=== PATIENT | female | born 1990 | race Caucasian/White ===

== ENCOUNTER 2017-08-29 17:35 | Emergency (ER) | payer OTHER ==
[~2017-08-29] VITALS: Ht 182.9 cm; Wt 183.7 kg
[~2017-08-29 17:35] MED LIST: ALBUTEROL SULF8.5 GM INH; ALBUTEROL2.5 MG/0.5 INH; ALBUTEROL2.5 MG/3 M INH; AMBIEN10 MG PO; AMOXICILLIN500 MG PO; ASPIRIN EC325 MG PO; ATIVAN1 MG PO; CIPRO500 MG PO; CYMBALTA60 MG PO; DOXYCYCLINE HY100 MG PO; FLOVENT DISKU100 MCG INH; HYDROCODON-ACE1 EA14 PO; IMITREX25 MG PO; KETOROLAC TROME10 MG PO; LAMICTAL200 MG PO; LEVOTHYROXINE25 MCG PO; METFORMIN HCL500 MG PO; NAPROXEN500 MG PO; NORCO 5-325 TA1 EACH PO; NORCO 7.5-3251 EACH PO; OMEPRAZOLE20 MG PO; PREDNISONE20 MG PO; PRENATAL PLUS1 EAC2 PO; PROAIR HFA8.5 GM INH; PROPRANOLOL HCL20 MG PO; REGLAN10 MG PO; TESSALON PERLE100 MG PO; TRAZODONE HCL50 MG PO; XANAX0.25 MG PO
[2017-08-29] MEDS ORDERED: QVAR8.7 GM (18:40)
[2017-08-29] MEDS ORDERED: TOPAMAX25 MG PO (18:41)
[2017-09-28] MEDS ORDERED: PANTOPRAZOLE SO40 MG PO (06:21)
== END 2017-08-29 22:16 | disposition home or self-care (01) ==
LOC: ED 17:35
DX: L03.311 Cellulitis of abdominal wall (principal); K21.9 Gastro-esophageal reflux disease without esophagitis; F41.9 Anxiety disorder, unspecified; F32.9 Major depressive disorder, single episode, unspecified; Z88.8 Allergy status to other drugs, medicaments and biological substances; Z88.1 Allergy status to other antibiotic agents; Z88.6 Allergy status to analgesic agent; Z88.5 Allergy status to narcotic agent; Z79.899 Other long term (current) drug therapy; Z79.84 Long term (current) use of oral hypoglycemic drugs
CPT/HCPCS: 76705; 99284

== ENCOUNTER 2018-06-01 08:04 | Emergency (ER) | payer OTHER ==
[~2018-06-01] VITALS: Ht 182.9 cm; Wt 172.4 kg
[~2018-06-01 08:04] MED LIST changes: +FERROUS GLUCON PO; +PANTOPRAZOLE SO40 MG PO; +QVAR8.7 GM; +RANITIDINE HCL150 M1 PO; +TOPAMAX25 MG PO; +VITAMIN D250000 UNIT PO
--- OUTSIDE RECORDS SUMMARY | 2018-06-01 08:06 | XMS ---
PreManage Notification: GAVI GREENE Security Sports Media Events No recent Security Events currently on file CRITERIA MET - [facility] CARE PROVIDERS Alisha Monae Current PAC PHONE: Unknown Deb has no Care Guidelines for this patient. E.Mani VISIT COUNT (12 MO.) 1 Radha Gómez M.C. 3 MARCEL Gomez TOTAL 4 NOTE: Visits indicate total known visits. ED/UCC VISIT TRACKING (12 MO.) 06/01/2018 08:04 MARCEL Maldonado TYPE: Emergency COMPLAINT: - ABD PAIN 03/07/2018 19:40 MARCEL Maldonado TYPE: Emergency COMPLAINT: - VOMITING,ABD PAIN DIAGNOSES: - Unspecified abdominal pain - Allergy status to other drugs, medicaments and biological substances status - Unspecified asthma, uncomplicated - medical terminologist (current) use of oral hypoglycemic drugs - Morbid (severe) obesity due to excess calories - Other fpc (current) drug therapy - Allergy status to narcotic agent status - Allergy status to other antibiotic agents status - Bipolar disorder, unspecified - Gastro-esophageal reflux disease without esophagitis - Migraine, unspecified, not intractable, without status migrainosus - Nausea with vomiting, unspecified 09/01/2017 13:43 [facility] Nicole KRAMER TYPE: Emergency DIAGNOSES: - Cutaneous abscess of abdominal wall - Skin Redness With Swelling - Cellulitis 08/29/2017 17:[address] [facility] [place] TYPE: Emergency COMPLAINT: - RASH/ABSCESS DIAGNOSES: - Localized swelling, mass and lump, trunk - SHELTER (CURRENT) USE OF ORAL HYPOGLYCEMIC DRUGS - Cellulitis of abdominal wall - senior living (current) use of oral hypoglycemic drugs - Allergy status to narcotic agent status - Allergy status to other antibiotic agents status - Allergy status to other drugs, medicaments and biological substances status - Other fpc (current) drug therapy - Allergy status to analgesic agent status - Anxiety disorder, unspecified - Gastro-esophageal reflux disease without esophagitis - Major depressive disorder, single episode, unspecified INPATIENT VISIT TRACKING (12 MO.) No inpatient visits to display in this time frame [email or web address]
[2018-06-01] MEDS ORDERED: ULTRAM50 MG PO (10:49)
[2018-06-01] MEDS ORDERED: BACTRIM DS TAB1 EACH PO (10:49)
== END 2018-06-01 11:10 | disposition home or self-care (01) ==
LOC: ED 08:04
DX: N39.0 Urinary tract infection, site not specified (principal); J45.909 Unspecified asthma, uncomplicated; F31.9 Bipolar disorder, unspecified; K21.9 Gastro-esophageal reflux disease without esophagitis; F41.9 Anxiety disorder, unspecified; Z88.1 Allergy status to other antibiotic agents; Z88.6 Allergy status to analgesic agent; Z88.5 Allergy status to narcotic agent; Z88.8 Allergy status to other drugs, medicaments and biological substances; Z79.84 Long term (current) use of oral hypoglycemic drugs; Z79.899 Other long term (current) drug therapy
CPT/HCPCS: 74177; 80053; 81001; 84703; 85025; 96361; 99284-25; J1170; J2060; J2405; J7030; Q9967

== ENCOUNTER 2018-10-15 15:59 | Observation (INO) | payer OTHER ==
[~2018-10-15] VITALS: Ht 182.9 cm; Wt 162.9 kg
--- NOTE | ~2018-10-15 | DS ---
[facility] [address], [place] [address] Draft ADMISSION DATE: 10/15/2018 DISCHARGE DATE: 10/16/2018 REASON FOR ADMISSION: This morbidly obese 27-year-old white woman has undergone Nadya-en-Y gastric bypass operation by Dr. Norton at [facility] with concurrent laparoscopic cholecystectomy approximately 3 weeks ago. She has had issues postoperatively of difficulty with tolerating oral intake and presented to the emergency room yesterday with protracted nausea, vomiting, and dehydration. She was admitted for further evaluation and care. PHYSICAL EXAMINATION: GENERAL: Shows a morbidly obese white woman, considered about 360 pounds. She has multiple tattoos and piercings. CHEST: Clear. HEART: Regular without murmur. ABDOMEN: Obese, but soft. Incisions are healing well. No sign of infection. There is no focal tenderness. Mild periumbilical tenderness is noted, however. HOSPITAL COURSE: Her emergency room evaluation by Dr. Smith included a CT scan of the abdomen. This showed no sign of internal hernia, free air, or calamitous complication from operation. I was consulted regarding the patient's issues and Dr. Norton, her surgeon in [place] at [facility] had advised an upper GI and hospitalization if possible for rehydration. She was aggressively rehydrated. Notably, her CBC at presentation and subsequently was normal as were her liver enzymes and so on. Her labs remained normal. An amylase was found to be normal as well. On the second day of hospitalization, she underwent upper GI and limited small bowel follow-through. This showed reasonable emptying of the gastric pouch proximally and the area of the Nadya-en-Y jejunojejunostomy showed no sign of impediment to flow either. Admittedly, the duodenal limb was not visualized nor would it necessarily be expected to. She was given liquids once again after long discussion as to the small capacity of her gastric pouch. I conferred with Dr. Norton on the phone regarding these findings who concurred with this approach. The patient has been noted to be somewhat noncompliant initially after operation and advancing her diet a bit too aggressively for her postoperative protocol. PATIENT NAME: GAVI GREENE DISCHARGE SUMMARY DATE OF : 86 REPORT #: [id number] PHYSICIAN: LEYLA FARRELL MD PCP: BHAVIN MCDANIEL PA-C REPORT IS CONFIDENTIAL AND NOT TO BE RELEASED WITHOUT AUTHORIZATION [facility] [address], [place] [address] Draft She will be discharged home and encouraged to maintain hydration with small amounts of liquids. She will resume her protein shakes and the dietitian of Dr. Norton will additionally confer with the patient to tailor a better program for her oral intake so as to avoid recurrent problems. Her discharge medications will remain the same. Of note, she did have 5 white cells per high-power field on the urinalysis, although not frankly suspicious for urinary tract infection necessarily (leukocyte esterase negative). She was given one dose of Ancef as she did complain of urinary burning. MEDICATIONS: Discharge medications will include propranolol 20 mg tablets p.o. b.i.d., Topamax 50 mg p.o. b.i.d., pantoprazole 40 mg p.o. daily, Zofran 4 mg tablet q.6 hours as needed for nausea, Percocet 5/325 one p.o. as needed for pain, and metformin 1000 mg b.i.d. DISCHARGE DIAGNOSES: 1. Postoperative Nadya-en-Y gastric bypass for morbid obesity with dehydration. 2. Protracted vomiting and poor adjustment to gastric bypass operation 3 weeks ago (Dr. Norton at [facility]). 3. Normal upper GI small bowel follow-through following CT scan. FOLLOWUP PLAN: She will return to the ongoing care of her primary provider, [facility] and will be coordinating with her operating surgeon, Dr. Norton and her dietitian for further instructions on dietary modifications. MD JUAN Garibay/RENUKA /[id number] cc: Dr. Norton [facility] Copies: PATIENT NAME: GAVI GREENE DISCHARGE SUMMARY DATE OF : [birth year] REPORT #: [id number] PHYSICIAN: LEYLA FARRELL MD PCP: BHAVIN MCDANIEL PA-C REPORT IS CONFIDENTIAL AND NOT TO BE RELEASED WITHOUT AUTHORIZATION [facility] [address] [place], [place] [address] Draft ~ PATIENT NAME: GAVI GREENE DISCHARGE SUMMARY DATE OF : [birth year] REPORT #: [id number] PHYSICIAN: LEYLA FARRELL MD PCP: BHAVIN MCDANIEL PA-C REPORT IS CONFIDENTIAL AND NOT TO BE RELEASED WITHOUT AUTHORIZATION
[~2018-10-15 15:59] MED LIST changes: +BACTRIM DS TAB1 EACH PO; -TOPAMAX25 MG PO; +TOPAMAX50 MG PO; +ULTRAM50 MG PO
--- OUTSIDE RECORDS SUMMARY | 2018-10-15 16:02 | XMS ---
PreManage Notification: GAVI GREENE Security Personnel And Payroll Technician Events No recent Security Events currently on file CRITERIA MET - [facility] Guidelines - PDMP CARE PROVIDERS BHAVIN MCDANIEL Physician 06/04/2018-Current PHONE: [phone] Bhavin Monae Treatment Current PAC PHONE: Unknown Guidelines Source: [facility] [place] Guidelines Date: 09/24/2018 Care Coordination: Mental health services are being provided by [employer].\T\nbsp; Please contact [employer] with mental health concerns.\T\nbsp; Aaron/Stewart Dominguez: [phone]\T\nbsp; Reece: [phone]. E.D. VISIT COUNT (12 MO.) 3 MARCEL Gomez TOTAL 3 NOTE: Visits indicate total known visits. ED/UCC VISIT TRACKING (12 MO.) 10/15/2018 15:59 [facility] Chavez [place] TYPE: Emergency COMPLAINT: - WEAKNESS, POSS DEHYDRATION 06/01/2018 08:04 [facility] [place] TYPE: Emergency COMPLAINT: - ABD PAIN DIAGNOSES: - Anxiety disorder, unspecified - Allergy status to other drugs, medicaments and biological substances status - Other long-term (current) drug therapy - Bipolar disorder, unspecified - Gastro-esophageal reflux disease without esophagitis - Allergy status to other antibiotic agents status - Allergy status to analgesic agent status - Unspecified asthma, uncomplicated - Urinary tract infection, site not specified - halfway (current) use of oral hypoglycemic drugs - Dysuria - Allergy status to narcotic agent status 03/07/2018 19:40 [facility] [place] TYPE: Emergency COMPLAINT: - VOMITING,ABD PAIN DIAGNOSES: - Unspecified abdominal pain - Allergy status to other drugs, medicaments and biological substances status - Unspecified asthma, uncomplicated - halfway (current) use of oral hypoglycemic drugs - Morbid (severe) obesity due to excess calories - Other long-term (current) drug therapy - Allergy status to narcotic agent status - Allergy status to other antibiotic agents status - Bipolar disorder, unspecified - Gastro-esophageal reflux disease without esophagitis - Migraine, unspecified, not intractable, without status migrainosus - Nausea with vomiting, unspecified INPATIENT VISIT TRACKING (12 MO.) 09/24/2018 10:29 [facility] TYPE: Surgery DIAGNOSES: 39344. Morbid (severe) obesity due to excess calories 87634. Morbid (severe) obesity due to excess calories 35101. Body mass index (BMI) 50-59.9 , adult [email or web address]
[2018-10-15] MEDS ORDERED: PERCOCET 5-3251 EACH PO (16:50)
[2018-10-15] MEDS ORDERED: ZOFRAN4 MG PO (16:50)
[2018-10-15] MEDS ORDERED: GLUCOPHAGE1000 MG PO (16:51)
--- NOTE | 2018-10-16 09:00 | HP ---
[facility] [address], [place] [address] Signed ADMISSION DATE: 10/15/2018 REASON FOR ADMISSION: Dehydration, protracted nausea and vomiting, and history of gastric bypass operation. HISTORY OF PRESENT ILLNESS: This 27-year-old morbidly obese white woman, presented to the emergency room where she was evaluated by Dr. Smith today. She presented with complaints of protracted nausea and vomiting and inability to tolerate oral intake. Three weeks ago, she underwent a bariatric operation, presumably gastric bypass (Nadya-en-Y type I suspect) as well as concurrent laparoscopic cholecystectomy. This was at [facility] by Dr. Norton. The patient noted within two weeks of operation marked epigastric pain following meals. She had been taking Zofran sublingual for nausea and other remedies as outlined by Dr. Norton who has managed her over the phone generally speaking. Unfortunately, she continues to have inability to tolerate oral intake to any great degree. She has had pudding and other such things, but those are not tolerated and even liquids pose a problem now. She has had no fever, chills, or anything to suggest sepsis. Her blood sugars have been about 114 according to the patient who does check them from time to time. Her evaluation in emergency room included a CBC which was normal with a white count of 7.5 and hematocrit of 43.4, platelets of 198,000. Chem profile is normal. Creatinine is 0.78. Liver enzymes are normal. Her urinalysis was also normal, though she did have 5 white cells per high-power field. A CT scan was additionally performed showing patency of gastroenteric and enteroenteric anastomosis without sign of small bowel obstruction. There is considered moderate distention of the fundal portion of the gastric remnant with narrowing of the gastric lumen proximal to this segment suggesting partial or complete obstruction of the gastric remnant at the cardia. My review of the CT scan does not show herniation of the fundus through the hiatus or anything of that sort and I saw no sign of internal herniation. There was nonobstructive left renal calyceal stones and no sign of biliary ductal dilatation. There was surgical absence of the gallbladder as would be expected. REVIEW OF SYSTEMS: The patient herself says she has had vague abdominal pain mostly in the epigastric area, sometimes in the right subcostal, but most generally in the central abdomen in the region of the umbilicus. She has had no hematemesis or blood per rectum. No fever or chills. Electronically Signed By: LEYLA FARRELL MD 10/16/18 0900 PATIENT NAME: GAVI GREENE HISTORY AND PHYSICAL DATE OF : [birth year] REPORT #: [id number] PHYSICIAN: LEYLA FARRELL MD PCP: BHAVIN MCDANIEL PA-C REPORT IS CONFIDENTIAL AND NOT TO BE RELEASED WITHOUT AUTHORIZATION [facility] [address], [place] [address] Signed PHYSICAL EXAMINATION: GENERAL: A morbidly obese white woman who does not look systemically toxic. HEENT: Mucous membranes are dry, though she has had a liter of crystalloid solution. Trachea is midline. CHEST: Shows normal respiratory excursion without wheeze or rhonchi. HEART: Regular. ABDOMEN: Quite massively obese. She has multiple laparoscopic trocar scars that appear uninfected. There appears to be no sign of hernia. She does have vague tenderness, some of it in the epigastric area. She does not have generalized peritonitis. EXTREMITIES: Show no clubbing, cyanosis, or edema. SKIN: Shows multiple tattoos. She has various piercings of her nose and elsewhere. LABORATORY DATA: I have reviewed the CT scan and lab studies myself. ASSESSMENT: She has had symptoms suggestive of a gastric outlet obstruction from the gastric pouch, though this short of time from operation, edematous changes could account for this. Dr. Smith, emergency room physician, did call Dr. Norton at [facility] who happens to be on-call tonight who asked that the patient be admitted for rehydration and consideration for upper GI tomorrow. So as to avoid the expense and other difficulties of transfer for further evaluation and care at [facility], we will accommodate that approach. She shows no sign of internal herniation or other calamitous problem and the symptoms have been going on for several weeks. If contrast studies are not particularly demonstrative of the source of the problem, endoscopic evaluation maybe required. I do not foresee need for re operation acutely, as she may simply be adjusting to the new normal of a very small gastric pouch; Much will depend upon ugi findings tomorrow. MD JUAN Garibay/JAZMINL /[id number] Electronically Signed By: LEYLA FARRELL MD 10/16/18 0900 PATIENT NAME: GAVI GREENE HISTORY AND PHYSICAL DATE OF : 86 REPORT #: [id number] PHYSICIAN: LEYLA FARRELL MD PCP: BHAVIN MCDANIEL PA-C REPORT IS CONFIDENTIAL AND NOT TO BE RELEASED WITHOUT AUTHORIZATION [facility] [address] [place], [place] [address] Signed cc: Tyler Smith MD Department of Bariatric Surgery Dr. Norton at [facility] Copies: TYLER SMITH MD ~ Electronically Signed By: LEYLA FARRELL MD 10/16/18 0900 PATIENT NAME: GAVI GREENE HISTORY AND PHYSICAL DATE OF : [birth year] REPORT #: [id number] PHYSICIAN: ELYLA FARRELL MD PCP: BHAVIN MCDANIEL PA-C REPORT IS CONFIDENTIAL AND NOT TO BE RELEASED WITHOUT AUTHORIZATION
== END 2018-10-16 14:15 | disposition home or self-care (01) ==
LOC: ED 15:59 → MS 16:00
PROVIDERS: ADMIT Surgery
DX: K91.0 Vomiting following gastrointestinal surgery (principal); E86.0 Dehydration; K21.9 Gastro-esophageal reflux disease without esophagitis; E66.01 Morbid (severe) obesity due to excess calories; G43.909 Migraine, unspecified, not intractable, without status migrainosus; Z98.84 Bariatric surgery status; Z88.1 Allergy status to other antibiotic agents; Z88.5 Allergy status to narcotic agent; Z88.8 Allergy status to other drugs, medicaments and biological substances; Z79.84 Long term (current) use of oral hypoglycemic drugs; Z79.891 Long term (current) use of opiate analgesic; Z79.899 Other long term (current) drug therapy
CPT/HCPCS: 36415; 74177; 74249; 80053; 81001; 82150; 83690; 83735; 84703; 85025; 96361; 96372; 96375; 96376; 99285-25; G0378; J0131; J0690; J1170; J1644; J2405; J2550; J3411; J7030; J7120; Q9967

== ENCOUNTER 2019-06-03 19:42 | Emergency (ER) | payer OTHER ==
[~2019-06-03] VITALS: Ht 180.3 cm; Wt 104.3 kg
[~2019-06-03 19:42] MED LIST changes: +GLUCOPHAGE1000 MG PO; +PERCOCET 5-3251 EACH PO; +PROMETHAZINE HC25 M1 PO; +ZOFRAN4 MG PO
--- OUTSIDE RECORDS SUMMARY | 2019-06-03 19:44 | XMS ---
PreManage Notification: GAVI GREENE Security Air Brush Decorator Events No recent Security Events currently on file CRITERIA MET - [facility] Guidelines - PDMP CARE PROVIDERS BHAVIN MCDANIEL Physician 06/04/2018-Current PHONE: [phone] Bhavin Monae Treatment Current PAC PHONE: Unknown Guidelines Source: [email or web address] Guidelines Date: 09/24/2018 Care Coordination: Mental health services are being provided by [employer].\T\nbsp; Please contact [employer] with mental health concerns.\T\nbsp; Aaron/Stewart Dominguez: \T\nbsp; Reece: [phone]. E.D. VISIT COUNT (12 MO.) [address] [facility] TOTAL 2 NOTE: Visits indicate total known visits. ED/UCC VISIT TRACKING (12 MO.) 06/03/2019 19:42 [facility] [place] TYPE: Emergency COMPLAINT: - POST OP ISSUE 10/15/2018 15:59 [facility] [place] TYPE: Emergency COMPLAINT: - WEAKNESS, POSS DEHYDRATION INPATIENT VISIT TRACKING (12 MO.) 10/15/2018 16:00 MARCEL Maldonado TYPE: Observation COMPLAINT: - ABD PAIN DIAGNOSES: - Gastro-esophageal reflux disease without esophagitis - Morbid (severe) obesity due to excess calories - Bariatric surgery status - Vomiting following gastrointestinal surgery - Nausea with vomiting, unspecified - halfway (current) use of opiate analgesic - Allergy status to narcotic agent status - Dehydration - halfway (current) use of oral hypoglycemic drugs - Other care home (current) drug therapy - Allergy status to other antibiotic agents status - Migraine, unsp, not intractable, without status migrainosus - Allergy status to oth drug/meds/biol subst status 09/24/2018 10:29 [facility] TYPE: Surgery DIAGNOSES: 31211. Morbid (severe) obesity due to excess calories 83168. Morbid (severe) obesity due to excess calories 53577. Body mass index (BMI) 50.0-59.9, adult [email or web address]
[2019-06-03] MEDS ORDERED: HYDROXYZINE HCL25 MG PO (20:10)
[2019-06-03] MEDS ORDERED: PROZAC40 MG PO (20:11)
[2019-06-03] MEDS ORDERED: LAMICTAL25 MG PO (20:11)
[2019-06-03] MEDS ORDERED: CATAPRES0.1 MG PO (20:12)
[2019-06-03] MEDS ORDERED: MIRTAZAPINE7.5 MG PO (20:12)
[2019-06-03] MEDS ORDERED: QVAR REDIHALE10.6 G1 INH (20:12)
[2019-06-03] MEDS ORDERED: ACETAMINOPHEN500 MG PO (20:57)
[2019-06-03] MEDS ORDERED: ADULT GLYCERIN1 EACH PR (20:57)
[2019-06-03] MEDS ORDERED: DILAUDID1 MG/ML GT (20:58)
[2019-06-03] MEDS ORDERED: PROCHLORPERAZIN10 MG (20:59)
[2019-06-03] MEDS ORDERED: ONDANSETRON ODT4 MG PO (20:59)
[2019-06-03] MEDS ORDERED: GABAPENTIN250 MG/5 M GT (21:01)
[2019-06-03] MEDS ORDERED: TRANSDERM-SCOP1 EACH TD (21:02)
[2019-06-03] MEDS ORDERED: DIAZEPAM5 MG/5 M1 PO (21:02)
[2019-06-03] MEDS ORDERED: MINERAL OIL EN133 ML PR (21:04)
[2019-06-03] MEDS ORDERED: MILK OF MA400 MG/5 M PO (21:04)
[2019-06-03] MEDS ORDERED: NARCAN4 MG INH (21:04)
[2019-06-03] MEDS ORDERED: PROMETHAZINE HC25 M1 PO (21:06)
== END 2019-06-03 23:13 | disposition home or self-care (01) ==
LOC: ED 19:42
DX: K94.23 Gastrostomy malfunction (principal); J45.909 Unspecified asthma, uncomplicated; F31.9 Bipolar disorder, unspecified; K21.9 Gastro-esophageal reflux disease without esophagitis; G43.909 Migraine, unspecified, not intractable, without status migrainosus; F32.9 Major depressive disorder, single episode, unspecified; F41.9 Anxiety disorder, unspecified; Z88.1 Allergy status to other antibiotic agents; Z88.8 Allergy status to other drugs, medicaments and biological substances; Z88.5 Allergy status to narcotic agent; Z79.899 Other long term (current) drug therapy
CPT/HCPCS: 80053; 85025; 96361; 96374; 96375; 96376; 99283-25; J1170; J3360; J7030

== ENCOUNTER 2019-06-06 20:51 | Emergency (ER) | payer OTHER ==
[~2019-06-06] VITALS: Ht 180.3 cm; Wt 104.3 kg
[~2019-06-06 20:51] MED LIST changes: +ACETAMINOPHEN500 MG PO; +ADULT GLYCERIN1 EACH PR; +CATAPRES0.1 MG PO; +DIAZEPAM5 MG/5 M1 PO; +DILAUDID1 MG/ML GT; +GABAPENTIN250 MG/5 M GT; +HYDROXYZINE HCL25 MG PO; +LAMICTAL25 MG PO; +MILK OF MA400 MG/5 M PO; +MINERAL OIL EN133 ML PR; +MIRTAZAPINE7.5 MG PO; +NARCAN4 MG INH; +ONDANSETRON ODT4 MG PO; +PROCHLORPERAZIN10 MG; +PROZAC40 MG PO; +QVAR REDIHALE10.6 G1 INH; +TRANSDERM-SCOP1 EACH TD
--- OUTSIDE RECORDS SUMMARY | 2019-06-06 20:54 | XMS ---
PreManage Notification: GAVI GREENE Security Tilt Wall Supervisor Events No recent Security Events currently on file CRITERIA MET - [facility] - 2 Visits in 30 Days CARE PROVIDERS BHAVIN MCDANIEL Physician 06/04/2018-Current PHONE: [phone] Bhavin Monae Treatment Current PAC PHONE: Unknown Guidelines Source: [facility] [employer] [facility] Guidelines Date: 09/24/2018 Care Coordination: Mental health services are being provided by [employer].\T\nbsp; Please contact [employer] with mental health concerns.\T\nbsp; Aaron/Stewart Dominguez: \T\nbsp; Reece: [phone]. E.D. VISIT COUNT (12 MO.) 3 MARCEL Gomez TOTAL 3 NOTE: Visits indicate total known visits. ED/UCC VISIT TRACKING (12 MO.) 06/06/2019 20:52 [facility] [place] TYPE: Emergency COMPLAINT: - POST OP PROBLEM 06/03/2019 19:42 [facility] [place] TYPE: Emergency COMPLAINT: - POST OP ISSUE DIAGNOSES: - Other intermediate accountant (current) drug therapy - Anxiety disorder, unspecified - Gastrostomy malfunction - Major depressive disorder, single episode, unspecified - Allergy status to oth drug/meds/biol subst status - Allergy status to other antibiotic agents status - Allergy status to narcotic agent status - Unspecified asthma, uncomplicated - Migraine, unsp, not intractable, without status migrainosus - Bipolar disorder, unspecified - Gastro-esophageal reflux disease without esophagitis 10/15/2018 15:59 [facility] [place] TYPE: Emergency COMPLAINT: - WEAKNESS, POSS DEHYDRATION INPATIENT VISIT TRACKING (12 MO.) 10/15/2018 16:00 [facility] TYPE: Observation COMPLAINT: - ABD PAIN DIAGNOSES: - Gastro-esophageal reflux disease without esophagitis - Morbid (severe) obesity due to excess calories - Bariatric surgery status - Vomiting following gastrointestinal surgery - Nausea with vomiting, unspecified - MCC (current) use of opiate analgesic - Allergy status to narcotic agent status - Dehydration - MCC (current) use of oral hypoglycemic drugs - Other intermediate accountant (current) drug therapy - Allergy status to other antibiotic agents status - Migraine, unsp, not intractable, without status migrainosus - Allergy status to oth drug/meds/biol subst status 09/24/2018 10:29 [facility] TYPE: Surgery DIAGNOSES: 01844. Morbid (severe) obesity due to excess calories 30384. Morbid (severe) obesity due to excess calories 06206. Body mass index (BMI) 50.0-59.9, adult [email or web address]
[2019-06-06] MEDS ORDERED: BARIATRIC MV-I1 EACH PO (21:28)
[2019-06-06] MEDS ORDERED: HAIR SKIN NAIL1 EACH PO (21:28)
== END 2019-06-07 00:57 | disposition home or self-care (01) ==
LOC: ED 20:51
DX: Z48.01 Encounter for change or removal of surgical wound dressing (principal); K21.9 Gastro-esophageal reflux disease without esophagitis; G43.909 Migraine, unspecified, not intractable, without status migrainosus; J45.909 Unspecified asthma, uncomplicated; F41.9 Anxiety disorder, unspecified; F32.9 Major depressive disorder, single episode, unspecified; Z79.899 Other long term (current) drug therapy
CPT/HCPCS: 81001; 87077; 87088; 87186; 96372; 99283-25; J3010

== ENCOUNTER 2019-06-09 21:08 | Emergency (ER) | payer OTHER ==
[~2019-06-09] VITALS: Ht 180.3 cm; Wt 104.3 kg
[~2019-06-09 21:08] MED LIST changes: +BARIATRIC MV-I1 EACH PO; +HAIR SKIN NAIL1 EACH PO
--- OUTSIDE RECORDS SUMMARY | 2019-06-09 21:12 | XMS ---
PreManage Notification: GAVI GREENE Security Nnp Events No recent Security Events currently on file CRITERIA MET - [facility] Guidelines - PDMP CARE PROVIDERS BHAVIN MCDANIEL Physician 06/04/2018-Current PHONE: [phone] Bhavin Monae Treatment Current PAC PHONE: Unknown Guidelines Source: [facility] Guidelines Date: 09/24/2018 Care Coordination: Mental health services are being provided by [employer].\T\nbsp; Please contact [employer] with mental health concerns.\T\nbsp; Aaron/Stewart Dominguez: [phone]\T\nbsp; Reece: [phone]. E.D. VISIT COUNT (12 MO.) [address] [facility] TOTAL 4 NOTE: Visits indicate total known visits. ED/UCC VISIT TRACKING (12 MO.) 06/09/2019 21:09 [facility] [place] TYPE: Emergency COMPLAINT: - ABD PAIN/FEEDING TUBE PROBLEM 06/06/2019 20:52 [facility] TYPE: Emergency COMPLAINT: - POST OP PROBLEM 06/03/2019 19:42 [facility] TYPE: Emergency COMPLAINT: - POST OP ISSUE DIAGNOSES: - Other termite technician (current) drug therapy - Anxiety disorder, unspecified [...] surgery - Nausea with vomiting, unspecified - alf (current) use of opiate analgesic - Allergy status to narcotic agent status - Dehydration - alf (current) use of oral hypoglycemic drugs - Other termite technician (current) drug therapy - Allergy status to other antibiotic agents status - Migraine, unsp, not intractable, without status migrainosus - Allergy status to oth drug/meds/biol subst status 09/24/2018 10:29 [facility] TYPE: Surgery DIAGNOSES: 69487. Morbid (severe) obesity due to excess calories 70702. Morbid (severe) obesity due to excess calories 77325. Body mass index (BMI) 50.0-59.9, adult [email or web address]
== END 2019-06-09 23:26 | disposition home or self-care (01) ==
LOC: ED 21:08
DX: Z48.815 Encounter for surgical aftercare following surgery on the digestive system (principal); F31.9 Bipolar disorder, unspecified; K21.9 Gastro-esophageal reflux disease without esophagitis; G43.909 Migraine, unspecified, not intractable, without status migrainosus; F32.9 Major depressive disorder, single episode, unspecified; F41.9 Anxiety disorder, unspecified; Z88.8 Allergy status to other drugs, medicaments and biological substances; Z88.1 Allergy status to other antibiotic agents; Z88.5 Allergy status to narcotic agent; Z79.899 Other long term (current) drug therapy; Z79.891 Long term (current) use of opiate analgesic
CPT/HCPCS: 99283

== ENCOUNTER 2019-06-16 14:32 | Emergency (ER) | payer OTHER ==
[~2019-06-16] VITALS: Ht 180.3 cm; Wt 104.3 kg
--- OUTSIDE RECORDS SUMMARY | 2019-06-16 14:36 | XMS ---
PreManage Notification: GAVI GREENE Security Adobe Architect Events No recent Security Events currently on file CRITERIA MET - [facility] - Has Care Guidelines - PDMP - [facility] - 2 Visits in 30 Days CARE PROVIDERS BHAVIN MCDANIEL Physician 06/04/2018-Current PHONE: [phone] Bhavin Monae Treatment Current PAC PHONE: Unknown Guidelines Source: [facility] Guidelines Date: 09/24/2018 Care Coordination: Mental health services are being provided by [employer].\T\nbsp; Please contact [employer] with mental health concerns.\T\nbsp; Aaron/Stewart Dominguez: \T\nbsp; Reece: [phone]. E.D. VISIT COUNT (12 MO.) [address] [facility] TOTAL 5 NOTE: Visits indicate total known visits. ED/UCC VISIT TRACKING (12 MO.) 06/16/2019 14:33 [facility] TYPE: Emergency COMPLAINT: - ANXIETY 06/09/2019 21:09 [facility] TYPE: Emergency COMPLAINT: - ABD PAIN/FEEDING TUBE PROBLEM DIAGNOSES: - detention (current) use of opiate analgesic - Allergy status to oth drug/meds/biol subst status - Allergy status to narcotic agent status - Gastro-esophageal reflux disease without esophagitis - Encntr for surgical aftcr following surgery on the dgstv sys - Major depressive disorder, single episode, unspecified - Encntr for surgical aftcr following surgery on the dgstv sys - Bipolar disorder, unspecified - Allergy status to other antibiotic agents status - Migraine, unsp, not intractable, without status migrainosus - Other moth exterminator (current) drug therapy - Anxiety disorder, unspecified 06/06/2019 20:52 [facility] TYPE: Emergency COMPLAINT: - POST OP PROBLEM DIAGNOSES: - Gastro-esophageal reflux disease without esophagitis - Migraine, unsp, not intractable, without status migrainosus - Encounter for change or removal of surgical wound dressing - Other custodial (current) drug therapy - Encounter for change or removal of surgical wound dressing - Anxiety disorder, unspecified - Unspecified asthma, uncomplicated - Major depressive disorder, single episode, unspecified 06/03/2019 19:42 [facility] TYPE: Emergency COMPLAINT: - POST OP ISSUE DIAGNOSES: - Other custodial (current) drug therapy - Anxiety disorder, unspecified [...] surgery - Nausea with vomiting, unspecified - supervisor intermediates (current) use of opiate analgesic - Allergy status to narcotic agent status - Dehydration - detention (current) use of oral hypoglycemic drugs - Other custodial (current) drug therapy - Allergy status to other antibiotic agents status - Migraine, unsp, not intractable, without status migrainosus - Allergy status to oth drug/meds/biol subst status 09/24/2018 10:29 [facility] TYPE: Surgery DIAGNOSES: 59244. Morbid (severe) obesity due to excess calories 57939. Morbid (severe) obesity due to excess calories 42484. Body mass index (BMI) 50.0-59.9, adult [email or web address]
== END 2019-06-16 17:23 | disposition home or self-care (01) ==
LOC: ED 14:32
DX: R06.4 Hyperventilation (principal); R07.9 Chest pain, unspecified; J45.909 Unspecified asthma, uncomplicated; K21.9 Gastro-esophageal reflux disease without esophagitis; G43.909 Migraine, unspecified, not intractable, without status migrainosus; F32.9 Major depressive disorder, single episode, unspecified; Z88.8 Allergy status to other drugs, medicaments and biological substances; Z88.1 Allergy status to other antibiotic agents; Z88.5 Allergy status to narcotic agent; Z79.899 Other long term (current) drug therapy
CPT/HCPCS: 96374; 96375; 99284-25; J1170; J2060

== ENCOUNTER 2019-08-09 23:14 | Emergency (ER) | payer OTHER ==
[~2019-08-09] VITALS: Ht 180.3 cm; Wt 104.3 kg
--- OUTSIDE RECORDS SUMMARY | 2019-08-09 23:16 | XMS ---
PreManage Notification: GAVI GREENE Security Hvac Lead Events No recent Security Events currently on file CRITERIA MET - [facility] Guidelines - [facility] CARE PROVIDERS BHAVIN MCDANIEL Physician Basket Maker 06/04/2018-Current PHONE: [phone] LAKIA AGRAWAL Nurse Practitioner: Acute Care 06/17/2019-Current PHONE: [phone] Guidelines Source: [facility] Guidelines Date: 09/24/2018 Care Coordination: Mental health services are being provided by [facility].\T\nbsp; Please contact [facility] with mental health concerns.\T\nbsp; Aaron/Stewart Dominguez: \T\nbsp; Reece: [phone]. E.D. VISIT COUNT (12 MO.) [address] [facility] TOTAL 6 NOTE: Visits indicate total known visits. ED/UCC VISIT TRACKING (12 MO.) 08/09/2019 23:14 [facility] [place] TYPE: Emergency COMPLAINT: - FEEDING TUBE PROBLEM 06/16/2019 14:33 [facility] [place] TYPE: Emergency COMPLAINT: - ANXIETY DIAGNOSES: - Unspecified asthma, uncomplicated - Allergy status to other antibiotic agents status - Allergy status to narcotic agent status - Other intermission coordinator (current) drug therapy - Migraine, unspecified, not intractable, without status migrai - Allergy status to other drugs, medicaments and biological sub - Hyperventilation - Major depressive disorder, single episode, unspecified - Gastro-esophageal reflux disease without esophagitis - Anxiety disorder, unspecified - Chest pain, unspecified 06/09/2019 21:09 [facility] [place] TYPE: Emergency COMPLAINT: - ABD PAIN/FEEDING TUBE PROBLEM DIAGNOSES: - intermission coordinator (current) use of opiate analgesic - Allergy status to other drugs, medicaments and biological sub - Allergy status to narcotic agent status - Gastro-esophageal reflux disease without esophagitis - Encounter for surgical aftercare following surgery on the dig - Major depressive disorder, single episode, unspecified - Encounter for surgical aftercare following surgery on the dig - Bipolar disorder, unspecified - Allergy status to other antibiotic agents status - Migraine, unspecified, not intractable, without status migrai - Other senior care (current) drug therapy - Anxiety disorder, unspecified 06/06/2019 20:52 [facility] [place] TYPE: Emergency COMPLAINT: - POST OP PROBLEM DIAGNOSES: - Gastro-esophageal reflux disease without esophagitis - Migraine, unspecified, not intractable, without status migrai - Encounter for change or removal of surgical wound dressing - Other senior care (current) drug therapy - Encounter for change or removal of surgical wound dressing - Anxiety disorder, unspecified - Unspecified asthma, uncomplicated - Major depressive disorder, single episode, unspecified 06/03/2019 19:42 [facility] [place] TYPE: Emergency COMPLAINT: - POST OP ISSUE DIAGNOSES: - Other senior care (current) drug therapy - Anxiety disorder, unspecified - Gastrostomy malfunction - Major depressive disorder, single episode, unspecified - Allergy status to other drugs, medicaments and biological sub - Allergy status to other antibiotic agents status - Allergy status to narcotic agent status - Unspecified asthma, uncomplicated - Migraine, unspecified, not intractable, without status migrai - Bipolar disorder, unspecified - Gastro-esophageal reflux [...] surgery - Nausea with vomiting, unspecified - penitentiary (current) use of opiate analgesic - Allergy status to narcotic agent status - Dehydration - penitentiary (current) use of oral hypoglycemic drugs - Other senior care (current) drug therapy - Allergy status to other antibiotic agents status - Migraine, unspecified, not intractable, without status migrai - Allergy status to other drugs, medicaments and biological sub 09/24/2018 10:29 [facility] TYPE: Surgery DIAGNOSES: 37624. Morbid (severe) obesity due to excess calories 40230. Morbid (severe) obesity due to excess calories 68331. Body mass index (BMI) 50-59.9 , adult [email or web address]
[2019-08-09] MEDS ORDERED: GEODON20 MG PO (23:30)
== END 2019-08-10 00:31 | disposition home or self-care (01) ==
LOC: ED 23:14
DX: K94.29 Other complications of gastrostomy (principal); R10.9 Unspecified abdominal pain; K21.9 Gastro-esophageal reflux disease without esophagitis; J45.909 Unspecified asthma, uncomplicated; G43.909 Migraine, unspecified, not intractable, without status migrainosus; F41.9 Anxiety disorder, unspecified; F32.9 Major depressive disorder, single episode, unspecified; Z88.1 Allergy status to other antibiotic agents; Z88.5 Allergy status to narcotic agent; Z79.899 Other long term (current) drug therapy
CPT/HCPCS: 80053; 83690; 84703; 85025; 99283

== ENCOUNTER 2019-11-06 02:39 | Emergency (ER) | payer OTHER ==
[~2019-11-06] VITALS: Ht 180.3 cm; Wt 104.3 kg
--- OUTSIDE RECORDS SUMMARY | ~2019-11-06 | XMS | Encounter Summary ---
Demographics + + + | Address | [address] | | | [place] [address] | + + + | Home Phone | | + + + | Preferred Language | Unknown | + + + | Marital Status | | + + + | Church Affiliation | NRP | + + + | Race | White | + + + | Ethnic Group | Not or | + + + Author + + + | Author | [facility] | + + + | Organization | [facility] | + + + | Address | Unknown | + + + | Phone | Unavailable | + + + Support + + +---------+ + | Name | Relationship | Address | Phone | + + +---------+ + | Jeovanny Hernández | ECON | Unknown | | + + +---------+ + Care Team Providers + +------+ + | Care Associate Field Service Engineer Name | Role | Phone | + +------+ + | Alisha Stovall PA-C | PCP | | + +------+ + Encounter Details +--------+ + + + + | Date | Type | Department | Care Team | Description | +--------+ + + + + | 06/04/ | MyChart | Digestive Health | Kenan Norton, | photos | | 2020 | Encounter | [facility] [address] | MD [address] | | | | | [address] | [facility] [place] | | | | | for Health and | [address] | | | | | Healing, [address] | [phone] | | | | | [place], [place] | | | | | | [address] | | | | | | [phone] | | | +--------+ + + + + Social History + +-------+ [...] | +--------+ + + + + | 11/13/ | Office | Gastroenterology | Cassidy Schneider, | | | 2019 | Visit | | [address] | | | | | | [place], [place] | | | | | | [address] | | | | | | [phone] | | | | | | | | +--------+ + + + + | 11/17/ | Video/TeleH | Pain Management | Florencio Lockett, | | | 2019 | ealth-Sched | | PhD [address] | | | | uled | | [place], [place] | | | | | | [address] | | | | | | [phone] | | | | | | | | +--------+ + + + + | 12/01/ | Video/TeleH | Pain Management | Florencio Lockett, | | | 2019 | ealth-Sched | | PhD [address] | | | | uled | | [place], [place] | | | | | | [address] | | | | | | [phone] | | | | | | | | +--------+ + + + + | 01/06/ | Office | Plastic Surgery | Kuldip Harrell MD | | | 2019 | Visit | | [address] | | | | | | [place], [place] | | | | | | [address] | | | | | | [phone] | | | | | | | | +--------+ + + + + documented as of this encounter Visit Diagnoses Not on filedocumented in this encounter"
--- OUTSIDE RECORDS SUMMARY | ~2019-11-06 | XMS | Encounter Summary ---
Demographics + + + | Address | [address] | | | [place] [address] | + + + | Home Phone | | + + + | Preferred Language | Unknown | + + + | Marital Status | | + + + | Hoahaoism Affiliation | NRP | + + + | Race | White | + + + | Ethnic Group | Not or | + + + Author + + + | Author | [facility] | + + + | Organization | [facility] | + + + | Address | Unknown | + + + | Phone | Unavailable | + + + Support + + +---------+ + | Name | Relationship | Address | Phone | + + +---------+ + | Jeovanny Hernández | ECON | Unknown | | + + +---------+ + Care Team Providers + +------+ + | Care Hatchery Worker Name | Role | Phone | + +------+ + | Alisha Stovall PA-C | PCP | | + +------+ + Reason for Visit + + + | Reason | Comments | + + + | Medical Records | | | Review | | + + + Encounter Details +--------+ + + + + | Date | Type | Department | Care Team | Description | +--------+ + + + + | 06/11/ | Abstract | Digestive Health | Clinic, Surgery | Medical Records | | 2020 | | [facility] [place] [address] | | Review | | | | [address] [facility] | | | | | | for Health and | | | | | | Healing, [address] | | | | | | [place], [place] | | | | | | [address] | | | | | | [phone] | | | +--------+ + + + [...] Gastroenterology | Cassidy Schneider, | | | 2020 | Visit | | [address] | | | | | | [place], [place] | | | | | | [address] | | | | | | [phone] | | | | | | | | +--------+ + + + + | 11/17/ | Video/TeleH | Pain Management | Florencio Lockett, | | | 2019 | ealth-Sched | | PhD [address] | | | | uled | | [place], [place] | | | | | | [address] | | | | | | [phone] | | | | | | | | +--------+ + + + + | 12/01/ | Video/TeleH | Pain Management | Florencio Lockett, | | | 2019 | ealth-Sched | | PhD [address] | | | | uled | | [place], [place] | | | | | | [address] | | | | | | [phone] | | | | | | | | +--------+ + + + + | 01/06/ | Office | Plastic Surgery | Kuldip Harrell MD | | | 2019 | Visit | | [address] | | | | | | [place], [place] | | | | | | [address] | | | | | | [phone] | | | | | | | | +--------+ + + + + documented as of this encounter Visit Diagnoses Not on filedocumented in this encounter"
--- OUTSIDE RECORDS SUMMARY | ~2019-11-06 | XMS | Encounter Summary ---
Demographics + + + | Address | [address] | | | [place] [address] | + + + | Home Phone | | + + + | Preferred Language | Unknown | + + + | Marital Status | | + + + | Islam Affiliation | NRP | + + + | Race | White | + + + | Ethnic Group | Not or | + + + Author + + + | Author | [facility] | + + + | Organization | [facility] | + + + | Address | Unknown | + + + | Phone | Unavailable | + + + Support + + +---------+ + | Name | Relationship | Address | Phone | + + +---------+ + | Jeovanny Hernández | ECON | Unknown | | + + +---------+ + Care Team Providers + +------+ + | Care Wagon Person Name | Role | Phone | + [...] | | | | | | | DE | | | | | | | ESOPHAGEAL | | | | | | | MOTILITY | | | | | | | STUDY | | | | | | | W/INTERP AND | | | | | | | REPORT DE | | | | | | | G-ESOPH | | | | | | | REFLX TST | | | | | | | W/ELECTROD | | | +--------+--------+ + + + + Encounter Details +--------+ + + + + | Date | Type | Department | Care Team | Description | +--------+ + + + + | 04/12/ | Hospital | Multi-Specialty | Kenan Norton, | | | 2019 | Encounter | Procedural Unit | MD [address] | | | | | ([facility] at [facility] [address] | [place], [place] | | | | | [address] | [address] | | | | | Mailcode: [place] | [phone] | | | | | [facility] and | | | | | | [address] | | | | | | [place], [place] | | | | | | [address] | | | | | | [phone] | | | +--------+ + + + [...] + + documented as of this encounter Last Filed Vital Signs + + + + + | Vital Sign | Reading | Time Taken | Comments | + + + + + | Blood Pressure | 148/60 | 04/12/2019 2:09 PM | | | | | PST | | + + + + + | Pulse | 72 | 04/12/2019 2:09 PM | | | | | PST | | + + + + + | Temperature | 36.7 C (98 F) | 04/12/2019 1:25 PM | | | | | PST | | + + + + + | Respiratory Rate | - | - | | + + + + + | Oxygen Saturation | 0% | 04/12/2019 2:09 PM | | | | | PST | | + + + + + | Inhaled Oxygen | - | - | | | Concentration | | | | + + + + + | Weight | - | - | | + + + + + | Height | 180.3 cm (5' 11") | 04/12/2019 2:09 PM | | | | | PST | | + + + + + | Body Mass Index | - | - | | + + + + + documented in this encounter Functional Status + + + [...] + + documented as of this encounter Discharge Instructions Instructions Roberta German RN - 04/12/2019Home Care Instructions after Esophageal Motility Stud y You may resume your normal diet and medications unless told otherwise. Common After Effects Sore throat. You may treat it with throat lozenges and/or gargle with warm salt water. Complications Call your GI doctor if you have: Abnormal pain or any new unexplained symptoms. Shortness of breath, chest or neck pain. Vomiting blood Fever above 101.5 For any questions related to your procedure, call Monday- Monday 8:00- 4:30 Call the endoscopy department toll free ext. [phone] or After business hours or on weekends and holiday Hospital Sales Advisor toll free [phone] ext. [phone] and have the GI doctor plant operations engineer paged. The GI Procedure Nurse who performed your procedure is: Roberta German Your referring provider will receive copies of the procedure report in about 1- 2 weeks. documented in this encounter Medications at Time of Discharge + + + +---------+ + + | Medication | Sig | Dispensed | Refills | Start | End Date | | | | | | Date | | + + + +---------+ + + | beclomethasone | Inhale 1 puff two | | 0 | | | | (QVAR) 40 | times daily. | | | | | | mcg/actuation | Indications: | | | | | | inhalation | Controller | | | | | | aerosolIndications: | Medication for | | | | | | maintenance therapy | Asthma | | | | | | for asthma | | | | | | + + + +---------+ + + | FLUoxetine 40 mg | Take 40 mg by mouth | | 0 | | | | oral capsule | once daily. | | | | | + + + +---------+ + + | pantoprazole 20 mg | Take 1 tablet by | 60 | 2 | 04/10/20 | | | oral tablet,delayed | mouth two times | tablet | | 19 | | | release | daily. Indications: | | | | | | (DR/EC)Indications: | gastroesophageal | | | | | | gastroesophageal | reflux disease | | | | | | reflux disease | | | | | | + + + +---------+ + + | topiramate 50 mg | 50 mg two times | | 0 | 08/24/19 | | | oral | daily. Indications: | | | 19 | | | tabletIndications: | Migraine Prevention | | | | | | migraine prevention | | | | | | + + + +---------+ + + documented as of this encounter Plan of Treatment +--------+ + + + + | Date | Type | Specialty | Care Team | Description | +--------+ + + + + | 11/13/ | Office | Gastroenterology | Cassidy Schneider, | | | 2019 | Visit | | [address] | | | | | | [place], [place] | | | | | | [address] | | | | | | [phone] | | | | | | | | +--------+ + + + + | 11/17/ | Video/TeleH | Pain Management | Florencio Lockett, | | | 2019 | ealth-Sched | | PhD [address] | | | | uled | | [place], [place] | | | | | | [address] | | | | | | [phone] | | | | | | | | +--------+ + + + + | 12/01/ | Video/TeleH | Pain Management | Florencio Lockett, | | | 2019 | ealth-Sched | | PhD [address] | | | | uled | | [place], [place] | | | | | | [address] | | | | | | [phone] | | | | | | | | +--------+ + + + + | 01/06/ | Office | Plastic Surgery | Kuldip Harrell MD | | | 2019 | Visit | | [address] | | | | | | [place], [place] | | | | | | [address] | | | | | | [phone] | | | | | | | | +--------+ + + + + documented as of this encounter Procedures + +--------+ + + + | Procedure Name | Priori | Date/Time | Associated Diagnosis | Comments | | | ty | | | | + +--------+ + + + | ESOPHAGEAL MANOMETRY | Routin | 04/12/2019 | S/P gastric bypass | Results for this | | | e | 2:51 PM | Epigastric pain | procedure are in the | | | | PST | Decreased oral | results section. | | | | | intake | | | | | | Gastroesophageal | | | | | | reflux disease, | | | | | | esophagitis presence | | | | | | not specified | | + +--------+ + + + documented in this encounter Results ESOPHAGEAL MANOMETRY (04/12/2019 2:51 PM PST) + + | Specimen | + + | | + + + +-- + | Narrative | P erformed At | + +-- + | MRN: | [facility] | | [id number] Date: 04/12/2019Patient Name: Maria De Jesus AnnaOrder #: | [facility] | | [id number] of : 1990CSN: [id number] Type: | | | AmbulatoryRoom: 11Procedure: High Resolution | | | esophageal manometryIndications: Esophageal dysphagia, | | | Suspected esophageal reflux, For | | | therapy of esophageal refluxProviders: RUBEN STUBBS MD | | | (Doctor), ROBERTA GERMAN RN (Nurse)Referring MD: KENAN Chavarria | | | OMEGA, MDRequesting Provider: Medicines: Lidocaine | | | sprayComplications: No immediate complications.Procedure: | | | After obtaining informed consent, the manometry catheter | | | was inserted. The esophageal manometry | | | was accomplished without difficulty. | | | The patient tolerated the procedure | | | well.Estimated Blood Loss: Estimated blood loss: none.Findings: | | | LOWER ESOPHAGEAL SPHINCTER (LES): - Proximal LES border: | | | 44 cm from nares. - LES Span: 4 cm. - Pressure Inversion | | | Point: 45.5 cm from nares. - Hiatal hernia: absent. - | | | Basal / Resting LES pressure: 2.4 mmHg (eSleeve). - Residual LES | | | pressure (Integrated Relaxation Pressure): 4.4 mmHg | | | (integrated relaxation). - LES relaxation: Abnormal. | | | ESOPHAGEAL BODY (motility, peristaltic contractions): - Number | | | of swallows evaluated: 10. - Normal (effective esophageal | | | peristalsis): 30 %. - Hypotensive: 0 %. - Hypertensive: 0 | | | %. - Failed: 70 %. UPPER ESOPHAGEAL SPHINCTER (UES): | | | - Basal / Resting UES pressure: 94.5 mmHg (mean, normal range 30-120 | | | mmHg). BOLUS CLEARANCE 50% of wet swallows are | | | complete based on esophageal impedance testing Gastroesophageal | | | reflux is present based on esophageal impedance testing.Impression: | | | - Manometry indicating ineffective esophageal motility | | | per chicago classification v3.0. | | | - Low baseline impedance in distal esophagus | | | suggestive of esophagitis or burns's | | | esophagus.Recommendation: - Return to referring | | | physician.Attending Participation: I have reviewed and | | | interpreted the results of the above documented diagnostic | | | study.RUBEN STUBBS MD04/17/2019 6:10:42 PMThis report has been signed | | | electronically.Number of Addenda: 0Note Initiated On: 04/12/2019 2:51 | | | PM | | | - Basal / Resting UES pressure: 94.5 mmHg (mean, normal range 30-120 | | | mmHg). | | | BOLUS CLEARANCE | | | 50% of wet swallows are complete based on esophageal impedance testing | | | Gastroesophageal reflux is present based on esophageal impedance testing. | | |Impression: - Manometry indicating ineffective esophageal motility | | | per chicago classification v3.0. | | | - Low baseline impedance in distal esophagus suggestive | | | of esophagitis or burns's esophagus. | | |Recommendation: - Return to referring physician. | | |Attending Participation: | | | I have reviewed and interpreted the results of the above documented | | | diagnostic study. | | |RUBEN STUBBS MD | | |04/17/2019 6:10:42 PM | | |This report has been signed electronically. | | |Number of Addenda: 0 | | |Note Initiated On: 04/12/2019 2:51 PM | | + +-- + + +---------+ + + | Performing | Address | City/State/Zipcode | Phone Number | | Organization | | | | + +---------+ + + | [facility] | | | | + +---------+ + + documented in this encounter Visit Diagnoses + + | Diagnosis | + + | S/P gastric bypass Bariatric surgery status | + + | Epigastric pain Abdominal pain, epigastric | + + | Decreased oral intake Other symptoms concerning nutrition, metabolism, and | | development | + + | Gastroesophageal reflux disease, esophagitis presence not specified | + + documented in this encounter Administered Medications + +---------+ +------+------+------+ | Medication Order | MAR | Action | Dose | Rate | Site | | | Action | Date | | | | + +---------+ +------+------+------+ | lidocaine 4% - PHENYLEPHRine 1% | New Bag | 04/12/20 | 1 mL | | Nose | | non-sterile solution | | 19 1:25 | | | | | INTRAPROCEDURE CONTINUOUS PRN, | | PM PST | | | | | Starting 04/12/19 at 1403, | | | | | | | Until 04/12/19 at 1325 | | | | | | + +---------+ +------+------+------+ +---+---+ | | | +---+---+ + +-------+ +------+---+------+ | lidocaine viscous (XYLOCAINE | Given | 04/12/20 | 1 mL | | Nose | | VISCOUS) 2 % mucosal solution | | 19 1:25 | | | | | Mouth/Throat, INTRAPROCEDURE PRN, | | PM PST | | | | | Starting 04/12/19 at 1325, | | | | | | | Until 04/12/19 at 1325 | | | | | | + +-------+ +------+---+------+ +---+---+ | | | +---+---+ documented in this encounter
--- OUTSIDE RECORDS SUMMARY | ~2019-11-06 | XMS | Encounter Summary ---
Demographics + + + | Address | [address] | | | [place] [address] | + + + | Home Phone | | + + + | Preferred Language | Unknown | + + + | Marital Status | | + + + | Rastafari Affiliation | NRP | + + + [...] Team Providers + +------+ + | Care Special Delivery Mail Carrier Name | Role | Phone | + +------+ + | Alisha Stovall PA-C | PCP | | + +------+ + Encounter Details +--------+---------+ + + + | Date | Type | Department | Care Team | Description | +--------+---------+ + + + | 10/26/ | Office | [facility] | Kenan Norton, | S/P gastric bypass | | 2019 | Visit | [facility] [address] | MD [address] | (Primary Dx); | | | | [address] | [place], [place] | Nausea; Epigastric | | | | for Health and | [address] | pain; Aftercare | | | | Healing, [address] | [phone] | following surgery | | | | [place], [place] | | | | | | [address] | | | | | | [phone] | | | +--------+---------+ + + + Social History + +-------+ [...] + + + | Blood Pressure | 142/81 | 10/26/2018 8:21 AM | | | | | PDT | | + + + + + | Pulse | 67 | 10/26/2018 8:21 AM | | | | | PDT | | + + + + + | Temperature | 36.4 C (97.6 F) | 10/26/2018 8:21 AM | | | | | PDT | | + + + + + | Respiratory Rate | 14 | 10/26/2018 8:21 AM | | | | | PDT | | + + + + + | Oxygen Saturation | 99% | 10/26/2018 8:21 AM | | | | | PDT | | + + + + + | Inhaled Oxygen | - | - | | | Concentration | | | | + + + + + | Weight | 157.5 kg (347 lb 3.2 | 10/26/2018 8:21 AM | | | | oz) | PDT | | + + + + + | Height | - | - | | + + + + + | Body Mass Index | 48.42 | 10/02/2018 2:16 PM | | | | | PDT | | + + + + + [...] + + documented as of this encounter Patient Instructions Patient Instructions Kenan Norton MD - 10/26/2018 8:30 AM PDTPlease visit with our Re gistered Manager Mba (RD) for instructions about your Bariatric diet, assistance with calorie counts, tips and tricks for working with your diet restrictions, and recipes after bariatric surgery. Daily yogurt; even just 1 tablespoon twice a day will provide enough probiotics to optimize digestion. Try to use a high-quality, probiotic-dense yogurt (eg Shoshana's, [place], Lif eway Kefir, Bible Teacher DarynTherapydia Pashto Yogurt). Remember to chew your food well, eat small bites, and work on eating slowly. Avoid drinkin g fluid within 20 min before or after meals. Try to exercise at least 30 min four times each week. Try to add some strength training a nd resistance work, in addition to cardio exercise. Water exercises can be very useful if y ou have joint pain/back pain or other limitations. Check with your local gyms and [employer] /community centers for classes. Our psychologist is available to see you after surgery, if you are feeling stressors or nee d emotional support. Please let us know if you'd like to see them. We have monthly support groups and an online facebook support group. We encourage particip ation in a support group as this does encourage healthy habits and reinforces all of the thi ngs your learned in your classes and during appointments with our RD. Smoking: We strongly discourage nicotine use after surgery. Nicotine reduces oxygen to the healing stomach. There are also moth exterminator complications of poor wound healing and gastric u lcers. These ulcers are started by smoking or using other nicotine products (vapor cigarett es etc). Gastric bypass patients should also avoid NSAIDS(ibuprofen, advil, motrin, naprosyn/naproxe n/aleve) to prevent gastric/marginal ulcers. Control (FOR FEMALES OF REPRODUCTIVE AGE): Bariatric surgery can markedly improve in fertility, or make you more fertile. For the first 18 months after bariatric surgery, we re commend good control as rapid weight loss puts you at very high risk for miscarriage. We DO NOT recommend until you are at least 18month after surgery. Be proactive in your healthcare. Followup with your PCP. Get your regular screening exams such as mammograms, colonoscopies etc. Know your insurance and your insurance benefits, an d if they are ever unclear, call your insurance company for clarification (look on the back of your insurance card for the contact phone number). documented in this encounter Progress Notes Kenan Norton MD - 10/26/2018 8:30 AM PDTFormatting of this note might be different fr om the original. BARIATRIC SURGERY POSTOP FOLLOW UP DATE OF VISIT: 10/26/18 REASON FOR VISIT: 1 month post-op f/u DATE OF SURGERY: 09/24/18 HISTORY: Maria De Jesus Anna is a(n) 27 y.o. female with history of Past Medical History: Diagnosis Date Asthma Fatty liver GERD (gastroesophageal reflux disease) HTN (hypertension) 2017 LVH (left ventricular hypertrophy) Shortness of breath Sleep apnea Type 2 diabetes mellitus (HCC) Here for 1 month f/u s/p LRYGB INTERVAL HISTORY: Pt has lost 37 lbs since preop visit. 384 -> 347 lbs TODAY IN CLINIC Maria De Jesus Anna is ~1 month s/p RYGB. Post-op course c/b abdominal pain with po intake and po intolerance. She reports inability to get in all water that is needed. She is drinking a 50 oz bottle over 2 days. She reports inability to advance diet and feeling very frustrated with her options. Told not to take vitamins until reaching her fluid goals and she still is n't there yet. She is very tearful. Also tells me continues to bring home pizza and Amos's many nights. This is very difficult to her to see/smell this food. Feeling encour aged that her kids will be a away for a period of time and she can focus on herself. She robert lly isn't vomiting. Occasionally having undigested food come back up when she eats too much. She is very constipated. This is a chronic issue and exaggerated after surgery. On 2-3 BMs since surgery. Feeling very full with pelvic pressure. Last BM yesterday was small and requi red lots of straining. She saw blood on outside of stool. Feeling tired and weak. No falls or faining. SUPPLEMENTS: Not taking currently VITAL SIGNS: BP 142/81 | Pulse 67 | Temp 36.4 C (97.6 F) (Oral) | Resp 14 | Wt 157.5 kg (347 lb 3.2 oz) | SpO2 99% | BMI 48.42 kg/m | BSA 2.81 m Exam WNWD, NAD, AAOx3, very pleasant and appears comfortable SURGICAL SITE: C/d/i, no erythema or drainage IMAGING: Reviewed UGI and CT again today IMPRESSION: This is Maria De Jesus Anna, a 27 y.o. F who is s/p LRYGB. She has been struggling with po int alfred, not meeting fluid goals and experiencing difficulty advancing her diet. Very emotional and frustrated. We also discussed the issues she is having with her having unhealthy food in the house frequently, I urged her to address this with her counselor and . I suggested she see if he can come to one of their appointments to try and address the import ance of healthy eating as a goal for the entire family. PO intolerance/Abdominal pain #1 - EGD - ordered #2 - Add levsin QID #3 - continue taking phenergan for nausea #4 - work on fluid intake #5 - check blood work today #6 - B12 injection given If above fails to improve, we may need to repeat CT scan with contrast #2 Constipation - Clean out with bowel prep - sending to lab - Add Colace - Add senna/Dulcolax as needed - Continue Miralax -- Continue Working on hydration with >64oz O2 intake daily - short team goal is 32 oz -- Continue working on protein intake with goal >60g/day -- Diet advancement discussed with RD today -- Recommend scheduled exercise regimen -- Nutrition labs due at 3-6 months -- Continue routine follow up with MEMBERSHIP SALES ADVISOR and nutrition team -- see PCP for ongoing management of chronic medications and medical problems. I have rev' d medications and problem list as pertains to bariatric surgery today. -- Return to Clinic in 2 months or PRN if symptoms worsen or fail to improve Kenan Norton MD Electronically signed on 10/26/2018 at 11:15 AM Kenan Norton MD. Juanjose Carroll - 08/2018 8:30 AM PDTPatient presents for blood draw per Providers order Site: RIGHT A/C Time: 10:25 Patient tolerated well; ONE ATTEMPT Vitor Kern - 10/27/19 8:30 AM PDT [facility] Department of Surgery Division of Red Surgery Clinic Note- Follow-Up Author: Vitor Lyons MS3 Attending Physician: Kenan Norton MD 10/26/2018 Chief Complaint: Bariatric Follow-Up Subjective/Interval History: Maria De Jesus Anna is a 27 y.o. female patient who presents to clinic today for follow up tori luation status post Laparoscopic Nadya-En-Y gastric bypass and laparoscopic cholecystectomy o n 09/24/2018. She had her initial post-op visit on 10/02/18, when she reported difficulty with pain management and was reportedly utilizing 6 or more oxycodone a day for comfort. At that visit, pt also reported being upset with family as they could "eat whatever they want" and t hat she cannot. Since this appt, she has contacted our staff about approximately x 1 week of nausea and con stipation. When these symptoms continued she went to an ED in [facility] where she was worked up for dehydration and prescribed Phenergan for nausea and stool softeners for her constipa tion. Pt endorses that the Phenergan works for her nausea but Zofran doesn't. Patient had on e small bowel movement last night, which she states she had to strain for an hour to achieve . Did endorse small amount of blood in stool. As far as her nutrition, pt states she has only been able to tolerate serbian and drinkable y ogurts. She states it takes her approximately x 2 days to drink 60 ounces of water. She stat es her weight is down to 347lbs from 370lbs at the time of surgery but that she cannot feel happy about this because of her challenges with taking in food and fluids by mouth. Pt state s that she has been very hard on herself and is frustrated by her recovery time. OBJECTIVE: Vitals: BP 142/81 | Pulse 67 | Temp 36.4 C (97.6 F) (Oral) | Resp 14 | Wt 157.5 kg (347 lb 3.2 oz) | SpO2 99% | BMI 48.42 kg/m | BSA 2.81 m Physical Exam: General: Alert and oriented, sitting on exam table, pt is tearful after discussing recent h ealth Cardiovascular: regular rate and rhythm Respiratory: Breathing is even and unlabored on RA Abdomen: Incisions are healing well, clean, dry and intact, no signs of infection Extremities: Moves all extremities spontaneously IMAGING: Reviewed UGI and CT again today ASSESSMENT: Maria De Jesus Anna is a 27 y.o. female patient who presents for her second post-op visit stat us post laparoscopic gastric bypass and cholecystectomy on 09/24/2018. Pt has been struggling with PO intake and has had limitations in her fluid intake. She has become emotional and fru strated by these difficulties. She also cites frustrations with her family and having junk f ood in the house, which Dr. Norton and her had a discussion about. PLAN: Per Dr. Norton, the plan is as follows: #1 PO intolerance/Abdominal pain - EGD - ordered - Add levsin QID - continue taking phenergan for nausea - work on fluid intake - check blood work today - B12 injection given If above fails to improve, we may need to repeat CT scan with contrast #2 Constipation - Clean out with bowel prep - sending to lab - Add Colace - Add senna/Dulcolax as needed - Continue Miralax -- Continue Working on hydration with >64oz O2 intake daily - short team goal is 32 oz -- Continue working on protein intake with goal >60g/day -- Diet advancement discussed with RD today -- Recommend scheduled exercise regimen -- Nutrition labs due at 3-6 months -- Continue routine follow up with MEMBERSHIP SALES ADVISOR and nutrition team -- see PCP for ongoing management of chronic medications and medical problems. I have rev' d medications and problem list as pertains to bariatric surgery today. -- Return to Clinic in 2 months or PRN if symptoms worsen or fail to improve The patient was seen and discussed with attending physician, Dr. Norton, who is in agreemen t with the above plan of care. Vitor Lyons, MS3 [facility] [address] Mailcode: [place] [address] documented in this encoun ter Plan of Treatment +--------+ + + + + | Date | Type | Specialty | Care Team | Description | +--------+ + + + + | 11/13/ | Office | Gastroenterology | Cassidy Schneider, | | | 2019 | Visit | | [address] | | | | | | [place], [place] | | | | | | [address] | | | | | | [phone] | | | | | | | | +--------+ + + + + | 11/17/ | Video/TeleH | Pain Management | Florencio Lockett, | | | 2019 | ealth-Sched | | PhD [address] | | | | uled | | [place], [place] | | | | | | [address] | | | | | | [phone] | | | | | | | | +--------+ + + + + | 12/01/ | Video/TeleH | Pain Management | Florencio Lockett, | | | 2019 | ealth-Sched | | PhD [address] | | | | uled | | [place], [place] | | | | | | [address] | | | | | | [phone] | | | | | | | | +--------+ + + + + | 01/06/ | Office | Plastic Surgery | Kuldip Harrell MD | | | 2019 | Visit | | [address] | | | | | | [place], [place] | | | | | | [address] | | | | | | [phone] | | | | | | | | +--------+ + + + + + + +--------+ + + | Name | Type | Priori | Associated Diagnoses | Order Schedule | | | | ty | | | + + +--------+ + + | ROUTINE | Procedures | Routin | S/P gastric bypass | Ordered: 10/26/2018 | | VENIPUNCTURE, | | e | | | | VENOUS-BACK OFFICE | | | | | + + +--------+ + + documented as of this encounter Procedures + +--------+ + + + | Procedure Name | Priori | Date/Time | Associated Diagnosis | Comments | | | ty | | | | + +--------+ + + + | CBC (HEMOGRAM) ONLY | Routin | 10/26/2018 | S/P gastric bypass | Results for this | | | e | 10:30 AM | | procedure are in the | | | | PDT | | results section. | + +--------+ + + + | VITAMIN B1, WHOLE | Routin | 10/26/2018 | S/P gastric bypass | Results for this | | BLOOD | e | 10:30 AM | | procedure are in the | | | | PDT | | results section. | + +--------+ + + + | COMPLETE METABOLIC | Routin | 10/26/2018 | S/P gastric bypass | Results for this | | SET | e | 10:30 AM | | procedure are in the | | (NA,K,CL,CO2,BUN,CRE | | PDT | | results section. | | AT,GLUC,CA,AST,ALT,B | | | | | | LUIS ANGEL TOTAL,ALK | | | | | | PHOS,ALB,PROT TOTAL) | | | | | + +--------+ + + + | CBC ONLY | Routin | 10/26/2018 | S/P gastric bypass | Results for this | | | e | 10:30 AM | | procedure are in the | | | | PDT | | results section. | + +--------+ + + + documented in this encounter Results CBC (HEMOGRAM) ONLY (10/26/2018 10:30 AM PDT) + + + + + + | Component | Value | Ref Range | Performed | Pathologist | | | | | At | Signature | + + + + + + | WHITE CELL | 7.56 | 3.50 - 10.80 | [facility] | | | COUNT | | K/cu mm | LABORATORY | | | | | | SERVICES, | | | | | | CORE | | + + + + + + | RED CELL | 4.99 | 4.00 - 5.20 | [facility] | | | COUNT | | M/cu mm | LABORATORY | | | | | | SERVICES, | | | | | | CORE | | + + + + + + | HEMOGLOBIN | 13.3 | 12.0 - 16.0 | [facility] | | | | | g/dL | LABORATORY | | | | | | SERVICES, | | | | | | CORE | | + + + + + + | HEMATOCRIT | 41.9 | 36.0 - 46.0 % | [facility] | | | | | | LABORATORY | | | | | | SERVICES, | | | | | | CORE | | + + + + + + | MCV | 84.0 | 80.0 - 100.0 fL | [facility] | | | | | | LABORATORY | | | | | | SERVICES, | | | | | | CORE | | + + + + + + | MCHC | 31.7 (L) | 32.0 - 36.0 | [facility] | | | | | g/dL | LABORATORY | | | | | | SERVICES, | | | | | | CORE | | + + + + + + | RDW SD | 47.0 (H) | 35.1 - 46.3 fL | [facility] | | | | | | LABORATORY | | | | | | SERVICES, | | | | | | CORE | | + + + + + + | PLATELET | 154 | 150 - 400 K/cu | [facility] | | | COUNT | | mm | LABORATORY | | | | | | SERVICES, | | | | | | CORE | | + + + + + + | MPV | 12.9 (H) | 9.7 - 12.3 fL | [facility] [...] | + + + + + | [facility] | [address] | [place] [address] | | | SERVICES, CORE | [address] | | | + + + + + VITAMIN B1, WHOLE BLOOD (10/26/2018 10:30 AM PDT) + + + + + + | Component | Value | Ref Range | Performed | Pathologist | | | | | At | Signature | + + + + + + | VITAMIN B1, | 80Comment: INTERPRETIVE | 70 - 180 nmol/L | [...] | | | | | determined by [facility] | | | | | | [facility]. See | | | | | | Compliance Statement B: | | | | | | aruplab.[employer]/CSPerformed | | | | | | by [facility],[address] | [address], [facility] | | | | | | [address] | | | | | | [phone].[employer]. | | | | | | [employer] WorksJosué MD, | | | | | | [...] + | [facility] | [address] | [place], [place] | | | [facility] | | [id number] | | + + + + + COMPLETE METABOLIC SET (NA,K,CL,CO2,BUN,CREAT,GLUC,CA,AST,ALT,BILI TOTAL,ALK PHOS,ALB,PROT TOTAL) (10/26/2018 10:30 AM PDT) + +---------+ + + + | Component | Value | Ref Range | Performed | Pathologist | | | | | At | Signature | + +---------+ + + + | GLUCOSE, | 95 | 70 - 99 mg/dL | [facility] | | | PLASMA | | | LABORATORY | | | (LAB) | | | SERVICES, | | | | | | CORE | | + +---------+ + + + | BUN, PLASMA | 7 | 6 - 20 mg/dL | [facility] | | | (LAB) | | | LABORATORY | | | | | | SERVICES, | | | | | | CORE | | + +---------+ + + + | CREATININE | 0.67 | 0.60 - 1.10 | [facility] | | | PLASMA | | mg/dL | LABORATORY | | | (LAB) | | | SERVICES, | | | | | | CORE | | + +---------+ + + + | EGFR | >60 | >60 mL/min | [facility] | | | - | | | LABORATORY | | | [place] | | | SERVICES, | | | | | | CORE | | + +---------+ + + + | EGFR NON | >60 | >60 mL/min | [facility] | | | -MALACHI | | | LABORATORY | | | RICAN | | | SERVICES, | | | | | | CORE | | + +---------+ + + + | SODIUM, | 141 | 136 - 145 | [facility] | | | PLASMA | | mmol/L | LABORATORY | | | (LAB) | | | SERVICES, | | | | | | CORE | | + +---------+ + + + | POTASSIUM, | 3.6 | 3.4 - 5.0 | [facility] | | | PLASMA | | mmol/L | LABORATORY | | | (LAB) | | | SERVICES, | | | | | | CORE | | + +---------+ + + + | CHLORIDE, | 109 (H) | 97 - 108 mmol/L | [facility] | | | PLASMA | | | LABORATORY | | | (LAB) | | | SERVICES, | | | | | | CORE | | + +---------+ + + + | TOTAL CO2, | 25 | 21 - 32 mmol/L | [facility] | | | PLASMA | | | LABORATORY | | | (LAB) | | | SERVICES, | | | | | | CORE | | + +---------+ + + + | CALCIUM, | 9.1 | 8.6 - 10.2 | [facility] | | | PLASMA | | mg/dL | LABORATORY | | | (LAB) | | | SERVICES, | | | | | | CORE | | + +---------+ + + + | CALCIUM(ALB | 9.5 | 8.6 - 10.2 | [facility] | | | CORRECTED) | | mg/dL | LABORATORY | | | | | | SERVICES, | | | | | | CORE | | + +---------+ + + + | BILIRUBIN | 0.7 | 0.3 - 1.2 mg/dL | [facility] | | | TOTAL | | | LABORATORY | | | | | | SERVICES, | | | | | | CORE | | + +---------+ + + + | TOTAL | 7.6 | 6.4 - 8.2 g/dL | [facility] | | | PROTEIN, | | | LABORATORY | | | PLASMA | | | SERVICES, | | | (LAB) | | | CORE | | + +---------+ + + + | ALBUMIN, | 3.5 | 3.5 - 4.7 g/dL | [facility] | | | PLASMA | | | LABORATORY | | | (LAB) | | | SERVICES, | | | | | | CORE | | + +---------+ + + + | ALK PHOS | 63 | 42 - 98 U/L | [facility] | | | | | | LABORATORY | | | | | | SERVICES, | | | | | | CORE | | + +---------+ + + + | AST(SGOT) | 24 | <=41 U/L | [facility] | | | | | | LABORATORY | | | | | | SERVICES, | | | | | | CORE | | + +---------+ + + + | ALT (SGPT) | 40 | <=60 U/L | [facility] | | | | | | LABORATORY | | | | | | SERVICES, | | | | | | CORE | | + +---------+ + + + | ANION GAP | 7 | 4 - 11 mmol/L | [facility] | | | | | | LABORATORY | | | | | | SERVICES, | | | | | | CORE | | + +---------+ + + + | ANION | 8 | 4 - 11 mmol/L | [facility] | | | GAP(ALB | | | LABORATORY | | | CORRECTED) | | | SERVICES, | | | | | | CORE | | + +---------+ + + + | POTASSIUM | No Hemo | | [facility] | | | CMNT | | | LABORATORY | | | | | | SERVICES, | | | | | | CORE | | + +---------+ + + + | BILI T CMNT | No Hemo | | [facility] | | | | | | LABORATORY | | | | | | SERVICES, | | | | | | CORE | | + +---------+ + + + | AST CMNT | No Hemo | | [facility] | | | | | | LABORATORY | | | | | | SERVICES, | | | | | | CORE | | + +---------+ + + + + + | Specimen | + + | Blood - Blood | | (substance) | + + + + + | Narrative | Performed At | + + + | GFR is estimated using the MDRD equation recommended by the National | [facility] | | Kidney Disease Education Program. Estimated GFR Interpretive | LABORATORY | | Information: <60 mL/min/1.73 sq m Chronic Kidney | SERVICES, CORE | | Disease <15 mL/min/1.73 sq m Kidney Failure | | | Estimated GFR greater than 60 mL/min/1.73 sq m is of limited clinical | | | value. The MDRD equation is not valid in the following situations: - | | | Patients under 18 years of age - Severe malnutrition or obesity - | | | Vegetarian diet - Rapidly changing kidney function - Amputees, | | | paraplegics, or other muscle-wasting diseses | | + + + + + + + + | Performing | Address | City/State/Zipcode | Phone Number | | Organization | | | | + + + + + | [facility] | [address] | [place] [address] | | | SERVICES, CORE | [address] | | | + + + + + documented in this encounter Visit Diagnoses + + | Diagnosis | + + | S/P gastric bypass - Primary Bariatric surgery status | + + | Nausea Nausea alone | + + | Epigastric pain Abdominal pain, epigastric | + + | Aftercare following surgery Encounter for other specified aftercare | + + documented in this encounter
--- OUTSIDE RECORDS SUMMARY | ~2019-11-06 | XMS | Encounter Summary ---
Demographics + + + | Address | [address] | | | [place] [address] | + + + | Home Phone | | + + + | Preferred Language | Unknown | + + + | Marital Status | | + + + | Catholic Affiliation | NRP | + + + | Race | White | + + + | Ethnic Group | Not or | + + + Author + + + | Author | [facility] | + + + | Organization | [facility] | + + + | Address | Unknown | + + + | Phone | Unavailable | + + + Support + + +---------+ + | Name | Relationship | Address | Phone | + + +---------+ + | Jeovanny Hernández | ECON | Unknown | | + + +---------+ + Care Team Providers + +------+ + | Care [facility] Name | Role | Phone | + +------+ + | Alisha Stovall PA-C | PCP | | + +------+ + Encounter Details +--------+ + + + + | Date | Type | Department | Care Team | Description | +--------+ + + + + | 02/15/ | Transcribe | [facility] | Transcribe | | | 2019 | Orders | [facility] [address] | Encounter, Provider, | | | | | Jose Ortega [place] for | MD [address] | | | | | Health and Healing, | [place] [address] | | | | | [address] | | | | | | [place], [place] | | | | | | [address] | | | | | | [phone] | | | +--------+ + + + [...] | | 2019 | Visit | | MD [address] | | | | | | [place], [place] | | | | | | [address] | | | | | | [phone] | | | | | | | | +--------+ + + + + | 11/17/ | Video/TeleH | Pain Management | Florencio Lockett, | | | 2019 | ealth-Sched | | PhD [address] | | | | uled | | [place], [place] | | | | | | [address] | | | | | | [phone] | | | | | | | | +--------+ + + + + | 12/01/ | Video/TeleH | Pain Management | Florencio Lockett, | | | 2019 [facility] | | PhD [address] | | | | uled | | [place], [place] | | | | | | [address] | | | | | | [phone] | | | | | | | | +--------+ + + + + | 01/06/ | Office | Plastic Surgery | Kuldip Harrell MD | | | 2019 | Visit | | [address] | | | | | | [place], [place] | | | | | | [address] | | | | | | [phone] | | | | | | | | +--------+ + + + + documented as of this encounter Results ESOPHAGEAL MANOMETRY (04/12/2019 2:51 PM PST) + + | Specimen | + + | | + + + +-- + | Narrative | P erformed At | + +-- + | MRN: | [facility] | | [id number] Date: 04/12/2019Patient Name: Maria De Jesus AnnaOrder #: | E NDOSCOPY | | [id number] of : 1990CSN: [id number] Type: | | | AmbulatoryRoom: 11Procedure: High Resolution | | | esophageal manometryIndications: Esophageal dysphagia, | | | Suspected esophageal reflux, For | | | therapy of esophageal refluxProviders: RUBEN STUBBS MD | | | (Doctor), SRAVAN GERMAN RN (Nurse)Referring MD: RAFFY Chavarria | | | OMEGA MDRequesting Provider: Medicines: Lidocaine | | | [...] specified | + + documented in this encounter"
--- OUTSIDE RECORDS SUMMARY | ~2019-11-06 | XMS | Encounter Summary ---
Demographics + + + | Address | [address] | | | [place] [address] | + + + | Home Phone | | + + + | Preferred Language | Unknown | + + + | Marital Status | | + + + | Jainism Affiliation | NRP | + + + | Race | White | + + + | Ethnic Group | Not or | + + + Author + + + | Author | [facility] | + + + | Organization | [facility] | + + + | Address | Unknown | + + + | Phone | Unavailable | + + + Support + + +---------+ + | Name | Relationship | Address | Phone | + + +---------+ + | Jeovanny Hernández | ECON | Unknown | | + + +---------+ + Care Team Providers + +------+ + | Care Block Making Machine Operator Name | Role | Phone | + +------+ + | Alisha Stovall PA-C | PCP | | + +------+ + Reason for Visit + + + | Reason | Comments | + + + | Bariatric Nutrition | | + + + Consultation (Routine) +--------+--------+ + + + + | Status | Reason | Specialty | Diagnoses / | Referred By | Referred To | | | | | Procedures | Contact | Contact | +--------+--------+ + + + + | Closed | | Nutrition | | Bar | Fn | | | | | | [facility] | | | | | | Surg [facility] | [facility] [address] | | | | | | [address] | | | | | | Ave Center | [facility] for | | | | | | for Health | Health and | | | | | | and Healing, | Healing, | | | | | | Building [address] | [address] | | | | | | [place], | [place], [place] | | | | | | [place] | [address] | | | | | | [address] | Phone: | | | | | | Phone: | [phone] | | | | | | [phone] | Fax: | | | | | | Fax: | [phone] | | | | | | [phone] | | +--------+--------+ + + + + Encounter Details +--------+---------+ + + + | Date | Type | Department | Care Team | Description | +--------+---------+ + + + | 12/21/ | Office | Digestive Health | Katheryn Perdomo, | S/P gastric bypass | | 2019 | Visit | [facility] [address] | (Primary Dx); Morbid | | | | [address] | [place], [place] | obesity (HCC) | | | | for Health and | [address] | | | | | [facility] | [phone] | | | | | [place], [place] | | | | | | [address] | | | | | | [phone] | | | +--------+---------+ + + + [...] + + documented as of this encounter Progress Notes Katheryn Perdomo, RD - 12/21/2018 1:00 PM PDTFormatting of this note might be different fr om the original. Nutrition Counseling: Post-op Bariatric Surgery Follow-Up Patient referred by: Kenan Norton MD Documented time of visit: 1:08 to 1:35 (27 minutes [id number] with patient) Surgery: Gastric Bypassand Cholecystectomy Date of Surgery: 09/24/18 Subjective: Pt shares her acid reflux acts up anytime she eats. Pt is very thirsty. Any reported changes: constipation, vomiting when tried ice cream Tolerating Bariatric Diet: No Current Physical Activity: nothing Objective: Ht Readings from Last 1 Encounters: 12/21/18 1.803 m (5' 11") Wt Readings from Last 4 Encounters: 12/21/18 140.6 kg (310 lb) 10/26/18 157.5 kg (347 lb 3.2 oz) 10/02/18 165.1 kg (364 lb) 10/02/18 165.1 kg (364 lb) BMI: 43.24 Weight change since surgery: 370-->310=60# down PMHx: Past Medical History: Diagnosis Date Asthma Fatty liver per CT scan GERD (gastroesophageal reflux disease) HTN (hypertension) 2017 LVH (left ventricular hypertrophy) The left ventricle is normal in size, wall thickness and systolic function EF 55-60%. ECHO Shortness of breath Sleep apnea Type 2 diabetes mellitus (HCC) Food logs: No Food choices: fruit, yogurt, fruit popsicles 24 hr recall: 7am woke up 9am 1/4 cup chopped strawberries 5pm 1 TBSP mashed potatoes 10:30pm 4 chicken nuggets Fluid choices: crystal light Supplementation: gummy prenatals BID for past 5 days; plans to buy Bariatric Fusion chewabl e all-in-one 4/d Assessment: Not meeting protein/fluid/vitamin needs. Following Bariatric Diet Protocol: No Meeting protein goals: No Meeting fluid goals: No, 22 oz/d PO, has been using Rx'd IVF Fluids from meals: Yes Adequate vitamin and mineral supplementation: No Plan: Advised pt to get back to protein munoz and protein shakes and try unflavored protein powd er in yogurt, mashed potatoes, etc. Reviewed nutrition goals after bariatric surgery. Aim for 64 ounces of fluid and 60-80 grams of protein per day. Continue to follow post-surgery bariatric diet progression: Continue stage 3 according to b ariatric diet guidelines -Provided written & verbal education/review on stage 3 guidelines, including grocery list of stage 3 foods -Continue introducing soft/ground/moist protein foods -Once meeting protein goal consistently, gradually add up to 1/2 cup per meal of soft/cook ed fruits, vegetables, or starches -Continue to eat protein foods first; stop eating as soon as you begin to feel full -Add new foods one at a time -Avoid red meats, hard/crunchy foods, breads, rice, and pasta until 3 months post-surgery -Choose foods with < 14 g sugar & < 10 g fat per serving -Continue fluids from meals and 30 minutes after Continue vitamin & mineral supplementation per post-bariatric surgery guidelines -complete multivitamin & mineral (with iron) supplement, 2/day -4875-7260 mg calcium citrate with vitamin D/day (take in divided doses, not within 2 hour s of multivitamin or iron supplement) -500 mcg/day sublingual B12 supplement (or monthly injections) Continued to reinforce importance of mindful eating. Continue to increase physical activity. Follow up in 3 mo. Katheryn Perdomo, MS, RDN, CSOWM, LD, CDE [facility] Bariatrics [phone] documented in this e ncounter Plan of Treatment +--------+ + + + + | Date | Type | Specialty | Care Team | Description | +--------+ + + + + | 11/13/ | Office | Gastroenterology | Cassiyd Schneider, | | | 2019 | Visit | | [address] | | | | | | [place], [place] | | | | | | [address] | | | | | | [phone] | | | | | | | | +--------+ + + + + | 11/17/ | Video/TeleH | Pain Management | Florencio Lockett, | | | 2019 | ealth-Sched | | PhD [address] | | | | uled | | [place], [place] | | | | | | [address] | | | | | | [phone] | | | | | | | | +--------+ + + + + | 12/01/ | Video/TeleH | Pain Management | Florencio Lockett G, | | | 2019 | ealth-Sched | | PhD [address] | | | | uled | | [place], [place] | | | | | | [address] | | | | | | [phone] | | | | | | | | +--------+ + + + + | 01/06/ | Office | Plastic Surgery | Kuldip Harrell MD | | | 2019 | Visit | | [address] | | | | | | [place], [place] | | | | | | [address] | | | | | | [phone] | | | | | | | | +--------+ + + + + documented as of this encounter Procedures + +--------+ + + + | Procedure Name | Priori | Date/Time | Associated Diagnosis | Comments | | | ty | | | | + +--------+ + + + | [place] MNT RE-ASSESSMNT | Routin | 12/21/2018 | S/P gastric bypass | | | X15MIN | e | 1:38 PM | Morbid obesity | | | | | PDT | (HCC) | | + +--------+ + + + documented in this encounter Visit Diagnoses + + | Diagnosis | + + | S/P gastric bypass - Primary Bariatric surgery status | + + | Morbid obesity (HCC) Morbid obesity | + + documented in this encounter
--- OUTSIDE RECORDS SUMMARY | ~2019-11-06 | XMS | Encounter Summary ---
Demographics + + + | Address | [address] | | | [place] [address] | + + + | Home Phone | | + + + | Preferred Language | Unknown | + + + | Marital Status | | + + + | Christianity Affiliation | Unknown | + + + | Race | Unknown | + + + | Ethnic Group | Unknown | + + + Author + + + | Author | [facility] | | | and [place] | + + + | Organization | [facility] | | | and [place] | + + + | Address | Unknown | + + + | Phone | Unavailable | + + + Support + + + + + | Name | Relationship | Address | Phone | + + + + + | Taiwo Anna | ECON | [address] | | | | | [place], | | | | | [place] [address] | | + + + + + Care Team Providers + +------+ + | Care Carbide Grinder Name | Role | Phone | + +------+ + | Alisha Stovall | PCP | | | PA-C | | | + +------+ + Reason for Visit + + + | Reason | Comments | + + + | Follow-up | 3 month / 2 week mon | + + + Encounter Details +--------+---------+ + + + | Date | Type | Department | Care Team | Description | +--------+---------+ + + + | 09/18/ | Office | [facility] | Katheryn Hammonds DO | Hypotension, | | 2020 | Visit | CARDIOLOGY [facility] | [address] | unspecified | | | | [address] [facility] | [place], [place] | hypotension type | | | | [address] | [id number] | (Primary Dx); | | | | [place] | | Dizziness | | | | [address] | | | | | | [phone] | | | +--------+---------+ + + + [...] Comments | + + +---------+ + | Never | | | | + + +---------+ + + + + + | Alcohol Habits | Answer | Date Recorded | + + + + | How often do you have a drink containing | Never | 08/23/2018 | | alcohol? | | | + + + + | How many drinks containing alcohol do you | Not asked | | | have on a typical day when you are | | | | drinking? | | | + + + + | How often do you have six or more drinks on | Not asked | | | one occasion? | | | + + + + + + + | Sex Assigned at | Date Recorded | | | | + + + | Not on file | | + + + documented as of this encounter Last Filed Vital Signs + + + + + | Vital Sign | Reading | Time Taken | Comments | + + + + + | Blood Pressure | 98/62 | 09/19/2019 10:08 AM | | | | | PDT | | + + + + + | Pulse | 67 | 09/19/2019 10:08 AM | | | | | PDT | | + + + + + | Temperature | 36.7 C (98 F) | 09/19/2019 10:08 AM | | | | | PDT | | + + + + + | Respiratory Rate | - | - | | + + + + + | Oxygen Saturation | 100% | 09/19/2019 10:08 AM | | | | | PDT | | + + + + + | Inhaled Oxygen | - | - | | | Concentration | | | | + + + + + | Weight | 102.1 kg (225 lb) | 09/19/2019 10:08 AM | | | | | PDT | | + + + + + | Height | 180.3 cm (5' 11") | 09/19/2019 10:08 AM | | | | | PDT | | + + + + + | Body Mass Index | 31.38 | 09/19/2019 10:08 AM | | | | | PDT | | + + + + + documented in this encounter Progress Notes Katheryn Hammonds DO - 09/19/2019 10:00 AM PDT [facility] Cardiology Follow Up Note Reason for Consultation: arrhythmia Requesting Physician: History Obtained From: patient HISTORY OF PRESENT ILLNESS: The patient is a 28-year-old female who presents to the Cardiology office for initial consu ltation regarding episodes of bradycardia with heart rates going into the 40s and 50s. She also reports persistent episodes of lightheadedness and dizziness. Of note, last 10/2018, s he underwent gastric bypass surgery. She had complications from the bypass surgery, not rafael ing well. She is followed at [facility]. She was getting IV infusions multiple times per week f or hydration. She recently underwent feeding tube placement. Since feeding tube placement, she has noticed worsening of her lightheadedness and dizziness. She was also recently star nancy on clonidine 0.1 mg by mouth twice daily by her psychiatrist to help her sleep. Her blo od pressure is noted to be low today and her heart rates are normal; however, clonidine can exacerbate low heart rates. She denies any episodes of syncope. She does occasionally hav e palpitations described as heart racing. These have become worse since she had a feeding t ube placed. She has persistent pain at the peak feeding tube site. She reports that she is generally very fatigued throughout the day. Interim History I last saw the patient on 06/20/2019. At that time, I advised the patient to discontinue c lonidine and we ordered a 2-week ambulatory monitor. Her monitor demonstrated normal sinus rhythm with an average heart rate of 72 beats per minute with a heart rate range of 42-137 b eats per minute. There were no episodes of VT or SVT. There were no AV conduction abnormal ities detected. It was overall a benign monitor. Since we last saw each other, she report s that she has been feeling about at her baseline since his surgery. She continues to notic e lack of energy and has been getting lightheaded and dizzy on a regular basis. She denies any overt episodes of syncope. Her blood pressures have been low recently. She followed up in [place] with her surgeon and there are plans to reinstitute IV fluid hydration. She nuñez s resumed tube feedings primarily at night. She tries to eat during the day, but is only a ble to take down a few bites before she has dry heaving. She also admits to chest pain in h er lower sternum, which is fairly constant, but waxes and wanes in intensity. Review of Systems Constitutional: Positive for fatigue. HENT: Negative for nosebleeds. Eyes: Negative for visual disturbance. Respiratory: Negative for cough and shortness of breath. Cardiovascular: see HPI Gastrointestinal: Negative for vomiting, and blood in stool. Genitourinary: Negative for hematuria or dysuria. Musculoskeletal: Negative for myalgias, back pain and arthralgias. Skin: Negative for color change. Neurological: Negative for numbness. Hematological: Does not bruise/bleed easily. Psychiatric/Behavioral: The patient is nervous/anxious. PAST MEDICAL & SURGICAL HISTORY Past Medical History: Diagnosis Date Angina pectoris (HCC) Anxiety Arrhythmia Depression Diabetes mellitus (HCC) Dizziness Hyperlipidemia Hypertension Intractable migraine without aura and without status migrainosus 08/23/2018 Current Treatment: Topamax, propanolol Failed Treatment: imatrex 09/14/18 MRI of Brain: No acute intracranial process.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 Hyperostosis frontalis. 09/14/18 EEG: Normal awake and drowsy EEG Left ventricular hypertrophy MEHUL (obstructive sleep apnea) PCOS (polycystic ovarian syndrome) Polycystic ovarian disease Past Surgical History: Procedure Laterality Date ANTERIOR CRUCIATE LIGAMENT REPAIR gastric bypass MEDICATIONS Home Medications Outpatient Encounter Medications as of 09/19/2019 Medication Sig Dispense Refill acetaminophen (TYLENOL) 500 mg tablet Take 500 mg by mouth every 6 hours as needed for Pain. beclomethasone (QVAR) 40 mcg/puff inhaler Inhale 2 puffs into the lungs 2 times daily. cyclobenzaprine (FLEXERIL) 5 MG tablet Take 5 mg by mouth 3 times daily as needed for M uscle spasms. erenumab-aooe (AIMOVIG) 70 mg/mL injection Inject 1 mL under the skin Every 30 days. 1 mL 2 LAMOTRIGINE PO Take by mouth. lidocaine (LIDODERM) 5% patch Place 1 patch onto the skin Daily. Apply for 12 hours, th en remove for 12 hours. LINZESS 145 MCG capsule magnesium hydroxide (MILK OF MAGNESIA) 400 mg/5 mL suspension Take by mouth Daily as n eeded for Constipation. midodrine (PROAMATINE) 2.5 MG tablet Take 1 tablet by mouth 3 times daily. 90 tablet 2 Multiple Vitamins-Minerals (MULTIVITAMIN ADULT PO) Take by mouth. naloxone (NARCAN) 0.4 mg/mL oral liquid Take 8 mg by mouth 4 times daily. ondansetron (ZOFRAN ODT) 4 mg disintegrating tablet Take 4 mg by mouth every 8 hours as needed for Nausea. pantoprazole (PROTONIX) 20 mg tablet Take 20 mg by mouth every morning (before breakfas t). [DISCONTINUED] pantoprazole (PROTONIX) 20 mg tablet Take 20 mg by mouth every morning ( before breakfast). prochlorperazine 5 mg tablet Take 5-10 mg by mouth. promethazine (PHENERGAN) 25 mg tablet Take 25 mg by mouth every 6 hours as needed. scopolamine (TRANSDERM-SCOP) 1 mg/[address] 1 patch onto the skin once. At kerry st 4 hours before event;do not cut. Remove before applying new patch. simethicone (MYLICON) 80 mg chewable tablet Chew and swallow 80 mg every 6 hours as nee ded for Flatulence. topiramate (TOPAMAX) 50 MG tablet Take 50 mg by mouth 2 times daily. TRAZODONE HCL PO Take by mouth. VENLAFAXINE HCL PO Take by mouth. No facility-administered encounter medications on file as of 09/19/2019. Allergies Allergies Allergen Reactions Nicotiana Tabacum Shortness Of Breath Depakote [Valproic Acid] Other (See Comments) Suicidal Fish Oil Hives and Nausea And Vomiting Ibuprofen Hives and Nausea And Vomiting Imitrex [Sumatriptan] Nausea And Vomiting Increased headaches Oxycodone-Acetaminophen Nausea And Vomiting Percocet [Oxycodone] Nausea And Vomiting Seroquel [Quetiapine] Other (See Comments) Rage Doxycycline Rash Tessalon [Benzonatate] Rash FAMILY HISTORY Family History Problem Relation Age of Onset Migraines Father Migraines Paternal Grandmother SOCIAL HISTORY Social History Socioeconomic History Marital status: Spouse name: Not on file Number of children: Not on file Years of education: Not on file Highest education level: Not on file Occupational History Not on file Social Needs Financial resource strain: Not on file Food insecurity: Worry: Not on file Inability: Not on file Transportation needs: Medical: Not on file Non-medical: Not on file Tobacco Use Smoking status: Never Smoker Smokeless tobacco: Never Used Substance and Sexual Activity Alcohol use: Never Frequency: Never Drug use: No Sexual activity: Not on file Lifestyle Physical activity: Days per week: Not on file Minutes per session: Not on file Stress: Not on file Relationships Social connections: Talks on phone: Not on file Gets together: Not on file Attends tenriism service: Not on file Active member of club or organization: Not on file Attends meetings of clubs or organizations: Not on file Relationship status: Not on file Intimate partner violence: Fear of current or ex partner: Not on file Emotionally abused: Not on file Physically abused: Not on file Forced sexual activity: Not on file Other Topics Concern Not on file Social History Narrative Not on file PHYSICAL EXAM Vital Signs: BP 98/62 | Pulse 67 | Temp 36.7 C (98 F) (Oral) | Ht 1.803 m (5' 11") | Wt 102.1 kg (225 lb) | SpO2 100% | BMI 31.38 kg/m Physical Exam GENERAL: Well developed, well nourished, in no distress. Appears approximately stated age . HEENT: Normocephalic, atraumatic. EYES: PERRL, sclerae anicteric, no xanthelsasmas NECK: No JVD, lymphadenopathy, thyromegaly, bruits. Carotid pulses are 2+ bilaterally LUNGS: Clear bilaterally, with no rales, rhonchi or wheezing noted, respirations unlabored HEART: Nondisplaced PMI, regular rate and rhythm, S1, S2 normal. No murmurs, rubs or gall ops noted. ABDOMEN: Soft, nontender, no organomegaly, masses or bruits. Bowel sounds are normal in a ll 4 quadrants. Feeding tube in place. EXTREMITIES: No edema. Radial pulses 2+ bilaterally. DP and PT pulses are 2+ bilaterally. SKIN: Warm and dry, capillary refill is normal, no lesions. NEUROLOGIC: Awake, alert and oriented x 3. No focal motor deficits. PSYCHIATRIC: Appropriate, affect appears normal DATA Lab Results Component Value Date WBC 10.7 09/01/2017 HGB 12.5 09/01/2017 HCT 39.5 09/01/2017 PLT 280 09/01/2017 No results found for: INR, PTT Lab Results Component Value Date NA 135 (L) 09/01/2017 K 3.9 09/01/2017 CL 103 09/01/2017 CO2 22 (L) 09/01/2017 BUN 10 09/01/2017 CREA 0.76 09/01/2017 No results found for: CHOL, TRIG, HDL, LDL, TSH 06/03/2019 Sodium 138, potassium 3.8, chloride 106, carbon dioxide 26, glucose 83, BUN 14, creatinine 0.56, AST 14, ALT 17, alkaline phosphatase 65, white blood cell count 6.7, hemoglobin 12.4, hematocrit 36.6, platelets 187. Most recent blood work from 09/11/2019 reviewed including total cholesterol 142, triglycerid es 53, HDL 44, LDL 87, alkaline phosphatase 75, AST 13, ALT 14, total bilirubin 0.5, total p rotein 6.6, albumin 4.1, hemoglobin A1c 5.0, TSH 1.00, white blood cell count 4.8, hemoglobi n 13.8, hematocrit 41.1, platelet count 203. EK06/20/2019 sinus bradycardia 53 bpm, otherwise normal EKG Last Echo: 02/22/18 CONCLUSIONS 1. The left ventricle is normal in size, wall thickness and systolic function EF 55-60%. 2. The right ventricle is normal in size and function. 3. There is no pericardial effusion. Last stress test: Last cath: Carotid US: AAA screening: Lower extremity US: OTHERS: 07/08/19 Procedure: Continuous ambulatory ECG for the duration of 13 days, 9 hours hours. During th is recording, the underlying rhythm is sinus the lowest heart rate was 42 BPM, the highest h eart rate 137 BPM, averaging 72 BPM. During this recording interval, there were no episodes of SVT. Also, there were no runs of ventricular tachycardia. No AV conduction abnormaliti es observed. The heart rate trends did demonstrate a normal circadian pattern. In the patie nt's diary, there were several symptoms reported including chest discomfort, racing heart, s hortness of breath, dizziness, headache, palpitations, other symptom, fatigue all of which c orrelated with sinus rhythm. ASSESSMENT & PLAN 1. Hypotension 2. Sinus bradycardia 3. S/p gastric bypass complicated by poor healing/malnutrition necessitating gastrostomy tu be 4. History of pericarditis 5. Anxiety/depression 6. History of DM now resolved 7. History HTN now resolved 8. Migraines -The patient is a 28-year-old female who presents to the cardiology office for follow up di zziness and bradycardia. She previously noted heart rates in the 40s and 50s and noticed lo w blood pressure accompanied by dizziness without any overt syncopal episodes. I felt that clonidine could be contributing to both her hypotension and bradycardia and I asked her to d iscontinue this medication. We obtained a 14-day ambulatory monitor which demonstrated an a verage heart rate of 72 bpm with a heart rate range of 42 to 137 bpm, there were no clinical ly significant bradyarrhythmias or pauses. She continues to have issues with low blood pres sure and dizziness. I believe that this is related in part to poor p.o. intake due to her g astric bypass which has not healed well. She is presently on tube feeds at night and has ve ry poor intake during the day. She is being scheduled for weekly IV fluid infusions to prev ent dehydration. At this time, I recommend continued efforts at increasing her hydration. Will prescribe low-dose midodrine to try to help with episodes of lightheadedness and hypote nsion. - start midodrine 2.5mg po tid as needed for lightheadedness/dizziness. - Follow up in 2 months Thank you for allowing me to participate in the care of this patient. Primary Care Physician: SHANICE Haque DO 09/22/2019 documented in this enco unter Plan of Treatment +--------+---------+ + + + | Date | Type | Specialty | Care Team | Description | +--------+---------+ + + + | 11/18/ | Office | Neurology | Shirley Murdock NP | | 2019 | Visit | | [address] [place] | | | | | | [place] | | | | | | [address] | | | | | | [phone] | | | | | | | | +--------+---------+ + + + | 11/25/ | Office | Cardiology | Katheryn Hammonds DO | | | 2019 | Visit | | [address] | | | | | | [place] | | | | | | [address] | | | | | | | | +--------+---------+ + + + documented as of this encounter Visit Diagnoses + + | Diagnosis | + + | Hypotension, unspecified hypotension type - Primary | + + | Dizziness Dizziness and giddiness | + + documented in this encounter
--- OUTSIDE RECORDS SUMMARY | ~2019-11-06 | XMS | Encounter Summary ---
Demographics + + + | Address | [address] | | | [place] [address] | + + + | Home Phone | | + + + | Preferred Language | Unknown | + + + | Marital Status | | + + + | Pentecostalism Affiliation | NRP | + + + | Race | White | + + + | Ethnic Group | Not or | + + + Author + + + | Author | [facility] | + + + | Organization | [facility] | + + + | Address | Unknown | + + + | Phone | Unavailable | + + + Support + + +---------+ + | Name | Relationship | Address | Phone | + + +---------+ + | Jeovanny Hernández | ECON | Unknown | | + + +---------+ + Care Team Providers + +------+ + | Care Rn Informatics Name | Role | Phone | + +------+ + | Alisha Stovall PA-C | PCP | | + +------+ + Encounter Details +--------+ + + + + | Date | Type | Department | Care Team | Description | +--------+ + + + + | 05/30/ | Procedure | 6A Intra Op 3181 | | | | 2020 | Pass | [facility] | | | | | | [facility] | | | | | | Hospital Admitting | | | | | | Desk Located on the | | | | | | 9th floor | | | | | | [place], [place] | | | | | | [address] | | | +--------+ + + + [...] [address] | | | | | | [place], [place] | | | | | | [address] | | | | | | [phone] | | | | | | | | +--------+ + + + + | 11/17/ | Video/TeleH | Pain Management | Florencio Lockett, | | | 2019 | ealth-Sched | | PhD [address] | | | | uled | | [place], [place] | | | | | | [address] | | | | | | [phone] | | | | | | | | +--------+ + + + + | 12/01/ | Video/TeleH | Pain Management | Florencio Lockett, | | | 2019 | ealth-Sched | | PhD [address] | | | | uled | | [place], [place] | | | | | | [address] | | | | | | [phone] | | | | | | | | +--------+ + + + + | 01/06/ | Office | Plastic Surgery | Kuldip Harrell MD | | | 2019 | Visit | | [address] | | | | | | [place], [place] | | | | | | [address] | | | | | | [phone] | | | | | | | | +--------+ + + + + documented as of this encounter Visit Diagnoses Not on filedocumented in this encounter"
--- OUTSIDE RECORDS SUMMARY | ~2019-11-06 | XMS | Encounter Summary ---
Demographics + + + | Address | [address] | | | [place] [address] | + + + | Home Phone | | + + + | Preferred Language | Unknown | + + + | Marital Status | | + + + | Alevism Affiliation | NRP | + + + | Race | White | + + + | Ethnic Group | Not or | + + + Author + + + | Author | [facility] | + + + | Organization | [facility] | + + + | Address | Unknown | + + + | Phone | Unavailable | + + + Support + + +---------+ + | Name | Relationship | Address | Phone | + + +---------+ + | Jeovanny Hernández | ECON | Unknown | | + + +---------+ + Care Team Providers + +------+ + | Care Professor Computer Science Name | Role | Phone | + +------+ + | Alisha Stovall PA-C | PCP | | + +------+ + Reason for Visit +--------+ + | Reason | Comments | +--------+ + | Other | pain management | +--------+ + Encounter Details +--------+ + + + + | Date | Type | Department | Care Team | Description | +--------+ + + + + | 06/27/ | Telephone | Digestive Health | Kenan Norton, | Other (pain | | 2020 | | Center at [facility] [address] | MD [address] | management) | | | [address] | [place], [place] | | | | | for Health and | [address] | | | | | [facility] | [phone] | | | | | [place], [place] | | | | | | [address] | | | | | | [phone] | | | +--------+ + + + [...] [address] | | | | | | [place], [place] | | | | | | [address] | | | | | | [phone] | | | | | | | | +--------+ + + + + | 11/17/ | Video/TeleH | Pain Management | Florencio Lockett, | | | 2019 | ealth-Sched | | PhD [address] | | | | uled | | [place], [place] | | | | | | [address] | | | | | | [phone] | | | | | | | | +--------+ + + + + | 12/01/ | Video/TeleH | Pain Management | Florencio Lockett, | | | 2019 | ealth-Sched | | PhD [address] | | | | uled | | [place], [place] | | | | | | [address] | | | | | | [phone] | | | | | | | | +--------+ + + + + | 01/06/ | Office | Plastic Surgery | Kuldip Harrell MD | | | 2019 | Visit | | [address] | | | | | | [place], [place] | | | | | | [address] | | | | | | [phone] | | | | | | | | +--------+ + + + + + +------+--------+ + + | Name | Type | Priori | Associated Diagnoses | Order Schedule | | | | ty | | | + +------+--------+ + + | CBC ONLY | Lab | Routin | S/P gastrostomy | Expected: 08/19/2019 | | | | e | tube (G tube) | (Approximate), | | | | | placement, follow-up | Expires: 08/18/2020 | | | | | exam Acute | | | | | | post-operative pain | | | | | | Nausea and | | | | | | vomiting, | | | | | | intractability of | | | | | | vomiting not | | | | | | specified, | | | | | | unspecified vomiting | | | | | | type S/P gastric | | | | | | bypass Poor | | | | | | nutrition | | | | | | Dehydration | | | | | | Impaired intestinal | | | | | | absorption | | + +------+--------+ + + | COMPLETE METABOLIC | Lab | Routin | S/P gastrostomy | Expected: 08/19/2019 | | SET | | e | tube (G tube) | (Approximate), | | (NA,K,CL,CO2,BUN,CRE | | | placement, follow-up | Expires: 08/18/2020 | | AT,GLUC,CA,AST,ALT,B | | | exam Acute | | | LUIS ANGEL TOTAL,ALK | | | post-operative pain | | | PHOS,ALB,PROT TOTAL) | | | Nausea and | | | | | | vomiting, | | | | | | intractability of | | | | | | vomiting not | | | | | | specified, | | | | | | unspecified vomiting | | | | | | type S/P gastric | | | | | | bypass Poor | | | | | | nutrition | | | | | | Dehydration | | | | | | Impaired intestinal | | | | | | absorption | | + +------+--------+ + + | COPPER, SERUM | Lab | Routin | S/P gastrostomy | Expected: 08/19/2019 | | | | e | tube (G tube) | (Approximate), | | | | | placement, follow-up | Expires: 08/18/2020 | | | | | exam Acute | | | | | | post-operative pain | | | | | | Nausea and | | | | | | vomiting, | | | | | | intractability of | | | | | | vomiting not | | | | | | specified, | | | | | | unspecified vomiting | | | | | | type S/P gastric | | | | | | bypass Poor | | | | | | nutrition | | | | | | Dehydration | | | | | | Impaired intestinal | | | | | | absorption | | + +------+--------+ + + | FERRITIN | Lab | Routin | S/P gastrostomy | Expected: 08/19/2019 | | | | e | tube (G tube) | (Approximate), | | | | | placement, follow-up | Expires: 08/18/2020 | | | | | exam Acute | | | | | | post-operative pain | | | | | | Nausea and | | | | | | vomiting, | | | | | | intractability of | | | | | | vomiting not | | | | | | specified, | | | | | | unspecified vomiting | | | | | | type S/P gastric | | | | | | bypass Poor | | | | | | nutrition | | | | | | Dehydration | | | | | | Impaired intestinal | | | | | | absorption | | + +------+--------+ + + | HOMOCYSTEINE TOTAL, | Lab | Routin | S/P gastrostomy | Expected: 08/19/2019 | | PLASMA | | e | tube (G tube) | (Approximate), | | | | | placement, follow-up | Expires: 08/18/2020 | | | | | exam Acute | | | | | | post-operative pain | | | | | | Nausea and | | | | | | vomiting, | | | | | | intractability of | | | | | | vomiting not | | | | | | specified, | | | | | | unspecified vomiting | | | | | | type S/P gastric | | | | | | bypass Poor | | | | | | nutrition | | | | | | Dehydration | | | | | | Impaired intestinal | | | | | | absorption | | + +------+--------+ + + | INR | Lab | Routin | S/P gastrostomy | Expected: 08/19/2019 | | | | e | tube (G tube) | (Approximate), | | | | | placement, follow-up | Expires: 08/18/2020 | | | | | exam Acute | | | | | | post-operative pain | | | | | | Nausea and | | | | | | vomiting, | | | | | | intractability of | | | | | | vomiting not | | | | | | specified, | | | | | | unspecified vomiting | | | | | | type S/P gastric | | | | | | bypass Poor | | | | | | nutrition | | | | | | Dehydration | | | | | | Impaired intestinal | | | | | | absorption | | + +------+--------+ + + | IRON AND TIBC | Lab | Routin | S/P gastrostomy | Expected: 08/19/2019 | | | | e | tube (G tube) | (Approximate), | | | | | placement, follow-up | Expires: 08/18/2020 | | | | | exam Acute | | | | | | post-operative pain | | | | | | Nausea and | | | | | | vomiting, | | | | | | intractability of | | | | | | vomiting not | | | | | | specified, | | | | | | unspecified vomiting | | | | | | type S/P gastric | | | | | | bypass Poor | | | | | | nutrition | | | | | | Dehydration | | | | | | Impaired intestinal | | | | | | absorption | | + +------+--------+ + + | METHYLMALONIC ACID, | Lab | Routin | S/P gastrostomy | Expected: 08/19/2019 | | SERUM | | e | tube (G tube) | (Approximate), | | | | | placement, follow-up | Expires: 08/18/2020 | | | | | exam Acute | | | | | | post-operative pain | | | | | | Nausea and | | | | | | vomiting, | | | | | | intractability of | | | | | | vomiting not | | | | | | specified, | | | | | | unspecified vomiting | | | | | | type S/P gastric | | | | | | bypass Poor | | | | | | nutrition | | | | | | Dehydration | | | | | | Impaired intestinal | | | | | | absorption | | + +------+--------+ + + | PTH, SERUM | Lab | Routin | S/P gastrostomy | Expected: 08/19/2019 | | | | e | tube (G tube) | (Approximate), | | | | | placement, follow-up | Expires: 08/18/2020 | | | | | exam Acute | | | | | | post-operative pain | | | | | | Nausea and | | | | | | vomiting, | | | | | | intractability of | | | | | | vomiting not | | | | | | specified, | | | | | | unspecified vomiting | | | | | | type S/P gastric | | | | | | bypass Poor | | | | | | nutrition | | | | | | Dehydration | | | | | | Impaired intestinal | | | | | | absorption | | + +------+--------+ + + | VITAMIN A, SERUM | Lab | Routin | S/P gastrostomy | Expected: 08/19/2019 | | | | e | tube (G tube) | (Approximate), | | | | | placement, follow-up | Expires: 08/18/2020 | | | | | exam Acute | | | | | | post-operative pain | | | | | | Nausea and | | | | | | vomiting, | | | | | | intractability of | | | | | | vomiting not | | | | | | specified, | | | | | | unspecified vomiting | | | | | | type S/P gastric | | | | | | bypass Poor | | | | | | nutrition | | | | | | Dehydration | | | | | | Impaired intestinal | | | | | | absorption | | + +------+--------+ + + | VITAMIN B1, WHOLE | Lab | Routin | S/P gastrostomy | Expected: 08/19/2019 | | BLOOD | | e | tube (G tube) | (Approximate), | | | | | placement, follow-up | Expires: 08/18/2020 | | | | | exam Acute | | | | | | post-operative pain | | | | | | Nausea and | | | | | | vomiting, | | | | | | intractability of | | | | | | vomiting not | | | | | | specified, | | | | | | unspecified vomiting | | | | | | type S/P gastric | | | | | | bypass Poor | | | | | | nutrition | | | | | | Dehydration | | | | | | Impaired intestinal | | | | | | absorption | | + +------+--------+ + + | VITAMIN D, | Lab | Routin | S/P gastrostomy | Expected: 08/19/2019 | | 25-HYDROXY, SERUM | | e | tube (G tube) | (Approximate), | | | | | placement, follow-up | Expires: 08/18/2020 | | | | | exam Acute | | | | | | post-operative pain | | | | | | Nausea and | | | | | | vomiting, | | | | | | intractability of | | | | | | vomiting not | | | | | | specified, | | | | | | unspecified vomiting | | | | | | type S/P gastric | | | | | | bypass Poor | | | | | | nutrition | | | | | | Dehydration | | | | | | Impaired intestinal | | | | | | absorption | | + +------+--------+ + + | VITAMIN E, SERUM | Lab | Routin | S/P gastrostomy | Expected: 08/19/2019 | | | | e | tube (G tube) | (Approximate), | | | | | placement, follow-up | Expires: 08/18/2020 | | | | | exam Acute | | | | | | post-operative pain | | | | | | Nausea and | | | | | | vomiting, | | | | | | intractability of | | | | | | vomiting not | | | | | | specified, | | | | | | unspecified vomiting | | | | | | type S/P gastric | | | | | | bypass Poor | | | | | | nutrition | | | | | | Dehydration | | | | | | Impaired intestinal | | | | | | absorption | | + +------+--------+ + + | ZINC, SERUM | Lab | Routin | S/P gastrostomy | Expected: 08/19/2019 | | | | e | tube (G tube) | (Approximate), | | | | | placement, follow-up | Expires: 08/18/2020 | | | | | exam Acute | | | | | | post-operative pain | | | | | | Nausea and | | | | | | vomiting, | | | | | | intractability of | | | | | | vomiting not | | | | | | specified, | | | | | | unspecified vomiting | | | | | | type S/P gastric | | | | | | bypass Poor | | | | | | nutrition | | | | | | Dehydration | | | | | | Impaired intestinal | | | | | | absorption | | + +------+--------+ + + documented as of this encounter Visit Diagnoses + + | Diagnosis | + + | S/P gastrostomy tube (G tube) placement, follow-up exam - Primary Follow-up | | examination, following other surgery | + + | Acute post-operative pain | + + | Nausea and vomiting, intractability of vomiting not specified, unspecified vomiting | | type | + + | S/P gastric bypass Bariatric surgery status | + + | Poor nutrition Unspecified protein-calorie malnutrition | + + | Dehydration | + + | Impaired intestinal absorption Unspecified intestinal malabsorption | + + documented in this encounter"
--- OUTSIDE RECORDS SUMMARY | ~2019-11-06 | XMS | Encounter Summary ---
Demographics + + + | Address | [address] | | | [place] [address] | + + + | Home Phone | | + + + | Preferred Language | Unknown | + + + | Marital Status | | + + + | Sikh Affiliation | NRP | + + + | Race | White | + + + | Ethnic Group | Not or | + + + Author + + + | Author | [facility] | + + + | Organization | [facility] | + + + | Address | Unknown | + + + | Phone | Unavailable | + + + Support + + +---------+ + | Name | Relationship | Address | Phone | + + +---------+ + | Jeovanny Hernández | ECON | Unknown | | + + +---------+ + Care Team Providers + +------+ + | Care Professional Fighter Name | Role | Phone | + [...] | | | | | | [facility] | | | | | | Hospital Admitting | | | | | | Desk Located on the | | | | | | 9th floor | | | | | | [place], [place] | | | | | | [address] | | | +--------+ + + + [...] [address] | | | | | | [place], [place] | | | | | | [address] | | | | | | [phone] | | | | | | | | +--------+ + + + + | 11/17/ | Video/TeleH | Pain Management | Florencio Lockett, | | | 2019 | ealth-Sched | | PhD [address] | | | | uled | | [place], [place] | | | | | | [address] | | | | | | [phone] | | | | | | | | +--------+ + + + + | 12/01/ | Video/TeleH | Pain Management | Florencio Lockett, | | | 2019 | ealth-Sched | | PhD [address] | | | | uled | | [place], [place] | | | | | | [address] | | | | | | [phone] | | | | | | | | +--------+ + + + + | 01/06/ | Office | Plastic Surgery | Kuldip Harrell MD | | | 2019 | Visit | | [address] | | | | | | [place], [place] | | | | | | [address] | | | | | | [phone] | | | | | | | | +--------+ + + + + documented as of this encounter Visit Diagnoses Not on filedocumented in this encounter"
--- OUTSIDE RECORDS SUMMARY | ~2019-11-06 | XMS | Encounter Summary ---
Demographics + + + | Address | [address] | | | [place] [address] | + + + | Home Phone | | + + + | Preferred Language | Unknown | + + + | Marital Status | | + + + | Taoism Affiliation | NRP | + + + | Race | White | + + + | Ethnic Group | Not or | + + + Author + + + | Author | [facility] | + + + | Organization | [facility] | + + + | Address | Unknown | + + + | Phone | Unavailable | + + + Support + + +---------+ + | Name | Relationship | Address | Phone | + + +---------+ + | Jeovanny Hernández | ECON | Unknown | | + + +---------+ + Care Team Providers + +------+ + | Care Department Store Manager Name | Role | Phone | + +------+ + | Alisha Stovall PA-C | PCP | | + +------+ + Encounter Details +--------+ + + + + | Date | Type | Department | Care Team | Description | +--------+ + + + + | 02/20/ | MyChart | Digestive Health | Jody Watson ACNP | RE: RE: RE: RE: RE: | | 2017 | Encounter | Center at [facility] [address] | [address] | RE: RE: results | | | | [address] | [place], | | | | | for Health and | [place] [address] | | | | | Healing, [address] | [phone] | | | | | [place], [place] | | | | | | [address] | | | | | | [phone] | | | +--------+ + + + [...] [address] | | | | | | [place], [place] | | | | | | [address] | | | | | | [phone] | | | | | | | | +--------+ + + + + | 11/17/ | Video/TeleH | Pain Management | Florencio Lockett, | | | 2019 | ealth-Sched | | PhD [address] | | | | uled | | [place], [place] | | | | | | [address] | | | | | | [phone] | | | | | | | | +--------+ + + + + | 12/01/ | Video/TeleH | Pain Management | Florencio Lockett G, | | | 2019 | ealth-Sched | | PhD [address] | | | | uled | | [place], [place] | | | | | | [address] | | | | | | [phone] | | | | | | | | +--------+ + + + + | 01/06/ | Office | Plastic Surgery | Kuldip Harrell MD | | 2019 | Visit | | [address] | | | | | | [place], [place] | | | | | | [address] | | | | | | [phone] | | | | | | | | +--------+ + + + + documented as of this encounter Visit Diagnoses Not on filedocumented in this encounter"
--- OUTSIDE RECORDS SUMMARY | ~2019-11-06 | XMS | Encounter Summary ---
Demographics + + + | Address | [address] | | | [place] [address] | + + + | Home Phone | | + + + | Preferred Language | Unknown | + + + | Marital Status | | + + + | Alevism Affiliation | NRP | + + + | Race | White | + + + | Ethnic Group | Not or | + + + Author + + + | Author | [facility] | + + + | Organization | [facility] | + + + | Address | Unknown | + + + | Phone | Unavailable | + + + Support + + +---------+ + | Name | Relationship | Address | Phone | + + +---------+ + | Jeovanny Hernández | ECON | Unknown | | + + +---------+ + Care Team Providers + +------+ + | Care Deputy Register Of Deeds Name | Role | Phone | + +------+ + | Alisha Stovall PA-C | PCP | | + +------+ + Encounter Details +--------+ + + + + | Date | Type | Department | Care Team | Description | +--------+ + + + + | 08/14/ | Abstract | Digestive Health | Clinic, Surgery | | | 2017 | | [place] [address] | | | | | | [facility] | | | | | | for Health and | | | | | | Healing, [address] | | | | | | [place], [place] | | | | | | [address] | | | | | | [phone] | | | +--------+ + + + [...] | | 2019 | Visit | | [address] | | | | | | [place], [place] | | | | | | [address] | | | | | | [phone] | | | | | | | | +--------+ + + + + | 11/17/ | Video/TeleH | Pain Management | Florencio Lockett, | | | 2019 | ealth-Sched | | PhD [address] | | | | uled | | [place], [place] | | | | | | [address] | | | | | | [phone] | | | | | | | | +--------+ + + + + | 12/01/ | Video/TeleH | Pain Management | Florencio Lockett, | | | 2019 | ealth-Sched | | PhD [address] | | | | uled | | [place], [place] | | | | | | [address] | | | | | | [phone] | | | | | | | | +--------+ + + + + | 01/06/ | Office | Plastic Surgery | Kuldip Harrell MD | | 2019 | Visit | | [address] | | | | | | [place], [place] | | | | | | [address] | | | | | | [phone] | | | | | | | | +--------+ + + + + documented as of this encounter Visit Diagnoses Not on filedocumented in this encounter"
--- OUTSIDE RECORDS SUMMARY | ~2019-11-06 | XMS | Encounter Summary ---
Demographics + + + | Address | [address] | | | [place] [address] | + + + | Home Phone | | + + + | Preferred Language | Unknown | + + + | Marital Status | | + + + | Voodoo Affiliation | NRP | + + + | Race | White | + + + | Ethnic Group | Not or | + + + Author + + + | Author | [facility] | + + + | Organization | [facility] | + + + | Address | Unknown | + + + | Phone | Unavailable | + + + Support + + +---------+ + | Name | Relationship | Address | Phone | + + +---------+ + | Jeovanny Hernández | ECON | Unknown | | + + +---------+ + Care Team Providers + +------+ + | Care Music Education Adjunct Professor Name | Role | Phone | + +------+ + | Alisha Stovall PA-C | PCP | | + +------+ + Encounter Details +--------+ + + + + | Date | Type | Department | Care Team | Description | +--------+ + + + + | 04/15/ | MyChart | Digestive Health | Kenan Norton, | RE: May 06 | | 2019 | Encounter | Center at [facility] [address] | MD [address] | appointment | | | | [address] | [facility] [place] | | | | | for Health and | [address] | | | | | Healing, [address] | [phone] | | | | | [place], [place] | | | | | | [address] | | | | | | | [...] [address] | | | | | | [place], [place] | | | | | | [address] | | | | | | [phone] | | | | | | | | +--------+ + + + + | 11/17/ | Video/TeleH | Pain Management | Florencio Lockett, | | | 2019 | ealth-Sched | | PhD [address] | | | | uled | | [place], [place] | | | | | | [address] | | | | | | [phone] | | | | | | | | +--------+ + + + + | 12/01/ | Video/TeleH | Pain Management | Florencio Lockett, | | | 2019 | ealth-Sched | | PhD [address] | | | | uled | | [place], [place] | | | | | | [address] | | | | | | [phone] | | | | | | | | +--------+ + + + + | 01/06/ | Office | Plastic Surgery | Kuldip Harrell MD | | | 2019 | Visit | | [address] | | | | | | [place], [place] | | | | | | [address] | | | | | | [phone] | | | | | | | | +--------+ + + + + documented as of this encounter Visit Diagnoses Not on filedocumented in this encounter"
--- OUTSIDE RECORDS SUMMARY | ~2019-11-06 | XMS | Encounter Summary ---
Demographics + + + | Address | [address] | | | [place] [address] | + + + | Home Phone | | + + + | Preferred Language | Unknown | + + + | Marital Status | | + + + | Samaritan Affiliation | NRP | + + + [...] Team Providers + +------+ + | Care Computator Name | Role | Phone | + +------+ + | Alisha Stovall PA-C | PCP | | + +------+ + Reason for Visit + + + | Reason | Comments | + + + | Bariatric Nutrition | | + + + Encounter Details +--------+---------+ + + + | Date | Type | Department | Care Team | Description | +--------+---------+ + + + | 03/02/ | Office | Digestive Health | | Morbid obesity (HCC) | | 2018 | Visit | Center at [facility] [address] | | (Primary Dx) | | | | [address] | | | | | | for Health and | | | | | | Healing, [address] | | | | | | [place], [place] | | | | | | [address] | | | | | | [phone] | | | +--------+---------+ + + + [...] + + + | Blood Pressure | - | - | | + + + + + | Pulse | - | - | | + + + + + | Temperature | - | - | | + + + + + | Respiratory Rate | - | - | | + + + + + | Oxygen Saturation | - | - | | + + + + + | Inhaled Oxygen | - | - | | | Concentration | | | | + + + + + | Weight | 172.6 kg (380 lb 9.6 | 03/02/2018 4:45 PM | | | | oz) | PST | | + + + + + | Height | - | - | | + + + + + | Body Mass Index | 53.08 | 02/20/2018 2:08 PM | | | | | PDT | | + + + + + documented in this encounter Progress Notes Adam Lisa, RD - 03/02/2018 2:00 PM PST Referring Provider: Diya Perez MD [facility], Pre-Bariatric Surgery Class Pre-Surgery Class #2 prior to having Nadya-En-Y gastric bypass surgery or Sleeve Gastrectomy . Documented Time of Class: 2:00/3:00 until 3:00/4:00 (60 minutes [id number] with patient) OBJECTIVE: Height: Ht Readings from Last 1 Encounters: 02/20/18 1.803 m (5' 11") Ht Readings from Last 1 Encounters: 02/20/18 1.803 m (5' 11") Wt Readings from Last 2 Encounters: 03/02/18 172.6 kg (380 lb 9.6 oz) 02/20/18 174.2 kg (384 lb 1.6 oz) 10/13/17 181.9 kg (401 lb) BMI: Body mass index is 53.08 kg/m. Teaching Methods: PowerPoint and verbal presentation with additional written materials. Class content included: 1. Review of gillespie points. -Eat within one hour of waking, then every 3 to 4 waking hours (usually 3 meals and 2-3 sna cks daily)Include protein at meals (2-3 ounces) and at snacks (~1 ounce). -Goal is 60-80grams of protein/day -At least 64 ounces of fluids throughout the day (no calories, caffeine, or carbonation) -Separate fluids from meals nothing to drink 30 minutes before, during, and [address] eating -Practice mindful eating eat slowly (30 minutes for meals) without distractions such as T V, computer, phone -Choose foods with < 14 grams of sugar and < 5 grams of fat per serving -30-60 minutes of physical activity most days -Taking vitamins and minerals every day 2. Fluids 3. Exercise 4. Vitamins and Minerals & lab work. 5. Liver Reduction Diet 6. Post surgical diet progression Assessment: Pt remained attentive throughout the class and/or participated by asking questi ons or sharing information. Yes Lisa Medina RD, [facility], LD [facility] Bariatrics [phone] documented in this enco unter Plan of Treatment +--------+ + + + + | Date | Type | Specialty | Care Team | Description | +--------+ + + + + | 11/13/ | Office | Gastroenterology | Cassidy Schneider, | | | 2019 | Visit | | [address] | | | | | | [place], [place] | | | | | | [address] | | | | | | [phone] | | | | | | | | +--------+ + + + + | 11/17/ | Video/TeleH | Pain Management | Florencio Lockett, | | | 2019 | ealth-Sched | | PhD [address] | | | | uled | | [place], [place] | | | | | | [address] | | | | | | [phone] | | | | | | | | +--------+ + + + + | 12/01/ | Video/TeleH | Pain Management | Florencio Lockett, | | | 2019 | ealt-Sched | | PhD [address] | | | | uled | | [place], [place] | | | | | | [address] | | | | | | [phone] | | | | | | | | +--------+ + + + + | 01/06/ | Office | Plastic Surgery | Kuldip Harrell MD | | | 2019 | Visit | | [address] | | | | | | [place], [place] | | | | | | [address] | | | | | | [phone] | | | | | | | | +--------+ + + + + documented as of this encounter Visit Diagnoses + + | Diagnosis | + + | Morbid obesity (HCC) - Primary Morbid obesity | + + documented in this encounter
--- OUTSIDE RECORDS SUMMARY | ~2019-11-06 | XMS | Encounter Summary ---
Demographics + + + | Address | [address] | | | [place] [address] | + + + | Home Phone | | + + + | Preferred Language | Unknown | + + + | Marital Status | | + + + | Tenriism Affiliation | Unknown | + + + | Race | Unknown | + + + | Ethnic Group | Unknown | + + + Author + + + | Author | [facility] | | | and [place] | + + + | Organization | [facility] | | | and [...] [place], | | | | | [place] [address] | | + + + + + Care Team Providers + +------+ + | Care Taping Supervisor Name | Role | Phone | + +------+ + | Alisha Stovall | PCP | | | PA-C | | | + +------+ + Encounter Details +--------+ + + + + | Date | Type | Department | Care Team | Description | +--------+ + + + + | 09/14/ | Hospital | [place] [facility] | Caity Joel | Intractable migraine | | 2019 | Encounter | [facility] | MD [address] | without aura and | | | | [address] | [place] | without status | | | | [address] [place], [place] | [place] [address] | migrainosus | | | | [address] | [phone] | | | | | [phone] | | | +--------+ + + + [...] + + documented as of this encounter Medications at Time of Discharge + + + +---------+ + + | Medication | Sig | Dispensed | Refills | Start | End Date | | | | | | Date | | + + + +---------+ + + | acetaminophen | Take 325 mg by mouth | | 0 | 07/24/19 | | | (TYLENOL) 325 mg | every 6 hours as | | | 19 | 9 | | tablet | needed. | | | | | + + + +---------+ + + | ascorbic acid | Take 500 mg by mouth | | 0 | 06/26/19 | | | (VITAMIN C) 500 mg | 3 times daily. | | | 19 | 9 | | tablet | | | | | | + + + +---------+ + + | Beclomethasone | Inhale into the | | 0 | | | | Dipropionate (QVAR | lungs. | | | | 0 | | IN) | | | | | | + + + +---------+ + + | Cholecalciferol | Take 2,000 Units by | | 0 | 03/07/20 | | | (VITAMIN D-3) 2000 | mouth Daily. | | | 18 | 9 | | units CAPS | | | | | | + + + +---------+ + + | ergocalciferol | Take 50,000 Units by | | 0 | 03/07/20 | | | (VITAMIN D-2) 50,000 | mouth every 7 days. | | | 18 | 9 | | units capsule | | | | | | + + + +---------+ + + | metFORMIN | Take 1,000 mg by | | 0 | | | | (GLUCOPHAGE) 1000 MG | mouth 2 times daily | | | | 9 | | tablet | (with breakfast & | | | | | | | dinner). | | | | | + + + +---------+ + + | Norgestim-Eth | Take by mouth. | | 0 | | | | Estrad Triphasic | | | | | 0 | | (TRI-PREVIFEM PO) | | | | | | + + + +---------+ + + | nystatin | | | 0 | 07/28/19 | | | (MYCOSTATIN) [id number] | | | | 19 | 9 | | UNIT/GM powder | | | | | | + + + +---------+ + + | ondansetron | Take 4 mg by mouth | | 0 | 07/24/19 | | | (ZOFRAN ODT) 4 mg | as needed. | | | 19 | 0 | | disintegrating | | | | | | | tablet | | | | | | + + + +---------+ + + | pantoprazole | Take 40 mg by mouth | | 0 | | | | (PROTONIX) 40 mg | every morning | | | | 0 | | tablet | (before breakfast). | | | | | + + + +---------+ + + | propranolol | Take 40 mg by mouth | | 0 | | | | (INDERAL) 40 mg | 2 times daily. | | | | 9 | | tablet | | | | | | + + + +---------+ + + | raNITIdine HCl | Take 150 mg by mouth | | 0 | | | | (RANITIDINE 150 MAX | 2 times daily. | | | | 9 | | STRENGTH PO) | | | | | | + + + +---------+ + + | Riboflavin | Take 100 mg by mouth | | 0 | | | | (VITAMIN B-2) 100 MG | Daily. | | | | 9 | | TABS | | | | | | + + + +---------+ + + | topiramate | Take 1 tablet by | 60 | 2 | 08/24/19 | | | (TOPAMAX) 50 MG | mouth 2 times daily. | tablet | | 19 | 9 | | tablet | | | | | | + + + +---------+ + + | ursodiol | Take by mouth. | | 0 | 07/24/19 | | | (ACTIGALL) 300 mg | | | | 19 | 9 | | capsule | | | | | | + + + +---------+ + + | zolpidem (AMBIEN) | Take 10 mg by mouth | | 0 | 06/08/19 | | | 10 mg tablet | as needed. | | | 19 | 0 | + + + +---------+ + + documented as of this encounter Progress Notes Oskar Shelton RRT - 09/14/2018 2:40 PM PDTAwake and drowsy EEG performed, patient araceli ated study well. docum ented in this encounter Procedure Notes Caity Joel MD - 09/14/2018 3:10 PM PDTAssociated Order(s): EEG AWAKE OR DROWSY R OUTINEPre-Procedure Diagnose(s): Intractable migraine without aura and without status migrai nosusName:Maria De Jesus Anna :1990 DATE OF SERVICE: 09/14/2018 STUDY: ELECTROENCEPHALOGRAM INTRODUCTION: This is a digital EEG recording with a record length of 20 minutes. The pat charlene is a 27 y.o. year-old female with intractable migraine headaches. BACKGROUND RHYTHM: The patient has a well defined background pattern of 10 Hz. This activ ity is more prominent posteriorly, symmetrical, and synchronous. It attenuates with eye ope johnny and returns with eye closing. Drowsiness is appreciated by the attenuation and slowing of the patient's background activities. ABNORMAL POTENTIALS: No focal slow waves or epileptiform discharges are seen. HYPERVENTILATION/PHOTIC STIMULATION: Hyperventilation and photic simulation were without s ignificant effect. IMPRESSION: Normal awake and drowsy EEG. Thank you for the opportunity to participate in the care of this patient. Caity Joel MD09/14/201815:10 documented in thi s encounter Plan of Treatment +--------+---------+ + + + | Date | Type | Specialty | Care Team | Description | +--------+---------+ + + + | 11/18/ | Office | Neurology | Shirley Murdock NP | | | 2019 | Visit | | [address] | | | | | | [place], [place] | | | | | | [address] | | | | | | [phone] | | | | | | | | +--------+---------+ + + + | 11/25/ | Office | Cardiology | Katheryn Hammonds DO | | | 2019 | Visit | | [address] | | | | | | [place] | | | | | | [address] | | | | | | | | +--------+---------+ + + + documented as of this encounter Procedures + +--------+ + + + | Procedure Name | Priori | Date/Time | Associated Diagnosis | Comments | | | ty | | | | + +--------+ + + + | EEG AWAKE OR DROWSY | Routin | 09/14/2018 | Intractable | Results for this | | ROUTINE | e | 3:10 PM | migraine without | procedure are in the | | | | PDT | aura and without | results section. | | | | | status migrainosus | | + +--------+ + + + documented in this encounter Results EEG awake or drowsy routine (09/14/2018 3:10 PM PDT) + + + | Narrative | Performed At | + + + | Caity Joel MD 09/14/2018 15:11 Name:Maria De Jesus Villafuerte | | | Shoshana :1990 DATE OF SERVICE: 09/14/2018 | | | STUDY: ELECTROENCEPHALOGRAM INTRODUCTION: This is a | | | digital EEG recording with a record length of 20 minutes. The | | | patient is a 27 y.o. year-old female with intractable migraine | | | headaches. BACKGROUND RHYTHM: The patient has a well defined | | | background pattern of 10 Hz. This activity is more prominent | | | posteriorly, symmetrical, and synchronous. It attenuates with eye | | | opening and returns with eye closing. Drowsiness is appreciated by | | | the attenuation and slowing of the patient's background activities. | | | ABNORMAL POTENTIALS: No focal slow waves or epileptiform | | | discharges are seen. HYPERVENTILATION/PHOTIC STIMULATION: | | | Hyperventilation and photic simulation were without significant | | | effect. IMPRESSION: Normal awake and drowsy EEG. Thank you | | | for the opportunity to participate in the care of this patient. | | | Caity Joel MD09/14/201815:10 Electronically signed | | + + + documented in this encounter Visit Diagnoses + + | Diagnosis | + + | Intractable migraine without aura and without status migrainosus Migraine without | | aura, with intractable migraine, so stated, without mention of status migrainosus | + + documented in this encounter"
--- OUTSIDE RECORDS SUMMARY | ~2019-11-06 | XMS | Encounter Summary ---
Demographics + + + | Address | [address] | | | [place] [address] | + + + | Home Phone | | + + + | Preferred Language | Unknown | + + + | Marital Status | | + + + | Christianity Affiliation | NRP | + + + | Race | White | + + + | Ethnic Group | Not or | + + + Author + + + | Author | [facility] | + + + | Organization | [facility] | + + + | Address | Unknown | + + + | Phone | Unavailable | + + + Support + + +---------+ + | Name | Relationship | Address | Phone | + + +---------+ + | Jeovanny Hernández | ECON | Unknown | | + + +---------+ + Care Team Providers + +------+ + | Care Last Greaser Name | Role | Phone | + +------+ + | Alisha Stovall PA-C | PCP | | + +------+ + Reason for Referral Consultation (Routine) + +--------+ + + + + | Status | Reason | Specialty | Diagnoses / | Referred By | Referred To | | | | | Procedures | Contact | Contact | + +--------+ + + + + | Pending | | Gastroenterol | Diagnoses | Cierra, | Jennie, | | Review | | ogy | S/P gastric | Kenan Santos MD | Cassidy Morton MD | | | | | bypass | [address] | | | | | Esophageal | [address] | Ave | | | | | dysmotility | [place], [place] | [facility] [place] | | | | | Procedures | [address] | [address] | | | | | CONSULT TO | Phone: | Phone: | | | | | GASTROENTERO | [phone] | [phone] | | | | | LOGY | Fax: | Fax: | | | | | | [phone] | [phone] | + +--------+ + + + + Encounter Details +--------+--------+ + + + | Date | Type | Department | Care Team | Description | +--------+--------+ + + + | 05/10/ | Refill | Digestive Health | Kenan Norton, | | | 2019 | | Center at [facility] [address] | MD [address] | | | | | [address] | [place], [place] | | | | | for Health and | [address] | | | | | Healing, [address] | [phone] | | | | | [place], [place] | | | | | | [address] | | | | | | [phone] | | | +--------+--------+ + + + [...] [address] | | | | | | [place], [place] | | | | | | [address] | | | | | | [phone] | | | | | | | | +--------+ + + + + | 11/17/ | Video/TeleH | Pain Management | Florencio Lockett, | | | 2019 | ealth-Sched | | PhD [address] | | | | uled | | [place], [place] | | | | | | [address] | | | | | | [phone] | | | | | | | | +--------+ + + + + | 12/01/ | Video/TeleH | Pain Management | Florencio Lockett, | | | 2019 | ealth-Sched | | PhD [address] | | | | uled | | [place], [place] | | | | | | [address] | | | | | | [phone] | | | | | | | | +--------+ + + + + | 01/06/ | Office | Plastic Surgery | Kuldip Harrell MD | | | 2019 | Visit | | [address] | | | | | | [place], [place] | | | | | | [address] | | | | | | [phone] | | | | | | | | +--------+ + + + + documented as of this encounter Visit Diagnoses + + | Diagnosis | + + | S/P gastric bypass - Primary Bariatric surgery status | + + | Esophageal dysmotility Dyskinesia of esophagus | + + documented in this encounter"
--- OUTSIDE RECORDS SUMMARY | ~2019-11-06 | XMS | Encounter Summary ---
Demographics + + + | Address | [address] | | | [place] [address] | + + + | Home Phone [...] Team Providers + +------+ + | Care Executive Director Contract Shop Name | Role | Phone | + [...] | | | Surg [facility] | [facility] [address] | | | | | | [address] | | | | | | Ave Center | Center for | | | | | | for Health | Health and | | | | | | and Healing, | Healing, | | | | | | Building [address] | [address] | | | | | | [place], | [place], [place] | | | | | | [place] | [address] | | | | | | [address] | Phone: | | | | | | Phone: | [phone] | | | | | | [phone] | Fax: | | | | | | Fax: | [phone] | | | | | | [phone] | | +--------+--------+ + + + + Encounter Details +--------+---------+ + + + | Date | Type | Department | Care Team | Description | +--------+---------+ + + + | 10/13/ | Office | Digestive Health | Lisa Medina RD | Morbid obesity (HCC) | | 2018 | Visit | Center at [facility] | [address] | (Primary Dx); | | | | [address] | M[place] [facility], | Diabetes mellitus | | | | for Health and | [place] [address] | treated with oral | | | | [facility] 2 | [phone] | medication (HCC) | | | | [place], [place] | | | | | | [address] | | | | | | [phone] | | | +--------+---------+ + + + [...] + + + + | Weight | 181.9 kg (401 lb) | 10/13/2017 2:12 PM | | | | | PDT | | + + + + + | Height | 182.9 cm (6') | 10/13/2017 2:12 PM | | | | | PDT | | + + + + + | Body Mass Index | 54.39 | 10/13/2017 2:12 PM | | | | | PDT | | + + + + + documented in this encounter Progress Notes Lisa Medina, JEFF - 10/13/2017 2:00 PM PDT Referring Provider: No Referring Provider Per Patient [facility], Pre-Bariatric Surgery Evaluation Initial diet consultation prior to having Nadya-En-Y gastric bypass surgery or Sleeve Gastre ctomy. Documented Time of Visit: 2:08 until 3:28 (80 minutes pvqg-ko-zyko with patient) SUBJECTIVE: Pt comes in with her and support dog from [place]. Patient viewed online seminar prior to visit. What have you been doing to prepare for surgery: (research/talking to people that have had surgery). Working closely with OB & recently diagnosed with PCOS. Hoping to have another chi ld (is aware of recommendations for how long to wait after surgery). Questions/Information desired today: Noting specific to start with. Asks questions througho ut the visit Goals & reasons why patient wants to have bariatric surgery: Improve her health. To be able to take a bath (can't fit into their tub) Food Allergies: Yes - salmon (hives and vomiting). All other fish ok Food Intolerances: Cheese causes constipation (was hospitalized for impaction in 2011). Ta jeanette Protonix. Having stomach pains in the past couple weeks. UGI last year. CT of abdomen up coming. Taking Carafate. Lactose Intolerance: No Emotional Eating: boredom in the evening Weight change control analyst the past year: gaining. Around current weight x 5 years Previous weight loss attempts: (Pills, diet plans) Are you able exercise? Yes Current Physical Exercise: Walks at night (30 minutes max). Gets blisters. Met with PT carina ferrer Food recall: Awakes at 7-9am. Does not sleep well Bkfst:Hot dog wrapped in cheese or applesauce or hot pockets Lunch: bologna or turkey sandwiches, mac and cheese, was eating a lot of fast food 3-4 jv hs ago ( lost job) Dinner: @6 chicken + mashed potato and gravy and corn, ribs + pasta + green beans or corn. Other meats - hamburger or pork tenderloin. May also have tuna casserole Late night eating is a problem per patient - little bag of chips or pickles Snacks: likes fruit, chips, crackers Beverages: Mt Dew, SF carbonated beverages. Likes SF flavored water, Diet lesvia green tea OBJECTIVE: Height: Ht Readings from Last 1 Encounters: 10/13/17 1.829 m (6') Weight: Wt Readings from Last 1 Encounters: 10/13/17 181.9 kg (401 lb) BMI: Body mass index is 54.39 kg/m. Past Medical History: Includes DM and PCOS Medications: See list in Epic snap shot Medications for Diabetes: Oral Checking blood glucose: no - not required to. Dietary Supplements: Multivitamin - gummies. Used to take B2 and taking B-12 Labs: see Results Review for current labs (if available) Nutrition Diagnosis: Morbid Obesity as evidenced by BMI of Body mass index is 54.39 kg/m .. Seeing [facility]OOFER next month, discussed 10% weight loss goal. Factors contributing to obesity: Emotional eating Lack of a regular physical activity program Joint pain as a barrier to physical activity Large portions Intake of excessive empty calories Metabolic Pre-Surgery Diet: Provided written diet suggestions to help patient lose weight before surgery. -Eat within one hour of waking, then every 3-4 waking hours -Include protein with all meals & snacks -Use healthy plate model or frozen entree (~300 calories, < 600 mg sodium) at lunch & dinn er -Begin keeping daily food logs -Choose foods & beverages with < 14 g sugar & < 5 g fat per serving -Eliminate liquid calories and carbonation; limit caffeine to 16 oz/day Discussed behavior changes to practice before surgery to prepare for surgery. -Begin fluids from meals by 30 minutes before and after -Sip fluids throughout the day, aim for 64 oz/day (non-caloric, non-caffeinated, non-carbo nated) -Begin practicing mindful eating Explore exercise program options Post-surgery diet education: Provided visual, verbal, & written information on all aspects of bariatric surgery. Discuss ed lifelong behavior changes, proper diet selections, and exercise. Encouraged patient to fo llow up with dietitian pre- or post-surgery. Written education provided: Provided and reviewed an instructional handout (bariatric surgery notebook) with the siddharth barfield on post-surgery diet progression, sample menus, behavior modifications, food items, and vi tamin and mineral supplements needed after surgery. Emphasized the importance of a regular p hysical activity program of 30-60 minutes per day to maintain weight loss post-surgery. Patient's Comprehension: The patient is: Receptive Stage of change: Preparation Barrier(s) to education: No Learning style: Patient is a Visual learner/Verbal learner Information provided in writing, and used visual aids to demonstrate food portions post-guanako anoop and size of stomach after surgery. Expected Outcome: I think the patient will do moderately if following all lifestyle and be havioral changes discussed today. Appears motivated. Good support from and OB. Patient verbalizes understanding that surgery is a tool to help achieve and maintain weight loss but that surgery will not eliminate the problems that led to weight gain. Yes, appear s to. GOAL: The patient's goal is to have weight loss surgery to maintain weight loss and improve other health conditions. 1. Continue to practice behavioral changes to prepare for surgery. 2. Increase physical activity. 3. Review all information provided for post surgery diet progression in bariatric surger y notebook. Attend 2 pre-surgery classes. 4. Call or send Gamzeehart message to dietitian with any questions. Contact information was provided. Follow up with dietitian 1-2 weeks after surgery at first post-op visit. Lisa Medina RD, [facility], [facility] Bariatrics [phone] documented in this enco unter Plan of Treatment +--------+ + + + + | Date | Type | Specialty | Care Team | Description | +--------+ + + + + | 11/13/ | Office | Gastroenterology | Cassidy Schneider, | | 2019 | Visit | | [address] | | | | | | [place], [place] | | | | | | [address] | | | | | | [phone] | | | | | | | | +--------+ + + + + | 11/17/ | Video/TeleH | Pain Management | Florencio Lockett, | | 2019 | ealt-Sched | | PhD [address] | | | | uled | | [place], [place] | | | | | | [address] | | | | | | [phone] | | | | | | | | +--------+ + + + + | 12/01/ | Video/TeleH | Pain Management | Florencio Lockett, | | | 2019 | ealth-Sched | | PhD [address] | | | | uled | | [place], [place] | | | | | | [address] | | | | | | [phone] | | | | | | | | +--------+ + + + + | 01/06/ | Office | Plastic Surgery | Kuldip Harrell MD | | | 2019 | Visit | | [address] | | | | | | [place], [place] | | | | | | [address] | | | | | | [phone] | | | | | | | | +--------+ + + + + documented as of this encounter Procedures + +--------+ + + + | Procedure Name | Priori | Date/Time | Associated Diagnosis | Comments | | | ty | | | | + +--------+ + + + | [place] MNT INITIAL | Routin | 10/13/2017 | Morbid obesity | | | ASSESSMNT X15MIN | e | 4:12 PM | (HCC) Diabetes | | | | | PDT | mellitus treated | | | | | | with oral medication | | | | | | (HCC) | | + +--------+ + + + documented in this encounter Visit Diagnoses + + | Diagnosis | + + | Morbid obesity (HCC) - Primary Morbid obesity | + + | Diabetes mellitus treated with oral medication (HCC) | + + documented in this encounter"
--- OUTSIDE RECORDS SUMMARY | ~2019-11-06 | XMS | Encounter Summary ---
Demographics + + + | Address | [address] | | | [place] [address] | + + + | Home Phone | | + + + | Preferred Language | Unknown | + + + | Marital Status | | + + + | Congregation Affiliation | Unknown | + + + | Race | Unknown | + + + | Ethnic Group | Unknown | + + + Author + + + | Author | [facility] | | | and [place] | + + + | Organization | [facility] | | | and [place] | + + + | Address | Unknown | + + + | Phone | Unavailable | + + + Support + + + + + | Name | Relationship | Address | Phone | + + + + + | aTiwo Anna | ECON | [address] | | | | | [place], | | | | | [place] [address] | | + + + + + Care Team Providers + +------+ + | Care Mobile Application Architect Name | Role | Phone | + +------+ + | Alisha Stovall | PCP | | | PA-C | | | + +------+ + Encounter Details +--------+ + + + + | Date | Type | Department | Care Team | Description | +--------+ + + + + | 02/22/ | Orders Only | [facility] | Sarah Barba | | | 2017 | | CONVERSION [address] | [place] [address] | | | | [address] | [place], | | | | | [place], [place] | [place] [address] | | | | | [address] | [phone] | | | | | [phone] | | | +--------+ + + + [...] | | | + +---+---+---+ + + + | Sex Assigned at | Date Recorded | | | | + + + | Not on file | | + + + documented as of this encounter Plan of Treatment +--------+---------+ + + + | Date | Type | Specialty | Care Team | Description | +--------+---------+ + + + | 11/18/ | Office | Neurology | Shirley Murdock NP | | | 2019 | Visit | | [address] [place] | | | | | | [place] | | | | | | [address] | | | | | | [phone] | | | | | | | | +--------+---------+ + + + | 11/25/ | Office | Cardiology | Katheryn Hammonds DO | | | 2019 | Visit | | [address] | | | | | | [place] | | | | | | [address] | | | | | | | | +--------+---------+ + + + documented as of this encounter Procedures + +--------+ + + + | Procedure Name | Priori | Date/Time | Associated Diagnosis | Comments | | | ty | | | | + +--------+ + + + | ECHO INTERPRETATION | Routin | 02/22/2018 | | Results for this | | OF OUTSIDE FILMS | e | 3:46 PM | | procedure are in the | | | | PDT | | results section. | + +--------+ + + + documented in this encounter Results ECHO Interpretation of Outside Films (02/22/2018 3:46 PM PDT) + + | Specimen | + + | | + + + + + | Impressions | Performed At | + + + | 1. The left ventricle is normal in size, wall thickness and systolic | | | function EF 55-60%. 2. The right ventricle is normal in size and | | | function. 3. There is no pericardial effusion. | | + + + + + + | Narrative | Performed At | + + + | Patient Name: Maria De Jesus Anna Date of : 1990 | | | Performing Physician: Brooke Campbell | | | | | | INDICATIONS Chest pain, Edema, Bariatric pre op | | | CONCLUSIONS 1. The left ventricle is normal in size, | | | wall thickness and systolic function EF 55-60%. 2. The right | | | ventricle is normal in size and function. 3. There is no pericardial | | | effusion. FINDINGS -------- ECG rhythm: Sinus rhythm. Study: A | | | 2-dimensional transthoracic echocardiogram with m-mode, spectral and | | | color flow Doppler was perfomed. Study: This was a technically | | | difficult study with suboptimal views. Study: Suboptimal image | | | quality - poor subcostal views. Left Ventricle: Overall left | | | ventricular systolic function is normal with, an EF between 55 - 60 %. | | | Left Ventricle: The left ventricle cavity size is normal. Left | | | Ventricle: Left ventricular wall thickness is normal. Left Ventricle: | | | No regional wall motion abnormalities. Left Ventricle: The diastolic | | | filling pattern is normal for the age of the patient. Right | | | Ventricle: The right ventricle is normal in size and function. Left | | | Atrium: The left atrium is normal in size. Right Atrium: The right | | | atrium is normal in size. Aortic Valve: The aortic valve is | | | trileaflet, and appears anatomically normal. No aortic stenosis or | | | regurgitation. Mitral Valve: The mitral valve is normal. Mitral | | | Valve: There is trace mitral regurgitation. Tricuspid Valve: The | | | tricuspid valve appears structurally normal. Tricuspid Valve: Trace | | | tricuspid regurgitation present. Tricuspid Valve: There is no | | | evidence of pulmonary hypertension. Tricuspid Valve: The right | | | ventricular systolic pressure (pulmonary artery systolic pressure), as | | | measured by Doppler, is 21.75mmHg. Pulmonic Valve: The pulmonic | | | valve was not well visualized. Pericardium: There is no pericardial | | | effusion. Pericardium: No pleural effusion seen. IVC/Hepatic Veins: | | | The IVC was not well visualized. Aorta: The aortic root, ascending | | | aorta and aortic arch are normal. MEASUREMENTS Ao | | | asc: 2.91 cm Ao Diam: 3.[address] junct: 2.83 cm LA | | | Diam: 4.31 cm LA Major: 4.74 cm EDV(Teich): 149.94 ml | | | IVSd: 0.96 cm LVIDd: 5.54 cm LVPWd: 0.99 cm LVOT Area: | | | 4.04 cm2 LVOT Diam: 2.26 cm %FS: 29.98 % EF(Teich): 56.59 | | | % ESV(Teich): 65.08 ml LVIDs: 3.87 cm SV(Teich): 84.86 ml | | | RA Major: 4.74 cm RV Major: 7.44 cm RVIDd: 2.95 cm TV Ellen | | | Diam: 3.19 cm Ao Root: 2.88 cm Ao Diam SVals: 3.33 cm | | | LVEF MOD A2C: 50.89 % SV MOD A2C: 55.04 ml LVEF MOD A4C: | | | 57.41 % SV MOD A4C: 61.95 ml EF Biplane: 54.83 % LVEDV MOD | | | BP: 112.15 ml LVESV MOD BP: 50.65 ml LVEDV MOD A2C: 108.16 | | | ml LVLd A2C: 8.25 cm LVEDV MOD A4C: 107.90 ml LVLd A4C: | | | 8.93 cm LVESV MOD A2C: 53.11 ml LVLs A2C: 7.22 cm LVESV MOD | | | A4C: 45.94 ml LVLs A4C: 7.63 cm LAESV(A-L): 48.56 ml LAESV | | | Index (A-L): 17.34 ml/m2 LAAs A2C: 19.05 cm2 LAESV A-L A2C: | | | 55.38 ml LALs A2C: 5.56 cm LAAs A4C: 13.87 cm2 LAESV A-L | | | A4C: 35.36 ml LALs A4C: 4.62 cm RAAs: 13.39 cm2 RAESV A-L: | | | 32.25 ml RAESV MOD: 31.42 ml RALs: 4.71 cm TAPSE: 2.73 | | | cm AV maxP.37 mmHg AV meanP.91 mmHg AV Vmax: 1.35 | | | m/s AV Vmean: 0.92 m/s AV VTI: 24.65 cm MELANIE Vmax: 3.79 | | | cm2 MELANIE (VTI): 4.08 cm2 LVOT maxP.51 mmHg LVOT meanPG: | | | 3.19 mmHg LVSI Dopp: 35.92 ml/m2 LVSV Dopp: 100.60 ml LVOT | | | Vmax: 1.27 m/s LVOT Vmean: 0.81 m/s LVOT VTI: 24.88 cm MV | | | A Edmundo: 0.55 m/s MV Dec Chisago: 3.60 m/s2 MV DecT: 218.00 ms | | | MV E Edmundo: 0.78 m/s MV E/A Ratio: 1.40 MV PHT: 63.22 ms | | | MVA By PHT: 3.47 cm2 Septal e': 0.08 m/s Septal E/e': 8.76 | | | Lateral e': 0.11 m/s Lateral E/e': 6.67 RAP: 5 mmHg RVSP: | | | 21.75 mmHg TR maxP.75 mmHg TR Vmax: 2.04 m/s | | | Trade Show Manager: JAKE Authenticated by: Brooke Campbell Report Date/Time: | | | 02-22-2018 20:34:39 | | + + + + + | Procedure Note | + + | Rojelio Page Conversion - 12/13/2018 5:10 PM PDT Patient Name: Chan Anna of | | : 1990 Performing Physician: Brooke | | [facility] INDICATIONS------ | | -----Chest pain, Edema, Bariatric pre op CONCLUSIONS 1. The left ventricle is | | normal in size, wall thickness and systolic function EF 55-60%.2. The right ventricle is | | normal in size and function.3. There is no pericardial effusion. FINDINGS--------ECG | | rhythm: Sinus rhythm.Study: A 2-dimensional transthoracic echocardiogram with m-mode, | | spectral and color flow Doppler was perfomed.Study: This was a technically difficult | | study with suboptimal views.Study: Suboptimal image quality - poor subcostal views.Left | | Ventricle: Overall left ventricular systolic function is normal with, an EF between 55 - | | 60 %.Left Ventricle: The left ventricle cavity size is normal.Left Ventricle: Left | | ventricular wall thickness is normal.Left Ventricle: No regional wall motion | | abnormalities.Left Ventricle: The diastolic filling pattern is normal for the age of the | | patient.Right Ventricle: The right ventricle is normal in size and function.Left | | Atrium: The left atrium is normal in size.Right Atrium: The right atrium is normal in | | size.Aortic Valve: The aortic valve is trileaflet, and appears anatomically normal. No | | aortic stenosis or regurgitation.Mitral Valve: The mitral valve is normal.Mitral Valve: | | There is trace mitral regurgitation.Tricuspid Valve: The tricuspid valve appears | | structurally normal.Tricuspid Valve: Trace tricuspid regurgitation present.Tricuspid | | Valve: There is no evidence of pulmonary hypertension.Tricuspid Valve: The right | | ventricular systolic pressure (pulmonary artery systolic pressure), as measured by | | Doppler, is 21.75mmHg.Pulmonic Valve: The pulmonic valve was not well | | visualized.Pericardium: There is no pericardial effusion.Pericardium: No pleural | | effusion seen.IVC/Hepatic Veins: The IVC was not well visualized.Aorta: The aortic root, | | ascending aorta and aortic arch are normal. MEASUREMENTS Ao asc: 2.91 | | cmAo Diam: 3.[address] junct: 2.83 cmLA Diam: 4.31 cmLA Major: 4.74 | | cmEDV(Teich): 149.94 mlIVSd: 0.96 cmLVIDd: 5.54 cmLVPWd: 0.99 cmLVOT Area: | | 4.04 ah1RADS Diam: 2.26 cm%FS: 29.98 %EF(Teich): 56.59 %ESV(Teich): 65.08 | | mlLVIDs: 3.87 cmSV(Teich): 84.86 mlRA Major: 4.74 cmRV Major: 7.44 cmRVIDd: | | 2.95 cmTV Ellen Diam: 3.19 cmAo Root: 2.88 cmAo Diam SVals: 3.33 cmLVEF MOD A2C: | | 50.89 %SV MOD A2C: 55.04 mlLVEF MOD A4C: 57.41 %SV MOD A4C: 61.95 mlEF Biplane: | | 54.83 %LVEDV MOD BP: 112.15 mlLVESV MOD BP: 50.65 mlLVEDV MOD A2C: 108.16 mlLVLd | | A2C: 8.25 cmLVEDV MOD A4C: 107.90 mlLVLd A4C: 8.93 cmLVESV MOD A2C: 53.11 mlLVLs | | A2C: 7.22 cmLVESV MOD A4C: 45.94 mlLVLs A4C: 7.63 cmLAESV(A-L): 48.56 mlLAESV | | Index (A-L): 17.34 ml/m2LAAs A2C: 19.05 [id number] A-L A2C: 55.38 mlLALs A2C: 5.56 | | cmLAAs A4C: 13.87 mi9FTEGR A-L A4C: 35.36 mlLALs A4C: 4.62 cmRAAs: 13.39 | | [id number] A-L: 32.25 mlRAESV MOD: 31.42 mlRALs: 4.71 cmTAPSE: 2.73 cmAV maxPG: | | 7.37 mmHgAV meanP.91 mmHgAV Vmax: 1.35 m/Abe Vmean: 0.92 m/Abe VTI: 24.65 | | cmAVA Vmax: 3.79 cm2AVA (VTI): 4.08 eg1ALGU maxP.51 mmHgLVOT meanP.19 | | mmHgLVSI Dopp: 35.92 ml/m2LVSV Dopp: 100.60 mlLVOT Vmax: 1.27 m/sLVOT Vmean: | | 0.81 m/sLVOT VTI: 24.88 cmMV A Edmundo: 0.55 m/sMV Dec Chisago: 3.60 m/s2MV DecT: | | 218.00 msMV E Edmundo: 0.78 m/sMV E/A Ratio: 1.40MV PHT: 63.22 msMVA By PHT: 3.47 | | zm6Yuwjgh e': 0.08 m/sSeptal E/e': 8.76Lateral e': 0.11 m/sLateral E/e': | | 6.67RAP: 5 mmHgRVSP: 21.75 mmHgTR maxP.75 mmHgTR Vmax: 2.04 m/s | | Trade Show Manager: GUIDOuthenticated by: Brooke Ellis Date/Time: 02-22-2018 20:34:39 | | IMPRESSION: 1. The left ventricle is normal in size, wall thickness and systolic | | function EF 55-60%.2. The right ventricle is normal in size and function.3. There is no | | pericardial effusion. | |Ao Diam: 3.18 cm | |Ao st junct: 2.83 cm | |LA Diam: 4.31 cm | |LA Major: 4.74 cm | |EDV(Teich): 149.94 ml | |IVSd: 0.96 cm | |LVIDd: 5.54 cm | |LVPWd: 0.99 cm | |LVOT Area: 4.04 cm2 | |LVOT Diam: 2.26 cm | |%FS: 29.98 % | |EF(Teich): 56.59 % | |ESV(Teich): 65.08 ml | |LVIDs: 3.87 cm | |SV(Teich): 84.86 ml | |RA Major: 4.74 cm | |RV Major: 7.44 cm | |RVIDd: 2.95 cm | |TV Ellen Diam: 3.19 cm | |Ao Root: 2.88 cm | |Ao Diam SVals: 3.33 cm | |LVEF MOD A2C: 50.89 % | |SV MOD A2C: 55.04 ml | |LVEF MOD A4C: 57.41 % | |SV MOD A4C: 61.95 ml | |EF Biplane: 54.83 % | |LVEDV MOD BP: 112.15 ml | |LVESV MOD BP: 50.65 ml | |LVEDV MOD A2C: 108.16 ml | |LVLd A2C: 8.25 cm | |LVEDV MOD A4C: 107.90 ml | |LVLd A4C: 8.93 cm | |LVESV MOD A2C: 53.11 ml | |LVLs A2C: 7.22 cm | |LVESV MOD A4C: 45.94 ml | |LVLs A4C: 7.63 cm | |LAESV(A-L): 48.56 ml | |LAESV Index (A-L): 17.34 ml/m2 | |LAAs A2C: 19.05 cm2 | |LAESV A-L A2C: 55.38 ml | |LALs A2C: 5.56 cm | |LAAs A4C: 13.87 cm2 | |LAESV A-L A4C: 35.36 ml | |LALs A4C: 4.62 cm | |RAAs: 13.39 cm2 | |RAESV A-L: 32.25 ml | |RAESV MOD: 31.42 ml | |RALs: 4.71 cm | |TAPSE: 2.73 cm | |AV maxP.37 mmHg | |AV meanP.91 mmHg | |AV Vmax: 1.35 m/s | |AV Vmean: 0.92 m/s | |AV VTI: 24.65 cm | |MELANIE Vmax: 3.79 cm2 | |MELANIE (VTI): 4.08 cm2 | |LVOT maxP.51 mmHg | |LVOT meanP.19 mmHg | |LVSI Dopp: 35.92 ml/m2 | |LVSV Dopp: 100.60 ml | |LVOT Vmax: 1.27 m/s | |LVOT Vmean: 0.81 m/s | |LVOT VTI: 24.88 cm | |MV A Edmundo: 0.55 m/s | |MV Dec Chisago: 3.60 m/s2 | |MV DecT: 218.00 ms | |MV E Edmundo: 0.78 m/s | |MV E/A Ratio: 1.40 | |MV PHT: 63.22 ms | |MVA By PHT: 3.47 cm2 | |Septal e': 0.08 m/s | |Septal E/e': 8.76 | |Lateral e': 0.11 m/s | |Lateral E/e': 6.67 | |RAP: 5 mmHg | |RVSP: 21.75 mmHg | |TR maxP.75 mmHg | |TR Vmax: 2.04 m/s | | | |Trade Show Manager: JAKE | |Authenticated by: Brooke Campbell | |Report Date/Time: 02-22-2018 20:34:39 | | | |IMPRESSION: | |1. The left ventricle is normal in size, wall thickness and systolic function EF 55-60%. | |2. The right ventricle is normal in size and function. | |3. There is no pericardial effusion. | + + documented in this encounter Visit Diagnoses Not on filedocumented in this encounter"
--- OUTSIDE RECORDS SUMMARY | ~2019-11-06 | XMS | Encounter Summary ---
Demographics + + + | Address | [address] | | | [place] [address] | + + + | Home Phone [...] Team Providers + +------+ + | Care Housesmith Name | Role | Phone | + +------+ + | Alisha Stovall PA-C | PCP | | + +------+ + Encounter Details +--------+ + + + + | Date | Type | Department | Care Team | Description | +--------+ + + + + | 08/06/ | Abstract | Digestive Health | Kenan Norton, | | | 2019 | | Center at [facility] [address] | MD [address] | | | | | [address] [place] | [facility] [place] | | | | | for Health and | [address] | | | | | [place], [address] | [phone] | | | | | [place], [place] | | | | | | [address] | | | | | | [phone] | | | +--------+ + + + [...] [address] | | | | | | [place], [place] | | | | | | [address] | | | | | | [phone] | | | | | | | | +--------+ + + + + | 11/17/ | Video/TeleH | Pain Management | Florencio Lockett, | | | 2019 | ealth-Sched | | PhD [address] | | | | uled | | [place], [place] | | | | | | [address] | | | | | | [phone] | | | | | | | | +--------+ + + + + | 12/01/ | Video/TeleH | Pain Management | Florencio Lockett, | | | 2019 | ealth-Sched | | PhD [address] | | | | uled | | [place], [place] | | | | | | [address] | | | | | | [phone] | | | | | | | | +--------+ + + + + | 01/06/ | Office | Plastic Surgery | Kuldip Harrell MD | | | 2019 | Visit | | [address] | | | | | | [place], [place] | | | | | | [address] | | | | | | [phone] | | | | | | | | +--------+ + + + + documented as of this encounter Visit Diagnoses Not on filedocumented in this encounter"
--- OUTSIDE RECORDS SUMMARY | ~2019-11-06 | XMS | Encounter Summary ---
Demographics + + + | Address | [address] | | | [place] [address] | + + + | Home Phone | | + + + | Preferred Language | Unknown | + + + | Marital Status | | + + + | Orthodox Affiliation | NRP | + + + | Race | White | + + + | Ethnic Group | Not or | + + + Author + + + | Author | [facility] | + + + | Organization | [facility] | + + + | Address | Unknown | + + + | Phone | Unavailable | + + + Support + + +---------+ + | Name | Relationship | Address | Phone | + + +---------+ + | Jeovanny Hernández | ECON | Unknown | | + + +---------+ + Care Team Providers + +------+ + | Care Electrical Products Engineer Name | Role | Phone | + +------+ + | Alisha Stovall PA-C | PCP | | + +------+ + Encounter Details +--------+ + + + + | Date | Type | Department | Care Team | Description | +--------+ + + + + | 12/21/ | MyChart | Digestive Health | oJdy Watson ACNP | RE: IVF | | 2019 | Encounter | [facility] at [facility] | [address] | | | | | [place] [facility] | [place], | | | | | for Health and | [place] [address] | | | | | Healing, [address] | [phone] | | | | | [place], [place] | | | | | | [address] | | | | | | [phone] | | | +--------+ + + + [...] [address] | | | | | | [place], [place] | | | | | | [address] | | | | | | [phone] | | | | | | | | +--------+ + + + + | 11/17/ | Video/TeleH | Pain Management | Florencio Lockett, | | | 2019 | ealth-Sched | | PhD [address] | | | | uled | | [place], [place] | | | | | | [address] | | | | | | [phone] | | | | | | | | +--------+ + + + + | 12/01/ | Video/TeleH | Pain Management | Florencio Lockett, | | | 2019 | ealth-Sched | | PhD [address] | | | | uled | | [place], [place] | | | | | | [address] | | | | | | [phone] | | | | | | | | +--------+ + + + + | 01/06/ | Office | Plastic Surgery | Kuldip Harrell MD | | | 2019 | Visit | | [address] | | | | | | [place], [place] | | | | | | [address] | | | | | | [phone] | | | | | | | | +--------+ + + + + documented as of this encounter Visit Diagnoses Not on filedocumented in this encounter"
--- OUTSIDE RECORDS SUMMARY | ~2019-11-06 | XMS | Encounter Summary ---
Demographics + + + | Address | [address] | | | [place] [address] | + + + | Home Phone | | + + + | Preferred Language | Unknown | + + + | Marital Status | | + + + | Restorationist Affiliation | NRP | + + + [...] Team Providers + +------+ + | Care Commercial Front Load Operator Name | Role | Phone | + +------+ + | Alisha Stovall PA-C | PCP | | + +------+ + Encounter Details +--------+ + + + + | Date | Type | Department | Care Team | Description | +--------+ + + + + | 10/28/ | MyChart | Digestive Health | Kenan Norton, | 2 weeks intake | | 2020 | Encounter | Center at [facility] [address] | MD [address] | | | | | [address] | [facility] [place] | | | | | for Health and | [address] | | | | | Healing, [address] | [phone] | | | | | [place], [place] | | | | | | [address] | | | | | | [phone] | | | +--------+ + + + [...] [address] | | | | | | [place], [place] | | | | | | [address] | | | | | | [phone] | | | | | | | | +--------+ + + + + | 11/17/ | Video/TeleH | Pain Management | Florencio Lockett, | | | 2019 | ealth-Sched | | PhD [address] | | | | uled | | [place], [place] | | | | | | [address] | | | | | | [phone] | | | | | | | | +--------+ + + + + | 12/01/ | Video/TeleH | Pain Management | Florencio Lockett, | | | 2019 | ealth-Sched | | PhD [address] | | | | uled | | [place], [place] | | | | | | [address] | | | | | | [phone] | | | | | | | | +--------+ + + + + | 01/06/ | Office | Plastic Surgery | Kuldip Harrell MD | | | 2019 | Visit | | [address] | | | | | | [place], [place] | | | | | | [address] | | | | | | [phone] | | | | | | | | +--------+ + + + + documented as of this encounter Visit Diagnoses Not on filedocumented in this encounter"
--- OUTSIDE RECORDS SUMMARY | ~2019-11-06 | XMS | Encounter Summary ---
Demographics + + + | Address | [address] | | | [place] [address] | + + + | Home Phone | | + + + | Preferred Language | Unknown | + + + | Marital Status | | + + + | Evangelical Affiliation | NRP | + + + [...] Team Providers + +------+ + | Care Cloth Hand Name | Role | Phone | + +------+ + | Alisha Stovall PA-C | PCP | | + +------+ + Encounter Details +--------+ + + + + | Date | Type | Department | Care Team | Description | +--------+ + + + + | 09/26/ | Pharmacy | Outpatient Retail | | | | 2019 | Visit | [facility] | | | | | | [address] | | | | | | [place], [place] | | | | | | [address] | | | | | | [phone] | | | +--------+ + + + [...] [address] | | | | | | [place], [place] | | | | | | [address] | | | | | | [phone] | | | | | | | | +--------+ + + + + | 11/17/ | Video/TeleH | Pain Management | Florencio Lockett, | | | 2019 | ealth-Sched | | PhD [address] | | | | uled | | [place], [place] | | | | | | [address] | | | | | | [phone] | | | | | | | | +--------+ + + + + | 12/01/ | Video/TeleH | Pain Management | Florencio Lockett G, | | | 2019 | ealth-Sched | | PhD [address] | | | | uled | | [facility] [place] | | | | | | [address] | | | | | | [phone] | | | | | | | | +--------+ + + + + | 01/06/ | Office | Plastic Surgery | Kuldip Harrell MD | | | 2019 | Visit | | [address] | | | | | | [place], [place] | | | | | | [address] | | | | | | [phone] | | | | | | | | +--------+ + + + + documented as of this encounter Visit Diagnoses Not on filedocumented in this encounter"
--- OUTSIDE RECORDS SUMMARY | ~2019-11-06 | XMS | Encounter Summary ---
Demographics + + + | Address | [address] | | | [place] [address] | + + + | Home Phone | | + + + | Preferred Language | Unknown | + + + | Marital Status | | + + + | Sikhism Affiliation | NRP | + + + [...] Team Providers + +------+ + | Care Facilities Maintenance Manager Name | Role | Phone | + +------+ + | Alisha Stovall PA-C | PCP | | + +------+ + Encounter Details +--------+ + + + + | Date | Type | Department | Care Team | Description | +--------+ + + + + | 02/06/ | Hospital | Radiology/Imaging | Sarah Barba | | | 2018 | Encounter | Lab at [facility] [address] | SHANICE Villafuerte [address] | | | | | [facility] | [facility] | | | | | Health and Healing, | [place] [address] | | | | | [place] [address] [facility] | [phone] | | | | | [place], [place] | | | | | | [address] | | | | | | [phone] | | | +--------+ + + + [...] + + | ascorbic acid | Take 1 tablet by | 270 | 0 | 11/14/19 | | | (vitamin C) (VITAMIN | mouth three times | tablet | | 18 | 8 | | C) 500 mg oral | daily. | | | | | | tablet | | | | | | + + + +---------+ + + | Ferrous Gluconate | Take 1 tablet by | 270 | 0 | 11/14/19 | | | 324 mg total salt | mouth three times | tablet | | 18 | 8 | | (36 mg elemental | daily. | | | | | | iron) oral tablet | | | | | | + + + +---------+ + + documented as of this encounter Plan of Treatment +--------+ + + + + | Date | Type | Specialty | Care Team | Description | +--------+ + + + + | 11/13/ | Office | Gastroenterology | Cassidy Schneider, | | | 2019 | Visit | | [address] | | | | | | [place], [place] | | | | | | [address] | | | | | | [phone] | | | | | | | | +--------+ + + + + | 11/17/ | Video/TeleH | Pain Management | Florencio Lockett, | | | 2019 | ealth-Sched | | PhD [address] | | | | uled | | [place], [place] | | | | | | [address] | | | | | | [phone] | | | | | | | | +--------+ + + + + | 12/01/ | Video/TeleH | Pain Management | Florencio Lockett, | | | 2019 | ealth-Sched | | PhD [address] | | | | uled | | [place], [place] | | | | | | [address] | | | | | | [phone] | | | | | | | | +--------+ + + + + | 01/06/ | Office | Plastic Surgery | Kuldip Harrell MD | | | 2019 | Visit | | [address] | | | | | | [place], [place] | | | | | | [address] | | | | | | [phone] | | | | | | | | +--------+ + + + + documented as of this encounter Procedures + +--------+ + + + | Procedure Name | Priori | Date/Time | Associated Diagnosis | Comments | | | ty | | | | + +--------+ + + + | X-RAY CHEST 2 VIEW | Routin | 02/06/2018 | Preop | Results for this | | | e | 4:35 PM | cardiovascular exam | procedure are in the | | | | PDT | Chest pain, | results section. | | | | | unspecified type | | | | | | Pedal edema | | + +--------+ + + + documented in this encounter Results X-RAY CHEST 2 VIEW (02/06/2018 4:35 PM PDT) + + | Specimen | + + | | + + + + + | Narrative | Performed At | + + + | EXAM: CHEST 2 VIEWS HISTORY: Preoperative for noncoronary | [facility] | | cardiac surgery. COMPARISON: None. FINDINGS: The | RADIOLOGY VOICE | | cardiomediastinal contour is normal. The lungs are clear. There is no | RECOGNITION 2 | | pleural effusion or pneumothorax. There is no pulmonary edema. The | | | bones are intact. IMPRESSION: Clear lungs. I have | | | personally reviewed the images and, if necessary, edited the report. I | | | agree with the report as now presented. Final signature: | | | Evette Truong MD 02/06/2018 5:06 PM Preliminary: Ean | | | MD Cathie Dictation initiated: Ean Brand MD | | | 02/06/2018 4:34 PM | | + + + + + | Procedure Note | + + | Service Account, Radiant Res In Interface - 02/06/2018 5:07 PM PDT EXAM: CHEST 2 | | VIEWS HISTORY: Preoperative for noncoronary cardiac surgery. COMPARISON: None. | | FINDINGS: The cardiomediastinal contour is normal. The lungs are clear. There is no | | pleural effusion or pneumothorax. There is no pulmonary edema. The bones are intact. | | IMPRESSION: Clear lungs. I have personally reviewed the images and, if necessary, edited | | the report. I agree with the report as now presented. Final signature: Evette Truong | | 02/06/2018 5:06 PM Preliminary: Ean Brand MD Dictation initiated: | | Ean Brand MD 02/06/2018 4:34 PM | |The cardiomediastinal contour is normal. The lungs are clear. There is no pleural effusion or pneumothorax. There is no pulmonary edema. The bones are intact. | | | |IMPRESSION: | | | |Clear lungs. | | | |I have personally reviewed the images and, if necessary, edited the report. I agree with th e report as now presented. | | | |Final signature: Evette Truong MD 02/06/2018 5:06 PM | |Preliminary: Ean Brand MD | |Dictation initiated: Ean Brand MD 02/06/2018 4:34 PM | + + + +---------+ + + | Performing | Address | City/State/Zipcode | Phone Number | | Organization | | | | + +---------+ + + | [facility] | | | | | VOICE RECOGNITION 2 | | | | + +---------+ + + documented in this encounter Visit Diagnoses + + | Diagnosis | + + | Preop cardiovascular exam Pre-operative cardiovascular examination | + + | Chest pain, unspecified type | + + | Pedal edema Edema | + + documented in this encounter"
--- OUTSIDE RECORDS SUMMARY | ~2019-11-06 | XMS | Encounter Summary ---
Demographics + + + | Address | [address] | | | [place] [address] | + + + | Home Phone | | + + + | Preferred Language | Unknown | + + + | Marital Status | | + + + | Buddhist Affiliation | NRP | + + + | Race | White | + + + | Ethnic Group | Not or | + + + Author + + + | Author | [facility] | + + + | Organization | [facility] | + + + | Address | Unknown | + + + | Phone | Unavailable | + + + Support + + +---------+ + | Name | Relationship | Address | Phone | + + +---------+ + | Jeovanny Hernández | ECON | Unknown | | + + +---------+ + Care Team Providers + +------+ + | Care Contact Center Consultant Name | Role | Phone | + +------+ + | Alisha Stovall PA-C | PCP | | + +------+ + Encounter Details +--------+ + + + + | Date | Type | Department | Care Team | Description | +--------+ + + + + | 12/21/ | MyChart | Digestive Health | Jody Watson ACNP | RE: IVF | | 2019 | Encounter | Center at [facility] [address] | [address] | | | | | [address] [facility] | [place] [facility], | | | | | for Health and | [place] [address] | | | | | Healing, [address] | [phone] | | | | | [place], [place] | | | | | | [address] | | | | | | [phone] | | | +--------+ + + + [...] [address] | | | | | | [place], [place] | | | | | | [address] | | | | | | [phone] | | | | | | | | +--------+ + + + + | 11/17/ | Video/TeleH | Pain Management | Florencio Lockett, | | | 2019 | ealth-Sched | | PhD [address] | | | | uled | | [place], [place] | | | | | | [address] | | | | | | [phone] | | | | | | | | +--------+ + + + + | 12/01/ | Video/TeleH | Pain Management | Florencio Lockett, | | | 2019 | ealth-Sched | | PhD [address] | | | | uled | | [place], [place] | | | | | | [address] | | | | | | [phone] | | | | | | | | +--------+ + + + + | 01/06/ | Office | Plastic Surgery | Kuldip Harrell MD | | | 2019 | Visit | | [address] | | | | | | [place], [place] | | | | | | [address] | | | | | | [phone] | | | | | | | | +--------+ + + + + documented as of this encounter Visit Diagnoses Not on filedocumented in this encounter"
--- OUTSIDE RECORDS SUMMARY | ~2019-11-06 | XMS | Encounter Summary ---
Demographics + + + | Address | [address] | | | [place] [address] | + + + | Home Phone | | + + + | Preferred Language | Unknown | + + + | Marital Status | | + + + | Hinduism Affiliation | NRP | + + + [...] Team Providers + +------+ + | Care Student Liaison Officer Name | Role | Phone | + +------+ + | Alisha Stovall PA-C | PCP | | + +------+ + Encounter Details +--------+ + + + + | Date | Type | Department | Care Team | Description | +--------+ + + + + | 05/08/ | Abstract | Digestive Health | Clinic, Surgery | | | 2019 | | [place] [address] [address] | | | | | | [facility] | | | | | | for Health and | | | | | | Healing, [address] | | | | | | [place], [place] | | | | | | [address] | | | | | | [phone] | | | +--------+ + + + [...] Ave | | | | | | [place], [place] | | | | | | [address] | | | | | | [phone] | | | | | | | | +--------+ + + + + | 11/17/ | Video/TeleH | Pain Management | Florencio Lockett, | | | 2019 | ealth-Sched | | PhD [address] | | | | uled | | [place], [place] | | | | | | [address] | | | | | | [phone] | | | | | | | | +--------+ + + + + | 12/01/ | Video/TeleH | Pain Management | Florencio Lockett, | | | 2019 | ealth-Sched | | PhD [address] | | | | uled | | [place], [place] | | | | | | [address] | | | | | | [phone] | | | | | | | | +--------+ + + + + | 01/06/ | Office | Plastic Surgery | Kuldip Harrell MD | | | 2020 | Visit | | [address] | | | | | | [place], [place] | | | | | | [address] | | | | | | [phone] | | | | | | | | +--------+ + + + + documented as of this encounter Visit Diagnoses Not on filedocumented in this encounter"
--- OUTSIDE RECORDS SUMMARY | ~2019-11-06 | XMS | Encounter Summary ---
Demographics + + + | Address | [address] | | | [place] [address] | + + + | Home Phone [...] Team Providers + +------+ + | Care Stereotype Molder Name | Role | Phone | + +------+ + | Alisha Stovall PA-C | PCP | | + +------+ + Reason for Visit + + + | Reason | Comments | + + + | Pre-op evaluation | | + + + Encounter Details +--------+ + + + + | Date | Type | Department | Care Team | Description | +--------+ + + + + | 05/28/ | Telephone-S | Preoperative | | Pre-op evaluation | | 2020 | cheduled | Medicine Clinic at | | | | | | [facility] | | | | | | [address] | | | | | | [facility] | | | | | | and Healing, | | | | | | [address] | | | | | | [place], [place] | | | | | | [address] | | | | | | [phone] | | | +--------+ + + + + Anesthesia Record + + + + + | Procedure Name | Responsible | Anesthesia Start | Anesthesia Stop Time | | | Anesthesiologist | Time | | + + + + + | LAPAROSCOPIC GASTRIC | Praveena Rose MD | 05/30/1930 | 05/30/19 103 | | TUBE PLACEMENT, | | | | | DIAGNOSTIC | | | | | LAPAROSCOPY; (N/A | | | | | Abdomen) | | | | + + + + + +----+---+ + + | Da | T | Event | Comment | | te | i | | | | | m | | | | | e | | | +----+---+ + + | 02 | 0 | Eq Check | Anesthesia machine checked Equipment verified | | /0 | 7 | | | | 6/ | 1 | | | | 20 | 9 | | | | 20 | | | | +----+---+ + + | | 0 | Pt. Check | Prior to anesthesia start, pt. Identified, examined, chart | | | 7 | | reviewed, PARQ held, anesthetic plan made or approved by | | | 1 | | attending anesthesiologist. NPO status confirmed as appropriate | | | 9 | | for procedure Preoperative evaluation: unchanged | +----+---+ + + | | 0 | Preprocedur | Pt ID confirmed, informed consent obtained, insertion site | | | 7 | e Checklist | marked, equipment available | | | 1 | | | | | 9 | | | +----+---+ + + | | 0 | An Start | | | | 7 | | | | | 2 | | | | | 8 | | | +----+---+ + + | | 0 | An Start | | | | 7 | Data | | | | 3 | | | | | 6 | | | +----+---+ + + | | 0 | Vitals | Monitors applied Vital signs checked Patient ready for anesthesia | | | 7 | Checked | | | | 4 | | | | | 1 | | | +----+---+ + + | | 0 | ETT | | | | 7 | | | | | 4 | | | | | 6 | | | +----+---+ + + | | 0 | Ready | | | | 7 | | | | | 4 | | | | | 7 | | | +----+---+ + + | | 0 | Abx | | | | 7 | Administere | | | | 5 | d | | | | 8 | | | +----+---+ + + | | 0 | Timeout | | | | 8 | | | | | 1 | | | | | 0 | | | +----+---+ + + | | 0 | Local | | | | 8 | Anesthetic | | | | 1 | by Surgeon | | | | 2 | | | +----+---+ + + | | 0 | Incision | | | | 8 | | | | | 1 | | | | | 4 | | | +----+---+ + + | | 1 | Surgery end | | | | 0 | | | | | 2 | | | | | 4 | | | +----+---+ + + | | 1 | An Extubate | Neuromuscular function Intact. Pharynx suctioned. Patient obeys | | | 0 | | commands. Adequate pulmonary mechanics. | | | 2 | | | | | 4 | | | +----+---+ + + | | 1 | O2 by FM | | | | 0 | | | | | 2 | | | | | 4 | | | +----+---+ + + | | 1 | an stop | | | | 0 | data | | | | 2 | | | | | 4 | | | +----+---+ + + | | 1 | PACU Rpt | | | | 0 | Given | | | | 3 | | | | | 0 | | | +----+---+ + + | | 1 | Anesthesia | | | | 0 | End | | | | 3 | | | | | 2 | | | +----+---+ + + | | 1 | Post-Op | | | | 6 | Page | | | | 0 | | | | | 0 | | | +----+---+ + + +------+ | Meds | +------+ + + + No medications | on file. | + + + + + | No agents on file. | + + + + | No blood administrations on file. | + + +--------+ + + + | Type | Details | Placement | Removal | +--------+ + + + | Incisi | 09/24/18; 1416; Anterior; | 09/24/18 1416 by | | | on | epigastrium | Nora Stiles RN | | +--------+ + + + | Incisi | 09/24/18; 1416; Left; Lateral; | 09/24/18 1416 by | | | on | abdomen | Nora Stiles RN | | +--------+ + + + | Incisi | 09/24/18; 1417; Left; Medial; | 09/24/18 1417 by | | | on | abdomen | Nora Stiles RN | | +--------+ + + + | Incisi | 09/24/18; 1417; umbilical area | 09/24/18 1417 by | | | on | | Nora Stiles RN | | +--------+ + + + | Incisi | 09/24/18; 1423; Right; adb- lower | 09/24/18 1423 by | | | on | quadrant | Nora Stiles RN | | +--------+ + + + | Incisi | 09/24/18; 1424; Right; Medial; | 09/24/18 1424 by | | | on | abdomen | Nora Stiles RN | | +--------+ + + + | Incisi | 09/24/18; 1424; Right; adb- upper | 09/24/18 142 by | | | on | quadrant | Nora Stiles RN | | +--------+ + + + | Incisi | 05/30/19; 0859; Alphonso Norton MD; | 05/30/1959 by | | | on | Left; Anterior, Upper; abdomen | Jerome Benitez, | | | | | RN | | +--------+ + + + | Incisi | 05/30/19; 899; Alphonso Norton MD; | 05/30/19899 by | | | on | Left; Anterior, Lower; abdomen | Jerome Gooneratne, | | | | | RN | | +--------+ + + + | Incisi | 05/30/19; 899; Alphonso Norton MD; | 05/30/19899 by | | | on | Right; Anterior, Upper; abdomen | Jerome Gooneratne, | | | | | RN | | +--------+ + + + | Incisi | 05/30/19; 900; Alphonso Norton MD; | 05/30/19900 by | | | on | Right; Anterior, Lower; abdomen | Jerome Gooneratne, | | | | | RN | | +--------+ + + + | Feedin | 05/30/19; 0925; MD Cierra; | 05/30/19 0925 by | | | g Tube | G-tube; Abdomen UR; 18 | Kimberley Beaulieu RN | | +--------+ + + + | Periph | 05/30/19; 0707; Right; | 05/30/19 0707 by | 06/01/19 170 by | | eral | Antecubital; 18 g; Lidocaine; | Herberth Devine RN | Brii Pulido RN | | IV | Positive; 06/01/19; 1708; | | | | | Catheter damage | | | +--------+ + + + | ETT | 05/30/19; 0746 (created via | 05/30/19 0746 by | 05/30/19 1024 by | | | procedure documentation); Shannan West | Shannan Bertrand MD | Praveena Rose MD | | | MD Jerzy; Endotracheal Tube; | | | | | 7; Oral; Cuffed; 05/30/19; 1024 | | | +--------+ + + + documented in this encounter Social History + [...] of this encounter Patient Instructions Patient Instructions Tia Garner RN - 05/28/2019 10:09 AM PST PREOPERATIVE INSTRUCTIONS Pre-surgery "homework" * If you have not already done so, please consider getting your flu vaccine before surgery. This is safe and effective before a surgery and recovery. * Unless otherwise instructed by your surgeon, stay active between now and surgery, even st riving to increase your activity levels if you can (ex. taking at least one walk daily, even around the block). This can help speed your surgery recovery. Surgery check-in location: Admitting - [facility], [facility] Surgery Check in Time: you will receive a call 1-3 business days before your surgery confi rming your exact arrival/check-in time for your surgery day. We know that planning for surg silvia can be stressful and involve a lot of family/friend/transportation coordination as well as hotel arrangements. The Preoperative Medicine Clinic does not have access to check in [facility], and we encourage you to contact your surgeon's office for any assistance planning aroun d a tentative arrival time. Empty stomach before surgery On the day BEFORE your surgery, drink plenty of fluids and stay well hydrated NOTHING to eat or drink after midnight the night before surgery. This includes water, coffee, candy, mints, gum. Medications Instructions On the evening before your surgery, take ALL your usual evening medications On the morning of surgery TAKE the following medications with a sip of water: PANTOPRAZOLE 20 MG TABLET,DELAYED RELEASE ALBUTEROL SULFATE HFA 90 MCG/ACTUATION AEROSOL INHALER QVAR 40 MCG/ACTUATION METERED AEROSOL ORAL INHALER FLUOXETINE 40 MG CAPSULE HYDROXYZINE HCL 25 MG TABLET LAMICTAL ORAL TOPIRAMATE 50 MG TABLET On the morning of surgery DO NOT TAKE the following medications: CLONIDINE HCL 0.1 MG TABLET MEDICATION HELP MIRTAZAPINE 15 MG TABLET ZIKX-CQXU-DIJCE (PABA) ORAL PROMETHAZINE 25 MG TABLET SIMETHICONE 80 MG CHEWABLE TABLET Other medications not specifically mentioned are at your discretion as to taking or not taking on the morning of surgery. Unless otherwise directed by your surgeon, do not take any Aspirin, fish oil supplements , vitamin E or non-steroidal anti-inflammatory (NSAIDs i.e. Advil, Aleve, Ibuprofen) or herb al supplements 7 days prior to your surgery. These drugs may interfere with normal blood katie tting and may cause excessive bleeding and bruising during or after the surgery. If you need a pain medication for general purposes, use Tylenol as directed. OK to take it even on the morning of surgery, if needed. If you are in doubt about any medications that you are taking, please contact our office . Other Important Guidelines ? Do not shave the surgical area ? Do not wear tampons on the day of the procedure ? Do not smoke, drink alcohol or use recreational drugs for 24 hours before your surgery Watch for any change in your health condition. Let your surgeon know right away if you do not feel well--this includes calling if you think you are developing a "cold" in the days before your surgery. ? Do not wear makeup, perfume, lotions, deodorant, powder or hairspray. Do not wear any jewelry to the hospital. Wear loose, comfortable clothing. Leave all your valuables at home. Allow enough travel time so you re not late for your check in for surgery. ? Take a bath or shower and remember to shampoo your hair using your usual hair product bef ore your arrival at the hospital ? Please remember to brush your teeth the night before and the morning of your procedure. Preventing post op complications while you are in the hospital Use an incentive spirometer or peep breathe to keep your lungs working properly an d to help prevent respiratory complications. It helps you take long, deep breaths. Use it at least once every hour while you are awake. Leg and feet exercises will maintain good circulation and help prevent blood clots in yo ur legs. Sometimes your doctor will order sequential air compression stockings. Compressed air helps the circulation in your legs. Walking and moving will help stimulate normal circulation and deep breathing. Going Home Your surgical team will decide when you are medically ready to go home. If you are released to go home on the same day as your procedure/surgery please note the following: You will not be able to drive yourself A responsible adult MUST escort you home. You may not drive yourself Your responsible adult can drive you or they can accompany you in a taxi, ride share (chan ch as Uber/Lyft), or public transportation. An Uber/Lyft/stage driver does not count as the responsible adult who accompanies you. Certified Medical Transport can transport you after surgery as long as a competent adult is waiting for you on arrival at your destination Although not mandatory, it is highly recommended that a patient has a responsible person with you to provide overnight monitoring/support following discharge. It IS required that you have a competent person assist you and look after you on the fir st night after you have undergone regional blocks (72 hours for patients going home with reg ional block pump) If you stayed in the hospital after surgery, please discuss anticipated discharge time a nd plans with your inpatient team so that transportation plans and other going home arrangem ents can be coordinated If you have questions or concerns after you go home, call your doctor s office. If it is after office hours, call the [facility] crew boat operator at [phone] and ask them to page him or h erNayana documented in this encounter Plan of Treatment +--------+ + + + + | Date | Type | Specialty | Care Team | Description | +--------+ + + + + | 11/13/ | Office | Gastroenterology | Cassidy Schneider, | | 2019 | Visit | | [address] | | | | | | [place], [place] | | | | | | [address] | | | | | | [phone] | | | | | | | | +--------+ + + + + | 11/17/ | Video/TeleH | Pain Management | Florencio Lockett, | | | 2019 | ealth-Sched | | PhD [address] | | | | uled | | [place], [place] | | | | | | [address] | | | | | | [phone] | | | | | | | | +--------+ + + + + | 12/01/ | Video/TeleH | Pain Management | Florencio Lockett, | | | 2019 | ealth-Sched | | PhD [address] | | | | uled | | [place], [place] | | | | | | [address] | | | | | | [phone] | | | | | | | | +--------+ + + + + | 01/06/ | Office | Plastic Surgery | Kuldip Harrell MD | | | 2019 | Visit | | [address] | | | | | | [place], [place] | | | | | | [address] | | | | | | [phone] | | | | | | | | +--------+ + + + + documented as of this encounter Visit Diagnoses Not on filedocumented in this encounter
--- OUTSIDE RECORDS SUMMARY | ~2019-11-06 | XMS | Encounter Summary ---
Demographics + + + | Address | [address] | | | [place] [address] | + + + | Home Phone | | + + + | Preferred Language | Unknown | + + + | Marital Status | | + + + | Zoroastrianism Affiliation | NRP | + + + | Race | White | + + + | Ethnic Group | Not or | + + + Author + + + | Author | [facility] | + + + | Organization | [facility] | + + + | Address | Unknown | + + + | Phone | Unavailable | + + + Support + + +---------+ + | Name | Relationship | Address | Phone | + + +---------+ + | Jeovanny Hernández | ECON | Unknown | | + + +---------+ + Care Team Providers + +------+ + | Care Strike Operations Officer Name | Role | Phone | [...] | +--------+ + + + + | 02/14/ | Documentati | [facility] | Lab, Gi Procedure | Medical Records | | 2019 | on | [address] | | Review | | | | [address] [facility] for | | | | | | Health and Healing, | | | | | | [address] | | | | | | [place], [place] | | | | | | [address] | | | | | | [phone] | | | +--------+ + + + [...] | | 2019 | Visit | | [address] | | | | | | [facility] [place] | | | | | | [address] | | | | | | [phone] | | | | | | | | +--------+ + + + + | 11/17/ | Video/TeleH | Pain Management | Florencio Lockett, | | | 2019 | ealth-Sched | | PhD [address] | | | | uled | | [place], [place] | | | | | | [address] | | | | | | [phone] | | | | | | | | +--------+ + + + + | 12/01/ | Video/TeleH | Pain Management | Florencio Lockett, | | | 2019 | ealth-Sched | | PhD [address] | | | | uled | | [place], [place] | | | | | | [address] | | | | | | [phone] | | | | | | | | +--------+ + + + + | 01/06/ | Office | Plastic Surgery | Kuldip Harrell MD | | | 2019 | Visit | | [address] | | | | | | [place], [place] | | | | | | [address] | | | | | | [phone] | | | | | | | | +--------+ + + + + documented as of this encounter Visit Diagnoses Not on filedocumented in this encounter"
--- OUTSIDE RECORDS SUMMARY | ~2019-11-06 | XMS | Encounter Summary ---
Demographics + + + | Address | [address] | | | [place] [address] | + + + | Home Phone | | + + + | Preferred Language | Unknown | + + + | Marital Status | | + + + | Worship Affiliation | NRP | + + + | Race | White | + + + | Ethnic Group | Not or | + + + Author + + + | Author | [facility] | + + + | Organization | [facility] | + + + | Address | Unknown | + + + | Phone | Unavailable | + + + Support + + +---------+ + | Name | Relationship | Address | Phone | + + +---------+ + | Jeovanny Hernández | ECON | Unknown | | + + +---------+ + Care Team Providers + +------+ + | Care Manager Supplier Name | Role | Phone | + [...] Pharmacy | | | | | | [address] | | | | | | [place], [place] | | | | | | [address] | | | | | | [phone] | | | +--------+ + + + [...] [address] | | | | | | [place], [place] | | | | | | [address] | | | | | | [phone] | | | | | | | | +--------+ + + + + | 11/17/ | Video/TeleH | Pain Management | Florencio Lockett, | | | 2019 | ealth-Sched | | PhD [address] | | | | uled | | [place], [place] | | | | | | [address] | | | | | | [phone] | | | | | | | | +--------+ + + + + | 12/01/ | Video/TeleH | Pain Management | Florencio Lockett G, | | | 2019 | ealth-Sched | | PhD [address] | | | | uled | | [facility] [place] | | | | | | [address] | | | | | | [phone] | | | | | | | | +--------+ + + + + | 01/06/ | Office | Plastic Surgery | Kuldip Harrell MD | | | 2019 | Visit | | [address] | | | | | | [place], [place] | | | | | | [address] | | | | | | [phone] | | | | | | | | +--------+ + + + + documented as of this encounter Visit Diagnoses Not on filedocumented in this encounter"
--- OUTSIDE RECORDS SUMMARY | ~2019-11-06 | XMS | Encounter Summary ---
Demographics + + + | Address | [address] | | | [place] [address] | + + + | Home Phone | | + + + | Preferred Language | Unknown | + + + | Marital Status | | + + + | Mormonism Affiliation | NRP | + + + [...] Team Providers + +------+ + | Care Quality Officer Name | Role | Phone | + +------+ + | Alisha Stovall PA-C | PCP | | + +------+ + Encounter Details +--------+------+ + + + | Date | Type | Department | Care Team | Description | +--------+------+ + + + | 11/10/ | Lab | Laboratory at [facility] | | Morbid obesity | | 2017 | | [address] | | ([facility]); Diabetes | | | | [facility] | | mellitus treated | | | | and Healing, | | with oral medication | | | | [address] | | ([facility]); | | | | [place], [place] | | Hypertension, | | | | [address] | | unspecified type; | | | | [phone] | | Asthma, unspecified | | | | | | asthma severity, | | | | | | unspecified whether | | | | | | complicated, | | | | | | unspecified whether | | | | | | persistent; | | | | | | Gastroesophageal | | | | | | reflux disease, | | | | | | esophagitis presence | | | | | | not specified | +--------+------+ + + + Social History [...] [address] | | | | | | [place], [place] | | | | | | [address] | | | | | | [phone] | | | | | | | | +--------+ + + + + | 11/17/ | Video/TeleH | Pain Management | Floerncio Lockett, | | | 2019 | ealth-Sched | | PhD [address] | | | | uled | | [place], [place] | | | | | | [address] | | | | | | [phone] | | | | | | | | +--------+ + + + + | 12/01/ | Video/TeleH | Pain Management | Florencio Lockett, | | | 2019 | ealth-Sched | | PhD [address] | | | | uled | | [place], [place] | | | | | | [address] | | | | | | [phone] | | | | | | | | +--------+ + + + + | 01/06/ | Office | Plastic Surgery | Kuldip Harrell MD | | | 2019 | Visit | | [address] | | | | | | [place], [place] | | | | | | [address] | | | | | | [phone] | | | | | | | | +--------+ + + + + documented as of this encounter Procedures + +--------+ + + + | Procedure Name | Priori | Date/Time | Associated Diagnosis | Comments | | | ty | | | | + +--------+ + + + | LIPID SET (TRIG, T | Routin | 11/10/2017 | Morbid obesity | Results for this | | CHOL, HDL, CALC LDL) | e | 2:57 PM | (HCC) Diabetes | procedure are in the | | | | PDT | mellitus treated | results section. | | | | | with oral medication | | | | | | (HCC) | | | | | | Hypertension, | | | | | | unspecified type | | | | | | Asthma, unspecified | | | | | | asthma severity, | | | | | | unspecified whether | | | | | | complicated, | | | | | | unspecified whether | | | | | | persistent | | | | | | Gastroesophageal | | | | | | reflux disease, | | | | | | esophagitis presence | | | | | | not specified | | + +--------+ + + + | VITAMIN D, | Routin | 11/10/2017 | Morbid obesity | Results for this | | 25-HYDROXY, SERUM | e | 2:57 PM | (HCC) Diabetes | procedure are in the | | | | PDT | mellitus treated | results section. | | | | | with oral medication | | | | | | (HCC) | | | | | | Hypertension, | | | | | | unspecified type | | | | | | Asthma, unspecified | | | | | | asthma severity, | | | | | | unspecified whether | | | | | | complicated, | | | | | | unspecified whether | | | | | | persistent | | | | | | Gastroesophageal | | | | | | reflux disease, | | | | | | esophagitis presence | | | | | | not specified | | + +--------+ + + + | FERRITIN | Routin | 11/10/2017 | Morbid obesity | Results for this | | | e | 2:57 PM | (HCC) Diabetes | procedure are in the | | | | PDT | mellitus treated | results section. | | | | | with oral medication | | | | | | (HCC) | | | | | | Hypertension, | | | | | | unspecified type | | | | | | Asthma, unspecified | | | | | | asthma severity, | | | | | | unspecified whether | | | | | | complicated, | | | | | | unspecified whether | | | | | | persistent | | | | | | Gastroesophageal | | | | | | reflux disease, | | | | | | esophagitis presence | | | | | | not specified | | + +--------+ + + + | PTH, SERUM | Routin | 11/10/2017 | Morbid obesity | Results for this | | | e | 2:57 PM | (HCC) Diabetes | procedure are in the | | | | PDT | mellitus treated | results section. | | | | | with oral medication | | | | | | (HCC) | | | | | | Hypertension, | | | | | | unspecified type | | | | | | Asthma, unspecified | | | | | | asthma severity, | | | | | | unspecified whether | | | | | | complicated, | | | | | | unspecified whether | | | | | | persistent | | | | | | Gastroesophageal | | | | | | reflux disease, | | | | | | esophagitis presence | | | | | | not specified | | + +--------+ + + + | VITAMIN B-12 | Routin | 11/10/2017 | Morbid obesity | Results for this | | | e | 2:57 PM | (HCC) Diabetes | procedure are in the | | | | PDT | mellitus treated | results section. | | | | | with oral medication | | | | | | ([facility]) | | | | | | Hypertension, | | | | | | unspecified type | | | | | | Asthma, unspecified | | | | | | asthma severity, | | | | | | unspecified whether | | | | | | complicated, | | | | | | unspecified whether | | | | | | persistent | | | | | | Gastroesophageal | | | | | | reflux disease, | | | | | | esophagitis presence | | | | | | not specified | | + +--------+ + + + | IRON AND TIBC, SERUM | Routin | 11/10/2017 | Morbid obesity | Results for this | | | e | 2:57 PM | (HCC) Diabetes | procedure are in the | | | | PDT | mellitus treated | results section. | | | | | with oral medication | | | | | | ([facility]) | | | | | | Hypertension, | | | | | | unspecified type | | | | | | Asthma, unspecified | | | | | | asthma severity, | | | | | | unspecified whether | | | | | | complicated, | | | | | | unspecified whether | | | | | | persistent | | | | | | Gastroesophageal | | | | | | reflux disease, | | | | | | esophagitis presence | | | | | | not specified | | + +--------+ + + + documented in this encounter Results MATTIE AND TIBC (11/10/2017 2:57 PM PDT) + +--------+ + + + | Component | Value | Ref Range | Performed | Pathologist | | | | | At | Signature | + +--------+ + + + | IRON | 42 | 30 - 160 ug/dL | [facility] | | | | | | LABORATORY | | | | | | SERVICES, | | | | | | CORE | | + +--------+ + + + | IRON BIND | 351 | 240 - 450 ug/dL | [facility] | | | CAP | | | LABORATORY | | | | | | SERVICES, | | | | | | CORE | | + +--------+ + + + | % | 12 (L) | 20 - 50 % | [...] + + | [facility] | [address] | [place] [address] | | | SERVICES, CORE | [address] | | | + + + + + FERRITIN (11/10/2017 2:57 PM PDT) + + + + + + | Component | Value | Ref Range | Performed | Pathologist | | | | | At | Signature | + + + + + + | FERRITIN | 72Comment: Male and | 50 - 200 ng/mL [...] | + + + + + | [facility] | [address] | [place] [address] | | | SERVICES, ADONAY | [address] | | | + + + + + VITAMIN B-12 11/10/2017 2:57 PM PDT) + +-------+ + + + | Component | Value | Ref Range | Performed | Pathologist | | | | | At | Signature | + +-------+ + + + | VITAMIN B12 | 347 | 193 - 986 pg/mL | [facility] | | | | | | LABORATORY | | | | | | SERVICES, | | | | | | CORE | | + +-------+ + + + | COMMENT | 1 | | [facility] | | | (HEMO) | | | LABORATORY | | | | | | SERVICES, | | | | | | CORE | | + +-------+ + + + | COMMENT | 1 | | [facility] | | | (ICTERUS) | | | LABORATORY | | | | | | SERVICES, | | | | | | CORE | | + +-------+ + + + | COMMENT | 1 | | [facility] | | | (LIPEMIA) | | | LABORATORY | | | [...] | + + + + + | [facility] | [address] | [place] [address] | | | SERVICES, CORE | [address] | | | + + + + + VITAMIN D, 25-HYDROXY, SERUM (11/10/2017 2:57 PM PDT) + + + + + + | Component | Value | Ref Range | Performed | Pathologist | | | | | At | Signature | + + + + + + | VITAMIN D | 16.0 (L) | 30 - 80 ng/mL | [facility] [...] | + + + + + | [facility] | [address] | [place] [address] | | | SERVICES, CORE | [address] | | | + + + + + PTH, SERUM (11/10/2017 2:57 PM PDT) + +-------+ + + + | Component | Value | Ref Range | Performed | Pathologist | | | | | At | Signature | + +-------+ + + + | PTH, SERUM | 48 | 18 - 88 pg/mL | [facility] [...] Performed At | + + + | New Reference Range effective 17. | [facility] | | | LABORATORY | | | SERVICES, CORE | + + + + + + + + | Performing | Address | City/State/Zipcode | Phone Number | | Organization | | | | + + + + + | [facility] | [address] | [place] [address] | | | SERVICES, CORE | [address] | | | + + + + + documented in this encounter Visit Diagnoses + + | Diagnosis | + + | Morbid obesity (HCC) Morbid obesity | + + | Diabetes mellitus treated with oral medication (HCC) | + + | Hypertension, unspecified type | + + | Asthma, unspecified asthma severity, unspecified whether complicated, unspecified | | whether persistent | + + | Gastroesophageal reflux disease, esophagitis presence not specified | + + documented in this encounter"
--- OUTSIDE RECORDS SUMMARY | ~2019-11-06 | XMS | Encounter Summary ---
Demographics + + + | Address | [address] | | | [place] [address] | + + + | Home Phone | | + + + | Preferred Language | Unknown | + + + | Marital Status | | + + + | Religion Affiliation | NRP | + + + | Race | White | + + + | Ethnic Group | Not or | + + + Author + + + | Author | [facility] | + + + | Organization | [facility] | + + + | Address | Unknown | + + + | Phone | Unavailable | + + + Support + + +---------+ + | Name | Relationship | Address | Phone | + + +---------+ + | Jeovanny Hernández | ECON | Unknown | | + + +---------+ + Care Team Providers + +------+ + | Care Pattern Repair Person Name | Role | Phone | [...] Description | +--------+--------+ + + + | 08/07/ | Refill | Digestive Health | Nellie Ybarra, | Refill Request | | 2019 | | Center at [facility] [address] | [facility] [address] | | | | | [address] [place] | [place], [place] | | | | | for [facility] and | [address] | | | | | [facility] [address] | [phone] | | | | | [place], [place] | | | | | | [address] | | | | | | | [...] [address] | | | | | | [place], [place] | | | | | | [address] | | | | | | [phone] | | | | | | | | +--------+ + + + + | 11/17/ | Video/TeleH | Pain Management | Florencio Lockett, | | | 2019 | ealth-Sched | | PhD [address] | | | | uled | | [place], [place] | | | | | | [address] | | | | | | [phone] | | | | | | | | +--------+ + + + + | 12/01/ | Video/TeleH | Pain Management | Florencio Lockett, | | | 2019 | ealth-Sched | | PhD [address] | | | | uled | | [place], [place] | | | | | | [address] | | | | | | [phone] | | | | | | | | +--------+ + + + + | 01/06/ | Office | Plastic Surgery | Kuldip Harrell MD | | | 2019 | Visit | | [address] | | | | | | [place], [place] | | | | | | [address] | | | | | | [phone] | | | | | | | | +--------+ + + + + documented as of this encounter Visit Diagnoses Not on filedocumented in this encounter"
--- OUTSIDE RECORDS SUMMARY | ~2019-11-06 | XMS | Encounter Summary ---
Demographics + + + | Address | [address] | | | [place] [address] | + + + | Home Phone | | + + + | Preferred Language | Unknown | + + + | Marital Status | | + + + | Roman Catholic Affiliation | Unknown | + + + | Race | Unknown | + + + | Ethnic Group | Unknown | + + + Author + + + | Author | [facility] | | | and [place] | + + + | Organization | [facility] | | | and [place] | + + + | Address | Unknown | + + + | Phone | Unavailable | + + + Support + + + + + | Name | Relationship | Address | Phone | + + + + + | Taiwo Anna | ECON | [address] | | | | | Apt [place], | | | | | [place] [address] | | + + + + + Care Team Providers + +------+ + | Care Type Mapper Name | Role | Phone | + +------+ + PCP | Unavailable | + +------+ + Encounter Details +--------+ + + + + | Date | Type | Department | Care Team | Description | +--------+ + + + + | /04/ | Hospital | [facility] GENER[facility] IP | Conversion | Diagnosis unknown | | 2017 | Encounter | CONVERSION DEP [address] | Transaction, | | | | | [address] | Provider Unknown | | | | | [place], [place] | | | | | | [address] | (Fax) | | | | | [phone] | | | +--------+ + + + [...] | Visit | | [address] | | | | | | [place] | | | | | | [address] | | | | | | [phone] | | | | | | | | +--------+---------+ + + + | 11/25/ | Office | Cardiology | Katheryn Hammonds DO | | | 2019 | Visit | | [address] | | | | | | [place] | | | | | | [address] | | | | | | | | +--------+---------+ + + + documented as of this encounter Procedures + +--------+ + + + | Procedure Name | Priori | Date/Time | Associated Diagnosis | Comments | | | ty | | | | + +--------+ + + + | MRI BRAIN WO | Routin | 07/29/2016 | | Results for this | | CONTRAST | e | 7:30 PM | | procedure are in the | | | | PDT | | results section. | + +--------+ + + + documented in this encounter Results MRI Brain wo Contrast (07/29/2016 7:30 PM PDT) + + | Specimen | + + | | + + + + + | Narrative | Performed At | + + + | This is a non-reportable procedure without a radiologist report and | | | is used for image storage only | | + + + + + | Procedure Note | + + | Rojelio Page - 12/06/2018 7:05 AM PDT This is a non-reportable procedure | | without a radiologist report and isused for image storage only | + + documented in this encounter Visit Diagnoses + + | Diagnosis | + + | Diagnosis unknown Other unknown and unspecified cause of morbidity or mortality | + + documented in this encounter"
--- OUTSIDE RECORDS SUMMARY | ~2019-11-06 | XMS | Encounter Summary ---
Demographics + + + | Address | [address] | | | [place] [address] | + + + | Home Phone | | + + + | Preferred Language | Unknown | + + + | Marital Status | | + + + | Amish Affiliation | Unknown | + + + | Race | Unknown | + + + | Ethnic Group | Unknown | + + + Author + + + | Author | [facility] | | | and [place] | + + + | Organization | [facility] | | | [...] [place], | | | | | [place] [address] | | + + + + + Care Team Providers + +------+ + | Care Reflesher Name | Role | Phone | + +------+ + | Alisha Stovall | PCP | | | PA-C | | | + +------+ + Reason for Visit + + + | Reason | Comments | + + + | Follow-up | Migraine | + + + Encounter Details +--------+---------+ + + + | Date | Type | Department | Care Team | Description | +--------+---------+ + + + | 02/28/ | Office | [facility] | Caity Joel | Migraine without | | 2019 | Visit | [facility] | MD Prave[address] | aura and without | | | | CLINIC [address] | [place] | status migrainosus, | | | | [address], | [place] [address] | not intractable | | | | [place] [address] | [phone] | (Primary Dx) | | | | [phone] | | | +--------+---------+ + + + [...] + + + | Blood Pressure | 117/68 | 02/28/2019 8:56 AM | | | | | PST | | + + + + + | Pulse | 52 | 02/28/2019 8:56 AM | | | | | PST | | + + + + + | Temperature | - | - | | + + + + + | Respiratory Rate | 16 | 02/28/2019 8:56 AM | | | | | PST | | + + + + + | Oxygen Saturation | 100% | 02/28/2019 8:56 AM | | | | | PST | | + + + + + | Inhaled Oxygen | - | - | | | Concentration | | | | + + + + + | Weight | 125.6 kg (276 lb | 02/28/2019 8:56 AM | | | | 14.4 oz) | PST | | + + + + + | Height | 182.9 cm (6') | 02/28/2019 8:56 AM | | | | | PST | | + + + + + | Body Mass Index | 37.55 | 02/28/2019 8:56 AM | | | | | PST | | + + + + + documented in this encounter Patient Instructions Patient Instructions Caity Joel MD - 02/28/2019 9:00 AM PSTFormatting of this no te might be different from the original. Preventing Migraine Headaches: Medicines and Lifestyle Changes Going to bed and getting up at the same time each day, including weekends, may help prevent migraines. A migraine is a type of severe headache. Having a migraine can be very painful. But there a re steps you can take to help prevent migraines. Medicines to help prevent migraines Your healthcare provider may prescribe certain medicines to help prevent migraines. Thes e medicines may need to be taken daily. Or they may only need to be taken at times when you re likely to have a migraine. Common medicines used to help prevent migraines include: ? Triptans (serotonin receptor agonists) ? Nonsteroidal anti-inflammatory drugs (such as ibuprofen, available jqxe-ala-tbipayj) ? Beta-blockers ? Anticonvulsants ? Tricyclic antidepressants ? Calcium channel blockers ? Certain vitamins, minerals, and plant extracts ? Botulinum toxin injection for certain chronic migraines ? CGRP (calcitonin gene-related peptide) agnonists are being reviewed by the Food and Drug Administration (FDA) Lifestyle changes for long-term prevention Here are some suggestions: Exercise. Regular exercise can help prevent migraines and improve your health. (If exerc ise triggers your migraines, talk to your healthcare provider.) Keep regular habits. Don t skip or delay meals. Drink plenty of water. And go to bed a nd get up at about the same time each day. This includes weekends. Try alternative treatments. These are treatments that don't involve the use of medicines or surgery. They may help relieve symptoms and prevent migraines. Some treatment options in clude biofeedback and acupuncture. Ask yourhealthcare providerto tell you more about the se treatments if you have questions. Limit caffeine. You may find that caffeine helps relieve pain during an attack. But too much caffeine can also trigger migraines. So, limit the amount of caffeine you consume. Date Last Reviewed: 08/22/201719994575-3175 [employer]. [address] [place] [address], [place] [address]. All righ ts reserved. This information is not intended as a substitute for professional medical care. Always follow your healthcare professional's instructions. documented in this encounter Progress Notes Caity Joel MD - 02/28/2019 9:00 AM PST Patient: Maria De Jesus Anna Medical Record: [id number] Date of Services: 02/28/2019 Referring Doctor: Alisha Stovall PA-C Chief Complaint Patient presents with Follow-up Migraine HISTORY OF PRESENT ILLNESS: The patient is a 28-year-old female who is referred to me because of migraine headaches. She was last seen by Matt ARRIOLA in September. The patient has had her bariatric surgery and lost 100 pounds. Until recently, she was doing quite well on Topamax. She was down to 3 headaches a week an d was quite happy about it. The headaches were triggered mostly by her not being able to ea t or drink as much as she should. This apparently is a complication of her gastric bypass a nd she is being worked up for this. She has an appointment to see her surgeon at [facility] in [facility]. Eating and drinking even only small amounts makes her sick. About a month ago, she was started on Lexapro for anxiety. She has started having headache s every day. This was discontinued 2 days ago and her headaches have improved. She was giv en a position for Zoloft which she has not started this yet. Otherwise, when she has her migraine headaches, she takes 2 Tylenol tablets. In the past, she took 13 tablets a day and she was able to taper her usage successfully. She also has not MEHUL and is about to contact her sleep doctor to repeat her sleep study fol lowing her weight loss. REVIEW OF SYSTEMS: General: Positive for weight changes HEENT: No vision changes Cardiovascular: Positive for chest pain Respiratory: Positive for wheezing Gastrointestinal: Positive for abdominal pain, nausea, diarrhea Musculoskeletal: Positive for neck and back pain Skin: Positive for rash Hematologic: No bruising Neurologic: Positive for numbness and tingling Psychiatric: Positive for anxiety Genitourinary: No nocturia PAST MEDICAL HISTORY: Past Medical History: Diagnosis Date Anxiety Depression Diabetes mellitus (HCC) Hyperlipidemia Hypertension Intractable migraine without aura and without status migrainosus 08/23/2018 Current Treatment: Topamax, propanolol Failed Treatment: imatrex 09/14/18 MRI of Brain: No acute intracranial process.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 Hyperostosis frontalis. 09/14/18 EEG: Normal awake and drowsy EEG MEHUL (obstructive sleep apnea) PCOS (polycystic ovarian syndrome) Polycystic ovarian disease PAST SURGICAL HISTORY: Past Surgical History: Procedure Laterality Date ANTERIOR CRUCIATE LIGAMENT REPAIR gastric bypass MEDICATIONS: Current Outpatient Medications Medication Sig Dispense Refill Beclomethasone Dipropionate (QVAR IN) Inhale into the lungs. ferrous sulfate 325 mg tablet Take 325 mg by mouth. hydrOXYzine pamoate (VISTARIL) 25 mg capsule Take 25 mg by mouth. Norgestim-Eth Estrad Triphasic (TRI-PREVIFEM PO) Take by mouth. ondansetron (ZOFRAN ODT) 4 mg disintegrating tablet Take 4 mg by mouth as needed. pantoprazole (PROTONIX) 40 mg tablet Take 40 mg by mouth every morning (before breakfas t). topiramate (TOPAMAX) 50 MG tablet Take 50 mg PO QAM and 100 mg PO QHS. 90 tablet 3 zolpidem (AMBIEN) 10 mg tablet Take 10 mg by mouth as needed. No current facility-administered medications for this visit. ALLERGIES: Allergies Allergen Reactions Nicotiana Tabacum Shortness Of Breath Depakote [Valproic Acid] Other (See Comments) Suicidal Fish Oil Hives and Nausea And Vomiting Ibuprofen Hives and Nausea And Vomiting Imitrex [Sumatriptan] Nausea And Vomiting Increased headaches Oxycodone-Acetaminophen Nausea And Vomiting Percocet [Oxycodone] Nausea And Vomiting Seroquel [Quetiapine] Other (See Comments) Rage Doxycycline Rash Tessalon [Benzonatate] Rash Social History Socioeconomic History Marital status: Spouse name: Not on file Number of children: Not on file Years of education: Not on file Highest education level: Not on file Social Needs Financial resource strain: Not on file Food insecurity - worry: Not on file Food insecurity - inability: Not on file Transportation needs - medical: Not on file Transportation needs - non-medical: Not on file Occupational History Not on file Tobacco Use Smoking status: Never Smoker Smokeless tobacco: Never Used Substance and Sexual Activity Alcohol use: Never Frequency: Never Drug use: No Sexual activity: Not on file Other Topics Concern Not on file Social History Narrative Not on file CAFFEINE USE: She does not drink coffee. Family History Problem Relation Age of Onset Migraines Father Migraines Paternal Grandmother PHYSICAL EXAMINATION: BP 117/68 | Pulse 52 | Resp 16 | Ht 1.829 m (6') | Wt 125.6 kg (276 lb 14.4 oz) | SpO2 100% | BMI 37.55 kg/m Gen.: Well-nourished, well kept, in no acute distress. Neck is supple. Lungs are clear. Heart sounds are within normal limits. Abdomen is soft and non-tender, There is no extremity cyanosis. NEUROLOGIC EXAMINATION: MENTAL STATUS: The patient is awake, alert, and oriented to time, place, and person. [facility] is fluent. Memory, attention, comprehension, and general fund of knowledge are intact. CRANIAL NERVES: Funduscopy revealed distinct disc margins. There are no exudates or hemor rhages noted. Pupils are 3-4 mm, equal and reactive to light and accommodation. Extraocular muscle movements are intact. There are no visual field cuts. There is no nystagmus. There is no facial asymmetry. Facial sensation is intact. Palate elevates symmetrically. Streng th in the trapezius and sternocleidomastoid muscles is normal. Tongue is midline on protrusi on. MOTOR EXAMINATION: Strength is 5/5 throughout. Tone is normal. SENSORY EXAMINATION: Intact to light touch and pinprick. DEEP TENDON REFLEXES: 2+ and symmetric. PLANTAR RESPONSES: Downgoing bilaterally GAIT: Gait and station are normal. CEREBELLAR EXAMINATION: There is no dysmetria on xxhdyq-wj-sjsw test. IMPRESSION: 1. Migraine without aura and without status migrainosus, not intractable PLAN AND RECOMMENDATIONS: The patient's headaches have improved significantly on Topamax and we will keep her on her current dose. It appears that her headaches are triggered by her dietary issues and hopefully this will b e resolved in a few weeks. She will see her surgeon and a microwave oven assembler at [facility] in [facility]. In the meantime, she will remain on Tylenol 2 tablets as needed for her headaches. She has tried triptans in the past but could not tolerate them. Once again, she was counseled ish mirza excessive antalgic use. She was also strongly encouraged to follow up with her sleep position for a repeat sleep st udy following her bariatric surgery. We will continue to follow her purchase to come back to the neurology clinic in 4 months to see Shirley MENCHACA. More than 50% of this 30 minute visit was spent on faop-mu-tmeu with the patient, shannon peck on the problems of taking xvvk-wiz-pbvxjjq analgesics excessively. Thank you for the opportunity to participate in the care of this patient. Caity Joel MD02/28/20199:25 Electronically signed This note was transcribed using voice recognition software. There may be speech recognitio n errors which escaped detection during review. documented in thi s encounter Plan of Treatment +--------+---------+ + + + | Date | Type | Specialty | Care Team | Description | +--------+---------+ + + + | 11/18/ | Office | Neurology | Shirley Murdock NP | | | 2019 | Visit | | [address] | | | | | | [place] | | | | | | [address] | | | | | | [phone] | | | | | | | | +--------+---------+ + + + | 11/25/ | Office | Cardiology | Katheryn Hammonds DO | | | 2019 | Visit | | [address] | | | | | | [place] | | | | | | [id number] | | | | | | | | +--------+---------+ + + + documented as of this encounter Visit Diagnoses + + | Diagnosis | + + | Migraine without aura and without status migrainosus, not intractable - Primary | | Migraine without aura, without mention of intractable migraine without mention of status | | migrainosus | + + documented in this encounter"
--- OUTSIDE RECORDS SUMMARY | ~2019-11-06 | XMS | Encounter Summary ---
Demographics + + + | Address | [address] | | | [place] [address] | + + + | Home Phone | | + + + | Preferred Language | Unknown | + + + | Marital Status | | + + + | Buddhism Affiliation | NRP | + + + [...] Team Providers + +------+ + | Care Community Development Director Name | Role | Phone | [...] | | [address] | [facility] [place] | | | | | for Health and | [address] | | | | | Healing, [address] | [phone] | | | | | [place], [place] | | | | | | [address] | | | | | | [phone] | | | +--------+ + + + [...] [address] | | | | | | [place], [place] | | | | | | [address] | | | | | | [phone] | | | | | | | | +--------+ + + + + | 11/17/ | Video/TeleH | Pain Management | Florencio Lockett, | | | 2019 | ealth-Sched | | PhD [address] | | | | uled | | [place], [place] | | | | | | [address] | | | | | | [phone] | | | | | | | | +--------+ + + + + | 12/01/ | Video/TeleH | Pain Management | Florencio Lockett, | | | 2019 | ealth-Sched | | PhD [address] | | | | uled | | [place], [place] | | | | | | [address] | | | | | | [phone] | | | | | | | | +--------+ + + + + | 01/06/ | Office | Plastic Surgery | Kuldip Harrell MD | | | 2019 | Visit | | [address] | | | | | | [place], [place] | | | | | | [address] | | | | | | [phone] | | | | | | | | +--------+ + + + + documented as of this encounter Visit Diagnoses Not on filedocumented in this encounter"
--- OUTSIDE RECORDS SUMMARY | ~2019-11-06 | XMS | Encounter Summary ---
Demographics + + + | Address | [address] | | | [place] [address] | + + + | Home Phone | | + + + | Preferred Language | Unknown | + + + | Marital Status | | + + + | Jewish Affiliation | NRP | + + + | Race | White | + + + | Ethnic Group | Not or | + + + Author + + + | Author | [facility] | + + + | Organization | [facility] | + + + | Address | Unknown | + + + | Phone | Unavailable | + + + Support + + +---------+ + | Name | Relationship | Address | Phone | + + +---------+ + | Jeovanny Hernández | ECON | Unknown | | + + +---------+ + Care Team Providers + +------+ + | Care Wood Miller Name | Role | Phone | + [...] | | | | | | | MI | | | | | | | ESOPHAGEAL | | | | | | | MOTILITY | | | | | | | STUDY | | | | | | | W/INTERP AND | | | | | | | REPORT MI | | | | | | | G-ESOPH | | | | | | | REFLX TST | | | | | | | W/ELECTROD | | | +--------+--------+ + + + + Encounter Details +--------+------+ + + + | Date | Type | Department | Care Team | Description | +--------+------+ + + + | 04/12/ | Lab | Laboratory at [facility] | | S/P gastric bypass | | 2018 | | [address] | | | | | | [facility] | | | | | | and Healing, | | | | | | [address] | | | | | | [place], [place] | | | | | | [address] | | | | | | [phone] | | | +--------+------+ + + + [...] [address] | | | | | | [place], [place] | | | | | | [address] | | | | | | [phone] | | | | | | | | +--------+ + + + + | 11/17/ | Video/TeleH | Pain Management | Florencio Lockett, | | | 2019 | ealth-Sched | | PhD [address] | | | | uled | | [place], [place] | | | | | | [address] | | | | | | [phone] | | | | | | | | +--------+ + + + + | 12/01/ | Video/TeleH | Pain Management | Florencio Lockett, | | | 2019 | ealth-Sched | | PhD [address] | | | | uled | | [place], [place] | | | | | | [address] | | | | | | [phone] | | | | | | | | +--------+ + + + + | 01/06/ | Office | Plastic Surgery | Kuldip Harrell MD | | | 2019 | Visit | | [address] | | | | | | [place], [place] | | | | | | [address] | | | | | | [phone] | | | | | | | [...] + + + | [facility] | [address] | [place] [address] | | | [facility] | | | | | HEALTH + [...] LABORATORY | | | | | | [facility], | | | | | | [facility] | | | | | | [...] | + + + + + | [facility] | [address] | [place] [address] | | | SERVICES, [facility] | | | | | HEALTH [...] INTFC | | | | determined by [facility] | | | | | | Laboratories. See | | | | | | Compliance Statement B: | | | | | | Wallit.RIDERS/CSPerformed | | | | | | by [address] | | | | | | [address]isc[address] Osvaldo, [facility] | | | | | | [address] | | | | | | [phone].Wallit. | | | | | | RIDERS, Josué Lantigua MD, | | | | [...] [facility] | [address] | [place], [place] | | | UNIV PTH - INTFC | | [address] | | + + + + + [...] | | | | | determined by [facility] | | | | | | Laboratories. See | | | | | | Compliance Statement B: | | | | | | Sooligan/CSPerformed | | | | | | by [address] | | | | | | [place], [place] | | | | | | [address] | | | | | | [phone].Wallit. | | | | | | RIDERSJosué MD, | | | | | | [...] [facility] | [address] | [place], [place] | | | UNIV PTH - INTFC | | [address] | | + + + + + [...] [facility] | [address] | [place] [address] | | | SERVICES, CORE | PARK [...] | + + + + + | [facility] | [address] | [place] [address] | | | SERVICES, CORE | [address] [...] | | | | | determined by [facility] | | | | | | Laboratories. See | | | | | | Compliance Statement B: | | | | | | Wallit.RIDERS/CSPerformed | | | | | | by [address] | | | | | | [facility]isc[facility],[place] | | | | | | [address] | | | | | | [phone].Wallit. | | | | | | comJosué [...] [facility] | [address] | [place], [place] | | | UNIV PTH - INTFC | | [address] | | + + + + + [...] [facility] | | | (PAULIE EMMANUEL) | [facility],[address] | | REG UNIV | | | SERUM | Francisc[address] Riley, [facility] | | PTH - INTFC | | | | [address] | | | | | | [phone].Wallit. | | | | | | RIDERS, Josué Lantigua MD, | | | | | | Lab. Director | | | | + + + + + + | VITAMIN E | 5.9Comment: Test | 5.5 - 18.0 mg/L | [facility] | | | (ALPHA | developed and | | REG UNIV | | | EMMANUEL), SERUM | characteristics | | PTH - INTFC | | | | determined by [facility] | | | | | | Laboratories. See | | | | | | Compliance Statement B: | | | | | | Wallit.RIDERS/CS | | | | + + + + + + + + | Specimen | + + | Blood - Blood | | (substance) | + + + + + + + | Performing | Address | City/State/Zipcode | Phone Number | | Organization | | | | + + + + + | [facility] | [address] | [place], [place] | | | UNIV PTH - INTFC | | [address] | | + + + + + [...] | | | | | determined by [facility] | | | | | | Laboratories. See | | | | | | Compliance Statement B: | | | | | | Wallit.RIDERS/CSPerformed | | | | | | by [address] | | | | | | [facility]isc[facility],[place] | | | | | | [address] | | | | | | [phone].Wallit. | | | | | | [facility] hospital[facility] MD, | | | | | | [...] + + | [facility] | [address] | [place], [place] | | | UNIV PTH - INTFC | | [address] | | + + + + + [...] | + + + + + | [facility] | [address] | [place] [address] | | | SERVICES, CORE | PARK [...] | + + + + + | [facility] | [address] | [place] [address] | | | SERVICES, SPECIAL | [address] | | | | IMM + [...] | + + + + + | [facility] | [address] | [place] [address] | | | SARAH, ADONAY | [address] | | | + [...] | | | | | determined by [facility] [facility] | | | | | | Laboratories. See | | | | | | Compliance Statement B: | | | | | | Wallit.RIDERS/CSPerformed | | | | | | by [address] | | | | | | Francisc[facility],[place] | | | | | | [address] | | | | | | [phone].Fantáxicolab. | | | | | | comJosué [...] [facility] | [address] | [place], [place] | | | UNIV PTH - INTFC | | [address] | | + + + + + [...] | | | LABORATORY | | | AUSTRIAN | | | SERVICES, | | | [...] MDRD equation recommended by the National | [facility] | | Kidney Disease Education Program. Estimated [...] | + + + + + | [facility] [employer] | [address] | [place] [address] | | | SERVICES, [facility] | | | | | HEALTH + HEALING | | | | + + + + + documented in this encounter Visit Diagnoses + + | Diagnosis | + + | S/P gastric bypass Bariatric surgery status | + + documented in this encounter"
--- OUTSIDE RECORDS SUMMARY | ~2019-11-06 | XMS | Encounter Summary ---
Demographics + + + | Address | [address] | | | [place] [address] | + + + | Home Phone | | + + + | Preferred Language | Unknown | + + + | Marital Status | | + + + | Jain Affiliation | NRP | + + + | Race | White | + + + | Ethnic Group | Not or | + + + Author + + + | Author | [facility] | + + + | Organization | [facility] | + + + | Address | Unknown | + + + | Phone | Unavailable | + + + Support + + +---------+ + | Name | Relationship | Address | Phone | + + +---------+ + | Jeovanny Hernández | ECON | Unknown | | + + +---------+ + Care Team Providers + +------+ + | Care Cement Mixer Driver Name | Role | Phone | + [...] [address] | | | | | [id number] | [address] | | | | | [place], | [place], [place] | | | | | [place] [address] | [address] | | | | | [phone] | [phone] | | | | | | | [...] | Visit | | [address] | | | | | | [place], [place] | | | | | | [address] | | | | | | [phone] | | | | | | | | +--------+ + + + + | 11/17/ | Video/TeleH | Pain Management | Florencio Lockett, | | | 2019 | ealth-Sched | | PhD [address] | | | | uled | | [place], [place] | | | | | | [address] | | | | | | [phone] | | | | | | | | +--------+ + + + + | 12/01/ | Video/TeleH | Pain Management | Florencio Lockett G, | | | 2019 | ealth-Sched | | PhD [address] | | | | uled | | [place], [place] | | | | | | [address] | | | | | | [phone] | | | | | | | | +--------+ + + + + | 01/06/ | Office | Plastic Surgery | Kuldip Harrell MD | | | 2019 | Visit | | [address] | | | | | | [place], [place] | | | | | | [address] | | | | | | [phone] | | | | | | | [...]
--- OUTSIDE RECORDS SUMMARY | ~2019-11-06 | XMS | Encounter Summary ---
Demographics + + + | Address | [address] | | | [place] [address] | + + + | Home Phone | | + + + | Preferred Language | Unknown | + + + | Marital Status | | + + + | Latter-Day Affiliation | Unknown | + + + | Race | Unknown | + + + | Ethnic Group | Unknown | + + + Author + + + | Author | [facility] | | | and [place] | + + + | Organization | [facility] | | | [...] [place], | | | | | [place] [address] | | + + + + + Care Team Providers + +------+ + | Care Recessing Machine Operator Name | Role | Phone | + +------+ + | Alisha Stovall | PCP | | | PA-C | | | + +------+ + Reason for Referral Diagnostic/Screening (Routine) +--------+--------+ + + + + | Status | Reason | Specialty | Diagnoses / | Referred By | Referred To | | | | | Procedures | Contact | Contact | +--------+--------+ + + + + | Closed | | Radiology | Diagnoses | Marycruz, | Cc [facility] Mri | | | | | Intractable | Caity Morton, | [address] | | | | | migraine | MD [address] | | | | | without aura | [address] | [place], [place] | | | | | and without | [address], [place] | [address] | | | | | status | [place], | Phone: | | | | | migrainosus | [place] [address] | [phone] | | | | | Procedures | Phone: | Fax: | | | | | MRI Brain w | [phone] | [phone] | | | | | wo Contrast | Fax: | | | | | | | [phone] | | +--------+--------+ + + + + Reason for Visit Diagnostic/Screening (Routine) +--------+--------+ + + + + | Status | Reason | Specialty | Diagnoses / | Referred By | Referred To | | | | | Procedures | Contact | Contact | +--------+--------+ + + + + | Closed | | Radiology | Diagnoses | Marycruz, | Cc Wgr Mri | | | | | Intractable | Caity Morton, | [address] | | | | | migraine | [address] | | | | | without aura | [address] | [place], [place] | | | | | and without | [address], [place] | [address] | | | | | status | [place], | Phone: | | | | | migrainosus | [place] [address] | [phone] | | | | | Procedures | Phone: | Fax: | | | | | MRI Brain w | [phone] | [phone] | | | | | wo Contrast | Fax: | | | | | | | [phone] | | +--------+--------+ + + + + Encounter Details +--------+ + + + + | Date | Type | Department | Care Team | Description | +--------+ + + + + | 09/14/ | Hospital | [place] | Caity Joel | Intractable migraine | | 2019 | Encounter | Hospital MRI [address] | without aura and | | | | [address] | [address] [place] | without status | | | | [place], [place] | [place] [address] | migrainosus | | | | [address] | [phone] | | | | | [phone] | | | +--------+ + + + [...] 0 | 07/28/19 | | | (MYCOSTATIN) [id number] | | | | 19 | 9 [...] [place] | | | | | | [address] | | | | | | [phone] | | | | | | | | +--------+---------+ + + + | 11/25/ | Office | Cardiology | Katheryn Hammonds DO | | | 2020 | Visit | | [address] | | | | | | [facility] | | | | | | [address] | | | | | | | | +--------+---------+ + + + documented as of this encounter Procedures + +--------+ + + + | Procedure Name | Priori | Date/Time | Associated Diagnosis | Comments | | | ty | | | | + +--------+ + + + | MRI BRAIN W WO | Routin | 09/14/2018 | Intractable | Results for this | | CONTRAST | e | 3:08 PM | migraine without | procedure are in the | | | | PDT | aura and without | results section. | | | | | status migrainosus | | + +--------+ + + + documented in this encounter Results MRI Brain w wo Contrast (09/14/2018 3:08 PM PDT) + + | Specimen | + + | | + + + + + | Impressions | Performed At | + + + | IMPRESSION: 1. No acute intracranial process. 2. 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 3. Partial empty sella turcica. 4. 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 Dictated by: Peter Brock | | + + + + + + | Narrative | Performed At | + + + | EXAMINATION: MRI BRAIN W WO CONTRAST HISTORY: Intractable | [facility] | | headaches COMPARISON STUDY: None TECHNIQUE: Multiplanar | | | multi sequence MRI of the brain is performed without and with | | | contrast. 15 mL Gadavist was injected intravenously without post | | | contrast reaction. FINDINGS: Diffusion-weighted images show no | | | evidence of restricted diffusion. The murdock-white matter interface is | | | intact. No acute intracranial hemorrhage, mass lesion, or midline | | | shift. No abnormal enhancement. Basilar cisterns are patent. | | | Ventricles are symmetric. Cerebellum volume is normal. Sulci are age | | | appropriate. Major flow voids are present. No focal white matter | | | lesion. Paranasal sinuses and mastoid air cells are clear. Concavity | | | of the pituitary gland is noted. Corpus callosum is unremarkable. | | | Brainstem is unremarkable. Mild cerebellar tonsillar ectopia. | | | Hyperostosis frontalis. | | + + + + + | Procedure Note | + + | Camilo, Rad Results In - 09/14/2018 3:22 PM PDT EXAMINATION:MRI BRAIN W WO | | CONTRASTHISTORY:Intractable headachesCOMPARISON STUDY:NoneTECHNIQUE:Multiplanar multi | | sequence MRI of the brain is performed without and with contrast. 15 mL Gadavist was | | injected intravenously without post contrast reaction.FINDINGS:Diffusion-weighted images | | show no evidence of restricted diffusion.The murdock-white matter interface is intact.No | | acute intracranial hemorrhage, mass lesion, or midline shift.No abnormal | | enhancement.Basilar cisterns are patent.Ventricles are symmetric.Cerebellum volume is | | normal.Sulci are age appropriate.Major flow voids are present.No focal white matter | | lesion.Paranasal sinuses and mastoid air cells are clear.Concavity of the pituitary | | gland is noted.Corpus callosum is unremarkable.Brainstem is unremarkable.Mild cerebellar | | tonsillar ectopia.Hyperostosis frontalis.IMPRESSION: IMPRESSION:1. No acute | | intracranial process.2. Mild cerebellar tonsillar ectopia.3. Partial empty sella | | turcica.4. Hyperostosis frontalis.Dictated by: Peter Aguilaram | |The murdock-white matter interface is intact. | |No acute intracranial hemorrhage, mass lesion, or midline shift. | |No abnormal enhancement. | |Basilar cisterns are patent. | |Ventricles are symmetric. | |Cerebellum volume is normal. | |Sulci are age appropriate. | |Major flow voids are present. | |No focal white matter lesion. | |Paranasal sinuses and mastoid air cells are clear. | |Concavity of the pituitary gland is noted. | |Corpus callosum is unremarkable. | |Brainstem is unremarkable. | |Mild cerebellar tonsillar ectopia. | |Hyperostosis frontalis. | | | |IMPRESSION: | |IMPRESSION: | |1. No acute intracranial process. | |2. Mild cerebellar tonsillar ectopia. | |3. Partial empty sella turcica. | |4. Hyperostosis frontalis. | | | |Dictated by: Peter Brock | | | | | + + + +---------+ + + | Performing | Address | City/State/Zipcode | Phone Number | | Organization | | | | + +---------+ + + | [facility] | | | | + +---------+ + + documented in this encounter Visit Diagnoses + + | Diagnosis | + + | Intractable migraine without aura and without status migrainosus Migraine without | | aura, with intractable migraine, so stated, without mention of status migrainosus | + + documented in this encounter Administered Medications + +--------+ +--------+------+------+ | Medication Order | MAR | Action | Dose | Rate | Site | | | Action | Date | | | | + +--------+ +--------+------+------+ | gadobutrol (GADAVIST) injection | Given | 09/15/19 | 15 mLs | | | | 15 mL 15 mL, Intravenous, ONCE | | 19 3:09 | | | | | PRN, Other, Starting 09/14/18 | | PM PDT | | | | | at 1508, For 1 dose, MRI | | | | | | + +--------+ +--------+------+------+ +---+---+ | | | +---+---+ documented in this encounter"
--- OUTSIDE RECORDS SUMMARY | ~2019-11-06 | XMS | Encounter Summary ---
Demographics + + + | Address | [address] | | | [place] [address] | + + + | Home Phone | | + + + | Preferred Language | Unknown | + + + | Marital Status | | + + + | Latter Day Affiliation | NRP | + + + | Race | White | + + + | Ethnic Group | Not or | + + + Author + + + | Author | [facility] | + + + | Organization | [facility] | + + + | Address | Unknown | + + + | Phone | Unavailable | + + + Support + + +---------+ + | Name | Relationship | Address | Phone | + + +---------+ + | Jeovanny Hernández | ECON | Unknown | | + + +---------+ + Care Team Providers + +------+ + | Care Database Dba Name | Role | Phone | + +------+ + | Alisha Stovall PA-C | PCP | | + +------+ + Encounter Details +--------+------+ + + + | Date | Type | Department | Care Team | Description | +--------+------+ + + + | 12/21/ | Lab | Laboratory at [facility] | | | | 2019 | | [address] | | | | | | [facility] | | | | | | and Healing, | | | | | | [address] | | | | | | [place], [place] | | | | | | [address] | | | | | | [phone] | | | +--------+------+ + + + [...] [address] | | | | | | [place], [place] | | | | | | [address] | | | | | | [phone] | | | | | | | | +--------+ + + + + | 11/17/ | Video/TeleH | Pain Management | Florencio Lockett, | | 2019 | ealth-Sched | | PhD [address] | | | | uled | | [place], [place] | | | | | | [address] | | | | | | [phone] | | | | | | | | +--------+ + + + + | 12/01/ | Video/TeleH | Pain Management | Florencio Lcokett G, | | | 2019 | ealth-Sched | | PhD [address] | | | | uled | | [place], [place] | | | | | | [address] | | | | | | [phone] | | | | | | | | +--------+ + + + + | 01/06/ | Office | Plastic Surgery | Kuldip Harrell MD | | | 2019 | Visit | | [address] | | | | | | [place], [place] | | | | | | [address] | | | | | | [phone] | | | | | | | | +--------+ + + + + documented as of this encounter Procedures + +--------+ + + + | Procedure Name | Priori | Date/Time | Associated Diagnosis | Comments | | | ty | | | | + +--------+ + + + | H. PYLORI AG, FECAL | Routin | 01/10/2019 | Anxiety | Results for this | | EIA | e | 1:42 PM | Dehydration Morbid | procedure are in the | | | | PDT | obesity ([facility]) | results section. | | | | | Gastroesophageal | | | | | | reflux disease, | | | | | | esophagitis presence | | | | | | not specified S/P | | | | | | gastric bypass | | | | | | Epigastric pain | | | | | | Chest pain, | | | | | | unspecified type | | | | | | Dumping syndrome | | | | | | Decreased oral | | | | | | intake | | + +--------+ + + + | PTH, SERUM | Routin | 12/21/2018 | Anxiety | Results for this | | | e | 1:51 PM | Dehydration Morbid | procedure are in the | | | | PDT | obesity ([facility]) | results section. | | | | | Gastroesophageal | | | | | | reflux disease, | | | | | | esophagitis presence | | | | | | not specified S/P | | | | | | gastric bypass | | | | | | Epigastric pain | | | | | | Chest pain, | | | | | | unspecified type | | | | | | Dumping syndrome | | | | | | Decreased oral | | | | | | intake | | + +--------+ + + + | VITAMIN D, | Routin | 12/21/2018 | Anxiety | Results for this | | 25-HYDROXY, SERUM | e | 1:51 PM | Dehydration Morbid | procedure are in the | | | | PDT | obesity ([facility]) | results section. | | | | | Gastroesophageal | | | | | | reflux disease, | | | | | | esophagitis presence | | | | | | not specified S/P | | | | | | gastric bypass | | | | | | Epigastric pain | | | | | | Chest pain, | | | | | | unspecified type | | | | | | Dumping syndrome | | | | | | Decreased oral | | | | | | intake | | + +--------+ + + + | VITAMIN B-12 | Routin | 12/21/2018 | Anxiety | Results for this | | | e | 1:51 PM | Dehydration Morbid | procedure are in the | | | | PDT | obesity ([facility]) | results section. | | | | | Gastroesophageal | | | | | | reflux disease, | | | | | | esophagitis presence | | | | | | not specified S/P | | | | | | gastric bypass | | | | | | Epigastric pain | | | | | | Chest pain, | | | | | | unspecified type | | | | | | Dumping syndrome | | | | | | Decreased oral | | | | | | intake | | + +--------+ + + + | VITAMIN B1, WHOLE | Routin | 12/21/2018 | Anxiety | Results for this | | BLOOD | e | 1:51 PM | Dehydration Morbid | procedure are in the | | | | PDT | obesity ([facility]) | results section. | | | | | Gastroesophageal | | | | | | reflux disease, | | | | | | esophagitis presence | | | | | | not specified S/P | | | | | | gastric bypass | | | | | | Epigastric pain | | | | | | Chest pain, | | | | | | unspecified type | | | | | | Dumping syndrome | | | | | | Decreased oral | | | | | | intake | | + +--------+ + + + | METHYLMALONIC ACID, | Routin | 12/21/2018 | Anxiety | Results for this | | SERUM | e | 1:51 PM | Dehydration Morbid | procedure are in the | | | | PDT | obesity ([facility]) | results section. | | | | | Gastroesophageal | | | | | | reflux disease, | | | | | | esophagitis presence | | | | | | not specified S/P | | | | | | gastric bypass | | | | | | Epigastric pain | | | | | | Chest pain, | | | | | | unspecified type | | | | | | Dumping syndrome | | | | | | Decreased oral | | | | | | intake | | + +--------+ + + + | LIPID SET (TRIG, T | Routin | 12/21/2018 | Anxiety | Results for this | | CHOL, HDL, CALC LDL) | e | 1:51 PM | Dehydration Morbid | procedure are in the | | | | PDT | obesity (HCC) | results section. | | | | | Gastroesophageal | | | | | | reflux disease, | | | | | | esophagitis presence | | | | | | not specified S/P | | | | | | gastric bypass | | | | | | Epigastric pain | | | | | | Chest pain, | | | | | | unspecified type | | | | | | Dumping syndrome | | | | | | Decreased oral | | | | | | intake | | + +--------+ + + + | IRON AND TIBC, SERUM | Routin | 12/21/2018 | Anxiety | Results for this | | | e | 1:51 PM | Dehydration Morbid | procedure are in the | | | | PDT | obesity (HCC) | results section. | | | | | Gastroesophageal | | | | | | reflux disease, | | | | | | esophagitis presence | | | | | | not specified S/P | | | | | | gastric bypass | | | | | | Epigastric pain | | | | | | Chest pain, | | | | | | unspecified type | | | | | | Dumping syndrome | | | | | | Decreased oral | | | | | | intake | | + +--------+ + + + | HOMOCYSTEINE TOTAL, | Routin | 12/21/2018 | Anxiety | Results for this | | PLASMA | e | 1:51 PM | Dehydration Morbid | procedure are in the | | | | PDT | obesity ([facility]) | results section. | | | | | Gastroesophageal | | | | | | reflux disease, | | | | | | esophagitis presence | | | | | | not specified S/P | | | | | | gastric bypass | | | | | | Epigastric pain | | | | | | Chest pain, | | | | | | unspecified type | | | | | | Dumping syndrome | | | | | | Decreased oral | | | | | | intake | | + +--------+ + + + | HEMOGLOBIN A1C, | Routin | 12/21/2018 | Anxiety | Results for this | | BLOOD | e | 1:51 PM | Dehydration Morbid | procedure are in the | | | | PDT | obesity (HCC) | results section. | | | | | Gastroesophageal | | | | | | reflux disease, | | | | | | esophagitis presence | | | | | | not specified S/P | | | | | | gastric bypass | | | | | | Epigastric pain | | | | | | Chest pain, | | | | | | unspecified type | | | | | | Dumping syndrome | | | | | | Decreased oral | | | | | | intake | | + +--------+ + + + | FERRITIN | Routin | 12/21/2018 | Anxiety | Results for this | | | e | 1:51 PM | Dehydration Morbid | procedure are in the | | | | PDT | obesity (HCC) | results section. | | | | | Gastroesophageal | | | | | | reflux disease, | | | | | | esophagitis presence | | | | | | not specified S/P | | | | | | gastric bypass | | | | | | Epigastric pain | | | | | | Chest pain, | | | | | | unspecified type | | | | | | Dumping syndrome | | | | | | Decreased oral | | | | | | intake | | + +--------+ + + + | COMPLETE METABOLIC | Routin | 12/21/2018 | Anxiety | Results for this | | SET | e | 1:51 PM | Dehydration Morbid | procedure are in the | | (NA,K,CL,CO2,BUN,CRE | | PDT | obesity ([facility]) | results section. | | AT,GLUC,CA,AST,ALT,B | | | Gastroesophageal | | | LUIS ANGEL TOTAL,ALK | | | reflux disease, | | | PHOS,ALB,PROT TOTAL) | | | esophagitis presence | | | | | | not specified S/P | | | | | | gastric bypass | | | | | | Epigastric pain | | | | | | Chest pain, | | | | | | unspecified type | | | | | | Dumping syndrome | | | | | | Decreased oral | | | | | | intake | | + +--------+ + + + | CBC ONLY | Routin | 12/21/2018 | Anxiety | Results for this | | | e | 1:51 PM | Dehydration Morbid | procedure are in the | | | | PDT | obesity (HCC) | results section. | | | | | Gastroesophageal | | | | | | reflux disease, | | | | | | esophagitis presence | | | | | | not specified S/P | | | | | | gastric bypass | | | | | | Epigastric pain | | | | | | Chest pain, | | | | | | unspecified type | | | | | | Dumping syndrome | | | | | | Decreased oral | | | | | | intake | | + +--------+ + + + documented in this encounter Results H. PYLORI AG, FECAL EIA (01/10/2019 1:42 PM PDT) + + + + + + | Component | Value | Ref Range | Performed | Pathologist | | | | | At | Signature | + + + + + + | H. PYLORI | NegativeComment: | Negative | [facility] | | | AG, FECAL | Performed by [facility] | | REG UNIV | | | EIA | Laboratories,[address] | | PTH - INTFC | | | | [place], [facility],[place] [address] | | | | | | [phone].[employer]. | | | | | | Josué mcdaniel MD, | | | | | | Lab. Director | | | | + + + + + + + + | Specimen | + + | Stool - Rectum | | structure (body | | structure) | + + + + + + + | Performing | Address | City/State/Zipcode | Phone Number | | Organization | | | | + + + + + | [facility] | [address] | [place], [place] | | | UNIV PTH - INTFC | | [address] | | + + + + + PTH, SERUM (12/21/2018 1:51 PM PDT) + +-------+ + + + | Component | Value | Ref Range | Performed | Pathologist | | | | | At | Signature | + +-------+ + + + | PTH, SERUM | 46 | 18 - 88 pg/mL | [facility] [...] LABORATORY | [address] | [place] [address] | | | [facility] | | | | | HEALTH + HEALING | | | | + + + + + VITAMIN D, 25-HYDROXY, SERUM (12/21/2018 1:51 PM PDT) + +-------+ + + + | Component | Value | Ref Range | Performed | Pathologist | | | | | At | Signature | + +-------+ + + + | VITAMIN D | 38.0 | 30 - 80 ng/mL | [facility] | | | 25 HYDROXY | | | LABORATORY | | | | | | [facility], | | | | | | CORE [...] | LABORATORY | | >18years: Deficiency: <20 ng/mL | SERVICES, CORE | | Insufficiency: 20-29 ng/mL | | | Optimum Level: 30-80 ng/mL High: | | | 81-150 ng/ml Toxic: >150 ng/mL | | + + + + + + + + | Performing | Address | City/State/Zipcode | Phone Number | | Organization | | | | + + + + + | [facility] | [address] | [place] [address] | | | SERVICES, CORE | [address] | | | + + + + + VITAMIN B-12 (12/21/2018 1:51 PM PDT) + +-------+ + + + | Component | Value | Ref Range | Performed | Pathologist | | | | | At | Signature | + +-------+ + + + | VITAMIN B12 | 450 | 193 - 986 pg/mL | [facility] [...] | + + + + + | [facility] | [address] | [place] [address] | | | SERVICES, CORE | [address] | | | + + + + + VITAMIN B1, WHOLE BLOOD (12/21/2018 1:51 PM PDT) + + + + + + | Component | Value | Ref Range | Performed | Pathologist | | | | | At | Signature | + + + + + + | VITAMIN B1, | 52 (L)Comment: | 70 - 180 nmol/L | [facility] | | | WHOLE | INTERPRETIVE | | REG UNIV | | | BLOOD | INFORMATION: Vitamin B1, | | PTH - INTFC | | | | Whole Blood This assay | | | | | | measures the | [...] | | | | | determined by [employer] | | | | | | Laboratories. See | | | | | | Compliance Statement B: | | | | | | [employer]/CSPerformed | | | | | | by [facility],[address] | | | | | | [place], [place] | | | | | | [address] | | | | | | [phone].[employer]. | | | | | | comJosué [...] [facility] | [address] | [place], [place] | | | UNIV PTH - INTFC | | [address] | | + + + + + METHYLMALONIC ACID, SERUM (12/21/2018 1:51 PM PDT) + + + + + + | Component | Value | Ref Range | Performed | Pathologist | | | | | At | Signature | + + + + + + | METHYLMALON | 0.12Comment: | 0.00 - 0.40 | [facility] | [...] | | | | | determined by [employer] | | | | | | Laboratories. See | | | | | | Compliance Statement B: | | | | | | [employer]/CSPerformed | | | | | | by [facility],[address] | | | | | | [address] [place], [facility],[place] | | | | | | [address] | | | | | | [phone].[employer]. | | | | | | com, [...] [facility] | [address] | [place], [place] | | | UNIV PTH - INTFC | | [address] | | + + + + + LIPID SET (TRIG, T CHOL, HDL, CALC LDL) (12/21/2018 1:51 PM PDT) + +---------+ + + + | Component | Value | Ref Range | Performed | Pathologist | | | | | At | Signature | + +---------+ + + + | CHOLESTEROL | 177 | <200 mg/dL | [facility] | | | (LAB) | | | LABORATORY | | | | | | SERVICES, | | | | | | CORE | | + +---------+ + + + | TRIGLYCERID | 141 | <150 mg/dL | [facility] | | | ES | | | LABORATORY | | | | | | SERVICES, | | | | | | CORE | | + +---------+ + + + | HDL | 46 | >40 mg/dL | [facility] | | | CHOLESTEROL | | | LABORATORY | | | | | | SERVICES, | | | | | | CORE | | + +---------+ + + + | HDL CMNT | No Hemo | | [facility] | | | | | | LABORATORY | | | | | | SERVICES, | | | | | | CORE | | + +---------+ + + + | LDL | 103 (H) | <100 mg/dL | [facility] | | | CHOLESTEROL | | | LABORATORY | | | , | | | SERVICES, | | | CALCULATED | | | CORE | | + +---------+ + + + | VLDL | 28 | <31 mg/dL | [facility] | | | CHOLESTEROL | | | LABORATORY | | | , | | | SERVICES, | | | CALCULATED | | | CORE | | + +---------+ + + + | NON-HDL | 131 (H) | <130 mg/dL | [facility] | | | CHOLESTEROL | | | LABORATORY | | | | | | SERVICES, | | | | | | CORE | | + +---------+ + + + + + | Specimen | + + | Blood - Blood | | (substance) | + + + + + | Narrative | Performed At | + + + | Cholesterol Reference Range: Desirable: <200 mg/dL | [facility] | | Borderline High: 200 - 239 mg/dL | LABORATORY | | High: >=240 mg/dL LDL Cholesterol Reference | SERVICES, CORE | | Range: Optimal: <100 mg/dL Near | | | Optimal: 100-129 mg/dL Borderline High: 130-159 mg/dL | | | High: 160-189 mg/dL Very High: | | | >=190 mg/dL non-HDL Cholesterol Reference Range: | | | Optimal: <130 mg/dL Near Optimal: 130-159 | | | mg/dL Borderline High: 160-189 mg/dL | | | High: 190-209 mg/dL Very High: >=210 mg/dL | | | Triglyceride Reference Range: Normal: <150 mg/dL | | | Borderline High: 150-199 mg/dL High: 200-499 | | | mg/dL Very High: >=500 mg/dL HDL Reference Range: | | | High Risk: <40 mg/dL Desirable: >=60 mg/dL | | + + + + + + + + | Performing | Address | City/State/Zipcode | Phone Number | | Organization | | | | + + + + + | [facility] | [address] | [place] [address] | | | [facility] | [address] | | | + + + + + IRON AND TIBC (12/21/2018 1:51 PM PDT) + +-------+ + + + | Component | Value | Ref Range | Performed | Pathologist | | | | | At | Signature | + +-------+ + + + | IRON | 87 | 30 - 160 ug/dL | [facility] | | | | | | LABORATORY | | | | | | SERVICES, | | | | | | CORE | | + +-------+ + + + | IRON BIND | 319 | 240 - 450 ug/dL | [facility] | | | CAP | | | LABORATORY | | | | | | SERVICES, | | | | | | CORE | | + +-------+ + + + | % | 27 | 20 - 50 % | [facility] [...] | + + + + + | [facility] [employer] | [address] | [place] [address] | | | SERVICES, ADONAY | [address] | | | + + + + + HOMOCYSTEINE TOTAL, PLASMA (12/21/2018 1:51 PM PDT) + + + + + + | Component | Value | Ref Range | Performed | Pathologist | | | | | At | Signature | + + + + + + | HOMOCYSTEIN | 12.5 (H) | 3.5 - 10.4 | [facility] [...] [facility] | [address] | [place] [address] | | | SERVICES, SPECIAL | [address] | | | | IMM + COAG | | | | + + + + + HEMOGLOBIN A1C, BLOOD (12/21/2018 1:51 PM PDT) + + + + + + | Component | Value | Ref Range | Performed | Pathologist | | | | | At | Signature | + + + + + + | HEMOGLOBIN | 5.4Comment: Hgb A1C | <5.7 % | [facility] | | | A1C | Interpretive | | LABORATORY | | | | Information: | | SERVICES, | | | | <5.7% - Normal | | SPECIAL IMM | | | | 5.7-6.4% - Consistent | | + COAG | | | | with pre-diabetes | | | | | | >6.4% - Consistent | | | | | | with diabetes | | | | | | | | | | + + + + + + | ESTIMATED | 108Comment: The | mg/dL | [facility] | | | AVERAGE | estimated Average | | LABORATORY | | | GLUCOSE | Glucose (eAG) number is | | SERVICES, | | | | calculated from the | | SPECIAL IMM | | | | result of the A1c test. | | + COAG | | | | The eAG shows what the | | | | | | average blood glucose | | | | | | was over the previous 2 | | | | | | to 3 months. | | | | + + + + + + + + | Specimen | + + | Blood - Blood | | (substance) | + + + + + | Narrative | Performed At | + + + | Alternate forms of testing such as fructosamine should be | [facility] | | considered for monitoring intermediate frame tender glycemic control in patients with: | LABORATORY | | Increased red cell turnover, certain hemoglobinopathies (e.g., HbS, | SERVICES, | | HbE, HbC and thalassemia syndromes), anemias, blood loss, chronic | SPECIAL IMM + | | liver disease and hemochromatosis (artefactually low HbA1c); iron | [facility]AG | | deficiency anemia (artefactually high HbA1c due to enhanced glycation | | | of hemoglobin). | | + + + + + + + + | Performing | Address | City/State/Zipcode | Phone Number | | Organization | | | | + + + + + | [facility] | [address] | [place] [address] | | | SERVICES, SPECIAL | [address] | | | | IMM + COAG | | | | + + + + + FERRITIN (12/21/2018 1:51 PM PDT) + + + + + + | Component | Value | Ref Range | Performed | Pathologist | | | | | At | Signature | + + + + + + | FERRITIN | 95Comment: Male and | 50 - 200 ng/mL [...] | + + + + + | [facility] | [address] | [place] [address] | | | SERVICES, CORE | [address] | | | + + + + + COMPLETE METABOLIC SET (NA,K,CL,CO2,BUN,CREAT,GLUC,CA,AST,ALT,BILI TOTAL,ALK PHOS,ALB,PROT TOTAL) (12/21/2018 1:51 PM PDT) + +---------+ + + + | Component | Value | Ref Range | Performed | Pathologist | | | | | At | Signature | + +---------+ + + + | GLUCOSE, | 91 | 70 - 99 mg/dL | [facility] | | | PLASMA | | | LABORATORY | | | (LAB) | | | SERVICES, | | | | | | [facility] + | | | | | | HEALING | | + +---------+ + + + | BUN, PLASMA | 8 | 6 - 20 mg/dL | [facility] | | | (LAB) | | | LABORATORY | | | | | | SERVICES, | | | | | | [facility] | [facility] + | | | | | | HEALING | | + +---------+ + + + | CREATININE | 0.79 | 0.60 - 1.10 | [facility] | [...] | | | LABORATORY | | | [place] | | | SERVICES, | | | [...] +---------+ + + + | POTASSIUM, | 4.1 | 3.4 - 5.0 | [facility] | [...] + + + | TOTAL CO2, | 23 | 21 - 32 mmol/L | [facility] [...] +---------+ + + + | CALCIUM(ALB | 9.3 | 8.6 - 10.2 | [facility] | [...] +---------+ + + + | TOTAL | 8.0 | 6.4 - 8.2 g/dL | [facility] | | | PROTEIN, | | | LABORATORY | | | PLASMA | | | SERVICES, | | | (LAB) | | | [facility] | [facility] + | | | | | | HEALING | | + +---------+ + + + | ALBUMIN, | 3.9 | 3.5 - 4.7 g/dL | [facility] | | | PLASMA | | | LABORATORY | | | (LAB) | | | SERVICES, | | | | | | [facility] | [facility] | [facility] + | | | | | | HEALING | | + +---------+ + + + | ALK PHOS | 65 | 42 - 98 U/L | [facility] | | | | | | LABORATORY | | | | | | SERVICES, | | | | | | [facility] | [facility] + | | | | | | HEALING | | + +---------+ + + + | AST(SGOT) | 14 | <=41 U/L | [facility] | | | | | | LABORATORY | | | | | | SERVICES, | | | | | | [facility] | [facility] + | | | | | | HEALING | | + +---------+ + + + | ALT (SGPT) | 22 | <=60 U/L | [facility] | | | | | | LABORATORY | | | | | | SERVICES, | | | | | | [facility] | | [facility] + | | | | | | HEALING | | + +---------+ + + + | ANION GAP | 12 (H) | 4 - 11 mmol/L | [facility] | | | | | | LABORATORY | | | | | | SERVICES, | | | | | | [facility] | | [facility] + | | | | | | HEALING | | + +---------+ + + + | ANION | 12 (H) | 4 - 11 mmol/L | [...] MDRD equation recommended by the National | [facility] | | Kidney Disease Education Program. Estimated [...] valid in the following situations: - | HEALING | | Patients under 18 years of [...] | + + + + + | [facility] | [address] | [place] [address] | | | [facility] | | | | | HEALTH + HEALING | | | | + + + + + documented in this encounter Visit Diagnoses Not on filedocumented in this encounter"
--- OUTSIDE RECORDS SUMMARY | ~2019-11-06 | XMS | Encounter Summary ---
Demographics + + + | Address | [address] | | | [place] [address] | + + + | Home Phone | | + + + | Preferred Language | Unknown | + + + | Marital Status | | + + + | Sabianism Affiliation | NRP | + + + | Race | White | + + + | Ethnic Group | Not or | + + + Author + + + | Author | [facility] | + + + | Organization | [facility] | + + + | Address | Unknown | + + + | Phone | Unavailable | + + + Support + + +---------+ + | Name | Relationship | Address | Phone | + + +---------+ + | Jeovanny Hernández | ECON | Unknown | | + + +---------+ + Care Team Providers + +------+ + | Care Fagot Heater Name | Role | Phone | + +------+ + | Alisha Stovall PA-C | PCP | | + +------+ + Encounter Details +--------+ + + + + | Date | Type | Department | Care Team | Description | +--------+ + + + + | 08/11/ | Telephone | Digestive Health | Kenan Norton, | | | 2019 | | Center at [facility] [address] | MD [address] | | | | | [address] [place] | [place], [place] | | | | | [facility] and | [address] | | | | | [place], [address] | [phone] | | | | | [place], [place] | | | | | | [address] | | | | | | [phone] | | | +--------+ + + + [...] [address] | | | | | | [place], [place] | | | | | | [address] | | | | | | [phone] | | | | | | | | +--------+ + + + + | 11/17/ | Video/TeleH | Pain Management | Florencio Lockett, | | | 2019 | ealth-Sched | | PhD [address] | | | | uled | | [place], [place] | | | | | | [address] | | | | | | [phone] | | | | | | | | +--------+ + + + + | 12/01/ | Video/TeleH | Pain Management | Florencio Lockett, | | | 2019 | ealth-Sched | | PhD [address] | | | | uled | | [place], [place] | | | | | | [address] | | | | | | [phone] | | | | | | | | +--------+ + + + + | 01/06/ | Office | Plastic Surgery | Kuldip Harrell MD | | | 2019 | Visit | | [address] | | | | | | [place], [place] | | | | | | [address] | | | | | | [phone] | | | | | | | | +--------+ + + + + documented as of this encounter Visit Diagnoses Not on filedocumented in this encounter"
--- OUTSIDE RECORDS SUMMARY | ~2019-11-06 | XMS | Encounter Summary ---
Demographics + + + | Address | [address] | | | [place] [address] | + + + | Home Phone | | + + + | Preferred Language | Unknown | + + + | Marital Status | | + + + | Bahai Affiliation | NRP | + + + | Race | White | + + + | Ethnic Group | Not or | + + + Author + + + | Author | [facility] | + + + | Organization | [facility] | + + + | Address | Unknown | + + + | Phone | Unavailable | + + + Support + + +---------+ + | Name | Relationship | Address | Phone | + + +---------+ + | Jeovanny Hernández | ECON | Unknown | | + + +---------+ + Care Team Providers + +------+ + | Care Fuels Engineer Name | Role | Phone | + +------+ + | Alisha Sotvall PA-C | PCP | | + +------+ + Encounter Details +--------+ + + + + | Date | Type | Department | Care Team | Description | +--------+ + + + + | 10/10/ | MyChart | Digestive Health | Kenan Norton, | RE: after surgery | | 2019 | Encounter | Center at [facility] [address] | MD [address] | | | | | [address] | [place], [place] | | | | | for Health and | [address] | | | | | Healing, [address] | [phone] | | | | | [place], [place] | | | | | | [address] | | | | | | [phone] | | | +--------+ + + + [...] [address] | | | | | | [place], [place] | | | | | | [address] | | | | | | [phone] | | | | | | | | +--------+ + + + + | 11/17/ | Video/TeleH | Pain Management | Florencio Lockett, | | | 2019 | ealth-Sched | | PhD [address] | | | | uled | | [place], [place] | | | | | | [address] | | | | | | [phone] | | | | | | | | +--------+ + + + + | 12/01/ | Video/TeleH | Pain Management | Florencio Lockett, | | | 2019 | ealth-Sched | | PhD [address] | | | | uled | | [place], [place] | | | | | | [address] | | | | | | [phone] | | | | | | | | +--------+ + + + + | 01/06/ | Office | Plastic Surgery | Kuldip Harrell MD | | | 2019 | Visit | | [address] | | | | | | [place], [place] | | | | | | [address] | | | | | | [phone] | | | | | | | | +--------+ + + + + documented as of this encounter Visit Diagnoses Not on filedocumented in this encounter"
--- OUTSIDE RECORDS SUMMARY | ~2019-11-06 | XMS | Encounter Summary ---
Demographics + + + | Address | [address] | | | [place] [address] | + + + | Home Phone [...] + + + | Author | [facility] | + + + | Organization | [facility] | + + + | Address | Unknown | + + + | Phone | Unavailable | + + + Support + + +---------+ + | Name | Relationship | Address | Phone | + + +---------+ + | Jeovanny Hernández | ECON | Unknown | | + + +---------+ + Care Team Providers + +------+ + | Care Print Washer Name | Role | Phone | + +------+ + | Alisha Stovall PA-C | PCP | | + +------+ + Reason for Visit + + + | Reason | Comments | + + + | Prior Authorization | [email or web address] | | Request - Medication | | + + + Encounter Details +--------+ + + + + | Date | Type | Department | Care Team | Description | +--------+ + + + + | 06/08/ | Telephone | Digestive Health | Cassidy Schneider Praveen, | Prior Authorization | | 2020 | | Center at [facility] [address] | MD [address] | Request - Medication | | | | [address] | [place], [place] | ([facility]) | | | | for Health and | [address] | | | | | [facility], [facility] 2 | [phone] | | | | | [place], [place] | | | | | | [address] | | | | | | [phone] | | | +--------+ + + + [...] | | 2019 | Visit | | [address] | | | | | | [place], [place] | | | | | | [address] | | | | | | [phone] | | | | | | | | +--------+ + + + + | 11/17/ | Video/TeleH | Pain Management | Florencio Lockett, | | | 2019 | ealth-Sched | | PhD [address] | | | | uled | | [place], [place] | | | | | | [address] | | | | | | [phone] | | | | | | | | +--------+ + + + + | 12/01/ | Video/TeleH | Pain Management | Florencio Lockett, | | | 2019 | ealth-Sched | | PhD [address] | | | | uled | | [place], [place] | | | | | | [address] | | | | | | [phone] | | | | | | | | +--------+ + + + + | 01/06/ | Office | Plastic Surgery | Kuldip Harrell MD | | 2019 | Visit | | [address] | | | | | | [place], [place] | | | | | | [address] | | | | | | [phone] | | | | | | | | +--------+ + + + + documented as of this encounter Visit Diagnoses Not on filedocumented in this encounter"
--- OUTSIDE RECORDS SUMMARY | ~2019-11-06 | XMS | Encounter Summary ---
Demographics + + + | Address | [address] | | | [place] [address] | + + + | Home Phone | | + + + | Preferred Language | Unknown | + + + | Marital Status | | + + + | Mormon Affiliation | NRP | + + + [...] Team Providers + +------+ + | Care Maintenance Mechanic Name | Role | Phone | + +------+ + | Alisha Stovall PA-C | PCP | | + +------+ + Reason for Visit + + + | Reason | Comments | + + + | Medication | | + + + Encounter Details +--------+ + + + + | Date | Type | Department | Care Team | Description | +--------+ + + + + | 05/27/ | Telephone | Digestive Health | Kenan Norton, | Medication | | 2019 | | Center at [facility] [address] | MD [address] | | | | | [address] | [place], [place] | | | | | for Health and | [address] | | | | | Healing, [address] | | | | | | [place], [place] | | | | | | [address] | | | | | | | [...] | | 2020 | Visit | | [address] | | | | | | [place], [place] | | | | | | [address] | | | | | | [phone] | | | | | | | | +--------+ + + + + | 07/27/ | Video/TeleH | Pain Management | Florencio Lockett, | | | 2019 | ealth-Sched | | PhD [address] | | | | uled | | [place], [place] | | | | | | [address] | | | | | | [phone] | | | | | | | | +--------+ + + + + | 12/01/ | Video/TeleH | Pain Management | Florencio Lockett, | | | 2019 | ealth-Sched | | PhD [address] | | | | uled | | [place], [place] | | | | | | [address] | | | | | | [phone] | | | | | | | | +--------+ + + + + | 01/06/ | Office | Plastic Surgery | Kuldip Harrell MD | | | 2019 | Visit | | [address] | | | | | | [place], [place] | | | | | | [address] | | | | | | [phone] | | | | | | | | +--------+ + + + + documented as of this encounter Visit Diagnoses Not on filedocumented in this encounter"
--- OUTSIDE RECORDS SUMMARY | ~2019-11-06 | XMS | Encounter Summary ---
Demographics + + + | Address | [address] | | | [place] [address] | + + + | Home Phone [...] Team Providers + +------+ + | Care Fur Examiner Name | Role | Phone | + +------+ + | Alisha Stovall PA-C | PCP | | + +------+ + Encounter Details +--------+ + + + + | Date | Type | Department | Care Team | Description | +--------+ + + + + | 07/23/ | Pharmacy | Outpatient Retail | | | | 2019 | Visit | [facility] | | | | | | [address] | | | | | | Loop [place], [place] | | | | | | [address] | | | | | | [phone] | | | +--------+ + + + [...] Ave | | | | | | [place], [place] | | | | | | [address] | | | | | | [phone] | | | | | | | | +--------+ + + + + | 11/17/ | Video/TeleH | Pain Management | Florencio Lockett, | | | 2019 | ealth-Sched | | PhD [address] | | | | uled | | [place], [place] | | | | | | [address] | | | | | | [phone] | | | | | | | | +--------+ + + + + | 12/01/ | Video/TeleH | Pain Management | Florencio Lockett, | | | 2019 | ealth-Sched | | PhD [address] | | | | uled | | [place], [place] | | | | | | [address] | | | | | | [phone] | | | | | | | | +--------+ + + + + | 01/06/ | Office | Plastic Surgery | Kuldip Harrell MD | | | 2020 | Visit | | [address] | | | | | | [place] | | | | | | [address] | | | | | | [phone] | | | | | | | | +--------+ + + + + documented as of this encounter Visit Diagnoses Not on filedocumented in this encounter"
--- OUTSIDE RECORDS SUMMARY | ~2019-11-06 | XMS | Encounter Summary ---
Demographics + + + | Address | [address] | | | [place] [address] | + + + | Home Phone [...] Author + + + | Author | [facility] | + + + | Organization | [facility] | + + + | Address | Unknown | + + + | Phone | Unavailable | + + + Support + + +---------+ + | Name | Relationship | Address | Phone | + + +---------+ + | Jeovanny Hernández | ECON | Unknown | | + + +---------+ + Care Team Providers + +------+ + | Care Specialty Department Supervisor Name | Role | Phone | [...] | | | Surg [facility] | [facility] [address] | | | | | | [address] | | | | | | Ave Center | Center for | | | | | | for Health | Health and | | | | | | and Healing, | Healing, | | | | | | Building 2 | [address] | | | | | | [place], | [place], [place] | | | | | | [place] | [address] | | | | | | [address] | Phone: | | | | | | Phone: | [phone] | | | | | | [phone] | Fax: | | | | | | Fax: | [phone] | | | | | | [phone] | | +--------+--------+ + + + + Encounter Details +--------+---------+ + + + | Date | Type | Department | Care Team | Description | +--------+---------+ + + + | 10/26/ | Office | Digestive Health | Lisa Medina RD | S/P gastric bypass | | 2019 | Visit | Center at [facility] | [address] | (Primary Dx); Morbid | | | | [address] | [place], | obesity (HCC) | | | | for Health and | [place] [address] | | | | | [place] [address] | [phone] | | | | | [place], [place] | | | | | | [address] | | | | | | [phone] | | | +--------+---------+ + + + [...] of visit: 9:42 to 10:11 (29 minutes nuyn-ab-gtmv with patient) Surgery: Gastric Bypass and Cholecystectomy [...] mellitus (HCC) Food logs: No Food choices: pashto yogurt, imitation crab, tuna, cream of mushroom [...] in symptoms. Lisa Medina RD, CNSC, LD [facility] Bariatrics [phone] documented in this enco unter Plan of Treatment +--------+ + + + + | Date | Type | Specialty | Care Team | Description | +--------+ + + + + | 11/13/ | Office | Gastroenterology | Cassidy Schneider, | | | 2019 | Visit | | MD [address] | | | | | | [place], [place] | | | | | | [address] | | | | | | [phone] | | | | | | | | +--------+ + + + + | 11/17/ | Video/TeleH | Pain Management | Florencio Lockett, | | | 2019 | ealth-Sched | | PhD [address] | | | | uled | | [place], [place] | | | | | | [address] | | | | | | [phone] | | | | | | | | +--------+ + + + + | 12/01/ | Video/TeleH | Pain Management | Florencio Lockett, | | | 2019 | ealth-Sched | | PhD [address] | | | | uled | | [place], [place] | | | | | | [address] | | | | | | [phone] | | | | | | | | +--------+ + + + + | 01/06/ | Office | Plastic Surgery | Kuldip Harrell MD | | | 2019 | Visit | | [address] | | | | | | [place], [place] | | | | | | [address] | | | | | | [phone] | | | | | | | | +--------+ + + + + documented as of this encounter Procedures + +--------+ + + + | Procedure Name | Priori | Date/Time | Associated Diagnosis | Comments | | | ty | | | | + +--------+ + + + | MT MNT RE-ASSESSMNT | Routin | 10/26/2018 | [...]
--- OUTSIDE RECORDS SUMMARY | ~2019-11-06 | XMS | Encounter Summary ---
Demographics + + + | Address | [address] | | | [place] [address] | + + + | Home Phone [...] Team Providers + +------+ + | Care Masonry Instructor Name | Role | Phone | + +------+ + | Alisha Stovall PA-C | PCP | | + +------+ + Encounter Details +--------+ + + + + | Date | Type | Department | Care Team | Description | +--------+ + + + + | 02/23/ | Abstract | Cardiology | Sarah Barba | | | 2018 | | Preventive at [facility] | SHANICE Villafuerte [address] | | | | | [address] | [address] [employer], | | | | | [facility] for [facility] | [place] [address] | | | | | and [address], | [phone] | | | | | [address] | | | | | | [place], [place] | | | | | | [address] | | | | | | [phone] | | | +--------+ + + + [...] [address] | | | | | | [place], [place] | | | | | | [address] | | | | | | [phone] | | | | | | | | +--------+ + + + + | 11/17/ | Video/TeleH | Pain Management | Florencio Lockett, | | | 2019 | ealth-Sched | | PhD [address] | | | | uled | | [place] [employer], [place] | | | | | | [address] | | | | | | [phone] | | | | | | | | +--------+ + + + + | 12/01/ | Video/TeleH | Pain Management | Florencio Lockett G, | | | 2019 | ealth-Sched | | PhD [address] | | | | uled | | [employer], [place] | | | | | | [address] | | | | | | [phone] | | | | | | | | +--------+ + + + + | 01/06/ | Office | Plastic Surgery | Kuldip Harrell MD | | | 2019 | Visit | | [address] | | | | | | [place], [place] | | | | | | [address] | | | | | | [phone] | | | | | | | | +--------+ + + + + documented as of this encounter Visit Diagnoses Not on filedocumented in this encounter"
--- OUTSIDE RECORDS SUMMARY | ~2019-11-06 | XMS | Encounter Summary ---
Demographics + + + | Address | [address] | | | [place] [address] | + + + | Home Phone [...] Team Providers + +------+ + | Care Nanotechnician Name | Role | Phone | + +------+ + | Alisha Stovall PA-C | PCP | | + +------+ + Reason for Visit + + + | Reason | Comments | + + + | Post-discharge | | | follow-up | | + + + Encounter Details +--------+ + + + + | Date | Type | Department | Care Team | Description | +--------+ + + + + | 09/27/ | Telephone | Digestive Health | Kenan Norton, | Post-discharge | | 2019 | | [place] at [facility] [address] | [address] | follow-up | | | | [address] | [place], [place] | | | | | for Health and | [address] | | | | | [place] [facility] | [phone] | | | | | [place], [place] | | | | | | [address] | | | | | | | [...] | | 2019 | Visit | | [address] | | | | | | [place], [place] | | | | | | [address] | | | | | | [phone] | | | | | | | | +--------+ + + + + | 11/17/ | Video/TeleH | Pain Management | Florencio Lockett, | | | 2019 | ealth-Sched | | PhD [address] | | | | uled | | [place], [place] | | | | | | [address] | | | | | | [phone] | | | | | | | | +--------+ + + + + | 12/01/ | Video/TeleH | Pain Management | Floerncio Lockett, | | | 2019 | ealth-Sched | | PhD [address] | | | | uled | | [place], [place] | | | | | | [address] | | | | | | [phone] | | | | | | | | +--------+ + + + + | 01/06/ | Office | Plastic Surgery | Kuldip Harrell MD | | | 2019 | Visit | | [address] | | | | | | [place], [place] | | | | | | [address] | | | | | | [phone] | | | | | | | | +--------+ + + + + documented as of this encounter Visit Diagnoses Not on filedocumented in this encounter"
--- OUTSIDE RECORDS SUMMARY | ~2019-11-06 | XMS | Encounter Summary ---
Demographics + + + | Address | [address] | | | [place] [address] | + + + | Home Phone | | + + + | Preferred Language | Unknown | + + + | Marital Status | | + + + | Anglican Affiliation | NRP | + + + [...] Team Providers + +------+ + | Care Dog Show Judge Name | Role | Phone | + [...] Records | | 2018 | | Center [place] [address] | | Review | | | | [address] [facility] | | | | | | for Health and | | | | | | Healing, [address] | | | | | | [place], [place] | | | | | | [address] | | | | | | [phone] | | | +--------+ + + + [...] [address] | | | | | | [place], [place] | | | | | | [address] | | | | | | [phone] | | | | | | | | +--------+ + + + + | 11/17/ | Video/TeleH | Pain Management | Florencio Lockett, | | | 2019 | ealth-Sched | | PhD [address] | | | | uled | | [place], [place] | | | | | | [address] | | | | | | [phone] | | | | | | | | +--------+ + + + + | 12/01/ | Video/TeleH | Pain Management | Florencio Lockett, | | | 2019 | ealth-Sched | | PhD [address] | | | | uled | | [place], [place] | | | | | | [address] | | | | | | [phone] | | | | | | | | +--------+ + + + + | 01/06/ | Office | Plastic Surgery | Kuldip Harrell MD | | | 2019 | Visit | | [address] | | | | | | [place], [place] | | | | | | [address] | | | | | | [phone] | | | | | | | | +--------+ + + + + documented as of this encounter Visit Diagnoses Not on filedocumented in this encounter"
--- OUTSIDE RECORDS SUMMARY | ~2019-11-06 | XMS | Encounter Summary ---
Demographics + + + | Address | [address] | | | [place] [address] | + + + | Home Phone [...] + + + | Author | [facility] | + + + | Organization | [facility] | + + + | Address | Unknown | + + + | Phone | Unavailable | + + + Support + + +---------+ + | Name | Relationship | Address | Phone | + + +---------+ + | Jeovanny Hernández | ECON | Unknown | | + + +---------+ + Care Team Providers + +------+ + | Care Outside Plant Technician Name | Role | Phone | + +------+ + | Alisha Stovall PA-C | PCP | | + +------+ + Encounter Details +--------+ + + + + | Date | Type | Department | Care Team | Description | +--------+ + + + + | 08/06/ | Abstract | Digestive Health | Kenan Norton, | | | 2019 | | Center at [facility] [address] | MD [address] | | | | | [address] [place] | [facility] [place] | | | | | for Health and | [address] | | | | | [place], [address] | [phone] | | | | | [place], [place] | | | | | | [address] | | | | | | [phone] | | | +--------+ + + + [...] [address] | | | | | | [place], [place] | | | | | | [address] | | | | | | [phone] | | | | | | | | +--------+ + + + + | 11/17/ | Video/TeleH | Pain Management | Florencio Lockett, | | | 2019 | ealth-Sched | | PhD [address] | | | | uled | | [place], [place] | | | | | | [address] | | | | | | [phone] | | | | | | | | +--------+ + + + + | 12/01/ | Video/TeleH | Pain Management | Florencio Lockett, | | | 2019 | ealth-Sched | | PhD [address] | | | | uled | | [place], [place] | | | | | | [address] | | | | | | [phone] | | | | | | | | +--------+ + + + + | 01/06/ | Office | Plastic Surgery | Kuldip Harrell MD | | | 2019 | Visit | | [address] | | | | | | [place], [place] | | | | | | [address] | | | | | | [phone] | | | | | | | | +--------+ + + + + documented as of this encounter Visit Diagnoses Not on filedocumented in this encounter"
--- OUTSIDE RECORDS SUMMARY | ~2019-11-06 | XMS | Encounter Summary ---
Demographics + + + | Address | [address] | | | [place] [address] | + + + | Home Phone | | + + + | Preferred Language | Unknown | + + + | Marital Status | | + + + | Jehovah'S Witness Affiliation | NRP | + + + | Race | White | + + + | Ethnic Group | Not or | + + + Author + + + | Author | [facility] | + + + | Organization | [facility] | + + + | Address | Unknown | + + + | Phone | Unavailable | + + + Support + + +---------+ + | Name | Relationship | Address | Phone | + + +---------+ + | Jeovanny Hernández | ECON | Unknown | | + + +---------+ + Care Team Providers + +------+ + | Care Risk And Compliance Analytics Director Name | Role | Phone | + +------+ + | Alisha Stovall PA-C | PCP | | + +------+ + Encounter Details +--------+ + + + + | Date | Type | Department | Care Team | Description | +--------+ + + + + | 08/26/ | MyChart | Digestive Health | Clinic, Surgery | Upcoming Virtual | | 2020 | Encounter | Center at [facility] [address] | | Visit. | | | | [facility] | | | | | | for Health and | | | | | | Healing, [address] | | | | | | [place], [place] | | | | | | [address] | | | | | | [phone] | | | +--------+ + + + [...] [address] | | | | | | [place], [place] | | | | | | [address] | | | | | | [phone] | | | | | | | | +--------+ + + + + | 11/17/ | Video/TeleH | Pain Management | Florencio Lockett, | | | 2019 | ealth-Sched | | PhD [address] | | | | uled | | [place], [place] | | | | | | [address] | | | | | | [phone] | | | | | | | | +--------+ + + + + | 12/01/ | Video/TeleH | Pain Management | Florencio Lockett, | | | 2019 | ealth-Sched | | PhD [address] | | | | uled | | [place], [place] | | | | | | [address] | | | | | | [phone] | | | | | | | | +--------+ + + + + | 01/06/ | Office | Plastic Surgery | Kuldip Harrell MD | | | 2019 | Visit | | [address] | | | | | | [place], [place] | | | | | | [address] | | | | | | [phone] | | | | | | | | +--------+ + + + + documented as of this encounter Visit Diagnoses Not on filedocumented in this encounter"
--- OUTSIDE RECORDS SUMMARY | ~2019-11-06 | XMS | Encounter Summary ---
Demographics + + + | Address | [address] | | | [place] [address] | + + + | Home Phone | | + + + | Preferred Language | Unknown | + + + | Marital Status | | + + + | Congregation Affiliation | Unknown | + + + | Race | Unknown | + + + | Ethnic Group | Unknown | + + + Author + + + | Author | [facility] | | | and [place] | + + + | Organization | [facility] | | | and [...] [place], | | | | | [place] [address] | | + + + + + Care Team Providers + +------+ + | Care Pig Breeder Name | Role | Phone | + +------+ + | Alisha Stovall | PCP | | | PA-C | | | + +------+ + Reason for Visit + + + | Reason | Comments | + + + | Migraine | follow up | + + + Encounter Details +--------+---------+ + + + | Date | Type | Department | Care Team | Description | +--------+---------+ + + + | 10/09/ | Office | [facility] | Jace, | Intractable migraine | | 2019 | Visit | [facility] | Matt, ALTITUDE CHAMBER TECHNICIAN [address] | without aura and | | | | CL[facility] [address] | [facility] [facility], | without status | | | | [address] [place], | [place] [address] | migrainosus | | | | [place] [address] | [phone] | | | | | [phone] | | | +--------+---------+ + + + [...] + + + | Blood Pressure | 122/65 | 10/09/2018 8:03 AM | | | | | PDT | | + + + + + | Pulse | 63 | 10/09/2018 8:03 AM | | | | | PDT | | + + + + + | Temperature | - | - | | + + + + + | Respiratory Rate | 16 | 10/09/2018 8:03 AM | | | | | PDT | | + + + + + | Oxygen Saturation | 99% | 10/09/2018 8:03 AM | | | | | PDT | | + + + + + | Inhaled Oxygen | - | - | | | Concentration | | | | + + + + + | Weight | 175.5 kg (387 lb) | 10/09/2018 8:03 AM | | | | | PDT | | + + + + + | Height | 182.9 cm (6') | 10/09/2018 8:03 AM | | | | | PDT | | + + + + + | Body Mass Index | 52.49 | 10/09/2018 8:03 AM | | | | | PDT | | + + + + + documented in this encounter Patient Instructions Patient Instructions Matt Mccormick FNP - 10/09/2018 8:15 AM PDTFormatting of this no te might be different from the original. Migraine Headache This often severe type of headache is different from other types of headaches in that sympt oms other than pain occur with the headache. Nausea and vomiting, lightheadedness, sensitivi ty to light (photophobia), and other visual disturbances are common migraine symptoms.The pain may last from a few hours to several days. It is not clear why migraines occur but cert ain factors called triggers can raise the risk of having a migraine attack.A migrain e may be triggered by emotional stressor depression, or by hormone changes during the mens trual cycle. Other triggers include control pills, overuse of migraine medicines, alco hol or caffeine, foods with tyramine (such as aged cheese and wine), eyestrain, weather cervantes ges, missed meals,or too little or too much sleep. Home care Follow these tips when taking care of yourself at home: Don t drive yourself home if you were given pain medicine for your headache or are hav ing visual symptoms. Instead, have someone else drive you home. Try to sleep when you get ho me. You should feel much better when you wake up. Cold can help ease migraine symptoms. Put an ice pack on your forehead or at the base of your skull. Put heat on the back of your neck to help ease any neck spasm. Drink only clear liquids or eat a light diet until your symptoms get better. This will h elp you avoid nausea and vomiting. How to prevent migraines Pay attention to what seems to trigger your headache. Try to avoid the triggers when you ca n. If you have frequent headaches, consider keeping a headache diary. In it, write down what you were doing, feeling, or eating in the hours before each headache. Show this to your [facility] provider to help find the cause of your headaches. If stress seems to be a trigger for your headaches, figure out what is causing stress in yo ur life. Learn new ways to handle your stress. Ideas include regular exercise, biofeedback, self-hypnosis, yoga, and meditation. Talk with your healthcare provider to find out more inf ormation about managing stress. Many books and digital media are also available on this subj ect. Tyramine is a substance found in many foods. It can trigger a migraine in some people. Thes e foods contain tyramine: Chocolate Yogurt All cheeses, but especially aged cheeses Smoked or pickled fish and meat, including adair, caviar, bologna, pepperoni, and maddi mi Liver Avocados Bananas Figs Raisins Red wine Try staying away from these foods for 1 to 2 months to see if you have fewer headaches. How to treat future headaches Take time out at the first sign of a headache, if possible. Find a quiet, dark, comforta ble place to sit or lie down. Let yourself relax or sleep. Put an ice pack on your forehead or on the area of greatest pain. A heating pad and mass age may help if you are having a muscle spasm and tightness in your neck. If you have been prescribed a medicine to stop a migraine headache, use this at the firs t warning sign of the headache for best results. First signs may be an aura or pain. If you need to take medicine often for your migraine, talk with your healthcare provider about other ways to prevent your headaches. Follow-up care Follow up with your healthcare provider, or as advised. Talk with your provider if you have frequent headaches. He or she can figure out a treatment plan. Ask if you can have medicine to take at home the next time you get a bad headache. This may keep you from having to visi t the emergency department in the future. You may need to see a headache specialist (neurolo gist) if you continue to have headaches. When to seek medical advice Call your healthcare provider right awayif any of these occur: Your head pain gets worse, or doesn t get better within 24 hours You can t keep liquids down (repeated vomiting) Pain in your sinuses, ears, or throat Fever of 100.4 F (38 C) or higher, or as directed by your healthcare provider Stiff neck Extreme drowsiness, confusion, or fainting Dizziness, or dizziness with spinning sensation (vertigo) Weakness in an arm or leg, or on one side of your face Difficulty talking or seeing Date Last Reviewed: 11/23/201519994197-5781 [employer] [address] [place] [address], [place] [address]. All righ ts reserved. This information is not intended as a substitute for professional medical care. Always follow your healthcare professional's instructions. Migraines and Cluster Headaches Migraines and cluster headaches cause intense, throbbing pain onone side of the head. Wit h a migraine, you may have nausea and vomiting and be sensitive to light and sound. You may also have warning signs, such as flashing lights or loss of parts of your vision, before the pain starts. This is called an aura. Migraines are 3 times more common in women than men. T his may be due to hormonal changes during menstruation. Typical migraines may last for 4 to 72 hours untreated. Cluster headaches recur in groups for days, weeks, or months. The pain is centered around o r behindone eye. The eye may also become red or teary, or the eyelid may droop.Migraines and cluster headaches can have many triggers. Preventing migraines and cluster headaches Try the following steps: Don't eat aged cheeses, nuts, beans, chocolate, red wine, or foods that contain caffeine , alcohol, tobacco, nitrates, and MSG. Try not to skip meals. Don t work in poor lighting. Reduce stress as much as you can. Get plenty of sleep each night. Exercise regularly under your doctor s guidance. Don't take headache medicines for more than 3 days, because of the risk of rebound heada ches. Don't take certain prescription medicines that are known to cause rebound headaches. Relieving the pain Try these suggestions: Stay quiet and rest. Use cold to numb the pain. Wrap ice or a cold can of soda in a cloth. Hold it against th e site of pain for10 minutes. Repeat every 20 minutes. Stay out of the light. Wear dark glasses, hospitalist nocturnist physician lights, and close the curtains. When outdoors, wear a brimmed hat. Drink lots of fluids. Sip caffeine-free flat soda to help relieve nausea. See your doctor if you get migraines or cluster headaches often. There are effective med icines to help treat or prevent them. Hormone therapy. This may help women whose migraines are related to hormonal changes dur ing menstruation. Date Last Reviewed: 03/24/201719998088-8627 [employer] [address] [place] [address], [place] [address]. All righ ts reserved. This information is not intended as a substitute for professional medical care. Always follow your healthcare professional's instructions. What Are Migraine and Tension Headaches? Although there are several types of headaches, migraine and tension headaches affect the mo st people. When you have a headache, it isn't your brain that's hurting. Your head aches bec ause nerves in the bones, blood vessels, meninges, and muscles of your head are irritated. T hese irritated nerves send pain signals to the brain, which identifies where you hurt and ho w bad the pain is. Talk with your healthcare provider about a treatment plan that may help relieve pain and pr event future headaches. What causes your headache? The actual headache process is not yet understood.Only rarely are headaches a sign of a s erious medical problem such as a tumor. Headache pain may be caused by abnormal interaction between the brain and the nerves and blood vessels in the head. A previous head injury or co ncussion, neck pain, environmental stresses, muscle tension, anxiety, depression, fatigue, s kipping meals, or certain foods and drinks may trigger headache pain. Brain scans are rarely needed and only for certain danger sign symptoms. CT scans are assoc iated with potential radiation effects and potential inaccurate false findings. What is referred pain? Headache pain can be referred pain, which ispain that has its source in one place but is felt in another. For example, pain behind the eyes may actually be caused by tense muscles i n the neck and shoulders. This means that the place that hurts may not be the part of the nehemiah dy that needs treatment. Is it a migraine? Migraine is a vascular headache that causes throbbing pain felt on one (most common) or bot h sides (less common) of the head. You may feel nauseated or vomit. This headache may also b e preceded or associated with changes in sight (like seeing spots or flashes of light), abil ity to speak, or sensation (aura). There are a wide variety of environmental and food-relate d triggers for migraines. The pain may last for 4 to 72 hours. Afterward, you may feel shaky for a day or so. If this is the first time you experience these symptoms, you should immedi ately seek medical attention becauseyou could be having a stroke. Is it a tension headache? This type of headache is usually a dull ache or a sensation of pressure on both sides of th e head. It may be associated with pain or tension in the neck and shoulders. Depression, anx iety, and stress can cause a tension headache. The pain may not have a definite beginning or end. It may come and go, or seem never to go away. When to call the healthcare provider Call yourhealthcare providerfor headaches thathappen along with any of these symptoms : Sudden, severe headache that is different from your usual headache pain Headache associated with fever Sudden headache associated with stiff neck Slurred speech Recurring headache in children Ongoing numbness or muscle weakness Loss of vision Pain following a head injury Convulsions, or a change in mental awareness A headache you would call "the worst headache you've ever had" New headaches in a woman Date Last Reviewed: 04/24/201719991526-3810 [employer] [address] [place] [address]. All [facility] ts reserved. This information is not intended as a substitute for professional medical care. Always follow your healthcare professional's instructions. documented in this encounter Progress Notes Matt Mccormick FNP - 10/09/2018 8:15 AM PDT Patient: Maria De Jesus Anna Medical Record: [id number] Date of Services: 10/09/2018 Referring Doctor: Alisha Stovall PA-C Chief Complaint: migraine headaches History of Present Illness: The patient presents to the Neurology Clinic today for follow u p. This is an established patient of Dr. Joel, but is not known to me. The patient has a history of migraine headaches for the past several years. The patient is currently taking Topamax 50 mg twice daily and propranolol 40 mg twice daily for headache p rophylaxis. The patient did have gastric bypass surgery at the beginning of September and was of f of all of her medications for several weeks. Because of this, she did have a flare in her headache pain. However, she has been back on her medication for little over a week and has noticed significant improvement since that time. The patient reports that her headaches al most always start over the left side of her face. She describes the pain as throbbing or po unding in nature. The pain will radiate to her left ear into the top of her head. She does have associated blurred vision, hearing loss, nausea, vomiting, photophobia and phonophobia . The patient reports that she is now experiencing migraine headaches approximately 2 3 t imes per week. She reports that this has improved from 4 5 times per week prior to restar ting her medications. The patient did have an MRI of the brain in August 2018 which showed no acute intracranial process. 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 She also had an EEG done in August 2018 which was within normal limits. The patient also has a history of obstructive sleep apnea and usually uses a CPAP. She has been off of her CPAP recently due to her gastric bypass surgery. When she is clear by her surgeons, she will resume use of her CPAP machine. 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 09/14/18 EEG: Normal awake and drowsy EEG Orders: - Topiramate; Take 50 mg PO QAM and 100 mg PO QHS. Dispense: 90 tablet; Refill: 3 Past Surgical History: Procedure Laterality Date ANTERIOR CRUCIATE LIGAMENT REPAIR Allergies Allergen Reactions Nicotiana Tabacum Shortness Of Breath Depakote [Valproic Acid] Other (See Comments) Suicidal Fish Oil Hives and Nausea And Vomiting Ibuprofen Hives and Nausea And Vomiting Imitrex [Sumatriptan] Nausea And Vomiting Increased headaches Oxycodone-Acetaminophen Nausea And Vomiting Percocet [Oxycodone] Nausea And Vomiting Seroquel [Quetiapine] Other (See Comments) Rage Doxycycline Rash Tessalon [Benzonatate] Rash Current Medications: ascorbic acid Beclomethasone Dipropionate (QVAR IN) Cholecalciferol ergocalciferol ferrous sulfate hydrOXYzine pamoate metFORMIN Norgestim-Eth Estrad Triphasic (TRI-PREVIFEM PO) nystatin ondansetron pantoprazole propranolol raNITIdine HCl (RANITIDINE 150 MAX STRENGTH PO) Vitamin B-2 topiramate ursodiol zolpidem Review of Symptoms: CONSTITUTIONAL: No weight loss, fever, chills, weakness or fatigue. HEENT: Eyes: No visual loss, blurred vision, double vision or yellow sclerae. Ears, Nose, Throat: No hearing loss, sneezing, congestion, runny nose or sore throat. SKIN: No rash or itching. CARDIOVASCULAR: No chest pain, chest pressure or chest discomfort. No palpitations or edema . RESPIRATORY: No shortness of breath, cough or sputum. GASTROINTESTINAL: No anorexia, nausea, vomiting or diarrhea. No abdominal pain or blood. GENITOURINARY: No burning on urination. NEUROLOGICAL: No dizziness, syncope, paralysis, ataxia, numbness or tingling in the extremi ties. No change in bowel or bladder control. + headaches MUSCULOSKELETAL: No muscle, back pain, joint pain or stiffness. PSYCHIATRIC: No depression or anxiety. Neurological Examination: Vitals: 10/09/18 0803 BP: 122/65 Pulse: 63 Resp: 16 PainSc: 3 Mental status: The patient is alert, attentive, and oriented. Speech is clear and fluent with good repetit ion, comprehension, and naming. Cranial nerves: CN II: Visual capone are full to confrontation. Fundoscopic exam is normal with sharp discs and no vascular changes. Pupils are 4 mm and briskly reactive to light with accomodation. CN III, IV, : Gaze in conjugate. No blurred or double vision. No visual field cuts. EOM intact. CN V: Facial sensation is intact. CN VII: Face is symmetric with normal eye closure and smile. CN VII: Hearing is normal to rubbing fingers CN IX, X: Palate elevates symmetrically. Phonation is normal. CN XI: Head turning and shoulder shrug are intact CN XII: Tongue is midline with normal movements and no atrophy. Motor: There is no pronator drift of out-stretched arms. Muscle bulk and tone are normal. Strength is 5/5 bilaterally. Reflexes: Reflexes are 2+ and symmetric at the biceps, triceps, knees, and ankles. Sensory: Light touch, pinprick, position sense, and vibration sense are intact in fingers and toes. Coordination: Rapid alternating movements and fine finger movements are intact. There is no dysmetria on zzexhe-vk-cuyr and ppko-memf-vzcj. There are no abnormal or extraneous movements. Romberg is absent. Gait/Stance: Posture is normal. Gait is steady with normal steps, base, arm swing, and turning. Heel and toe walking with mild difficulty. Clinical Impression: ICD-10-CM ICD-9-CM 1. Intractable migraine without aura and without status migrainosus G43.019 346.11 topirama te (TOPAMAX) 50 MG tablet Plan: Migraine headaches: Plan to increase dose of Topamax to 50 mg by mouth every morning and 1 00 mg by mouth daily at bedtime. If tolerated, patient to continue slow dose escalation. N o additional changes will be made at this time due to her recent surgery. Once the patient has had time to adequately heal and recover from her gastric bypass surgery we will consider additional changes as needed. The patient is in agreement with this plan. Ensure proper h eadache hygiene. This includes: ? Avoiding skipping meals or foods that may trigger a headache for you. ? Ensure adequate sleep (6-8 hours per night). Avoid changes in sleeping pattern such as o isauro sleeping, napping, or sleep deprivation. ? Manage stressors at home, work and with your family/friends that can contribute to headac he development. ? Avoid environmental triggers such as pollution, bright light, or extreme temperature cervantes ges. ? Ensure adequate hydration. ? Exercise regularly. For example, aerobic exercise for at least 30 minutes three times a w gakona will help reduce frequency or severity of migraine. ? Avoid alcohol and caffeine. Plan to follow-up with Dr. Joel 4/6 months. FLAKO Dewitt Electronically signed This note was transcribed using [...] | | | | | | [place], [place] | | | | | | [address] | | | | | | [phone] | | | | | | | | +--------+---------+ + + + | 11/25/ | Office | Cardiology | Katheryn Hammonds DO | | | 2019 | Visit | | [address] | | | | | | [place], [place] | | | | | | [address] | | | | | | | [...]
--- OUTSIDE RECORDS SUMMARY | ~2019-11-06 | XMS | Encounter Summary ---
Demographics + + + | Address | [address] | | | [place] [address] | + + + | Home Phone [...] Team Providers + +------+ + | Care Refrigeration Plant Operator Name | Role | Phone | + +------+ + | Alisha Stovall PA-C PCP | | + +------+ + Encounter Details +--------+--------+ + + + | Date | Type | Department | Care Team | Description | +--------+--------+ + + + | 01/10/ | Travel | | | | | 2019 | | | | | +--------+--------+ + [...] [address] | | | | | | [place], [place] | | | | | | [address] | | | | | | [phone] | | | | | | | | +--------+ + + + + | 11/17/ | Video/TeleH | Pain Management | Florencio Lockett, | | | 2019 | ealth-Sched | | PhD [address] | | | | uled | | [place], [place] | | | | | | [address] | | | | | | [phone] | | | | | | | | +--------+ + + + + | 12/01/ | Video/TeleH | Pain Management | Florencio Lockett, | | | 2019 | ealth-Sched | | PhD [address] | | | | uled | | [place], [place] | | | | | | [address] | | | | | | [phone] | | | | | | | | +--------+ + + + + | 01/06/ | Office | Plastic Surgery | Kuldip Harrell MD | | 2019 | Visit | | [address] | | | | | | [place], [place] | | | | | | [address] | | | | | | [phone] | | | | | | | | +--------+ + + + + documented as of this encounter Visit Diagnoses Not on filedocumented in this encounter"
--- OUTSIDE RECORDS SUMMARY | ~2019-11-06 | XMS | Encounter Summary ---
Demographics + + + | Address | [address] | | | [place] [address] | + + + | Home Phone | | + + + | Preferred Language | Unknown | + + + | Marital Status | | + + + | Denominational Affiliation | NRP | + + + | Race | White | + + + | Ethnic Group | Not or | + + + Author + + + | Author | [facility] | + + + | Organization | [facility] | + + + | Address | Unknown | + + + | Phone | Unavailable | + + + Support + + +---------+ + | Name | Relationship | Address | Phone | + + +---------+ + | Jeovanny Hernández | ECON | Unknown | | + + +---------+ + Care Team Providers + +------+ + | Care Client Relations Associate Name | Role | Phone | + +------+ + | Alisha Stovall PA-C | PCP | | + +------+ + Encounter Details +--------+ + + + + | Date | Type | Department | Care Team | Description | +--------+ + + + + | 01/12/ | MyChart | Digestive Health | Jody Watson ACNP | RE: Question | | 2019 | Encounter | Center at [facility] [address] | [address] | regarding [address] | | | | [address] [place] | [place], | AG, [employer] | | | | for [facility] and | [place] [address] | | | | | Healing, [address] | [phone] | | | | | [place], [place] | | | | | | [address] | | | | | | [phone] | | | +--------+ + + + [...] [address] | | | | | | [place], [place] | | | | | | [address] | | | | | | [phone] | | | | | | | | +--------+ + + + + | 11/17/ | Video/TeleH | Pain Management | Florencio Lockett, | | | 2019 | ealt-Sched | | PhD [address] | | | | uled | | [place], [place] | | | | | | [address] | | | | | | [phone] | | | | | | | | +--------+ + + + + | 12/01/ | Video/TeleH | Pain Management | Florencio Lockett, | | | 2019 | ealth-Sched | | PhD [address] | | | | uled | | [place], [place] | | | | | | [address] | | | | | | [phone] | | | | | | | | +--------+ + + + + | 01/06/ | Office | Plastic Surgery | Kuldip Harrell MD | | | 2019 | Visit | | [address] | | | | | | [place], [place] | | | | | | [address] | | | | | | [phone] | | | | | | | | +--------+ + + + + documented as of this encounter Visit Diagnoses Not on filedocumented in this encounter"
--- OUTSIDE RECORDS SUMMARY | ~2019-11-06 | XMS | Encounter Summary ---
Demographics + + + | Address | [address] | | | [place] [address] | + + + | Home Phone | | + + + | Preferred Language | Unknown | + + + | Marital Status | | + + + | Faith Affiliation | NRP | + + + | Race | White | + + + | Ethnic Group | Not or | + + + Author + + + | Author | [facility] | + + + | Organization | [facility] | + + + | Address | Unknown | + + + | Phone | Unavailable | + + + Support + + +---------+ + | Name | Relationship | Address | Phone | + + +---------+ + | Jeovanny Hernández | ECON | Unknown | | + + +---------+ + Care Team Providers + +------+ + | Care Slackman Name | Role | Phone | + [...] | | 2020 | | Center at [facility] [address] | MD [address] | management) | | | | [address] | [place], [place] | | | | | for Health and | [address] | | | | | [facility] 2 | [phone] | | | | | [place], [place] | | | | | | [address] | | | | | | [phone] | | | +--------+ + + + [...] [address] | | | | | | [place], [place] | | | | | | [address] | | | | | | [phone] | | | | | | | | +--------+ + + + + | 11/17/ | Video/TeleH | Pain Management | Florencio Lockett, | | | 2019 | ealth-Sched | | PhD [address] | | | | uled | | [place], [place] | | | | | | [address] | | | | | | [phone] | | | | | | | | +--------+ + + + + | 12/01/ | Video/TeleH | Pain Management | Florencio Lockett, | | | 2019 | ealth-Sched | | PhD [address] | | | | uled | | [place], [place] | | | | | | [address] | | | | | | [phone] | | | | | | | | +--------+ + + + + | 01/06/ | Office | Plastic Surgery | Kuldip Harrell MD | | | 2019 | Visit | | [address] | | | | | | [place], [place] | | | | | | [address] | | | | | | [phone] | | | | | | | [...]
--- OUTSIDE RECORDS SUMMARY | ~2019-11-06 | XMS | Encounter Summary ---
Demographics + + + | Address | [address] | | | [place] [address] | + + + | Home Phone [...] Team Providers + +------+ + | Care Color Strainer Name | Role | Phone | + +------+ + | Alisha Stovall PA-C | PCP | | + +------+ + Reason for Visit + + + | Reason | Comments | + + + | Postoperative visit | | + + + Encounter Details +--------+---------+ + + + | Date | Type | Department | Care Team | Description | +--------+---------+ + + + | 06/14/ | Office | Digestive Health | Kenan Norton, | S/P gastric bypass | | 2020 | Visit | Center at [facility] [address] | MD [address] | (Primary Dx); S/P | | | | [address] | [facility], [place] | gastrostomy tube (G | | | | for Health and | [id number] | tube) placement, | | | | Healing, Building [address] | | follow-up exam; | | | | [facility] [place] | | Acute post-operative | | | | [address] | | pain; Nausea and | | | | | | vomiting, | | | | | | intractability of | | | | | | vomiting not | | | | | | specified, | | | | | | unspecified vomiting | | | | | | type; Poor | | | | | | nutrition | +--------+---------+ + + + Social History [...] as of this encounter Progress Notes Kenan Notron MD - 06/14/2019 8:30 AM PSTFormatting of this note might be different fr om the original. BARIATRIC SURGERY POSTOP FOLLOW UP DATE OF VISIT: 06/14/19 REASON FOR VISIT: Postop check. DATE OF SURGERY: 05/30/2019 HISTORY: Maria De Jesus Danielle Anna is a(n) 28 y.o. female with history of Past Medical History: Diagnosis Date Asthma Fatty liver GERD (gastroesophageal reflux disease) HTN (hypertension) 2017 LVH (left ventricular hypertrophy) Pericarditis Plantar fasciitis Scoliosis Shortness of breath Sleep apnea Type 2 diabetes mellitus (HCC) Here for postop check s/p Laparoscopic assisted gastrostomy tube placement in gastric remn ant INTERVAL HISTORY: Maria De Jesus presents today for follow-up. She reports significant pain at the gastrostomy tube site, doesn't feel that her pain is ad equately controlled, she doesn't think it is improving or relenting much at all She was treated for an infection at the tube site after being evaluated in the local ER, sh e took most of the ABx She is tolerating tube feeds and doesn't seem to have much issue with this, only compliant is that she hasn't had contact with the tube feeding supplier She remains constipated, she started the Linzess recommended by Dr. Schneider she noticed sli ght improvement She is taking some po, only small amounts, still with occasional vomiting Nausea persists - helps to have scopolamine patch and compazine She is only taking vitamins 2X/day, and we discussed changing that to taking two vitamins 2 X/day - because she is having trouble remembering to take them all the time VITAL SIGNS: BP 118/65 (BP Location: Left upper arm, Patient Position: Sitting) | Pulse 63 | Temp 36.6 C (97.9 F) (Oral) | Resp 14 | Ht 1.803 m (5' 11") | Wt 111.8 kg (246 lb 6.4 oz) | S pO2 100% | BMI 34.37 kg/m | BSA 2.37 m Exam WNWD, NAD, AAOx3, depressed affect, tearful SURGICAL SITE: G-tube site is clean and without evidence of infection, there is a small ar ea of macerated skin adjacent to the tube tract IMPRESSION: This is Maria De Jesus Anna, a 28 y.o. F who is s/p laparoscopic G-tube placement and EGD. She reports being treated for an infection at her g-tubve site and this has now resolved. She i s very much struggling with post-op pain and hasn't had relief since surgery, we will add fl exiril to see if this helps. She requests refills as well. -- Refills: compazine, Milk of mag, scopalamine -- Continue TF at goal, appears to be tolerating well -- Keep your appointment with Dr. Schneider -- Provided contact for local psychologist recommended by Dr. Lockett (Dr. [facility]) -- see PCP for ongoing management of chronic medications and medical problems. -- Return to Clinic in 2 months Kenan Norton MD Electronically signed on 06/14/2019 at 9:55 AM Kenan Norton MD. documented in this e ncounter Plan of Treatment +--------+ + + + + | Date | Type | Specialty | Care Team | Description | +--------+ + + + + | 11/13/ | Office | Gastroenterology | Cassidy Schneider, | | 2019 | Visit | | [address] | | | | | | [place], [place] | | | | | | [address] | | | | | | [phone] | | | | | | | | +--------+ + + + + | 11/17/ | Video/TeleH | Pain Management | Florencio Lockett, | | | 2019 | ealth-Sched | | PhD [address] | | | | uled | | [place], [place] | | | | | | [address] | | | | | | [phone] | | | | | | | | +--------+ + + + + | 12/01/ | Video/TeleH | Pain Management | Florencio Lockett, | | | 2019 | ealth-Sched | | PhD [address] | | | | uled | | [place], [place] | | | | | | [address] | | | | | | [phone] | | | | | | | | +--------+ + + + + | 01/06/ | Office | Plastic Surgery | Kuldip Harrell MD | | | 2019 | Visit | | [address] | | | | | | [place], [place] | | | | | | [address] | | | | | | [phone] | | | | | | | | +--------+ + + + + documented as of this encounter Visit Diagnoses + + | Diagnosis | + + | S/P gastric bypass - Primary Bariatric surgery status | + + | S/P gastrostomy tube (G tube) placement, follow-up exam Follow-up examination, | | following other surgery | + + | Acute post-operative pain | + + | Nausea and vomiting, intractability of vomiting not specified, unspecified vomiting | | type | + + | Poor nutrition Unspecified protein-calorie malnutrition | + + documented in this encounter
--- OUTSIDE RECORDS SUMMARY | ~2019-11-06 | XMS | Encounter Summary ---
Demographics + + + | Address | [address] | | | [place] [address] | + + + | Home Phone [...] + + + | Author | [facility] | + + + | Organization | [facility] | + + + | Address | Unknown | + + + | Phone | Unavailable | + + + Support + + +---------+ + | Name | Relationship | Address | Phone | + + +---------+ + | Jeovanny Hernández | ECON | Unknown | | + + +---------+ + Care Team Providers + +------+ + | Care Medical Record Librarian Name | Role | Phone | + +------+ + | Alisha Stovall PA-C | PCP | | + +------+ + Encounter Details +--------+ + + + + | Date | Type | Department | Care Team | Description | +--------+ + + + + | 12/28/ | Telephone | Digestive Health | Kenan Norton, | | | 2019 | | [place] [address] | [address] | | | | | [address] Mailcode: CH4S | [facility] [place] | | | | | [facility] | [address] | | | | | and [place], | [phone] | | | | | [facility] | | | | | | Floor [place], [place] | | | | | | [address] | | | | | | [phone] | | | +--------+ + + + [...] | | 2019 | Visit | | [address] | | | | | | [place], [place] | | | | | | [address] | | | | | | [phone] | | | | | | | | +--------+ + + + + | 11/17/ | Video/TeleH | Pain Management | Florencio Lockett, | | | 2019 | ealth-Sched | | PhD [address] | | | | uled | | [place], [place] | | | | | | [address] | | | | | | [phone] | | | | | | | | +--------+ + + + + | 12/01/ | Video/TeleH | Pain Management | Florencio Lockett G, | | | 2019 | ealth-Sched | | PhD [address] | | | | uled | | [place], [place] | | | | | | [address] | | | | | | [phone] | | | | | | | | +--------+ + + + + | 01/06/ | Office | Plastic Surgery | Kuldip Harrell MD | | | 2019 | Visit | | [address] | | | | | | [place], [place] | | | | | | [address] | | | | | | [phone] | | | | | | | | +--------+ + + + + documented as of this encounter Visit Diagnoses Not on filedocumented in this encounter"
--- OUTSIDE RECORDS SUMMARY | ~2019-11-06 | XMS | Encounter Summary ---
Demographics + + + | Address | [address] | | | [place] [address] | + + + | Home Phone [...] Team Providers + +------+ + | Care Hydraulic Press Tender Name | Role | Phone | + [...] | | | | | esophagitis | [place], [place] | floor | | | | | presence not | [address] | [place], [place] | | | | | specified | Phone: | [phone] | | | | | Procedures | [phone] | Phone: | | | | | CONSULT TO | Fax: | [phone] | | | | | GI PROCEDURE | [phone] | Fax: | | | | | UNIT: 24 HR | | [phone] | | | | | PH | [...] | | | | geal reflux | [facility] | [place] for | | | | | disease, | Rd | Health and | | | | | esophagitis | [place], [place] | Healing, | | | | | presence not | [address] | Building [address] | | | | | specified | Phone: | [place], [place] | | | | | Procedures | [phone] | [address] | | | | | CONSULT TO | Fax: | Phone: | | | | | GI PROCEDURE | [phone] | [phone] | | | | | UNIT: | | Fax: | | | | | ESOPHAGEAL | | [phone] | | | | | MANOMETRY | | | | | | | CONSULT TO | | | | | | | GI PROCEDURE | | | | | | | UNIT: | | | | | | | ESOPHAGEAL | | | | | | | MANOMETRY W | | | | | | | [address] [place] | | | | | | | ESOPHAGEAL | | | | | | | MOTILITY | | | | | | | STUDY | | | | | | | W/INTERP AND | | | | | | | REPORT [place] | | | | | | | G-ESOPH | | | | | | | REFLX TST | | | | | | | W/ELECTROD | | | +--------+--------+ + + + + Encounter Details +--------+ + + + + | Date | Type | Department | Care Team | Description | +--------+ + + + + | 11/23/ | Spreader Operator Automatic | Digestive Health | Petcu, Aura, ACNP | Gastroesophageal | | 2018 | | Center at [facility] [address] | [address] | reflux disease, | | | | [address] | [address] [place], | esophagitis presence | | | | for Health and | [place] [address] | not specified | | | | [facility] | [phone] | (Primary Dx) | | | | [place], [place] | | | | | | [address] | | | | | | [phone] | | | +--------+ + + + [...] [address] | | | | | | [place], [place] | | | | | | [address] | | | | | | [phone] | | | | | | | | +--------+ + + + + | 11/17/ | Video/TeleH | Pain Management | Florencio Lockett, | | | 2019 | ealth-Sched | | PhD [address] | | | | uled | | [place], [place] | | | | | | [address] | | | | | | [phone] | | | | | | | | +--------+ + + + + | 12/01/ | Video/TeleH | Pain Management | Florencio Lockett, | | | 2019 | ealth-Sched | | PhD [address] | | | | uled | | [place], [place] | | | | | | [address] | | | | | | [phone] | | | | | | | | +--------+ + + + + | 01/06/ | Office | Plastic Surgery | Kuldip Harrell MD | | | 2019 | Visit | | [address] | | | | | | [place], [place] | | | | | | [address] | | | | | | [phone] | | | | | | | | +--------+ + + + + documented as of this encounter Visit Diagnoses + + | Diagnosis | + + | Gastroesophageal reflux disease, esophagitis presence not specified - Primary | + + documented in this encounter"
--- OUTSIDE RECORDS SUMMARY | ~2019-11-06 | XMS | Encounter Summary ---
Demographics + + + | Address | [address] | | | [place] [address] | + + + | Home Phone | | + + + | Preferred Language | Unknown | + + + | Marital Status | | + + + | Nondenominational Affiliation | NRP | + + + [...] Team Providers + +------+ + | Care Leather Belt Shaper Name | Role | Phone | + +------+ + | Alisha Stovall PA-C | PCP | | + +------+ + Reason for Visit + + + | Reason | Comments | + + + | Refill Request | [email or web address] | + + + Encounter Details +--------+--------+ + + + | Date | Type | Department | Care Team | Description | +--------+--------+ + + + | 08/06/ | Refill | Digestive Health | Kenan Norton, | Refill Request | | 2020 | | [facility] at [facility] [address] | [address] | (mirtazapine) | | | | [address] | [place], [place] | | | | | for Health and | [address] | | | | | [facility] | | | | | | [place], [place] | | | | | | [address] | | | | | | | [...] | | 2019 | Visit | | [address] | | | | | | [place], [place] | | | | | | [address] | | | | | | [phone] | | | | | | | | +--------+ + + + + | 11/17/ | Video/TeleH | Pain Management | Florencio Lockett, | | | 2019 | ealth-Sched | | PhD [address] | | | | uled | | [place], [place] | | | | | | [address] | | | | | | [phone] | | | | | | | | +--------+ + + + + | 12/01/ | Video/TeleH | Pain Management | Florencio Lockett, | | | 2019 | ealth-Sched | | PhD [address] | | | | uled | | [place], [place] | | | | | | [address] | | | | | | [phone] | | | | | | | | +--------+ + + + + | 01/06/ | Office | Plastic Surgery | Kuldip Harrell MD | | | 2019 | Visit | | [address] | | | | | | [place], [place] | | | | | | [address] | | | | | | [phone] | | | | | | | [...]
--- OUTSIDE RECORDS SUMMARY | ~2019-11-06 | XMS | Encounter Summary ---
Demographics + + + | Address | [address] | | | [place] [address] | + + + | Home Phone | | + + + | Preferred Language | Unknown | + + + | Marital Status | | + + + | Christian Affiliation | Unknown | + + + | Race | Unknown | + + + | Ethnic Group | Unknown | + + + Author + + + | Author | [facility] | | | and [place] | + + + | Organization | [facility] | | | [...] [place], | | | | | [place] [address] | | + + + + + Care Team Providers + +------+ + | Care Math Professor Name | Role | Phone | [...] and without | [address], [place] | [address] | | | | | status | [place], | Phone: | | | | | migrainosus | [place] [address] | [phone] | | | | | Procedures | Phone: | Fax: | | | | | MRI Brain w | [phone] | [phone] | | | | | wo Contrast | Fax: | | | | | | | [phone] | | +--------+--------+ + + + + Reason for Visit + + + | Reason | Comments | + + + | Migraine | | + + + Evaluate & Treat (Routine) +--------+ + + + + + | Status | Reason | Specialty | Diagnoses / | Referred By | Referred To | | | | | Procedures | Contact | Contact | +--------+ + + + + + | Closed | Specialty | Neurology | Diagnoses | Wilman, | Marycruz, | | | Services | | Migraine | Alisha | Caity Morton, | | | Required | | without | [place], | [address] | | | | | aura, not | PA-C [address], | | | | | intractable, | [address] | [place] | | | | | with status | Ave | [place], [place] | | | | | migrainosus | [place], | [address] Phone: | | | | | | [place] | [phone] | | | | | | [address] | Fax: | | | | | | Phone: | [phone] | | | | | | [phone] | | | | | | | Fax: | | | | | | | [phone] | | +--------+ + + + + + Encounter Details +--------+---------+ + + + | Date | Type | Department | Care Team | Description | +--------+---------+ + + + | 08/23/ | Office | [place] [facility] | Caity Joel | Intractable migraine | | 2019 | Visit | [facility] | MD Praveen [address] | without aura and | | | | CLINIC [address] | [place] | without status | | | | [address], | [place] [address] | migrainosus | | | | [place] [address] | [phone] | | | | | [phone] | | | +--------+---------+ + + + [...] + + + | Blood Pressure | 139/81 | 08/23/2018 11:12 AM | | | | | PDT | | + + + + + | Pulse | 77 | 08/23/2018 11:12 AM | | | | | PDT | | + + + + + | Temperature | - | - | | + + + + + | Respiratory Rate | 16 | 08/23/2018 11:12 AM | | | | | PDT | | + + + + + | Oxygen Saturation | 98% | 08/23/2018 11:12 AM | | | | | PDT | | + + + + + | Inhaled Oxygen | - | - | | | Concentration | | | | + + + + + | Weight | 175.7 kg (387 lb 6.4 | 08/23/2018 11:12 AM | | | | oz) | PDT | | + + + + + | Height | 182.2 cm (5' 11.75") | 08/23/2018 11:12 AM | | | | | PDT | | + + + + + | Body Mass Index | 52.91 | 08/23/2018 11:12 AM | | | | | PDT | | + + + + + documented in this encounter Patient Instructions Patient Instructions Caity Joel MD - 08/23/2018 11:00 AM PDTFormatting of this no te might be different from the original. You have the following tests/procedures ordered.h At [facility] Radiology : Brain MRI with and without contrast EEG routine Medication Instructions: Increase Topamax to 50 mg twice a day *Any questions, please call Dr. Joel's office at Patient advised of their right to have diagnostic testing, health care treatment, and/or se rvices at a facility other than [facility]. Preventing Migraine Headaches: Triggers Red wine is a common migraine trigger. The first step in preventing migraines is to learn what triggers them. You may then be able to control your triggers to avoid or reduce the severity of your migraines. Know your triggers Be aware that you may have more thanone trigger, and that some triggers may work together . Common migraine triggers include: Food and nutrition. Skipping meals or not drinking enough water can trigger headaches. S o can certain foods, such as caffeine, chocolate, artificial sweeteners, monosodium glutamat e (MSG),aged cheese, or sausage. Alcohol. Red wine and other alcoholic beverages are common migraine triggers. Chemicals. Scents, cleaning products, gasoline, glue, perfume, and paint can be triggers . So can tobacco smoke, including secondhand smoke. Emotions. Stress can trigger headaches or make them worse once they start. Sleep disruption. Staying up late, sleeping late, and traveling across time zones can di srupt your sleep cycle, triggering headaches. Hormones. Many women notice that migraines tend tohappen at a certain point in their m enstrual cycle. control pills or hormone replacement therapy may also trigger migraine s. Environment and weather. Air travel, changes in altitude, air pressure changes, hot sun, or bright or flashing lights can be triggers. Medicine overuse. Frequent use of pain medicines for headache pain can also cause a head ache. This may also be called rebound headache. Control your triggers These are some of the things you can do to try to control triggers: Avoid triggers if you can. For example, stay clear of alcohol and foods that trigger you r headaches. Use unscented household products. Keep regular sleep habits. Manage stress to h elp control emotional triggers. Change your behavior at times when triggers can't be avoided. For example, make sure to get enough rest and drink plenty of water while you're traveling. Make sure to carry a hat, sunglasses, and your medicines. Be alert for migraine symptoms, so you can treat a migraine early if it happens. Date Last Reviewed: 08/22/2017 [employer]. [address] [place] [address]. All righ ts reserved. This information is not intended as a substitute for professional medical care. Always follow your healthcare professional's instructions. Preventing Migraine Headaches: Medicines and Lifestyle Changes [...] Nonsteroidal anti-inflammatory drugs (such as ibuprofen, available [id number]) ? Beta-blockers ? Anticonvulsants ? Tricyclic antidepressants [...] of caffeine you consume. Date Last Reviewed: 08/22/2017 [employer]. [address] [place] [address]. All righ ts reserved. This information is not intended as a substitute for professional medical care. Always follow your healthcare professional's instructions. documented in this encounter Progress Notes Caity Joel MD - 08/23/2018 11:00 AM PDT Patient: Maria De Jesus Anna Medical Record: [id number] Date of Services: 08/23/2018 Referring Doctor: Alisha Stovall PA-C Chief Complaint Patient presents with Migraine HISTORY OF PRESENT ILLNESS: The patient is a 27-year-old female who is referred to me because of migraine headaches. She has had headaches for several years. Until recently, she was under the care of a neuro logist at [facility]. However, after not showing up for a few appointments, she was discharged from the practice. She describes the headaches as always starting over the left side of her face. She feels a s if her eye was being pushed all. The pain would then radiate her ear and to the top of he r head. Her headaches are pounding in nature and accompanied by blurred vision, hearing los s, nausea, vomiting, photophobia, and phonophobia. She has them 4-5 times a week. They would last for hours. She did try Imitrex in the past but had an adverse reaction to it. It made her headaches worse. At some point, she was also taking 15 tablets of Tylenol a day. She was asked to cut down on it and she is now down to 2 a day. For prophylaxis, she is currently on Topamax 25 mg twice a day and propranolol 40 mg twice a day. She did have an MRI 2 years ago which was reportedly normal. She also has MEHUL and started using CPAP recently. In addition, she is preparing for gastric bypass surgery. REVIEW OF SYSTEMS: General: Positive for weight [...] Anxiety Depression Diabetes mellitus (HCC) Hyperlipidemia Hypertension MEHUL (obstructive sleep apnea) PCOS (polycystic ovarian syndrome) Polycystic ovarian disease PAST SURGICAL HISTORY: Past Surgical History: Procedure Laterality Date ANTERIOR CRUCIATE LIGAMENT REPAIR MEDICATIONS: Current Outpatient Medications Medication Sig Dispense Refill acetaminophen (TYLENOL) 325 mg tablet Take 325 mg by mouth every 6 hours as needed. ascorbic acid (VITAMIN C) 500 mg tablet Take 500 mg by mouth 3 times daily. Beclomethasone Dipropionate (QVAR IN) Inhale into the lungs. Cholecalciferol (VITAMIN D-3) 2000 units CAPS Take 2,000 Units by mouth Daily. ergocalciferol (VITAMIN D-2) 50,000 units capsule Take 50,000 Units by mouth every 7 da ys. metFORMIN (GLUCOPHAGE) 1000 MG tablet Take 1,000 mg by mouth 2 times daily (with breakf ast & dinner). Norgestim-Eth Estrad Triphasic (TRI-PREVIFEM PO) Take by mouth. nystatin (MYCOSTATIN) 346896 UNIT/GM powder ondansetron (ZOFRAN ODT) 4 mg disintegrating tablet Take 4 mg by mouth as needed. pantoprazole (PROTONIX) 40 mg tablet Take 40 mg by mouth every morning (before breakfas t). propranolol (INDERAL) 40 mg tablet Take 40 mg by mouth 2 times daily. raNITIdine HCl (RANITIDINE 150 MAX STRENGTH PO) Take 150 mg by mouth 2 times daily. Riboflavin (VITAMIN B-2) 100 MG TABS Take 100 mg by mouth Daily. topiramate (TOPAMAX) 50 MG tablet Take 1 tablet by mouth 2 times daily. 60 tablet 2 ursodiol (ACTIGALL) 300 mg capsule Take by mouth. zolpidem (AMBIEN) 10 mg tablet Take 10 mg by mouth as needed. No current facility-administered medications for this visit. ALLERGIES: Allergies Allergen Reactions Depakote [Valproic Acid] Other (See Comments) Suicidal Fish Oil Hives and Nausea And Vomiting Ibuprofen Hives and Nausea And Vomiting Imitrex [Sumatriptan] Nausea And Vomiting Increased headaches Percocet [Oxycodone] Nausea And Vomiting Seroquel [Quetiapine] [...] Father Migraines Paternal Grandmother PHYSICAL EXAMINATION: BP 139/81 | Pulse 77 | Resp 16 | Ht 1.822 m (5' 11.75") | Wt (!) 175.7 kg (387 lb 6.4 o z) | SpO2 98% | BMI 52.91 kg/m Neck is supple. Lungs are clear. Heart sounds are within normal limits. Abdomen is soft and non-tender, There is no extremity cyanosis or edema. NEUROLOGIC EXAMINATION: MENTAL STATUS: The patient is awake, alert, and oriented to time, place, and person. [facility] flu[facility]. Memory, attention, comprehension, and general [...] CEREBELLAR EXAMINATION: There is no dysmetria on zspisy-qn-apmn test. IMPRESSION: 1. Intractable migraine without aura and without status migrainosus - EEG awake or drowsy routine; Future - MRI Brain w wo Contrast; Future PLAN AND RECOMMENDATIONS: We went over the possible triggers for her headache. At this point, we can only identify s leep deprivation. As mentioned above, she was diagnosed with MEHUL recently and she was stron gly encouraged to use her CPAP device on a nightly basis as this may improve her headaches. It has been 2 years since her last MRI and her headaches continue to worsen. Thus, I am or dering a brain MRI with and without contrast as well as an EEG. I will now increase her Topamax dose to 50 mg twice a day. She will remain on her current propranolol dose. She was encouraged to continue tapering herself off Tylenol. If she does not respond to maximum doses of Topamax, I will consider zonisamide, verapamil, Botox, or a Mobic. We will continue to follow her. She will come back to see us in 6-8 weeks. At that time, she will see Matt ARRIOLA. More than 50% of this 45 minute visit was spent on patient education and discussing her radames n of care. Thank you for the opportunity to participate in the care of this patient. Caity Joel MD08/23/201811:38 Electronically signed This note was transcribed using [...] | 2019 | Visit | | [address] | | | | | | [place], [place] | | | | | | [address] | | | | | | [phone] | | | | | | | | +--------+---------+ + + + | 11/25/ | Office | Cardiology | Hammonds Katheryn, DO | | | 2020 | Visit | | [address] | | | | | | [place] | | | | | | [address] | | | | | | | | +--------+---------+ + + + documented as of this encounter Results EEG awake or drowsy routine (09/14/2018 3:10 PM PDT) + + + | Narrative | Performed At | + + + | Caity Joel MD 09/14/2018 15:11 Name:Maria De Jesus Villafuerte John | John Shoshana :1990 DATE OF SERVICE: 09/14/2018 | [...] Electronically signed | | + + + MRI Brain w wo Contrast (09/14/2018 3:08 [...] + + | Camilo, Rad Results In 09/14/2018 3:22 PM PDT EXAMINATION:MRI BRAIN W [...] | | turcica.4. Hyperostosis frontalis.Dictated by: Peter Kaiserectronically Signed by: | | Peter Brock on 09/14/2018 3:18 PM | |The murdock-white matter interface is intact. [...]
--- OUTSIDE RECORDS SUMMARY | ~2019-11-06 | XMS | Encounter Summary ---
Demographics + + + | Address | [address] | | | [place] [address] | + + + | Home Phone [...] + + + | Author | [facility] | + + + | Organization | [facility] | + + + | Address | Unknown | + + + | Phone | Unavailable | + + + Support + + +---------+ + | Name | Relationship | Address | Phone | + + +---------+ + | Jeovanny Hernández | ECON | Unknown | | + + +---------+ + Care Team Providers + +------+ + | Care Technical Research Scientist Name | Role | Phone | + +------+ + | Alisha Stovall PA-C | PCP | | + +------+ + Encounter Details +--------+--------+ + + + | Date | Type | Department | Care Team | Description | +--------+--------+ + + + | 10/15/ | Intake | Transfer Center | | N/A | | 2019 | | [address] | | | | | | [place], | | | | | | [place] [address] | | | +--------+--------+ + + + [...] [address] | | | | | | [place], [place] | | | | | | [address] | | | | | | [phone] | | | | | | | | +--------+ + + + + | 11/17/ | Video/TeleH | Pain Management | Florencio Lockett, | | | 2019 | ealth-Sched | | PhD [address] | | | | uled | | [place], [place] | | | | | | [address] | | | | | | [phone] | | | | | | | | +--------+ + + + + | 12/01/ | Video/TeleH | Pain Management | Florencio Lockett, | | | 2019 | ealth-Sched | | PhD [address] | | | | uled | | [place], [place] | | | | | | [address] | | | | | | [phone] | | | | | | | | +--------+ + + + + | 01/06/ | Office | Plastic Surgery | Kuldip Harrell MD | | | 2020 | Visit | | [address] | | | | | | [place], [place] | | | | | | [address] | | | | | | [phone] | | | | | | | | +--------+ + + + + documented as of this encounter Visit Diagnoses Not on filedocumented in this encounter"
--- OUTSIDE RECORDS SUMMARY | ~2019-11-06 | XMS | Encounter Summary ---
Demographics + + + | Address | [address] | | | [place] [address] | + + + | Home Phone [...] Team Providers + +------+ + | Care Gang Supervisor Name | Role | Phone | + +------+ + | Alisha Stovall PA-C | PCP | | + +------+ + Encounter Details +--------+ + + + + | Date | Type | Department | Care Team | Description | +--------+ + + + + | 06/30/ | Abstract | Digestive Health | Kenan Norton, | | | 2019 | | Center at [facility] [address] | MD [address] | | | | | [address] [place] | [facility] [place] | | | | | for Health and | [address] | | | | | [place], [address] | [phone] | | | | | [place], [place] | | | | | | [address] | | | | | | [phone] | | | +--------+ + + + [...] [address] | | | | | | [place], [place] | | | | | | [address] | | | | | | [phone] | | | | | | | | +--------+ + + + + | 11/17/ | Video/TeleH | Pain Management | Florencio Lockett, | | | 2019 | ealth-Sched | | PhD [address] | | | | uled | | [place], [place] | | | | | | [address] | | | | | | [phone] | | | | | | | | +--------+ + + + + | 12/01/ | Video/TeleH | Pain Management | Florencio Lockett, | | | 2019 | ealth-Sched | | PhD [address] | | | | uled | | [place], [place] | | | | | | [address] | | | | | | [phone] | | | | | | | | +--------+ + + + + | 01/06/ | Office | Plastic Surgery | Kuldip Harrell MD | | | 2019 | Visit | | [address] | | | | | | [place], [place] | | | | | | [address] | | | | | | [phone] | | | | | | | | +--------+ + + + + documented as of this encounter Visit Diagnoses Not on filedocumented in this encounter"
--- OUTSIDE RECORDS SUMMARY | ~2019-11-06 | XMS | Encounter Summary ---
Demographics + + + | Address | [address] | | | [place] [address] | + + + | Home Phone | | + + + | Preferred Language | Unknown | + + + | Marital Status | | + + + | Pentecostal Affiliation | Unknown | + + + | Race | Unknown | + + + | Ethnic Group | Unknown | + + + Author + + + | Author | [facility] | | | and [place] | + + + | Organization | [facility] | | | [...] [place], | | | | | [place] [address] | | + + + + + Care Team Providers + +------+ + | Care Hand Mexican Food Maker Name | Role | Phone | + [...] and without | [address] | [address] | | | | | status | [place], | Phone: | | | | | [place] | [place] [address] | [phone] | | | | | Procedures | Phone: | Fax: | | | | | MRI Brain w | [phone] | [phone] | | | | | wo Contrast | Fax: | | | | | | | [phone] | | +--------+--------+ + + + + [...] and without | [address], [address] | [address] | | | | | status | [place], | Phone: | | | | | migrainosus | [place] [address] | [phone] | | | | | Procedures | Phone: | Fax: | | | | | MRI Brain w | [phone] | [phone] | | | | | wo Contrast | Fax: | | | | | | | [phone] | | +--------+--------+ + + + + [...] | | [place], [place] | [place] [address] | migrainosus | | | | [address] | [phone] | | | | | [phone] | | | +--------+ + + + [...] 0 | 07/28/19 | | | (MYCOSTATIN) [id number] | | | | 19 | 9 [...] [place] | | | | | | [address] | | | | | | [phone] | | | | | | | | +--------+---------+ + + + | 11/25/ | Office | Cardiology | Katheryn Hammonds DO | | | 2020 | Visit | | [address] | | | | | | [place] [facility] | | | | | | [address] | | | | | | | [...]
--- OUTSIDE RECORDS SUMMARY | ~2019-11-06 | XMS | Encounter Summary ---
Demographics + + + | Address | [address] | | | [place] [address] | + + + | Home Phone [...] Team Providers + +------+ + | Care Precinct Police Sergeant Name | Role | Phone | + +------+ + | Alisha Stovall PA-C | PCP | | + +------+ + Encounter Details +--------+ + + + + | Date | Type | Department | Care Team | Description | +--------+ + + + + | 09/11/ | Abstract | Digestive Health | Kenan Norton, | | | 2019 | | Center at [facility] [address] | MD [address] | | | | | [address] [place] | [facility] [place] | | | | | for Health and | [address] | | | | | [place], [address] | [phone] | | | | | [place], [place] | | | | | | [address] | | | | | | [phone] | | | +--------+ + + + [...] [address] | | | | | | [place], [place] | | | | | | [address] | | | | | | [phone] | | | | | | | | +--------+ + + + + | 11/17/ | Video/TeleH | Pain Management | Florencio Lockett, | | | 2019 | ealth-Sched | | PhD [address] | | | | uled | | [place], [place] | | | | | | [address] | | | | | | [phone] | | | | | | | | +--------+ + + + + | 12/01/ | Video/TeleH | Pain Management | Florencio Lockett, | | | 2019 | ealth-Sched | | PhD [address] | | | | uled | | [place], [place] | | | | | | [address] | | | | | | [phone] | | | | | | | | +--------+ + + + + | 01/06/ | Office | Plastic Surgery | Kuldip Harrell MD | | | 2019 | Visit | | [address] | | | | | | [place], [place] | | | | | | [address] | | | | | | [phone] | | | | | | | | +--------+ + + + + documented as of this encounter Visit Diagnoses Not on filedocumented in this encounter"
--- OUTSIDE RECORDS SUMMARY | ~2019-11-06 | XMS | Encounter Summary ---
Demographics + + + | Address | [address] | | | [place] [address] | + + + | Home Phone [...] Team Providers + +------+ + | Care Mold Sander Name | Role | Phone | + [...] at | | | | | | [facility] | | | | | | [address] | | | | | | [facility] | | | | | | and Healing, | | | | | | [address] | | | | | | [place], [place] | | | | | | [address] | | | | | | [phone] | | | +--------+ + + + [...] surgery recovery. Surgery check-in location: Admitting - [facility] Surgery Check in Time: you will receive a call 1-3 business days before your surgery confi rming your exact arrival/check-in time for your surgery day. We know that planning for surg silvia can be stressful and involve a lot of family/friend/transportation coordination as well as hotel arrangements. The [facility] does not have access to check in [facility], and we encourage you to contact your [...] TABLET MEDICATION HELP MIRTAZAPINE 15 MG TABLET PAOG-DIQT-OZJYE (PABA) ORAL PROMETHAZINE 25 MG TABLET SIMETHICONE [...] ch as Uber/Lyft), or public transportation. An Uber/Lyft/auto transport driver does not count as the responsible [...] is after office hours, call the [facility] pocket grinder operator at [phone] and ask them to page him or h erNayana documented in this encounter Plan of Treatment +--------+ + + + + | Date | Type | Specialty | Care Team | Description | +--------+ + + + + | 11/13/ | Office | Gastroenterology | Cassidy Schneider, | | 2019 | Visit | | [address] | | | | | | [place], [place] | | | | | | [address] | | | | | | [phone] | | | | | | | | +--------+ + + + + | 11/17/ | Video/TeleH | Pain Management | Florencio Lockett, | | | 2019 | ealth-Sched | | PhD [address] | | | | uled | | [place], [place] | | | | | | [address] | | | | | | [phone] | | | | | | | | +--------+ + + + + | 12/01/ | Video/TeleH | Pain Management | Florencio Lockett, | | | 2019 | ealth-Sched | | PhD [address] | | | | uled | | [place], [place] | | | | | | [address] | | | | | | [phone] | | | | | | | | +--------+ + + + + | 01/06/ | Office | Plastic Surgery | Kuldip Harrell MD | | | 2019 | Visit | | [address] | | | | | | [place], [place] | | | | | | [address] | | | | | | [phone] | | | | | | | | +--------+ + + + + documented as of this encounter Visit Diagnoses Not on filedocumented in this encounter
--- OUTSIDE RECORDS SUMMARY | ~2019-11-06 | XMS | Encounter Summary ---
Demographics + + + | Address | [address] | | | [place] [address] | + + + | Home Phone | | + + + | Preferred Language | Unknown | + + + | Marital Status | | + + + | Anglican Affiliation | NRP | + + + | Race | White | + + + | Ethnic Group | Not or | + + + Author + + + | Author | [facility] | + + + | Organization | [facility] | + + + | Address | Unknown | + + + | Phone | Unavailable | + + + Support + + +---------+ + | Name | Relationship | Address | Phone | + + +---------+ + | Jeovanny Hernández | ECON | Unknown | | + + +---------+ + Care Team Providers + +------+ + | Care Personnel Psychologist Name | Role | Phone | + [...] | | [address] | [place], [place] | Nausea; Epigastric | | | | for Health and | [address] | pain; Aftercare | | | | Healing, [address] | [phone] | following surgery | | | | [place], [place] | | | | | | [address] | | | | | | [phone] | | | +--------+---------+ + + + [...] AM PDTPlease visit with our Re gistered Global Professional (RD) for instructions about your Bariatric diet, assistance with calorie counts, tips and tricks for working with your diet restrictions, and recipes after bariatric surgery. Daily yogurt; even just 1 tablespoon twice a day will provide enough probiotics to optimize digestion. Try to use a high-quality, probiotic-dense yogurt (eg Shoshana's, [place], Lif eway Kefir, Supervisor Alum Plant DarynThe Other Guys Irish Yogurt). Remember to chew your food well, [...] to the healing stomach. There are also lobsterman complications of poor wound healing and gastric [...] months -- Continue routine follow up with [facility] and nutrition team -- see PCP for [...] Vitor Kern - 10/27/19 8:30 AM PDT [facility] Department of Surgery Division of Red Surgery [...] continued she went to an ED in [facility] where she was worked up for [...] she has only been able to tolerate urdu and drinkable y ogurts. She states it [...] months -- Continue routine follow up with [facility] and nutrition team -- see PCP for [...] plan of care. Vitor Lyons, MS3 [facility] [address] Mailcode: [place] [address] documented in this encoun ter Plan of Treatment +--------+ + + + + | Date | Type | Specialty | Care Team | Description | +--------+ + + + + | 11/13/ | Office | Gastroenterology | Cassidy Schneider, | | | 2019 | Visit | | [address] | | | | | | [place], [place] | | | | | | [address] | | | | | | [phone] | | | | | | | | +--------+ + + + + | 11/17/ | Video/TeleH | Pain Management | Florencio Lockett, | | | 2019 | ealth-Sched | | PhD [address] | | | | uled | | [place], [place] | | | | | | [address] | | | | | | [phone] | | | | | | | | +--------+ + + + + | 12/01/ | Video/TeleH | Pain Management | Florencio Lockett, | | | 2019 | ealth-Sched | | PhD [address] | | | | uled | | [place], [place] | | | | | | [address] | | | | | | [phone] | | | | | | | | +--------+ + + + + | 01/06/ | Office | Plastic Surgery | Kuldip Harrell MD | | | 2019 | Visit | | [address] | | | | | | [place], [place] | | | | | | [address] | | | | | | [phone] | | | | | | | [...] [facility] | [address] | [place] [address] | | | SERVICES, CORE | PARK [...] B: | | | | | | [email or web address].[employer]/CSPerformed | | | | | | by [employer],[address] | | | | | | [address], [facility],[place] | | | | | | [address] | | | | | | [phone].Publicate. | | | | | | SecureOne Data SolutionsJosué MD, | | | | | | [...] [facility] | [address] | [place], [place] | | | [facility] | | [address] | | + + + + + [...] | | | LABORATORY | | | P[place]ST[place]IAN | | | SERVICES, | | | [...] MDRD equation recommended by the National | [facility] | | Kidney Disease Education Program. [...] | + + + + + | [facility] | [address] | [place] [address] | | | SERVICES, CORE | SAMMI [...]
--- OUTSIDE RECORDS SUMMARY | ~2019-11-06 | XMS | Encounter Summary ---
Demographics + + + | Address | [address] | | | [place] [address] | + + + | Home Phone [...] + + + | Author | [facility] | + + + | Organization | [facility] | + + + | Address | Unknown | + + + | Phone | Unavailable | + + + Support + + +---------+ + | Name | Relationship | Address | Phone | + + +---------+ + | Jevoanny Hernández | ECON | Unknown | | + + +---------+ + Care Team Providers + +------+ + | Care Cleaner And Polisher Name | Role | Phone | + +------+ + | Alisha Stovall PA-C | PCP | | + +------+ + Encounter Details +--------+ + + + + | Date | Type | Department | Care Team | Description | +--------+ + + + + | 02/23/ | Abstract | Cardiology | Sarah Barba | | | 2018 | | Preventive at [facility] | SHANICE Villafuerte [address] | | | | | [address] | [address] [place], | | | | | [place] for [facility] | [place] [address] | | | | | and [place], | [phone] | | | | | [address] | | | | | | [place], [place] | | | | | | [address] | | | | | | [phone] | | | +--------+ + + + [...] [address] | | | | | | [place], [place] | | | | | | [address] | | | | | | [phone] | | | | | | | | +--------+ + + + + | 11/17/ | Video/TeleH | Pain Management | Florencio Lockett, | | | 2019 | ealth-Sched | | PhD [address] | | | | uled | | [place], [place] | | | | | | [address] | | | | | | [phone] | | | | | | | | +--------+ + + + + | 12/01/ | Video/TeleH | Pain Management | Florencio Lockett G, | | | 2019 | ealth-Sched | | PhD [address] | | | | uled | | [place], [place] | | | | | | [address] | | | | | | [phone] | | | | | | | | +--------+ + + + + | 01/06/ | Office | Plastic Surgery | Kuldip Harrell MD | | | 2019 | Visit | | [address] | | | | | | [place], [place] | | | | | | [address] | | | | | | [phone] | | | | | | | | +--------+ + + + + documented as of this encounter Visit Diagnoses Not on filedocumented in this encounter"
--- OUTSIDE RECORDS SUMMARY | ~2019-11-06 | XMS | Encounter Summary ---
Demographics + + + | Address | [address] | | | [place] [address] | + + + | Home Phone | | + + + | Preferred Language | Unknown | + + + | Marital Status | | + + + | Anabaptist Affiliation | Unknown | + + + | Race | Unknown | + + + | Ethnic Group | Unknown | + + + Author + + + | Author | [facility] | | | and [place] | + + + | Organization | [facility] | | [...] [place], | | | | | [place] [address] | | + + + + + Care Team Providers + +------+ + | Care Churn Driller Name | Role | Phone | + +------+ + | Alisha Stovall | PCP | | | PA-C | | | + +------+ + Reason for Visit +--------+ + | Reason | Comments | +--------+ + | Other | end of study | +--------+ + Encounter Details +--------+ + + + + | Date | Type | Department | Care Team | Description | +--------+ + + + + | 07/07/ | Documentati | [facility] | Rosibel Peters, | Other (end of study) | | 2020 | on | [facility] [place] | Technologist | | | | | [address] | | | | | | [place], [place] | | | | | | [address] | | | | | | [phone] | | | +--------+ + + + [...] documented as of this encounter Progress Notes Rosibel Peters, Technologist - 07/08/2019 11:59 PM PDT Cardiac Event Monitor Date of Event Monitor: 07/08/19 Referring Physician: No Patient:Maria De Jesus Hernández : 1990 Age: 28 y.o. female INDICATIONS: Other cardiac arrhythmias, Bradycardia unspecified Procedure: Continuous ambulatory ECG for the duration [...] of which c orrelated with sinus rhythm. Impressions: 1: Sinus rhythm, as described above. 2: No clinically significant arrhythmias were detected 3: No AV conduction abnormality detected. 4: There were several symptoms reported including chest discomfort, racing heart, shortness of breath, dizziness, headache, palpitations, other symptom, fatigue all of which correlate d with sinus rhythm. Recomendations: Clinical correlation suggested. Katheryn Hammonds DO documented in this enco unter Plan of Treatment +--------+---------+ + + + | Date | Type | Specialty | Care Team | Description | +--------+---------+ + + + | 11/18/ | Office | Neurology | Shirley Murdock NP | | 2019 | Visit | | [address] [place] | | | | | | [place], [place] | | | | | | [address] | | | | | | [phone] | | | | | | | | +--------+---------+ + + + | 11/25/ | Office | Cardiology | Katheryn Hammonds DO | | | 2019 | Visit | | [address] | | | | | | [place] | | | | | | [address] | | | | | | | | +--------+---------+ + + + documented as of this encounter Visit Diagnoses Not on filedocumented in this encounter"
--- OUTSIDE RECORDS SUMMARY | ~2019-11-06 | XMS | Encounter Summary ---
Demographics + + + | Address | [address] | | | [place] [address] | + + + | Home Phone | | + + + | Preferred Language | Unknown | + + + | Marital Status | | + + + | Scientologist Affiliation | NRP | + + + [...] Team Providers + +------+ + | Care Application Services Manager Name | Role | Phone | [...] | +--------+ + + + + | 09/24/ | Hospital | [facility] [address] | Kenan Norton, | | | 2019 - | Encounter | [address] | [address] | | | | | [place], [place] | [place], [place] | | | 09/26/ | | [address] | [phone] | | | 2018 | | [phone] | [phone] | | | | | | | [...] + + + | Blood Pressure | 141/69 | 09/26/2018 8:29 AM | | | | | PDT | | + + + + + | Pulse | 84 | 09/26/2018 8:29 AM | | | | | PDT | | + + + + + | Temperature | 36.9 C (98.4 F) | 09/26/2018 8:29 AM | | | | | PDT | | + + + + + | Respiratory Rate | 16 | 09/26/2018 8:29 AM | | | | | PDT | | + + + + + | Oxygen Saturation | 95% | 09/26/2018 8:29 AM | | | | | PDT | | + + + + + | Inhaled Oxygen | - | - | | | Concentration | | | | + + + + + | Weight | 168.1 kg (370 lb 9.5 | 09/24/2018 11:00 AM | | | | oz) | PDT | | + + + + + | Height | 180.3 cm (5' 11") | 09/24/2018 11:00 AM | | | | | PDT | | + + + + + | Body Mass Index | 51.69 | 09/24/2018 11:00 AM | | | | | PDT [...] + documented as of this encounter Discharge Summaries Jody Watson ACNP - 09/26/2018 10:36 AM PDT [facility] RED SURGERY INPATIENT DISCHARGE SUMMARY Author: DIEGO Plascencia Attending Physician: Kenan Norton MD PCP: Alisha Monae PA-C Admission Date: 09/24/2018 Discharge Date: 26 Sep 2018 Diagnoses Patients Hospital Problem List: Active Hospital Problems 1) *Morbid obesity (HCC) 2) Diabetes mellitus treated with oral medication (HCC) 3) Anxiety 4) Acute post-operative pain Procedure Laparoscopic noreen en Y gastric bypass Brief Hospital Course Maria De Jesus Anna is a 27 y.o. woman with a history of morbid obesity and other associated c omorbidities. She was admitted on 09/24/2018 for the listed procedure. She tolerated the proce dure well with no operative complications. She recovered briefly in the PACU before being tr ansferred to the goldsmith for observation. Postoperatively, she was placed on a bariatric clear liquid diet. Overnight she was able to tolerate bariatric clear liquids well. On postoperat cristopher day 2, she was tolerating bariatric clear liquids well, thus she was advanced to a baria tric full liquid diets. Our bariatric dietitian was consulted and they discussed her postope rative diet instructions. On day of discharge, her vital signs were stable, tolerating baria tric full liquid diet, pain was well controlled with oral pain medications and was ambulatin g and voiding without difficulty. Thus, she was deemed stable for discharge. Discharge instr uctions have been reviewed with the patient and all questions have been answered. We will nuñez ve her follow up with our Bariatric Nurse Practitioner in 1 week and her surgeon, Dr. Kenan Norton MD in approximately 4 weeks. Of note, she reports severe GERD prior to surgery for which she was taking both PPI and H2B . RYGB is the surgery that will help relieve GERD, thus we would like for her to wean off, b ut currently she is still reporting symptoms of GERD, thus we have continued both PPI and H2 B and will plan to wean as an outpatient. Medications: Medication List START taking these medications oxyCODONE (immediate release) 5 mg Tab Commonly known as: ROXICODONE Take 1-3 tablets by mouth every four hours as needed for moderate pain or severe pain. CHANGE how you take these medications ranitidine 150 mg Tab Commonly known as: ZANTAC Take 150 mg by mouth twice daily as needed. Indications: gastroesophageal reflux disease What changed: Another medication with the same name was removed. Continue taking this medi cation, and follow the directions you see here. CONTINUE taking these medications acetaminophen 325 mg Tab Commonly known as: TYLENOL Take 2 tablets by mouth every six hours as needed for pain. Cut tablet into small pieces. D o not crush. ascorbic acid (vitamin C) 500 mg Tab Commonly known as: VITAMIN C Take 1 tablet by mouth three times daily. cholecalciferol (Vitamin D3) 2,000 unit Cap Commonly known as: VITAMIN D3 Take 1 capsule by mouth once daily. ergocalciferol 50,000 unit Cap Commonly known as: VITAMIN D2, DRISDOL Take 1 capsule by mouth every seven days. For 12 weeks Indications: Vitamin D Deficiency (H igh Dose Therapy) EVENING PRIMROSE ORAL Take by mouth once daily at bedtime. ferrous sulfate 325 mg (65 mg iron) Tab Take 325 mg by mouth once daily. glycerin (ADULT) Supp Unwrap and insert 1 suppository rectally once daily as needed for constipation. metFORMIN 500 mg Tab Commonly known as: GLUCOPHAGE Take 1,000 mg by mouth two times daily. ondansetron ODT 4 mg Tbdi Commonly known as: ZOFRAN ODT Dissolve 1 tablet on tongue every six hours as needed for nausea/vomiting. pantoprazole 20 mg Tbec Commonly known as: PROTONIX Take 1 tablet by mouth two times daily. Indications: gastroesophageal reflux disease polyethylene glycol 17 gram/dose Powd Commonly known as: MIRALAX Dissolve 17g (1 capful) in at least 4 ounces of fluid and drink once daily as needed for co nstipation. propranolol 40 mg Tab Commonly known as: INDERAL Take 40 mg by mouth two times daily. QVAR 40 mcg/actuation Aero Generic drug: beclomethasone Inhale 1 puff two times daily. Indications: Controller Medication for Asthma simethicone chew 80 mg Chew Commonly known as: MYLICON Chew and swallow 1 tablet four times daily as needed for gas/bloating. topiramate 50 mg Tab Commonly known as: TOPAMAX 50 mg two times daily. Indications: Migraine Prevention TRI-PREVIFEM (28) ORAL Take 1 tablet by mouth once daily at bedtime. VITAMIN B-2 100 mg Tab Generic drug: riboflavin (vitamin B2) Take 100 mg by mouth once daily in the morning. STOP taking these medications chlorhexidine 0.12 % Mwsh Commonly known as: PERIDEX omeprazole 20 mg Cpdr Commonly known as: PRILOSEC ursodiol 300 mg Cap Commonly known as: ACTIGALL Bariatric Diet a. You will be on FULL liquid diet. Try to take 48-64 ounces daily. Liquids should be of a thin consistency and liquids should be able to be poured from cup to cup. b. Aim for 60-80 grams of protein per day from list of foods listed in your bariatric book or in the handout provided by your dietitian prior to discharge. You will remain on this d iet for 2-3 weeks. Do not advance your diet until you are seen in clinic. c. Patient may take medication tablets < or = to 1.30 cm (0.5 inch, approximately the size of a regular M&M). Otherwise, break the pill into that size. If medication is a capsule, op en capsule. Full Liquid Diet Continue your Full Liquid Diet at home. This includes protein drinks, cream of wheat, yogu rt without fruit and clear liquids. Activity a. Do not do any strenuous exercise until your provider has given you permission to do so. b. Walking will be your main form of physical activity. It is important to move frequently throughout the day, increasing your activity level and walking often. It is important to st art slow, but increase your activity each day. c. Do not drive while on narcotic medications. d. Follow abdominal precautions. Wound Care Keep incision clean and dry. No dressings are needed. You may shower. Please pat incisional area dry. Do not rub the incisions; allow for crust to fall off on its own. No baths, hot tubs or swimming for 2 weeks if laparoscopic and 4 weeks if open surgery. Probiotics Consume 1 tablespoon twice per day of foods containing live active cultures (probiotics) chan ch as low fat yogurt or kefir. Shoshana's Yogurt or Kefir, [place] Yogurt, and Chioban i [place] Yogurt are common brands with beneficial probiotics. Dehydration Dehydration: It is extremely important for you to stay hydrated. You should be taking in 64 ounces of fluid daily. You should also be urinating at least four times a day. Please monit or and record your daily fluid intake, and report to us immediately if you are not urinating at least four times a day or are experiencing pain with urination. Medication Instructions Medication Instructions: Please cut pills with pill cutter into particles the size of a M&M. Take particles with sma ll amount of sugar-free liquid, pudding or yogurt. If unable to cut, please crush pills. If any of your medications come in capsule form, please open capsule and empty contents into sm all amount of sugar-free liquid or yogurt. Take entire contents via mouth. Vitamins Vitamins: You will begin taking your vitamins after your first 1 week post operative visit with the Nurse Practitioner. If your insurance does not cover vitamins, they are available over the counter at most [facility] stores. Nausea/Vomiting/Difficulty Swallowing Nausea/Vomiting/Difficulty swallowing: Could be from not ingesting appropriate food/drink, eating too much or too fast. Do not drink with meals, leave at least 30 minutes between eati ng and drinking to decrease overfilling of the stomach. Take nausea medication provided to y ou if you feel nauseated. It is important that you meet your goal of fluid intake (64 ounces /day) Malaise (Feeling tired) Malaise (Feeling tired): It is very normal to feel tired after surgery for the first two we eks. It is important to be active, and you should feel a little bit better each day. Primary Care Provider Follow Up Primary Care Provider Follow Up: a) Primary care follow up is extremely important. You need to make a follow up appointment with your Primary Care Provider in 2 weeks. It is especially important to do so if you are on medications for your blood pressure or for diabetes. At this appointment your provider wi ll review your medications and make the necessary changes--if needed. b) Before your primary care visit, please check your blood sugar and blood pressure regula rly and keep a record of them to show your primary care provider. At your primary care provi kala follow up visit, they will use your blood pressure and blood sugar numbers to adjust you r medications as needed. c) Diabetes -- Monitoring your blood sugar during your immediate post operative period i s important. You are at risk for hypoglycemia (low blood sugar), therefore it is important t o monitor your blood sugar levels in the immediate postoperative period and especially when taking medications for your diabetes. Early symptoms of hypoglycemia include: -Confusion. -Dizziness. -Feeling shaky. -Hunger. -Headaches. -Irritability. -Pounding heart; racing pulse. -Pale skin. If you experience any of these symptoms, please check your blood sugar level. If it is lowe r than 75, please eat something to increase your blood glucose and call your primary care pr ovider immediately for further instructions. d) Hypertension --It is important to check your blood pressure before any blood pressure medications a re taken due to your risk for hypotension (low blood pressure). Please check your blood pres sures if you are feeling dizzy or lightheaded, and especially if you notice these symptoms w hile changing from a lying to sitting to standing position. --Symptoms of Low Blood Pressure (hypotension) include: -Dizziness or lightheadeness -Fainting (syncope) -Lack of concentration -Blurred vision -Nausea -Cold, clammy, pale skin -Fatigue -Thirst Constipation Prevention It is very important to avoid constipation and straining while trying to have a bowel movem ent. It is common to experience constipation after your operation and when taking narcotics. Please use laxative medications such Polyethylene glycol (Miralax) or glycerin suppositorie s to assist you with having regular bowel movements. Please work towards having a bowel mov ement every 1-2 days. A hot drink each morning will also help the sphincter to work in pushi ng the stool forward. It is important to stay hydrated, about 45-60 fluid ounces daily, and this will help your bowel function. Pain Instructions It is expected that you will experience pain after your operation, and it is important to h ave you manage your pain to increase your activity, sleep and overall healing. You will have a prescription for pain relief. This should be taken every 3-6 hours per your instructions. Some medications, like Adams, have Tylenol in it. Make sure you do not take more than 4,000 mg of Tylenol or acetaminophen in 24 hours. Pain Tapering Instructions Your pain should slowly and steadily diminish as you heal. If your pain level at the surger y site increases, you should call us. It is normal for increased pain if you are overly acti ve or you decrease your pain medication, but a significant and unexplained increase in pain should be discussed with your surgeon. Pain medication is usually necessary for only 4-5 day s postoperatively. It is important to have a plan for tapering off of pain medication. Con sult your pharmacist to construct a proper tapering schedule. Clinic staff is able to help you develop a tapering schedule as well. Please be aware that if you have chronic pain issue s, or you require pain medication for an extended period of time, you will likely be given i nstructions to follow up with your PCP or a pain management provider. Refill Instructions: Your pain medications should be taken as needed, as prescribed by your healthcare provider. You should plan to taper down your dosing within the first 2-3 days postop. Refills are n ot available outside of clinic hours or on weekends or holidays. Narcotic pain medications require a written prescription and must be signed by a provider and mailed to you or picked up. If you need ongoing pain medication beyond the usual recovery period, you will be direc nancy to follow up with your primary care provider (PCP) as this clinic does not provide [facility] chronic pain management services. When to Call the Doctor When to Call the Doctor - If your incision becomes red, swollen, or has any bloody or pus-like drainage. - If you have a fever of 101.5 F or greater or if you have chills. - If you have increased pain, unrelieved by your pain medications. - If you have persistent nausea, vomiting, diarrhea, or no bowel movement for more than 2 d ays after discharge from the hospital. - If you develop any unusual signs or symptoms, including chest pain, shortness of breath, pulmonary embolism, leg swelling, pain or redness that is abnormal for you, and other sympto ms of concern. - If you have any questions or concerns. How to Call the Doctor - You may contact your doctor Monday through Monday during the daytime hours by calling the surgery office at [phone]. - After hours, weekends and holidays, you may call the hospital power shear operator at [phone] an d have the neonatal nurse Red Surgery Team paged. Destination Home Condition Stable Vitals on discharge: Ht 1.803 m (5' 11"), Wt 168.1 kg (370 lb 9.5 oz), BP 141/69, Pulse 84, Temperature 36.9 C (98.4 F), Temperature source Oral, RR 16, SpO2 95%, BMI 51.69 kg/(m^ 2). Facility age limit for growth percentiles is 18 years. Outstanding labs/studies: None Future Appointments Provider Department Dept Phone Center 10/02/2018 1:30 PM Indu Pisano [facility] [phone] FOOD AND N [place] 10/02/2018 2:20 PM Mehreen Koenig [facility] [phone] [facility] 10/26/2018 8:30 AM Kenan Norton [facility] [phone] [facility] 10/26/2018 9:00 AM Lisa Adam [facility] at [facility] [phone] FOOD AND NUT 12/21/2018 10:30 AM Pedro Sánchez [facility] Center at [facility] [phone] FOOD AND N [place] 12/21/2018 11:20 AM Jody Watson [facility] [phone] [facility] Discharging Physician: DIEGO Plascencia Attending Physician: Kenan Norton MD [facility] Red Surgery Pager# [phone] 10:37 AM 09/26/2018 documented in this enco unter Medications at Time of Discharge + + [...] documented as of this encounter Progress Notes Zohra Joaquin MD - 09/26/2018 7:26 AM PDT DEPARTMENT OF SURGERY Red Surgery Admission Date: 09/24/2018 ( LOS: 2 days ) Attending Provider: Kenan Norton MD Interval History and Events: EVA Complains of some LLQ and suprapubic pain, mostly gas Pain overall well controlled Tolerating PO Ambulating in the halls Passing gas and 3x bowel movements Feels like she is having some reflux BP 140/66 (BP Location: Left lower arm, Patient Position: Lying on back) | Pulse 90 | Tem p 36.8 C (98.2 F) (Oral) | Resp 18 | Ht 1.803 m (5' 11") | Wt 168.1 kg (370 lb 9.5 oz ) | SpO2 97% | BMI 51.69 kg/m | BSA 2.9 m Intake/Output 09/24 07 - 09/25 0700 09/25 07 - 09/26 0709/26 07 - 06/06 0700 [address] 50 1020 I.V. 3330 3962.5 Total Intake 3380 4982.5 Urine (mL/kg/hr) 1000 1400 (0.3) Other 200 Total Output(mL/kg) 1000 (5.9) 1600 (9.5) Net +2380 +3382.5 Stool 2 x General: pleasant and cooperative, NAD HEENT: EOMI, sclerae anicteric Respiratory: symmetrical chest rise, breathing well on RA Cardiovascular: non-tachycardic Abdomen: soft, non tender, non distended, incisions CDI Extremities: no edema Neuro: alert and oriented Data No new data Assessment and Plan: Maria De Jesus Anna is a 27 y.o. F w/ hx of DM2, GERD, HTN,HLD,LVH, and MEHUL on POD#1 s/p R YGB and lap cholecystectomy now stable and progressing as expect post-operatively. #s/p lap RYGB #s/p lap cholecystecomy - Advance to full liquid diet today - Seen by music journalist yesterday - dc MIVF - Encourage ambulation, breathing exercises/IS - Increase simethicone to QID from TID - Daily PPI - Bariatric vitamins per protocol - Lovenox 40mg BID for VTE prophylaxis Dispo: Possible discharge today if tolerates full liquid diet. Dr. Zohra Joaquin is the attending of record for this encounter Tonny Bhatti, MS3 General Surgery ATTENDING ATTESTATION I saw and examined the patient and discussed the case with Dr. Patiño. I agree with the resident's findings and plan as written. Zohra Joaquin MD ody Watson ACNP - 09/25/2018 8:16 AM PDT DEPARTMENT OF SURGERY Red Surgery Admission Date: 09/24/2018 ( LOS: 1 day ) Attending Provider: Kenan Norton MD Interval History and Events: NAEO Complains of epigastric/chest pain near surgical site made worse by exhaling Denies N/V No flatus Burping frequently Urinating Tolerating PO clears BP 148/87 (BP Location: Left lower arm, Patient Position: Lying on back;Sitting) | Pulse 7 3 | Temp 36.7 C (98.1 F) (Oral) | Resp 16 | Ht 1.803 m (5' 11") | Wt 168.1 kg (370 l b 9.5 oz) | SpO2 96% | BMI 51.69 kg/m | BSA 2.9 m Intake/Output / 0701 - 06/03 0700 06/03 07 - / 0700 06/04 07 - / 0700 P[address] 50 50 I.V. 3330 20 Total Intake 3380 70 Urine (mL/kg/hr) 1000 300 (1.4) Total Output(mL/kg) 1000 (5.9) 300 (1.8) Net +2380 -230 General: Pleasant and cooperative, mildly anxious HEENT: EOMI, sclerae anicteric Respiratory: Lungs clear to auscultation bilaterally Cardiovascular: RRR, no murmurs, gallops, or rubs Abdomen: Soft, non distended, mild tenderness in the epigastric region, incisions clean/dry /intact Extremities: No edema Neuro: Alert and oriented Data CBG Result Av.7 Min: 102 Max: 169 Last Assessment and Plan: Maria De Jesus Anna is a 27 y.o. F w/ hx of DM2, GERD, HTN, HLD, LVH, and MEHUL on POD#1 s/p RYG B and lap cholecystectomy now stable and progressing as expect post-operatively. #s/p lap RYGB #s/p lap cholecystecomy - Continue bariatric clear liquid diet as per bariatric protocol. Anticipate advancing to b zackery full liquid when tolerating angeles clears better. -continue MIVF until PO > 500ml. - Encourage ambulation - Add lidocaine patch for additional pain control of epigastric/chest pain -continue acetaminophen, gabapentin and oxycodone for pain control. Encourage use of oxycod one for better pain control. -Incentive spirometry and cough/deep breathing exercises -Daily PPI -Bariatric vitamins per protocol -Lovenox 40mg BID for VTE prophylaxis Dispo: Continue acute care. Anticipate discharge 6/5 when pain control improved and oral in take improves. Dr. Kenan Norton is the attending of record for this encounter. Tonny Bhatti, MS4 General Surgery A student assisted with documenting this service. I saw the patient and reviewed and verifi ed all information documented by the student and made modifications to such information, whe n appropriate. Wendy Robins MD - 09/24/2018 11:19 AM PDT BARIATRIC SURGERY INITIAL SURGEON VISIT DATE OF VISIT: 09/24/18 HISTORY: Maria De Jesus Anna is a [...] prescribed screening protocols as defined by the [facility] bariatric program including medic al, psychiatric and [...] History Procedure Laterality Date Knee surgery Left CurrentMedications Current Outpatient Prescriptions Medication Sig acetaminophen 325 [...] Doxycycline Rash Percocet [Oxycodone-Acetaminophen] Nausea and Vomiting Troy Oil Hives and Nausea and Vomiting Seroquel [Quetiapine Fumarate] Suicidal Ideation Social History Narrative Lexiscan Myocardial Perfusion Study ([facility]) 02/19/2018 (see media): CHEST 2 VIEWS [...] negative except as noted above. PHYSICAL EXAMINATION: Last Vitals: BP (!) 178/100 | Pulse 73 | Temp 36.6 C (97.9 F) (Temporal) | Resp 16 | Ht 1.803 m (5' 11") | Wt 168.1 kg (370 lb 9.5 oz) | SpO2 98% | BMI 51.69 kg/m | BSA 2.9 m 24 Hour Vital Min/Max: Systolic (24hrs), Av , Min:178 , Max:178 Diastolic (24hrs), Av, Min:100, Max:100 Pulse Min: 73 Max: 73 Temp Min: 36.6 C (97.9 F) Max: 36.6 C (97.9 F) Resp Min: 16 Max: 16 SpO2 Min: 98 % Max: 98 % No intake or output data in the 24 hours ending 09/24/18 1120 GENERAL: Well nourished, well developed and in [...] lap latricia with possible IOC, and EGD documented in thi s encounter Plan of Treatment +--------+ + + + + | Date | Type | Specialty | Care Team | Description | +--------+ + + + + | 11/13/ | Office | Gastroenterology | Cassidy Schneider, | | | 2019 | Visit | | [address] | | | | | | [place], [place] | | | | | | [address] | | | | | | [phone] | | | | | | | | +--------+ + + + + | 11/17/ | Video/TeleH | Pain Management | Florencio Lockett, | | | 2019 | ealth-Sched | | PhD [address] | | | | uled | | [place], [place] | | | | | | [address] | | | | | | [phone] | | | | | | | | +--------+ + + + + | 12/01/ | Video/TeleH | Pain Management | Florencio Lockett, | | | 2019 | ealth-Sched | | PhD [address] | | | | uled | | [place], [place] | | | | | | [address] | | | | | | [phone] | | | | | | | | +--------+ + + + + | 01/06/ | Office | Plastic Surgery | Kuldip Harrell MD | | | 2019 | Visit | | [address] | | | | | | [place], [place] | | | | | | [address] | | | | | | [phone] | | | | | | | | +--------+ + + + + + +---------+--------+ + + | Name | Type | Priori | Associated Diagnoses | Order Schedule | | | | ty | | | + +---------+--------+ + + | INTRAPROCEDURE | Imaging | Routin | | One Time for 1 | | IMAGING | | e | | Occurrences starting | | | | | | 09/24/2018 until | | | | | | 09/24/2018, 1 | | | | | | completed | + +---------+--------+ + + documented as of this encounter Procedures + +--------+ + + + | Procedure Name | Priori | Date/Time | Associated Diagnosis | Comments | | | ty | | | | + +--------+ + + + | CAPILLARY BLOOD | Routin | 09/26/2018 | Morbid obesity | Results for this | | GLUCOSE (NO CHG), | e | 8:30 AM | with BMI of | procedure are in the | | POC | | PDT | 50.0-59.9, adult | results section. | | | | | (HCC) | | + +--------+ + + + | CAPILLARY BLOOD | Routin | 09/25/2018 | Morbid obesity | Results for this | | GLUCOSE (NO CHG), | e | 10:17 PM | with BMI of | procedure are in the | | POC | | PDT | 50.0-59.9, adult | results section. | | | | | (HCC) | | + +--------+ + + + | CAPILLARY BLOOD | Routin | 09/25/2018 | Morbid obesity | Results for this | | GLUCOSE (NO CHG), | e | 6:11 PM | with BMI of | procedure are in the | | POC | | PDT | 50.0-59.9, adult | results section. | | | | | (HCC) | | + +--------+ + + + | CAPILLARY BLOOD | Routin | 09/25/2018 | Morbid obesity | Results for this | | GLUCOSE (NO CHG), | e | 12:03 PM | with BMI of | procedure are in the | | POC | | PDT | 50.0-59.9, adult | results section. | | | | | (HCC) | | + +--------+ + + + | CAPILLARY BLOOD | Routin | 09/25/2018 | Morbid obesity | Results for this | | GLUCOSE (NO CHG), | e | 7:58 AM | with BMI of | procedure are in the | | POC | | PDT | 50.0-59.9, adult | results section. | | | | | (HCC) | | + +--------+ + + + | PROCEDURE NOTE | Routin | 09/25/2018 | | Results for this | | | e | 6:31 AM | | procedure are in the | | | | PDT | | results section. | + +--------+ + + + | CAPILLARY BLOOD | Routin | 09/24/2018 | Morbid obesity | Results for this | | GLUCOSE (NO CHG), | e | 3:19 PM | with BMI of | procedure are in the | | POC | | PDT | 50.0-59.9, adult | results section. | | | | | (HCC) | | + +--------+ + + + | LAPAROSCOPIC GASTRIC | Routin | 09/24/2018 | | Results for this | | BYPASS AND | e | 3:01 PM | | procedure are in the | | NOREEN-EN-Y | | PDT | | results section. | | GASTROENTEROSTOMY | | | | | | WITH NOREEN LIMB 150 | | | | | | CM OR LESS | | | | | + +--------+ + + + | EGD | Routin | 09/24/2018 | | Results for this | | (ESOPHAGOGASTRODUODE | e | 3:01 PM | | procedure are in the | | NOSCOPY) | | PDT | | results section. | + +--------+ + + + | LAPAROSCOPIC | Routin | 09/24/2018 | | Results for this | | CHOLECYSTECTOMY | e | 3:01 PM | | procedure are in the | | | | PDT | | results section. | + +--------+ + + + | SURGICAL PATHOLOGY | Routin | 09/24/2018 | | Results for this | | | e | 1:05 PM | | procedure are in the | | | | PDT | | results section. | + +--------+ + + + | LAPAROSCOPIC | Electi | 09/24/2018 | Morbid obesity | | | CHOLECYSTECOMY | ve | 12:10 PM | (HCC) | | | | Surgic | PDT | | | | | al | | | | + +--------+ + + + | LAPAROSCOPIC | Electi | 09/24/2018 | Morbid obesity | | | NOREEN-EN-Y GASTRIC | ve | 12:10 PM | (HCC) | | | BYPASS | Surgic | PDT | | | | | al | | | | + +--------+ + + + | CAPILLARY BLOOD | Routin | 09/24/2018 | Morbid obesity | Results for this | | GLUCOSE (NO CHG), | e | 11:55 AM | with BMI of | procedure are in the | | POC | | PDT | 50.0-59.9, adult | results section. | | | | | (HCC) | | + +--------+ + + + | HCG URINE, POC | Urgent | 09/24/2018 | Morbid obesity | Results for this | | | | 11:32 AM | with BMI of | procedure are in the | | | | PDT | 50.0-59.9, adult | results section. | | | | | (HCC) | | + +--------+ + + + | INTRAPROCEDURE | Routin | 09/24/2018 | | Results for this | | IMAGING | e | 10:46 AM | | procedure are in the | | | | PDT | | results section. | + +--------+ + + + | CARDIOLOGY | | 09/24/2018 | | Results for this | | | | 12:00 AM | | procedure are in the | | | | PDT | | results section. | + +--------+ + + + documented in this encounter Results CAPILLARY BLOOD GLUCOSE (NO CHG), POC (09/26/2018 8:30 AM PDT) + +---------+ + + + | Component | Value | Ref Range | Performed | Pathologist | | | | | At | Signature | + +---------+ + + + | BLOOD | 102 (H) | 60 - 99 mg/dL | [facility] | | | [facility], | | | [facility] | | | POC | | | [facility] | | | | | | OF C[facility] | | | | | | TESTS | | + +---------+ + + + + + | Specimen | + + | | + + + + + + + | Performing | Address | City/State/Zipcode | Phone Number | | Organization | | | | + + + + + | [facility] | [address] | [place], [place] | | | [facility] | [address] | [address] | | | TESTS | | | | + + + + + CAPILLARY BLOOD GLUCOSE (NO CHG), POC (09/25/2018 10:17 PM PDT) + +---------+ + + + | Component | Value | Ref Range | Performed | Pathologist | | | | | At | Signature | + +---------+ + + + | BLOOD | 114 (H) | 60 - 99 mg/dL | [facility] | | | GLUCOSE, | | | [facility] | | | POC | | | [facility] | | | | | | OF CARE | | | | | | TESTS | | + +---------+ + + + + + | Specimen | + + | | + + + + + + + | Performing | Address | City/State/Zipcode | Phone Number | | Organization | | | | + + + + + | [facility] | [address] | [place], [place] | | | [facility] | [address] | [address] | | | TESTS | | | | + + + + + CAPILLARY BLOOD GLUCOSE (NO CHG), POC (09/25/2018 6:11 PM PDT) + +---------+ + + + | Component | Value | Ref Range | Performed | Pathologist | | | | | At | Signature | + +---------+ + + + | BLOOD | 101 (H) | 60 - 99 mg/dL | [facility] | | | GLUCOSE, | | | [facility] | | | POC | | | [facility] | | | | | | OF CARE | | | | | | TESTS | | + +---------+ + + + + + | Specimen | + + | | + + + + + + + | Performing | Address | City/State/Zipcode | Phone Number | | Organization | | | | + + + + + | [facility] | [address] | [place], [place] | | | [facility] | [address] | [phone] | | | TESTS | | | | + + + + + CAPILLARY BLOOD GLUCOSE (NO CHG), POC (09/25/2018 12:03 PM PDT) + +---------+ + + + | Component | Value | Ref Range | Performed | Pathologist | | | | | At | Signature | + +---------+ + + + | BLOOD | 115 (H) | 60 - 99 mg/dL | [facility] | | | [facility], | | | [place] | | | POC | | | [facility] | | | | | | OF CARE | | | | | | TESTS | | + +---------+ + + + + + | Specimen | + + | | + + + + + + + | Performing | Address | City/State/Zipcode | Phone Number | | Organization | | | | + + + + + | [facility] | [address] | [place], [place] | | | [facility] | [address] | [phone] | | | TESTS | | | | + + + + + CAPILLARY BLOOD GLUCOSE (NO CHG), POC (09/25/2018 7:58 AM PDT) + +---------+ + + + | Component | Value | Ref Range | Performed | Pathologist | | | | | At | Signature | + +---------+ + + + | BLOOD | 127 (H) | 60 - 99 mg/dL | [facility] | | | [facility], | | | [facility] | | | POC | | | [facility] | | | | | | OF CARE | | | | | | TESTS | | + +---------+ + + + + + | Specimen | + + | | + + + + + + + | Performing | Address | City/State/Zipcode | Phone Number | | Organization | | | | + + + + + | [facility] | [address] | [place], [place] | | | [facility] | [address] | [address] | | | TESTS | | | | + + + + + PROCEDURE NOTE (09/25/2018 6:31 AM PDT)CAPILLARY BLOOD GLUCOSE (NO CHG), POC (09/24/2018 3:19 PM PDT) + +---------+ + + + | Component | Value | Ref Range | Performed | Pathologist | | | | | At | Signature | + +---------+ + + + | BLOOD | 169 (H) | 60 - 99 mg/dL | [facility] | | | GLUCOSE, | | | [facility] | | | POC | | | [facility] | | | | | | OF CARE | | | | | | TESTS | | + +---------+ + + + + + | Specimen | + + | | + + + + + + + | Performing | Address | City/State/Zipcode | Phone Number | | Organization | | | | + + + + + | [facility] | [address] | [place], [place] | | | [facility] | [address] | [phone] | | | TESTS | | | | + + + + + EGD (ESOPHAGOGASTRODUODENOSCOPY) (09/24/2018 3:01 PM PDT) + + + | Narrative | Performed At | + + + | Kenan Norton MD 09/24/2018 3:26 PM Date of Procedure: | | | 09/24/18 Primary Surgeon: Kenan Norton MD Co Surgeon or | | | assistant elementary teacher: Wendy Rawls MD; MIS Fellow Preoperative | | | Diagnosis: Morbid Obesity with BMI 53. Postoperative Diagnosis: | | | Same as above Procedure list: Laparoscopic Noreen-en-Y Gastric | | | Bypass (antecolic), Laparoscopic cholecystectomy, | | | Esophagogastroduodenostopy Indications: Weight-related | | | comorbidities include: DM2, GERD, HTN, LVH, and MEHUL Findings: | | | Normal anatomy. Healthy appearance to liver. Dilated gallbladder | | | with omental adhesions. Critical view of safety achieved. Antecolic | | | noreen, with negative GJ leak test (air and methylene blue tests). | | | Specimens to the Lab: Gallbladder and contents Implants: None | | | Antibiotics: 3g Ancef Blood Loss: 15 mL IVF: 2000 mL | | | Anesthesia: General endotracheal anesthesia Staff: Codi TECHNICAL DEVELOPER: | | | Heather Zamorano Complications: none Procedure Description: The | | | patient was greeted in the preoperative area. Consent was | | | reviewed. The patient walked to the OR suite and laid supine on | | | the operating table. All pressure points were padded. SCDs were | | | in place, turned on, and functioning. General anesthesia was | | | performed and the patient tolerated this. A olmos catheter was | | | placed using sterile technique. The abdomen was prepped and | | | draped in the normal standard fashion. The prep was allowed to dry | | | appropriately. A surgical time-out was performed with the | | | operative team. A 5mm visiport trocar was used to enter the | | | abdomen via a 5mm incision just superior to the umbilicus in the | | | midline. Insufflation was started without incidence. The abdomen | | | was examined and no injuries to surrounding tissue were identified. | | | The patient tolerated insufflation well. An addition 5mm and | | | 12mm trocar were placed in the right upper quadrant under direct | | | visualization, as well as a 5 mm trocar in a subxiphoid location. | | | The abdomen was examined. The gallbladder was dilated and adherent | | | to the adjacent omentum. Prestige graspers were introduced via the | | | right upper quadrant port and locked onto the gallbladder at the | | | fundus to reflect the gallbladder superiorly and above the liver. | | | The patient's bed was positioned in reverse [place] with left | | | lateral side down. Omental adhesions were taken off the body of the | | | gallbladder with hook electrocautery, allowing exposure of the | | | hepatocystic triangle. The gallblader infundibulum was gentle | | | grasped and retracted down and laterally. A monopolar electrocautery | | | (L-Hook) was used to dissect the peritoneum of the hepatocystic | | | triangle, along with gentle blunt [place] dissector until the | | | critical view was obtained (two isolated structures | | | | | | cystic duct and cystic artery- going into the gallbladder and being | | | able to see the cystic plate immediately behind). The artery | | | and duct were clipped, twice on the proximal aspect of each | | | structure, and divided with laparoscopic Metzenbaum scissors. | | | The gallbladder was taken off the cystic plate and gallbladder fossa | | | with traction and the L-Hook cautery. The gallbladder was placed in | | | an endocatch device and removed via the RUQ 12 mm port incision. | | | The right upper quadrant was irrigated copiously with normal | | | saline solution. We inspected the cystic duct and artery stumps. The | | | liver bed was examined and hemostasis was performed. We then turned | | | out attention to performing the gastric bypass portion of the | | | surgery. An additional RUQ 5 mm port was placed under direct | | | visualization as well as a 5 mm and 12 mm trocar in the LUQ. The | | | transverse colon and omentum were retracted cranially to expose the | | | Ligament of Treitz (LOT). The jejunum was measured 80 cm distal to | | | the LOT. The jejunum was divided and the distal staple line was | | | marked with a abram drain. The mesentery was divided with | | | harmonic ultrasonic device. The distal jejunum was measure to 120 | | | cm. A stay-suture was placed at this location to the proximal | | | divided staple line. Enterotomies were created in each limb and a | | | 60mm Fordland stapler with white load was fired to create a | | | [id number] jejunojejunostomy. The anastamosis was confirmed to | | | be widely patent and hemostatic. The common enterotomy was closed | | | by firing an Fordland 60mm stapler with white load across the | | | enterotomy. Care was taken to avoid narrowing of the | | | jejunojejunostomy. A running permanent v-loc suture was used to | | | close the mesenteric defect at this site. The omentum was | | | divided from the edge to the transverse colon to allow the noreen limb | | | to pass antecolic and antegastric without tension. The omentum | | | was reduced to cover the jejunojejunostomy and tucked posterior to | | | the noreen limb. A Nathansen liver retractor was placed in the | | | subxiphoid position. The angle of His was identified and blunt | | | dissection was done to divide the phrenoesophageal ligament. The | | | pouch was measure to 4cm distal to the G-E Junction. A window was | | | created in the lesser curve soft tissue at this location. | | | Dissection was performed with a combination of blunt and harmonic | | | instruments in the retrogastric space until the lesser sac was | | | entered. The 60mm Fordland stapler with blue load was placed and | | | fired transversely to start gastric pouch formation. The Fordland | | | was then fired longitudinally towards the angle of His. Dissection | | | was performed retrogastric to connect posterior and anterior | | | dissection planes and ensure adequate fundus exclusion. Additional | | | fires of the Fordland stapler were performed with blue loads to | | | create the longitudinal wall of the gastric pouch up to the angle of | | | His. After division, omentum was tucked over the gastric remnant | | | staple line after it was ensured to be hemostatic. The Noreen | | | limb was then brought up to the gastric pouch. A posterior row of | | | 2-0 Vicryl interrupted sutures x 4 were then used to align the | | | gastric pouch to the noreen limb. We had good alignment and no undue | | | tension. We then made an enterotomy on the anterior gastric pouch at | | | the medial aspect of the pouch and a corresponding enterotomy on | | | the small bowel. The 60mm Fordland stapler with blue load was then | | | placed through the enterotomies to creat the gastrojejunostomy. The | | | stapler was closed and fired. 2-0 Vicryl sutures were placed at | | | either corner to ensure the corners of the enterotomy were well | | | incorporated. The common enterotomy was then closed in a running | | | fashion with a 2-0 absorbable V-lock suture. The previously placed | | | 2-0 Vicryl suture was then used to perform an anterior row of | | | running Lembert sutures. All staple lines with examined for | | | hemostasis and staple integrity. The abram drain was removed. | | | A bowel clamp was placed on the noreen limb. An endoscopy was | | | performed with visualization of the gastric pouch, | | | gastrojejunostomy, and jejunal mucosa. All were healthy, | | | hemostatic, and staple lines were intact and strong with | | | insufflation. The entire area was submerged under saline and no | | | bubbling or leakage was seen. Irrigation was removed. We then | | | inserted a orogastric tube into the pouch and instilled 100 cc of | | | methylene blue. A Ray karlo was placed circumferentially around the | | | anastomosis. There was no leaking observed. Methylene blue was | | | removed with suction and the orogastric tube was removed. We then | | | inspected the Ray karlo carefully and no methylene blue staining was | | | seen. We completed two negative leak tests. The clamp and liver | | | retractor were removed. All trocar sites were examined and | | | appeared hemostatic. Trocars were removed. Skin was irrigated | | | and closed with 4-0 monocryl and dermabond. The patient was | | | extubated and transferred to the recovery room in stable condition. | | | I was present for the entirety of this procedure. | | | Certification of Unavailability of Qualified Resident I understand | | | that section 1842(b)(7)(D) of the Social Security Act generally | | | prohibits Medicare physician fee schedule payment for the services | | | of assistants at surgery in teaching hospitals when qualified | | | residents are available to furnish such services. I certify that | | | Wendy Lagnuas assisted in this medically necessary case and | | | that no qualified resident was available to furnish such services. I | | | further understand that these services are subject to post-payment | | | review by the Medicare carrier. Kenan Norton MD, MS | | | Hot Wire Glass Tube Cutter [facility] Bariatric Surgery | | + + + LAPAROSCOPIC CHOLECYSTECTOMY (09/24/2018 3:01 PM PDT) + + + | Narrative | Performed At | + + + | Kenan Norton MD 09/24/2018 3:26 PM Date of Procedure: | | | 09/24/18 Primary Surgeon: Kenan Norton MD Co Surgeon or | | | assistant elementary teacher: Wendy Rawls MD; MIS Fellow Preoperative | | | Diagnosis: Morbid Obesity with BMI 53. Postoperative Diagnosis: | | | Same as above Procedure list: Laparoscopic Noreen-en-Y Gastric | | | Bypass (antecolic), Laparoscopic cholecystectomy, | | | Esophagogastroduodenostopy Indications: Weight-related | | | comorbidities include: DM2, GERD, HTN, LVH, and MEHUL Findings: | | | Normal anatomy. Healthy appearance to liver. Dilated gallbladder | | | with omental adhesions. Critical view of safety achieved. Antecolic | | | noreen, with negative GJ leak test (air and methylene blue tests). | | | Specimens to the Lab: Gallbladder and contents Implants: None | | | Antibiotics: 3g Ancef Blood Loss: 15 mL IVF: 2000 mL | | | Anesthesia: General endotracheal anesthesia Staff: Codi TECHNICAL DEVELOPER: | | | Heather Zamorano Complications: none Procedure Description: The | | | patient was greeted in the preoperative area. Consent was | | | reviewed. The patient walked to the OR suite and laid supine on | | | the operating table. All pressure points were padded. SCDs were | | | in place, turned on, and functioning. General anesthesia was | | | performed and the patient tolerated this. A olmos catheter was | | | placed using sterile technique. The abdomen was prepped and | | | draped in the normal standard fashion. The prep was allowed to dry | | | appropriately. A surgical time-out was performed with the | | | operative team. A 5mm visiport trocar was used to enter the | | | abdomen via a 5mm incision just superior to the umbilicus in the | | | midline. Insufflation was started without incidence. The abdomen | | | was examined and no injuries to surrounding tissue were identified. | | | The patient tolerated insufflation well. An addition 5mm and | | | 12mm trocar were placed in the right upper quadrant under direct | | | visualization, as well as a 5 mm trocar in a subxiphoid location. | | | The abdomen was examined. The gallbladder was dilated and adherent | | | to the adjacent omentum. Prestige graspers were introduced via the | | | right upper quadrant port and locked onto the gallbladder at the | | | fundus to reflect the gallbladder superiorly and above the liver. | | | The patient's bed was positioned in reverse [place] with left | | | lateral side down. Omental adhesions were taken off the body of the | | | gallbladder with hook electrocautery, allowing exposure of the | | | hepatocystic triangle. The gallblader infundibulum was gentle | | | grasped and retracted down and laterally. A monopolar electrocautery | | | (L-Hook) was used to dissect the peritoneum of the hepatocystic | | | triangle, along with gentle blunt [place] dissector until the | | | critical view was obtained (two isolated structures | | | | | | cystic duct and cystic artery- going into the gallbladder and being | | | able to see the cystic plate immediately behind). The artery | | | and duct were clipped, twice on the proximal aspect of each | | | structure, and divided with laparoscopic Metzenbaum scissors. | | | The gallbladder was taken off the cystic plate and gallbladder fossa | | | with traction and the L-Hook cautery. The gallbladder was placed in | | | an endocatch device and removed via the RUQ 12 mm port incision. | | | The right upper quadrant was irrigated copiously with normal | | | saline solution. We inspected the cystic duct and artery stumps. The | | | liver bed was examined and hemostasis was performed. We then turned | | | out attention to performing the gastric bypass portion of the | | | surgery. An additional RUQ 5 mm port was placed under direct | | | visualization as well as a 5 mm and 12 mm trocar in the LUQ. The | | | transverse colon and omentum were retracted cranially to expose the | | | Ligament of Treitz (LOT). The jejunum was measured 80 cm distal to | | | the LOT. The jejunum was divided and the distal staple line was | | | marked with a abram drain. The mesentery was divided with | | | harmonic ultrasonic device. The distal jejunum was measure to 120 | | | cm. A stay-suture was placed at this location to the proximal | | | divided staple line. Enterotomies were created in each limb and a | | | 60mm Fordland stapler with white load was fired to create a | | | [id number] jejunojejunostomy. The anastamosis was confirmed to | | | be widely patent and hemostatic. The common enterotomy was closed | | | by firing an Fordland 60mm stapler with white load across the | | | enterotomy. Care was taken to avoid narrowing of the | | | jejunojejunostomy. A running permanent v-loc suture was used to | | | close the mesenteric defect at this site. The omentum was | | | divided from the edge to the transverse colon to allow the noreen limb | | | to pass antecolic and antegastric without tension. The omentum | | | was reduced to cover the jejunojejunostomy and tucked posterior to | | | the noreen limb. A Nathansen liver retractor was placed in the | | | subxiphoid position. The angle of His was identified and blunt | | | dissection was done to divide the phrenoesophageal ligament. The | | | pouch was measure to 4cm distal to the G-E Junction. A window was | | | created in the lesser curve soft tissue at this location. | | | Dissection was performed with a combination of blunt and harmonic | | | instruments in the retrogastric space until the lesser sac was | | | entered. The 60mm Fordland stapler with blue load was placed and | | | fired transversely to start gastric pouch formation. The [place] | | | was then fired longitudinally towards the angle of His. Dissection | | | was performed retrogastric to connect posterior and anterior | | | dissection planes and ensure adequate fundus exclusion. Additional | | | fires of the Ford[place] stapler were performed with blue loads to | | | create the longitudinal wall of the gastric pouch up to the angle of | | | His. After division, omentum was tucked over the gastric remnant | | | staple line after it was ensured to be hemostatic. The Noreen | | | limb was then brought up to the gastric pouch. A posterior row of | | | 2-0 Vicryl interrupted sutures x 4 were then used to align the | | | gastric pouch to the noreen limb. We had good alignment and no undue | | | tension. We then made an enterotomy on the anterior gastric pouch at | | | the medial aspect of the pouch and a corresponding enterotomy on | | | the small bowel. The 60mm Fordland stapler with blue load was then | | | placed through the enterotomies to creat the gastrojejunostomy. The | | | stapler was closed and fired. 2-0 Vicryl sutures were placed at | | | either corner to ensure the corners of the enterotomy were well | | | incorporated. The common enterotomy was then closed in a running | | | fashion with a 2-0 absorbable V-lock suture. The previously placed | | | 2-0 Vicryl suture was then used to perform an anterior row of | | | running Lembert sutures. All staple lines with examined for | | | hemostasis and staple integrity. The abram drain was removed. | | | A bowel clamp was placed on the noreen limb. An endoscopy was | | | performed with visualization of the gastric pouch, | | | gastrojejunostomy, and jejunal mucosa. All were healthy, | | | hemostatic, and staple lines were intact and strong with | | | insufflation. The entire area was submerged under saline and no | | | bubbling or leakage was seen. Irrigation was removed. We then | | | inserted a orogastric tube into the pouch and instilled 100 cc of | | | methylene blue. A Ray karlo was placed circumferentially around the | | | anastomosis. There was no leaking observed. Methylene blue was | | | removed with suction and the orogastric tube was removed. We then | | | inspected the Ray karlo carefully and no methylene blue staining was | | | seen. We completed two negative leak tests. The clamp and liver | | | retractor were removed. All trocar sites were examined and | | | appeared hemostatic. Trocars were removed. Skin was irrigated | | | and closed with 4-0 monocryl and dermabond. The patient was | | | extubated and transferred to the recovery room in stable condition. | | | I was present for the entirety of this procedure. | | | Certification of Unavailability of Qualified Resident I understand | | | that section 1842(b)(7)(D) of the Social Security Act generally | | | prohibits Medicare physician fee schedule payment for the services | | | of assistants at surgery in teaching hospitals when qualified | | | residents are available to furnish such services. I certify that | | | Wendy Lagunas assisted in this medically necessary case and | | | that no qualified resident was available to furnish such services. I | | | further understand that these services are subject to post-payment | | | review by the Medicare carrier. Kenan Norton MD, MS | | | Hot Wire Glass Tube Cutter [facility] Bariatric Surgery | | + + + LAPAROSCOPIC GASTRIC BYPASS AND NOREEN-EN-Y GASTROENTEROSTOMY WITH NOREEN LIMB 150 CM OR LESS ( 09/24/2018 3:01 PM PDT) + + + | Narrative | Performed At | + + + | Kenan Norton MD 09/24/2018 3:26 PM Date of Procedure: | | | 09/24/18 Primary Surgeon: Kenan Norton MD Co Surgeon or | | | assistant elementary teacher: Wendy Rawls MD; MIS Fellow Preoperative | | | Diagnosis: Morbid Obesity with BMI 53. Postoperative Diagnosis: | | | Same as above Procedure list: Laparoscopic Noreen-en-Y Gastric | | | Bypass (antecolic), Laparoscopic cholecystectomy, | | | Esophagogastroduodenostopy Indications: Weight-related | | | comorbidities include: DM2, GERD, HTN, LVH, and MEHUL Findings: | | | Normal anatomy. Healthy appearance to liver. Dilated gallbladder | | | with omental adhesions. Critical view of safety achieved. Antecolic | | | noreen, with negative GJ leak test (air and methylene blue tests). | | | Specimens to the Lab: Gallbladder and contents Implants: None | | | Antibiotics: 3g Ancef Blood Loss: 15 mL IVF: 2000 mL | | | Anesthesia: General endotracheal anesthesia Staff: Codi TECHNICAL DEVELOPER: | | | Heather Zamorano Complications: none Procedure Description: The | | | patient was greeted in the preoperative area. Consent was | | | reviewed. The patient walked to the OR suite and laid supine on | | | the operating table. All pressure points were padded. SCDs were | | | in place, turned on, and functioning. General anesthesia was | | | performed and the patient tolerated this. A olmos catheter was | | | placed using sterile technique. The abdomen was prepped and | | | draped in the normal standard fashion. The prep was allowed to dry | | | appropriately. A surgical time-out was performed with the | | | operative team. A 5mm visiport trocar was used to enter the | | | abdomen via a 5mm incision just superior to the umbilicus in the | | | midline. Insufflation was started without incidence. The abdomen | | | was examined and no injuries to surrounding tissue were identified. | | | The patient tolerated insufflation well. An addition 5mm and | | | 12mm trocar were placed in the right upper quadrant under direct | | | visualization, as well as a 5 mm trocar in a subxiphoid location. | | | The abdomen was examined. The gallbladder was dilated and adherent | | | to the adjacent omentum. Prestige graspers were introduced via the | | | right upper quadrant port and locked onto the gallbladder at the | | | fundus to reflect the gallbladder superiorly and above the liver. | | | The patient's bed was positioned in reverse [place] with left | | | lateral side down. Omental adhesions were taken off the body of the | | | gallbladder with hook electrocautery, allowing exposure of the | | | hepatocystic triangle. The gallblader infundibulum was gentle | | | grasped and retracted down and laterally. A monopolar electrocautery | | | (L-Hook) was used to dissect the peritoneum of the hepatocystic | | | triangle, along with gentle blunt [place] dissector until the | | | critical view was obtained (two isolated structures | | | | | | cystic duct and cystic artery- going into the gallbladder and being | | | able to see the cystic plate immediately behind). The artery | | | and duct were clipped, twice on the proximal aspect of each | | | structure, and divided with laparoscopic Metzenbaum scissors. | | | The gallbladder was taken off the cystic plate and gallbladder fossa | | | with traction and the L-Hook cautery. The gallbladder was placed in | | | an endocatch device and removed via the RUQ 12 mm port incision. | | | The right upper quadrant was irrigated copiously with normal | | | saline solution. We inspected the cystic duct and artery stumps. The | | | liver bed was examined and hemostasis was performed. We then turned | | | out attention to performing the gastric bypass portion of the | | | surgery. An additional RUQ 5 mm port was placed under direct | | | visualization as well as a 5 mm and 12 mm trocar in the LUQ. The | | | transverse colon and omentum were retracted cranially to expose the | | | Ligament of Treitz (LOT). The jejunum was measured 80 cm distal to | | | the LOT. The jejunum was divided and the distal staple line was | | | marked with a abram drain. The mesentery was divided with | | | harmonic ultrasonic device. The distal jejunum was measure to 120 | | | cm. A stay-suture was placed at this location to the proximal | | | divided staple line. Enterotomies were created in each limb and a | | | 60mm Ford[place] stapler with white load was fired to create a | | | [id number] jejunojejunostomy. The anastamosis was confirmed to | | | be widely patent and hemostatic. The common enterotomy was closed | | | by firing an [place] 60mm stapler with white load across the | | | enterotomy. Care was taken to avoid narrowing of the | | | jejunojejunostomy. A running permanent v-loc suture was used to | | | close the mesenteric defect at this site. The omentum was | | | divided from the edge to the transverse colon to allow the noreen limb | | | to pass antecolic and antegastric without tension. The omentum | | | was reduced to cover the jejunojejunostomy and tucked posterior to | | | the noreen limb. A Nathansen liver retractor was placed in the | | | subxiphoid position. The angle of His was identified and blunt | | | dissection was done to divide the phrenoesophageal ligament. The | | | pouch was measure to 4cm distal to the G-E Junction. A window was | | | created in the lesser curve soft tissue at this location. | | | Dissection was performed with a combination of blunt and harmonic | | | instruments in the retrogastric space until the lesser sac was | | | entered. The 60mm Fordland stapler with blue load was placed and | | | fired transversely to start gastric pouch formation. The Fordland | | | was then fired longitudinally towards the angle of His. Dissection | | | was performed retrogastric to connect posterior and anterior | | | dissection planes and ensure adequate fundus exclusion. Additional | | | fires of the Fordland stapler were performed with blue loads to | | | create the longitudinal wall of the gastric pouch up to the angle of | | | His. After division, omentum was tucked over the gastric remnant | | | staple line after it was ensured to be hemostatic. The Noreen | | | limb was then brought up to the gastric pouch. A posterior row of | | | 2-0 Vicryl interrupted sutures x 4 were then used to align the | | | gastric pouch to the noreen limb. We had good alignment and no undue | | | tension. We then made an enterotomy on the anterior gastric pouch at | | | the medial aspect of the pouch and a corresponding enterotomy on | | | the small bowel. The 60mm Fordland stapler with blue load was then | | | placed through the enterotomies to creat the gastrojejunostomy. The | | | stapler was closed and fired. 2-0 Vicryl sutures were placed at | | | either corner to ensure the corners of the enterotomy were well | | | incorporated. The common enterotomy was then closed in a running | | | fashion with a 2-0 absorbable V-lock suture. The previously placed | | | 2-0 Vicryl suture was then used to perform an anterior row of | | | running Lembert sutures. All staple lines with examined for | | | hemostasis and staple integrity. The abram drain was removed. | | | A bowel clamp was placed on the noreen limb. An endoscopy was | | | performed with visualization of the gastric pouch, | | | gastrojejunostomy, and jejunal mucosa. All were healthy, | | | hemostatic, and staple lines were intact and strong with | | | insufflation. The entire area was submerged under saline and no | | | bubbling or leakage was seen. Irrigation was removed. We then | | | inserted a orogastric tube into the pouch and instilled 100 cc of | | | methylene blue. A Ray karlo was placed circumferentially around the | | | anastomosis. There was no leaking observed. Methylene blue was | | | removed with suction and the orogastric tube was removed. We then | | | inspected the Ray karlo carefully and no methylene blue staining was | | | seen. We completed two negative leak tests. The clamp and liver | | | retractor were removed. All trocar sites were examined and | | | appeared hemostatic. Trocars were removed. Skin was irrigated | | | and closed with 4-0 monocryl and dermabond. The patient was | | | extubated and transferred to the recovery room in stable condition. | | | I was present for the entirety of this procedure. | | | Certification of Unavailability of Qualified Resident I understand | | | that section 1842(b)(7)(D) of the Social Security Act generally | | | prohibits Medicare physician fee schedule payment for the services | | | of assistants at surgery in [facility] when qualified | | | residents are available to furnish such services. I certify that | | | Wendy Lagunas assisted in this medically necessary case and | | | that no qualified resident was available to furnish such services. I | | | further understand that these services are subject to post-payment | | | review by the Medicare carrier. Kenan Norton MD, MS | | | Hot Wire Glass Tube Cutter [facility] Bariatric Surgery | | + + + SURGICAL PATHOLOGY (09/24/2018 1:05 PM PDT) + + + + + + | Component | Value | Ref Range | Performed | Pathologist | | | | | At | Signature | + + + + + + | Clinical | This is a 27 y.o. female | | [facility] | | | History | with chronic | | DEPARTMENT | | | | cholecystitis. | | OF | | | | | | PATHOLOGY | | + + + + + + | Final | Gallbladder, | | [facility] | Electronically | | Pathologic | cholecystectomy: | | DEPARTMENT | signed by | | Diagnosis | Chronic | | OF | Dwight | | | cholecystitisLauren | | PATHOLOGY | Jane on | | | [facility] | | | 09/26/2018 at | | | Student FellowDwight | | | 12:10 PM | | | MD Jane, PhD | | | | | | | | | | | | PathologistPathology, | | | | | | [employer] [facility] [employer] | | | | | | University electronic | | | | | | signature indicates that | | | | | | I have personally | | | | | | reviewed all diagnostic | | | | | | slides, the gross and/or | | | | | | microscopic portion of | | | | | | this report and | | | | | | formulated the final | | | | | | diagnosis. | | | | + + + + + + | Gross | Received is one | | [facility] | | | Description | specimen, fresh in a | | DEPARTMENT | | | | container labeled with | | OF | | | | the patient's name | | PATHOLOGY | | | | (initials KMS) and | | | | | | medical record number | | | | | | [id number].A. Abdominal, | | | | | | Gallbladder: Received | | | | | | labeled " gallbladder-1" | | | | | | is an 8.4 x 3.6 x 2.4 | | | | | | cm gallbladder with an | | | | | | attached cystic duct | | | | | | remnant measuring 0.8 cm | | | | | | in length. The cystic | | | | | | duct lymph node is | | | | | | absent. The gallbladder | | | | | | serosa is pink, smooth, | | | | | | and glistening. The | | | | | | hepatic resection margin | | | | | | is inked blue. The | | | | | | mucosa is tafoya-pink to | | | | | | dark red with extensive | | | | | | cholesterolosis. The | | | | | | wall thickness is | | | | | | diffusely 0.1 cm. No | | | | | | stones are present.The | | | | | | cystic duct margin is | | | | | | entirely submitted and | | | | | | unit support representative sections | | | | | | from the fundus and body | | | | | | are submitted.A1, | | | | | | cystic duct margin en | | | | | | face, unit support representative | | | | | | sections of | | | | | | gallbladder(LMR) | | | | + + + + + + | Ancillary | Analyte specific | | [facility] | | | Information | reagents are used in | | DEPARTMENT | | | | many laboratory tests | | OF | | | | necessary for standard | | PATHOLOGY | | | | medical care. This test | | | | | | was developed and its | | | | | | performance | | | | | | characteristics | | | | | | determined by [facility] | | | | | | laboratories. It has | | | | | | not been cleared or | | | | | | approved by the US Food | | | | | | and Drug Administration | | | | | | (FDA). FDA does not | | | | | | require this test to go | | | | | | through premarket FDA | | | | | | review. This test is | | | | | | used for clinical | | | | | | purposes. It should not | | | | | | be regarded as | | | | | | investigational or for | | | | | | research. This | | | | | | laboratory is certified | | | | | | under the Clinical | | | | | | Laboratory Improvement | | | | | | Amendments (CLIA) as | | | | | | qualified to perform | | | | | | high complexity clinical | | | | | | laboratory testing. | | | | + + + + + + + + | Specimen | + + | Tissue - Ectopic | | ureter (disorder) | + + + + + + + | Performing | Address | City/State/Zipcode | Phone Number | | Organization | | | | + + + + + | [facility] DEPART[facility] | [address] | [place] [address] | | | PATHOLOGY | [address] | | | + + + + + CAPILLARY BLOOD GLUCOSE (NO CHG), POC (09/24/2018 11:55 AM PDT) + +---------+ + + + | Component | Value | Ref Range | Performed | Pathologist | | | | | At | Signature | + +---------+ + + + | BLOOD | 102 (H) | 60 - 99 mg/dL | [facility] - | | | GLUCOSE, | | | [facility] | | | POC | | | [facility] | | | | | | OF CARE | | | | | | TESTS | | + +---------+ + + + + + | Specimen | + + | | + + + + + + + | Performing | Address | City/State/Zipcode | Phone Number | | Organization | | | | + + + + + | [facility] | [address] | [place], [place] | | | [facility] | [facility] | [phone] | | | TESTS | | | | + + + + + HCG URINE, POC (09/24/2018 11:32 AM PDT) + + + + + + | Component | Value | Ref Range | Performed | Pathologist | | | | | At | Signature | + + + + + + | HCG URINE, | Negative | Negative | [facility] - | | | POC | | | [facility] | | | | | | [place] | | | | | | OF CARE | | | | | | TESTS | | + + + + + + + + | Specimen | + + | Urine - Urine | | (substance) | + + + + + + + | Performing | Address | City/State/Zipcode | Phone Number | | Organization | | | | + + + + + | [facility] | [address] | [place], [place] | | | [facility] | [address] | [address] | | | TESTS | | | | + + + + + INTRAPROCEDURE IMAGING (09/24/2018 10:46 AM PDT) + + | Specimen | + + | | + + + + + | Narrative | Performed At | + + + | See admission or procedure notes for details of any intraprocedure | [facility] | | images obtained. | RADIOLOGY | + + + + +---------+ + + | Performing | Address | City/State/Zipcode | Phone Number | | Organization | | | | + +---------+ + + | [facility] | | | | + +---------+ + + CARDIOLOGY (09/24/2018 12:00 AM PDT) + + + | Narrative | Performed At | + + + | | | + + + documented in this encounter Visit Diagnoses + + | Diagnosis | + + | Morbid obesity (HCC) - Primary Morbid obesity | + + | Morbid obesity with BMI of 50.0-59.9, adult (HCC) | + + | Diabetes mellitus treated with oral medication (HCC) | + + | Anxiety Anxiety state, unspecified | + + | Acute post-operative pain | + + documented in this encounter Administered Medications + +--------+ + +------+------+ | Medication Order | MAR | Action | Dose | Rate | Site | | | Action | Date | | | | + +--------+ + +------+------+ | acetaminophen (TYLENOL) tablet | Given | 09/25/19 | 1,000 mg | | | | 1,000 mg 1,000 mg, oral, | | 19 11:34 | | | | | PREPROCEDURE ONCE, 1 dose, | | AM PDT | | | | | Starting Mon09/24/18 at 1046, | | | | | | | Until Mon09/24/18 at 1134 | | | | | | + +--------+ + +------+------+ +---+---+ | | | +---+---+ + +-------+ + +---+---+ | acetaminophen (TYLENOL) tablet | Given | 09/26/19 | 1,000 mg | | | | 1,000 mg 1,000 mg, oral, EVERY 8 | | 19 11:54 | | | | | HOURS, 3 doses, First dose on | | AM PDT | | | | | 09/24/18 at 1845, Last dose on | | | | | | | 09/25/18 at 1045 | | | | | | + +-------+ + +---+---+ +-------+ + +---+---+ | Given | 09/26/19 | 1,000 mg | | | | | 19 4:09 | | | | | | AM PDT | | | | +-------+ + +---+---+ +---+---+ | | | +---+---+ + +-------+ + +---+---+ | acetaminophen (TYLENOL) tablet | Given | 09/27/19 | 1,000 mg | | | | 1,000 mg 1,000 mg, oral, EVERY 6 | | 19 8:48 | | | | | HOURS NEEDED, Starting Mon | | AM PDT | | | | | 09/25/18 at 1845, Until Mon09/26/18 | | | | | | | at 1947, mild pain, fever, | | | | | | | multimodal pain control | | | | | | + +-------+ + +---+---+ +---+---+ | | | +---+---+ + +-------+ +--------+---+---------+ | cyanocobalamin (VITAMIN B-12) | Given | 09/26/19 | 1,000 | | Abdomen | | injection 1,000 mcg 1,000 mcg, | | 19 8:21 | mcg | | | | subcutaneous, DAILY, 1 dose, | | AM PDT | | | | | First dose on Mon09/25/18 at 0900 | | | | | | + +-------+ +--------+---+---------+ + +---+ | | | + +---+ | dextrose 50 % in water IV 25 mL | | | 25 mL, intravenous, NEEDED, | | | Starting Mon09/24/18 at 2358, | | | Until Mon09/26/18 at 1947, CBG | | | less than 70 mg/dL if patient | | | unable to take PO, per Adult | | | Hypoglycemia Protocol | | + +---+ | | | + +---+ + +-------+ +-------+---+---+ | diphenhydrAMINE (BENADRYL) | Given | 09/27/19 | 25 mg | | | | capsule 25 mg 25 mg, oral, EVERY | | 19 2:50 | | | | | 6 HOURS NEEDED, Starting Wed | | AM PDT | | | | | 09/26/18 at 0237, Until Mon09/26/18 | | | | | | | at 1947, itching | | | | | | + +-------+ +-------+---+---+ +---+---+ | | | +---+---+ + +-------+ +-------+---+---------+ | enoxaparin (LOVENOX) injection | Given | 09/25/19 | 40 mg | | Abdomen | | 40 mg 40 mg, subcutaneous, | | 19 11:35 | | | | | PREPROCEDURE ONCE, 1 dose, | | AM PDT | | | | | Starting 09/24/18 at 1046, | | | | | | | Until Mon09/24/18 at 1135 | | | | | | + +-------+ +-------+---+---------+ +---+---+ | | | +---+---+ + +-------+ +-------+---+---------+ | enoxaparin (LOVENOX) injection | Given | 09/27/19 | 40 mg | | Abdomen | | 40 mg 40 mg, subcutaneous, EVERY | | 19 8:31 | | | | | 12 HOURS, First dose on Mon | | AM PDT | | | | | 09/25/18 at 0900, Until | | | | | | | Discontinued | | | | | | + +-------+ +-------+---+---------+ +-------+ +-------+---+---------+ | Given | 09/26/19 | 40 mg | | Abdomen | | | 19 7:58 | | | | | | PM PDT | | | | +-------+ +-------+---+---------+ | Given | 09/26/19 | 40 mg | | Abdomen | | | 19 8:20 | | | | | | AM PDT | | | | +-------+ +-------+---+---------+ +---+---+ | | | +---+---+ + +-------+ +--------+---+---+ | gabapentin (NEURONTIN) capsule | Given | 09/26/19 | 300 mg | | | | 300 mg 300 mg, oral, EVERY 8 | | 19 10:06 | | | | | HOURS, First dose on Mon09/25/18 | | PM PDT | | | | | at 1445, Until Discontinued | | | | | | + +-------+ +--------+---+---+ +---+---+ | | | +---+---+ + +-------+ +--------+---+---+ | gabapentin (NEURONTIN) capsule | Given | 09/25/19 | 600 mg | | | | 600 mg 600 mg, oral, | | 19 11:35 | | | | | PREPROCEDURE ONCE, 1 dose, | | AM PDT | | | | | Starting Mon09/24/18 at 1046, | | | | | | | Until Mon09/24/18 at 1135 | | | | | | + +-------+ +--------+---+---+ +---+---+ | | | +---+---+ + +-------+ +--------+---+---+ | gabapentin (NEURONTIN) liquid | Given | 09/26/19 | 300 mg | | | | 300 mg 300 mg, oral, EVERY 8 | | 19 11:54 | | | | | HOURS, 3 doses, First dose on Mon | | AM PDT | | | | | 09/24/18 at 1845, Last dose on Mon | | | | | | | 09/25/18 at 1045 | | | | | | + +-------+ +--------+---+---+ +-------+ +--------+---+---+ | Given | 09/26/19 | 300 mg | | | | | 19 3:43 | | | | | | AM PDT | | | | +-------+ +--------+---+---+ + +---+ | | | + +---+ | gabapentin (NEURONTIN) liquid | | | 300 mg 300 mg, oral, THREE TIMES | | | DAILY, First dose on Mon09/26/18 | | | at 0900, Until Discontinued | | + +---+ | | | + +---+ | glucagon (GLUCAGEN) injection 1 | | | mg 1 mg, intramuscular, | | | NEEDED, Starting 09/24/18 at | | | 2358, Until Mon09/26/18 at 1947, | | | CBG less than 70 mg/dL per Adult | | | Hypoglycemia Protocol | | + +---+ | | | + +---+ | glucose chewable tablet 16 g | | | 16 g, oral, NEEDED, Starting | | | 09/24/18 at 2358, Until Wed | | | 09/26/18 at 194, CBG less than 70 | | | mg/dL per Adult Hypoglycemia | | | Protocol | | + +---+ | | | + +---+ + +-------+ +--------+---+---+ | HYDROmorphone (DILAUDID) | Given | 09/25/19 | 0.5 mg | | | | injection 0.2-0.5 mg 0.2-0.5 mg, | | 19 4:40 | | | | | intravenous, POSTPROCEDURE PRN, | | PM PDT | | | | | Starting 09/24/19 at 1254, | | | | | | | Until Mon09/24/18 at 1834, | | | | | | | moderate pain while in Phase I | | | | | | | Recovery | | | | | | + +-------+ +--------+---+---+ +-------+ +--------+---+---+ | Given | 09/25/19 | 0.5 mg | | | | | 19 4:24 | | | | | | PM PDT | | | | +-------+ +--------+---+---+ | Given | 09/25/19 | 0.3 mg | | | | | 19 3:46 | | | | | | PM PDT | | | | +-------+ +--------+---+---+ +---+---+ | | | +---+---+ + +-------+ +--------+---+---+ | HYDROmorphone (DILAUDID) | Given | 09/26/19 | 0.5 mg | | | | injection 0.5-1 mg 0.5-1 mg, | | 19 8:59 | | | | | intravenous, EVERY 1 HOUR | | PM PDT | | | | | NEEDED, Starting Mon09/24/18 at | | | | | | | 1531, Until Mon09/26/18 at 0755, | | | | | | | severe pain | | | | | | + +-------+ +--------+---+---+ + +---+ | | | + +---+ | insulin lispro (HUMALOG) | | | injection 1-16 Units 1-16 Units, | | | subcutaneous, FOUR TIMES DAILY, | | | First dose on Mon09/25/18 at 0800, | | | Until Discontinued | | + +---+ | | | + +---+ + +---------+ +--------+---+---+ | lactated ringers IV 500 mL, | New Bag | 09/25/19 | 500 mL | | | | intravenous, POSTPROCEDURE PRN, | | 19 3:34 | | | | | dose, Starting Mon09/24/18 at | | PM PDT | | | | | 1254, Until Mon09/24/18 at 1851, | | | | | | | nausea/vomiting due to | | | | | | | dehydration | | | | | | + +---------+ +--------+---+---+ +---+---+ | | | +---+---+ + + + +-------+-------+---+ | lactated ringers IV 150 mL/hr, | Rate/Dos | 09/27/19 | 150 | 150 | | | intravenous, CONTINUOUS, | e Verify | 19 5:51 | mL/hr | mL/hr | | | Starting 09/24/18 at 1545, | | AM PDT | | | | | Until 09/26/18 at 0752 | | | | | | + + + +-------+-------+---+ + + +-------+-------+---+ | New Bag | 09/27/19 | 150 | 150 | | | | 19 2:30 | mL/hr | mL/hr | | | | AM PDT | | | | + + +-------+-------+---+ | Rate/Dose Verify | 09/27/19 | 150 | 150 | | | | 19 1:20 | mL/hr | mL/hr | | | | AM PDT | | | | + + +-------+-------+---+ +---+---+ | | | +---+---+ + + + +---------+---+-------+ | lidocaine (LIDODERM) 5 % patch | Applied | 09/26/19 | 1 patch | | Chest | | 1 patch 1 patch, transdermal, | Patch | 19 2:32 | | | | | EVERY 24 HOURS, First dose on e | | PM PDT | | | | | 09/25/18 at 0745, Until | | | | | | | Discontinued | | | | | | + + + +---------+---+-------+ + + +---------+---+---------+ | Applied Patch | 09/26/19 | 1 patch | | Abdomen | | | 19 8:24 | | | | | | AM PDT | | | | + + +---------+---+---------+ +---+---+ | | | +---+---+ + + + +---------+---+---------+ | lidocaine (LIDODERM) 5 % patch | Applied | 09/27/19 | 2 | | Abdomen | | 1 patch 1 patch, transdermal, | Patch | 19 8:33 | patches | | | | EVERY 24 HOURS, First dose on Tue | | AM PDT | | | | | 09/25/18 at 0745, Until | | | | | | | Discontinued | | | | | | + + + +---------+---+---------+ + + +---------+---+---------+ | Applied Patch | 09/26/19 | 1 patch | | Abdomen | | | 19 2:32 | | | | | | PM PDT | | | | + + +---------+---+---------+ | Applied Patch | 09/26/19 | 1 patch | | Chest | | | 19 8:23 | | | | | | AM PDT | | | | + + +---------+---+---------+ +---+---+ | | | +---+---+ + +-------+ +-------+---+---+ | metoclopramide HCl (REGLAN) | Given | 09/27/19 | 10 mg | | | | injection 10 mg 10 mg, | | 19 5:14 | | | | | intravenous, EVERY 6 HOURS | | AM PDT | | | | | NEEDED, Starting 09/24/18 at | | | | | | | 1531, Until Mon09/26/18 at 0755, | | | | | | | nausea/vomiting, if unable to | | | | | | | tolerate oral metoclopramide | | | | | | + +-------+ +-------+---+---+ +-------+ +-------+---+---+ | Given | 09/26/19 | 10 mg | | | | | 19 10:12 | | | | | | PM PDT | | | | +-------+ +-------+---+---+ | Given | 09/25/19 | 10 mg | | | | | 19 11:03 | | | | | | PM PDT | | | | +-------+ +-------+---+---+ + +---+ | | | + +---+ | metoclopramide HCl (REGLAN) | | | injection 1 dose, Starting Mon | | | 09/24/18 at 1600, Until Mon09/24/18 | | | at 1602 | | + +---+ | | | + +---+ + +-------+ +-------+---+---+ | metoclopramide HCl (REGLAN) | Given | 09/26/19 | 10 mg | | | | tablet 10 mg 10 mg, oral, EVERY | | 19 8:23 | | | | | 6 HOURS, 4 doses, First dose on | | AM PDT | | | | | Mon09/24/18 at 1845, Last dose on | | | | | | | 09/25/18 at 1000 | | | | | | + +-------+ +-------+---+---+ +-------+ +-------+---+---+ | Given | 09/26/19 | 10 mg | | | | | 19 3:41 | | | | | | AM PDT | | | | +-------+ +-------+---+---+ | Given | 09/25/19 | 10 mg | | | | | 19 10:42 | | | | | | PM PDT | | | | +-------+ +-------+---+---+ +---+---+ | | | +---+---+ + +-------+ +-------+---+---+ | omeprazole (PRILOSEC) capsule | Given | 09/27/19 | 20 mg | | | | 20 mg 20 mg, oral, DAILY, First | | 19 8:34 | | | | | dose on Mon09/24/18 at 1845, Until | | AM PDT | | | | | Discontinued | | | | | | + +-------+ +-------+---+---+ +-------+ +-------+---+---+ | Given | 09/26/19 | 20 mg | | | | | 19 8:23 | | | | | | AM PDT | | | | +-------+ +-------+---+---+ +---+---+ | | | +---+---+ + +-------+ +------+---+---+ | ondansetron ODT (ZOFRAN ODT) | Given | 09/27/19 | 4 mg | | | | tablet 4 mg 4 mg, oral, EVERY 12 | | 19 2:51 | | | | | HOURS, 4 doses, First dose on | | AM PDT | | | | | 09/25/18 at 0300, Last dose on | | | | | | | Mon09/26/18 at 1500 | | | | | | + +-------+ +------+---+---+ +-------+ +------+---+---+ | Given | 09/26/19 | 4 mg | | | | | 19 2:33 | | | | | | PM PDT | | | | +-------+ +------+---+---+ | Given | 09/26/19 | 4 mg | | | | | 19 3:28 | | | | | | AM PDT | | | | +-------+ +------+---+---+ +---+---+ | | | +---+---+ + +-------+ +------+---+---+ | ondansetron ODT (ZOFRAN ODT) | Given | 09/26/19 | 4 mg | | | | tablet 4 mg 4 mg, oral, EVERY 12 | | 19 10:26 | | | | | HOURS NEEDED, Starting Mon | | PM PDT | | | | | 09/24/18 at 1834, Until Mon09/26/18 | | | | | | | at 0755, nausea/vomiting, first | | | | | | | line | | | | | | + +-------+ +------+---+---+ +-------+ +------+---+---+ | Given | 09/26/19 | 4 mg | | | | | 19 8:21 | | | | | | AM PDT | | | | +-------+ +------+---+---+ +---+---+ | | | +---+---+ + +-------+ +------+---+---+ | ondansetron ODT (ZOFRAN ODT) | Given | 09/27/19 | 4 mg | | | | tablet 4 mg 4 mg, oral, EVERY 8 | | 19 10:32 | | | | | HOURS NEEDED, Starting Wed | | AM PDT | | | | | 09/26/18 at 0800, Until Mon09/26/18 | | | | | | | at 1947, nausea/vomiting, first | | | | | | | line | | | | | | + +-------+ +------+---+---+ +---+---+ | | | +---+---+ + +-------+ +-------+---+---+ | oxyCODONE (immediate release) | Given | 09/27/19 | 15 mg | | | | (ROXICODONE) liquid 5-15 mg 5-15 | | 19 10:32 | | | | | mg, oral, EVERY 3 HOURS | | AM PDT | | | | | NEEDED, Starting Mon09/24/18 at | | | | | | | 1834, Until Mon09/26/18 at 1947, | | | | | | | moderate pain | | | | | | + +-------+ +-------+---+---+ +-------+ +-------+---+---+ | Given | 09/27/19 | 10 mg | | | | | 19 5:08 | | | | | | AM PDT | | | | +-------+ +-------+---+---+ | Given | 09/27/19 | 15 mg | | | | | 19 1:05 | | | | | | AM PDT | | | | +-------+ +-------+---+---+ +---+---+ | | | +---+---+ + +-------+ +------+---+---+ | polyethylene glycol (MIRALAX) | Given | 09/26/19 | 17 g | | | | packet 17 g 17 g, oral, DAILY, | | 19 7:58 | | | | | First dose on Mon09/25/18 at 2100, | | PM PDT | | | | | Until Discontinued | | | | | | + +-------+ +------+---+---+ +---+---+ | | | +---+---+ + + + +---+---+---+ | probiotic yogurt (SHOSHANA'S | Given - | 09/26/19 | | | | | YOGURT) oral, TWICE DAILY, First | Food | 19 8:08 | | | | | dose on Mon09/25/18 at 0900, | | PM PDT | | | | | Until Discontinued | | | | | | + + + +---+---+---+ + +---+ | | | + +---+ | saliva substitute (MOUTH KOTE) | | | spray oral, NEEDED, Starting | | | 09/24/18 at 2330, Until Wed | | | 09/26/18 at 1947, dry mouth | | + +---+ | | | + +---+ + +-------+ +-------+---+---+ | simethicone chew (MYLICON) | Given | 09/26/19 | 80 mg | | | | tablet 80 mg 80 mg, oral, THREE | | 19 10:06 | | | | | TIMES DAILY NEEDED, Starting | | PM PDT | | | | | 09/24/18 at 1834, Until Wed | | | | | | | 09/26/18 at 0752, bloating | | | | | | + +-------+ +-------+---+---+ +-------+ +-------+---+---+ | Given | 09/26/19 | 80 mg | | | | | 19 7:07 | | | | | | PM PDT | | | | +-------+ +-------+---+---+ | Given | 09/26/19 | 80 mg | | | | | 19 4:06 | | | | | | AM PDT | | | | +-------+ +-------+---+---+ + +---+ | | | + +---+ | simethicone chew (MYLICON) | | | tablet 80 mg 80 mg, oral, FOUR | | | TIMES DAILY NEEDED, Starting | | | Mon09/26/18 at 0752, Until Mon | | | 09/26/18 at 1947, bloating | | + +---+ | | | + +---+ + +-------+ +--------+---+---+ | thiamine (VITAMIN B-1) | Given | 09/26/19 | 100 mg | | | | injection 100 mg 100 mg, | | 19 8:21 | | | | | intravenous, DAILY, 1 dose, First | | AM PDT | | | | | dose on Mon09/25/18 at 0900 | | | | | | + +-------+ +--------+---+---+ +---+---+ | | | +---+---+ + +-------+ +-------+---+---+ | topiramate (TOPAMAX) tablet 50 | Given | 09/27/19 | 50 mg | | | | mg 50 mg, oral, TWICE DAILY, | | 19 8:34 | | | | | First dose on Mon09/25/18 at 1400, | | AM PDT | | | | | Until Discontinued | | | | | | + +-------+ +-------+---+---+ +-------+ +-------+---+---+ | Given | 09/26/19 | 50 mg | | | | | 19 7:58 | | | | | | PM PDT | | | | +-------+ +-------+---+---+ | Given | 09/26/19 | 50 mg | | | | | 19 2:33 | | | | | | PM PDT | | | | +-------+ +-------+---+---+ +---+---+ | | | +---+---+ documented in this encounter
--- OUTSIDE RECORDS SUMMARY | ~2019-11-06 | XMS | Encounter Summary ---
Demographics + + + | Address | [address] | | | [place] [address] | + + + | Home Phone [...] Team Providers + +------+ + | Care Cpht Name | Role | Phone | + [...] | | | obesity | [address] [facility] | [facility] | | | | | ([facility] | [facility] | for Health | | | | | Procedures | Rd | and Healing, | | | | | PHYSICAL | [facility] [place] | [address], | | | | | THERAPY | [address] | 1st Floor | | | | | REFERRAL | Phone: | [place], [place] | | | | | | [phone] | [address] | | | | | | Fax: | Phone: | | | | | | [phone] | [phone] | | | | | | | Fax: | | | | | | | [phone] | +--------+--------+ + + + + Encounter Details +--------+ + + + + | Date | Type | Department | Care Team | Description | +--------+ + + + + | 08/14/ | Reefer Engineer | Digestive Health | Jody Watson ACNP | Morbid obesity (HCC) | | 2018 | | [place] [address] [address] | [address] | (Primary Dx) | | | | [address] [facility] | Monse Hernandez [place], | | | | | for Health and | [place] [address] | | | | | [facility], [address] | [phone] | | | | | [place], [place] | | | | | | [address] | | | | | | [phone] | | | +--------+ + + + [...] | | 2019 | Visit | | [address] | | | | | | [place], [place] | | | | | | [address] | | | | | | [phone] | | | | | | | | +--------+ + + + + | 11/17/ | Video/TeleH | Pain Management | Florencio Lockett, | | | 2019 | ealth-Sched | | PhD [address] | | | | uled | | [place], [place] | | | | | | [address] | | | | | | [phone] | | | | | | | | +--------+ + + + + | 12/01/ | Video/TeleH | Pain Management | Florencio Lockett, | | | 2019 | ealth-Sched | | PhD [address] | | | | uled | | [place], [place] | | | | | | [address] | | | | | | [phone] | | | | | | | | +--------+ + + + + | 01/06/ | Office | Plastic Surgery | Kuldip Harrell MD | | | 2019 | Visit | | [address] | | | | | | [place], [place] | | | | | | [address] | | | | | | [phone] | | | | | | | | +--------+ + + + + documented as of this encounter Visit Diagnoses + + | Diagnosis | + + | Morbid obesity (HCC) - Primary Morbid obesity | + + documented in this encounter"
--- OUTSIDE RECORDS SUMMARY | ~2019-11-06 | XMS | Encounter Summary ---
Demographics + + + | Address | [address] | | | [place] [address] | + + + | Home Phone [...] Team Providers + +------+ + | Care International Logistics Manager Name | Role | Phone | + +------+ + | Alisha Stovall PA-C | PCP | | + +------+ + Encounter Details +--------+ + + + + | Date | Type | Department | Care Team | Description | +--------+ + + + + | 06/11/ | Telephone | Digestive Health | Nellie Ybarra, | | | 2019 | | Center at [facility] | [facility] [address] | | | | | [address] | [address] [facility] [place] | | | | | for Health and | [address] | | | | | Healing, [address] | [phone] | | | | | [place], [place] | | | | | | [address] | | | | | | [phone] | | | +--------+ + + + [...] [address] | | | | | | [place], [place] | | | | | | [address] | | | | | | [phone] | | | | | | | | +--------+ + + + + | 11/17/ | Video/TeleH | Pain Management | Florencio Lockett, | | | 2019 | ealth-Sched | | PhD [address] | | | | uled | | [place], [place] | | | | | | [address] | | | | | | [phone] | | | | | | | | +--------+ + + + + | 12/01/ | Video/TeleH | Pain Management | Florencio Lockett, | | | 2019 | ealth-Sched | | PhD [address] | | | | uled | | [place], [place] | | | | | | [address] | | | | | | [phone] | | | | | | | | +--------+ + + + + | 01/06/ | Office | Plastic Surgery | Kuldip Harrell MD | | | 2019 | Visit | | [address] | | | | | | [place], [place] | | | | | | [address] | | | | | | [phone] | | | | | | | | +--------+ + + + + documented as of this encounter Visit Diagnoses Not on filedocumented in this encounter"
--- OUTSIDE RECORDS SUMMARY | ~2019-11-06 | XMS | Encounter Summary ---
Demographics + + + | Address | [address] | | | [place] [address] | + + + | Home Phone | | + + + | Preferred Language | Unknown | + + + | Marital Status | | + + + | Mandaeism Affiliation | NRP | + + + [...] Team Providers + +------+ + | Care Non Licensed Operator Name | Role | Phone | + +------+ + | Alisha Stovall PA-C | PCP | | + +------+ + Encounter Details +--------+ + + + + | Date | Type | Department | Care Team | Description | +--------+ + + + + | 02/23/ | MyChart | Cardiology | Sarah Barba | RE: Preop tests | | 2018 | Encounter | Preventive at [facility] | SHANICE Villafuerte [address] | | | | | [address] | [address] [place], | | | | | [place] for [facility] | [place] [address] | | | | | and Healing, | [phone] | | | | | [address] | | | | | | [place], [place] | | | | | | [address] | | | | | | [phone] | | | +--------+ + + + [...] [address] | | | | | | [place], [place] | | | | | | [address] | | | | | | [phone] | | | | | | | | +--------+ + + + + | 11/17/ | Video/TeleH | Pain Management | Florencio Lockett, | | | 2019 | ealth-Sched | | PhD [address] | | | | uled | | [place], [place] | | | | | | [address] | | | | | | [phone] | | | | | | | | +--------+ + + + + | 12/01/ | Video/TeleH | Pain Management | Florencio Lockett G, | | | 2019 | ealth-Sched | | PhD [address] | | | | uled | | [place], [place] | | | | | | [address] | | | | | | [phone] | | | | | | | | +--------+ + + + + | 01/06/ | Office | Plastic Surgery | Kuldip Harrell MD | | | 2019 | Visit | | [address] | | | | | | [place], [place] | | | | | | [address] | | | | | | [phone] | | | | | | | | +--------+ + + + + documented as of this encounter Visit Diagnoses Not on filedocumented in this encounter"
--- OUTSIDE RECORDS SUMMARY | ~2019-11-06 | XMS | Encounter Summary ---
Demographics + + + | Address | [address] | | | [place] [address] | + + + | Home Phone | | + + + | Preferred Language | Unknown | + + + | Marital Status | | + + + | Shinto Affiliation | NRP | + + + | Race | White | + + + | Ethnic Group | Not or | + + + Author + + + | Author | [facility] | + + + | Organization | [facility] | + + + | Address | Unknown | + + + | Phone | Unavailable | + + + Support + + +---------+ + | Name | Relationship | Address | Phone | + + +---------+ + | Jeovanny Hernández | ECON | Unknown | | + + +---------+ + Care Team Providers + +------+ + | Care Ground Water Technician Name | Role | Phone | + +------+ + | Alisha Stovall PA-C | PCP | | + +------+ + Encounter Details +--------+ + + + + | Date | Type | Department | Care Team | Description | +--------+ + + + + | 09/12/ | MyChart | Digestive Health | Kenan Norton, | Protein | | 2019 | Encounter | Center at [facility] [address] | MD [address] | | | | | [address] | [facility] [place] | | | | | for Health and | [address] | | | | | Healing, [address] | [phone] | | | | | [place], [place] | | | | | | [address] | | | | | | [phone] | | | +--------+ + + + [...] | | | | | | [place], [place] | | | | | | [address] | | | | | | [phone] | | | | | | | | +--------+ + + + + | 11/17/ | Video/TeleH | Pain Management | Florencio Lockett, | | | 2019 | ealth-Sched | | PhD [address] | | | | uled | | [place], [place] | | | | | | [address] | | | | | | [phone] | | | | | | | | +--------+ + + + + | 12/01/ | Video/TeleH | Pain Management | Florencio Lockett, | | | 2019 | ealth-Sched | | PhD [address] | | | | uled | | [place], [place] | | | | | | [address] | | | | | | [phone] | | | | | | | | +--------+ + + + + | 01/06/ | Office | Plastic Surgery | Kuldip Harrell MD | | | 2019 | Visit | | [address] | | | | | | [place], [place] | | | | | | [address] | | | | | | [phone] | | | | | | | | +--------+ + + + + documented as of this encounter Visit Diagnoses Not on filedocumented in this encounter"
--- OUTSIDE RECORDS SUMMARY | ~2019-11-06 | XMS | Encounter Summary ---
Demographics + + + | Address | [address] | | | [place] [address] | + + + | Home Phone [...] Providers + +------+ + | Care Application Security Specialist Name | Role | Phone | + +------+ + | Alisha Stovall PA-C PCP | | + +------+ + Encounter Details +--------+--------+ + + + | Date | Type | Department | Care Team | Description | +--------+--------+ + + + | // | Travel | | | | | [...] [address] | | | | | | [place], [place] | | | | | | [address] | | | | | | [phone] | | | | | | | | +--------+ + + + + | 11/17/ | Video/TeleH | Pain Management | Florencio Lockett, | | | 2019 | ealth-Sched | | PhD [address] | | | | uled | | [place], [place] | | | | | | [address] | | | | | | [phone] | | | | | | | | +--------+ + + + + | 12/01/ | Video/TeleH | Pain Management | Florencio Lockett, | | | 2019 | ealth-Sched | | PhD [address] | | | | uled | | [place], [place] | | | | | | [address] | | | | | | [phone] | | | | | | | | +--------+ + + + + | 01/06/ | Office | Plastic Surgery | Kuldip Harrell MD | | 2019 | Visit | | [address] | | | | | | [place], [place] | | | | | | [address] | | | | | | [phone] | | | | | | | | +--------+ + + + + documented as of this encounter Visit Diagnoses Not on filedocumented in this encounter"
--- OUTSIDE RECORDS SUMMARY | ~2019-11-06 | XMS | Encounter Summary ---
Demographics + + + | Address | [address] | | | [place] [address] | + + + | Home Phone | | + + + | Preferred Language | Unknown | + + + | Marital Status | | + + + | Restorationism Affiliation | NRP | + + + [...] Team Providers + +------+ + | Care Passenger Car Upholsterer Apprentice Name | Role | Phone | + +------+ + | Alisha Stovall PA-C | PCP | | + +------+ + Encounter Details +--------+ + + + + | Date | Type | Department | Care Team | Description | +--------+ + + + + | 05/08/ | Abstract | Digestive Health | Clinic, Surgery | | | 2019 | | [place] [address] [address] | | | | | | [address] [facility] | | | | | | for Health and | | | | | | Healing, [address] | | | | | | [place], [place] | | | | | | [address] | | | | | | [phone] | | | +--------+ + + + [...] Ave | | | | | | [place], [place] | | | | | | [address] | | | | | | [phone] | | | | | | | | +--------+ + + + + | 11/17/ | Video/TeleH | Pain Management | Florencio Lockett, | | | 2019 | ealth-Sched | | PhD [address] | | | | uled | | [place], [place] | | | | | | [address] | | | | | | [phone] | | | | | | | | +--------+ + + + + | 12/01/ | Video/TeleH | Pain Management | Florencio Lockett, | | | 2019 | ealth-Sched | | PhD [address] | | | | uled | | [place], [place] | | | | | | [address] | | | | | | [phone] | | | | | | | | +--------+ + + + + | 01/06/ | Office | Plastic Surgery | Kuldip Harrell MD | | | 2020 | Visit | | [address] | | | | | | [place], [place] | | | | | | [address] | | | | | | [phone] | | | | | | | | +--------+ + + + + documented as of this encounter Visit Diagnoses Not on filedocumented in this encounter"
--- OUTSIDE RECORDS SUMMARY | ~2019-11-06 | XMS | Encounter Summary ---
Demographics + + + | Address | [address] | | | [place] [address] | + + + | Home Phone | | + + + | Preferred Language | Unknown | + + + | Marital Status | | + + + | Amish Affiliation | NRP | + + + [...] Team Providers + +------+ + | Care Fitter Helper Name | Role | Phone | + +------+ + | Alisha Stovall PA-C PCP | | + +------+ + Encounter Details +--------+--------+ + + + | Date | Type | Department | Care Team | Description | +--------+--------+ + + + | 07/05/ | Travel | | | | | [...] [address] | | | | | | [place], [place] | | | | | | [address] | | | | | | [phone] | | | | | | | | +--------+ + + + + | 11/17/ | Video/TeleH | Pain Management | Florencio Lockett, | | | 2019 | ealth-Sched | | PhD [address] | | | | uled | | [place], [place] | | | | | | [address] | | | | | | [phone] | | | | | | | | +--------+ + + + + | 12/01/ | Video/TeleH | Pain Management | Florencio Lockett, | | | 2019 | ealth-Sched | | PhD [address] | | | | uled | | [place], [place] | | | | | | [address] | | | | | | [phone] | | | | | | | | +--------+ + + + + | 01/06/ | Office | Plastic Surgery | Kuldip Harrell MD | | 2019 | Visit | | [address] | | | | | | [place], [place] | | | | | | [address] | | | | | | [phone] | | | | | | | | +--------+ + + + + documented as of this encounter Visit Diagnoses Not on filedocumented in this encounter"
--- OUTSIDE RECORDS SUMMARY | ~2019-11-06 | XMS | Encounter Summary ---
Demographics + + + | Address | [address] | | | [place] [address] | + + + | Home Phone | | + + + | Preferred Language | Unknown | + + + | Marital Status | | + + + | Advent Affiliation | NRP | + + + [...] Team Providers + +------+ + | Care Arboreal Scientist Name | Role | Phone | [...] | | 2019 | | Center at [facility] [address] | [facility] [address] | | | | | [address] | [place], [place] | | | | | for [facility] and | [address] | | | | | [facility] 2 | [phone] | | | | | [place], [place] | | | | | | [address] | | | | | | | [...] [address] | | | | | | [place], [place] | | | | | | [address] | | | | | | [phone] | | | | | | | | +--------+ + + + + | 11/17/ | Video/TeleH | Pain Management | Florencio Lockett, | | | 2019 | ealth-Sched | | PhD [address] | | | | uled | | [place], [place] | | | | | | [address] | | | | | | [phone] | | | | | | | | +--------+ + + + + | 12/01/ | Video/TeleH | Pain Management | Florencio Lockett, | | | 2019 | ealth-Sched | | PhD [address] | | | | uled | | [place], [place] | | | | | | [address] | | | | | | [phone] | | | | | | | | +--------+ + + + + | 01/06/ | Office | Plastic Surgery | Kuldip Harrell MD | | | 2019 | Visit | | [address] | | | | | | [place], [place] | | | | | | [address] | | | | | | [phone] | | | | | | | | +--------+ + + + + documented as of this encounter Visit Diagnoses Not on filedocumented in this encounter"
--- OUTSIDE RECORDS SUMMARY | ~2019-11-06 | XMS | Encounter Summary ---
Demographics + + + | Address | [address] | | | [place] [address] | + + + | Home Phone | | + + + | Preferred Language | Unknown | + + + | Marital Status | | + + + | Episcopal Affiliation | NRP | + + + [...] Team Providers + +------+ + | Care Sediment Remediation Consultant Name | Role | Phone | + +------+ + | Alisha Stovall PA-C | PCP | | + +------+ + Encounter Details +--------+ + + + + | Date | Type | Department | Care Team | Description | +--------+ + + + + | 10/29/ | Transcribe | [facility] | Transcribe | | | 2019 | Orders | [facility] [address] | Encounter, Provider, | | | | | [address] [place] for | MD [address] | | | | | Health and Healing, | [place] [address] | | | | | [address] | | | | | | [place], [place] | | | | | | [address] | | | | | | [phone] | | | +--------+ + + + [...] Ave | | | | | | [place], [place] | | | | | | [address] | | | | | | [phone] | | | | | | | | +--------+ + + + + | 11/17/ | Video/TeleH | Pain Management | Florencio Lockett, | | | 2019 | ealth-Sched | | PhD [address] | | | | uled | | [place], [place] | | | | | | [address] | | | | | | [phone] | | | | | | | | +--------+ + + + + | 12/01/ | Video/TeleH | Pain Management | Florencio Lockett, | | | 2019 | [facility] | | PhD [address] | | | | uled | | [place], [place] | | | | | | [address] | | | | | | [phone] | | | | | | | | +--------+ + + + + | 01/06/ | Office | Plastic Surgery | Kuldip Harrell MD | | | 2019 | Visit | | [address] | | | | | | [place], [place] | | | | | | [address] | | | | | | [phone] | | | | | | | [...] | + + + | MRN: | PEE | | [id number] Date: 9/19/2019Patient Name: Maria De Jesus Gonzalez #: | ENDOSCOPY | | [id number] of : 1990CSN: [id number] Type: | | | OutpatientRoom: Endo 3Procedure: Upper GI | | | endoscopyIndications: Dysphagia, h/o lap gastric bypass | | | with multiple food | | | intolerances.Providers: LINDSAY SALINAS MD (Doctor), | | | BROOKLYN RAYMOND RN (Nurse), GENECREST | | | CIARA (Air Support Operations Operator)Referring MD: RAFFY DUFF, | | | MDRequesting [...] | | | The Olympus [id number] Gastroscope #[id number] was introduced | | | through the [...] This was | | | traversed. The untld-kb-luoibvu limb was characterized by | | | healthy appearing mucosa. The qqnvbysb-hv-axaxhub limb was not | | | examined [...]
--- OUTSIDE RECORDS SUMMARY | ~2019-11-06 | XMS | Encounter Summary ---
Demographics + + + | Address | [address] | | | [place] [address] | + + + | Home Phone | | + + + | Preferred Language | Unknown | + + + | Marital Status | | + + + | Orthodoxy Affiliation | NRP | + + + [...] Providers + +------+ + | Care Client Solutions Specialist Name | Role | Phone | [...] | | [address] | [facility] [place] | | | | | for Health and | [address] | | | | | Healing, [address] | [phone] | | | | | [place], [place] | | | | | | [address] | | | | | | [phone] | | | +--------+ + + + [...] [address] | | | | | | [place], [place] | | | | | | [address] | | | | | | [phone] | | | | | | | | +--------+ + + + + | 11/17/ | Video/TeleH | Pain Management | Florencio Lockett, | | | 2019 | ealth-Sched | | PhD [address] | | | | uled | | [place], [place] | | | | | | [address] | | | | | | [phone] | | | | | | | | +--------+ + + + + | 12/01/ | Video/TeleH | Pain Management | Florencio Lockett, | | | 2019 | ealth-Sched | | PhD [address] | | | | uled | | [place], [place] | | | | | | [address] | | | | | | [phone] | | | | | | | | +--------+ + + + + | 01/06/ | Office | Plastic Surgery | Kuldip Harrell MD | | | 2019 | Visit | | [address] | | | | | | [place], [place] | | | | | | [address] | | | | | | [phone] | | | | | | | | +--------+ + + + + documented as of this encounter Visit Diagnoses Not on filedocumented in this encounter"
--- OUTSIDE RECORDS SUMMARY | ~2019-11-06 | XMS | Encounter Summary ---
Demographics + + + | Address | [address] | | | [place] [address] | + + + | Home Phone | | + + + | Preferred Language | Unknown | + + + | Marital Status | | + + + | Moravian Affiliation | NRP | + + + | Race | White | + + + | Ethnic Group | Not or | + + + Author + + + | Author | [facility] | + + + | Organization | [facility] | + + + | Address | Unknown | + + + | Phone | Unavailable | + + + Support + + +---------+ + | Name | Relationship | Address | Phone | + + +---------+ + | Jeovanny Hernández | ECON | Unknown | | + + +---------+ + Care Team Providers + +------+ + | Care Low Vision Therapist Name | Role | Phone | + [...] | | 2019 | | Center at [facility] 1944 | [facility] [address] | | | | | [address] [place] | [place] | | | | | for [facility] and | [address] | | | | | [facility] 2 | [phone] | | | | | [place], [place] | | | | | | [address] | | | | | | | [...] [address] | | | | | | [place], [place] | | | | | | [address] | | | | | | [phone] | | | | | | | | +--------+ + + + + | 11/17/ | Video/TeleH | Pain Management | Florencio Lockett, | | | 2019 | ealth-Sched | | PhD [address] | | | | uled | | [place], [place] | | | | | | [address] | | | | | | [phone] | | | | | | | | +--------+ + + + + | 12/01/ | Video/TeleH | Pain Management | Florencio Lockett, | | | 2019 | ealth-Sched | | PhD [address] | | | | uled | | [place], [place] | | | | | | [address] | | | | | | [phone] | | | | | | | | +--------+ + + + + | 01/06/ | Office | Plastic Surgery | Kuldip Harrell MD | | | 2019 | Visit | | [address] | | | | | | [place], [place] | | | | | | [address] | | | | | | [phone] | | | | | | | | +--------+ + + + + documented as of this encounter Visit Diagnoses Not on filedocumented in this encounter"
--- OUTSIDE RECORDS SUMMARY | ~2019-11-06 | XMS | Encounter Summary ---
Demographics + + + | Address | [address] | | | [place] [address] | + + + | Home Phone | | + + + | Preferred Language | Unknown | + + + | Marital Status | | + + + | Yazidi Affiliation | NRP | + + + | Race | White | + + + | Ethnic Group | Not or | + + + Author + + + | Author | [facility] | + + + | Organization | [facility] | + + + | Address | Unknown | + + + | Phone | Unavailable | + + + Support + + +---------+ + | Name | Relationship | Address | Phone | + + +---------+ + | Jeovanny Hernández | ECON | Unknown | | + + +---------+ + Care Team Providers + +------+ + | Care Chlorinator Operator Name | Role | Phone | + +------+ + | Alisha Stovall PA-C | PCP | | + +------+ + Encounter Details +--------+ + + + + | Date | Type | Department | Care Team | Description | +--------+ + + + + | 10/31/ | Telephone | Digestive Health | Kenan Norton, | | | 2019 | | Center at [facility] [address] | MD [address] | | | | | [address] | [place], [place] | | | | | [facility] and | [address] | | | | | [address] | [phone] | | | | | [place], [place] | | | | | | [address] | | | | | | [phone] | | | +--------+ + + + [...] [address] | | | | | | [place], [place] | | | | | | [address] | | | | | | [phone] | | | | | | | | +--------+ + + + + | 11/17/ | Video/TeleH | Pain Management | Florencio Lockett, | | | 2019 | ealth-Sched | | PhD [address] | | | | uled | | [place], [place] | | | | | | [address] | | | | | | [phone] | | | | | | | | +--------+ + + + + | 12/01/ | Video/TeleH | Pain Management | Florencio Lockett, | | | 2019 | ealth-Sched | | PhD [address] | | | | uled | | [place], [place] | | | | | | [address] | | | | | | [phone] | | | | | | | | +--------+ + + + + | 01/06/ | Office | Plastic Surgery | Kuldip Harrell MD | | | 2019 | Visit | | [address] | | | | | | [place], [place] | | | | | | [address] | | | | | | [phone] | | | | | | | | +--------+ + + + + documented as of this encounter Visit Diagnoses Not on filedocumented in this encounter"
--- OUTSIDE RECORDS SUMMARY | ~2019-11-06 | XMS | Encounter Summary ---
Demographics + + + | Address | [address] | | | [place] [address] | + + + | Home Phone [...] + + + | Author | [facility] | + + + | Organization | [facility] | + + + | Address | Unknown | + + + | Phone | Unavailable | + + + Support + + +---------+ + | Name | Relationship | Address | Phone | + + +---------+ + | Jeovanny Hernández | ECON | Unknown | | + + +---------+ + Care Team Providers + +------+ + | Care Canoe Inspector Final Name | Role | Phone | + +------+ + | Alisha Stovall PA-C | PCP | | + +------+ + Encounter Details +--------+ + + + + | Date | Type | Department | Care Team | Description | +--------+ + + + + | 02/23/ | Abstract | Cardiology | Sarah Barba | | | 2018 | | Preventive at [facility] | SHANICE Villafuerte [address] | | | | | [address] | [address] [place], | | | | | [facility] | [place] [address] | | | | | and [address], | [phone] | | | | | [address] | | | | | | [place], [place] | | | | | | [address] | | | | | | [phone] | | | +--------+ + + + [...] [address] | | | | | | [place], [place] | | | | | | [address] | | | | | | [phone] | | | | | | | | +--------+ + + + + | 11/17/ | Video/TeleH | Pain Management | Florencio Lockett, | | | 2019 | ealth-Sched | | PhD [address] | | | | uled | | [place], [place] | | | | | | [address] | | | | | | [phone] | | | | | | | | +--------+ + + + + | 12/01/ | Video/TeleH | Pain Management | Florencio Lockett G, | | | 2019 | ealth-Sched | | PhD [address] | | | | uled | | [place], [place] | | | | | | [address] | | | | | | [phone] | | | | | | | | +--------+ + + + + | 01/06/ | Office | Plastic Surgery | Kuldip Harrell MD | | | 2019 | Visit | | [address] | | | | | | [place], [place] | | | | | | [address] | | | | | | [phone] | | | | | | | | +--------+ + + + + documented as of this encounter Visit Diagnoses Not on filedocumented in this encounter"
--- OUTSIDE RECORDS SUMMARY | ~2019-11-06 | XMS | Encounter Summary ---
Demographics + + + | Address | [address] | | | [place] [address] | + + + | Home Phone [...] Team Providers + +------+ + | Care Pump Room Operator Name | Role | Phone | + +------+ + | Alisha Stovall PA-C | PCP | | + +------+ + Encounter Details +--------+ + + + + | Date | Type | Department | Care Team | Description | +--------+ + + + + | 10/02/ | Telephone | Digestive Health | Harmony Billy, | | | 2019 | | [address] [address] | ,PhD [address] [facility] | | | | | [address] [facility] | [facility] | | | | | [facility] and | [place], [place] | | | | | [address], [facility] [address] | [address] | | | | | [place], [place] | [phone] | | | | | [address] | | | | | | [phone] | | | +--------+ + + + [...] [address] | | | | | | [place], [place] | | | | | | [address] | | | | | | [phone] | | | | | | | | +--------+ + + + + | 11/17/ | Video/TeleH | Pain Management | Florencio Lockett, | | | 2019 | ealth-Sched | | [address] | | | | uled | | [place], [place] | | | | | | [address] | | | | | | [phone] | | | | | | | | +--------+ + + + + | 12/01/ | Video/TeleH | Pain Management | Florencio Lockett, | | | 2019 | ealth-Sched | | PhD [address] | | | | uled | | [place], [place] | | | | | | [address] | | | | | | [phone] | | | | | | | | +--------+ + + + + | 01/06/ | Office | Plastic Surgery | Kuldip Harrell MD | | | 2019 | Visit | | [address] | | | | | | [place], [place] | | | | | | [address] | | | | | | [phone] | | | | | | | | +--------+ + + + + documented as of this encounter Visit Diagnoses Not on filedocumented in this encounter"
--- OUTSIDE RECORDS SUMMARY | ~2019-11-06 | XMS | Encounter Summary ---
Demographics + + + | Address | [address] | | | [place] [address] | + + + | Home Phone [...] Team Providers + +------+ + | Care Fire Technician Name | Role | Phone | + +------+ + | Alisha Stovall PA-C | PCP | | + +------+ + Encounter Details +--------+------+ + + + | Date | Type | Department | Care Team | Description | +--------+------+ + + + | 08/10/ | Lab | Laboratory at [facility] | | Preop testing | | 2019 | | [address] | | | | | | [place] for [facility] | | | | | | and Healing, | | | | | | [address] | | | | | | [place], [place] | | | | | | [address] | | | | | | [phone] | | | +--------+------+ + + + [...] Ave | | | | | | [place], [place] | | | | | | [address] | | | | | | [phone] | | | | | | | | +--------+ + + + + | 11/17/ | Video/TeleH | Pain Management | Florencio Lockett, | | | 2019 | ealth-Sched | | PhD [address] | | | | uled | | [place], [place] | | | | | | [address] | | | | | | [phone] | | | | | | | | +--------+ + + + + | 12/01/ | Video/TeleH | Pain Management | Florencio Lockett, | | | 2019 | ealth-Sched | | PhD [address] | | | | uled | | [place], [place] | | | | | | [address] | | | | | | [phone] | | | | | | | | +--------+ + + + + | 01/06/ | Office | Plastic Surgery | Kuldip Harrell MD | | | 2019 | Visit | | [address] | | | | | | [place], [place] | | | | | | [address] | | | | | | [phone] | | | | | | | | +--------+ + + + + documented as of this encounter Procedures + +--------+ + + + | Procedure Name | Priori | Date/Time | Associated Diagnosis | Comments | | | ty | | | | + +--------+ + + + | DRUG | Routin | 08/10/2018 | Preop testing | Results for this | | SCREEN,URINE;W/CONFI | e | 11:59 AM | | procedure are in the | | RM | | PDT | | results section. | + +--------+ + + + | NICOTINE & | Routin | 08/10/2018 | Preop testing | Results for this | | METABOLITES, SERUM | e | 11:59 AM | | procedure are in the | | | | PDT | | results section. | + +--------+ + + + documented in this encounter Results DRUG SCREEN,URINE;W/CONFIRM (08/10/2018 11:59 AM PDT) + + + + + + | Component | Value | Ref Range | Performed | Pathologist | | | | | At | Signature | + + + + + + | AMPHETAMINE | Negative | Negative | [facility] | | | , URINE | | | LABORATORY | | | | | | SERVICES, | | | | | | CORE | | + + + + + + | AMPHETAMINE | <125 | <1,000 ng/mL | [facility] | | | CONC, | | | LABORATORY | | | URINE | | | SERVICES, | | | | | | CORE | | + + + + + + | BARBITURATE | Negative | Negative | [facility] | | | S, URINE | | | LABORATORY | | | | | | SERVICES, | | | | | | CORE | | + + + + + + | BARBITURATE | <20 | <200 ng/mL | [facility] | | | S CONC, | | | LABORATORY | | | URINE | | | SERVICES, | | | | | | CORE | | + + + + + + | BENZODIAZEP | Negative | Negative | [facility] | | | ROEL, URINE | | | LABORATORY | | | | | | SERVICES, | | | | | | CORE | | + + + + + + | BENZODIAZEP | <30 | <200 ng/mL | [facility] | | | INE CONC, | | | LABORATORY | | | URINE | | | SERVICES, | | | | | | CORE | | + + + + + + | Cocaine, | Negative | Negative | [facility] | | | Urine | | | LABORATORY | | | | | | SERVICES, | | | | | | CORE | | + + + + + + | COCAINE | 43 | <300 ng/mL | [facility] | | | CONC, URINE | | | LABORATORY | | | | | | SERVICES, | | | | | | CORE | | + + + + + + | OPIATES, | Negative | Negative | [facility] | | | URINE | | | LABORATORY | | | | | | SERVICES, | | | | | | CORE | | + + + + + + | OPIATE | <50 | <300 ng/mL | [facility] | | | CONC, URINE | | | LABORATORY | | | | | | SERVICES, | | | | | | CORE | | + + + + + + | CANNABINOID | Negative | Negative | [facility] | | | S, URINE | | | LABORATORY | | | | | | SERVICES, | | | | | | CORE | | + + + + + + | CANNABINOID | <15 | <50 ng/mL | [facility] | | | CONC, | | | LABORATORY | | | URINE | | | SERVICES, | | | | | | CORE | | + + + + + + | METHADONE, | Negative | Negative | [facility] | | | URINE | | | LABORATORY | | | | | | SERVICES, | | | | | | CORE | | + + + + + + | METHADONE | <107 | <300 ng/mL | [facility] | | | CONC, URINE | | | LABORATORY | | | | | | SERVICES, | | | | | | CORE | | + + + + + + | OXYCODONE, | Negative | Negative | [facility] | | | URINE | | | LABORATORY | | | | | | SERVICES, | | | | | | CORE | | + + + + + + + + | Specimen | + + | Urine - Urine | | specimen collection, | | clean catch | | (procedure) | + + + + + | Narrative | Performed At | + + + | Minimum drug concentration yielding a positive urine drug screen | [facility] | | Amphetamines >=1000 ng/mL | LABORATORY | | Barbiturates >=200 ng/mL | SERVICES, CORE | | Benzodiazepine >=200 ng/mL Cocaine | | | >=300 ng/mL Methadone | | | >=300 ng/mL Opiates >=300 ng/mL | | | Oxycodone >=100 ng/mL THC - | | | Cannabinoid >=50 ng/mL Screening results are not | | | confirmed by alternate method unless requested. Results are to be | | | used for medical (i.e. treatment) purposes only. The reported | | | result is an estimated concentration of drug that can be detected by | | | the method of analysis. Amphetamine Note: Benzphetamine and | | | Selegiline may produce positive results with this assay. Opiates | | | Notes: Therapeutic doses of Ofloxcin (Floxin) or Levofloxacin | | | (Levaquin) may produce positive results with this assay. The | | | substaces being tested for must include Amphetamines, Benzodiazepines, | | | Cocaine, Alcohol, Cannabinoids, Opiates. | | + + + + + + + + | Performing | Address | City/State/Zipcode | Phone Number | | Organization | | | | + + + + + | [facility] [employer] | [address] | [place] [address] | | | SERVICES, CORE | [address] | | | + + + + + NICOTINE AND METABOLITES CONFIRM/QUANT, SERUM (08/10/2018 11:59 AM PDT) + + + + + + | Component | Value | Ref Range | Performed | Pathologist | | | | | At | Signature | + + + + + + | 3-OH-COTINI | <2 | ng/mL | [facility] | | | NE | | | REG UNIV | | | | | | PTH - INTFC | | + + + + + + | NICOTINE | <2Comment: Consistent | ng/mL | [facility] | | | (SERUM) | with abstinence from | | REG UNIV | | | | nicotine-containingprodu | | PTH - INTFC | | | | cts for at least 1 | | | | | | week.INTERPRETIVE | | | | | | INFORMATION: Nicotine | | | | | | and Metabolites, | | | | | | | | | | | | Serum or Plasma, | | | | | | | | | | | | | | | | | | Quantitative | | | | | | Methodology: | | | | | | Quantitative Liquid | | | | | | Chromatography-Tandem | | | | | | Mass Spectrometry | | | | | | Positive cutoff: 2 ng/mL | | | | | | For medical purposes | | | | | | only; not valid for | | | | | | forensic use. This test | | | | | | is designed to evaluate | | | | | | recent use of | | | | | | nicotine-containing | | | | | | products. Passive and | | | | | | active exposure cannot | | | | | | be discriminated | | | | | | definitively, although a | | | | | | cutoff of 10 ng/mL | | | | | | cotinine is frequently | | | | | | used for surgery | | | | | | qualification purposes. | | | | | | For smoking cessation | | | | | | programs or compliance | | | | | | testing, the absence of | | | | | | expected drug(s) and/or | | | | | | drug metabolite(s) may | | | | | | indicate non-compliance, | | | | | | inappropriate timing of | | | | | | specimen collection | | | | | | relative to drug | | | | | | administration, poor | | | | | | drug absorption, or | | | | | | limitations of testing. | | | | | | This test cannot | | | | | | distinguish between use | | | | | | of tobacco and purified | | | | | | nicotine products. The | | | | | | concentration value must | | | | | | be greater than or | | | | | | equal to the cutoff to | | | | | | be reported as positive. | | | | | | Test developed and | | | | | | characteristics | | | | | | determined by [facility] | | | | | | Laboratories. See | | | | | | Compliance Statement B: | | | | | | Electro[employer]/CSPerformed | | | | | | [address] | | | | | | [place] | | | | | | [address] | | | | | | [phone]. | | | | | | Josué mcdaniel MD, | | | | | | Lab. Director | | | | + + + + + + | COTININE | <2 | ng/mL | [facility] | | | | | | REG UNIV | | | [...] [facility] | [address] | [place], [place] | | | UNIV PTH - INTFC | | [address] | | + + + + + documented in this encounter Visit Diagnoses + + | Diagnosis | + + | Preop testing Preoperative examination, unspecified | + + documented in this encounter"
--- OUTSIDE RECORDS SUMMARY | ~2019-11-06 | XMS | Encounter Summary ---
Demographics + + + | Address | [address] | | | [place] [address] | + + + | Home Phone | | + + + | Preferred Language | Unknown | + + + | Marital Status | | + + + | Yazidism Affiliation | NRP | + + + [...] Team Providers + +------+ + | Care Warranty Clerk Name | Role | Phone | + +------+ + PCP | Unavailable | + +------+ + Encounter Details +--------+ + + + + | Date | Type | Department | Care Team | Description | +--------+ + + + + | 08/04/ | Abstract | Digestive Health | Clinic, Surgery | | | 2018 | | Center at [facility] [address] | | | | | | [address] [facility] | | | | | | for Health and | | | | | | Healing, [address] | | | | | | [place], [place] | | | | | | [address] | | | | | | [phone] | | | +--------+ + + + [...] [address] | | | | | | [place], [place] | | | | | | [address] | | | | | | [phone] | | | | | | | | +--------+ + + + + | 11/17/ | Video/TeleH | Pain Management | Florencio Lockett, | | | 2019 | ealth-Sched | | PhD [address] | | | | uled | | [place], [place] | | | | | | [address] | | | | | | [phone] | | | | | | | | +--------+ + + + + | 12/01/ | Video/TeleH | Pain Management | Florencio Lockett, | | | 2019 | ealth-Sched | | PhD [address] | | | | uled | | [place], [place] | | | | | | [address] | | | | | | [phone] | | | | | | | | +--------+ + + + + | 01/06/ | Office | Plastic Surgery | Kuldip Harrell MD | | | 2019 | Visit | | [address] | | | | | | [place], [place] | | | | | | [address] | | | | | | [phone] | | | | | | | | +--------+ + + + + documented as of this encounter Visit Diagnoses Not on filedocumented in this encounter"
--- OUTSIDE RECORDS SUMMARY | ~2019-11-06 | XMS | Encounter Summary ---
Demographics + + + | Address | [address] | | | [place] [address] | + + + | Home Phone | | + + + | Preferred Language | Unknown | + + + | Marital Status | | + + + | Scientology Affiliation | NRP | + + + [...] Providers + +------+ + | Care Assistant Grocery Store Manager Name | Role | Phone [...] To Surgery | | 2017 | | [place] [address] [address] | | - General | | | | [address] [facility] | | | | | | for Health and | | | | | | Healing, [address] | | | | | | [place], [place] | | | | | | [address] | | | | | | [phone] | | | +--------+ + + + [...] | | | | | | [place], [place] | | | | | | [address] | | | | | | [phone] | | | | | | | | +--------+ + + + + | 11/17/ | Video/TeleH | Pain Management | Florencio Lockett, | | | 2019 | ealth-Sched | | PhD [address] | | | | uled | | [place], [place] | | | | | | [address] | | | | | | [phone] | | | | | | | | +--------+ + + + + | 12/01/ | Video/TeleH | Pain Management | Florencio Lockett, | | | 2019 | ealth-Sched | | PhD [address] | | | | uled | | [place], [place] | | | | | | [address] | | | | | | [phone] | | | | | | | | +--------+ + + + + | 01/06/ | Office | Plastic Surgery | Kuldip Harrell MD | | | 2019 | Visit | | [address] | | | | | | [place], [place] | | | | | | [address] | | | | | | [phone] | | | | | | | | +--------+ + + + + documented as of this encounter Visit Diagnoses Not on filedocumented in this encounter"
--- OUTSIDE RECORDS SUMMARY | ~2019-11-06 | XMS | Encounter Summary ---
Demographics + + + | Address | [address] | | | [place] [address] | + + + | Home Phone [...] | Author | [facility] | + + + | Organization | [facility] | + + + | Address | Unknown | + + + | Phone | Unavailable | + + + Support + + +---------+ + | Name | Relationship | Address | Phone | + + +---------+ + | Jeovanny Hernández | ECON | Unknown | | + + +---------+ + Care Team Providers + +------+ + | Care Dressmaker Or Tailor Name | Role | Phone | + [...] + + + + | 09/24/ | Anesthesia | 6A Intra Op 3181 | Maciel Kincaid, | | | 2019 | Event | [address] | MD [address] | | | | | [facility] | [address] | | | | | Hospital Admitting | [place], [place] | | | | | Desk Located on the | [address] | | | | | 9th floor | [phone] | | | | | [place], [place] | | | | | | [address] | Heather Zamorano CRNA | | | | | | [address] | | | | | | [place], | | | | | | [place] [address] | | | | | | [phone] | | | | | | | | +--------+ + + + + Anesthesia Record + + + + + | Procedure Name | Responsible | Anesthesia Start | Anesthesia Stop Time | | | Anesthesiologist | Time | | + + + + + | LAPAROSCOPIC NOREEN EN | Maicel Kincaid MD | 09/24/18 1205 | 09/24/18 1521 | | Y GASTRIC BYPASS, | | | | | (N/A Abdomen) | | | | + + + + + +----+---+ + + | Da | T | Event | Comment | | te | i | | | | | m | | | | | e | | | +----+---+ + + | 06 | 1 | Eq Check | Anesthesia machine checked Equipment verified | | /0 | 1 | | | | 3/ | 3 | | | | 20 | 1 | | | | 19 | | | | +----+---+ + + | | 1 | Pt. Check | Prior to anesthesia start, pt. Identified, examined, chart | | | 2 | | reviewed, PARQ held, anesthetic plan made or approved by | | | 0 | | attending anesthesiologist. NPO status confirmed as appropriate | | | 0 | | for procedure Preoperative evaluation: unchanged | +----+---+ + + | | 1 | Quick Note | Pt high anxiety/panic attack in pre op holding area due to fear | | | 2 | | of complications during surgery. Treated with versed | | | 0 | | | | | 4 | | | +----+---+ + + | | 1 | | | | | 2 | | | | | 0 | | | | | 5 | | | +----+---+ + + | | 1 | An Start | | | | 2 | | | | | 0 | | | | | 5 | | | +----+---+ + + | | 1 | An Start | | | | 2 | Data | | | | 1 | | | | | 1 | | | +----+---+ + + | | 1 | Vitals | Monitors applied Vital signs checked Patient ready for anesthesia | | | 2 | Checked | | | | 1 | | | | | 1 | | | +----+---+ + + | | 1 | ETT | | | | 2 | | | | | 2 | | | | | 1 | | | +----+---+ + + | | 1 | Ready | | | | 2 | | | | | 2 | | | | | 6 | | | +----+---+ + + | | 1 | Abx | | | | 2 | Administere | | | | 2 | d | | | | 7 | | | +----+---+ + + | | 1 | Timeout | | | | 2 | | | | | 4 | | | | | 1 | | | +----+---+ + + | | 1 | Incision | | | | 2 | | | | | 4 | | | | | 3 | | | +----+---+ + + | | 1 | Quick Note | OG tube removed per surgeon request | | | 3 | | | | | 3 | | | | | 1 | | | +----+---+ + + | | 1 | Quick Note | OGT placed by Dr Norton, methylene blue injected through OGT | | | 4 | | | | | 4 | | | | | 4 | | | +----+---+ + + | | 1 | Surgery end | | | | 5 | | | | | 0 | | | | | 6 | | | +----+---+ + + | | 1 | An Extubate | Neuromuscular function Intact. Pharynx suctioned. Patient obeys | | | 5 | | commands. Adequate pulmonary mechanics. | | | 0 | | | | | 9 | | | +----+---+ + + | | 1 | an stop | | | | 5 | data | | | | 1 | | | | | 2 | | | +----+---+ + + | | 1 | PACU Rpt | | | | 5 | Given | | | | 2 | | | | | 1 | | | +----+---+ + + | | 1 | Anesthesia | | | | 5 | End | | | | 2 | | | | | 1 | | | +----+---+ + + | | 1 | Post-Op | | | | 7 | Page | | | | 3 | | | | | 0 | | | +----+---+ + + +------+ | Meds | +------+ + + + | Name | Total | + + + | midazolam | 2 mg | + + + | fentaNYL | 200 mcg | + + + | lidocaine 2% | 100 mg | + + + | propofol (DIPRIVAN) 200 mg | 200 mg | + + + | rocuronium | 80 mg | + + + | succinylcholine | 140 mg | + + + | HYDROmorphone | 1 mg | + + + | neostigmine | 3 mg | + + + | glycopyrrolate | 0.4 mg | + + + | ondansetron | 4 mg | + + + | dexamethasone | 8 mg | + + + | ceFAZolin (ANCEF) injection 3 g | 3 g | + + + | dexmedetomidine (PRECEDEX) 400 | 127.76 mcg | | mcg in NaCl 0.9 % (NS) 100 mL (4 | | | mcg/mL) IV infusion | | + + + | albuterol inhaler | 8 puff | + + + | lactated ringers IV | 1,000 mL | + + + + + | Name | + + | O2 FR Avance (Total Liters) | + + | Air FR Avance (l/min) | + + | Insp Jeison | + + | Et Jeison | + + | Insp Sevo | + + | Et Sevo | + + | Insp N2O % | + + + + | No [...] +--------+ + + + | Periph | 09/24/18; 1145; Hugh Gaitan; | 09/24/18 1145 by | 09/26/18 1242 by | | eral | Right; Hand; 20 g; 09/26/18; | Gonzalez Gaitan RN | Brii Pulido RN | | IV | 1242; Discharge | | | +--------+ + + + | Urethr | 09/24/18; 1218; LAMAR NGUYEN ; 1; Shanta; | 09/24/18 1218 by | 09/24/18 1510 by | | al | 16 Fr.; 10 mL; 09/24/18; 1510 | Nora Stilse RN | Nora Stiles RN | | Cathet | | | | | er | | | | +--------+ + + + | ETT | 09/24/18; 1221 (created via | 09/24/18 1221 by | 09/24/18 151 by | | | procedure documentation); 7; | Heather Zamorano CRNA | Heather Zamorano CRNA | | | Oral; Cuffed; 09/24/18; 1512 | | | +--------+ + + + | Periph | 09/24/18; 1350; [place]; Left; | 09/24/18 1350 by | 09/26/18 1241 by | | eral | Hand; 20 g; None; No; Positive; | Heather Zamorano, EDUCATION AND TRAINING MANAGER | Brii Pulido RN | | IV | 09/26/18; 1241; Discharge | | | +--------+ + + + [...] | | 2020 | Visit | | [address] | | | | | | [place], [place] | | | | | | [address] | | | | | | [phone] | | | | | | | | +--------+ + + + + | 11/17/ | Video/TeleH | Pain Management | Florencio Lockett, | | | 2019 | ealth-Sched | | PhD [address] | | | | uled | | [place], [place] | | | | | | [address] | | | | | | [phone] | | | | | | | | +--------+ + + + + | 12/01/ | Video/TeleH | Pain Management | Florencio Lockett, | | | 2019 | ealth-Sched | | PhD [address] | | | | uled | | [place], [place] | | | | | | [address] | | | | | | [phone] | | | | | | | | +--------+ + + + + | 01/06/ | Office | Plastic Surgery | Kuldip Harrell MD | | | 2019 | Visit | | [address] | | | | | | [place], [place] | | | | | | [address] | | | | | | [phone] | | | | | | | | +--------+ + + + + documented as of this encounter Procedures + +--------+ + + + | Procedure Name | Priori | Date/Time | Associated Diagnosis | Comments | | | ty | | | | + +--------+ + + + | ANE ETT | Routin | 09/24/2018 | | Results for this | | | e | 12:52 PM | | procedure are in the | | | | PDT | | results section. | + +--------+ + + + documented in this encounter Results ETT (09/24/2018 12:52 PM PDT) + + + | Narrative | Performed At | + + + | Heather Zamorano CRNA 09/24/2018 12:52 PM AIRWAY MANAGEMENT - ETT | | | Time of Placement: 09/24/2018 12:21 PM Intubation Reason: For surgical | | | procedure Positioning: Supine Location Performed:OR | | | OXYGENATION Patient was preoxygenated Apneic oxygenation Grade: | | | Grade 0 - Ventilation by mask not attempted Manual in-Line | | | Stabilization: No Induction:Rapid sequence, with Cricoid Pressure | | | INTUBATION ATTEMPT 1 Videolaryngoscopy: Glidescope Intubation | | | Adjuncts: w/ Stylet Laryngoscopic View: Grade I Surgical Airway: no | | | Surgical Airway ETT DETAILS ETT Type:Standard, Hi-Lo Cuffed | | | Intubation Type: Oral Cuff Status: Cuffed Size: 7 ETT secured | | | with adhesive tape Depth at Lip: 22 cm Airway Leak: No | | | CONFIRMATION Number of Attempts: 1 Atraumatic placement Positive | | | for EtCO2:Waveform capnography Breath Sounds: Bilateral and equal | | | NARRATIVE Attending was physically present for the critical portions | | | of the procedure as described in the procedure note | | | Attending/Authorizing Provider: Maciel Kincaid MD Performing | | | Provider: Heather Zamorano CRNA | | + + + documented in this encounter Visit Diagnoses Not on filedocumented in this encounter Administered Medications + +--------+ +---------+------+------+ | Medication Order | MAR | Action | Dose | Rate | Site | | | Action | Date | | | | + +--------+ +---------+------+------+ | albuterol (PROVENTIL, VENTOLIN) | Given | 09/25/19 | 8 puffs | | | | 90 mcg/actuation inhaler | | 19 3:05 | | | | | INTRAPROCEDURE PRN, Starting Mon | | PM PDT | | | | | 09/24/18 at 1505, Until Mon09/24/18 | | | | | | | at 1522 | | | | | | + +--------+ +---------+------+------+ +---+---+ | | | +---+---+ + +-------+ +-----+---+---+ | ceFAZolin (ANCEF) injection 3 g | Given | 09/25/19 | 3 g | | | | 3 g, intravenous, PREPROCEDURE | | 19 12:27 | | | | | ONCE, 1 dose, Starting 09/24/18 | | PM PDT | | | | | at 1046, Until 09/24/18 at | | | | | | | 1227 | | | | | | + +-------+ +-----+---+---+ +---+---+ | | | +---+---+ + +-------+ +------+---+---+ | dexamethasone (DECADRON) | Given | 09/25/19 | 8 mg | | | | injection intravenous, | | 19 12:30 | | | | | INTRAPROCEDURE PRN, Starting Mon | | PM PDT | | | | | 09/24/18 at 1230, Until Mon09/24/18 | | | | | | | at 1512 | | | | | | + +-------+ +------+---+---+ +---+---+ | | | +---+---+ + +---------+ + +--------+---+ | dexmedetomidine (PRECEDEX) 400 | New Bag | 09/25/19 | 0.4 | 16.81 | | | mcg in NaCl 0.9 % (NS) 100 mL (4 | | 19 12:51 | mcg/kg/h | mL/hr | | | mcg/mL) IV infusion | | PM PDT | r | | | | INTRAPROCEDURE CONTINUOUS PRN, | | | | | | | Starting 09/24/18 at 1251, | | | | | | | Until Mon09/24/18 at 1512 | | | | | | + +---------+ + +--------+---+ +---+---+ | | | +---+---+ + +-------+ +--------+---+---+ | fentaNYL (SUBLIMAZE) injection | Given | 09/25/19 | 50 mcg | | | | intravenous, INTRAPROCEDURE PRN, | | 19 3:01 | | | | | Starting Mon09/24/18 at 1219, | | PM PDT | | | | | Until Mon09/24/18 at 1512 | | | | | | + +-------+ +--------+---+---+ +-------+ +---------+---+---+ | Given | 09/25/19 | 50 mcg | | | | | 19 12:50 | | | | | | PM PDT | | | | +-------+ +---------+---+---+ | Given | 09/25/19 | 100 mcg | | | | | 19 12:19 | | | | | | PM PDT | | | | +-------+ +---------+---+---+ +---+---+ | | | +---+---+ + +-------+ +--------+---+---+ | glycopyrrolate (ROBINUL) | Given | 09/25/19 | 0.4 mg | | | | injection INTRAPROCEDURE PRN, | | 19 2:45 | | | | | Starting Mon09/24/18 at 1445, | | PM PDT | | | | | Until Mon09/24/18 at 1512 | | | | | | + +-------+ +--------+---+---+ +---+---+ | | | +---+---+ + +-------+ +--------+---+---+ | HYDROmorphone (DILAUDID) | Given | 09/25/19 | 0.5 mg | | | | injection intravenous, | | 19 3:03 | | | | | INTRAPROCEDURE PRN, Starting Mon | | PM PDT | | | | | 09/24/18 at 1430, Until Mon09/24/18 | | | | | | | at 1512 | | | | | | + +-------+ +--------+---+---+ +-------+ +--------+---+---+ | Given | 09/25/19 | 0.5 mg | | | | | 19 2:30 | | | | | | PM PDT | | | | +-------+ +--------+---+---+ +---+---+ | | | +---+---+ + + + +---+---+---+ | lactated ringers IV 10 mL/hr, | given by | 09/25/19 | | | | | intravenous, PROCEDURE | | 19 1:01 | | | | | CONTINUOUS, Starting Mon09/24/18 | anesthes | PM PDT | | | | | at 1100, Until Mon09/24/18 at 1834 | iology | | | | | + + + +---+---+---+ +---------+ +---+---+---+ | New Bag | 09/25/19 | | | | | | 19 11:59 | | | | | | AM PDT | | | | +---------+ +---+---+---+ +---+---+ | | | +---+---+ + +-------+ +--------+---+---+ | lidocaine PF (XYLOCAINE MPF) 20 | Given | 09/25/19 | 100 mg | | | | mg/mL (2 %) injection | | 19 12:19 | | | | | INTRAPROCEDURE PRN, Starting Mon | | PM PDT | | | | | 09/24/18 at 1219, Until 09/24/18 | | | | | | | at 1512 | | | | | | + +-------+ +--------+---+---+ +---+---+ | | | +---+---+ + +-------+ +------+---+---+ | midazolam (PF) (VERSED) | Given | 09/25/19 | 2 mg | | | | injection intravenous, | | 19 12:00 | | | | | INTRAPROCEDURE PRN, Starting Mon | | PM PDT | | | | | 09/24/18 at 1200, Until 09/24/18 | | | | | | | at 1512 | | | | | | + +-------+ +------+---+---+ +---+---+ | | | +---+---+ + +-------+ +------+---+---+ | neostigmine (PROSTIGMIN) | Given | 09/25/19 | 3 mg | | | | injection intravenous, | | 19 2:45 | | | | | INTRAPROCEDURE PRN, Starting Mon | | PM PDT | | | | | 09/24/18 at 1445, Until Mon09/24/18 | | | | | | | at 1512 | | | | | | + +-------+ +------+---+---+ +---+---+ | | | +---+---+ + +-------+ +------+---+---+ | ondansetron (ZOFRAN) injection | Given | 09/25/19 | 4 mg | | | | intravenous, INTRAPROCEDURE PRN, | | 19 2:45 | | | | | Starting 09/24/18 at 1445, | | PM PDT | | | | | Until Mon09/24/18 at 1512 | | | | | | + +-------+ +------+---+---+ +---+---+ | | | +---+---+ + +---------+ +--------+---+---+ | propofol (DIPRIVAN) 200 mg | New Bag | 09/25/19 | 200 mg | | | | intravenous, INTRAPROCEDURE | | 19 12:19 | | | | | CONTINUOUS PRN, Starting Mon | | PM PDT | | | | | 09/24/18 at 1219, Until 09/24/18 | | | | | | | at 1512 | | | | | | + +---------+ +--------+---+---+ +---+---+ | | | +---+---+ + +-------+ +-------+---+---+ | rocuronium (ZEMURON) injection | Given | 09/25/19 | 10 mg | | | | intravenous, INTRAPROCEDURE PRN, | | 19 2:02 | | | | | Starting 09/24/18 at 1239, | | PM PDT | | | | | Until 09/24/18 at 1512 | | | | | | + +-------+ +-------+---+---+ +-------+ +-------+---+---+ | Given | 09/25/19 | 20 mg | | | | | 19 1:34 | | | | | | PM PDT | | | | +-------+ +-------+---+---+ | Given | 09/25/19 | 50 mg | | | | | 19 12:39 | | | | | | PM PDT | | | | +-------+ +-------+---+---+ +---+---+ | | | +---+---+ + +-------+ +--------+---+---+ | succinylcholine (ANECTINE) | Given | 09/25/19 | 140 mg | | | | injection intravenous, | | 19 12:19 | | | | | INTRAPROCEDURE PRN, Starting Mon | | PM PDT | | | | | 09/24/18 at 1219, Until 09/24/18 | | | | | | | at 1512 | | | | | | + +-------+ +--------+---+---+ +---+---+ | | | +---+---+ documented in this encounter"
--- OUTSIDE RECORDS SUMMARY | ~2019-11-06 | XMS | Encounter Summary ---
Demographics + + + | Address | [address] | | | [place] [address] | + + + | Home Phone [...] Team Providers + +------+ + | Care Watch Mechanic Name | Role | Phone | + +------+ + | Alisha Stovall PA-C | PCP | | + +------+ + Encounter Details +--------+ + + + + | Date | Type | Department | Care Team | Description | +--------+ + + + + | 08/29/ | MyChart | Digestive Health | Kenan Norton, | RE: < No Subject> | | 2019 | Encounter | [facility] at [facility] [address] | MD [address] | | | | | [address] | [facility] [place] | | | | | for Health and | [address] | | | | | Healing, [address] | [phone] | | | | | [place], [place] | | | | | | [address] | | | | | | | [...] [address] | | | | | | [place], [place] | | | | | | [address] | | | | | | [phone] | | | | | | | | +--------+ + + + + | 11/17/ | Video/TeleH | Pain Management | Florencio Lockett, | | | 2019 | ealth-Sched | | PhD [address] | | | | uled | | [place], [place] | | | | | | [address] | | | | | | [phone] | | | | | | | | +--------+ + + + + | 12/01/ | Video/TeleH | Pain Management | Florencio Lockett, | | | 2019 | ealth-Sched | | PhD [address] | | | | uled | | [place], [place] | | | | | | [address] | | | | | | [phone] | | | | | | | | +--------+ + + + + | 01/06/ | Office | Plastic Surgery | Kuldip Harrell MD | | | 2019 | Visit | | [address] | | | | | | [place], [place] | | | | | | [address] | | | | | | [phone] | | | | | | | | +--------+ + + + + documented as of this encounter Visit Diagnoses + + | Diagnosis | + + | S/P gastric bypass - Primary Bariatric surgery status | + + | S/P gastrostomy tube (G tube) placement, follow-up exam Follow-up examination, | | following other surgery | + + | Nausea with dry heaving Nausea alone | + + | Chronic constipation Unspecified constipation | + + | Inadequate oral intake Other symptoms concerning nutrition, metabolism, and | | development | + + | Dehydration | + + | Poor nutrition Unspecified protein-calorie malnutrition | + + | Impaired intestinal absorption Unspecified intestinal malabsorption | + + documented in this encounter"
--- OUTSIDE RECORDS SUMMARY | ~2019-11-06 | XMS | Encounter Summary ---
Demographics + + + | Address | [address] | | | [place] [address] | + + + | Home Phone | | + + + | Preferred Language | Unknown | + + + | Marital Status | | + + + | Anabaptist Affiliation | NRP | + + + | Race | White | + + + | Ethnic Group | Not or | + + + Author + + + | Author | [facility] | + + + | Organization | [facility] | + + + | Address | Unknown | + + + | Phone | Unavailable | + + + Support + + +---------+ + | Name | Relationship | Address | Phone | + + +---------+ + | Jeovanny Hernández | ECON | Unknown | | + + +---------+ + Care Team Providers + +------+ + | Care Tugboat Dispatcher Name | Role | Phone | + +------+ + | Alisha Stovall PA-C | PCP | | + +------+ + Encounter Details +--------+ + + + + | Date | Type | Department | Care Team | Description | +--------+ + + + + | 12/27/ | Orders Only | Digestive Health | Jody Watson ACNP | | | 2019 | | Center at [facility] [address] | [address] | | | | | [address] [facility] | [place], | | | | | for Health and | [place] [address] | | | | | [place], [facility] | [phone] | | | | | [place], [place] | | | | | | [address] | | | | | | [phone] | | | +--------+ + + + [...] [address] | | | | | | [place], [place] | | | | | | [address] | | | | | | [phone] | | | | | | | | +--------+ + + + + | 11/17/ | Video/TeleH | Pain Management | Florencio Lockett, | | | 2019 | ealth-Sched | | PhD [address] | | | | uled | | [place], [place] | | | | | | [address] | | | | | | [phone] | | | | | | | | +--------+ + + + + | 12/01/ | Video/TeleH | Pain Management | Florencio Lockett, | | | 2019 | ealth-Sched | | PhD [address] | | | | uled | | [place], [place] | | | | | | [address] | | | | | | [phone] | | | | | | | | +--------+ + + + + | 01/06/ | Office | Plastic Surgery | Kuldip Harrell MD | | | 2019 | Visit | | [address] | | | | | | [place], [place] | | | | | | [address] | | | | | | [phone] | | | | | | | | +--------+ + + + + documented as of this encounter Visit Diagnoses Not on filedocumented in this encounter"
--- OUTSIDE RECORDS SUMMARY | ~2019-11-06 | XMS | Encounter Summary ---
Demographics + + + | Address | [address] | | | [place] [address] | + + + | Home Phone | | + + + | Preferred Language | Unknown | + + + | Marital Status | | + + + | Alevism Affiliation | Unknown | + + + | Race | Unknown | + + + | Ethnic Group | Unknown | + + + Author + + + | Author | [facility] | | | and [place] | + + + | Organization | [facility] | | | [...] [place], | | | | | [place] [address] | | + + + + + Care Team Providers + +------+ + | Care Technician Submarine Cable Equipment Name | Role | Phone | + [...] | | [address] | [address] | | | | [address] | [place], | | | | | [place], [place] | [place] [address] | | | | | [address] | [phone] | | | | | [phone] | | | +--------+ + + + [...] | Visit | | [address] | | | | | | [place] | | | | | | [address] | | | | | | [phone] | | | | | | | | +--------+---------+ + + + | 11/25/ | Office | Cardiology | Katheryn Hammonds DO | | | 2019 | Visit | | [address] | | | | | | [place] | | | | | | [address] | | | | | | | [...] | A Edmundo: 0.55 m/s MV Dec Campbell: 3.60 m/s2 MV DecT: 218.00 ms | [...] TR Vmax: 2.04 m/s | | | Bath Solution Maker: JAKE Authenticated by: Brooke Campbell Report Date/Time: | | | 02-22-2018 20:34:39 | | + + + + + | Procedure Note | + + | Rojelio Page Conversion - 12/13/2018 5:10 PM PDT Patient Name: Chan Anna of | | : 1990 Performing Physician: Brooke | | [facility] INDICATIONS------ | | -----Chest pain, Edema, Bariatric [...] cmLVPWd: 0.99 cmLVOT Area: | | 4.04 [id number] Diam: 2.26 cm%FS: 29.98 %EF(Teich): 56.59 %ESV(Teich): [...] | Index (A-L): 17.34 ml/m2LAAs A2C: 19.05 [id number] A-L A2C: 55.38 mlLALs A2C: 5.56 | | cmLAAs A4C: 13.87 [id number] A-L A4C: 35.36 mlLALs A4C: 4.62 cmRAAs: 13.39 | | [id number] A-L: 32.25 mlRAESV MOD: 31.42 mlRALs: 4.71 cmTAPSE: 2.73 cmAV maxPG: | | 7.37 mmHgAV meanP.91 mmHgAV Vmax: 1.35 m/Abe Vmean: 0.92 m/Abe VTI: 24.65 | | cmAVA Vmax: 3.79 cm2AVA (VTI): 4.08 cw8TNPX maxP.51 mmHgLVOT meanP.19 | | mmHgLVSI Dopp: 35.92 ml/m2LVSV Dopp: 100.60 mlLVOT Vmax: 1.27 m/sLVOT Vmean: | | 0.81 m/sLVOT VTI: 24.88 cmMV A Edmundo: 0.55 m/sMV Dec Campbell: 3.60 m/s2MV DecT: | | 218.00 msMV E Edmundo: 0.78 m/sMV E/A Ratio: 1.40MV PHT: 63.22 msMVA By PHT: 3.47 | | nz7Bbomdm e': 0.08 m/sSeptal E/e': 8.76Lateral e': 0.11 m/sLateral E/e': | | 6.67RAP: 5 mmHgRVSP: 21.75 mmHgTR maxP.75 mmHgTR Vmax: 2.04 m/s | | Bath Solution Maker: GUIDOuthenticated by: Brooke Ellis Date/Time: 02-22-2018 20:34:39 [...] A Edmundo: 0.55 m/s | |MV Dec Campbell: 3.60 m/s2 | |MV DecT: 218.00 ms [...] |TR Vmax: 2.04 m/s | | | |Bath Solution Maker: JAKE | |Authenticated by: Brooke Campbell | [...]
--- OUTSIDE RECORDS SUMMARY | ~2019-11-06 | XMS | Encounter Summary ---
Demographics + + + | Address | [address] | | | [place] [address] | + + + | Home Phone [...] Team Providers + +------+ + | Care Asp Net Developer Name | Role | Phone | + +------+ + | Alisha Stovall PA-C | PCP | | + +------+ + Encounter Details +--------+ + + + + | Date | Type | Department | Care Team | Description | +--------+ + + + + | 09/24/ | Procedure | 6A Intra Op 3181 | | | | 2019 | Pass | [address] | | | | | | [facility] | | | | | | Hospital Admitting | | | | | | Desk Located on the | | | | | | 9th floor | | | | | | [place], [place] | | | | | | [address] | | | +--------+ + + + [...] [address] | | | | | | [place], [place] | | | | | | [address] | | | | | | [phone] | | | | | | | | +--------+ + + + + | 11/17/ | Video/TeleH | Pain Management | Florencio Lockett, | | | 2019 | ealth-Sched | | PhD [address] | | | | uled | | [place], [place] | | | | | | [address] | | | | | | [phone] | | | | | | | | +--------+ + + + + | 12/01/ | Video/TeleH | Pain Management | Florencio Lockett, | | | 2019 | ealth-Sched | | PhD [address] | | | | uled | | [place], [place] | | | | | | [address] | | | | | | [phone] | | | | | | | | +--------+ + + + + | 01/06/ | Office | Plastic Surgery | Kuldip Harrell MD | | | 2020 | Visit | | [address] | | | | | | [place], [place] | | | | | | [address] | | | | | | [phone] | | | | | | | | +--------+ + + + + documented as of this encounter Visit Diagnoses Not on filedocumented in this encounter"
--- OUTSIDE RECORDS SUMMARY | ~2019-11-06 | XMS | Encounter Summary ---
Demographics + + + | Address | [address] | | | [place] [address] | + + + | Home Phone | | + + + | Preferred Language | Unknown | + + + | Marital Status | | + + + | Baptist Affiliation | NRP | + + + [...] Team Providers + +------+ + | Care Tuyere Fitter Name | Role | Phone | + [...] | | | Surg Chh2 | Chh2 [address] | | | | | | [address] | [address] | | | | | | Ave Center | Center for | | | | | | for Health | Health and | | | | | | and Healing, | Healing, | | | | | | Building 2 | Building 2 | | | | | | [place], | [place], [place] | | | | | | [place] | [address] | | | | | | [address] | Phone: | | | | | | Phone: | [phone] | | | | | | [phone] | Fax: | | | | | | Fax: | [phone] | | | | | | [phone] | | +--------+--------+ + + + + Encounter Details +--------+---------+ + + + | Date | Type | Department | Care Team | Description | +--------+---------+ + + + | 10/13/ | Office | Digestive Health | Lisa Medina RD | Morbid obesity (HCC) | | 2018 | Visit | Center at [facility] [address] | [address] | (Primary Dx); | | | | [address] | Monse Hernandez [facility], | Diabetes mellitus | | | | for Health and | [place] [address] | treated with oral | | | | [facility] 2 | [phone] | medication (HCC) | | | | [place], [place] | | | | | | [address] | | | | | | [phone] | | | +--------+---------+ + + + [...] of Visit: 2:08 until 3:28 (80 minutes lycy-cj-hmzs with patient) SUBJECTIVE: Pt comes in with her and support dog from [employer]. Patient viewed online seminar prior to visit. [...] Eating: boredom in the evening Weight change management expert the past year: gaining. Around current weight [...] mass index is 54.39 kg/m .. Seeing COMMUNITY ORGANIZATION DIRECTOR next month, discussed 10% weight loss goal. [...] 2 pre-surgery classes. 4. Call or send Pongrhart message to dietitian with any questions. Contact information was provided. Follow up with dietitian 1-2 weeks after surgery at first post-op visit. Lisa Medina RD, [facility], [facility] Bariatrics [phone] documented in this enco unter Plan of Treatment +--------+ + + + + | Date | Type | Specialty | Care Team | Description | +--------+ + + + + | 11/13/ | Office | Gastroenterology | Cassidy Schneider, | | 2019 | Visit | | [address] | | | | | | [place], [place] | | | | | | [address] | | | | | | [phone] | | | | | | | | +--------+ + + + + | 11/17/ | Video/TeleH | Pain Management | Florencio Lockett, | | 2019 | ealt-Sched | | PhD [address] | | | | uled | | [place], [place] | | | | | | [address] | | | | | | [phone] | | | | | | | | +--------+ + + + + | 12/01/ | Video/TeleH | Pain Management | Florencio Lockett, | | | 2019 | ealth-Sched | | PhD [address] | | | | uled | | [place], [place] | | | | | | [address] | | | | | | [phone] | | | | | | | | +--------+ + + + + | 01/06/ | Office | Plastic Surgery | Kuldip Harrell MD | | | 2019 | Visit | | [address] | | | | | | [place], [place] | | | | | | [address] | | | | | | [phone] | | | | | | | | +--------+ + + + + documented as of this encounter Procedures + +--------+ + + + | Procedure Name | Priori | Date/Time | Associated Diagnosis | Comments | | | ty | | | | + +--------+ + + + | MS MNT INITIAL | Routin | 10/13/2017 | [...]
--- OUTSIDE RECORDS SUMMARY | ~2019-11-06 | XMS | Encounter Summary ---
Demographics + + + | Address | [address] | | | [place] [address] | + + + | Home Phone [...] Providers + +------+ + | Care Maintenance Foreman Name | Role | Phone | + +------+ + | Alisha Stovall PA-C | PCP | | + +------+ + Encounter Details +--------+ + + + + | Date | Type | Department | Care Team | Description | +--------+ + + + + | 02/12/ | Abstract | Cardiology | Sarah Barba | | | 2018 | | Preventive at [facility] | SHANICE Villafuerte [address] | | | | | [address] | [address] [place], | | | | | [facility] | [place] [address] | | | | | and [place], | [phone] | | | | | [address] | | | | | | [place], [place] | | | | | | [address] | | | | | | [phone] | | | +--------+ + + + [...] [address] | | | | | | [place], [place] | | | | | | [address] | | | | | | [phone] | | | | | | | | +--------+ + + + + | 11/17/ | Video/TeleH | Pain Management | Florencio Lockett, | | | 2019 | ealth-Sched | | PhD [address] | | | | uled | | [place], [place] | | | | | | [address] | | | | | | [phone] | | | | | | | | +--------+ + + + + | 12/01/ | Video/TeleH | Pain Management | Florencio Lockett G, | | | 2019 | ealth-Sched | | PhD [address] | | | | uled | | [place], [place] | | | | | | [address] | | | | | | [phone] | | | | | | | | +--------+ + + + + | 01/06/ | Office | Plastic Surgery | Kuldip Harrell MD | | | 2019 | Visit | | [address] | | | | | | [place], [place] | | | | | | [address] | | | | | | [phone] | | | | | | | | +--------+ + + + + documented as of this encounter Visit Diagnoses Not on filedocumented in this encounter"
--- OUTSIDE RECORDS SUMMARY | ~2019-11-06 | XMS | Encounter Summary ---
Demographics + + + | Address | [address] | | | [place] [address] | + + + | Home Phone | | + + + | Preferred Language | Unknown | + + + | Marital Status | | + + + | Temple Affiliation | NRP | + + + [...] Providers + +------+ + | Care Neurosurgical Physician Assistant Name | Role | Phone | + +------+ + | Alisha Stovall PA-C | PCP | | + +------+ + Reason for Visit + + + | Reason | Comments | + + + | Refill Request | prochlorperazine | + + + Encounter Details +--------+--------+ + + + | Date | Type | Department | Care Team | Description | +--------+--------+ + + + | 09/04/ | Refill | Digestive Health | Reno, Kenan M, | Refill Request | | 2020 | | Center at [facility] [address] | MD [address] | (prochlorperazine ) | | | | [address] | [place], [place] | | | | | for Health and | [address] | | | | | [facility] 2 | | | | | | [place], [place] | | | | | | [address] | | | | | | | [...] | | 2020 | Visit | | [address] | | | | | | [place], [place] | | | | | | [address] | | | | | | [phone] | | | | | | | | +--------+ + + + + | 11/17/ | Video/TeleH | Pain Management | Florencio Lockett, | | | 2019 | ealth-Sched | | PhD [address] | | | | uled | | [place], [place] | | | | | | [address] | | | | | | [phone] | | | | | | | | +--------+ + + + + | 12/01/ | Video/TeleH | Pain Management | Florencio Lockett, | | | 2019 | ealth-Sched | | PhD [address] | | | | uled | | [place], [place] | | | | | | [address] | | | | | | [phone] | | | | | | | | +--------+ + + + + | 01/06/ | Office | Plastic Surgery | Kuldip Harrell MD | | 2019 | Visit | | [address] | | | | | | [place], [place] | | | | | | [address] | | | | | | [phone] | | | | | | | | +--------+ + + + + documented as of this encounter Visit Diagnoses Not on filedocumented in this encounter"
--- OUTSIDE RECORDS SUMMARY | ~2019-11-06 | XMS | Encounter Summary ---
Demographics + + + | Address | [address] | | | [place] [address] | + + + | Home Phone [...] Team Providers + +------+ + | Care Bookbinder Apprentice Name | Role | Phone | + +------+ + | Alisha Stovall PA-C | PCP | | + +------+ + Encounter Details +--------+ + + + + | Date | Type | Department | Care Team | Description | +--------+ + + + + | 11/14/ | MyChart | Digestive Health | Jody Watson ACNP | RE: medicine | | 2018 | Encounter | Center at [place] [address] | [address] | | | | | [address] [facility] | Monse Hernandez [place], | | | | | for Health and | [place] [address] | | | | | [facility], [address] | [phone] | | | | | [place], [place] | | | | | | [address] | | | | | | [phone] | | | +--------+ + + + [...] [address] | | | | | | [place], [place] | | | | | | [address] | | | | | | [phone] | | | | | | | | +--------+ + + + + | 11/17/ | Video/TeleH | Pain Management | Florencio Lockett, | | | 2019 | ealth-Sched | | PhD [address] | | | | uled | | [place], [place] | | | | | | [address] | | | | | | [phone] | | | | | | | | +--------+ + + + + | 12/01/ | Video/TeleH | Pain Management | Florencio Lockett G, | | | 2019 | ealth-Sched | | PhD [address] | | | | uled | | [place], [place] | | | | | | [address] | | | | | | [phone] | | | | | | | | +--------+ + + + + | 01/06/ | Office | Plastic Surgery | Kuldip Harrell MD | | | 2019 | Visit | | [address] | | | | | | [place], [place] | | | | | | [address] | | | | | | [phone] | | | | | | | | +--------+ + + + + documented as of this encounter Visit Diagnoses Not on filedocumented in this encounter"
--- OUTSIDE RECORDS SUMMARY | ~2019-11-06 | XMS | Encounter Summary ---
Demographics + + + | Address | [address] | | | [place] [address] | + + + | Home Phone | | + + + | Preferred Language | Unknown | + + + | Marital Status | | + + + | Cheondoism Affiliation | Unknown | + + + | Race | Unknown | + + + | Ethnic Group | Unknown | + + + Author + + + | Author | [facility] | | | and [place] | + + + | Organization | [facility] | | [...] [place], | | | | | [place] [address] | | + + + + + Care Team Providers + +------+ + | Care Studio Operations Manager Name | Role | Phone | [...] Medication Refill | | 2020 | | [facility] | Matt, CAGE CLERK [address] | | | | | CL[address] | [address] [facility], | | | | | [address] [place], | [place] [address] | | | | | [place] [address] | [phone] | | | | | [phone] | | | +--------+--------+ + + + [...] - 06/11/2019 8:16 AM PSTFax request from: Bi-Harned topiramate (TOPAMAX) 50 MG tablet Last fill date: 04/29/2019 8: 17 AM PSTdocumented in this encounter Plan of Treatment +--------+---------+ + + + | Date | Type | Specialty | Care Team | Description | +--------+---------+ + + + | 11/18/ | Office | Neurology | Shirley Murdock NP | | 2019 | Visit | | [address] | | | | | | [place] | | | | | | [address] | | | | | | [phone] | | | | | | | | +--------+---------+ + + + | 11/25/ | Office | Cardiology | Katheryn Hammonds DO | | | 2019 | Visit | | [address] | | | | | | [place] | | | | | | [address] | | | | | | | [...]
--- OUTSIDE RECORDS SUMMARY | ~2019-11-06 | XMS | Encounter Summary ---
Demographics + + + | Address | [address] | | | [place] [address] | + + + | Home Phone | | + + + | Preferred Language | Unknown | + + + | Marital Status | | + + + | Protestant Affiliation | Unknown | + + + | Race | Unknown | + + + | Ethnic Group | Unknown | + + + Author + + + | Author | [facility] | | | and [place] | + + + | Organization | [facility] | | | [...] [place], | | | | | [place] [address] | | + + + + + Care Team Providers + +------+ + | Care Pit Slagman Name | Role | Phone | + +------+ + | Alisha Stovall | PCP | | | PA-C | | | + +------+ + Reason for Visit +--------+ + | Reason | Comments | +--------+ + | Other | 2 week event monitor | +--------+ + Evaluate & Treat (Routine) +--------+--------+ + + + + | Status | Reason | Specialty | Diagnoses / | Referred By | Referred To | | | | | Procedures | Contact | Contact | +--------+--------+ + + + + | Closed | | Cardiology | Diagnoses | Hammonds, | Hussain | | | | | Cardiac | DO Katheryn | Cardiology | | | | | arrhythmia, | [address] | | | | | unspecified | [address] | [address] | | | | | 2 week f/u | [address] [address] | [place] | | | | | Procedures | [place], [place] | [address] | | | | | [place] XTR[place] | [address] | [place] | | | | | ACTIVTD ECG | Phone: | [address] | | | | | DWNLD W/R&I | [phone] | Phone: | | | | | </30 DAYS | Fax: | [phone] | | | | | UT EXT | [phone] | Fax: | | | | | ECG,PT | | [phone] | | | | | DEMAND | | | | | | | EVENT, SYMPT | | | | | | | MEMORY | | | | | | | LOOP, RECORD | | | | | | | UT XTRNL | | | | | | | MOBILE CV | | | | | | | TELEMETRY | | | | | | | W/I&REPORT | | | | | | | 30 DAYS | | | | | | | CLINICAL | | | | | | | SUPPORT | | | +--------+--------+ + + + + Encounter Details +--------+ + + + + | Date | Type | Department | Care Team | Description | +--------+ + + + + | 07/07/ | Clinical | [facility] | Katheryn Hammonds DO | Cardiac arrhythmia, | | 2019 | Support | CARDIOLOGY [place] | [address] | unspecified cardiac | | | | [address] | [place], [place] | arrhythmia type | | | | [place] [address] | [address] | | | | | [place] | | | | | | [address] | | | | | | [phone] | | | +--------+ + + + [...] documented as of this encounter Progress Notes Luzmaria Obrien CMA - 07/08/2019 1:15 PM PDT30 day cardiac event monitor placed on patie nt. EOB/Billing information discussed. Instructions given and understood.Electronically sign ed by Luzmaria Obrien CMA at 07/08/2019 1:58 PM PDTdocumented in this encounter Plan of Treatment +--------+---------+ + + + | Date | Type | Specialty | Care Team | Description | +--------+---------+ + + + | 11/18/ | Office | Neurology | Shirley Murdock NP | | 2019 | Visit | | [address] [place] [address] | | | | | | [place] | | | | | | [address] | | | | | | [phone] | | | | | | | | +--------+---------+ + + + | 11/25/ | Office | Cardiology | Katheryn Hammonds DO | | 2019 | Visit | | [address] | | | | | | [place] | | | | | | [address] | | | | | | | | +--------+---------+ + + + documented as of this encounter Visit Diagnoses + + | Diagnosis | + + | Cardiac arrhythmia, unspecified cardiac arrhythmia type | + + documented in this encounter"
--- OUTSIDE RECORDS SUMMARY | ~2019-11-06 | XMS | Encounter Summary ---
Demographics + + + | Address | [address] | | | [place] [address] | + + + | Home Phone | | + + + | Preferred Language | Unknown | + + + | Marital Status | | + + + | Yarsani Affiliation | NRP | + + + | Race | White | + + + | Ethnic Group | Not or | + + + Author + + + | Author | [facility] | + + + | Organization | [facility] | + + + | Address | Unknown | + + + | Phone | Unavailable | + + + Support + + +---------+ + | Name | Relationship | Address | Phone | + + +---------+ + | Jeovanny Hernández | ECON | Unknown | | + + +---------+ + Care Team Providers + +------+ + | Care Water Filter Cleaner Name | Role | Phone | + [...] | | | | cholecystiti | [place] | [address] | | | | | s | SURGICAL | [address] | | | | | Procedures | CLINIC [address] | for Health | | | | | [place] | [address] | and Healing, | | | | | ESOPHAGEAL | AVE | [address] | | | | | MOTILITY | [place], | [place], [place] | | | | | STUDY | [place] [address] | [address] | | | | | W/INTERP AND | Phone: | Phone: | | | | | REPORT | [phone] | [phone] | | | | | | Fax: | Fax: | | | | | | [phone] | [phone] | +--------+--------+ + + + + Encounter [...] | | | for Health and | [place] | | | | | [address], [address] | [address] | | | | | [place], [place] | [phone] | | | | | [address] | (Fax) | | | | | [phone] | | | +--------+---------+ + + + [...] Physical Consultation Date: 02/20/2018 Consulting Attending: Katlyn Wheeler MD Referring Physician: Ancelmo Whitlock MD REASON [...] 3-4 years. It is associated with nausea. Newberry oscar factors include eating and drinking. She [...] her BMI, she was referred to [facility] for consideration for cholecystectomy. She says she [...] Used Alcohol use No FAMILY HISTORY: No [place], stroke, DMII Maternal grandfather colon cancer 75 [...] Doxycycline Rash Percocet [Oxycodone-Acetaminophen] Nausea and Vomiting [place] Oil Hives and Nausea and Vomiting Seroquel [...] She acknowledged understanding. Katlyn Wheeler MD [facility] General Surgery documented in this e ncounter Plan of Treatment +--------+ + + + + | Date | Type | Specialty | Care Team | Description | +--------+ + + + + | 11/13/ | Office | Gastroenterology | Cassidy Schneider, | | | 2019 | Visit | | [address] | | | | | | [place], [place] | | | | | | [address] | | | | | | [phone] | | | | | | | | +--------+ + + + + | 11/17/ | Video/TeleH | Pain Management | Florencio Lockett, | | | 2019 | ealth-Sched | | PhD [address] | | | | uled | | [place], [place] | | | | | | [address] | | | | | | [phone] | | | | | | | | +--------+ + + + + | 12/01/ | Video/TeleH | Pain Management | Florencio Lockett G, | | | 2019 | ealth-Sched | | PhD [address] | | | | uled | | [place], [place] | | | | | | [address] | | | | | | [phone] | | | | | | | | +--------+ + + + + | 01/06/ | Office | Plastic Surgery | Kuldip Harrell MD | | | 2019 | Visit | | [address] | | | | | | [place], [place] | | | | | | [address] | | | | | | [phone] | | | | | | | | +--------+ + + + + documented as of this encounter Visit Diagnoses + + | Diagnosis | + + | Biliary colic - Primary Calculus of gallbladder without mention of cholecystitis or | | obstruction | + + documented in this encounter
--- OUTSIDE RECORDS SUMMARY | ~2019-11-06 | XMS | Encounter Summary ---
Demographics + + + | Address | [address] | | | [place] [address] | + + + | Home Phone [...] Team Providers + +------+ + | Care Biology Internship Name | Role | Phone | + +------+ + | Alisha Stovall PA-C | PCP | | + +------+ + Encounter Details +--------+ + + + + | Date | Type | Department | Care Team | Description | +--------+ + + + + | 05/23/ | MyChart | Digestive Health | Clinic, Surgery | RE: Procedure date | | 2020 | Encounter | Center at [facility] [address] | | | | | | [address] [facility] | | | | | | for Health and | | | | | | Healing, [address] | | | | | | [place], [place] | | | | | | [address] | | | | | | [phone] | | | +--------+ + + + [...] [address] | | | | | | [place], [place] | | | | | | [address] | | | | | | [phone] | | | | | | | | +--------+ + + + + | 11/17/ | Video/TeleH | Pain Management | Florencio Lockett, | | | 2019 | ealth-Sched | | PhD [address] | | | | uled | | [place], [place] | | | | | | [address] | | | | | | [phone] | | | | | | | | +--------+ + + + + | 12/01/ | Video/TeleH | Pain Management | Florencio Lockett, | | | 2019 | ealth-Sched | | PhD [address] | | | | uled | | [place], [place] | | | | | | [address] | | | | | | [phone] | | | | | | | | +--------+ + + + + | 01/06/ | Office | Plastic Surgery | Kuldip Harrell MD | | | 2019 | Visit | | [address] | | | | | | [place], [place] | | | | | | [address] | | | | | | [phone] | | | | | | | | +--------+ + + + + documented as of this encounter Visit Diagnoses Not on filedocumented in this encounter"
--- OUTSIDE RECORDS SUMMARY | ~2019-11-06 | XMS | Encounter Summary ---
Demographics + + + | Address | [address] | | | [place] [address] | + + + | Home Phone [...] Team Providers + +------+ + | Care Heel Former Name | Role | Phone | + [...] | on | Center at [facility] [address] | | | | | | [address] [facility] | | | | | | for Health and | | | | | | Healing, [address] | | | | | | [place], [place] | | | | | | [address] | | | | | | [phone] | | | +--------+ + + + [...] | | 2019 | Visit | | [address] | | | | | | [place], [place] | | | | | | [address] | | | | | | [phone] | | | | | | | | +--------+ + + + + | 11/17/ | Video/TeleH | Pain Management | Florencio Lockett, | | | 2019 | ealth-Sched | | PhD [address] | | | | uled | | [place], [place] | | | | | | [address] | | | | | | [phone] | | | | | | | | +--------+ + + + + | 12/01/ | Video/TeleH | Pain Management | Florencio Lockett, | | | 2019 | ealth-Sched | | PhD [address] | | | | uled | | [place], [place] | | | | | | [address] | | | | | | [phone] | | | | | | | | +--------+ + + + + | 01/06/ | Office | Plastic Surgery | Kuldip Harrell MD | | | 2019 | Visit | | [address] | | | | | | [place], [place] | | | | | | [address] | | | | | | [phone] | | | | | | | | +--------+ + + + + documented as of this encounter Visit Diagnoses Not on filedocumented in this encounter"
--- OUTSIDE RECORDS SUMMARY | ~2019-11-06 | XMS | Encounter Summary ---
Demographics + + + | Address | [address] | | | [place] [address] | + + + | Home Phone [...] Team Providers + +------+ + | Care Clinical Trial Leader Name | Role | Phone | + [...] | | | | | [place], | | | | | | [place] [address] | | | +--------+--------+ + + + [...] [address] | | | | | | [place], [place] | | | | | | [address] | | | | | | [phone] | | | | | | | | +--------+ + + + + | 11/17/ | Video/TeleH | Pain Management | Florencio Lockett, | | | 2019 | ealth-Sched | | PhD [address] | | | | uled | | [place], [place] | | | | | | [address] | | | | | | [phone] | | | | | | | | +--------+ + + + + | 12/01/ | Video/TeleH | Pain Management | Florencio Lockett, | | | 2019 | ealth-Sched | | PhD [address] | | | | uled | | [place], [place] | | | | | | [address] | | | | | | [phone] | | | | | | | | +--------+ + + + + | 01/06/ | Office | Plastic Surgery | Kuldip Harrell MD | | | 2020 | Visit | | [address] | | | | | | [place], [place] | | | | | | [address] | | | | | | [phone] | | | | | | | | +--------+ + + + + documented as of this encounter Visit Diagnoses Not on filedocumented in this encounter"
--- OUTSIDE RECORDS SUMMARY | ~2019-11-06 | XMS | Encounter Summary ---
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 Psych | | | | Management | Morbid | Aura, ACNP | [address] | | | | | obesity | [address] | [address] | | | | | ([facility]) | [facility] | [place] [facility] | | | | | Diabetes | Rd | Health and | | | | | mellitus | [place], [place] | Healing, | | | | | treated with | [address] | Building | | | | | oral | Phone: | 1,15th Floor | | | | | medication | [phone] | [facility] [place] | | | | | (HCC) | Fax: | [address] | | | | | Hypertension | [phone] | Phone: | | | | | , | | [phone] | | | | | unspecified | | Fax: | | | | | type | | [phone] | | | | | Asthma, | | | | | | | unspecified | | | | | | | asthma | | | | | | | severity, | | | | | | | unspecified | | | | | | | whether | | | | | | | complicated, | | | | | | | unspecified | | | | | | | whether | | | | | | | persistent | | | | | | | Gastroesopha | | | | | | | geal reflux | | | | | | | disease, | | | | | | | esophagitis | | | | | | | presence not | | | | | | | specified | | | | | | | Procedures | | | | | | | CONSULT TO | | | | | | | PAIN | | | | | | | MANAGEMENT | | | +--------+---------+ + + + + Reason for Visit [...] | [facility] | | | with 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 | | | Surg Chh2 | Chh2 [...] [address] | | | | | | [place], | [place], [place] | | | | | | [place] | [address] | | | | | | [address] | Phone: | | | | | | Phone: | | | | | | | | Fax: | | | | | | Fax: | [phone] | | | | | | [phone] | | +--------+ + + + + + Encounter Details +--------+---------+ + + + | Date | Type | Department | Care Team | Description | +--------+---------+ + + + | 11/10/ | Office | Digestive Health | Jody Watson ACNP | Morbid obesity (HCC) | | 2018 | Visit | Center at [facility] [address] | [address] | (Primary Dx); | | | | [facility] | [address] [place], | Diabetes mellitus | | | | for Health and | [place] [address] | treated with oral | | | | Healing, Building [address] | [phone] | medication ([facility]); | | | | [place], [place] | | Hypertension, | | | | [address] | | unspecified type; | | | | [phone] | | Asthma, unspecified | | | [...] | | | | | not specified; PCOS | | | | | | (polycystic ovarian | | | | | | syndrome); MEHUL | | | | | | (obstructive sleep | | | | | | apnea); Lower leg | | | | | | edema | +--------+---------+ + + + Social History [...] + + + | Blood Pressure | 137/81 | 11/10/2017 12:48 PM | | | | | PDT | | + + + + + | Pulse | 74 | 11/10/2017 12:48 PM | | | | | PDT | | + + + + + | Temperature | 36.5 C (97.7 F) | 11/10/2017 12:48 PM | | | | | PDT | | + + + + + | Respiratory Rate | 18 | 11/10/2017 12:48 PM | | | | | PDT | | + + + + + | Oxygen Saturation | - | - | | + + + + + | Inhaled Oxygen | - | - | | | Concentration | | | | + + + + + | Weight | 181.4 kg (400 lb) | 11/10/2017 12:48 PM | | | | | PDT | | + + + + + | Height | 182.9 cm (6') | 11/10/2017 12:48 PM | | | | | PDT | | + + + + + | Body Mass Index | 54.25 | 11/10/2017 12:48 PM | | | | | PDT | | + + + + + documented in this encounter Patient Instructions Patient Instructions Jody Watson ACNP - 11/10/2017 12:50 PM PDTPreoperative Evaluation for Bariatric Surgery: +patient willing and able to be compliant with post operative treatment plan + Dietitian consultation--completed + Physical therapy completed + Labs needed: PTH, Vitamin D25, Vitamin B12, Ferritin, Iron and TIBC, lipid set. Luis Enrique thibodeaux go to the 3rd floor and have these labs done. CMP, CBC 09/08 a1c 6.3% on 12/2016 + control: The patient and I discussed that fertility is MARKEDLY increased after guanako anoop due to rapid weight loss. Please consider using an effective form of control that does not have estrogen ( most control pills and the Nuva Ring have estrogen). Estroge n can be a risk factor for blood clots in legs or lungs. We do not want you to become pregna nt the first two years after surgery as it can harm the unborn baby. This is why we recommen d not getting in the first two years after bariatric surgery. The patient voiced an d understanding of the risk and counseling. + Pap test: Please have the report sent to us (not the note from your provider) + EKG: Please go to 9th floor today to get this done. + Cardiology Consult: I will refer you IF your EKG is abnormal + Pre-op Psychological Evaluation: Your referral is at [facility], the Pain Management Office w ill call you in the next week to schedule. + CPAP compliance: you will need to show CPAP compliance prior to surgery + Weight Management classes: 2 classes are required in addition to your private appointme nt with the spool carrier. These classes will be scheduled apporoximately 1 month apart to allow time for you to put the teaching into action. Please call [phone] to schedule these classes after you have had your Dietitia n Appointment + Insurance requirements: your insurance requires : 6 month evaluation period Each insurance can have different requirements. Please CHECK with your insurance company to be sure you are meeting their requirements If you have any questions please call your insurance provider or call our main office jeff kim [phone] to have us help clarify. + Recommended weight loss: Every patient has a individual weight loss target. It takes int o consideration your current weight and BMI. Your target most likely will be different than anyone elses target. If your BMI is greater than 50 then your recommended weight loss target is 10% of your cur rent weight or 40lbs for a goal of 360lbs Please contact us if you are having trouble with weight loss, we are here to help! Some people will need to lose more weight than that, in order for surgery to be safely comp leted. You can over eat ANY of the surgeries. The surgery is a tool with diet and exercise to help you obtain a healthy weight. + Sign up for [employer] so that we can communicate easily back and forth Once the above list is completed and copies have been received by our office, we will submi t for insurance authorization then schedule with the surgeon. Potential Contraindications to Bariatric Surgery Age over 69 BMI over 60 Oxygen dependence Immobility wheelchair or bed bound Cardiac issues such as ischemic heart disease as indicated on cardiac stress test or cardia c catheterization; severe or uncompensated heart failure which may be indicated by a decreas ed ejection fraction. Pulmonary issues such as untreated sleep apnea, obesity hypoventilation syndrome, severe CO PD or asthma. Liver disease such as cirrhosis, esophageal varices, or portal hypertension. Severe, untreated renal disease. Rheumatologic and other diseases requiring immune suppressant medications. Untreated or active cancer. Untreated psychological disability. If you have any of the above conditions, you may not be a candidate for bariatric surgery. Our program will perform a thorough evaluation prior to making such a determination. This evaluation may involve testing or consultations. We will make every effort to notify patien ts who are not candidates for surgery as early in the process as possible, but it is importa nt to realize that the surgeon may make that determination later in the process. Clearance for surgery by your PCP or other providers does not guarantee that the [facility]ariat[facility] Sur[facility] program will deem you a surgical candidate. documented in this encounter Progress Notes Jody Watson ACNP - 11/10/2017 12:50 PM PDT BARIATRIC SURGERY INITIAL VISIT Provider: Jody Watson, MSN, AG-ACNP, GEAR MACHINE OPERATOR Referring Provider: PCP Reason for Requested Consultation: Initial evaluation for bariatric surgery. Maria De Jesus davalos is interested in sleeve gastrectomy. BP 137/81 | Pulse 74 | Temp (Src) 36.5 C (97.7 F) (Oral) | RR 18 | Ht 1.829 m (6') | Wt 181.4 kg (400 lb) | BMI 54.25 kg/(m^2) Display Progress Note in MyChart: No History of Present Illness: Maria De Jesus Anna is a 27 y.o. female who presents with a past medical history of morbid obesity with a Body mass index is 54.25 kg/m. and associated Typ e 2 diabetes, sleep apnea, asthma, GERD (gastroesophageal reflux disease), hypertension, hyp erlipidemia and polycystic ovary disease. She has failed prior attempts at sustained dietar y/medical weight loss and desires surgical weight loss in order to "to able to loose 100-200 lbs and to get on a better diet and more active". Cutting down on soda since RD but having caffiene withdrawal Portion control needs work Not understanding counting calories PCOS weight gain dx 2 years ago [place] syndrome Previous Weight Loss Attempts: Duration of obesity: 6 years. Onset of obesity at age 21 First diet attempts at age 21 Personally initiated diets: Programmatic diets: carolyn reema, weight watchers, slimfast, alkaline, weight solu tion Provider Monitored diet: phentermine but did not work Use of Redux or Phen/fen: no Transthoracic ECHO: n/a Religion or cultural reason you would refuse blood products? no All previous chart notes from PCP reviewed, previous tests and labs reviewed. Allergies: Allergies Allergen Reactions Ibuprofen Hives Benzonatate Rash Depakote [Divalproex Sodium] Suicidal Ideation Doxycycline Rash Percocet [Oxycodone-Acetaminophen] Nausea and Vomiting [place] Oil Hives and Nausea and Vomiting Seroquel [Quetiapine Fumarate] Suicidal Ideation Medications Current Outpatient Prescriptions: ascorbic acid (vitamin C) (VITAMIN C) 500 mg oral tablet, Take 1 tablet by mouth three times daily., Disp: 270 tablet, Rfl: 0 beclomethasone (QVAR) 40 mcg/actuation inhalation aerosol, Inhale 1 puff two times daily., Disp: , Rfl: cholecalciferol (Vitamin D3) (VITAMIN D3) 2,000 unit oral capsule, Take 1 capsule by mouth once daily., Disp: 90 capsule, Rfl: 3 cyanocobalamin 1,000 mcg/mL injection solution, Inject 1,000 mcg under the skin (SUBC) ever y thirty days., Disp: , Rfl: ergocalciferol 50,000 unit oral capsule, Take 1 capsule by mouth every seven days. For 12 w eeks Indications: Vitamin D Deficiency (High Dose Therapy), Disp: 12 capsule, Rfl: 0 Ferrous Gluconate 324 mg total salt (36 mg elemental iron) oral tablet, Take 1 tablet by [facility] three times daily., Disp: 270 tablet, Rfl: 0 HYDROcodone-acetaminophen 7.5-325 mg oral tablet, Take by mouth., Disp: , Rfl: metFORMIN 1,000 mg oral tablet, Take by mouth., Disp: , Rfl: MULTIVITAMIN ORAL, Take by mouth., Disp: , Rfl: norgestimate-ethinyl estradiol (TRI-PREVIFEM (28) ORAL), Take by mouth., Disp: , Rfl: pantoprazole sodium (PANTOPRAZOLE ORAL), Take by mouth., Disp: , Rfl: propranolol 40 mg oral tablet, Take by mouth., Disp: , Rfl: riboflavin (vitamin B2) (VITAMIN B-2) 100 mg oral tablet, Take 100 mg by mouth once daily., Disp: , Rfl: topiramate 25 mg oral tablet, Take 1 tab daily for a week, then increase as instructed to 2 tabs twice a day, Disp: , Rfl: History: Past Medical History: Diagnosis Date HTN (hypertension) 2017 No past surgical history on file. Social History Social History Marital status: Spouse name: N/A Number of children: N/A Years of education: N/A Occupational History Not on file. Social History Main Topics Smoking status: Never Smoker Smokeless tobacco: Never Used Alcohol use No Drug use: No Sexual activity: Not on file Other Topics Concern Not on file Social History Narrative No narrative on file Family History Review of Systems: General: Denies symptoms of fatigue, weakness, unintentional weight loss, fevers, chills, night sweats. Neurologic: The patient denies any symptoms of neurological impairment or TIAs; denies dip lopia, dysphasia or unilateral disturbance of motor or sensory function. Denies loss of sherrill nce or vertigo, persistent headaches, numbness or paresthesias. No history of seizure disord er. Eyes/Ears/Nose/Throat: Denies visual changes, sore throat, dental pain, hoarseness, dyspha tu, oral or tongue lesions. Respiratory: Positive shortness of breath with activity but not at rest. Asthma uses daily . Denies cough or wheezing. Positive history of asthma. Yes sleep apnea, use machine. Cardiovascular: Hx pericarditis. Intermittently chest pain--anxiety, palpitations--anxiet y, syncope, orthopnea, or paroxysmal nocturnal dyspnea. Positive history of lower extremity edema. Positive hypertension. Denies hyperlipidemia. Denies CHF, ND, ischemic heart disease, DVT/PE, or pulmonary hypertension. States able to climb two flights of stairs. Family hx no ne. Gastrointestinal: Hx of stomach pain for 3 months [address] did CT negative. UGI last year a nd had start to HH. GI specialist and they are getting a new HIDA scan and it could be gallb ladder. Nausea with food. No vomiting. Denies abdominal or flank pain, anorexia, nausea or v omiting, dysphagia, change in bowel habits, black or bloody stools. Denies history of ulcers or hernias. Positive GERD, UGI last year and takes PPI once per day. Has persistent GERD. Denies history of liver disease or jaundice. Ancelmo whitlock [facility] [place] UGI Genitourinary: PCOS Denies urinary incontinence. Denies history of kidney stones.. Denies menstrual irregularity anymore, history of endometriosis or abnormal PAP's. Current method o f control is: control. Musculoskeletal: Knee and back pain. Feet pain Skin: Denies intertrigenous skin infections. Denies recent rashes, sores, or skin changes. Psychological: Positive anxiety, depression--not on medications. Denies thoughts of suicid e or hallucinations. Heme/Lymphatic: Denies history of anemia. The patient denies abnormal bruising, abnormal b leeding or enlarged lymph nodes. Metabolic: Hx of hypothyrodisim but has been off medication for 6 years. Positive history o f diabetes. Denies history of gout. OBJECTIVE BP 137/81 | Pulse 74 | Temp (Src) 36.5 C (97.7 F) (Oral) | RR 18 | Ht 1.829 m (6') | Wt 181.4 kg (400 lb) | BMI 54.25 kg/(m^2) Physical exam: General: Alert and cooperative. Neuro: Oriented x 3. CN III-XII grossly intact. No focal deficits. HEENT: Oropharynx clear without lesion or exudate. Neck: Neck supple. No adenopathy. Respiratory: Good diaphragmatic excursion. Cardiac: Regular rate and rhythm, no murmur, gallop or bruits. Extremities: none lower extremity edema. Abdomen: Obese, soft, nontender, no appreciable masses or hernia. Psych: No problems noted. Impression: Maria De Jesus Anna meets and or exceeds NIH criteria for morbid obesity with a Body mass ind ex is 54.25 kg/m. and comorbidities related to obesity including Type 2 diabetes, sleep ap yao,asthma, GERD (gastroesophageal reflux disease), hypertension, hyperlipidemia and polycy stic ovary disease, which may be improved with bariatric surgery. Records have been reviewe d from her PCM and several attempts have been made to lose weight over the past years withou t success. She qualifies for medically necessary weight loss surgery to control co-morbidit ies. She has attended the Public Informational Session in which risks and benefits of bariatric surgery were discussed. Discussion of realistic expectations of bariatric surgery was held today. A Bariatric notebook with pre-op, inter-op and post-op guidance and information was provide d for the patient today. Plan: The following plan has been provided to Maria De Jesus nAna: #morbid obesity -bmi 54, weight loss recommendation of 10% #GERD -severe GERD with PPI -has has previous UGI and seen GI MD about this -will need to see notes and upper GI images Dr. Ancelmo Whitlock Addendum: reviewed recent notes and imaging from Dr. Whitlock. UGI completed 08/03/2016 with no concerning findings. Noted mild inflammation at bottom of s tomach and the start to HH. Path negative. Neg for hpylori. Her last visit with Dr. Whitlock was 11/06/2017 for similar epigastric pain symptoms, HIDA scan had been completed in 2012 with EF 27%, but his plan was repeat the HIDA scan. Results are pending. Have disccused with Dr. Rahman. Will order ph impedence study and esophageal manometry for further work up prior to surgery. #asthma -daily inhaler # HTN -propoanolol #intermittent chest pain and hx of pericarditis -per pt report -does not see tumbling barrel painter -ekg and cards consult due to CAD risk associated with DM, HTN, MEHUL and obesity #irregular periods/ control #DM -metformin -A1C 6.3% 12/2016 #chronic FLOR -Topiramate for headaches # control -currently on oral control per pt report #anxiety Not medicated, however noticeable during visit with rapid speech and many questions Preoperative Evaluation for Bariatric Surgery: +patient willing and able to be compliant with post operative treatment plan + Dietitian consultation--completed + Physical therapy completed + Labs needed: PTH, Vitamin D25, Vitamin B12, Ferritin, Iron and TIBC, lipid set. Luis Enrique thibodeaux go to the 3rd floor and have these labs done. CMP, CBC 09/08 a1c 6.3% on 12/2016 + control: The patient and I discussed that fertility is MARKEDLY increased after guanako anoop due to rapid weight loss. Please consider using an effective form of control that does not have estrogen ( most control pills and the Nuva Ring have estrogen). Estroge n can be a risk factor for blood clots in legs or lungs. We do not want you to become pregna nt the first two years after surgery as it can harm the unborn baby. This is why we recommen d not getting in the first two years after bariatric surgery. The patient voiced an d understanding of the risk and counseling. + Pap test: Please have the report sent to us (not the note from your provider) + EKG: Please go to 9th floor today to get this done. + Cardiology Consult: will need to see cards for pre-op evaluation + Pre-op Psychological Evaluation: Your referral is at [facility], the Pain Management Office w ill call you in the next week to schedule. + CPAP compliance: you will need to show CPAP compliance prior to surgery + Weight Management classes: 2 classes are required in addition to your private appointme nt with the spool carrier. These classes will be scheduled apporoximately 1 month apart to allow time for you to put the teaching into action. Please call [phone] to schedule these classes after you have had your Dietitia n Appointment + Insurance requirements: your insurance requires : 6 month evaluation period Each insurance can have different requirements. Please CHECK with your insurance company to be sure you are meeting their requirements If you have any questions please call your insurance provider or call our main office jeff kim [phone] to have us help clarify. + Recommended weight loss: Every patient has a individual weight loss target. It takes int o consideration your current weight and BMI. Your target most likely will be different than anyone elses target. If your BMI is greater than 50 then your recommended weight loss target is 10% of your cur rent weight or 40lbs for a goal of 360lbs Please contact us if you are having trouble with weight loss, we are here to help! Some people will need to lose more weight than that, in order for surgery to be safely comp leted. You can over eat ANY of the surgeries. The surgery is a tool with diet and exercise to help you obtain a healthy weight. + Sign up for [employer] so that we can communicate easily back and forth Once the above list is completed and copies have been received by our office, we will submi t for insurance authorization then schedule with the surgeon. Potential Contraindications to Bariatric Surgery Age over 69 BMI over 60 Oxygen dependence Immobility wheelchair or bed bound Cardiac issues such as ischemic heart disease as indicated on cardiac stress test or cardia c catheterization; severe or uncompensated heart failure which may be indicated by a decreas ed ejection fraction. Pulmonary issues such as untreated sleep apnea, obesity hypoventilation syndrome, severe [place] PD or asthma. Liver disease such as cirrhosis, esophageal varices, or portal hypertension. Severe, untreated renal disease. Rheumatologic and other diseases requiring immune suppressant medications. Untreated or active cancer. Untreated psychological disability. If you have any of the above conditions, you may not be a candidate for bariatric surgery. Our program will perform a thorough evaluation prior to making such a determination. This evaluation may involve testing or consultations. We will make every effort to notify patien ts who are not candidates for surgery as early in the process as possible, but it is importa nt to realize that the surgeon may make that determination later in the process. Clearance for surgery by your PCP or other providers does not guarantee that the [facility]ariat[facility] program will deem you a surgical candidate. Jody Watson, MSN, AG-ACNP, GEAR MACHINE OPERATOR Bariatric Surgery Nurse Practitioner [facility] | [address] | [place], [place] | [address] | I have spent 95 min with this pt face to face. Over 50% of the visit was counseling on the above listed content. I have also spent > 31 min prior to this visit performing chart review of the patients prim delbert care notes, labs, imaging, and previous clinic visits to other departments over the last 2 years of documents. documented in this enco unter Plan of Treatment +--------+ + + + + | Date | Type | Specialty | Care Team | Description | +--------+ + + + + | 11/13/ | Office | Gastroenterology | Cassidy Schneider, | | | 2019 | Visit | | MD [address] | | | | | | [place], [place] | | | | | | [address] | | | | | | [phone] | | | | | | | | +--------+ + + + + | 11/17/ | Video/TeleH | Pain Management | Piyush Lockett, | | | 2019 | ealth-Sched | | PhD [address] | | | | uled | | [place], [place] | | | | | | [address] | | | | | | [phone] | | | | | | | | +--------+ + + + + | 12/01/ | Video/TeleH | Pain Management | Piyush Lockett G, | | | 2019 | ealth-Sched | | PhD [address] | | | | uled | | [facility] [place] | | | | | | [address] | | | | | | [phone] | | | | | | | | +--------+ + + + + | 01/06/ | Office | Plastic Surgery | Kuldip Harrell MD | | | 2019 | Visit | | [address] | | | | | | [place], [place] | | | | | | [address] | | | | | | [phone] | | | | | | | [...] | 12 LEAD ECG | Routin | 11/10/2017 | Morbid obesity | Results for this | | | e | 2:37 PM | (HCC) Diabetes | procedure are in the | | | | PDT | mellitus treated | results section. | | | | | with oral medication | | | | | | ([facility]) | | | | | | Hypertension, [...] + + documented in this encounter Results LIPID SET (TRIG, T CHOL, HDL, CALC LDL) (11/10/2017 2:57 PM PDT) + +---------+ + + + | Component | Value | Ref Range | Performed | Pathologist | | | | | At | Signature | + +---------+ + + + | CHOLESTEROL | 206 (H) | <200 mg/dL | [facility] | | | (LAB) | | | LABORATORY | | | | | | SERVICES, | | | | | | CORE | | + +---------+ + + + | TRIGLYCERID | 278 (H) | <150 mg/dL | [facility] | | | ES | | | LABORATORY | | | | | | SERVICES, | | | | | | CORE | | + +---------+ + + + | HDL | 48 | >40 mg/dL | [facility] | | [...] +---------+ + + + | LDL | 102 (H) | <100 mg/dL | [facility] | | | CHOLESTEROL | | | LABORATORY | | | , | | | SERVICES, | | | CALCULATED | | | CORE | | + +---------+ + + + | VLDL | 56 (H) | <31 mg/dL | [facility] | | | CHOLESTEROL | | | LABORATORY | | | , | | | SERVICES, | | | CALCULATED | | | CORE | | + +---------+ + + + | NON-HDL | 158 (H) | <130 mg/dL | [facility] | [...] + | Cholesterol Reference Range: Desirable: <200 | [facility] | | mg/dL Borderline High: 200 - 239 mg/dL | LABORATORY | | High: >=240 mg/dL LDL Cholesterol | SERVICES, CORE | | Reference Range: Optimal: <100 mg/dL | | | Near Optimal: 100-129 mg/dL Borderline High: 130-159 | | | mg/dL High: 160-189 mg/dL | | | Very High: >=190 mg/dL non-HDL Cholesterol Reference Range: | | | Optimal: <130 mg/dL Near Optimal: | | | 130-159 mg/dL Borderline High: 160-189 mg/dL | | | High: 190-209 mg/dL Very High: | | | >=210 mg/dL Triglyceride Reference Range: | | | Normal: <150 mg/dL Borderline High: 150-199 mg/dL | | | High: 200-499 mg/dL Very High: >=500 mg/dL | | | HDL Reference Range: High Risk: <40 mg/dL | | | Desirable: >=60 mg/dL | | + + + + + + + + | Performing | Address | City/State/Zipcode | Phone Number | | Organization | | | | + + + + + | [facility] | [address] | [place] [address] | | | SERVICES, CORE | [address] | | | + + + + + IRON AND TIBC (11/10/2017 2:57 PM PDT) + [...] | + + + + + | [facility] | [address] | [place] [address] | | | SERVICES, CORE | P[address] [...] + | [facility] | [address] | [place] [address] | | | SERVICES, CORE | [address] | | | + + + + + VITAMIN B-12 (11/10/2017 2:57 PM PDT) + +-------+ + [...] + | [facility] | [address] | [place] [address] | | | SERVICES, CORE | PARK [...] + | [facility] | [address] | [place] [address] | | | SERVICES, CORE | PARK [...] | | | LABORATORY | | | ADONAY SMITH | + + + + + + + + | Performing | Address | City/State/Zipcode | Phone Number | | Organization | | | | + + + + + | [facility] | [address] | [place] [address] | | | ADONAY SMITH | [address] | | | + + + + + 12 LEAD ECG (11/10/2017 2:37 PM PDT) + + + + + + | Component | Value | Ref Range | Performed | Pathologist | | | | | At | Signature | + + + + + + | VENTRICULAR | 72 | bpm | [facility] | | | RATE | | | OF | | | | | | CARDIOLOGY | | + + + + + + | ATRIAL RATE | 72 | ms | [facility] | | | | | | OF | | | | | | CARDIOLOGY | | + + + + + + | P-R | 153 | ms | [facility] | | | INTERVAL | | | OF | | | | | | CARDIOLOGY | | + + + + + + | P AXIS | 31 | deg | [facility] | | | | | | OF | | | | | | CARDIOLOGY | | + + + + + + | QRS | 110 | ms | [facility] | | | DURATION | | | OF | | | | | | CARDIOLOGY | | + + + + + + | QT | 424 | ms | [facility] | | | | | | OF | | | | | | CARDIOLOGY | | + + + + + + | QTC-ASHLEIGH | 463 | ms | [facility] | | | | | | OF | | | | | | CARDIOLOGY | | + + + + + + | R AXIS | 6 | deg | [facility] | | | | | | OF | | | | | | CARDIOLOGY | | + + + + + + | T AXIS | 23 | deg | [facility] | | | | | | OF | | | | | | CARDIOLOGY | | + + + + + + | ECG | Sinus rhythm | | [facility] | | | IMPRESSION | | | OF | | | | | | CARDIOLOGY | | + + + + + + | ECG | Probable left | | [facility] | | | IMPRESSION | ventricular hypertrophy- | | OF | | | | ABNORMAL ECG - | | CARDIOLOGY | | + + + + + + | ECG | Electronically signed | | [facility] | | | IMPRESSION | by: PIYUSH AN | | OF | | | | 11-11-2017 12:24:19 | | CARDIOLOGY | | + + [...] + + + + + | [facility] | [address] | [place], [place] | | | CARDIOLOGY | [address] | [address] | | + + + + + [...] presence not specified | + + | PCOS (polycystic ovarian syndrome) Polycystic ovaries | + + | MEHUL (obstructive sleep apnea) Obstructive sleep apnea (adult) (pediatric) | + + | Lower leg edema Edema | + + documented in this encounter
--- OUTSIDE RECORDS SUMMARY | ~2019-11-06 | XMS | Encounter Summary ---
Demographics + + + | Address | [address] | | | [place] [address] | + + + | Home Phone | | + + + | Preferred Language | Unknown | + + + | Marital Status | | + + + | Denominational Affiliation | Unknown | + + + | Race | Unknown | + + + | Ethnic Group | Unknown | + + + Author + + + | Author | [facility] | | | and [place] | + + + | Organization | [facility] | | | [...] [place], | | | | | [place] [address] | | + + + + + Care Team Providers + +------+ + | Care Statement Processor Name | Role | Phone | + [...] and without | [address], [place] [address] | [address] | | | | | status | [place], | Phone: | | | | | migrainosus | [place] [address] | [phone] | | | | | Procedures | Phone: | Fax: | | | | | MRI Brain w | [phone] | [phone] | | | | | wo Contrast | Fax: | | | | | | | [phone] | | +--------+--------+ + + + + [...] | | | migrainosus | [place], | [address] Phone: | | | | | | [place] | [phone] | | | | | | [address] | Fax: | | | | | | Phone: | [phone] | | | | | | [phone] | | | | | | | Fax: | | | | | | | [phone] | | +--------+ + + + + [...] | DR [address], | [place] [address] | migrainosus | | | | [place] [address] | [phone] | | | | | [phone] | | | +--------+---------+ + + + [...] You have the following tests/procedures ordered.h At [facility] Radiology : Brain MRI with and without contrast EEG routine Medication Instructions: Increase Topamax to 50 mg twice a day *Any questions, please call Dr. Joel's office at Patient advised of their right to have diagnostic testing, health care treatment, and/or se rvices at a facility other than [facility]. Preventing Migraine Headaches: Triggers Red wine is [...] it happens. Date Last Reviewed: 08/22/2017 [employer]. [address] [place] [address]. All righ ts reserved. This information is [...] Nonsteroidal anti-inflammatory drugs (such as ibuprofen, available [id number]) ? Beta-blockers ? Anticonvulsants ? Tricyclic antidepressants [...] you consume. Date Last Reviewed: 08/22/2017 [employer]. [address] [place] [address]. All righ ts reserved. This information is not intended as a substitute for professional medical care. Always follow your healthcare professional's instructions. documented in this encounter Progress Notes Caity Joel MD - 08/23/2018 11:00 AM PDT Patient: Maria De Jesus Anna Medical Record: [id number] Date of Services: 08/23/2018 Referring Doctor: Alisha Stovall PA-C Chief Complaint Patient presents with Migraine HISTORY OF PRESENT ILLNESS: The patient is a 27-year-old female who is referred to me because of migraine headaches. She has had headaches for several years. Until recently, she was under the care of a neuro logist at [facility]. However, after not showing up for [...] (TRI-PREVIFEM PO) Take by mouth. nystatin (MYCOSTATIN) 581236 UNIT/GM powder ondansetron (ZOFRAN ODT) 4 mg [...] and oriented to time, place, and person. [facility] fluent. Memory, attention, comprehension, and general [...] CEREBELLAR EXAMINATION: There is no dysmetria on mcoorr-wi-iaer test. IMPRESSION: 1. Intractable migraine without aura [...] [place] | | | | | | [address] | | | | | | [phone] | | | | | | | | +--------+---------+ + + + | 11/25/ | Office | Cardiology | Hammonds Katheryn, DO | | | 2020 | Visit | | [address] | | | | | | [place] | | | | | | [address] | | | | | | | [...]
--- OUTSIDE RECORDS SUMMARY | ~2019-11-06 | XMS | Encounter Summary ---
Demographics + + + | Address | [address] | | | [place] [address] | + + + | Home Phone [...] + + + | Author | [facility] | + + + | Organization | [facility] | + + + | Address | Unknown | + + + | Phone | Unavailable | + + + Support + + +---------+ + | Name | Relationship | Address | Phone | + + +---------+ + | Jeovanny Hernández | ECON | Unknown | | + + +---------+ + Care Team Providers + +------+ + | Care Vmware Consultant Name | Role | Phone | [...] 09/04/ | Refill | Digestive Health | Longton, Kenan M, | Refill Request | | 2020 | | Center at [facility] [address] | MD [address] | (prochlorperazine ) | | | | [address] [facility] | [place], [place] | | | | | for Health and | [address] | | | | | [facility] | | | | | | [place], [place] | | | | | | [address] | | | | | | | [...] | | 2020 | Visit | | [address] | | | | | | [place], [place] | | | | | | [address] | | | | | | [phone] | | | | | | | | +--------+ + + + + | 11/17/ | Video/TeleH | Pain Management | Florencio Lockett, | | | 2019 | ealth-Sched | | PhD [address] | | | | uled | | [place], [place] | | | | | | [address] | | | | | | [phone] | | | | | | | | +--------+ + + + + | 12/01/ | Video/TeleH | Pain Management | Florencio Lockett, | | | 2019 | ealth-Sched | | PhD [address] | | | | uled | | [place], [place] | | | | | | [address] | | | | | | [phone] | | | | | | | | +--------+ + + + + | 01/06/ | Office | Plastic Surgery | Kuldip Harrell MD | | 2019 | Visit | | [address] | | | | | | [place], [place] | | | | | | [address] | | | | | | [phone] | | | | | | | | +--------+ + + + + documented as of this encounter Visit Diagnoses Not on filedocumented in this encounter"
--- OUTSIDE RECORDS SUMMARY | ~2019-11-06 | XMS | Encounter Summary ---
Demographics + + + | Address | [address] | | | [place] [address] | + + + | Home Phone [...] + + | Author | [facility] | + + + | Organization | [facility] | + + + | Address | Unknown | + + + | Phone | Unavailable | + + + Support + + +---------+ + | Name | Relationship | Address | Phone | + + +---------+ + | Jeovanny Hernández | ECON | Unknown | | + + +---------+ + Care Team Providers + +------+ + | Care Road Roller Engineer Name | Role | Phone | + +------+ + | Alisha Stovall PA-C | PCP | | + +------+ + Reason for Referral Diagnostic Testing (Routine) +--------+--------+ + + + + | Status | Reason | Specialty | Diagnoses / | Referred By | Referred To | | | | | Procedures | Contact | Contact | +--------+--------+ + + + + | Closed | | Cardiology | Diagnoses | Jameson, | | | | | | Preop | Sarah Villafuerte, | | | | | | cardiovascul | SH[address] | | | | | | ar exam | [address] | | | | | | Chest pain, | [place], [place] | | | | | | unspecified | [address] | | | | | | type Pedal | Phone: | | | | | | edema | [phone] | | | | | | Procedures | Fax: | | | | | | TRANSTHORACI | [phone] | | | | | | C | | | | | | | ECHOCARDIOGR | | | | | | | AM, ADULT | | | +--------+--------+ + + + + Reason for Visit +--------+ + | Reason | Comments | +--------+ + | Preop | bariatri surgery clinic | +--------+ + Consultation (Routine) +--------+--------+ + + + + | Status | Reason | Specialty | Diagnoses / | Referred By | Referred To | | | | | Procedures | Contact | Contact | +--------+--------+ + + + + | Closed | | Cardiology | Diagnoses | Petfabián, | Jameson, | | | | | Morbid | DIEGO Vera | Sarah Villafuerte, | | | | | obesity | [address] | PA-C [address] | | | | | ([facility]LY [facility]) | [address] | [address] | | | | | Abnormal ECG | Rd | [facility] [place] | | | | | | [facility] [place] | [address] | | | | | Hypertension | [address] | Phone: | | | | | , | Phone: | [phone] | | | | | unspecified | [phone] | Fax: | | | | | type | Fax: | [phone] | | | | | Procedures | [phone] | | | | | | CONSULT TO | | | | | | | CARDIOLOGY | | | +--------+--------+ + + + + Encounter Details +--------+---------+ + + + | Date | Type | Department | Care Team | Description | +--------+---------+ + + + | 02/06/ | Office | Cardiology | Sarah Barba | Preop cardiovascular | | 2018 | Visit | Preventive at [facility] | SHANICE Villafuerte [address] | exam (Primary Dx); | | | | [address] | [address] [place], | Chest pain, | | | | Center for [facility] | [place] [address] | unspecified type; | | | | and Healing, | [phone] | Pedal edema | | | | [address] | | | | | | [place], [place] | | | | | | [address] | | | | | | [phone] | | | +--------+---------+ + + + [...] + + + | Blood Pressure | 137/68 | 02/06/2018 3:30 PM | | | | | PDT | | + + + + + | Pulse | 76 | 02/06/2018 3:30 PM | | | | | PDT | | + + + + + | Temperature | - | - | | + + + + + | Respiratory Rate | - | - | | + + + + + | Oxygen Saturation | 99% | 02/06/2018 3:30 PM | | | | | PDT | | + + + + + | Inhaled Oxygen | - | - | | | Concentration | | | | + + + + + | Weight | 175 kg (385 lb 12.8 | 02/06/2018 3:30 PM | | | | oz) | PDT | | + + + + + | Height | 180.3 cm (5' 11") | 02/06/2018 3:30 PM | | | | | PDT | | + + + + + | Body Mass Index | 53.81 | 02/06/2018 3:30 PM | | | | | PDT | | + + + + + documented in this encounter Patient Instructions Patient Instructions Sarah Barba PA-C - 02/06/2018 3:30 PM PDTGet chest xray toda y on 3rd floor Schedule resting echocardiogram Schedule exercise perfusion study documented in this encounter Progress Notes Sarah Barba PA-C - 02/06/2018 3:30 PM PDTReviewed results of recent CV Tests: Lexiscan Myocardial Perfusion Study ([facility]) 02/19/2018 (see media): Echocardiogram ([facility]) 02/22/2018: CHEST 2 VIEWS 02/06/2018: HISTORY: Preoperative for noncoronary cardiac surgery. COMPARISON: None. FINDINGS: The cardiomediastinal contour is normal. The lungs are clear. There is no pleural effusion or pneumothorax. There is no pulmonary edema. The bones are intact. IMPRESSION: Clear lungs. MEDICAL DECISION MAKING: Are active cardiac conditions present? No Calculate the combined surgical and patient-specific risk: RCRI risk calculator (one point for each "yes" answer) A. Elevated risk surgery?: yes B. Ischemic heart disease: no C. Compensated / prior heart failure: no D. Diabetes mellitus (treated with insulin): no E. Renal insufficiency (Cr>2): no F. Cerebrovascular disease: no Risk of MACE 0 risk factors - 0.4% 1 risk factor - 0.9% 2 risk factors - 6.6% 3 risk factors - 11% The risk of major adverse cardiac event (MACE) is: less than 1%. No further risk stratific ation for coronary disease is indicated. Surgery Specific Risk RCRI - (intraperitoneal; intrathoracic; suprainguinal vascular) Preoperative Recommendations: I reviewed the most recent resting echocardiogram and myocardial perfusion study. No eviden ce of inducible ischemia/scar and normal LVSF/RVSF. No Further risk stratification is indica nancy prior to surgery. Per Revised Cardiac Risk Index, predicted risk of perioperative cardia c morbidity/mortality is approximately 1% (considered low risk). Further cardiac interventio n would not reduce her risk. That said, the weight loss resulting from bariatric surgery malena l likely give her the most benefit in reduction of future risk. Sarah Hopkins PA-C - 02/06/2018 3:30 PM PDTFormatting of this note might be different from the orig inal. CARDIOLOGY ENCOUNTER NOTE Reason for Visit: Chief Complaint Patient presents with Preop bariatri surgery clinic This is a scheduled visit for cardiac evaluation and risk assessment History: Per chart review: Maria De Jesus Anna is a 27 y.o. White woman with history of DM, Hypertensio n, Hyperlipidemia, Asthma, Sleep Apnea on CPAP, Severe Obesity who is referred by DIEGO Plascencia for cardiac evaluation and risk assessment for bariatric surgery. Per referral notes "Patient pursuing bariatric surgery with history of hypertension and abnormal ECG showing SR with left ventricular hypertrophy. Please evaluate for risk and optimization prior to surg silvia. Thank you!" Today, Maria De Jesus denies history of coronary artery disease; denies history of myocardial infar ction. she denies history of congestive heart failure; she denies history of DVT/PE Maria De Jesus reports she gets pain in center of chest, wakes her up at nightradiates to under lef t breast and around to the side - feels like "it's inside, like someone punching my chest an d knocking the air out of you"; Gets this pain with exertion. Only happens when she sleeps o n left side. Happens every night x 6 months. Had pericarditis 2 years ago - since then has h ad this chest pain. Denies palpitations, tachycardia, paroxysmal nocturnal dyspnea, orthopne a, lower extremity edema, dizziness, syncope She reports history of some unknown diagnosis - where chest muscles hurt - was given doses of prednisone - thinks it might be costochondritis, pericarditis, tendonitis - she couldn't remember. History of Endocarditis or need for Endocarditis Prophylaxis? no History of Phen-Fen exposure? no Exercise History: Does a lot of walking (in school) - walks 3 flights of stairs - by the time she gets to the top - chest is in a lot of pain. MET ASSESSMENT: > 4 METS with exertional chest pains Various physical activities and energy consumed in METs per hour Activity METs/hr Walking slowly, less than 2 mph 2.0 Gardening, light 2.0 General house cleaning 3.0 Walking briskly, 3 mph 3.3 Heavy yard work or gardening 4.0 Climbing stairs 4.0 Water Aerobics 4.0 Bicycling, casual, less than 10 mph 4.0 Dancing (ballet or modern) 4.8 Snorkeling 5.0 Mowing the lawn with hand mower 5.5 6.0 Shoveling snow 6 Strenuous hiking 6 7 Rowing or kayaking 6 8 Skiing, downhill 6 8 Bicycling, 10 16 mph 6 10 Aerobic calisthenics 6 10 Singles tennis 7 12 Swimming, crawl, slow 8.0 Running, 8 mph 13.5 Past Medical, Family & Social Histories: Medical, Family & Social histories were reviewed and updated in EMR based on conversation w elieser Pretty, and noteable for the following: (Please see that section of the EMR for full det ails) - all reviewed with Maria De Jesus today. Past Medical History: Diagnosis Date Asthma GERD (gastroesophageal reflux disease) HTN (hypertension) 2017 LVH (left ventricular hypertrophy) Shortness of breath Sleep apnea Type 2 diabetes mellitus (HCC) Current Outpatient Prescriptions Medication Sig ascorbic acid (vitamin C) (VITAMIN C) 500 mg oral tablet Take 1 tablet by mouth three t imes daily. beclomethasone (QVAR) 40 mcg/actuation inhalation aerosol Inhale [...] Indications: Vitamin D Deficiency (High Dose Therapy) Ferrous Gluconate 324 mg total salt (36 mg elemental iron) oral tablet Take 1 tablet by mouth three times daily. HYDROcodone-acetaminophen 7.5-325 mg oral tablet Take by mouth. metFORMIN 1,000 mg oral tablet Take by mouth. MULTIVITAMIN ORAL Take by mouth. norgestimate-ethinyl estradiol (TRI-PREVIFEM (28) ORAL) Take by mouth. pantoprazole sodium (PANTOPRAZOLE ORAL) Take by mouth. propranolol 40 mg oral tablet Take by mouth. riboflavin (vitamin B2) (VITAMIN B-2) 100 mg oral tablet Take 100 mg by mouth once alan y. topiramate 25 mg oral tablet Take 1 tab daily for a week, then increase as instructed t o 2 tabs twice a day No current facility-administered medications for this visit. Family History Non contributory Social History Substance Use Topics Smoking status: Never Smoker Smokeless tobacco: Never Used Alcohol use No Review of Systems: Pertinent items are noted in HPI. General: Denies fevers, chills and sweats . Reports she is always fatigued Eyes: Denies eye pain, loss of vision, visual blurring and double vision. Ears, Nose, Throat: Denies ear pain, decreased hearing, sinus pain, pharyngitis and vertigo . Respiratory: Reports asthma is well controlled. No need for rescue inhaler. Denies cough, shortness of breath, wheezing and history of COPD. Musculoskeletal: Report scoliosis with chronic low back pain. Denies history of osteoarth ritis, history of gout, history of fibromyalgia and muscular weakness. Cardiovascular: See HPI. Gastrointestinal: Reports GERD symptoms - on medications without relief. Denies abdominal pain - has gall bladder surgery scheduled for end of the month; struggles with constipation. Denies nausea, vomiting, diarrhea Neurologic: Reports migraine headaches (on Topamax and BB - 1/week- improved). Denies trem or, seizure, history of TIA and history of CVA. Skin: Denies rash and skin infection. Psychological: Denies depression. Reports anxiety - no medications but sees Skype thertiffanie aliceat. . Heme/Lymphatic: Denies bleeding disorder, clotting disorder, abnormal bruising and abnorma l bleeding. Endocrine: Denies involuntary weight loss, involuntary weight gain, heat intolerance and cold intolerance All other systems negative. Physical Exam: Vitals reviewed and noted as: BP 137/68 | Pulse 76 | Ht 1.803 m (5' 11") | Wt 175 kg (385 lb 12.8 oz) | SpO2 99% | BMI 53 .81 kg/(m^2) Body mass index is 53.81 kg/m. Vital signs reviewed. General: comfortable, alert, cooperative, well-appearing, obese and pleasant HEENT: normal conjunctivae and anicteric sclerae, PERRLA, EOMI, oropharynx clear without l esion or exudates, normal dentition and unable to visualize fundi fully, positive red reflex bilaterally Neck: supple without restricted range of motion, thyroid symmetric & normal in size, trach ea midline and no carotid bruits. Unable to appreciate jugular venous distension or cervical lymphadenopathy due to body habitus Heart and Lung: chest is clear without rales or wheezing and respiratory effort is unlabore d, S1, S2 normal, no S3 or S4, no murmur, click, or rub , regular rate and rhythm , peripher al pulses brisk and 1 + pedal edema present, unable to palpate PMI or heaves; femoral bruit s: unable to appreciate; abdominal aortic bruits: unable to appreciate; abnormal aortic puls ations: unable to appreciate due to body habitus Abdomen/rectal: abdomen is soft, no tenderness, rebound tenderness or guarding and bowel s ounds normal; unable to appreciate masses, organomegaly or bruits due to body habitus Extremities: extremities normal without deformity, no clubbing or cyanosis Neuro: normal gait and station, reflexes normal and symmetric, cranial nerves 2-12 intact and motor 5/5 strength globally with normal tone Psych: bright affect, not apparently anxious or depressed, judgment and insight appropriat e in context of visit, apparently normal recent and remote memory and oriented to time, pl kishore and person Laboratory/Diagnostics: Per chart review, reviewed today and summarized below: Lab Results Component Value Date CHOL 206 11/10/2017 LDL 102 11/10/2017 HDL 48 11/10/2017 TRI 278 11/10/2017 No results found for: A1C No results found for: NA, K, CL, BICARB, BUN, CR, GLU, CA, ANIONGAP, ANIONALBCOR No results found for: TSH No results found for: HB, HCT, PLT, BNP Labs reviewed from Care Everywhere and summarized below: ECG 11/10/2017 - Sinus rhythm. HR 72. Probable left ventricular hypertrophy- ABNORMAL ECG ( I personally reviewed tracing) Cardiac Risk Stratification (based on 2014 ACC/AHA Guideline on Perioperative Cardiovascula r Evaluation and Management of Patients Undergoing Noncardiac Surgery): MEDICAL DECISION MAKING: Are active cardiac conditions present? No Calculate the combined surgical and patient-specific risk: RCRI risk calculator (one point for each "yes" answer) http://www.mdcalc.com/zmfrbiz-nnbjfwd-bjrz-rswnl-rfw-evrivurgb-risk/ A. Elevated risk surgery?: yes B. Ischemic heart disease: unknown - exertional chest pain, multiple risks C. Compensated / prior heart failure: unknown - severe obesity, pedal edema, sleep apnea D. Diabetes mellitus (treated with insulin): no E. Renal insufficiency (Cr>2): no F. Cerebrovascular disease: no The risk of major adverse cardiac event (MACE) is: unable to determine at this time Surgery Specific Risk RCRI - (intraperitoneal; intrathoracic; suprainguinal vascular) Assessment/Plan:: Preoperative Evaluation: Maria De Jesus Anna is a 27 y.o. White woman with history of DM, Hypertension, Hyperlipidemia, Asthma, Sleep Apnea on CPAP, Severe Obesity who is referred by DIEGO Plascencia for cardiac evaluation and risk assessment for bariatric surgery. she is undergoing intermediate risk s urgery, with an exercise tolerance of > 4 METs with symptoms of chest pain which may be sugg estive of ischemia. LVSF is unknown. Per AHA Science Advisory on Cardiovascular Evaluation and Management of Severely Obese Josselyn ents Undergoing Surgery (Circulation. 2009;120:86-95): Obesity cardiomyopathy, diabetic card iomyopathy, or chronic long-standing significant myocardial ischemia (hibernating myocardium ) may lead to heart failure in severely obese patients and should be identified before surge ry. Physical examination often underestimates cardiac dysfunction in severely obese patients . Most patients with obesity cardiomyopathy have diastolic dysfunction, but some patients ex hibit both left ventricular diastolic and systolic dysfunction. There are numerous respirato ry abnormalities associated with obesity. The obtainment of a 12-lead ECG and a chest radiog raph is reasonable in all severely obese patients under consideration for surgery. Despite her young age, she has multiple risks for CV disease and ongoing exertional chest p ain which should be evaluated prior to surgery. Given LVH, will need to avoid stress ehcocar diogram In addition, given sleep apnea, severe obesity and pedal edema, would like resting echocard iogram to assess baseline LVSF and RVSF Schedule resting echocardiogram Schedule exercise perfusion study Get chest xray today on 3rd floor I will addend note when test results back to give final preoperative recommendations - Recommend she continue all blood pressure medications perioperatively, as preventing sig nificant increases in double product or cardiac workload is gillespie in preventing perioperative cardiac complications. I discussed the implications of the preoperative evaluation with Maria De Jesus including risk stra tification. I informed her that this is an estimate of risk only based on his procedure, me dical history and testing where indicated, and not guarantee of a risk free surgery. Patient was informed that no one has zero risk. Maria De Jesus verbalized understanding of plan of care an d instructions as outlined. A report of this preoperative evaluation will be sent to PCP Alisha Monae PA-C and referring provider/surgeon DIEGO Plascencia CARDIOLOGY - PREVENTIVE [address] Mailcode: [id number] [facility] [place] [address] documented in t his encounter Plan of Treatment +--------+ + + + + | Date | Type | Specialty | Care Team | Description | +--------+ + + + + | 11/13/ | Office | Gastroenterology | Cassidy Schneider, | | | 2019 | Visit | | [address] | | | | | | [place], [place] | | | | | | [address] | | | | | | [phone] | | | | | | | | +--------+ + + + + | 11/17/ | Video/TeleH | Pain Management | Florencio Lockett, | | | 2019 | ealth-Sched | | PhD [address] | | | | uled | | [place], [place] | | | | | | [address] | | | | | | [phone] | | | | | | | | +--------+ + + + + | 12/01/ | Video/TeleH | Pain Management | Florencio Lockett, | | | 2019 | ealth-Sched | | PhD [address] | | | | uled | | [place], [place] | | | | | | [address] | | | | | | [phone] | | | | | | | | +--------+ + + + + | 01/06/ | Office | Plastic Surgery | Kuldip Harrell MD | | 2019 | Visit | | [address] | | | | | | [place], [place] | | | | | | [address] | | | | | | [phone] | | | | | | | | +--------+ + + + + + +------+--------+ + + | Name | Type | Priori | Associated Diagnoses | Order Schedule | | | | ty | | | + +------+--------+ + + | TRANSTHORACIC | ECG | Routin | Preop | Ordered: 02/06/2018 | | ECHOCARDIOGRAM, | | e | cardiovascular exam | | | ADULT | | | Chest pain, | | | | | | unspecified type | | | | | | Pedal edema | | + +------+--------+ + + | ECG TRACING FOR | ECG | Routin | Preop | Expected: 02/06/2018 | | STRESS NUCLEAR | | e | cardiovascular exam | (Approximate), | | MEDICINE | | | Chest pain, | Expires: 03/09/2019 | | | | | unspecified type | | | | | | Pedal edema | | + +------+--------+ + + documented as of this encounter Results X-RAY CHEST 2 VIEW [...] | + + | Preop cardiovascular exam - Primary Pre-operative cardiovascular examination | + + | Chest pain, unspecified type | + + | Pedal edema Edema | + + documented in this encounter
--- OUTSIDE RECORDS SUMMARY | ~2019-11-06 | XMS | Encounter Summary ---
Demographics + + + | Address | [address] | | | [place] [address] | + + + | Home Phone [...] Team Providers + +------+ + | Care Fixture Fabricator Repairer Name | Role | Phone | + [...] Request | | 2019 | | Center [place] [address] [address] | [address] | | | | | [address] [facility] | Park [facility], | | | | | for [facility] and | [place] [address] | | | | | [place] [address] | [phone] | | | | | [place], [place] | | | | | | [address] | | | | | | [phone] | | | +--------+--------+ + + + [...] [address] | | | | | | [place], [place] | | | | | | [address] | | | | | | [phone] | | | | | | | | +--------+ + + + + | 11/17/ | Video/TeleH | Pain Management | Florencio Lockett, | | | 2019 | ealth-Sched | | PhD [address] | | | | uled | | [place], [place] | | | | | | [address] | | | | | | [phone] | | | | | | | | +--------+ + + + + | 12/01/ | Video/TeleH | Pain Management | Florencio Lockett, | | | 2019 | ealth-Sched | | PhD [address] | | | | uled | | [place], [place] | | | | | | [address] | | | | | | [phone] | | | | | | | | +--------+ + + + + | 01/06/ | Office | Plastic Surgery | Kuldip Harrell MD | | | 2019 | Visit | | [address] | | | | | | [place], [place] | | | | | | [address] | | | | | | [phone] | | | | | | | | +--------+ + + + + documented as of this encounter Visit Diagnoses Not on filedocumented in this encounter"
--- OUTSIDE RECORDS SUMMARY | ~2019-11-06 | XMS | Encounter Summary ---
Demographics + + + | Address | [address] | | | [place] [address] | + + + | Home Phone [...] Team Providers + +------+ + | Care Cyber Security Consultant Name | Role | Phone | [...] GEM Chacko | | | | | [id number] | [address] | | | | | [place], | [place], [place] | | | | | [place] [address] | [address] | | | | | [phone] | [phone] | | | | | | | [...] [address] | | | | | | [place], [place] | | | | | | [address] | | | | | | [phone] | | | | | | | | +--------+ + + + + | 11/17/ | Video/TeleH | Pain Management | Florencio Lockett, | | | 2019 | ealth-Sched | | PhD [address] | | | | uled | | [place], [place] | | | | | | [address] | | | | | | [phone] | | | | | | | | +--------+ + + + + | 12/01/ | Video/TeleH | Pain Management | Florencio Lockett G, | | | 2019 | ealth-Sched | | PhD [address] | | | | uled | | [place], [place] | | | | | | [address] | | | | | | [phone] | | | | | | | | +--------+ + + + + | 01/06/ | Office | Plastic Surgery | Kuldip Harrell MD | | | 2019 | Visit | | [address] | | | | | | [place], [place] | | | | | | [address] | | | | | | [phone] | | | | | | | [...]
--- OUTSIDE RECORDS SUMMARY | ~2019-11-06 | XMS | Encounter Summary ---
Demographics + + + | Address | [address] | | | [place] [address] | + + + | Home Phone [...] Team Providers + +------+ + | Care Weaver Hand Loom Name | Role | Phone | + [...] + +--------+ + + + + | New Request | | Plastic | Diagnoses | Cierra, | Pls | | | | Surgery | S/P gastric | Kenan Santos MD | Gen/Recon | | | | | bypass | [address] | [address] | | | | | Procedures | [address] | [address] | | | | | CONSULT TO | [place], [place] | [facility] | | | SURG[facility] - | [address] | Health and | | | | | PLASTICS | Phone: | Healing, | | | | | | [phone] | Building 1, | | | | | | Fax: | 5th Floor | | | | | | [phone] | [place], [place] | | | | | | | [address] | | | | | | | Phone: | | | | | | | [phone] | + +--------+ + + + + Reason for Visit Consultation (Routine) + + + + + + + | Status | Reason | Specialty | Diagnoses / | Referred By | Referred To | | | | | Procedures | Contact | Contact | + + + + + + + | Pending | BAR: | Surgery | | Bar | Bar | | Review | Scheduled | | | Bariatri | Bariatri Surg | | | with ASSEMBLER PING PONG TABLE | | | Surg Chh2 | Chh2 [...] 2 | | | | | | [place], | [place], [place] | | | | | | [place] | [address] | | | | | | [address] | Phone: | | | | | | Phone: | [phone] | | | | | | | Fax: | | | | | | Fax: | [phone] | | | | | | [phone] | | + + + + + + + Encounter Details +--------+ + + + + | Date | Type | Department | Care Team | Description | +--------+ + + + + | 10/31/ | Video/TeleH | Digestive Health | Kenan Norton, | | | 2020 | ealth-[facility] | Center at [facility] [address] | MD [address] | | | | uljeancarlos | [address] | [facility] [place] | | | | | for Health and | [address] | | | | | Healing, Building 2 | | | | | | [place], [place] | | | | | | [address] | | | | | | | [...] encounter Progress Notes Kenan Norton MD - 11/01/2019 12:00 PM PDTThe visit took place via secure, synchronous audio and video technology with the provider virtually located at the distant site of [facility]. The patient stated they were located at the originating site of home and were in the state of [place] at the time of the virtual visit. The names of all additional persons participati ng in the virtual visit and their roles are: NA. I have spent a total of 20 minutes on this patient's care today. This time includes the vi rtual visit [id number] time with the patient as well as time spent reviewing patient recor ds, coordinating/communicating with care teams and documenting the patient visit. Bariatric Follow-up Brief Hx: Maria De Jesus Hernández is a 28F s/p LRYGB who has struggled with multiple issues post-op, includ ing po intolerances, dehydration, and constipation. She has remnant G-tube placed for supple mental feeding. Today's visit is after completing food/fluid log and to discuss removal of G -tube. Prior to visit food logs reviewed. S: Overall doing better, good days and bad days, good days more than before. She has met with Dr. Lockett and is working on eating 6 small meals per day. When she does this she has good day s. She usually gets 40-50 oz of fluid per day. She is still getting infusions from time to t rozina (1-2/week). Sometimes urine is dark and she is dizzy, but this overall is improved. She is no longer using the feeding tube, stopped night feeds weeks ago. Tube site bothers her ne vee constantly. She has pain. She is concerned about recurrent granulation tissue at the tu be site. The tube leaks often. Dry heaves occasionally, but less often. She continues to require nausea medication, but no t every day. Constipation improved with new medication prescribed by Dr. Schneider. When she takes it, she goes every day. She states that the medicine does give her crampy pain so she doesn't alway s want to take it. Her unfortunately is very sick and she is staying home to care for him. He has meta static cancer. This has been stressful to her. She is continuing with counseling, however, h er counselor left and she is upset that she can't find a regular mental health provider. Final concern is excess skin - abdomen and arms bother her significantly. Associated with p ain and sometimes rashes/yeast. She is interested in seeing plastic surgery regarding this. A/P: Maria De Jesus Hernández is a 28F s/p RYGB. She is making progress in all respects despite di fficult and stressful social situation. Based on her po logs and reported improvement, I thi nk it is reasonable to remove her G-tube. She prefers to have this done with local general s nanda, Dr. Whitlock. I called his office today and left a message. I also asked that she call to make an appointment. Continue with all other current medications and sessions with Dr. Иван hernandez. Follow-up as scheduled and PRN if ongoing or new issues develop. Plastic surgery consult regarding loose skin. Kenan Norton MD, MS Buildings And Grounds Coordinator [facility] Bariatric Surgery Dept of Surgery documented in this e ncounter Plan of Treatment +--------+ + + + + | Date | Type | Specialty | Care Team | Description | +--------+ + + + + | 11/13/ | Office | Gastroenterology | Cassidy Schneider, | | 2019 | Visit | | [address] | | | | | | [place], [place] | | | | | | [address] | | | | | | [phone] | | | | | | | | +--------+ + + + + | 11/17/ | Video/TeleH | Pain Management | Florencio Lockett, | | | 2019 | ealth-Sched | | PhD [address] | | | | uled | | [place], [place] | | | | | | [address] | | | | | | [phone] | | | | | | | | +--------+ + + + + | 12/01/ | Video/TeleH | Pain Management | Florencio Lockett, | | | 2019 | ealth-Sched | | PhD [address] | | | | uled | | [place], [place] | | | | | | [address] | | | | | | [phone] | | | | | | | | +--------+ + + + + | 01/06/ | Office | Plastic Surgery | Kuldip Harrell MD | | 2019 | Visit | | [address] | | | | | | [place], [place] | | | | | | [address] | | | | | | [phone] | | | | | | | | +--------+ + + + + documented as of this encounter Visit Diagnoses + + | Diagnosis | + + | S/P gastric bypass - Primary Bariatric surgery status | + + | S/P gastrostomy tube (G tube) placement, follow-up exam Follow-up examination, | | following other surgery | + + | Chronic constipation Unspecified constipation | + + | Nausea with dry heaving Nausea alone | + + documented in this encounter"
--- OUTSIDE RECORDS SUMMARY | ~2019-11-06 | XMS | Encounter Summary ---
Demographics + + + | Address | [address] | | | [place] [address] | + + + | Home Phone [...] Team Providers + +------+ + | Care Nutrition Worker Name | Role | Phone | + +------+ + | Alisha Stovall PA-C | PCP | | + +------+ + Reason for Visit Consultation (Routine) + +--------+ + + + [...] | | | | | dysmotility | [place], [place] | [facility] [place] | | | | | Procedures | [address] | [address] | | | | | CONSULT TO | Phone: | Phone: | | | | | GASTROENTERO | | [phone] | | | | | LOGY | Fax: | Fax: | | | | | | [phone] | [phone] | + +--------+ + + + + Encounter Details +--------+ + + + + | Date | Type | Department | Care Team | Description | +--------+ + + + + | 09/25/ | Video/TeleH | Digestive Health | Cassidy Schneider, | | | 2020 | ealth-[facility] | Center at [facility] [address] | MD [address] | | | | uljeancarlos | [address] | [place], [place] | | | | | for Health and | [address] | | | | | Healing, [address] | [phone] | | | | | [place], [place] | | | | | | [address] | | | | | | [phone] | | | +--------+ + + + [...] documented as of this encounter Progress Notes Cassidy Schneider MD - 09/26/2019 1:00 PM PDTFormatting of this note might be different fr om the original. VIRTUAL VISIT The visit took place via secure, synchronous audio and video technology with the provider keith parker located at the distant site of [facility]. The patient stated they were located at the [facility] site of home and were in the state of [place] at the time of the virtual visit. The n maikel of all additional persons participating in the virtual visit and their roles are: Cassidy Schneider MD. GI Problem List: 1. History RYGB on 09/24/2018 2. Dysphagia, ineffective esophageal motility SUBJECTIVE/BACKGROUND CC: Chronic nausea HPI: Prior to gastric bypass, she was having GERD but otherwise no major GI symptoms prior to by pass surgery Underwent RYGB on September 24, 2018 primarily for obesity and inability to lose weight, had PCOS as well Since surgery, has had chronic nausea and inability to tolerate PO Unable to advance diet much First feeding tube in May and second in July Has fatigue, nausea and dizziness despite nausea medication Lost 185lbs in the last year, slowly still losing weight Doesn't have any warning signs that she is getting full, just starts to dry heave, this has happened since her gastric bypass But can't throw up, just dry heaves Occasionally has trouble swallowing pills particularly if she is very nauseated Can't swallow pills larger than an M+M Using liquid dilaudid for pain around her feeding tube Pain is bleeding, red, granulation tissue Is having the feeding tube evaluated today Taking 15mg mirtazapine at bedtime Started end of July Bowel movements are "miserable" because she is so constipated Stools are hard, hard to pass In a week, goes about 2 times Just doing nocturnal tube feeds ROS: See HPI. Medications and allergies and pt reported vitals reviewed and updated in Epic. OBJECTIVE EGD Impression: - Z-line regular, 37 cm from the incisors. - Andreia-en-Y gastrojejunostomy with gastrojejunal anastomosis characterized by healthy appearing mucosa. - Normal examined jejunal andreia limb. - No specimens collected. - recommend anesthesia support for any future endoscopy Esophageal manometry 2019 Impression: - Manometry indicating ineffective esophageal motility per chicago classification v3.0. - Low baseline impedance in distal esophagus suggestive of esophagitis or burns's esophagus. UGI series IMPRESSION: 1. Postsurgical changes of gastric bypass. Delayed passage of barium tablet at the gastroje junostomy, which replicated the patient's symptoms; the tablet passed after 15 minutes but m ay suggest some degree of narrowing or inflammation. Otherwise, contrast passes through nond ilated loops of small bowel, reaching the cecum between 15 and 45 minutes. 2. Esophageal dysmotility, better evaluated on recent manometry. ASSESSMENT/PLAN 1. Chronic nausea Suspect motility disorder related to prior surgery Will plan for trial of prucalopride (see below) for chronic idiopathic constipation Also recommend she increase her mirtazapine to full dose (was written for 30mg but she neve r titrated up to that dose) Increase mirtazapine to 30mg at bedtime 2. Chronic constipation Recommend pruclopride 2mg daily, order placed Please see AVS for additional instructions related to this visit. Cassidy Schneider MD I have spent a total of 35 minutes on this patient's care today. This time includes the vi rtual visit [id number]-ke-[id number] time with the patient as well as time spent reviewing patient recor ds, coordinating/communicating with care teams and documenting the patient visit. documented in this e ncounter Plan of Treatment +--------+ + + + + | Date | Type | Specialty | Care Team | Description | +--------+ + + + + | 11/13/ | Office | Gastroenterology | Cassidy Schneider, | | | 2019 | Visit | | MD [address] | | | | | | [place], [place] | | | | | | [address] | | | | | | [phone] | | | | | | | | +--------+ + + + + | 11/17/ | Video/TeleH | Pain Management | Florencio Lockett, | | | 2019 | ealth-Sched | | PhD [address] | | | | uled | | [place], [place] | | | | | | [address] | | | | | | [phone] | | | | | | | | +--------+ + + + + | 12/01/ | Video/TeleH | Pain Management | Florencio Lockett, | | | 2019 | ealth-Sched | | PhD [address] | | | | uled | | [place], [place] | | | | | | [address] | | | | | | [phone] | | | | | | | | +--------+ + + + + | 01/06/ | Office | Plastic Surgery | Kuldip Harrell MD | | | 2019 | Visit | | [address] | | | | | | [place], [place] | | | | | | [address] | | | | | | [phone] | | | | | | | | +--------+ + + + + documented as of this encounter Visit Diagnoses + + | Diagnosis | + + | Chronic idiopathic constipation - Primary Unspecified constipation | + + | Chronic nausea Nausea alone | + + documented in this encounter
--- OUTSIDE RECORDS SUMMARY | ~2019-11-06 | XMS | Encounter Summary ---
Demographics + + + | Address | [address] | | | [place] [address] | + + + | Home Phone | | + + + | Preferred Language | Unknown | + + + | Marital Status | | + + + | Synagogue Affiliation | NRP | + + + | Race | White | + + + | Ethnic Group | Not or | + + + Author + + + | Author | [facility] | + + + | Organization | [facility] | + + + | Address | Unknown | + + + | Phone | Unavailable | + + + Support + + +---------+ + | Name | Relationship | Address | Phone | + + +---------+ + | Jeovanny Hernández | ECON | Unknown | | + + +---------+ + Care Team Providers + +------+ + | Care Gui Developer Name | Role | Phone | [...] | | 2019 | | Center at [facility] [address] | MD [address] | Refill Request; | | | | [address] | [place], [place] | Refill Request | | | | for Health and | [address] | | | | | [facility] 2 | [phone] | | | | | [place], [place] | | | | | | [address] | | | | | | [phone] | | | +--------+ + + + [...] | | 2020 | Visit | | [address] | | | | | | [place], [place] | | | | | | [address] | | | | | | [phone] | | | | | | | | +--------+ + + + + | 11/17/ | Video/TeleH | Pain Management | Florencio Lockett, | | | 2019 | ealth-Sched | | PhD [address] | | | | uled | | [place], [place] | | | | | | [address] | | | | | | [phone] | | | | | | | | +--------+ + + + + | 12/01/ | Video/TeleH | Pain Management | Florencio Lockett, | | | 2019 | ealth-Sched | | PhD [address] | | | | uled | | [place], [place] | | | | | | [address] | | | | | | [phone] | | | | | | | | +--------+ + + + + | 01/06/ | Office | Plastic Surgery | Kuldip Harrell MD | | 2019 | Visit | | [address] | | | | | | [place], [place] | | | | | | [address] | | | | | | [phone] | | | | | | | | +--------+ + + + + documented as of this encounter Visit Diagnoses + + | Diagnosis | + + | Morbid obesity (HCC) Morbid obesity | + + documented in this encounter"
--- OUTSIDE RECORDS SUMMARY | ~2019-11-06 | XMS | Encounter Summary ---
Demographics + + + | Address | [address] | | | [place] [address] | + + + | Home Phone [...] Team Providers + +------+ + | Care Waste Duster Name | Role | Phone | + +------+ + | Alisha Stovall PA-C PCP | | + +------+ + Encounter Details +--------+--------+ + + + | Date | Type | Department | Care Team | Description | +--------+--------+ + + + | 10/02/ | Travel | | | | | [...] [address] | | | | | | [place], [place] | | | | | | [address] | | | | | | [phone] | | | | | | | | +--------+ + + + + | 11/17/ | Video/TeleH | Pain Management | Florencio Lockett, | | | 2019 | ealth-Sched | | PhD [address] | | | | uled | | [place], [place] | | | | | | [address] | | | | | | [phone] | | | | | | | | +--------+ + + + + | 12/01/ | Video/TeleH | Pain Management | Florencio Lockett, | | | 2019 | ealth-Sched | | PhD [address] | | | | uled | | [place], [place] | | | | | | [address] | | | | | | [phone] | | | | | | | | +--------+ + + + + | 01/06/ | Office | Plastic Surgery | Kuldip Harrell MD | | 2019 | Visit | | [address] | | | | | | [place], [place] | | | | | | [address] | | | | | | [phone] | | | | | | | | +--------+ + + + + documented as of this encounter Visit Diagnoses Not on filedocumented in this encounter"
--- OUTSIDE RECORDS SUMMARY | ~2019-11-06 | XMS | Encounter Summary ---
Demographics + + + | Address | [address] | | | [place] [address] | + + + | Home Phone | | + + + | Preferred Language | Unknown | + + + | Marital Status | | + + + | Spiritism Affiliation | NRP | + + + | Race | White | + + + | Ethnic Group | Not or | + + + Author + + + | Author | [facility] | + + + | Organization | [facility] | + + + | Address | Unknown | + + + | Phone | Unavailable | + + + Support + + +---------+ + | Name | Relationship | Address | Phone | + + +---------+ + | Jeovanny Hernández | ECON | Unknown | | + + +---------+ + Care Team Providers + +------+ + | Care Transporter Radiology Name | Role | Phone | + [...] Pharmacy | | | | | | [address] | | | | | | [place], [place] | | | | | | [address] | | | | | | [phone] | | | +--------+ + + + [...] [address] | | | | | | [place], [place] | | | | | | [address] | | | | | | [phone] | | | | | | | | +--------+ + + + + | 11/17/ | Video/TeleH | Pain Management | Florencio Lockett, | | | 2019 | ealth-Sched | | PhD [address] | | | | uled | | [place], [place] | | | | | | [address] | | | | | | [phone] | | | | | | | | +--------+ + + + + | 12/01/ | Video/TeleH | Pain Management | Florencio Lockett G, | | | 2019 | ealth-Sched | | PhD [address] | | | | uled | | [facility] [place] | | | | | | [address] | | | | | | [phone] | | | | | | | | +--------+ + + + + | 01/06/ | Office | Plastic Surgery | Kuldip Harrell MD | | | 2019 | Visit | | [address] | | | | | | [place], [place] | | | | | | [address] | | | | | | [phone] | | | | | | | | +--------+ + + + + documented as of this encounter Visit Diagnoses Not on filedocumented in this encounter"
--- OUTSIDE RECORDS SUMMARY | ~2019-11-06 | XMS | Encounter Summary ---
Demographics + + + | Address | [address] | | | [place] [address] | + + + | Home Phone | | + + + | Preferred Language | Unknown | + + + | Marital Status | | + + + | Cheondoism Affiliation | NRP | + + + [...] Providers + +------+ + | Care Construction Electrician Name | Role | Phone | + +------+ + | Alisha Stovall PA-C PCP | | + +------+ + Encounter Details +--------+--------+ + + + | Date | Type | Department | Care Team | Description | +--------+--------+ + + + | 05/15/ | Travel | | | | | [...] | | 2019 | Visit | | [address] | | | | | | [place], [place] | | | | | | [address] | | | | | | [phone] | | | | | | | | +--------+ + + + + | 07/27/ | Video/TeleH | Pain Management | Florencio Lockett, | | | 2019 | ealth-Sched | | PhD [address] | | | | uled | | [place], [place] | | | | | | [address] | | | | | | [phone] | | | | | | | | +--------+ + + + + | 12/01/ | Video/TeleH | Pain Management | Florencio Lockett, | | | 2019 | ealth-Sched | | PhD [address] | | | | uled | | [place], [place] | | | | | | [address] | | | | | | [phone] | | | | | | | | +--------+ + + + + | 01/06/ | Office | Plastic Surgery | Kuldip Harrell MD | | | 2019 | Visit | | [address] | | | | | | [place], [place] | | | | | | [address] | | | | | | [phone] | | | | | | | | +--------+ + + + + documented as of this encounter Visit Diagnoses Not on filedocumented in this encounter"
--- OUTSIDE RECORDS SUMMARY | ~2019-11-06 | XMS | Encounter Summary ---
Demographics + + + | Address | [address] | | | [place] [address] | + + + | Home Phone | | + + + | Preferred Language | Unknown | + + + | Marital Status | | + + + | Confucianism Affiliation | NRP | + + + [...] Team Providers + +------+ + | Care Salesperson Driver Name | Role | Phone | + +------+ + | Alisha Stovall PA-C | PCP | | + +------+ + Encounter Details +--------+ + + + + | Date | Type | Department | Care Team | Description | +--------+ + + + + | 09/25/ | Pharmacy | Outpatient Retail | | | | 2019 | Visit | [facility] | | | | | | [address] | | | | | | [place], [place] | | | | | | [address] | | | | | | [phone] | | | +--------+ + + + [...] [address] | | | | | | [place], [place] | | | | | | [address] | | | | | | [phone] | | | | | | | | +--------+ + + + + | 11/17/ | Video/TeleH | Pain Management | Florencio Lockett, | | | 2019 | ealth-Sched | | PhD [address] | | | | uled | | [place], [place] | | | | | | [address] | | | | | | [phone] | | | | | | | | +--------+ + + + + | 12/01/ | Video/TeleH | Pain Management | Florencio Lockett G, | | | 2019 | ealth-Sched | | PhD [address] | | | | uled | | [facility] [place] | | | | | | [address] | | | | | | [phone] | | | | | | | | +--------+ + + + + | 01/06/ | Office | Plastic Surgery | Kuldip Harrell MD | | | 2019 | Visit | | [address] | | | | | | [place], [place] | | | | | | [address] | | | | | | [phone] | | | | | | | | +--------+ + + + + documented as of this encounter Visit Diagnoses Not on filedocumented in this encounter"
--- OUTSIDE RECORDS SUMMARY | ~2019-11-06 | XMS | Encounter Summary ---
Demographics + + + | Address | [address] | | | [place] [address] | + + + | Home Phone | | + + + | Preferred Language | Unknown | + + + | Marital Status | | + + + | Gnosticist Affiliation | NRP | + + + [...] Team Providers + +------+ + | Care Sock Liner Name | Role | Phone | + +------+ + | Alisha Stovall PA-C PCP | | + +------+ + Encounter Details +--------+--------+ + + + | Date | Type | Department | Care Team | Description | +--------+--------+ + + + | /10/ | Travel | | | | | [...] [address] | | | | | | [place], [place] | | | | | | [address] | | | | | | [phone] | | | | | | | | +--------+ + + + + | 11/17/ | Video/TeleH | Pain Management | Florencio Lockett, | | | 2019 | ealth-Sched | | PhD [address] | | | | uled | | [place], [place] | | | | | | [address] | | | | | | [phone] | | | | | | | | +--------+ + + + + | 12/01/ | Video/TeleH | Pain Management | Florencio Lockett, | | | 2019 | ealth-Sched | | PhD [address] | | | | uled | | [place], [place] | | | | | | [address] | | | | | | [phone] | | | | | | | | +--------+ + + + + | 01/06/ | Office | Plastic Surgery | Kuldip Harrell MD | | 2019 | Visit | | [address] | | | | | | [place], [place] | | | | | | [address] | | | | | | [phone] | | | | | | | | +--------+ + + + + documented as of this encounter Visit Diagnoses Not on filedocumented in this encounter"
--- OUTSIDE RECORDS SUMMARY | ~2019-11-06 | XMS | Encounter Summary ---
Demographics + + + | Address | [address] | | | [place] [address] | + + + | Home Phone [...] Providers + +------+ + | Care Assistant Press Operator Name | Role | Phone | [...] | 2020 | Encounter | Center at [facility] [address] | | Visit. | | | | [facility] | | | | | | for Health and | | | | | | Healing, [address] | | | | | | [place], [place] | | | | | | [address] | | | | | | [phone] | | | +--------+ + + + [...] [address] | | | | | | [place], [place] | | | | | | [address] | | | | | | [phone] | | | | | | | | +--------+ + + + + | 11/17/ | Video/TeleH | Pain Management | Florencio Lockett, | | | 2019 | ealth-Sched | | PhD [address] | | | | uled | | [place], [place] | | | | | | [address] | | | | | | [phone] | | | | | | | | +--------+ + + + + | 12/01/ | Video/TeleH | Pain Management | Florencio Lockett, | | | 2019 | ealth-Sched | | PhD [address] | | | | uled | | [place], [place] | | | | | | [address] | | | | | | [phone] | | | | | | | | +--------+ + + + + | 01/06/ | Office | Plastic Surgery | Kuldip Harrell MD | | | 2019 | Visit | | [address] | | | | | | [place], [place] | | | | | | [address] | | | | | | [phone] | | | | | | | | +--------+ + + + + documented as of this encounter Visit Diagnoses Not on filedocumented in this encounter"
--- OUTSIDE RECORDS SUMMARY | ~2019-11-06 | XMS | Encounter Summary ---
Demographics + + + | Address | [address] | | | [place] [address] | + + + | Home Phone [...] Team Providers + +------+ + | Care Engine Repairer Service Name | Role | Phone | + +------+ + | Alisha Stovall PA-C | PCP | | + +------+ + Reason for Visit +--------+ + | Reason | Comments | +--------+ + | Other | External order (Echo and NM stress test) | +--------+ + Encounter Details +--------+ + + + + | Date | Type | Department | Care Team | Description | +--------+ + + + + | 02/09/ | Abstract | Cardiology | Sarah Barba | Other (External | | 2018 | | Preventive at [facility] | [facility] [address] | order (Echo and NM | | | | [address] | [address] [place], | stress test)) | | | | [facility] | [place] [address] | | | | | and Healing, | [phone] | | | | | [address] | | | | | | [place], [place] | | | | | | [address] | | | | | | [phone] | | | +--------+ + + + [...] documented as of this encounter Progress Notes Richard Lao - 02/09/2018 12:24 PM PDTTest/Study/Procedure: Echo and NM Stress test Dx: R07.9, R60.0, Z01.810 CPT: 89598, 35920 Ordering Provider: Sarah Barba DOS: 02/14/2018 Location name: [facility] (Tax ID: [id number], ) Location address: [address] [place] [address] Location phone/fax: [phone] ph, fax Insurance Name: [facility] [place] ID Number: [id number] TEL: [phone] Notes: 02/12- NM Approved, auth# [id number] vaild from 02/12/18- 05/13/18. Echo approved, auth# [id number], vaild from 02/12/18- 05/13/18. Faxed copies of both auths to [place] 02/08- S/w Audrey at [facility] who says NM test scheduled for 02/14 and Echo not s cheduled yet. She request chart notes, EKG info, and med list. (info faxed to Audrey) - Auth request for Echo and NM Stress test faxed to [facility]. Will follow up Mon documented in this encounter Plan of Treatment +--------+ + + + + | Date | Type | Specialty | Care Team | Description | +--------+ + + + + | 11/13/ | Office | Gastroenterology | Cassidy Schneider, | | | 2019 | Visit | | [address] | | | | | | [facility] [place] | | | | | | [address] | | | | | | [phone] | | | | | | | | +--------+ + + + + | 11/17/ | Video/TeleH | Pain Management | Florencio Lockett, | | | 2019 | ealth-Sched | | PhD [address] | | | | uled | | [facility] [place] | | | | | | [address] | | | | | | [phone] | | | | | | | | +--------+ + + + + | 12/01/ | Video/TeleH | Pain Management | Florencio Lockett, | | | 2019 | ealth-Sched | | PhD [address] | | | | uled | | [place], [place] | | | | | | [address] | | | | | | [phone] | | | | | | | | +--------+ + + + + | 01/06/ | Office | Plastic Surgery | Kuldip Harrell MD | | | 2019 | Visit | | [address] | | | | | | [place], [place] | | | | | | [address] | | | | | | [phone] | | | | | | | | +--------+ + + + + documented as of this encounter Visit Diagnoses Not on filedocumented in this encounter"
--- OUTSIDE RECORDS SUMMARY | ~2019-11-06 | XMS | Clinical Summary ---
Demographics + + + | Address | [address] | | | [place] [address] | + + + | Home Phone | | + + + | Preferred Language | Unknown | + + + | Marital Status | | + + + | Samaritan Affiliation | Unknown | + + + | Race | Unknown | + + + | Ethnic Group | Unknown | + + + Author + + + | Author | [facility] | | | and [place] | + + + | Organization | [facility] | | | and [...] [place], | | | | | [place] [address] | | + + + + + Care Team Providers + +------+ + | Care Door Closer Name | Role | Phone | + +------+ + | Alisha Stovall | PCP | | | PA-C | | | + +------+ + Allergies + + + + + + | Active Allergy | Reactions | Severity | Noted | Comments | | | | | Date | | + + + + + + | Valproic Acid | Other (See Comments) | | 09/02/19 | Suicidal | | | | | 18 | | + + + + + + | Doxycycline | Rash | Low | 09/02/19 | | | | | | 18 | | + + + + + + | Fish Oil | Hives, Nausea And | | 11/11/19 | | | | Vomiting | | 18 | | + + + + + + | Ibuprofen | Hives, Nausea And | | 09/02/19 | | | | Vomiting | | 18 | | + + + + + + | Sumatriptan | Nausea And Vomiting | | 08/24/19 | Increased | | | | | 19 | headaches | + + + + + + | Nicotiana Tabacum | Shortness Of Breath | High | 09/06/19 | | | | | | 19 | | + + + + + + | Oxycodone-Acetaminop | Nausea And Vomiting | | 11/11/19 | | | hen | | | 18 | | + + + + + + | Oxycodone | Nausea And Vomiting | | 09/02/19 | | | | | | 18 | | + + + + + + | Quetiapine | Other (See Comments) | | 09/02/19 | Rage | | | | | 18 | | + + + + + + | Benzonatate | Rash | Low | 09/02/19 | | | | | | 18 | | + + + + + + Medications + + + +---------+------+------+-------+ | Medication | Sig | Dispensed | Refills | Star | End | Statu | | | | | | t | Date | s | | | | | | Date | | | + + + +---------+------+------+-------+ | scopolamine | Place 1 patch onto | | 0 | | | Activ | | (TRANSDERM-SCOP) 1 | the skin once. At | | | | | e | | mg/3 days patch | least 4 hours before | | | | | | | | event;do not cut. | | | | | | | | Remove before | | | | | | | | applying new patch. | | | | | | + + + +---------+------+------+-------+ | cyclobenzaprine | Take 5 mg by mouth 3 | | 0 | | | Activ | | (FLEXERIL) 5 MG | times daily as | | | | | e | | tablet | needed for Muscle | | | | | | | | spasms. | | | | | | + + + +---------+------+------+-------+ | magnesium | Take by mouth Daily | | 0 | | | Activ | | hydroxide (MILK OF | as needed for | | | | | e | | MAGNESIA) 400 mg/5 | Constipation. | | | | | | | mL suspension | | | | | | | + + + +---------+------+------+-------+ | acetaminophen | Take 500 mg by mouth | | 0 | | | Activ | | (TYLENOL) 500 mg | every 6 hours as | | | | | e | | tablet | needed for Pain. | | | | | | + + + +---------+------+------+-------+ | lidocaine | Place 1 patch onto | | 0 | | | Activ | | (LIDODERM) 5% patch | the skin Daily. | | | | | e | | | Apply for 12 hours, | | | | | | | | then remove for 12 | | | | | | | | hours. | | | | | | + + + +---------+------+------+-------+ | ondansetron | Take 4 mg by mouth | | 0 | | | Activ | | (ZOFRAN ODT) 4 mg | every 8 hours as | | | | | e | | disintegrating | needed for Nausea. | | | | | | | tablet | | | | | | | + + + +---------+------+------+-------+ | naloxone (NARCAN) | Take 8 mg by mouth 4 | | 0 | | | Activ | | 0.4 mg/mL oral | times daily. | | | | | e | | liquid | | | | | | | + + + +---------+------+------+-------+ | Multiple | Take by mouth. | | 0 | | | Activ | | Vitamins-Minerals | | | | | | e | | (MULTIVITAMIN ADULT | | | | | | | | PO) | | | | | | | + + + +---------+------+------+-------+ | promethazine | Take 25 mg by mouth | | 0 | | | Activ | | (PHENERGAN) 25 mg | every 6 hours as | | | | | e | | tablet | needed. | | | | | | + + + +---------+------+------+-------+ | LAMOTRIGINE PO | Take by mouth. | | 0 | | | Activ | | | | | | | | e | + + + +---------+------+------+-------+ | simethicone | Chew and swallow 80 | | 0 | | | Activ | | (MYLICON) 80 mg | mg every 6 hours as | | | | | e | | chewable tablet | needed for | | | | | | | | Flatulence. | | | | | | + + + +---------+------+------+-------+ | topiramate | Take 50 mg by mouth | | 0 | | | Activ | | (TOPAMAX) 50 MG | 2 times daily. | | | | | e | | tablet | | | | | | | + + + +---------+------+------+-------+ | beclomethasone | Inhale 2 puffs into | | 0 | | | Activ | | (QVAR) 40 mcg/puff | the lungs 2 times | | | | | e | | inhaler | daily. | | | | | | + + + +---------+------+------+-------+ | LINZESS 145 MCG | | | 0 | 04/0 | | Activ | | capsule | | | | 8/20 | | e | | | | | | 20 | | | + + + +---------+------+------+-------+ | prochlorperazine 5 | Take 5-10 mg by | | 0 | 03/2 | | Activ | | mg tablet | mouth. | | | 4/20 | | e | | | | | | 20 | | | + + + +---------+------+------+-------+ | VENLAFAXINE HCL PO | Take by mouth. | | 0 | | | Activ | | | | | | | | e | + + + +---------+------+------+-------+ | TRAZODONE HCL PO | Take by mouth. | | 0 | | | Activ | | | | | | | | e | + + + +---------+------+------+-------+ | erenumab-aooe | Inject 1 mL under | 1 mL | 2 | 04/2 | | Activ | | (AIMOVIG) 70 mg/mL | the skin Every 30 | | | 9/20 | | e | | injection | days. | | | 20 | | | + + + +---------+------+------+-------+ | pantoprazole | Take 20 mg by mouth | | 0 | | | Activ | | (PROTONIX) 20 mg | every morning | | | | | e | | tablet | (before breakfast). | | | | | | + + + +---------+------+------+-------+ | midodrine | Take 1 tablet by | 90 | 2 | 08/23 | | Activ | | (PROAMATINE) 2.5 MG | mouth 3 times daily. | tablet | | 12/11 | | e | | tablet | | | | 20 | | | + + + +---------+------+------+-------+ Active Problems + + | Patient Care Coordination Note | + + | 08/30/19 PA for Aimovig 70 mg/ml SC approved from [facility] from 08/28/19 to 11/28/19./Niru, | | RN05.10.11- PA for aimovig via cover my meds were approved effective from 08/28/2019 | | through 11/28/2019 . 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 Hyperostosis frontalis. 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 Hyperostosis frontalis. 09/14/18 EEG: | | Normal awake and drowsy EEG | + + Encounters +--------+ + + + + | Date | Type | Specialty | Care Team | Description | +--------+ + + + + | 09/18/ | Office | Cardiology | Katheryn Hammonds DO | Hypotension, | | 2019 | Visit | | | unspecified | | | | | | hypotension type | | | | | | (Primary Dx); | | | | | | Dizziness | +--------+ + + + + | 09/17/ | Telephone | Cardiology | Fern Love | Other (SCREENED FOR | | 2019 | | | D, Ict Sales Representative | APPT ) | +--------+ + + + + | 08/27/ | Telephone | Neurology | Shirley Murdock NP | Medical Problem | | 2019 | | | | | +--------+ + + + + | 08/20/ | Office | Neurology | Shirley Murdock NP | Intractable migraine | | 2019 | Visit | | | without aura and | | | | | | without status | | | | | | migrainosus (Primary | | | | | | Dx); Gastric bypass | | | | | | status for obesity | +--------+ + + + + from Last 3 Months Family History + + +------+ + | Medical History | Relation | Name | Comments | + + +------+ + | Migraines | Father | | | + + +------+ + | Migraines | Paternal | | | | | Grandmoth | | | | | er | | | + + +------+ + + +------+--------+ + | Relation | Name | Status | Comments | + +------+--------+ + | Father | | Alive | | + +------+--------+ + | Mother | | Alive | | + +------+--------+ + | Paternal Grandmother | | | | + +------+--------+ + Social History + +-------+ +--------+------+ | [...] on file | | + + + Last Filed Vital Signs + [...] + | Respiratory Rate | 16 | 08/21/2019 8:48 AM | | | | | PDT [...] + + + + Plan of Treatment +--------+---------+ + + + | Date | Type | Specialty | Care Team | Description | +--------+---------+ + + + | 11/18/ | Office | Neurology | Shirley Murdock NP | | | 2019 | Visit | | [address] [facility] | | | | | | [place] | | | | | | [address] | | | | | | [phone] | | | | | | | | +--------+---------+ + + + | 11/25/ | Office | Cardiology | Katheryn Hammonds DO | | | 2019 | Visit | | [address] | | | | | | [place] | | | | | | [phone] | | | | | | | | +--------+---------+ + + + + + +-------+ + | Health Maintenance | Due Date | Last | Comments | | | | Done | | + + +-------+ + | Vaccine: | | | | | Dtap/Tdap/Td (1 - | 8 | | | | Tdap) | | | | + + +-------+ + | Statin Therapy | | | | | (optimal intensity) | 8 | | | + + +-------+ + | Cervical Cancer | | | | | Screening (Pap) | 9 | | | + + +-------+ + | Vaccine: Influenza | | | | | (#1) | 0 | | | + + +-------+ + Results Not on filefrom Last 3 Months [...] +--------+ +--------+ +---------+--------+ | | CHAMPV | [phone] | | [phone] | | Indemn | | | A | | 020-Pr | 7 | | ity | | | | | esent | | | | + +--------+ +--------+ +---------+--------+ | [employer] | MODA | [id number] | | [phone] | | Medica | | MEDICAID HMO | HEALTH | | 018-Pr | 1 | | id | | | MDCD | | esent | | | | | | [place] | | | | | | + +--------+ +--------+ +---------+--------+ | [employer] | MODA | [id number] | 04/26/19 | [phone] | | Medica | | MEDICAID HMO | HEALTH | | 19-Pre | 1 | | id | | | MDCD | | sent | | | | | | [place] | | | | | | + +--------+ +--------+ +---------+--------+ | [employer] | MODA | [id number] | 01/31/ | [phone] | | Medica | | MEDICAID HMO | HEALTH | | 2019-P | 1 | | id | | | MDCD | | resent | | | | | | [place] | | | | | | + [...] | [address] | | | al/Steven | | 1990 | [phone] | [place] | | | [place] | | | 9 (Home) | [address] | + +--------+ +--------+ + + | Maria De Jesus Hernández | Person | Self | [birth year] | [address] | | | al/Fam | | 1990 | [phone] | [place], [place] | | | [place] | | | 9 (Home) | [address] | + +--------+ +--------+ + + | Maria De Jesus Hernández | Person | Self | [birth year] | | [address] | | | al/Fam | | 1990 | [phone] | [place], [place] | | | [place] | | | 9 (Home) | [address] | + +--------+ +--------+ + + Advance Directives + + + + + | Type | Date Recorded | Patient | Explanation | | | | Revenue Coordinator | | + + + + + | Power of | | | | | Dining Room Busser | | | | + + + + + | Advance | 09/01/2017 4:53 | | | | Directive | PM | | | + + + + +
--- OUTSIDE RECORDS SUMMARY | ~2019-11-06 | XMS | Encounter Summary ---
Demographics + + + | Address | [address] | | | [place] [address] | + + + | Home Phone | | + + + | Preferred Language | Unknown | + + + | Marital Status | | + + + | Rastafarian Affiliation | NRP | + + + [...] Team Providers + +------+ + | Care Mercerizer Name | Role | Phone | + +------+ + | Alisha Stovall PA-C | PCP | | + +------+ + Reason for Visit + + + | Reason | Comments | + + + | Car Gen Record | gen checklist | | Review | | + + + Encounter Details +--------+ + + + + | Date | Type | Department | Care Team | Description | +--------+ + + + + | 11/20/ | Abstract | Cardiology | Unknown . | Car Gen Record | | 2018 | | Preventive at [facility] | | Review (gen | | | | [address] | | checklist) | | | | [facility] | | [facility], | | | | | | [address] | | | | | | [place], [place] | | | | | | [address] | | | | | | [phone] | | | +--------+ + + + [...] + documented as of this encounter Progress Carol Ann Hu - 11/20/2017 12:08 PM PDTFormatting of this note might be different fro m the original. General Cardiology New Patient Record Check List Procedure Where/Date Date requested Report received? Y/N, Where? Imaging received? CD/ IMPAX/Not Available Comments Referring Provider notes Jody Watson bluebird bio - [place] N/A Referral Last EKG (REPORT ONLY) Note: Tracings needed if being seen for abnormal ECG 11-10-17 bluebird bio - [place] N/A Last Echo images and report - - - - Last Stress Test images and report - - - - Last Cardiac Catheterization images and report - - - - Last Holter or Event monitor report only - - - N/A Labs (BMP, Lipids, TSH, Hemoglobin A1C in last 6 months) 11-10-17 bluebird bio - [place] N/A Last Device Check (schedule device check if due) - - - N/A Last Cardiac MRI report and images if available - - - - Cardiac CTA report and images if available - - - - Patient Preferred Lab N/A N/A N/A Additional Comments: documented in this en counter Plan of Treatment +--------+ + + + + | Date | Type | Specialty | Care Team | Description | +--------+ + + + + | 11/13/ | Office | Gastroenterology | Cassidy Schneider, | | | 2019 | Visit | | MD [address] | | | | | | [place], [place] | | | | | | [address] | | | | | | [phone] | | | | | | | | +--------+ + + + + | 11/17/ | Video/TeleH | Pain Management | Florencio Lockett, | | | 2019 | ealth-Sched | | PhD [address] | | | | uled | | [place], [place] | | | | | | [address] | | | | | | [phone] | | | | | | | | +--------+ + + + + | 12/01/ | Video/TeleH | Pain Management | Florencio Lockett, | | | 2019 | ealth-Sched | | PhD [address] | | | | uled | | [place], [place] | | | | | | [address] | | | | | | [phone] | | | | | | | | +--------+ + + + + | 01/06/ | Office | Plastic Surgery | Kuldip Harrell MD | | | 2020 | Visit | | [address] | | | | | | [place], [place] | | | | | | [address] | | | | | | [phone] | | | | | | | | +--------+ + + + + documented as of this encounter Visit Diagnoses Not on filedocumented in this encounter"
--- OUTSIDE RECORDS SUMMARY | ~2019-11-06 | XMS | Encounter Summary ---
Demographics + + + | Address | [address] | | | [place] [address] | + + + | Home Phone [...] Providers + +------+ + | Care Associate Professor Of Psychology Name | Role | Phone | + +------+ + | Alisha Stovall PA-C | PCP | | + +------+ + Encounter Details +--------+--------+ + + + | Date | Type | Department | Care Team | Description | +--------+--------+ + + + | 10/16/ | Intake | Transfer Center | | N/A | | 2019 | | [address] | | | | | | [place], | | | | | | [place] [address] | | | +--------+--------+ + + + [...] [address] | | | | | | [place], [place] | | | | | | [address] | | | | | | [phone] | | | | | | | | +--------+ + + + + | 11/17/ | Video/TeleH | Pain Management | Florencio Lockett, | | | 2019 | ealth-Sched | | PhD [address] | | | | uled | | [place], [place] | | | | | | [address] | | | | | | [phone] | | | | | | | | +--------+ + + + + | 12/01/ | Video/TeleH | Pain Management | Florencio Lockett, | | | 2019 | ealth-Sched | | PhD [address] | | | | uled | | [place], [place] | | | | | | [address] | | | | | | [phone] | | | | | | | | +--------+ + + + + | 01/06/ | Office | Plastic Surgery | Kuldip Harrell MD | | | 2020 | Visit | | [address] | | | | | | [place], [place] | | | | | | [address] | | | | | | [phone] | | | | | | | | +--------+ + + + + documented as of this encounter Visit Diagnoses Not on filedocumented in this encounter"
--- OUTSIDE RECORDS SUMMARY | ~2019-11-06 | XMS | Encounter Summary ---
Demographics + + + | Address | [address] | | | [place] [address] | + + + | Home Phone [...] Team Providers + +------+ + | Care Sheet Metal Operator Name | Role | Phone | + +------+ + | Alisha Stovall PA-C | PCP | | + +------+ + Encounter Details +--------+ + + + + | Date | Type | Department | Care Team | Description | +--------+ + + + + | 11/17/ | Pharmacy | Outpatient Retail | | | | 2019 | Visit | [facility] | | | | | | [address] | | | | | | [place], [place] | | | | | | [address] | | | | | | [phone] | | | +--------+ + + + [...] [place] | | | | | | [address] | | | | | | [phone] | | | | | | | | +--------+ + + + + | 11/17/ | Video/TeleH | Pain Management | Florencio Lockett, | | | 2019 | ealth-Sched | | PhD [address] | | | | uled | | [place], [place] | | | | | | [address] | | | | | | [phone] | | | | | | | | +--------+ + + + + | 12/01/ | Video/TeleH | Pain Management | Florencio Lockett G, | | | 2019 | ealth-Sched | | PhD [address] | | | | uled | | [facility] [place] | | | | | | [address] | | | | | | [phone] | | | | | | | | +--------+ + + + + | 01/06/ | Office | Plastic Surgery | Kuldip Harrell MD | | | 2019 | Visit | | [address] | | | | | | [place], [place] | | | | | | [address] | | | | | | [phone] | | | | | | | | +--------+ + + + + documented as of this encounter Visit Diagnoses Not on filedocumented in this encounter"
--- OUTSIDE RECORDS SUMMARY | ~2019-11-06 | XMS | Encounter Summary ---
Demographics + + + | Address | [address] | | | [place] [address] | + + + | Home Phone [...] + + | Author | [facility] | + + + | Organization | [facility] | + + + | Address | Unknown | + + + | Phone | Unavailable | + + + Support + + +---------+ + | Name | Relationship | Address | Phone | + + +---------+ + | Jeovanny Hernández | ECON | Unknown | | + + +---------+ + Care Team Providers + +------+ + | Care Pipe Fitter Helper Name | Role | Phone [...] Pharmacy | | | | | | [address] | | | | | | [address] [place], [place] | | | | | | [address] | | | | | | [phone] | | | +--------+ + + + [...] [address] | | | | | | [place], [place] | | | | | | [address] | | | | | | [phone] | | | | | | | | +--------+ + + + + | 11/17/ | Video/TeleH | Pain Management | Florencio Lockett, | | | 2019 | ealth-Sched | | PhD [address] | | | | uled | | [place], [place] | | | | | | [address] | | | | | | [phone] | | | | | | | | +--------+ + + + + | 12/01/ | Video/TeleH | Pain Management | Florencio Lockett G, | | | 2019 | ealth-Sched | | PhD [address] | | | | uled | | [facility] [place] | | | | | | [address] | | | | | | [phone] | | | | | | | | +--------+ + + + + | 01/06/ | Office | Plastic Surgery | Kuldip Harrell MD | | | 2019 | Visit | | [address] | | | | | | [place], [place] | | | | | | [address] | | | | | | [phone] | | | | | | | | +--------+ + + + + documented as of this encounter Visit Diagnoses Not on filedocumented in this encounter"
--- OUTSIDE RECORDS SUMMARY | ~2019-11-06 | XMS | Encounter Summary ---
Demographics + + + | Address | [address] | | | [place] [address] | + + + | Home Phone [...] Team Providers + +------+ + | Care Animal Shelter Manager Name | Role | Phone | [...] [address] | | | | | | [place], [place] | | | | | | [address] | | | | | | [phone] | | | | | | | | +--------+ + + + + | 11/17/ | Video/TeleH | Pain Management | Florencio Lockett, | | | 2019 | ealth-Sched | | PhD [address] | | | | uled | | [place], [place] | | | | | | [address] | | | | | | [phone] | | | | | | | | +--------+ + + + + | 12/01/ | Video/TeleH | Pain Management | Florencio Lockett, | | | 2019 | ealth-Sched | | PhD [address] | | | | uled | | [place], [place] | | | | | | [address] | | | | | | [phone] | | | | | | | | +--------+ + + + + | 01/06/ | Office | Plastic Surgery | Kuldip Harrell MD | | 2019 | Visit | | [address] | | | | | | [place], [place] | | | | | | [address] | | | | | | [phone] | | | | | | | | +--------+ + + + + documented as of this encounter Visit Diagnoses Not on filedocumented in this encounter"
--- OUTSIDE RECORDS SUMMARY | ~2019-11-06 | XMS | Encounter Summary ---
Demographics + + + | Address | [address] | | | [place] [address] | + + + | Home Phone [...] Team Providers + +------+ + | Care Film Laboratory Technician Name | Role | Phone | [...] + + + + | 05/30/ | Anesthesia | 6A Intra Op 3181 | Praveena Rose, | | | 2019 | Event | GEM Shea | MD [address] | | | | | [facility] | [address] | | | | | Hospital Admitting | [place], [place] | | | | | Desk Located on the | [address] | | | | | 9th floor | [phone] | | | | | [place], [place] | | | | | | [address] | Manuel Adam | | | | | | [address] | | | | | | [place], | | | | | | [place] [address] | | +--------+ + + + + Anesthesia Record + + + + + | Procedure Name | Responsible | Anesthesia Start | Anesthesia Stop Time | | | Anesthesiologist | Time | | + + + + + | LAPAROSCOPIC GASTRIC | Praveena Rose MD | 05/30/19 0728 | 05/30/19 1032 | | TUBE PLACEMENT, | | | [...] | + + + | midazolam | 4 mg | + + + | fentaNYL | 200 mcg | + + + | lidocaine 2% | 100 mg | + + + | propofol (DIPRIVAN) 200 mg | 400 mg | + + + | propofol (DIPRIVAN) 200 mg | 1,828,200 mcg | + + + | rocuronium | 100 mg | + + + | dexamethasone | 10 mg | + + + | ceFAZolin | 3,000 mg | + + + | ePHEDrine | 5 mg | + + + | ondansetron | 4 mg | + + + | neostigmine | 4 mg | + + + | glycopyrrolate | 0.6 mg | + + + | dexMEDEtomidine (PRECEDEX) 400 | 141.72 mcg | | mcg in sodium chloride (NS) 0.9 % | | | 100 mL (4 mcg/mL) IV infusion | | + + + | LR | 1,400 mL | + + + | LR infusion | 0 mL | + + + + + | Name | + + | O2 FR Avance (Total Liters) | + + | Air FR Avance (l/min) | + + | Insp Sevo | + + | Et Sevo | + + | EtN2O % | + + | Insp N2O % [...] | 09/24/18; 1424; Right; Medial; | 09/24/18 142 by | | | on | abdomen [...] Jerome Benitez, | | | | | NAREN | | +--------+ + + + | Incisi | 05/30/19; 899; Alphonso Norton MD; | 05/30/19899 by | | | on | Left; Anterior, Lower; abdomen | Jerome Iveyoneratne, | | | | | RN | [...] | Right; Anterior, Lower; abdomen | Jerome Leslieratne, | | | | | RN | | +--------+ + + + | Feedin | 05/30/19; 924; MD Cierra; | 05/30/19924 by | | | g Tube | G-tube; Abdomen UR; 18 | Kimberley Van Fossan, RN | | +--------+ + + + | Periph | 05/30/19; 0707; Right; | 05/30/19 0707 by | 06/01/19 170 by | | eral | Antecubital; 18 g; Lidocaine; | Herberth Devine RN | Brii Pulido RN | | IV | Positive; 06/01/19; 170; | | | | | Catheter damage [...] [address] | | | | | | [place], [place] | | | | | | [address] | | | | | | [phone] | | | | | | | | +--------+ + + + + | 11/17/ | Video/TeleH | Pain Management | Florencio Lockett, | | | 2019 | ealth-Sched | | PhD [address] | | | | uled | | [place], [place] | | | | | | [address] | | | | | | [phone] | | | | | | | | +--------+ + + + + | 12/01/ | Video/TeleH | Pain Management | Florencio Lockett G, | | | 2019 | ealth-Sched | | PhD [address] | | | | uled | | [place], [place] | | | | | | [address] | | | | | | [phone] | | | | | | | | +--------+ + + + + | 01/06/ | Office | Plastic Surgery | Kuldip Harrell MD | | | 2019 | Visit | | [address] | | | | | | [place], [place] | | | | | | [address] | | | | | | [phone] | | | | | | | | +--------+ + + + + documented as of this encounter Procedures + +--------+ + + + | Procedure Name | Priori | Date/Time | Associated Diagnosis | Comments | | | ty | | | | + +--------+ + + + | ANE ETT | Routin | 05/30/2019 | | Results for this | | | e | 8:03 AM | | procedure are in the | | | | PST | | results section. | + +--------+ + + + documented in this encounter Results ETT (05/30/2019 8:03 AM PST) + + + | Narrative | Performed At | + + + | Shannan Bertrand MD 05/30/2019 8:05 AM AIRWAY MANAGEMENT - | | | ETT Time of Placement: 05/30/2019 7:46 AM Intubation Reason: For | | | surgical procedure Positioning: Supine Location Performed:OR | | | OXYGENATION Patient was preoxygenated Grade: Grade 0 - Ventilation | | | by mask not attempted Induction:Routine, without Cricoid Pressure | | | INTUBATION ATTEMPT 1 Blade Type: Malcom Blade #: 3 | | | Intubation Adjuncts: w/ Stylet Laryngoscopic View: Grade I ETT | | | DETAILS ETT Type:Standard, Hi-Lo Cuffed Intubation Type: Oral Cuff | | | Status: Cuffed Size: 7 ETT secured with adhesive tape Depth at | | | Lip: 22 cm CONFIRMATION airway not difficult Number of | | | Attempts: 1 Atraumatic placement Positive for EtCO2:Waveform | | | capnography Breath Sounds: Bilateral and equal NARRATIVE | | | Attending was physically present for the critical portions of the | | | procedure as described in the procedure note Attending/Authorizing | | | Provider: Praveena Rose MD Performing Provider: Shannan Bertrand MD | | | Procedure Comments: RSI done for chronic n/v. Airway management | | | by JUAN CARLOS Adam. Gr I view with MAC 3. Atraumatic placement. | | + + + documented in this encounter Visit Diagnoses Not on filedocumented in this encounter Administered Medications + +--------+ + +------+------+ | Medication Order | MAR | Action | Dose | Rate | Site | | | Action | Date | | | | + +--------+ + +------+------+ | ceFAZolin (ANCEF) injection | Given | 05/30/19 | 3,000 mg | | | | intravenous, INTRAPROCEDURE PRN, | | 20 7:58 | | | | | Starting [facility] 05/30/19 at 0758, | | AM PST | | | | | Until [facility] 05/30/19 at 1032 | | | | | | + +--------+ + +------+------+ +---+---+ | | | +---+---+ + +-------+ +-------+---+---+ | dexamethasone (DECADRON) | Given | 05/30/19 | 10 mg | | | | injection INTRAPROCEDURE PRN, | | 20 7:51 | | | | | Starting [facility] 05/30/19 at 0751, | | AM PST | | | | | Until [facility] 05/30/19 at 1032 | | | | | | + +-------+ +-------+---+---+ +---+---+ | | | +---+---+ + + + + +-------+---+ | dexMEDEtomidine (PRECEDEX) 400 | Rate/Dos | 05/30/19 | 0.2 | 5.5 | | | mcg in sodium chloride (NS) 0.9 % | e Change | 20 9:23 | mcg/kg/h | mL/hr | | | 100 mL (4 mcg/mL) IV infusion | | AM PST | r | | | | INTRAPROCEDURE CONTINUOUS PRN, | | | | | | | Starting [facility] 05/30/19 at 0746, | | | | | | | Until [facility] 05/30/19 at 1032 | | | | | | + + + + +-------+---+ + + + + +---+ | Rate/Dose Change | 05/30/19 | 0.3 | 8.25 | | | | 20 9:18 | mcg/kg/h | mL/hr | | | | AM PST | r | | | + + + + +---+ | Rate/Dose Change | 05/30/19 | 0.4 | 11 mL/hr | | | | 20 8:55 | mcg/kg/h | | | | | AM PST | r | | | + + + + +---+ +---+---+ | | | +---+---+ + +-------+ +------+---+---+ | ePHEDrine injection | Given | 05/30/19 | 5 mg | | | | intravenous, INTRAPROCEDURE PRN, | | 20 7:55 | | | | | Starting [facility] 05/30/19 at 0755, | | AM PST | | | | | Until [facility] 05/30/19 at 1032 | | | | | | + +-------+ +------+---+---+ +---+---+ | | | +---+---+ + +-------+ +--------+---+---+ | fentaNYL (SUBLIMAZE) injection | Given | 05/30/19 | 25 mcg | | | | INTRAPROCEDURE PRN, Starting [facility] | | 20 10:31 | | | | | 05/30/19 at 0743, Until [facility] 05/30/19 | | AM PST | | | | | at 1032 | | | | | | + +-------+ +--------+---+---+ +-------+ +--------+---+---+ | Given | 05/30/19 | 25 mcg | | | | | 20 9:52 | | | | | | AM PST | | | | +-------+ +--------+---+---+ | Given | 05/30/19 | 50 mcg | | | | | 20 8:10 | | | | | | AM PST | | | | +-------+ +--------+---+---+ +---+---+ | | | +---+---+ + +-------+ +--------+---+---+ | glycopyrrolate (ANTON) | Given | 05/30/19 | 0.6 mg | | | | injection INTRAPROCEDURE PRN, | | 20 10:05 | | | | | Starting [facility] 05/30/19 at 1005, | | AM PST | | | | | Until [facility] 05/30/19 at 1032 | | | | | | + +-------+ +--------+---+---+ +---+---+ | | | +---+---+ + + + +---+---+---+ | lactated ringers (LR) infusion | given by | 05/30/19 | | | | | INTRAPROCEDURE CONTINUOUS PRN, | | 20 8:02 | | | | | Starting [facility] 05/30/19 at 0719, | anesthes | AM PST | | | | | Until [facility] 05/30/19 at 1032 | iology | | | | | + + + +---+---+---+ + + +---+---+---+ | New Bag | 05/30/19 | | | | | | 20 7:30 | | | | | | AM PST | | | | + + +---+---+---+ | given by anesthesiology | 05/30/19 | | | | | | 20 7:29 | | | | | | AM PST | | | | + + +---+---+---+ +---+---+ | | | +---+---+ + +---------+ +---+-------+---+ | lactated ringers (LR) infusion | New Bag | 05/30/19 | | 100 | | | INTRAPROCEDURE CONTINUOUS PRN, | | 20 7:46 | | mL/hr | | | Starting [facility] 05/30/19 at 0746, | | AM PST | | | | | Until [facility] 05/30/19 at 1032 | | | | | | + +---------+ +---+-------+---+ +---+---+ | | | +---+---+ + +-------+ +-------+---+---+ | lidocaine PF (XYLOCAINE MPF) 20 | Given | 05/30/19 | 60 mg | | | | mg/mL (2 %) injection | | 20 7:37 | | | | | INTRAPROCEDURE PRN, Starting [facility] | | AM PST | | | | | 05/30/19 at 0731, Until [facility] 05/30/19 | | | | | | | at 1032 | | | | | | + +-------+ +-------+---+---+ +-------+ +-------+---+---+ | Given | 05/30/19 | 40 mg | | | | | 20 7:31 | | | | | | AM PST | | | | +-------+ +-------+---+---+ +---+---+ | | | +---+---+ + +-------+ +------+---+---+ | midazolam (PF) (VERSED) | Given | 05/30/19 | 2 mg | | | | injection INTRAPROCEDURE PRN, | | 20 7:34 | | | | | Starting [facility] 05/30/19 at 0729, | | AM PST | | | | | Until [facility] 05/30/19 at 1032 | | | | | | + +-------+ +------+---+---+ +-------+ +------+---+---+ | Given | 05/30/19 | 2 mg | | | | | 20 7:29 | | | | | | AM PST | | | | +-------+ +------+---+---+ +---+---+ | | | +---+---+ + +-------+ +------+---+---+ | neostigmine (PROSTIGMIN) | Given | 05/30/19 | 4 mg | | | | intravenous, INTRAPROCEDURE PRN, | | 20 10:05 | | | | | Starting [facility] 05/30/19 at 1005, | | AM PST | | | | | Until [facility] 05/30/19 at 1032 | | | | | | + +-------+ +------+---+---+ +---+---+ | | | +---+---+ + +-------+ +------+---+---+ | ondansetron (ZOFRAN) injection | Given | 05/30/19 | 4 mg | | | | INTRAPROCEDURE PRN, Starting Mary | | 20 10:08 | | | | | 05/30/19 at 1008, Until [facility] 05/30/19 | | AM PST | | | | | at 1032 | | | | | | + +-------+ +------+---+---+ +---+---+ | | | +---+---+ + +-------+ +-------+---+---+ | propofol (DIPRIVAN) 200 mg | Bolus | 05/30/19 | 50 mg | | | | INTRAPROCEDURE CONTINUOUS PRN, | | 20 10:13 | | | | | Starting [facility] 05/30/19 at 0731, | | AM PST | | | | | Until [facility] 05/30/19 at 1032 | | | | | | + +-------+ +-------+---+---+ +-------+ +--------+---+---+ | Bolus | 05/30/19 | 200 mg | | | | | 20 7:44 | | | | | | AM PST | | | | +-------+ +--------+---+---+ | Bolus | 05/30/19 | 30 mg | | | | | 20 7:40 | | | | | | AM PST | | | | +-------+ +--------+---+---+ +---+---+ | | | +---+---+ + + + + +---+---+ | propofol (DIPRIVAN) 200 mg | Rate/Dos | 05/30/19 | 100 | | | | INTRAPROCEDURE CONTINUOUS PRN, | e Change | 20 9:52 | mcg/kg/m | | | | Starting [facility] 05/30/19 at 0746, | | AM PST | in | | | | Until Mary 05/30/19 at 1032 | | | | | | + + + + +---+---+ + + + +---+---+ | Rate/Dose Change | 05/30/19 | 90 | | | | | 20 9:15 | mcg/kg/m | | | | | AM PST | in | | | + + + +---+---+ | Rate/Dose Change | 05/30/19 | 100 | | | | | 20 8:55 | mcg/kg/m | | | | | AM PST | in | | | + + + +---+---+ +---+---+ | | | +---+---+ + +-------+ +--------+---+---+ | rocuronium injection | Given | 05/30/19 | 100 mg | | | | INTRAPROCEDURE PRN, Starting Mary | | 20 7:44 | | | | | 05/30/19 at 0744, Until Mary 05/30/19 | | AM PST | | | | | at 1032 | | | | | | + +-------+ +--------+---+---+ +---+---+ | | | +---+---+ documented in this encounter"
--- OUTSIDE RECORDS SUMMARY | ~2019-11-06 | XMS | Encounter Summary ---
Demographics + + + | Address | [address] | | | [place] [address] | + + + | Home Phone [...] Team Providers + +------+ + | Care Sourcing Manager Name | Role | Phone | + +------+ + | Alisha Stovall PA-C | PCP | | + +------+ + Encounter Details +--------+ + + + + | Date | Type | Department | Care Team | Description | +--------+ + + + + | 12/27/ | Orders Only | Digestive Health | Jody Wtason ACNP | | | 2019 | | Center at [facility] [address] | [address] | | | | | [facility] | [place], | | | | | for Health and | [place] [address] | | | | | [place], [facility] [address] | [phone] | | | | | [place], [place] | | | | | | [address] | | | | | | [phone] | | | +--------+ + + + [...] [address] | | | | | | [place], [place] | | | | | | [address] | | | | | | [phone] | | | | | | | | +--------+ + + + + | 11/17/ | Video/TeleH | Pain Management | Florencio Lockett, | | | 2019 | ealth-Sched | | PhD [address] | | | | uled | | [place], [place] | | | | | | [address] | | | | | | [phone] | | | | | | | | +--------+ + + + + | 12/01/ | Video/TeleH | Pain Management | Florencio Lockett, | | | 2019 | ealth-Sched | | PhD [address] | | | | uled | | [place], [place] | | | | | | [address] | | | | | | [phone] | | | | | | | | +--------+ + + + + | 01/06/ | Office | Plastic Surgery | Kuldip Harrell MD | | | 2019 | Visit | | [address] | | | | | | [place], [place] | | | | | | [address] | | | | | | [phone] | | | | | | | | +--------+ + + + + documented as of this encounter Visit Diagnoses Not on filedocumented in this encounter"
--- OUTSIDE RECORDS SUMMARY | ~2019-11-06 | XMS | Encounter Summary ---
Demographics + + + | Address | [address] | | | [place] [address] | + + + | Home Phone | | + + + | Preferred Language | Unknown | + + + | Marital Status | | + + + | Roman Catholic Affiliation | NRP | + + [...] Providers + +------+ + | Care Medical Transcription Supervisor Name | Role | Phone | + +------+ + | Alisha Stovall PA-C PCP | | + +------+ + Encounter Details +--------+--------+ + + + | Date | Type | Department | Care Team | Description | +--------+--------+ + + + | 06/14/ | Travel | | | | | [...] [address] | | | | | | [place], [place] | | | | | | [address] | | | | | | [phone] | | | | | | | | +--------+ + + + + | 11/17/ | Video/TeleH | Pain Management | Florencio Lockett, | | | 2019 | ealth-Sched | | PhD [address] | | | | uled | | [place], [place] | | | | | | [address] | | | | | | [phone] | | | | | | | | +--------+ + + + + | 12/01/ | Video/TeleH | Pain Management | Florencio Lockett, | | | 2019 | ealth-Sched | | PhD [address] | | | | uled | | [place], [place] | | | | | | [address] | | | | | | [phone] | | | | | | | | +--------+ + + + + | 01/06/ | Office | Plastic Surgery | Kuldip Harrell MD | | 2019 | Visit | | [address] | | | | | | [place], [place] | | | | | | [address] | | | | | | [phone] | | | | | | | | +--------+ + + + + documented as of this encounter Visit Diagnoses Not on filedocumented in this encounter"
--- OUTSIDE RECORDS SUMMARY | ~2019-11-06 | XMS | Encounter Summary ---
Demographics + + + | Address | [address] | | | [place] [address] | + + + | Home Phone [...] Team Providers + +------+ + | Care Mri Manager Name | Role | Phone | + +------+ + | Alisha Stovall PA-C PCP | | + +------+ + Encounter Details +--------+--------+ + + + | Date | Type | Department | Care Team | Description | +--------+--------+ + + + | 12/21/ | Travel | | | | | [...] [place] | | | | | | [address] | | | | | | [phone] | | | | | | | | +--------+ + + + + | 11/17/ | Video/TeleH | Pain Management | Florencio Lockett, | | | 2019 | ealth-Sched | | PhD [address] | | | | uled | | [place], [place] | | | | | | [address] | | | | | | [phone] | | | | | | | | +--------+ + + + + | 12/01/ | Video/TeleH | Pain Management | Florencio Lockett, | | | 2019 | ealth-Sched | | PhD [address] | | | | uled | | [place], [place] | | | | | | [address] | | | | | | [phone] | | | | | | | | +--------+ + + + + | 01/06/ | Office | Plastic Surgery | Kuldip Harrell MD | | 2019 | Visit | | [address] | | | | | | [place], [place] | | | | | | [address] | | | | | | [phone] | | | | | | | | +--------+ + + + + documented as of this encounter Visit Diagnoses Not on filedocumented in this encounter"
--- OUTSIDE RECORDS SUMMARY | ~2019-11-06 | XMS | Encounter Summary ---
Demographics + + + | Address | [address] | | | [place] [address] | + + + | Home Phone [...] Team Providers + +------+ + | Care Supervisor Parking Lot Name | Role | Phone | + +------+ + | Alisha Stovall PA-C | PCP | | + +------+ + Reason for Visit Consultation (Routine) +--------+ + + + + [...] | [facility] | | | with [facility] [facility] | | | Surg [facility] | [facility] [address] | | | | | | [address] | [address] | | | | | | [address] | [facility] | [facility] | for Health | Health and | | | | | | and Healing, | Healing, | | | | | | Building [address] | [address] | | | | | | [place], | [place], [place] | | | | | | [place] | [address] | | | | | | [address] | Phone: | | | | | | Phone: | | | | | | | | Fax: | | | | | | Fax: | [phone] | | | | | | [phone] | | +--------+ + + + + + Encounter Details +--------+---------+ + + + | Date | Type | Department | Care Team | Description | +--------+---------+ + + + | 07/16/ | Office | Digestive Health | | Morbid obesity (HCC) | | 2019 | Visit | Center at [facility] [address] | | (Primary Dx) | | | | [address] | | | | | | for Health and | | | | | | Healing, [address] | | | | | | [place], [place] | | | | | | [address] | | | | | | | [...] documented as of this encounter Progress Notes Alida Mcadams RN - 07/16/2018 11:00 AM [facility] Bariatric Pre-Op Class Instructor(s): Alida Mcadams RN Documented Time of Class: 1100 until 1200 (60 minutes [id number] with patient) Teaching Methods: PowerPoint and verbal presentation with additional written materials and visual aids. Class content included: 1. Pre-Surgery Diet a. Clear liquids only the day before surgery b. NPO at midnight 2. Medications a. Use of Aspirin 7 days prior to surgery b. Use of NSAIDs and other pain medications 7 days prior to surgery 3. Showering or Bathing 4. Smoking 5. Inpatient Hospital Stay a. Destination b. Items to bring to the hospital c. Pre-Surgery ? Discussion regarding indwelling urinary catheters and why they are not routinely used. d. PACU e. 14A ? Emphasis on early and frequent mobility ? Emphasis on fluid goals ? Use of Incentive Spirometer ? Symptom Management ? Discharge Criteria 6. Discharge Planning a. Planning ahead prior to surgery b. Items to buy prior to surgery c. Keeping a journal with fluid/protein d. Transportation 7. [place] for Successful Weight Loss Surgery 8. Surgical Consent 9. Reseach Consent 10. Nutrition Refresher a. Protein b. Fluids c. Vitamins d. Diet Progression Assessment: Pt remained attentive throughout the class and/or participated by asking questi ons or sharing information. Yes documented in this encounter Plan of Treatment +--------+ + + + + | Date | Type | Specialty | Care Team | Description | +--------+ + + + + | 11/13/ | Office | Gastroenterology | Cassidy Schneider, | | | 2019 | Visit | | [address] | | | | | | [place], [place] | | | | | | [address] | | | | | | [phone] | | | | | | | | +--------+ + + + + | 11/17/ | Video/TeleH | Pain Management | Florencio Lockett, | | | 2019 | ealth-Sched | | PhD [address] | | | | uled | | [place], [place] | | | | | | [address] | | | | | | [phone] | | | | | | | | +--------+ + + + + | 12/01/ | Video/TeleH | Pain Management | Florencio Lockett, | | | 2019 | ealth-Sched | | PhD [address] | | | | uled | | [place], [place] | | | | | | [address] | | | | | | [phone] | | | | | | | | +--------+ + + + + | 01/06/ | Office | Plastic Surgery | Kuldip Harrell MD | | 2019 | Visit | | [address] | | | | | | [place], [place] | | | | | | [address] | | | | | | [phone] | | | | | | | | +--------+ + + + + documented as of this encounter Visit Diagnoses + + | Diagnosis | + + | Morbid obesity (HCC) - Primary Morbid obesity | + + documented in this encounter"
--- OUTSIDE RECORDS SUMMARY | ~2019-11-06 | XMS | Encounter Summary ---
Demographics + + + | Address | [address] | | | [place] [address] | + + + | Home Phone [...] Team Providers + +------+ + | Care Seat Nailer Name | Role | Phone | + [...] [address] | | | | | | [place], [place] | | | | | | [address] | | | | | | [phone] | | | | | | | | +--------+ + + + + | 11/17/ | Video/TeleH | Pain Management | Florencio Lockett, | | | 2019 | ealth-Sched | | PhD [address] | | | | uled | | [place], [place] | | | | | | [address] | | | | | | [phone] | | | | | | | | +--------+ + + + + | 12/01/ | Video/TeleH | Pain Management | Florencio Lockett, | | | 2019 | ealth-Sched | | PhD [address] | | | | uled | | [place], [place] | | | | | | [address] | | | | | | [phone] | | | | | | | | +--------+ + + + + | 01/06/ | Office | Plastic Surgery | Kuldip Harrell MD | | 2019 | Visit | | [address] | | | | | | [place], [place] | | | | | | [address] | | | | | | [phone] | | | | | | | | +--------+ + + + + documented as of this encounter Visit Diagnoses Not on filedocumented in this encounter"
--- OUTSIDE RECORDS SUMMARY | ~2019-11-06 | XMS | Encounter Summary ---
Demographics + + + | Address | [address] | | | [place] [address] | + + + | Home Phone [...] Team Providers + +------+ + | Care Radio Station Manager Name | Role | Phone | [...] | | | obesity | [address] [facility] | [facility] | | | | | ([facility]) | [facility] | for Health | | | | | Procedures | Rd | and Healing, | | | | | PHYSICAL | [facility] [place] | Building [address], | | | | | THERAPY | [address] | 1st Floor | | | | | REFERRAL | Phone: | [place], [place] | | | | | | [phone] | [address] | | | | | | Fax: | Phone: | | | | | | [phone] | [phone] | | | | | | | Fax: | | | | | | | [phone] | +--------+--------+ + + + + Encounter Details +--------+---------+ + + + | Date | Type | Department | Care Team | Description | +--------+---------+ + + + | 10/13/ | Office | [facility] Physical | Daphnieella, | Morbid obesity (HCC) | | 2018 | Visit | Therapy Services at | Shannan, PT [address] | (Primary Dx); | | [facility] | [facility] | Weakness | | | | [address] | Rd [facility] [place] | generalized; | | | | [place] for [facility] | [address] | Decreased activity | | | | and Healing, | [phone] | | | | | Building | | | | | | Floor [place], [place] | | | | | | [address] | | | | | | [phone] | | | +--------+---------+ + + + [...] kym t from the original. Insurance: Payor: [facility] MEDICAID / Plan: [facility] [place] / Product Type: Medicaid / Non-Medicare [facility] PHYSICAL THERAPY EVALUATION No past medical history on file. No past surgical history on file. No current outpatient prescriptions on file. Previous physical therapy treatment or alternative treatments for this condition includes: none. Results of previous treatment: N/A. 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 Patient has PT for neck [...] exercises Aquatic exercises G-Codes established 10/13/17 G8978 [place] MOBILITY CURRENT STATUS Impairment 60-79 % G8979 [...] course Low - Uncomplicated Complexity: Low - 73867 The patient requires services that can be [...] status. Shannan Villagran, PT [facility] 1ST FLOOR Scheduled Appointment time: 1:00 PM [...] home for shoulder pain Procedure Codes: Re-evaluation 81927, Therapeutic Exercise 33494, Therapeutic Activities 9 4142, Gait Training 54010 and Self-care ADL 60623 Minutes per session: 45 Total number of [...] activity Next progress report 12/13/2017 Insurance: Payor: [employer] / Plan: [employer] [place] / Product Type: Medicaid / G-code:- [...] 11/13/ | Office | Gastroenterology | Cassidy Schnedier, | | | 2019 | Visit | | [address] | | | | | | [place], [place] | | | | | | [address] | | | | | | [phone] | | | | | | | | +--------+ + + + + | 11/17/ | Video/TeleH | Pain Management | Florencio Lockett, | | | 2019 | ealth-Sched | | PhD [address] | | | | uled | | [place], [place] | | | | | | [address] | | | | | | [phone] | | | | | | | | +--------+ + + + + | 12/01/ | Video/TeleH | Pain Management | Florencio Lockett, | | | 2019 | ealth-Sched | | PhD [address] | | | | uled | | [place], [place] | | | | | | [address] | | | | | | [phone] | | | | | | | | +--------+ + + + + | 01/06/ | Office | Plastic Surgery | Kuldip Harrell MD | | | 2019 | Visit | | [address] | | | | | | [place], [place] | | | | | | [address] | | | | | | [phone] | | | | | | | | +--------+ + + + + + + +--------+ + + | Name | Type | Priori | Associated Diagnoses | Order Schedule | | | | ty | | | + + +--------+ + + | DE MOBILITY CURRENT | Procedures | Routin | Morbid obesity | Ordered: 10/18/2017 | | STATUS | | e | ([facility]) Weakness | | | | | | generalized | | | | | | Decreased activity | | + + +--------+ + + | PQRI MOBILITY GOAL | Procedures | Routin | Morbid obesity | Ordered: 10/18/2017 | | STATUS | | e | (HCC) Weakness | | | | | | [...]
--- OUTSIDE RECORDS SUMMARY | ~2019-11-06 | XMS | Encounter Summary ---
Demographics + + + | Address | [address] | | | [place] [address] | + + + | Home Phone [...] Team Providers + +------+ + | Care Auger Press Operator Name | Role | Phone [...] Records | | 2018 | | Center [place] [address] [id number] | | Review | | | | [address] [facility] | | | | | | for Health and | | | | | | Healing, [address] | | | | | | [place], [place] | | | | | | [address] | | | | | | [phone] | | | +--------+ + + + [...] [address] | | | | | | [place], [place] | | | | | | [address] | | | | | | [phone] | | | | | | | | +--------+ + + + + | 11/17/ | Video/TeleH | Pain Management | Florencio Lockett, | | | 2019 | ealth-Sched | | PhD [address] | | | | uled | | [place], [place] | | | | | | [address] | | | | | | [phone] | | | | | | | | +--------+ + + + + | 12/01/ | Video/TeleH | Pain Management | Florencio Lockett, | | | 2019 | ealth-Sched | | PhD [address] | | | | uled | | [place], [place] | | | | | | [address] | | | | | | [phone] | | | | | | | | +--------+ + + + + | 01/06/ | Office | Plastic Surgery | Kuldip Harrell MD | | | 2019 | Visit | | [address] | | | | | | [place], [place] | | | | | | [address] | | | | | | [phone] | | | | | | | | +--------+ + + + + documented as of this encounter Visit Diagnoses Not on filedocumented in this encounter"
--- OUTSIDE RECORDS SUMMARY | ~2019-11-06 | XMS | Encounter Summary ---
Demographics + + + | Address | [address] | | | [place] [address] | + + + | Home Phone [...] Team Providers + +------+ + | Care Pesticide Applicator Name | Role | Phone | + [...] To Surgery | | 2017 | | [place] [address] [address] | | - General | | | | [address] [facility] | | | | | | for Health and | | | | | | Healing, [address] | | | | | | [place], [place] | | | | | | [address] | | | | | | [phone] | | | +--------+ + + + [...] [address] | | | | | | [place], [place] | | | | | | [address] | | | | | | [phone] | | | | | | | | +--------+ + + + + | 11/17/ | Video/TeleH | Pain Management | Florencio Lockett, | | | 2019 | ealth-Sched | | PhD [address] | | | | uled | | [place], [place] | | | | | | [address] | | | | | | [phone] | | | | | | | | +--------+ + + + + | 12/01/ | Video/TeleH | Pain Management | Florencio Lockett, | | | 2019 | ealth-Sched | | PhD [address] | | | | uled | | [place], [place] | | | | | | [address] | | | | | | [phone] | | | | | | | | +--------+ + + + + | 01/06/ | Office | Plastic Surgery | Kuldip Harrell MD | | | 2019 | Visit | | [address] | | | | | | [place], [place] | | | | | | [address] | | | | | | [phone] | | | | | | | | +--------+ + + + + documented as of this encounter Visit Diagnoses Not on filedocumented in this encounter"
--- OUTSIDE RECORDS SUMMARY | ~2019-11-06 | XMS | Encounter Summary ---
Demographics + + + | Address | [address] | | | [place] [address] | + + + | Home Phone [...] Team Providers + +------+ + | Care Arboriculture Teacher Name | Role | Phone | + +------+ + | Alisha Stovall PA-C PCP | | + +------+ + Encounter Details +--------+--------+ + + + | Date | Type | Department | Care Team | Description | +--------+--------+ + + + | /03/ | Travel | | | | | [...] | | 2019 | Visit | | [address] | | | | | | [place], [place] | | | | | | [address] | | | | | | [phone] | | | | | | | | +--------+ + + + + | 07/27/ | Video/TeleH | Pain Management | Florencio Lockett, | | | 2019 | ealth-Sched | | PhD [address] | | | | uled | | [place], [place] | | | | | | [address] | | | | | | [phone] | | | | | | | | +--------+ + + + + | 12/01/ | Video/TeleH | Pain Management | Florencio Lockett, | | | 2019 | ealth-Sched | | PhD [address] | | | | uled | | [place], [place] | | | | | | [address] | | | | | | [phone] | | | | | | | | +--------+ + + + + | 01/06/ | Office | Plastic Surgery | Kuldip Harrell MD | | | 2019 | Visit | | [address] | | | | | | [place], [place] | | | | | | [address] | | | | | | [phone] | | | | | | | | +--------+ + + + + documented as of this encounter Visit Diagnoses Not on filedocumented in this encounter"
--- OUTSIDE RECORDS SUMMARY | ~2019-11-06 | XMS | Encounter Summary ---
Demographics + + + | Address | [address] | | | [place] [address] | + + + | Home Phone [...] Team Providers + +------+ + | Care Coal Cutter Name | Role | Phone | + [...] Description | +--------+---------+ + + + | 02/05/ | Office | Digestive Health | | Morbid obesity (HCC) | | 2018 | Visit | Center at [facility] [address] | | (Primary Dx) | | | | [address] | | | | | | for Health and | | | | | | Healing, [address] | | | | | | [place], [place] | | | | | | [address] | | | | | | [phone] | | | +--------+---------+ + + + [...] + + + + | Weight | 174.9 kg (385 lb 8 | 02/05/2018 10:50 AM | | | | oz) | PDT | | + + + + + | Height | - | - | | + + + + + | Body Mass Index | 52.28 | 11/10/2017 12:48 PM | | | | | PDT | | + + + + + documented in this encounter Progress Notes Lisa Medina RD - 02/05/2018 9:30 AM PDT Referring Provider: Diya Perez MD [facility] Pre-Bariatric Surgery Class Pre-Surgery Class #1 prior to having Nadya-En-Y gastric bypass surgery or Sleeve Gastrectomy . Documented Time of Class: 2:00/3:00 until 3:00/4:00 (60 minutes [id number] with patient) OBJECTIVE: Height: Ht Readings from Last 1 Encounters: 11/10/17 1.829 m (6') Ht Readings from Last 1 Encounters: 11/10/17 1.829 m (6') Wt Readings from Last 2 Encounters: 02/05/18 174.9 kg (385 lb 8 oz) 11/10/17 181.4 kg (400 lb) BMI: Body mass index is 52.28 kg/m. Teaching Methods: PowerPoint and verbal presentation [...] -Taking vitamins and minerals every day 2. Mindful eating, emotional eating 3. Pre-surgery diet (plate method, label reading, keeping food logs) Assessment: Pt remained attentive throughout the class and/or participated by asking questi ons or sharing information. Yes Lisa Medina RD, CNSC, LD [facility] Bariatrics [phone] documented in this enco unter Plan of Treatment +--------+ + + + + | Date | Type | Specialty | Care Team | Description | +--------+ + + + + | 11/13/ | Office | Gastroenterology | Cassidy Schneider, | | | 2019 | Visit | | [address] | | | | | | [place], [place] | | | | | | [address] | | | | | | [phone] | | | | | | | | +--------+ + + + + | 11/17/ | Video/TeleH | Pain Management | Florencio Lockett, | | | 2019 | ealth-Sched | | PhD [address] | | | | uled | | [place], [place] | | | | | | [address] | | | | | | [phone] | | | | | | | | +--------+ + + + + | 12/01/ | Video/TeleH | Pain Management | Florencio Lockett G, | | | 2019 | ealth-Sched | | PhD [address] | | | | uled | | [place], [place] | | | | | | [address] | | | | | | [phone] | | | | | | | | +--------+ + + + + | 01/06/ | Office | Plastic Surgery | Kuldip Harrell MD | | | 2019 | Visit | | [address] | | | | | | [place], [place] | | | | | | [address] | | | | | | [phone] | | | | | | | | +--------+ + + + + documented as of this encounter Visit Diagnoses + + | Diagnosis | + + | Morbid obesity (HCC) - Primary Morbid obesity | + + documented in this encounter"
--- OUTSIDE RECORDS SUMMARY | ~2019-11-06 | XMS | Encounter Summary ---
Demographics + + + | Address | [address] | | | [place] [address] | + + + | Home Phone | | + + + | Preferred Language | Unknown | + + + | Marital Status | | + + + | Episcopalian Affiliation | Unknown | + + + | Race | Unknown | + + + | Ethnic Group | Unknown | + + + Author + + + | Author | [facility] | | | and [place] | + + + | Organization | [facility] | | | [...] [place], | | | | | [place] [address] | | + + + + + Care Team Providers + +------+ + | Care Real Estate Investment Analyst Name | Role | Phone | + +------+ + | Alisha Stovall | PCP | | | PA-C | | | + +------+ + Reason for Visit + + + | Reason | Comments | + + + | Skin Redness With | | | Swelling | | + + + Encounter Details +--------+ + + + + | Date | Type | Department | Care Team | Description | +--------+ + + + + | 09/01/ | Emergency | [facility] | Devan Farmer, | Abdominal wall | | 2018 | | [facility] | [id number] [address] | abscess (Primary Dx) | | | | CENTER [address] | [place] | | | | | [place] | [place] [address] | | | | | [address] | [phone] | | | | | [phone] | | | +--------+ + + + [...] + + + | Blood Pressure | 137/76 | 09/01/2017 5:59 PM | | | | | PDT | | + + + + + | Pulse | 81 | 09/01/2017 5:59 PM | | | | | PDT | | + + + + + | Temperature | 36.8 C (98.2 F) | 09/01/2017 1:55 PM | | | | | PDT | | + + + + + | Respiratory Rate | 18 | 09/01/2017 1:55 PM | | | | | PDT | | + + + + + | Oxygen Saturation | 95% | 09/01/2017 5:59 PM | | | | | PDT [...] + + + documented in this encounter Discharge Instructions Anat Mcmahan RN - 09/01/2017Replace cephalexin with clindamycin and continue sulfa antibiotic, however the main treatment for this infection is heat to the area and exposing the open area to the air frequently so the drainage doesn't stay inside. Rech delta of area advised in 3 days sooner if high fever or vomiting antibiotics. Use hydrocodone if tolerated otherwise Tylenol. Use stool softener if taking hydrocodone to avoid constipa tion documented in this encounter Medications at Time [...] + + + +---------+ + + | clindamycin | Take 1 capsule by | 40 | 0 | 09/02/19 | | | (CLEOCIN) 300 MG | mouth 4 times daily | capsule | | 18 | 8 | | capsule | for 10 days. | | | | | + + + +---------+ + + | | Take 1 tablet by | 12 | 0 | 09/02/19 | | | HYDROcodone-acetamin | mouth every 4 hours | tablet | | 18 | 9 | | ophen (NORCO) 5-325 | as needed for Pain. | | | | | | mg per tablet | | | | | | [...] + + + +---------+ + + | Topiramate | Take 25 mg by mouth | | 0 | | | | (TOPAMAX PO) | 2 times daily. | | | | 9 | + + + +---------+ + + documented as of this encounter ED Notes Devan Farmer MD - 09/01/2017 1:49 PM PDTFormatting of this note might be different fro m the original. [facility] Emergency Department Encounter Note [address] [place] [id number] PCP:No primary care provider on file. [phone] CHIEF COMPLAINT: Chief Complaint Patient presents with Skin Redness With Swelling ED Room: ED12/ED12 TRIAGE: ED Triage Notes, ED Triage Notes Anat Cowan, Civil Engineering Professor 09/01/2017 13:56 Cosign Required Pt reports going to urgent care last week for cellulitis. Pt reports going to ED in [facility] on where she had an ultrasound three nights ago. Pt reports yesterday morning that lump on a bdomen started to "leak" bloody and tafoya colored discharge that has foul odor that saturated a washcloth. Pt reports currently taking Keflex x4 daily and Bactrum x 2 daily. HPI Maria De Jesus Anna is a 26 y.o. female who presents to the Emergency Department with a worsenin g skin infection over the last few days despite Bactrim and cephalexin. It is on the lower midline abdomen and she said the area started draining yesterday 5 AM and has been draining foul smelling fluid since then. She reports some nausea and feels like she has a fever and has some dizziness. She says the area is very painful and she denies pain anywhere else. T he area was so swollen that an ultrasound was done to see if there was an abscess and none w as seen. She has been visiting a relative in the intensive care unit staying there overnigh t. She denies any history of MRSA. She reports previous milder infections in the area that responded to local treatment PAST MEDICAL & SURGICAL HISTORY Past Medical History: Diagnosis Date Diabetes mellitus (HCC) Hypertension Polycystic ovarian disease History reviewed. No pertinent surgical history. I reviewed past medical history, medications and allergies at presentation. CURRENT MEDICATIONS Previous Medications BECLOMETHASONE DIPROPIONATE (QVAR IN) Inhale into the lungs. METFORMIN (GLUCOPHAGE) 1000 MG TABLET Take 1,000 mg by mouth 2 times daily (with breakf ast & dinner). PANTOPRAZOLE (PROTONIX) 40 MG TABLET Take 40 mg by mouth every morning (before breakfas t). PROPRANOLOL (INDERAL) 40 MG TABLET Take 40 mg by mouth 2 times daily. TOPIRAMATE (TOPAMAX PO) Take by mouth. ALLERGIES Allergies Allergen Reactions Benzonatate Doxycycline Ibuprofen Hives and Nausea And Vomiting Oxycodone Nausea And Vomiting Quetiapine Valproic Acid FAMILY AND SOCIAL HISTORY History reviewed. No pertinent family history. Social History Social History Marital status: N/A Spouse name: N/A Number of children: N/A Years of education: N/A Social History Main Topics Smoking status: Never Smoker Smokeless tobacco: Never Used Alcohol use None Drug use: No Sexual activity: Not Asked Other Topics Concern None Social History Narrative None REVIEW OF SYSTEMS As in history of present illness. GENERAL: Some fever ENT: denies earache, sore throat EYES: denies eye pain NECK: denies neck pain CARDIAC: denies chest pain PULMONARY: denies cough GI: denies vomiting but low midline abdominal pain, but admits to dry heaves MUSCULOSKELETAL: denies neck pain or back pain : denies pain with urination NEURO: Migraine headache PHYSICAL EXAM VITAL SIGNS: (first vital signs):Temp: 36.8 C (98.2 F) Pulse: 93 Resp: 18 SpO2: 99 % BP : (!) 157/99 Constitutional: female patient, Mild distress Head: Atraumatic, no facial asymmetry Eyes: PER, eyes clear of redness. ENT: External ears appear normal, Neck: Supple with good range of motion, no JVD Respiratory: No respiratory distress, Good air movement bilaterally. No rales or wheezing Cardiovascular: Normal S1 S2, no murmur Abdomen: Soft, very large abdomen with tender induration low midline and a draining wound in the supra pubic skin fold, epigastric areas nontender. Drainage is foul smelling and muc oid with surrounding slight redness. No rebound, guarding, or masses. No pulsatile masses Extremities: Atraumatic without deformities, Skin: Warm, Dry, No rashes Neurologic: Alert & oriented. Not anxious. No focal deficits., Speech normal, gait not te sted Psychiatric: Normal mood and normal affect. LABS Results for orders placed or performed during the hospital encounter of 09/01/17 CBC with Differential Result Value Ref Range WBC 10.7 4.0 - 11.0 K/uL RBC 4.89 3.70 - 5.20 M/uL Hgb 12.5 11.5 - 16.0 g/dL Hct 39.5 34.0 - 47.0 % MCV 80.7 (L) 83.0 - 101.0 fL MCH 25.5 (L) 28.0 - 35.0 pg MCHC 31.5 (L) 32.0 - 36.0 g/dL RDW-CV 15.1 (H) <15.0 % Platelet Count 280 140 - 440 K/uL MPV 8.8 fL % Neutrophils 67.2 45.0 - 82.0 % % Lymphocytes 25.2 20.0 - 45.0 % % Monocytes 4.3 4.0 - 12.0 % % Eosinophils 1.9 0.0 - 5.0 % % Basophils 1.4 (H) 0.0 - 1.0 % Absolute Neutrophils 7.20 1.80 - 8.50 K/uL Absolute Lymphocytes 2.70 0.60 - 3.20 K/uL Absolute Monocytes 0.50 0.00 - 1.00 K/uL Absolute Eosinophils 0.20 0.00 - 0.40 K/uL Absolute Basophils 0.20 (H) 0.00 - 0.10 K/uL Lactic Acid Result Value Ref Range LACTATE 2.0 0.5 - 2.2 mmol/L Basic Metabolic Panel Result Value Ref Range NA 135 (L) 136 - 149 mmol/L K 3.9 3.5 - 5.1 mmol/L CL 103 98 - 109 mmol/L CO2 22 (L) 24 - 31 mmol/L ANION GAP 10 3 - 16 mmol/L GLUCOSE 106 70 - 109 mg/dL BUN 10 7 - 18 mg/dL Creatinine, Serum/Plasma 0.76 0.60 - 1.30 mg/dL eGFR if not >60 >=60 mL/min/1.73m2 CALCIUM 9.2 8.3 - 10.5 mg/dL BUN/CREA 13.2 Extra Green Top Tube Result Value Ref Range Extra Green Top Tube Done Extra Blue Top Tube Result Value Ref Range Extra Blue Top Tube Done IMAGING STUDIES (X-Rays interpreted by ED Physician) Ct Abdomen Pelvis W Contrast Result Date: 09/01/[address] ABDOMEN AND PELVIS 09/01/2017 3:20 PM CLINICAL HISTORY: SKIN REDNESS WITH SWE LLING Midline suprapubic abscess COMPARISON: None available TECHNIQUE: Axial images ar e performed through the abdomen and pelvis following the uneventful intravenous administrati on of 95 mL Omnipaque 350 contrast. Coronal and sagittal reformations are also performe d. ABDOMEN FINDINGS: Imaged lung bases and mediastinum are unremarkable. There is general ized hypoattenuation of the liver, consistent with fatty infiltration. The gallbladder, sple en, pancreas, adrenal glands and right kidney are unremarkable. There is a punctate calculu s inferiorly in the left renal sinus, without evident ureteral calculus or hydroureteronephr osis. The stomach, bowel and appendix are unremarkable, without evidence of obstruction or visible inflammation. No free air, ascites, pathologic lymph node enlargement or hernia is evident. The abdominal vasculature appears patent and unremarkable. There is multilevel th oracolumbar Schmorl's node formation. There is generalized skin thickening within the anteri or suprapubic abdominal wall, with underlying subcutaneous stranding. A tiny collection of gas is present in the left anterior subcutaneous tissues, with surrounding stranding and a p robable small caliber tract extending toward the overlying skin, but no visible fluid collec tion. No radiopaque foreign body is evident. PELVIS FINDINGS: The bladder, uterus and adn exa are unremarkable. No free air, free fluid, pathologic lymph node enlargement, or hernia is evident. Osseous structures are unremarkable. IMPRESSION - 1. SKIN THICKENING AND PATEL BCUTANEOUS STRANDING IN THE ANTERIOR, SUPRAPUBIC ABDOMINAL WALL WITH A SMALL LOCULUS OF SUBC UTANEOUS GAS AND PROBABLE SMALL SINUS TRACT BUT NO VISIBLE FLUID COLLECTION. 2. HYPOATTENUA TION OF THE LIVER CONSISTENT WITH FATTY INFILTRATION. 3. PUNCTATE LEFT RENAL CALCULUS WITHO UT VISIBLE URETERAL CALCULUS OR HYDROURETERONEPHROSIS. Images were provided for interpretati on on September 01, 2017 at 1540 hours. Results were finalized at 1550 hours. Dictated and Signed by: Gopi Douglass MD Electronically signed: 09/01/2017 3:52 PM ED COURSE & MEDICAL DECISION MAKING Pertinent Labs & Imaging studies were reviewed along with EMS notes and correction record s if applicable. (See chart for details) Medications and Allergy list reviewed. Nurses note and old records were reviewed The patient was seen and examined, a culture is obtained and a gauze is placed in the moist intertriginous fold in the suprapubic area. Advise CBC IV fluids and CT scan to determine extent of infection and apparent abscess. She is advised not to return to the intensive car e unit because of her infectious disease 1604 she does not appear septic or have any deep abscess but a superficial abscess with chas e surrounding inflammation and that superficial abscess is draining well. Last Set of Vital Signs: Temp: 36.8 C (98.2 F) Pulse: 81 Resp: 18 SpO2: 97 % BP: 135/79 FINAL IMPRESSION ICD-10-CM ICD-9-CM 1. Abdominal wall abscess L02.211 682.2 New Prescriptions CLINDAMYCIN (CLEOCIN) 300 MG CAPSULE Take 1 capsule by mouth 4 times daily for 10 days. HYDROCODONE-ACETAMINOPHEN (NORCO) 5-325 MG PER TABLET Take 1 tablet by mouth every 4 ho urs as needed for Pain. Discharge Instructions Replace cephalexin with clindamycin and continue sulfa antibiotic, however the main treatme nt for this infection is heat to the area and exposing the open area to the air frequently s o the drainage doesn't stay inside. Recheck of area advised in 3 days sooner if high fever or vomiting antibiotics. Use hydrocodone if tolerated otherwise Tylenol. Use stool softene r if taking hydrocodone to avoid constipation Portions of this chart may have been created with [employer] voice recognition software. Occasi onal wrong-word or sound-alike substitutions may have occurred due to the inherent to itations of voice recognition software. Please read the chart carefully and recognize, using context, where these substitutions have occurred Devan Farmer MD 09/01/17 [id number] documented in this en counter Plan of Treatment +--------+---------+ + + + | Date | Type | Specialty | Care Team | Description | +--------+---------+ + + + | 11/18/ | Office | Neurology | Shirley Murdock NP | | | 2019 | Visit | | [address] [place] [address] | | | | | | [place] | | | | | | [address] | | | | | | [phone] | | | | | | | | +--------+---------+ + + + | 11/25/ | Office | Cardiology | Katheryn Hammonds DO | | | 2019 | Visit | | [address] | | | | | | [place] | | | | | | [address] | | | | | | | | +--------+---------+ + + + documented as of this encounter Procedures + +--------+ + + + | Procedure Name | Priori | Date/Time | Associated Diagnosis | Comments | | | ty | | | | + +--------+ + + + | CT ABDOMEN PELVIS W | STAT | 09/01/2017 | | Results for this | | CONTRAST | | 3:39 PM | | procedure are in the | | | | PDT | | results section. | + +--------+ + + + | EXTRA GREEN TOP TUBE | STAT | 09/01/2017 | | Results for this | | | | 2:44 PM | | procedure are in the | | | | PDT | | results section. | + +--------+ + + + | EXTRA BLUE TOP TUBE | STAT | 09/01/2017 | | Results for this | | | | 2:44 PM | | procedure are in the | | | | PDT | | results section. | + +--------+ + + + | LASHON, WOUND, | STAT | 09/01/2017 | | Results for this | | SMEAR | | 2:41 PM | | procedure are in the | | | | PDT | | results section. | + +--------+ + + + | CBC WITH | STAT | 09/01/2017 | | Results for this | | DIFFERENTIAL | | 2:40 PM | | procedure are in the | | | | PDT | | results section. | + +--------+ + + + | LACTIC ACID | STAT | 09/01/2017 | | Results for this | | | | 2:40 PM | | procedure are in the | | | | PDT | | results section. | + +--------+ + + + | BASIC METABOLIC | STAT | 09/01/2017 | | Results for this | | PANEL | | 2:40 PM | | procedure are in the | | | | PDT | | results section. | + +--------+ + + + documented in this encounter Results CT Abdomen Pelvis w Contrast (09/01/2017 3:39 PM PDT) + + | Specimen | + + | | + + + + + | Narrative | Performed At | + + + | ENHANCED CT ABDOMEN AND PELVIS 09/01/2017 3:20 PM CLINICAL | [facility] | | HISTORY: SKIN REDNESS WITH SWELLING Midline suprapubic abscess | | | COMPARISON: None available TECHNIQUE: Axial images are | | | performed through the abdomen and pelvis following the uneventful | | | intravenous administration of 95 mL Omnipaque 350 contrast. | | | Coronal and sagittal reformations are also performed. ABDOMEN | | | FINDINGS: Imaged lung bases and mediastinum are unremarkable. | | | There is generalized hypoattenuation of the liver, consistent with | | | fatty infiltration. The gallbladder, spleen, pancreas, adrenal | | | glands and right kidney are unremarkable. There is a punctate | | | calculus inferiorly in the left renal sinus, without evident ureteral | | | calculus or hydroureteronephrosis. The stomach, bowel and appendix | | | are unremarkable, without evidence of obstruction or visible | | | inflammation. No free air, ascites, pathologic lymph node | | | enlargement or hernia is evident. The abdominal vasculature appears | | | patent and unremarkable. There is multilevel thoracolumbar | | | Schmorl's node formation. There is generalized skin thickening | | | within the anterior suprapubic abdominal wall, with underlying | | | subcutaneous stranding. A tiny collection of gas is present in the | | | left anterior subcutaneous tissues, with surrounding stranding and a | | | probable small caliber tract extending toward the overlying skin, but | | | no visible fluid collection. No radiopaque foreign body is evident. | | | PELVIS FINDINGS: The bladder, uterus and adnexa are | | | unremarkable. No free air, free fluid, pathologic lymph node | | | enlargement, or hernia is evident. Osseous structures are | | | unremarkable. IMPRESSION - 1. SKIN THICKENING AND | | | SUBCUTANEOUS STRANDING IN THE ANTERIOR, SUPRAPUBIC ABDOMINAL WALL | | | WITH A SMALL LOCULUS OF SUBCUTANEOUS GAS AND PROBABLE SMALL SINUS | | | TRACT BUT NO VISIBLE FLUID COLLECTION. 2. HYPOATTENUATION OF THE | | | LIVER CONSISTENT WITH FATTY INFILTRATION. 3. PUNCTATE LEFT | | | RENAL CALCULUS WITHOUT VISIBLE URETERAL CALCULUS OR | | | HYDROURETERONEPHROSIS. Images were provided for interpretation on | | | September 01, 2017 at 1540 hours. Results were finalized at 1550 hours. | | | Dictated and Signed by: Gopi Douglass MD Electronically signed: | | | 09/01/2017 3:52 PM | | + + + + + | Procedure Note | + + | Camilo, Rad Results In - 09/01/2017 3:[address] ABDOMEN AND PELVIS | | 09/01/2017 3:20 PM CLINICAL HISTORY: SKIN REDNESS WITH SWELLINGMidline suprapubic | | abscess COMPARISON: None available TECHNIQUE: Axial images are performed through | | the abdomen and pelvis followingthe uneventful intravenous administration of 95 mL | | Omnipaque 350 contrast. Coronal and sagittal reformations are also performed. | | ABDOMEN FINDINGS: Imaged lung bases and mediastinum are unremarkable. There | | isgeneralized hypoattenuation of the liver, consistent with fatty infiltration. The | | gallbladder, spleen, pancreas, adrenal glands and right kidney areunremarkable. There | | is a punctate calculus inferiorly in the left renal sinus,without evident ureteral | | calculus or hydroureteronephrosis. The stomach, boweland appendix are unremarkable, | | without evidence of obstruction or visibleinflammation. No free air, ascites, | | pathologic lymph node enlargement or herniais evident. The abdominal vasculature | | appears patent and unremarkable. Thereis multilevel thoracolumbar Schmorl's node | | formation.There is generalized skin thickening within the anterior suprapubic | | abdominalwall, with underlying subcutaneous stranding. A tiny collection of gas | | ispresent in the left anterior subcutaneous tissues, with surrounding strandingand a | | probable small caliber tract extending toward the overlying skin, but novisible fluid | | collection. No radiopaque foreign body is evident. PELVIS FINDINGS: The bladder, | | uterus and adnexa are unremarkable. No free air,free fluid, pathologic lymph node | | enlargement, or hernia is evident. Osseousstructures are unremarkable. IMPRESSION - 1. | | SKIN THICKENING AND SUBCUTANEOUS STRANDING IN THE ANTERIOR, SUPRAPUBICABDOMINAL WALL | | WITH A SMALL LOCULUS OF SUBCUTANEOUS GAS AND PROBABLE SMALL SINUSTRACT BUT NO VISIBLE | | FLUID COLLECTION.2. HYPOATTENUATION OF THE LIVER CONSISTENT WITH FATTY INFILTRATION.3. | | PUNCTATE LEFT RENAL CALCULUS WITHOUT VISIBLE URETERAL CALCULUS | | ORHYDROURETERONEPHROSIS.Images were provided for interpretation on September 01, 2017 at 1540 | | hours. Resultswere finalized at 1550 hours.Dictated and Signed by: Gopi Douglass MD | | Electronically signed: 09/01/2017 3:52 PM | |PELVIS FINDINGS: The bladder, uterus and adnexa are unremarkable. No free air, | |free fluid, pathologic lymph node enlargement, or hernia is evident. Osseous | |structures are unremarkable. | | | |IMPRESSION - | |1. SKIN THICKENING AND SUBCUTANEOUS STRANDING IN THE ANTERIOR, SUPRAPUBIC | |ABDOMINAL WALL WITH A SMALL LOCULUS OF SUBCUTANEOUS GAS AND PROBABLE SMALL SINUS | |TRACT BUT NO VISIBLE FLUID COLLECTION. | | | |2. HYPOATTENUATION OF THE LIVER CONSISTENT WITH FATTY INFILTRATION. | | | |3. PUNCTATE LEFT RENAL CALCULUS WITHOUT VISIBLE URETERAL CALCULUS OR | |HYDROURETERONEPHROSIS. | | | |Images were provided for interpretation on September 01, 2017 at 1540 hours. Results | |were finalized at 1550 hours. | | | |Dictated and Signed by: Gopi Douglass MD | | Electronically signed: 09/01/2017 3:52 PM | + + + +---------+ + + | Performing | Address | City/State/Zipcode | Phone Number | | Organization | | | | + +---------+ + + | [facility] | | | | + +---------+ + + Extra Blue Top Tube (09/01/2017 2:44 PM PDT) + +-------+ + + + | Component | Value | Ref Range | Performed | Pathologist | | | | | At | Signature | + +-------+ + + + | Extra Blue | Done | | [facility] | | | Top Tube | | | [facility] | | | | | | [facility] | | | | | | CENTER - | | | | | | LABORATORY | | + +-------+ + + + + + | Specimen | + + | Blood | + + + + + + + | Performing | Address | City/State/Zipcode | Phone Number | | Organization | | | | + + + + + | [facility] | [address] | [place] | [phone] | | [facility] | | [address] | | | - LABORATORY | | | | + + + + + Extra Green Top Tube (09/01/2017 2:44 PM PDT) + +-------+ + + + | Component | Value | Ref Range | Performed | Pathologist | | | | | At | Signature | + +-------+ + + + | Extra Green | Done | | [facility] | | | Top Tube | | | [facility] | | | | | | [facility]ICAL | | | | | | CENTER - | | | | | | LABORATORY | | + +-------+ + + + + + | Specimen | + + | Blood | + + + + + + + | Performing | Address | City/State/Zipcode | Phone Number | | Organization | | | | + + + + + | [facility] | [address] | [place] | [phone] | | [facility] | | [address] | | | - LABORATORY | | | | + + + + + Culture, Wound, Smear (09/01/2017 2:41 PM PDT) + + + + + + | Component | Value | Ref Range | Performed | Pathologist | | | | | At | Signature | + + + + + + | Culture | 1+ Bacillus species, NOT | | [facility] | | | | B. anthracis | | [facility] | | | | | | MEDICAL | | | | | | CENTER - | | | | | | LABORATORY | | + + + + + + | Culture | 2+ Corynebacterium | | [facility] | | | | amycolatumComment: | | [facility] | | | | Consistent with skin | | MEDICAL | | | | adonis. | | CENTER - | | | | | | LABORATORY | | + + + + + + | Gram Stain | 1+ White Blood Cells | | [facility] | | | Result | | | [facility] | | | | | | MEDICAL | | | | | | CENTER - | | | | | | LABORATORY | | + + + + + + | Gram Stain | 1+ Epithelial cells | | [facility] | | | Result | | | [facility] | | | | | | MEDICAL | | | | | | CENTER - | | | | | | LABORATORY | | + + + + + + | Gram Stain | 1+ Gram positive cocci | | [facility] | | | Result | | | [facility] | | | | | | MEDICAL | | | | | | CENTER - | | | | | | LABORATORY | | + + + + + + + + | Specimen | + + | Tissue - Abdominal | | wall structure (body | | structure) | + + + + + | Narrative | Performed At | + + + | Interpretative standards do not exist for these organisms | [facility] | | | [facility] | | | [facility] | | | - LABORATORY | + + + + + + + + | Performing | Address | City/State/Zipcode | Phone Number | | Organization | | | | + + + + + | [facility] | [address] | [place], [place] | [phone] | | [facility] | | [address] | | | - LABORATORY | | | | + + + + + Basic Metabolic Panel (09/01/2017 2:40 PM PDT) + + + + + + | Component | Value | Ref Range | Performed | Pathologist | | | | | At | Signature | + + + + + + | Na | 135 (L) | 136 - 149 | [facility] | | | | | mmol/L | [facility] | | | | | | [facility] | | | | | | CENTER - | | | | | | LABORATORY | | + + + + + + | K | 3.9 | 3.5 - 5.1 | [facility] | | | | | mmol/L | [facility] | | | | | | MEDICAL | | | | | | CENTER - | | | | | | LABORATORY | | + + + + + + | Cl | 103 | 98 - 109 mmol/L | [facility] | | | | | | [facility] | | | | | | MEDICAL | | | | | | CENTER - | | | | | | LABORATORY | | + + + + + + | CO2 | 22 (L) | 24 - 31 mmol/L | [facility] | | | | | | [facility] | | | | | | [facility] | | | | | | CENTER - | | | | | | LABORATORY | | + + + + + + | Anion Gap | 10 | 3 - 16 mmol/L | [facility] | | | | | | [facility] | | | | | | [facility] | | | | | | CENTER - | | | | | | LABORATORY | | + + + + + + | Glucose | 106 | 70 - 109 mg/dL | [facility] | | | | | | [facility] | | | | | | MED[facility] | | | | | | CENTER - | | | | | | LABORATORY | | + + + + + + | BUN | 10 | 7 - 18 mg/dL | [facility] | | | | | | [facility] | | | | | | MEDICAL | | | | | | CENTER - | | | | | | LABORATORY | | + + + + + + | Creatinine | 0.76 | 0.60 - 1.30 | [facility] | | | | | mg/dL | [facility] | | | | | | [facility]ICAL | | | | | | CENTER - | | | | | | LABORATORY | | + + + + + + | eGFR if not | >60Comment: GLOMERULAR | >=60 | [facility] | | | | FILTRATION | mL/min/1.73m2 | [facility] | | | [place] | RATE,ESTIMATED | | MEDICAL | | | | mL/min/1.62x0Zcdq than | | CENTER - | | | | 60 Chronic kidney | | LABORATORY | | | | disease,if found over a | | | | | | 3-month period.Less than | | | | | | 15 Kidney failureFor | | | | | | | | | | | | Americans,multiply the | | | | | | calculated GFR by 1.21. | | | | | | | | | | + + + + + + | Calcium | 9.2 | 8.3 - 10.5 | [facility] | | | | | mg/dL | [facility] | | | | | | MEDICAL | | | | | | CENTER - | | | | | | LABORATORY | | + + + + + + | BUN/Creatin | 13.2 | | [facility] | | | ine Ratio | | | [facility] | | | | | | MEDICAL | | | | | | CENTER - | | | | | | LABORATORY | | + + + + + + + + | Specimen | + + | Blood | + + + + + + + | Performing | Address | City/State/Zipcode | Phone Number | | Organization | | | | + + + + + | [facility] | [address] | [place], [place] | [phone] | | [facility] | | [address] | | | - LABORATORY | | | | + + + + + Lactic Acid (09/01/2017 2:40 PM PDT) + +-------+ + + + | Component | Value | Ref Range | Performed | Pathologist | | | | | At | Signature | + +-------+ + + + | Lactate | 2.0 | 0.5 - 2.2 | [facility] | | | | | mmol/L | [facility] | | | | | | MEDICAL | | | | | | CENTER - | | | | | | LABORATORY | | + +-------+ + + + + + | Specimen | + + | Blood | + + + + + + + | Performing | Address | City/State/Zipcode | Phone Number | | Organization | | | | + + + + + | [facility] | [address] | [place] | [phone] | | [facility] | | [address] | | | - LABORATORY | | | | + + + + + CBC with Differential (09/01/2017 2:40 PM PDT) + + + + + + | Component | Value | Ref Range | Performed | Pathologist | | | | | At | Signature | + + + + + + | White Blood | 10.7 | 4.0 - 11.0 K/uL | [facility] | | | Cells | | | [facility] | | | | | | MEDICAL | | | | | | CENTER - | | | | | | LABORATORY | | + + + + + + | Red Blood | 4.89 | 3.70 - 5.20 | [facility] | | | Cells | | M/uL | [facility] | | | | | | MEDICAL | | | | | | CENTER - | | | | | | LABORATORY | | + + + + + + | Hemoglobin | 12.5 | 11.5 - 16.0 | [facility] | | | | | g/dL | [facility] | | | | | | MEDICAL | | | | | | CENTER - | | | | | | LABORATORY | | + + + + + + | Hematocrit | 39.5 | 34.0 - 47.0 % | [facility] | | | | | | [facility] | | | [facility] | | MEDICAL | | | | | | CENTER - | | | | | | LABORATORY | | + + + + + + | MCV | 80.7 (L) | 83.0 - 101.0 fL | [facility] | | | | | | [facility] | | | | | | [facility]ICAL | | | | | | CENTER - | | | | | | LABORATORY | | + + + + + + | MCH | 25.5 (L) | 28.0 - 35.0 pg | [facility] | | | | | | [facility] | | | | | | MEDICAL | | | | | | CENTER - | | | | | | LABORATORY | | + + + + + + | MCHC | 31.5 (L) | 32.0 - 36.0 | [facility] | | | | | g/dL | [facility] | | | | | | MEDICAL | | | | | | CENTER - | | | | | | LABORATORY | | + + + + + + | RDW-CV | 15.1 (H) | <15.0 % | [facility] | | | | | | [facility] | | | | | | MEDICAL | | | | | | CENTER - | | | | | | LABORATORY | | + + + + + + | Platelet | 280 | 140 - 440 K/uL | [facility] | | | Count | | | [facility] | | | | | | MEDICAL | | | | | | CENTER - | | | | | | LABORATORY | | + + + + + + | MPV | 8.8 | fL | [facility] | | | | | | [facility] | | | | | | MEDICAL | | | | | | CENTER - | | | | | | LABORATORY | | + + + + + + | % | 67.2 | 45.0 - 82.0 % | [facility] | | | Neutrophils | | | [facility] | | | | | | MEDICAL | | | | | | CENTER - | | | | | | LABORATORY | | + + + + + + | % | 25.2 | 20.0 - 45.0 % | [facility] | | | Lymphocytes | | | [facility] | | | | | | MEDICAL | | | | | | CENTER - | | | | | | LABORATORY | | + + + + + + | % Monocytes | 4.3 | 4.0 - 12.0 % | [facility] | | | | | | [facility] | | | | | | [facility]ICAL | | | | | | CENTER - | | | | | | LABORATORY | | + + + + + + | % | 1.9 | 0.0 - 5.0 % | [facility] | | | Eosinophils | | | [facility] | | | | | | MEDICAL | | | | | | CENTER - | | | | | | LABORATORY | | + + + + + + | % Basophils | 1.4 (H) | 0.0 - 1.0 % | [facility] | | | | | | [facility] | | | | | | MEDICAL | | | | | | CENTER - | | | | | | LABORATORY | | + + + + + + | Absolute | 7.20 | 1.80 - 8.50 | [facility] | | | Neutrophils | | K/uL | [facility] | | | | | | MEDICAL | | | | | | CENTER - | | | | | | LABORATORY | | + + + + + + | Absolute | 2.70 | 0.60 - 3.20 | [facility] | | | Lymphocytes | | K/uL | [facility] | | | | | | MEDICAL | | | | | | CENTER - | | | | | | LABORATORY | | + + + + + + | Absolute | 0.50 | 0.00 - 1.00 | [facility] | | | Monocytes | | K/uL | [facility] | | | | | | MEDICAL | | | | | | CENTER - | | | | | | LABORATORY | | + + + + + + | Absolute | 0.20 | 0.00 - 0.40 | [facility] | | | Eosinophils | | K/uL | [facility] | | | | | | MEDICAL | | | | | | CENTER - | | | | | | LABORATORY | | + + + + + + | Absolute | 0.20 (H) | 0.00 - 0.10 | [facility] | | | Basophils | | K/uL | [facility] | | | | | | MEDICAL | | | | | | CENTER - | | | | | | LABORATORY | | + + + + + + + + | Specimen | + + | Blood | + + + + + + + | Performing | Address | City/State/Zipcode | Phone Number | | Organization | | | | + + + + + | [facility] | [address] | [place] | [phone] | | [facility] | | [address] | | | - LABORATORY | | | | + + + + + documented in this encounter Visit Diagnoses + + | Diagnosis | + + | Abdominal wall abscess - Primary Cellulitis and abscess of trunk | + + documented in this encounter Administered Medications + +---------+ +--------+ +------+ | Medication Order | MAR | Action | Dose | Rate | Site | | | Action | Date | | | | + +---------+ +--------+ +------+ | clindamycin in dextrose | New Bag | 09/02/19 | 900 mg | 50 mL/hr | | | (CLEOCIN) IVPB 900 mg 900 mg, | | 18 4:33 | | | | | Intravenous, Administer over 60 | | PM PDT | | | | | Minutes, ONCE, 09/01/17 at | | | | | | | 1605, For 1 dose, Indications: | | | | | | | PURULENT SKIN AND SOFT TISSUE | | | | | | | INFECTION | | | | | | + +---------+ +--------+ +------+ +---+---+ | | | +---+---+ + +-------+ +--------+---+---+ | fentaNYL (PF) injection 50 mcg | Given | 09/02/19 | 50 mcg | | | | 50 mcg, Intravenous, ONCE, Fri | | 18 4:04 | | | | | 09/01/17 at 1600, For 1 dose | | PM PDT | | | | + +-------+ +--------+---+---+ +---+---+ | | | +---+---+ + +-------+ +--------+---+---+ | fentaNYL (PF) injection 75 mcg | Given | 09/02/19 | 75 mcg | | | | 75 mcg, Intravenous, ONCE, Fri | | 18 2:34 | | | | | 09/01/17 at 1415, For 1 dose | | PM PDT | | | | + +-------+ +--------+---+---+ +---+---+ | | | +---+---+ + +-------+ + +---+---+ | HYDROcodone-acetaminophen | Given | 09/02/19 | 1 tablet | | | | (NORCO) 10-325 mg per tablet 1 | | 18 6:01 | | | | | tablet 1 tablet, Oral, ONCE, Fri | | PM PDT | | | | | 09/01/17 at 1755, For 1 dose | | | | | | + +-------+ + +---+---+ +---+---+ | | | +---+---+ + +-------+ +--------+---+---+ | iohexol (OMNIPAQUE 350) 350 | Given | 09/02/19 | 95 mLs | | | | mg/mL injection 95 mL 95 mL, | | 18 3:40 | | | | | Intravenous, ONCE PRN, Other, | | PM PDT | | | | | Starting 09/01/17 at 1539, For | | | | | | | 1 dose, Cat Scanner | | | | | | + +-------+ +--------+---+---+ +---+---+ | | | +---+---+ + +-------+ +------+---+---+ | ondansetron (ZOFRAN) injection | Given | 09/02/19 | 4 mg | | | | 4 mg 4 mg, Intravenous, ONCE, | | 18 2:33 | | | | | 09/01/17 at 1420, For 1 dose | | PM PDT | | | | + +-------+ +------+---+---+ +---+---+ | | | +---+---+ + +---------+ +--------+-------+---+ | sodium chloride 0.9% (NS) bolus | New Bag | 09/02/19 | 1,000 | 2000 | | | 1,000 mL 1,000 mL, Intravenous, | | 18 2:32 | mLs | mL/hr | | | Administer over 30 Minutes, | | PM PDT | | | | | ONCE, 09/01/17 at 1405, For 1 | | | | | | | dose | | | | | | + +---------+ +--------+-------+---+ +---+---+ | | | +---+---+ + +---------+ +--------+-------+---+ | sodium chloride 0.9% (NS) bolus | New Bag | 09/02/19 | 1,000 | 2000 | | | 1,000 mL 1,000 mL, Intravenous, | | 18 4:34 | mLs | mL/hr | | | Administer over 30 Minutes, | | PM PDT | | | | | ONCE, 09/01/17 at 1610, For 1 | | | | | | | dose | | | | | | + +---------+ +--------+-------+---+ +---+---+ | | | +---+---+ documented in this encounter
--- OUTSIDE RECORDS SUMMARY | ~2019-11-06 | XMS | Encounter Summary ---
Demographics + + + | Address | [address] | | | [place] [address] | + + + | Home Phone | | + + + | Preferred Language | Unknown | + + + | Marital Status | | + + + | Roman Catholic Affiliation | Unknown | + + + | Race | Unknown | + + + | Ethnic Group | Unknown | + + + Author + + + | Author | [facility] | | | and [place] | + + + | Organization | [facility] | | | [...] [place], | | | | | [place] [address] | | + + + + + Care Team Providers + +------+ + | Care Naval Surface Fire Support Planner Name | Role | Phone | + +------+ + | Alisha Stovall | PCP | | | PA-C | | | + +------+ + Reason for Visit +---------+--------+ + | Reason | Onset | Comments | | | Date | | +---------+--------+ + | Results | 09/14/ | | | | 2018 | | +---------+--------+ + Encounter Details +--------+ + + + + | Date | Type | Department | Care Team | Description | +--------+ + + + + | 09/14/ | Telephone | [place] [facility] | Caity Joel | Results | | 2019 | | [facility] | MD [address] | | | | | CL[address] | [place] | | | | | [address], | [place] [address] | | | | | [place] [address] | [phone] | | | | | [phone] | | | +--------+ + + + [...] this encounter Miscellaneous Notes Telephone Encounter - Caity Joel MD - 09/14/2018 3:24 PM PDTSpoke with patient tiffanie nd went over brain MRI and EEG results with her. She expressed understanding. documented in this encounter Plan of Treatment +--------+---------+ + + + | Date | Type | Specialty | Care Team | Description | +--------+---------+ + + + | 11/18/ | Office | Neurology | Shirley Murdock NP | | | 2019 | Visit | | [address] | | | | | | [place] | | | | | | [address] | | | | | | [phone] | | | | | | | | +--------+---------+ + + + | 11/25/ | Office | Cardiology | Katheryn Hammonds DO | | | 2019 | Visit | | [address] | | | | | | [place] | | | | | | [address] | | | | | | | | +--------+---------+ + + + documented as of this encounter Visit Diagnoses Not on filedocumented in this encounter"
--- OUTSIDE RECORDS SUMMARY | ~2019-11-06 | XMS | Encounter Summary ---
Demographics + + + | Address | [address] | | | [place] [address] | + + + | Home Phone [...] Team Providers + +------+ + | Care Coach Wirer Name | Role | Phone | + [...] | | [address] | [facility] [place], [place] | gastrostomy tube (G | | | | for Health and | [address] | tube) placement, | | | | Healing, Building [address] | | follow-up exam; | | | | [facility] [place] | | Acute post-operative | | | | [address] | | pain; Nausea and | | [...] encounter Progress Notes Kenan Norton MD - 06/14/2019 8:30 AM PSTFormatting of [...] psychologist recommended by Dr. Lockett (Dr. Rodriguez [facility]) -- see PCP for ongoing management of [...] [address] | | | | | | [place], [place] | | | | | | [address] | | | | | | [phone] | | | | | | | | +--------+ + + + + | 11/17/ | Video/TeleH | Pain Management | Florencio Lockett, | | | 2019 | ealth-Sched | | PhD [address] | | | | uled | | [place], [place] | | | | | | [address] | | | | | | [phone] | | | | | | | | +--------+ + + + + | 12/01/ | Video/TeleH | Pain Management | Florencio Lockett, | | | 2019 | ealth-Sched | | PhD [address] | | | | uled | | [place], [place] | | | | | | [address] | | | | | | [phone] | | | | | | | | +--------+ + + + + | 01/06/ | Office | Plastic Surgery | Kuldip Harrell MD | | | 2019 | Visit | | [address] | | | | | | [place], [place] | | | | | | [address] | | | | | | [phone] | | | | | | | [...]
--- OUTSIDE RECORDS SUMMARY | ~2019-11-06 | XMS | Encounter Summary ---
Demographics + + + | Address | [address] | | | [place] [address] | + + + | Home Phone [...] Team Providers + +------+ + | Care Training Program Assistant Name | Role | Phone | [...] | | [address] | [facility] [place] | | | | | for Health and | [address] | | | | | Healing, [address] | [phone] | | | | | [place], [place] | | | | | | [address] | | | | | | [phone] | | | +--------+ + + + [...] [address] | | | | | | [place], [place] | | | | | | [address] | | | | | | [phone] | | | | | | | | +--------+ + + + + | 11/17/ | Video/TeleH | Pain Management | Florencio Lockett, | | | 2019 | ealth-Sched | | PhD [address] | | | | uled | | [place], [place] | | | | | | [address] | | | | | | [phone] | | | | | | | | +--------+ + + + + | 12/01/ | Video/TeleH | Pain Management | Florencio Lockett, | | | 2019 | ealth-Sched | | PhD [address] | | | | uled | | [place], [place] | | | | | | [address] | | | | | | [phone] | | | | | | | | +--------+ + + + + | 01/06/ | Office | Plastic Surgery | Kuldip Harrell MD | | | 2019 | Visit | | [address] | | | | | | [place], [place] | | | | | | [address] | | | | | | [phone] | | | | | | | | +--------+ + + + + documented as of this encounter Visit Diagnoses Not on filedocumented in this encounter"
--- OUTSIDE RECORDS SUMMARY | ~2019-11-06 | XMS | Encounter Summary ---
Demographics + + + | Address | [address] | | | [place] [address] | + + + | Home Phone [...] | + + +---------+ + | Jeovanny Hernándze | ECON | Unknown | | + + +---------+ + Care Team Providers + +------+ + | Care Decision Support Manager Name | Role | Phone | + +------+ + | Alisha Stovall PA-C | PCP | | + +------+ + Encounter Details +--------+ + + + + | Date | Type | Department | Care Team | Description | +--------+ + + + + | 05/10/ | MyChart | Digestive Health | Kenan Norton, | Recent UGI study | | 2020 | Encounter | Center at [facility] [address] | MD [address] | results | | | | [address] | [place], [place] | | | | | for Health and | [address] | | | | | Healing, [address] | [phone] | | | | | [place], [place] | | | | | | [address] | | | | | | | [...] [address] | | | | | | [place], [place] | | | | | | [address] | | | | | | [phone] | | | | | | | | +--------+ + + + + | 11/17/ | Video/TeleH | Pain Management | Florencio Lockett, | | | 2019 | ealth-Sched | | PhD [address] | | | | uled | | [place], [place] | | | | | | [address] | | | | | | [phone] | | | | | | | | +--------+ + + + + | 12/01/ | Video/TeleH | Pain Management | Florencio Lockett, | | | 2019 | ealth-Sched | | PhD [address] | | | | uled | | [place], [place] | | | | | | [address] | | | | | | [phone] | | | | | | | | +--------+ + + + + | 01/06/ | Office | Plastic Surgery | Kuldip Harrell MD | | | 2019 | Visit | | [address] | | | | | | [place], [place] | | | | | | [address] | | | | | | [phone] | | | | | | | | +--------+ + + + + documented as of this encounter Visit Diagnoses Not on filedocumented in this encounter"
--- OUTSIDE RECORDS SUMMARY | ~2019-11-06 | XMS | Encounter Summary ---
Demographics + + + | Address | [address] | | | [place] [address] | + + + | Home Phone [...] Team Providers + +------+ + | Care Child'S Nurse Name | Role | Phone | + [...] | | | | | esophagitis | [place], [place] | floor | | | | | presence not | [address] | [place], [place] | | | | | specified | Phone: | [phone] | | | | | Procedures | [phone] | Phone: | | | | | CONSULT TO | Fax: | [phone] | | | | | GI PROCEDURE | [phone] | Fax: | | | | | UNIT: 24 HR | | [phone] | | | | | PH | [...] | | | | geal reflux | [facility] | [place] for | | | | | disease, | Rd | Health and | | | | | esophagitis | [place], [place] | Healing, | | | | | presence not | [address] | [address] | | | | | specified | Phone: | [place], [place] | | | | | Procedures | [phone] | [address] | | | | | CONSULT TO | Fax: | Phone: | | | | | GI PROCEDURE | [phone] | [phone] | | | | | UNIT: | | Fax: | | | | | ESOPHAGEAL | | [phone] | | | | | MANOMETRY | | | | | | | CONSULT TO | | | | | | | GI PROCEDURE | | | | | | | UNIT: | | | | | | | ESOPHAGEAL | | | | | | | MANOMETRY W | | | | | | | 24 HR PH ND | | | | | | | ESOPHAGEAL | | | | | | | MOTILITY | | | | | | | STUDY | | | | | | | W/INTERP AND | | | | | | | REPORT ND | | | | | | | G-ESOPH | | | | | | | REFLX TST | | | | | | | W/ELECTROD | | | +--------+--------+ + + + + Encounter Details +--------+ + + + + | Date | Type | Department | Care Team | Description | +--------+ + + + + | 11/23/ | Naval Engineer | Digestive Health | Petcu, Aura, ACNP | Gastroesophageal | | 2018 | | Center at [facility] [address] | [address] | reflux disease, | | | | [address] | [address] [place], | esophagitis presence | | | | for Health and | [place] [address] | not specified | | | | [facility] | [phone] | (Primary Dx) | | | | [place], [place] | | | | | | [address] | | | | | | [phone] | | | +--------+ + + + [...] [address] | | | | | | [place], [place] | | | | | | [address] | | | | | | [phone] | | | | | | | | +--------+ + + + + | 11/17/ | Video/TeleH | Pain Management | Florencio Lockett, | | | 2019 | ealth-Sched | | PhD [address] | | | | uled | | [place], [place] | | | | | | [address] | | | | | | [phone] | | | | | | | | +--------+ + + + + | 12/01/ | Video/TeleH | Pain Management | Florencio Lockett, | | | 2019 | ealth-Sched | | PhD [address] | | | | uled | | [place], [place] | | | | | | [address] | | | | | | [phone] | | | | | | | | +--------+ + + + + | 01/06/ | Office | Plastic Surgery | uKldip Harrell MD | | | 2019 | Visit | | [address] | | | | | | [place], [place] | | | | | | [address] | | | | | | [phone] | | | | | | | | +--------+ + + + + documented as of this encounter Visit Diagnoses + + | Diagnosis | + + | Gastroesophageal reflux disease, esophagitis presence not specified - Primary | + + documented in this encounter"
--- OUTSIDE RECORDS SUMMARY | ~2019-11-06 | XMS | Encounter Summary ---
Demographics + + + | Address | [address] | | | [place] [address] | + + + | Home Phone [...] Team Providers + +------+ + | Care Motion Picture Projectionist Apprentice Name | Role | Phone | + +------+ + | Alisha Stovall PA-C | PCP | | + +------+ + Reason for Visit + + + | Reason | Comments | + + + | Outside Records | | | Received | | + + + Encounter Details +--------+ + + + + | Date | Type | Department | Care Team | Description | +--------+ + + + + | 11/28/ | Abstract | Digestive Health | Kenan Norton, | Outside Records | | 2019 | | [place] at [facility] [address] | [address] | Received | | | | [address] [place] | [facility] [place] | | | | | for Health and | [address] | | | | | [facility] 2 | [phone] | | | | | [place], [place] | | | | | | [address] | | | | | | | [...] | | 2019 | Visit | | [address] | | | | | | [place], [place] | | | | | | [address] | | | | | | [phone] | | | | | | | | +--------+ + + + + | 11/17/ | Video/TeleH | Pain Management | Florencio Lockett, | | | 2019 | ealth-Sched | | PhD [address] | | | | uled | | [place], [place] | | | | | | [address] | | | | | | [phone] | | | | | | | | +--------+ + + + + | 12/01/ | Video/TeleH | Pain Management | Florencio Lockett, | | | 2019 | ealth-Sched | | PhD [address] | | | | uled | | [place], [place] | | | | | | [address] | | | | | | [phone] | | | | | | | | +--------+ + + + + | 01/06/ | Office | Plastic Surgery | Kuldip Harrell MD | | | 2019 | Visit | | [address] | | | | | | [place], [place] | | | | | | [address] | | | | | | [phone] | | | | | | | | +--------+ + + + + documented as of this encounter Visit Diagnoses Not on filedocumented in this encounter"
--- OUTSIDE RECORDS SUMMARY | ~2019-11-06 | XMS | Encounter Summary ---
Demographics + + + | Address | [address] | | | [place] [address] | + + + | Home Phone | | + + + | Preferred Language | Unknown | + + + | Marital Status | | + + + | Jew Affiliation | Unknown | + + + | Race | Unknown | + + + | Ethnic Group | Unknown | + + + Author + + + | Author | [facility] | | | and [place] | + + + | Organization | [facility] | | | [...] [place], | | | | | [place] [address] | | + + + + + Care Team Providers + +------+ + | Care Emergency Registrar Name | Role | Phone | + [...] Provider Unknown | | | | | [place], [place] | | | | | | [address] | (Fax) | | | | | [phone] | | | +--------+ + + + [...] | Visit | | [address] | | | | | | [place] | | | | | | [address] | | | | | | [phone] | | | | | | | | +--------+---------+ + + + | 11/25/ | Office | Cardiology | Katheryn Hammonds DO | | | 2019 | Visit | | [address] | | | | | | [place] | | | | | | [id number] | | | | | | | [...]
--- OUTSIDE RECORDS SUMMARY | ~2019-11-06 | XMS | Encounter Summary ---
Demographics + + + | Address | [address] | | | [place] [address] | + + + | Home Phone [...] Team Providers + +------+ + | Care Nut Tapper Name | Role | Phone | + [...] Refill Request | | 2020 | | [place] [facility] [address] | [address] | (scopolamine) | | | | [address] [place] | [place], [place] | | | | | for Health and | [address] | | | | | [facility] 2 | | | | | | [place], [place] | | | | | | [address] | | | | | | | [...] | | 2019 | Visit | | [address] | | | | | | [place], [place] | | | | | | [address] | | | | | | [phone] | | | | | | | | +--------+ + + + + | 11/17/ | Video/TeleH | Pain Management | Florencio Lockett, | | | 2019 | ealth-Sched | | PhD [address] | | | | uled | | [place], [place] | | | | | | [address] | | | | | | [phone] | | | | | | | | +--------+ + + + + | 12/01/ | Video/TeleH | Pain Management | Florencio Lockett, | | | 2019 | ealth-Sched | | PhD [address] | | | | uled | | [place], [place] | | | | | | [address] | | | | | | [phone] | | | | | | | | +--------+ + + + + | 01/06/ | Office | Plastic Surgery | Kuldip Harrell MD | | | 2019 | Visit | | [address] | | | | | | [place], [place] | | | | | | [address] | | | | | | [phone] | | | | | | | | +--------+ + + + + documented as of this encounter Visit Diagnoses Not on filedocumented in this encounter"
--- OUTSIDE RECORDS SUMMARY | ~2019-11-06 | XMS | Encounter Summary ---
Demographics + + + | Address | [address] | | | [place] [address] | + + + | Home Phone | | + + + | Preferred Language | Unknown | + + + | Marital Status | | + + + | Church Affiliation | Unknown | + + + | Race | Unknown | + + + | Ethnic Group | Unknown | + + + Author + + + | Author | [facility] | | | and [place] | + + + | Organization | [facility] | | | [...] [place], | | | | | [place] [address] | | + + + + + Care Team Providers + +------+ + | Care Tooth Grinder Name | Role | Phone | + +------+ + | Alisha Stovall | PCP | | | PA-C | | | + +------+ + Reason for Visit + +--------+ + | Reason | Onset | Comments | | | Date | | + +--------+ + | Medical Problem | 08/27/ | | | | 2020 | | + +--------+ + Encounter Details +--------+ + + + + | Date | Type | Department | Care Team | Description | +--------+ + + + + | 08/27/ | Telephone | [facility] | Shirley Murdock NP | Medical Problem | | 2020 | | HOSPITAL NEUROLOGY | [address] [facility] | | | | | CLINIC [address] | [place] | | | | | [address] [place], | [address] | | | | | [place] [address] | [phone] | | | | | [phone] | | | +--------+ + + + [...] this encounter Miscellaneous Notes Telephone Encounter - Betty Hough LPN - 08/28/2019 2:19 PM PDT05.06.20- PA for aim ovig via cover my meds were approved effective from 08/28/2019 through 11/28/2019. Called josé luis Pretty know e lephone Encounter - Betty Hough LPN - 08/28/2019 12:08 PM PDT05.06.20- PA started for aimovig via cover my meds will wait for approval or denile. Betty Hough LPN elephone EncounTaiwo Vora - 08/28/2019 11:05 AM PDTPt. Called stating they had an appt with Han carvajal and a shot was ordered at [facility] in [place]. They havent gotten the RxElectronically si gned by Taiwo Coombs at 08/28/2019 11:08 AM PDTdocumented in this encounter Plan of Treatment +--------+---------+ + + + | Date | Type | Specialty | Care Team | Description | +--------+---------+ + + + | 11/18/ | Office | Neurology | Shirley Murdock NP | | | 2019 | Visit | | [address] | | | | | | [place] | | | | | | [address] | | | | | | [phone] | | | | | | | | +--------+---------+ + + + | 08/04/ | Office | Cardiology | Katheryn Hammonds DO | | | 2019 | Visit | | [address] | | | | | | [place] | | | | | | [address] | | | | | | | | +--------+---------+ + + + documented as of this encounter Visit Diagnoses Not on filedocumented in this encounter"
--- OUTSIDE RECORDS SUMMARY | ~2019-11-06 | XMS | Encounter Summary ---
Demographics + + + | Address | [address] | | | [place] [address] | + + + | Home Phone [...] Team Providers + +------+ + | Care Automobile And Property Underwriter Name | Role | Phone | + +------+ + | Alisha Stovall PA-C | PCP | | + +------+ + Encounter Details +--------+ + + + + | Date | Type | Department | Care Team | Description | +--------+ + + + + | 06/06/ | Abstract | Digestive Health | Clinic, Surgery | | | 2019 | | [place] [address] [address] | | | | | | [facility] | | | | | | for Health and | | | | | | Healing, [address] | | | | | | [place], [place] | | | | | | [address] | | | | | | [phone] | | | +--------+ + + + [...] | Visit | | MD [address] | | | | | | [place], [place] | | | | | | [address] | | | | | | [phone] | | | | | | | | +--------+ + + + + | 11/17/ | Video/TeleH | Pain Management | Florencio Lockett, | | | 2019 | ealth-Sched | | PhD [address] | | | | uled | | [place], [place] | | | | | | [address] | | | | | | [phone] | | | | | | | | +--------+ + + + + | 12/01/ | Video/TeleH | Pain Management | Florencio Lockett, | | | 2019 | ealth-Sched | | PhD [address] | | | | uled | | [place], [place] | | | | | | [address] | | | | | | [phone] | | | | | | | | +--------+ + + + + | 01/06/ | Office | Plastic Surgery | Kuldip Harrell MD | | | 2020 | Visit | | [address] | | | | | | [place], [place] | | | | | | [address] | | | | | | [phone] | | | | | | | | +--------+ + + + + documented as of this encounter Visit Diagnoses Not on filedocumented in this encounter"
--- OUTSIDE RECORDS SUMMARY | ~2019-11-06 | XMS | Encounter Summary ---
Demographics + + + | Address | [address] | | | [place] [address] | + + + | Home Phone [...] Team Providers + +------+ + | Care Metal Sprayer Production Name | Role | Phone | + +------+ + | Alisha Stovall PA-C | PCP | | + +------+ + Encounter Details +--------+ + + + + | Date | Type | Department | Care Team | Description | +--------+ + + + + | 06/23/ | Outpatient Physical Therapist Assistant | Digestive Health | Kenan Norton, | | | 2019 | | Center at [facility] [address] | MD [address] | | | | | [address] [place] | [facility] [place] | | | | | for Health and | [address] | | | | | Healing, [address] | [phone] | | | | | [place], [place] | | | | | | [address] | | | | | | [phone] | | | +--------+ + + + [...] | | | | | | [place], [place] | | | | | | [address] | | | | | | [phone] | | | | | | | | +--------+ + + + + | 11/17/ | Video/TeleH | Pain Management | Florencio Lockett, | | | 2019 | ealth-Sched | | PhD [address] | | | | uled | | [place], [place] | | | | | | [address] | | | | | | [phone] | | | | | | | | +--------+ + + + + | 12/01/ | Video/TeleH | Pain Management | Florencio Lockett, | | | 2019 | ealth-Sched | | PhD [address] | | | | uled | | [place], [place] | | | | | | [address] | | | | | | [phone] | | | | | | | | +--------+ + + + + | 01/06/ | Office | Plastic Surgery | Kuldip Harrell MD | | | 2019 | Visit | | [address] | | | | | | [place], [place] | | | | | | [address] | | | | | | [phone] | | | | | | | | +--------+ + + + + documented as of this encounter Visit Diagnoses Not on filedocumented in this encounter"
--- OUTSIDE RECORDS SUMMARY | ~2019-11-06 | XMS | Encounter Summary ---
Demographics + + + | Address | [address] | | | [place] [address] | + + + | Home Phone [...] Team Providers + +------+ + | Care Development Geologist Name | Role | Phone | + [...] + + + + | 11/23/ | Documentati | PEE [facility] at [facility] | Lab, Gi Procedure | Medical Records | | 2018 | on | [facility] | | Review | | | | [facility] | | | | | | Health and Healing, | | | | | | [address] | | | | | | [place], [place] | | | | | | [address] | | | | | | [phone] | | | +--------+ + + + [...] | | | | | | [place], [place] | | | | | | [address] | | | | | | [phone] | | | | | | | | +--------+ + + + + | 11/17/ | Video/TeleH | Pain Management | Florencio Lockett, | | | 2019 | ealth-Sched | | PhD [address] | | | | uled | | [place], [place] | | | | | | [address] | | | | | | [phone] | | | | | | | | +--------+ + + + + | 12/01/ | Video/TeleH | Pain Management | Florencio Lockett, | | | 2019 | ealth-Sched | | PhD [address] | | | | uled | | [place], [place] | | | | | | [address] | | | | | | [phone] | | | | | | | | +--------+ + + + + | 01/06/ | Office | Plastic Surgery | Kuldip Harrell MD | | | 2019 | Visit | | [address] | | | | | | [place], [place] | | | | | | [address] | | | | | | [phone] | | | | | | | | +--------+ + + + + documented as of this encounter Visit Diagnoses Not on filedocumented in this encounter"
--- OUTSIDE RECORDS SUMMARY | ~2019-11-06 | XMS | Encounter Summary ---
Demographics + + + | Address | [address] | | | [place] [address] | + + + | Home Phone [...] Team Providers + +------+ + | Care Dairy Powder Mixer Operator Name | Role | Phone | + +------+ + | Alisha Stovall PA-C | PCP | | + +------+ + Encounter Details +--------+ + + + + | Date | Type | Department | Care Team | Description | +--------+ + + + + | 06/11/ | Telephone | Digestive Health | Nellie Ybarra, | | | 2019 | | Center at [facility] [address] | [facility] [address] | | | | | [address] | [facility] [place] | | | | | for Health and | [address] | | | | | Healing, [address] | [phone] | | | | | [place], [place] | | | | | | [address] | | | | | | [phone] | | | +--------+ + + + [...] [address] | | | | | | [place], [place] | | | | | | [address] | | | | | | [phone] | | | | | | | | +--------+ + + + + | 11/17/ | Video/TeleH | Pain Management | Florencio Lockett, | | | 2019 | ealth-Sched | | PhD [address] | | | | uled | | [place], [place] | | | | | | [address] | | | | | | [phone] | | | | | | | | +--------+ + + + + | 12/01/ | Video/TeleH | Pain Management | Florencio Lockett, | | | 2019 | ealth-Sched | | PhD [address] | | | | uled | | [place], [place] | | | | | | [address] | | | | | | [phone] | | | | | | | | +--------+ + + + + | 01/06/ | Office | Plastic Surgery | Kuldip Harrell MD | | | 2019 | Visit | | [address] | | | | | | [place], [place] | | | | | | [address] | | | | | | [phone] | | | | | | | | +--------+ + + + + documented as of this encounter Visit Diagnoses Not on filedocumented in this encounter"
--- OUTSIDE RECORDS SUMMARY | ~2019-11-06 | XMS | Encounter Summary ---
Demographics + + + | Address | [address] | | | [place] [address] | + + + | Home Phone [...] Team Providers + +------+ + | Care Asbestos Removal Supervisor Name | Role | Phone | [...] + + + + | 05/30/ | Hospital | [facility] [address] | Kenan Norton, | | | 2019 - | Encounter | [address] | [address] | | | | | [place], [place] | [place], [place] | | | 06/02/ | | [address] | [address] | | | 2019 | | [phone] | [phone] | | | | | | | [...] note might be different from adryan vann. [facility] & SCIENCE [facility] RED SURGERY INPATIENT DISCHARGE SUMMARY Author: IVONNE [...] assist with nutrition. She was admitted to [facility] 05/30/2019 for the above list ed procedures. She tolerated the procedure well with no complications. She was kept [facility] for observation. Her diet was advanced to [...] suppository rectally once daily as needed. Remove mophead trimmer and wrapper, insert 1 suppository into rectum and retain [...] Take 40 mg by mouth once daily. KWCE-PLOJ-MXMKT (PABA) ORAL Take 1 Dose by mouth [...] 'after hours' URGENT problems please call the [facility] dull coat mill operator at and ask bianca kim the "Red Surgery resident on-call". For chest [...] to Prevent Infection", log into y our IS Decisions account at [email or web address]. You can enter U010 in the "[email or web address] y" search box. Not on Cent[employer] Software[employer]? Review the Cent[employer] Software[employer] section of your After Visit Summary for directions on ho w to sign up. Current as of: April 11, 2018 Content Version: .[id number] [employer]. Care instructions adapted under license by [facility] [employer] & [facility] [place]. If you have questions about a medical condition or this instr uction, always ask your healthcare professional. [employer] disclaims any denise anty or liability for [...] Outstanding labs/studies: None Lucero Arias MD PhD [facility] General Surgery Red Surgery Pager # [phone] Associated attestation - Aysha Meyer MD - 06/02/2019 3:58 PM PSTI saw and evaluated the patient. I agree with the findings and the plan of care as documented in the resident s note. Aysha Meyer MD [facility] [address] [place] [id number] documented in this encounter Discharge Instructions Discharge [...] hours by calling the surgery office at [phone]. - After hours, weekends and holidays, you may call the hospital dull coat mill operator at [phone] an d have the cotton machine operator Red Surgery Team paged.Electronically signed by Lucero [...] abdominal precautions.Electronically signed by JASON López at 020 3:25 PM PST Discharge Instr - Diet [...] ex lap and g tube placement to [facility] ist with nutrition. She was admitted to [facility] 05/30/2019 for the above listed procedures. Sh morelia tolerated the procedure well with no [...] 'after hours' URGENT problems please call the [facility] dull coat mill operator at and ask bianca kim the "Red Surgery resident on-call". For chest pain, severe symptoms or difficulty breathing please call [phone] or go to your local ER. Do [...] or tender, or there is pus dr aining from it. Urine is leaking from the [...] to Prevent Infection", log into y our IS Decisions account at [email or web address]. You can enter U010 in the "[employer]" search box. Not on IS Decisions? Review the Centric Softwarehart section of your After Visit Summary for directions on leonel w to sign up. Current as of: April 11, 2018 Content Version: [id number] [employer]. Care instructions adapted under license by [facility] & [facility] [place]. If you have questions about a medical condition or this instr uction, always ask your healthcare professional. [employer] disclaims any denise anty or liability for your use of this information. Marilee Gautam RN - 06/02/2019Patient Education Materials: Feeding tube, gastrostomy [...] through Care Everywhere.Feeding Tube: G eneral Info (Bangladeshi)Tube Feeding: Home (Bangladeshi)PEG (Percutaneous Endoscopic Gastrostomy): Post-op (Bangladeshi)[facility]: Gastrostomy Tube Use and Care (Bangladeshi)Indwelling Urinary Catheter Ca re: General Info (Bangladeshi)documented in this encounter Medications at Time of [...] | | | | | | | ([id number] | | | | | | | [...] Doxycycline Rash Percocet [Oxycodone-Acetaminophen] Nausea and Vomiting [place] Oil Hives and Nausea and Vomiting Seroquel [...] this note might be different from the [facility] DEPARTMENT OF SURGERY Red Surgery Admission [...] Fill and pull 06/[address] clinic. Follow-up [facility] Dr. Norton in 2 weeks. BP 108/54 [...] olmos teaching complete. Lucero Arias MD PhD [facility] General Surgery Red Surgery Pager #[phone] Associated attestation - Aysha Meyer MD - 06/02/2019 4:21 PM PSTI saw and evaluated the patient. I agree with the findings and the plan of care as documented in the resident s note. Aysha Meyer MD [facility] [address] [place] [address] Kelly Baker MD - 06/01/2019 2:43 PM [...] J-tube. Her pain is improved by m sobeida. Associated symptoms include: urinary retention. She also [...] Doxycycline Rash Percocet [Oxycodone-Acetaminophen] Nausea and Vomiting [place] Oil Hives and Nausea and Vomiting Seroquel [...] Diazepam Kelly Baker MD Chronic Pain Fellow [facility] [id number] Associated attestation - Sammi Ayala MD - [...] pain control. Rachel Ward MD MIS Fellow [id number] Lucero Ge MD - 05/31 12:28 PM [...] improved pain control. Lucero Arias MD PhD [facility] General Surgery Red Surgery Pager # [phone] Associated attestation - Kenan Norton MD - 06/02/2019 9:09 PM PSTA resident assisted with documenting this service. I saw the patient and reviewed and verified all information d ocumented by the resident, and made modifications to such information, when appropriate. Kenan Norton MD, MS Assistant Manager/Embalmer [facility] Bariatric Surgery documented in this encounter Plan of Treatment +--------+ + + + + | Date | Type | Specialty | Care Team | Description | +--------+ + + + + | 11/13/ | Office | Gastroenterology | Cassidy Schneider, | | 2019 | Visit | | [address] | | | | | | [place], [place] | | | | | | [address] | | | | | | [phone] | | | | | | | | +--------+ + + + + | 11/17/ | Video/TeleH | Pain Management | Florencio Lockett, | | | 2019 | ealth-Sched | | PhD [address] | | | | uled | | [place], [place] | | | | | | [address] | | | | | | [phone] | | | | | | | | +--------+ + + + + | 12/01/ | Video/TeleH | Pain Management | Florencio Lockett, | | | 2019 | ealth-Sched | | PhD [address] | | | | uled | | [place], [place] | | | | | | [address] | | | | | | [phone] | | | | | | | | +--------+ + + + + | 01/06/ | Office | Plastic Surgery | Kuldip Harrell MD | | 2019 | Visit | | [address] | | | | | | [place], [place] | | | | | | [address] | | | | | | [phone] | | | | | | | [...] + + + + | [facility] | [address] | ms | [facility] [...] + + + + + | [facility] | [address] | [place], [place] | | | CARDIOLOGY | [address] | [address] | | + + + + + MAGNESIUM, PLASMA (06/02/2019 3:54 AM PST) + +-------+ + + + | Component | Value | Ref Range | Performed | Pathologist | | | | | At | Signature | + +-------+ + + + | MAGNESIUM,P | 1.8 | 1.6 - 2.6 mg/dL | [facility] | | | LASMA | | | [...] | + + + + + | [facility] | [address] | [place] [address] | | | SARAH, ADONAY | SAMMI [...] | | | LABORATORY | | | QATARI | | | SERVICES, | | | [...] MDRD equation recommended by the National | MISU | | Kidney Disease Education Program. Estimated [...] | + + + + + | [facility] | [address] | [place] [address] | | | SERVICES, CORE | [address] | | | + + + + + X-RAY PORTABLE ABD TUBE OR CATH EVAL W CONTRAST (06/01/2019 1:25 PM PST) + + | Specimen | + + | | + + + + + | Narrative | Performed At | + + + | EXAM: MO ABD TUBE OR CATH EVAL W CONTRAST. [...] Note | + + | Service Account, Over 40 Females Res In Interface - 06/01/2019 5:14 PM PST EXAM: MO ABD TUBE | | OR CATH EVAL [...] | + + + + + | [facility] | [address] [facility] | [place], [place] | | | CARDIOLOGY | [address] | [address] | | + + + + + [...] | | | LABORATORY | | | QATARI | | | SERVICES, | | | [...] MDRD equation recommended by the National | MISU | | Kidney Disease Education Program. Estimated [...] | + + + + + | [facility] | [address] [facility] | [place] [address] | | | SERVICES, CORE | SAMMI [...] + | PEE FORMAN | [address] | [place], [place] | | | TUSHAR KING OF STACEY | [facility] | [address] | | | TESTS | | | [...] | | | POC | | | HILL, POINT | | [...] - MARQUAM | [address] | [place], [place] | | | TUSHAR KING OF CARE | [facility] | [address] | | | TESTS | | | [...] FORMAN | [address] | [place], [place] | | | CHRISTINE POINT OF CARE | [address] | [address] | | | TESTS | | | [...] + | Dehydration | + + | Nausea and vomiting, intractability of vomiting not specified, unspecified vomiting | | type | + + | Epigastric pain Abdominal pain, epigastric | + + | Malnutrition, unspecified type (HCC) | + + | Nausea with dry heaving Nausea alone | + + | GERD (gastroesophageal reflux disease) Esophageal reflux | + + | Poor nutrition Unspecified [...] | | ONCE, 1 dose, 05/31/19 at 0800 | | AM PST | [...] | 60 mL | | | | (GASTROGRAFIN, MD-GASTROVIEW) | | 20 1:04 | | | [...] 8:41 | | | | | dose, [place] 06/02/19 at 2045 | | PM PST | | | | + +-------+ +--------+---+---+ +---+---+ | | | +---+---+ + +-------+ +-------+---+---+ | FLUoxetine (PROZAC) capsule 40 | Given | 06/02/19 | 40 mg | | | | mg 40 mg, oral, DAILY, First | | 20 9:13 | | | | | dose on [facility] 05/30/19 at 1715, Until | | AM [...] | | | 05/30/19 at 1549, Until 05/31/19 | | | | | [...] | | | | First dose on [facility] 05/30/19 at 2100, | | PM PST [...] | | | | at 0600, Until Mary 05/30/19 at 1713 | | | | | [...] 06/02/19 | | | | | % prerna urethral, ONCE, 1 dose, | | 20 [...] | | | | | modification) on Mon06/01/19 at | | | | | | [...] | | | | | NEEDED, Starting [facility] 05/30/19 at | | | | | [...] | | | | First dose on [facility] 05/30/19 at 2100, | | PM PST [...] injection 1 dose, | | | Starting [facility] 05/30/19 at 1128, | | | Until [facility] 05/30/19 at 1136 | | + +---+ [...] AM PST | | | | | [facility] 05/30/19 at 1715, Last dose on | [...] | | | | First dose on [facility] 05/30/19 at 2100, | | PM PST [...] +---------+---+---+ +---+---+ | | | +---+---+ + + [...] Auricula | | dose, First dose on [facility] 05/30/19 at | | | | | [...] | | | | | reorder) on [place] 06/02/19 at 1015 | | | | [...] DAILY, First dose on Mon | | 9:14 | | | | | 05/31/19 [...]
--- OUTSIDE RECORDS SUMMARY | ~2019-11-06 | XMS | Encounter Summary ---
Demographics + + + | Address | [address] | | | [place] [address] | + + + | Home Phone [...] Providers + +------+ + | Care Manager Heavy Duty Name | Role | Phone | + +------+ + | Alisha Stovall PA-C | PCP | | + +------+ + Encounter Details +--------+ + + + + | Date | Type | Department | Care Team | Description | +--------+ + + + + | 10/19/ | Telephone | Digestive Health | Kenan Norton, | | | 2019 | | Center at [facility] [address] | MD [address] | | | | | [address] [place] | [place], [place] | | | | | [facility] and | [address] | | | | | [place], [address] | [phone] | | | | | [place], [place] | | | | | | [address] | | | | | | [phone] | | | +--------+ + + + [...] [address] | | | | | | [place], [place] | | | | | | [address] | | | | | | [phone] | | | | | | | | +--------+ + + + + | 11/17/ | Video/TeleH | Pain Management | Florencio Lockett, | | | 2019 | ealth-Sched | | PhD [address] | | | | uled | | [place], [place] | | | | | | [address] | | | | | | [phone] | | | | | | | | +--------+ + + + + | 12/01/ | Video/TeleH | Pain Management | Florencio Lockett, | | | 2019 | ealth-Sched | | PhD [address] | | | | uled | | [place], [place] | | | | | | [address] | | | | | | [phone] | | | | | | | | +--------+ + + + + | 01/06/ | Office | Plastic Surgery | Kuldip Harrell MD | | | 2019 | Visit | | [address] | | | | | | [place], [place] | | | | | | [address] | | | | | | [phone] | | | | | | | | +--------+ + + + + documented as of this encounter Visit Diagnoses Not on filedocumented in this encounter"
--- OUTSIDE RECORDS SUMMARY | ~2019-11-06 | XMS | Encounter Summary ---
Demographics + + + | Address | [address] | | | [place] [address] | + + + | Home Phone [...] Team Providers + +------+ + | Care Senior Cost Estimator Name | Role | Phone | + +------+ + | Alisha Stovall PA-C | PCP | | + +------+ + Reason for Visit + + + | Reason | Comments | + + + | Question | | + + + Encounter Details +--------+ + + + + | Date | Type | Department | Care Team | Description | +--------+ + + + + | 06/24/ | Telephone | Digestive Health | Kenan Norton, | Question | | 2019 | | Center at [facility] [address] | MD [address] | | | | | [address] | [place], [place] | | | | | for Health and | [address] | | | | | Healing, [address] | | | | | | [place], [place] | | | | | | [address] | | | | | | | [...] | | 2020 | Visit | | [address] | | | | | | [place], [place] | | | | | | [address] | | | | | | [phone] | | | | | | | | +--------+ + + + + | 11/17/ | Video/TeleH | Pain Management | Florencio Lockett, | | | 2019 | ealth-Sched | | PhD [address] | | | | uled | | [place], [place] | | | | | | [address] | | | | | | [phone] | | | | | | | | +--------+ + + + + | 12/01/ | Video/TeleH | Pain Management | Florencio Lockett, | | | 2019 | ealth-Sched | | PhD [address] | | | | uled | | [place], [place] | | | | | | [address] | | | | | | [phone] | | | | | | | | +--------+ + + + + | 01/06/ | Office | Plastic Surgery | Kuldip Harrell MD | | | 2019 | Visit | | [address] | | | | | | [place], [place] | | | | | | [address] | | | | | | [phone] | | | | | | | | +--------+ + + + + documented as of this encounter Visit Diagnoses Not on filedocumented in this encounter"
--- OUTSIDE RECORDS SUMMARY | ~2019-11-06 | XMS | Encounter Summary ---
Demographics + + + | Address | [address] | | | [place] [address] | + + + | Home Phone [...] Team Providers + +------+ + | Care Line Repairer Tower Name | Role | Phone | + [...] | | 2018 | | Preventive at [facility] | [facility] [address] | order (Echo and [place] | | | | [address] | [address] [place], | stress test)) | | | | [facility] | [place] [address] | | | | | and Healing, | [phone] | | | | | [address] | | | | | | [place], [place] | | | | | | [address] | | | | | | [phone] | | | +--------+ + + + [...] Stress test Dx: R07.9, R60.0, Z01.810 CPT: 47790, 07567 Ordering Provider: Sarah Barba DOS: 02/14/2018 Location name: [facility] (Tax ID: [id number], ) Location address: [address] [place] [address] Location phone/fax: [phone] ph, fax Insurance Name: [facility] [place] ID Number: [id number] TEL: [phone] Notes: 02/12- [place] Approved, auth# [id number] vaild from 02/12/18- 05/13/18. Echo approved, auth# [id number], vaild from 02/12/18- 05/13/18. Faxed copies of both auths to [place] 02/08- S/w Audrey at [facility] who says NM test scheduled for 02/14 and Echo not s cheduled yet. She request chart notes, EKG info, and med list. (info faxed to Audrey) - Auth request for Echo and NM Stress test faxed to [facility]. Will follow up Mon documented in this encounter Plan of Treatment +--------+ + + + + | Date | Type | Specialty | Care Team | Description | +--------+ + + + + | 11/13/ | Office | Gastroenterology | Cassidy Schneider, | | | 2019 | Visit | | [address] | | | | | | [facility] [place] | | | | | | [address] | | | | | | [phone] | | | | | | | | +--------+ + + + + | 11/17/ | Video/TeleH | Pain Management | Florencio Lockett, | | | 2019 | ealth-Sched | | PhD [address] | | | | uled | | [facility] [place] | | | | | | [address] | | | | | | [phone] | | | | | | | | +--------+ + + + + | 12/01/ | Video/TeleH | Pain Management | Florecnio Lockett, | | | 2019 | ealth-Sched | | PhD [address] | | | | uled | | [place], [place] | | | | | | [address] | | | | | | [phone] | | | | | | | | +--------+ + + + + | 01/06/ | Office | Plastic Surgery | Kuldip Harrell MD | | | 2019 | Visit | | [address] | | | | | | [place], [place] | | | | | | [address] | | | | | | [phone] | | | | | | | | +--------+ + + + + documented as of this encounter Visit Diagnoses Not on filedocumented in this encounter"
--- OUTSIDE RECORDS SUMMARY | ~2019-11-06 | XMS | Encounter Summary ---
Demographics + + + | Address | [address] | | | [place] [address] | + + + | Home Phone | | + + + | Preferred Language | Unknown | + + + | Marital Status | | + + + | Taoist Affiliation | Unknown | + + + | Race | Unknown | + + + | Ethnic Group | Unknown | + + + Author + + + | Author | [facility] | | | and [place] | + + + | Organization | [facility] | | | and [...] [place], | | | | | [place] [address] | | + + + + + Care Team Providers + +------+ + | Care Altitude Chamber Technician Name | Role | Phone | [...] | | | | | Procedures | [place], [place] | [address] | | | | | [place] | [address] | [place] | | | | | ACTIVTD ECG | Phone: | [address] | | | | | DWNLD W/R&I | [phone] | Phone: | | | | | </30 DAYS | Fax: | [phone] | | | | | VA EXT | [phone] | Fax: | | | | | ECG,PT | | [phone] | | | | | DEMAND | | | | | | | EVENT, SYMPT | | | | | | | MEMORY | | | | | | | LOOP, RECORD | | | | | | | [place] XTRNL | | | | | | [...] + + | 07/07/ | Clinical | [facility] | Katheryn Hammonds DO | Cardiac arrhythmia, | | 2019 | Support | CARDIOLOGY [facility] | [address] | unspecified cardiac | | | | [address] | [address] [address] [place], [place] | arrhythmia type | | | | [address] [place] [address] | [address] | | | | | [place] | | | | | | [address] | | | | | | [phone] | | | +--------+ + + + [...] | 2019 | Visit | | [address] [place] [address] | | | | | | [place] | | | | | | [address] | | | | | | [phone] | | | | | | | | +--------+---------+ + + + | 11/25/ | Office | Cardiology | Katheryn Hammonds DO | | 2019 | Visit | | [address] | | | | | | [place] | | | | | | [address] | | | | | | | | +--------+---------+ + + + documented as of this encounter Visit Diagnoses + + | Diagnosis | + + | Cardiac arrhythmia, unspecified cardiac arrhythmia type | + + documented in this encounter"
--- OUTSIDE RECORDS SUMMARY | ~2019-11-06 | XMS | Encounter Summary ---
Demographics + + + | Address | [address] | | | [place] [address] | + + + | Home Phone [...] Team Providers + +------+ + | Care Storekeeper Helper Name | Role | Phone | [...] [address] | | | | | | [place], [place] | | | | | | [address] | | | | | | [phone] | | | | | | | | +--------+ + + + + | 11/17/ | Video/TeleH | Pain Management | Florencio Lockett, | | | 2019 | ealth-Sched | | PhD [address] | | | | uled | | [place], [place] | | | | | | [address] | | | | | | [phone] | | | | | | | | +--------+ + + + + | 12/01/ | Video/TeleH | Pain Management | Florencio Lockett, | | | 2019 | ealth-Sched | | PhD [address] | | | | uled | | [place], [place] | | | | | | [address] | | | | | | [phone] | | | | | | | | +--------+ + + + + | 01/06/ | Office | Plastic Surgery | Kuldip Harrell MD | | 2019 | Visit | | [address] | | | | | | [place], [place] | | | | | | [address] | | | | | | [phone] | | | | | | | | +--------+ + + + + documented as of this encounter Visit Diagnoses Not on filedocumented in this encounter"
--- OUTSIDE RECORDS SUMMARY | ~2019-11-06 | XMS | Encounter Summary ---
Demographics + + + | Address | [address] | | | [place] [address] | + + + | Home Phone [...] Team Providers + +------+ + | Care Counter Top Maker Name | Role | Phone | + +------+ + | Alisha Stovall PA-C | PCP | | + +------+ + Encounter Details +--------+ + + + + | Date | Type | Department | Care Team | Description | +--------+ + + + + | 08/26/ | MyChart | Digestive Health | Kenan Norton, | RE: appointment 08/29 | | 2020 | Encounter | Center at [facility] [address] | MD [address] | | | | | [address] | [facility] [place] | | | | | for Health and | [address] | | | | | Healing, [address] | [phone] | | | | | [place], [place] | | | | | | [address] | | | | | | [phone] | | | +--------+ + + + [...] [address] | | | | | | [place], [place] | | | | | | [address] | | | | | | [phone] | | | | | | | | +--------+ + + + + | 11/17/ | Video/TeleH | Pain Management | Florencio Lockett, | | | 2019 | ealth-Sched | | PhD [address] | | | | uled | | [place], [place] | | | | | | [address] | | | | | | [phone] | | | | | | | | +--------+ + + + + | 12/01/ | Video/TeleH | Pain Management | Florencio Lockett, | | | 2019 | ealth-Sched | | PhD [address] | | | | uled | | [place], [place] | | | | | | [address] | | | | | | [phone] | | | | | | | | +--------+ + + + + | 01/06/ | Office | Plastic Surgery | Kuldip Harrell MD | | | 2019 | Visit | | [address] | | | | | | [place], [place] | | | | | | [address] | | | | | | [phone] | | | | | | | | +--------+ + + + + documented as of this encounter Visit Diagnoses Not on filedocumented in this encounter"
--- OUTSIDE RECORDS SUMMARY | ~2019-11-06 | XMS | Encounter Summary ---
Demographics + + + | Address | [address] | | | [place] [address] | + + + | Home Phone [...] Team Providers + +------+ + | Care Patient Centered Care Specialist Name | Role | Phone | [...] Outside Records | | 2019 | | [place] [facility] [address] | [address] | Received | | | | [address] [place] | [facility] [place] | | | | | for Health and | [address] | | | | | [facility] | [phone] | | | | | [place], [place] | | | | | | [address] | | | | | | | [...] [address] | | | | | | [place], [place] | | | | | | [address] | | | | | | [phone] | | | | | | | | +--------+ + + + + | 11/17/ | Video/TeleH | Pain Management | Florencio Lockett, | | | 2019 | ealth-Sched | | PhD [address] | | | | uled | | [place], [place] | | | | | | [address] | | | | | | [phone] | | | | | | | | +--------+ + + + + | 12/01/ | Video/TeleH | Pain Management | Florencio Lockett, | | | 2019 | ealth-Sched | | PhD [address] | | | | uled | | [place], [place] | | | | | | [address] | | | | | | [phone] | | | | | | | | +--------+ + + + + | 01/06/ | Office | Plastic Surgery | Kuldip Harrell MD | | | 2019 | Visit | | [address] | | | | | | [place], [place] | | | | | | [address] | | | | | | [phone] | | | | | | | | +--------+ + + + + documented as of this encounter Visit Diagnoses Not on filedocumented in this encounter"
--- OUTSIDE RECORDS SUMMARY | ~2019-11-06 | XMS | Encounter Summary ---
Demographics + + + | Address | [address] | | | [place] [address] | + + + | Home Phone [...] Providers + +------+ + | Care Cloth Bleaching Range Tender Name | Role | Phone | + +------+ + | Alisha Stovall PA-C | PCP | | + +------+ + Encounter Details +--------+ + + + + | Date | Type | Department | Care Team | Description | +--------+ + + + + | 03/07/ | Abstract | Digestive Health | Clinic, Surgery | | | 2017 | | [address] [address] [address] | | | | | | [address] [facility] | | | | | | for Health and | | | | | | Healing, [address] | | | | | | [place], [place] | | | | | | [address] | | | | | | [phone] | | | +--------+ + + + [...] Ave | | | | | | [place], [place] | | | | | | [address] | | | | | | [phone] | | | | | | | | +--------+ + + + + | 11/17/ | Video/TeleH | Pain Management | Florencio Lockett, | | | 2019 | ealth-Sched | | PhD [address] | | | | uled | | [place], [place] | | | | | | [address] | | | | | | [phone] | | | | | | | | +--------+ + + + + | 12/01/ | Video/TeleH | Pain Management | Florencio Lockett, | | | 2019 | ealth-Sched | | PhD [address] | | | | uled | | [place], [place] | | | | | | [address] | | | | | | [phone] | | | | | | | | +--------+ + + + + | 01/06/ | Office | Plastic Surgery | Kuldip Harrell MD | | | 2020 | Visit | | [address] | | | | | | [place], [place] | | | | | | [address] | | | | | | [phone] | | | | | | | | +--------+ + + + + documented as of this encounter Visit Diagnoses Not on filedocumented in this encounter"
--- OUTSIDE RECORDS SUMMARY | ~2019-11-06 | XMS | Encounter Summary ---
Demographics + + + | Address | [address] | | | [place] [address] | + + + | Home Phone [...] Team Providers + +------+ + | Care Delivery Truck Driver Heavy Name | Role | Phone | + [...] | 2018 | Visit | Center at [facility] [address] | | (Primary Dx) | | | | [address] | | | | | | for Health and | | | | | | Healing, [address] | | | | | | [place], [place] | | | | | | [address] | | | | | | [phone] | | | +--------+---------+ + + + [...] of Class: 2:00/3:00 until 3:00/4:00 (60 minutes buze-zo-iasa with patient) OBJECTIVE: Height: Ht Readings from [...] information. Yes Lisa Medina RD, CNSC, LD [facility] Bariatrics [phone] documented in this enco unter Plan of Treatment +--------+ + + + + | Date | Type | Specialty | Care Team | Description | +--------+ + + + + | 11/13/ | Office | Gastroenterology | Cassidy Schneider, | | | 2019 | Visit | | [address] | | | | | | [place], [place] | | | | | | [address] | | | | | | [phone] | | | | | | | | +--------+ + + + + | 11/17/ | Video/TeleH | Pain Management | Florencio Lockett, | | | 2019 | ealth-Sched | | PhD [address] | | | | uled | | [place], [place] | | | | | | [address] | | | | | | [phone] | | | | | | | | +--------+ + + + + | 12/01/ | Video/TeleH | Pain Management | Florencio Lockett G, | | | 2019 | ealth-Sched | | PhD [address] | | | | uled | | [place], [place] | | | | | | [address] | | | | | | [phone] | | | | | | | | +--------+ + + + + | 01/06/ | Office | Plastic Surgery | Kuldip Harrell MD | | | 2019 | Visit | | [address] | | | | | | [place], [place] | | | | | | [address] | | | | | | [phone] | | | | | | | | +--------+ + + + + documented as of this encounter Visit Diagnoses + + | Diagnosis | + + | Morbid obesity (HCC) - Primary Morbid obesity | + + documented in this encounter"
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
--- OUTSIDE RECORDS SUMMARY | ~2019-11-06 | XMS | Encounter Summary ---
Demographics + + + | Address | [address] | | | [place] [address] | + + + | Home Phone [...] Team Providers + +------+ + | Care Dialysis Registered Nurse Name | Role | Phone | [...] | 2017 | Encounter | Center at [facility] [address] | [address] | RE: RE: results | | | | [address] [place] | Monse Hernandez [place], | | | | | for Health and | [place] [address] | | | | | Healing, Building [address] | [phone] | | | | | [place], [place] | | | | | | [address] | | | | | | [phone] | | | +--------+ + + + [...] [address] | | | | | | [place], [place] | | | | | | [address] | | | | | | [phone] | | | | | | | | +--------+ + + + + | 11/17/ | Video/TeleH | Pain Management | Florencio Lockett, | | | 2019 | ealth-Sched | | PhD [address] | | | | uled | | [place], [place] | | | | | | [address] | | | | | | [phone] | | | | | | | | +--------+ + + + + | 12/01/ | Video/TeleH | Pain Management | Florencio Lockett G, | | | 2019 | ealth-Sched | | PhD [address] | | | | uled | | [place], [place] | | | | | | [address] | | | | | | [phone] | | | | | | | | +--------+ + + + + | 01/06/ | Office | Plastic Surgery | Kuldip Harrell MD | | 2019 | Visit | | [address] | | | | | | [place], [place] | | | | | | [address] | | | | | | [phone] | | | | | | | | +--------+ + + + + documented as of this encounter Visit Diagnoses Not on filedocumented in this encounter"
--- OUTSIDE RECORDS SUMMARY | ~2019-11-06 | XMS | Encounter Summary ---
Demographics + + + | Address | [address] | | | [place] [address] | [...] Providers + +------+ + | Care Senior Care Provider Name | Role | Phone | + +------+ + | Alisha Stovall PA-C | PCP | | + +------+ + Encounter Details +--------+ + + + + | Date | Type | Department | Care Team | Description | +--------+ + + + + | 06/30/ | Abstract | Digestive Health | Kenan Norton, | | | 2019 | | Center at [facility] [address] | MD [address] | | | | | [address] [place] | [facility] [place] | | | | | for Health and | [address] | | | | | [place], [address] | [phone] | | | | | [place], [place] | | | | | | [address] | | | | | | [phone] | | | +--------+ + + + [...] [address] | | | | | | [place], [place] | | | | | | [address] | | | | | | [phone] | | | | | | | | +--------+ + + + + | 11/17/ | Video/TeleH | Pain Management | Florencio Lockett, | | | 2019 | ealth-Sched | | PhD [address] | | | | uled | | [place], [place] | | | | | | [address] | | | | | | [phone] | | | | | | | | +--------+ + + + + | 12/01/ | Video/TeleH | Pain Management | Florencio Lockett, | | | 2019 | ealth-Sched | | PhD [address] | | | | uled | | [place], [place] | | | | | | [address] | | | | | | [phone] | | | | | | | | +--------+ + + + + | 01/06/ | Office | Plastic Surgery | Kuldip Harrell MD | | | 2019 | Visit | | [address] | | | | | | [place], [place] | | | | | | [address] | | | | | | [phone] | | | | | | | | +--------+ + + + + documented as of this encounter Visit Diagnoses Not on filedocumented in this encounter"
--- OUTSIDE RECORDS SUMMARY | ~2019-11-06 | XMS | Encounter Summary ---
Demographics + + + | Address | [address] | | | [place] [address] | + + + | Home Phone [...] + + + | Author | [facility] | + + + | Organization | [facility] | + + + | Address | Unknown | + + + | Phone | Unavailable | + + + Support + + +---------+ + | Name | Relationship | Address | Phone | + + +---------+ + | Jeovanny Hernández | ECON | Unknown | | + + +---------+ + Care Team Providers + +------+ + | Care Extermination Supervisor Name | Role | Phone | [...] | 2018 | Encounter | Center at [facility] [address] | [address] | | | | | [address] [facility] | Monse Hernandez [place], | | | | | for Health and | [place] [address] | | | | | [facility], [address] | [phone] | | | | | [place], [place] | | | | | | [address] | | | | | | [phone] | | | +--------+ + + + [...] [address] | | | | | | [place], [place] | | | | | | [address] | | | | | | [phone] | | | | | | | | +--------+ + + + + | 11/17/ | Video/TeleH | Pain Management | Florencio Lockett, | | | 2019 | ealth-Sched | | PhD [address] | | | | uled | | [place], [place] | | | | | | [address] | | | | | | [phone] | | | | | | | | +--------+ + + + + | 12/01/ | Video/TeleH | Pain Management | Florencio Lockett G, | | | 2019 | ealth-Sched | | PhD [address] | | | | uled | | [place], [place] | | | | | | [address] | | | | | | [phone] | | | | | | | | +--------+ + + + + | 01/06/ | Office | Plastic Surgery | Kuldip Harrell MD | | | 2019 | Visit | | [address] | | | | | | [place], [place] | | | | | | [address] | | | | | | [phone] | | | | | | | | +--------+ + + + + documented as of this encounter Visit Diagnoses Not on filedocumented in this encounter"
--- OUTSIDE RECORDS SUMMARY | ~2019-11-06 | XMS | Encounter Summary ---
Demographics + + + | Address | [address] | | | [place] [address] | + + + | Home Phone [...] Team Providers + +------+ + | Care Solderer Assembly Repair Name | Role | Phone | + [...] | | 2020 | | Center at [facility] [address] | MD [address] | IVF infusions) | | | | [address] | [place], [place] | | | | | for Health and | [address] | | | | | Healing, [facility] 2 | [phone] | | | | | [place], [place] | | | | | | [address] | | | | | | [phone] | | | +--------+ + + + [...] [address] | | | | | | [place], [place] | | | | | | [address] | | | | | | [phone] | | | | | | | | +--------+ + + + + | 11/17/ | Video/TeleH | Pain Management | Florencio Lockett, | | | 2019 | ealth-Sched | | PhD [address] | | | | uled | | [place], [place] | | | | | | [address] | | | | | | [phone] | | | | | | | | +--------+ + + + + | 12/01/ | Video/TeleH | Pain Management | Florencio Lockett, | | | 2019 | ealth-Sched | | PhD [address] | | | | uled | | [place], [place] | | | | | | [address] | | | | | | [phone] | | | | | | | | +--------+ + + + + | 01/06/ | Office | Plastic Surgery | Kuldip Harrell MD | | | 2019 | Visit | | [address] | | | | | | [place], [place] | | | | | | [address] | | | | | | [phone] | | | | | | | | +--------+ + + + + documented as of this encounter Visit Diagnoses Not on filedocumented in this encounter"
--- OUTSIDE RECORDS SUMMARY | ~2019-11-06 | XMS | Encounter Summary ---
Demographics + + + | Address | [address] | | | [place] [address] | + + + | Home Phone | | + + + | Preferred Language | Unknown | + + + | Marital Status | | + + + | Zoroastrian Affiliation | NRP | + + + | Race | White | + + + | Ethnic Group | Not or | + + + Author + + + | Author | [facility] | + + + | Organization | [facility] | + + + | Address | Unknown | + + + | Phone | Unavailable | + + + Support + + +---------+ + | Name | Relationship | Address | Phone | + + +---------+ + | Jeovanny Hernández | ECON | Unknown | | + + +---------+ + Care Team Providers + +------+ + | Care Supervisor Powdered Metal Name | Role | Phone | + [...] | | 2018 | | Preventive at [facility] | | Review (gen | | | | [address] | | checklist) | | | | Center for Health | | | | | | and Healing, | | | | | | [address] | | | | | | [place], [place] | | | | | | [address] | | | | | | [phone] | | | +--------+ + + + [...] Available Comments Referring Provider notes Jody Watson Reedsy - Polyvore N/A Referral Last EKG (REPORT ONLY) Note: Tracings needed if being seen for abnormal ECG 11-10-17 Reedsy - Polyvore N/A Last Echo images and report - - - - Last Stress Test images and report - - - - Last Cardiac Catheterization images and report - - - - Last Holter or Event monitor report only - - - N/A Labs (BMP, Lipids, TSH, Hemoglobin A1C in last 6 months) 11-10-17 Reedsy - Polyvore N/A Last Device Check (schedule device check [...] Ave | | | | | | [place], [place] | | | | | | [address] | | | | | | [phone] | | | | | | | | +--------+ + + + + | 11/17/ | Video/TeleH | Pain Management | Florencio Lockett, | | | 2019 | ealth-Sched | | PhD [address] | | | | uled | | [place], [place] | | | | | | [address] | | | | | | [phone] | | | | | | | | +--------+ + + + + | 12/01/ | Video/TeleH | Pain Management | Florencio Lockett, | | | 2019 | ealth-Sched | | PhD [address] | | | | uled | | [place], [place] | | | | | | [address] | | | | | | [phone] | | | | | | | | +--------+ + + + + | 01/06/ | Office | Plastic Surgery | Kuldip Harrell MD | | | 2020 | Visit | | [address] | | | | | | [place], [place] | | | | | | [address] | | | | | | [phone] | | | | | | | | +--------+ + + + + documented as of this encounter Visit Diagnoses Not on filedocumented in this encounter"
--- OUTSIDE RECORDS SUMMARY | ~2019-11-06 | XMS | Encounter Summary ---
Demographics + + + | Address | [address] | | | [place] [address] | + + + | Home Phone [...] Team Providers + +------+ + | Care Provisioning Analyst Name | Role | Phone | + +------+ + | Alisha Stovall PA-C | PCP | | + +------+ + Encounter Details +--------+ + + + + | Date | Type | Department | Care Team | Description | +--------+ + + + + | 06/02/ | Pharmacy | Outpatient Retail | | | | 2020 | Visit | [facility] | | | | | | [address] | | | | | | [address] [place], [place] | | | | | | [address] | | | | | | [phone] | | | +--------+ + + + [...] [address] | | | | | | [place], [place] | | | | | | [address] | | | | | | [phone] | | | | | | | | +--------+ + + + + | 11/17/ | Video/TeleH | Pain Management | Florencio Lockett, | | | 2019 | ealth-Sched | | PhD [address] | | | | uled | | [place], [place] | | | | | | [address] | | | | | | [phone] | | | | | | | | +--------+ + + + + | 12/01/ | Video/TeleH | Pain Management | Florencio Lockett G, | | | 2019 | ealth-Sched | | PhD [address] | | | | uled | | [facility] [place] | | | | | | [address] | | | | | | [phone] | | | | | | | | +--------+ + + + + | 01/06/ | Office | Plastic Surgery | Kuldip Harrell MD | | | 2019 | Visit | | [address] | | | | | | [place], [place] | | | | | | [address] | | | | | | [phone] | | | | | | | | +--------+ + + + + documented as of this encounter Visit Diagnoses Not on filedocumented in this encounter"
--- OUTSIDE RECORDS SUMMARY | ~2019-11-06 | XMS | Encounter Summary ---
Demographics + + + | Address | [address] | | | [place] [address] | + + + | Home Phone [...] Team Providers + +------+ + | Care Software Licensing Analyst Name | Role | Phone | [...] Description | +--------+--------+ + + + | 09/05/ | Refill | Digestive Health | Nellie Ybarra, | Refill Request | | 2019 | | Center at [facility] [address] | [facility] [address] | | | | | [address] [place] | [place], [place] | | | | | for [facility] and | [address] | | | | | [facility] 2 | [phone] | | | | | [place], [place] | | | | | | [address] | | | | | | | [...] [address] | | | | | | [place], [place] | | | | | | [address] | | | | | | [phone] | | | | | | | | +--------+ + + + + | 11/17/ | Video/TeleH | Pain Management | Florencio Lockett, | | | 2019 | ealth-Sched | | PhD [address] | | | | uled | | [place], [place] | | | | | | [address] | | | | | | [phone] | | | | | | | | +--------+ + + + + | 12/01/ | Video/TeleH | Pain Management | Florencio Lockett, | | | 2019 | ealth-Sched | | PhD [address] | | | | uled | | [place], [place] | | | | | | [address] | | | | | | [phone] | | | | | | | | +--------+ + + + + | 01/06/ | Office | Plastic Surgery | Kuldip Harrell MD | | | 2019 | Visit | | [address] | | | | | | [place], [place] | | | | | | [address] | | | | | | [phone] | | | | | | | | +--------+ + + + + documented as of this encounter Visit Diagnoses Not on filedocumented in this encounter"
--- OUTSIDE RECORDS SUMMARY | ~2019-11-06 | XMS | Encounter Summary ---
Demographics + + + | Address | [address] | | | [place] [address] | + + + | Home Phone | | + + + | Preferred Language | Unknown | + + + | Marital Status | | + + + | Mu-Ism Affiliation | NRP | + + + [...] Team Providers + +------+ + | Care Lime Kiln Operator Name | Role | Phone | [...] | | [address] | [facility] [place] | | | | | for Health and | [address] | | | | | Healing, [address] | [phone] | | | | | [place], [place] | | | | | | [address] | | | | | | [phone] | | | +--------+ + + + [...] [address] | | | | | | [place], [place] | | | | | | [address] | | | | | | [phone] | | | | | | | | +--------+ + + + + | 11/17/ | Video/TeleH | Pain Management | Florencio Lockett, | | | 2019 | ealth-Sched | | PhD [address] | | | | uled | | [place], [place] | | | | | | [address] | | | | | | [phone] | | | | | | | | +--------+ + + + + | 12/01/ | Video/TeleH | Pain Management | Florencio Lockett, | | | 2019 | ealth-Sched | | PhD [address] | | | | uled | | [place], [place] | | | | | | [address] | | | | | | [phone] | | | | | | | | +--------+ + + + + | 01/06/ | Office | Plastic Surgery | Kuldip Harrell MD | | | 2019 | Visit | | [address] | | | | | | [place], [place] | | | | | | [address] | | | | | | [phone] | | | | | | | | +--------+ + + + + documented as of this encounter Visit Diagnoses Not on filedocumented in this encounter"
--- OUTSIDE RECORDS SUMMARY | ~2019-11-06 | XMS | Encounter Summary ---
Demographics + + + | Address | [address] | | | [place] [address] | + + + | Home Phone [...] + + | Author | [facility] | + + + | Organization | [facility] | + + + | Address | Unknown | + + + | Phone | Unavailable | + + + Support + + +---------+ + | Name | Relationship | Address | Phone | + + +---------+ + | Jeovanny Hernández | ECON | Unknown | | + + +---------+ + Care Team Providers + +------+ + | Care On Line Csr Name | Role | Phone | + [...] | Center at [facility] | MD [address] | | | | | [address] | [facility] [place] | | | | | for Health and | [address] | | | | | Healing, [address] | [phone] | | | | | [place], [place] | | | | | | [address] | | | | | | [phone] | | | +--------+ + + + [...] [address] | | | | | | [place], [place] | | | | | | [address] | | | | | | [phone] | | | | | | | | +--------+ + + + + | 11/17/ | Video/TeleH | Pain Management | Florencio Lockett, | | | 2019 | ealth-Sched | | PhD [address] | | | | uled | | [place], [place] | | | | | | [address] | | | | | | [phone] | | | | | | | | +--------+ + + + + | 12/01/ | Video/TeleH | Pain Management | Florencio Lockett, | | | 2019 | ealth-Sched | | PhD [address] | | | | uled | | [place], [place] | | | | | | [address] | | | | | | [phone] | | | | | | | | +--------+ + + + + | 01/06/ | Office | Plastic Surgery | Kuldip Harrell MD | | | 2019 | Visit | | [address] | | | | | | [place], [place] | | | | | | [address] | | | | | | [phone] | | | | | | | | +--------+ + + + + documented as of this encounter Visit Diagnoses Not on filedocumented in this encounter"
--- OUTSIDE RECORDS SUMMARY | ~2019-11-06 | XMS | Encounter Summary ---
Demographics + + + | Address | [address] | | | [place] [address] | + + + | Home Phone [...] Team Providers + +------+ + | Care Production Hand Name | Role | Phone | [...] | | 2019 | | Center at [facility] | MD [address] | Refill Request; | | | | [address] | [place], [place] | Refill Request | | | | for Health and | [address] | | | | | [facility] 2 | [phone] | | | | | [place], [place] | | | | | | [address] | | | | | | [phone] | | | +--------+ + + + [...] [address] | | | | | | [place], [place] | | | | | | [address] | | | | | | [phone] | | | | | | | | +--------+ + + + + | 11/17/ | Video/TeleH | Pain Management | Florencio Lockett, | | | 2019 | ealth-Sched | | PhD [address] | | | | uled | | [place], [place] | | | | | | [address] | | | | | | [phone] | | | | | | | | +--------+ + + + + | 12/01/ | Video/TeleH | Pain Management | Florencio Lockett, | | | 2019 | ealth-Sched | | PhD [address] | | | | uled | | [place], [place] | | | | | | [address] | | | | | | [phone] | | | | | | | | +--------+ + + + + | 01/06/ | Office | Plastic Surgery | Kuldip Harrell MD | | 2019 | Visit | | [address] | | | | | | [place], [place] | | | | | | [address] | | | | | | [phone] | | | | | | | | +--------+ + + + + documented as of this encounter Visit Diagnoses + + | Diagnosis | + + | Morbid obesity (HCC) Morbid obesity | + + documented in this encounter"
--- OUTSIDE RECORDS SUMMARY | ~2019-11-06 | XMS | Encounter Summary ---
Demographics + + + | Address | [address] | | | [place] [address] | + + + | Home Phone [...] Team Providers + +------+ + | Care It Operations Specialist Name | Role | Phone | [...] Description | +--------+------+ + + + | 01/10/ | Lab | Laboratory at [facility] | | No Show | | 2019 | | [address] | | | | | | [facility] | | | | | | and Healing, | | | | | | [address] | | | | | | [place], [place] | | | | | | [address] | | | | | | [phone] | | | +--------+------+ + + + [...] [address] | | | | | | [place], [place] | | | | | | [address] | | | | | | [phone] | | | | | | | | +--------+ + + + + | 11/17/ | Video/TeleH | Pain Management | Florencio Lockett, | | | 2019 | ealth-Sched | | PhD [address] | | | | uled | | [place], [place] | | | | | | [address] | | | | | | [phone] | | | | | | | | +--------+ + + + + | 12/01/ | Video/TeleH | Pain Management | Florencio Lockett, | | | 2019 | ealth-Sched | | PhD [address] | | | | uled | | [place], [place] | | | | | | [address] | | | | | | [phone] | | | | | | | | +--------+ + + + + | 01/06/ | Office | Plastic Surgery | Kuldip Harrell MD | | | 2019 | Visit | | [address] | | | | | | [place], [place] | | | | | | [address] | | | | | | [phone] | | | | | | | | +--------+ + + + + documented as of this encounter Visit Diagnoses Not on filedocumented in this encounter"
--- OUTSIDE RECORDS SUMMARY | ~2019-11-06 | XMS | Encounter Summary ---
Demographics + + + | Address | [address] | | | [place] [address] | + + + | Home Phone [...] Team Providers + +------+ + | Care Health And Wellness Coach Name | Role | Phone | [...] Description | +--------+--------+ + + + | 09/16/ | Refill | Digestive Health | Kenan Norton, | Refill Request | | 2020 | | Center at [facility] [address] | MD [address] | (prochlorperazine) | | | | [address] | [place], [place] | | | | | for Health and | [address] | | | | | [facility] | | | | | | [place], [place] | | | | | | [address] | | | | | | | [...] | | 2019 | Visit | | [address] | | | | | | [facility] [place] | | | | | | [address] | | | | | | [phone] | | | | | | | | +--------+ + + + + | 11/17/ | Video/TeleH | Pain Management | Florencio Lockett, | | | 2019 | ealth-Sched | | PhD [address] | | | | uled | | [place], [place] | | | | | | [address] | | | | | | [phone] | | | | | | | | +--------+ + + + + | 12/01/ | Video/TeleH | Pain Management | Florencio Lockett, | | | 2019 | ealth-Sched | | PhD [address] | | | | uled | | [place], [place] | | | | | | [address] | | | | | | [phone] | | | | | | | | +--------+ + + + + | 01/06/ | Office | Plastic Surgery | Kuldip Harrell MD | | | 2019 | Visit | | [address] | | | | | | [place], [place] | | | | | | [address] | | | | | | [phone] | | | | | | | | +--------+ + + + + documented as of this encounter Visit Diagnoses Not on filedocumented in this encounter"
--- OUTSIDE RECORDS SUMMARY | ~2019-11-06 | XMS | Encounter Summary ---
Demographics + + + | Address | [address] | | | [place] [address] | + + + | Home Phone [...] Team Providers + +------+ + | Care Cork Cutter Name | Role | Phone | + +------+ + | Alisha Stovall PA-C | PCP | | + +------+ + Reason for Visit +---------+ + | Reason | Comments | +---------+ + | Post Op | | +---------+ + Encounter Details +--------+---------+ + + + | Date | Type | Department | Care Team | Description | +--------+---------+ + + + | 10/02/ | Office | Digestive Health | Mehreen Koenig, | History of Andreia-en-Y | | 2019 | Visit | [facility] at [facility] | ACNP [address] | gastric bypass | | | | [address] | [place], [place] | (Primary Dx); | | | | for Health and | [address] | History of | | | | [facility], [address] | | laparoscopic | | | | [facility] [place] | | cholecystectomy; | | | | [address] | | Vitamin D | | | | | | deficiency; Vitamin | | | | | | B 12 deficiency; | | | | | | Emotional lability; | | | | | | Rash at application | | | | | | site | +--------+---------+ + + + Social History [...] + + + | Blood Pressure | 148/86 | 10/02/2018 2:16 PM | | | | | PDT | | + + + + + | Pulse | 78 | 10/02/2018 2:16 PM | | | | | PDT | | + + + + + | Temperature | 36.7 C (98 F) | 10/02/2018 2:16 PM | | | | | PDT | | + + + + + | Respiratory Rate | 16 | 10/02/2018 2:16 PM | | | | | PDT | | + + + + + | Oxygen Saturation | 98% | 10/02/2018 2:16 PM | | | | | PDT | | + + + + + | Inhaled Oxygen | - | - | | | Concentration | | | | + + + + + | Weight | 165.1 kg (364 lb) | 10/02/2018 2:16 PM | | | | | PDT | | + + + + + | Height | 180.3 cm (") | 10/02/2018 2:16 PM | | | | | PDT | | + + + + + | Body Mass Index | 50.77 | 10/02/2018 2:16 PM | | | [...] of this encounter Patient Instructions Patient Instructions Mehreen Koenig, [facility] - 10/02/2018 2:20 PM PDTHair Loss Massage your scalp as you wash your hair. The more you exercise especially to the point of sweating, improves circulation To your scalp and improves hair growth. Protein: 80-100 grams per day for women Close to 100 grams per day for men Biotin: 5 mg/day ( 5000 mcg) Stop 3-4 days before having Vit D drawn, or any thyroid labs, as it will effect the results Flaxseed Oil: 15ml per day (1 Tbs) Linseed oil or olive oil may be considered ( which is likely what you are cooking with) Iron tablets: 65mg elemental iron per day or 325 mg per day for ferrous fumarate or glucona te. (2 hours separate from any calcium, dairy or acid reducers) this is the routine Amount in your multi vit. Regular daily supplements should be continued: Chewable multivitamin with iron, twice the adult dose daily (2 hours separate from any uri cium, dairy or acid reducers) Calcium citrate 4305-9461 mg per day with vitamin D 1000 IU per day (2 hrs separate from i sarabjit) Vitamin B12 500 mcg per day sub-lingual or once per month shot 1000mcg dose Please return to see Dr. Norton as scheduled in October. You are on abdominal muscle rest until then. Walking is ok documented in this encounter Progress Notes Mehreen Koenig ACNP - 10/02/2018 2:20 PM PDTFormatting of this note might be different f rom the original. BARIATRIC FOLLOW-UP Maria De Jesus Anna is a 27 y.o. patient who underwent a Andreia en y gastric bypass and latricia 09.24.2018. This is her first post op visit. She had a routine 2 day hospital stay post op. She is here with her and 2 grade school children. She met with the workforce specialist prior to this appointment. ON 09.27.2018 She was contacted for a routine telephone check in call, at that time she was n ot meeting protein nor water targets, and per notes suggested to increase her protein shakes . Today she states she was told she could advance her diet to "eggs". She contacted our office on 10.02.2018 stating she had eaten some eggs, and now they had liliana ck, she was trying to vomit them up. Per the note she was instructed to return to the usual diet and not advance her diet to this point. In my appointment with her, she states she was told to take a GI cocktail (her had one) and that allowed her to vomit the remainder of the eggs. Today she is tearful, describes emotional highs and lows. She continues to utilize 6 or mor e oxycodone a day for comfort, has not been using the liquid tylenol as she didn't pick that up. She has not had any further episodes of vomiting. She is taking zofran with the oxycodone a s it makes her nausous. She is also having marked itching over the wounds, and has been venessa vega, but states it isn't working Last office visit reviewed. Op-report reviewed. Labs reviewed. Weight 400 To 370 at time of surgery --> 364 (total 6 lb weight loss) Blood pressure 148/86, pulse 78, temperature 36.7 C (98 F), temperature source Oral, re sp. rate 16, height 1.803 m (5' 11"), weight 165.1 kg (364 lb), SpO2 98 %. Body mass index is 50.77 kg/m. ALLERGIES: Allergies Allergen Reactions Ibuprofen Hives Benzonatate Rash Cigarette Smoke Airway Constriction Depakote [Divalproex Sodium] Suicidal Ideation Doxycycline Rash Percocet [Oxycodone-Acetaminophen] Nausea and Vomiting [place] Oil Hives and Nausea and Vomiting Seroquel [Quetiapine Fumarate] Suicidal Ideation Current Outpatient Medications: acetaminophen 325 mg oral tablet, Take 2 tablets by mouth e very six hours as needed for pain. Cut tablet into small pieces. Do not crush., Disp: 100 ta blet, Rfl: 0 ascorbic acid (vitamin C) (VITAMIN C) 500 mg oral tablet, Take 1 tablet by mouth three time s daily., Disp: 270 tablet, Rfl: 0 beclomethasone (QVAR) 40 mcg/actuation inhalation aerosol, Inhale 1 puff two times daily. Indications: Controller Medication for Asthma, Disp: , Rfl: cholecalciferol (Vitamin D3) (VITAMIN D3) 2,000 unit oral capsule, Take 1 capsule by mouth once daily. (Patient taking differently: Take 2,000 Units by mouth once daily in the morning . ), Disp: 90 capsule, Rfl: 3 ergocalciferol 50,000 unit oral capsule, Take 1 capsule by mouth every seven days. For 12 w eeks Indications: Vitamin D Deficiency (High Dose Therapy) (Patient taking differently: Take 50,000 Units by mouth every Monday. For 12 weeks Indications: Vitamin D Deficiency (High Do se Therapy)), Disp: 12 capsule, Rfl: 0 evening primrose oil (EVENING PRIMROSE ORAL), Take by mouth once daily at bedtime., Disp: , Rfl: ferrous sulfate 325 mg (65 mg iron) oral tablet, Take 325 mg by mouth once daily., Disp: , Rfl: glycerin (ADULT) rectal suppository, Unwrap and insert 1 suppository rectally once daily as needed for constipation., Disp: 25 suppository, Rfl: 2 metFORMIN 500 mg oral tablet, Take 1,000 mg by mouth two times daily. , Disp: , Rfl: norgestimate-ethinyl estradiol (TRI-PREVIFEM (28) ORAL), Take 1 tablet by mouth once daily at bedtime. , Disp: , Rfl: ondansetron ODT 4 mg oral tablet,disintegrating, Dissolve 1 tablet on tongue every six hour s as needed for nausea/vomiting., Disp: 30 tablet, Rfl: 1 oxyCODONE (immediate release) 5 mg oral tablet, Take 1-3 tablets by mouth every four hours as needed for moderate pain or severe pain., Disp: 40 tablet, Rfl: 0 pantoprazole 20 mg oral tablet,delayed release (DR/EC), Take 1 tablet by mouth two times da korey. Indications: gastroesophageal reflux disease, Disp: 60 tablet, Rfl: 2 polyethylene glycol 17 gram/dose oral powder, Dissolve 17g (1 capful) in at least 4 ounces of fluid and drink once daily as needed for constipation., Disp: 255 g, Rfl: 0 propranolol 40 mg oral tablet, Take 40 mg by mouth two times daily. , Disp: , Rfl: ranitidine 150 mg oral tablet, Take 150 mg by mouth twice daily as needed. Indications: gas troesophageal reflux disease, Disp: , Rfl: riboflavin (vitamin B2) (VITAMIN B-2) 100 mg oral tablet, Take 100 mg by mouth once daily i n the morning. , Disp: , Rfl: simethicone chew 80 mg oral tablet,chewable, Chew and swallow 1 tablet four times daily as needed for gas/bloating., Disp: 30 tablet, Rfl: 0 topiramate 50 mg oral tablet, 50 mg two times daily. Indications: Migraine Prevention, Dis p: , Rfl: History: Past Medical History: Diagnosis Date Asthma Fatty liver per CT scan GERD (gastroesophageal reflux disease) HTN (hypertension) 2017 LVH (left ventricular hypertrophy) The left ventricle is normal in size, wall thickness and systolic function EF 55-60%. ECHO Shortness of breath Sleep apnea Type 2 diabetes mellitus (HCC) Past Surgical History Procedure Laterality Date Acl repair Left Upper gi endoscopy Manipulation of knee joint under general anesthesia Left Laparoscopic andreia-en-y gastric bypass with cholecystectomy 09/24/2018 [facility] [address]. Norton Social History Socioeconomic History Marital status: Spouse [...] Used Substance and Sexual Activity Alcohol use: No Drug use: No Sexual activity: Not on file Lifestyle Physical activity: Days per week: Not on file Minutes per session: Not on file Stress: Not on file Relationships Social connections: Talks on phone: Not on file Gets together: Not on file Attends spiritism service: Not on file Active member of [...] Concern Not on file Social History Narrative Bariatric Medications: She has not started supplements as of yet. MVI with iron twice daily: Calcium citrate 1500mg daily: B12 500mcg SL daily or monthly shot: H2RB/PPI daily: Yes Narcotics: Yes up to 60 mg. A day. Symptoms: Nausea denies Dysphagia: no further episodes Vomiting: no further episodes Heartburn: Denies Abd Pain: Several times a day Constipation: denies Diarrhea: denies Exam General- Alert and oriented x4, WD, WN, NAD, Obese, well appearing Well hydrated: moist mucous membranes Card/Circ: no LE edema Abd - Soft, NT, NR, NG Wounds - healing, red around each of the sites, 1-2 mm. No signs of infection. Assessment/Plan: 1. S/P Andreia en y gastric bypass and latricia, appears well, but emotionally is very fragile. She feels that food has been "taken" away from her. She goes into the kitchen and looks at all the things she "can't " have. She is angry at her family, that they can eat whatever the y want. Plan: she has a counselor she sees routinely, scheduled for early next week. I have encoura ged Her to talk to her counselor 2. Emotions: not uncommon to have wide emotional fluctuations during the first week to 2 we eks. Plan: reassured her. 3. Dysphagia: diet advanced too quickly and likely too much egg at one time. Discussed the swelling present in her pouch. And to try new foods very slowly starting with only one bite Or two. She met previously with the workforce specialist. 4. Itching: I added vistaril, which will also help with her anxiety. The erythema is most likely due to the wound closure glue. It does not extend in a wide pattern, there are no oth er associated blebs, fluid filled Lesions. Vistaril 25 mg number 20 . I would not recommend a refill 5. Oxycodone: 5 mg. Refill for Number 60. I would not recommend a refill 6. Activity: encouraged her to continue to walk, to meet activity goals. 6. Overall assessment: she is having difficulty following the standard recommendations, And at this early point, is grieving the loss of food. Her was present to hear the instructions/issues. And also feels she will do better as time goes on. Plan: I will forward to her PCP. Encouraged Maria De Jesus to contact us as well if she continues to struggle. Please return to see us: Is patient taking meds according to discharge instructions no Does the patient feel medication instructions were clear at discharge yes Given a binder during hospital stay? Yes Appointment started at: 1423 Appointment ended at: 1500 Total time in appointment: extended visit: 22 minutes Mehreen Koenig DNP, ACNP, BIOMASS PLANT TECHNICIAN Woodworker Helper Bariatric Surgery [facility] documented in this encounter Plan of Treatment +--------+ + + + + | Date | Type | Specialty | Care Team | Description | +--------+ + + + + | 11/13/ | Office | Gastroenterology | Cassidy Schneider, | | | 2019 | Visit | | [address] | | | | | | [place], [place] | | | | | | [address] | | | | | | [phone] | | | | | | | | +--------+ + + + + | 11/17/ | Video/TeleH | Pain Management | Florencio Lockett, | | | 2019 | ealth-Sched | | PhD [address] | | | | uled | | [place], [place] | | | | | | [address] | | | | | | [phone] | | | | | | | | +--------+ + + + + | 12/01/ | Video/TeleH | Pain Management | Florencio Lockett, | | | 2019 | ealth-Sched | | PhD [address] | | | | uled | | [place], [place] | | | | | | [address] | | | | | | [phone] | | | | | | | | +--------+ + + + + | 01/06/ | Office | Plastic Surgery | Kuldip Harrell MD | | | 2019 | Visit | | [address] | | | | | | [place], [place] | | | | | | [address] | | | | | | [phone] | | | | | | | | +--------+ + + + + documented as of this encounter Visit Diagnoses + + | Diagnosis | + + | History of Andreia-en-Y gastric bypass - Primary Bariatric surgery status | + + | History of laparoscopic cholecystectomy | + + | Vitamin D deficiency | + + | Vitamin B 12 deficiency Other B-complex deficiencies | + + | Emotional lability | + + | Rash at application site | + + documented in this encounter
--- OUTSIDE RECORDS SUMMARY | ~2019-11-06 | XMS | Encounter Summary ---
Demographics + + + | Address | [address] | | | [place] [address] | + + + | Home Phone [...] Team Providers + +------+ + | Care Glove Parts Inspector Name | Role | Phone | [...] | | [address] | [place], [place] | | | | | for Health and | [address] | | | | | Healing, [address] | [phone] | | | | | [place], [place] | | | | | | [address] | | | | | | | [...] [address] | | | | | | [place], [place] | | | | | | [address] | | | | | | [phone] | | | | | | | | +--------+ + + + + | 11/17/ | Video/TeleH | Pain Management | Florencio Lockett, | | | 2019 | ealth-Sched | | PhD [address] | | | | uled | | [place], [place] | | | | | | [address] | | | | | | [phone] | | | | | | | | +--------+ + + + + | 12/01/ | Video/TeleH | Pain Management | Florencio Lockett, | | | 2019 | ealth-Sched | | PhD [address] | | | | uled | | [place], [place] | | | | | | [address] | | | | | | [phone] | | | | | | | | +--------+ + + + + | 01/06/ | Office | Plastic Surgery | Kuldip Harrell MD | | | 2019 | Visit | | [address] | | | | | | [place], [place] | | | | | | [address] | | | | | | [phone] | | | | | | | | +--------+ + + + + documented as of this encounter Visit Diagnoses Not on filedocumented in this encounter"
--- OUTSIDE RECORDS SUMMARY | ~2019-11-06 | XMS | Encounter Summary ---
Demographics + + + | Address | [address] | | | [place] [address] | + + + | Home Phone [...] Team Providers + +------+ + | Care Business English Instructor Name | Role | Phone | [...] | 2020 | Encounter | Center at [facility] [address] | | | | | | [facility] | | | | | | for Health and | | | | | | Healing, [address] | | | | | | [place], [place] | | | | | | [address] | | | | | | [phone] | | | +--------+ + + + [...] [address] | | | | | | [place], [place] | | | | | | [address] | | | | | | [phone] | | | | | | | | +--------+ + + + + | 11/17/ | Video/TeleH | Pain Management | Florencio Lockett, | | | 2019 | ealth-Sched | | PhD [address] | | | | uled | | [place], [place] | | | | | | [address] | | | | | | [phone] | | | | | | | | +--------+ + + + + | 12/01/ | Video/TeleH | Pain Management | Florencio Lockett, | | | 2019 | ealth-Sched | | PhD [address] | | | | uled | | [place], [place] | | | | | | [address] | | | | | | [phone] | | | | | | | | +--------+ + + + + | 01/06/ | Office | Plastic Surgery | Kuldip Harrell MD | | | 2019 | Visit | | [address] | | | | | | [place], [place] | | | | | | [address] | | | | | | [phone] | | | | | | | | +--------+ + + + + documented as of this encounter Visit Diagnoses Not on filedocumented in this encounter"
--- OUTSIDE RECORDS SUMMARY | ~2019-11-06 | XMS | Encounter Summary ---
Demographics + + + | Address | [address] | | | [place] [address] | + + + | Home Phone | | + + + | Preferred Language | Unknown | + + + | Marital Status | | + + + | Yarsanism Affiliation | Unknown | + + + | Race | Unknown | + + + | Ethnic Group | Unknown | + + + Author + + + | Author | [facility] | | | and [place] | + + + | Organization | [facility] | | [...] [place], | | | | | [place] [address] | | + + + + + Care Team Providers + +------+ + | Care Ball Winder Name | Role | Phone | + +------+ + | Alisha Stovall | PCP | | | PA-C | | | + +------+ + Reason for Visit + +--------+ + | Reason | Onset | Comments | | | Date | | + +--------+ + | Advice Only | 07/23/ | Rodriguez monitor study | | | 2019 | | + +--------+ + Encounter Details +--------+ + + + + | Date | Type | Department | Care Team | Description | +--------+ + + + + | 07/23/ | Telephone | [facility] | Katheryn Hammonds DO | Advice Only | | 2019 | | [facility]ARDIOLOGY [place] | [address] | ([employer] monitor | | | | [address] | [place], [place] | study) | | | | [place], [place] | [id number] | | | | | [address] | | | | | | [phone] | | | +--------+ + + + [...] this encounter Miscellaneous Notes Telephone Encounter - Nanette Carroll, Working Supervisor - 07/24/2019 1:17 PM PDTReceived phone call from Gill @ [employer] to advise patient ended study early stating "the doctor to ld me to wear it for two weeks". Patient completed 13 days of a 30 day study. Per Gill, end of study report will be available shortly. documented in this encounter Plan of Treatment +--------+---------+ + + + | Date | Type | Specialty | Care Team | Description | +--------+---------+ + + + | 11/18/ | Office | Neurology | Shirley Murdock NP | | 2019 | Visit | | [address] [place] | | | | | | [place] | | | | | | [address] | | | | | | [phone] | | | | | | | | +--------+---------+ + + + | 11/25/ | Office | Cardiology | Katheryn Hammonds DO | | 2019 | Visit | | [address] | | | | | | [place] | | | | | | [id number] | | | | | | | | +--------+---------+ + + + documented as of this encounter Visit Diagnoses Not on filedocumented in this encounter
--- OUTSIDE RECORDS SUMMARY | ~2019-11-06 | XMS | Encounter Summary ---
Demographics + + + | Address | [address] | | | [place] [address] | + + + | Home Phone [...] Team Providers + +------+ + | Care English Instructor Name | Role | Phone | + +------+ + | Alisha Stovall PA-C PCP | | + +------+ + Encounter Details +--------+--------+ + + + | Date | Type | Department | Care Team | Description | +--------+--------+ + + + | 04/12/ | Travel | | | | | [...] [address] | | | | | | [place], [place] | | | | | | [address] | | | | | | [phone] | | | | | | | | +--------+ + + + + | 11/17/ | Video/TeleH | Pain Management | Florencio Lockett, | | | 2019 | ealth-Sched | | PhD [address] | | | | uled | | [place], [place] | | | | | | [address] | | | | | | [phone] | | | | | | | | +--------+ + + + + | 12/01/ | Video/TeleH | Pain Management | Florencio Lockett, | | | 2019 | ealth-Sched | | PhD [address] | | | | uled | | [place], [place] | | | | | | [address] | | | | | | [phone] | | | | | | | | +--------+ + + + + | 01/06/ | Office | Plastic Surgery | Kuldip Harrell MD | | 2019 | Visit | | [address] | | | | | | [place], [place] | | | | | | [address] | | | | | | [phone] | | | | | | | | +--------+ + + + + documented as of this encounter Visit Diagnoses Not on filedocumented in this encounter"
--- OUTSIDE RECORDS SUMMARY | ~2019-11-06 | XMS | Encounter Summary ---
Demographics + + + | Address | [address] | | | [place] [address] | + + + | Home Phone [...] Providers + +------+ + | Care Rn Field Name | Role | Phone | + [...] | Post-discharge | | 2019 | | [place] [facility] [address] | [address] | follow-up | | | | [address] | [place], [place] | | | | | for Health and | [address] | | | | | [facility] | [phone] | | | | | [place], [place] | | | | | | [address] | | | | | | | [...] [address] | | | | | | [place], [place] | | | | | | [address] | | | | | | [phone] | | | | | | | | +--------+ + + + + | 11/17/ | Video/TeleH | Pain Management | Florencio Lockett, | | | 2019 | ealth-Sched | | PhD [address] | | | | uled | | [place], [place] | | | | | | [address] | | | | | | [phone] | | | | | | | | +--------+ + + + + | 12/01/ | Video/TeleH | Pain Management | Florencio Lockett, | | | 2019 | ealth-Sched | | PhD [address] | | | | uled | | [place], [place] | | | | | | [address] | | | | | | [phone] | | | | | | | | +--------+ + + + + | 01/06/ | Office | Plastic Surgery | Kuldip Harrell MD | | | 2019 | Visit | | [address] | | | | | | [place], [place] | | | | | | [address] | | | | | | [phone] | | | | | | | | +--------+ + + + + documented as of this encounter Visit Diagnoses Not on filedocumented in this encounter"
--- OUTSIDE RECORDS SUMMARY | ~2019-11-06 | XMS | Encounter Summary ---
Demographics + + + | Address | [address] | | | [place] [address] | + + + | Home Phone | | + + + | Preferred Language | Unknown | + + + | Marital Status | | + + + | Presybeterian Affiliation | NRP | + + + | Race | White | + + + | Ethnic Group | Not or | + + + Author + + + | Author | [facility] | + + + | Organization | [facility] | + + + | Address | Unknown | + + + | Phone | Unavailable | + + + Support + + +---------+ + | Name | Relationship | Address | Phone | + + +---------+ + | Jeovanny Hernández | ECON | Unknown | | + + +---------+ + Care Team Providers + +------+ + | Care Armor Reconnaissance Vehicle Driver Name | Role | Phone | + +------+ + | Alisha Stovall PA-C | PCP | | + +------+ + Encounter Details +--------+ + + + + | Date | Type | Department | Care Team | Description | +--------+ + + + + | 08/15/ | Abstract | Digestive Health | Clinic, Surgery | | | 2017 | | [place] [address] [address] | | | | | | [address] [facility] | | | | | | for Health and | | | | | | Healing, [address] | | | | | | [place], [place] | | | | | | [address] | | | | | | [phone] | | | +--------+ + + + [...] | | 2019 | Visit | | [address] | | | | | | [place], [place] | | | | | | [address] | | | | | | [phone] | | | | | | | | +--------+ + + + + | 11/17/ | Video/TeleH | Pain Management | Florencio Locktet, | | | 2019 | ealth-Sched | | PhD [address] | | | | uled | | [place], [place] | | | | | | [address] | | | | | | [phone] | | | | | | | | +--------+ + + + + | 12/01/ | Video/TeleH | Pain Management | Florencio Lockett, | | | 2019 | ealth-Sched | | PhD [address] | | | | uled | | [place], [place] | | | | | | [address] | | | | | | [phone] | | | | | | | | +--------+ + + + + | 01/06/ | Office | Plastic Surgery | Kuldip Harrell MD | | 2019 | Visit | | [address] | | | | | | [place], [place] | | | | | | [address] | | | | | | [phone] | | | | | | | | +--------+ + + + + documented as of this encounter Visit Diagnoses Not on filedocumented in this encounter"
--- OUTSIDE RECORDS SUMMARY | ~2019-11-06 | XMS | Encounter Summary ---
Demographics + + + | Address | [address] | | | [place] [address] | + + + | Home Phone | | + + + | Preferred Language | Unknown | + + + | Marital Status | | + + + | Christian Affiliation | NRP | + + + [...] Team Providers + +------+ + | Care School Inspector Name | Role | Phone | [...] | 2018 | Encounter | Preventive at [facility] | SHANICE Vill[address] | | | | | [address] | [address] [employer], | | | | | [place] for [facility] | [place] [address] | | | | | and Healing, | [phone] | | | | | [address] | | | | | | [employer], [place] | | | | | | [address] | | | | | | [phone] | | | +--------+ + + + [...] [address] | | | | | | [employer], [place] | | | | | | [address] | | | | | | [phone] | | | | | | | | +--------+ + + + + | 11/17/ | Video/TeleH | Pain Management | Florencio Lockett, | | | 2019 | ealth-Sched | | PhD [address] | | | | uled | | [employer], [place] | | | | | | [address] | | | | | | [phone] | | | | | | | | +--------+ + + + + | 12/01/ | Video/TeleH | Pain Management | Florencio Lockett G, | | | 2019 | ealth-Sched | | PhD [address] | | | | uled | | [employer], [place] | | | | | | [address] | | | | | | [phone] | | | | | | | | +--------+ + + + + | 01/06/ | Office | Plastic Surgery | Kuldip Harrell MD | | | 2019 | Visit | | [address] | | | | | | [employer], [place] | | | | | | [address] | | | | | | [phone] | | | | | | | | +--------+ + + + + documented as of this encounter Visit Diagnoses Not on filedocumented in this encounter"
--- OUTSIDE RECORDS SUMMARY | ~2019-11-06 | XMS | Encounter Summary ---
Demographics + + + | Address | [address] | | | [place] [address] | + + + | Home Phone | | + + + | Preferred Language | Unknown | + + + | Marital Status | | + + + | Restorationism Affiliation | NRP | + + + | Race | White | + + + | Ethnic Group | Not or | + + + Author + + + | Author | [facility] | + + + | Organization | [facility] | + + + | Address | Unknown | + + + | Phone | Unavailable | + + + Support + + +---------+ + | Name | Relationship | Address | Phone | + + +---------+ + | Jeovanny Hernández | ECON | Unknown | | + + +---------+ + Care Team Providers + +------+ + | Care Senior Account Executive Name | Role | Phone | + [...] | | | | | disease, | [facility] [place] | [place], | | | | | esophagitis | [address] | [place] | | | | | presence not | Phone: | [phone] | | | | | specified | [phone] | Phone: | | | | | S/P gastric | Fax: | [phone] | | | | | bypass | [phone] | Fax: | | | | | Epigastric | | [phone] | | | | | pain | [...] Closed | | Gastroenterol | Diagnoses | [place], | [facility] | | | | ogy | | Kenan Santos MD | [facility] [address] | | | | | Gastroesopha | [address] | | | | | geal reflux | [address] | [place] for | | | | | disease, | [place], [place] | Health and | | | | | esophagitis | [address] | Healing, | | | | | presence not | Phone: | [address] | | | | | specified | | [place], [place] | | | | | S/P gastric | Fax: | [phone] | | | | | bypass | [phone] | Phone: | | | | | Epigastric | | [phone] | | | | | pain | | Fax: | | | | | Decreased | | [phone] | | | | | oral intake [...] 2019 | Encounter | Center at [facility] [address] | MD [address] | | | | | [address] [place] | [place], [place] | | | | | for Health and | [address] | | | | | [facility] | [phone] | | | | | [place], [place] | | | | | | [address] | | | | | | | [...] | | 2019 | Visit | | [address] | | | | | | [place], [place] | | | | | | [address] | | | | | | [phone] | | | | | | | | +--------+ + + + + | 11/17/ | Video/TeleH | Pain Management | Florencio Lockett, | | | 2019 | ealth-Sched | | PhD [address] | | | | uled | | [place], [place] | | | | | | [address] | | | | | | [phone] | | | | | | | | +--------+ + + + + | 12/01/ | Video/TeleH | Pain Management | Florencio Lockett, | | | 2019 | ealth-Sched | | PhD [address] | | | | uled | | [place], [place] | | | | | | [address] | | | | | | [phone] | | | | | | | | +--------+ + + + + | 01/06/ | Office | Plastic Surgery | Kuldip Harrell MD | | | 2019 | Visit | | [address] | | | | | | [place], [place] | | | | | | [address] | | | | | | [phone] | | | | | | | [...]
--- OUTSIDE RECORDS SUMMARY | ~2019-11-06 | XMS | Encounter Summary ---
Demographics + + + | Address | [address] | | | [place] [address] | + + + | Home Phone [...] Providers + +------+ + | Care Auto Hauler Name | Role | Phone | + +------+ + | Alisha Stovall PA-C | PCP | | + +------+ + Encounter Details +--------+ + + + + | Date | Type | Department | Care Team | Description | +--------+ + + + + | 02/06/ | Hospital | Radiology/Imaging | Sarah Barba | | | 2018 | Encounter | Lab at [facility] [address] | SHANICE [address]te [address] | | | | | [address] [facility] | [address] [facility] | | | | | Health and Healing, | [place] [address] | | | | | [place] [address] [id number] | [phone] | | | | | [place], [place] | | | | | | [address] | | | | | | [phone] | | | +--------+ + + + [...] [address] | | | | | | [place], [place] | | | | | | [address] | | | | | | [phone] | | | | | | | | +--------+ + + + + | 11/17/ | Video/TeleH | Pain Management | Florencio Lockett, | | | 2019 | ealth-Sched | | PhD [address] | | | | uled | | [place], [place] | | | | | | [address] | | | | | | [phone] | | | | | | | | +--------+ + + + + | 12/01/ | Video/TeleH | Pain Management | Florencio Lockett, | | | 2019 | ealth-Sched | | PhD [address] | | | | uled | | [place], [place] | | | | | | [address] | | | | | | [phone] | | | | | | | | +--------+ + + + + | 01/06/ | Office | Plastic Surgery | Kuldip Harrell MD | | | 2019 | Visit | | [address] | | | | | | [place], [place] | | | | | | [address] | | | | | | [phone] | | | | | | | [...]
--- OUTSIDE RECORDS SUMMARY | ~2019-11-06 | XMS | Encounter Summary ---
Demographics + + + | Address | [address] | | | [place] [address] | + + + | Home Phone [...] Team Providers + +------+ + | Care Dinkey Mechanic Name | Role | Phone | + +------+ + | Ailsha Stovall PA-C | PCP | | + +------+ + Reason for Visit + + + | Reason | Comments | + + + | Pre-op evaluation | | + + + Encounter Details +--------+ + + + + | Date | Type | Department | Care Team | Description | +--------+ + + + + | 09/05/ | Telephone-S | Preoperative | | Pre-op evaluation | | 2019 | cheduled | Medicine Clinic at | | | | | | [facility] | | | | | | [address] | | | | | | [facility] | | | | | | and Healing, | | | | | | [address] | | | | | | [place], [place] | | | | | | [address] | | | | | | [phone] | | | +--------+ + + + + Anesthesia Record + + + + + | Procedure Name | Responsible | Anesthesia Start | Anesthesia Stop Time | | | Anesthesiologist | Time | | + + + + + | LAPAROSCOPIC NOREEN EN | Maciel Kincaid MD | 09/24/18 1205 | 09/24/18 [...] | 09/24/18; 1218; LAMAR NGUYEN ; 1; Shanat; | 09/24/18 1218 by | 09/24/18 1510 by | | al | 16 Fr.; 10 mL; 09/24/18; 1510 | Nora Stiles RN | Nora Stiles RN | | Cathet | | | | | er | | | | +--------+ + + + | ETT | 09/24/18; 1221 (created via | 09/24/18 1221 by | 09/24/18 151 by | | | procedure documentation); 7; | Heather Zamorano, FINISH ROLLS OPERATOR | Heather Zamorano CRNA | | | Oral; Cuffed; 09/24/18; 1512 | | | +--------+ + + + | Periph | 09/24/18; 1350; Mines; Left; | 09/24/18 1350 by | 09/26/18 1241 by | | beckie | Hand; 20 g; None; No; Positive; | Heather A Jaun, FINISH ROLLS OPERATOR | Brii Pulido RN | | IV [...] of this encounter Patient Instructions Patient Instructions Yoon Farias RN - 09/05/2018 1:20 PM PDTFormatting of this not e might be different from the original. PREOPERATIVE INSTRUCTIONS Follow Bariatric pre op instructions given to you by your surgeon Clear liquid diet until 4 hours before report time. At the 4 hour time point, you should dr ink one electrolyte drink to help regular blood sugar and prevent dehydration (one normal si ze gatorade/powerade). Drink clear liquids (any color) for one day prior to surgery to clean the stomach out of an y formed foods. This includes tea, broths, jello, gatorade/powerade, decaf coffee. TAKE the following medications with a sip of water on the morning of surgery: Do NOT take the following medications on the morning of surgery: Current Medication List Name Sig ACETAMINOPHEN 325 MG TABLET Take 2 tablets by mouth every six hours as needed for pain. Cut tablet into small pieces. Do not crush. ASCORBIC ACID (VITAMIN C) 500 MG TABLET Take 1 tablet by mouth three times daily. BECLOMETHASONE DIPROPIONATE 40 MCG/ACTUATION AEROSOL INHALER Inhale 1 puff two times daily. CHLORHEXIDINE GLUCONATE 0.12 % MOUTHWASH Take 15 mL by mouth two times daily. Swish 15 ml o f undiluted oral rinse around in your mouth for 30 seconds, then spit out. Do not swallow. Paulo garcia use the mouthwash twice per day for 5 days prior to surgery and the morning of surgery after brushing teeth for a total of 11 doses. CHOLECALCIFEROL (VITAMIN D3) 2,000 UNIT CAPSULE Take 1 capsule by mouth once daily. ERGOCALCIFEROL (VITAMIN D2) 50,000 UNIT CAPSULE Take 1 capsule by mouth every seven days. F or 12 weeks Indications: Vitamin D Deficiency (High Dose Therapy) EVENING PRIMROSE ORAL Take by mouth once daily at bedtime. GLYCERIN (ADULT) RECTAL SUPPOSITORY Unwrap and insert 1 suppository rectally once daily as needed for constipation. IRON ORAL Take by mouth once daily in the morning. METFORMIN 500 MG TABLET Take 1,000 mg by mouth two times daily. Takes two tabs equaling 100 0 mg BID TRI-PREVIFEM (28) ORAL Take by mouth once daily at bedtime. OMEPRAZOLE 20 MG CAPSULE,DELAYED RELEASE Take 1 capsule by mouth once daily in the morning for 90 days. Open the capsule and mix into sugar-free liquid or yogurt. ONDANSETRON 4 MG DISINTEGRATING TABLET Dissolve 1 tablet on tongue every six hours as neede d for nausea/vomiting. PANTOPRAZOLE 20 MG TABLET,DELAYED RELEASE Take 1 tablet by mouth two times daily. Indicatio ns: gastroesophageal reflux disease POLYETHYLENE GLYCOL 3350 17 GRAM/DOSE ORAL POWDER Dissolve 17g (1 capful) in at least 4 oun umm of fluid and drink once daily as needed for constipation. PROPRANOLOL 40 MG TABLET Take 40 mg by mouth two times daily. RANITIDINE 150 MG CAPSULE 1 capsule by mouth 1-2 times per day as needed for breakthrough r eflux symptoms RIBOFLAVIN (VITAMIN B2) 100 MG TABLET Take 100 mg by mouth once daily in the morning. SIMETHICONE 80 MG CHEWABLE TABLET Chew and swallow 1 tablet four times daily as needed for gas/bloating. TOPIRAMATE 50 MG TABLET 50 mg two times daily. URSODIOL 300 MG CAPSULE Take 1 capsule by mouth two times daily. Start taking two weeks aft er your surgery. Please bring CPAP/BPAP or Oral Appliance with you on the day of procedure Unless Otherwise Directed by your Surgeon Do not take any Aspirin, vitamin E or non-ster oidal anti-inflammatory (NSAIDs i.e. Advil, Aleve, Ibuprofen) or herbal supplements seven da ys prior to your surgery. These drugs may interfere with normal blood clotting and may cause excessive bleeding and bruising during or after the surgery. If you are taking Coumadin (warfarin), Plavix or any other blood thinners please let you r surgical team know as medication changes will be necessary. If you need a pain medication for general purposes, use Tylenol as directed. If you are in doubt about any medications that you are taking, please contact our office . Important Guidelines Do not shave the surgical area Do not smoke, drink alcohol or use recreational drugs for 24 hours before your surgery Do not eat any hard candy or chew gum after midnight the night before your surgery. Watch for any change in your health condition. Let your surgeon know right away if you do not feel well. Do not wear makeup, perfume, lotions or powder. Do not wear any jewelry to the hospital. Wear loose, comfortable clothing. Bring the case and solution for your contact lenses or wear your glasses. Leave all your valuables at home. Allow enough travel time so you re not late for your check in for surgery. Take a bath or shower and remember to shampoo your hair using your usual hair product be fore your arrival at the hospital. Please remember to brush your teeth the night before and the morning of your procedure. Surgery Check in Locations Admitting [facility], [facility] Surgery Check in Time: Someone from your surgeon's office or [facility] will provide you with information regarding your check in time. If you have any questions about this, pl ease contact your surgeon's office. Going Home Your surgical team will decide when you are medically ready to go home. If you are released to go home on the same day as your procedure/surgery please note the following: You will not be able to drive. You will be required to have a competent adult drive you or accompany you by taxi or pub lic transportation on the day of discharge. It is also required that you have a competent adult assist you and look after you on the first night after you have undergone regional blocks (72 hours for patients going home with regional block pump), deep sedation, and/or general anesthesia. If you stayed in the hospital after surgery, please arrange for your ride to come for yo u around 9AM on the day your doctor says you can go home. Check out time is 11AM. If you have questions or concerns after you go home, call your doctor s office. If it is after office hours, call the [facility] heading machine operator at [phone] and ask them to page your doc tor. PREOPERATIVE INSTRUCTIONS Follow Bariatric pre op instructions given to you by your surgeon Clear liquid diet until 4 hours before report time. At the 4 hour time point, you should dr ink one electrolyte drink to help regular blood sugar and prevent dehydration (one normal si ze gatorade/powerade). Drink clear liquids (any color) for one day prior to surgery to clean the stomach out of an y formed foods. This includes tea, broths, jello, gatorade/powerade, decaf coffee. TAKE the following medications with a sip of water on the morning of surgery: TOPIRAMATE 50 MG TABLET PROPRANOLOL 40 MG TABLET RANITIDINE 150 MG CAPSULE Use pre-operatively as instructed by your surgeon: CHLORHEXIDINE GLUCONATE 0.12 % MOUTHWASH Use the following as directed/needed and Please bring Inhalers with you on the day of surge ry/procedure: BECLOMETHASONE DIPROPIONATE 40 MCG/ACTUATION AEROSOL INHALER Do NOT take the following medications on the morning of surgery: ASCORBIC ACID (VITAMIN C) 500 MG TABLET CHOLECALCIFEROL (VITAMIN D3) 2,000 UNIT CAPSULE ERGOCALCIFEROL (VITAMIN D2) 50,000 UNIT CAPSULE EVENING PRIMROSE ORAL IRON ORAL METFORMIN 500 MG TABLET TRI-PREVIFEM (28) ORAL RIBOFLAVIN (VITAMIN B2) 100 MG TABLET Please take the following medications post-operatively as instructed by your surgeon: ACETAMINOPHEN 325 MG TABLET GLYCERIN (ADULT) RECTAL SUPPOSITORY OMEPRAZOLE 20 MG CAPSULE,DELAYED RELEASE ONDANSETRON 4 MG DISINTEGRATING TABLET POLYETHYLENE GLYCOL 3350 17 GRAM/DOSE ORAL POWDER SIMETHICONE 80 MG CHEWABLE TABLET URSODIOL 300 MG CAPSULE Please bring CPAP/BPAP or Oral Appliance with you on the day of procedure Unless Otherwise Directed by your Surgeon Do not take any Aspirin, vitamin E or non-ster oidal anti-inflammatory (NSAIDs i.e. Advil, Aleve, Ibuprofen) or herbal supplements seven da ys prior to your surgery. These drugs may interfere with normal blood clotting and may cause excessive bleeding and bruising during or after the surgery. If you are taking Coumadin (warfarin), Plavix or any other blood thinners please let you r surgical team know as medication changes will be necessary. If you need a pain medication for general purposes, use Tylenol as directed. If you are in doubt about any medications that you are taking, please contact our office . Important Guidelines Do not shave the surgical area Do not smoke, drink alcohol or use recreational drugs for 24 hours before your surgery Do not eat any hard candy or chew gum after midnight the night before your surgery. Watch for any change in your health condition. Let your surgeon know right away if you do not feel well. Do not wear makeup, perfume, lotions or powder. Do not wear any jewelry to the hospital. Wear loose, comfortable clothing. Bring the case and solution for your contact lenses or wear your glasses. Leave all your valuables at home. Allow enough travel time so you re not late for your check in for surgery. Take a bath or shower and remember to shampoo your hair using your usual hair product be fore your arrival at the hospital. Please remember to brush your teeth the night before and the morning of your procedure. Surgery Check in Locations Admitting [facility], [facility] Surgery Check in Time: Someone from your surgeon's office or [facility] will provide you with information regarding your check in time. If you have any questions about this, pl ease contact your surgeon's office. Going Home Your surgical team will decide when you are medically ready to go home. If you are released to go home on the same day as your procedure/surgery please note the following: You will not be able to drive. You will be required to have a competent adult drive you or accompany you by taxi or pub lic transportation on the day of discharge. It is also required that you have a competent adult assist you and look after you on the first night after you have undergone regional blocks (72 hours for patients going home with regional block pump), deep sedation, and/or general anesthesia. If you stayed in the hospital after surgery, please arrange for your ride to come for yo u around 9AM on the day your doctor says you can go home. Check out time is 11AM. If you have questions or concerns after you go home, call your doctor s office. If it is after office hours, call the [facility] heading machine operator at [phone] and ask them to page your doc tor. documented in this encounter Plan of Treatment +--------+ + + + + | Date | Type | Specialty | Care Team | Description | +--------+ + + + + | 11/13/ | Office | Gastroenterology | Cassidy Schneider, | | | 2019 | Visit | | MD [address] | | | | | | [place], [place] | | | | | | [address] | | | | | | [phone] | | | | | | | | +--------+ + + + + | 11/17/ | Video/TeleH | Pain Management | Florencio Lockett, | | | 2019 | ealth-Sched | | PhD [address] | | | | uled | | [place], [place] | | | | | | [address] | | | | | | [phone] | | | | | | | | +--------+ + + + + | 12/01/ | Video/TeleH | Pain Management | Florencio Lockett, | | | 2019 | ealth-Sched | | PhD [address] | | | | uled | | [place], [place] | | | | | | [address] | | | | | | [phone] | | | | | | | | +--------+ + + + + | 01/06/ | Office | Plastic Surgery | Kuldip Harrell MD | | | 2020 | Visit | | [address] | | | | | | [place] | | | | | | [address] | | | | | | [phone] | | | | | | | | +--------+ + + + + documented as of this encounter Visit Diagnoses Not on filedocumented in this encounter"
--- OUTSIDE RECORDS SUMMARY | ~2019-11-06 | XMS | Encounter Summary ---
Demographics + + + | Address | [address] | | | [place] [address] | + + + | Home Phone [...] + + + + | 06/23/ | Track Repair Worker | Digestive Health | Kenan Norton, | | | 2019 | | [facility] | MD [address] | | | | | [address] [place] | [facility] [place] | | | | | for Health and | [address] | | | | | Healing, [address] | [phone] | | | | | [place], [place] | | | | | | [address] | | | | | | [phone] | | | +--------+ + + + [...] [address] | | | | | | [place], [place] | | | | | | [address] | | | | | | [phone] | | | | | | | | +--------+ + + + + | 11/17/ | Video/TeleH | Pain Management | Florencio Lockett, | | | 2019 | ealth-Sched | | PhD [address] | | | | uled | | [place], [place] | | | | | | [address] | | | | | | [phone] | | | | | | | | +--------+ + + + + | 12/01/ | Video/TeleH | Pain Management | Florencio Lockett, | | | 2019 | ealth-Sched | | PhD [address] | | | | uled | | [place], [place] | | | | | | [address] | | | | | | [phone] | | | | | | | | +--------+ + + + + | 01/06/ | Office | Plastic Surgery | Kuldip Harrell MD | | | 2019 | Visit | | [address] | | | | | | [place], [place] | | | | | | [address] | | | | | | [phone] | | | | | | | | +--------+ + + + + documented as of this encounter Visit Diagnoses Not on filedocumented in this encounter"
--- OUTSIDE RECORDS SUMMARY | ~2019-11-06 | XMS | Encounter Summary ---
Demographics + + + | Address | [address] | | | [place] [address] | + + + | Home Phone [...] Team Providers + +------+ + | Care Drum Operator Name | Role | Phone | [...] | | 2019 | | Center at [facility] [address] | MD [address] | | | | | [address] | [place], [place] | | | | | for Health and | [address] | | | | | Healing, [address] | | | | | | [place], [place] | | | | | | [address] | | | | | | | [...] | | 2020 | Visit | | [address] | | | | | | [place], [place] | | | | | | [address] | | | | | | [phone] | | | | | | | | +--------+ + + + + | 11/17/ | Video/TeleH | Pain Management | Florencoi Lockett, | | | 2019 | ealth-Sched | | PhD [address] | | | | uled | | [place], [place] | | | | | | [address] | | | | | | [phone] | | | | | | | | +--------+ + + + + | 12/01/ | Video/TeleH | Pain Management | Florencio Lockett, | | | 2019 | ealth-Sched | | PhD [address] | | | | uled | | [place], [place] | | | | | | [address] | | | | | | [phone] | | | | | | | | +--------+ + + + + | 01/06/ | Office | Plastic Surgery | Kuldip Harrell MD | | | 2019 | Visit | | [address] | | | | | | [place], [place] | | | | | | [address] | | | | | | [phone] | | | | | | | | +--------+ + + + + documented as of this encounter Visit Diagnoses Not on filedocumented in this encounter"
--- OUTSIDE RECORDS SUMMARY | ~2019-11-06 | XMS | Encounter Summary ---
Demographics + + + | Address | [address] | | | [place] [address] | + + + | Home Phone [...] Team Providers + +------+ + | Care Backend Java Developer Name | Role | Phone | + +------+ + | Alisha Stovall PA-C | PCP | | + +------+ + Encounter Details +--------+ + + + + | Date | Type | Department | Care Team | Description | +--------+ + + + + | 03/22/ | Abstract | Digestive Health | Clinic, Surgery | | | 2017 | | [place] [address] [address] | | | | | | [address] [facility] | | | | | | for Health and | | | | | | Healing, [address] | | | | | | [place], [place] | | | | | | [address] | | | | | | [phone] | | | +--------+ + + + [...] Ave | | | | | | [place], [place] | | | | | | [address] | | | | | | [phone] | | | | | | | | +--------+ + + + + | 11/17/ | Video/TeleH | Pain Management | Florencio Lockett, | | | 2019 | ealth-Sched | | PhD [address] | | | | uled | | [place], [place] | | | | | | [address] | | | | | | [phone] | | | | | | | | +--------+ + + + + | 12/01/ | Video/TeleH | Pain Management | Florencio Lockett, | | | 2019 | ealth-Sched | | PhD [address] | | | | uled | | [place], [place] | | | | | | [address] | | | | | | [phone] | | | | | | | | +--------+ + + + + | 01/06/ | Office | Plastic Surgery | Kuldip Harrell MD | | | 2020 | Visit | | [address] | | | | | | [place], [place] | | | | | | [address] | | | | | | [phone] | | | | | | | | +--------+ + + + + documented as of this encounter Visit Diagnoses Not on filedocumented in this encounter"
--- OUTSIDE RECORDS SUMMARY | ~2019-11-06 | XMS | Encounter Summary ---
Demographics + + + | Address | [address] | | | [place] [address] | + + + | Home Phone [...] Team Providers + +------+ + | Care Credit Administration Manager Name | Role | Phone | [...] [address] | | | | | ([facility]) | Martin Shea | [address] | | | | | Abnormal ECG | Rd | [place], [place] | | | | | | [place], [place] | [address] | | | | | Hypertension | [address] | Phone: | | | | | , | Phone: | [phone] | | | | | unspecified | [phone] | Fax: | | | | | type | Fax: | [phone] | | | | | Procedures | [phone] | | | | | | CONSULT [...] | | 2017 | | Center at [facility] [address] | [address] | | | | | [address] [facility] | Monse Hernandez [place], | | | | | for Health and | [place] [address] | | | | | [facility], [facility] 2 | [phone] | | | | | [place], [place] | | | | | | [address] | | | | | | [phone] | | | +--------+ + + + [...] Ave | | | | | | [place], [place] | | | | | | [address] | | | | | | [phone] | | | | | | | | +--------+ + + + + | 11/17/ | Video/TeleH | Pain Management | Florencio Lockett, | | | 2019 | ealth-Sched | | PhD [address] | | | | uled | | [place], [place] | | | | | | [address] | | | | | | [phone] | | | | | | | | +--------+ + + + + | 12/01/ | Video/TeleH | Pain Management | Florencio Lockett, | | | 2019 | ealth-Sched | | PhD [address] | | | | uled | | [place], [place] | | | | | | [address] | | | | | | [phone] | | | | | | | | +--------+ + + + + | 01/06/ | Office | Plastic Surgery | Kuldip Harrell MD | | | 2019 | Visit | | [address] | | | | | | [place], [place] | | | | | | [address] | | | | | | [phone] | | | | | | | [...]
--- OUTSIDE RECORDS SUMMARY | ~2019-11-06 | XMS | Encounter Summary ---
Demographics + + + | Address | [address] | | | [place] [address] | + + + | Home Phone [...] Team Providers + +------+ + | Care Fundraising Assistant Name | Role | Phone | [...] | | | | CONSULT TO | [place], [place] | [place], [place] | | | | | PAIN | [address] | [address] | | | | | MANAGEMENT | Phone: | Phone: | | | | | [place] | [phone] | [phone] | | | | | BIOFEEDBACK | Fax: | Fax: | | | | | [facility],[place] | [phone] | [phone] | | | | | MODALITY | | | + +---------+ + + + + Encounter Details +--------+ + + + + | Date | Type | Department | Care Team | Description | +--------+ + + + + | 11/03/ | Video/TeleH | Pain Center at [facility] | Florencio Lockett, | Follow-up visit | | 2020 | ealth-Sched | [address] | PhD [address] | | | | uled | Center for Health | [place], [place] | | | | | and Healing, | [address] | | | | | [facility] | [phone] | | | | | Floor [place], [place] | | | | | | [address] | | | | | | [phone] | | | +--------+ + + + [...] virtually located at the distant site of [facility]. The patient stated they were located at the originating site of [facility] and were in the [facility] at the time of the virtual visit. The names of all additional persons participatin g in the virtual visit and their roles are: Maria De Jesus Hernández, patient, Ran Lockett, provider. I have spent a total of 59 minutes on this patient's care today. This time includes the vi rtual visit [id number] time with the patient as well as time spent reviewing patient recor ds, coordinating/communicating with care teams and documenting the patient visit. INDIVIDUAL THERAPY PROGRESS NOTE: BARIATRIC FOLLOW-UP (INCLUDING DIET AND EXERCISE COUNSELING) Name: Maria De Jesus Hernández : 1990 Medical Record: [id number] Chief Complaint: Morbid obesity Date of Service: [...] and practiced diaphragmatic breathing. We discussed keri waddell. She mentioned that she is uncertain about portion sizes. She is not measuring her portions. She plans to contact the public relations senior associate to ask about portions and food choices. [...] therapy. Florencio Lockett, PhD [facility] [address] Mailcode: [id number] [place] [address] documented in this en counter Plan of Treatment +--------+ + + + + | Date | Type | Specialty | Care Team | Description | +--------+ + + + + | 11/13/ | Office | Gastroenterology | Cassidy Schneider, | | | 2019 | Visit | | MD [address] | | | | | | [place], [place] | | | | | | [address] | | | | | | [phone] | | | | | | | | +--------+ + + + + | 11/17/ | Video/TeleH | Pain Management | Florencio Lockett, | | | 2019 | ealth-Sched | | PhD [address] | | | | uled | | [place], [place] | | | | | | [address] | | | | | | [phone] | | | | | | | | +--------+ + + + + | 12/01/ | Video/TeleH | Pain Management | Florencio Lockett, | | | 2019 | ealth-Sched | | PhD [address] | | | | uled | | [place], [place] | | | | | | [address] | | | | | | [phone] | | | | | | | | +--------+ + + + + | 01/06/ | Office | Plastic Surgery | Kuldip Harrell MD | | | 2019 | Visit | | [address] | | | | | | [place], [place] | | | | | | [address] | | | | | | [phone] | | | | | | | [...]
--- OUTSIDE RECORDS SUMMARY | ~2019-11-06 | XMS | Encounter Summary ---
Demographics + + + | Address | [address] | | | [place] [address] | + + + | Home Phone [...] Team Providers + +------+ + | Care Graphic Art Sales Representative Name | Role | Phone | + +------+ + | Alisha Stovall PA-C | PCP | | + +------+ + Encounter Details +--------+ + + + + | Date | Type | Department | Care Team | Description | +--------+ + + + + | 12/28/ | Telephone | Digestive Health | Kenan Norton, | | | 2019 | | [place] [address] | [address] | | | | | [address] Mailcode: CH4S | [facility] [place] | | | | | [facility] | [address] | | | | | and [place], | [phone] | | | | | [facility] | | | | | | Floor [place], [place] | | | | | | [address] | | | | | | [phone] | | | +--------+ + + + [...] [address] | | | | | | [place], [place] | | | | | | [address] | | | | | | [phone] | | | | | | | | +--------+ + + + + | 11/17/ | Video/TeleH | Pain Management | Florencio Lockett, | | | 2019 | ealth-Sched | | PhD [address] | | | | uled | | [place], [place] | | | | | | [address] | | | | | | [phone] | | | | | | | | +--------+ + + + + | 12/01/ | Video/TeleH | Pain Management | Florencio Lockett G, | | | 2019 | ealth-Sched | | PhD [address] | | | | uled | | [place], [place] | | | | | | [address] | | | | | | [phone] | | | | | | | | +--------+ + + + + | 01/06/ | Office | Plastic Surgery | Kuldip Harrell MD | | | 2019 | Visit | | [address] | | | | | | [place], [place] | | | | | | [address] | | | | | | [phone] | | | | | | | | +--------+ + + + + documented as of this encounter Visit Diagnoses Not on filedocumented in this encounter"
--- OUTSIDE RECORDS SUMMARY | ~2019-11-06 | XMS | Encounter Summary ---
Demographics + + + | Address | [address] | | | [place] [address] | + + + | Home Phone [...] Team Providers + +------+ + | Care Snipper Name | Role | Phone | + [...] | [facility] | | | with CARTOGRAPHY TECHNICIAN | | | Surg Chh2 | Chh2 [...] [address] | | | | | | [place], | [place], [place] | | | | | | [place] | [address] | | | | | | [address] | Phone: | | | | | | Phone: | | | | | | | | Fax: | | | | | | Fax: | [phone] | | | | | | [phone] | | +--------+ + + + + + Encounter Details +--------+ + + + + | Date | Type | Department | Care Team | Description | +--------+ + + + + | 08/29/ | Video/TeleH | Digestive Health | Kenan Norton, | Follow-up visit | | 2019 | ealt-Sched | Center at [facility] [address] | MD [address] | | | | uled | [address] | [place], [place] | | | | | for Health and | [address] | | | | | [facility] | [phone] | | | | | [place], [place] | | | | | | [address] | | | | | | | [...] encounter Progress Notes Kenan Norton MD - 08/30/2019 11:00 AM PDTFormatting of this note might be different fr om the original. BARIATRIC SURGERY OFFICE VISIT DATE OF VISIT: 08/30/19 REASON FOR VISIT: long-term follow-up Brief Hx: Maria De Jesus Anna is a(n) 28 y.o. female with history of LRYGB and cholecystectomy on 09/24/2018, post-op course complicated by persistent nausea, occasional vomiting, poor po intake and multiple food intolerances, dehydration requiring IVF infusions, as well as epiga stric pain. She underwent laparoscopic placement of remnant gastrostomy tube on 05/30/2019. Interval Hx: She has improved her nutrition and po intake in the interim. However, her tube was leaking/ malfunctioning and wasn't able to be fixed with troubleshooting by her supplier. Thus, she u nderwent tube exchange 2 days ago with her surgeon in [facility] Dr. Whitlock. She report she is sore from the cautierization of her granulation tissue. She would like liquid dilaudid inst ead of having to crush the tablets. Overall she feels low energy She reports weight has gone down, but not significantly, she has been off tube feeding sin june Nausea and dry heaves continue, but she is usually eat breakfast, lunch, dinner and snackin g -> she has had improvement with portion control - her significant other is helping her wit h this and she has less episodes of eating too much. She continues to need scope patch and p rochlorperazine for nausea control. She is getting 32 oz of fluid a day, which is significantly improved Not sleeping well - waking up 2-4 am, working with her therapist, considering meditation pr ogram - which I have encouraged her to try in the past Remains constipated, she reports to me that her GI appointment was cancelled due to COVID, she has not received a rescheduled appointment Past Surgical History Procedure Laterality Date Acl repair Left Upper gi endoscopy Manipulation of knee joint under general anesthesia Left Laparoscopic andreia-en-y gastric bypass with cholecystectomy 09/24/[address] [facility] [address] Norton PHYSICAL EXAMINATION: GENERAL: In no apparent distress, alert. Pleasant Tube site appeared clean and without evidence of infection IMPRESSION: A(n) 28 y.o. female s/p RYGB who has never thrived post-op, she has struggled with pain, nausea, constipation, and low energy. She is s/p remnant gastrostomy tube for nut ritional supplementation, had malfunctioning tube replaced earlier this week in [place]. S he now needs to restart her tube feeds and she reports she has plenty of supplies at home. S he overall seems to have improved her po intake, reporting success with portion control and she is in better spirits than previous visits. Although fluid intake is better, she reports dark urine and dizziness and she could benefit from weekly fluid infusion, she agrees. PLAN: - Will arrange for fluid infusion 1x/week - Discussed plan to restart tube feeds today, she has all the supplies, she will contact he r supplier/chief learning officer - Will call patient's pharmacy to see if dilaudid can be switched to a liquid - Her GI appointment was cancelled, I will reach out to Dr. Schneider to see if we can get he r rescheduled - Continue vitamins, working to fluid goals, and protein goals - Continue with mental health services, recommended/agree with her therapist about trying m editation for anxiety and sleep - Patient to have results of her cardiology work-up sent to us I spent 25 minutes speaking with the patient. Electronically signed on 08/30/2019 at 12:04 PM Kenan Norton MD. The visit took place via secure, synchronous audio and video technology with the provider v irtually located at the distant site of [facility]. The patient stated they were located at the [facility] site of [place] and were in the state of [place] at the time of the virtual visit. T he names of all persons participating in the virtual visit and their roles are: Maria De Jesus Hernández and Kenan Norton MD. I have spent a total of 30 minutes on this patient's care today. This time includes the vi rtual visit [id number] time with the patient as well as [...] | | 2019 | Visit | | [address] | | | | | | [place], [place] | | | | | | [address] | | | | | | [phone] | | | | | | | | +--------+ + + + + | 11/17/ | Video/TeleH | Pain Management | Florencio Lockett, | | | 2019 | ealth-Sched | | PhD [address] | | | | uled | | [place], [place] | | | | | | [address] | | | | | | [phone] | | | | | | | | +--------+ + + + + | 12/01/ | Video/TeleH | Pain Management | Florencio Lockett, | | | 2019 | ealth-Sched | | PhD [address] | | | | uled | | [place], [place] | | | | | | [address] | | | | | | [phone] | | | | | | | | +--------+ + + + + | 01/06/ | Office | Plastic Surgery | Kuldip Harrell MD | | | 2019 | Visit | | [address] | | | | | | [place], [place] | | | | | | [address] | | | | | | [phone] | | | | | | | [...] Chronic constipation Unspecified constipation | + + documented in this encounter"
--- OUTSIDE RECORDS SUMMARY | ~2019-11-06 | XMS | Encounter Summary ---
Demographics + + + | Address | [address] | | | [place] [address] | + + + | Home Phone [...] + + + | Author | [facility] | + + + | Organization | [facility] | + + + | Address | Unknown | + + + | Phone | Unavailable | + + + Support + + +---------+ + | Name | Relationship | Address | Phone | + + +---------+ + | Jeovanny Hernández | ECON | Unknown | | + + +---------+ + Care Team Providers + +------+ + | Care Supervisor Floor Assembly Name | Role | Phone | + +------+ + | Alisha Stovall PA-C | PCP | | + +------+ + Encounter Details +--------+ + + + + | Date | Type | Department | Care Team | Description | +--------+ + + + + | 08/14/ | Documentati | Digestive Health | Clinic, Surgery | | | 2018 | on | Center at [facility] [address] | | | | | | [address] [facility] | | | | | | for Health and | | | | | | Healing, [address] | | | | | | [place], [place] | | | | | | [address] | | | | | | [phone] | | | +--------+ + + + [...] | | 2019 | Visit | | [address] | | | | | | [place], [place] | | | | | | [address] | | | | | | [phone] | | | | | | | | +--------+ + + + + | 11/17/ | Video/TeleH | Pain Management | Florencio Lockett, | | | 2019 | ealth-Sched | | PhD [address] | | | | uled | | [place], [place] | | | | | | [address] | | | | | | [phone] | | | | | | | | +--------+ + + + + | 12/01/ | Video/TeleH | Pain Management | Florencio Lockett, | | | 2019 | ealth-Sched | | PhD [address] | | | | uled | | [place], [place] | | | | | | [address] | | | | | | [phone] | | | | | | | | +--------+ + + + + | 01/06/ | Office | Plastic Surgery | Kuldip Harrell MD | | | 2019 | Visit | | [address] | | | | | | [place], [place] | | | | | | [address] | | | | | | [phone] | | | | | | | | +--------+ + + + + documented as of this encounter Visit Diagnoses Not on filedocumented in this encounter"
--- OUTSIDE RECORDS SUMMARY | ~2019-11-06 | XMS | Encounter Summary ---
Demographics + + + | Address | [address] | | | [place] [address] | + + + | Home Phone [...] Team Providers + +------+ + | Care Guitar Teacher Name | Role | Phone | [...] | +--------+ + + + + | 11/06/ | Documentati | Endoscopic | Lab, Gi Procedure | Medical Records | | 2019 | on | Procedural Unit at | | Review | | | | [address] [address] | | | | | | [address] | | | | | | [address], | | | | | | 4th floor [place], | | | | | | [place] [address] | | | | | | [phone] | | | +--------+ + + + [...] [address] | | | | | | [place], [place] | | | | | | [address] | | | | | | [phone] | | | | | | | | +--------+ + + + + | 11/17/ | Video/TeleH | Pain Management | Florencio Lockett, | | | 2019 | ealth-Sched | | PhD [address] | | | | uled | | [place], [place] | | | | | | [address] | | | | | | [phone] | | | | | | | | +--------+ + + + + | 12/01/ | Video/TeleH | Pain Management | Florencio Lockett, | | | 2019 | ealth-Sched | | PhD [address] | | | | uled | | [place], [place] | | | | | | [address] | | | | | | [phone] | | | | | | | | +--------+ + + + + | 01/06/ | Office | Plastic Surgery | Kuldip Harrell MD | | | 2019 | Visit | | [address] | | | | | | [place], [place] | | | | | | [address] | | | | | | [phone] | | | | | | | | +--------+ + + + + documented as of this encounter Visit Diagnoses Not on filedocumented in this encounter"
--- OUTSIDE RECORDS SUMMARY | ~2019-11-06 | XMS | Encounter Summary ---
Demographics + + + | Address | [address] | | | [place] [address] | + + + | Home Phone | | + + + | Preferred Language | Unknown | + + + | Marital Status | | + + + | Moravian Affiliation | Unknown | + + + [...] [place], | | | | | [place] [address] | | + + + + + Care Team Providers + +------+ + | Care E Commerce Manager Name | Role | Phone | [...] | [address], [place] | [place] [address] | migrainosus | | | | [address] | [phone] | | | | | [phone] | | | +--------+ + + + [...] 0 | 07/28/19 | | | (MYCOSTATIN) [id number] | | | | 19 | 9 [...] [place] | | | | | | [address] | | | | | | [phone] | | | | | | | | +--------+---------+ + + + | 11/25/ | Office | Cardiology | Katheryn Hammonds DO | | | 2019 | Visit | | [address] | | | | | | [place] | | | | | | [address] | | | | | | | [...]
--- OUTSIDE RECORDS SUMMARY | ~2019-11-06 | XMS | Encounter Summary ---
Demographics + + + | Address | [address] | | | [place] [address] | + + + | Home Phone [...] Team Providers + +------+ + | Care Media Buyer Name | Role | Phone | + +------+ + | Alisha Stovall PA-C | PCP | | + +------+ + Encounter Details +--------+ + + + + | Date | Type | Department | Care Team | Description | +--------+ + + + + | 10/19/ | Telephone | Digestive Health | Kenan Norton, | | | 2019 | | Center at [facility] [address] | MD [address] | | | | | [address] [place] | [place], [place] | | | | | [facility] and | [address] | | | | | [place], [address] | [phone] | | | | | [place], [place] | | | | | | [address] | | | | | | [phone] | | | +--------+ + + + [...] [address] | | | | | | [place], [place] | | | | | | [address] | | | | | | [phone] | | | | | | | | +--------+ + + + + | 11/17/ | Video/TeleH | Pain Management | Florencio Lockett, | | | 2019 | ealth-Sched | | PhD [address] | | | | uled | | [place], [place] | | | | | | [address] | | | | | | [phone] | | | | | | | | +--------+ + + + + | 12/01/ | Video/TeleH | Pain Management | Florencio Lockett, | | | 2019 | ealth-Sched | | PhD [address] | | | | uled | | [place], [place] | | | | | | [address] | | | | | | [phone] | | | | | | | | +--------+ + + + + | 01/06/ | Office | Plastic Surgery | Kuldip Harrell MD | | | 2019 | Visit | | [address] | | | | | | [place], [place] | | | | | | [address] | | | | | | [phone] | | | | | | | | +--------+ + + + + documented as of this encounter Visit Diagnoses Not on filedocumented in this encounter"
--- OUTSIDE RECORDS SUMMARY | ~2019-11-06 | XMS | Encounter Summary ---
Demographics + + + | Address | [address] | | | [place] [address] | + + + | Home Phone | | + + + | Preferred Language | Unknown | + + + | Marital Status | | + + + | Quaker Affiliation | NRP | + + + [...] Team Providers + +------+ + | Care Conservation Educator Name | Role | Phone | + +------+ + | Alisha Stovall PA-C | PCP | | + +------+ + Encounter Details +--------+---------+ + + + | Date | Type | Department | Care Team | Description | +--------+---------+ + + + | 12/21/ | Office | Digestive Health | Jody Watson ACNP | S/P gastric bypass | | 2019 | Visit | Center at [facility] [address] | [address] | (Primary Dx); | | | | [address] | [place], | Anxiety; | | | | for Health and | [place] [address] | Dehydration; Morbid | | | | Healing, [address] | [phone] | obesity (HCC); | | | | [place], [place] | | Gastroesophageal | | | | [address] | | reflux disease, | | | | [phone] | | esophagitis presence | | | | | | not specified; | | | | | | Epigastric pain; | | | | | | Chest pain, | | | | | | unspecified type; | | | | | | Dumping syndrome; | | | | | | Decreased oral | | | | | | intake | +--------+---------+ + + + Social History [...] + + + | Blood Pressure | 124/72 | 12/21/2018 11:14 AM | | | | | PDT | | + + + + + | Pulse | 60 | 12/21/2018 11:14 AM | | | | | PDT | | + + + + + | Temperature | - | - | | + + + + + | Respiratory Rate | 16 | 12/21/2018 11:14 AM | | | | | PDT | | + + + + + | Oxygen Saturation | - | - | | + + + + + | Inhaled Oxygen | - | - | | | Concentration | | | | + + + + + | Weight | 140.6 kg (310 lb) | 12/21/2018 11:14 AM | | | | | PDT | | + + + + + | Height | 180.3 cm (5' 11") | 12/21/2018 11:14 AM | | | | | PDT | | + + + + + | Body Mass Index | 43.24 | 12/21/2018 11:14 AM | | | | | PDT [...] of this encounter Patient Instructions Patient Instructions Jody Watson ACNP - 12/21/2018 11:20 AM PDT1. EGD in December with Dr Nayana Rahman 2. Try ANY types of foods to get calories in to get more energy. Small bites and slowly thr oughout the day. 3. If foods do not get better, then we will have to talk about surgical feeding tube 4. Will be continue IVF for hydrationElectronically signed by DIEGO Plascencia at 12:56 PM PDT documented in this encounter Progress Notes Jody Watson ACNP - 12/21/2018 11:20 AM PDT BARIATRIC SURGERY FOLLOW-UP ID: Maria De Jesus Anna is a 28 y.o. patient who underwent a Andreia en y gastric bypass on 019 with . The patient is now 3 months post operative and recovering well. Interval hx: -Abdominal pain- EGD was done in hometown and reviewed by Dr. Norton with nothing concern, brionna, -UGI Dec 06 IV fluids PPI BID Subjective: Tearful, crying and upset that she had surgery Reports unable to tolerate any food and is only able to get 20oz of water per day. Has been getting IVF three times per week and this week has ran out and needs more IVF rx'ed from us today. States that strawberries and yi yogurt and pitachioes and lunchables are the only thing she eats "all day, every day" Reports being hungry all the time and cannot eat due to chest pain States that all foods cause "chest pain" and feeling like they "get stuck in throat" Reports GERD with scrambled eggs and salsa Reports she has tried multiple foods to see if anything goes down and anything with sugar o r fat gives her dumping syndrome with diarrhea Her PCP has put her on anxiety medications recently Reports fatigue and exhaustion due to lack of food intake Reports PPI BID and Levsin with no relief of symptoms Many food dislikes "Fish too cold, scallops too rough, shrimp too rough" "chicken noodle, n oodles expand" Intermittent vomiting Sees a mental health counselor: feeling bad on herself and failing classes at college, worr ied about having to take a break off school Meeting protein intake goal:no Meeting fluid intake goal:no Bariatric diet adherent: no GERD: yes Dysphagia: yes Physical activity: cannot due her fatigued Weight at time of surgery : 384--> 347-->310 (total 37 lb weight loss) BP 124/72 | Pulse 60 | Resp 16 | Ht 1.803 m (5' 11") | Wt 140.6 kg (310 lb) | BMI 43.2 4 kg/m | BSA 2.65 m History: Past Medical History: Diagnosis Date Asthma [...] Laparoscopic andreia-en-y gastric bypass with cholecystectomy 09/24/2018 [facility] Dr. Norton Social History Socioeconomic History Marital [...] file Gets together: Not on file Attends alevism service: Not on file Active member of club or organization: Not on file Attends meetings of clubs or organizations: Not on file Relationship status: Not on file Other Topics Concern Not on file Social History Narrative Family History Allergies Allergies Allergen Reactions Ibuprofen Hives Benzonatate Rash Cigarette Smoke Airway Constriction Depakote [Divalproex Sodium] Suicidal Ideation Doxycycline Rash Percocet [Oxycodone-Acetaminophen] Nausea and Vomiting [place]enweg Oil Hives and Nausea and Vomiting Seroquel [Quetiapine Fumarate] Suicidal Ideation Medications Current Outpatient Medications: acetaminophen 325 mg oral [...] mouth every seven days. For 12 w [facility] Indications: Vitamin D Deficiency (High Dose Therapy) [...] for constipation., Disp: 25 suppository, Rfl: 2 hydrOXYzine pamoate 25 mg oral capsule, Take 1 capsule by mouth every four hours as needed for itching. Indications: itching, Disp: 20 capsule, Rfl: 0 hyoscyamine 0.125 mg oral tablet, Take 1 tablet by mouth four times daily (before each meal and at bedtime)., Disp: 120 tablet, Rfl: 1 LORazepam 0.25 mg oral tablet, Take 0.5 mg by mouth every four hours as needed., Disp: , Rf l: metFORMIN 500 mg oral tablet, Take 1,000 [...] (immediate release) 5 mg oral tablet, Take 1 tablet by mouth every six hours as n eeded., Disp: 60 tablet, Rfl: 0 pantoprazole 20 mg oral tablet,delayed release (DR/EC), Take 1 tablet by mouth two times da korey. Indications: gastroesophageal reflux disease, Disp: 60 tablet, Rfl: 2 peg-electrolyte 236-22.74-6.74 -5.86 gram oral recon soln, Drink at least 6302-1780 ml of t his prep by mouth slowly over 1-2 days until you are having multiple bowel movements. You do not need to finish the whole thing. Indications: emptying of the bowel, Disp: 4000 mL, Rfl: 0 polyethylene glycol 17 gram/dose oral powder, Dissolve [...] for gas/bloating., Disp: 30 tablet, Rfl: 0 sucralfate 100 mg/mL oral suspension, Take 10 mL by mouth four times daily., Disp: 414 mL, Rfl: 1 topiramate 50 mg oral tablet, 50 mg two times daily. Indications: Migraine Prevention, Dis p: , Rfl: Bariatric Medications: Not taking vitamins consisently due to "chest pain" with swallowing. Takes and has not ordered other vitamins due to money issues. H2RB/PPI daily: yes Actigall/ ursodiol 300 BID: yes Narcotics: no ROS: All review of systems negative except what is noted in HPI GI Symptoms: Nausea: Multiple times per day Dysphagia: Multiple times per day Vomitin-8 times per week Heartburn: 6-8 times per week Abd Pain: 6-8 times per week Constipation: 2-5 times per week Diarrhea: 2-5 times per week Physical Exam General: Alert, oriented, NAD Respiratory: Breathing comfortably Cardiovascular: RRR Abdomen: soft, non tender, non distended, lap incisions sites well healed. Extremities: warm, well perfused, no edema noted EGD report 11/16/2018 Assessment/Plan: #dysphagia and GERD s/p Andreia en y gastric bypass #epigastric pain - pt very inconsistent in history reporting and symptom reporting 2 hour patient visit with long discussion with both myself and Dr. Norton -EGD done--see report above-discussed with Dr. Norton and no abnormalities noted on report -EGD also scheduled with [facility] in December with Dr. Rahman--> think about adding manometry later on -H Pylori test today -carafate -advised to eat any types of food that work for her such as soft foods: soft meats, veggies , apple sauce, stews to get calories in with a log of food intake per day. She reports the o nly calories she gets in 1 yogurt per day and 20oz water. Dr. Norton spent 30+ minutes in this appointment with me re: discussion of her symptoms -If nothing else works can consider dubhoff tube or surgical feeding tube for nutrition #low PO intake -has been getting three times weekly IVF as she is only drinking 20oz water -will continue MIVF at home for hydration -labs today #dumping syndrome Reports being very sensitive to all foods with fat or sugar -avoid high fat and sugar intake -continue with protein goal of 60-80g/day -continue with fluid intake goal of at least 64oz/day -Discussed diet choices, healthy foods, ways to increase protein and iron -Discussed daily exercise and types of exercises # Risk for B12 deficiency, calcium malabsorption, protein malabsorption, vitamin d deficiie ncs and iron deficiencies -Labs today -continue with vitamin supplements as directed # Gastric Ulcer Prevention -continue acid rail car repairer (omeprazole) for first 3 months for prevention of ulcers and GERD. Then wean off over 2 wks. Advised to take this medication even if not experiencing symptoms . See your primary care provider for adjusting any other medications. Call if any abdominal pain, n/v/d or other issues. Pt agrees to plan and will call and/or send Myreks message if any issues. Start time 1120, end time 1320. I spent a total of 120 minutes face to face with this elliott ent. Over 50% of visit was in counseling. Extended visit: 90 mins Jody Watson, MSN, AG-ACNP, HOSIERY OPERATOR Bariatric Surgery Nurse Practitioner [facility] | [address] | [place], [place] | [address] | documented in this enco unter Plan of Treatment +--------+ + + + + | Date | Type | Specialty | Care Team | Description | +--------+ + + + + | 11/13/ | Office | Gastroenterology | Cassidy Schneider, | | | 2019 | Visit | | MD [address] | | | | | | [place], [place] | | | | | | [address] | | | | | | [phone] | | | | | | | | +--------+ + + + + | 11/17/ | Video/TeleH | Pain Management | Florencio Lockett, | | | 2019 | ealth-Sched | | PhD [address] | | | | uled | | [place], [place] | | | | | | [address] | | | | | | [phone] | | | | | | | | +--------+ + + + + | 12/01/ | Video/TeleH | Pain Management | Florencio Lockett, | | | 2019 | ealth-Sched | | PhD [address] | | | | uled | | [place], [place] | | | | | | [address] | | | | | | [phone] | | | | | | | | +--------+ + + + + | 01/06/ | Office | Plastic Surgery | Kuldip Harrell MD | | | 2020 | Visit | | [address] | | | | | | [place], [place] | | | | | | [address] | | | | | | [phone] | | | | | | | [...] | | | PDT | obesity ([facility]) | results section. | | | | [...] | CBC (HEMOGRAM) ONLY | Routin | 12/21/2018 | Anxiety | Results for this | | | e | 1:51 PM | Dehydration Morbid | procedure are in the | | | | PDT | obesity ([facility]) | results section. | | | | [...] | | | PDT | obesity ([facility]) | results section. | | | | [...] | | | PDT | obesity ([facility]) | results section. | | | | [...] (NA,K,CL,CO2,BUN,CRE | | PDT | obesity ([facility]) | results section. | | AT,GLUC,CA,AST,ALT,B | [...] | | | PDT | obesity ([facility]) | results section. | | | | [...] | | | PDT | obesity ([facility]) | results section. | | | | [...] | | | PDT | obesity ([facility]) | results section. | | | | [...] | | | PDT | obesity ([facility]) | results section. | | | | [...] | | | PDT | obesity ([facility]) | results section. | | | | [...] | | | PDT | obesity ([facility]) | results section. | | | | [...] PTH - [facility] | | | | [facility] [address] | | | | | | [phone].aruplab. | | | | | | Josué [...] [facility] | [address] | [place], [place] | | | UNIV PTH - INT[facility] | | [address] | | + + + + + CBC (HEMOGRAM) ONLY (12/21/2018 1:51 PM PDT) + + + + + + | Component | Value | Ref Range | Performed | Pathologist | | | | | At | Signature | + + + + + + | WHITE CELL | 7.99 | 3.50 - 10.80 | [facility] | | | COUNT | | K/cu mm | LABORATORY | | | | | | SERVICES, | | | | | | [facility] + | | | | | | [facility]ALING | | + + + + + + | RED CELL | 4.90 | 4.00 - 5.20 | [facility] | | | COUNT | | M/cu mm | LABORATORY | | | | | | SERVICES, | | | | | | [facility] | | | [facility] + | | | | | | HEALING | | + + + + + + | HEMOGLOBIN | 13.6 | 12.0 - 16.0 | [facility] | [...] + + + + | MCV | 85.5 | 80.0 - 100.0 fL | [facility] | | | | | | LABORATORY | | | | | | SERVICES, | | | | | | [facility] | | | [facility] + | | | | | | HEALING | | + + + + + + | MCHC | 32.5 | 32.0 - 36.0 | [facility] | | | | | g/dL | LABORATORY | | | | | | SERVICES, | | | | | | [facility] | | [facility] + | | | | | | HEALING | | + + + + + + | RDW SD | 49.7 (H) | 35.1 - 46.3 fL | [facility] | | | | | | LABORATORY | | | | | | SERVICES, | | | | | | [facility] | [facility] | | [facility] + | | | | | | HEALING | | + + + + + + | PLATELET | 180 | 150 - 400 K/cu | [facility] | | | COUNT | | mm | LABORATORY | | | | | | SERVICES, | | | | | | [facility] | | [facility] + | | | | | | HEALING | | + + + + + + | MPV | 12.6 (H) | 9.7 - 12.3 fL | [...] + + | [facility] | [address] | [place] [address] | | | SERVICES, [facility] FOR | | | | | HEALTH [...] + | [facility] | [address] | [place] [address] | | | [facility] | | | | | [...] LABORATORY | | | | | | [facility], | | | | | | [...] [facility] | [address] | [place] [address] | | | SERVICES, CORE | PARK [...] | [facility] | [address] | [place] [address] | | | ADONAY SMITH | SAMMI [...] (L)Comment: | 70 - 180 nmol/L | [facility] | | | WHOLE | INTERPRETIVE | [...] | | | | | determined by [facility] | | | | | | Laboratories. See | | | | | | Compliance Statement B: | | | | | | [employer].Perceptis/CSPerformed | | | | | | by [employer],[address] | | | | | | [place] [place] [facility] [place] | | | | | | [address] | | | | | | [phone].[employer]. | | | | | | comJosué [...] [facility] | [address] | [place], [place] | | | UNIV PTH - INTFC | | [address] | | + + + + + [...] | | | | | determined by [employer] | | | | | | [employer]. See | | | | | | Compliance Statement B: | | | | | | [employer].Perceptis/CSPerformed | | | | | | by Fangcang,[address] | | | | | | [facility] | | | | | | [address] | | | | | | [phone].[employer]. | | | | | | [facility] hospitalJos[facility] MD, | | | | | [...] [facility] | [address] | [place], [place] | | | UN[facility] | | [address] | | + + + + + [...] [facility] | [address] | [place] [address] | | | SERVICES, CORE | SAMMI [...] [facility] | [address] | [place] [address] | | | SERVICES, CORE | PARK [...] + | [facility] | [address] | [place] [address] | | | SERVICES, SPECIAL | PARK [...] | [facility] | | considered for monitoring termite inspector glycemic control in patients with: | LABORATORY [...] [facility] | [address] | [place] [address] | | | SERVICES, SPECIAL | PARK [...] + | [facility] | [address] | [place] [address] | | | SERVICES, CORE | SAMMI [...] | | | LABORATORY | | | [facility] | | | SERVICES, | | | [...] MDRD equation recommended by the National | [facility] | | Kidney Disease Education Program. Estimated [...] + + + | [facility] | [address] | [place] [address] | | | [facility] | | | | | HEALTH + HEALING | | | | + + + + + documented in this encounter Visit Diagnoses + + | Diagnosis | + + | S/P gastric bypass - Primary Bariatric surgery status | + + | Anxiety Anxiety state, unspecified | + + | Dehydration | + + | Morbid obesity (HCC) Morbid obesity | + + | Gastroesophageal reflux disease, esophagitis presence not specified | + + | Epigastric pain Abdominal pain, epigastric | + + | Chest pain, unspecified type | + + | Dumping syndrome Postgastric surgery syndromes | + + | Decreased oral intake Other symptoms concerning nutrition, metabolism, and | | development | + + documented in this encounter
--- OUTSIDE RECORDS SUMMARY | ~2019-11-06 | XMS | Encounter Summary ---
Demographics + + + | Address | [address] | | | [place] [address] | + + + | Home Phone [...] Team Providers + +------+ + | Care Helmet Hat Sweatband Puncher Name | Role | Phone | + +------+ + | Alisha Stovall PA-C | PCP | | + +------+ + Encounter Details +--------+--------+ + + + | Date | Type | Department | Care Team | Description | +--------+--------+ + + + | 10/04/ | Refill | Digestive Health | Kenan Norton, | | | 2019 | | Center at [facility] [address] | MD [address] | | | | | [address] [place] | [facility] [place] | | | | | for Health and | [address] | | | | | Healing, [address] | [phone] | | | | | [place], [place] | | | | | | [address] | | | | | | [phone] | | | +--------+--------+ + + + [...] Visit | | MD [address] | | | | | | [place], [place] | | | | | | [address] | | | | | | [phone] | | | | | | | | +--------+ + + + + | 11/17/ | Video/TeleH | Pain Management | Florencio Lockett, | | | 2019 | ealth-Sched | | PhD [address] | | | | uled | | [place], [place] | | | | | | [address] | | | | | | [phone] | | | | | | | | +--------+ + + + + | 12/01/ | Video/TeleH | Pain Management | Florencio Lockett, | | | 2019 | ealth-Sched | | PhD [address] | | | | uled | | [place], [place] | | | | | | [address] | | | | | | [phone] | | | | | | | | +--------+ + + + + | 01/06/ | Office | Plastic Surgery | Kuldip Harrell MD | | | 2019 | Visit | | [address] | | | | | | [place], [place] | | | | | | [address] | | | | | | [phone] | | | | | | | | +--------+ + + + + documented as of this encounter Visit Diagnoses Not on filedocumented in this encounter"
--- OUTSIDE RECORDS SUMMARY | ~2019-11-06 | XMS | Encounter Summary ---
Demographics + + + | Address | [address] | | | [place] [address] | + + + | Home Phone [...] Team Providers + +------+ + | Care Administrative Resources Associate Name | Role | Phone | [...] | | | | | dysmotility | [place], [place] | [facility] [place] | | | | | Procedures | [address] | [address] | | | | | CONSULT TO | Phone: | Phone: | | | | | GASTROENTERO | [phone] | [phone] | | | | | LOGY | Fax: | Fax: | | | | | | [phone] | [phone] | + +--------+ + + + + [...] | | [address] | [place], [place] | | | | | for Health and | [address] | | | | | Healing, [address] | [phone] | | | | | [place], [place] | | | | | | [address] | | | | | | [phone] | | | +--------+--------+ + + + [...] [address] | | | | | | [place], [place] | | | | | | [address] | | | | | | [phone] | | | | | | | | +--------+ + + + + | 11/17/ | Video/TeleH | Pain Management | Florencio Lockett, | | | 2019 | ealth-Sched | | PhD [address] | | | | uled | | [place], [place] | | | | | | [address] | | | | | | [phone] | | | | | | | | +--------+ + + + + | 12/01/ | Video/TeleH | Pain Management | Florencio Lockett, | | | 2019 | ealth-Sched | | PhD [address] | | | | uled | | [place], [place] | | | | | | [address] | | | | | | [phone] | | | | | | | | +--------+ + + + + | 01/06/ | Office | Plastic Surgery | Kuldip Harrell MD | | | 2019 | Visit | | [address] | | | | | | [place], [place] | | | | | | [address] | | | | | | [phone] | | | | | | | | +--------+ + + + + documented as of this encounter Visit Diagnoses + + | Diagnosis | + + | S/P gastric bypass - Primary Bariatric surgery status | + + | Esophageal dysmotility Dyskinesia of esophagus | + + documented in this encounter"
--- OUTSIDE RECORDS SUMMARY | ~2019-11-06 | XMS | Encounter Summary ---
Demographics + + + | Address | [address] | | | [place] [address] | + + + | Home Phone [...] Team Providers + +------+ + | Care Grab Hooker Name | Role | Phone | + [...] Pharmacy | | | | | | [address] | | | | | | [place], [place] | | | | | | [address] | | | | | | [phone] | | | +--------+ + + + [...] [address] | | | | | | [place], [place] | | | | | | [address] | | | | | | [phone] | | | | | | | | +--------+ + + + + | 11/17/ | Video/TeleH | Pain Management | Florencio Lockett, | | | 2019 | ealth-Sched | | PhD [address] | | | | uled | | [place], [place] | | | | | | [address] | | | | | | [phone] | | | | | | | | +--------+ + + + + | 12/01/ | Video/TeleH | Pain Management | Florencio Lockett G, | | | 2019 | ealth-Sched | | PhD [address] | | | | uled | | [facility] [place] | | | | | | [address] | | | | | | [phone] | | | | | | | | +--------+ + + + + | 01/06/ | Office | Plastic Surgery | Kuldip Harrell MD | | | 2019 | Visit | | [address] | | | | | | [place], [place] | | | | | | [address] | | | | | | [phone] | | | | | | | | +--------+ + + + + documented as of this encounter Visit Diagnoses Not on filedocumented in this encounter"
--- OUTSIDE RECORDS SUMMARY | ~2019-11-06 | XMS | Encounter Summary ---
Demographics + + + | Address | [address] | | | [place] [address] | + + + | Home Phone | | + + + | Preferred Language | Unknown | + + + | Marital Status | | + + + | Yazidi Affiliation | Unknown | + + + | Race | Unknown | + + + | Ethnic Group | Unknown | + + + Author + + + | Author | [facility] | | | and [place] | + + + | Organization | [facility] | | [...] [place], | | | | | [place] [address] | | + + + + + Care Team Providers + +------+ + | Care Roller Printing Supervisor Name | Role | Phone | + +------+ + | Alisha Stovall | PCP | | | PA-C | | | + +------+ + Reason for Visit +--------+--------+ + | Reason | Onset | Comments | | | Date | | +--------+--------+ + | Other | 09/17/ | SCREENED FOR APPT | | | 2019 | | +--------+--------+ + Encounter Details +--------+ + + + + | Date | Type | Department | Care Team | Description | +--------+ + + + + | 09/17/ | Telephone | [facility] | Fern Love | Greg (SCREENED FOR | | 2019 | | CARDIOLOGY LASHAY Rod, Painter Rough | APPT ) | | | | [address] | | | | | | [place], [place] | | | | | | [address] | | | | | | [phone] | | | +--------+ + + + [...] this encounter Miscellaneous Notes Telephone Encounter - Fern Love, Painter Rough - 09/18/2019 3:50 PM Kim barfield has confirmed their appointment and has been screened for COVID 19. Patient has received and understood directions to our office. Patient has been informed of our no visitor and masking policy. Proactive screening for upcoming office visit to help ensure the clinic environment remains a safe place to receive care. 1. Patient reports the following symptoms and/or exposure on the epidemic risk screen: ? Fever greater than 100.4 F?: no ? New onset (within the last 14 days) cough?: no ? New onset (within the last 14 days) shortness of breath?: no ? New onset (within the last 14 days) loss of taste or smell?: NO ? Close contact with someone who has been diagnosed with COVID-19?: no The patient reported no symptoms or exposure and proceeded with proactive screening process . 2. Have you or someone you are in close contact with been tested for COVID-19?: No. Okay to see patient in clinic per scheduling guidelines, proceeded to question #3 3. Does the patient have MyChart Access?: Yes. Encouraged use of the E-Check In feature. 4. Is the patient allowed a visitor per policy?: No. Please be aware that you will be asked these same questions when you arrive at the clinic. If you have any changes in your symptoms between now and your visit, please call us so we c an get you scheduled for an alternative visit before you arrive at the clinic. For your safety and the safety of others, we ask that if you are being seen in person at on e of our clinics you arrive wearing a mask. Hand washing is gillespie to keeping our clinic a safe place to receive care. While you are in ou r clinics you will be asked to perform hand washing at different intervals throughout your v isit. While you are in the clinic 6ft distancing is required, please ensure you look for the 6ft floor markers and adhere to distancing. Visitor restrictions remain in place following CDC guidance. Only minimal exceptions will be allowed. If you arrive with a visitor they may be asked to wait in the car during your v isit. [facility] umented in this encounter Plan of Treatment +--------+---------+ + + + | Date | Type | Specialty | Care Team | Description | +--------+---------+ + + + | 11/18/ | Office | Neurology | Shirley Murdock NP | | 2019 | Visit | | [address] | | | | | | [place] | | | | | | [address] | | | | | | [phone] | | | | | | | | +--------+---------+ + + + | 11/25/ | Office | Cardiology | Katheryn Hammonds DO | | | 2019 | Visit | | [address] | | | | | | [place] | | | | | | [address] | | | | | | | | +--------+---------+ + + + documented as of this encounter Visit Diagnoses Not on filedocumented in this encounter"
--- OUTSIDE RECORDS SUMMARY | ~2019-11-06 | XMS | Encounter Summary ---
Demographics + + + | Address | [address] | | | [place] [address] | + + + | Home Phone [...] Providers + +------+ + | Care Fleet Service Clerk Name | Role | Phone | + +------+ + | Alisha Stovall PA-C | PCP | | + +------+ + Encounter Details +--------+ + + + + | Date | Type | Department | Care Team | Description | +--------+ + + + + | 09/11/ | Abstract | Digestive Health | Kenan Norton, | | | 2019 | | Center at [facility] [address] | MD [address] | | | | | [address] [place] | [facility] [place] | | | | | for Health and | [address] | | | | | [address], [address] | [phone] | | | | | [place], [place] | | | | | | [address] | | | | | | [phone] | | | +--------+ + + + [...] | | | | | | [place], [place] | | | | | | [address] | | | | | | [phone] | | | | | | | | +--------+ + + + + | 11/17/ | Video/TeleH | Pain Management | Florencio Lockett, | | | 2019 | ealth-Sched | | PhD [address] | | | | uled | | [place], [place] | | | | | | [address] | | | | | | [phone] | | | | | | | | +--------+ + + + + | 12/01/ | Video/TeleH | Pain Management | Florencio Lockett, | | | 2019 | ealth-Sched | | PhD [address] | | | | uled | | [place], [place] | | | | | | [address] | | | | | | [phone] | | | | | | | | +--------+ + + + + | 01/06/ | Office | Plastic Surgery | Kuldip Harrell MD | | | 2019 | Visit | | [address] | | | | | | [place], [place] | | | | | | [address] | | | | | | [phone] | | | | | | | | +--------+ + + + + documented as of this encounter Visit Diagnoses Not on filedocumented in this encounter"
--- OUTSIDE RECORDS SUMMARY | ~2019-11-06 | XMS | Encounter Summary ---
Demographics + + + | Address | [address] | | | [place] [address] | + + + | Home Phone [...] Providers + +------+ + | Care Manager Company Name | Role | Phone | + +------+ + | Alisha Stovall PA-C | PCP | | + +------+ + Encounter Details +--------+ + + + + | Date | Type | Department | Care Team | Description | +--------+ + + + + | 02/09/ | Abstract | Cardiology | Sarah Barba | | | 2018 | | Preventive at [facility] | SHANICE Villafuerte [address] | | | | | [address] | [address] [place], | | | | | [facility] | [place] [address] | | | | | and [address], | [phone] | | | | | [address] | | | | | | [place], [place] | | | | | | [address] | | | | | | [phone] | | | +--------+ + + + [...] [address] | | | | | | [place], [place] | | | | | | [address] | | | | | | [phone] | | | | | | | | +--------+ + + + + | 11/17/ | Video/TeleH | Pain Management | Florencio Lockett, | | | 2019 | ealth-Sched | | PhD [address] | | | | uled | | [place], [place] | | | | | | [address] | | | | | | [phone] | | | | | | | | +--------+ + + + + | 12/01/ | Video/TeleH | Pain Management | Florencio Lockett G, | | | 2019 | ealth-Sched | | PhD [address] | | | | uled | | [place], [place] | | | | | | [address] | | | | | | [phone] | | | | | | | | +--------+ + + + + | 01/06/ | Office | Plastic Surgery | Kuldip Harrell MD | | | 2019 | Visit | | [address] | | | | | | [place], [place] | | | | | | [address] | | | | | | [phone] | | | | | | | | +--------+ + + + + documented as of this encounter Visit Diagnoses Not on filedocumented in this encounter"
--- OUTSIDE RECORDS SUMMARY | ~2019-11-06 | XMS | Encounter Summary ---
Demographics + + + | Address | [address] | | | [place] [address] | + + + | Home Phone [...] Providers + +------+ + | Care Assistant Women'S Soccer Coach Name | Role | Phone | + +------+ + | Alisha Stovall PA-C | PCP | | + +------+ + Encounter Details +--------+ + + + + | Date | Type | Department | Care Team | Description | +--------+ + + + + | 02/09/ | Abstract | Cardiology | Sarah Barba | | | 2018 | | Preventive at [facility] | SHANICE Villafuerte [address] | | | | | [address] | [address] [place], | | | | | [facility] | [place] [address] | | | | | and [address], | [phone] | | | | | [address] | | | | | | [place], [place] | | | | | | [address] | | | | | | [phone] | | | +--------+ + + + [...] [address] | | | | | | [place], [place] | | | | | | [address] | | | | | | [phone] | | | | | | | | +--------+ + + + + | 11/17/ | Video/TeleH | Pain Management | Florencio Lockett, | | | 2019 | ealth-Sched | | PhD [address] | | | | uled | | [place], [place] | | | | | | [address] | | | | | | [phone] | | | | | | | | +--------+ + + + + | 12/01/ | Video/TeleH | Pain Management | Florencio Lockett G, | | | 2019 | ealth-Sched | | PhD [address] | | | | uled | | [place], [place] | | | | | | [address] | | | | | | [phone] | | | | | | | | +--------+ + + + + | 01/06/ | Office | Plastic Surgery | Kuldip Harrell MD | | | 2019 | Visit | | [address] | | | | | | [place], [place] | | | | | | [address] | | | | | | [phone] | | | | | | | | +--------+ + + + + documented as of this encounter Visit Diagnoses Not on filedocumented in this encounter"
--- OUTSIDE RECORDS SUMMARY | ~2019-11-06 | XMS | Encounter Summary ---
Demographics + + + | Address | [address] | | | [place] [address] | + + + | Home Phone [...] Providers + +------+ + | Care Wood Block Artist Name | Role | Phone | + [...] | | | | | ([facility]) | Martin Shea | [address] | | | | | Abnormal ECG | Rd | [place], [place] | | | | | | [place], [place] | [address] | | | | | Hypertension | [address] | Phone: | | | | | , | Phone: | [phone] | | | | | unspecified | [phone] | Fax: | | | | | type | Fax: | [phone] | | | | | Procedures | [phone] | | | | | | CONSULT [...] | | 2017 | | Center at [facility] [address] | [address] | | | | | [address] [facility] | Monse Hernandez [place], | | | | | for Health and | [place] [address] | | | | | [facility] [address] | [phone] | | | | | [place], [place] | | | | | | [address] | | | | | | [phone] | | | +--------+ + + + [...] Ave | | | | | | [place], [place] | | | | | | [address] | | | | | | [phone] | | | | | | | | +--------+ + + + + | 11/17/ | Video/TeleH | Pain Management | Florencio Lockett, | | | 2019 | ealth-Sched | | PhD [address] | | | | uled | | [place], [place] | | | | | | [address] | | | | | | [phone] | | | | | | | | +--------+ + + + + | 12/01/ | Video/TeleH | Pain Management | Florencio Lockett, | | | 2019 | ealth-Sched | | PhD [address] | | | | uled | | [place], [place] | | | | | | [address] | | | | | | [phone] | | | | | | | | +--------+ + + + + | 01/06/ | Office | Plastic Surgery | Kuldip Harrell MD | | | 2019 | Visit | | [address] | | | | | | [place], [place] | | | | | | [address] | | | | | | [phone] | | | | | | | [...]
--- OUTSIDE RECORDS SUMMARY | ~2019-11-06 | XMS | Encounter Summary ---
Demographics + + + | Address | [address] | | | [place] [address] | + + + | Home Phone [...] Providers + +------+ + | Care Ground Equipment Mechanic Name | Role | Phone | [...] | | | | geal reflux | [facility] | [place] for | | | | | disease, | Rd | Health and | | | | | esophagitis | [facility] [place] | Healing, | | | | | presence not | [address] | [address] | | | | | specified | Phone: | [place], [place] | | | | | Procedures | [phone] | [address] | | | | | CONSULT TO | Fax: | Phone: | | | | | GI PROCEDURE | [phone] | [phone] | | | | | UNIT: | [...] | | | | [address] [place] | | | | | | | ESOPHAGEAL | | | | | | | MOTILITY | | | | | | | STUDY | | | | | | | W/INTERP AND | | | | | | | REPORT [place] | | | | | | | G-ESOPH | | | | | | | REFLX TST | | | | | | | W/ELECTROD | | | +--------+--------+ + + + + Encounter Details +--------+ + + + + | Date | Type | Department | Care Team | Description | +--------+ + + + + | 01/11/ | Hospital | [facility] | Nurse, Gip [address] | | | 2018 | Encounter | [facility] [address] | [facility] | | | | | [address] [facility] for | Road [place], [place] | | | | | Health and Healing, | [address] | | | | | [address] | | | | | | [place], [place] | | | | | | [address] | | | | | | [phone] | | | +--------+ + + + [...] +--------+ + + + + | 11/13/ Office | Gastroenterology | Cassidy Schneider, | | | 2020 | Visit | | [address] | | | | | | [place], [place] | | | | | | [address] | | | | | | [phone] | | | | | | | | +--------+ + + + + | 11/17/ | Video/TeleH | Pain Management | Florencio Lockett, | | | 2019 | ealth-Sched | | PhD [address] | | | | uled | | [place], [place] | | | | | | [address] | | | | | | [phone] | | | | | | | | +--------+ + + + + | 12/01/ | Video/TeleH | Pain Management | Florencio Lockett, | | | 2019 | ealth-Sched | | PhD [address] | | | | uled | | [place], [place] | | | | | | [address] | | | | | | [phone] | | | | | | | | +--------+ + + + + | 01/06/ | Office | Plastic Surgery | Kuldip Harrell MD | | 2019 | Visit | | [address] | | | | | | [place], [place] | | | | | | [address] | | | | | | [phone] | | | | | | | | +--------+ + + + + documented as of this encounter Procedures + +--------+ + + + | Procedure Name | Priori | Date/Time | Associated Diagnosis | Comments | | | ty | | | | + +--------+ + + + | ESOPHAGEAL MANOMETRY | Routin | 01/11/2018 | Gastroesophageal | Results for this | | | e | 3:15 PM | reflux disease, | procedure are in the | | | | PDT | esophagitis presence | results section. | | | | | not specified | | + +--------+ + + + documented in this encounter Results ESOPHAGEAL MANOMETRY (01/11/2018 3:15 PM PDT) + + | Specimen | + + | | + + + +- + | Narrative | Performed At | + +- + | MRN: | [facility] | | [id number] Date: 01/11/2018Patient Name: Maria De Jesus Gonzalez #: | ENDOSCOPY | | [id number] of : 1990CSN: [id number] Type: | | | OutpatientRoom: Motility RoomProcedure: Ambulatory | | | esophageal pH and impedance monitoringIndications: | | | Heartburn, Suspected esophageal reflux, Follow-up of | | | esophageal refluxProviders: RUBEN STUBBS, | | | (Doctor), DONNELL DRAPER, RN (Nurse)Referring MD: JOE | | | NELSY HILLPRequesting Provider: Medicines: Lidocaine | | | sprayComplications: [...]
--- OUTSIDE RECORDS SUMMARY | ~2019-11-06 | XMS | Encounter Summary ---
Demographics + + + | Address | [address] | | | [place] [address] | + + + | Home Phone [...] Team Providers + +------+ + | Care Offline Editor Name | Role | Phone | + +------+ + | Alisha Stovall PA-C | PCP | | + +------+ + Reason for Referral Consultation (Routine) + +---------+ + + + [...] | | | | CONSULT TO | [place], [place] | [place], [place] | | | | | PAIN | [address] | [address] | | | | | MANAGEMENT | Phone: | Phone: | | | | | [place] | [phone] | [phone] | | | | | BIOFEEDBACK | Fax: | Fax: | | | | | TRAINING,ANY | [phone] | [phone] | | | | | MODALITY | | | + +---------+ + + + + Encounter Details +--------+ + + + + | Date | Type | Department | Care Team | Description | +--------+ + + + + | 05/15/ | Airset Molder | Digestive Health | Kenan Norton, | S/P gastric bypass | | 2020 | | Center at [facility] [address] | MD [address] | (Primary Dx) | | | | [address] | [facility] [place] | | | | | for Health and | [address] | | | | | Healing, [address] | [phone] | | | | | [place], [place] | | | | | | [address] | | | | | | [phone] | | | +--------+ + + + [...] [address] | | | | | | [place], [place] | | | | | | [address] | | | | | | [phone] | | | | | | | | +--------+ + + + + | 11/17/ | Video/TeleH | Pain Management | Florencio Lockett, | | | 2019 | ealth-Sched | | PhD [address] | | | | uled | | [place], [place] | | | | | | [address] | | | | | | [phone] | | | | | | | | +--------+ + + + + | 12/01/ | Video/TeleH | Pain Management | Florencio Lockett, | | | 2019 | ealth-Sched | | PhD [address] | | | | uled | | [place], [place] | | | | | | [address] | | | | | | [phone] | | | | | | | | +--------+ + + + + | 01/06/ | Office | Plastic Surgery | Kuldip Harrell MD | | | 2019 | Visit | | [address] | | | | | | [place], [place] | | | | | | [address] | | | | | | [phone] | | | | | | | | +--------+ + + + + documented as of this encounter Visit Diagnoses + + | Diagnosis | + + | S/P gastric bypass - Primary Bariatric surgery status | + + documented in this encounter"
--- OUTSIDE RECORDS SUMMARY | ~2019-11-06 | XMS | Encounter Summary ---
Demographics + + + | Address | [address] | | | [place] [address] | + + + | Home Phone [...] Providers + +------+ + | Care Business Management Consultant Name | Role | Phone | [...] | | | | geal reflux | [facility] | [place] for | | | | | disease, | Rd | Health and | | | | | esophagitis | [facility] [place] | Healing, | | | | | presence not | [address] | [address] | | | | | specified | Phone: | [place], [place] | | | | | Procedures | [phone] | [address] | | | | | CONSULT TO | Fax: | Phone: | | | | | GI PROCEDURE | [phone] | [phone] | | | | | UNIT: | [...] | | | | [address] [place] | | | | | | | ESOPHAGEAL | | | | | | | MOTILITY | | | | | | | STUDY | | | | | | | W/INTERP AND | | | | | | | REPORT [place] | | | | | | | G-ESOPH | | | | | | | REFLX TST | | | | | | | W/ELECTROD | | | +--------+--------+ + + + + Encounter Details +--------+ + + + + | Date | Type | Department | Care Team | Description | +--------+ + + + + | 01/12/ | Hospital | [facility] | Nurse, Gip [address] | | | 2018 | Encounter | [facility] [address] [facility] | | | | | [address] [facility] for | Road [place], [place] | | | | | Health and Healing, | [address] | | | | | [address] | | | | | | [place], [place] | | | | | | [address] | | | | | | [phone] | | | +--------+ + + + [...] [address] | | | | | | [place], [place] | | | | | | [address] | | | | | | [phone] | | | | | | | | +--------+ + + + + | 11/17/ | Video/TeleH | Pain Management | Florencio Lockett, | | | 2019 | ealth-Sched | | PhD [address] | | | | uled | | [place], [place] | | | | | | [address] | | | | | | [phone] | | | | | | | | +--------+ + + + + | 12/01/ | Video/TeleH | Pain Management | Florencio Lockett, | | | 2019 | ealth-Sched | | PhD [address] | | | | uled | | [place], [place] | | | | | | [address] | | | | | | [phone] | | | | | | | | +--------+ + + + + | 01/06/ | Office | Plastic Surgery | Kuldip Harrell MD | | 2019 | Visit | | [address] | | | | | | [place], [place] | | | | | | [address] | | | | | | [phone] | | | | | | | [...] + | MRN: | [facility] | | [id number] Date: 01/12/2018Patient Name: Maria De Jesus Gonzalez #: | ENDOSCOPY | | [id number] of : 1990CSN: [id number] Type: | | | [facility] RoomProcedure: Ambulatory | | | esophageal pH and impedance monitoringIndications: | | | Heartburn, Suspected esophageal reflux, Follow-up of | | | esophageal refluxProviders: RUBEN STUBBS, | | | (Doctor), DONNELL DRAPER RN (Nurse)Referring MD: JOE | | | LIZ ACNPRequesting Provider: Medicines: Lidocaine | | | [...]
--- OUTSIDE RECORDS SUMMARY | ~2019-11-06 | XMS | Encounter Summary ---
Demographics + + + | Address | [address] | | | [place] [address] | + + + | Home Phone | | + + + | Preferred Language | Unknown | + + + | Marital Status | | + + + | Pentecostal Affiliation | NRP | + + + [...] Team Providers + +------+ + | Care Controller Operations And Hr Manager Name | Role | Phone | [...] 2019 | | Center at [facility] [address] | [address] | | | | | [address] [place] | [place] | | | | | for [facility] and | [address] | | | | | [facility] 2 | [phone] | | | | | [place], [place] | | | | | | [address] | | | | | | | [...] [address] | | | | | | [place], [place] | | | | | | [address] | | | | | | [phone] | | | | | | | | +--------+ + + + + | 11/17/ | Video/TeleH | Pain Management | Florencio Lockett, | | | 2019 | ealth-Sched | | PhD [address] | | | | uled | | [place], [place] | | | | | | [address] | | | | | | [phone] | | | | | | | | +--------+ + + + + | 12/01/ | Video/TeleH | Pain Management | Florencio Lockett, | | | 2019 | ealth-Sched | | PhD [address] | | | | uled | | [place], [place] | | | | | | [address] | | | | | | [phone] | | | | | | | | +--------+ + + + + | 01/06/ | Office | Plastic Surgery | Kuldip Harrell MD | | | 2019 | Visit | | [address] | | | | | | [place], [place] | | | | | | [address] | | | | | | [phone] | | | | | | | | +--------+ + + + + documented as of this encounter Visit Diagnoses Not on filedocumented in this encounter"
--- OUTSIDE RECORDS SUMMARY | ~2019-11-06 | XMS | Encounter Summary ---
Demographics + + + | Address | [address] | | | [place] [address] | + + + | Home Phone [...] Team Providers + +------+ + | Care Network Operations Center Technician Name | Role | Phone | [...] [address] | | | | | | [place], [place] | | | | | | [address] | | | | | | [phone] | | | | | | | | +--------+ + + + + | 11/17/ | Video/TeleH | Pain Management | Florencio Lockett, | | | 2019 | ealth-Sched | | PhD [address] | | | | uled | | [place], [place] | | | | | | [address] | | | | | | [phone] | | | | | | | | +--------+ + + + + | 12/01/ | Video/TeleH | Pain Management | Florencio Lockett, | | | 2019 | ealth-Sched | | PhD [address] | | | | uled | | [place], [place] | | | | | | [address] | | | | | | [phone] | | | | | | | | +--------+ + + + + | 01/06/ | Office | Plastic Surgery | Kuldip Harrell MD | | 2019 | Visit | | [address] | | | | | | [place], [place] | | | | | | [address] | | | | | | [phone] | | | | | | | | +--------+ + + + + documented as of this encounter Visit Diagnoses Not on filedocumented in this encounter"
--- OUTSIDE RECORDS SUMMARY | ~2019-11-06 | XMS | Encounter Summary ---
Demographics + + + | Address | [address] | | | [place] [address] | + + + | Home Phone [...] Team Providers + +------+ + | Care Briar Shop Supervisor Name | Role | Phone | + +------+ + | Alisha Stovall PA-C | PCP | | + +------+ + Encounter Details +--------+------+ + + + | Date | Type | Department | Care Team | Description | +--------+------+ + + + | 08/10/ | Lab | Laboratory at [facility] | | Preop testing | | 2019 | | [address] | | | | | | [place] [facility] | | | | | | and Healing, | | | | | | Building [address] | | | | | | [place], [place] | | | | | | [address] | | | | | | [phone] | | | +--------+------+ + + + [...] Ave | | | | | | [place], [place] | | | | | | [address] | | | | | | [phone] | | | | | | | | +--------+ + + + + | 11/17/ | Video/TeleH | Pain Management | Florencio Lockett, | | | 2019 | ealth-Sched | | PhD [address] | | | | uled | | [place], [place] | | | | | | [address] | | | | | | [phone] | | | | | | | | +--------+ + + + + | 12/01/ | Video/TeleH | Pain Management | Florencio Lockett, | | | 2019 | ealth-Sched | | PhD [address] | | | | uled | | [place], [place] | | | | | | [address] | | | | | | [phone] | | | | | | | | +--------+ + + + + | 01/06/ | Office | Plastic Surgery | Kuldip Harrell MD | | | 2019 | Visit | | [address] | | | | | | [place], [place] | | | | | | [address] | | | | | | [phone] | | | | | | | [...] | + + + + + | [facility] | [address] | [place] [address] | | | SERVICES, CORE | SAMMI [...] | | | | | determined by [facility] | | | | | | Laboratories. See | | | | | | Compliance Statement B: | | | | | | [email or web address] | | | | | | by [address] | | | | | | [place] | | | | | | [address] | | | | | | [phone]. | | | | | | Josué [...] [facility] | [address] | [place], [place] | | | [facility] | | [address] | | + + + + + documented in this encounter Visit Diagnoses + + | Diagnosis | + + | Preop testing Preoperative examination, unspecified | + + documented in this encounter"
--- OUTSIDE RECORDS SUMMARY | ~2019-11-06 | XMS | Encounter Summary ---
Demographics + + + | Address | [address] | | | [place] [address] | + + + | Home Phone [...] Team Providers + +------+ + | Care Biofuels Plant Superintendent Name | Role | Phone | + +------+ + | Alisha Stovall PA-C | PCP | | + +------+ + Encounter Details +--------+ + + + + | Date | Type | Department | Care Team | Description | +--------+ + + + + | 03/29/ | Documentati | Pain Center at [facility] | Florencio Lockett G, | | | 2018 | on | [address] | PhD [address] | | | | | Center for Health | [place], [place] | | | | | and Healing, | [address] | | | | | | [phone] | | | | | Floor [place], [place] | | | | | | [address] | | | | | | [phone] | | | +--------+ + + + [...] [address] | | | | | | [place], [place] | | | | | | [address] | | | | | | [phone] | | | | | | | | +--------+ + + + + | 11/17/ | Video/TeleH | Pain Management | Florencio Lockett, | | | 2019 | ealth-Sched | | PhD [address] | | | | uled | | [place], [place] | | | | | | [address] | | | | | | [phone] | | | | | | | | +--------+ + + + + | 12/01/ | Video/TeleH | Pain Management | Florencio Lockett G, | | | 2019 | ealth-Sched | | PhD [address] | | | | uled | | [place], [place] | | | | | | [address] | | | | | | [phone] | | | | | | | | +--------+ + + + + | 01/06/ | Office | Plastic Surgery | Kuldip Harrell MD | | | 2019 | Visit | | [address] | | | | | | [place], [place] | | | | | | [address] | | | | | | [phone] | | | | | | | | +--------+ + + + + documented as of this encounter Visit Diagnoses Not on filedocumented in this encounter"
--- OUTSIDE RECORDS SUMMARY | ~2019-11-06 | XMS | Encounter Summary ---
Demographics + + + | Address | [address] | | | [place] [address] | + + + | Home Phone [...] Team Providers + +------+ + | Care Front Desk Receptionist Name | Role | Phone | + [...] | | | Surg Chh2 | Chh2 [address] | | | | | | [address] | [address] | | | | | | Ave Center | Center for | | | | | | for Health | Health and | | | | | | and Healing, | Healing, | | | | | | Building 2 | Building 2 | | | | | | [place], | [place], [place] | | | | | | [place] | [address] | | | | | | [address] | Phone: | | | | | | Phone: | [phone] | | | | | | [phone] | Fax: | | | | | | Fax: | [phone] | | | | | | [phone] | | +--------+--------+ + + + + Encounter Details +--------+---------+ + + + | Date | Type | Department | Care Team | Description | +--------+---------+ + + + | 10/26/ | Office | Digestive Health | Lisa Medina RD | S/P gastric bypass | | 2019 | Visit | Center at [facility] [address] | [address] | (Primary Dx); Morbid | | | | [address] | Monse Hernandez [place], | obesity (HCC) | | | | for Health and | [place] [address] | | | | | [place] [address] | [phone] | | | | | [place], [place] | | | | | | [address] | | | | | | [phone] | | | +--------+---------+ + + + [...] of visit: 9:42 to 10:11 (29 minutes fvhk-[id number] with patient) Surgery: Gastric Bypass and Cholecystectomy [...] mellitus (HCC) Food logs: No Food choices: ukrainian yogurt, imitation crab, tuna, cream of mushroom [...] in symptoms. Lisa Medina RD, CNSC, LD [facility] Bariatrics [phone] documented in this enco unter Plan of Treatment +--------+ + + + + | Date | Type | Specialty | Care Team | Description | +--------+ + + + + | 11/13/ | Office | Gastroenterology | Cassidy Schneider, | | | 2019 | Visit | | MD [address] | | | | | | [place], [place] | | | | | | [address] | | | | | | [phone] | | | | | | | | +--------+ + + + + | 11/17/ | Video/TeleH | Pain Management | Florencio Lockett, | | | 2019 | ealth-Sched | | PhD [address] | | | | uled | | [place], [place] | | | | | | [address] | | | | | | [phone] | | | | | | | | +--------+ + + + + | 12/01/ | Video/TeleH | Pain Management | Florencio Lockett, | | | 2019 | ealth-Sched | | PhD [address] | | | | uled | | [place], [place] | | | | | | [address] | | | | | | [phone] | | | | | | | | +--------+ + + + + | 01/06/ | Office | Plastic Surgery | Kuldip Harrell MD | | | 2019 | Visit | | [address] | | | | | | [place], [place] | | | | | | [address] | | | | | | [phone] | | | | | | | | +--------+ + + + + documented as of this encounter Procedures + +--------+ + + + | Procedure Name | Priori | Date/Time | Associated Diagnosis | Comments | | | ty | | | | + +--------+ + + + | MA MNT RE-ASSESSMNT | Routin | 10/26/2018 | [...]
--- OUTSIDE RECORDS SUMMARY | ~2019-11-06 | XMS | Encounter Summary ---
Demographics + + + | Address | [address] | | | [place] [address] | + + + | Home Phone [...] Team Providers + +------+ + | Care Direct Selling Counselor Name | Role | Phone | + [...] | | | | | 4th floor [place], | | | | | | [place] [address] | | | | | | [phone] | | | +--------+ + + + [...] [address] | | | | | | [place], [place] | | | | | | [address] | | | | | | [phone] | | | | | | | | +--------+ + + + + | 11/17/ | Video/TeleH | Pain Management | Florencio Lockett, | | | 2019 | ealth-Sched | | PhD [address] | | | | uled | | [place], [place] | | | | | | [address] | | | | | | [phone] | | | | | | | | +--------+ + + + + | 12/01/ | Video/TeleH | Pain Management | Florencio Lockett, | | | 2019 | ealth-Sched | | PhD [address] | | | | uled | | [place], [place] | | | | | | [address] | | | | | | [phone] | | | | | | | | +--------+ + + + + | 01/06/ | Office | Plastic Surgery | Kuldip Harrell MD | | | 2019 | Visit | | [address] | | | | | | [place], [place] | | | | | | [address] | | | | | | [phone] | | | | | | | | +--------+ + + + + documented as of this encounter Visit Diagnoses Not on filedocumented in this encounter"
--- OUTSIDE RECORDS SUMMARY | ~2019-11-06 | XMS | Encounter Summary ---
Demographics + + + | Address | [address] | | | [place] [address] | + + + | Home Phone [...] Team Providers + +------+ + | Care Junior Oracle Dba Name | Role | Phone | [...] 2019 | Visit | Center at [facility] | ACNP [address] | gastric bypass | | | | [address] | Ave [place], [place] | (Primary Dx); | | | | for Health and | [address] | History of | | | | [facility], Building 2 | | laparoscopic | | | | [facility] [place] | | cholecystectomy; | | | | [address] | | Vitamin D | | | [...] encounter Patient Instructions Patient Instructions Mehreen Koenig, [facility] - 10/02/2018 2:20 PM PDTHair Loss Massage [...] cium, dairy or acid reducers) Calcium citrate 1253-6894 mg per day with vitamin D 1000 [...] grade school children. She met with the water inspector prior to this appointment. ON 09.27.2018 She [...] Doxycycline Rash Percocet [Oxycodone-Acetaminophen] Nausea and Vomiting [place] Oil Hives and Nausea and Vomiting Seroquel [...] Laparoscopic andreia-en-y gastric bypass with cholecystectomy 09/24/[address] [place] Social History Socioeconomic History Marital [...] file Gets together: Not on file Attends moravian service: Not on file Active member of [...] Or two. She met previously with the water inspector. 4. Itching: I added vistaril, which will [...] visit: 22 minutes Mehreen Koenig DNP, ACNP, OBIEE LEAD DEVELOPER Traffic Engineering Director Bariatric Surgery [facility] documented in this encounter Plan of Treatment +--------+ + + + + | Date | Type | Specialty | Care Team | Description | +--------+ + + + + | 11/13/ | Office | Gastroenterology | Cassidy Schneider, | | | 2019 | Visit | | [address] | | | | | | [place], [place] | | | | | | [address] | | | | | | [phone] | | | | | | | | +--------+ + + + + | 11/17/ | Video/TeleH | Pain Management | Florencio Lockett, | | | 2019 | ealth-Sched | | PhD [address] | | | | uled | | [place], [place] | | | | | | [address] | | | | | | [phone] | | | | | | | | +--------+ + + + + | 12/01/ | Video/TeleH | Pain Management | Florencio Lockett, | | | 2019 | ealth-Sched | | PhD [address] | | | | uled | | [place], [place] | | | | | | [address] | | | | | | [phone] | | | | | | | | +--------+ + + + + | 01/06/ | Office | Plastic Surgery | Kuldip Harrell MD | | | 2019 | Visit | | [address] | | | | | | [place], [place] | | | | | | [address] | | | | | | [phone] | | | | | | | [...]
--- OUTSIDE RECORDS SUMMARY | ~2019-11-06 | XMS | Encounter Summary ---
Demographics + + + | Address | [address] | | | [place] [address] | + + + | Home Phone [...] + + + | Author | [facility] | + + + | Organization | [facility] | + + + | Address | Unknown | + + + | Phone | Unavailable | + + + Support + + +---------+ + | Name | Relationship | Address | Phone | + + +---------+ + | Jeovanny Hernández | ECON | Unknown | | + + +---------+ + Care Team Providers + +------+ + | Care Automobile Damage Field Appraiser Name | Role | Phone | + [...] | 2018 | Encounter | Preventive at [facility] | SHANICE Villafuerte [address] | | | | | [address] | [address] [place], | | | | | [facility] | [place] [address] | | | | | and Healing, | [phone] | | | | | [address] | | | | | | [place], [place] | | | | | | [address] | | | | | | [phone] | | | +--------+ + + + [...] | | 2019 | Visit | | [address] | | | | | | [place], [place] | | | | | | [address] | | | | | | [phone] | | | | | | | | +--------+ + + + + | 11/17/ | Video/TeleH | Pain Management | Florencio Lockett, | | | 2019 | ealth-Sched | | PhD [address] | | | | uled | | [place], [place] | | | | | | [address] | | | | | | [phone] | | | | | | | | +--------+ + + + + | 12/01/ | Video/TeleH | Pain Management | Florencio Lockett, | | | 2019 | ealth-Sched | | PhD [address] | | | | uled | | [place], [place] | | | | | | [address] | | | | | | [phone] | | | | | | | | +--------+ + + + + | 01/06/ | Office | Plastic Surgery | Kuldip Harrell MD | | | 2019 | Visit | | [address] | | | | | | [place], [place] | | | | | | [address] | | | | | | [phone] | | | | | | | | +--------+ + + + + documented as of this encounter Visit Diagnoses Not on filedocumented in this encounter"
--- OUTSIDE RECORDS SUMMARY | ~2019-11-06 | XMS | Encounter Summary ---
Demographics + + + | Address | [address] | | | [place] [address] | + + + | Home Phone [...] Team Providers + +------+ + | Care Thread Spinner Name | Role | Phone | + [...] | | | obesity | [address] [facility] | [facility] | | | | | ([facility]) | [facility] | for Health | | | | | Procedures | Rd | and Healing, | | | | | PHYSICAL | [facility] [place] | Building 1, | | | | | THERAPY | [address] | 1st Floor | | | | | REFERRAL | Phone: | [place], [place] | | | | | | [phone] | [address] | | | | | | Fax: | Phone: | | | | | | [phone] | [phone] | | | | | | | Fax: | | | | | | | [phone] | +--------+--------+ + + + + Encounter Details +--------+---------+ + + + | Date | Type | Department | Care Team | Description | +--------+---------+ + + + | 10/13/ | Office | [facility] Physical | Daphnieella, | Morbid obesity (HCC) | | 2018 | Visit | Therapy Services at | Shannan, PT [address] | (Primary Dx); | | | | [facility] | [facility] | Weakness | | | | [address] | [address] [facility] [place] | generalized; | | | | [place] for [facility] | [address] | Decreased activity | | | | and Healing, | [phone] | | | | | Building | | | | | | Floor [place], [place] | | | | | | [address] | | | | | | [phone] | | | +--------+---------+ + + + [...] kym t from the original. Insurance: Payor: [facility] / Plan: [facility] [place] / Product Type: Medicaid / Non-Medicare [facility] No past medical history on file. No past surgical history on file. No current outpatient prescriptions on file. Previous physical therapy treatment or alternative treatments for this condition includes: none. Results of previous treatment: N/A. Concurrent medical treatment: Manager Of Compliance, RN, MD. Patient has PT for neck [...] exercises Aquatic exercises G-Codes established 10/13/17 G8978 SC MOBILITY CURRENT STATUS Impairment 60-79 % G8979 [...] course Low - Uncomplicated Complexity: Low - 33371 The patient requires services that can be [...] status. Shannan Villagran, PT [facility] 1ST FLOOR Scheduled Appointment time: 1:00 [...] home for shoulder pain Procedure Codes: Re-evaluation 67205, Therapeutic Exercise 47190, Therapeutic Activities 9 5406, Gait Training 72265 and Self-care ADL 54578 Minutes per session: 45 Total number of [...] activity Next progress report 12/13/2017 Insurance: Payor: [employer] MEDICAID / Plan: [employer] [place] / Product Type: Medicaid / G-code:- [...] Ave | | | | | | [place], [place] | | | | | | [address] | | | | | | [phone] | | | | | | | | +--------+ + + + + | 11/17/ | Video/TeleH | Pain Management | Florencio Lockett, | | | 2019 | ealth-Sched | | PhD [address] | | | | uled | | [place], [place] | | | | | | [address] | | | | | | [phone] | | | | | | | | +--------+ + + + + | 12/01/ | Video/TeleH | Pain Management | Florencio Lockett, | | | 2019 | ealth-Sched | | PhD [address] | | | | uled | | [place], [place] | | | | | | [address] | | | | | | [phone] | | | | | | | | +--------+ + + + + | 01/06/ | Office | Plastic Surgery | Kuldip Harrell MD | | | 2019 | Visit | | [address] | | | | | | [place], [place] | | | | | | [address] | | | | | | [phone] | | | | | | | | +--------+ + + + + + + +--------+ + + | Name | Type | Priori | Associated Diagnoses | Order Schedule | | | | ty | | | + + +--------+ + + | SC MOBILITY CURRENT | Procedures | Routin | Morbid obesity | Ordered: 10/18/2017 | | STATUS | | e | ([facility]) Weakness | | | | | [...]
--- OUTSIDE RECORDS SUMMARY | ~2019-11-06 | XMS | Encounter Summary ---
Demographics + + + | Address | [address] | | | [place] [address] | + + + | Home Phone [...] Team Providers + +------+ + | Care Biotech Production Specialist Name | Role | Phone | + +------+ + | Alisha Stovall PA-C | PCP | | + +------+ + Encounter Details +--------+ + + + + | Date | Type | Department | Care Team | Description | +--------+ + + + + | 09/01/ | Outside | UNKNOWN DEPARTMENT | Other, Faculty | | | 2017 | Records | [address] | [phone] | | | | | [address] | | | | | | [place], [place] | | | | | | [address] | | | +--------+ + + + [...] | | 2020 | Visit | | [address] | | | | | | [place], [place] | | | | | | [address] | | | | | | [phone] | | | | | | | | +--------+ + + + + | 11/17/ | Video/TeleH | Pain Management | Florencio Lockett, | | | 2019 | ealth-Sched | | PhD [address] | | | | uled | | [place], [place] | | | | | | [address] | | | | | | [phone] | | | | | | | | +--------+ + + + + | 12/01/ | Video/TeleH | Pain Management | Florencio Lockett, | | | 2019 | ealth-Sched | | PhD [address] | | | | uled | | [place], [place] | | | | | | [address] | | | | | | [phone] | | | | | | | | +--------+ + + + + | 01/06/ | Office | Plastic Surgery | Kuldip Harrell MD | | | 2019 | Visit | | [address] | | | | | | [place], [place] | | | | | | [address] | | | | | | [phone] | | | | | | | [...]
--- OUTSIDE RECORDS SUMMARY | ~2019-11-06 | XMS | Encounter Summary ---
Demographics + + + | Address | [address] | | | [place] [address] | + + + | Home Phone [...] Team Providers + +------+ + | Care Flitch Hanger Name | Role | Phone | [...] [address] | | | | | | [place], [place] | | | | | | [address] | | | | | | [phone] | | | | | | | | +--------+ + + + + | 11/17/ | Video/TeleH | Pain Management | Florencio Lockett, | | | 2019 | ealth-Sched | | PhD [address] | | | | uled | | [place], [place] | | | | | | [address] | | | | | | [phone] | | | | | | | | +--------+ + + + + | 12/01/ | Video/TeleH | Pain Management | Florencio Lockett, | | | 2019 | ealth-Sched | | PhD [address] | | | | uled | | [place], [place] | | | | | | [address] | | | | | | [phone] | | | | | | | | +--------+ + + + + | 01/06/ | Office | Plastic Surgery | Kuldip Harrell MD | | 2019 | Visit | | [address] | | | | | | [place], [place] | | | | | | [address] | | | | | | [phone] | | | | | | | | +--------+ + + + + documented as of this encounter Visit Diagnoses Not on filedocumented in this encounter"
--- OUTSIDE RECORDS SUMMARY | ~2019-11-06 | XMS | Encounter Summary ---
Demographics + + + | Address | [address] | | | [place] [address] | + + + | Home Phone [...] Team Providers + +------+ + | Care Chips Screen Tender Name | Role | Phone | + +------+ + | Alisha Stovall PA-C | PCP | | + +------+ + Reason for Visit + + + | Reason | Comments | + + + | Telephone follow-up | 01/10/2019 | + + + Encounter Details +--------+ + + + + | Date | Type | Department | Care Team | Description | +--------+ + + + + | 01/11/ | Telephone | Digestive Health | Julissa Rahman, | Telephone follow-up | | 2019 | | Center at [facility] [address] | MD [address] | (01/10/2019) | | | | [address] | [place], [place] | | | | | for Health and | [address] | | | | | [facility], [facility] 2 | [phone] | | | | | [place], [place] | | | | | | [address] | | | | | | [phone] | | | +--------+ + + + [...] [address] | | | | | | [place], [place] | | | | | | [address] | | | | | | [phone] | | | | | | | | +--------+ + + + + | 11/17/ | Video/TeleH | Pain Management | Florencio Lockett, | | | 2019 | ealth-Sched | | PhD [address] | | | | uled | | [place], [place] | | | | | | [address] | | | | | | [phone] | | | | | | | | +--------+ + + + + | 12/01/ | Video/TeleH | Pain Management | Florencio Lockett, | | | 2019 | ealth-Sched | | PhD [address] | | | | uled | | [place], [place] | | | | | | [address] | | | | | | [phone] | | | | | | | | +--------+ + + + + | 01/06/ | Office | Plastic Surgery | Kuldip Harrell MD | | | 2019 | Visit | | [address] | | | | | | [place], [place] | | | | | | [address] | | | | | | [phone] | | | | | | | | +--------+ + + + + documented as of this encounter Visit Diagnoses Not on filedocumented in this encounter"
--- OUTSIDE RECORDS SUMMARY | ~2019-11-06 | XMS | Encounter Summary ---
Demographics + + + | Address | [address] | | | [place] [address] | + + + | Home Phone [...] Providers + +------+ + | Care Dairy Scientist Name | Role | Phone | [...] | [address] [facility] | [facility] | | | | | ([facility]) | [facility] | for Health | | | | | Procedures | Rd | and Healing, | | | | | PHYSICAL | [facility] [place] | Building 1, | | | | | THERAPY | [address] | 1st Floor | | | | | REFERRAL | Phone: | [place], [place] | | | | | | [phone] | [address] | | | | | | Fax: | Phone: | | | | | | [phone] | [phone] | | | | | | | Fax: | | | | | | | [phone] | +--------+--------+ + + + + Encounter Details +--------+ + + + + | Date | Type | Department | Care Team | Description | +--------+ + + + + | 08/14/ | Communication Equipment Mechanic | Digestive Health | Jody Watson ACNP | Morbid obesity (HCC) | | 2018 | | [place] [address] [address] | [address] | (Primary Dx) | | | | [address] [facility] | Monse Hernandez KINNEY, | | | | | for Health and | [place] [address] | | | | | [facility], [address] 2 | [phone] | | | | | [place], [place] | | | | | | [address] | | | | | | [phone] | | | +--------+ + + + [...] | | 2019 | Visit | | [address] | | | | | | [place], [place] | | | | | | [address] | | | | | | [phone] | | | | | | | | +--------+ + + + + | 11/17/ | Video/TeleH | Pain Management | Florencio Lockett, | | | 2019 | ealth-Sched | | PhD [address] | | | | uled | | [place], [place] | | | | | | [address] | | | | | | [phone] | | | | | | | | +--------+ + + + + | 12/01/ | Video/TeleH | Pain Management | Florencio Lockett, | | | 2019 | ealth-Sched | | PhD [address] | | | | uled | | [place], [place] | | | | | | [address] | | | | | | [phone] | | | | | | | | +--------+ + + + + | 01/06/ | Office | Plastic Surgery | Kuldip Harrell MD | | | 2019 | Visit | | [address] | | | | | | [place], [place] | | | | | | [address] | | | | | | [phone] | | | | | | | | +--------+ + + + + documented as of this encounter Visit Diagnoses + + | Diagnosis | + + | Morbid obesity (HCC) - Primary Morbid obesity | + + documented in this encounter"
--- OUTSIDE RECORDS SUMMARY | ~2019-11-06 | XMS | Encounter Summary ---
Demographics + + + | Address | [address] | | | [place] [address] | + + + | Home Phone | | + + + | Preferred Language | Unknown | + + + | Marital Status | | + + + | Advent Affiliation | Unknown | + + + | Race | Unknown | + + + | Ethnic Group | Unknown | + + + Author + + + | Author | [facility] | | | and [place] | + + + | Organization | [facility] | | [...] [place], | | | | | [place] [address] | | + + + + + Care Team Providers + +------+ + | Care Street Photographer Name | Role | Phone | + [...] | | [place], [place] | [place] [address] | | | | | [address] | [phone] | | | | | [phone] | | | +--------+ + + + [...] at 08/30/2018 10:05 AM PDTdocumented in this [facility] Plan of Treatment +--------+---------+ + + + | Date | Type | Specialty | Care Team | Description | +--------+---------+ + + + | 11/18/ | Office | Neurology | Shirley Murdock NP | | | 2019 | Visit | | [address] | | | | | | [place] | | | | | | [address] | | | | | | [phone] | | | | | | | | +--------+---------+ + + + | 11/25/ | Office | Cardiology | Katheryn Hammonds DO | | | 2019 | Visit | | [address] | | | | | | [place] | | | | | | [address] | | | | | | | | +--------+---------+ + + + documented as of this encounter Visit Diagnoses Not on filedocumented in this encounter"
--- OUTSIDE RECORDS SUMMARY | ~2019-11-06 | XMS | Encounter Summary ---
Demographics + + + | Address | [address] | | | [place] [address] | + + + | Home Phone [...] Team Providers + +------+ + | Care In Flight Refueling Manager Name | Role | Phone | + +------+ + | Alisha Stovall PA-C | PCP | | + +------+ + Reason for Visit + + + | Reason | Comments | + + + | Telephone follow-up | | + + + Encounter Details +--------+ + + + + | Date | Type | Department | Care Team | Description | +--------+ + + + + | 10/18/ | Telephone | Digestive Health | Kenan Norton, | Telephone follow-up | | 2019 | | Center at [facility] [address] | MD [address] | | | | | [address] | [facility] [place] | | | | | for Health and | [address] | | | | | Healing, [address] | | | | | | [place], [place] | | | | | | [address] | | | | | | | [...] | | 2019 | Visit | | [address] | | | | | | [place], [place] | | | | | | [address] | | | | | | [phone] | | | | | | | | +--------+ + + + + | 11/17/ | Video/TeleH | Pain Management | Florencio Lockett, | | | 2019 | ealth-Sched | | PhD [address] | | | | uled | | [place], [place] | | | | | | [address] | | | | | | [phone] | | | | | | | | +--------+ + + + + | 12/01/ | Video/TeleH | Pain Management | Florencio Lockett, | | | 2019 | ealth-Sched | | PhD [address] | | | | uled | | [place], [place] | | | | | | [address] | | | | | | [phone] | | | | | | | | +--------+ + + + + | 01/06/ | Office | Plastic Surgery | Kuldip Harrell MD | | | 2019 | Visit | | [address] | | | | | | [place], [place] | | | | | | [address] | | | | | | [phone] | | | | | | | | +--------+ + + + + documented as of this encounter Visit Diagnoses Not on filedocumented in this encounter"
--- OUTSIDE RECORDS SUMMARY | ~2019-11-06 | XMS | Encounter Summary ---
Demographics + + + | Address | [address] | | | [place] [address] | + + + | Home Phone [...] Team Providers + +------+ + | Care Dry Starch Operator Name | Role | Phone | + +------+ + | Alisha Stovall PA-C | PCP | | + +------+ + Encounter Details +--------+ + + + + | Date | Type | Department | Care Team | Description | +--------+ + + + + | 10/02/ | Telephone | Digestive Health | Harmony Billy, | | | 2019 | | [place] [address] | ,PhD [address] [facility] | | | | | [address] [facility] | [facility] | | | | | [facility] and | [place], [place] | | | | | [place], [facility] | [address] | | | | | [place], [place] | [phone] | | | | | [address] | | | | | | [phone] | | | +--------+ + + + [...] [address] | | | | | | [place], [place] | | | | | | [address] | | | | | | [phone] | | | | | | | | +--------+ + + + + | 11/17/ | Video/TeleH | Pain Management | Florencio Lockett, | | | 2019 | ealth-Sched | | [address] | | | | uled | | [place], [place] | | | | | | [address] | | | | | | [phone] | | | | | | | | +--------+ + + + + | 12/01/ | Video/TeleH | Pain Management | Florencio Lockett, | | | 2019 | ealth-Sched | | PhD [address] | | | | uled | | [place], [place] | | | | | | [address] | | | | | | [phone] | | | | | | | | +--------+ + + + + | 01/06/ | Office | Plastic Surgery | Kuldip Harrell MD | | | 2019 | Visit | | [address] | | | | | | [place], [place] | | | | | | [address] | | | | | | [phone] | | | | | | | | +--------+ + + + + documented as of this encounter Visit Diagnoses Not on filedocumented in this encounter"
--- OUTSIDE RECORDS SUMMARY | ~2019-11-06 | XMS | Encounter Summary ---
Demographics + + + | Address | [address] | | | [place] [address] | + + + | Home Phone [...] Providers + +------+ + | Care Film Library Clerk Name | Role | Phone | + +------+ + | Alisha Stovall PA-C | PCP | | + +------+ + Reason for Referral PROC - Inpatient Surgery (Routine) + +--------+ + + + + | Status | Reason | Specialty | Diagnoses / | Referred By | Referred To | | | | | Procedures | Contact | Contact | + +--------+ + + + + | Pending | | Surgery | Diagnoses | [facility], | [place], | | Review | | | S/P gastric | Kenan Santos MD | Kenan Santos MD | | | | | bypass | [address] | | | | | Dehydration | [address] | Ave | | | | | Nausea and | [facility] [place] | [place], [place] | | | | | vomiting, | [address] | [address] | | | | | intractabili | Phone: | Phone: | | | | | ty of | | | | | | | vomiting not | Fax: | Fax: | | | | | specified, | [phone] | [phone] | | | | | unspecified | | | | | | | vomiting | | | | | | | type | | | | | | | Epigastric | | | | | | | pain | | | | | | | Malnutrition | | | | | | | , | | | | | | | unspecified | | | | | | | type (HCC) | | | | | | | Procedures | | | | | | | REQUEST TO | | | | | | | SURGERY | | | | | | | STOCK CHECKERER | | | | | | | [place] | | | | | | | LAP,GASTROST | | | | | | | SAIGE,W/O TUBE | | | | | | | CONSTR OH | | | | | | | UPPER GI | | | | | | | ENDOSCOPY,DI | | | | | | | AGNOSIS [place] | | | | | | | PLACE PERCUT | | | | | | | GASTROSTOMY | | | | | | | TUBE [place] | | | | | | | LAP,DIAGNOST | | | | | | | IC ABDOMEN | | | + +--------+ + + + + Reason for Visit + + + | Reason | Comments | + + + | Return Patient | | + + + Consultation (Routine) [...] | [facility] | | | with PSYCHOLOGISTS | | | Surg [facility] | [facility] [...] [address] | | | | | | [place], | [place], [place] | | | | | | [place] | [address] | | | | | | [address] | Phone: | | | | | | Phone: | | | | | | | | Fax: | | | | | | Fax: | [phone] | | | | | | [phone] | | +--------+ + + + + + Encounter Details +--------+---------+ + + + | Date | Type | Department | Care Team | Description | +--------+---------+ + + + | 05/17/ | Office | Digestive Health | Kenan Norton, | S/P gastric bypass | | 2020 | Visit | Center at [facility] [address] | MD [address] | (Primary Dx); | | | | [address] | [place], [place] | Dehydration; Nausea | | | | for Health and | [address] | and vomiting, | | | | Healing, [address] | [phone] | intractability of | | | | [place], [place] | | vomiting not | | | | [address] | | specified, | | | | [phone] | | unspecified vomiting | | | | | | type; Epigastric | | | | | | pain; Morbid obesity | | | | | | ([facility]); | | | | | | Malnutrition, | | | | | | unspecified type | | | | | | ([facility]) | +--------+---------+ + + + Social History [...] + + + | Blood Pressure | 126/74 | 05/17/2019 11:55 AM | | | | | PST | | + + + + + | Pulse | 66 | 05/17/2019 11:55 AM | | | | | PST | | + + + + + | Temperature | 36.7 C (98 F) | 05/17/2019 11:55 AM | | | | | PST | | + + + + + | Respiratory Rate | 18 | 05/17/2019 11:55 AM | | | | | PST | | + + + + + | Oxygen Saturation | - | - | | + + + + + | Inhaled Oxygen | - | - | | | Concentration | | | | + + + + + | Weight | 110.1 kg (242 lb | 05/17/2019 11:55 AM | | | | 12.8 oz) | PST | | + + + + + | Height | 180.3 cm (5' 11") | 05/17/2019 11:55 AM | | | | | PST | | + + + + + | Body Mass Index | 33.86 | 05/17/2019 11:55 AM | | | | | PST [...] encounter Progress Notes Kenan Norton MD - 05/17/2019 11:45 AM PSTFormatting of this note might be different fr om the original. BARIATRIC SURGERY OFFICE VISIT DATE OF VISIT: 05/17/2019 REASON FOR VISIT: Pre-op discussion HISTORY: Maria De Jesus Anna is a(n) 28 y.o. female with history of LRYGB and cholecystectomy on 09/24/2018, post-op course complicated by persistent nausea, occasional vomiting, poor po intake and multiple food intolerances, dehydration requiring IVF infusions, as well as epiga stric pain. Patient has had no improvement since last visit. Continues to struggle. She tried the mirt azapine but cannot take it during the day because it makes her too sleepy. She is taking it at night. She needs refill of simethicone. She is ready to try the feeding tube. But she is VERY concerned and upset about the prospec t of gaining weight. She feels very upset and depressed that the surgery hasn't been what sh e expected. She is very happy about her weight loss however, so she feels very torn about pr oceeding with the feeding tube. Work-up has included UGI x 2, EGD, esophageal manometry. Has not clearly identified a sour ce for her symptoms. There does seem to be a very strong component of dysmotility. She has a long history of constipation, including hospitalizations for disimpaction as a child. She regularly can go over 2 weeks without BM. Usually, she is doing every 5-6 days. Says Tea lax does nothing for her. 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 We discussed that I would like her to see one of the GI specialist in GI motility. Past Surgical History Procedure Laterality Date Acl repair Left Upper gi endoscopy Manipulation of knee joint under general anesthesia Left Laparoscopic andreia-en-y gastric bypass with cholecystectomy 09/24/[address] [facility] [address] Norton PHYSICAL EXAMINATION: BP 126/74 | Pulse 66 | Temp 36.7 C (98 F) (Oral) | Resp 18 | Ht 1.803 m (5' 11") | Wt 110.1 kg (242 lb 12.8 oz) | BMI 33.86 kg/m | BSA 2.35 m GENERAL: In no apparent distress, but depressed affect, tearful at times HEENT: Grossly within normal limits. NECK: Supple, full range of motion. SKIN: No visible rashes. CHEST: Respirations even and unlabored. CARDIOVASCULAR: Extremities warm and well perfused. ABDOMEN: soft, mild epigastric tenderness, well healed incisions without hernia GROINS/: Deferred. EXTREMITIES: No edema, normal range of motion. NEUROLOGIC: Moves all extremities spontaneously. No apparent neurologic deficits. Cranial nerves 2-12 grossly intact. Gait symmetric and age appropriate. IMPRESSION: A(n) 28 y.o. female who is s/p LRYGB and cholecystectomy (09/24/2018) who has st ruggled with poor po intake, nausea/vomiting, and dehydration since surgery. Work-up has be en extensive and without findings to clerly explain her symptoms. She has never thrived post -op. She had very rapid weight loss (384 -> 242 lbs) and continues to have very little po i ntake (tolerates very few foods, <20 oz of water intake per day), suffering from dehydration and malnutrition at this point. She has required IVF infusions and doesn't feel well when she misses one. PLAN: 1. Diagnostic laparoscopy with evaluation of internal hernia defects, feeding gastrostomy t ube placement in remnant stomach, and EGD with possible dilation - will schedule manjeet 2. Referral to Dr. Schneider in GI 3. Discuss referral for biofeedback with Dr. Lockett 4. Continue infusions A full PARQ session was held. We had a lengthy discussion regarding the above planned proce dures. The risks of both procedures were discussed and include but are not limited to , myocardial infarction, stroke, bleeding, infection, GI leak/perforation, DVT/PE, injury to bowel or other structures upon entering the abdomen, conversion to an open procedure, incisi onal hernia especially if converted to an open procedure, bowel obstruction, chronic nausea, and chronic nutritional/vitamin deficiencies despite supplementation. I stressed that all complication rates and outcomes were estimates only. The patient appeared to understand, was given an opportunity to ask questions, and agrees to proceed. We discussed possible complications, and if any occur, they may need longer hospitalization and additional procedures. We discussed that we did not cover all possible risks and outcomes, but that I have provide d the patient with a summary of the most common and important risks. We discussed the possib ility of blood transfusion with attendant risks, the need for sedation and anesthesia with a ttendant risks that would be reviewed in detail with the anesthesiologists, the possibility that observers may be present and photographs may be taken in the operating room for teachin g purposes, and that all of observers and photographs will be compliant with HIPPA. We discu ssed the fact that fellows and residents would be involved in intra-operative and post-opera tive care but that I will be the primary surgeon, present for the entire procedure, and misty nguyen and supervise all care delivered. We discussed the fact that if we encounter anything une xpected in the operating room that I would adjust the operative plan accordingly based on my best judgment. The patient appeared to understand, was given an opportunity to ask question s, and agrees to proceed. I spent 30 minutes face to face with the patient and her family. We discussed planned proce dure and perioperative expectations. Greater than 50% of the encounter was spent in counseli ng and educating the patient. Electronically signed on 05/23/2019 at 9:30 AM Kenan oNrton MD. Addendum: Severe, chronic constipation Pt with severe, lifelong constipation, which has been worse since surgery. She has a Hx of needing disimpaction as a child and hospitalizations for constipation. Now going sometimes 2 -3 weeks without a BM. Has no response to miralax, even at large doses. Failure of other med s including stool softeners and stimulants. Discussed her case with Dr. Schneider from GI. Rec trial of Linzess 145 mcg daily. We will se nd this to her pharmacy. documented in this encounter Plan of Treatment +--------+ + + + + | Date | Type | Specialty | Care Team | Description | +--------+ + + + + | 11/13/ | Office | Gastroenterology | Cassidy Schneider, | | | 2019 | Visit | | [address] | | | | | | [place], [place] | | | | | | [address] | | | | | | [phone] | | | | | | | | +--------+ + + + + | 11/17/ | Video/TeleH | Pain Management | Florencio Lockett, | | | 2019 | ealth-Sched | | PhD [address] | | | | uled | | [place], [place] | | | | | | [address] | | | | | | [phone] | | | | | | | | +--------+ + + + + | 12/01/ | Video/TeleH | Pain Management | Florencio Lockett, | | | 2019 | ealth-Sched | | PhD [address] | | | | uled | | [place], [place] | | | | | | [address] | | | | | | [phone] | | | | | | | | +--------+ + + + + | 01/06/ | Office | Plastic Surgery | Kuldip Harrell MD | | | 2020 | Visit | | [address] | | | | | | [place], [place] | | | | | | [address] | | | | | | [phone] | | | | | | | [...] Abdominal pain, epigastric | + + | Morbid obesity (HCC) Morbid obesity | + + | Malnutrition, unspecified type (HCC) | + + documented in this encounter
--- OUTSIDE RECORDS SUMMARY | ~2019-11-06 | XMS | Encounter Summary ---
Demographics + + + | Address | [address] | | | [place] [address] | + + + | Home Phone [...] Team Providers + +------+ + | Care Valet Attendant Name | Role | Phone | + [...] [address] | | | | | | [place], [place] | | | | | | [address] | | | | | | [phone] | | | | | | | | +--------+ + + + + | 11/17/ | Video/TeleH | Pain Management | Florencio Lockett, | | | 2019 | ealth-Sched | | PhD [address] | | | | uled | | [place], [place] | | | | | | [address] | | | | | | [phone] | | | | | | | | +--------+ + + + + | 12/01/ | Video/TeleH | Pain Management | Florencio Lockett, | | | 2019 | ealth-Sched | | PhD [address] | | | | uled | | [place], [place] | | | | | | [address] | | | | | | [phone] | | | | | | | | +--------+ + + + + | 01/06/ | Office | Plastic Surgery | Kuldip Harrell MD | | 2019 | Visit | | [address] | | | | | | [place], [place] | | | | | | [address] | | | | | | [phone] | | | | | | | | +--------+ + + + + documented as of this encounter Visit Diagnoses Not on filedocumented in this encounter"
--- OUTSIDE RECORDS SUMMARY | ~2019-11-06 | XMS | Encounter Summary ---
Demographics + + + | Address | [address] | | | [place] [address] | + + + | Home Phone [...] Providers + +------+ + | Care Direct Mail Coordinator Name | Role | Phone | [...] Description | +--------+---------+ + + + | 09/24/ | Surgery | 6A Intra Op 3181 | Kenan Norton, | LAPAROSCOPIC NOREEN EN | | 2019 | | [place] | [address] | Y GASTRIC BYPASS, | | | | Rd [facility] | [place], [place] | | | | | Hospital Admitting | [address] | | | | | Desk Located on the | [phone] | | | | | 9th floor | | | | | | [place], [place] | | | | | | [address] | | | +--------+---------+ + + + [...] Watson ACNP - 09/26/2018 10:36 AM PDT [facility] RED SURGERY INPATIENT DISCHARGE SUMMARY Author: DIEGO [...] or Kefir, Stoneyfield Yogurt, and Chioban i Frisian Yogurt are common brands with beneficial probiotics. [...] are available over the counter at most [facility] stores. Nausea/Vomiting/Difficulty Swallowing Nausea/Vomiting/Difficulty swallowing: Could be [...] hours per your instructions. Some medications, like [place], have Tylenol in it. Make sure you [...] as this clinic does not provide [facility] [place] [facility] chronic pain management services. When [...] hours by calling the surgery office at [phone]. - After hours, weekends and holidays, you may call the hospital screw machine operator single spindle at [phone] an d have the electronics parts sales representative Red Surgery Team paged. Destination Home Condition [...] Phone Center 10/02/2018 1:30 PM Indu Pisano [facility] at [facility] [phone] FOOD AND N UT 10/02/2018 2:20 PM Mehreen Bee [facility] at [facility] [phone] [facility] 10/26/2018 8:30 AM Kenan Norton [facility] at [facility] [phone] [facility] 10/26/2018 9:00 AM Lisa Medina Digest[facility] at [facility] [phone] FOOD AND NUT 12/21/2018 10:30 AM Pedro Sánchez [facility] at [facility] [phone] FOOD AND N UT 12/21/2018 11:20 AM Jody Watson [facility] at [facility] [phone] [facility] Discharging Physician: DIEGO Plascencia Attending Physician: Kenan Norton MD [facility] Red Surgery Pager# [phone] 10:37 AM 09/26/2018 documented in this enco [...] kg/m | BSA 2.9 m Intake/Output 09/24 0701 - / 0700 06/ 0701 - 09/26 0700 06/05 0701 - 09/27 0700 [address] 50 1020 I.V. 3330 3962.5 [...] full liquid diet today - Seen by claim investigator yesterday - dc MIVF - Encourage ambulation, [...] kg/m | BSA 2.9 m Intake/Output / 07 - 09/24 0700 / 07 - 09/25 0700 / 07 - 09/26 0700 [address] 50 I.V. 3330 20 [...] prescribed screening protocols as defined by the [facility] bariatric program including medic al, psychiatric [...] unit oral capsule Take 1 capsule by sandra th once daily. cyanocobalamin 1,000 mcg/mL injection solution [...] Doxycycline Rash Percocet [Oxycodone-Acetaminophen] Nausea and Vomiting [place] Oil Hives and Nausea and Vomiting Seroquel [Quetiapine Fumarate] Suicidal Ideation Social History Narrative Lexiscan Myocardial Perfusion Study ([facility]) 02/19/2018 (see media): CHEST 2 VIEWS [...] | | 2019 | Visit | | [address] | | | | | | [place], [place] | | | | | | [address] | | | | | | [phone] | | | | | | | | +--------+ + + + + | 11/17/ | Video/TeleH | Pain Management | Florencio Lockett, | | | 2019 | ealth-Sched | | PhD [address] | | | | uled | | [place], [place] | | | | | | [address] | | | | | | [phone] | | | | | | | | +--------+ + + + + | 12/01/ | Video/TeleH | Pain Management | Florencio Lockett, | | | 2019 | ealth-Sched | | PhD [address] | | | | uled | | [place], [place] | | | | | | [address] | | | | | | [phone] | | | | | | | | +--------+ + + + + | 01/06/ | Office | Plastic Surgery | Kuldip Harrell MD | | 2019 | Visit | | [address] | | | | | | [place], [place] | | | | | | [address] | | | | | | [phone] | | | | | | | [...] CHOLECYSTECOMY | ve | 12:10 PM | ([facility]) | | | | Surgic | PDT [...] | | | GLUCOSE, | | | MARKAYKAYAM | | | POC | | | [...] FORMAN | [address] | [place], [place] | | | [facility] | [address] | [address] | | | TESTS | | | [...] MARQUAM | [address] | [place], [place] | | | TUSHAR KING OF CARE | [address] | [address] | | | TESTS | | | [...] + + + + | [facility] | [address] | [place], [place] | | | CHRISTINE POINT OF CARE | [address] | [address] | | | TESTS | | | [...] FORMAN | [address] | [place], [place] | | | [facility] [place] | [address] | [address] | | | TESTS | | | [...] MARQUAM | [address] | [place], [place] | | | T[facility]AR KING OF CARE | [address] | [address] | | | TESTS | | | [...] + + + | PEE FORMAN | [address] [facility] | [place], [place] | | | [place] [facility] | [address] | [address] | | | TESTS | | | | + + + + + EGD (ESOPHAGOGASTRODUODENOSCOPY) (09/24/2018 3:01 PM PDT) + + + | Narrative | Performed At | + + + | Kenan Norton MD 09/24/2018 3:26 PM Date of Procedure: | | | 09/24/18 Primary Surgeon: Kenan Norton MD Co Surgeon or | | | desk assistant: Wendy Rawls MD; MIS Fellow Preoperative | [...] | Anesthesia: General endotracheal anesthesia Staff: Codi CRIMINAL DEFENSE ATTORNEY: | | | Heather Zamorano Complications: none [...] limb and a | | | 60mm Woodway stapler with white load was fired to create a | | | vimh-ge-qunj jejunojejunostomy. The anastamosis was confirmed to | | | be widely patent and hemostatic. The common enterotomy was closed | | | by firing an Woodway 60mm stapler with white load across the [...] was | | | entered. The 60mm Woodway stapler with blue load was placed and | | | fired transversely to start gastric pouch formation. The Woodway | | | was then fired longitudinally towards the angle of His. Dissection | | | was performed retrogastric to connect posterior and anterior | | | dissection planes and ensure adequate fundus exclusion. Additional | | | fires of the Woodway stapler were performed with blue loads to [...] | | the small bowel. The 60mm Woodway stapler with blue load was then | [...] Kenan Norton MD, MS | | | [employer] [facility] Bariatric Surgery | | + + + LAPAROSCOPIC CHOLECYSTECTOMY (09/24/2018 3:01 PM PDT) + + + | Narrative | Performed At | + + + | Kenan Norton MD 09/24/2018 3:26 PM Date of Procedure: | | | 09/24/18 Primary Surgeon: Kenan Norton MD Co Surgeon or | | | desk assistant: Wendy Rawls MD; MIS Fellow Preoperative | [...] | Anesthesia: General endotracheal anesthesia Staff: Codi CRIMINAL DEFENSE ATTORNEY: | | | Heather Zamorano Complications: none [...] limb and a | | | 60mm Woodway stapler with white load was fired to create a | | | nuli-tw-qtax jejunojejunostomy. The anastamosis was confirmed to | | | be widely patent and hemostatic. The common enterotomy was closed | | | by firing an Woodway 60mm stapler with white load across the [...] was | | | entered. The 60mm Woodway stapler with blue load was placed and | | | fired transversely to start gastric pouch formation. The Woodway | | | was then fired longitudinally towards the angle of His. Dissection | | | was performed retrogastric to connect posterior and anterior | | | dissection planes and ensure adequate fundus exclusion. Additional | | | fires of the Woodway stapler were performed with blue loads to [...] | | the small bowel. The 60mm Woodway stapler with blue load was then | [...] Kenan Norton MD, MS | | | [employer] [facility] Bariatric Surgery | | + + + LAPAROSCOPIC GASTRIC BYPASS AND NOREEN-EN-Y GASTROENTEROSTOMY WITH NOREEN LIMB 150 CM OR LESS ( 09/24/2018 3:01 PM PDT) + + + | Narrative | Performed At | + + + | Kenan Norton MD 09/24/2018 3:26 PM Date of Procedure: | | | 09/24/18 Primary Surgeon: Kenan Norton MD Co Surgeon or | | | desk assistant: Wendy Rawls MD; MIS Fellow Preoperative | [...] | Anesthesia: General endotracheal anesthesia Staff: Codi CRIMINAL DEFENSE ATTORNEY: | | | Heather Zamorano Complications: none [...] was | | | marked with a baram drain. The mesentery was divided with | | | harmonic ultrasonic device. The distal jejunum was measure to 120 | | | cm. A stay-suture was placed at this location to the proximal | | | divided staple line. Enterotomies were created in each limb and a | | | 60mm Woodway stapler with white load was fired to create a | | | ejik-nr-yggr jejunojejunostomy. The anastamosis was confirmed to | | | be widely patent and hemostatic. The common enterotomy was closed | | | by firing an Woodway 60mm stapler with white load across the [...] was | | | entered. The 60mm Woodway stapler with blue load was placed and | | | fired transversely to start gastric pouch formation. The Woodway | | | was then fired longitudinally towards the angle of His. Dissection | | | was performed retrogastric to connect posterior and anterior | | | dissection planes and ensure adequate fundus exclusion. Additional | | | fires of the Woodway stapler were performed with blue loads to [...] | | the small bowel. The 60mm Woodway stapler with blue load was then | [...] Kenan Norton MD, MS | | | [employer] [facility] Bariatric Surgery | | + + + [...] PATHOLOGY | Jane on | | | [facility] | | | 09/26/2018 at | | | Student FellowChristian | | | 12:10 PM | | | MD Jane, PhD | | | | | | | | | | | | PathologistPathology, | | | | | | [facility] | | | | | | University [...] number | | | | | | [id number]. Abdominal, | | | | | | [...] and | | | | | | education courses sales representative sections | | | | | | from the fundus and body | | | | | | are submitted.A1, | | | | | | cystic duct margin en | | | | | | face, education courses sales representative | | | | | | [...] | + + + + + | [facility] [place] | [address] | [place] [address] | | | PATHOLOGY | [address] [...] + + + + | [facility] | [address] | [place], [place] | | | [facility] K[facility] CARE | [address] | [address] | | | TESTS | | | [...] + + | [facility] | [address] | [place], [place] | | | [facility] | [address] | [address] | | | TESTS | | | [...] | | | | HOURS NEEDED, Starting Tue | | AM PDT | | | | | 09/25/18 at 1845, Until 09/26/18 | | | | | | | at 1947, mild pain, fever, | | | | | | | multimodal pain control | | | | | | + +--------+ + +------+------+ +---+---+ | | | +---+---+ + +-------+ +-------+---+ + | bupivacaine | Given | 09/25/19 | 50 mL | | Surgical | | (MARCAINE,SENSORCAINE) 0.25 % | | 19 2:57 | | | Site | | (2.5 mg/mL) injection | | PM PDT | | | | | INTRAPROCEDURE PRN, Starting Mon | | | | | | | 09/24/18 at 1457, Until Mon09/24/18 | | | | | | | at 1513 | | | | | | + +-------+ +-------+---+ + + +---+ | | | + +---+ | dextrose 50 % in water IV 25 mL | | | 25 mL, intravenous, NEEDED, | | | Starting 09/24/18 at 2358, | | | Until 09/26/18 at 1947, CBG | | | less [...] PDT | | | | +-------+ +-------+---+---------+ + +---+ | | | [...] mg, intramuscular, | | | NEEDED, Starting Mon09/24/18 at | | | 2358, Until Mon09/26/18 at 1946, | | | CBG less than 70 mg/dL per Adult | | | Hypoglycemia Protocol | | + +---+ | | | + +---+ | glucose chewable tablet 16 g | | | 16 g, oral, NEEDED, Starting | | | Mon09/24/18 at 2358, Until Mon | | | 09/26/18 at 1946, CBG less than 70 | | | [...] +---+ | | | + +---+ + + + +---------+---+-------+ | lidocaine (LIDODERM) 5 % patch | Applied | 09/26/19 | 1 patch | | Chest | | 1 patch 1 patch, transdermal, | Patch | 19 2:32 | | | | | EVERY 24 HOURS, First dose on Mon | | PM PDT | | [...] | | | | | dose on 09/24/18 at 1845, Until | | AM PDT [...] | | | Mon09/26/18 at 0752, Until Wed | | | 09/26/18 at 1947, bloating | | + +---+ | | | + +---+ + +-------+ +-------+---+---+ | topiramate (TOPAMAX) tablet [...]
--- OUTSIDE RECORDS SUMMARY | ~2019-11-06 | XMS | Encounter Summary ---
Demographics + + + | Address | [address] | | | [place] [address] | + + + | Home Phone [...] Team Providers + +------+ + | Care Computer Game Programmer Name | Role | Phone | + [...] [place] | | | | | | [place], [place] | | | | | | [address] | | | | | | [phone] | | | | | | | | +--------+ + + + + | 11/17/ | Video/TeleH | Pain Management | Florencio Lockett, | | | 2019 | ealth-Sched | | PhD [address] | | | | uled | | [place], [place] | | | | | | [address] | | | | | | [phone] | | | | | | | | +--------+ + + + + | 12/01/ | Video/TeleH | Pain Management | Florencio Lockett, | | | 2019 | ealth-Sched | | PhD [address] | | | | uled | | [place], [place] | | | | | | [address] | | | | | | [phone] | | | | | | | | +--------+ + + + + | 01/06/ | Office | Plastic Surgery | Kuldip Harrell MD | | 2019 | Visit | | [address] | | | | | | [place], [place] | | | | | | [address] | | | | | | [phone] | | | | | | | | +--------+ + + + + documented as of this encounter Visit Diagnoses Not on filedocumented in this encounter"
--- OUTSIDE RECORDS SUMMARY | ~2019-11-06 | XMS | Encounter Summary ---
Demographics + + + | Address | [address] | | | [place] [address] | + + + | Home Phone [...] Team Providers + +------+ + | Care Underwriting Specialist Name | Role | Phone | [...] + + | 09/24/ | Hospital | [facility] [address] | Kenan Norton, | | | 2019 - | Encounter | [address] | [address] | | | | | [place], [place] | [place], [place] | | | 09/26/ | | [address] | [address] | | | 2018 | | [phone] | [phone] | | | | | | | [...] - 09/26/2018 10:36 AM PDT [facility] [address] RED SURGERY INPATIENT DISCHARGE SUMMARY Author: DIEGO [...] or Kefir, Stoneyfield Yogurt, and Chioban i Vincentian Yogurt are common brands with beneficial probiotics. [...] are available over the counter at most [facility] stores. Nausea/Vomiting/Difficulty Swallowing Nausea/Vomiting/Difficulty swallowing: Could be [...] hours per your instructions. Some medications, like [place], have Tylenol in it. Make sure you [...] (PCP) as this clinic does not provide [facility] chronic pain management services. When [...] hours by calling the surgery office at [phone]. - After hours, weekends and holidays, you may call the hospital radio control crane operator at [phone] an d have the special effects person Red Surgery Team paged. Destination Home Condition [...] Phone Center 10/02/2018 1:30 PM Indu Pisano [facility] at [facility] [phone] FOOD AND N UT 10/02/2018 2:20 PM Mehreen Koenig [facility] at [facility] [phone] [facility] 10/26/2018 8:30 AM Kenan Norton [facility] at [facility] [phone] [facility] 10/26/2018 9:00 AM Lisa Adam [facility] at [facility] [phone] FOOD AND NUT 12/21/2018 10:30 AM Pedro Sánchez [facility] at [facility] [phone] FOOD AND N UT 12/21/2018 11:20 AM Jody Watson [facility] at [facility] [phone] [facility] Discharging Physician: DIEGO Plascencia Attending Physician: Kenan Norton MD [facility] Red Surgery Pager# [phone] 10:37 AM 09/26/2018 documented in this enco [...] full liquid diet today - Seen by accounting consultant yesterday - dc MIVF - Encourage ambulation, [...] of DM2, GERD, HTN, HLD, LVH, and MHEUL on POD#1 s/p RYG B and lap [...] prescribed screening protocols as defined by the [facility] bariatric program including medic [...] Doxycycline Rash Percocet [Oxycodone-Acetaminophen] Nausea and Vomiting [place] Oil Hives and Nausea and Vomiting Seroquel [Quetiapine Fumarate] Suicidal Ideation Social History Narrative Lexiscan Myocardial Perfusion Study ([facility]) 02/19/2018 (see media): CHEST 2 VIEWS [...] [address] | | | | | | [place], [place] | | | | | | [address] | | | | | | [phone] | | | | | | | | +--------+ + + + + | 11/17/ | Video/TeleH | Pain Management | Florencio Lockett, | | | 2019 | ealth-Sched | | PhD [address] | | | | uled | | [place], [place] | | | | | | [address] | | | | | | [phone] | | | | | | | | +--------+ + + + + | 12/01/ | Video/TeleH | Pain Management | Florencio Lockett, | | | 2019 | ealth-Sched | | PhD [address] | | | | uled | | [place], [place] | | | | | | [address] | | | | | | [phone] | | | | | | | | +--------+ + + + + | 01/06/ | Office | Plastic Surgery | Kuldip Hrarell MD | | | 2019 | Visit | | [address] | | | | | | [place], [place] | | | | | | [address] | | | | | | [phone] | | | | | | | [...] + + + | PEE FORMAN | [address] | [place], [place] | | | [facility]ING [facility] | [address] | [address] | | | TESTS | | | [...] MARQUAM | [address] | [place], [place] | | | [facility] | [address] | [address] | | | TESTS | | | [...] - MARQUAM | [address] | [place], [place] | | | CHRISTINE POINT OF CARE | [address] | [address] | | | TESTS | | | [...] FORMAN | [address] | [place], [place] | | | [facility] | [address] | [address] | | | TESTS | | | [...] MARQUAM | [address] | [place], [place] | | | [facility] | [address] | [address] | | | TESTS | | | [...] + + | PEE FORMAN | [address] [facility] | [place], [place] | | | [facility]STINE [facility] | [address] | [address] | | | TESTS | | | | + + + + + EGD (ESOPHAGOGASTRODUODENOSCOPY) (09/24/2018 3:01 PM PDT) + + + | Narrative | Performed At | + + + | Kenan Norton MD 09/24/2018 3:26 PM Date of Procedure: | | | 09/24/18 Primary Surgeon: Kenan Norton MD Co Surgeon or | | | delivery driver assistant: Wendy Rawls MD; MIS Fellow Preoperative [...] | Anesthesia: General endotracheal anesthesia Staff: Codi PHOTOGRAPHIC PROCESS SCREEN MAKER: | | | Heather Zamorano Complications: none [...] limb and a | | | 60mm Peever stapler with white load was fired to create a | | | lxvu-nx-fgpt jejunojejunostomy. The anastamosis was confirmed to | | | be widely patent and hemostatic. The common enterotomy was closed | | | by firing an Peever 60mm stapler with white load across the [...] was | | | entered. The 60mm Peever stapler with blue load was placed and | | | fired transversely to start gastric pouch formation. The Peever | | | was then fired longitudinally towards the angle of His. Dissection | | | was performed retrogastric to connect posterior and anterior | | | dissection planes and ensure adequate fundus exclusion. Additional | | | fires of the Peever stapler were performed with blue loads to [...] | | the small bowel. The 60mm Peever stapler with blue load was then | [...] Kenan Norton MD, MS | | | Accounts Officer [facility] Bariatric Surgery | | + + + LAPAROSCOPIC CHOLECYSTECTOMY (09/24/2018 3:01 PM PDT) + + + | Narrative | Performed At | + + + | Kenan Norton MD 09/24/2018 3:26 PM Date of Procedure: | | | 09/24/18 Primary Surgeon: Kenan Norton MD Co Surgeon or | | | delivery driver assistant: Wendy Rawls MD; MIS Fellow Preoperative [...] | Anesthesia: General endotracheal anesthesia Staff: Codi PHOTOGRAPHIC PROCESS SCREEN MAKER: | | | Heather Zamorano Complications: none [...] limb and a | | | 60mm Peever stapler with white load was fired to create a | | | lqsx-yz-dmqe jejunojejunostomy. The anastamosis was confirmed to | | | be widely patent and hemostatic. The common enterotomy was closed | | | by firing an Peever 60mm stapler with white load across the [...] was | | | entered. The 60mm Peever stapler with blue load was placed and | | | fired transversely to start gastric pouch formation. The Peever | | | was then fired longitudinally towards the angle of His. Dissection | | | was performed retrogastric to connect posterior and anterior | | | dissection planes and ensure adequate fundus exclusion. Additional | | | fires of the Peever stapler were performed with blue loads to [...] | | the small bowel. The 60mm Peever stapler with blue load was then | [...] Kenan Norton MD, MS | | | Accounts Officer [facility] Bariatric Surgery | | + + + LAPAROSCOPIC GASTRIC BYPASS AND NOREEN-EN-Y GASTROENTEROSTOMY WITH NOREEN LIMB 150 CM OR LESS ( 09/24/2018 3:01 PM PDT) + + + | Narrative | Performed At | + + + | Kenna Norton MD 09/24/2018 3:26 PM Date of Procedure: | | | 09/24/18 Primary Surgeon: Kenan Norton MD Co Surgeon or | | | delivery driver assistant: Wendy Rawls MD; MIS Fellow Preoperative [...] | Anesthesia: General endotracheal anesthesia Staff: Codi PHOTOGRAPHIC PROCESS SCREEN MAKER: | | | Heather Zamorano Complications: none [...] limb and a | | | 60mm Peever stapler with white load was fired to create a | | | eekg-kt-tgrv jejunojejunostomy. The anastamosis was confirmed to | | | be widely patent and hemostatic. The common enterotomy was closed | | | by firing an Peever 60mm stapler with white load across the [...] was | | | entered. The 60mm Peever stapler with blue load was placed and | | | fired transversely to start gastric pouch formation. The Peever | | | was then fired longitudinally towards the angle of His. Dissection | | | was performed retrogastric to connect posterior and anterior | | | dissection planes and ensure adequate fundus exclusion. Additional | | | fires of the Peever stapler were performed with blue loads to [...] | | the small bowel. The 60mm Peever stapler with blue load was then | [...] | | of assistants at surgery in [facility] when qualified | | | residents [...] Kenan Norton MD, MS | | | Accounts Officer [facility] Bariatric Surgery | | + + [...] PATHOLOGY | Jane on | | | [facility] | | | 09/26/2018 at | | | Student FellowDwight | | | 12:10 PM | | | MD Jane, PhD | | | | | | | | | | | | PathologistPathology, | | | | | | [facility] | | | | | [...] number | | | | | | [id number]. Abdominal, | | | | | | [...] and | | | | | | hr representative sections | | | | | | from the fundus and body | | | | | | are submitted.A1, | | | | | | cystic duct margin en | | | | | | face, hr representative | | | | | | [...] | + + + + + | [facility] DEPARTMENT | [address] | [place] [address] | | | PATHOLOGY | [address] [...] (H) | 60 - 99 mg/dL | [facility] - | | | GLUCOSE, | [...] FORMAN | [address] | [place], [place] | | | [facility] | [facility] | [address] | | | TESTS | | | [...] MIKELYAYA | [address] | [place], [place] | | | TUSHAR KING [facility] | [address] | [address] | | | TESTS | | | [...]
--- OUTSIDE RECORDS SUMMARY | ~2019-11-06 | XMS | Encounter Summary ---
Demographics + + + | Address | [address] | | | [place] [address] | + + + | Home Phone | | + + + | Preferred Language | Unknown | + + + | Marital Status | | + + + | Yarsanism Affiliation | NRP | + + + [...] Providers + +------+ + | Care Music Coordinator Name | Role | Phone | [...] | 2018 | on | Center at [facility] [address] | | | | | | [address] [facility] | | | | | | for Health and | | | | | | Healing, [address] | | | | | | [place], [place] | | | | | | [address] | | | | | | [phone] | | | +--------+ + + + [...] | | 2019 | Visit | | [address] | | | | | | [place], [place] | | | | | | [address] | | | | | | [phone] | | | | | | | | +--------+ + + + + | 11/17/ | Video/TeleH | Pain Management | Florencio Lockett, | | | 2019 | ealth-Sched | | PhD [address] | | | | uled | | [place], [place] | | | | | | [address] | | | | | | [phone] | | | | | | | | +--------+ + + + + | 12/01/ | Video/TeleH | Pain Management | Florencio Lockett, | | | 2019 | ealth-Sched | | PhD [address] | | | | uled | | [place], [place] | | | | | | [address] | | | | | | [phone] | | | | | | | | +--------+ + + + + | 01/06/ | Office | Plastic Surgery | Kludip Harrell MD | | | 2019 | Visit | | [address] | | | | | | [place], [place] | | | | | | [address] | | | | | | [phone] | | | | | | | | +--------+ + + + + documented as of this encounter Visit Diagnoses Not on filedocumented in this encounter"
--- OUTSIDE RECORDS SUMMARY | ~2019-11-06 | XMS | Encounter Summary ---
Demographics + + + | Address | [address] | | | [place] [address] | + + + | Home Phone [...] Providers + +------+ + | Care Ticket Maker Name | Role | Phone | [...] Pharmacy | | | | | | [address] | | | | | | Loop [place], [place] | | | | | | [address] | | | | | | [phone] | | | +--------+ + + + [...] [place] | | | | | | [address] | | | | | | [phone] | | | | | | | | +--------+ + + + + | 11/17/ | Video/TeleH | Pain Management | Florencio Lockett, | | | 2019 | ealth-Sched | | PhD [address] | | | | uled | | [place], [place] | | | | | | [address] | | | | | | [phone] | | | | | | | | +--------+ + + + + | 12/01/ | Video/TeleH | Pain Management | Florencio Lockett, | | | 2019 | ealth-Sched | | PhD [address] | | | | uled | | [place], [place] | | | | | | [address] | | | | | | [phone] | | | | | | | | +--------+ + + + + | 01/06/ | Office | Plastic Surgery | Kuldip Harrell MD | | | 2020 | Visit | | [address] | | | | | | [place] | | | | | | [address] | | | | | | [phone] | | | | | | | | +--------+ + + + + documented as of this encounter Visit Diagnoses Not on filedocumented in this encounter"
--- OUTSIDE RECORDS SUMMARY | ~2019-11-06 | XMS | Encounter Summary ---
Demographics + + + | Address | [address] | | | [place] [address] | + + + | Home Phone [...] Team Providers + +------+ + | Care Iron Miner Blasting Name | Role | Phone | + [...] | Gastroesopha | [address] | | | | | geal reflux | [facility] | [place] for | | | | | disease, | Rd | Health and | | | | | esophagitis | [facility] [place] | Healing, | | | | | presence not | [address] | [address] | | | | | specified | Phone: | [place], [place] | | | | | Procedures | [phone] | [address] | | | | | CONSULT TO | Fax: | Phone: | | | | | GI PROCEDURE | [phone] | [phone] | | | | | UNIT: | [...] | | | | 24 HR PH [place] | | | | | | | ESOPHAGEAL | | | | | | | MOTILITY | | | | | | | STUDY | | | | | | | W/INTERP AND | | | | | | | REPORT [place] | | | | | | | G-ESOPH | | | | | | | REFLX TST | | | | | | | W/ELECTROD | | | +--------+--------+ + + + + Encounter Details +--------+ + + + + | Date | Type | Department | Care Team | Description | +--------+ + + + + | 01/11/ | Hospital | [facility] | Nurse, Gip [address] | | | 2018 | Encounter | [facility] [address] [facility] | | | | | [address] [facility] for | Road [place], [place] | | | | | Health and Healing, | [address] | | | | | Building [address] | | | | | | [place], [place] | | | | | | [address] | | | | | | [phone] | | | +--------+ + + + [...] [address] | | | | | | [place], [place] | | | | | | [address] | | | | | | [phone] | | | | | | | | +--------+ + + + + | 11/17/ | Video/TeleH | Pain Management | Florencio Lockett, | | | 2019 | ealth-Sched | | PhD [address] | | | | uled | | [place], [place] | | | | | | [address] | | | | | | [phone] | | | | | | | | +--------+ + + + + | 12/01/ | Video/TeleH | Pain Management | Florencio Lockett, | | | 2019 | ealth-Sched | | PhD [address] | | | | uled | | [place], [place] | | | | | | [address] | | | | | | [phone] | | | | | | | | +--------+ + + + + | 01/06/ | Office | Plastic Surgery | Kuldip Harrell MD | | 2019 | Visit | | [address] | | | | | | [place], [place] | | | | | | [address] | | | | | | [phone] | | | | | | | [...] + | MRN: | [facility] | | [id number] Date: 01/11/2018Patient Name: Maria De Jesus Gonzalez #: | ENDOSCOPY | | [id number] of : 1990CSN: [id number] Type: | | | OutpatientRoom: Motility RoomProcedure: [...]
--- OUTSIDE RECORDS SUMMARY | ~2019-11-06 | XMS | Encounter Summary ---
Demographics + + + | Address | [address] | | | [place] [address] | + + + | Home Phone [...] Team Providers + +------+ + | Care Corporate Concierge Name | Role | Phone | + +------+ + | Alisha Stovall PA-C | PCP | | + +------+ + Encounter Details +--------+ + + + + | Date | Type | Department | Care Team | Description | +--------+ + + + + | 02/20/ | MyChart | Digestive Health | | Bariatric online | | 2018 | Encounter | Center at [facility] [address] | | support group | | | | [address] [place] | | | | | | for Health and | | | | | | Healing, [address] | | | | | | [place], [place] | | | | | | [address] | | | | | | [phone] | | | +--------+ + + + [...] Ave | | | | | | [place], [place] | | | | | | [address] | | | | | | [phone] | | | | | | | | +--------+ + + + + | 11/17/ | Video/TeleH | Pain Management | Florencio Lockett, | | | 2019 | ealth-Sched | | PhD [address] | | | | uled | | [place], [place] | | | | | | [address] | | | | | | [phone] | | | | | | | | +--------+ + + + + | 12/01/ | Video/TeleH | Pain Management | Florencio Lockett, | | | 2019 | ealth-Sched | | PhD [address] | | | | uled | | [place], [place] | | | | | | [address] | | | | | | [phone] | | | | | | | | +--------+ + + + + | 01/06/ | Office | Plastic Surgery | Kuldip Harrell MD | | | 2020 | Visit | | [address] | | | | | | [place], [place] | | | | | | [address] | | | | | | [phone] | | | | | | | | +--------+ + + + + documented as of this encounter Visit Diagnoses Not on filedocumented in this encounter"
--- OUTSIDE RECORDS SUMMARY | ~2019-11-06 | XMS | Encounter Summary ---
Demographics + + + | Address | [address] | | | [place] [address] | + + + | Home Phone | | + + + | Preferred Language | Unknown | + + + | Marital Status | | + + + | Congregation Affiliation | Unknown | + + + | Race | Unknown | + + + | Ethnic Group | Unknown | + + + Author + + + | Author | [facility] | | | and [place] | + + + | Organization | [facility] | | | [...] [place], | | | | | [place] [address] | | + + + + + Care Team Providers + +------+ + | Care Bilingual Branch Manager Name | Role | Phone | [...] | [address], | [place] [address] | not intractable | | | | [place] [address] | [phone] | (Primary Dx) | | | | [phone] | | | +--------+---------+ + + + [...] Nonsteroidal anti-inflammatory drugs (such as ibuprofen, available fpiy-fsj-ahxldew) ? Beta-blockers ? Anticonvulsants ? Tricyclic antidepressants [...] of caffeine you consume. Date Last Reviewed: 08/22/201719997457-6899 [employer]. [address] [place] [address], [place] [address]. All righ ts reserved. This information is not intended as a substitute for professional medical care. Always follow your healthcare professional's instructions. documented in this encounter Progress Notes Caity Joel MD - 02/28/2019 9:00 AM PST Patient: Maria De Jesus Anna Medical Record: [id number] Date of Services: 02/28/2019 Referring Doctor: Alisha [...] an appointment to see her surgeon at [facility] in [facility]. Eating and drinking even only small amounts [...] and oriented to time, place, and person. [facility] is fluent. Memory, attention, comprehension, and general [...] CEREBELLAR EXAMINATION: There is no dysmetria on dfopga-ev-rkid test. IMPRESSION: 1. Migraine without aura and without status migrainosus, not intractable PLAN AND RECOMMENDATIONS: The patient's headaches have improved significantly on Topamax and we will keep her on her current dose. It appears that her headaches are triggered by her dietary issues and hopefully this will b e resolved in a few weeks. She will see her surgeon and a director council on aging at [facility] in [facility]. In the meantime, she will remain on Tylenol 2 tablets as needed for her headaches. She has tried triptans in the past but could not tolerate them. Once again, she was counseled ihs mirza excessive antalgic use. She was also strongly encouraged to follow up with her sleep position for a repeat sleep st udy following her bariatric surgery. We will continue to follow her purchase to come back to the neurology clinic in 4 months to see Shirley MENCHACA. More than 50% of this 30 minute visit was spent on rkkc-sr-awvp with the patient, shannon peck on the problems of taking madl-wvp-riiuugj analgesics excessively. Thank you for the opportunity [...] | 2019 | Visit | | [address] [place] | | | | | | [place] | | | | | | [address] | | | | | | [phone] | | | | | | | | +--------+---------+ + + + | 11/25/ | Office | Cardiology | Katheryn Hammonds DO | | | 2019 | Visit | | [address] | | | | | | [place] | | | | | | [id number] | | | | | | | [...]
--- OUTSIDE RECORDS SUMMARY | ~2019-11-06 | XMS | Encounter Summary ---
Demographics + + + | Address | [address] | | | [place] [address] | + + + | Home Phone [...] Team Providers + +------+ + | Care Job Lithographer Name | Role | Phone | + [...] | | 2020 | | Center at [facility] [address] | MD [address] | | | | | [address] [place] | [place], [place] | | | | | for Health and | [address] | | | | | [facility] 2 | [phone] | | | | | [place], [place] | | | | | | [address] | | | | | | [phone] | | | +--------+--------+ + + + [...] | | | | | | [facility] [place] | | | | | | [address] | | | | | | [phone] | | | | | | | | +--------+ + + + + | 11/17/ | Video/TeleH | Pain Management | Florencio Lockett, | | | 2019 | ealth-Sched | | PhD [address] | | | | uled | | [place], [place] | | | | | | [address] | | | | | | [phone] | | | | | | | | +--------+ + + + + | 12/01/ | Video/TeleH | Pain Management | Florencio Lockett, | | | 2019 | ealth-Sched | | PhD [address] | | | | uled | | [place], [place] | | | | | | [address] | | | | | | [phone] | | | | | | | | +--------+ + + + + | 01/06/ | Office | Plastic Surgery | Kuldip Harrell MD | | | 2019 | Visit | | [address] | | | | | | [place], [place] | | | | | | [address] | | | | | | [phone] | | | | | | | | +--------+ + + + + documented as of this encounter Visit Diagnoses Not on filedocumented in this encounter"
--- OUTSIDE RECORDS SUMMARY | ~2019-11-06 | XMS | Encounter Summary ---
Demographics + + + | Address | [address] | | | [place] [address] | + + + | Home Phone | | + + + | Preferred Language | Unknown | + + + | Marital Status | | + + + | Quaker Affiliation | Unknown | + + + | Race | Unknown | + + + | Ethnic Group | Unknown | + + + Author + + + | Author | [facility] | | | and [place] | + + + | Organization | [facility] | | | [...] [place], | | | | | [place] [address] | | + + + + + Care Team Providers + +------+ + | Care Senior Hris Analyst Name | Role | Phone | [...] | | | DR [address], | [address] | migrainosus (Primary | | | | [place] [address] | [phone] | Dx); Gastric bypass | | | | [phone] | | status for obesity | +--------+---------+ [...] Patient: Maria De Jesus Hernández Medical Record: [id number] Date of Services: 08/21/2019 Referring Doctor: Alisha [...] are intact. There is no dysmetria on cbtknz-vn-prer. There are no abnormal or extraneous movements. [...] [place] | | | | | | [address] | | | | | | [phone] | | | | | | | | +--------+---------+ + + + | 11/25/ | Office | Cardiology | Katheryn Hammonds DO | | | 2019 | Visit | | [address] | | | | | | [place] | | | | | | [address] | | | | | | | [...]
--- OUTSIDE RECORDS SUMMARY | ~2019-11-06 | XMS | Encounter Summary ---
Demographics + + + | Address | [address] | | | [place] [address] | + + + | Home Phone [...] Team Providers + +------+ + | Care Nursing Agency Manager Name | Role | Phone | + +------+ + | Alisha Stovall PA-C | PCP | | + +------+ + Encounter Details +--------+ + + + + | Date | Type | Department | Care Team | Description | +--------+ + + + + | 11/29/ | Inside | [facility] | Joe Watson ACNP | | | 2018 | Referral | [facility] [address] | [address] | | | | Order | [facility] [place] for | [address] [place], | | | | | Health and Healing, | [place] [address] | | | | | Building [address] | [phone] | | | | | [place], [place] | | | | | | [address] | | | | | | [phone] | | | +--------+ + + + [...] [address] | | | | | | [place], [place] | | | | | | [address] | | | | | | [phone] | | | | | | | | +--------+ + + + + | 11/17/ | Video/TeleH | Pain Management | Florencio Lockett, | | | 2019 | ealth-Sched | | PhD [address] | | | | uled | | [place], [place] | | | | | | [address] | | | | | | [phone] | | | | | | | | +--------+ + + + + | 12/01/ | Video/TeleH | Pain Management | Florencio Lockett G, | | | 2020 | ealth-Sched | | PhD [address] | | | | uled | | [place], [place] | | | | | | [address] | | | | | | [phone] | | | | | | | | +--------+ + + + + | 01/06/ | Office | Plastic Surgery | Kuldip Harrell MD | | | 2019 | Visit | | [address] | | | | | | [place], [place] | | | | | | [address] | | | | | | [phone] | | | | | | | | +--------+ + + + + documented as of this encounter Results PH RETURN (01/11/2018 5:27 PM PDT) + + | Specimen | + + | | + + + +- + | Narrative | Performed At | + +- + | MRN: | [facility] | | [id number] Date: 01/12/2018Patient Name: Maria De Jesus Gonzalez #: | ENDOSCOPY | | [id number] of : 1990CSN: [id number] Type: | | | OutpatientRoom: Motility RoomProcedure: [...] + | MRN: | [facility] | | [id number] Date: 01/11/2018Patient Name: Maria De Jesus Gonzalez #: | ENDOSCOPY | | [id number] of : 1990CSN: [id number] Type: | | | OutpatientRoom: Motility RoomProcedure: [...]
--- OUTSIDE RECORDS SUMMARY | ~2019-11-06 | XMS | Encounter Summary ---
Demographics + + + | Address | [address] | | | [place] [address] | + + + | Home Phone [...] Team Providers + +------+ + | Care Research Electrician Name | Role | Phone | [...] Center | [facility] [place] | | | | | for Health and | [address] | | | | | Healing, [address] | [phone] | | | | | [place], [place] | | | | | | [address] | | | | | | | [...] [address] | | | | | | [place], [place] | | | | | | [address] | | | | | | [phone] | | | | | | | | +--------+ + + + + | 11/17/ | Video/TeleH | Pain Management | Florencio Lockett, | | | 2019 | ealth-Sched | | PhD [address] | | | | uled | | [place], [place] | | | | | | [address] | | | | | | [phone] | | | | | | | | +--------+ + + + + | 12/01/ | Video/TeleH | Pain Management | Florencio Lockett, | | | 2019 | ealth-Sched | | PhD [address] | | | | uled | | [place], [place] | | | | | | [address] | | | | | | [phone] | | | | | | | | +--------+ + + + + | 01/06/ | Office | Plastic Surgery | Kuldip Harrell MD | | | 2019 | Visit | | [address] | | | | | | [place], [place] | | | | | | [address] | | | | | | [phone] | | | | | | | | +--------+ + + + + documented as of this encounter Visit Diagnoses Not on filedocumented in this encounter"
--- OUTSIDE RECORDS SUMMARY | ~2019-11-06 | XMS | Encounter Summary ---
Demographics + + + | Address | [address] | | | [place] [address] | + + + | Home Phone [...] Team Providers + +------+ + | Care Asset Protection Lead Name | Role | Phone | [...] | | [place] [facility] for | [facility] [place] | | | | | Health and Healing, | [address] | | | | | [address] | [phone] | | | | | Floor [place], [place] | | | | | | [address] | | | | | | [phone] | | | +--------+ + + + [...] Ave | | | | | | [place], [place] | | | | | | [address] | | | | | | [phone] | | | | | | | | +--------+ + + + + | 11/17/ | Video/TeleH | Pain Management | Florencio Lockett, | | | 2019 | ealth-Sched | | PhD [address] | | | | uled | | [place], [place] | | | | | | [address] | | | | | | [phone] | | | | | | | | +--------+ + + + + | 12/01/ | Video/TeleH | Pain Management | Florencio Lockett, | | | 2019 | ealth-Sched | | PhD [address] | | | | uled | | [place], [place] | | | | | | [address] | | | | | | [phone] | | | | | | | | +--------+ + + + + | 01/06/ | Office | Plastic Surgery | Kuldip Harrell MD | | | 2019 | Visit | | [address] | | | | | | [place], [place] | | | | | | [address] | | | | | | [phone] | | | | | | | [...] images. Fluoro Time: 60 sec FINDINGS: Initial rig builder | | | radiograph demonstrates surgical sutures [...] Service Account, Radiant Res In Interface - 05/03/2019 5:32 PM [...] Time: 60 sec | | FINDINGS: Initial rig builder radiograph demonstrates surgical sutures over the left [...]
--- OUTSIDE RECORDS SUMMARY | ~2019-11-06 | XMS | Encounter Summary ---
Demographics + + + | Address | [address] | | | [place] [address] | + + + | Home Phone [...] Author + + + | Author | [facility] | + + + | Organization | [facility] | + + + | Address | Unknown | + + + | Phone | Unavailable | + + + Support + + +---------+ + | Name | Relationship | Address | Phone | + + +---------+ + | Jeovanny Hernández | ECON | Unknown | | + + +---------+ + Care Team Providers + +------+ + | Care Group Contract Analyst Name | Role | Phone | [...] Pharmacy | | | | | | [address] | | | | | | [place], [place] | | | | | | [address] | | | | | | [phone] | | | +--------+ + + + [...] Ave | | | | | | [place], [place] | | | | | | [address] | | | | | | [phone] | | | | | | | | +--------+ + + + + | 11/17/ | Video/TeleH | Pain Management | Florencio Lockett, | | | 2019 | ealth-Sched | | PhD [address] | | | | uled | | [place], [place] | | | | | | [address] | | | | | | [phone] | | | | | | | | +--------+ + + + + | 12/01/ | Video/TeleH | Pain Management | Florencio Lockett, | | | 2019 | ealth-Sched | | PhD [address] | | | | uled | | [place], [place] | | | | | | [address] | | | | | | [phone] | | | | | | | | +--------+ + + + + | 01/06/ | Office | Plastic Surgery | Kuldip Harrell MD | | | 2020 | Visit | | [address] | | | | | | [place] | | | | | | [address] | | | | | | [phone] | | | | | | | | +--------+ + + + + documented as of this encounter Visit Diagnoses Not on filedocumented in this encounter"
--- OUTSIDE RECORDS SUMMARY | ~2019-11-06 | XMS | Encounter Summary ---
Demographics + + + | Address | [address] | | | [place] [address] | + + + | Home Phone [...] Team Providers + +------+ + | Care Hospital Security Officer Name | Role | Phone [...] | 2019 | Encounter | Center at [facility] [address] | [address] | regarding [address] | | | | [address] | [place], | [place], [place] | | | | for Health and | [place] [address] | | | | | Healing, [address] | [phone] | | | | | [place], [place] | | | | | | [address] | | | | | | [phone] | | | +--------+ + + + [...] [address] | | | | | | [place], [place] | | | | | | [address] | | | | | | [phone] | | | | | | | | +--------+ + + + + | 11/17/ | Video/TeleH | Pain Management | Florencio Lockett, | | | 2019 | ealt-Sched | | PhD [address] | | | | uled | | [place], [place] | | | | | | [address] | | | | | | [phone] | | | | | | | | +--------+ + + + + | 12/01/ | Video/TeleH | Pain Management | Florencio Lockett, | | | 2019 | ealth-Sched | | PhD [address] | | | | uled | | [place], [place] | | | | | | [address] | | | | | | [phone] | | | | | | | | +--------+ + + + + | 01/06/ | Office | Plastic Surgery | Kuldip Harrell MD | | | 2019 | Visit | | [address] | | | | | | [place], [place] | | | | | | [address] | | | | | | [phone] | | | | | | | | +--------+ + + + + documented as of this encounter Visit Diagnoses Not on filedocumented in this encounter"
--- OUTSIDE RECORDS SUMMARY | ~2019-11-06 | XMS | Encounter Summary ---
Demographics + + + | Address | [address] | | | [place] [address] | + + + | Home Phone [...] Providers + +------+ + | Care Vendor Management Associate Name | Role | Phone | + +------+ + | Alisha Stovall PA-C | PCP | | + +------+ + Encounter Details +--------+ + + + + | Date | Type | Department | Care Team | Description | +--------+ + + + + | 08/08/ | MyChart | Digestive Health | | labs | | 2020 | Encounter | Center at [facility] [address] | | | | | | [address] [facility] | | | | | | for Health and | | | | | | Healing, [address] | | | | | | [place], [place] | | | | | | [address] | | | | | | [phone] | | | +--------+ + + + [...] [address] | | | | | | [place], [place] | | | | | | [address] | | | | | | [phone] | | | | | | | | +--------+ + + + + | 11/17/ | Video/TeleH | Pain Management | Florencio Lockett, | | | 2019 | ealth-Sched | | PhD [address] | | | | uled | | [place], [place] | | | | | | [address] | | | | | | [phone] | | | | | | | | +--------+ + + + + | 12/01/ | Video/TeleH | Pain Management | Florencio Lockett, | | | 2019 | ealth-Sched | | PhD [address] | | | | uled | | [facility] [place] | | | | | | [address] | | | | | | [phone] | | | | | | | | +--------+ + + + + | 01/06/ | Office | Plastic Surgery | Kuldip Harrell MD | | | 2019 | Visit | | [address] | | | | | | [place], [place] | | | | | | [address] | | | | | | [phone] | | | | | | | | +--------+ + + + + documented as of this encounter Visit Diagnoses Not on filedocumented in this encounter"
--- OUTSIDE RECORDS SUMMARY | ~2019-11-06 | XMS | Encounter Summary ---
Demographics + + + | Address | [address] | | | [place] [address] | + + + | Home Phone [...] Team Providers + +------+ + | Care Analysis Reporting Developer Name | Role | Phone | + +------+ + | Alisha Stvoall PA-C | PCP | | + +------+ + Encounter Details +--------+ + + + + | Date | Type | Department | Care Team | Description | +--------+ + + + + | 02/12/ | Abstract | Cardiology | Sarah Barba | | | 2018 | | Preventive at [facility] | SHANICE Villafuerte [address] | | | | | [address] | [address] [place], | | | | | [facility] | [place] [address] | | | | | and [place], | [phone] | | | | | Building [address] | | | | | | [place], [place] | | | | | | [address] | | | | | | [phone] | | | +--------+ + + + [...] [address] | | | | | | [place], [place] | | | | | | [address] | | | | | | [phone] | | | | | | | | +--------+ + + + + | 11/17/ | Video/TeleH | Pain Management | Florencio Lockett, | | | 2019 | ealth-Sched | | PhD [address] | | | | uled | | [place], [place] | | | | | | [address] | | | | | | [phone] | | | | | | | | +--------+ + + + + | 12/01/ | Video/TeleH | Pain Management | Florencio Lockett G, | | | 2019 | ealth-Sched | | PhD [address] | | | | uled | | [place], [place] | | | | | | [address] | | | | | | [phone] | | | | | | | | +--------+ + + + + | 01/06/ | Office | Plastic Surgery | Kuldip Harrell MD | | | 2019 | Visit | | [address] | | | | | | [place], [place] | | | | | | [address] | | | | | | [phone] | | | | | | | | +--------+ + + + + documented as of this encounter Visit Diagnoses Not on filedocumented in this encounter"
--- OUTSIDE RECORDS SUMMARY | ~2019-11-06 | XMS | Encounter Summary ---
Demographics + + + | Address | [address] | | | [place] [address] | + + + | Home Phone [...] Providers + +------+ + | Care Corporate Counselor Name | Role | Phone | [...] | +--------+ + + + + | 10/17/ | Telephone | Digestive Health | Lisa [address] | Bariatric Nutrition | | 2018 | | [place] [address] [address] | [address] | | | | | S [facility] | [address] [place], | | | | | [facility] and | [place] [address] | | | | | [place] [address] | [phone] | | | | | [place], [place] | | | | | | [address] | | | | | | [phone] | | | +--------+ + + + [...] | | 2019 | Visit | | [address] | | | | | | [place], [place] | | | | | | [address] | | | | | | [phone] | | | | | | | | +--------+ + + + + | 11/17/ | Video/TeleH | Pain Management | Florencio Lockett, | | | 2019 | ealth-Sched | | PhD [address] | | | | uled | | [place], [place] | | | | | | [address] | | | | | | [phone] | | | | | | | | +--------+ + + + + | 12/01/ | Video/TeleH | Pain Management | Florencio Lockett, | | | 2019 | ealth-Sched | | PhD [address] | | | | uled | | [place], [place] | | | | | | [address] | | | | | | [phone] | | | | | | | | +--------+ + + + + | 01/06/ | Office | Plastic Surgery | Kuldip Harrell MD | | | 2019 | Visit | | [address] | | | | | | [place], [place] | | | | | | [address] | | | | | | [phone] | | | | | | | | +--------+ + + + + documented as of this encounter Visit Diagnoses Not on filedocumented in this encounter"
--- OUTSIDE RECORDS SUMMARY | ~2019-11-06 | XMS | Encounter Summary ---
Demographics + + + | Address | [address] | | | [place] [address] | + + + | Home Phone [...] Team Providers + +------+ + | Care Shoelace Tipping Machine Operator Name | Role | Phone | + +------+ + | Alisha Stovall PA-C | PCP | | + +------+ + Reason for Visit + + + | Reason | Comments | + + + | Outside Records | GI notes | | Received | | + + + Encounter Details +--------+ + + + + | Date | Type | Department | Care Team | Description | +--------+ + + + + | 11/21/ | Abstract | Digestive Health | Jody Watson ACNP | Outside Records | | 2018 | | Center at [facility] [address] | [address] | Received (GI notes) | | | | [address] [facility] | [address] [place], | | | | | for Health and | [place] [address] | | | | | [facility], [facility] 2 | [phone] | | | | | [place], [place] | | | | | | [address] | | | | | | [phone] | | | +--------+ + + + [...] [address] | | | | | | [place], [place] | | | | | | [address] | | | | | | [phone] | | | | | | | | +--------+ + + + + | 11/17/ | Video/TeleH | Pain Management | Florencio Lockett, | | | 2019 | ealth-Sched | | PhD [address] | | | | uled | | [place], [place] | | | | | | [address] | | | | | | [phone] | | | | | | | | +--------+ + + + + | 12/01/ | Video/TeleH | Pain Management | Florencio Lockett, | | | 2019 | ealth-Sched | | PhD [address] | | | | uled | | [place], [place] | | | | | | [address] | | | | | | [phone] | | | | | | | | +--------+ + + + + | 01/06/ | Office | Plastic Surgery | Kuldip Harrell MD | | | 2019 | Visit | | [address] | | | | | | [place], [place] | | | | | | [address] | | | | | | [phone] | | | | | | | | +--------+ + + + + documented as of this encounter Visit Diagnoses Not on filedocumented in this encounter"
--- OUTSIDE RECORDS SUMMARY | ~2019-11-06 | XMS | Encounter Summary ---
Demographics + + + | Address | [address] | | | [place] [address] | + + + | Home Phone | | + + + | Preferred Language | Unknown | + + + | Marital Status | | + + + | Religion Affiliation | Unknown | + + + | Race | Unknown | + + + | Ethnic Group | Unknown | + + + Author + + + | Author | [facility] | | | and [place] | + + + | Organization | [facility] | | | and [place] | + [...] [place], | | | | | [place] [address] | | + + + + + Care Team Providers + +------+ + | Care Boiler Operators Supervisor Name | Role | Phone | [...] + + | 10/09/ | Office | AURE ELVIRANED | Jace, | Intractable migraine | | 2019 | Visit | HOSPITAL [facility]UROLOGY | Matt, RN [address] | without aura and | | | | CLINIC [address] | [address] [facility], | without status | | | | [place], | [place] [address] | migrainosus | | | | [place] [address] | [phone] | | | | | [phone] | | | +--------+---------+ + + + [...] before each headache. Show this to your [facility] provider to help find the cause of [...] Difficulty talking or seeing Date Last Reviewed: 11/23/201519991252-8448 [employer]. [address] [place] [address], [place] [address]. All righ ts reserved. This information is [...] out of the light. Wear dark glasses, turning and beading machine operator lights, and close the curtains. When outdoors, [...] changes dur ing menstruation. Date Last Reviewed: 03/24/201719997160-2314 [employer]. [address] [place] [address], [place] [address]. All righ ts reserved. This information is [...] headaches in a woman Date Last Reviewed: 04/24/201719990736-2551 [employer]. [address] [place] [address]. All [facility] ts reserved. This information is not intended as a substitute for professional medical care. Always follow your healthcare professional's instructions. documented in this encounter Progress Notes Matt Mccormick FNP - 10/09/2018 8:15 AM PDT Patient: Maria De Jesus Anna Medical Record: [id number] Date of Services: 10/09/2018 Referring Doctor: Alisha [...] are intact. There is no dysmetria on xbplcn-of-fxjv and qnfy-rdap-iicx. There are no abnormal or extraneous movements. [...] least 30 minutes three times a w [place] will help reduce frequency or severity of [...] [place] | | | | | | [address] | | | | | | [phone] | | | | | | | | +--------+---------+ + + + | 11/25/ | Office | Cardiology | Katheryn Hammonds DO | | | 2019 | Visit | | [address] | | | | | | [place], [place] | | | | | | [address] | | | | | | | [...]
--- OUTSIDE RECORDS SUMMARY | ~2019-11-06 | XMS | Encounter Summary ---
Demographics + + + | Address | [address] | | | [place] [address] | + + + | Home Phone [...] Team Providers + +------+ + | Care Radial Router Operator Name | Role | Phone | + +------+ + | Alisha Stovall PA-C | PCP | | + +------+ + Encounter Details +--------+ + + + + | Date | Type | Department | Care Team | Description | +--------+ + + + + | 03/07/ | Abstract | Digestive Health | Clinic, Surgery | | | 2017 | | [place] [address] [address] | | | | | | [address] [facility] | | | | | | for Health and | | | | | | Healing, Building [address] | | | | | | [place], [place] | | | | | | [address] | | | | | | [phone] | | | +--------+ + + + [...] Ave | | | | | | [place], [place] | | | | | | [address] | | | | | | [phone] | | | | | | | | +--------+ + + + + | 11/17/ | Video/TeleH | Pain Management | Florencio Lockett, | | | 2019 | ealth-Sched | | PhD [address] | | | | uled | | [place], [place] | | | | | | [address] | | | | | | [phone] | | | | | | | | +--------+ + + + + | 12/01/ | Video/TeleH | Pain Management | Florencio Lockett, | | | 2019 | ealth-Sched | | PhD [address] | | | | uled | | [place], [place] | | | | | | [address] | | | | | | [phone] | | | | | | | | +--------+ + + + + | 01/06/ | Office | Plastic Surgery | Kuldip Harrell MD | | | 2020 | Visit | | [address] | | | | | | [place], [place] | | | | | | [address] | | | | | | [phone] | | | | | | | | +--------+ + + + + documented as of this encounter Visit Diagnoses Not on filedocumented in this encounter"
--- OUTSIDE RECORDS SUMMARY | ~2019-11-06 | XMS | Encounter Summary ---
Demographics + + + | Address | [address] | | | [place] [address] | + + + | Home Phone [...] Team Providers + +------+ + | Care Process Equipment Operator Name | Role | Phone | + +------+ + PCP | Unavailable | + +------+ + Encounter Details +--------+ + + + + | Date | Type | Department | Care Team | Description | +--------+ + + + + | 08/04/ | Abstract | Digestive Health | Clinic, Surgery | | | 2018 | | Center at [facility] [address] | | | | | | [facility] | | | | | | for Health and | | | | | | Healing, Building [address] | | | | | | [place], [place] | | | | | | [address] | | | | | | [phone] | | | +--------+ + + + [...] [address] | | | | | | [place], [place] | | | | | | [address] | | | | | | [phone] | | | | | | | | +--------+ + + + + | 11/17/ | Video/TeleH | Pain Management | Florencio Lockett, | | | 2019 | ealth-Sched | | PhD [address] | | | | uled | | [place], [place] | | | | | | [address] | | | | | | [phone] | | | | | | | | +--------+ + + + + | 12/01/ | Video/TeleH | Pain Management | Florencio Lockett, | | | 2019 | ealth-Sched | | PhD [address] | | | | uled | | [place], [place] | | | | | | [address] | | | | | | [phone] | | | | | | | | +--------+ + + + + | 01/06/ | Office | Plastic Surgery | Kuldip Harrell MD | | | 2019 | Visit | | [address] | | | | | | [place], [place] | | | | | | [address] | | | | | | [phone] | | | | | | | | +--------+ + + + + documented as of this encounter Visit Diagnoses Not on filedocumented in this encounter"
--- OUTSIDE RECORDS SUMMARY | ~2019-11-06 | XMS | Encounter Summary ---
Demographics + + + | Address | [address] | | | [place] [address] | + + + | Home Phone [...] Team Providers + +------+ + | Care Project Structural Engineer Name | Role | Phone | [...] 02/14/ | Documentati | PEE W[facility] at [facility] | Lab, Gi Procedure | Medical Records | | 2019 | on | [place] [address] | | Review | | | | [address] [facility] for | | | | | | Health and Healing, | | | | | | Building [address] | | | | | | [place], [place] | | | | | | [address] | | | | | | [phone] | | | +--------+ + + + [...] [address] | | | | | | [facility] [place] | | | | | | [address] | | | | | | [phone] | | | | | | | | +--------+ + + + + | 11/17/ | Video/TeleH | Pain Management | Florencio Lockett, | | | 2019 | ealth-Sched | | PhD [address] | | | | uled | | [place], [place] | | | | | | [address] | | | | | | [phone] | | | | | | | | +--------+ + + + + | 12/01/ | Video/TeleH | Pain Management | Florencio Lockett, | | | 2019 | ealth-Sched | | PhD [address] | | | | uled | | [place], [place] | | | | | | [address] | | | | | | [phone] | | | | | | | | +--------+ + + + + | 01/06/ | Office | Plastic Surgery | Kuldip Harrell MD | | | 2019 | Visit | | [address] | | | | | | [place], [place] | | | | | | [address] | | | | | | [phone] | | | | | | | | +--------+ + + + + documented as of this encounter Visit Diagnoses Not on filedocumented in this encounter"
--- OUTSIDE RECORDS SUMMARY | ~2019-11-06 | XMS | Encounter Summary ---
Demographics + + + | Address | [address] | | | [place] [address] | + + + | Home Phone [...] Team Providers + +------+ + | Care Assembler Unit Name | Role | Phone | + [...] | 2019 | Visit | Center at [facility] [address] | MD [address] | (Primary Dx) | | | | [address] | [place], [place] | | | | | [facility] and | [address] | | | | | [facility], [facility] 2 | [phone] | | | | | [place], [place] | | | | | | [address] | | | | | | [phone] | | | +--------+---------+ + + + [...] fiancee 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 SUPPLEMENTS: Hasn't been taking, can't afford [...] [address] | | | | | | [place], [place] | | | | | | [address] | | | | | | [phone] | | | | | | | | +--------+ + + + + | 11/17/ | Video/TeleH | Pain Management | Florencio Lockett, | | | 2019 | ealth-Sched | | PhD [address] | | | | uled | | [place], [place] | | | | | | [address] | | | | | | [phone] | | | | | | | | +--------+ + + + + | 12/01/ | Video/TeleH | Pain Management | Floerncio Lockett, | | | 2019 | ealth-Sched | | PhD [address] | | | | uled | | [place], [place] | | | | | | [address] | | | | | | [phone] | | | | | | | | +--------+ + + + + | 01/06/ | Office | Plastic Surgery | Kuldip Harrell MD | | | 2019 | Visit | | [address] | | | | | | [place], [place] | | | | | | [address] | | | | | | [phone] | | | | | | | [...] images. Fluoro Time: 60 sec FINDINGS: Initial ditch cleaner | | | radiograph demonstrates surgical sutures [...] Time: 60 sec | | FINDINGS: Initial ditch cleaner radiograph demonstrates surgical sutures over the left [...] | [facility] | [address] | [place] [address] | | | [facility] | | | | | HEALTH [...] INTFC | | | | determined by [employer] | | | | | | Laboratories. See | | | | | | Compliance Statement B: | | | | | | ebridge.[employer]regrine Diamonds/CSPerformed | | | | | | by [employer],[address] | | | | | | [place], [place] [facility],[place] | | | | | | [address] | | | | | | [phone]. | | | | | | [facility] centerJosué MD, | | | | [...] [facility] | [address] | [place], [place] | | | UNIV PTH - INTFC | | [address] | | + + + + + [...] | | | | | determined by [employer] | | | | | | Laboratories. See | | | | | | Compliance Statement B: | | | | | | ebridge.[employer]regrine Diamonds/CSPerformed | | | | | | by [employer],[address] | | | | | | [facility] | | | | | | [address] | | | | | | [phone]. | | | | | | [facility] centerJosué MD, | | | | [...] [facility] | [address] | [place], [place] | | | UNIV PTH - INTFC | | [address] | | + + + + + [...] | + + + + + | [facility] | [address] | [place] [address] | | | SERVICES, CORE | SAMMI [...] | + + + + + | [facility] | [address] | [place] [address] | | | SERVICES, CORE | SAMMI [...] B: | | | | | | [email or web address]/CSPerformed | | | | | | by [employer],[address] | | | | | | [place], [place] [facility] [place] | | | | | | [address] | | | | | | [phone]. | | | | | | [facility] centerJosué MD, | | | | [...] [facility] | [address] | [place], [place] | | | UNIV PTH - INTFC | | [address] | | + + + + + [...] [facility] | | | (PAULIE EMMANUEL) | [employer],[address] | | REG UNIV | | | SERUM | [place], [place] [facility] [place] | | PTH - INTFC | | | | [address] | | | | | | [phone]. | | | | | | comJosué [...] B: | | | | | | ebridge.Peregrine Diamonds/CS | | | | + + + + + + + + | Specimen | + + | Blood - Blood | | (substance) | + + + + + + + | Performing | Address | City/State/Zipcode | Phone Number | | Organization | | | | + + + + + | [facility] | [address] | [place], [place] | | | UNIV PTH - INTFC | | [address] | | + + + + + [...] | | | | | determined by [employer] | | | | | | Laboratories. See | | | | | | Compliance Statement B: | | | | | | [facility]/CSPerformed | | | | | | by [employer],[address] | | | | | | [place], [place] | | | | | | [address] | | | | | | [phone]. | | | | | | Josué [...] [facility] | [address] | [place], [place] | | | UNIV PTH - INTFC | | [address] | | + + + + + [...] [facility] | [address] | [place] [address] | | | SERVICES, CORE | SAMMI [...] | + + + + + | [facility] | [address] | [place] [address] | | | SERVICES, SPECIAL | SAMMI [...] | + + + + + | [facility] | [address] | [place] [address] | | | SERVICES, CORE | SAMMI [...] B: | | | | | | [email or web address]/CSPerformed | | | | | | by [employer],[address] | | | | | | [place], [place] | | | | | | [address] | | | | | | [phone]. | | | | | | Josué [...] [facility] | [address] | [place], [place] | | | UNIV PTH - INTFC | | [address] | | + + + + + [...] | | | LABORATORY | | | CYPRIOT | | | SERVICES, | | | [...] + | [facility] | [address] | [place] [address] | | | [facility] | | | | | HEALTH + [...] Vitamin B12 1 Mg/ml | Given | 04/15/20 | 1 mL | | Right | | Intramuscular | | 19 16:00 | | | Arm | | | | PST | | | | + +--------+ +------+------+--------+ +---+---+ | | | +---+---+ documented in this encounter
--- OUTSIDE RECORDS SUMMARY | ~2019-11-06 | XMS | Encounter Summary ---
Demographics + + + | Address | [address] | | | [place] [address] | + + + | Home Phone [...] Providers + +------+ + | Care Manager Linux Name | Role | Phone | + [...] | | 2018 | | Center at [facility] [address] | | up visit with Cierra | | | | [address] [facility] | | after UGI) | | | | for Health and | | | | | | [facility] 2 | | | | | | [place], [place] | | | | | | [address] | | | | | | [phone] | | | +--------+ + + + [...] [address] | | | | | | [place], [place] | | | | | | [address] | | | | | | [phone] | | | | | | | | +--------+ + + + + | 11/17/ | Video/TeleH | Pain Management | Florencio Lockett, | | | 2019 | ealth-Sched | | PhD [address] | | | | uled | | [place], [place] | | | | | | [address] | | | | | | [phone] | | | | | | | | +--------+ + + + + | 12/01/ | Video/TeleH | Pain Management | Florencio Lockett, | | | 2019 | ealth-Sched | | PhD [address] | | | | uled | | [place], [place] | | | | | | [address] | | | | | | [phone] | | | | | | | | +--------+ + + + + | 01/06/ | Office | Plastic Surgery | Kuldip Harrell MD | | | 2019 | Visit | | [address] | | | | | | [place], [place] | | | | | | [address] | | | | | | [phone] | | | | | | | | +--------+ + + + + documented as of this encounter Visit Diagnoses Not on filedocumented in this encounter"
--- OUTSIDE RECORDS SUMMARY | ~2019-11-06 | XMS | Encounter Summary ---
Demographics + + + | Address | [address] | | | [place] [address] | + + + | Home Phone [...] Providers + +------+ + | Care Dry Dip Worker Name | Role | Phone | [...] | Center at [facility] [address] | | (Primary Dx) | | | | [address] | | | | | | for Health and | | | | | | Healing, Building [address] | | | | | | [place], [place] | | | | | | [address] | | | | | | [phone] | | | +--------+---------+ + + + [...] of Class: 2:00/3:00 until 3:00/4:00 (60 minutes iffr-mk-wezb with patient) OBJECTIVE: Height: Ht Readings from [...] or sharing information. Yes Lisa Medina RD, [facility], [facility] Bariatrics [phone] documented in this enco unter Plan of Treatment +--------+ + + + + | Date | Type | Specialty | Care Team | Description | +--------+ + + + + | 11/13/ | Office | Gastroenterology | Cassidy Schneider, | | | 2019 | Visit | | [address] | | | | | | [place], [place] | | | | | | [address] | | | | | | [phone] | | | | | | | | +--------+ + + + + | 11/17/ | Video/TeleH | Pain Management | Florencio Lockett, | | | 2019 | ealth-Sched | | PhD [address] | | | | uled | | [place], [place] | | | | | | [address] | | | | | | [phone] | | | | | | | | +--------+ + + + + | 12/01/ | Video/TeleH | Pain Management | Florencio Lockett, | | | 2019 | ealt-Sched | | PhD [address] | | | | uled | | [place], [place] | | | | | | [address] | | | | | | [phone] | | | | | | | | +--------+ + + + + | 01/06/ | Office | Plastic Surgery | Kuldip Harrell MD | | | 2019 | Visit | | [address] | | | | | | [place], [place] | | | | | | [address] | | | | | | [phone] | | | | | | | | +--------+ + + + + documented as of this encounter Visit Diagnoses + + | Diagnosis | + + | Morbid obesity (HCC) - Primary Morbid obesity | + + documented in this encounter
--- OUTSIDE RECORDS SUMMARY | ~2019-11-06 | XMS | Encounter Summary ---
Demographics + + + | Address | [address] | | | [place] [address] | + + + | Home Phone [...] Providers + +------+ + | Care Senior Financial Name | Role | Phone | + [...] [place]o | | | | | [facility] | [address] | | | | | Hospital Admitting | [place], [place] | | | | | Desk Located on the | [address] | | | | | 9th floor | [phone] | | | | | [place], [place] | | | | | | [address] | Heather Zamorano CRNA | | | | | | [address] | | | | | | [place], | | | | | | [place] [address] | | | | | | [phone] | | | | | | | [...] g; None; No; Positive; | Heather Zamorano, AGRICULTURAL PILOT | Brii Pulido RN | | IV [...] | | 2020 | Visit | | [address] | | | | | | [place], [place] | | | | | | [address] | | | | | | [phone] | | | | | | | | +--------+ + + + + | 11/17/ | Video/TeleH | Pain Management | Flroencio Lockett, | | | 2019 | ealth-Sched | | PhD [address] | | | | uled | | [place], [place] | | | | | | [address] | | | | | | [phone] | | | | | | | | +--------+ + + + + | 12/01/ | Video/TeleH | Pain Management | Florencio Lockett, | | | 2019 | ealth-Sched | | PhD [address] | | | | uled | | [place], [place] | | | | | | [phone] | | | | | | [phone] | | | | | | | | +--------+ + + + + | 01/06/ | Office | Plastic Surgery | Kuldip Harrell MD | | | 2019 | Visit | | [address] | | | | | | [place], [place] | | | | | | [address] | | | | | | [phone] | | | | | | | [...]
--- OUTSIDE RECORDS SUMMARY | ~2019-11-06 | XMS | Encounter Summary ---
Demographics + + + | Address | [address] | | | [place] [address] | + + + | Home Phone [...] | 12/21/ | Lab | Laboratory at [facility] | | | | 2019 | | [address] | | | | | | [place] [facility] | | | | | | and Healing, | | | | | | Building [address] | | | | | | [place], [place] | | | | | | [address] | | | | | | [phone] | | | +--------+------+ + + + [...] [address] | | | | | | [place], [place] | | | | | | [address] | | | | | | [phone] | | | | | | | | +--------+ + + + + | 11/17/ | Video/TeleH | Pain Management | Florencio Lockett, | | 2019 | ealth-Sched | | PhD [address] | | | | uled | | [place], [place] | | | | | | [address] | | | | | | [phone] | | | | | | | | +--------+ + + + + | 12/01/ | Video/TeleH | Pain Management | Florencio Lockett G, | | | 2019 | ealth-Sched | | PhD [address] | | | | uled | | [place], [place] | | | | | | [address] | | | | | | [phone] | | | | | | | | +--------+ + + + + | 01/06/ | Office | Plastic Surgery | Kuldip Harrell MD | | | 2019 | Visit | | [address] | | | | | | [place], [place] | | | | | | [address] | | | | | | [phone] | | | | | | | [...] | | | | PDT | obesity ([facility]) | results section. | | | | [...] | | | | PDT | obesity ([facility]) | results section. | | | | [...] | | | | PDT | obesity ([facility]) | results section. | | | | [...] | | | | PDT | obesity ([facility]) | results section. | | | | [...] | | | | PDT | obesity ([facility]) | results section. | | | | [...] | | | | PDT | obesity ([facility]) | results section. | | | | [...] | | | | PDT | obesity ([facility]) | results section. | | | | [...] | (NA,K,CL,CO2,BUN,CRE | | PDT | obesity ([facility]) | results section. | | AT,GLUC,CA,AST,ALT,B | [...] - INT[facility] | | | | [place], [facility] [place] [address] | | | | | | [phone].[facility]. | | | | | | Josué [...] [facility] | [address] | [place], [place] | | | UNIV PTH - INTFC | | [address] | | + + + + + [...] LABORATORY | [address] | [place] [address] | | | [facility] | | | | | HEALTH + [...] LABORATORY | | | | | | [facility], | | | | | | [...] [facility] | [address] | [place] [address] | | | SERVICES, CORE | PARK [...] | + + + + + | [facility] | [address] | [place] [address] | | | SERVICES, CORE | SAMMI [...] (L)Comment: | 70 - 180 nmol/L | [facility] | | | WHOLE | INTERPRETIVE [...] | | | | | determined by [facility] | | | | | | Laboratories. See | | | | | | Compliance Statement B: | | | | | | [employer]/CSPerformed | | | | | | by [employer],[address] | | | | | | [place], [place] | | | | | | [address] | | | | | | [phone].[employer]. | | | | | | comJosué [...] [facility] | [address] | [place], [place] | | | UNIV P[facility] - INT[facility] | | [address] | | + + + + + [...] | | | | | determined by [facility] | | | | | | Laboratories. See | | | | | | Compliance Statement B: | | | | | | [facility]/CSPerformed | | | | | | by [employer],[address] | | | | | | [place], [facility] [place] | | | | | | [address] | | | | | | [phone].[employer]. | | | | | | com, [...] [facility] | [address] | [place], [place] | | | UNIV PTH - INTFC | | [address] | | + + + + + [...] | + + + + + | [facility] | [address] | [place] [address] | | | ADONAY SMITH | SAMMI [...] | + + + + + | [facility] | [address] | [place] [address] | | | SERVICES, ADONAY | SAMMI [...] [facility] | [address] | [place] [address] | | | SERVICES, SPECIAL | PARK [...] | [facility] | | considered for monitoring emt intermediate glycemic control in patients with: | LABORATORY [...] | + + + + + | [facility] | [address] | [place] [address] | | | SERVICES, SPECIAL | SAMMI [...] | + + + + + | [facility] | [address] | [place] [address] | | | SERVICES, CORE | SAMMI [...] | | | LABORATORY | | | CYMRAES | | | SERVICES, | | | [...] MDRD equation recommended by the National | [facility] | | Kidney Disease Education Program. Estimated [...] | + + + + + | [facility] | [address] | [place] [address] | | | [facility], [facility] | | | | | HEALTH + HEALING | | | | + + + + + documented in this encounter Visit Diagnoses Not on filedocumented in this encounter"
--- OUTSIDE RECORDS SUMMARY | ~2019-11-06 | XMS | Encounter Summary ---
Demographics + + + | Address | [address] | | | [place] [address] | + + + | Home Phone [...] Providers + +------+ + | Care Operations Executive Name | Role | Phone | [...] | [facility] | | | with CYCLE DIRECTOR | | | Surg Chh2 | Chh2 [address] | | | | | | [address] | [address] | | | | | | [address] [place] | Center for | | | | | | for Health | Health and | | | | | | and Healing, | Healing, | | | | | | Building 2 | Building 2 | | | | | | [place], | [place], [place] | | | | | | [place] | [address] | | | | | | [address] | Phone: | | | | | | Phone: | | | | | | | | Fax: | | | | | | Fax: | [phone] | | | | | | [phone] | | +--------+ + + + + + Encounter Details +--------+---------+ + + + | Date | Type | Department | Care Team | Description | +--------+---------+ + + + | 07/16/ | Office | Digestive Health | | Morbid obesity (HCC) | | 2019 | Visit | Center at [facility] [address] | | (Primary Dx) | | | | [address] [place] | | | | | | for Health and | | | | | | Healing, [address] | | | | | | [place], [place] | | | | | | [address] | | | | | | | [...] of Class: 1100 until 1200 (60 minutes fdqa-qv-zden with patient) Teaching Methods: PowerPoint and verbal [...] a journal with fluid/protein d. Transportation 7. [facility] 8. Surgical [...] | | 2019 | Visit | | [address] | | | | | | [place], [place] | | | | | | [address] | | | | | | [phone] | | | | | | | | +--------+ + + + + | 11/17/ | Video/TeleH | Pain Management | Florencio Lockett, | | | 2019 | ealth-Sched | | PhD [address] | | | | uled | | [place], [place] | | | | | | [address] | | | | | | [phone] | | | | | | | | +--------+ + + + + | 12/01/ | Video/TeleH | Pain Management | Florencio Lockett, | | | 2019 | ealth-Sched | | PhD [address] | | | | uled | | [place], [place] | | | | | | [address] | | | | | | [phone] | | | | | | | | +--------+ + + + + | 01/06/ | Office | Plastic Surgery | Kuldip Harrell MD | | 2019 | Visit | | [address] | | | | | | [place], [place] | | | | | | [address] | | | | | | [phone] | | | | | | | | +--------+ + + + + documented as of this encounter Visit Diagnoses + + | Diagnosis | + + | Morbid obesity (HCC) - Primary Morbid obesity | + + documented in this encounter"
--- OUTSIDE RECORDS SUMMARY | ~2019-11-06 | XMS | Encounter Summary ---
Demographics + + + | Address | [address] | | | [place] [address] | + + + | Home Phone [...] Providers + +------+ + | Care Patient Observer Name | Role | Phone | + [...] Refill Request | | 2020 | | [facility] [address] | [address] | (scopolamine) | | | | [address] [facility] | [place], [place] | | | | | for Health and | [address] | | | | | [facility] | | | | | | [place], [place] | | | | | | [address] | | | | | | | [...] [address] | | | | | | [place], [place] | | | | | | [address] | | | | | | [phone] | | | | | | | | +--------+ + + + + | 11/17/ | Video/TeleH | Pain Management | Florencio Lockett, | | | 2019 | ealth-Sched | | PhD [address] | | | | uled | | [place], [place] | | | | | | [address] | | | | | | [phone] | | | | | | | | +--------+ + + + + | 12/01/ | Video/TeleH | Pain Management | Florencio Lockett, | | | 2019 | ealth-Sched | | PhD [address] | | | | uled | | [place], [place] | | | | | | [address] | | | | | | [phone] | | | | | | | | +--------+ + + + + | 01/06/ | Office | Plastic Surgery | Kuldip Harrell MD | | | 2019 | Visit | | [address] | | | | | | [place], [place] | | | | | | [address] | | | | | | [phone] | | | | | | | | +--------+ + + + + documented as of this encounter Visit Diagnoses Not on filedocumented in this encounter"
--- OUTSIDE RECORDS SUMMARY | ~2019-11-06 | XMS | Encounter Summary ---
Demographics + + + | Address | [address] | | | [place] [address] | + + + | Home Phone [...] Team Providers + +------+ + | Care Load Test Mechanic Name | Role | Phone | [...] [facility] [address] | MD [address] | not EGD) | | | | [address] | [facility] [place] | | | | | for Health and | [address] | | | | | [facility], [facility] [address] | | | | | | [place], [place] | | | | | | [address] | | | | | | | [...] | | 2019 | Visit | | [address] | | | | | | [place], [place] | | | | | | [address] | | | | | | [phone] | | | | | | | | +--------+ + + + + | 11/17/ | Video/TeleH | Pain Management | Florencio Lockett, | | | 2019 | ealth-Sched | | PhD [address] | | | | uled | | [place], [place] | | | | | | [address] | | | | | | [phone] | | | | | | | | +--------+ + + + + | 12/01/ | Video/TeleH | Pain Management | Florencio Lockett, | | | 2019 | ealth-Sched | | PhD [address] | | | | uled | | [place], [place] | | | | | | [address] | | | | | | [phone] | | | | | | | | +--------+ + + + + | 01/06/ | Office | Plastic Surgery | Kuldip Harrell MD | | | 2019 | Visit | | [address] | | | | | | [place], [place] | | | | | | [address] | | | | | | [phone] | | | | | | | | +--------+ + + + + documented as of this encounter Visit Diagnoses Not on filedocumented in this encounter"
--- OUTSIDE RECORDS SUMMARY | ~2019-11-06 | XMS | Encounter Summary ---
Demographics + + + | Address | [address] | | | [place] [address] | + + + | Home Phone | | + + + | Preferred Language | Unknown | + + + | Marital Status | | + + + | Lutheran Affiliation | Unknown | + + + [...] [place], | | | | | [place] [address] | | + + + + + Care Team Providers + +------+ + | Care Branch Manager Trainee Name | Role | Phone | + [...] + + | 07/07/ | Documentati | [facility] | Rosibel Peters, | Other (end of study) | | 2020 | on | CARDIOLOGY [facility] | Technologist | | | | | [address] | | | | | | [place], [place] | | | | | | [address] | | | | | | [phone] | | | +--------+ + + + [...] | 2019 | Visit | | [address] | | | | | | [place], [place] | | | | | | [address] | | | | | | [phone] | | | | | | | | +--------+---------+ + + + | 11/25/ | Office | Cardiology | Katheryn Hammonds DO | | | 2019 | Visit | | [address] | | | | | | [place] | | | | | | [address] | | | | | | | | +--------+---------+ + + + documented as of this encounter Visit Diagnoses Not on filedocumented in this encounter"
--- OUTSIDE RECORDS SUMMARY | ~2019-11-06 | XMS | Encounter Summary ---
Demographics + + + | Address | [address] | | | [place] [address] | + + + | Home Phone [...] | + + +---------+ + | Jeovanny Hernnádez | ECON | Unknown | | + + +---------+ + Care Team Providers + +------+ + | Care Speaker Mounter Name | Role | Phone | + [...] | | ([facility] at [facility] [address] | [place], [place] | | | | | [address] | [address] | | | | | Mailcode: Shell | [phone] | | | | | for Health and | | | | | | [facility], [facility] 2 | | | | | | [place], [place] | | | | | | [address] | | | | | | [phone] | | | +--------+ + + + [...] hours or on weekends and holiday Hospital Attendant Child Activity toll free [phone] [phone] and have the GI doctor it security consulting director paged. The provider who performed your procedure is: Dr. Rahman Results of your EGD: Normal post surgical anatomy. May resume post surgical diet. Follow up with Dr. Duff. Follow up Appointments with: Follow up with primary care provider as needed. Thank you for choosing [facility]! Your primary care provider or referring provider [...] Doxycycline Rash Percocet [Oxycodone-Acetaminophen] Nausea and Vomiting [place] Oil Hives and Nausea and Vomiting Seroquel [Quetiapine Fumarate] Suicidal Ideation See procedure note 01/10/19 Julissa Rahman MD, FACS Pocketed Spring Assembler [facility] Bariatric Surgery Dept of Surgery documented in this en counter Plan of Treatment +--------+ + + + + | Date | Type | Specialty | Care Team | Description | +--------+ + + + + | 11/13/ | Office | Gastroenterology | Cassidy Schneider, | | | 2019 | Visit | | [address] | | | | | | [place], [place] | | | | | | [address] | | | | | | [phone] | | | | | | | | +--------+ + + + + | 11/17/ | Video/TeleH | Pain Management | Florencio Lockett, | | | 2019 | ealth-Sched | | PhD [address] | | | | uled | | [place], [place] | | | | | | [address] | | | | | | [phone] | | | | | | | | +--------+ + + + + | 12/01/ | Video/TeleH | Pain Management | Florencio Lockett, | | | 2019 | ealth-Sched | | PhD [address] | | | | uled | | [place], [place] | | | | | | [address] | | | | | | [phone] | | | | | | | | +--------+ + + + + | 01/06/ | Office | Plastic Surgery | Kuldip Harrell MD | | 2019 | Visit | | [address] | | | | | | [place], [place] | | | | | | [address] | | | | | | [phone] | | | | | | | [...] + | MRN: | [facility] | | [id number] Date: 01/10/2019Patient Name: Maria De Jesus Gonzalez #: | ENDOSCOPY | | [id number] of : [id number]: [id number] Type: | | | OutpatientRoom: Endo 3Procedure: Upper GI | | | endoscopyIndications: Dysphagia, h/o lap gastric bypass | | | with multiple food | | | intolerances.Providers: JULISSA RAHMAN MD (Doctor), | | | MARTINA CUMMINS RN (Nurse), GENECREST | | | [facility] (Zoo Veterinarian)Referring MD: RAFFY DUFF, | | | MDRequesting [...] | | | The Olympus GIF-[id number] Gastroscope #[id number] was introduced | | | through the [...] This was | | | traversed. The doyhs-vd-fhdhpkm limb was characterized by | | | healthy appearing mucosa. The mnsolfis-hs-cgttlmu limb was not | | | examined [...] PDT | | | | | Until [facility] 01/10/19 at 1352 | | | | [...] | | | Until Mary 01/10/19 at 7, gas | | | bubbles in endoscope [...]
--- OUTSIDE RECORDS SUMMARY | ~2019-11-06 | XMS | Encounter Summary ---
Demographics + + + | Address | [address] | | | [place] [address] | + + + | Home Phone [...] Team Providers + +------+ + | Care Master Baker Name | Role | Phone | + [...] | | 2019 | Visit | | [address] | | | | | | [place], [place] | | | | | | [address] | | | | | | [phone] | | | | | | | | +--------+ + + + + | 07/27/ | Video/TeleH | Pain Management | Florencio Lockett, | | | 2019 | ealth-Sched | | PhD [address] | | | | uled | | [place], [place] | | | | | | [address] | | | | | | [phone] | | | | | | | | +--------+ + + + + | 12/01/ | Video/TeleH | Pain Management | Florencio Lockett, | | | 2019 | ealth-Sched | | PhD [address] | | | | uled | | [place], [place] | | | | | | [address] | | | | | | [phone] | | | | | | | | +--------+ + + + + | 01/06/ | Office | Plastic Surgery | Kuldip Harrell MD | | | 2019 | Visit | | [address] | | | | | | [place], [place] | | | | | | [address] | | | | | | [phone] | | | | | | | | +--------+ + + + + documented as of this encounter Visit Diagnoses Not on filedocumented in this encounter"
--- OUTSIDE RECORDS SUMMARY | ~2019-11-06 | XMS | Encounter Summary ---
Demographics + + + | Address | [address] | | | [place] [address] | + + + | Home Phone [...] Team Providers + +------+ + | Care Top Lift Trimmer Name | Role | Phone | + [...] TUBE PLACEMENT, | | | | Rd [facility] | [place], [place] | DIAGNOSTIC | | | | Hospital Admitting | [address] | LAPAROSCOPY; | | | | Desk Located on the | [phone] | | | | | 9th floor | | | | | | [place], [place] | | | | | | [address] | | | +--------+---------+ + + + [...] note might be different from adryan vann. [facility] RED SURGERY INPATIENT DISCHARGE SUMMARY Author: IVONNE [...] assist with nutrition. She was admitted to [facility] 05/30/2019 for the above list ed procedures. She tolerated the procedure well with no complications. She was kept over [facility] for observation. Her diet was advanced [...] suppository rectally once daily as needed. Remove wrapper opener, insert 1 suppository into rectum and retain [...] Take 40 mg by mouth once daily. IRLO-PBNU-HRPQQ (PABA) ORAL Take 1 Dose by mouth [...] 'after hours' URGENT problems please call the [facility] casting wheel operator at and ask fo r the [...] to Prevent Infection", log into y our Yurpy account at [email or web address]. You can enter U010 in the "[employer]" search box. Not on Yurpy? Review the Yurpy section of your After Visit Summary for directions on ho w to sign up. Current as of: April 11, 2018 Content Version: [id number] [employer]. Care instructions adapted under license by Critical access hospital & [facility]. If you have questions about a medical condition or this instr uction, always ask your healthcare professional. [employer] disclaims any denise anty or liability for [...] Outstanding labs/studies: None Lucero Arias MD PhD [facility] General Surgery Red Surgery Pager # [phone] Associated attestation - Aysha eMyer MD - 06/02/2019 3:58 PM PSTI saw and evaluated the patient. I agree with the findings and the plan of care as documented in the resident s note. Aysha Meyer MD [facility] [address] [place] [address] documented in this encounter Discharge [...] hours by calling the surgery office at [phone]. - After hours, weekends and holidays, you may call the hospital casting wheel operator at [phone] an d have the acid polymerization operator Red Surgery Team paged.Electronically signed by [...] ex lap and g tube placement to [facility] ist with nutrition. She was admitted to [facility] 05/30/2019 for the above listed procedures. morelia [...] 'after hours' URGENT problems please call the [facility] casting wheel operator at and ask fo r the [...] to Prevent Infection", log into y our Yurpy account at [email or web address]. You can enter U010 in the "[employer]" search box. Not on Yurpy? Review the MyChart section of your After Visit Summary for directions on leonel huynh to sign up. Current as of: April 11, 2018 Content Version: [id number] [employer]. Care instructions adapted under license by Critical access hospital & [facility]. If you have questions about a medical condition or this instr uction, always ask your healthcare professional. [employer] disclaims any denise anty or liability for [...] through Care Everywhere.Feeding Tube: G eneral Info (Spanish)Tube Feeding: Home (Spanish)PEG (Percutaneous Endoscopic Gastrostomy): Post-op (Spanish)[facility]: Gastrostomy Tube Use and Care (Spanish)Indwelling Urinary Catheter Ca re: General Info (Spanish)documented in this encounter Medications at Time of [...] | | | | | | | ([id number] | | | | | | | [...] Doxycycline Rash Percocet [Oxycodone-Acetaminophen] Nausea and Vomiting Monte[place] Oil Hives and Nausea and Vomiting Seroquel [...] this note might be different from the [facility] DEPARTMENT OF SURGERY Red Surgery Admission Date: 05/30/2019 ( LOS: 0 days ) Attending Provider: Kenan Norton MD Interval History and Events: - No acute events overnight - Pain better controlled. Valium yesterday was more effective than flexeril. - Good PO. Nausea controlled. - No BM - Plan to DC today with olmos catheter in place. Fill and pull 06/04 in clinic. Follow-up [facility] Dr. Norton in 2 weeks. BP 108/54 [...] olmos teaching complete. Lucero Arias MD PhD [facility] General Surgery Red Surgery Pager #[phone] Associated attestation - Aysha Meyer MD - 06/02/2019 4:21 PM PSTI saw and evaluated the patient. I agree with the findings and the plan of care as documented in the resident s note. Aysha Meyer MD [facility] [address] [place] [address] Kelly Baker MD - 06/01/2019 2:43 PM [...] Doxycycline Rash Percocet [Oxycodone-Acetaminophen] Nausea and Vomiting Monte[place] Oil Hives and Nausea and Vomiting Seroquel [...] Diazepam Kelly Baker MD Chronic Pain Fellow [facility] [id number] Associated attestation - Sammi Ayala MD - [...] pain control. Rachel Ward MD MIS Fellow [id number] Lucero Ge MD - 05/31 12:28 PM [...] improved pain control. Lucero Arias MD PhD [facility] General Surgery Red Surgery Pager # [phone] Associated attestation - Kenan Norton MD - 06/02/2019 9:09 PM PSTA resident assisted with documenting this service. I saw the patient and reviewed and verified all information d ocumented by the resident, and made modifications to such information, when appropriate. Kenan Norton MD, MS Paleontological Helper [facility] Bariatric Surgery documented in this encounter Plan of Treatment +--------+ + + + + | Date | Type | Specialty | Care Team | Description | +--------+ + + + + | 11/13/ | Office | Gastroenterology | Cassidy Schneider, | | 2019 | Visit | | [address] | | | | | | [place], [place] | | | | | | [address] | | | | | | [phone] | | | | | | | | +--------+ + + + + | 11/17/ | Video/TeleH | Pain Management | Florencio Lockett, | | | 2019 | ealth-Sched | | PhD [address] | | | | uled | | [place], [place] | | | | | | [address] | | | | | | [phone] | | | | | | | | +--------+ + + + + | 12/01/ | Video/TeleH | Pain Management | Florencio Lockett, | | | 2019 | ealth-Sched | | PhD [address] | | | | uled | | [place], [place] | | | | | | [address] | | | | | | [phone] | | | | | | | | +--------+ + + + + | 01/06/ | Office | Plastic Surgery | Kuldip Harrell MD | | | 2019 | Visit | | [address] | | | | | | [place], [place] | | | | | | [address] | | | | | | [phone] | | | | | | | [...] + | [facility] | [address] | [place], [place] | | | CARDIOLOGY | [address] | [address] | | + + + + + [...] | + + + + + | [facility] | [address] | [place] [address] | | | SERVICES, CORE | [address] [...] | | | LABORATORY | | | [place] | | | SERVICES, | | | [...] | 17 | 8 - 25 | [facility] | | | INE RATIO | | [...] | + + + + + | [facility] | [address] | [place] [address] | | | SERVICES, CORE | [address] | | | + + + + + X-RAY PORTABLE ABD TUBE OR CATH EVAL W CONTRAST (06/01/2019 1:25 PM PST) + + | Specimen | + + | | + + + + + | Narrative | Performed At | + + + | EXAM: CT ABD TUBE OR CATH EVAL W CONTRAST. [...] Note | + + | Service Account, [employer] Interface - 06/01/2019 5:14 PM PST EXAM: CT ABD TUBE | | OR CATH EVAL [...] + + + + | [facility] | 442 | ms | [facility] [...] | + + + + + | [facility] | [address] | [place], [place] | | | CARDIOLOGY | [address] | [address] | | + + + + + [...] | | | LABORATORY | | | [place] | | | SERVICES, | | | [...] MDRD equation recommended by the National | [facility] | | Kidney Disease Education Program. Estimated [...] | + + + + + | [facility] | [address] | [place] [address] | | | SERVICES, CORE | PARK [...] [facility] | [address] | [place], [place] | | | TUSAHR KING OF CARE | [address] | [address] | | | TESTS | | | [...] + | [facility] | [address] | [place], [place] | | | CHRISTINE POINT OF CARE | [address] | [address] | | | TESTS | | | [...] FOR[facility] | [address] | [place], [place] | | | TUSHAR [facility] | [address] | [address] | | | TESTS | | | [...] | 60 mL | | | | (GASTROGRAFINMARIA INESGASTROBEN) | | 20 1:04 | | | [...] | | | Until Mary 05/30/19 at 626 | | | | | | + +-------+ +-------+---+---------+ + +---+ | | | + +---+ | enoxaparin (LOVENOX) injection | | | 1 dose, Starting Mary 05/30/19 at | | | 0600, Until Mary 05/30/19 at 06 | | + +---+ | | | [...] 8:41 | | | | | dose, 06/02/19 at 2045 | | PM PST | | | | + +-------+ +--------+---+---+ +---+---+ | | | +---+---+ + +-------+ +-------+---+---+ | FLUoxetine (PROZAC) capsule 40 | Given | 06/02/19 | 40 mg | | | | mg 40 mg, oral, DAILY, First | | 20 9:13 | | | | | dose on [facility] 05/30/19 at 1715, Until | | AM [...] | 05/30/19 at 1500, Last dose on Mon | | | [...] | | | | ONCE, 1 dose, [facility] 05/30/19 at 0700 | | AM PST [...] | | | | | % prerna clark, ONCE, 1 dose, | | 20 8:50 [...] | | | rectal, ONCE, 1 dose, [place] 06/02/19 | | PM PST | | [...] | | | | First dose on [facility] 05/30/19 at 2100, | | PM PST [...] | | | | doses, Starting Mary 2/6/20 at | | | | | | [...] Auricula | | dose, First dose on [facility] 05/30/19 at | | | | | [...] | | | | | reorder) on [place] 06/02/19 at 1015 | | | | [...] | | | | | dose on 2/7/20 at 1415, Until | | AM PST [...]
--- OUTSIDE RECORDS SUMMARY | ~2019-11-06 | XMS | Encounter Summary ---
Demographics + + + | Address | [address] | | | [place] [address] | + + + | Home Phone [...] + +------+ + | Care Facilities Maintenance Technician Name | Role | Phone [...] | 2018 | | Center at [facility] [address] | | up visit with C[facility] | | | | [facility] | | after UGI) | | | | for Health and | | | | | | [facility], [facility] 2 | | | | | | [place], [place] | | | | | | [address] | | | | | | [phone] | | | +--------+ + + + [...] | | | | | | [place], [place] | | | | | | [address] | | | | | | [phone] | | | | | | | | +--------+ + + + + | 11/17/ | Video/TeleH | Pain Management | Florencio Lockett, | | | 2019 | ealth-Sched | | PhD [address] | | | | uled | | [place], [place] | | | | | | [address] | | | | | | [phone] | | | | | | | | +--------+ + + + + | 12/01/ | Video/TeleH | Pain Management | Florencio Lockett, | | | 2019 | ealth-Sched | | PhD [address] | | | | uled | | [place], [place] | | | | | | [address] | | | | | | [phone] | | | | | | | | +--------+ + + + + | 01/06/ | Office | Plastic Surgery | Kuldip Harrell MD | | | 2019 | Visit | | [address] | | | | | | [place], [place] | | | | | | [address] | | | | | | [phone] | | | | | | | | +--------+ + + + + documented as of this encounter Visit Diagnoses Not on filedocumented in this encounter"
--- OUTSIDE RECORDS SUMMARY | ~2019-11-06 | XMS | Encounter Summary ---
Demographics + + + | Address | [address] | | | [place] [address] | + + + | Home Phone [...] Team Providers + +------+ + | Care Adoption Specialist Name | Role | Phone | [...] [place] | | | | | | [place], [place] | | | | | | [address] | | | | | | [phone] | | | | | | | | +--------+ + + + + | 11/17/ | Video/TeleH | Pain Management | Florencio Lockett, | | | 2019 | ealth-Sched | | PhD [address] | | | | uled | | [place], [place] | | | | | | [address] | | | | | | [phone] | | | | | | | | +--------+ + + + + | 12/01/ | Video/TeleH | Pain Management | Florencio Lockett, | | | 2019 | ealth-Sched | | PhD [address] | | | | uled | | [place], [place] | | | | | | [address] | | | | | | [phone] | | | | | | | | +--------+ + + + + | 01/06/ | Office | Plastic Surgery | Kuldip Harrell MD | | 2019 | Visit | | [address] | | | | | | [place], [place] | | | | | | [address] | | | | | | [phone] | | | | | | | | +--------+ + + + + documented as of this encounter Visit Diagnoses Not on filedocumented in this encounter"
--- OUTSIDE RECORDS SUMMARY | ~2019-11-06 | XMS | Encounter Summary ---
Demographics + + + | Address | [address] | | | [place] [address] | + + + | Home Phone [...] Team Providers + +------+ + | Care Echocardiograph Technician Name | Role | Phone | [...] | Abstract | Digestive Health | Jody Watosn ACNP | Outside Records | | 2018 | | Center at [facility] [address] | [address] | Received (GI notes) | | | | [address] [facility] | [address] [place], | | | | | for Health and | [place] [address] | | | | | [facility] 2 | [phone] | | | | | [place], [place] | | | | | | [address] | | | | | | [phone] | | | +--------+ + + + [...] [address] | | | | | | [place], [place] | | | | | | [address] | | | | | | [phone] | | | | | | | | +--------+ + + + + | 11/17/ | Video/TeleH | Pain Management | Florencio Lockett, | | | 2019 | ealth-Sched | | PhD [address] | | | | uled | | [place], [place] | | | | | | [address] | | | | | | [phone] | | | | | | | | +--------+ + + + + | 12/01/ | Video/TeleH | Pain Management | Florencio Lockett, | | | 2019 | ealth-Sched | | PhD [address] | | | | uled | | [place], [place] | | | | | | [address] | | | | | | [phone] | | | | | | | | +--------+ + + + + | 01/06/ | Office | Plastic Surgery | Kuldip Harrell MD | | | 2019 | Visit | | [address] | | | | | | [place], [place] | | | | | | [address] | | | | | | [phone] | | | | | | | | +--------+ + + + + documented as of this encounter Visit Diagnoses Not on filedocumented in this encounter"
--- OUTSIDE RECORDS SUMMARY | ~2019-11-06 | XMS | Encounter Summary ---
Demographics + + + | Address | [address] | | | [place] [address] | + + + | Home Phone | | + + + | Preferred Language | Unknown | + + + | Marital Status | | + + + | Denominational Affiliation | Unknown | + + + | Race | Unknown | + + + | Ethnic Group | Unknown | + + + Author + + + | Author | [facility] | | | and [place] | + + + | Organization | [facility] | | | [...] [place], | | | | | [place] [address] | | + + + + + Care Team Providers + +------+ + | Care Delivery Table Operator Name | Role | Phone [...] + + | 09/01/ | Emergency | [facility] | Devan Farmer, | Abdominal wall | | 2018 | | [facility] | [id number] | abscess (Primary Dx) | | | | CENTER [address] | [place] | | | | | [place] | [place] [address] | | | | | [address] | [phone] | | | | | [phone] | | | +--------+ + + + [...] might be different fro m the original. [facility] Department Encounter Note [address] [place] [address] PCP:No primary care provider on file. [phone] CHIEF COMPLAINT: Chief Complaint Patient presents with Skin Redness With Swelling ED Room: ED12/ED12 TRIAGE: ED Triage Notes, ED Triage Notes Anat Cowan, Furnace Installer 09/01/2017 13:56 Cosign Required Pt reports going to urgent care last week for cellulitis. Pt reports going to ED in [facility] on where she had an ultrasound [...] were reviewed along with EMS notes and senior care record s if applicable. (See chart for [...] this chart may have been created with [employer] voice recognition software. Occasi onal wrong-word or sound-alike substitutions may have occurred due to the inherent to itations of voice recognition software. Please read the chart carefully and recognize, using context, where these substitutions have occurred Devan Farmer MD 09/01/17 2288 documented in this en counter Plan of Treatment +--------+---------+ + + + | Date | Type | Specialty | Care Team | Description | +--------+---------+ + + + | 11/18/ | Office | Neurology | Shirley Murdock NP | | | 2019 | Visit | | [address] [place] [address] | | | | | | [place] | | | | | | [address] | | | | | | [phone] | | | | | | | | +--------+---------+ + + + | 11/25/ | Office | Cardiology | Katheryn Hammonds DO | | | 2019 | Visit | | [address] | | | | | | [place] | | | | | | [address] | | | | | | | [...] [address] | [place] | [phone] | | [facility] | | [address] | | | - LABORATORY | | [...] ST. | [address] | [place] | [phone] | | [facility] | | [address] | | | - LABORATORY | | [...] | | [facility] | | | [facility] | | | - LABORATORY | + + + + + + + + | Performing | Address | City/State/Zipcode | Phone Number | | Organization | | | | + + + + + | [facility] | [address] | [place], [place] | [phone] | | [facility] | | [address] | | | - LABORATORY | | [...] 10 | 7 - 18 mg/dL | [facility] | | | | | | [facility] | | | | | | MEDICAL | | | | | | CENTER - | | | | | | LABORATORY | | + + + + + + | Creatinine | 0.76 | 0.60 - 1.30 | [facility] | | | | | mg/dL | [facility] | | | | | | MEDICAL | | | | | | CENTER - | | | | | | LABORATORY | | + + + + + + | eGFR if not | >60Comment: GLOMERULAR | >=60 | [facility] | | | | FILTRATION | mL/min/1.73m2 | [place] | | | [place] | RATE,ESTIMATED | | MEDICAL | | | | mL/min/1.75c3Slti than | | CENTER - | | [...] + | [facility] | [address] | [place], [place] | [phone] | | [facility] | | [address] | | | - LABORATORY | | [...] | | | | mmol/L | [facility] | | | | | | [...] [address] | [place] | [phone] | | [facility] | | [address] | | | - LABORATORY | | [...] [address] | [place] | [phone] | | [facility] | | [address] | | | - LABORATORY | | [...]
--- OUTSIDE RECORDS SUMMARY | ~2019-11-06 | XMS | Encounter Summary ---
Demographics + + + | Address | [address] | | | [place] [address] | + + + | Home Phone [...] Team Providers + +------+ + | Care Consumer Safety Inspector Name | Role | Phone | [...] 2019 | | Center at [facility] [address] | [facility] [address] | | | | | [address] [place] | [place], [place] | | | | | for [facility] and | [address] | | | | | [facility] 2 | [phone] | | | | | [place], [place] | | | | | | [address] | | | | | | | [...] [address] | | | | | | [place], [place] | | | | | | [address] | | | | | | [phone] | | | | | | | | +--------+ + + + + | 11/17/ | Video/TeleH | Pain Management | Florencio Lockett, | | | 2019 | ealth-Sched | | PhD [address] | | | | uled | | [place], [place] | | | | | | [address] | | | | | | [phone] | | | | | | | | +--------+ + + + + | 12/01/ | Video/TeleH | Pain Management | Florencio Lockett, | | | 2019 | ealth-Sched | | PhD [address] | | | | uled | | [place], [place] | | | | | | [address] | | | | | | [phone] | | | | | | | | +--------+ + + + + | 01/06/ | Office | Plastic Surgery | Kuldip Harrell MD | | | 2019 | Visit | | [address] | | | | | | [place], [place] | | | | | | [address] | | | | | | [phone] | | | | | | | | +--------+ + + + + documented as of this encounter Visit Diagnoses Not on filedocumented in this encounter"
--- OUTSIDE RECORDS SUMMARY | ~2019-11-06 | XMS | Encounter Summary ---
Demographics + + + | Address | [address] | | | [place] [address] | + + + | Home Phone [...] Team Providers + +------+ + | Care Chili Powder Mixer Name | Role | Phone | + +------+ + | Alisha Stovall PA-C | PCP | | + +------+ + Encounter Details +--------+ + + + + | Date | Type | Department | Care Team | Description | +--------+ + + + + | 02/23/ | Abstract | Cardiology | Sarah Barba | | | 2018 | | Preventive at [facility] | SHANICE Villafuerte [address] | | | | | [address] | [address] [place], | | | | | [place] for [facility] | [place] [address] | | | | | and [place], | [phone] | | | | | [address] | | | | | | [place], [place] | | | | | | [address] | | | | | | [phone] | | | +--------+ + + + [...] [address] | | | | | | [place], [place] | | | | | | [address] | | | | | | [phone] | | | | | | | | +--------+ + + + + | 11/17/ | Video/TeleH | Pain Management | Florencio Lockett, | | | 2019 | ealth-Sched | | PhD [address] | | | | uled | | [place], [place] | | | | | | [address] | | | | | | [phone] | | | | | | | | +--------+ + + + + | 12/01/ | Video/TeleH | Pain Management | Florencio Lockett G, | | | 2019 | ealth-Sched | | PhD [address] | | | | uled | | [place], [place] | | | | | | [address] | | | | | | [phone] | | | | | | | | +--------+ + + + + | 01/06/ | Office | Plastic Surgery | Kuldip Harrell MD | | | 2019 | Visit | | [address] | | | | | | [place], [place] | | | | | | [address] | | | | | | [phone] | | | | | | | | +--------+ + + + + documented as of this encounter Visit Diagnoses Not on filedocumented in this encounter"
--- OUTSIDE RECORDS SUMMARY | ~2019-11-06 | XMS | Encounter Summary ---
Demographics + + + | Address | [address] | | | [place] [address] | + + + | Home Phone [...] Phone | + + +---------+ + | Jeovnany Hernández | ECON | Unknown | | + + +---------+ + Care Team Providers + +------+ + | Care Tractor Driver Teamster Name | Role | Phone | + [...] | Visit | Center at [facility] [address] | [address] | (Primary Dx); | | | | [address] | Sammi Aguilar [place], | Anxiety; | | | | for Health and | [place] [address] | Dehydration; Morbid | | | | Healing, Building 2 | [phone] | obesity (HCC); | | | | [place], [place] | | Gastroesophageal | | | | [address] | | reflux disease, | | | | [phone] | | esophagitis presence | | | [...] from us today. States that strawberries and divehi yogurt and pitachioes and lunchables are the [...] Laparoscopic andreia-en-y gastric bypass with cholecystectomy 09/24/[address] [facility] [address]. Norton Social History Socioeconomic History Marital [...] file Gets together: Not on file Attends jain service: Not on file Active member of club or organization: Not on file Attends meetings of clubs or organizations: Not on file Relationship status: Not on file Other Topics Concern Not on file Social History Narrative Family History Allergies Allergies Allergen Reactions Ibuprofen Hives Benzonatate Rash Cigarette Smoke Airway Constriction Depakote [Divalproex Sodium] Suicidal Ideation Doxycycline Rash Percocet [Oxycodone-Acetaminophen] Nausea and Vomiting Milo Oil Hives and Nausea and Vomiting Seroquel [...] mouth every seven days. For 12 w [facility] Indications: Vitamin D Deficiency (High Dose Therapy) [...] gram oral recon soln, Drink at least 6309-0180 ml of t his prep by mouth [...] noted on report -EGD also scheduled with [facility] in December with Dr. Rahman--> think about [...] directed # Gastric Ulcer Prevention -continue acid pipeliner (omeprazole) for first 3 months for prevention of ulcers and GERD. Then wean off over 2 wks. Advised to take this medication even if not experiencing symptoms . See your primary care provider for adjusting any other medications. Call if any abdominal pain, n/v/d or other issues. Pt agrees to plan and will call and/or send SeeJay message if any issues. Start time 1120, end time 1320. I spent a total of 120 minutes face to face with this elliott ent. Over 50% of visit was in counseling. Extended visit: 90 mins Jody Watson, MSN, AG-ACNP, PERINATAL BREASTFEEDING ASSISTANT Bariatric Surgery Nurse Practitioner [facility] | [address] | [place] | [address] | documented in this enco unter Plan of Treatment +--------+ + + + + | Date | Type | Specialty | Care Team | Description | +--------+ + + + + | 11/13/ | Office | Gastroenterology | Cassidy Schneider, | | | 2019 | Visit | | MD [address] | | | | | | [place], [place] | | | | | | [address] | | | | | | [phone] | | | | | | | | +--------+ + + + + | 11/17/ | Video/TeleH | Pain Management | Florencio Lockett, | | | 2019 | ealth-Sched | | PhD [address] | | | | uled | | [place], [place] | | | | | | [address] | | | | | | [phone] | | | | | | | | +--------+ + + + + | 12/01/ | Video/TeleH | Pain Management | Florencio Lockett, | | | 2019 | ealth-Sched | | PhD [address] | | | | uled | | [place], [place] | | | | | | [address] | | | | | | [phone] | | | | | | | | +--------+ + + + + | 01/06/ | Office | Plastic Surgery | Kuldip Harrell MD | | | 2020 | Visit | | [address] | | | | | | [place], [place] | | | | | | [address] | | | | | | [phone] | | | | | | | [...] | | | | PDT | obesity ([facility]) | results section. | | [...] | | | | PDT | obesity ([facility]) | results section. | | [...] | | | | PDT | obesity ([facility]) | results section. | | [...] | | | | PDT | obesity ([facility]) | results section. | | [...] | (NA,K,CL,CO2,BUN,CRE | | PDT | obesity ([facility]) | results section. | | [...] | | | | PDT | obesity ([facility]) | results section. | | [...] | | | | PDT | obesity ([facility]) | results section. | | [...] | | | | PDT | obesity ([facility]) | results section. | | [...] | | | | PDT | obesity ([facility]) | results section. | | [...] | | | | PDT | obesity ([facility]) | results section. | | [...] | | | | PDT | obesity ([facility]) | results section. | | [...] PTH - INTFC | | | | [facility] [address] | | | | | | [phone].aruplab. | | | | | | Josué [...] [facility] | [address] | [place], [place] | | | UNIV PTH - INTFC | | [address] | | + + + + + [...] [facility] | [address] | [place] [address] | | | SERVICES, CENTER FOR | [...] LABORATORY | [address] | [place] [address] | | | [facility] | | | | | HEALTH + [...] LABORATORY | | | | | | [facility], | | | | | | CORE [...] [facility] | [address] | [place] [address] | | | SERVICES, CORE | PARK [...] | + + + + + | [facility] | [address] | [place] [address] | | | ADONAY SMITH | SAMMI [...] | | | | | determined by [facility] | | | | | | Laboratories. See | | | | | | Compliance Statement B: | | | | | | [employer].ClassPass/CSPerformed | | | | | | by [employer],[address] | | | | | | [address] [facility] | | | | | | [address] | | | | | | [phone].[employer]. | | | | | | comJosué [...] [facility] | [address] | [place], [place] | | | UNIV PTH - INTFC | | [address] | | + + + + + [...] | | | | | determined by [employer] | | | | | | Abiquo. See | | | | | | Compliance Statement B: | | | | | | [employer].ClassPass/CSPerformed | | | | | | by [employer],[address] | | | | | | [facility] | | | | | | [address] | | | | | | [phone].[employer]. | | | | | | [facility] MD, | | | | [...] [facility] | [address] | [place], [place] | | | UNIV PTH - INTFC | | [address] | | + + + + + [...] [facility] | [address] | [place] [address] | | | SERVICES, CORE | SAMMI [...] [facility] | [address] | [place] [address] | | | SERVICES, CORE | PARK [...] [facility] | [address] | [place] [address] | | | SERVICES, SPECIAL | PARK [...] | [facility] | | considered for monitoring continuous churn buttermaker glycemic control in patients with: | LABORATORY [...] [facility] | [address] | [place] [address] | | | SERVICES, SPECIAL | PARK [...] | + + + + + | [facility] | [address] | [place] [address] | | | SERVICES, CORE | SAMMI [...] | | | LABORATORY | | | [place] | | | SERVICES, | | | [...] MDRD equation recommended by the National | [facility] | | Kidney Disease Education Program. Estimated [...] [facility] | [address] | [place] [address] | | | [facility] | | | | | HEALTH [...]
--- OUTSIDE RECORDS SUMMARY | ~2019-11-06 | XMS | Encounter Summary ---
Demographics + + + | Address | [address] | | | [place] [address] | + + + | Home Phone [...] Providers + +------+ + | Care Digital Account Manager Name | Role | Phone | [...] | | [address] | [place], [place] | | | | | for Health and | [address] | | | | | Healing, Building [address] | [phone] | | | | | [place], [place] | | | | | | [address] | | | | | | [phone] | | | +--------+ + + + [...] [address] | | | | | | [place], [place] | | | | | | [address] | | | | | | [phone] | | | | | | | | +--------+ + + + + | 11/17/ | Video/TeleH | Pain Management | Florencio Lockett, | | | 2019 | ealth-Sched | | PhD [address] | | | | uled | | [place], [place] | | | | | | [address] | | | | | | [phone] | | | | | | | | +--------+ + + + + | 12/01/ | Video/TeleH | Pain Management | Florencio Lockett, | | | 2019 | ealth-Sched | | PhD [address] | | | | uled | | [place], [place] | | | | | | [address] | | | | | | [phone] | | | | | | | | +--------+ + + + + | 01/06/ | Office | Plastic Surgery | Kuldip Harrell MD | | | 2019 | Visit | | [address] | | | | | | [place], [place] | | | | | | [address] | | | | | | [phone] | | | | | | | | +--------+ + + + + documented as of this encounter Visit Diagnoses Not on filedocumented in this encounter"
--- OUTSIDE RECORDS SUMMARY | ~2019-11-06 | XMS | Encounter Summary ---
Demographics + + + | Address | [address] | | | [place] [address] | + + + | Home Phone [...] Team Providers + +------+ + | Care Weight Control Engineer Name | Role | Phone | [...] | Refill | Digestive Health | Kenan Nroton, | Refill Request | | 2020 | | [place] [facility] [address] | [address] | (mirtazapine) | | | | [address] | [place], [place] | | | | | for Health and | [address] | | | | | [address] 2 | | | | | | [place], [place] | | | | | | [address] | | | | | | | [...] [address] | | | | | | [place], [place] | | | | | | [address] | | | | | | [phone] | | | | | | | | +--------+ + + + + | 11/17/ | Video/TeleH | Pain Management | Florencio Lockett, | | | 2019 | ealth-Sched | | PhD [address] | | | | uled | | [place], [place] | | | | | | [address] | | | | | | [phone] | | | | | | | | +--------+ + + + + | 12/01/ | Video/TeleH | Pain Management | Florencio Lockett, | | | 2019 | ealth-Sched | | PhD [address] | | | | uled | | [place], [place] | | | | | | [address] | | | | | | [phone] | | | | | | | | +--------+ + + + + | 01/06/ | Office | Plastic Surgery | Kuldip Harrell MD | | | 2019 | Visit | | [address] | | | | | | [place], [place] | | | | | | [address] | | | | | | [phone] | | | | | | | [...]
--- OUTSIDE RECORDS SUMMARY | ~2019-11-06 | XMS | Encounter Summary ---
Demographics + + + | Address | [address] | | | [place] [address] | + + + | Home Phone [...] Surgery | | | 2017 | | [place] [address] [address] | | | | | | [address] [facility] | | | | | | for Health and | | | | | | Healing, Building [address] | | | | | | [place], [place] | | | | | | [address] | | | | | | [phone] | | | +--------+ + + + [...] | | 2019 | Visit | | [address] | | | | | | [place], [place] | | | | | | [address] | | | | | | [phone] | | | | | | | | +--------+ + + + + | 11/17/ | Video/TeleH | Pain Management | Florencio Lockett, | | | 2019 | ealth-Sched | | PhD [address] | | | | uled | | [place], [place] | | | | | | [address] | | | | | | [phone] | | | | | | | | +--------+ + + + + | 12/01/ | Video/TeleH | Pain Management | Florencio Lockett, | | | 2019 | ealth-Sched | | PhD [address] | | | | uled | | [place], [place] | | | | | | [address] | | | | | | [phone] | | | | | | | | +--------+ + + + + | 01/06/ | Office | Plastic Surgery | Kuldip Harrell MD | | 2019 | Visit | | [address] | | | | | | [place], [place] | | | | | | [address] | | | | | | [phone] | | | | | | | | +--------+ + + + + documented as of this encounter Visit Diagnoses Not on filedocumented in this encounter"
--- OUTSIDE RECORDS SUMMARY | ~2019-11-06 | XMS | Encounter Summary ---
Demographics + + + | Address | [address] | | | [place] [address] | + + + | Home Phone [...] Team Providers + +------+ + | Care Automotive Painter Name | Role | Phone | + [...] | on | Center at [facility] [address] | | | | | | [address] [facility] | | | | | | for Health and | | | | | | Healing, Building [address] | | | | | | [place], [place] | | | | | | [address] | | | | | | [phone] | | | +--------+ + + + [...] | | 2019 | Visit | | [address] | | | | | | [place], [place] | | | | | | [address] | | | | | | [phone] | | | | | | | | +--------+ + + + + | 11/17/ | Video/TeleH | Pain Management | Florencio Lockett, | | | 2019 | ealth-Sched | | PhD [address] | | | | uled | | [place], [place] | | | | | | [address] | | | | | | [phone] | | | | | | | | +--------+ + + + + | 12/01/ | Video/TeleH | Pain Management | Florencio Lockett, | | | 2019 | ealth-Sched | | PhD [address] | | | | uled | | [place], [place] | | | | | | [address] | | | | | | [phone] | | | | | | | | +--------+ + + + + | 01/06/ | Office | Plastic Surgery | Kuldip Harrell MD | | | 2019 | Visit | | [address] | | | | | | [place], [place] | | | | | | [address] | | | | | | [phone] | | | | | | | | +--------+ + + + + documented as of this encounter Visit Diagnoses Not on filedocumented in this encounter"
--- OUTSIDE RECORDS SUMMARY | ~2019-11-06 | XMS | Encounter Summary ---
Demographics + + + | Address | [address] | | | [place] [address] | + + + | Home Phone [...] Team Providers + +------+ + | Care Accounts Officer Name | Role | Phone | + +------+ + | Alisha Stovall PA-C | PCP | | + +------+ + Encounter Details +--------+ + + + + | Date | Type | Department | Care Team | Description | +--------+ + + + + | 11/29/ | Inside | [facility] at [facility] | Joe Watson ACNP | | | 2018 | Referral | [facility] [address] | [address] | | | | Order | [facility] for | [address] [place], | | | | | Health and Healing, | [place] [address] | | | | | Building [address] | [phone] | | | | | [place], [place] | | | | | | [address] | | | | | | [phone] | | | +--------+ + + + [...] [address] | | | | | | [place], [place] | | | | | | [address] | | | | | | [phone] | | | | | | | | +--------+ + + + + | 11/17/ | Video/TeleH | Pain Management | Florencio Lockett, | | | 2019 | ealth-Sched | | PhD [address] | | | | uled | | [place], [place] | | | | | | [address] | | | | | | [phone] | | | | | | | | +--------+ + + + + | 12/01/ | Video/TeleH | Pain Management | Florencio Lockett G, | | | 2020 | ealth-Sched | | PhD [address] | | | | uled | | [place], [place] | | | | | | [address] | | | | | | [phone] | | | | | | | | +--------+ + + + + | 01/06/ | Office | Plastic Surgery | Kuldip Harrell MD | | | 2019 | Visit | | [address] | | | | | | [place], [place] | | | | | | [address] | | | | | | [phone] | | | | | | | | +--------+ + + + + documented as of this encounter Results PH RETURN (01/11/2018 5:27 PM PDT) + + | Specimen | + + | | + + + +- + | Narrative | Performed At | + +- + | MRN: | [facility] | | [id number] Date: 01/12/2018Patient Name: Maria De Jesus Gonzalez #: | ENDOSCOPY | | [id number] of : 1990CSN: [id number] Type: | | | OutpatientRoom: Motility RoomProcedure: [...] + | MRN: | [facility] | | [id number] Date: 01/11/2018Patient Name: Maria De Jesus Gonzalez #: | ENDOSCOPY | | [id number] of : 1990CSN: [id number] Type: | | | OutpatientRoom: Motility RoomProcedure: [...]
--- OUTSIDE RECORDS SUMMARY | ~2019-11-06 | XMS | Encounter Summary ---
Demographics + + + | Address | [address] | | | [place] [address] | + + + | Home Phone [...] Team Providers + +------+ + | Care Legal Administrator Name | Role | Phone | + +------+ + | Alisha Stovall PA-C | PCP | | + +------+ + Encounter Details +--------+ + + + + | Date | Type | Department | Care Team | Description | +--------+ + + + + | 08/15/ | Abstract | Digestive Health | Clinic, Surgery | | | 2017 | | [address] [address] [address] | | | | | | [address] [facility] | | | | | | for Health and | | | | | | Healing, Building [address] | | | | | | [place], [place] | | | | | | [address] | | | | | | [phone] | | | +--------+ + + + [...] | | 2019 | Visit | | [address] | | | | | | [place], [place] | | | | | | [address] | | | | | | [phone] | | | | | | | | +--------+ + + + + | 11/17/ | Video/TeleH | Pain Management | Florencio Lockett, | | | 2019 | ealth-Sched | | PhD [address] | | | | uled | | [place], [place] | | | | | | [address] | | | | | | [phone] | | | | | | | | +--------+ + + + + | 12/01/ | Video/TeleH | Pain Management | Florencio Lockett, | | | 2019 | ealth-Sched | | PhD [address] | | | | uled | | [place], [place] | | | | | | [address] | | | | | | [phone] | | | | | | | | +--------+ + + + + | 01/06/ | Office | Plastic Surgery | Kuldip Harrell MD | | 2019 | Visit | | [address] | | | | | | [place], [place] | | | | | | [address] | | | | | | [phone] | | | | | | | | +--------+ + + + + documented as of this encounter Visit Diagnoses Not on filedocumented in this encounter"
--- OUTSIDE RECORDS SUMMARY | ~2019-11-06 | XMS | Encounter Summary ---
Demographics + + + | Address | [address] | | | [place] [address] | + + + | Home Phone [...] Team Providers + +------+ + | Care Global Professional Name | Role | Phone | + [...] | | | | | ([facility]) at [facility] [address] | [place], [place] | | | | | [address] | [address] | | | | | Mailcode: Ary | [phone] | | | | | [facility] and | | | | | | [address] | | | | | | [place], [place] | | | | | | [address] | | | | | | [phone] | | | +--------+ + + + [...] hours or on weekends and holiday Hospital End Matcher toll free [phone]. [phone] and have the GI doctor penetration tester paged. The GI Procedure Nurse who performed [...] [place] | | | | | | [address] | | | | | | [phone] | | | | | | | | +--------+ + + + + | 11/17/ | Video/TeleH | Pain Management | Florencio Lockett, | | | 2019 | ealth-Sched | | PhD [address] | | | | uled | | [place], [place] | | | | | | [address] | | | | | | [phone] | | | | | | | | +--------+ + + + + | 12/01/ | Video/TeleH | Pain Management | Florencio Lockett, | | | 2019 | ealth-Sched | | PhD [address] | | | | uled | | [place], [place] | | | | | | [address] | | | | | | [phone] | | | | | | | | +--------+ + + + + | 01/06/ | Office | Plastic Surgery | Kuldip Harrell MD | | | 2019 | Visit | | [address] | | | | | | [place], [place] | | | | | | [address] | | | | | | [phone] | | | | | | | [...] + | MRN: | [facility] | | [id number] Date: 04/12/2019Patient Name: Maria De Jesus AnnaOrder #: | Winsome NDOSCOPY | | [id number] of : 1990CSN: [id number] Type: | | | AmbulatoryRoom: 11Procedure: High [...]
--- OUTSIDE RECORDS SUMMARY | ~2019-11-06 | XMS | Encounter Summary ---
Demographics + + + | Address | [address] | | | [place] [address] | + + + | Home Phone | | + + + | Preferred Language | Unknown | + + + | Marital Status | | + + + | Rastafarian Affiliation | NRP | + + + | Race | White | + + + | Ethnic Group | Not or | + + + Author + + + | Author | [facility] | + + + | Organization | [facility] | + + + | Address | Unknown | + + + | Phone | Unavailable | + + + Support + + +---------+ + | Name | Relationship | Address | Phone | + + +---------+ + | Jeovanny Hernández | ECON | Unknown | | + + +---------+ + Care Team Providers + +------+ + | Care Inverted Block Operator Name | Role | Phone | + +------+ + | Alisha Stovall PA-C | PCP | | + +------+ + Encounter Details +--------+ + + + + | Date | Type | Department | Care Team | Description | +--------+ + + + + | 09/01/ | Outside | UNKNOWN DEPARTMENT | Other, Faculty | | | 2017 | Records | [address] [facility] | [phone] | | | | | [address] | | | | | | [place], [place] | | | | | | [address] | | | +--------+ + + + [...] | | 2020 | Visit | | [address] | | | | | | [place], [place] | | | | | | [address] | | | | | | [phone] | | | | | | | | +--------+ + + + + | 11/17/ | Video/TeleH | Pain Management | Florencio Lockett, | | | 2019 | ealth-Sched | | PhD [address] | | | | uled | | [place], [place] | | | | | | [address] | | | | | | [phone] | | | | | | | | +--------+ + + + + | 12/01/ | Video/TeleH | Pain Management | Florencio Lockett, | | | 2019 | ealth-Sched | | PhD [address] | | | | uled | | [place], [place] | | | | | | [address] | | | | | | [phone] | | | | | | | | +--------+ + + + + | 01/06/ | Office | Plastic Surgery | Kuldip Harrell MD | | | 2019 | Visit | | [address] | | | | | | [place], [place] | | | | | | [address] | | | | | | [phone] | | | | | | | [...]
--- OUTSIDE RECORDS SUMMARY | ~2019-11-06 | XMS | Encounter Summary ---
Demographics + + + | Address | [address] | | | [place] [address] | + + + | Home Phone | | + + + | Preferred Language | Unknown | + + + | Marital Status | | + + + | Uatsdin Affiliation | Unknown | + + + | Race | Unknown | + + + | Ethnic Group | Unknown | + + + Author + + + | Author | [facility] | | | and [place] | + + + | Organization | [facility] | | | [...] [place], | | | | | [place] [address] | | + + + + + Care Team Providers + +------+ + | Care Harp Repairer Name | Role | Phone | [...] | Results | | 2019 | | [facility] | MD [address] | | | | | CLINIC [address] | [address] | | | | | [address], | [place] [address] | | | | | [place] [address] | [phone] | | | | | [phone] | | | +--------+ + + + [...] [place] | | | | | | [address] | | | | | | [phone] | | | | | | | | +--------+---------+ + + + | 11/25/ | Office | Cardiology | Katheryn Hammonds DO | | | 2019 | Visit | | [address] | | | | | | [place] | | | | | | [address] | | | | | | | | +--------+---------+ + + + documented as of this encounter Visit Diagnoses Not on filedocumented in this encounter"
--- OUTSIDE RECORDS SUMMARY | ~2019-11-06 | XMS | Encounter Summary ---
Demographics + + + | Address | [address] | | | [place] [address] | + + + | Home Phone [...] Team Providers + +------+ + | Care Rehabilitation Program Coordinator Name | Role | Phone | [...] | Gastroenterol | Diagnoses | Cierra, | Alesasndra, | | | | ogy | | Kenan Santos MD | MD Casie | | | | | Gastroesopha | [address] | [address] | | | | | geal reflux | [address] | [address] | | | | | disease, | [facility] [place] | [place], | | | | | esophagitis | [address] | [place] | | | | | presence not | Phone: | [address] | | | | | specified | [phone] | Phone: | | | | | S/P gastric | Fax: | [phone] | | | | | bypass | [phone] | Fax: | | | | | Epigastric | | [phone] | | | | | pain | [...] Closed | | Gastroenterol | Diagnoses | Petros, | Gas Endo | | | | ogy | | Kenan Santos MD | [facility] [address] | | | | | Gastroesopha | [address] | | | | | geal reflux | [address] | [place] for | | | | | disease, | [place], [place] | Health and | | | | | esophagitis | [address] | Healing, | | | | | presence not | Phone: | Building [address] | | | | | specified | | [place], [place] | | | | | S/P gastric | Fax: | [address] | | | | | bypass | [phone] | Phone: | | | | | Epigastric | | [phone] | | | | | pain | | Fax: | | | | | Decreased | | [phone] | | | | | oral intake [...] 2019 | Encounter | Center at [facility] [address] | MD [address] | | | | | [address] [place] | [place], [place] | | | | | for Health and | [address] | | | | | [address] [address] | [phone] | | | | | [place], [place] | | | | | | [phone] | | | | | | | [...] Ortega | | | | | | [place], [place] | | | | | | [address] | | | | | | [phone] | | | | | | | | +--------+ + + + + | 11/17/ | Video/TeleH | Pain Management | Florencio Lockett, | | | 2019 | ealth-Sched | | PhD [address] | | | | uled | | [place], [place] | | | | | | [address] | | | | | | [phone] | | | | | | | | +--------+ + + + + | 12/01/ | Video/TeleH | Pain Management | Florencio Lockett, | | | 2019 | ealth-Sched | | PhD [address] | | | | uled | | [place], [place] | | | | | | [address] | | | | | | [phone] | | | | | | | | +--------+ + + + + | 01/06/ | Office | Plastic Surgery | Kuldip Harrell MD | | | 2019 | Visit | | [address] | | | | | | [place], [place] | | | | | | [address] | | | | | | [phone] | | | | | | | [...]
--- OUTSIDE RECORDS SUMMARY | ~2019-11-06 | XMS | Encounter Summary ---
Demographics + + + | Address | [address] | | | [place] [address] | + + + | Home Phone [...] Team Providers + +------+ + | Care Restaurant Cook Name | Role | Phone | + [...] Refill Request | | 2020 | | [facility] [address] | MD [address] | (simethicone ) | | | | [address] | [place], [place] | | | | | for Health and | [address] | | | | | [facility] 2 | | | | | | [place], [place] | | | | | | [address] | | | | | | | [...] | | 2019 | Visit | | [address] | | | | | | [place], [place] | | | | | | [address] | | | | | | [phone] | | | | | | | | +--------+ + + + + | 11/17/ | Video/TeleH | Pain Management | Florencio Lockett, | | | 2019 | ealth-Sched | | PhD [address] | | | | uled | | [place], [place] | | | | | | [address] | | | | | | [phone] | | | | | | | | +--------+ + + + + | 12/01/ | Video/TeleH | Pain Management | Florencio Lockett, | | | 2019 | ealth-Sched | | PhD [address] | | | | uled | | [place], [place] | | | | | | [address] | | | | | | [phone] | | | | | | | | +--------+ + + + + | 01/06/ | Office | Plastic Surgery | Kuldip Harrell MD | | | 2019 | Visit | | [address] | | | | | | [place], [place] | | | | | | [address] | | | | | | [phone] | | | | | | | | +--------+ + + + + documented as of this encounter Visit Diagnoses + + | Diagnosis | + + | Morbid obesity (HCC) Morbid obesity | + + documented in this encounter"
--- OUTSIDE RECORDS SUMMARY | ~2019-11-06 | XMS | Encounter Summary ---
Demographics + + + | Address | [address] | | | [place] [address] | + + + | Home Phone | | + + + | Preferred Language | Unknown | + + + | Marital Status | | + + + | Shinto Affiliation | NRP | + + + | Race | White | + + + | Ethnic Group | Not or | + + + Author + + + | Author | [facility] | + + + | Organization | [facility] | + + + | Address | Unknown | + + + | Phone | Unavailable | + + + Support + + +---------+ + | Name | Relationship | Address | Phone | + + +---------+ + | Jeovanny Hernández | ECON | Unknown | | + + +---------+ + Care Team Providers + +------+ + | Care Manager Editorial Name | Role | Phone | + [...] | | [facility] | [facility] [place] | | | | | Health and Healing, | [address] | | | | | [address] | [phone] | | | | | Floor [place], [place] | | | | | | [address] | | | | | | [phone] | | | +--------+ + + + [...] Ave | | | | | | [place], [place] | | | | | | [address] | | | | | | [phone] | | | | | | | | +--------+ + + + + | 11/17/ | Video/TeleH | Pain Management | Florencio Lockett, | | | 2019 | ealth-Sched | | PhD [address] | | | | uled | | [place], [place] | | | | | | [address] | | | | | | [phone] | | | | | | | | +--------+ + + + + | 12/01/ | Video/TeleH | Pain Management | Florencio Lockett, | | | 2019 | ealth-Sched | | PhD [address] | | | | uled | | [place], [place] | | | | | | [address] | | | | | | [phone] | | | | | | | | +--------+ + + + + | 01/06/ | Office | Plastic Surgery | Kuldip Harrell MD | | | 2019 | Visit | | [address] | | | | | | [place], [place] | | | | | | [address] | | | | | | [phone] | | | | | | | [...] images. Fluoro Time: 60 sec FINDINGS: Initial business trainer | | | radiograph demonstrates surgical sutures [...] Time: 60 sec | | FINDINGS: Initial business trainer radiograph demonstrates surgical sutures over the left [...] Soler MD 05/03/2019 5:31 PM | |Preliminary: Ulisse Soler MD | |Dictation initiated: Uliess Soler MD 05/03/2019 5:21 PM | + [...]
--- OUTSIDE RECORDS SUMMARY | ~2019-11-06 | XMS | Encounter Summary ---
Demographics + + + | Address | [address] | | | [place] [address] | + + + | Home Phone [...] Team Providers + +------+ + | Care College Sports Coach Name | Role | Phone | [...] 2019 | | Center at [facility] | MD [address] | not EGD) | | | | [address] | [facility] [place] | | | | | for Health and | [address] | | | | | [facility] 2 | | | | | | [place], [place] | | | | | | [address] | | | | | | | [...] | | 2019 | Visit | | [address] | | | | | | [place], [place] | | | | | | [address] | | | | | | [phone] | | | | | | | | +--------+ + + + + | 11/17/ | Video/TeleH | Pain Management | Florencio Lockett, | | | 2019 | ealth-Sched | | PhD [address] | | | | uled | | [place], [place] | | | | | | [address] | | | | | | [phone] | | | | | | | | +--------+ + + + + | 12/01/ | Video/TeleH | Pain Management | Florencio Lockett, | | | 2019 | ealth-Sched | | PhD [address] | | | | uled | | [place], [place] | | | | | | [address] | | | | | | [phone] | | | | | | | | +--------+ + + + + | 01/06/ | Office | Plastic Surgery | Kuldip Harrell MD | | | 2019 | Visit | | [address] | | | | | | [place], [place] | | | | | | [address] | | | | | | [phone] | | | | | | | | +--------+ + + + + documented as of this encounter Visit Diagnoses Not on filedocumented in this encounter"
--- OUTSIDE RECORDS SUMMARY | ~2019-11-06 | XMS | Encounter Summary ---
Demographics + + + | Address | [address] | | | [place] [address] | + + + | Home Phone [...] Providers + +------+ + | Care Provisioning Specialist Name | Role | Phone | [...] | | | | | | | SC | | | | | | | ESOPHAGEAL | | | | | | | MOTILITY | | | | | | | STUDY | | | | | | | W/INTERP AND | | | | | | | REPORT SC | | | | | | | G-ESOPH | | | | | | | REFLX TST | | | | | | | W/ELECTROD | | | +--------+--------+ + + + + Encounter Details +--------+------+ + + + | Date | Type | Department | Care Team | Description | +--------+------+ + + + | 04/12/ | Lab | Laboratory at [facility] | | S/P gastric bypass | | 2018 | | [address] | | | | | | [facility] | | | | | | and Healing, | | | | | | Building [address] | | | | | | [place], [place] | | | | | | [address] | | | | | | [phone] | | | +--------+------+ + + + [...] Ave | | | | | | [place], [place] | | | | | | [address] | | | | | | [phone] | | | | | | | | +--------+ + + + + | 11/17/ | Video/TeleH | Pain Management | Florencio Lockett, | | | 2019 | ealth-Sched | | PhD [address] | | | | uled | | [place], [place] | | | | | | [address] | | | | | | [phone] | | | | | | | | +--------+ + + + + | 12/01/ | Video/TeleH | Pain Management | Florencio Lockett, | | | 2019 | ealth-Sched | | PhD [address] | | | | uled | | [place], [place] | | | | | | [address] | | | | | | [phone] | | | | | | | | +--------+ + + + + | 01/06/ | Office | Plastic Surgery | Kuldip Harrell MD | | | 2019 | Visit | | [address] | | | | | | [place], [place] | | | | | | [address] | | | | | | [phone] | | | | | | | [...] LABORATORY | [address] | [place] [address] | | | [facility] | | | | | HEALTH + [...] LABORATORY | | | | | | [facility], | | | | | | [place] [facility] | | | | | | [...] | + + + + + | [facility] | [address] | [place] [address] | | | SERVICES, [place] [facility] | | | | | HEALTH [...] INTFC | | | | determined by [facility] | | | | | | Laboratories. See | | | | | | Compliance Statement B: | | | | | | [facility]/CSPerformed | | | | | | by [facility],[address] | | | | | | Francisca Osvaldo, [facility] | | | | | | [address] | | | | | | [phone].Chrends. | | | | | | Fiberspar, Josué Lantigua MD, | | | | [...] [facility] | [address] | [place], [place] | | | UNIV PTH - INTFC | | [address] | | + + + + + [...] | | | | | determined by [facility] | | | | | | Laboratories. See | | | | | | Compliance Statement B: | | | | | | [facility]/CSPerformed | | | | | | by [employer],[address] | | | | | | [place], [place] | | | | | | [address] | | | | | | [phone].Chrends. | | | | | | FibersparJosué MD, | | | | | | [...] [facility] | [address] | [place], [place] | | | UNIV PTH - INTFC | | [address] | | + + + + + [...] [facility] | [address] | [place] [address] | | | SERVICES, CORE | PARK [...] | + + + + + | [facility] | [address] | [place] [address] | | | SERVICES, CORE | SAMMI [...] | | | | | determined by [facility] | | | | | | Laboratories. See | | | | | | Compliance Statement B: | | | | | | Ch[facility]/CSPerformed | | | | | | by [facility],[address] | | | | | | [facility] | | | | | | [address] | | | | | | [phone].Chrends. | | | | | | comJosué [...] [facility] | [address] | [place], [place] | | | UNIV PTH - INTFC | | [address] | | + + + + + [...] [facility] | | | (PAULIE EMMANUEL) | [facility],[address] | | REG UNIV | | | SERUM | Francisca Riley, [facility] | | PTH - INTFC | | | | [address] | | | | | | [phone].Chrends. | | | | | | Fiberspar, Josué Lantigua MD, | | | | | | Lab. Director | | | | + + + + + + | VITAMIN E | 5.9Comment: Test | 5.5 - 18.0 mg/L | [facility] | | | (ALPHA | developed and | | REG UNIV | | | EMMANUEL), SERUM | characteristics | | PTH - INTFC | | | | determined by [facility] | | | | | | Laboratories. See | | | | | | Compliance Statement B: | | | | | | Ch[facility]ibers[facility]/CS | | | | + + + + + + + + | Specimen | + + | Blood - Blood | | (substance) | + + + + + + + | Performing | Address | City/State/Zipcode | Phone Number | | Organization | | | | + + + + + | [facility] | [address] | [place], [place] | | | UNIV PTH - INTFC | | [address] | | + + + + + [...] | | | | | determined by [facility] | | | | | | Laboratories. See | | | | | | Compliance Statement B: | | | | | | Chrends[facility]ibers[facility]/CSPerformed | | | | | | by [facility],[address] | | | | | | [facility],[place] | | | | | | [address] | | | | | | [phone].Chrends. | | | | | | [facility] center[facility]é MD, | | | | [...] [facility] | [address] | [place], [place] | | | UNIV PTH - INTFC | | [address] | | + + + + + [...] | + + + + + | [facility] | [address] | [place] [address] | | | SERVICES, CORE | PARK [...] | + + + + + | [facility] | [address] | [place] [address] | | | SERVICES, SPECIAL | SAMMI [...] + + + | QUYEN [facility] | [address] | [place] [address] | | | SARAH, ADONAY | SAMMI [...] | | | | | determined by [facility] | | | | | | Laboratories. See | | | | | | Compliance Statement B: | | | | | | Chrends.Fiberspar/CSPerformed | | | | | | by [facility],[address] | | | | | | [facility],[place] | | | | | | [address] | | | | | | [phone].[employer]. | | | | | | comJosué [...] [facility] | [address] | [place], [place] | | | UNIV PTH - INTFC | | [address] | | + + + + + [...] | | | LABORATORY | | | INDONESIAN | | | SERVICES, | | | [...] | + + + + + | [facility] [address] | [address] | [place] [address] | | | SERVICES, [place] [facility] | | | | | HEALTH + HEALING | | | | + + + + + documented in this encounter Visit Diagnoses + + | Diagnosis | + + | S/P gastric bypass Bariatric surgery status | + + documented in this encounter"
--- OUTSIDE RECORDS SUMMARY | ~2019-11-06 | XMS | Encounter Summary ---
Demographics + + + | Address | [address] | | | [place] [address] | + + + | Home Phone [...] Team Providers + +------+ + | Care Inspector Packer Glass Container Name | Role | Phone | + [...] | | | Surg Chh2 | Ch[facility]2 [address] | | | | | | [address] | [address] | | | | | | Ave Center | Center for | | | | | | for Health | Health and | | | | | | and Healing, | Healing, | | | | | | Building 2 | Building 2 | | | | | | [place], | [place], [place] | | | | | | [place] | [address] | | | | | | [address] | Phone: | | | | | | Phone: | [phone] | | | | | | [phone] | Fax: | | | | | | Fax: | [phone] | | | | | | [phone] | | +--------+--------+ + + + + [...] [address] | [place], [place] | obesity (HCC) | | | | for Health and | [address] | | | | | [facility] 2 | [phone] | | | | | [place], [place] | | | | | | [address] | | | | | | [phone] | | | +--------+---------+ + + + [...] of visit: 1:08 to 1:35 (27 minutes dmtl-kg-tyos with patient) Surgery: Gastric Bypassand Cholecystectomy Date [...] multivitamin & mineral (with iron) supplement, 2/day -9257-4472 mg calcium citrate with vitamin D/day (take in divided doses, not within 2 hour s of multivitamin or iron supplement) -500 mcg/day sublingual B12 supplement (or monthly injections) Continued to reinforce importance of mindful eating. Continue to increase physical activity. Follow up in 3 mo. Katheryn Perdomo, MS, RDN, CSOWM, LD, CDE [facility] Bariatrics [phone] documented in this e ncounter Plan of Treatment +--------+ + + + + | Date | Type | Specialty | Care Team | Description | +--------+ + + + + | 11/13/ | Office | Gastroenterology | Cassidy Schneider, | | | 2019 | Visit | | [address] | | | | | | [place], [place] | | | | | | [address] | | | | | | [phone] | | | | | | | | +--------+ + + + + | 11/17/ | Video/TeleH | Pain Management | Florencio Lockett, | | | 2019 | ealth-Sched | | PhD [address] | | | | uled | | [place], [place] | | | | | | [address] | | | | | | [phone] | | | | | | | | +--------+ + + + + | 12/01/ | Video/TeleH | Pain Management | Florencio Lockett G, | | | 2019 | ealth-Sched | | PhD [address] | | | | uled | | [place], [place] | | | | | | [address] | | | | | | [phone] | | | | | | | | +--------+ + + + + | 01/06/ | Office | Plastic Surgery | Kuldip Harrell MD | | | 2019 | Visit | | [address] | | | | | | [place], [place] | | | | | | [address] | | | | | | [phone] | | | | | | | | +--------+ + + + + documented as of this encounter Procedures + +--------+ + + + | Procedure Name | Priori | Date/Time | Associated Diagnosis | Comments | | | ty | | | | + +--------+ + + + | IA MNT RE-ASSESSMNT | Routin | 12/21/2018 | [...]
--- OUTSIDE RECORDS SUMMARY | ~2019-11-06 | XMS | Encounter Summary ---
Demographics + + + | Address | [address] | | | [place] [address] | + + + | Home Phone [...] + + | Author | [facility] | | | and [place] | + + + | Organization | [facility] | | | and [...] [place], | | | | | [place] [address] | | + + + + + Care Team Providers + +------+ + | Care Pipelines Supervisor Name | Role | Phone | [...] Medication Refill | | 2020 | | [facility] | Matt, COMMUNITY RELATIONS ADVISOR [address] | | | | | CL[address] | [address] [facility], | | | | | [address] [place], | [place] [address] | | | | | [place] [address] | [phone] | | | | | [phone] | | | +--------+--------+ + + + [...] - 06/11/2019 8:16 AM PSTFax request from: [facility] topiramate (TOPAMAX) 50 MG tablet Last fill [...] [place] | | | | | | [address] | | | | | | [phone] | | | | | | | | +--------+---------+ + + + | 11/25/ | Office | Cardiology | Katheryn Hammonds DO | | | 2019 | Visit | | [address] | | | | | | [place] | | | | | | [address] | | | | | | | [...]
--- OUTSIDE RECORDS SUMMARY | ~2019-11-06 | XMS | Encounter Summary ---
Demographics + + + | Address | [address] | | | [place] [address] | + + + | Home Phone [...] Team Providers + +------+ + | Care Exercise Planner Name | Role | Phone | + +------+ + | Alisha Stovall PA-C | PCP | | + +------+ + Encounter Details +--------+ + + + + | Date | Type | Department | Care Team | Description | +--------+ + + + + | 04/25/ | Adult Neuropsychologist | Digestive Health | Kenan Norton, | S/P gastric bypass | | 2020 | | Center at [facility] [address] | MD [address] | (Primary Dx); | | | | [address] | [facility] [place] | Inadequate oral | | | | for Health and | [address] | intake | | | | Healing, [address] | [phone] | | | | | [place], [place] | | | | | | [address] | | | | | | | [...] [address] | | | | | | [place], [place] | | | | | | [address] | | | | | | [phone] | | | | | | | | +--------+ + + + + | 11/17/ | Video/TeleH | Pain Management | Florencio Lockett, | | | 2019 | ealth-Sched | | PhD [address] | | | | uled | | [place], [place] | | | | | | [address] | | | | | | [phone] | | | | | | | | +--------+ + + + + | 12/01/ | Video/TeleH | Pain Management | Florencio Lockett, | | | 2019 | ealth-Sched | | PhD [address] | | | | uled | | [place], [place] | | | | | | [address] | | | | | | [phone] | | | | | | | | +--------+ + + + + | 01/06/ | Office | Plastic Surgery | Kuldip Harrell MD | | | 2019 | Visit | | [address] | | | | | | [place], [place] | | | | | | [address] | | | | | | [phone] | | | | | | | [...]
--- OUTSIDE RECORDS SUMMARY | ~2019-11-06 | XMS | Encounter Summary ---
Demographics + + + | Address | [address] | | | [place] [address] | + + + | Home Phone [...] Team Providers + +------+ + | Care Cable Installer Name | Role | Phone | [...] | [address] | [place], | | | | | Loop [place], [place] | [place] [address] | | | | | [address] | [phone] | | | | | [phone] | | | +--------+--------+ + + + [...] | | 2020 | Visit | | [address] | | | | | | [place], [place] | | | | | | [address] | | | | | | [phone] | | | | | | | | +--------+ + + + + | 11/17/ | Video/TeleH | Pain Management | Florencio Lockett, | | | 2019 | ealth-Sched | | PhD [address] | | | | uled | | [place], [place] | | | | | | [address] | | | | | | [phone] | | | | | | | | +--------+ + + + + | 12/01/ | Video/TeleH | Pain Management | Florencio Lockett, | | | 2019 | ealth-Sched | | PhD [address] | | | | uled | | [place], [place] | | | | | | [address] | | | | | | [phone] | | | | | | | | +--------+ + + + + | 01/06/ | Office | Plastic Surgery | Kuldip Harrell MD | | | 2019 | Visit | | [address] | | | | | | [place], [place] | | | | | | [address] | | | | | | [phone] | | | | | | | | +--------+ + + + + documented as of this encounter Visit Diagnoses Not on filedocumented in this encounter"
--- OUTSIDE RECORDS SUMMARY | ~2019-11-06 | XMS | Encounter Summary ---
Demographics + + + | Address | [address] | | | [place] [address] | + + + | Home Phone [...] Team Providers + +------+ + | Care Chart Calculator Name | Role | Phone | + +------+ + | Alisha Stovall PA-C | PCP | | + +------+ + Encounter Details +--------+ + + + + | Date | Type | Department | Care Team | Description | +--------+ + + + + | 03/22/ | MyChart | Pain Center at [facility] | Florencio Lockett, | MyChart Message | | 2018 | Encounter | [address] | PhD [address] | | | | | Center for Health | [place], [place] | | | | | and Healing, | [address] | | | | | | [phone] | | | | | Floor [place], [place] | | | | | | [address] | | | | | | [phone] | | | +--------+ + + + [...] [address] | | | | | | [place], [place] | | | | | | [address] | | | | | | [phone] | | | | | | | | +--------+ + + + + | 11/17/ | Video/TeleH | Pain Management | Florencio Lockett, | | | 2019 | ealth-Sched | | PhD [address] | | | | uled | | [place], [place] | | | | | | [address] | | | | | | [phone] | | | | | | | | +--------+ + + + + | 12/01/ | Video/TeleH | Pain Management | Florencio Lockett G, | | | 2019 | ealth-Sched | | PhD [address] | | | | uled | | [place], [place] | | | | | | [address] | | | | | | [phone] | | | | | | | | +--------+ + + + + | 01/06/ | Office | Plastic Surgery | Kuldip Harrell MD | | | 2019 | Visit | | [address] | | | | | | [place], [place] | | | | | | [address] | | | | | | [phone] | | | | | | | | +--------+ + + + + documented as of this encounter Visit Diagnoses Not on filedocumented in this encounter"
--- OUTSIDE RECORDS SUMMARY | ~2019-11-06 | XMS | Encounter Summary ---
Demographics + + + | Address | [address] | | | [place] [address] | + + + | Home Phone [...] Providers + +------+ + | Care Gang Ripsaw Operator Name | Role | Phone | + +------+ + | Alisha Stovall PA-C | PCP | | + +------+ + Encounter Details +--------+ + + + + | Date | Type | Department | Care Team | Description | +--------+ + + + + | 03/22/ | MyChart | Pain Center at [facility] | Florencio Lockett, | MyChart Message | | 2018 | Encounter | [address] | PhD [address] | | | | | Center for Health | [place], [place] | | | | | and Healing, | [address] | | | | | | [phone] | | | | | Floor [place], [place] | | | | | | [address] | | | | | | [phone] | | | +--------+ + + + [...] [address] | | | | | | [place], [place] | | | | | | [address] | | | | | | [phone] | | | | | | | | +--------+ + + + + | 11/17/ | Video/TeleH | Pain Management | Florencio Lockett, | | | 2019 | ealth-Sched | | PhD [address] | | | | uled | | [place], [place] | | | | | | [address] | | | | | | [phone] | | | | | | | | +--------+ + + + + | 12/01/ | Video/TeleH | Pain Management | Florencio Lockett G, | | | 2019 | ealth-Sched | | PhD [address] | | | | uled | | [place], [place] | | | | | | [address] | | | | | | [phone] | | | | | | | | +--------+ + + + + | 01/06/ | Office | Plastic Surgery | Kuldip Harrell MD | | | 2019 | Visit | | [address] | | | | | | [place], [place] | | | | | | [address] | | | | | | [phone] | | | | | | | | +--------+ + + + + documented as of this encounter Visit Diagnoses Not on filedocumented in this encounter"
--- OUTSIDE RECORDS SUMMARY | ~2019-11-06 | XMS | Encounter Summary ---
Demographics + + + | Address | [address] | | | [place] [address] | + + + | Home Phone [...] Team Providers + +------+ + | Care Clipper And Turner Name | Role | Phone | + [...] | Pain | Diagnoses | Petcu, | Perioperative Tech Psych | | | | Management | Morbid | Aura, ACNP | [address] | | | | | obesity | [address] | [address] | | | | | ([facility]) | [facility] | [place] [facility] | | | | | Diabetes | Rd | Health and | | | | | mellitus | [place], [place] | Healing, | | | | | treated with | [address] | Building | | | | | oral | Phone: | 1,15th Floor | | | | | medication | [phone] | [facility] [place] | | | | | (HCC) | Fax: | [address] | | | | | Hypertension | [phone] | Phone: | | | | | , | | [phone] | | | | | unspecified | | Fax: | | | | | type | | [phone] | | | | | Asthma, | [...] | Bariatri Surg | | | with SENIOR INTEGRATION DEVELOPER | | | Surg Chh2 | Chh2 [...] 2 | | | | | | [place], | [place], [place] | | | | | | [place] | [address] | | | | | | [address] | Phone: | | | | | | Phone: | | | | | | | | Fax: | | | | | | Fax: | [phone] | | | | | | [phone] | | +--------+ + + + + + Encounter Details +--------+---------+ + + + | Date | Type | Department | Care Team | Description | +--------+---------+ + + + | 11/10/ | Office | Digestive Health | Jody Watson ACNP | Morbid obesity (HCC) | | 2018 | Visit | Center at [facility] [address] | [address] | (Primary Dx); | | | | [facility] | [address] [place], | Diabetes mellitus | | | | for Health and | [place] [address] | treated with oral | | | | Healing, Building 2 | [phone] | medication ([facility]); | | | | [place], [place] | | Hypertension, | | | | [address] | | unspecified type; | | | | [phone] | | Asthma, unspecified | | | [...] Pre-op Psychological Evaluation: Your referral is at [facility], the Pain Management Office w ill call you in the next week to schedule. + CPAP compliance: you will need to show CPAP compliance prior to surgery + Weight Management classes: 2 classes are required in addition to your private appointme nt with the driving school instructor. These classes will be scheduled apporoximately 1 month apart to allow time for you to put the teaching into action. Please call [phone] to schedule these classes after you have had your Dietitia n Appointment + Insurance requirements: your insurance requires : 6 month evaluation period Each insurance can have different requirements. Please CHECK with your insurance company to be sure you are meeting their requirements If you have any questions please call your insurance provider or call our main office jeff kim [phone] to have us help clarify. + Recommended [...] a healthy weight. + Sign up for T[employer]ark[employer] so that we can communicate easily back [...] other providers does not guarantee that the [facility] Bariatric Surger y program will deem you a surgical candidate. 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 Positive hypertension. Denies hyperlipidemia. Denies CHF, MO, ischemic heart disease, DVT/PE, or pulmonary hypertension. [...] pericarditis -per pt report -does not see career services assistant -ekg and cards consult due to CAD [...] Pre-op Psychological Evaluation: Your referral is at [facility], the Pain Management Office w ill call you in the next week to schedule. + CPAP compliance: you will need to show CPAP compliance prior to surgery + Weight Management classes: 2 classes are required in addition to your private appointme nt with the driving school instructor. These classes will be scheduled apporoximately 1 month apart to allow time for you to put the teaching into action. Please call [phone] to schedule these classes after you have had your Dietitia n Appointment + Insurance requirements: your insurance requires : 6 month evaluation period Each insurance can have different requirements. Please CHECK with your insurance company to be sure you are meeting their requirements If you have any questions please call your insurance provider or call our main office jeff kim [phone] to have us help clarify. + Recommended [...] a healthy weight. + Sign up for [employer]ociety so that we can communicate easily back [...] other providers does not guarantee that the [facility] Bariatric Surger y program will deem you a surgical candidate. Jody Watson, MSN, AG-ACNP, WET PRESS TENDER Bariatric Surgery Nurse Practitioner [facility] | [address] | [place], [place] | [address] | I have spent 95 min with [...] [address] | | | | | | [place], [place] | | | | | | [address] | | | | | | [phone] | | | | | | | | +--------+ + + + + | 11/17/ | Video/TeleH | Pain Management | Piyush Lockett, | | | 2019 | ealth-Sched | | PhD [address] | | | | uled | | [place], [place] | | | | | | [address] | | | | | | [phone] | | | | | | | | +--------+ + + + + | 12/01/ | Video/TeleH | Pain Management | Piyush Lockett G, | | | 2019 | ealth-Sched | | PhD [address] | | | | uled | | [facility] [place] | | | | | | [address] | | | | | | [phone] | | | | | | | | +--------+ + + + + | 01/06/ | Office | Plastic Surgery | Kuldip Harrell MD | | | 2019 | Visit | | [address] | | | | | | [place], [place] | | | | | | [address] | | | | | | [phone] | | | | | | | [...] | | | | | | (FORMERLY [facility]) | | | | | [...] | + + + + + | [facility] | [address] | [place] [address] | | | SERVICES, CORE | SAMMI [...] | + + + + + | [facility] | [address] | [place] [address] | | | SERVICES, CORE | PARK [...] [facility] | [address] | [place] [address] | | | SERVICES, CORE | PARK [...] [facility] | [address] | [place] [address] | | | SERVICES, CORE | PARK [...] [facility] | [address] | [place] [address] | | | SERVICES, CORE | PARK [...] [facility] | [address] | [place] [address] | | | ADONAY SMITH | SAMMI [...] DEPT OF | [address] | [place], [place] | | | CARDIOLOGY | [address] | [address] | | + + + + + [...]
--- OUTSIDE RECORDS SUMMARY | ~2019-11-06 | XMS | Encounter Summary ---
Demographics + + + | Address | [address] | | | [place] [address] | + + + | Home Phone [...] Team Providers + +------+ + | Care Gelatin Dynamite Packing Operator Name | Role | Phone | [...] Request | | 2019 | | Center [place] [address] [address] | [address] | | | | | [address] [facility] | [facility], | | | | | for [facility] and | [place] [address] | | | | | [place] [address] | [phone] | | | | | [place], [place] | | | | | | [address] | | | | | | [phone] | | | +--------+--------+ + + + [...] [address] | | | | | | [place], [place] | | | | | | [address] | | | | | | [phone] | | | | | | | | +--------+ + + + + | 11/17/ | Video/TeleH | Pain Management | Florencio Lockett, | | | 2019 | ealth-Sched | | PhD [address] | | | | uled | | [place], [place] | | | | | | [address] | | | | | | [phone] | | | | | | | | +--------+ + + + + | 12/01/ | Video/TeleH | Pain Management | Florencio Lockett, | | | 2019 | ealth-Sched | | PhD [address] | | | | uled | | [place], [place] | | | | | | [address] | | | | | | [phone] | | | | | | | | +--------+ + + + + | 01/06/ | Office | Plastic Surgery | Kuldip Harrell MD | | | 2019 | Visit | | [address] | | | | | | [place], [place] | | | | | | [address] | | | | | | [phone] | | | | | | | | +--------+ + + + + documented as of this encounter Visit Diagnoses Not on filedocumented in this encounter"
--- OUTSIDE RECORDS SUMMARY | ~2019-11-06 | XMS | Encounter Summary ---
Demographics + + + | Address | [address] | | | [place] [address] | + + + | Home Phone | | + + + | Preferred Language | Unknown | + + + | Marital Status | | + + + | Zoroastrian Affiliation | Unknown | + + + | Race | Unknown | + + + | Ethnic Group | Unknown | + + + Author + + + | Author | [facility] | | | and [place] | + + + | Organization | [facility] | | [...] [place], | | | | | [place] [address] | | + + + + + Care Team Providers + +------+ + | Care Electronic Organ Mechanic Name | Role | Phone | [...] + + | 09/18/ | Office | [facility] | Katheryn Hammonds DO | Hypotension, | | 2020 | Visit | CARDIOLOGY [facility]UL | [address] | unspecified | | | | [address] [facility] | [address] [place], [place] | hypotension type | | | | [address] | [id number] | (Primary Dx); | | | | [place] | | Dizziness | | | | [address] | | | | | | [phone] | | | +--------+---------+ + + + [...] Hammonds DO - 09/19/2019 10:00 AM PDT [facility] Cardiology Cardiology Follow Up Note Reason [...] rafael ing well. She is followed at [facility]. She was getting IV [...] been low recently. She followed up in [place] with her surgeon and there are plans [...] file Gets together: Not on file Attends hinduism service: Not on file Active member of [...] | Visit | | [address] [place] | | | | | | [place] | | | | | | [address] | | | | | | [phone] | | | | | | | | +--------+---------+ + + + | 11/25/ | Office | Cardiology | Katheryn Hammonds DO | | | 2019 | Visit | | [address] | | | | | | [place] | | | | | | [address] | | | | | | | | +--------+---------+ + + + documented as of this encounter Visit Diagnoses + + | Diagnosis | + + | Hypotension, unspecified hypotension type - Primary | + + | Dizziness Dizziness and giddiness | + + documented in this encounter
--- OUTSIDE RECORDS SUMMARY | ~2019-11-06 | XMS | Encounter Summary ---
Demographics + + + | Address | [address] | | | [place] [address] | + + + | Home Phone | | + + + | Preferred Language | Unknown | + + + | Marital Status | | + + + | Restoration Affiliation | NRP | + + + [...] Team Providers + +------+ + | Care Engineering Clerk Name | Role | Phone | + +------+ + | Alisha Stovall PA-C | PCP | | + +------+ + Encounter Details +--------+ + + + + | Date | Type | Department | Care Team | Description | +--------+ + + + + | 02/15/ | Transcribe | [facility] | Transcribe | | | 2019 | Orders | [facility] [address] | Encounter, Provider, | | | | | [address] [place] for | MD [address] | | | | | Health and Healing, | [place] [address] | | | | | Building [address] | | | | | | [place], [place] | | | | | | [address] | | | | | | [phone] | | | +--------+ + + + [...] Ave | | | | | | [place], [place] | | | | | | [address] | | | | | | [phone] | | | | | | | | +--------+ + + + + | 11/17/ | Video/TeleH | Pain Management | Florencio Lockett, | | | 2019 | ealth-Sched | | PhD [address] | | | | uled | | [place], [place] | | | | | | [address] | | | | | | [phone] | | | | | | | | +--------+ + + + + | 12/01/ | Video/TeleH | Pain Management | Florencio Lockett, | | | 2019 | [facility] | | PhD [address] | | | | uled | | [place], [place] | | | | | | [address] | | | | | | [phone] | | | | | | | | +--------+ + + + + | 01/06/ | Office | Plastic Surgery | Kuldip Harrell MD | | | 2019 | Visit | | [address] | | | | | | [place], [place] | | | | | | [address] | | | | | | [phone] | | | | | | | | +--------+ + + + + documented as of this encounter Results ESOPHAGEAL MANOMETRY (04/12/2019 2:51 PM PST) + + | Specimen | + + | | + + + +-- + | Narrative | P erformed At | + +-- + | MRN: | [facility] | | [id number] Date: 04/12/2019Patient Name: Maria De Jesus AnnaOrder #: | E NDOSCOPY | | [id number] of : [id number]: [id number] Type: | | | AmbulatoryRoom: 11Procedure: High [...]
--- OUTSIDE RECORDS SUMMARY | ~2019-11-06 | XMS | Encounter Summary ---
Demographics + + + | Address | [address] | | | [place] [address] | + + + | Home Phone [...] Team Providers + +------+ + | Care Editorial Writer Name | Role | Phone | [...] Refill Request | | 2020 | | Eclectic at [facility] [address] | MD [address] | (simethicone ) | | | | [address] | [place], [place] | | | | | for Health and | [address] | | | | | [facility] 2 | | | | | | [place], [place] | | | | | | [address] | | | | | | | [...] | | 2019 | Visit | | [address] | | | | | | [place], [place] | | | | | | [address] | | | | | | [phone] | | | | | | | | +--------+ + + + + | 11/17/ | Video/TeleH | Pain Management | Florencio Lockett, | | | 2019 | ealth-Sched | | PhD [address] | | | | uled | | [place], [place] | | | | | | [address] | | | | | | [phone] | | | | | | | | +--------+ + + + + | 12/01/ | Video/TeleH | Pain Management | Florencio Lockett, | | | 2019 | ealth-Sched | | PhD [address] | | | | uled | | [place], [place] | | | | | | [address] | | | | | | [phone] | | | | | | | | +--------+ + + + + | 01/06/ | Office | Plastic Surgery | Kuldip Harrell MD | | | 2019 | Visit | | [address] | | | | | | [place], [place] | | | | | | [address] | | | | | | [phone] | | | | | | | | +--------+ + + + + documented as of this encounter Visit Diagnoses + + | Diagnosis | + + | Morbid obesity (HCC) Morbid obesity | + + documented in this encounter"
--- OUTSIDE RECORDS SUMMARY | ~2019-11-06 | XMS | Encounter Summary ---
Demographics + + + | Address | [address] | | | [place] [address] | + + + | Home Phone [...] Team Providers + +------+ + | Care Motors Assembler Name | Role | Phone | + [...] [address] | | | | | | [place], [place] | | | | | | [address] | | | | | | [phone] | | | | | | | | +--------+ + + + + | 11/17/ | Video/TeleH | Pain Management | Florencio Lockett, | | | 2019 | ealth-Sched | | PhD [address] | | | | uled | | [place], [place] | | | | | | [address] | | | | | | [phone] | | | | | | | | +--------+ + + + + | 12/01/ | Video/TeleH | Pain Management | Florencio Lockett, | | | 2019 | ealth-Sched | | PhD [address] | | | | uled | | [place], [place] | | | | | | [address] | | | | | | [phone] | | | | | | | | +--------+ + + + + | 01/06/ | Office | Plastic Surgery | Kuldip Harrell MD | | 2019 | Visit | | [address] | | | | | | [place], [place] | | | | | | [address] | | | | | | [phone] | | | | | | | | +--------+ + + + + documented as of this encounter Visit Diagnoses Not on filedocumented in this encounter"
--- OUTSIDE RECORDS SUMMARY | ~2019-11-06 | XMS | Encounter Summary ---
Demographics + + + | Address | [address] | | | [place] [address] | + + + | Home Phone [...] Team Providers + +------+ + | Care Shake Backboard Notcher Name | Role | Phone | + [...] | | [address] | [facility] [place] | | | | | for Health and | [address] | | | | | Healing, [address] | | | | | | [place], [place] | | | | | | [address] | | | | | | | [...] | | 2019 | Visit | | [address] | | | | | | [place], [place] | | | | | | [address] | | | | | | [phone] | | | | | | | | +--------+ + + + + | 11/17/ | Video/TeleH | Pain Management | Florencio Lockett, | | | 2019 | ealth-Sched | | PhD [address] | | | | uled | | [place], [place] | | | | | | [address] | | | | | | [phone] | | | | | | | | +--------+ + + + + | 12/01/ | Video/TeleH | Pain Management | Florencio Lockett, | | | 2019 | ealth-Sched | | PhD [address] | | | | uled | | [place], [place] | | | | | | [address] | | | | | | [phone] | | | | | | | | +--------+ + + + + | 01/06/ | Office | Plastic Surgery | Kuldip Harrell MD | | | 2019 | Visit | | [address] | | | | | | [place], [place] | | | | | | [address] | | | | | | [phone] | | | | | | | | +--------+ + + + + documented as of this encounter Visit Diagnoses Not on filedocumented in this encounter"
--- OUTSIDE RECORDS SUMMARY | ~2019-11-06 | XMS | Encounter Summary ---
Demographics + + + | Address | [address] | | | [place] [address] | + + + | Home Phone [...] Team Providers + +------+ + | Care Distribution Center Administrator Name | Role | Phone | [...] | [address] | [facility] [place] | | | | | for Health and | [address] | | | | | Healing, [address] | [phone] | | | | | [place], [place] | | | | | | [address] | | | | | | | [...] [address] | | | | | | [place], [place] | | | | | | [address] | | | | | | [phone] | | | | | | | | +--------+ + + + + | 11/17/ | Video/TeleH | Pain Management | Florencio Lockett, | | | 2019 | ealth-Sched | | PhD [address] | | | | uled | | [place], [place] | | | | | | [address] | | | | | | [phone] | | | | | | | | +--------+ + + + + | 12/01/ | Video/TeleH | Pain Management | Florencio Lockett, | | | 2019 | ealth-Sched | | PhD [address] | | | | uled | | [place], [place] | | | | | | [address] | | | | | | [phone] | | | | | | | | +--------+ + + + + | 01/06/ | Office | Plastic Surgery | Kuldip Harrell MD | | | 2019 | Visit | | [address] | | | | | | [place], [place] | | | | | | [address] | | | | | | [phone] | | | | | | | | +--------+ + + + + documented as of this encounter Visit Diagnoses Not on filedocumented in this encounter"
--- OUTSIDE RECORDS SUMMARY | ~2019-11-06 | XMS | Encounter Summary ---
Demographics + + + | Address | [address] | | | [place] [address] | + + + | Home Phone | | + + + | Preferred Language | Unknown | + + + | Marital Status | | + + + | Amish Affiliation | Unknown | + + + | Race | Unknown | + + + | Ethnic Group | Unknown | + + + Author + + + | Author | [facility] | | | and [place] | + + + | Organization | [facility] | | | [...] [place], | | | | | [place] [address] | | + + + + + Care Team Providers + +------+ + | Care Chaplain Resident Name | Role | Phone | + +------+ + | Alisha Stovall | PCP | | | PA-C | | | + +------+ + Reason for Visit + + + | Reason | Comments | + + + | New Patient | new patient | + + + Evaluate & Treat (Routine) + +--------+ + + + + | Status | Reason | Specialty | Diagnoses / | Referred By | Referred To | | | | | Procedures | Contact | Contact | + +--------+ + + + + | Authorized | | Cardiology | Diagnoses | Wilman, | Cassius, | | | | | Cardiac | Alisha | DO Katheryn | | | | | arrhythmia, | [place], | [address] | | | | | unspecified | [address] | [address] | | | | | Procedures | [address] | [place], [place] | | | | | Consult | Ave | [address] Phone: | | | | | | [place], | [phone] | | | | | | [place] | Fax: | | | | | | [address] | [phone] | | | | | | Phone: | | | | | | | [phone] | | | | | | | Fax: | | | | | | | [phone] | | + +--------+ + + + + Encounter Details +--------+---------+ + + + | Date | Type | Department | Care Team | Description | +--------+---------+ + + + | 06/20/ | Office | [facility] | Katheryn Hammonds DO | Cardiac arrhythmia, | | 2019 | Visit | CARDIOLOGY [place] | [address] | unspecified cardiac | | | | [address] | [place], [place] | arrhythmia type | | | | [address] | [address] | (Primary Dx); | | | | [place] | | Hypotension, | | | | [address] | | unspecified | | | | [phone] | | hypotension type | +--------+---------+ + + + Social [...] + + + | Blood Pressure | 86/58 | 06/20/2019 10:07 AM | | | | | PST | | + + + + + | Pulse | 68 | 06/20/2019 10:07 AM | | | | | PST | | + + + + + | Temperature | - | - | | + + + + + | Respiratory Rate | - | - | | + + + + + | Oxygen Saturation | 100% | 06/20/2019 10:07 AM | | | | | PST | | + + + + + | Inhaled Oxygen | - | - | | | Concentration | | | | + + + + + | Weight | 104.3 kg (230 lb) | 06/20/2019 10:07 AM | | | | | PST | | + + + + + | Height | 180.3 cm (5' 11") | 06/20/2019 10:07 AM | | | | | PST | | + + + + + | Body Mass Index | 32.08 | 06/20/2019 10:07 AM | | | | | PST | | + + + + + documented in this encounter Progress Katheryn Villalpando DO - 06/20/2019 10:00 AM PST [facility] Cardiology Cardiology Consult Note Reason for Consultation: arrhythmia Requesting Physician: Alisha Stovall* History Obtained From: patient HISTORY OF PRESENT [...] rafael ing well. She is followed at [facility]. She was getting IV infusions multiple times [...] is generally very fatigued throughout the day. Review of Systems Constitutional: Positive for fatigue. [...] Home Medications Outpatient Encounter Medications as of 06/20/2019 Medication Sig Dispense Refill acetaminophen (TYLENOL) 500 mg tablet Take 500 mg by mouth every 6 hours as needed for Pain. albuterol 90 mcg/puff inhaler Inhale 2 puffs into the lungs every 6 hours as needed for Wheezing. beclomethasone (QVAR) 40 mcg/puff inhaler Inhale 2 puffs into the lungs 2 times daily. [DISCONTINUED] Beclomethasone Dipropionate (QVAR IN) Inhale into the lungs. calcium-vitamin D (OSCAL) 500 mg-200 units per tablet Take 1 tablet by mouth Daily. [DISCONTINUED] cloNIDine (CATAPRES) 0.1 mg tablet Take 0.1 mg by mouth 2 times daily. cyanocobalamin (VITAMIN B-12) 500 mcg tablet Take 500 mcg by mouth Daily. cyclobenzaprine (FLEXERIL) 5 MG tablet Take 5 mg by mouth 3 times daily as needed for M uscle spasms. diazePAM (VALIUM) 5 mg tablet Take 5 mg by mouth every 6 hours as needed for Anxiety. [DISCONTINUED] ferrous sulfate 325 mg tablet Take 325 mg by mouth. FLUoxetine (PROZAC) 40 MG capsule Take 40 mg by mouth Daily. gabapentin (NEURONTIN) 250 mg/5 mL solution Take by mouth 3 times daily. HYDROmorphone in saline (DILAUDID) 1 mg/mL injection Inject into the vein continuous. hydrOXYzine hydrochloride (ATARAX) 25 mg tablet Take 25 mg by mouth every 6 hours as ne eded for Itching. [DISCONTINUED] hydrOXYzine pamoate (VISTARIL) 25 mg capsule Take 25 mg by mouth. LAMOTRIGINE PO Take by mouth. lidocaine (LIDODERM) 5% patch Place 1 patch onto the skin Daily. Apply for 12 hours, th en remove for 12 hours. magnesium hydroxide (MILK OF MAGNESIA) 400 mg/5 mL suspension Take by mouth Daily as n eeded for Constipation. mirtazapine (REMERON) 15 MG tablet Take 15 mg by mouth nightly. Multiple Vitamins-Minerals (MULTIVITAMIN ADULT PO) Take by mouth. naloxone (NARCAN) 0.4 mg/mL oral liquid Take 8 mg by mouth 4 times daily. [DISCONTINUED] Norgestim-Eth Estrad Triphasic (TRI-PREVIFEM PO) Take by mouth. ondansetron (ZOFRAN ODT) 4 mg disintegrating tablet Take 4 mg by mouth every 8 hours as needed for Nausea. [DISCONTINUED] ondansetron (ZOFRAN ODT) 4 mg disintegrating tablet Take 4 mg by mouth a s needed. pantoprazole (PROTONIX) 20 mg tablet Take 20 mg by mouth every morning (before breakfas t). [DISCONTINUED] pantoprazole (PROTONIX) 40 mg tablet Take 40 mg by mouth every morning ( before breakfast). prochlorperazine 5 mg tablet Take 5 mg by mouth every 6 hours as needed for Nausea. promethazine (PHENERGAN) 25 mg tablet Take 25 [...] 50 mg by mouth 2 times daily. [DISCONTINUED] topiramate (TOPAMAX) 50 MG tablet Take 50 mg PO QAM and 100 mg PO QHS. 9 0 tablet 3 [DISCONTINUED] zolpidem (AMBIEN) 10 mg tablet Take 10 mg by mouth as needed. No facility-administered encounter medications on file as of 06/20/2019. Allergies Allergies Allergen Reactions Nicotiana Tabacum Shortness [...] file Gets together: Not on file Attends taoist service: Not on file Active member of [...] on file PHYSICAL EXAM Vital Signs: BP (!) 86/58 | Pulse 68 | Ht 1.803 m (5' 11") | Wt 104.3 kg (230 lb) | SpO 2 100% | BMI 32.08 kg/m Physical Exam GENERAL: Well developed, well [...] 6.7, hemoglobin 12.4, hematocrit 36.6, platelets 187. EK06/20/2019 sinus bradycardia 53 bpm, otherwise normal EKG Last Echo: 02/22/18 CONCLUSIONS 1. The left ventricle is normal in size, wall thickness and systolic function EF 55-60%. 2. The right ventricle is normal in size and function. 3. There is no pericardial effusion. Last stress test: Last cath: Carotid US: AAA screening: Lower extremity US: OTHERS: ASSESSMENT & PLAN 1. Hypotension 2. Sinus bradycardia 3. S/p gastric bypass complicated by poor healing/malnutrition necessitating gastrostomy tu be 4. History of pericarditis 5. Anxiety/depression 6. History of DM now resolved 7. History HTN now resolved 8. Migraines -The patient is a 28-year-old female who presents to the cardiology office for initial cons ultation due to dizziness and bradycardia. She reports that her heart rates will occasional ly dip down into the 40s and 50s. She denies any syncopal episodes but has had a lot of diz ziness. She is noted to be hypotensive on physical exam today and looks dehydrated. She is presently on tube feeds due to her history of gastric bypass which did not heal well and le d to malnutrition. I think part of her symptoms may be related to dehydration. She has als o presently on clonidine 0.1 mg by mouth twice daily which can make both her blood pressure and her heart rates worse. I advised her to stop the clonidine today. I encouraged oral hy dration but she may need to restart IV hydration which she was getting previously. Will obt ain a 1 month of monitor to rule out any significant bradycardic rhythms. - Obtain a one month event monitor - Stop clonidine - Follow up in 3 months Thank you for allowing me to participate in the care of this patient. Primary Care Physician: SHANICE Haque, DO 06/20/2019 documented in this enco unter Plan of Treatment +--------+---------+ + + + | Date | Type | Specialty | Care Team | Description | +--------+---------+ + + + | 11/18/ | Office | Neurology | Shirley Murdock NP | | 2019 | Visit | | [address] [place] [address] | | | | | | [place] | | | | | | [address] | | | | | | [phone] | | | | | | | | +--------+---------+ + + + | 11/25/ | Office | Cardiology | Katheryn Hammonds DO | | 2019 | Visit | | [address] | | | | | | [place] | | | | | | [address] | | | | | | | | +--------+---------+ + + + + +------+--------+ + + | Name | Type | Priori | Associated Diagnoses | Order Schedule | | | | ty | | | + +------+--------+ + + | Event monitor - 2 | ECG | Routin | Cardiac | Expected: | | week | | e | arrhythmia, | 06/27/2019, Expires: | | | | | unspecified cardiac | 06/20/2020 | | | | | arrhythmia type | | + +------+--------+ + + documented as of this encounter Procedures + +--------+ + + + | Procedure Name | Priori | Date/Time | Associated Diagnosis | Comments | | | ty | | | | + +--------+ + + + | ECG 12 LEAD | Routin | 06/20/2019 | Cardiac | Results for this | | | e | 10:16 AM | arrhythmia, | procedure are in the | | | | PST | unspecified cardiac | results section. | | | | | arrhythmia type | | + +--------+ + + + documented in this encounter Results ECG 12 lead (06/20/2019 10:16 AM PST) + + + + + + | Component | Value | Ref Range | Performed | Pathologist | | | | | At | Signature | + + + + + + | VENTRICULAR | 53 | BPM | [facility] | | | RATE EKG | | | | | + + + + + + | ATRIAL RATE | 53 | BPM | [facility] | | + + + + + + | P-R | 152 | ms | [facility] | | | INTERVAL | | | | | + + + + + + | QRS | 98 | ms | [facility] | | | DURATION | | | | | + + + + + + | Q-T | 460 | ms | [facility] | | | INTERVAL | | | | | + + + + + + | Q-T | 431 | ms | [facility] | | | INTERVAL | | | | | | (CORRECTED) | | | | | + + + + + + | P WAVE AXIS | 33 | degrees | [facility] | | + + + + + + | QRS AXIS | 18 | degrees | [facility] | | + + + + + + | T AXIS | 27 | degrees | [facility] | | + + + + + + | INTERPRETAT | Sinus | | [facility] | | | ION TEXT | bradycardiaOtherwise | | | | | | normal ECGNo previous | | | | | | ECGs availableConfirmed | | | | | | by KATHERYN HAMMONDS MD | | | | | | ([phone]) on 06/20/2019 | | | | | | 4:57:36 PM | | | | + + + + + + + + | Specimen | + + | | + + + + + | Narrative | Performed At | + + + | | | + + + + +---------+ + + | Performing | Address | City/State/Zipcode | Phone Number | | Organization | | | | + +---------+ + + | [facility] | | | | + +---------+ + + documented in this encounter Visit Diagnoses + + | Diagnosis | + + | Cardiac arrhythmia, unspecified cardiac arrhythmia type - Primary | + + | Hypotension, unspecified hypotension type | + + documented in this encounter
--- OUTSIDE RECORDS SUMMARY | ~2019-11-06 | XMS | Encounter Summary ---
Demographics + + + | Address | [address] | | | [place] [address] | + + + | Home Phone [...] Team Providers + +------+ + | Care Unified Communications Architect Name | Role | Phone | [...] Closed | | Surgery | Diagnoses | Sarita, | Sarita, | | | | | Morbid | Kenan Santos MD | Kenan Santos MD | | | | | obesity with | [address] | | | | | BMI of | [address] | Ave | | | | | 50.0-59.9, | [place] | [place] | | | | | adult (HCC) | [address] | [address] | | | | | Calculus of | Phone: | Phone: | | | | | gallbladder | | | | | | | with | Fax: | Fax: | | | | | chronic | [phone] | [phone] | | | | | cholecystiti | | | | | | | s without | | | | | | | obstruction | | | | | | | Procedures | | | | | | | REQUEST TO | | | | | | | SURGERY | | | | | | | [employer] RECOVERY WORKER | | | | | | | [place] | | | | | | | LAP,CHOLECYS | | | | | | | TECTOMY [place] | | | | | | | [...] | [facility] | | | with CYBER SOFTWARE ENGINEER | | | Surg Chh2 | [facility] [address] | | | | | | [address] | [address] | | | | | | Ave Center | | | | | | | for Health | Health and | | | | | | and Healing, | Healing, | | | | | | Building [address] | [address] | | | | | | [place], | [place], [place] | | | | | | [place] | [address] | | | | | | [address] | Phone: | | | | | | Phone: | | | | | | | | Fax: | | | | | | Fax: | [phone] | | | | | | [phone] | | +--------+ + + + + + Encounter Details +--------+---------+ + + + | Date | Type | Department | Care Team | Description | +--------+---------+ + + + | 08/10/ | Office | Digestive Health | Kenan Norton, | Morbid obesity with | | 2018 | Visit | Center at [facility] [address] | [address] | BMI of 50.0-59.9, | | | | [address] | [place], [place] | adult ([facility]) (Primary | | | | for Health and | [address] | Dx); Diabetes | | | | Healing, [address] | | mellitus treated | | | | [place], [place] | | with oral medication | | | | [address] | | ([facility]); | | | | | | Gastroesophageal [...] prescribed screening protocols as defined by the [facility] bariatric program including medic al, psychiatric and [...] Doxycycline Rash Percocet [Oxycodone-Acetaminophen] Nausea and Vomiting Early Branch Oil Hives and Nausea and Vomiting Seroquel [Quetiapine Fumarate] Suicidal Ideation Social History [facility] 02/19/2018 (see media): CHEST 2 VIEWS 02/06/2018: [...] a 4-5% rate of reoperation over the rn long term care (i.e. years), as well as other late [...] and may approach 5%. We reviewed the [facility] consent form. We discussed that we did [...] Forman MD General Surgery, R5 Pager # [phone] documented in this e ncounter Plan of Treatment +--------+ + + + + | Date | Type | Specialty | Care Team | Description | +--------+ + + + + | 11/13/ | Office | Gastroenterology | Cassidy Schneider, | | | 2019 | Visit | | [address] | | | | | | [place], [place] | | | | | | [address] | | | | | | [phone] | | | | | | | | +--------+ + + + + | 11/17/ | Video/TeleH | Pain Management | Florencio Lockett, | | | 2019 | ealth-Sched | | PhD [address] | | | | uled | | [place], [place] | | | | | | [address] | | | | | | [phone] | | | | | | | | +--------+ + + + + | 12/01/ | Video/TeleH | Pain Management | Florencio Lockett, | | | 2019 | ealth-Sched | | PhD [address] | | | | uled | | [place], [place] | | | | | | [address] | | | | | | [phone] | | | | | | | | +--------+ + + + + | 01/06/ | Office | Plastic Surgery | Kuldip Harrell MD | | | 2019 | Visit | | [address] | | | | | | [place], [place] | | | | | | [address] | | | | | | [phone] | | | | | | | | +--------+ + + + + documented as of this encounter Visit Diagnoses + + | Diagnosis | + + | Morbid obesity with BMI of 50.0-59.9, adult (HCC) - Primary | + + | Diabetes mellitus treated with oral medication (HCC) | + + | Gastroesophageal reflux disease, [...]
--- OUTSIDE RECORDS SUMMARY | ~2019-11-06 | XMS | Encounter Summary ---
Demographics + + + | Address | [address] | | | [place] [address] | + + + | Home Phone [...] Team Providers + +------+ + | Care Miller Kiln Dried Salt Name | Role | Phone | + +------+ + | Alisha Stovall PA-C | PCP | | + +------+ + Encounter Details +--------+ + + + + | Date | Type | Department | Care Team | Description | +--------+ + + + + | 02/20/ | MyChart | Digestive Health | | Bariatric online | | 2018 | Encounter | Center at [facility] [address] | | support group | | | | [address] | | | | | | for Health and | | | | | | Healing, [address] | | | | | | [place], [place] | | | | | | [address] | | | | | | [phone] | | | +--------+ + + + [...] Ave | | | | | | [place], [place] | | | | | | [address] | | | | | | [phone] | | | | | | | | +--------+ + + + + | 11/17/ | Video/TeleH | Pain Management | Florencio Lockett, | | | 2019 | ealth-Sched | | PhD [address] | | | | uled | | [place], [place] | | | | | | [address] | | | | | | [phone] | | | | | | | | +--------+ + + + + | 12/01/ | Video/TeleH | Pain Management | Florencio Lockett, | | | 2019 | ealth-Sched | | PhD [address] | | | | uled | | [place], [place] | | | | | | [address] | | | | | | [phone] | | | | | | | | +--------+ + + + + | 01/06/ | Office | Plastic Surgery | Kuldip Harrell MD | | | 2020 | Visit | | [address] | | | | | | [place], [place] | | | | | | [address] | | | | | | [phone] | | | | | | | | +--------+ + + + + documented as of this encounter Visit Diagnoses Not on filedocumented in this encounter"
--- OUTSIDE RECORDS SUMMARY | ~2019-11-06 | XMS | Encounter Summary ---
Demographics + + + | Address | [address] | | | [place] [address] | + + + | Home Phone [...] Team Providers + +------+ + | Care Creamery Worker Name | Role | Phone | + +------+ + | Alisha Stovall PA-C | PCP | | + +------+ + Encounter Details +--------+ + + + + | Date | Type | Department | Care Team | Description | +--------+ + + + + | 04/25/ | Machine Design Engineer | Digestive Health | Kenan Norton, | S/P gastric bypass | | 2020 | | Center at [facility] [address] | MD [address] | (Primary Dx); | | | | [address] | [facility] [place] | Inadequate oral | | | | for Health and | [address] | intake | | | | Healing, [address] | [phone] | | | | | [place], [place] | | | | | | [address] | | | | | | | [address] | | | | | | [place], [place] | | | | | | [address] | | | | | | [phone] | | | | | | | | +--------+ + + + + | 11/17/ | Video/TeleH | Pain Management | Florencio Lockett, | | | 2019 | ealth-Sched | | PhD [address] | | | | uled | | [place], [place] | | | | | | [address] | | | | | | [phone] | | | | | | | | +--------+ + + + + | 12/01/ | Video/TeleH | Pain Management | Florencio Lockett, | | | 2019 | ealth-Sched | | PhD [address] | | | | uled | | [place], [place] | | | | | | [address] | | | | | | [phone] | | | | | | | | +--------+ + + + + | 01/06/ | Office | Plastic Surgery | Kuldip Harrell MD | | | 2019 | Visit | | [address] | | | | | | [place], [place] | | | | | | [address] | | | | | | [phone] | | | | | | | [...]
--- OUTSIDE RECORDS SUMMARY | ~2019-11-06 | XMS | Encounter Summary ---
Demographics + + + | Address | [address] | | | [place] [address] | + + + | Home Phone [...] Team Providers + +------+ + | Care Sulphate Tester Name | Role | Phone | [...] | | | | | [place], | | | | | | [place] [address] | | | +--------+--------+ + + + [...] [address] | | | | | | [place], [place] | | | | | | [address] | | | | | | [phone] | | | | | | | | +--------+ + + + + | 11/17/ | Video/TeleH | Pain Management | Florencio Lockett, | | | 2019 | ealth-Sched | | PhD [address] | | | | uled | | [place], [place] | | | | | | [address] | | | | | | [phone] | | | | | | | | +--------+ + + + + | 12/01/ | Video/TeleH | Pain Management | Florencio Lockett, | | | 2019 | ealth-Sched | | PhD [address] | | | | uled | | [place], [place] | | | | | | [address] | | | | | | [phone] | | | | | | | | +--------+ + + + + | 01/06/ | Office | Plastic Surgery | Kuldip Harrell MD | | | 2020 | Visit | | [address] | | | | | | [place], [place] | | | | | | [address] | | | | | | [phone] | | | | | | | | +--------+ + + + + documented as of this encounter Visit Diagnoses Not on filedocumented in this encounter"
--- OUTSIDE RECORDS SUMMARY | ~2019-11-06 | XMS | Encounter Summary ---
Demographics + + + | Address | [address] | | | [place] [address] | + + + | Home Phone [...] Providers + +------+ + | Care Exercise Instruct Name | Role | Phone | + +------+ + | Alisah Stovall PA-C | PCP | | + [...] | | | Surg Chh2 | Chh2 [address] | | | | | | [address] | [address] | | | | | | Ave Center | [facility] [facility] | | | | | | for Health | Health and | | | | | | and Healing, | Healing, | | | | | | Building 2 | Building 2 | | | | | | [place], | [place], [place] | | | | | | [place] | [address] | | | | | | [address] | Phone: | | | | | | Phone: | [phone] | | | | | | [phone] | Fax: | | | | | | Fax: | [phone] | | | | | | [phone] | | +--------+--------+ + + + + Encounter Details +--------+---------+ + + + | Date | Type | Department | Care Team | Description | +--------+---------+ + + + | 10/02/ | Office | Digestive Health | Indu Pisano, | S/P gastric bypass | | 2019 | Visit | Center at [facility] [address] [facility] | (Primary Dx); | | | | [address] | [address] | Diabetes mellitus | | | | for Health and | [place], [place] | treated with oral | | | | [facility] 2 | [address] | medication (HCC) | | | | [place], [place] | | | | | | [address] | | | | | | [phone] | | | +--------+---------+ + + + [...] | 165.1 kg (364 lb) | 10/02/2018 1:33 PM | | | | | PDT | | + + + + + | Height | 180.3 cm (5' 11") | 10/02/2018 1:33 PM | | | | | PDT | | + + + + + | Body Mass Index | 50.77 | 10/02/2018 1:33 PM | | | | | PDT [...] documented as of this encounter Progress Notes Indu Pisano, JEFF - 10/02/2018 1:30 PM PDTFormatting of this note might be different f rom the original. Nutrition Counseling: Post-op Bariatric Surgery Follow-Up Patient referred by: Kenan Norton MD Documented time of visit: 1:31 to 2:05 (34 minutes rcwe-me-knbp with patient) Surgery: Gastric Bypass and Cholecystectomy Date of Surgery: 09/24/18 Subjective: Any reported changes: nausea d/t oxycodone, first BM was 3 days ago. Tried scrambled egg la st night, c/o chest pain, vomiting, and severe pain. Tolerating Bariatric Diet: Yes with the exception of eggs Current Physical Activity: not addressed Changes in Diabetes Medications since surgery: Not addressed Objective: Ht Readings from Last 1 Encounters: 09/24/18 1.803 m (5' 11") Wt Readings from Last 2 Encounters: 10/02/18 165.1 kg (364 lb) 09/24/18 168.1 kg (370 lb 9.5 oz) Body mass index is 50.77 kg/m. Weight change since surgery: 6 lb PMHx: Past Medical History: Diagnosis Date Asthma Fatty liver per CT scan GERD (gastroesophageal reflux disease) HTN (hypertension) 2017 LVH (left ventricular hypertrophy) The left ventricle is normal in size, wall thickness and systolic function EF 55-60%. ECHO Shortness of breath Sleep apnea Type 2 diabetes mellitus (HCC) Food logs: Yes Food choices: Pudding, SF popsicles, Pure Protein powder mixed with 1% milk 2x/day Fluid choices: crystal light ~16 ounces, and low sodium broth ~8 ounces Supplementation: None yet, has yet to purchase Assessment: Following Bariatric Diet Protocol: Yes Meeting protein goals: Yes Meeting fluid goals: No, ~35-40 fluid ounces daily Fluids from meals: Yes Plan: Reviewed nutrition goals after bariatric surgery. Aim for 64 ounces of fluid and 60-80 grams of protein per day. Continue to follow post-surgery bariatric diet progression: Continue stage 2 full liquid di et for now. On 10/08/18, begin stage 3 according to bariatric diet guidelines: -Provided written & verbal education/review on stage 3 guidelines, including grocery list of stage 3 foods and sample menus. -Begin introducing soft/ground/moist protein foods -Once meeting protein [...] fluids from meals and 30 minutes after Begin vitamin & mineral supplementation per post-bariatric surgery guidelines -complete multivitamin & mineral (with iron) supplement, 2/day -5070-4807 mg calcium citrate with vitamin D/day (take in divided doses, not within 2 hour s of multivitamin or iron supplement) (if not chewable or liquid, begin 2 weeks post-surgery ) -At 1 month post-op start 500 mcg/day sublingual B12 supplement (or monthly injections) Continued to reinforce importance of mindful eating. Continue to increase physical activity. Follow up in [address], LD Clinical Dietitian - [facility] Bariatrics [facility] and [employer] [place] Email: [email or web address] Pager: [phone] docume nted in this encounter Plan of Treatment +--------+ + + + + | Date | Type | Specialty | Care Team | Description | +--------+ + + + + | 11/13/ | Office | Gastroenterology | Cassidy Schneider, | | | 2019 | Visit | | [address] | | | | | | [place], [place] | | | | | | [address] | | | | | | [phone] | | | | | | | | +--------+ + + + + | 11/17/ | Video/TeleH | Pain Management | Florencio Lockett, | | | 2019 | ealth-Sched | | PhD [address] | | | | uled | | [place], [place] | | | | | | [address] | | | | | | [phone] | | | | | | | | +--------+ + + + + | 12/01/ | Video/TeleH | Pain Management | Florencio Lockett, | | | 2019 | ealth-Sched | | PhD [address] | | | | uled | | [place], [place] | | | | | | [address] | | | | | | [phone] | | | | | | | | +--------+ + + + + | 01/06/ | Office | Plastic Surgery | Kuldip Harrell MD | | | 2020 | Visit | | [address] | | | | | | [place], [place] | | | | | | [address] | | | | | | [phone] | | | | | | | | +--------+ + + + + documented as of this encounter Procedures + +--------+ + + + | Procedure Name | Priori | Date/Time | Associated Diagnosis | Comments | | | ty | | | | + +--------+ + + + | WA MNT RE-ASSESSMNT | Routin | 10/02/2018 | S/P gastric bypass | | | X15MIN | e | 3:46 PM | Diabetes mellitus | | | | | PDT | treated with oral | | | | | | medication ([facility]) | | + +--------+ + + + documented in this encounter Visit Diagnoses + + | Diagnosis | + + | S/P gastric bypass - Primary Bariatric surgery status | + + | Diabetes mellitus treated with oral medication ([facility]) | + + documented in this encounter
--- OUTSIDE RECORDS SUMMARY | ~2019-11-06 | XMS | Encounter Summary ---
Demographics + + + | Address | [address] | | | [place] [address] | + + + | Home Phone [...] Providers + +------+ + | Care Job Analysis Manager Name | Role | Phone | [...] | | [address] | [facility] [place] | | | | | for Health and | [address] | | | | | Healing, [address] | [phone] | | | | | [place], [place] | | | | | | [address] | | | | | | | [address] | | | | | | [place], [place] | | | | | | [address] | | | | | | [phone] | | | | | | | | +--------+ + + + + | 11/17/ | Video/TeleH | Pain Management | Florencio Lockett, | | | 2019 | ealth-Sched | | PhD [address] | | | | uled | | [place], [place] | | | | | | [address] | | | | | | [phone] | | | | | | | | +--------+ + + + + | 12/01/ | Video/TeleH | Pain Management | Florencio Lockett, | | | 2019 | ealth-Sched | | PhD [address] | | | | uled | | [place], [place] | | | | | | [address] | | | | | | [phone] | | | | | | | | +--------+ + + + + | 01/06/ | Office | Plastic Surgery | Kuldip Harrell MD | | | 2019 | Visit | | [address] | | | | | | [place], [place] | | | | | | [address] | | | | | | [phone] | | | | | | | [...]
--- OUTSIDE RECORDS SUMMARY | ~2019-11-06 | XMS | Encounter Summary ---
Demographics + + + | Address | [address] | | | [place] [address] | + + + | Home Phone [...] Team Providers + +------+ + | Care Sas Programmer Name | Role | Phone | + +------+ + | Alisha Stovall PA-C | PCP | | + +------+ + Reason for Referral PROC - Dept/Practice Procedure (Urgent) +--------+--------+ + + + + | Status | Reason | Specialty | Diagnoses / | Referred By | Referred To | | | | | Procedures | Contact | Contact | +--------+--------+ + + + + | Closed | | Gastroenterol | Diagnoses | Cierra, | Gas Endo | | | | ogy | History of | Kenan Santos MD | Ch[address]2 [address] | | | | | Nadya-en-Y | [address] | | | | | gastric | [address] | Center for | | | | | bypass | [place], [place] | [facility] and | | | | | Dehydration | [address] | Healing, | | | | | Inadequate | Phone: | Building [address] | | | | | oral intake | [phone] | [place], [place] | | | | | Procedures | Fax: | [address] | | | | | CONSULT TO | [phone] | Phone: | | | | | GI PROCEDURE | | [phone] | | | | | UNIT: EGD | | Fax: | | | | | ND UPPER GI | | [phone] | | | | | ENDOSCOPY,BI | | | | | | | OPSY | | | +--------+--------+ + + + + Reason for Visit + + + | Reason | Comments | + + + | Follow-up encounter | | + + + Encounter Details +--------+ + + + + | Date | Type | Department | Care Team | Description | +--------+ + + + + | 10/26/ | Telephone | Digestive Health | Kenan Norton, | Follow-up encounter | | 2019 | | Center at [address] [address] | MD [address] | | | | | [address] | [place], [place] | | | | | [facility] Health and | [address] | | | | | Healing, [facility] 2 | | | | | | [place], [place] | | | | | | [address] | | | | | | | [...] [address] | | | | | | [facility] [place] | | | | | | [address] | | | | | | [phone] | | | | | | | | +--------+ + + + + | 11/17/ | Video/TeleH | Pain Management | Florencio Lockett, | | | 2019 | ealth-Sched | | PhD [address] | | | | uled | | [place], [place] | | | | | | [address] | | | | | | [phone] | | | | | | | | +--------+ + + + + | 12/01/ | Video/TeleH | Pain Management | Florencio Lockett, | | | 2019 | ealth-Sched | | PhD [address] | | | | uled | | [place], [place] | | | | | | [address] | | | | | | [phone] | | | | | | | | +--------+ + + + + | 01/06/ | Office | Plastic Surgery | Kuldip Harrell MD | | | 2019 | Visit | | [address] | | | | | | [place], [place] | | | | | | [address] | | | | | | [phone] | | | | | | | | +--------+ + + + + documented as of this encounter Visit Diagnoses + + | Diagnosis | + + | History of Nadya-en-Y gastric bypass - Primary Bariatric surgery status | + + | Dehydration | + + | Inadequate oral intake Other symptoms concerning nutrition, metabolism, and | | development | + + documented in this encounter"
--- OUTSIDE RECORDS SUMMARY | ~2019-11-06 | XMS | Encounter Summary ---
Demographics + + + | Address | [address] | | | [place] [address] | + + + | Home Phone [...] Team Providers + +------+ + | Care Hospice Chaplain Name | Role | Phone | + [...] | | | | cardiovascul | [address] | | | | | | ar exam | [address] | | | | | | Chest pain, | [place], [place] | | | | | | unspecified | [address] | | | | | | type Pedal | Phone: | | | | | | edema | [phone] | | | | | | Procedures | Fax: | | | | | | TRANSTHORACI | [phone] | | | | | | C [...] [address] | | | | | ([facility]) | [address] | [address] | | | | | Abnormal ECG | Rd | [facility] [place] | | | | | | [facility] [place] | [address] | | | | | Hypertension | [address] | Phone: | | | | | , | Phone: | [phone] | | | | | unspecified | [phone] | Fax: | | | | | type | Fax: | [phone] | | | | | Procedures | [phone] | | | | | | CONSULT [...] | 2018 | Visit | Preventive at [facility] | SHANICE Villafuerte [address] | exam (Primary Dx); | | | | [address] | [address] [place], | Chest pain, | | | | Center for [facility] | [place] [address] | unspecified type; | | | | and Healing, | [phone] | Pedal edema | | | | [address] | | | | | | [place], [place] | | | | | | [address] | | | | | | [phone] | | | +--------+---------+ + + + [...] recent CV Tests: Lexiscan Myocardial Perfusion Study ([facility]) 02/19/2018 (see media): Echocardiogram ([facility]) 02/22/2018: CHEST 2 VIEWS 02/06/2018: HISTORY: Preoperative [...] Reports anxiety - no medications but sees Feidee thertiffanie aliceat. . Heme/Lymphatic: Denies bleeding disorder, [...] calculator (one point for each "yes" answer) [email or web address]/ A. Elevated risk surgery?: yes B. Ischemic [...] CARDIOLOGY - PREVENTIVE [address] Mailcode: [id number] [place] [address] documented in t his encounter Plan of Treatment +--------+ + + + + | Date | Type | Specialty | Care Team | Description | +--------+ + + + + | 11/13/ | Office | Gastroenterology | Cassidy Schneider, | | | 2019 | Visit | | [address] | | | | | | [place], [place] | | | | | | [address] | | | | | | [phone] | | | | | | | | +--------+ + + + + | 11/17/ | Video/TeleH | Pain Management | Florencio Lockett, | | | 2019 | ealth-Sched | | PhD [address] | | | | uled | | [place], [place] | | | | | | [address] | | | | | | [phone] | | | | | | | | +--------+ + + + + | 12/01/ | Video/TeleH | Pain Management | Florencio Lockett, | | | 2019 | ealth-Sched | | PhD [address] | | | | uled | | [place], [place] | | | | | | [address] | | | | | | [phone] | | | | | | | | +--------+ + + + + | 01/06/ | Office | Plastic Surgery | Kuldip Harrell MD | | 2019 | Visit | | [address] | | | | | | [place], [place] | | | | | | [address] | | | | | | [phone] | | | | | | | [...]
--- OUTSIDE RECORDS SUMMARY | ~2019-11-06 | XMS | Encounter Summary ---
Demographics + + + | Address | [address] | | | [place] [address] | + + + | Home Phone [...] Team Providers + +------+ + | Care Tool Planer Set Up Operator Name | Role | Phone [...] | | 2019 | | Center at [facility] [address] | MD [address] | (01/10/2019) | | | | [address] | [place], [place] | | | | | for Health and | [address] | | | | | [facility] 2 | [phone] | | | | | [place], [place] | | | | | | [address] | | | | | | [phone] | | | +--------+ + + + [...] [address] | | | | | | [place], [place] | | | | | | [address] | | | | | | [phone] | | | | | | | | +--------+ + + + + | 11/17/ | Video/TeleH | Pain Management | Florencio Lockett, | | | 2019 | ealth-Sched | | PhD [address] | | | | uled | | [place], [place] | | | | | | [address] | | | | | | [phone] | | | | | | | | +--------+ + + + + | 12/01/ | Video/TeleH | Pain Management | Florencio Lockett, | | | 2019 | ealth-Sched | | PhD [address] | | | | uled | | [place], [place] | | | | | | [address] | | | | | | [phone] | | | | | | | | +--------+ + + + + | 01/06/ | Office | Plastic Surgery | Kuldip Harrell MD | | | 2019 | Visit | | [address] | | | | | | [place], [place] | | | | | | [address] | | | | | | [phone] | | | | | | | | +--------+ + + + + documented as of this encounter Visit Diagnoses Not on filedocumented in this encounter"
--- OUTSIDE RECORDS SUMMARY | ~2019-11-06 | XMS | Encounter Summary ---
Demographics + + + | Address | [address] | | | [place] [address] | + + + | Home Phone [...] Providers + +------+ + | Care Traffic Officer Name | Role | Phone | + +------+ + | Alisha Stovall PA-C | PCP | | + +------+ + Encounter Details +--------+ + + + + | Date | Type | Department | Care Team | Description | +--------+ + + + + | 11/16/ | MyChart | Cardiology General | | Referral to | | 2017 | Encounter | at [facility] [address] | | Cardiology | | | | [facility] for | | | | | | Health and Healing, | | | | | | [facility] | | | | | | [place], [place] | | | | | | [address] | | | | | | [phone] | | | +--------+ + + + [...] Ave | | | | | | [place], [place] | | | | | | [address] | | | | | | [phone] | | | | | | | | +--------+ + + + + | 11/17/ | Video/TeleH | Pain Management | Florencio Lockett, | | | 2019 | ealth-Sched | | PhD [address] | | | | uled | | [place], [place] | | | | | | [address] | | | | | | [phone] | | | | | | | | +--------+ + + + + | 12/01/ | Video/TeleH | Pain Management | Florencio Lockett, | | | 2019 | ealth-Sched | | PhD [address] | | | | uled | | [place], [place] | | | | | | [address] | | | | | | [phone] | | | | | | | | +--------+ + + + + | 01/06/ | Office | Plastic Surgery | Kuldip Harrell MD | | | 2020 | Visit | | [address] | | | | | | [place], [place] | | | | | | [address] | | | | | | [phone] | | | | | | | | +--------+ + + + + documented as of this encounter Visit Diagnoses Not on filedocumented in this encounter"
--- OUTSIDE RECORDS SUMMARY | ~2019-11-06 | XMS | Clinical Summary ---
Demographics + + + | Address | [address] | | | [place] [address] | + + + | Home Phone [...] Team Providers + +------+ + | Care Toeing Stockings Name | Role | Phone | + +------+ + | Alisha Stovall PA-C | PCP | | + +------+ + Source Comments PEE is fully live on both [facility] and [facility] InPatient.[facility] Allergies + + + + + + [...] + + + + + + | [place] [employer] | Hives, Nausea and | | [...] | | | | | | | ([id number] | | | | | | | [...] | RMD: Dr. Allen Osullivan - phone: [phone], fax: [phone] | + + + + + | [...] | 10/31/ | Video/TeleH | Surgery | Kenan Norton, | | | 2019 | bubba-Sched | [...] | | 2019 | bubba-Sched | | PhD | | | | ray | | [...] Request | | 2020 | | | | | +--------+ + + + + | 09/29/ | Telephone | Gastroenterology | Cassidy Schneider, | Prior Authorization | | 2020 | | | MD | Request - Medication | | | | | | (motegrity) | +--------+ + + + + | 09/25/ | Video/TeleH | Gastroenterology | Cassidy Schneider, | | | 2019 | ealth-Sched | | MD | | | | uled | | | | +--------+ + + + + | 09/16/ | Refill | Surgery | Keann Norton, | Refill Request | 2019 | | | MD | (prochlorperazine) | +--------+ + + + + | 09/11/ | Abstract | Surgery | Kenan Norton, | | | 2019 | | | MD | | +--------+ + + + + | 09/11/ | Refill | Surgery | Kenan Norton, | Refill Request | | 2020 | | | MD | (simethicone ) | +--------+ + + + + | 09/04/ | Refill | Surgery | Kenan Norton, | Refill Request | | 2020 | | | MD | (prochlorperazine ) | +--------+ + + + + | 08/29/ | Video/TeleH | Surgery | Kenan Norton, | Follow-up visit | | 2020 | ealth-Sched | | MD | | | | uled | | | | +--------+ + + + + | 08/29/ | MyChart | Surgery | Kenan Norton, | RE: < No Subject> | | 2020 | Encounter | | MD | | +--------+ + + + + | 08/26/ | MyChart | Surgery | Clinic, Surgery | Upcoming Virtual | | 2020 | Encounter | | | Visit. | +--------+ + + + + | 08/26/ | MyChart | Surgery | Kenan Norton, | RE: appointment 08/29 | | 2019 | Encounter | | MD | | +--------+ + + + + | 08/26/ | Refill | Surgery | Kenan Norton, | Refill Request | | 2019 | | | MD | (scopolamine) | +--------+ + + + + | 08/11/ | Telephone | Surgery | Kenan Norton, | | | 2020 | | | MD | | +--------+ + + + + | 08/08/ | MyChart | Surgery | | labs | | 2020 | Encounter | | | | +--------+ + + + + | 08/06/ | Abstract | Surgery | Kenan Norton, | | | 2019 | | | MD | | +--------+ + + + + | 08/06/ | Refill | Surgery | Keann Norton, | Refill Request | | 2019 | | | MD | ([email or web address]) | +--------+ + + + + from [...] Ave | | | | | | [place], [place] | | | | | | [address] | | | | | | [phone] | | | | | | | | +--------+ + + + + | 11/17/ | Video/TeleH | Pain Management | Florencio Lockett, | | | 2019 | ealth-Sched | | PhD [address] | | | | uled | | [place], [place] | | | | | | [address] | | | | | | [phone] | | | | | | | | +--------+ + + + + | 12/01/ | Video/TeleH | Pain Management | Florencio Lcokett, | | | 2019 | ealth-Sched | | PhD [address] | | | | uled | | [place], [place] | | | | | | [address] | | | | | | [phone] | | | | | | | | +--------+ + + + + | 01/06/ Office | Plastic Surgery | Kuldip Harrell MD | | | 2020 | Visit | | [address] | | | | | | [place], [place] | | | | | | [address] | | | | | | [phone] | | | | | | | [...] | [facility] | | 04/23/ | 12GE | | [employer] | | | [employer] | | 2020 | C60A / | | Seamguard Latex Free | | | | | | | | Disposable Blue Gold Green - | | | | | | / | | [id number]: Qty: 2 on | | | | | | 834 | | 09/24/2018 by Kenan Norton | | | | | | | | MD Danielle at [facility] INPATIENT REV | | | | | | [...] | | CHAMPV | [phone] | [phone] | | Indemn | | | A | | 020-Pr | 7 | | ity | | | | | esent | | | | + +--------+ +--------+ +---------+--------+ | [employer] | [employer] | [id number] | | | | Medica [...] | | al/Fam | | 1990 | [phone] | [place] | | | korey | | | 9 (Home) | [address] | + +--------+ +--------+ + + Advance [...]
--- OUTSIDE RECORDS SUMMARY | ~2019-11-06 | XMS | Encounter Summary ---
Demographics + + + | Address | [address] | | | [place] [address] | + + + | Home Phone [...] Providers + +------+ + | Care Auto Overhauler Name | Role | Phone | + [...] | | | | CONSULT TO | [place], [place] | [place], [place] | | | | | PAIN | [address] | [address] | | | | | MANAGEMENT | Phone: | Phone: | | | | | [place] | [phone] | [phone] | | | | | BIOFEEDBACK | Fax: | Fax: | | | | | TRAINING,[place] | [phone] | [phone] | | | | | MODALITY | | | + +---------+ + + + + Encounter Details +--------+ + + + + | Date | Type | Department | Care Team | Description | +--------+ + + + + | 10/07/ | Video/TeleH | Pain Center at [facility] | Florencio Lockett, | Follow-up visit | | 2020 | ealth-Sched | [address] | PhD [address] | | | | uled | Center for Health | [place], [place] | | | | | and Healing, | [address] | | | | | [facility] | [phone] | | | | | Floor [place], [place] | | | | | | [address] | | | | | | [phone] | | | +--------+ + + + [...] virtually located at the distant site of [facility]. The patient stated they were located at the originating site of [facility] and were in the [facility] at the time of the virtual visit. The names of all additional persons participatin g in the virtual visit and their roles are: Maria De Jesus Hernández, patient, Ran Lockett, provider. I have spent a total of 75 minutes on this patient's care today. This time includes the vi rtual visit [id number] time with the patient as well as time spent reviewing patient recor ds, coordinating/communicating with care teams and documenting the patient visit. INDIVIDUAL THERAPY PROGRESS NOTE: BARIATRIC FOLLOW-UP (INCLUDING DIET AND EXERCISE COUNSELING) Name: Maria De Jesus Hernández : 1990 Medical Record: [id number] Chief Complaint: Morbid obesity Date of Service: [...] therapy. Florencio Lockett, PhD [facility] AT [facility] [address] Mailcode: [address] [id number] documented in this en counter Plan of Treatment +--------+ + + + + | Date | Type | Specialty | Care Team | Description | +--------+ + + + + | 11/13/ | Office | Gastroenterology | Cassidy Schneider, | | 2019 | Visit | | [address] | | | | | | [place], [place] | | | | | | [address] | | | | | | [phone] | | | | | | | | +--------+ + + + + | 11/17/ | Video/TeleH | Pain Management | Florencio Lockett, | | 2019 | ealt-Sched | | [address] | | | | uled | | [place], [place] | | | | | | [address] | | | | | | [phone] | | | | | | | | +--------+ + + + + | 12/01/ | Video/TeleH | Pain Management | Florencio Lockett, | | | 2019 | ealth-Sched | | PhD [address] | | | | uled | | [place], [place] | | | | | | [address] | | | | | | [phone] | | | | | | | | +--------+ + + + + | 01/06/ | Office | Plastic Surgery | Kuldip Harrell MD | | | 2019 | Visit | | [address] | | | | | | [place], [place] | | | | | | [address] | | | | | | [phone] | | | | | | | [...]
--- OUTSIDE RECORDS SUMMARY | ~2019-11-06 | XMS | Encounter Summary ---
Demographics + + + | Address | [address] | | | [place] [address] | + + + | Home Phone [...] Team Providers + +------+ + | Care Curb Setter Name | Role | Phone | + [...] Pharmacy | | | | | | [address] | | | | | | [place], [place] | | | | | | [address] | | | | | | [phone] | | | +--------+ + + + [...] [address] | | | | | | [place], [place] | | | | | | [address] | | | | | | [phone] | | | | | | | | +--------+ + + + + | 11/17/ | Video/TeleH | Pain Management | Florencio Lockett, | | | 2019 | ealth-Sched | | PhD [address] | | | | uled | | [place], [place] | | | | | | [address] | | | | | | [phone] | | | | | | | | +--------+ + + + + | 12/01/ | Video/TeleH | Pain Management | Florencio Lockett G, | | | 2019 | ealth-Sched | | PhD [address] | | | | uled | | [facility] [place] | | | | | | [address] | | | | | | [phone] | | | | | | | | +--------+ + + + + | 01/06/ | Office | Plastic Surgery | Kuldip Harrell MD | | | 2019 | Visit | | [address] | | | | | | [place], [place] | | | | | | [address] | | | | | | [phone] | | | | | | | | +--------+ + + + + documented as of this encounter Visit Diagnoses Not on filedocumented in this encounter"
--- OUTSIDE RECORDS SUMMARY | ~2019-11-06 | XMS | Encounter Summary ---
Demographics + + + | Address | [address] | | | [place] [address] | + + + | Home Phone [...] Team Providers + +------+ + | Care Pediatric Associate Name | Role | Phone | [...] Pharmacy | | | | | | [address] | | | | | | [address] [place], [place] | | | | | | [address] | | | | | | [phone] | | | +--------+ + + + [...] Ave | | | | | | [place], [place] | | | | | | [address] | | | | | | [phone] | | | | | | | | +--------+ + + + + | 11/17/ | Video/TeleH | Pain Management | Florencio Lockett, | | | 2019 | ealth-Sched | | PhD [address] | | | | uled | | [place], [place] | | | | | | [address] | | | | | | [phone] | | | | | | | | +--------+ + + + + | 12/01/ | Video/TeleH | Pain Management | Florencio Lockett, | | | 2019 | ealth-Sched | | PhD [address] | | | | uled | | [place], [place] | | | | | | [address] | | | | | | [phone] | | | | | | | | +--------+ + + + + | 01/06/ | Office | Plastic Surgery | Kuldip Harrell MD | | | 2020 | Visit | | [address] | | | | | | [place] | | | | | | [address] | | | | | | [phone] | | | | | | | | +--------+ + + + + documented as of this encounter Visit Diagnoses Not on filedocumented in this encounter"
--- OUTSIDE RECORDS SUMMARY | ~2019-11-06 | XMS | Encounter Summary ---
Demographics + + + | Address | [address] | | | [place] [address] | + + + | Home Phone [...] Team Providers + +------+ + | Care Web Merchandiser Name | Role | Phone | + [...] | | | | ([facility] at [facility] [address] | [place], [place] | | | | | [address] | [address] | | | | | Mailcode: [place] | [phone] | | | | | for Health and | | | | | | [facility], [facility] 2 | | | | | | [place], [place] | | | | | | [address] | | | | | | [phone] | | | +--------+ + + + [...] hours or on weekends and holiday Hospital International Marketing Executive toll free [phone] and have the GI doctor contact center assistant paged. The provider who performed your procedure is: Dr. Rahman Results of your EGD: Normal post surgical anatomy. May resume post surgical diet. Follow up with Dr. Duff. Follow up Appointments with: Follow up with primary care provider as needed. Thank you for choosing [facility]! Your primary care provider or referring [...] Doxycycline Rash Percocet [Oxycodone-Acetaminophen] Nausea and Vomiting [place] Oil Hives and Nausea and Vomiting Seroquel [Quetiapine Fumarate] Suicidal Ideation See procedure note 01/10/19 Julissa Rahman MD, FACS Lance Crewmember/Mlrs Sergeant [facility] Bariatric Surgery Dept of Surgery documented in this en counter Plan of Treatment +--------+ + + + + | Date | Type | Specialty | Care Team | Description | +--------+ + + + + | 11/13/ | Office | Gastroenterology | Cassidy Schneider, | | | 2019 | Visit | | [address] | | | | | | [place], [place] | | | | | | [address] | | | | | | [phone] | | | | | | | | +--------+ + + + + | 11/17/ | Video/TeleH | Pain Management | Florencio Lockett, | | | 2019 | ealth-Sched | | PhD [address] | | | | uled | | [place], [place] | | | | | | [address] | | | | | | [phone] | | | | | | | | +--------+ + + + + | 12/01/ | Video/TeleH | Pain Management | Florencio Lockett, | | | 2019 | ealth-Sched | | PhD [address] | | | | uled | | [place], [place] | | | | | | [address] | | | | | | [phone] | | | | | | | | +--------+ + + + + | 01/06/ | Office | Plastic Surgery | Kuldip Harrell MD | | 2019 | Visit | | [address] | | | | | | [place], [place] | | | | | | [address] | | | | | | [phone] | | | | | | | [...] + | MRN: | [facility] | | [id number] Date: 01/10/2019Patient Name: Maria De Jesus Gonzalez #: | ENDOSCOPY | | [id number] of : 1990CSN: [id number] Type: | | | OutpatientRoom: Endo 3Procedure: Upper GI | | | endoscopyIndications: Dysphagia, h/o lap gastric bypass | | | with multiple food | | | intolerances.Providers: JULISSA RAHMAN MD (Doctor), | | | MARTINA CUMMINS RN (Nurse), GENECREST | | | [facility] (Die Cutting Machine Operator)Referring MD: RAFFY DUFF, | | | [...] | | | The Olympus GIF-H190 Gastroscope #[id number] was introduced | | | through the [...] This was | | | traversed. The phqcm-tg-fnkcpwg limb was characterized by | | | healthy appearing mucosa. The vyzfhpzj-qh-geokdit limb was not | | | examined [...] PDT | | | | | Until [facility] 01/10/19 at 1352 | | | [...]
--- OUTSIDE RECORDS SUMMARY | ~2019-11-06 | XMS | Encounter Summary ---
Demographics + + + | Address | [address] | | | [place] [address] | + + + | Home Phone [...] Team Providers + +------+ + | Care Accreditation Manager Name | Role | Phone | [...] | +--------+ + + + + | 07/01/ | Abstract | Digestive Health | Clinic, Surgery | Medical Records | | 2020 | | Center [place] [address] | | Review | | | | [address] [facility] | | | | | | for Health and | | | | | | Healing, [address] | | | | | | [place], [place] | | | | | | [address] | | | | | | [phone] | | | +--------+ + + + [...] | | 2020 | Visit | | [address] | | | | | | [place], [place] | | | | | | [address] | | | | | | [phone] | | | | | | | | +--------+ + + + + | 11/17/ | Video/TeleH | Pain Management | Florencio Lockett, | | | 2019 | ealth-Sched | | PhD [address] | | | | uled | | [place], [place] | | | | | | [address] | | | | | | [phone] | | | | | | | | +--------+ + + + + | 12/01/ | Video/TeleH | Pain Management | Florencio Lockett, | | | 2019 | ealth-Sched | | PhD [address] | | | | uled | | [place], [place] | | | | | | [address] | | | | | | [phone] | | | | | | | | +--------+ + + + + | 01/06/ | Office | Plastic Surgery | Kuldip Harrell MD | | | 2019 | Visit | | [address] | | | | | | [place], [place] | | | | | | [address] | | | | | | [phone] | | | | | | | | +--------+ + + + + documented as of this encounter Visit Diagnoses Not on filedocumented in this encounter"
--- OUTSIDE RECORDS SUMMARY | ~2019-11-06 | XMS | Encounter Summary ---
Demographics + + + | Address | [address] | | | [place] [address] | + + + | Home Phone | | + + + | Preferred Language | Unknown | + + + | Marital Status | | + + + | Yazdanism Affiliation | Unknown | + + + | Race | Unknown | + + + | Ethnic Group | Unknown | + + + Author + + + | Author | [facility] | | | and [place] | + + + | Organization | [facility] | | [...] [place], | | | | | [place] [address] | | + + + + + Care Team Providers + +------+ + | Care Eligibility Clerk Name | Role | Phone | [...] | | | DR [address], | [address] | migrainosus (Primary | | | | [place] [address] | [phone] | Dx); Gastric bypass | | | | [phone] | | status for obesity | +--------+---------+ [...] Patient: Maria De Jesus Hernández Medical Record: [id number] Date of Services: 08/21/2019 Referring Doctor: Alisha [...] are intact. There is no dysmetria on zgfipf-pr-sydy. There are no abnormal or extraneous movements. [...] [place] | | | | | | [address] | | | | | | [phone] | | | | | | | | +--------+---------+ + + + | 11/25/ | Office | Cardiology | Katheryn Hammonds DO | | | 2019 | Visit | | [address] | | | | | | [place] | | | | | | [address] | | | | | | | [...]
--- OUTSIDE RECORDS SUMMARY | ~2019-11-06 | XMS | Encounter Summary ---
Demographics + + + | Address | [address] | | | [place] [address] | + + + | Home Phone [...] Providers + +------+ + | Care Stock Shipper Name | Role | Phone | + [...] Center at [facility] [address] | [address] | | | | | [address] [facility] | [place], | | | | | for Health and | [place] [address] | | | | | [facility], [facility] 2 | [phone] | | | | | [place], [place] | | | | | | [address] | | | | | | [phone] | | | +--------+ + + + [...] [address] | | | | | | [place], [place] | | | | | | [address] | | | | | | [phone] | | | | | | | | +--------+ + + + + | 11/17/ | Video/TeleH | Pain Management | Florencio Lockett, | | | 2019 | ealth-Sched | | PhD [address] | | | | uled | | [place], [place] | | | | | | [address] | | | | | | [phone] | | | | | | | | +--------+ + + + + | 08/10/ | Video/TeleH | Pain Management | Florencio Lockett G, | | | 2019 | ealth-Sched | | PhD [address] | | | | uled | | [place], [place] | | | | | | [address] | | | | | | [phone] | | | | | | | | +--------+ + + + + | 01/06/ | Office | Plastic Surgery | Kuldip Harrell MD | | | 2019 | Visit | | [address] | | | | | | [place], [place] | | | | | | [address] | | | | | | [phone] | | | | | | | | +--------+ + + + + documented as of this encounter Visit Diagnoses Not on filedocumented in this encounter"
--- OUTSIDE RECORDS SUMMARY | ~2019-11-06 | XMS | Encounter Summary ---
Demographics + + + | Address | [address] | | | [place] [address] | + + + | Home Phone [...] Providers + +------+ + | Care Music Video Director Name | Role | Phone | [...] | | 2020 | | Center at [facility] [address] | MD [address] | IVF infusions) | | | | [address] | [place], [place] | | | | | for Health and | [address] | | | | | Healing, [facility] 2 | [phone] | | | | | [place], [place] | | | | | | [address] | | | | | | [phone] | | | +--------+ + + + [...] [address] | | | | | | [place], [place] | | | | | | [address] | | | | | | [phone] | | | | | | | | +--------+ + + + + | 11/17/ | Video/TeleH | Pain Management | Florencio Lockett, | | | 2019 | ealth-Sched | | PhD [address] | | | | uled | | [place], [place] | | | | | | [address] | | | | | | [phone] | | | | | | | | +--------+ + + + + | 12/01/ | Video/TeleH | Pain Management | Florencio Lockett, | | | 2019 | ealth-Sched | | PhD [address] | | | | uled | | [place], [place] | | | | | | [address] | | | | | | [phone] | | | | | | | | +--------+ + + + + | 01/06/ | Office | Plastic Surgery | Kuldip Harrell MD | | | 2019 | Visit | | [address] | | | | | | [place], [place] | | | | | | [address] | | | | | | [phone] | | | | | | | | +--------+ + + + + documented as of this encounter Visit Diagnoses Not on filedocumented in this encounter"
--- OUTSIDE RECORDS SUMMARY | ~2019-11-06 | XMS | Encounter Summary ---
Demographics + + + | Address | [address] | | | [place] [address] | + + + | Home Phone [...] Providers + +------+ + | Care Digital Media Associate Name | Role | Phone | [...] [place] | | | | | David [facility] | [address] | | | | | Hospital Admitting | [place], [place] | | | | | Desk Located on the | [address] | | | | | 9th floor | [phone] | | | | | [place], [place] | | | | | | [address] | Manuel Adam | | | | | | [address] | | | | | | [place], | | | | | | [place] [address] | | +--------+ + + + + [...] [address] | | | | | | [place], [place] | | | | | | [address] | | | | | | [phone] | | | | | | | | +--------+ + + + + | 11/17/ | Video/TeleH | Pain Management | Florencio Lockett, | | | 2019 | ealth-Sched | | PhD [address] | | | | uled | | [place], [place] | | | | | | [address] | | | | | | [phone] | | | | | | | | +--------+ + + + + | 12/01/ | Video/TeleH | Pain Management | Florencio Lockett G, | | | 2019 | ealth-Sched | | PhD [address] | | | | uled | | [place], [place] | | | | | | [address] | | | | | | [phone] | | | | | | | | +--------+ + + + + | 01/06/ | Office | Plastic Surgery | Kuldip Harrell MD | | | 2019 | Visit | | [address] | | | | | | [place], [place] | | | | | | [address] | | | | | | [phone] | | | | | | | [...] 7:58 | | | | | Starting [facility] 05/30/19 at 0758, | | AM PST | | | | | Until [facility] 05/30/19 at 1032 | | | | | | + +--------+ + +------+------+ +---+---+ | | | +---+---+ + +-------+ +-------+---+---+ | dexamethasone (DECADRON) | Given | 05/30/19 | 10 mg | | | | injection INTRAPROCEDURE PRN, | | 20 7:51 | | | | | Starting [facility] 05/30/19 at 0751, | | AM PST | | | | | Until [facility] 05/30/19 at 1032 | | | | [...]
--- OUTSIDE RECORDS SUMMARY | ~2019-11-06 | XMS | Encounter Summary ---
Demographics + + + | Address | [address] | | | [place] [address] | + + + | Home Phone [...] Team Providers + +------+ + | Care Leasing Machine Tender Name | Role | Phone | [...] | | | | | [address] [facility] | [place], | | | | | for Health and | [place] [address] | | | | | [facility], [facility] 2 | [phone] | | | | | [place], [place] | | | | | | [address] | | | | | | [phone] | | | +--------+ + + + [...] [address] | | | | | | [place], [place] | | | | | | [address] | | | | | | [phone] | | | | | | | | +--------+ + + + + | 11/17/ | Video/TeleH | Pain Management | Florencio Lockett, | | | 2019 | ealth-Sched | | PhD [address] | | | | uled | | [place], [place] | | | | | | [address] | | | | | | [phone] | | | | | | | | +--------+ + + + + | 08/10/ | Video/TeleH | Pain Management | Florencio Lockett G, | | | 2019 | ealth-Sched | | PhD [address] | | | | uled | | [place], [place] | | | | | | [address] | | | | | | [phone] | | | | | | | | +--------+ + + + + | 01/06/ | Office | Plastic Surgery | Kuldip Harrell MD | | | 2019 | Visit | | [address] | | | | | | [place], [place] | | | | | | [address] | | | | | | [phone] | | | | | | | | +--------+ + + + + documented as of this encounter Visit Diagnoses Not on filedocumented in this encounter"
--- OUTSIDE RECORDS SUMMARY | ~2019-11-06 | XMS | Encounter Summary ---
Demographics + + + | Address | [address] | | | [place] [address] | + + + | Home Phone [...] Team Providers + +------+ + | Care Wrapper Layer Name | Role | Phone | + [...] at | | | | | | [facility] | | | | | | [address] | | | | | | [facility] | | | | | | and Healing, | | | | | | Building [address] | | | | | | [place], [place] | | | | | | [address] | | | | | | [phone] | | | +--------+ + + + [...] | procedure documentation); 7; | Heather Zamorano, FILTER TANK TENDER HELPER HEAD | Heather Zamorano CRNA | | | Oral; Cuffed; 09/24/18; 1512 | | | +--------+ + + + | Periph | 09/24/18; 1350; Mines; Left; | 09/24/18 1350 by | 09/26/18 1241 by | | beckie | Hand; 20 g; None; No; Positive; | Heather A Jaun, FILTER TANK TENDER HELPER HEAD | Brii Pulido RN | | IV [...] your procedure. Surgery Check in Locations Admitting [facility], ninth [facility] Surgery Check in Time: Someone from your surgeon's office or [facility] will provide you with information regarding your [...] it is after office hours, call the [facility] drum operator at [phone] and ask them to page your doc [...] your procedure. Surgery Check in Locations Admitting [facility], [facility] Surgery Check in Time: Someone from your surgeon's office or [facility] will provide you with information regarding your [...] it is after office hours, call the [facility] drum operator at [phone] and ask them to page your doc [...] Ave | | | | | | [place], [place] | | | | | | [address] | | | | | | [phone] | | | | | | | | +--------+ + + + + | 11/17/ | Video/TeleH | Pain Management | Florencio Lockett, | | | 2019 | ealth-Sched | | PhD [address] | | | | uled | | [place], [place] | | | | | | [address] | | | | | | [phone] | | | | | | | | +--------+ + + + + | 12/01/ | Video/TeleH | Pain Management | Florencio Lockett, | | | 2019 | ealth-Sched | | PhD [address] | | | | uled | | [place], [place] | | | | | | [address] | | | | | | [phone] | | | | | | | | +--------+ + + + + | 01/06/ | Office | Plastic Surgery | Kuldip Harrell MD | | | 2020 | Visit | | [address] | | | | | | [place] | | | | | | [address] | | | | | | [phone] | | | | | | | | +--------+ + + + + documented as of this encounter Visit Diagnoses Not on filedocumented in this encounter"
--- OUTSIDE RECORDS SUMMARY | ~2019-11-06 | XMS | Encounter Summary ---
Demographics + + + | Address | [address] | | | [place] [address] | + + + | Home Phone [...] Team Providers + +------+ + | Care Sports Lawyer Name | Role | Phone | + [...] | | | | | | David [facility] | | | | | | Hospital Admitting | | | | | | Desk Located on the | | | | | | 9th floor | | | | | | [place], [place] | | | | | | [address] | | | +--------+ + + + [...] Ave | | | | | | [place], [place] | | | | | | [address] | | | | | | [phone] | | | | | | | | +--------+ + + + + | 11/17/ | Video/TeleH | Pain Management | Florencio Lockett, | | | 2019 | ealth-Sched | | PhD [address] | | | | uled | | [place], [place] | | | | | | [address] | | | | | | [phone] | | | | | | | | +--------+ + + + + | 12/01/ | Video/TeleH | Pain Management | Florencio Lockett, | | | 2019 | ealth-Sched | | PhD [address] | | | | uled | | [place], [place] | | | | | | [address] | | | | | | [phone] | | | | | | | | +--------+ + + + + | 01/06/ | Office | Plastic Surgery | Kuldip Harrell MD | | | 2020 | Visit | | [address] | | | | | | [place], [place] | | | | | | [address] | | | | | | [phone] | | | | | | | | +--------+ + + + + documented as of this encounter Visit Diagnoses Not on filedocumented in this encounter"
--- OUTSIDE RECORDS SUMMARY | ~2019-11-06 | XMS | Encounter Summary ---
Demographics + + + | Address | [address] | | | [place] [address] | + + + | Home Phone [...] Providers + +------+ + | Care Health Services Information Specialist Name | Role | Phone | [...] Encounter | Center at [facility] [address] | | | | | | [address] [facility] | | | | | | for Health and | | | | | | Healing, [address] | | | | | | [place], [place] | | | | | | [address] | | | | | | [phone] | | | +--------+ + + + [...] [address] | | | | | | [place], [place] | | | | | | [address] | | | | | | [phone] | | | | | | | | +--------+ + + + + | 11/17/ | Video/TeleH | Pain Management | Florencio Lockett, | | | 2019 | ealth-Sched | | PhD [address] | | | | uled | | [place], [place] | | | | | | [address] | | | | | | [phone] | | | | | | | | +--------+ + + + + | 12/01/ | Video/TeleH | Pain Management | Florencio Lockett, | | | 2019 | ealth-Sched | | PhD [address] | | | | uled | | [facility] [place] | | | | | | [address] | | | | | | [phone] | | | | | | | | +--------+ + + + + | 01/06/ | Office | Plastic Surgery | Kuldip Harrell MD | | | 2019 | Visit | | [address] | | | | | | [place], [place] | | | | | | [address] | | | | | | [phone] | | | | | | | | +--------+ + + + + documented as of this encounter Visit Diagnoses Not on filedocumented in this encounter"
--- OUTSIDE RECORDS SUMMARY | ~2019-11-06 | XMS | Encounter Summary ---
Demographics + + + | Address | [address] | | | [place] [address] | + + + | Home Phone [...] Providers + +------+ + | Care Manager Port Name | Role | Phone | + [...] | | | | cholecystiti | [place] | [address] | | | | | s | SURGICAL | Ave Center | | | | | Procedures | [facility] | for Health | | | | | ID | [address] | and Healing, | | | | | ESOPHAGEAL | AVE | [address] | | | | | MOTILITY | [place], | [place], [place] | | | | | STUDY | [place] [address] | [address] | | | | | W/INTERP AND | Phone: | Phone: | | | | | REPORT | [phone] | [phone] | | | | | | Fax: | Fax: | | | | | | [phone] | [phone] | +--------+--------+ + + + + Encounter [...] | | | for Health and | [place] | | | | | [address], [address] | [address] | | | | | [place], [place] | [phone] | | | | | [address] | (Fax) | | | | | [phone] | | | +--------+---------+ + + + [...] 3-4 years. It is associated with nausea. Converse oscar factors include eating and drinking. She [...] given her BMI, she was referred to [facility] for consideration for cholecystectomy. She says she [...] Used Alcohol use No FAMILY HISTORY: No [place], stroke, DMII Maternal grandfather colon cancer 75 [...] Doxycycline Rash Percocet [Oxycodone-Acetaminophen] Nausea and Vomiting [place] Oil Hives and Nausea and Vomiting Seroquel [...] fevers/chills. She acknowledged understanding. Katlyn Wheeler MD [facility] General Surgery documented in this e ncounter Plan of Treatment +--------+ + + + + | Date | Type | Specialty | Care Team | Description | +--------+ + + + + | 11/13/ | Office | Gastroenterology | Cassidy Schneider, | | | 2019 | Visit | | [address] | | | | | | [place], [place] | | | | | | [address] | | | | | | [phone] | | | | | | | | +--------+ + + + + | 11/17/ | Video/TeleH | Pain Management | Florencio Lockett, | | | 2019 | ealth-Sched | | PhD [address] | | | | uled | | [place], [place] | | | | | | [address] | | | | | | [phone] | | | | | | | | +--------+ + + + + | 12/01/ | Video/TeleH | Pain Management | Florencio Lockett G, | | | 2019 | ealth-Sched | | PhD [address] | | | | uled | | [place], [place] | | | | | | [address] | | | | | | [phone] | | | | | | | | +--------+ + + + + | 01/06/ | Office | Plastic Surgery | Kuldip Harrell MD | | | 2019 | Visit | | [address] | | | | | | [place], [place] | | | | | | [address] | | | | | | [phone] | | | | | | | | +--------+ + + + + documented as of this encounter Visit Diagnoses + + | Diagnosis | + + | Biliary colic - Primary Calculus of gallbladder without mention of cholecystitis or | | obstruction | + + documented in this encounter
--- OUTSIDE RECORDS SUMMARY | ~2019-11-06 | XMS | Encounter Summary ---
Demographics + + + | Address | [address] | | | [place] [address] | + + + | Home Phone | | + + + | Preferred Language | Unknown | + + + | Marital Status | | + + + | Holiness Affiliation | Unknown | + + + | Race | Unknown | + + + | Ethnic Group | Unknown | + + + Author + + + | Author | [facility] | | | and [place] | + + + | Organization | [facility] | | [...] [place], | | | | | [place] [address] | | + + + + + Care Team Providers + +------+ + | Care Proof Technician Helper Name | Role | Phone | [...] | | [place], [place] | [place] [address] | | | | | [address] | [phone] | | | | | [phone] | | | +--------+ + + + [...] at 08/30/2018 10:05 AM PDTdocumented in this [facility] Plan of Treatment +--------+---------+ + + + | Date | Type | Specialty | Care Team | Description | +--------+---------+ + + + | 11/18/ | Office | Neurology | Shirley Murdock NP | | | 2019 | Visit | | [address] | | | | | | [place] | | | | | | [address] | | | | | | [phone] | | | | | | | | +--------+---------+ + + + | 11/25/ | Office | Cardiology | Katheryn Hammonds DO | | | 2019 | Visit | | [address] | | | | | | [place] | | | | | | [address] | | | | | | | | +--------+---------+ + + + documented as of this encounter Visit Diagnoses Not on filedocumented in this encounter"
--- OUTSIDE RECORDS SUMMARY | ~2019-11-06 | XMS | Encounter Summary ---
Demographics + + + | Address | [address] | | | [place] [address] | + + + | Home Phone [...] Team Providers + +------+ + | Care Quill Machine Operator Name | Role | Phone [...] Records | | 2020 | | [place] [phone] | | Review | | | | [address] [facility] | | | | | | for Health and | | | | | | Healing, Building [address] | | | | | | [place], [place] | | | | | | [address] | | | | | | [phone] | | | +--------+ + + + [...] | | 2020 | Visit | | [address] | | | | | | [place], [place] | | | | | | [address] | | | | | | [phone] | | | | | | | | +--------+ + + + + | 11/17/ | Video/TeleH | Pain Management | Florencio Lockett, | | | 2019 | ealth-Sched | | PhD [address] | | | | uled | | [place], [place] | | | | | | [address] | | | | | | [phone] | | | | | | | | +--------+ + + + + | 12/01/ | Video/TeleH | Pain Management | Florencio Lockett, | | | 2019 | ealth-Sched | | PhD [address] | | | | uled | | [place], [place] | | | | | | [address] | | | | | | [phone] | | | | | | | | +--------+ + + + + | 01/06/ | Office | Plastic Surgery | Kuldip Harrell MD | | | 2019 | Visit | | [address] | | | | | | [place], [place] | | | | | | [address] | | | | | | [phone] | | | | | | | | +--------+ + + + + documented as of this encounter Visit Diagnoses Not on filedocumented in this encounter"
--- OUTSIDE RECORDS SUMMARY | ~2019-11-06 | XMS | Encounter Summary ---
Demographics + + + | Address | [address] | | | [place] [address] | + + + | Home Phone [...] Team Providers + +------+ + | Care Score Caller Name | Role | Phone | + [...] | [facility] | | | with ADOBE LAYER | | | Surg Chh2 | Chh2 [...] 2 | | | | | | [place], | [place], [place] | | | | | | [place] | [address] | | | | | | [address] | Phone: | | | | | | Phone: | | | | | | | | Fax: | | | | | | Fax: | [phone] | | | | | | [phone] | | +--------+ + + + + [...] uled | [address] | [place], [place] | | | | | for Health and | [address] | | | | | [facility] 2 | [phone] | | | | | [place], [place] | | | | | | [address] | | | | | | | [...] 2 days ago with her surgeon in [facility] Dr. Whitlock. She report she is [...] Laparoscopic andreia-en-y gastric bypass with cholecystectomy 09/24/[address] [facility] [address]. Norton PHYSICAL EXAMINATION: GENERAL: [...] the supplies, she will contact he r supplier/choreography director - Will call patient's pharmacy to see [...] irtually located at the distant site of [facility]. The patient stated they were located [facility] [place] and were in the state of [place] at the time of the virtual visit. T he names of all persons participating in the virtual visit and their roles are: Maria De Jesus Hernández and Kenan Norton MD. I have spent a total of 30 minutes on this patient's care today. This time includes the vi rtual visit [id number] time with the patient as well as [...] | | 2019 | Visit | | [address] | | | | | | [place], [place] | | | | | | [address] | | | | | | [phone] | | | | | | | | +--------+ + + + + | 11/17/ | Video/TeleH | Pain Management | Florencio Lockett, | | | 2019 | ealth-Sched | | PhD [address] | | | | uled | | [place], [place] | | | | | | [address] | | | | | | [phone] | | | | | | | | +--------+ + + + + | 12/01/ | Video/TeleH | Pain Management | Florencio Lockett, | | | 2019 | ealth-Sched | | PhD [address] | | | | uled | | [place], [place] | | | | | | [address] | | | | | | [phone] | | | | | | | | +--------+ + + + + | 01/06/ | Office | Plastic Surgery | Kuldip Harrell MD | | | 2019 | Visit | | [address] | | | | | | [place], [place] | | | | | | [address] | | | | | | [phone] | | | | | | | [...]
--- OUTSIDE RECORDS SUMMARY | ~2019-11-06 | XMS | Encounter Summary ---
Demographics + + + | Address | [address] | | | [place] [address] | + + + | Home Phone [...] Team Providers + +------+ + | Care Fuel Cell Test Engineer Name | Role | Phone | [...] 2019 | | Center at [facility] [address] | MD [address] | | | | | [address] [place] | [place], [place] | | | | | [facility] and | [address] | | | | | [place], Building [address] | [phone] | | | | | [place], [place] | | | | | | [address] | | | | | | [phone] | | | +--------+ + + + [...] [address] | | | | | | [place], [place] | | | | | | [address] | | | | | | [phone] | | | | | | | | +--------+ + + + + | 11/17/ | Video/TeleH | Pain Management | Florencio Lockett, | | | 2019 | ealth-Sched | | PhD [address] | | | | uled | | [place], [place] | | | | | | [address] | | | | | | [phone] | | | | | | | | +--------+ + + + + | 12/01/ | Video/TeleH | Pain Management | Florencio Lockett, | | | 2019 | ealth-Sched | | PhD [address] | | | | uled | | [place], [place] | | | | | | [address] | | | | | | [phone] | | | | | | | | +--------+ + + + + | 01/06/ | Office | Plastic Surgery | Kuldip Harrell MD | | | 2019 | Visit | | [address] | | | | | | [place], [place] | | | | | | [address] | | | | | | [phone] | | | | | | | | +--------+ + + + + documented as of this encounter Visit Diagnoses Not on filedocumented in this encounter"
--- OUTSIDE RECORDS SUMMARY | ~2019-11-06 | XMS | Encounter Summary ---
Demographics + + + | Address | [address] | | | [place] [address] | + + + | Home Phone | | + + + | Preferred Language | Unknown | + + + | Marital Status | | + + + | Congregational Affiliation | Unknown | + + + [...] [place], | | | | | [place] [address] | | + + + + + Care Team Providers + +------+ + | Care Sales Person Name | Role | Phone [...] + + | 07/23/ | Telephone | [facility] | Katheryn Hammonds DO | Advice Only | | 2019 | | CARDIOLOGY [place] | [address] | ([employer] monitor | | | | [address] | [place], [place] | study) | | | | [place], [place] | [id number] | | | | | [address] | | | | | | [phone] | | | +--------+ + + + [...] Miscellaneous Notes Telephone Encounter - Nanette Carroll, Psychology Professor - 07/24/2019 1:17 PM PDTReceived phone call from Gill @ [employer] to advise patient ended study early stating [...] | Visit | | [address] | | | | | | [place] | | | | | | [address] | | | | | | [phone] | | | | | | | | +--------+---------+ + + + | 11/25/ | Office | Cardiology | Katheryn Hammonds DO | | 2019 | Visit | | [address] | | | | | | [place] | | | | | | [address] | | | | | | | | +--------+---------+ + + + documented as of this encounter Visit Diagnoses Not on filedocumented in this encounter
--- OUTSIDE RECORDS SUMMARY | ~2019-11-06 | XMS | Encounter Summary ---
Demographics + + + | Address | [address] | | | [place] [address] | + + + | Home Phone [...] Team Providers + +------+ + | Care Hide Selector Name | Role | Phone | + +------+ + | Alisha Stovall PA-C | PCP | | + +------+ + Encounter Details +--------+ + + + + | Date | Type | Department | Care Team | Description | +--------+ + + + + | 06/20/ | Store Operations Manager | Digestive Health | Kenan Norton, | Preop testing | | 2019 | | Center at [facility] [address] | MD [address] | (Primary Dx) | | | | [address] | [place], [place] | | | | | for Health and | [address] | | | | | Healing, [address] | [phone] | | | | | [place], [place] | | | | | | [address] | | | | | | [phone] | | | +--------+ + + + [...] [address] | | | | | | [place], [place] | | | | | | [address] | | | | | | [phone] | | | | | | | | +--------+ + + + + | 11/17/ | Video/TeleH | Pain Management | Florencio Lockett, | | | 2019 | ealth-Sched | | PhD [address] | | | | uled | | [place], [place] | | | | | | [address] | | | | | | [phone] | | | | | | | | +--------+ + + + + | 12/01/ | Video/TeleH | Pain Management | Florencio Lockett G, | | | 2019 | ealth-Sched | | PhD [address] | | | | uled | | [place], [place] | | | | | | [address] | | | | | | [phone] | | | | | | | | +--------+ + + + + | 01/06/ | Office | Plastic Surgery | Kuldip Harrell MD | | | 2019 | Visit | | [address] | | | | | | [place], [place] | | | | | | [address] | | | | | | [phone] | | | | | | | [...] | + + + + + | [facility] | [address] | [place] [address] | | | SERVICES, CORE | PARK [...] | | | | | determined by [facility] | | | | | | Laboratories. See | | | | | | Compliance Statement B: | | | | | | [email or web address]/[email or web address] | | | | | | by [facility],[address] | | | | | [address], [place] | | | | | | [address] | | | | | | [phone].[employer]. | | | | | | Josué mcdaniel MD, | | | | | | Lab. Director | | | | + + + + + + | COTININE | <2 | ng/mL | [facility] | | | | | | REG [...] [facility] | [address] | [place], [place] | | | UNIV PTH - INT | | [address] | | + + + + + documented in this encounter Visit Diagnoses + + | Diagnosis | + + | Preop testing - Primary Preoperative examination, unspecified | + + documented in this encounter"
--- OUTSIDE RECORDS SUMMARY | ~2019-11-06 | XMS | Encounter Summary ---
Demographics + + + | Address | [address] | | | [place] [address] | + + + | Home Phone [...] Team Providers + +------+ + | Care Financial Services Rep Name | Role | Phone | + +------+ + | Alisha Stovall PA-C | PCP | | + +------+ + Encounter Details +--------+ + + + + | Date | Type | Department | Care Team | Description | +--------+ + + + + | 07/26/ | MyChart | Digestive Health | Kenan Nortno, | RE: feeding tube | | 2019 | Encounter | Center at [facility] [address] | MD [address] | | | | | [address] | [facility] [place] | | | | | for Health and | [address] | | | | | Healing, [address] | [phone] | | | | | [place], [place] | | | | | | [address] | | | | | | | [...] [place] | | | | | | [address] | | | | | | [phone] | | | | | | | | +--------+ + + + + | 11/17/ | Video/TeleH | Pain Management | Florencio Lockett, | | | 2019 | ealth-Sched | | PhD [address] | | | | uled | | [place], [place] | | | | | | [address] | | | | | | [phone] | | | | | | | | +--------+ + + + + | 12/01/ | Video/TeleH | Pain Management | Florencio Lockett, | | | 2019 | ealth-Sched | | PhD [address] | | | | uled | | [place], [place] | | | | | | [address] | | | | | | [phone] | | | | | | | | +--------+ + + + + | 01/06/ | Office | Plastic Surgery | Kuldip Harrell MD | | | 2019 | Visit | | [address] | | | | | | [place], [place] | | | | | | [address] | | | | | | [phone] | | | | | | | | +--------+ + + + + documented as of this encounter Visit Diagnoses Not on filedocumented in this encounter"
--- OUTSIDE RECORDS SUMMARY | ~2019-11-06 | XMS | Encounter Summary ---
Demographics + + + | Address | [address] | | | [place] [address] | + + + | Home Phone [...] Team Providers + +------+ + | Care Sand Mill Operator Facing Sand Name | Role | Phone | + [...] Pharmacy | | | | | | [address] | | | | | | [place], [place] | | | | | | [address] | | | | | | [phone] | | | +--------+ + + + [...] [address] | | | | | | [place], [place] | | | | | | [address] | | | | | | [phone] | | | | | | | | +--------+ + + + + | 11/17/ | Video/TeleH | Pain Management | Florencio Lockett, | | | 2019 | ealth-Sched | | PhD [address] | | | | uled | | [place], [place] | | | | | | [address] | | | | | | [phone] | | | | | | | | +--------+ + + + + | 12/01/ | Video/TeleH | Pain Management | Florencio Lockett G, | | | 2019 | ealth-Sched | | PhD [address] | | | | uled | | [facility] [place] | | | | | | [address] | | | | | | [phone] | | | | | | | | +--------+ + + + + | 01/06/ | Office | Plastic Surgery | Kuldip Harrell MD | | | 2019 | Visit | | [address] | | | | | | [place], [place] | | | | | | [address] | | | | | | [phone] | | | | | | | | +--------+ + + + + documented as of this encounter Visit Diagnoses Not on filedocumented in this encounter"
--- OUTSIDE RECORDS SUMMARY | ~2019-11-06 | XMS | Encounter Summary ---
Demographics + + + | Address | [address] | | | [place] [address] | + + + | Home Phone | | + + + | Preferred Language | Unknown | + + + | Marital Status | | + + + | Sabianist Affiliation | NRP | + + + [...] Providers + +------+ + | Care Dog Barber Name | Role | Phone | + [...] [address] | | | | | | [place], [place] | | | | | | [address] | | | | | | [phone] | | | | | | | | +--------+ + + + + | 11/17/ | Video/TeleH | Pain Management | Florencio Lockett, | | | 2019 | ealth-Sched | | PhD [address] | | | | uled | | [place], [place] | | | | | | [address] | | | | | | [phone] | | | | | | | | +--------+ + + + + | 12/01/ | Video/TeleH | Pain Management | Florencio Lockett, | | | 2019 | ealth-Sched | | PhD [address] | | | | uled | | [place], [place] | | | | | | [address] | | | | | | [phone] | | | | | | | | +--------+ + + + + | 01/06/ | Office | Plastic Surgery | Kuldip Harrell MD | | 2019 | Visit | | [address] | | | | | | [place], [place] | | | | | | [address] | | | | | | [phone] | | | | | | | | +--------+ + + + + documented as of this encounter Visit Diagnoses Not on filedocumented in this encounter"
--- OUTSIDE RECORDS SUMMARY | ~2019-11-06 | XMS | Encounter Summary ---
Demographics + + + | Address | [address] | | | [place] [address] | + + + | Home Phone [...] Team Providers + +------+ + | Care Apparel Rental Clerk Name | Role | Phone | [...] Records | | 2019 | | Center [address] [place] [address] | | Review | | | | [address] [facility] | | | | | | for Health and | | | | | | Healing, Building [address] | | | | | | [place], [place] | | | | | | [address] | | | | | | [phone] | | | +--------+ + + + [...] | | 2020 | Visit | | [address] | | | | | | [place], [place] | | | | | | [address] | | | | | | [phone] | | | | | | | | +--------+ + + + + | 11/17/ | Video/TeleH | Pain Management | Florencio Lockett, | | | 2019 | ealth-Sched | | PhD [address] | | | | uled | | [place], [place] | | | | | | [address] | | | | | | [phone] | | | | | | | | +--------+ + + + + | 12/01/ | Video/TeleH | Pain Management | Florencio Lockett, | | | 2019 | ealth-Sched | | PhD [address] | | | | uled | | [place], [place] | | | | | | [address] | | | | | | [phone] | | | | | | | | +--------+ + + + + | 01/06/ | Office | Plastic Surgery | Kuldip Harrell MD | | | 2019 | Visit | | [address] | | | | | | [place], [place] | | | | | | [address] | | | | | | [phone] | | | | | | | | +--------+ + + + + documented as of this encounter Visit Diagnoses Not on filedocumented in this encounter"
--- OUTSIDE RECORDS SUMMARY | ~2019-11-06 | XMS | Encounter Summary ---
Demographics + + + | Address | [address] | | | [place] [address] | + + + | Home Phone [...] Team Providers + +------+ + | Care Authors Motivational Name | Role | Phone | + [...] | | | | | bypass | [place], [place] | [facility] and | | | | | Dehydration | [address] | Healing, | | | | | Inadequate | Phone: | Building 2 | | | | | oral intake | [phone] | [place], [place] | | | | | Procedures | Fax: | [address] | | | | | CONSULT TO | [phone] | Phone: | | | | | GI PROCEDURE | | [phone] | | | | | UNIT: EGD | | Fax: | | | | | CA UPPER GI | | [phone] | | | | | ENDOSCOPY,BI | [...] | | [address] | [place], [place] | | | | | [facility] Health and | [address] | | | | | Healing, [facility] 2 | | | | | | [place], [place] | | | | | | [address] | | | | | | | [...] [address] | | | | | | [facility] [place] | | | | | | [address] | | | | | | [phone] | | | | | | | | +--------+ + + + + | 11/17/ | Video/TeleH | Pain Management | Florencio Lockett, | | | 2019 | ealth-Sched | | PhD [address] | | | | uled | | [place], [place] | | | | | | [address] | | | | | | [phone] | | | | | | | | +--------+ + + + + | 12/01/ | Video/TeleH | Pain Management | Florencio Lockett, | | | 2019 | ealth-Sched | | PhD [address] | | | | uled | | [place], [place] | | | | | | [address] | | | | | | [phone] | | | | | | | | +--------+ + + + + | 01/06/ | Office | Plastic Surgery | Kuldip Harrell MD | | | 2019 | Visit | | [address] | | | | | | [place], [place] | | | | | | [address] | | | | | | [phone] | | | | | | | [...]
--- OUTSIDE RECORDS SUMMARY | ~2019-11-06 | XMS | Encounter Summary ---
Demographics + + + | Address | [address] | | | [place] [address] | + + + | Home Phone [...] Team Providers + +------+ + | Care Refining Supervisor Name | Role | Phone | [...] | | | | | | | [place] | | | | | | | ESOPHAGEAL | | | | | | | MOTILITY | | | | | | | STUDY | | | | | | | W/INTERP AND | | | | | | | REPORT [place] | | | | | | | [...] [facility] [address] | MD [address] | (Primary Dx) | | | | [address] | [place], [place] | | | | | [facility] Health and | [address] | | | | | [facility] 2 | [phone] | | | | | [place], [place] | | | | | | [address] | | | | | | [phone] | | | +--------+---------+ + + + [...] fiancee 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 SUPPLEMENTS: Hasn't been taking, can't afford [...] [address] | | | | | | [place], [place] | | | | | | [address] | | | | | | [phone] | | | | | | | | +--------+ + + + + | 11/17/ | Video/TeleH | Pain Management | Florencio Lockett, | | | 2019 | ealth-Sched | | PhD [address] | | | | uled | | [place], [place] | | | | | | [address] | | | | | | [phone] | | | | | | | | +--------+ + + + + | 12/01/ | Video/TeleH | Pain Management | Florencio Lockett, | | | 2019 | ealth-Sched | | PhD [address] | | | | uled | | [place], [place] | | | | | | [address] | | | | | | [phone] | | | | | | | | +--------+ + + + + | 01/06/ | Office | Plastic Surgery | Kuldip Harrell MD | | | 2019 | Visit | | [address] | | | | | | [place], [place] | | | | | | [address] | | | | | | [phone] | | | | | | | [...] images. Fluoro Time: 60 sec FINDINGS: Initial internet salesperson | | | radiograph demonstrates surgical sutures [...] Time: 60 sec | | FINDINGS: Initial internet salesperson radiograph demonstrates surgical sutures over the left [...] LABORATORY | [address] | [place] [address] | | | [facility] | | | | | HEALTH [...] INTFC | | | | determined by [facility] | | | | | | Laboratories. See | | | | | | Compliance Statement B: | | | | | | [employer]/CSPerformed | | | | | | by [employer],[address] | | | | | | [address], [facility] | | | | | | [address] | | | | | | [phone].[employer]. | | | | | | heber [...] [facility] | [address] | [place], [place] | | | UNIV PTH - INTFC | | [address] | | + + + + + [...] | | | | | determined by [facility] | | | | | | Laboratories. See | | | | | | Compliance Statement B: | | | | | | [employer]/CSPerformed | | | | | | by [employer],[address] | | | | | | [facility],[place] | | | | | | [address] | | | | | | [phone].[employer]. | | | | | | heber [...] [facility] | [address] | [place], [place] | | | UNIV PTH - INTFC | | [address] | | + + + + + [...] | + + + + + | [facility] | [address] | [place] [address] | | | SERVICES, CORE | SAMMI [...] | + + + + + | [facility] | [address] | [place] [address] | | | SERVICES, CORE | SAMMI [...] | | | | | | by [employer],[address] | | | | | | [address], [facility],[place] | | | | | | [address] | | | | | | [phone].[employer]. | | | | | | heber [...] [facility] | [address] | [place], [place] | | | UNIV PTH - INTFC | | [address] | | + + + + + [...] [facility] | | | (PAULIE EMMANUEL) | [employer],[address] | | REG UNIV | | | SERUM | [address], [facility] | | PTH - INTFC | | | | [address] | | | | | | [phone].[employer]. | | | | | | comJosué [...] B: | | | | | | [employer]/CS | | | | + + + + + + + + | Specimen | + + | Blood - Blood | | (substance) | + + + + + + + | Performing | Address | City/State/Zipcode | Phone Number | | Organization | | | | + + + + + | [facility] | [address] | [place], [place] | | | UNIV PTH - INTFC | | [address] | | + + + + + [...] | | | | | determined by [facility] | | | | | | Laboratories. See | | | | | | Compliance Statement B: | | | | | | Entrec/CSPerformed | | | | | | by [employer],[address] | | | | | | [place], [place] | | | | | | [address] | | | | | | [phone].[employer]. | | | | | | Josué [...] [facility] | [address] | [place], [place] | | | UNIV PTH - INTFC | | [address] | | + + + + + [...] [facility] | [address] | [place] [address] | | | SERVICES, CORE | SAMMI [...] | + + + + + | [facility] | [address] | [place] [address] | | | SERVICES, SPECIAL | SAMMI [...] | + + + + + | [facility] | [address] | [place] [address] | | | SERVICES, CORE | SAMMI [...] B: | | | | | | [email or web address] | | | | | | by [employer],[address] | | | | | | [address], [place] | | | | | | [id number] | | | | | | [phone].[employer]. | | | | | | Josué [...] [facility] | [address] | [place], [place] | | | [facility] | | [address] | | + + + + + [...] | | | LABORATORY | | | YEMENI | | | SERVICES, | | | [...] [facility] | [address] | [place] [address] | | | [facility] | | | | | [...]
--- OUTSIDE RECORDS SUMMARY | ~2019-11-06 | XMS | Encounter Summary ---
Demographics + + + | Address | [address] | | | [place] [address] | + + + | Home Phone [...] Team Providers + +------+ + | Care Equipment Validation Engineer Name | Role | Phone | [...] | 01/10/ | Lab | Laboratory at [facility] | | No Show | | 2019 | | [address] | | | | | | [facility] | | | | | | and Healing, | | | | | | Building [address] | | | | | | [place], [place] | | | | | | [address] | | | | | | [phone] | | | +--------+------+ + + + [...] [address] | | | | | | [place], [place] | | | | | | [address] | | | | | | [phone] | | | | | | | | +--------+ + + + + | 11/17/ | Video/TeleH | Pain Management | Florencio Lockett, | | | 2019 | ealth-Sched | | PhD [address] | | | | uled | | [place], [place] | | | | | | [address] | | | | | | [phone] | | | | | | | | +--------+ + + + + | 12/01/ | Video/TeleH | Pain Management | Florencio Lockett, | | | 2019 | ealth-Sched | | PhD [address] | | | | uled | | [place], [place] | | | | | | [address] | | | | | | [phone] | | | | | | | | +--------+ + + + + | 01/06/ | Office | Plastic Surgery | Kuldip Harrell MD | | | 2019 | Visit | | [address] | | | | | | [place], [place] | | | | | | [address] | | | | | | [phone] | | | | | | | | +--------+ + + + + documented as of this encounter Visit Diagnoses Not on filedocumented in this encounter"
--- OUTSIDE RECORDS SUMMARY | ~2019-11-06 | XMS | Encounter Summary ---
Demographics + + + | Address | [address] | | | [place] [address] | + + + | Home Phone [...] Providers + +------+ + | Care Director Of Maternity Services Name | Role | Phone | [...] TUBE PLACEMENT, | | | | Rd [facility] | [place], [place] | DIAGNOSTIC | | | | Hospital Admitting | [address] | LAPAROSCOPY; | | | | Desk Located on the | [phone] | | | | | 9th floor | | | | | | [place], [place] | | | | | | [address] | | | +--------+---------+ + + + [...] might be different from adryan vann. [facility] RED SURGERY INPATIENT DISCHARGE SUMMARY Author: IVONNE [...] assist with nutrition. She was admitted to [facility] 05/30/2019 for the above list ed procedures. She tolerated the procedure well with no complications. She was kept over [facility] for observation. Her diet was advanced to [...] suppository rectally once daily as needed. Remove youth support worker, insert 1 suppository into rectum and retain [...] Take 40 mg by mouth once daily. JARE-RXCY-WSYOY (PABA) ORAL Take 1 Dose by mouth [...] 'after hours' URGENT problems please call the [facility] dump motor operator at and ask fo r the [...] to Prevent Infection", log into y our [employer] account at [email or web address]. You can enter U010 in the "[employer]" search box. Not on [employer]? Review the [employer] section of your After Visit Summary for directions on ho w to sign up. Current as of: April 11, 2018 Content Version: .[id number] [employer] (NOOM). Care instructions adapted under license by [facility]. If you have questions about a medical condition or this instr uction, always ask your healthcare professional. [employer] (NOOM) disclaims any denise anty or liability for [...] Outstanding labs/studies: None Lucero Arias MD PhD [facility] General Surgery Red Surgery Pager # [phone] Associated attestation - Aysha Meyer MD - 06/02/2019 3:58 PM PSTI saw and evaluated the patient. I agree with the findings and the plan of care as documented in the resident s note. Aysha Meyer MD [facility] [address] [place] [address] documented in this encounter Discharge [...] hours by calling the surgery office at [phone]. - After hours, weekends and holidays, you may call the hospital dump motor operator at [phone] an d have the salesperson used cars Red Surgery Team paged.Electronically signed by Lucero [...] ex lap and g tube placement to [facility] ist with nutrition. She was admitted to [facility] 05/30/2019 for the above listed procedures. [...] 'after hours' URGENT problems please call the [facility] dump motor operator at and ask fo r the [...] to Prevent Infection", log into y our [employer] account at [email or web address]. You can enter U010 in the "[employer]" search box. Not on [employer]? Review the MyChart section of your After Visit Summary for directions on leonel huynh to sign up. Current as of: April 11, 2018 Content Version: [id number] [employer] (NOOM). Care instructions adapted under license by [facility]. If you have questions about a medical condition or this instr uction, always ask your healthcare professional. [employer] ([employer]) disclaims any denise anty or liability for [...] through Care Everywhere.Feeding Tube: G eneral Info ([place])Tube Feeding: Home ([place])PEG (Percutaneous Endoscopic Gastrostomy): Post-op ([place]er)OHSU: Gastrostomy Tube Use and Care ([place]er)Indwelling Urinary Catheter Ca re: General Info ([place]er)documented in this encounter Medications at Time of [...] | | | | | | | (WDYT-ESLW-CASFZ | | | | | | | [...] Doxycycline Rash Percocet [Oxycodone-Acetaminophen] Nausea and Vomiting [place] Oil Hives and Nausea and Vomiting Seroquel [...] Fill and pull 06/04 in clinic. Follow-up [facility] Dr. Norton in 2 weeks. BP 108/54 [...] in plac e. Incisions well-approximated, c/d/i. : Olmso catheter in place with clear yellow urine. [...] olmos teaching complete. Lucero Arias MD PhD [facility] General Surgery Red Surgery Pager #[phone] Associated attestation - Aysha Meyer MD - 06/02/2019 4:21 PM PSTI saw and evaluated the patient. I agree with the findings and the plan of care as documented in the resident s note. Aysha Meyer MD [facility] [address] [place] [address] Kelly Baker MD - 06/01/2019 2:43 PM [...] Doxycycline Rash Percocet [Oxycodone-Acetaminophen] Nausea and Vomiting [place] Oil Hives and Nausea and Vomiting Seroquel [...] Diazepam Kelly Baker MD Chronic Pain Fellow [facility] Spine center [id number] Associated attestation - Sammi Ayala MD - [...] pain control. Rachel Ward MD MIS Fellow [id number] Lucero Ge MD - 05/31 12:28 PM [...] improved pain control. Lucero Arias MD PhD [facility] General Surgery Red Surgery Pager # [phone] Associated attestation - Kenan Norton MD - 06/02/2019 9:09 PM PSTA resident assisted with documenting this service. I saw the patient and reviewed and verified all information d ocumented by the resident, and made modifications to such information, when appropriate. Kenan Norton MD, MS Hris Analyst [facility] Bariatric Surgery documented in this encounter Plan of Treatment +--------+ + + + + | Date | Type | Specialty | Care Team | Description | +--------+ + + + + | 11/13/ | Office | Gastroenterology | Cassidy Schneider, | | 2019 | Visit | | [address] | | | | | | [place], [place] | | | | | | [address] | | | | | | [phone] | | | | | | | | +--------+ + + + + | 11/17/ | Video/TeleH | Pain Management | Florencio Lockett, | | | 2019 | ealth-Sched | | PhD [address] | | | | uled | | [place], [place] | | | | | | [address] | | | | | | [phone] | | | | | | | | +--------+ + + + + | 12/01/ | Video/TeleH | Pain Management | Florencio Lockett, | | | 2019 | ealth-Sched | | PhD [address] | | | | uled | | [place], [place] | | | | | | [address] | | | | | | [phone] | | | | | | | | +--------+ + + + + | 01/06/ | Office | Plastic Surgery | Kuldip Harrell MD | | | 2019 | Visit | | [address] | | | | | | [place], [place] | | | | | | [address] | | | | | | [phone] | | | | | | | [...] DEPT OF | [address] | [place], [place] | | | CARDIOLOGY | [address] | [address] | | + + + + + [...] + + + + + | [facility] | [address] | [place] [address] | | | SERVICES, CORE | [address] [...] | | | LABORATORY | | | AZERBAIJANI | | | SERVICES, | | | [...] | 17 | 8 - 25 | [facility] | | | INE RATIO | | [...] + + + + + | [facility] | [address] [facility] | [place] [address] | | | SERVICES, CORE | [address] | | | + + + + + X-RAY PORTABLE ABD TUBE OR CATH EVAL W CONTRAST (06/01/2019 1:25 PM PST) + + | Specimen | + + | | + + + + + | Narrative | Performed At | + + + | EXAM: MS ABD TUBE OR CATH EVAL W CONTRAST. [...] Note | + + | Service Account, [employer] In Interface - 06/01/2019 5:14 PM PST EXAM: MS ABD TUBE | | OR CATH EVAL [...] | + + + + + | [facility] | [address] [facility] | [place], [place] | | | CARDIOLOGY | [address] | [address] | | + + + + + [...] | | | LABORATORY | | | AZERBAIJANI | | | SERVICES, | | | [...] + + + + + | [facility] | [address] | [place] [address] | | | SERVICES, CORE | PARK [...] MARQUAM | [address] | [place], [place] | | | TUSHAR KING OF CARE | [address] | [address] | | | TESTS | | | [...] - LAURIAM | [address] | [place], [place] | | | CHRISTINE POINT OF CARE | [address] | [address] | | | TESTS | | | [...] FORMAN | [address] | [place], [place] | | | TUSHAR KING OF [facility] | [address] | [address] | | | TESTS | | | [...] | | | | | dose on [facility] 05/30/19 at 1715, Until | | [...] | | | | ONCE, 1 dose, [facility] 05/30/19 at 0700 | | AM PST [...] | | | rectal, ONCE, 1 dose, [place] 06/02/19 | | PM PST | | [...] | | | | First dose on [facility] 05/30/19 at 2100, | | PM [...] Auricula | | dose, First dose on [facility] 05/30/19 at | | | | | [...] | | | | | reorder) on [place] 06/02/19 at 1015 | | | | [...]
--- OUTSIDE RECORDS SUMMARY | ~2019-11-06 | XMS | Encounter Summary ---
Demographics + + + | Address | [address] | | | [place] [address] | + + + | Home Phone [...] Team Providers + +------+ + | Care Hurricane Tracker Name | Role | Phone | + [...] | 2019 | | GEM [facility] | [address] | [address]PASS, | | | | Rd [facility] | [place], [place] | | | | | Hospital Admitting | [address] | | | | | Desk Located on the | [phone] | | | | | 9th floor | | | | | | [place], [place] | | | | | | [address] | | | +--------+---------+ + + + [...] Watson ACNP - 09/26/2018 10:36 AM PDT [facility] RED SURGERY INPATIENT DISCHARGE SUMMARY Author: DIEGO [...] or Kefir, [place] Yogurt, and Chioban i Georgian Yogurt are common brands with beneficial probiotics. [...] are available over the counter at most [facility] stores. Nausea/Vomiting/Difficulty Swallowing Nausea/Vomiting/Difficulty swallowing: Could [...] hours per your instructions. Some medications, like [place], have Tylenol in it. Make sure you [...] (PCP) as this clinic does not provide [facility] chronic pain management services. When to Call [...] hours by calling the surgery office at [phone]. - After hours, weekends and holidays, you may call the hospital button decorating machine operator at [phone] an d have the operations label clerk Red Surgery Team paged. Destination Home Condition [...] Phone Center 10/02/2018 1:30 PM Indu Pisano [facility] at [facility] [phone] FOOD AND N UT 10/02/2018 2:20 PM Mehreen Bee [facility] at [facility] [phone] [facility] 10/26/2018 8:30 AM Kenan Norton [facility] at [facility] [phone] [facility] 10/26/2018 9:00 AM Lisa Medina [facility] at [facility] [phone] FOOD AND NUT 12/21/2018 10:30 AM Pedro Sánchez [facility] at [facility] [phone] FOOD AND N UT 12/21/2018 11:20 AM Jody Watson [facility] at [facility] [phone] [facility] Discharging Physician: DIEGO Plascencia Attending Physician: Kenan Norton MD [facility] Red Surgery Pager# [phone] 10:37 AM 09/26/2018 documented in this enco [...] full liquid diet today - Seen by circle shear operator yesterday - dc MIVF - Encourage ambulation, [...] OF VISIT: 09/24/18 HISTORY: Maria De Jesus Anan is a 27 y.o. female who has [...] prescribed screening protocols as defined by the [facility] bariatric program including medic al, [...] Doxycycline Rash Percocet [Oxycodone-Acetaminophen] Nausea and Vomiting [place] Oil Hives and Nausea and Vomiting Seroquel [Quetiapine Fumarate] Suicidal Ideation Social History Narrative Lexiscan Myocardial Perfusion Study ([facility]) 02/19/2018 (see media): CHEST 2 VIEWS 02/06/2018: [...] | | 2019 | Visit | | [address] | | | | | | [place], [place] | | | | | | [address] | | | | | | [phone] | | | | | | | | +--------+ + + + + | 11/17/ | Video/TeleH | Pain Management | Florencio Lockett, | | | 2019 | ealth-Sched | | PhD [address] | | | | uled | | [place], [place] | | | | | | [address] | | | | | | [phone] | | | | | | | | +--------+ + + + + | 12/01/ | Video/TeleH | Pain Management | Florencio Lockett, | | | 2019 | ealth-Sched | | PhD [address] | | | | uled | | [place], [place] | | | | | | [address] | | | | | | [phone] | | | | | | | | +--------+ + + + + | 01/06/ | Office | Plastic Surgery | Kuldip Harrell MD | | 2019 | Visit | | [address] | | | | | | [place], [place] | | | | | | [address] | | | | | | [phone] | | | | | | | [...] CHOLECYSTECOMY | ve | 12:10 PM | ([facility]) | | | | Surgic | PDT [...] FORMAN | [address] | [place], [place] | | | TUSHAR KING OF STACEY | [address] | [address] | | | TESTS | | | [...] MARQUAM | [address] | [place], [place] | | | TUSHAR KING OF CARE | [address] | [address] | | | TESTS | | | [...] DICKSON | [address] | [place], [place] | | | CHRISTINE POINT OF CARE | [address] | [address] | | | TESTS | | | [...] FORMAN | [address] | [place], [place] | | | TUSHAR KING OF STACEY | [address] | [address] | | | TESTS | | | [...] MARQUAM | [address] | [place], [place] | | | TUSHAR KING OF CARE | [address] | [address] | | | TESTS | | | [...] + + + | PEE FORMAN | [address] [facility] | [place], [place] | | | DUNEDIN POINT OF [facility] | [address] | [address] | | | TESTS | | | | + + + + + EGD (ESOPHAGOGASTRODUODENOSCOPY) (09/24/2018 3:01 PM PDT) + + + | Narrative | Performed At | + + + | Kenan Norton MD 09/24/2018 3:26 PM Date of Procedure: | | | 09/24/18 Primary Surgeon: Kenan Norton MD Co Surgeon or | | | certified surgical first assistant: Wendy Rawls MD; MIS Fellow Preoperative [...] | Anesthesia: General endotracheal anesthesia Staff: Codi MELTER CASTER: | | | Heather Zamorano Complications: none [...] limb and a | | | 60mm [place] stapler with white load was fired to create a | | | cled-el-otml jejunojejunostomy. The anastamosis was confirmed to | | | be widely patent and hemostatic. The common enterotomy was closed | | | by firing an [place] 60mm stapler with white load across the [...] was | | | entered. The 60mm [place] stapler with blue load was placed and | | | fired transversely to start gastric pouch formation. The [place] | | | was then fired longitudinally towards the angle of His. Dissection | | | was performed retrogastric to connect posterior and anterior | | | dissection planes and ensure adequate fundus exclusion. Additional | | | fires of the [place] stapler were performed with blue loads to [...] | | the small bowel. The 60mm [place] stapler with blue load was then | [...] Kenan Norton MD, MS | | | [employer] [facility] Bariatric Surgery | | + + + LAPAROSCOPIC CHOLECYSTECTOMY (09/24/2018 3:01 PM PDT) + + + | Narrative | Performed At | + + + | Kenan Norton MD 09/24/2018 3:26 PM Date of Procedure: | | | 09/24/18 Primary Surgeon: Kenan Norton MD Co Surgeon or | | | certified surgical first assistant: Wendy Rawls MD; MIS Fellow Preoperative [...] | Anesthesia: General endotracheal anesthesia Staff: Codi MELTER CASTER: | | | Heather Zamorano Complications: none [...] limb and a | | | 60mm [place] stapler with white load was fired to create a | | | wyga-ur-mcfq jejunojejunostomy. The anastamosis was confirmed to | | | be widely patent and hemostatic. The common enterotomy was closed | | | by firing an [place] 60mm stapler with white load across the [...] was | | | entered. The 60mm [place] stapler with blue load was placed and | | | fired transversely to start gastric pouch formation. The [place] | | | was then fired longitudinally towards the angle of His. Dissection | | | was performed retrogastric to connect posterior and anterior | | | dissection planes and ensure adequate fundus exclusion. Additional | | | fires of the [place] stapler were performed with blue loads to [...] | | the small bowel. The 60mm [place] stapler with blue load was then | [...] Kenan Norton MD, MS | | | [employer] [facility] Bariatric Surgery | | + [...] MD Co Surgeon or | | | certified surgical first assistant: Wendy Rawls MD; MIS Fellow Preoperative [...] | Anesthesia: General endotracheal anesthesia Staff: Codi MELTER CASTER: | | | Heather Zamorano Complications: none [...] limb and a | | | 60mm [place] stapler with white load was fired to create a | | | ufol-wc-djoc jejunojejunostomy. The anastamosis was confirmed to | | | be widely patent and hemostatic. The common enterotomy was closed | | | by firing an [place] 60mm stapler with white load across the [...] was | | | entered. The 60mm [place] stapler with blue load was placed and | | | fired transversely to start gastric pouch formation. The [place] | | | was then fired longitudinally towards the angle of His. Dissection | | | was performed retrogastric to connect posterior and anterior | | | dissection planes and ensure adequate fundus exclusion. Additional | | | fires of the [place] stapler were performed with blue loads to [...] | | the small bowel. The 60mm [place] stapler with blue load was then | [...] Kenan Norton MD, MS | | | [employer] [facility] Bariatric Surgery | | + [...] PATHOLOGY | Jane on | | | [facility] | | | 09/26/2018 at | | | Student FellowChristian | | | 12:10 PM | | | MD Jane, PhD | | | | | | | | | | | | PathologistPathology, | | | | | | [facility] | | | | | | [...] number | | | | | | [id number].A. Abdominal, | | | | | | [...] and | | | | | | jewelry sales representative sections | | | | | | from the fundus and body | | | | | | are submitted.A1, | | | | | | cystic duct margin en | | | | | | face, jewelry sales representative | | | | | [...] | + + + + + | [facility] | [address] | [place] [address] | | | PATHOLOGY | [address] [...] DICKSON | [address] | [place], [place] | | | TUSHAR KING OF CARE | [address] | [address] | | | TESTS | | | [...] PEE FORMAN | [address] | [place], [place] | | | CHRISTINE [facility] | [address] | [address] | | | TESTS | | | [...]
--- OUTSIDE RECORDS SUMMARY | ~2019-11-06 | XMS | Encounter Summary ---
Demographics + + + | Address | [address] | | | [place] [address] | + + + | Home Phone [...] Providers + +------+ + | Care Manager Of Distribution Name | Role | Phone | + [...] | geal reflux | [facility] | [place] [facility] | | | | | disease, | Rd | Health and | | | | | esophagitis | [facility] [place] | Healing, | | | | | presence not | [address] | [address] | | | | | specified | Phone: | [place], [place] | | | | | Procedures | [phone] | [address] | | | | | CONSULT TO | Fax: | Phone: | | | | | GI PROCEDURE | [phone] | [phone] | | | | | UNIT: | [...] | | | | 24 HR PH IA | | | | | | | ESOPHAGEAL | | | | | | | MOTILITY | | | | | | | STUDY | | | | | | | W/INTERP AND | | | | | | | REPORT IA | | | | | | | G-ESOPH | | | | | | | REFLX TST | | | | | | | W/ELECTROD | | | +--------+--------+ + + + + Encounter Details +--------+ + + + + | Date | Type | Department | Care Team | Description | +--------+ + + + + | 01/12/ | Hospital | [facility] | Nurse, Gip [address] | | | 2018 | Encounter | [facility] [address] [facility] | | | | | [facility] for | Road [place], [place] | | | | | Health and Healing, | [address] | | | | | [address] | | | | | | [place], [place] | | | | | | [address] | | | | | | [phone] | | | +--------+ + + + [...] [address] | | | | | | [place], [place] | | | | | | [address] | | | | | | [phone] | | | | | | | | +--------+ + + + + | 11/17/ | Video/TeleH | Pain Management | Florencio Lockett, | | | 2019 | ealth-Sched | | PhD [address] | | | | uled | | [place], [place] | | | | | | [address] | | | | | | [phone] | | | | | | | | +--------+ + + + + | 12/01/ | Video/TeleH | Pain Management | Florencio Lockett, | | | 2019 | ealth-Sched | | PhD [address] | | | | uled | | [place], [place] | | | | | | [address] | | | | | | [phone] | | | | | | | | +--------+ + + + + | 01/06/ | Office | Plastic Surgery | Kuldip Harrell MD | | 2019 | Visit | | [address] | | | | | | [place], [place] | | | | | | [address] | | | | | | [phone] | | | | | | | [...] + | MRN: | [facility] | | [id number] Date: 01/12/2018Patient Name: Maria De Jesus Gonzalez #: | ENDOSCOPY | | [id number] of : 1990CSN: [id number] Type: | | | [facility] Room[facility]: Ambulatory | | | esophageal pH [...]
--- OUTSIDE RECORDS SUMMARY | ~2019-11-06 | XMS | Encounter Summary ---
Demographics + + + | Address | [address] | | | [place] [address] | + + + | Home Phone [...] Team Providers + +------+ + | Care Seo Manager Name | Role | Phone | [...] Closed | | Surgery | Diagnoses | Pe[place], | Pe[place], | | | | | Morbid | Kenan Santos MD | Kenan Santos MD | | | | | obesity with | [address] | | | | | BMI of | [address] | Ave | | | | | 50.0-59.9, | [place] | | | | | adult (HCC) | [address] | [address] | | | | | Calculus of | Phone: | Phone: | | | | | gallbladder | | | | | | | with | Fax: | Fax: | | | | | chronic | [phone] | [phone] | | | | | cholecystiti | | | | | | | s without | | | | | | | obstruction | | | | | | | Procedures | | | | | | | REQUEST TO | | | | | | | SURGERY | | | | | | | GROUP UNDERWRITER | | | | | | | [facility] | | | | | | | LAP,CHOLECYS | | | | | | | TECTOMY [facility] | | | | | | [...] | [facility] | | | with BULL RIDER | | | Surg Chh2 | Chh2 [address] | | | | | | [address] | [address] | | | | | | Ave Center | [facility] | | | | | | for Health | Health and | | | | | | and Healing, | Healing, | | | | | | Building 2 | Building 2 | | | | | | [place], | [place], [place] | | | | | | [place] | [address] | | | | | | [address] | Phone: | | | | | | Phone: | | | | | | | | Fax: | | | | | | Fax: | [phone] | | | | | | [phone] | | +--------+ + + + + + Encounter Details +--------+---------+ + + + | Date | Type | Department | Care Team | Description | +--------+---------+ + + + | 08/10/ | Office | Digestive Health | Kenan Norton, | Morbid obesity with | | 2018 | Visit | Center at [facility] [address] | [address] | BMI of 50.0-59.9, | | | | [address] | [place], [place] | adult ([facility]) (Primary | | | | for Health and | [address] | Dx); Diabetes | | | | Healing, Building 2 | | mellitus treated | | | | [place], [place] | | with oral medication | | | | [address] | | ([facility]); | | | | | | Gastroesophageal [...] prescribed screening protocols as defined by the [facility] bariatric program including medic al, psychiatric [...] Doxycycline Rash Percocet [Oxycodone-Acetaminophen] Nausea and Vomiting [place] Oil Hives and Nausea and Vomiting Seroquel [Quetiapine Fumarate] Suicidal Ideation Social [facility] 02/19/2018 (see media): CHEST 2 VIEWS [...] a 4-5% rate of reoperation over the technician terminal and repeater (i.e. years), as well as other late [...] and may approach 5%. We reviewed the [facility] consent form. We discussed that we [...] Forman MD General Surgery, R5 Pager # [phone] documented in this e ncounter Plan of Treatment +--------+ + + + + | Date | Type | Specialty | Care Team | Description | +--------+ + + + + | 11/13/ | Office | Gastroenterology | Cassidy Schneider, | | | 2019 | Visit | | [address] | | | | | | [place], [place] | | | | | | [address] | | | | | | [phone] | | | | | | | | +--------+ + + + + | 11/17/ | Video/TeleH | Pain Management | Florencio Lockett, | | | 2019 | ealth-Sched | | PhD [address] | | | | uled | | [place], [place] | | | | | | [address] | | | | | | [phone] | | | | | | | | +--------+ + + + + | 12/01/ | Video/TeleH | Pain Management | Florencio Lockett, | | | 2019 | ealth-Sched | | PhD [address] | | | | uled | | [place], [place] | | | | | | [address] | | | | | | [phone] | | | | | | | | +--------+ + + + + | 01/06/ | Office | Plastic Surgery | Kuldip Harrell MD | | | 2019 | Visit | | [address] | | | | | | [place], [place] | | | | | | [address] | | | | | | [phone] | | | | | | | [...]
--- OUTSIDE RECORDS SUMMARY | ~2019-11-06 | XMS | Encounter Summary ---
Demographics + + + | Address | [address] | | | [place] [address] | + + + | Home Phone [...] Team Providers + +------+ + | Care Grocery Store Manager Name | Role | [...] | | | Surg Chh2 | Chh2 [address] | | | | | | [address] | [address] | | | | | | Ave Center | [facility] for | | | | | | for Health | Health and | | | | | | and Healing, | Healing, | | | | | | Building 2 | Building 2 | | | | | | [place], | [place], [place] | | | | | | [place] | [address] | | | | | | [address] | Phone: | | | | | | Phone: | [phone] | | | | | | [phone] | Fax: | | | | | | Fax: | [phone] | | | | | | [phone] | | +--------+--------+ + + + + Encounter Details +--------+---------+ + + + | Date | Type | Department | Care Team | Description | +--------+---------+ + + + | 10/02/ | Office | Digestive Health | Indu Pisano, | S/P gastric bypass | | 2019 | Visit | Center at [facility] [address] | [address] [facility] | (Primary Dx); | | | | [address] | [address] | Diabetes mellitus | | | | for Health and | [place], [place] | treated with oral | | | | [facility] 2 | [address] | medication (HCC) | | | | [place], [place] | | | | | | [address] | | | | | | [phone] | | | +--------+---------+ + + + [...] of visit: 1:31 to 2:05 (34 minutes [id number]-[id number] with patient) Surgery: Gastric Bypass and Cholecystectomy [...] multivitamin & mineral (with iron) supplement, 2/day -4638-1121 mg calcium citrate with vitamin D/day (take [...] Indu Pisano RD, LD Clinical Dietitian - [facility] Bariatrics [facility] [place] Email: [email or web address] Pager: [phone] docume nted in this encounter Plan of Treatment +--------+ + + + + | Date | Type | Specialty | Care Team | Description | +--------+ + + + + | 11/13/ | Office | Gastroenterology | Cassidy Schneider, | | | 2019 | Visit | | [address] | | | | | | [place], [place] | | | | | | [address] | | | | | | [phone] | | | | | | | | +--------+ + + + + | 11/17/ | Video/TeleH | Pain Management | Florencio Lockett, | | | 2019 | ealth-Sched | | PhD [address] | | | | uled | | [place], [place] | | | | | | [address] | | | | | | [phone] | | | | | | | | +--------+ + + + + | 12/01/ | Video/TeleH | Pain Management | Florencio Lockett, | | | 2019 | ealth-Sched | | PhD [address] | | | | uled | | [place], [place] | | | | | | [address] | | | | | | [phone] | | | | | | | | +--------+ + + + + | 01/06/ | Office | Plastic Surgery | Kuldip Harrell MD | | | 2020 | Visit | | [address] | | | | | | [place], [place] | | | | | | [address] | | | | | | [phone] | | | | | | | | +--------+ + + + + documented as of this encounter Procedures + +--------+ + + + | Procedure Name | Priori | Date/Time | Associated Diagnosis | Comments | | | ty | | | | + +--------+ + + + | MT MNT RE-ASSESSMNT | Routin | 10/02/2018 | S/P gastric bypass | | | X15MIN | e | 3:46 PM | Diabetes mellitus | | | | | PDT | treated with oral | | | | | | medication ([facility]) | | + +--------+ + + + documented in this encounter Visit Diagnoses + + | Diagnosis | + + | S/P gastric bypass - Primary Bariatric surgery status | + + | Diabetes mellitus treated with oral medication ([facility]) | + + documented in this encounter
--- OUTSIDE RECORDS SUMMARY | ~2019-11-06 | XMS | Encounter Summary ---
Demographics + + + | Address | [address] | | | [place] [address] | + + + | Home Phone [...] [place], | | | | | [place] [address] | | + + + + + Care Team Providers + +------+ + | Care Sporting Goods Sales Associate Name | Role | Phone | + +------+ + | Alisha Stovall | PCP | | | PA-C | | | + +------+ + Encounter Details +--------+ + + + + | Date | Type | Department | Care Team | Description | +--------+ + + + + | 06/20/ | Abstract | [facility] | Fern Love | | | 2019 | | CARDIOLOGY LASHAY Rod, Building Services Coordinator | | | | | [address] | | | | | | [place] | | | | | | [address] | | | | | | [phone] | | | +--------+ + + + [...] [place] | | | | | | [address] | | | | | | [phone] | | | | | | | | +--------+---------+ + + + | 11/25/ | Office | Cardiology | Katheryn Hammonds DO | | | 2020 | Visit | | [address] | | | | | | [place] | | | | | | [address] | | | | | | | | +--------+---------+ + + + documented as of this encounter Visit Diagnoses Not on filedocumented in this encounter"
--- OUTSIDE RECORDS SUMMARY | ~2019-11-06 | XMS | Encounter Summary ---
Demographics + + + | Address | [address] | | | [place] [address] | + + + | Home Phone [...] Team Providers + +------+ + | Care Procurement Buyer Name | Role | Phone | [...] | Pain | Diagnoses | Petcu, | Land Degradation Analyst Psych | | | | Management | Morbid | Aura, ACNP | Chh1 [address] | | | | | obesity | [address] | [address] | | | | | (HCC) | [facility] | [facility] | | | | | Diabetes | Rd | Health and | | | | | mellitus | [facility] [place] | Healing, | | | | | treated with | [address] | Building | | | | | oral | Phone: | 1,15th Floor | | | | | medication | [phone] | [place], [place] | | | | | (HCC) | Fax: | [address] | | | | | Hypertension | [phone] | Phone: | | | | | , | | [phone] | | | | | unspecified | | Fax: | | | | | type | | [phone] | | | | | Asthma, | [...] 02/05/ | Office | Pain Center at [facility] | Florencio Lockett, | Morbid obesity with | | 2017 | Visit | [address] | PhD [address] | BMI of 50.0-59.9, | | | | Center for Health | [place], [place] | adult ([facility]) (Primary | | | | and Healing, | [address] | Dx); Generalized | | | | | [phone] | anxiety disorder; | | | | Floor [place], [place] | | Major depressive | | | | [address] | | disorder, recurrent, | | | | [phone] | | moderate ([facility] [...] De Jesus Anna : 1990 Medical Record: [id number] Age:27 y.o. Weight: 400 lbs BMI: 54 Chief Complaint: Morbid obesity with BMI 50.0-59.9 Date of Service: 02/05/2018 Identifying Information: Maria De Jesus Anna is a 27 y.o. female who lives with her , daughter and step-son in [place], [place]. She was referred for psychological evaluation [...] school. 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 Fo r enjoyment the patient does family [...] basic material needs were met. She graduated [employer] school on time but described limited [...] her consistency with following all of the hoop puncher's recommend ations and she needs to review the material in the Bariatric Surgery Notebook. 4. She is urged to establish a clear routine for physical activity that she can begin now and continue after surgery. 5. She needs to follow-up with me via Method to report on her progress with the above rec ommendations. 6. She is urged to participate in a Bariatric Surgery Support Group. Total time I spent was approximately 50 minutes rsmt-bk-abhd with the patient and approxima tely 1 hour 50 minutes of yce-gnnh-sp-face testing, interpreting and synthesizing results. Florencio Lockett, PhD PAIN CENTER AT [facility] 15TH FLOOR [address] [facility] Mail Code: 15[address] [place] [address] documented in this en counter Plan of Treatment +--------+ + + + + | Date | Type | Specialty | Care Team | Description | +--------+ + + + + | 11/13/ | Office | Gastroenterology | Cassidy Schneider, | | | 2019 | Visit | | [address] | | | | | | [facility] [place] | | | | | | [address] | | | | | | [phone] | | | | | | | | +--------+ + + + + | 11/17/ | Video/TeleH | Pain Management | Florencio Lockett, | | | 2019 | ealth-Sched | | [address] | | | | uled | | [place], [place] | | | | | | [address] | | | | | | [phone] | | | | | | | | +--------+ + + + + | 12/01/ | Video/TeleH | Pain Management | Florencio Lockett, | | | 2019 | ealth-Sched | | PhD [address] | | | | uled | | [place], [place] | | | | | | [address] | | | | | | [phone] | | | | | | | | +--------+ + + + + | 01/06/ | Office | Plastic Surgery | Kuldip Harrell MD | | | 2019 | Visit | | [address] | | | | | | [place], [place] | | | | | | [address] | | | | | | [phone] | | | | | | | [...]
--- OUTSIDE RECORDS SUMMARY | ~2019-11-06 | XMS | Encounter Summary ---
Demographics + + + | Address | [address] | | | [place] [address] | + + + | Home Phone [...] Providers + +------+ + | Care Street Light Repairer Name | Role | Phone | + +------+ + | Alisha Stovall PA-C | PCP | | + +------+ + Encounter Details +--------+ + + + + | Date | Type | Department | Care Team | Description | +--------+ + + + + | 03/29/ | Documentati | Pain Center at [facility] | Florencio Lockett G, | | | 2018 | on | [address] | PhD [address] | | | | | Center for Health | [place], [place] | | | | | and Healing, | [address] | | | | | | [phone] | | | | | Floor [place], [place] | | | | | | [address] | | | | | | [phone] | | | +--------+ + + + [...] [address] | | | | | | [place], [place] | | | | | | [address] | | | | | | [phone] | | | | | | | | +--------+ + + + + | 11/17/ | Video/TeleH | Pain Management | Florencio Lockett, | | | 2019 | ealth-Sched | | PhD [address] | | | | uled | | [place], [place] | | | | | | [address] | | | | | | [phone] | | | | | | | | +--------+ + + + + | 12/01/ | Video/TeleH | Pain Management | Florencio Lockett G, | | | 2019 | ealth-Sched | | PhD [address] | | | | uled | | [place], [place] | | | | | | [address] | | | | | | [phone] | | | | | | | | +--------+ + + + + | 01/06/ | Office | Plastic Surgery | Kuldip Harrell MD | | | 2019 | Visit | | [address] | | | | | | [place], [place] | | | | | | [address] | | | | | | [phone] | | | | | | | | +--------+ + + + + documented as of this encounter Visit Diagnoses Not on filedocumented in this encounter"
--- OUTSIDE RECORDS SUMMARY | ~2019-11-06 | XMS | Encounter Summary ---
Demographics + + + | Address | [address] | | | [place] [address] | + + + | Home Phone [...] Providers + +------+ + | Care Research And Evaluation Analyst Name | Role | Phone | [...] | 2018 | Encounter | Preventive at [facility] | SHANICE Villafuerte [address] | | | | | [address] | [address] [place], | | | | | [facility] | [place] [address] | | | | | and Healing, | [phone] | | | | | Building [address] | | | | | | [place], [place] | | | | | | [address] | | | | | | [phone] | | | +--------+ + + + [...] | | 2019 | Visit | | [address] | | | | | | [place], [place] | | | | | | [address] | | | | | | [phone] | | | | | | | | +--------+ + + + + | 11/17/ | Video/TeleH | Pain Management | Florencio Lockett, | | | 2019 | ealth-Sched | | PhD [address] | | | | uled | | [place], [place] | | | | | | [address] | | | | | | [phone] | | | | | | | | +--------+ + + + + | 12/01/ | Video/TeleH | Pain Management | Florencio Lockett, | | | 2019 | ealth-Sched | | PhD [address] | | | | uled | | [place], [place] | | | | | | [address] | | | | | | [phone] | | | | | | | | +--------+ + + + + | 01/06/ | Office | Plastic Surgery | Kuldip Harrell MD | | | 2019 | Visit | | [address] | | | | | | [place], [place] | | | | | | [address] | | | | | | [phone] | | | | | | | | +--------+ + + + + documented as of this encounter Visit Diagnoses Not on filedocumented in this encounter"
--- OUTSIDE RECORDS SUMMARY | ~2019-11-06 | XMS | Encounter Summary ---
Demographics + + + | Address | [address] | | | [place] [address] | + + + | Home Phone [...] Team Providers + +------+ + | Care Palletiser Operator Name | Role | Phone | [...] [address] | | | | | | [place], [place] | | | | | | [address] | | | | | | [phone] | | | | | | | | +--------+ + + + + | 11/17/ | Video/TeleH | Pain Management | Florencio Lockett, | | | 2019 | ealth-Sched | | PhD [address] | | | | uled | | [place], [place] | | | | | | [address] | | | | | | [phone] | | | | | | | | +--------+ + + + + | 12/01/ | Video/TeleH | Pain Management | Florencio Lockett, | | | 2019 | ealth-Sched | | PhD [address] | | | | uled | | [place], [place] | | | | | | [address] | | | | | | [phone] | | | | | | | | +--------+ + + + + | 01/06/ | Office | Plastic Surgery | Kuldip Harrell MD | | 2019 | Visit | | [address] | | | | | | [place], [place] | | | | | | [address] | | | | | | [phone] | | | | | | | | +--------+ + + + + documented as of this encounter Visit Diagnoses Not on filedocumented in this encounter"
--- OUTSIDE RECORDS SUMMARY | ~2019-11-06 | XMS | Encounter Summary ---
Demographics + + + | Address | [address] | | | [place] [address] | + + + | Home Phone [...] Providers + +------+ + | Care Manager Machine Name | Role | Phone | + +------+ + | Alisha Stovall PA-C | PCP | | + +------+ + Encounter Details +--------+------+ + + + | Date | Type | Department | Care Team | Description | +--------+------+ + + + | 11/10/ | Lab | Laboratory at [facility] | | Morbid obesity | | 2017 | | [address] | | ([facility]); Diabetes | | | | [facility] | | mellitus treated | | | | and Healing, | | with oral medication | | | | [address] | | ([facility]); | | | | [place], [place] | | Hypertension, | | | | [address] | | unspecified type; | | | | [phone] | | Asthma, unspecified | | | [...] [address] | | | | | | [place], [place] | | | | | | [address] | | | | | | [phone] | | | | | | | | +--------+ + + + + | 11/17/ | Video/TeleH | Pain Management | Florencio Lockett, | | | 2019 | ealth-Sched | | PhD [address] | | | | uled | | [place], [place] | | | | | | [address] | | | | | | [phone] | | | | | | | | +--------+ + + + + | 12/01/ | Video/TeleH | Pain Management | Florencio Lockett, | | | 2019 | ealth-Sched | | PhD [address] | | | | uled | | [place], [place] | | | | | | [address] | | | | | | [phone] | | | | | | | | +--------+ + + + + | 01/06/ | Office | Plastic Surgery | Kuldip Harrell MD | | | 2019 | Visit | | [address] | | | | | | [place], [place] | | | | | | [address] | | | | | | [phone] | | | | | | | [...] | | | | | ([facility]) | | | | | [...] | | | | | ([facility]) | | | | | [...] [facility] | [address] | [place] [address] | | | SERVICES, CORE | PARK [...] | + + + + + | [facility] | [address] | [place] [address] | | | SERVICES, ADONAY | SAMMI [...] | + + + + + | [facility] | [address] [facility] | [place] [address] | | | SERVICES, CORE | SAMMI [...] | + + + + + | [facility] | [address] | [place] [address] | | | SERVICES, CORE | SAMMI [...] [facility] | [address] | [place] [address] | | | SERVICES, CORE | PARK [...]
--- OUTSIDE RECORDS SUMMARY | ~2019-11-06 | XMS | Encounter Summary ---
Demographics + + + | Address | [address] | | | [place] [address] | + + + | Home Phone [...] | | 2017 | | [place] [address] [address] | | | | | | [address] [facility] | | | | | | for Health and | | | | | | Healing, [address] | | | | | | [place], [place] | | | | | | [address] | | | | | | [phone] | | | +--------+ + + + [...] | | 2019 | Visit | | [address] | | | | | | [place], [place] | | | | | | [address] | | | | | | [phone] | | | | | | | | +--------+ + + + + | 11/17/ | Video/TeleH | Pain Management | Florencio Lockett, | | | 2019 | ealth-Sched | | PhD [address] | | | | uled | | [place], [place] | | | | | | [address] | | | | | | [phone] | | | | | | | | +--------+ + + + + | 12/01/ | Video/TeleH | Pain Management | Florencio Lockett, | | | 2019 | ealth-Sched | | PhD [address] | | | | uled | | [place], [place] | | | | | | [address] | | | | | | [phone] | | | | | | | | +--------+ + + + + | 01/06/ | Office | Plastic Surgery | Kuldip Harrell MD | | 2019 | Visit | | [address] | | | | | | [place], [place] | | | | | | [address] | | | | | | [phone] | | | | | | | | +--------+ + + + + documented as of this encounter Visit Diagnoses Not on filedocumented in this encounter"
--- OUTSIDE RECORDS SUMMARY | ~2019-11-06 | XMS | Encounter Summary ---
Demographics + + + | Address | [address] | | | [place] [address] | + + + | Home Phone [...] Team Providers + +------+ + | Care Housekeeping Assistant Name | Role | Phone | + +------+ + | Alisha Stovall PA-C | PCP | | + +------+ + Encounter Details +--------+ + + + + | Date | Type | Department | Care Team | Description | +--------+ + + + + | 03/22/ | Abstract | Digestive Health | Clinic, Surgery | | | 2017 | | [place] [address] [address] | | | | | | [address] [facility] | | | | | | for Health and | | | | | | Healing, [address] | | | | | | [place], [place] | | | | | | [address] | | | | | | [phone] | | | +--------+ + + + [...] Ave | | | | | | [place], [place] | | | | | | [address] | | | | | | [phone] | | | | | | | | +--------+ + + + + | 11/17/ | Video/TeleH | Pain Management | Florencio Lockett, | | | 2019 | ealth-Sched | | PhD [address] | | | | uled | | [place], [place] | | | | | | [address] | | | | | | [phone] | | | | | | | | +--------+ + + + + | 12/01/ | Video/TeleH | Pain Management | Florencio Lockett, | | | 2019 | ealth-Sched | | PhD [address] | | | | uled | | [place], [place] | | | | | | [address] | | | | | | [phone] | | | | | | | | +--------+ + + + + | 01/06/ | Office | Plastic Surgery | Kuldip Harrell MD | | | 2020 | Visit | | [address] | | | | | | [place], [place] | | | | | | [address] | | | | | | [phone] | | | | | | | | +--------+ + + + + documented as of this encounter Visit Diagnoses Not on filedocumented in this encounter"
--- OUTSIDE RECORDS SUMMARY | ~2019-11-06 | XMS | Encounter Summary ---
Demographics + + + | Address | [address] | | | [place] [address] | + + + | Home Phone [...] Team Providers + +------+ + | Care Shellfish Meat Separator Operator Name | Role | Phone | + +------+ + | Alisha Stovall PA-C | PCP | | + +------+ + Encounter Details +--------+ + + + + | Date | Type | Department | Care Team | Description | +--------+ + + + + | 10/29/ | Transcribe | [facility] | Transcribe | | | 2019 | Orders | [facility] [address] | Encounter, Provider, | | | | | [address] [place] for | MD [address] | | | | | Health and Healing, | [place] [address] | | | | | [address] | | | | | | [place], [place] | | | | | | [address] | | | | | | [phone] | | | +--------+ + + + [...] Ave | | | | | | [place], [place] | | | | | | [address] | | | | | | [phone] | | | | | | | | +--------+ + + + + | 11/17/ | Video/TeleH | Pain Management | Florencio Lockett, | | | 2019 | ealth-Sched | | PhD [address] | | | | uled | | [place], [place] | | | | | | [address] | | | | | | [phone] | | | | | | | | +--------+ + + + + | 12/01/ | Video/TeleH | Pain Management | Florencio Lockett, | | | 2019 | [facility] | | PhD [address] | | | | uled | | [place], [place] | | | | | | [address] | | | | | | [phone] | | | | | | | | +--------+ + + + + | 01/06/ | Office | Plastic Surgery | Kuldip Harrell MD | | | 2019 | Visit | | [address] | | | | | | [place], [place] | | | | | | [address] | | | | | | [phone] | | | | | | | [...] + | MRN: | PEE | | [id number] Date: 9/19/2019Patient Name: Maria De Jesus Gonzalez #: | ENDOSCOPY | | [id number] of : 1990CSN: [id number] Type: | | | OutpatientRoom: Endo 3Procedure: Upper GI | | | endoscopyIndications: Dysphagia, h/o lap gastric bypass | | | with multiple food | | | intolerances.Providers: LINDSAY SALINAS MD (Doctor), | | | BROOKLYN RAYMOND RN (Nurse), GENECREST | | | CIARA (Pecan Picker)Referring MD: RAFFY DUFF, | | | MDRequesting [...] | | | The Olympus [id number] Gastroscope #[id number] was introduced | | | through the [...] This was | | | traversed. The boqpj-dl-hticpqx limb was characterized by | | | healthy appearing mucosa. The rxyltbkz-ix-kolzple limb was not | | | examined [...]
--- OUTSIDE RECORDS SUMMARY | ~2019-11-06 | XMS | Encounter Summary ---
Demographics + + + | Address | [address] | | | [place] [address] | + + + | Home Phone | | + + + | Preferred Language | Unknown | + + + | Marital Status | | + + + | Pentecostal Affiliation | Unknown | + + + | Race | Unknown | + + + | Ethnic Group | Unknown | + + + Author + + + | Author | [facility] | | | and [place] | + + + | Organization | [facility] | | | [...] [place], | | | | | [place] [address] | | + + + + + Care Team Providers + +------+ + | Care Ranch Hand Livestock Name | Role | Phone | + [...] + + | 09/17/ | Telephone | [facility] | Fern Love | Greg (SCREENED FOR | | 2019 | | CARDIOLOGY LASHAY Rod, Marine Cargo Surveyor | APPT ) | | | | [address] | | | | | | [place], [place] | | | | | | [address] | | | | | | [phone] | | | +--------+ + + + [...] Miscellaneous Notes Telephone Encounter - Fern Love, Marine Cargo Surveyor - 09/18/2019 3:50 PM Kim barfield has [...] in the car during your v isit. [facility] umented in this encounter Plan of Treatment +--------+---------+ + + + | Date | Type | Specialty | Care Team | Description | +--------+---------+ + + + | 11/18/ | Office | Neurology | Shirley Murdock NP | | 2019 | Visit | | [address] | | | | | | [place] | | | | | | [address] | | | | | | [phone] | | | | | | | | +--------+---------+ + + + | 11/25/ | Office | Cardiology | Katheryn Hammonds DO | | | 2019 | Visit | | [address] | | | | | | [place] | | | | | | [address] | | | | | | | | +--------+---------+ + + + documented as of this encounter Visit Diagnoses Not on filedocumented in this encounter"
--- OUTSIDE RECORDS SUMMARY | ~2019-11-06 | XMS | Encounter Summary ---
Demographics + + + | Address | [address] | | | [place] [address] | + + + | Home Phone [...] Team Providers + +------+ + | Care Shipper/Receiver Name | Role | Phone | + [...] Bariatric Nutrition | | 2018 | | [place] [address] [address] | [address] | | | | | [address] [facility] | [address] [place], | | | | | [facility] and | [place] [address] | | | | | [place] [address] | [phone] | | | | | [place], [place] | | | | | | [address] | | | | | | [phone] | | | +--------+ + + + [...] | | 2019 | Visit | | [address] | | | | | | [place], [place] | | | | | | [address] | | | | | | [phone] | | | | | | | | +--------+ + + + + | 11/17/ | Video/TeleH | Pain Management | Florencio Lockett, | | | 2019 | ealth-Sched | | PhD [address] | | | | uled | | [place], [place] | | | | | | [address] | | | | | | [phone] | | | | | | | | +--------+ + + + + | 12/01/ | Video/TeleH | Pain Management | Florencio Lockett, | | | 2019 | ealth-Sched | | PhD [address] | | | | uled | | [place], [place] | | | | | | [address] | | | | | | [phone] | | | | | | | | +--------+ + + + + | 01/06/ | Office | Plastic Surgery | Kuldip Harrell MD | | | 2019 | Visit | | [address] | | | | | | [place], [place] | | | | | | [address] | | | | | | [phone] | | | | | | | | +--------+ + + + + documented as of this encounter Visit Diagnoses Not on filedocumented in this encounter"
--- OUTSIDE RECORDS SUMMARY | ~2019-11-06 | XMS | Encounter Summary ---
Demographics + + + | Address | [address] | | | [place] [address] | + + + | Home Phone [...] Team Providers + +------+ + | Care Second Butler Name | Role | Phone | + [...] + + | 05/30/ | Hospital | [facility] [address] | Kenan Norton, | | | 2019 - | Encounter | [address] | [address] | | | | | [place], [place] | [place], [place] | | | 06/02/ | | [address] | [address] | | | 2019 | | [phone] | [phone] | | | | | | | [...] note might be different from adryan vann. FORMERLY [facility], [facility] RED SURGERY INPATIENT DISCHARGE SUMMARY Author: IVONNE [...] assist with nutrition. She was admitted to [facility] 05/30/2019 for the above list ed procedures. [...] suppository rectally once daily as needed. Remove automatic cigar wrapper tender, insert 1 suppository into rectum and retain [...] Take 40 mg by mouth once daily. FELQ-LMKE-BBQMI (PABA) ORAL Take 1 Dose by mouth [...] 'after hours' URGENT problems please call the [facility] absorber operator at and ask bianca kim the [...] to Prevent Infection", log into y our [employer] account at [email or web address] You can enter U010 in the "Perpetuall Librar y" search box. Not on Pediatric Biosciencehart? Review the Pediatric Bioscience[employer] section of your After Visit Summary for directions on ho w to sign up. Current as of: April 11, 2018 Content Version: [id number] [employer]. Care instructions adapted under license by [facility] [employer] [facility] [employer] [place]. If you have questions about a medical condition or this instr uction, always ask your healthcare professional. [employer] disclaims any denise anty or liability for [...] Outstanding labs/studies: None Lucero Arias MD PhD [facility] General Surgery Red Surgery Pager # [phone] Associated attestation - Aysha Meyer MD - 06/02/2019 3:58 PM PSTI saw and evaluated the patient. I agree with the findings and the plan of care as documented in the resident s note. Aysha Meyer MD [facility] [address] [place] [address] documented in this encounter Discharge Instructions Discharge [...] hours by calling the surgery office at [phone]. - After hours, weekends and holidays, you may call the hospital absorber operator at [phone] an d have the irrigation foreman Red Surgery Team paged.Electronically signed by Lucero [...] ex [facility] g [facility] with nutrition. She was admitted to [facility] 05/30/2019 for the above listed procedures. Sh [...] 'after hours' URGENT problems please call the [facility] absorber operator at and ask bianca kim the "Red Surgery resident on-call". For chest pain, severe symptoms or difficulty breathing please call [phone] or go to your local ER. Do [...] to Prevent Infection", log into y our [employer] account at [email or web address] You can enter U010 in the "DailyCred" search box. Not on [employer]? Review the [facility] [employer] section of your After Visit Summary for directions on leonel w to sign up. Current as of: April 11, 2018 Content Version: [id number] [employer]. Care instructions adapted under license by [facility] [employer] [place]. If you have questions about a medical condition or this instr uction, always ask your healthcare professional. [employer] disclaims any denise anty or liability for [...] through Care Everywhere.Feeding Tube: G eneral Info (Central African)Tube Feeding: Home ([place] African)PEG (Percutaneous Endoscopic Gastrostomy): Post-op ([place])OHSU: Gastrostomy Tube Use and Care ([place] African)Indwelling Urinary Catheter Ca re: General Info ([place] African)documented in this encounter Medications at Time of [...] | | | | | | | ([id number] | | | | | | | [...] Doxycycline Rash Percocet [Oxycodone-Acetaminophen] Nausea and Vomiting Paulding Oil Hives and Nausea and Vomiting Seroquel [...] this note might be different from the [facility] DEPARTMENT OF SURGERY Red Surgery Admission [...] Fill and pull 06/04 in clinic. Follow-up [facility] Dr. Norton in 2 weeks. BP 108/54 [...] olmos teaching complete. Lucero Arias MD PhD [facility] General Surgery Red Surgery Pager #[phone] Associated attestation - Aysha Meyer MD - 06/02/2019 4:21 PM PSTI saw and evaluated the patient. I agree with the findings and the plan of care as documented in the resident s note. Aysha Meyer MD [facility] [address] [place] [address] Kelly Baker MD - 06/01/2019 2:43 PM [...] Doxycycline Rash Percocet [Oxycodone-Acetaminophen] Nausea and Vomiting Paulding Oil Hives and Nausea and Vomiting Seroquel [...] Diazepam Kelly Baker MD Chronic Pain Fellow [facility] Spine center [id number] Associated attestation - Sammi Ayala MD - [...] pain control. Rachel Ward MD MIS Fellow [id number] Lucero Ge MD - 05/31 12:28 PM [...] improved pain control. Lucero Arias MD PhD [facility] General Surgery Red Surgery Pager # [phone] Associated attestation - Kenan Norton MD - 06/02/2019 9:09 PM PSTA resident assisted with documenting this service. I saw the patient and reviewed and verified all information d ocumented by the resident, and made modifications to such information, when appropriate. Kenan Norton MD, MS Chemical Educator [facility] Bariatric Surgery documented in this encounter Plan of Treatment +--------+ + + + + | Date | Type | Specialty | Care Team | Description | +--------+ + + + + | 11/13/ | Office | Gastroenterology | Cassidy Schneider, | | 2019 | Visit | | [address] | | | | | | [place], [place] | | | | | | [address] | | | | | | [phone] | | | | | | | | +--------+ + + + + | 11/17/ | Video/TeleH | Pain Management | Florencio Lockett, | | | 2019 | ealth-Sched | | PhD [address] | | | | uled | | [place], [place] | | | | | | [address] | | | | | | [phone] | | | | | | | | +--------+ + + + + | 12/01/ | Video/TeleH | Pain Management | Florencio Lockett, | | | 2019 | ealth-Sched | | PhD [address] | | | | uled | | [place], [place] | | | | | | [address] | | | | | | [phone] | | | | | | | | +--------+ + + + + | 01/06/ | Office | Plastic Surgery | Kuldip Harrell MD | | 2019 | Visit | | [address] | | | | | | [place], [place] | | | | | | [address] | | | | | | [phone] | | | | | | | [...] DEPT OF | [address] | [place], [place] | | | CARDIOLOGY | [address] | [address] | | + + + + + [...] | + + + + + | [facility] | [address] | [place] [address] | | | SARAH, ADONAY | SAMMI [...] | | | LABORATORY | | | KENYAN | | | SERVICES, | | | [...] | + + + + + | [facility] | [address] | [place] [address] | | | SERVICES, CORE | [address] | | | + + + + + X-RAY PORTABLE ABD TUBE OR CATH EVAL W CONTRAST (06/01/2019 1:25 PM PST) + + | Specimen | + + | | + + + + + | Narrative | Performed At | + + + | EXAM: OK ABD TUBE OR CATH EVAL W CONTRAST. [...] Note | + + | Service Account, Anave[employer] Res In Interface - 06/01/2019 5:14 PM PST EXAM: OK ABD TUBE | | OR CATH EVAL [...] | + + + + + | [facility] | [address] | [place], [place] | | | CARDIOLOGY | [address] | [address] | | + + + + + [...] | | | LABORATORY | | | KENYAN | | | SERVICES, | | | [...] | + + + + + | [facility] | [address] | [place] [address] | | | SERVICES, CORE | [address] [...] FORMAN | [address] | [place], [place] | | | TUSHAR KING OF STACEY | [facility] | [address] | | | TESTS | | | [...] - MARQUAM | [address] | [place], [place] | | | TUSHAR KING OF CARE | [facility] | [address] | | | TESTS | | | [...] FORMAN | [address] | [place], [place] | | | CHRISTINE POINT OF CARE | [address] | [address] | | | TESTS | | | [...] 8:41 | | | | | dose, Homer 06/02/19 at 2045 | | PM PST | | | | + +-------+ +--------+---+---+ +---+---+ | | | +---+---+ + +-------+ +-------+---+---+ | FLUoxetine (PROZAC) capsule 40 | Given | 06/02/19 | 40 mg | | | | mg 40 mg, oral, DAILY, First | | 20 9:13 | | | | | dose on [facility] 05/30/19 at 1715, Until | | [...] | | | | First dose on [facility] 05/30/19 at 2100, | | PM [...] | | | | | NEEDED, Starting [facility] 05/30/19 at | | | | [...] | | | | First dose on [facility] 05/30/19 at 2100, | | PM [...] injection 1 dose, | | | Starting [facility] 05/30/19 at 1128, | | | Until [facility] 05/30/19 at 1136 | | + +---+ [...] AM PST | | | | | [facility] 05/30/19 at 1715, Last dose on | [...] | | | | First dose on [facility] 05/30/19 at 2100, | | PM [...] Auricula | | dose, First dose on [facility] 05/30/19 at | | | | [...] | | | | | reorder) on Homer 06/02/19 at 1015 | | | | [...]
--- OUTSIDE RECORDS SUMMARY | ~2019-11-06 | XMS | Encounter Summary ---
Demographics + + + | Address | [address] | | | [place] [address] | + + + | Home Phone [...] [place], | | | | | [place] [address] | | + + + + + Care Team Providers + +------+ + | Care Photographer'S Model Name | Role | Phone | [...] | | Procedures | [address] | [place], [place] | | | | | Consult | Ave | [address] Phone: | | | | | | [place], | [phone] | | | | | | [place] | Fax: | | | | | | [address] | [phone] | | | | | | Phone: | | | | | | | [phone] | | | | | | | Fax: | | | | | | | [phone] | | + +--------+ + + + + Encounter Details +--------+---------+ + + + | Date | Type | Department | Care Team | Description | +--------+---------+ + + + | 06/20/ | Office | [facility] | Katheryn Hammonds DO | Cardiac arrhythmia, | | 2019 | Visit | CARDIOLOGY AARON | [address] | unspecified cardiac | | | | [address] | [place], [place] | arrhythmia type | | | | [address] | [address] | (Primary Dx); | | | | [place] | | Hypotension, | | | | [address] | | unspecified | | | | [phone] | | hypotension type | +--------+---------+ + [...] Villalpando DO - 06/20/2019 10:00 AM PST [facility] Cardiology Consult Note Reason for Consultation: [...] rafael ing well. She is followed at [facility]. She was getting IV infusions multiple [...] file Gets together: Not on file Attends sabianism service: Not on file Active member of [...] | 2019 | Visit | | [address] [place] [address] | | | | | | [place] | | | | | | [address] | | | | | | [phone] | | | | | | | | +--------+---------+ + + + | 11/25/ | Office | Cardiology | Katheryn Hammonds DO | | 2019 | Visit | | [address] | | | | | | [place] | | | | | | [address] | | | | | | | [...] MD | | | | | | ([id number]) on 06/20/2019 | | | | | [...]
--- OUTSIDE RECORDS SUMMARY | ~2019-11-06 | XMS | Encounter Summary ---
Demographics + + + | Address | [address] | | | [place] [address] | + + + | Home Phone [...] Team Providers + +------+ + | Care Filter Changing Technician Name | Role | Phone | + +------+ + | Alisha Stovall PA-C | PCP | | + +------+ + Encounter Details +--------+ + + + + | Date | Type | Department | Care Team | Description | +--------+ + + + + | 11/16/ | MyChart | Cardiology General | | Referral to | | 2017 | Encounter | at [facility] [address] | | Cardiology | | | | [facility] | | | | | | [facility] Healing, | | | | | | [facility] | | | | | | [place], [place] | | | | | | [address] | | | | | | [phone] | | | +--------+ + + + [...] Ave | | | | | | [place], [place] | | | | | | [address] | | | | | | [phone] | | | | | | | | +--------+ + + + + | 11/17/ | Video/TeleH | Pain Management | Florencio Lockett, | | | 2019 | ealth-Sched | | PhD [address] | | | | uled | | [place], [place] | | | | | | [address] | | | | | | [phone] | | | | | | | | +--------+ + + + + | 12/01/ | Video/TeleH | Pain Management | Florencio Lockett, | | | 2019 | ealth-Sched | | PhD [address] | | | | uled | | [place], [place] | | | | | | [address] | | | | | | [phone] | | | | | | | | +--------+ + + + + | 01/06/ | Office | Plastic Surgery | Kuldip Harrell MD | | | 2020 | Visit | | [address] | | | | | | [place], [place] | | | | | | [address] | | | | | | [phone] | | | | | | | | +--------+ + + + + documented as of this encounter Visit Diagnoses Not on filedocumented in this encounter"
--- OUTSIDE RECORDS SUMMARY | ~2019-11-06 | XMS | Encounter Summary ---
Demographics + + + | Address | [address] | | | [place] [address] | + + + | Home Phone [...] Team Providers + +------+ + | Care Gauge And Weigh Machine Adjuster Name | Role | Phone | + +------+ + | Alisha Stovall PA-C | PCP | | + +------+ + Encounter Details +--------+ + + + + | Date | Type | Department | Care Team | Description | +--------+ + + + + | 06/06/ | Abstract | Digestive Health | Clinic, Surgery | | | 2019 | | [place] [address] [address] | | | | | | [address] [facility] | | | | | | for Health and | | | | | | Healing, [address] | | | | | | [place], [place] | | | | | | [address] | | | | | | [phone] | | | +--------+ + + + [...] | 11/13/ | Office | Gastroenterology | aCssidy Schneider, | | | 2019 | Visit | | MD [address] | | | | | | [place], [place] | | | | | | [address] | | | | | | [phone] | | | | | | | | +--------+ + + + + | 11/17/ | Video/TeleH | Pain Management | Florencio Lockett, | | | 2019 | ealth-Sched | | PhD [address] | | | | uled | | [place], [place] | | | | | | [address] | | | | | | [phone] | | | | | | | | +--------+ + + + + | 12/01/ | Video/TeleH | Pain Management | Florencio Lockett, | | | 2019 | ealth-Sched | | PhD [address] | | | | uled | | [place], [place] | | | | | | [address] | | | | | | [phone] | | | | | | | | +--------+ + + + + | 01/06/ | Office | Plastic Surgery | Kuldip Harrell MD | | | 2020 | Visit | | [address] | | | | | | [place], [place] | | | | | | [address] | | | | | | [phone] | | | | | | | | +--------+ + + + + documented as of this encounter Visit Diagnoses Not on filedocumented in this encounter"
--- OUTSIDE RECORDS SUMMARY | ~2019-11-06 | XMS | Encounter Summary ---
Demographics + + + | Address | [address] | | | [place] [address] | + + + | Home Phone [...] Team Providers + +------+ + | Care Virology Teacher Name | Role | Phone | [...] 11/23/ | Documentati | [facility] at [facility] | Lab, Gi Procedure | Medical Records | | 2018 | on | [address] | | Review | | | | [address] [facility] | | | | | | Health and Healing, | | | | | | [address] | | | | | | [place], [place] | | | | | | [address] | | | | | | [phone] | | | +--------+ + + + [...] [address] | | | | | | [place], [place] | | | | | | [address] | | | | | | [phone] | | | | | | | | +--------+ + + + + | 11/17/ | Video/TeleH | Pain Management | Florencio Lockett, | | | 2019 | ealth-Sched | | PhD [address] | | | | uled | | [place], [place] | | | | | | [address] | | | | | | [phone] | | | | | | | | +--------+ + + + + | 12/01/ | Video/TeleH | Pain Management | Florencio Lockett, | | | 2019 | ealth-Sched | | PhD [address] | | | | uled | | [place], [place] | | | | | | [address] | | | | | | [phone] | | | | | | | | +--------+ + + + + | 01/06/ | Office | Plastic Surgery | Kuldip Harrell MD | | | 2019 | Visit | | [address] | | | | | | [place], [place] | | | | | | [address] | | | | | | [phone] | | | | | | | | +--------+ + + + + documented as of this encounter Visit Diagnoses Not on filedocumented in this encounter"
--- OUTSIDE RECORDS SUMMARY | ~2019-11-06 | XMS | Encounter Summary ---
Demographics + + + | Address | [address] | | | [place] [address] | + + + | Home Phone [...] Providers + +------+ + | Care Electrical Maintenance Man Name | Role | Phone | + [...] Pharmacy | | | | | | [address] | | | | | | [place], [place] | | | | | | [address] | | | | | | [phone] | | | +--------+ + + + [...] [address] | | | | | | [place], [place] | | | | | | [address] | | | | | | [phone] | | | | | | | | +--------+ + + + + | 11/17/ | Video/TeleH | Pain Management | Florencio Lockett, | | | 2019 | ealth-Sched | | PhD [address] | | | | uled | | [place], [place] | | | | | | [address] | | | | | | [phone] | | | | | | | | +--------+ + + + + | 12/01/ | Video/TeleH | Pain Management | Florencio Lockett G, | | | 2019 | ealth-Sched | | PhD [address] | | | | uled | | [facility] [place] | | | | | | [address] | | | | | | [phone] | | | | | | | | +--------+ + + + + | 01/06/ | Office | Plastic Surgery | Kuldip Harrell MD | | | 2019 | Visit | | [address] | | | | | | [place], [place] | | | | | | [address] | | | | | | [phone] | | | | | | | | +--------+ + + + + documented as of this encounter Visit Diagnoses Not on filedocumented in this encounter"
--- OUTSIDE RECORDS SUMMARY | ~2019-11-06 | XMS | Encounter Summary ---
Demographics + + + | Address | [address] | | | [place] [address] | + + + | Home Phone [...] Team Providers + +------+ + | Care Glost Kiln Placer Name | Role | Phone | + [...] | | 2019 | Visit | | [address] | | | | | | [place], [place] | | | | | | [address] | | | | | | [phone] | | | | | | | | +--------+ + + + + | 07/27/ | Video/TeleH | Pain Management | Florencio Lockett, | | | 2019 | ealth-Sched | | PhD [address] | | | | uled | | [place], [place] | | | | | | [address] | | | | | | [phone] | | | | | | | | +--------+ + + + + | 12/01/ | Video/TeleH | Pain Management | Florencio Lockett, | | | 2019 | ealth-Sched | | PhD [address] | | | | uled | | [place], [place] | | | | | | [address] | | | | | | [phone] | | | | | | | | +--------+ + + + + | 01/06/ | Office | Plastic Surgery | Kuldip Harrell MD | | | 2019 | Visit | | [address] | | | | | | [place], [place] | | | | | | [address] | | | | | | [phone] | | | | | | | | +--------+ + + + + documented as of this encounter Visit Diagnoses Not on filedocumented in this encounter"
--- OUTSIDE RECORDS SUMMARY | ~2019-11-06 | XMS | Encounter Summary ---
Demographics + + + | Address | [address] | | | [place] [address] | + + + | Home Phone [...] Providers + +------+ + | Care Animal Control Officer Name | Role | Phone | [...] Pending | | Surgery | Diagnoses | [place], | [place], | | Review | | | S/P gastric | Kenan Santos MD | Kenan Santos MD | | | | | bypass | [address] | | | | | Dehydration | [address] | Ave | | | | | Nausea and | [facility] [place] | [place], [place] | | | | | vomiting, | [address] | [address] | | | | | intractabili | Phone: | Phone: | | | | | ty of | | | | | | | vomiting not | Fax: | Fax: | | | | | specified, | [phone] | [phone] | | | | | unspecified | [...] | | | | | | | GLUE DRIER OPERATOR | | | | | | | NV | | | | | | | LAP,GASTROST | | | | | | | SAIGE,W/O TUBE | | | | | | | CONSTR NV | | | | | | | UPPER GI | | | | | | | ENDOSCOPY,DI | | | | | | | AGNOSIS NV | | | | | | | PLACE PERCUT | | | | | | | GASTROSTOMY | | | | | | | TUBE NV | | | | | | | [...] | [facility] | | | with DIRECTOR EMPLOYMENT | | | Surg Chh2 | Chh2 [...] 2 | | | | | | [place], | [place], [place] | | | | | | [place] | [address] | | | | | | [address] | Phone: | | | | | | Phone: | | | | | | | | Fax: | | | | | | Fax: | [phone] | | | | | | [phone] | | +--------+ + + + + + Encounter Details +--------+---------+ + + + | Date | Type | Department | Care Team | Description | +--------+---------+ + + + | 05/17/ | Office | Digestive Health | Kenan Norton, | S/P gastric bypass | | 2020 | Visit | Center at [facility] [address] | MD [address] | (Primary Dx); | | | | [address] | [place], [place] | Dehydration; Nausea | | | | for Health and | [address] | and vomiting, | | | | Healing, [address] | [phone] | intractability of | | | | [place], [place] | | vomiting not | | | | [address] | | specified, | | | | [phone] | | unspecified vomiting | | | | | | type; Epigastric | | | | | | pain; Morbid obesity | | | | | | ([facility]); | | | | | | Malnutrition, | | | | | | unspecified type | | | | | | ([facility]) | +--------+---------+ + + + Social [...] Laparoscopic andreia-en-y gastric bypass with cholecystectomy 09/24/[address] [facility] [address]. Norton PHYSICAL EXAMINATION: [...] [place] | | | | | | [address] | | | | | | [phone] | | | | | | | | +--------+ + + + + | 11/17/ | Video/TeleH | Pain Management | Florencio Lockett, | | | 2019 | ealth-Sched | | PhD [address] | | | | uled | | [place], [place] | | | | | | [address] | | | | | | [phone] | | | | | | | | +--------+ + + + + | 12/01/ | Video/TeleH | Pain Management | Florencio Lockett, | | | 2019 | ealth-Sched | | PhD [address] | | | | uled | | [place], [place] | | | | | | [address] | | | | | | [phone] | | | | | | | | +--------+ + + + + | 01/06/ | Office | Plastic Surgery | Kuldip Harrell MD | | | 2020 | Visit | | [address] | | | | | | [place], [place] | | | | | | [address] | | | | | | [phone] | | | | | | | [...]
--- OUTSIDE RECORDS SUMMARY | ~2019-11-06 | XMS | Encounter Summary ---
Demographics + + + | Address | [address] | | | [place] [address] | + + + | Home Phone | | + + + | Preferred Language | Unknown | + + + | Marital Status | | + + + | Alevism Affiliation | Unknown | + + + | Race | Unknown | + + + | Ethnic Group | Unknown | + + + Author + + + | Author | [facility] | | | and [place] | + + + | Organization | [facility] | | | [...] [place], | | | | | [place] [address] | | + + + + + Care Team Providers + +------+ + | Care Global Coordinator Name | Role | Phone | [...] | | HOSPITAL NEUROLOGY | [address] [facility] | | | | | CLIN[address] | [place] | | | | | [address] [place], | [address] | | | | | [place] [address] | [phone] | | | | | [phone] | | | +--------+ + + + [...] carvajal and a shot was ordered at [facility] in [place]. They havent gotten the RxElectronically si gned by Taiwo Coombs at 08/28/2019 11:08 AM PDTdocumented in this encounter Plan of Treatment +--------+---------+ + + + | Date | Type | Specialty | Care Team | Description | +--------+---------+ + + + | 11/18/ | Office | Neurology | Shirley Murdock NP | | | 2019 | Visit | | [address] | | | | | | [place] | | | | | | [address] | | | | | | [phone] | | | | | | | | +--------+---------+ + + + | 08/04/ | Office | Cardiology | Katheryn Hammonds DO | | | 2019 | Visit | | [address] | | | | | | [place] | | | | | | [address] | | | | | | | | +--------+---------+ + + + documented as of this encounter Visit Diagnoses Not on filedocumented in this encounter"
--- OUTSIDE RECORDS SUMMARY | ~2019-11-06 | XMS | Encounter Summary ---
Demographics + + + | Address | [address] | | | [place] [address] | + + + | Home Phone [...] Team Providers + +------+ + | Care Chemical Preparer Name | Role | Phone | + [...] [address] | | | | | | [place], [place] | | | | | | [address] | | | | | | [phone] | | | | | | | | +--------+ + + + + | 11/17/ | Video/TeleH | Pain Management | Florencio Lockett, | | | 2019 | ealth-Sched | | PhD [address] | | | | uled | | [place], [place] | | | | | | [address] | | | | | | [phone] | | | | | | | | +--------+ + + + + | 12/01/ | Video/TeleH | Pain Management | Florencio Lockett, | | | 2019 | ealth-Sched | | PhD [address] | | | | uled | | [place], [place] | | | | | | [address] | | | | | | [phone] | | | | | | | | +--------+ + + + + | 01/06/ | Office | Plastic Surgery | Kuldip Harrell MD | | 2019 | Visit | | [address] | | | | | | [place], [place] | | | | | | [address] | | | | | | [phone] | | | | | | | | +--------+ + + + + documented as of this encounter Visit Diagnoses Not on filedocumented in this encounter"
--- OUTSIDE RECORDS SUMMARY | ~2019-11-06 | XMS | Encounter Summary ---
Demographics + + + | Address | [address] | | | [place] [address] | + + + | Home Phone [...] Providers + +------+ + | Care Health Counselor Name | Role | Phone | [...] Pharmacy | | | | | | [address] | | | | | | [address] [place], [place] | | | | | | [address] | | | | | | [phone] | | | +--------+ + + + [...] [address] | | | | | | [place], [place] | | | | | | [address] | | | | | | [phone] | | | | | | | | +--------+ + + + + | 11/17/ | Video/TeleH | Pain Management | Florencio Lockett, | | | 2019 | ealth-Sched | | PhD [address] | | | | uled | | [place], [place] | | | | | | [address] | | | | | | [phone] | | | | | | | | +--------+ + + + + | 12/01/ | Video/TeleH | Pain Management | Florencio Lockett G, | | | 2019 | ealth-Sched | | PhD [address] | | | | uled | | [facility] [place] | | | | | | [address] | | | | | | [phone] | | | | | | | | +--------+ + + + + | 01/06/ | Office | Plastic Surgery | Kuldip Harrell MD | | | 2019 | Visit | | [address] | | | | | | [place], [place] | | | | | | [address] | | | | | | [phone] | | | | | | | | +--------+ + + + + documented as of this encounter Visit Diagnoses Not on filedocumented in this encounter"
--- OUTSIDE RECORDS SUMMARY | ~2019-11-06 | XMS | Encounter Summary ---
Demographics + + + | Address | [address] | | | [place] [address] | + + + | Home Phone [...] Team Providers + +------+ + | Care Tester/Lift Trucker Name | Role | Phone | + [...] Records | | 2020 | | Center [place] [address] | | Review | | | | [address] [facility] | | | | | | for Health and | | | | | | Healing, [address] | | | | | | [place], [place] | | | | | | [address] | | | | | | [phone] | | | +--------+ + + + [...] | | 2020 | Visit | | [address] | | | | | | [place], [place] | | | | | | [address] | | | | | | [phone] | | | | | | | | +--------+ + + + + | 11/17/ | Video/TeleH | Pain Management | Florencio Lockett, | | | 2019 | ealth-Sched | | PhD [address] | | | | uled | | [place], [place] | | | | | | [address] | | | | | | [phone] | | | | | | | | +--------+ + + + + | 12/01/ | Video/TeleH | Pain Management | Florencio Lockett, | | | 2019 | ealth-Sched | | PhD [address] | | | | uled | | [place], [place] | | | | | | [address] | | | | | | [phone] | | | | | | | | +--------+ + + + + | 01/06/ | Office | Plastic Surgery | Kuldip Harrell MD | | | 2019 | Visit | | [address] | | | | | | [place], [place] | | | | | | [address] | | | | | | [phone] | | | | | | | | +--------+ + + + + documented as of this encounter Visit Diagnoses Not on filedocumented in this encounter"
--- OUTSIDE RECORDS SUMMARY | ~2019-11-06 | XMS | Encounter Summary ---
Demographics + + + | Address | [address] | | | [place] [address] | + + + | Home Phone | | + + + | Preferred Language | Unknown | + + + | Marital Status | | + + + | Congregational Affiliation | Unknown | + + + | Race | Unknown | + + + | Ethnic Group | Unknown | + + + Author + + + | Author | [facility] | | | and [place] | + + + | Organization | [facility] | | [...] [place], | | | | | [place] [address] | | + + + + + Care Team Providers + +------+ + | Care Property Portfolio Officer Name | Role | Phone | + +------+ + | Alisha Stovall | PCP | | | PA-C | | | + +------+ + Encounter Details +--------+ + + + + | Date | Type | Department | Care Team | Description | +--------+ + + + + | 06/20/ | Abstract | [facility] | Fern Love | | | 2019 | | CARDIOLOGY LASHAY Rod, Student Affairs Vice President | | | | | [address] | | | | | | [place] | | | | | | [address] | | | | | | [phone] | | | +--------+ + + + [...] [place] | | | | | | [address] | | | | | | [phone] | | | | | | | | +--------+---------+ + + + | 11/25/ | Office | Cardiology | Katheryn Hammonds DO | | | 2020 | Visit | | [address] | | | | | | [place] | | | | | | [address] | | | | | | | | +--------+---------+ + + + documented as of this encounter Visit Diagnoses Not on filedocumented in this encounter"
--- OUTSIDE RECORDS SUMMARY | ~2019-11-06 | XMS | Encounter Summary ---
Demographics + + + | Address | [address] | | | [place] [address] | + + + | Home Phone [...] Team Providers + +------+ + | Care Soap Slabber Name | Role | Phone | + [...] | | [address] | [place], [place] | | | | | for Health and | [address] | | | | | Healing, [address] | | | | | | [place], [place] | | | | | | [address] | | | | | | | [...] | | 2020 | Visit | | [address] | | | | | | [place], [place] | | | | | | [address] | | | | | | [phone] | | | | | | | | +--------+ + + + + | 07/27/ | Video/TeleH | Pain Management | Florencio Lockett, | | | 2019 | ealth-Sched | | PhD [address] | | | | uled | | [place], [place] | | | | | | [address] | | | | | | [phone] | | | | | | | | +--------+ + + + + | 12/01/ | Video/TeleH | Pain Management | Florencio Lockett, | | | 2019 | ealth-Sched | | PhD [address] | | | | uled | | [place], [place] | | | | | | [address] | | | | | | [phone] | | | | | | | | +--------+ + + + + | 01/06/ | Office | Plastic Surgery | Kuldip Harrell MD | | | 2019 | Visit | | [address] | | | | | | [place], [place] | | | | | | [address] | | | | | | [phone] | | | | | | | | +--------+ + + + + documented as of this encounter Visit Diagnoses Not on filedocumented in this encounter"
--- OUTSIDE RECORDS SUMMARY | ~2019-11-06 | XMS | Encounter Summary ---
Demographics + + + | Address | [address] | | | [place] [address] | + + + | Home Phone [...] Providers + +------+ + | Care Fur Blower Name | Role | Phone | + +------+ + | Alisha Stovall PA-C | PCP | | + +------+ + Encounter Details +--------+ + + + + | Date | Type | Department | Care Team | Description | +--------+ + + + + | 08/14/ | Abstract | Digestive Health | Clinic, Surgery | | | 2017 | | [place] [address] [address] | | | | | | [address] [facility] | | | | | | for Health and | | | | | | Healing, [address] | | | | | | [place], [place] | | | | | | [address] | | | | | | [phone] | | | +--------+ + + + [...] | | 2019 | Visit | | [address] | | | | | | [place], [place] | | | | | | [address] | | | | | | [phone] | | | | | | | | +--------+ + + + + | 11/17/ | Video/TeleH | Pain Management | Florencio Lockett, | | | 2019 | ealth-Sched | | PhD [address] | | | | uled | | [place], [place] | | | | | | [address] | | | | | | [phone] | | | | | | | | +--------+ + + + + | 12/01/ | Video/TeleH | Pain Management | Florencio Lockett, | | | 2019 | ealth-Sched | | PhD [address] | | | | uled | | [place], [place] | | | | | | [address] | | | | | | [phone] | | | | | | | | +--------+ + + + + | 01/06/ | Office | Plastic Surgery | Kuldip Harrell MD | | 2019 | Visit | | [address] | | | | | | [place], [place] | | | | | | [address] | | | | | | [phone] | | | | | | | | +--------+ + + + + documented as of this encounter Visit Diagnoses Not on filedocumented in this encounter"
--- OUTSIDE RECORDS SUMMARY | ~2019-11-06 | XMS | Encounter Summary ---
Demographics + + + | Address | [address] | | | [place] [address] | + + + | Home Phone [...] Team Providers + +------+ + | Care Crochet Beader Name | Role | Phone | + [...] | | | | CONSULT TO | [place], [place] | [place], [place] | | | | | PAIN | [address] | [address] | | | | | MANAGEMENT | Phone: | Phone: | | | | | [place] | [phone] | [phone] | | | | | BIOFEEDBACK | Fax: | Fax: | | | | | [place] | [phone] | [phone] | | | | | MODALITY | | | + +---------+ + + + + Encounter Details +--------+ + + + + | Date | Type | Department | Care Team | Description | +--------+ + + + + | 05/15/ | Theatrical Performer | Digestive Health | Kenan Norton, | S/P gastric bypass | | 2020 | | Center at [facility] [address] | MD [address] | (Primary Dx) | | | | [address] | [facility] [place] | | | | | for Health and | [address] | | | | | Healing, [address] | [phone] | | | | | [place], [place] | | | | | | [address] | | | | | | [phone] | | | +--------+ + + + [...] [address] | | | | | | [place], [place] | | | | | | [address] | | | | | | [phone] | | | | | | | | +--------+ + + + + | 11/17/ | Video/TeleH | Pain Management | Florencio Lockett, | | | 2019 | ealth-Sched | | PhD [address] | | | | uled | | [place], [place] | | | | | | [address] | | | | | | [phone] | | | | | | | | +--------+ + + + + | 12/01/ | Video/TeleH | Pain Management | Florencio Lockett, | | | 2019 | ealth-Sched | | PhD [address] | | | | uled | | [place], [place] | | | | | | [address] | | | | | | [phone] | | | | | | | | +--------+ + + + + | 01/06/ | Office | Plastic Surgery | Kuldip Harrell MD | | | 2019 | Visit | | [address] | | | | | | [place], [place] | | | | | | [address] | | | | | | [phone] | | | | | | | | +--------+ + + + + documented as of this encounter Visit Diagnoses + + | Diagnosis | + + | S/P gastric bypass - Primary Bariatric surgery status | + + documented in this encounter"
--- OUTSIDE RECORDS SUMMARY | ~2019-11-06 | XMS | Encounter Summary ---
Demographics + + + | Address | [address] | | | [place] [address] | + + + | Home Phone [...] Team Providers + +------+ + | Care Spine Specialist Name | Role | Phone | + +------+ + | Alisha Stovall PA-C | PCP | | + +------+ + Encounter Details +--------+ + + + + | Date | Type | Department | Care Team | Description | +--------+ + + + + | 06/20/ | Group Underwriter | Digestive Health | Kenan Norton, | Preop testing | | 2019 | | Center at [facility] [address] | MD [address] | (Primary Dx) | | | | [address] | [place], [place] | | | | | for Health and | [address] | | | | | Healing, [address] | [phone] | | | | | [place], [place] | | | | | | [address] | | | | | | [phone] | | | +--------+ + + + [...] [address] | | | | | | [place], [place] | | | | | | [address] | | | | | | [phone] | | | | | | | | +--------+ + + + + | 11/17/ | Video/TeleH | Pain Management | Florencio Lockett, | | | 2019 | ealth-Sched | | PhD [address] | | | | uled | | [place], [place] | | | | | | [address] | | | | | | [phone] | | | | | | | | +--------+ + + + + | 12/01/ | Video/TeleH | Pain Management | Florencio Lockett G, | | | 2019 | ealth-Sched | | PhD [address] | | | | uled | | [place], [place] | | | | | | [address] | | | | | | [phone] | | | | | | | | +--------+ + + + + | 01/06/ | Office | Plastic Surgery | Kuldip Harrell MD | | | 2019 | Visit | | [address] | | | | | | [place], [place] | | | | | | [address] | | | | | | [phone] | | | | | | | [...] | + + + + + | [facility] | [address] | [place] [address] | | | SERVICES, CORE | PARK [...] | | | | | determined by [facility] | | | | | | Laboratories. See | | | | | | Compliance Statement B: | | | | | | [email or web address] | | | | | | by [facility],[address] | | | | [address], [place] | | | | | | [address] | | | | | | [email or web address]. | | | | | | Josué [...] [facility] | [address] | [place], [place] | | | [address] | | [address] | | + + + + + documented in this encounter Visit Diagnoses + + | Diagnosis | + + | Preop testing - Primary Preoperative examination, unspecified | + + documented in this encounter"
--- OUTSIDE RECORDS SUMMARY | ~2019-11-06 | XMS | Encounter Summary ---
Demographics + + + | Address | [address] | | | [place] [address] | + + + | Home Phone [...] Team Providers + +------+ + | Care Email Developer Name | Role | Phone | [...] Records | | 2019 | | Center [place] [address] | | Review | | | | [address] [facility] | | | | | | for Health and | | | | | | Healing, [address] | | | | | | [place], [place] | | | | | | [address] | | | | | | [phone] | | | +--------+ + + + [...] | | 2020 | Visit | | [address] | | | | | | [place], [place] | | | | | | [address] | | | | | | [phone] | | | | | | | | +--------+ + + + + | 11/17/ | Video/TeleH | Pain Management | Florencio Lockett, | | | 2019 | ealth-Sched | | PhD [address] | | | | uled | | [place], [place] | | | | | | [address] | | | | | | [phone] | | | | | | | | +--------+ + + + + | 12/01/ | Video/TeleH | Pain Management | Florencio Lockett, | | | 2019 | ealth-Sched | | PhD [address] | | | | uled | | [place], [place] | | | | | | [address] | | | | | | [phone] | | | | | | | | +--------+ + + + + | 01/06/ | Office | Plastic Surgery | Kuldip Harrell MD | | | 2019 | Visit | | [address] | | | | | | [place], [place] | | | | | | [address] | | | | | | [phone] | | | | | | | | +--------+ + + + + documented as of this encounter Visit Diagnoses Not on filedocumented in this encounter"
--- OUTSIDE RECORDS SUMMARY | ~2019-11-06 | XMS | Clinical Summary ---
Demographics + + + | Address | [address] | | | [place] [address] | + + + | Home Phone [...] [place], | | | | | [place] [address] | | + + + + + Care Team Providers + +------+ + | Care Manager Star Name | Role | Phone | + [...] for Aimovig 70 mg/ml SC approved from [facility] from 08/28/19 to 11/28/19./Niru, | | [...] | | 2019 | | | D, Hanging Flags Decorator | APPT ) | +--------+ + + [...] 2019 | Visit | | [address] [facility] | | | | | | [place] | | | | | | [address] | | | | | | [phone] | | | | | | | | +--------+---------+ + + + | 11/25/ | Office | Cardiology | Katheryn Hammonds DO | | | 2019 | Visit | | [address] | | | | | | [place] | | | | | | [phone] | | | | | | | [...] +--------+ +--------+ +---------+--------+ | | [facility] | [id number] | | [phone] | | Indemn | | | A | | 020-Pr | 7 | | ity | | | | | esent | | | | + +--------+ +--------+ +---------+--------+ | [employer] | MODA | [id number] | | [phone] | | Medica | | MEDICAID HMO | HEALTH | | 018-Pr | 1 | | id | | | MDCD | | esent | | | | | | [place]MO [place] | | | | | | + +--------+ +--------+ +---------+--------+ | [employer] | MODA | [id number] | 04/26/19 | [phone] | | Medica | | MEDICAID HMO | HEALTH | | 19-Pre | 1 | | id | | | MDCD | | sent | | | | | | [place]MO [place] | | | | | | + +--------+ +--------+ +---------+--------+ | [employer] | MODA | [id number] | 01/31/ | [phone] | | Medica | | MEDICAID HMO [...] | | al/Steven | | 1990 | [phone] | [place] | | | [place] | | | 9 (Home) | [address] | + +--------+ +--------+ + + | Maria De Jesus Hernández | Person | Self | [birth year] | [address] | | | al/Fam | | 1990 | [phone] | [place], [place] | | | [place] | | | 9 (Home) | [address] | + +--------+ +--------+ + + | Maria De Jesus Hernández | Person | Self | [birth year] | | [address] | | | al/Fam | | 1990 | [phone] | [place], [place] | | | [place] | | | 9 (Home) | [address] | + +--------+ +--------+ + + Advance Directives + + + + + | Type | Date Recorded | Patient | Explanation | | | | Food Or Baggage Handling Rampman | | + + + + + | Power of | | | | | Air Drier Machine Operator | | | | + + + + + | Advance | 09/01/2017 4:53 | | | | Directive | PM | | | + + + + +
[~2019-11-06 02:39] MED LIST changes: +GEODON20 MG PO; +XANAX1 MG PO
--- OUTSIDE RECORDS SUMMARY | 2019-11-06 02:42 | XMS ---
PreManage Notification: GAVI ALVA Security Motor Vehicle Compliance Analyst Events No recent Security Events currently on file CRITERIA MET - 6 ED Visits in 6 Months - [facility] - [facility] Guidelines - PDMP CARE PROVIDERS BHAVIN MCDANIEL Physician Activities Director 06/04/2018-Current PHONE: [phone] LAKIA AGRAWAL Nurse Practitioner: Acute Care 06/17/2019-Current PHONE: [phone] Guidelines Source: [facility] Guidelines Date: 09/24/2018 Care Coordination: Mental health services are being provided by [facility].\T\nbsp; Please contact [facility] with mental health concerns.\T\nbsp; Aaron/Stewart Dominguez: \T\nbsp; Reece: [phone]. E.D. VISIT COUNT (12 MO.) 6 [facility] TOTAL 6 NOTE: Visits indicate total known visits. ED/UCC VISIT TRACKING (12 MO.) 11/06/2019 02:39 [facility] [place] TYPE: Emergency COMPLAINT: - HEADACHE 08/09/2019 23:14 [facility] [place] TYPE: Emergency COMPLAINT: - FEEDING TUBE PROBLEM DIAGNOSES: - Anxiety disorder, unspecified - Allergy status to narcotic agent status - Gastro-esophageal reflux disease without esophagitis - Migraine, unspecified, not intractable, without status migrai - Unspecified abdominal pain - Other complications of gastrostomy - Unspecified asthma, uncomplicated - Allergy status to other antibiotic agents status - Other [facility] (current) drug therapy - Major depressive disorder, single episode, unspecified 06/16/2019 14:33 [facility] [place] TYPE: Emergency COMPLAINT: - ANXIETY DIAGNOSES: - Unspecified asthma, uncomplicated - Allergy status to other antibiotic agents status - Allergy status to narcotic agent status - Other [facility] (current) drug therapy - Migraine, unspecified, not intractable, without status migrai - Allergy status to other drugs, medicaments and biological sub - Hyperventilation - Major depressive disorder, single episode, unspecified - Gastro-esophageal reflux disease without esophagitis - Anxiety disorder, unspecified - Chest pain, unspecified 06/09/2019 21:09 [facility] [place] TYPE: Emergency COMPLAINT: - ABD PAIN/FEEDING TUBE PROBLEM DIAGNOSES: - group home (current) use of opiate analgesic - Allergy [...] not intractable, without status migrai - Other superintendent container terminal (current) drug therapy - Anxiety disorder, unspecified 06/06/2019 20:52 [facility] [place] TYPE: Emergency COMPLAINT: - POST OP PROBLEM DIAGNOSES: - Gastro-esophageal reflux disease without esophagitis - Migraine, unspecified, not intractable, without status migrai - Encounter for change or removal of surgical wound dressing - Other [facility] (current) drug therapy - Encounter for change or removal of surgical wound dressing - Anxiety disorder, unspecified - Unspecified asthma, uncomplicated - Major depressive disorder, single episode, unspecified 06/03/2019 19:42 [facility] [place] TYPE: Emergency COMPLAINT: - POST OP ISSUE DIAGNOSES: - Other superintendent container terminal (current) drug therapy - Anxiety disorder, unspecified [...] unspecified - Gastro-esophageal reflux disease without esophagitis INPATIENT VISIT TRACKING (12 MO.) No inpatient visits to display in this time frame [email or web address]
[2019-11-06] MEDS ORDERED: DILAUDID1 MG/ML PO (02:53)
== END 2019-11-06 04:19 | disposition home or self-care (01) ==
LOC: ED 02:39
DX: R51 Headache (principal); J45.909 Unspecified asthma, uncomplicated; K21.9 Gastro-esophageal reflux disease without esophagitis; F41.9 Anxiety disorder, unspecified; F32.9 Major depressive disorder, single episode, unspecified; Z88.1 Allergy status to other antibiotic agents; Z88.6 Allergy status to analgesic agent; Z88.8 Allergy status to other drugs, medicaments and biological substances; Z88.5 Allergy status to narcotic agent; Z79.899 Other long term (current) drug therapy
CPT/HCPCS: 96361; 96374; 96375; 99283-25; J1200; J2765; J7030

== ENCOUNTER 2019-11-09 15:30 | Emergency (ER) | payer OTHER ==
[~2019-11-09] VITALS: Ht 180.3 cm; Wt 104.3 kg
[~2019-11-09 15:30] MED LIST changes: +DILAUDID1 MG/ML PO
--- OUTSIDE RECORDS SUMMARY | 2019-11-09 15:32 | XMS ---
PreManage Notification: GAVI ALVA Security Coordinator Of Evaluation Events No recent Security Events currently on file CRITERIA MET - 6 ED Visits in 6 Months - [facility] - Has Care Guidelines - PDMP - [facility] - 2 Visits in 30 Days CARE PROVIDERS BHAVIN MCDANIEL Physician Regional Manager 06/04/2018-Current PHONE: [phone] LAKIA AGRAWAL Nurse Practitioner: Acute Care 06/17/2019-Current PHONE: [phone] Guidelines Source: [email or web address] Guidelines Date: 09/24/2018 Care Coordination: Mental health services are being provided by [email or web address].\T\nbsp; Please contact [facility] with mental health concerns.\T\nbsp; [place] Dominguez: \T\nbsp; Reece: [phone]. E.D. VISIT COUNT (12 MO.) 7 MARCEL Gomez TOTAL 7 NOTE: Visits indicate total known visits. ED/UCC VISIT TRACKING (12 MO.) 11/09/2019 15:30 [facility] TYPE: Emergency COMPLAINT: - FEVER, CHILLS, HEADACHE 11/06/2019 02:39 [facility] TYPE: Emergency COMPLAINT: - HEADACHE DIAGNOSES: - Allergy status to narcotic agent status - Allergy status to other antibiotic agents status - Other fdc (current) drug therapy - Gastro-esophageal reflux disease without esophagitis - Headache - Allergy status to analgesic agent status - Major depressive disorder, single episode, unspecified - Anxiety disorder, unspecified - Unspecified asthma, uncomplicated - Allergy status to other drugs, medicaments and biological sub 08/09/2019 23:14 [facility] TYPE: Emergency COMPLAINT: - FEEDING TUBE PROBLEM DIAGNOSES: - Anxiety disorder, unspecified - Allergy status to narcotic agent status - Gastro-esophageal reflux disease without esophagitis - Migraine, unspecified, not intractable, without status migrai - Unspecified abdominal pain - Other complications of gastrostomy - Unspecified asthma, uncomplicated - Allergy status to other antibiotic agents status - Other fdc (current) drug therapy - Major depressive disorder, single episode, unspecified 06/16/2019 14:33 [facility] TYPE: Emergency COMPLAINT: - ANXIETY DIAGNOSES: - Unspecified asthma, uncomplicated - Allergy status to other antibiotic agents status - Allergy status to narcotic agent status - Other fdc (current) drug therapy - Migraine, unspecified, not intractable, without status migrai - Allergy status to other drugs, medicaments and biological sub - Hyperventilation - Major depressive disorder, single episode, unspecified - Gastro-esophageal reflux disease without esophagitis - Anxiety disorder, unspecified - Chest pain, unspecified 06/09/2019 21:09 [facility] TYPE: Emergency COMPLAINT: - ABD PAIN/FEEDING TUBE PROBLEM DIAGNOSES: - nursing home (current) use of opiate analgesic - [...] not intractable, without status migrai - Other fdc (current) drug therapy - Anxiety disorder, unspecified 06/06/2019 20:52 [facility] TYPE: Emergency COMPLAINT: - POST OP PROBLEM DIAGNOSES: - Gastro-esophageal reflux disease without esophagitis - Migraine, unspecified, not intractable, without status migrai - Encounter for change or removal of surgical wound dressing - Other fdc (current) drug therapy - Encounter for change or removal of surgical wound dressing - Anxiety disorder, unspecified - Unspecified asthma, uncomplicated - Major depressive disorder, single episode, unspecified 06/03/2019 19:42 [facility] TYPE: Emergency COMPLAINT: - POST OP ISSUE DIAGNOSES: - Other fdc (current) drug therapy - Anxiety disorder, unspecified [...] visits to display in this time frame [email or web address]
[2019-11-09] MEDS ORDERED: AUGMENTIN 875-1 EACH PO (17:37)
[2019-11-09] MEDS ORDERED: ZITHROMAX250 MG PO (17:37)
--- NOTE | 2019-11-10 12:07 | EKG ---
[facility] [address] [place], [place] [address] Signed Normal sinus rhythm Inferior infarct , age undetermined Abnormal ECG No previous ECGs available Confirmed by JAHAIRA GR DO ([id number]) on 11/10/2019 12:07:05 PM Electronically Signed By: JAHAIRA GR DO 11/10/19 1207 PATIENT NAME: GAVI ALVA Electrocardiogram DATE OF : 86 PHYSICIAN: JAHAIRA GR DO REPORT #: [id number] REPORT IS CONFIDENTIAL AND NOT TO BE RELEASED WITHOUT AUTHORIZATION
== END 2019-11-09 17:50 | disposition home or self-care (01) ==
LOC: ED 15:30
DX: J18.9 Pneumonia, unspecified organism (principal); Z20.828 Contact with and (suspected) exposure to other viral communicable diseases; J45.909 Unspecified asthma, uncomplicated; K21.9 Gastro-esophageal reflux disease without esophagitis; G43.909 Migraine, unspecified, not intractable, without status migrainosus; F41.9 Anxiety disorder, unspecified; F32.9 Major depressive disorder, single episode, unspecified; Z88.8 Allergy status to other drugs, medicaments and biological substances; Z88.6 Allergy status to analgesic agent; Z79.899 Other long term (current) drug therapy
CPT/HCPCS: 71046; 80053; 81001; 83605; 85025; 93005; 93010; 96374; 99285-25; C9803; J0696; J7030

== ENCOUNTER 2019-11-17 17:51 | Emergency (ER) | payer OTHER ==
[~2019-11-17] VITALS: Ht 180.3 cm; Wt 104.3 kg
--- OUTSIDE RECORDS SUMMARY | ~2019-11-17 | XMS | Encounter Summary ---
Demographics + + + | Address | [address] | | | [place] [address] | + + + | Home Phone | | + + + | Preferred Language | Unknown | + + + | Marital Status | | + + + | Muslim Affiliation | NRP | + + + | Race | White | + + + | Ethnic Group | Not or | + + + Author + + + | Author | [facility] | + + + | Organization | [facility] | + + + | Address | Unknown | + + + | Phone | Unavailable | + + + Support + + +---------+ + | Name | Relationship | Address | Phone | + + +---------+ + | Jeovanny Hernández | ECON | Unknown | | + + +---------+ + Care Team Providers + +------+ + | Care Enthone Solder Stripper Name | Role | Phone | + +------+ + | Alisha Stovall PA-C | PCP | | + +------+ + Reason for Visit AUTH/CERT +--------+--------+ + + + + | Status | Reason | Specialty | Diagnoses / | Referred By | Referred To | | | | | Procedures | Contact | Contact | +--------+--------+ + + + + | | | | Procedures | | | | | | | MT | | | | | | | ESOPHAGEAL | | | | | | | MOTILITY | | | | | | | STUDY | | | | | | | W/INTERP AND | | | | | | | REPORT MT | | | | | | | G-ESOPH | | | | | | | REFLX TST | | | | | | | W/ELECTROD | | | +--------+--------+ + + + + Encounter Details +--------+------+ + + + | Date | Type | Department | Care Team | Description | +--------+------+ + + + | 04/12/ | Lab | Laboratory at [facility] | | S/P gastric bypass | | 2018 | | [address] | | | | | | [facility] | | | | | | and Healing, | | | | | | [address] | | | | | | [place], [place] | | | | | | [address] | | | | | | [phone] | | | +--------+------+ + + + Social History + +-------+ +--------+------+ | Tobacco Use | Types | Packs/Day | Years | Date | | | | | Used | | + +-------+ +--------+------+ | Never Smoker | | | | | + +-------+ +--------+------+ + +---+---+---+ | Smokeless Tobacco: | | | | | Never Used | | | | + +---+---+---+ + + +---------+ + | Alcohol Use | Drinks/Week | oz/Week | Comments | + + +---------+ + | No | | | | + + +---------+ + + + + | Sex Assigned at | Date Recorded | | | | + + + | Not on file | | + + + + + + + | Job Start Date | Occupation | Industry | + + + + | Not on file | Not on file | Not on file | + + + + + + + + | Travel History | Travel Start | Travel End | + + + + + + | No recent travel history available. | + + documented as of this encounter Functional Status + + + + | Functional Status | Response | Date of Assessment | + + + + | Because of a physical, mental, or emotional | No | 09/25/2018 | | condition, do you have serious difficulty | | | | doing errands alone such as visiting the | | | | doctor? | | | + + + + + + + + | Cognitive Status | Response | Date of Assessment | + + + + | Because of a physical, mental, or emotional | No | 09/25/2018 | | condition, do you have serious difficulty | | | | concentrating, remembering, or making | | | | decisions? (5 years old or older) | | | + + + + documented as of this encounter Plan of Treatment +--------+ + + + + | Date | Type | Specialty | Care Team | Description | +--------+ + + + + | 11/17/ | Video/TeleH | Pain Management | Florencio Lockett, | | | 2019 | ealth-Sched | | PhD [address] | | | | uled | | [place], [place] | | | | | | [address] | | | | | | [phone] | | | | | | | | +--------+ + + + + | 12/01/ | Video/TeleH | Pain Management | Florencio Lockett, | | | 2019 | ealth-Sched | | PhD [address] | | | | uled | | [place], [place] | | | | | | [address] | | | | | | [phone] | | | | | | | | +--------+ + + + + | 01/06/ | Office | Plastic Surgery | Kuldip Harrell MD | | | 2019 | Visit | | [address] | | | | | | [place], [place] | | | | | | [address] | | | | | | [phone] | | | | | | | | +--------+ + + + + documented as of this encounter Procedures + +--------+ + + + | Procedure Name | Priori | Date/Time | Associated Diagnosis | Comments | | | ty | | | | + +--------+ + + + | CBC (HEMOGRAM) ONLY | Routin | 04/12/2019 | S/P gastric bypass | Results for this | | | e | 3:36 PM | | procedure are in the | | | | PST | | results section. | + +--------+ + + + | VITAMIN B1, WHOLE | Routin | 04/12/2019 | S/P gastric bypass | Results for this | | BLOOD | e | 3:36 PM | | procedure are in the | | | | PST | | results section. | + +--------+ + + + | VITAMIN D, | Routin | 04/12/2019 | S/P gastric bypass | Results for this | | 25-HYDROXY, SERUM | e | 3:36 PM | | procedure are in the | | | | PST | | results section. | + +--------+ + + + | ZINC, SERUM | Routin | 04/12/2019 | S/P gastric bypass | Results for this | | | e | 3:36 PM | | procedure are in the | | | | PST | | results section. | + +--------+ + + + | VITAMIN E, SERUM | Routin | 04/12/2019 | S/P gastric bypass | Results for this | | | e | 3:36 PM | | procedure are in the | | | | PST | | results section. | + +--------+ + + + | VITAMIN A, SERUM | Routin | 04/12/2019 | S/P gastric bypass | Results for this | | | e | 3:36 PM | | procedure are in the | | | | PST | | results section. | + +--------+ + + + | HOMOCYSTEINE TOTAL, | Routin | 04/12/2019 | S/P gastric bypass | Results for this | | PLASMA | e | 3:36 PM | | procedure are in the | | | | PST | | results section. | + +--------+ + + + | COMPLETE METABOLIC | Routin | 04/12/2019 | S/P gastric bypass | Results for this | | SET | e | 3:36 PM | | procedure are in the | | (NA,K,CL,CO2,BUN,CRE | | PST | | results section. | | AT,GLUC,CA,AST,ALT,B | | | | | | LUIS ANGEL TOTAL,ALK | | | | | | PHOS,ALB,PROT TOTAL) | | | | | + +--------+ + + + | METHYLMALONIC ACID, | Routin | 04/12/2019 | S/P gastric bypass | Results for this | | SERUM | e | 3:36 PM | | procedure are in the | | | | PST | | results section. | + +--------+ + + + | CBC ONLY | Routin | 04/12/2019 | S/P gastric bypass | Results for this | | | e | 3:36 PM | | procedure are in the | | | | PST | | results section. | + +--------+ + + + | FERRITIN | Routin | 04/12/2019 | S/P gastric bypass | Results for this | | | e | 3:36 PM | | procedure are in the | | | | PST | | results section. | + +--------+ + + + | PTH, SERUM | Routin | 04/12/2019 | S/P gastric bypass | Results for this | | | e | 3:36 PM | | procedure are in the | | | | PST | | results section. | + +--------+ + + + | VITAMIN B-12 | Routin | 04/12/2019 | S/P gastric bypass | Results for this | | | e | 3:36 PM | | procedure are in the | | | | PST | | results section. | + +--------+ + + + | IRON AND TIBC, SERUM | Routin | 04/12/2019 | S/P gastric bypass | Results for this | | | e | 3:36 PM | | procedure are in the | | | | PST | | results section. | + +--------+ + + + | COPPER, SERUM | Routin | 04/12/2019 | S/P gastric bypass | Results for this | | | e | 3:36 PM | | procedure are in the | | | | PST | | results section. | + +--------+ + + + documented in this encounter Results CBC (HEMOGRAM) ONLY (04/12/2019 3:36 PM PST) + + + + + + | Component | Value | Ref Range | Performed | Pathologist | | | | | At | Signature | + + + + + + | WHITE CELL | 11.01 (H) | 3.50 - 10.80 | [facility] | | | COUNT | | K/cu mm | LABORATORY | | | | | | SERVICES, | | | | | | [facility] | | | | | | [facility] | | + + + + + + | RED CELL | 4.98 | 4.00 - 5.20 | [facility] | | | COUNT | | M/cu mm | LABORATORY | | | | | | SERVICES, | | | | | | [facility] + | | | | | | [facility] | | + + + + + + | HEMOGLOBIN | 14.7 | 12.0 - 16.0 | [facility] | | | | | g/dL | LABORATORY | | | | | | SERVICES, | | | | | | [facility] + | | | | | | [facility] | | + + + + + + | HEMATOCRIT | 44.1 | 36.0 - 46.0 % | [facility] | | | | | | LABORATORY | | | | | | SERVICES, | | | | | | [facility] + | | | | | | [facility] | | + + + + + + | MCV | 88.6 | 80.0 - 100.0 fL | [facility] | | | | | | LABORATORY | | | | | | SERVICES, | | | | | | [facility] + | | | | | | [facility] | | + + + + + + | MCHC | 33.3 | 32.0 - 36.0 | [facility] | | | | | g/dL | LABORATORY | | | | | | SERVICES, | | | | | | [facility] + | | | | | | [facility] | | + + + + + + | RDW SD | 45.5 | 35.1 - 46.3 fL | [facility] | | | | | | LABORATORY | | | | | | SERVICES, | | | | | | [facility] + | | | | | | [facility] | | + + + + + + | PLATELET | 178 | 150 - 400 K/cu | [facility] | | | COUNT | | mm | LABORATORY | | | | | | SERVICES, | | | | | | [facility] + | | | | | | [facility] | | + + + + + + | MPV | 12.3 | 9.7 - 12.3 fL | [facility] | | | | | | LABORATORY | | | | | | SERVICES, | | | | | | [facility] + | | | | | | [facility] | | + + + + + + | NRBC% | 0.0 | 0.0 - 0.3 % | [facility] | | | | | | LABORATORY | | | | | | SERVICES, | | | | | | [facility] + | | | | | | [facility] | | + + + + + + | NRBC# | 0.00 | 0.00 - 0.02 | [facility] | | | | | K/cu mm | LABORATORY | | | | | | SERVICES, | | | | | | [facility] + | | | | | | [facility]AL[facility] | | + + + + + + + + | Specimen | + + | Blood - Blood | | (substance) | + + + + + + + | Performing | Address | City/State/Zipcode | Phone Number | | Organization | | | | + + + + + | [facility] | [address] | [place] [address] | | | SERVICES, [facility] | | | | [facility] + [facility]ALING | | | | + + + + + PTH, SERUM (04/12/2019 3:36 PM PST) + +-------+ + + + | Component | Value | Ref Range | Performed | Pathologist | | | | | At | Signature | + +-------+ + + + | PTH, SERUM | 35 | 18 - 88 pg/mL | [facility] | | | | | | LABORATORY | | | | | | SERVICES, | | | | | | [facility] | [facility] + | | | | | | [facility]ALING | | + +-------+ + + + + + | Specimen | + + | Blood - Blood | | (substance) | + + + + + + + | Performing | Address | City/State/Zipcode | Phone Number | | Organization | | | | + + + + + | [facility] | [address] | [place] [address] | | | [facility] | | | | | HEALTH + HEALING | | | | + + + + + VITAMIN A, SERUM (04/12/2019 3:36 PM PST) + + + + + + | Component | Value | Ref Range | Performed | Pathologist | | | | | At | Signature | + + + + + + | INTERPRETAT | NormalComment: Test | | [facility] | | | ION (VIT A) | developed and | | REG UNIV | | | | characteristics | | PTH - INTFC | | | | determined by [facility] | | | | | | Laboratories. See | | | | | | Compliance Statement B: | | | | | | Helixbind/CSPerformed | | | | | | by [facility],[address] | | | | | | [facility] | | | | | | [address] | | | | | | [phone]. | | | | | | Josué mcdaniel MD, | | | | | | Lab. Director | | | | + + + + + + | RETINOL | 0.52 | 0.30 - 1.20 | [facility] | | | (VITAMIN A) | | mg/L | REG UNIV | | | | | | PTH - [facility] | | + + + + + + | RETINYL | <0.02 | 0.00 - 0.10 | [facility] | | | PALMATATE | | mg/L | REG UNIV | | | | | | PTH - INT[facility] | | + + + + + + + + | Specimen | + + | Blood - Blood | | (substance) | + + + + + + + | Performing | Address | City/State/Zipcode | Phone Number | | Organization | | | | + + + + + | [facility] | [address] | [place], [place] | | | UNIV PTH - [facility] | | [address] | | + + + + + VITAMIN B1, WHOLE BLOOD (04/12/2019 3:36 PM PST) + + + + + + | Component | Value | Ref Range | Performed | Pathologist | | | | | At | Signature | + + + + + + | VITAMIN B1, | 95Comment: INTERPRETIVE | 70 - 180 nmol/L | [facility] | | | WHOLE | INFORMATION: Vitamin B1, | | REG UNIV | | | BLOOD | Whole Blood This assay | | PTH - INTFC | | | | measures the | | | | | | concentration of | | | | | | thiamine diphosphate | | | | | | (TDP), the primary | | | | | | active form of vitamin | | | | | | B1. Approximately 90 | | | | | | percent of vitamin B1 | | | | | | present in whole blood | | | | | | is TDP. Thiamine and | | | | | | thiamine monophosphate, | | | | | | which comprise the | | | | | | remaining 10 percent, | | | | | | are not measured. Test | | | | | | developed and | | | | | | characteristics | | | | | | determined by [facility] | | | | | | Laboratories. See | | | | | | Compliance Statement B: | | | | | | [email or web address] | | | | | | by [facility],[address] | | | | | | [facility] | | | | | | [address] | | | | | | [phone]. | | | | | | [facility] centerJosué MD, | | | | | | Lab. Director | | | | + + + + + + + + | Specimen | + + | Blood - Blood | | (substance) | + + + + + + + | Performing | Address | City/State/Zipcode | Phone Number | | Organization | | | | + + + + + | [facility] | [address] | [place], [place] | | | UNIV PTH - INTFC | | [address] | | + + + + + VITAMIN B-12 (04/12/2019 3:36 PM PST) + + + + + + | Component | Value | Ref Range | Performed | Pathologist | | | | | At | Signature | + + + + + + | VITAMIN B12 | >6000 (H) | 193 - 986 pg/mL | [facility] | | | | | | LABORATORY | | | | | | SERVICES, | | | | | | CORE | | + + + + + + + + | Specimen | + + | Blood - Blood | | (substance) | + + + + + + + | Performing | Address | City/State/Zipcode | Phone Number | | Organization | | | | + + + + + | [facility] | [address] | [place] [address] | | | SERVICES, CORE | [address] | | | + + + + + VITAMIN D, 25-HYDROXY, SERUM (04/12/2019 3:36 PM PST) + +-------+ + + + | Component | Value | Ref Range | Performed | Pathologist | | | | | At | Signature | + +-------+ + + + | VITAMIN D | 37.3 | 30 - 80 ng/mL | [facility] | | | 25 HYDROXY | | | LABORATORY | | | | | | SERVICES, | | | | | | CORE | | + +-------+ + + + + + | Specimen | + + | Blood - Blood | | (substance) | + + + + + | Narrative | Performed At | + + + | Reference Interval: 0-18years: Deficiency: <20 ng/mL | [facility] | | Optimum level: >or=20 ng/mL | LABORATORY | | >18years: Deficiency: <20 | SERVICES, CORE | | ng/mL Insufficiency: 20-29 ng/mL | | | Optimum Level: 30-80 ng/mL High: | | | 81-150 ng/ml Toxic: >150 ng/mL | | + + + + + + + + | Performing | Address | City/State/Zipcode | Phone Number | | Organization | | | | + + + + + | [facility] | [address] | [place] [address] | | | SERVICES, CORE | [address] | | | + + + + + ZINC, SERUM (04/12/2019 3:36 PM PST) + + + + + + | Component | Value | Ref Range | Performed | Pathologist | | | | | At | Signature | + + + + + + | ZINC SERUM | 84.4Comment: | 60.0 - 120.0 | [facility] | | | | INTERPRETIVE | ug/dL | REG UNIV | | | | INFORMATION: Zinc, Serum | | PTH - INT[facility] | | | | or Plasma Elevated | | | | | | results may be due to | | | | | | skin or | | | | | | collection-related | | | | | | contamination, including | | | | | | the use of a | | | | | | noncertified metal-free | | | | | | collection/transport | | | | | | tube. If contamination | | | | | | concerns exist due to | | | | | | elevated levels of | | | | | | serum/plasma zinc, | | | | | | confirmation with a | | | | | | second specimen | | | | | | collected in a certified | | | | | | metal-free tube is | | | | | | recommended. Circulating | | | | | | zinc concentrations are | | | | | | dependent on albumin | | | | | | status and are depressed | | | | | | with malnutrition. | | | | | | Zinc may also be | | | | | | lowered with infection, | | | | | | inflammation, stress, | | | | | | oral contraceptives, and | | | | | | . Zinc may | | | | | | be elevated with zinc | | | | | | supplementation or | | | | | | fasting. Elevated zinc | | | | | | concentrations may | | | | | | interfere with copper | | | | | | absorption. Test | | | | | | developed and | | | | | | characteristics | | | | | | determined by [facility] | | | | | | Laboratories. See | | | | | | Compliance Statement B: | | | | | | [email or web address] | | | | | | by [facility],[address] | | | | | | [address], [facility] [place] | | | | | | [address] | | | | | | [phone].[email or web address]. | | | | | | [facility] centerJosué MD, | | | | | | Lab. Director | | | | + + + + + + + + | Specimen | + + | Blood - Blood | | (substance) | + + + + + + + | Performing | Address | City/State/Zipcode | Phone Number | | Organization | | | | + + + + + | [facility] | [address] | [place], [place] | | | UNIV PTH - [facility] | | [address] | | + + + + + VITAMIN E, SERUM (04/12/2019 3:36 PM PST) + + + + + + | Component | Value | Ref Range | Performed | Pathologist | | | | | At | Signature | + + + + + + | VITAMIN E | 1.0Comment: Performed by | 0.0 - 6.0 mg/L | [facility] | | | (PAULIE EMMANUEL) | [facility] | | REG UNIV | | | SERUM | [address], [facility] [place] | | PTH - INT[facility] | | | | [address] | | | | | | [phone].[facility]. | | | | | | comJosué MD, | | | | | | Lab. Director | | | | + + + + + + | VITAMIN E | 5.9Comment: Test | 5.5 - 18.0 mg/L | [facility] | | | (ALPHA | developed and | | REG UNIV | | | EMMANUEL), SERUM | characteristics | | PTH - INT[facility] | | | | determined by [facility] | | | | | | Laboratories. See | | | | | | Compliance Statement B: | | | | | | [employer]/CS | | | | + + + + + + + + | Specimen | + + | Blood - Blood | | (substance) | + + + + + + + | Performing | Address | City/State/Zipcode | Phone Number | | Organization | | | | + + + + + | [facility] | [address] | [place], [place] | | | UNIV P[facility] - [facility] | | [address] | | + + + + + METHYLMALONIC ACID, SERUM (04/12/2019 3:36 PM PST) + + + + + + | Component | Value | Ref Range | Performed | Pathologist | | | | | At | Signature | + + + + + + | METHYLMALON | 0.10Comment: | 0.00 - 0.40 | [facility] | | | IC ACID | INTERPRETIVE | umol/L | REG UNIV | | | | INFORMATION: MMA | | PTH - INT[facility] | | | | Serum/Plasma, | | | | | | | | | | | | Vitamin B12 Status | | | | | | Test developed and | | | | | | characteristics | | | | | | determined by [facility] | | | | | | Laboratories. See | | | | | | Compliance Statement B: | | | | | | [email or web address] | | | | | | by [employer],[address] | | | | | | [address], [facility] [place] | | | | | | [address] | | | | | | [phone]. | | | | | | comJosué MD, | | | | | | Lab. Director | | | | + + + + + + + + | Specimen | + + | Blood - Blood | | (substance) | + + + + + + + | Performing | Address | City/State/Zipcode | Phone Number | | Organization | | | | + + + + + | [facility] | [address] | [place], [place] | | | UNIV P[facility] - INT[facility] | | [address] | | + + + + + IRON AND TIBC (04/12/2019 3:36 PM PST) + +--------+ + + + | Component | Value | Ref Range | Performed | Pathologist | | | | | At | Signature | + +--------+ + + + | IRON | 29 (L) | 30 - 160 ug/dL | [facility] | | | | | | LABORATORY | | | | | | SERVICES, | | | | | | CORE | | + +--------+ + + + | IRON BIND | 292 | 240 - 450 ug/dL | [facility] | | | CAP | | | LABORATORY | | | | | | SERVICES, | | | | | | CORE | | + +--------+ + + + | % | 10 (L) | 20 - 50 % | [facility] | | | SATURATION | | | LABORATORY | | | TRANSFERRIN | | | SERVICES, | | | , | | | CORE | | + +--------+ + + + + + | Specimen | + + | Blood - Blood | | (substance) | + + + + + + + | Performing | Address | City/State/Zipcode | Phone Number | | Organization | | | | + + + + + | [facility] | [address] | [place] [address] | | | SERVICES, CORE | [address] | | | + + + + + HOMOCYSTEINE TOTAL, PLASMA (04/12/2019 3:36 PM PST) + + + + + + | Component | Value | Ref Range | Performed | Pathologist | | | | | At | Signature | + + + + + + | HOMOCYSTEIN | 13.2 (H) | 3.5 - 10.4 | [facility] | | | E,PLASMA,TO | | umol/L | LABORATORY | | | SERGIO | | | SERVICES, | | | | | | SPECIAL IMM | | | | | | + COAG | | + + + + + + + + | Specimen | + + | Blood - Blood | | (substance) | + + + + + + + | Performing | Address | City/State/Zipcode | Phone Number | | Organization | | | | + + + + + | [facility] | [address] | [place] [address] | | | SERVICES, SPECIAL | [address] | | | | IMM + COAG | | | | + + + + + FERRITIN (04/12/2019 3:36 PM PST) + + + + + + | Component | Value | Ref Range | Performed | Pathologist | | | | | At | Signature | + + + + + + | FERRITIN | 109Comment: Male and | 50 - 200 ng/mL | [facility] | | | | Female >18 years: | | LABORATORY | | | | <20 ng/mL: | | SERVICES, | | | | Consistant with iron | | CORE | | | | deficiency 21-50 | | | | | | ng/mL: Possible | | | | | | iron deficiency 51-99 | | | | | | ng/mL: Iron | | | | | | deficiency unlikely | | | | | | unless inflammation | | | | | | present or | | | | | | patient | | | | | | >65 years of age | | | | | | 100-200 ng/mL: | | | | | | Normal, not consistent | | | | | | with iron deficiency | | | | | | >200 ng/mL: If | | | | | | transferrin saturation | | | | | | >45%, consider | | | | | | hemochromatosis | | | | + + + + + + + + | Specimen | + + | Blood - Blood | | (substance) | + + + + + + + | Performing | Address | City/State/Zipcode | Phone Number | | Organization | | | | + + + + + | [facility] | [address] | [place] [address] | | | SERVICES, CORE | [address] | | | + + + + + COPPER, SERUM (04/12/2019 3:36 PM PST) + + + + + + | Component | Value | Ref Range | Performed | Pathologist | | | | | At | Signature | + + + + + + | COPPER | 128.2Comment: | 80.0 - 155.0 | [facility] | | | SERUM | INTERPRETIVE | ug/dL | REG UNIV | | | | INFORMATION: Copper, | | PTH - INTFC | | | | Serum or Plasma Elevated | | | | | | results may be due to | | | | | | skin or | | | | | | collection-related | | | | | | contamination, including | | | | | | the use of a | | | | | | noncertified metal-free | | | | | | collection/transport | | | | | | tube. If contamination | | | | | | concerns exist due to | | | | | | elevated levels of | | | | | | serum/plasma copper, | | | | | | confirmation with a | | | | | | second specimen | | | | | | collected in a certified | | | | | | metal-free tube is | | | | | | recommended. Serum | | | | | | copper may be elevated | | | | | | with infection, | | | | | | inflammation, stress, | | | | | | and copper | | | | | | supplementation. In | | | | | | females, elevated copper | | | | | | may also be caused by | | | | | | oral contraceptives and | | | | | | | | | | | | (concentrations may be | | | | | | elevated up to 3 times | | | | | | normal during the third | | | | | | trimester). Test | | | | | | developed and | | | | | | characteristics | | | | | | determined by [facility] | | | | | | Laboratories. See | | | | | | Compliance Statement B: | | | | | | [facility]/CSPerformed | | | | | | by [facility],[address] | | | | | | [facility] | | | | | | [address] | | | | | | [phone].[employer] [facility]. | | | | | | Josué mcdaniel MD, | | | | | | Lab. Director | | | | + + + + + + + + | Specimen | + + | Blood - Blood | | (substance) | + + + + + + + | Performing | Address | City/State/Zipcode | Phone Number | | Organization | | | | + + + + + | [facility] | [address] | [place], [place] | | | [facility] | | [id number] | | + + + + + COMPLETE METABOLIC SET (NA,K,CL,CO2,BUN,CREAT,GLUC,CA,AST,ALT,BILI TOTAL,ALK PHOS,ALB,PROT TOTAL) (04/12/2019 3:36 PM PST) + +---------+ + + + | Component | Value | Ref Range | Performed | Pathologist | | | | | At | Signature | + +---------+ + + + | GLUCOSE, | 92 | 70 - 99 mg/dL | [facility] | | | [facility] | | | LABORATORY | | | (LAB) | | | SERVICES, | | | | | [facility] | [facility] | | + +---------+ + + + | BUN, PLASMA | 9 | 6 - 20 mg/dL | [facility] | | | (LAB) | | | LABORATORY | | | | | | SERVICES, | | | | | | [facility] | | | | | [facility] | | + +---------+ + + + | CREATININE | 0.74 | 0.60 - 1.10 | [facility] | | | PLASMA | | mg/dL | LABORATORY | | | (LAB) | | | SERVICES, | | | | | | [facility] | | | | | | [facility] | | + +---------+ + + + | EGFR | >60 | >60 mL/min | [facility] | | | - | | | LABORATORY | | | [facility] | | | SERVICES, | | | | | | [facility] | | | | | | [facility] | | + +---------+ + + + | EGFR NON | >60 | >60 mL/min | [facility] | | | -[facility] | | | LABORATORY | | | [facility] | | | SERVICES, | | | | | | [facility] | | | | | | [facility] | | + +---------+ + + + | SODIUM, | 142 | 136 - 145 | [facility] | | | PLASMA | | mmol/L | LABORATORY | | | (LAB) | | | SERVICES, | | | | | | [facility] | [facility] | | | | | | [facility] | | + +---------+ + + + | POTASSIUM, | 3.4 | 3.4 - 5.0 | [facility] | | | PLASMA | | mmol/L | LABORATORY | | | (LAB) | | | SERVICES, | | | | | | [facility] + | | | | | | HEALING | | + +---------+ + + + | CHLORIDE, | 107 | 97 - 108 mmol/L | [facility] | | | PLASMA | | | LABORATORY | | | (LAB) | | | SERVICES, | | | | | | [facility] | [facility] + | | | | | | HEALING | | + +---------+ + + + | TOTAL CO2, | 22 | 21 - 32 mmol/L | [facility] | | | PLASMA | | | LABORATORY | | | (LAB) | | | SERVICES, | | | | | | [facility] | [facility] + | | | | | | HEALING | | + +---------+ + + + | CALCIUM, | 9.2 | 8.6 - 10.2 | [facility] | | | PLASMA | | mg/dL | LABORATORY | | | (LAB) | | | SERVICES, | | | | | | [facility] | | [facility] + | | | | | | HEALING | | + +---------+ + + + | CALCIUM(ALB | 9.2 | 8.6 - 10.2 | [facility] | | | CORRECTED) | | mg/dL | LABORATORY | | | | | | SERVICES, | | | | | | [facility] | [facility] | [facility] + | | | | | | HEALING | | + +---------+ + + + | BILIRUBIN | 0.9 | 0.3 - 1.2 mg/dL | [facility] | | | TOTAL | | | LABORATORY | | | | | | SERVICES, | | | | | | [facility] | | [facility] + | | | | | | HEALING | | + +---------+ + + + | TOTAL | 7.8 | 6.4 - 8.2 g/dL | [facility] | | | PROTEIN, | | | LABORATORY | | | PLASMA | | | SERVICES, | | | (LAB) | | | [facility] | | | | | [facility] + | | | | | | HEALING | | + +---------+ + + + | ALBUMIN, | 4.0 | 3.5 - 4.7 g/dL | [facility] | | | PLASMA | | | LABORATORY | | | (LAB) | | | SERVICES, | | | | | | [facility] | | [facility] | [facility] + | | | | | | HEALING | | + +---------+ + + + | ALK PHOS | 62 | 42 - 98 U/L | [facility] | | | | | | LABORATORY | | | | | | SERVICES, | | | | | | [facility] | [facility] + | | | | | | HEALING | | + +---------+ + + + | AST(SGOT) | 16 | <=41 U/L | [facility] | | | | | | LABORATORY | | | | | | SERVICES, | | | | | | [facility] | [facility] + | | | | | | HEALING | | + +---------+ + + + | ALT (SGPT) | 36 | <=60 U/L | [facility] | | | | | | LABORATORY | | | | | | SERVICES, | | | | | | [facility] | [facility] + | | | | | | HEALING | | + +---------+ + + + | ANION GAP | 13 (H) | 4 - 11 mmol/L | [facility] | | | | | | LABORATORY | | | | | | SERVICES, | | | | | | [facility] | | [facility] + | | | | | | HEALING | | + +---------+ + + + | ANION | 13 (H) | 4 - 11 mmol/L | [facility] | | | GAP(ALB | | | LABORATORY | | | CORRECTED) | | | SERVICES, | | | | | | [facility] | | | | | [facility] + | | | | | | HEALING | | + +---------+ + + + | POTASSIUM | No Hemo | | [facility] | | | CMNT | | | LABORATORY | | | | | | SERVICES, | | | | | | [facility] | | | | | | [facility] + | | | | | | HEALING | | + +---------+ + + + | BILI T CMNT | No Hemo | | [facility] | | | | | | LABORATORY | | | | | | SERVICES, | | | | | | [facility] | | | [facility] + | | | | | | HEALING | | + +---------+ + + + | AST CMNT | No Hemo | | [facility] | | | | | | LABORATORY | | | | | | SERVICES, | | | | | | [facility] | | | [facility] + | | | | | | HEALING | | + +---------+ + + + | BUN/CREATIN | 12 | 8 - 25 | [facility] | | | INE RATIO | | | LABORATORY | | | | | | SERVICES, | | | | | | [facility] | | [facility] + | | | | | | HEALING | | + +---------+ + + + | GLOBULIN | 3.8 (H) | 2.3 - 3.5 gm/dL | [facility] | | | LVL | | | LABORATORY | | | | | | SERVICES, | | | | | | [facility] | | | | [facility] + | | | | | | HEALING | | + +---------+ + + + | ALBUMIN/SEBASTIAN | 1.1 | 0.9 - 2.0 | [facility] | | | BULIN RATIO | | | LABORATORY | | | | | | SERVICES, | | | | | | [facility] | | | [facility] + | | | | | | HEALING | | + +---------+ + + + + + | Specimen | + + | Blood - Blood | | (substance) | + + + + + | Narrative | Performed At | + + + | GFR is estimated using the MDRD equation recommended by the National | [facility] | | Kidney Disease Education Program. Estimated GFR Interpretive | LABORATORY | | Information: <60 mL/min/1.73 sq m Chronic Kidney | SERVICES, | | Disease <15 mL/min/1.73 sq m Kidney Failure | CENTER FOR | | Estimated GFR greater than 60 mL/min/1.73 sq m is of limited clinical | HEALTH + | | value. The MDRD equation is not valid in the following situations: | HEALING | | - Patients under 18 years of age - Severe malnutrition or obesity | | | - Vegetarian diet - Rapidly changing kidney function - Amputees, | | | paraplegics, or other muscle-wasting diseases | | + + + + + + + + | Performing | Address | City/State/Zipcode | Phone Number | | Organization | | | | + + + + + | [facility] | [address] | [place] [address] | | | [facility] | | | | | HEALTH + HEALING | | | | + + + + + documented in this encounter Visit Diagnoses + + | Diagnosis | + + | S/P gastric bypass Bariatric surgery status | + + documented in this encounter"
--- OUTSIDE RECORDS SUMMARY | ~2019-11-17 | XMS | Encounter Summary ---
Demographics + + + | Address | [address] | | | [place] [address] | + + + | Home Phone | | + + + | Preferred Language | Unknown | + + + | Marital Status | | + + + | Adventist Affiliation | NRP | + + + | Race | White | + + + | Ethnic Group | Not or | + + + Author + + + | Author | [facility] | + + + | Organization | [facility] | + + + | Address | Unknown | + + + | Phone | Unavailable | + + + Support + + +---------+ + | Name | Relationship | Address | Phone | + + +---------+ + | Jeovanny Hernández | ECON | Unknown | | + + +---------+ + Care Team Providers + +------+ + | Care Boatswain Mate Name | Role | Phone | + +------+ + | Alisha Stovall PA-C | PCP | | + +------+ + Reason for Visit +--------+ + | Reason | Comments | +--------+ + | Other | Check up for IVF infusions | +--------+ + Encounter Details +--------+ + + + + | Date | Type | Department | Care Team | Description | +--------+ + + + + | 04/29/ | Telephone | Digestive Health | Kenan Norton, | Other (Check up for | | 2020 | | Center at [facility] [address] | MD [address] | IVF infusions) | | | | [address] | [place], [place] | | | | | for Health and | [address] | | | | | Healing, [facility] [address] | [phone] | | | | | [place], [place] | | | | | | [address] | | | | | | [phone] | | | +--------+ + + + [...] 2019 | ealth-Sched | | PhD [address] | | | | [address] | | [place], [place] | | | | | | [address] | | | | | | [phone] | | | | | | | | +--------+ + + + + | 12/01/ | Video/TeleH | Pain Management | Florencio Lockett, | | | 2019 | ealth-Sched | | PhD [address] | | | | uled | | [place], [place] | | | | | | [address] | | | | | | [phone] | | | | | | | | +--------+ + + + + | 01/06/ | Office | Plastic Surgery | Kuldip Harrell MD | | | 2019 | Visit | | [address] | | | | | | [place], [place] | | | | | | [address] | | | | | | [phone] | | | | | | | | +--------+ + + + + documented as of this encounter Visit Diagnoses Not on filedocumented in this encounter"
--- OUTSIDE RECORDS SUMMARY | ~2019-11-17 | XMS | Encounter Summary ---
Demographics + + + | Address | [address] | | | [place] [address] | + + + | Home Phone | | + + + | Preferred Language | Unknown | + + + | Marital Status | | + + + | Latter-Day Affiliation | NRP | + + + | Race | White | + + + | Ethnic Group | Not or | + + + Author + + + | Author | [facility] | + + + | Organization | [facility] | + + + | Address | Unknown | + + + | Phone | Unavailable | + + + Support + + +---------+ + | Name | Relationship | Address | Phone | + + +---------+ + | Jeovanny Hernández | ECON | Unknown | | + + +---------+ + Care Team Providers + +------+ + | Care Public Aid Eligibility Assistant Name | Role | Phone | + +------+ + | Alisha Stovall PA-C | PCP | | + +------+ + Encounter Details +--------+ + + + + | Date | Type | Department | Care Team | Description | +--------+ + + + + | 11/12/ | Pharmacy | Outpatient Retail | | | | 2019 | Visit | [facility] | | | | | | [address] | | | | | | [address] [place], [place] | | | | | | [address] | | | | | | [phone] | | | +--------+ + + + [...] Florencio Lockett, | | | 2019 | eah-Sched | | PhD [address] | | | | uled | | [place], [place] | | | | | | [address] | | | | | | [phone] | | | | | | | | +--------+ + + + + | 12/01/ | Video/TeleH | Pain Management | Florencio Lockett, | | | 2019 | ealth-Sched | | PhD [address] | | | | uled | | [place], [place] | | | | | | [address] | | | | | | [phone] | | | | | | | | +--------+ + + + + | 01/06/ | Office | Plastic Surgery | Kuldip Harrell MD | | | 2019 | Visit | | [address] | | | | | | [place] | | | | | | [address] | | | | | | [phone] | | | | | | | | +--------+ + + + + documented as of this encounter Visit Diagnoses Not on filedocumented in this encounter"
--- OUTSIDE RECORDS SUMMARY | ~2019-11-17 | XMS | Encounter Summary ---
Demographics + + + | Address | [address] | | | [place] [address] | + + + | Home Phone | | + + + | Preferred Language | Unknown | + + + | Marital Status | | + + + | Protestant Affiliation | NRP | + + + | Race | White | + + + | Ethnic Group | Not or | + + + Author + + + | Author | [facility] | + + + | Organization | [facility] | + + + | Address | Unknown | + + + | Phone | Unavailable | + + + Support + + +---------+ + | Name | Relationship | Address | Phone | + + +---------+ + | Jeovanny Hernández | ECON | Unknown | | + + +---------+ + Care Team Providers + +------+ + | Care Claims Director Name | Role | Phone | + +------+ + | Alisha Stovall PA-C | PCP | | + +------+ + Reason for Referral Physical Therapy (Routine) +--------+--------+ + + + + | Status | Reason | Specialty | Diagnoses / | Referred By | Referred To | | | | | Procedures | Contact | Contact | +--------+--------+ + + + + | Closed | | Physical | Diagnoses | Petcu, | Adan Pt Chh1 | | | | Therapy | Morbid | Aura, ACNP | [address] | | | | | obesity | [address] [facility] | [facility] | | | | | ([facility]) | [facility] | for Health | | | | | Procedures | Rd | and Healing, | | | | | PHYSICAL | [facility] [place] | Building [address], | | | | | THERAPY | [address] | 1st Floor | | | | | REFERRAL | Phone: | [place], [place] | | | | | | [phone] | [address] | | | | | | Fax: | Phone: | | | | | | [phone] | [phone] | | | | | | | Fax: | | | | | | | [phone] | +--------+--------+ + + + + Encounter Details +--------+ + + + + | Date | Type | Department | Care Team | Description | +--------+ + + + + | 08/14/ | Mate Relief | Digestive Health | Jody Watson ACNP | Morbid obesity (HCC) | | 2018 | | [place] [address] [address] | [address] | (Primary Dx) | | | | [address] [facility] | Monse Hernandez [place], | | | | | for Health and | [place] [address] | | | | | [facility], [address] | [phone] | | | | | [place], [place] | | | | | | [address] | | | | | | [phone] | | | +--------+ + + + + Social History + +-------+ +--------+------+ | Tobacco Use | Types | Packs/Day | Years | Date | | | | | Used | | + +-------+ +--------+------+ | Never Assessed | | | | | + +-------+ +--------+------+ + + + | Sex Assigned at [...] [address] | | | | ray | | [place], [place] | | | | | | [address] | | | | | | [phone] | | | | | | | | +--------+ + + + + | 12/01/ | Video/TeleH | Pain Management | Florencio Lockett, | | | 2019 | ealth-Sched | | PhD [address] | | | | uled | | [place], [place] | | | | | | [address] | | | | | | [phone] | | | | | | | | +--------+ + + + + | 01/06/ | Office | Plastic Surgery | Kuldip Harrell MD | | | 2019 | Visit | | [address] | | | | | | [place], [place] | | | | | | [address] | | | | | | [phone] | | | | | | | | +--------+ + + + + documented as of this encounter Visit Diagnoses + + | Diagnosis | + + | Morbid obesity (HCC) - Primary Morbid obesity | + + documented in this encounter"
--- OUTSIDE RECORDS SUMMARY | ~2019-11-17 | XMS | Encounter Summary ---
Demographics + + + | Address | [address] | | | [place] [address] | + + + | Home Phone | | + + + | Preferred Language | Unknown | + + + | Marital Status | | + + + | Lutheran Affiliation | NRP | + + + | Race | White | + + + | Ethnic Group | Not or | + + + Author + + + | Author | [facility] | + + + | Organization | [facility] | + + + | Address | Unknown | + + + | Phone | Unavailable | + + + Support + + +---------+ + | Name | Relationship | Address | Phone | + + +---------+ + | Jeovanny Hernández | ECON | Unknown | | + + +---------+ + Care Team Providers + +------+ + | Care Stave Mill Hand Name | Role | Phone | + +------+ + | Alisha Stovall PA-C | PCP | | + +------+ + Encounter Details +--------+ + + + + | Date | Type | Department | Care Team | Description | +--------+ + + + + | 08/14/ | Documentati | Digestive Health | Clinic, Surgery | | | 2018 | on | Center at [facility] [address] | | | | | | [address] [facility] | | | | | | for Health and | | | | | | Healing, [address] | | | | | | [place], [place] | | | | | | [address] | | | | | | [phone] | | | +--------+ + + + [...] | | | | ray | | [place], [place] | | | | | | [address] | | | | | | [phone] | | | | | | | | +--------+ + + + + | 12/01/ | Video/TeleH | Pain Management | Florencio Lockett G, | | | 2019 | ealth-Sched | | PhD [address] | | | | uled | | [place], [place] | | | | | | [address] | | | | | | [phone] | | | | | | | | +--------+ + + + + | 01/06/ | Office | Plastic Surgery | Kuldip Harrell MD | | | 2019 | Visit | | [address] | | | | | | [place], [place] | | | | | | [address] | | | | | | [phone] | | | | | | | | +--------+ + + + + documented as of this encounter Visit Diagnoses Not on filedocumented in this encounter"
--- OUTSIDE RECORDS SUMMARY | ~2019-11-17 | XMS | Encounter Summary ---
Demographics + + + | Address | [address] | | | [place] [address] | + + + | Home Phone | | + + + | Preferred Language | Unknown | + + + | Marital Status | | + + + | Buddhist Affiliation | NRP | + + + [...] Team Providers + +------+ + | Care Craft Worker Name | Role | Phone | + +------+ + | Alisha Stovall PA-C | PCP | | + +------+ + Reason for Visit + + + | Reason | Comments | + + + | Follow-up visit | | + + + Consultation (Routine) + +---------+ + + + + | Status | Reason | Specialty | Diagnoses / | Referred By | Referred To | | | | | Procedures | Contact | Contact | + +---------+ + + + + | Authorized | Other | Pain | Diagnoses | Cierra, | Levy, | | | | Management | S/P gastric | Kenan Santos MD | Florencio Gonzalez, PhD | | | | | bypass | [address] | | | | | Procedures | [address] | Ave | | | | | CONSULT TO | [place], [place] | [place], [place] | | | | | PAIN | [address] | [address] | | | | | MANAGEMENT | Phone: | Phone: | | | | | MD | [phone] | [phone] | | | | | BIOFEEDBACK | Fax: | Fax: | | | | | TRAINING,ANY | [phone] | [phone] | | | | | MODALITY | | | + +---------+ + + + + Encounter Details +--------+ + + + + | Date | Type | Department | Care Team | Description | +--------+ + + + + | 11/03/ | Video/TeleH | [facility] at [facility] | Florencio Lockett, | Follow-up visit | | 2020 | ealth-Sched | [address] | PhD [address] | | | | uled | Center for Health | [place], [place] | | | | | and Healing, | [address] | | | | | [facility] | [phone] | | | | | Floor [place], [place] | | | | | | [address] | | | | | | [phone] | | | +--------+ + + + [...] documented as of this encounter Progress Notes Florencio Lockett, PhD - 11/04/2019 8:50 AM PDTThe visit took place via secure, synchronous a udio and video technology with the provider virtually located at the distant site of [facility]. The patient stated they were located at the originating site of [place] and were in the [facility] at the time of the virtual visit. The names of all additional persons participatin g in the virtual visit and their roles are: Maria De Jesus Hernández, patient, Ran Lockett, provider. I have spent a total of 59 minutes on this patient's care today. This time includes the vi rtual visit [id number] time with the patient as well as time spent reviewing patient recor ds, coordinating/communicating with care teams and documenting the patient visit. INDIVIDUAL THERAPY PROGRESS NOTE: BARIATRIC FOLLOW-UP (INCLUDING DIET AND EXERCISE COUNSELING) Name: Maria De Jesus Hernández : 1990 Medical Record: [id number] Chief Complaint: Morbid obesity Date of Service: 11/04/2019 Maria De Jesus Anna is a 28 y.o. female who had bariatric surgery in 2019. She has been havin g difficulties since surgery and at time she regrets having surgery. She reported that she has increased her daily meals from 2 to 4. She is working on remembering to eat 6 times per day. She reported that she was doing well with her chewing but has become distracted in re cent days. Her has stage 4 cancer and they are at a point of deciding whether to co ntinue chemotherapy of switch to hospice. She is worried and sad. We discussed the physiol ogic response to stress and discussed and practiced diaphragmatic breathing. We discussed keri awddell. She mentioned that she is uncertain about portion sizes. She is not measuring her portions. She plans to contact the needle grinder to ask about portions and food choices. We d iscussed getting back to setting a timer to remind herself to eat. We discussed taking 10 g entle breaths before eating so she can calm herself. We discussed how calming herself will allow her to remember to chew more and eat slowly. We talked a bit about positive self-stat ements and about the affirmations her mental health counselor is recommending. Maria De Jesus Hernández was alert and oriented x4. Mood is normal and affect is full range. Speec h is normal rate, rhythm, volume, and tone. Thought process is goal directed, thought conten t is devoid of psychotic features, suicidal and homicidal ideation, plan, or intent. Insight and judgment is good. The patient was open and engaged throughout the session. Diagnosis: 1. Morbid obesity with BMI 35.0-39.9 2. Generalized anxiety disorder 3. Major depressive disorder, recurrent, moderate 4. Diabetes 5. Sleep apnea 6. Gastric bypass 7. Chronic nausea Plan: return in 2-4 weeks. Check mood, activity, adherence to recommendations. Ask about 's health, diaphragmatic breathing before eating, contacting Lisa for portion and f ood recommendations, eating slowly, eating on schedule, chewing completely and dr inking from eating. Ask about positive self-talk and affirmations. Discuss lifestyle david ce, adaptation, self-identity, neuroplasticity. Continue cognitive-behavioral therapy. Florencio Lockett, PhD [facility] [address] Mailcode: [id number] [place] [address] documented in this en counter Plan of Treatment +--------+ + + + + | Date | Type | Specialty | Care Team | Description | +--------+ + + + + | 11/17/ | Video/TeleH | Pain Management | Florencio Lockett, | | | 2019 | ealth-Sched | | PhD [address] | | | | uled | | [place], [place] | | | | | | [address] | | | | | | [phone] | | | | | | | | +--------+ + + + + | 12/01/ | Video/TeleH | Pain Management | Florencio Lockett, | | | 2019 | ealth-Sched | | PhD [address] | | | | uled | | [place], [place] | | | | | | [address] | | | | | | [phone] | | | | | | | | +--------+ + + + + | 01/06/ | Office | Plastic Surgery | Kuldip Harrell MD | | | 2019 | Visit | | [address] | | | | | | [place], [place] | | | | | | [address] | | | | | | [phone] | | | | | | | | +--------+ + + + + documented as of this encounter Visit Diagnoses + + | Diagnosis | + + | Morbid obesity (HCC) - Primary Morbid obesity | + + | Generalized anxiety disorder | + + | Major depressive disorder, recurrent, moderate (HCC) Major depressive disorder, | | recurrent episode, moderate | + + | Diabetes mellitus treated with oral medication (HCC) | + + | S/P gastric bypass Bariatric surgery status | + + | Sleep apnea, unspecified type | + + documented in this encounter"
--- OUTSIDE RECORDS SUMMARY | ~2019-11-17 | XMS | Encounter Summary ---
Demographics + + + | Address | [address] | | | [place] [address] | + + + | Home Phone | | + + + | Preferred Language | Unknown | + + + | Marital Status | | + + + | Restorationist Affiliation | Unknown | + + + | Race | Unknown | + + + | Ethnic Group | Unknown | + + + Author + + + | Author | [facility] | | | and [place] | + + + | Organization | [facility] | | | and [...] [address] | | | | | [place], | | | | | [place] [address] | | + + + + + Care Team Providers + +------+ + | Care Digital Advertising Analyst Name | Role | Phone | + +------+ + | Alisha Stovall | PCP | | | PA-C | | | + +------+ + Encounter Details +--------+ + + + + | Date | Type | Department | Care Team | Description | +--------+ + + + + | 08/30/ | Telephone | [facility] | Caity Joel | | | 2018 | | [facility] XRAY [address] | MD [address] | | | | | [address] | [place] | | | | | [place], [place] | [place] [address] | | | | | [address] | [phone] | | | | | [phone] | | | +--------+ + + + [...] + + documented as of this encounter Miscellaneous Notes Telephone Encounter - Gina Wesley RN - 08/30/2018 10:05 AM PDTReminder letter sent.Elec tronically signed by Gina Wesley RN at 08/30/2018 10:05 AM PDTdocumented in this [facility] Plan of Treatment +--------+---------+ + + + | Date | Type | Specialty | Care Team | Description | +--------+---------+ + + + | 11/18/ | Office | Neurology | Shirley Murdock NP | | | 2019 | Visit | | [address] | | | | | | [place] | | | | | | [address] | | | | | | [phone] | | | | | | | | +--------+---------+ + + + | 12/01/ | Office | Cardiology | Nadege Chavez | | | 2019 | Visit | | [address] | | | | | | [address] | | | | | | [place] [address] | | | | | | [phone] | | | | | | | | +--------+---------+ + + + documented as of this encounter Visit Diagnoses Not on filedocumented in this encounter"
--- OUTSIDE RECORDS SUMMARY | ~2019-11-17 | XMS | Encounter Summary ---
Demographics + + + | Address | [address] | | | [place] [address] | + + + | Home Phone | | + + + | Preferred Language | Unknown | + + + | Marital Status | | + + + | Taoist Affiliation | NRP | + + + | Race | White | + + + | Ethnic Group | Not or | + + + Author + + + | Author | [facility] | + + + | Organization | [facility] | + + + | Address | Unknown | + + + | Phone | Unavailable | + + + Support + + +---------+ + | Name | Relationship | Address | Phone | + + +---------+ + | Jeovanny Hernández | ECON | Unknown | | + + +---------+ + Care Team Providers + +------+ + | Care Advertising Solicitor Name | Role | Phone | + [...] + + + | | | | | | | +--------+--------+ + + + + Encounter Details +--------+ + + + + | Date | Type | Department | Care Team | Description | +--------+ + + + + | 05/31/ | Anesthesia | [facility] [address] | Robb Rocha, | | | 2019 | Event | [address] | [address] | | | | | [id number] | [address] | | | | | [place], | [place], [place] | | | | | [place] [address] | [address] | | | | | [phone] | [phone] | | | | | | | | +--------+ + + + + Anesthesia Record + + + + + | Procedure Name | Responsible | Anesthesia Start | Anesthesia Stop Time | | | Anesthesiologist | Time | | + + + + + | [facility] AN[facility] | | | | | SERVICE | | | | + + + + + +----+---+ +---------+ | Da | T | Event | Comment | | te | i | | | | | m | | | | | e | | | +----+---+ +---------+ | 02 | 1 | Block Pause | | | /0 | 3 | | | | 7/ | 1 | | | | 20 | 0 | | | | 20 | | | | +----+---+ +---------+ | | 1 | Start PNB | | | | 3 | SS | | | | 1 | | | | | 2 | | | +----+---+ +---------+ | | 1 | PNB SS Stop | | | | 3 | | | | | 2 | | | | | 3 | | | +----+---+ +---------+ +------+ | Meds | +------+ + + + No medications | on file. | + + + + + | No agents on file. | + + + + | No blood administrations on file. | + + +--------+ + +---------+ | Type | Details | Placement | Removal | +--------+ + +---------+ | Incisi | 09/24/18; 1416; Anterior; | 09/24/18 1416 by | | | on | epigastrium | Nora Stiles RN | | +--------+ + +---------+ | Incisi | 09/24/18; 1416; Left; Lateral; | 09/24/18 1416 by | | | on | abdomen | Nora Stiles RN | | +--------+ + +---------+ | Incisi | 09/24/18; 1417; Left; Medial; | 09/24/18 1417 by | | | on | abdomen | Nora Stiles RN | | +--------+ + +---------+ | Incisi | 09/24/18; 1417; umbilical area | 09/24/18 1417 by | | | on | | Nora Stiles RN | | +--------+ + +---------+ | Incisi | 09/24/18; 1423; Right; adb- lower | 09/24/18 1423 by | | | on | quadrant | Nora Stiles RN | | +--------+ + +---------+ | Incisi | 09/24/18; 1424; Right; Medial; | 09/24/18 1424 by | | | on | abdomen | Nora Stiles RN | | +--------+ + +---------+ | Incisi | 09/24/18; 1424; Right; adb- upper | 09/24/18 1424 by | | | on | quadrant | Nora Stiles, RN | | +--------+ + +---------+ | Incisi | 05/30/19; 0859; Alphonso Norton MD; | 05/30/19 0859 by | | | on | Left; Anterior, Upper; abdomen | Jerome Osullivantne, | | | | | RN | | +--------+ + +---------+ | Incisi | 05/30/19; 0900; Alphonso Norton MD; | 05/30/19 0900 by | | | on | Left; Anterior, Lower; abdomen | Jerome Osullivantjatin, | | | | | RN | | +--------+ + +---------+ | Incisi | 05/30/19; 0900; Alphonso Norton MD; | 05/30/19 0900 by | | | on | Right; Anterior, Upper; abdomen | Jerome Leslieratne, | | | | | RN | | +--------+ + +---------+ | Incisi | 05/30/19; 900; Alphonso Norton MD; | 05/30/19900 by | | | on | Right; Anterior, Lower; abdomen | Jerome Benitez, | | | | | RN | | +--------+ + +---------+ | Feedin | 05/30/19; 924; MD Cierra; | 05/30/19924 by | | | g Tube | G-tube; Abdomen UR; 18 | Kimberley Beaulieu RN | | +--------+ + +---------+ | Urethr | 06/01/19; 2139; Shamika Mora | 06/01/192139 by | | | al | RN; 1; Shanta; 10 mL | Shamika Mora RN | | | Karen | | | | | er | | | | +--------+ + +---------+ documented in this encounter Social History + +-------+ +--------+------+ | Tobacco [...] | | | | uled | | [place], [place] | | | | | | [address] | | | | | | [phone] | | | | | | | | +--------+ + + + + | 12/01/ | Video/TeleH | Pain Management | Florencio Lockett, | | | 2019 | ealth-Sched | | PhD [address] | | | | uled | | [place], [place] | | | | | | [address] | | | | | | [phone] | | | | | | | | +--------+ + + + + | 01/06/ | Office | Plastic Surgery | Kuldip Harrell MD | | | 2019 | Visit | | [address] | | | | | | [place], [place] | | | | | | [address] | | | | | | [phone] | | | | | | | | +--------+ + + + + documented as of this encounter Procedures + +--------+ + + + | Procedure Name | Priori | Date/Time | Associated Diagnosis | Comments | | | ty | | | | + +--------+ + + + | ANE PNB SS | Routin | 05/31/2019 | | Results for this | | | e | 7:32 PM | | procedure are in the | | | | PST | | results section. | + +--------+ + + + documented in this encounter Results PNB Single Shot (05/31/2019 7:32 PM PST) + + + | Narrative | Performed At | + + + | Robb Rocha MD 05/31/2019 7:34 PM PNB Single Shot | | | Placement Start Time: 05/31/2019 1:12 PM Placement End Time: 05/31/2019 | | | 1:23 PM Block Method: Single-Shot Block Reason: at surgeon's request | | | for postop pain management Location Performed: PACU The patient was | | | identified, site verified and marked, full PARQ done PROCEDURE | | | Number of Attempts: 1 Block Type: subcostal TAP Side: left | | | Patient Position: Supine Monitors: EKG, NIBP and SpO2 Skin Prep: | | | Chloraprep Team Pause: Performed per policy Protective Barrier: Cap, | | | Mask, Hand scrub and Sterile Gloves Patient Status: Sedated but | | | participating Supplemental O2 given TECHNOLOGY USED | | | Technology used: Ultrasound guided Ultrasound Image: Printed | | | and placed in patients chart Needle Visualization: Needle tip | | | visualized Hydrodissection: Hydrodissection with local anesthetic | | | PLACEMENT Needle Type: Pajunk SonoPlex Needle Size: 21 G Needle | | | Length (cm): 10 cm Paresthesia: No Blood Return on Aspiration: no | | | blood return on aspiration Medication injected in 5mL aliquots. | | | Negative aspiration confirmed before and after each aliquot. | | | ASSESSMENT Sesory Assessment: Deferred Motor Assessment: Deferred | | | Complications: No apparent complications Technical | | | Difficulty: Easy Intended Analgesia: Deferred Procedure Abandoned?: | | | No NARRATIVE Attending was physically present for the critical | | | portions of the procedure as described in the procedure note | | | Attending/Authorizing Provider: Sammi Ayala MD Performing Provider: | | | Robb Rocha MD Procedure Comments: Patient was awake and | | | conversant during the procedure. Tolerated the procedure well | | | without complaints. No apparent complications Performed TAP | | | block at the request of surgeon. Pt seem to have some pain relief. I | | | believe there is a large component of anxiety that she wishes to | | | treat with IV fentanyl. Encourage PO and adding muscle relaxant to | | | help with cramping pain. Given bradycardia will suggest flexeril | | | over tizanidine. | | + + + documented in this encounter Visit Diagnoses Not on filedocumented in this encounter"
--- OUTSIDE RECORDS SUMMARY | ~2019-11-17 | XMS | Encounter Summary ---
Demographics + + + | Address | [address] | | | [place] [address] | + + + | Home Phone | | + + + | Preferred Language | Unknown | + + + | Marital Status | | + + + | Baptism Affiliation | NRP | + + + | Race | White | + + + | Ethnic Group | Not or | + + + Author + + + | Organization | Unknown | + + + | Address | Unknown | + + + | Phone | Unavailable | + + + Support + + +---------+ + | Name | Relationship | Address | Phone | + + +---------+ + | Jeovanny Hernández | DELIA | Unknown | | + + +---------+ + Care Team Providers + +------+ + | Care Modeling Analyst Name | Role | Phone | + +------+ + | Alisha Stovall PA-C PCP | | + +------+ + Encounter Details +--------+--------+ + + + | Date | Type | Department | Care Team | Description | +--------+--------+ + + + | 05/30/ | Travel | | | | | 2020 | | | | | +--------+--------+ + + + Social History + +-------+ [...] Management | Florencio Lockett, | | | 2020 | ealth-Sched | | PhD [address] | | | | [address] | | [place], [place] | | | | | | [address] | | | | | | [phone] | | | | | | | | +--------+ + + + + | 12/01/ | Video/TeleH | Pain Management | Florencio Lockett, | | | 2019 | ealth-Sched | | PhD [address] | | | | uled | | [place], [place] | | | | | | [address] | | | | | | [phone] | | | | | | | | +--------+ + + + + | 01/06/ | Office | Plastic Surgery | Kuldip Harrell MD | | | 2019 | Visit | | [address] | | | | | | [place], [place] | | | | | | [address] | | | | | | [phone] | | | | | | | | +--------+ + + + + documented as of this encounter Visit Diagnoses Not on filedocumented in this encounter"
--- OUTSIDE RECORDS SUMMARY | ~2019-11-17 | XMS | Encounter Summary ---
Demographics + + + | Address | [address] | | | [place] [address] | + + + | Home Phone | | + + + | Preferred Language | Unknown | + + + | Marital Status | | + + + | Zoroastrian Affiliation | NRP | + + + [...] Team Providers + +------+ + | Care Survey Interviewer Name | Role | Phone | + +------+ + | Alisha Stovall PA-C | PCP | | + +------+ + Reason for Visit + + + | Reason | Comments | + + + | Refill Request | | + + + Encounter Details +--------+--------+ + + + | Date | Type | Department | Care Team | Description | +--------+--------+ + + + | 06/01/ | Refill | Digestive Health | Nellie Ybarra, | Refill Request | | 2019 | | Center at [facility] [address] | [facility] | | | | | [address] [place] | [place], [place] | | | | | for [facility] and | [address] | | | | | [facility] [address] | [phone] | | | | | [place], [place] | | | | | | [address] | | | | | | | [...] | | | | uled | | [place], [place] | | | | | | [address] | | | | | | [phone] | | | | | | | | +--------+ + + + + | 12/01/ | Video/TeleH | Pain Management | Florencio Lockett, | | | 2019 | ealth-Sched | | PhD [address] | | | | uled | | [place], [place] | | | | | | [address] | | | | | | [phone] | | | | | | | | +--------+ + + + + | 01/06/ | Office | Plastic Surgery | Kuldip Harrell MD | | | 2020 | Visit | | [address] | | | | | | [place], [place] | | | | | | [address] | | | | | | [phone] | | | | | | | | +--------+ + + + + documented as of this encounter Visit Diagnoses Not on filedocumented in this encounter"
--- OUTSIDE RECORDS SUMMARY | ~2019-11-17 | XMS | Encounter Summary ---
Demographics + + + | Address | [address] | | | [place] [address] | + + + | Home Phone | | + + + | Preferred Language | Unknown | + + + | Marital Status | | + + + | Yarsani Affiliation | NRP | + + + | Race | White | + + + | Ethnic Group | Not or | + + + Author + + + | Author | [facility] | + + + | Organization | [facility] | + + + | Address | Unknown | + + + | Phone | Unavailable | + + + Support + + +---------+ + | Name | Relationship | Address | Phone | + + +---------+ + | Jeovanny Hernández | ECON | Unknown | | + + +---------+ + Care Team Providers + +------+ + | Care Remediation Technician Name | Role | Phone | + +------+ + | Alisha Stovall PA-C | PCP | | + +------+ + Encounter Details +--------+ + + + + | Date | Type | Department | Care Team | Description | +--------+ + + + + | 04/25/ | Asphalt Worker | Digestive Health | Kenan Norton, | S/P gastric bypass | | 2020 | | Center at [facility] [address] | MD [address] | (Primary Dx); | | | | [address] | [facility] [place] | Inadequate oral | | | | for Health and | [address] | intake | | | | Healing, [address] | [phone] | | | | | [place], [place] | | | | | | [address] | | | | | | | [...] Florencio Lockett, | | | 2019 | silvianoh-Sched | | PhD [address] | | | | uled | | [place], [place] | | | | | | [address] | | | | | | [phone] | | | | | | | | +--------+ + + + + | 12/01/ | Video/TeleH | Pain Management | Florencio Lockett, | | | 2019 | ealth-Sched | | PhD [address] | | | | uled | | [place], [place] | | | | | | [address] | | | | | | [phone] | | | | | | | | +--------+ + + + + | 01/06/ | Office | Plastic Surgery | Kuldip Harrell MD | | | 2020 | Visit | | [address] | | | | | | [place], [place] | | | | | | [address] | | | | | | [phone] | | | | | | | | +--------+ + + + + documented as of this encounter Visit Diagnoses + + | Diagnosis | + + | S/P gastric bypass - Primary Bariatric surgery status | + + | Inadequate oral intake Other symptoms concerning nutrition, metabolism, and | | development | + + documented in this encounter"
--- OUTSIDE RECORDS SUMMARY | ~2019-11-17 | XMS | Clinical Summary ---
Demographics + + + | Address | [address] | | | [place] [address] | + + + | Home Phone | | + + + | Preferred Language | Unknown | + + + | Marital Status | | + + + | Oriental Orthodox Affiliation | NRP | + + + | Race | White | + + + | Ethnic Group | Not or | + + + Author + + + | Author | [facility] | + + + | Organization | [facility] | + + + | Address | Unknown | + + + | Phone | Unavailable | + + + Support + + +---------+ + | Name | Relationship | Address | Phone | + + +---------+ + | Jeovanny Hernández | ECON | Unknown | | + + +---------+ + Care Team Providers + +------+ + | Care Manager Regulatory Name | Role | Phone | + +------+ + | Alisha Stovall PA-C | PCP | | + +------+ + Source Comments [facility] and [facility] Allergies + + + + + + | Active Allergy | Reactions | Severity | Noted | Comments | | | | | Date | | + + + + + + | Benzonatate | Rash | | 11/11/19 | | | | | | 18 | | + + + + + + | Cigarette Smoke | Airway Constriction | | 09/06/19 | | | | | | 19 | | + + + + + + | Divalproex Sodium | Suicidal Ideation | | 11/11/19 | | | | | | 18 | | + + + + + + | Doxycycline | Rash | | 11/11/19 | | | | | | 18 | | + + + + + + | Ibuprofen | Hives | High | 10/27/19 | | | | | | 17 | | + + + + + + | Oxycodone-Acetaminop | Nausea and Vomiting | | 11/11/19 | | | hen | | | 18 | | + + + + + + | [place] Oil | Hives, Nausea and | | 11/11/19 | | | | Vomiting | | 18 | | + + + + + + | Quetiapine Fumarate | Suicidal Ideation | | 11/11/19 | | | | | | 18 | | + + + + + + Medications + + + +---------+------+------+-------+ | Medication | Sig | Dispensed | Refills | Star | End | Statu | | | | | | t | Date | s | | | | | | Date | | | + + + +---------+------+------+-------+ | beclomethasone | Inhale 1 puff two | | 0 | | | Activ | | (QVAR) 40 | times daily. | | | | | e | | mcg/actuation | Indications: | | | | | | | inhalation | Controller | | | | | | | aerosolIndications: | Medication for | | | | | | | maintenance therapy | Asthma | | | | | | | for asthma | | | | | | | + + + +---------+------+------+-------+ | topiramate 50 mg | 50 mg two times | | 0 | 05/0 | | Activ | | oral | daily. Indications: | | | 2/20 | | e | | tabletIndications: | Migraine Prevention | | | 19 | | | | migraine prevention | | | | | | | + + + +---------+------+------+-------+ | pantoprazole 20 mg | Take 1 tablet by | 60 | 2 | 12/1 | | Activ | | oral tablet,delayed | mouth two times | tablet | | 8/20 | | e | | release | daily. Indications: | | | 19 | | | | (DR/EC)Indications: | gastroesophageal | | | | | | | gastroesophageal | reflux disease | | | | | | | reflux disease | | | | | | | + + + +---------+------+------+-------+ | FLUoxetine 40 mg | Take 40 mg by mouth | | 0 | | | Activ | | oral capsule | once daily. | | | | | e | + + + +---------+------+------+-------+ | lamotrigine | Take 1 tablet by | | 0 | | | Activ | | (LAMICTAL ORAL) | mouth two times | | | | | e | | | daily. | | | | | | + + + +---------+------+------+-------+ | | Take 1 Dose by mouth | | 0 | | | Activ | | mv,uri,iron,mn/folic | once daily. | | | | | e | | acid/chol | | | | | | | | (YIFS-INTZ-CYBMR | | | | | | | | (PABA) ORAL) | | | | | | | + + + +---------+------+------+-------+ | promethazine 25 mg | Take 25 mg by mouth | | 0 | | | Activ | | oral tablet | as needed for | | | | | e | | | nausea/vomiting. | | | | | | + + + +---------+------+------+-------+ | MEDICATION HELP | Take 1 tablet by | | 0 | | | Activ | | | mouth four times | | | | | e | | | daily. Bariatric | | | | | | | | Fusion | | | | | | + + + +---------+------+------+-------+ | albuterol 90 | Inhale 2 puffs by | | 0 | | | Activ | | mcg/actuation | mouth two times | | | | | e | | inhalation HFA | daily. | | | | | | | aerosol inhaler | | | | | | | + + + +---------+------+------+-------+ | acetaminophen 500 | Take 2 tablets by | | 0 | 02/0 | | Activ | | mg oral tablet | mouth every six | | | 9/20 | | e | | | hours as needed for | | | 20 | | | | | mild pain. | | | | | | + + + +---------+------+------+-------+ | glycerin (ADULT) | Unwrap and insert 1 | | 0 | 02/0 | | Activ | | rectal suppository | suppository rectally | | | 9/20 | | e | | | once daily as | | | 20 | | | | | needed. Remove foil | | | | | | | | wrapper, insert 1 | | | | | | | | suppository into | | | | | | | | rectum and retain | | | | | | | | for about 15 | | | | | | | | minutes. | | | | | | + + + +---------+------+------+-------+ | lidocaine 5 % | Apply 1 patch to | 10 | 0 | 02/1 | | Activ | | topical adhesive | skin every 24 hours. | patch | | 0/20 | | e | | patch,medicated | Apply patch to most | | | 20 | | | | | painful area; Patch | | | | | | | | may remain in place | | | | | | | | for up to 12 hours | | | | | | | | in any 24-hour | | | | | | | | period.Ok for OTC | | | | | | | | patches if not | | | | | | | | covered by | | | | | | | | insurance. | | | | | | + + + +---------+------+------+-------+ | naloxone (NARCAN) | Instill 1 spray in | 2 each | 0 | 02/0 | | Activ | | 4 mg/actuation nasal | nose as needed for | | | 9/20 | | e | | spray,non-aerosol | suspected opioid | | | 20 | | | | | overdose. May repeat | | | | | | | | with a second dose | | | | | | | | device in other | | | | | | | | nostril after 2 to 3 | | | | | | | | minutes if no | | | | | | | | response, call 911. | | | | | | + + + +---------+------+------+-------+ | mineral oil rectal | Insert 133 mL | 133 mL | 0 | 02/0 | | Activ | | enema | rectally once daily | | | 9/20 | | e | | | as needed | | | 20 | | | | | (constipation). | | | | | | + + + +---------+------+------+-------+ | Multivitamin with | Take 2 tablets by | 60 | 1 | 02/0 | | Activ | | Iron-Mineral oral | mouth once daily. | tablet | | 9/20 | | e | | tablet | | | | 20 | | | + + + +---------+------+------+-------+ | calcium-vitamin D | Take 1 tablet by | 30 | 1 | 02/0 | | Activ | | 500 mg(1,250mg) -200 | mouth three times | tablet | | 9/20 | | e | | unit oral tablet | daily with meals. | | | 20 | | | | | Take 2 hours apart | | | | | | | | from multivitamin | | | | | | + + + +---------+------+------+-------+ | cyanocobalamin 500 | Take 1 tablet by | | 0 | 02/0 | | Activ | | mcg oral tablet | mouth once daily. | | | 9/20 | | e | | | | | | 20 | | | + + + +---------+------+------+-------+ | cyclobenzaprine 5 | 5-10 mg by mouth | 60 | 0 | 03/0 | | Activ | | mg oral tablet | three times per day | tablet | | 2/20 | | e | | | as needed. Do not | | | 20 | | | | | use longer than 2-3 | | | | | | | | weeks. | | | | | | + + + +---------+------+------+-------+ | magnesium | Take 30 mL by | 473 mL | 1 | 03/0 | | Activ | | hydroxide 400 mg/5 | feeding tube route | | | 3/20 | | e | | mL oral suspension | two times daily. | | | 20 | | | + + + +---------+------+------+-------+ | diazePAM 5 mg/5 mL | 2 mL by feeding tube | 30 mL | 0 | 03/0 | | Activ | | (1 mg/mL) oral | route every six | | | 3/20 | | e | | solution | hours as needed. | | | 20 | | | + + + +---------+------+------+-------+ | gabapentin 250 | Take 12 mL by mouth | 100 mL | 0 | 03/2 | | Activ | | mg/5 mL oral | every eight hours as | | | 3/20 | | e | | solution | needed (multi-modal | | | 20 | | | | | pain control). | | | | | | + + + +---------+------+------+-------+ | mirtazapine 15 mg | Take 1 tablet by | 30 | 1 | 04/1 | | Activ | | oral | mouth once daily in | tablet | | 7/20 | | e | | tabletIndications: | the evening. | | | 20 | | | | s/p gastric bypass | mirtazapine at 15mg | | | | | | | | and titrate up to | | | | | | | | 30mg as tolerated | | | | | | | | after 2 weeks | | | | | | | | Indications: s/p | | | | | | | | gastric bypass | | | | | | + + + +---------+------+------+-------+ | scopolamine 1 mg | Apply 1 patch to | 4 patch | 1 | 05/0 | | Activ | | over 3 days | skin every | | | 5/20 | | e | | transdermal patch 3 | seventy-two hours. | | | 20 | | | | dayIndications: | Indications: prevent | | | | | | | prevention of | nausea and vomiting | | | | | | | post-operative | after surgery | | | | | | | nausea and vomiting | | | | | | | + + + +---------+------+------+-------+ | HYDROmorphone 1 | 4 mL by feeding tube | 100 mL | 0 | 05/0 | | Activ | | mg/mL oral | route every eight | | | 8/20 | | e | | liquidIndications: | hours as needed. | | | 20 | | | | severe pain | Indications: | | | | | | | | excessive pain | | | | | | + + + +---------+------+------+-------+ | simethicone chew | Chew and swallow 1 | 30 | 3 | 05/2 | | Activ | | 80 mg oral | tablet four times | tablet | | 1/20 | | e | | tablet,chewableIndic | daily as needed for | | | 20 | | | | ations: Morbid | gas/bloating. | | | | | | | obesity (HCC) | | | | | | | + + + +---------+------+------+-------+ | prucalopride 2 mg | Take 1 tablet by | 30 | 1 | 06/0 | | Activ | | oral | mouth once daily. | tablet | | 4/20 | | e | | tabletIndications: | Indications: chronic | | | 20 | | | | chronic idiopathic | idiopathic | | | | | | | constipation | constipation | | | | | | + + + +---------+------+------+-------+ | ondansetron ODT 4 | Dissolve 1 tablet on | 15 | 0 | 06/1 | | Activ | | mg oral | tongue and swallow | tablet | | 3/20 | | e | | tablet,disintegratin | every twelve hours | | | 20 | | | | g | as needed for | | | | | | | | nausea/vomiting. | | | | | | + + + +---------+------+------+-------+ | prochlorperazine 5 | Take 1 to 2 tablets | 30 | 0 | 07/0 | | Activ | | mg oral tablet | by mouth every six | tablet | | 6/20 | | e | | | hours as needed for | | | 20 | | | | | nausea/vomiting. Max | | | | | | | | dose: 40 mg/day | | | | | | + + + +---------+------+------+-------+ Active Problems + + | Patient Care Coordination Note | + + | RMD: Dr. Allen Osullivan - phone: [phone], fax: [phone] | + + + + + | Problem | Noted Date | + + + | Chronic constipation | 08/30/2019 | + + + | S/P gastrostomy tube (G tube) placement, follow-up exam | 06/14/2019 | + + + | Poor nutrition | 05/30/2019 | + + + | Nausea with dry heaving | 05/23/2019 | + + + | Epigastric pain | 05/23/2019 | + + + | S/P gastric bypass | 12/21/2018 | + + + | Dehydration | 11/14/2018 | + + + | Anxiety | 09/25/2018 | + + + | Hyperlipidemia | 08/10/2018 | + + + | PCOS (polycystic ovarian syndrome) | 08/10/2018 | + + + | Chronic cholecystitis | 08/10/2018 | + + + | HTN (hypertension) | 2017 | + + + | Asthma | 2017 | + + + | GERD (gastroesophageal reflux disease) | 2017 | + + + | Morbid obesity | 10/13/2017 | + + + | Diabetes mellitus treated with oral medication | 10/13/2017 | + + + Resolved Problems + + + + | Problem | Noted | Resolved | | | Date | Date | + + + + | Acute post-operative pain | 09/26/19 | | | | 19 | 9 | + + + + Encounters +--------+ + + + + | Date | Type | Specialty | Care Team | Description | +--------+ + + + + | 11/13/ | Video/TeleH | Gastroenterology | Cassidy Schneider, | | | 2019 | bubba-Sched | | | | | | ray | | | | +--------+ + + + + | 11/03/ | Video/TeleH | Pain Management | Florencio Lockett, | Follow-up visit | | 2019 | bubba-Sched | | | | | | ray | | | | +--------+ + + + + | 10/31/ | Video/TeleH | Surgery | Knean Norton, | | | 2019 | ealth-Sched | | MD | | | | uled | | | | +--------+ + + + + | 10/31/ | Telephone | Surgery | Kenan Norton, | | | 2019 | | | MD | | +--------+ + + + + | 10/28/ | MyChart | Surgery | Kenan Norton, | 2 weeks intake | | 2019 | Encounter | | MD | | +--------+ + + + + | 10/27/ | Refill | Surgery | Kenan Norton, | Refill Request | | 2019 | | | MD | | +--------+ + + + + | 10/07/ | Video/TeleH | Pain Management | Florencio Lockett, | Follow-up visit | | 2019 | ealth-Sched | | PhD | | | | uled | | | | +--------+ + + + + | 10/06/ | Pharmacy | | | | | 2019 | Visit | | | | +--------+ + + + + | 10/04/ | Refill | Surgery | Kenan Norton, | | | 2019 | | | MD | | +--------+ + + + + | 10/03/ | Pharmacy | | | | | 2020 | Visit | | | | +--------+ + + + + | 10/03/ | Refill | | Lucero Arias MD | Refill Request | | 2019 | | | | | +--------+ + + + + | 09/29/ | Telephone | Gastroenterology | Cassidy Schneider, | Prior Authorization | | 2019 | | | | Request - Medication | | | | | | (motegrity) | +--------+ + + + + | 09/25/ | Video/TeleH | Gastroenterology | Cassidy Schneider, | | | 2019 | ealth-Sched | | | | | | uljeancarlos | | | | +--------+ + + + + | 09/16/ | Refill | Surgery | Kenan Norton, | Refill Request | | 2019 | | | | (prochlorperazine) | +--------+ + + + + | 09/11/ | Abstract | Surgery | Kenan Norton, | | | 2020 | | | MD | | +--------+ + + + + | 09/11/ | Refill | Surgery | Kenan Norton, | Refill Request | | 2019 | | | MD | (simethicone ) | +--------+ + + + + | 09/04/ | Refill | Surgery | Kenan Norton, | Refill Request | | 2020 | | | MD | (prochlevererazine ) | +--------+ + + + + | 08/29/ | Video/TeleH | Surgery | Kenan Norton, | Follow-up visit | | 2020 | ealth-Sched | | MD | | | | uled | | | | +--------+ + + + + | 08/29/ | MyChart | Surgery | Kenan Norton, | RE: < No Subject> | 2019 | Encounter | | MD | | +--------+ + + + + | 08/26/ | MyChart | Surgery | Clinic, Surgery | Upcoming Virtual | | 2019 | Encounter | | | Visit. | +--------+ + + + + | 08/26/ | MyChart | Surgery | Kenan Norton, | RE: appointment 08/29 | 2019 | Encounter | | MD | | +--------+ + + + + | 08/26/ | Refill | Surgery | Kenan Norton, | Refill Request | | 2019 | | | MD | (scopolamine) | +--------+ + + + + from Last 3 Months Social History + +-------+ +--------+------+ | Tobacco [...] recent travel history available. | + + Last Filed Vital Signs + + + + + | Vital Sign | Reading | Time Taken | Comments | + + + + + | Blood Pressure | 118/65 | 06/14/2019 8:12 AM | | | | | PST | | + + + + + | Pulse | 63 | 06/14/2019 8:12 AM | | | | | PST | | + + + + + | Temperature | 36.6 C (97.9 F) | 06/14/2019 8:12 AM | | | | | PST | | + + + + + | Respiratory Rate | 14 | 06/14/2019 8:12 AM | | | | | PST | | + + + + + | Oxygen Saturation | 100% | 06/14/2019 8:12 AM | | | | | PST | | + + + + + | Inhaled Oxygen | - | - | | | Concentration | | | | + + + + + | Weight | 111.8 kg (246 lb 6.4 | 06/14/2019 8:12 AM | | | | oz) | PST | | + + + + + | Height | 180.3 cm (5' 11") | 06/14/2019 8:12 AM | | | | | PST | | + + + + + | Body Mass Index | 34.37 | 06/14/2019 8:12 AM | | | | | PST | | + + + + + Plan of Treatment +--------+ + + + + | Date | Type | Specialty | Care Team | Description | +--------+ + + + + | 11/17/ | Video/TeleH | Pain Management | Florencio Lockett, | | | 2019 | ealth-Sched | | PhD [address] | | | | uled | | [place], [place] | | | | | | [address] | | | | | | [phone] | | | | | | | | +--------+ + + + + | 12/01/ | Video/TeleH | Pain Management | Florencio Lockett, | | | 2019 | ealth-Sched | | PhD [address] | | | | uled | | [place], [place] | | | | | | [address] | | | | | | [phone] | | | | | | | | +--------+ + + + + | 01/06/ | Office | Plastic Surgery | Kuldip Harrell MD | | | 2020 | Visit | | [address] | | | | | | [place], [place] | | | | | | [address] | | | | | | [phone] | | | | | | | | +--------+ + + + + + + + + + | Health Maintenance | Due Date | Last Done | Comments | + + + + + | Pneumococcal | | | | | vaccination (1 of 1 | 5 | | | | - PPSV23) | | | | + + + + + | Influenza (Flu) | | | | | vaccination (#1) | 0 | | | + + + + + Implants + +------+------+ +--------+--------+--------+ | Implanted | Type | Area | Manufacture | Device | Shelf | Model | | | | | r | | Expira | / | | | | | | Identi | tion | Serial | | | | | | fier | Date | / Lot | + +------+------+ +--------+--------+--------+ | Reinforcement Staple Line | | | [employer] | | 04/23/ | [id number] | | Bioabsorbable Sterile | | | [employer] | | 2020 | [id number] / | | Seamguard Latex Free | | | | | | | | Disposable Blue Gold Green - | | | | | | / | | [id number]: Qty: 2 on | | | | | | 834 | | 09/24/2018 by Kenan Norton | | | | | | | | MD Danielle at [facility] RE[facility] | | | | | | | | LOC | | | | | | | + +------+------+ +--------+--------+--------+ Results Not on filefrom Last 3 Months Insurance + +--------+ +--------+ +---------+--------+ | Payer | Benefi | Subscriber | Effect | Phone | Address | Type | | | t Plan | ID | cristopher | | | | | | / | | Dates | | | | | | Group | | | | | | + +--------+ +--------+ +---------+--------+ | | [employer] | xxxxxxxxx | | [phone] | | Indemn | | | A | | 020-Pr | 7 | | ity | | | | | esent | | | | + +--------+ +--------+ +---------+--------+ | SUBMARINE CABLE EQUIPMENT TECHNICIAN MEDICAID | SUBMARINE CABLE EQUIPMENT TECHNICIAN | [id number] | | | | Medica | | | [place] | | 017-Pr | | | id | | | [place] | | esent | | | | + +--------+ +--------+ +---------+--------+ + +--------+ +--------+ + + | Guarantor Name | Accoun | Relation to | Date | Phone | Billing Address | | | t Type | Patient | of | | | | | | | | | | + +--------+ +--------+ + + | Maria De Jesus Hernández | Person | Self [birth year] | [address] | | | al/Fam | | 1990 | [phone] | [place] | | | [place] | | | [address] (Home) | [phone] | + +--------+ +--------+ + + Advance Directives + + + + + | Code Status | Date | Date | Comments | | | Activated | Inactivated | | + + + + + | Full Code | 05/30/2019 | 06/03/2019 | | | | 5:55 AM | 6:01 AM | | + + + + + + + + +---+ | | | | | + + + +---+ | Full Code | 01/10/2019 | 01/10/2019 | | | | 1:35 PM | 9:32 PM | | + + + +---+ + + + +---+ | | | | | + + + +---+ | Full Code | 09/24/2018 | 09/26/2018 | | | | 10:46 AM | 7:52 PM | | + + + +---+
--- OUTSIDE RECORDS SUMMARY | ~2019-11-17 | XMS | Encounter Summary ---
Demographics + + + | Address | [address] | | | [place] [address] | + + + | Home Phone | | + + + | Preferred Language | Unknown | + + + | Marital Status | | + + + | Faith Affiliation | NRP | + + + [...] Team Providers + +------+ + | Care Pmp Project Manager Name | Role | Phone | + +------+ + | Alisha Stovall PA-C | PCP | | + +------+ + Reason for Referral PROC - Inpatient Surgery (Routine) +--------+--------+ + + + + | Status | Reason | Specialty | Diagnoses / | Referred By | Referred To | | | | | Procedures | Contact | Contact | +--------+--------+ + + + + | Closed | | Surgery | Diagnoses | [place], | | | | | Morbid | Kenan Santos MD | Kenan Santos MD | | | | | obesity with | [address] | | | | | BMI of | [address] | Ave | | | | | 50.0-59.9, | [place] | | | | | adult (HCC) | [address] | [address] | | | | | Calculus of | Phone: | Phone: | | | | | gallbladder | | | | | | | with | Fax: | Fax: | | | | | chronic | [phone] | [phone] | | | | | cholecystiti | | | | | | | s without | | | | | | | obstruction | | | | | | | Procedures | | | | | | | REQUEST TO | | | | | | | SURGERY | | | | | | | CONSTRUCTION REP | | | | | | | [place] | | | | | | | LAP,CHOLECYS | | | | | | | TECTOMY [place] | | | | | | | LAP GASTRIC | | | | | | | BYPASS/NOREEN- | | | | | | | EN-Y | | | +--------+--------+ + + + + Reason for Visit + + + | Reason | Comments | + + + | History and physical | | | examination | | + + + Consultation (Routine) +--------+ + + + + + | Status | Reason | Specialty | Diagnoses / | Referred By | Referred To | | | | | Procedures | Contact | Contact | +--------+ + + + + + | Closed | BAR: | Surgery | | Bar | Bar | | | Scheduled | | | Bariatri | [facility]atri Surg | | | with SUPERVISOR BURLING AND JOINING | | | Surg Chh2 | Chh2 [address] | | | | | | [address] | [address] | | | | | | Ave Center | [facility] | | | | | | for Health | Health and | | | | | | and Healing, | Healing, | | | | | | Building [address] | [address] | | | | | | [place], | [place], [place] | | | | | | [place] | [address] | | | | | | [address] | Phone: | | | | | | Phone: | | | | | | | | Fax: | | | | | | Fax: | [phone] | | | | | | [phone] | | +--------+ + + + + + Encounter Details +--------+---------+ + + + | Date | Type | Department | Care Team | Description | +--------+---------+ + + + | 08/10/ | Office | Digestive Health | Kenan Norton, | Morbid obesity with | | 2018 | Visit | Center at [facility] [address] | [address] | BMI of 50.0-59.9, | | | | [address] | [place], [place] | adult ([facility]) (Primary | | | | for Health and | [address] | Dx); Diabetes | | | | Healing, [address] | | mellitus treated | | | | [place], [place] | | with oral medication | | | | [address] | | ([facility]); | | | | | | Gastroesophageal | | | | | | reflux disease, | | | | | | esophagitis presence | | | | | | not specified; | | | | | | Asthma, unspecified | | | | | | asthma severity, | | | | | | unspecified whether | | | | | | complicated, | | | | | | unspecified whether | | | | | | persistent; | | | | | | Hypertension, | | | | | | unspecified type; | | | | | | Hyperlipidemia, | | | | | | unspecified | | | | | | hyperlipidemia type; | | | | | | PCOS (polycystic | | | | | | ovarian syndrome); | | | | | | Chronic | | | | | | cholecystitis | +--------+---------+ + + + Social History [...] + + + | Blood Pressure | 143/79 | 08/10/2018 10:31 AM | | | | | PDT | | + + + + + | Pulse | 75 | 08/10/2018 10:31 AM | | | | | PDT | | + + + + + | Temperature | 36.8 C (98.2 F) | 08/10/2018 10:31 AM | | | | | PDT | | + + + + + | Respiratory Rate | 16 | 08/10/2018 10:31 AM | | | | | PDT | | + + + + + | Oxygen Saturation | - | - | | + + + + + | Inhaled Oxygen | - | - | | | Concentration | | | | + + + + + | Weight | 174.5 kg (384 lb | 08/10/2018 10:31 AM | | | | 11.2 oz) | PDT | | + + + + + | Height | 181.6 cm (5' 11.5") | 08/10/2018 10:31 AM | | | | | PDT | | + + + + + | Body Mass Index | 52.91 | 08/10/2018 10:31 AM | | | | | PDT | | + + + + + documented in this encounter Progress Kenan Xie MD - 08/10/2018 10:00 AM AMY resident assisted with documenting this ser vice. I saw the patient and reviewed and verified all information documented by the resident , and made modifications to such information, when appropriate. Maria De Jesus Anna presents today for initial surgeon visit. We discussed the patient's pers onal and medical history. We discussed bariatric surgery options, conduct of surgery, risks of surgery. We discussed postop expectations and possible complications. We discussed cholecystectomy and possible complications. We discussed that if this procedur e were to be complicated in any way, we may need to abort the RYGB portion of the procedure. We rev'd current comorbidities of obesity and possible changes to medications after surgery . We discussed increased fertility after wt loss surgery and need for control. She will plan to hold estrogen OCP 1 week prior to surgery and 1-2 weeks after. We discussed possible complications, and if any occur, they may need longer hospitalization and additional procedures. I have reviewed the patient's problem list and medications. I have adjusted these for meds and problems only pertinent to bariatric surgery. The bariatric pathway has been completed and been deemed appropriate for surgery. If preop for gastric bypass: NEGATIVE H .pylori status, script sent for peridex mouth wash for 5 days prior to surgery The patient will be on a liver shrinking - partial meal replacement diet for 2 wk(s) prior to surgery. They will do clear liquids on the day prior to surgery- drinking an electrolyte drink at 7-8pm prior to surgery and another electrolyte drink 4hours before reporting to the hospital. They should be NPO from 3hours before reporting to the hospital. I spent 45 min speaking with the pt and family, >50% of this was spent counseling about guanako anoop. Kenan Norton MD Electronically signed on 08/10/2018 at 2:52 PM Kenan Norton MD. Rosalie Weathers M D - 08/10/2018 10:00 AM PDT BARIATRIC SURGERY INITIAL SURGEON VISIT DATE OF VISIT: 08/10/18 HISTORY: Maria De Jesus Anna is a 27 y.o. female who has failed prior attempts at sustained di etary/medical weight loss and desires surgical weight loss in order to "lose 100 pounds and be more active and healthy". Her obesity related medical conditions include: DM2, GERD, HTN, HLD, LVH, and MEHUL, all of which may improve with bariatric surgery. The patient presents today for discussion about bariatric surgery. We discussed surgical op tions, including laparoscopic sleeve gastrectomy and laparoscopic RYGB. She has been through the prescribed screening protocols as defined by the [facility] bariatric program including medic al, psychiatric and nutrition evaluations and meets criteria for surgery. The patient has d one extensive research and selected the laparoscopic RYGB as her procedure of choice. I discussed with the patient that based on a current BMI of 52.9 (174.5kg,384 lbs), I couns eled the patient that the goals of surgery would be the reduction of this weight by 20-35% o r 75 - 135 lbs at one year post op. The patient understands the critical role that strict adherence to a diet and exercise prog mata will play in reaching this goal. She expresses willingness to comply with the post-oper ative program, including adherence to diet and exercise recommendations. Pt is currently staying active with water aerobics. Pt has chronic back pain and plantar fa sciitis, so she has difficulty with other activities. Patient also has history significant for RUQ pain and was evaluated for laparoscopic cholec ystectomy by my colleague Dr. Wheeler. Her plan was to wait and have cholecystectomy at the time of bariatric surgery. We reviewed this plan today and the patient desires cholecystect eber. She has nearly daily symptoms and had reproduction of RUQ pain with administration of C CK. Past Medical History: Diagnosis Date Asthma GERD (gastroesophageal reflux disease) HTN (hypertension) 2017 LVH (left ventricular hypertrophy) Shortness of breath Sleep apnea Type 2 diabetes mellitus (HCC) Past Surgical History Procedure Laterality Date Knee surgery Left Current Outpatient Prescriptions Medication Sig acetaminophen 325 mg oral tablet Take 2 tablets by mouth every six hours as needed for pain. Cut tablet into small pieces. Do not crush. beclomethasone (QVAR) 40 mcg/actuation inhalation aerosol Inhale 1 puff two times daily . cholecalciferol (Vitamin D3) (VITAMIN D3) 2,000 unit oral capsule Take 1 capsule by once daily. cyanocobalamin 1,000 mcg/mL injection solution Inject 1,000 mcg under the skin (SUBC) e very thirty days. ergocalciferol 50,000 unit oral capsule Take 1 capsule by mouth every seven days. For 1 2 weeks Indications: Vitamin D Deficiency (High Dose Therapy) glycerin (ADULT) rectal suppository Unwrap and insert 1 suppository rectally once daily as needed for constipation. HYDROcodone-acetaminophen 7.5-325 mg oral tablet Take by mouth. metFORMIN 1,000 mg oral tablet Take by mouth. MULTIVITAMIN ORAL Take by mouth. norgestimate-ethinyl estradiol (TRI-PREVIFEM (28) ORAL) Take by mouth. omeprazole 20 mg oral capsule,delayed release(DR/EC) Take 1 capsule by mouth once daily in the morning for 90 days. Open the capsule and mix into sugar-free liquid or yogurt. ondansetron ODT 4 mg oral tablet,disintegrating Dissolve 1 tablet on tongue every six h ours as needed for nausea/vomiting. pantoprazole 20 mg oral tablet,delayed release (DR/EC) Take 1 tablet by mouth two times daily. Indications: gastroesophageal reflux disease polyethylene glycol 17 gram/dose oral powder Dissolve 17g (1 capful) in at least 4 ounc es of fluid and drink once daily as needed for constipation. propranolol 40 mg oral tablet Take by mouth. Ranitidine HCl 150 mg oral capsule 1 capsule by mouth 1-2 times per day as needed for b reakthrough reflux symptoms riboflavin (vitamin B2) (VITAMIN B-2) 100 mg oral tablet Take 100 mg by mouth once alan y. simethicone chew 80 mg oral tablet,chewable Chew and swallow 1 tablet four times daily as needed for gas/bloating. topiramate 25 mg oral tablet Take 1 tab daily for a week, then increase as instructed t o 2 tabs twice a day ursodiol 300 mg oral capsule Take 1 capsule by mouth two times daily. Start taking two weeks after your surgery. No current facility-administered medications for this visit. Allergies Allergen Reactions Ibuprofen Hives Benzonatate Rash Depakote [Divalproex Sodium] Suicidal Ideation Doxycycline Rash Percocet [Oxycodone-Acetaminophen] Nausea and Vomiting Evans Oil Hives and Nausea and Vomiting Seroquel [Quetiapine Fumarate] Suicidal Ideation Social [facility]/19/2018 (see media): CHEST 2 VIEWS 02/06/2018: HISTORY: Preoperative for noncoronary cardiac surgery. COMPARISON: None. FINDINGS: The cardiomediastinal contour is normal. The lungs are clear. There is no pleural effusio n or pneumothorax. There is no pulmonary edema. The bones are intact. IMPRESSION: Clear lungs. ECG 11/10/2017 - Sinus rhythm. HR 72. Probable left ventricular hypertrophy- ABNORMAL ECG (I personally reviewed tracing) REVIEW OF SYSTEMS: All 14 systems reviewed and negative except as noted above. PHYSICAL EXAMINATION: BP 143/79 (BP Location: Left upper arm, Patient Position: Sitting) | Pulse 75 | Temp 36.8 C (98.2 F) (Oral) | Resp 16 | Ht 1.816 m (5' 11.5") | Wt 174.5 kg (384 lb 11.2 oz) | BMI 52.91 kg/m | BSA 2.97 m GENERAL: Well nourished, well developed and in no apparent distress, alert and active. HEENT: Grossly within normal limits. NECK: Supple, full range of motion. SKIN: Nystatin powder under pannus, minimal rash present CHEST: Respirations even and unlabored. CARDIAC: Extremities warm and well perfused. ABDOMEN: Obese but soft, RUQ fullness and tenderness on exam, nondistended, no mass, no hep atosplenomegaly. GROINS/: Deferred. EXTREMITIES: No edema, normal range of motion. NEUROLOGIC: Moves all extremities spontaneously. No apparent neurologic deficits. Cranial nerves 2-12 grossly intact. Gait symmetric and age appropriate. ASSESSMENT:: A(n) 27 y.o. female who meets and or exceeds NIH criteria for morbid obesity a nd comorbidities related to obesity including DM2, GERD, HTN, LVH, and MEHUL which may be impr karen with bariatric surgery. She also has nearly daily RUQ abdominal pain, reproduction of p ain with CCK administration, and RUQ tenderness, suggestive of chronic cholecystitis and req uires cholecystectomy. PLAN: - Proceed with laparoscopic RYGB, lap latricia with possible IOC, and EGD - We will plan to start with lap latricia and if there are any complications at the time of ch olecystectomy, we will not proceed with laparoscopic bypass. Pt understands the need for saf ety in the OR and possibility of needing two procedures if gallbladder has complications. DISCUSSION: A full PARQ session was held. We had a lengthy discussion regarding laparoscopi c gastric bypass verses sleeve gastrectomy. The risks of both procedures were discussed and include but are not limited to , myocardial infarction, stroke, bleeding, infection, an astomotic leak, anastomotic stricture, gastric conduit torsion, gastric conduit stenosis, de velopment or worsening of gastroesophageal reflux disease, DVT/PE, injury to bowel or other structures upon entering the abdomen, conversion to an open procedure, internal hernia, inci sional hernia especially if converted to an open procedure, bowel obstruction, chronic nause a, and chronic nutritional/vitamin deficiencies despite supplementation. In addition, the ri sk of poor or no weight loss was discussed. The patient s expected weight loss of approxim ately 50-60% of excess body weight for sleeve gastrectomy and 50-70% for gastric bypass was calculated for this patient s height and current weight, along with the fact that there is a wide range of weight loss results after bariatric surgery. Rare patients do not lose much weight at all after bariatric surgery, and this variability is thought to be due to genetic differences among patients that are not yet fully understood. I quoted an approximate overa ll 7-8% risk of all ximena-operative complications in the ximena-operative period, a 1-5% risk o f serious ximena-operative complications, a 4-5% rate of reoperation over the [employer] (i.e. years), as well as other late complications that may or may not require operation or other i ntervention. I stressed that all complication rates and outcomes were estimates only. The pa danielle appeared to understand, was given an opportunity to ask questions, and agrees to proce ed. We discussed that sleeve gastrectomy does not treat GERD and can, in fact,worsen heartburn/ GERD. We discussed at length that some patients will experience worsening GERD symptoms and rarely severe, unrelenting symptoms requiring additional surgery. We discussed increased fertility after wt loss surgery and need for control. We discu ssed that before 18 months after surgery is at risk for defects and can sign ificantly interfere with weight loss trajectory. We discussed possible complications, and if any occur, they may need longer hospitalization and additional procedures. We discussed the specific complications as outlined above, specifically addressing the fact that leak rates may be higher for sleeve gastrectomy than gastric bypass, and may approach 5%. We reviewed the [facility] consent form. We discussed that we did not cover all possible risks and outcomes, but that I have provided the patient with a summary of the most common and im portant risks. We discussed the possibility of blood transfusion or liver biopsy with attend ant risks, the need for sedation and anesthesia with attendant risks that would be reviewed in detail with the anesthesiologists, the possibility that observers may be present and phot ographs may be taken in the operating room for teaching purposes, and that all of observers and photographs will be compliant with HIPPA. We discussed the fact that fellows and residen ts would be involved in intra-operative and post-operative care but that I will be the prima ry surgeon, present for the entire procedure, and manage and supervise all care delivered. W e discussed the fact that if we encounter anything unexpected in the operating room (for exa mple cirrhosis or tumors) that I would adjust the operative plan accordingly based on my bes t judgment. The patient appeared to understand, was given an opportunity to ask questions, a nd agrees to proceed. Pt was seen and evaluated with Dr. Norton, who agrees with above. Rosalie Forman MD General Surgery, R5 Pager # [phone] documented in this e ncounter Plan of Treatment +--------+ + + + + | Date | Type | Specialty | Care Team | Description | +--------+ + + + + | 11/17/ | Video/TeleH | Pain Management | Florencio Lockett G, | | | 2019 | ealth-Sched | | PhD [address] | | | | uled | | [place], [place] | | | | | | [address] | | | | | | [phone] | | | | | | | | +--------+ + + + + | 12/01/ | Video/TeleH | Pain Management | Florencio Lockett, | | | 2019 | ealth-Sched | | PhD [address] | | | | uled | | [place], [place] | | | | | | [address] | | | | | | [phone] | | | | | | | | +--------+ + + + + | 01/06/ | Office | Plastic Surgery | Kuldip Harrell MD | | | 2019 | Visit | | [address] | | | | | | [place], [place] | | | | | | [address] | | | | | | [phone] | | | | | | | | +--------+ + + + + documented as of this encounter Visit Diagnoses + + | Diagnosis | + + | Morbid obesity with BMI of 50.0-59.9, adult ([facility]) - Primary | + + | Diabetes mellitus treated with oral medication ([facility]) | + + | Gastroesophageal reflux disease, esophagitis presence not specified | + + | Asthma, unspecified asthma severity, unspecified whether complicated, unspecified | | whether persistent | + + | Hypertension, unspecified type | + + | Hyperlipidemia, unspecified hyperlipidemia type | + + | PCOS (polycystic ovarian syndrome) Polycystic ovaries | + + | Chronic cholecystitis | + + documented in this encounter
--- OUTSIDE RECORDS SUMMARY | ~2019-11-17 | XMS | Encounter Summary ---
Demographics + + + | Address | [address] | | | [place] [address] | + + + | Home Phone | | + + + | Preferred Language | Unknown | + + + | Marital Status | | + + + | Druze Affiliation | NRP | + + + | Race | White | + + + | Ethnic Group | Not or | + + + Author + + + | Author | [facility] | + + + | Organization | [facility] | + + + | Address | Unknown | + + + | Phone | Unavailable | + + + Support + + +---------+ + | Name | Relationship | Address | Phone | + + +---------+ + | Jeovanny Hernández | ECON | Unknown | | + + +---------+ + Care Team Providers + +------+ + | Care Operations Analyst Name | Role | Phone | [...] + +--------+ + + + + | Canceled | | Gastroenterol | Diagnoses | Petcu, | Gas Endo | | | | ogy | | Aura, ACNP | [facility] [address] | | | | | Gastroesopha | [address] | [address] | | | | | geal reflux | [place] | [place] | | | | | disease, | Rd | [address] | | | | | esophagitis | [place], [place] | floor | | | | | presence not | [address] | [place], [place] | | | | | specified | Phone: | [phone] | | | | | Procedures | [phone] | Phone: | | | | | CONSULT TO | Fax: | [phone] | | | | | GI PROCEDURE | [phone] | Fax: | | | | | UNIT: 24 HR | | [phone] | | | | | PH | | | + +--------+ + + + + PROC - Dept/Practice Procedure (Routine) +--------+--------+ + + + + | Status | Reason | Specialty | Diagnoses / | Referred By | Referred To | | | | | Procedures | Contact | Contact | +--------+--------+ + + + + | Closed | | Gastroenterol | Diagnoses | Petcu, | Gas Endo | | | | ogy | | Aura, ACNP | [facility] [address] | | | | | Gastroesopha | [address] | [address] | | | | | geal reflux | [facility] | [address] [facility] | | | | | disease, | Rd | Health and | | | | | esophagitis | [place], [place] | Healing, | | | | | presence not | [address] | [address] | | | | | specified | Phone: | [place], [place] | | | | | Procedures | [phone] | [address] | | | | | CONSULT TO | Fax: | Phone: | | | | | GI PROCEDURE | [phone] | [phone] | | | | | UNIT: | | Fax: | | | | | ESOPHAGEAL | | [phone] | | | | | MANOMETRY | | | | | | | CONSULT TO | | | | | | | GI PROCEDURE | | | | | | | UNIT: | | | | | | | ESOPHAGEAL | | | | | | | MANOMETRY W | | | | | | | 24 HR PH RI | | | | | | | ESOPHAGEAL | | | | | | | MOTILITY | | | | | | | STUDY | | | | | | | W/INTERP AND | | | | | | | REPORT RI | | | | | | | G-ESOPH | | | | | | | REFLX TST | | | | | | | W/ELECTROD | | | +--------+--------+ + + + + Encounter Details +--------+ + + + + | Date | Type | Department | Care Team | Description | +--------+ + + + + | 11/23/ | Equipment Maintenance Technician | Digestive Health | Petcu, Aura, ACNP | Gastroesophageal | | 2018 | | Center at [facility] [address] | [address] | reflux disease, | | | [address] | [address] [place], | esophagitis presence | | | | for Health and | [place] [address] | not specified | | | | [facility] [address] | [phone] | (Primary Dx) | | | | [place], [place] | | | | | | [address] | | | | | | [phone] | | | +--------+ + + + [...] Florencio Lockett, | | | 2019 | ealth-Jody | | PhD [address] | | | | ray | | [place], [place] | | | | | | [address] | | | | | | [phone] | | | | | | | | +--------+ + + + + | 12/01/ | Video/TeleH | Pain Management | Florencio Lockett, | | | 2019 | ealth-Sched | | PhD [address] | | | | uled | | [place], [place] | | | | | | [address] | | | | | | [phone] | | | | | | | | +--------+ + + + + | 01/06/ | Office | Plastic Surgery | Kuldip Harrell MD | | | 2019 | Visit | | [address] | | | | | | [place], [place] | | | | | | [address] | | | | | | [phone] | | | | | | | | +--------+ + + + + documented as of this encounter Visit Diagnoses + + | Diagnosis | + + | Gastroesophageal reflux disease, esophagitis presence not specified - Primary | + + documented in this encounter"
--- OUTSIDE RECORDS SUMMARY | ~2019-11-17 | XMS | Encounter Summary ---
Demographics + + + | Address | [address] | | | [place] [address] | + + + | Home Phone | | + + + | Preferred Language | Unknown | + + + | Marital Status | | + + + | Tenriism Affiliation | NRP | + + + | Race | White | + + + | Ethnic Group | Not or | + + + Author + + + | Author | [facility] | + + + | Organization | [facility] | + + + | Address | Unknown | + + + | Phone | Unavailable | + + + Support + + +---------+ + | Name | Relationship | Address | Phone | + + +---------+ + | Jeovanny Hernández | ECON | Unknown | | + + +---------+ + Care Team Providers + +------+ + | Care Member Of Technical Staff Name | Role | Phone | + +------+ + | Alisha Stovall PA-C | PCP | | + +------+ + Encounter Details +--------+ + + + + | Date | Type | Department | Care Team | Description | +--------+ + + + + | 06/30/ | Abstract | Digestive Health | Kenan Norton, | | | 2019 | | Center at [facility] [address] | MD [address] | | | | | [address] [place] | [facility] [place] | | | | | for Health and | [address] | | | | | [place], [address] | [phone] | | | | | [place], [place] | | | | | | [address] | | | | | | [phone] | | | +--------+ + + + [...] | | | | uled | | [place], [place] | | | | | | [address] | | | | | | [phone] | | | | | | | | +--------+ + + + + | 12/01/ | Video/TeleH | Pain Management | Florencio Lockett, | | | 2019 | ealth-Sched | | PhD [address] | | | | uled | | [place], [place] | | | | | | [address] | | | | | | [phone] | | | | | | | | +--------+ + + + + | 01/06/ | Office | Plastic Surgery | Kuldip Harrell MD | | | 2020 | Visit | | [address] | | | | | | [place], [place] | | | | | | [address] | | | | | | [phone] | | | | | | | | +--------+ + + + + documented as of this encounter Visit Diagnoses Not on filedocumented in this encounter"
--- OUTSIDE RECORDS SUMMARY | ~2019-11-17 | XMS | Encounter Summary ---
Demographics + + + | Address | [address] | | | [place] [address] | + + + | Home Phone | | + + + | Preferred Language | Unknown | + + + | Marital Status | | + + + | Yazdanism Affiliation | NRP | + + + [...] Team Providers + +------+ + | Care Plastic Extrusion Operator Name | Role | Phone | [...] Description | +--------+--------+ + + + | 04/10/ | Refill | Digestive Health | Jody Watson, ACNP | Refill Request | | 2019 | | Center [place] [address] [address] | [address] | | | | | [address] [facility] | [facility], | | | | | for [facility] and | [place] [address] | | | | | [place] [address] | [phone] | | | | | [place], [place] | | | | | | [address] | | | | | | [phone] | | | +--------+--------+ + + + [...] | | | | ray | | [place], [place] | | | | | | [address] | | | | | | [phone] | | | | | | | | +--------+ + + + + | 12/01/ | Video/TeleH | Pain Management | Florencio Lockett, | | | 2019 | ealth-Sched | | PhD [address] | | | | uled | | [place], [place] | | | | | | [address] | | | | | | [phone] | | | | | | | | +--------+ + + + + | 01/06/ | Office | Plastic Surgery | Kuldip Harrell MD | | 2019 | Visit | | [address] | | | | | | [place], [place] | | | | | | [address] | | | | | | [phone] | | | | | | | | +--------+ + + + + documented as of this encounter Visit Diagnoses Not on filedocumented in this encounter"
--- OUTSIDE RECORDS SUMMARY | ~2019-11-17 | XMS | Encounter Summary ---
Demographics + + + | Address | [address] | | | [place] [address] | + + + | Home Phone | | + + + | Preferred Language | Unknown | + + + | Marital Status | | + + + | Baptism Affiliation | NRP | + + + | Race | White | + + + | Ethnic Group | Not or | + + + Author + + + | Author | [facility] | + + + | Organization | [facility] | + + + | Address | Unknown | + + + | Phone | Unavailable | + + + Support + + +---------+ + | Name | Relationship | Address | Phone | + + +---------+ + | Jeovanny Hernández | ECON | Unknown | | + + +---------+ + Care Team Providers + +------+ + | Care Policy Checker Name | Role | Phone | + [...] + + + + | 04/12/ | Abstract | Digestive Health | Clinic, Surgery | Medical Records | | 2018 | | Center [place] [address] | | Review | | | | [address] [facility] | | | | | | for Health and | | | | | | Healing, [address] | | | | | | [place], [place] | | | | | | [address] | | | | | | [phone] | | | +--------+ + + + [...] | | | | uled | | [place], [place] | | | | | | [address] | | | | | | [phone] | | | | | | | | +--------+ + + + + | 12/01/ | Video/TeleH | Pain Management | Florencio Lockett, | | | 2019 | ealth-Sched | | PhD [address] | | | | uled | | [place], [place] | | | | | | [address] | | | | | | [phone] | | | | | | | | +--------+ + + + + | 01/06/ | Office | Plastic Surgery | Kuldip Harrell MD | | | 2020 | Visit | | [address] | | | | | | [place], [place] | | | | | | [address] | | | | | | [phone] | | | | | | | | +--------+ + + + + documented as of this encounter Visit Diagnoses Not on filedocumented in this encounter"
--- OUTSIDE RECORDS SUMMARY | ~2019-11-17 | XMS | Encounter Summary ---
Demographics + + + | Address | [address] | | | [place] [address] | + + + | Home Phone | | + + + | Preferred Language | Unknown | + + + | Marital Status | | + + + | Judaism Affiliation | NRP | + + + [...] Team Providers + +------+ + | Care Burglary Investigator Name | Role | Phone | + [...] | | | Surg Ch[facility]2 | Ch[facility] [address] | | | | | | [address] | | | | | | Ave Center | Center for | | | | | | for Health | Health and | | | | | | and Healing, | Healing, | | | | | | Building [address] | [address] | | | | | | [place], | [place], [place] | | | | | | [place] | [address] | | | | | | [address] | Phone: | | | | | | Phone: | [phone] | | | | | | [phone] | Fax: | | | | | | Fax: | [phone] | | | | | | [phone] | | +--------+--------+ + + + + Encounter Details +--------+---------+ + + + | Date | Type | Department | Care Team | Description | +--------+---------+ + + + | 10/26/ | Office | Digestive Health | Lisa Medina RD | S/P gastric bypass | | 2019 | Visit | Center at [facility] [address] | [address] | (Primary Dx); Morbid | | | | [address] | [place], | obesity (HCC) | | | | for Health and | [place] [address] | | | | | [place] [address] | [phone] | | | | | [place], [place] | | | | | | [address] | | | | | | [phone] | | | +--------+---------+ + + + [...] documented as of this encounter Progress Notes Lisa Medina, RD - 10/26/2018 9:00 AM PDT Nutrition Counseling: Post-op Bariatric Surgery Follow-Up Patient referred by: Kenan Norton MD Documented time of visit: 9:42 to 10:11 (29 minutes [id number] with patient) Surgery: Gastric Bypass and Cholecystectomy Date of Surgery: 09/24/18 Subjective: Sick of living off of Crystal Light and yogurt. Tired. Constantly sipping but u nable to get 64oz fluid Any reported changes: nausea, constipation - reluctant to do a suppository. Discussed with MD Tolerating Bariatric Diet: limited options at this time. It sounds like she tolerates foods well when eating very small amounts. This has been hard for her to do because she has been eating the same things over and over. When she gets to eat something new she tends to overdo it. Current Physical Activity: not addressed Changes in Diabetes Medications since surgery: not addressed Testing blood glucose: not addressed Objective: Ht Readings from Last 1 Encounters: 10/02/18 1.803 m (5' 11") Wt Readings from Last 2 Encounters: 10/26/18 157.5 kg (347 lb 3.2 oz) 10/02/18 165.1 kg (364 lb) 09/24/18 168.1 kg (370 lb 9.5 oz) BMI: 48.4 Weight change since surgery: lost ~23lbs PMHx: Past Medical History: Diagnosis Date Asthma Fatty liver per CT scan GERD (gastroesophageal reflux disease) HTN (hypertension) 2017 LVH (left ventricular hypertrophy) The left ventricle is normal in size, wall thickness and systolic function EF 55-60%. ECHO Shortness of breath Sleep apnea Type 2 diabetes mellitus (HCC) Food logs: No Food choices: yi yogurt, imitation crab, tuna, cream of mushroom soup Fluid choices: water and crystal light Supplementation: reported to MD that she is not taking her vitamins pre recommendations to focus on fluids and protein. Will f/u with guidance about introducing vitamins. Assessment: Experiencing both physical and emotional challenges. Constipation likely affect ing intake. Encouraged her to focus on managing this. Reassured her that the emotional faye es that come with loss of food as a way to manage emotions is normal. Expect the next few we eks (at least) to continue to be challenging as she works through this. Encouraged her to co denisha to see therapist for support. appears to be supportive (there is fast food in the house for him and the kids but it appears that he was unaware of what her reaction woul d be to being around these foods.) Following Bariatric Diet Protocol: Yes Meeting protein goals: No Meeting fluid goals: No Fluids from meals: Yes Plan: Reviewed nutrition goals after bariatric surgery. Aim for 64 ounces of fluid and 60-80 grams of protein per day. - Continue to work towards 64oz fluid goal - Continue to try to eat regularly but really focus on keeping portions small to maximize t olerance. - Work with family to minimize frustrations around foods she is exposed to. Continue to wor k with counselor for support. Follow up at 3 months post-op or sooner if no improvement in symptoms. Lisa Medina RD, CNSC, LD [facility] Bariatrics [phone] documented in this enco unter Plan of Treatment +--------+ + + + + | Date | Type | Specialty | Care Team | Description | +--------+ + + + + | 11/17/ | Video/TeleH | Pain Management | Florencio Lockett, | | | 2019 | ealth-Sched | | PhD [address] | | | | uled | | [place], [place] | | | | | | [address] | | | | | | [phone] | | | | | | | | +--------+ + + + + | 12/01/ | Video/TeleH | Pain Management | Florencio Lockett, | | | 2019 | ealth-Sched | | PhD [address] | | | | uled | | [place], [place] | | | | | | [address] | | | | | | [phone] | | | | | | | | +--------+ + + + + | 01/06/ | Office | Plastic Surgery | Kuldip Harrell MD | | | 2019 | Visit | | [address] | | | | | | [place], [place] | | | | | | [address] | | | | | | [phone] | | | | | | | | +--------+ + + + + documented as of this encounter Procedures + +--------+ + + + | Procedure Name | Priori | Date/Time | Associated Diagnosis | Comments | | | ty | | | | + +--------+ + + + | CA MNT RE-ASSESSMNT | Routin | 10/26/2018 | S/P gastric bypass | | | X15MIN | e | 2:50 PM | Morbid obesity | | | [...]
--- OUTSIDE RECORDS SUMMARY | ~2019-11-17 | XMS | Encounter Summary ---
Demographics + + + | Address | [address] | | | [place] [address] | + + + | Home Phone | | + + + | Preferred Language | Unknown | + + + | Marital Status | | + + + | Sabianism Affiliation | NRP | + + + | Race | White | + + + | Ethnic Group | Not or | + + + Author + + + | Author | [facility] | + + + | Organization | [facility] | + + + | Address | Unknown | + + + | Phone | Unavailable | + + + Support + + +---------+ + | Name | Relationship | Address | Phone | + + +---------+ + | Jeovanny Hernández | ECON | Unknown | | + + +---------+ + Care Team Providers + +------+ + | Care Rag Baler Name | Role | Phone | + +------+ + | Alisha Sotvall PA-C | PCP | | + +------+ + Reason for Visit AUTH/CERT +--------+--------+ + + + + | Status | Reason | Specialty | Diagnoses / | Referred By | Referred To | | | | | Procedures | Contact | Contact | +--------+--------+ + + + + | | | | Procedures | | | | | | | NH | | | | | | | ESOPHAGEAL | | | | | | | MOTILITY | | | | | | | STUDY | | | | | | | W/INTERP AND | | | | | | | REPORT NH | | | | | | | G-ESOPH | | | | | | | REFLX TST | | | | | | | W/ELECTROD | | | +--------+--------+ + + + + Encounter Details +--------+---------+ + + + | Date | Type | Department | Care Team | Description | +--------+---------+ + + + | 04/12/ | Office | Digestive Health | Kenan Norton, | S/P gastric bypass | | 2019 | Visit | Center at [facility] [address] | MD [address] | (Primary Dx) | | | | [address] | [place], [place] | | | | | [facility] Health and | [address] | | | | | [facility], [facility] [address] | [phone] | | | | | [place], [place] | | | | | | [address] | | | | | | [phone] | | | +--------+---------+ + + + [...] + + + | Blood Pressure | 119/72 | 04/12/2019 2:21 PM | | | | | PST | | + + + + + | Pulse | 68 | 04/12/2019 2:21 PM | | | | | PST | | + + + + + | Temperature | 36.3 C (97.4 F) | 04/12/2019 2:21 PM | | | | | PST | | + + + + + | Respiratory Rate | 22 | 04/12/2019 2:21 PM | | | | | PST | | + + + + + | Oxygen Saturation | 96% | 04/12/2019 2:21 PM | | | | | PST | | + + + + + | Inhaled Oxygen | - | - | | | Concentration | | | | + + + + + | Weight | 113.4 kg (250 lb) | 04/12/2019 2:21 PM | | | | | PST | | + + + + + | Height | 180.3 cm (5' 11") | 04/12/2019 2:21 PM | | | | | PST | | + + + + + | Body Mass Index | 34.87 | 04/12/2019 2:21 PM | | | | | PST [...] documented as of this encounter Progress Notes Kenan Norton MD - 04/12/2019 3:30 PM PSTFormatting of this note might be different fr om the original. BARIATRIC SURGERY POSTOP FOLLOW UP DATE OF VISIT: 04/12/19 REASON FOR VISIT: 6 month follow-up. DATE OF SURGERY: September 24, 2018 HISTORY: Maria De Jesus Anna is a(n) 28 y.o. female with history of Past Medical History: Diagnosis Date Asthma Fatty liver GERD (gastroesophageal reflux disease) HTN (hypertension) 2017 LVH (left ventricular hypertrophy) Shortness of breath Sleep apnea Type 2 diabetes mellitus (HCC) Here for postop follow-up s/p LRYGB and cholecystectomy INTERVAL HISTORY: Pt has lost 134 lbs since preop visit. 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 F who is s/p LRYGB. Continues to not be thriving. Epiga stric pain, nausea, gagging, and low po intake. Low energy, bradycardia, and lightheadedness . Unfortunately, studies to date have not demonstrated a clear anatomic reason for her sympt oms. -- B12 shot given in clinic today, discussed importance of resuming vitamins -- Nutrition labs today -- She has upcoming cards eval in Apr, f/u -- F/u Manometry that she completes today -- Will have patient return for UGI with SBFT -- May need surgical feeding tube -- Continue IVF, ok to do 1L twice a week, pt is often not going because it is too much -- Will bring her back to clinic manjeet for UGI and f/u visit I spent a total of 30 minutes face to face with the patient With an additional 10 minutes reviewing records and care coordination. Kenan Norton MD Electronically signed on 04/12/2019 at 2:55 PM Kenan Norton MD. documented in this e ncounter Plan of Treatment +--------+ + + + + | Date | Type | Specialty | Care Team | Description | +--------+ + + + + | 11/17/ | Video/TeleH | Pain Management | Florencio Lockett, | | | 2019 | ealth-Sched | | PhD [address] | | | | uled | | [place], [place] | | | | | | [address] | | | | | | [phone] | | | | | | | | +--------+ + + + + | 12/01/ | Video/TeleH | Pain Management | Florencio Lockett, | | | 2019 | ealth-Sched | | PhD [address] | | | | uled | | [place], [place] | | | | | | [address] | | | | | | [phone] | | | | | | | | +--------+ + + + + | 01/06/ | Office | Plastic Surgery | Kuldip Harrell MD | | 2019 | Visit | | [address] | | | | | | [place], [place] | | | | | | [address] | | | | | | [phone] | | | | | | | | +--------+ + + + + documented as of this encounter Results X-RAY UGI W SMALL BOWEL W MX SERIAL (05/03/2019 2:50 PM PST) + + | Specimen | + + | | + + + + + | Narrative | Performed At | + + + | EXAM: UGI W SMALL BOWEL W MX SERIAL HISTORY: s/p gastric bypass | [facility] | | with epigastric pain, gagging, nausea, and poor toelrance of po since | RADIOLOGY VOICE | | surgery COMPARISON: 10/16/2018. TECHNIQUE: Thick and thin | RECOGNITION 2 | | barium was administered p.o. Radiation dose reduction technique was | | | maximized where appropriate using pulsed fluoroscopy and fluoro-store | | | images. Fluoro Time: 60 sec FINDINGS: Initial galley stripper | | | radiograph demonstrates surgical sutures over the left upper abdomen | | | with surgical clips over the upper abdomen. No radiographic evidence | | | of bowel obstruction. No free air. Contrast flows through the | | | esophagus without obstruction. Decreased primary and secondary | | | peristalsis likely reflects known esophageal dysmotility, better | | | evaluated on recent manometry. Postsurgical changes of gastric | | | bypass; contrast flows quickly through the gastrojejunostomy. Contrast | | | flows quickly through the nondilated loops of small bowel without | | | obstruction. Barium tablet flows through the esophagus but is | | | delayed at the gastrojejunostomy despite additional swallows of water | | | and thick barium, both of which passed quickly adjacent to the tablet; | | | this replicated the patient's symptoms. No hiatal hernia or reflux | | | identified. Enteric contrast is questionably seen at the cecum at | | | 15 minutes, and definitely at 45 minutes. At 15 minutes, the barium | | | tablet is not seen at the gastrojejunostomy and likely passed. | | | IMPRESSION: 1. Postsurgical changes of gastric bypass. Delayed | | | passage of barium tablet at the gastrojejunostomy, which replicated | | | the patient's symptoms; the tablet passed after 15 minutes but may | | | suggest some degree of narrowing or inflammation. Otherwise, contrast | | | passes through nondilated loops of small bowel, reaching the cecum | | | between 15 and 45 minutes. 2. Esophageal dysmotility, better | | | evaluated on recent manometry. I have personally reviewed the | | | images and, if necessary, edited the report. I agree with the report | | | as now presented. Final signature: Ulises Soler MD 05/03/2019 | | | 5:31 PM Preliminary: Ulises Soler MD Dictation initiated: | | | Ulises Soler MD 05/03/2019 5:21 PM | | + + + + + | Procedure Note | + + | Service Account, [employer] Res In Interface - 05/03/2019 5:32 PM PST EXAM: UGI W SMALL | | BOWEL W MX SERIAL HISTORY: s/p gastric bypass with epigastric pain, gagging, nausea, | | and poor toelrance of po since surgery COMPARISON: 10/16/2018. TECHNIQUE: Thick and thin | | barium was administered p.o. Radiation dose reduction technique was maximized where | | appropriate using pulsed fluoroscopy and fluoro-store images. Fluoro Time: 60 sec | | FINDINGS: Initial galley stripper radiograph demonstrates surgical sutures over the left upper | | abdomen with surgical clips over the upper abdomen. No radiographic evidence of bowel | | obstruction. No free air. Contrast flows through the esophagus without obstruction. | | Decreased primary and secondary peristalsis likely reflects known esophageal | | dysmotility, better evaluated on recent manometry. Postsurgical changes of gastric | | bypass; contrast flows quickly through the gastrojejunostomy. Contrast flows quickly | | through the nondilated loops of small bowel without obstruction. Barium tablet flows | | through the esophagus but is delayed at the gastrojejunostomy despite additional | | swallows of water and thick barium, both of which passed quickly adjacent to the tablet; | | this replicated the patient's symptoms. No hiatal hernia or reflux identified. Enteric | | contrast is questionably seen at the cecum at 15 minutes, and definitely at 45 minutes. | | At 15 minutes, the barium tablet is not seen at the gastrojejunostomy and likely passed. | | IMPRESSION: 1. Postsurgical changes of gastric bypass. Delayed passage of barium | | tablet at the gastrojejunostomy, which replicated the patient's symptoms; the tablet | | passed after 15 minutes but may suggest some degree of narrowing or inflammation. | | Otherwise, contrast passes through nondilated loops of small bowel, reaching the cecum | | between 15 and 45 minutes. 2. Esophageal dysmotility, better evaluated on recent | | manometry. I have personally reviewed the images and, if necessary, edited the report. I | | agree with the report as now presented. Final signature: Ulises Soler MD 05/03/2019 | | 5:31 PM Preliminary: Ulises Soler MD Dictation initiated: Ulises Soler MD | | 05/03/2019 5:21 PM | |1. Postsurgical changes of gastric bypass. Delayed passage of barium tablet at the gastroje junostomy, which replicated the patient's symptoms; the tablet passed after 15 minutes but m ay suggest some degree of | |narrowing or inflammation. Otherwise, contrast passes through nondilated loops of small bow el, reaching the cecum between 15 and 45 minutes. | | | |2. Esophageal dysmotility, better evaluated on recent manometry. | | | |I have personally reviewed the images and, if necessary, edited the report. I agree with th e report as now presented. | | | |Final signature: Ulises Soler MD 05/03/2019 5:31 PM | |Preliminary: Ulises Soler MD | |Dictation initiated: Ulises Soler MD 05/03/2019 5:21 PM | + + + +---------+ + + | Performing | Address | City/State/Zipcode | Phone Number | | Organization | | | | + +---------+ + + | [facility] | | | | | VOICE RECOGNITION 2 | | | | + +---------+ + + PTH, SERUM (04/12/2019 3:36 PM [...] SERVICES, | | | | | | [place] [facility] | | | | | | [...] | + + + + + | [facility] | [address] | [place] [address] | | | [facility], [facility] | | | | | HEALTH + [...] INTFC | | | | determined by [facility] | | | | | | [employer]. See | | | | | | Compliance Statement B: | | | | | | [employer]/CSPerformed | | | | | | by [employer],[address] | | | | | | [facility] | | | | | | [address] | | | | | | [phone].[employer]. | | | | | | NexgateJosué MD, | | | | | | [...] [facility] | [address] | [place], [place] | | | UNIV PTH - INTFC | | [address] | | + + + + + [...] | | | | | determined by [facility] | | | | | | Laboratories. See | | | | | | Compliance Statement B: | | | | | | [employer]/CSPerformed | | | | | | by [employer],[address] | | | | | [address], [facility] [place] | | | | | | [address] | | | | | | [phone].ambreenlab. | | | | | | Josué [...] | + + + + + | [facility] | [address] | [place], [place] | | | UNIV PTH - INTFC | | [address] | | + + + + + [...] + + | [facility] | [address] | [place] [address] | | | SERVICES, CORE | PARK [...] | + + + + + | [facility] | [address] | [place] [address] | | | SERVICES, CORE | SAMMI [...] | | | | | determined by [facility] | | | | | | Laboratories. See | | | | | | Compliance Statement B: | | | | | | [employer]/CSPerformed | | | | | | by [employer] [facility],[address] | | | | | | [address] [place] [facility] [place] | | | | | | [address] | | | | | | [phone].[employer]. | | | | | | comJosué [...] [facility] | [address] | [place], [place] | | | UNIV PTH - INTFC | | [address] | | + + + + + [...] [facility] | | | (PAULIE EMMANUEL) | [email or web address],[address] | | REG UNIV | | | SERUM | [address], [facility] [place] | | PTH - INTFC | | | | [address] | | | | | | [phone].[employer]. | | | | | | [employer], Josué Lantigua MD, | | | | | | Lab. Director | | | | + + + + + + | VITAMIN E | 5.9Comment: Test | 5.5 - 18.0 mg/L | [facility] | | | (ALPHA | developed and | | REG UNIV | | | EMMANUEL), SERUM | characteristics | | PTH - INTFC | | | | determined by [facility] | | | | | | Laboratories. See | | | | | | Compliance Statement B: | | | | | | [employer]/CS | | | | + + + + + + + + | Specimen | + + | Blood - Blood | | (substance) | + + + + + + + | Performing | Address | City/State/Zipcode | Phone Number | | Organization | | | | + + + + + | [facility] | [address] | [place], [place] | | | UNIV PTH - INTFC | | [address] | | + + + + + [...] | | | | | determined by [facility] | | | | | | Laboratories. See | | | | | | Compliance Statement B: | | | | | | [employer]/CSPerformed | | | | | | by [employer],[address] | | | | | | [facility],[place] | | | | | | [address] | | | | | | [phone].[employer]. | | | | | | com, Josué Lantigua MD, | | | | | | [...] [facility] | [address] | [place], [place] | | | UNIV PTH - INTFC | | [address] | | + + + + + [...] [facility] | [address] | [place] [address] | | | SERVICES, CORE | PARK [...] | + + + + + | [facility] | [address] | [place] [address] | | | SERVICES, SPECIAL | PARK [...] | + + + + + | [facility] | [address] | [place] [address] | | | SERVICES, CORE | SAMMI [...] | | | | | determined by [employer] | | | | | | Laboratories. See | | | | | | Compliance Statement B: | | | | | | [employer]/CSPerformed | | | | | | by [employer],[address] | | | | | | [address] [facility] [place] | | | | | | [address] | | | | | | [phone].[employer]'s [employer] Cafelab. | | | | | | [facility] centerJosué MD, | | | | | [...] [facility] | [address] | [place], [place] | | | UNIV PTH - INTFC | | [address] | | + + + + + [...] | | | LABORATORY | | | [place] [place] | | | SERVICES, | | | [...] MDRD equation recommended by the National | [facility] | | Kidney Disease Education Program. Estimated [...] | + + + + + | [facility] | [address] | [place] [address] | | | [facility] | | | | | HEALTH + HEALING | | | | + + + + + documented in this encounter Visit Diagnoses + + | Diagnosis | + + | S/P gastric bypass - Primary Bariatric surgery status | + + documented in this encounter Administered Medications + +--------+ +------+------+--------+ | Medication Order | MAR | Action | Dose | Rate | Site | | | Action | Date | | | | + +--------+ +------+------+--------+ | Vitamin B12 1 Mg/ml | Given | 12/23/20 | 1 mL | | Right | | Intramuscular | | 19 16:00 | | | Arm | | | | PST | | | | + +--------+ +------+------+--------+ +---+---+ | | | +---+---+ documented in this encounter
--- OUTSIDE RECORDS SUMMARY | ~2019-11-17 | XMS | Encounter Summary ---
Demographics + + + | Address | [address] | | | [place] [address] | + + + | Home Phone [...] + + + | Author | [facility] | + + + | Organization | [facility] | + + + | Address | Unknown | + + + | Phone | Unavailable | + + + Support + + +---------+ + | Name | Relationship | Address | Phone | + + +---------+ + | Jeovanny Hernández | ECON | Unknown | | + + +---------+ + Care Team Providers + +------+ + | Care Content Analyst Name | Role | Phone | + +------+ + | Alisha Stovall PA-C | PCP | | + +------+ + Encounter Details +--------+ + + + + | Date | Type | Department | Care Team | Description | +--------+ + + + + | 04/19/ | MyChart | Digestive Health | Kenan Norton, | results to barium | | 2019 | Encounter | Center at [facility] [address] | MD [address] | | | | | [address] | [facility] [place] | | | | | for Health and | [address] | | | | | Healing, [address] | [phone] | | | | | [place], [place] | | | | | | [address] | | | | | | [phone] | | | +--------+ + + + [...] | | | | uled | | [place], [place] | | | | | | [address] | | | | | | [phone] | | | | | | | | +--------+ + + + + | 12/01/ | Video/TeleH | Pain Management | Florencio Lockett, | | | 2019 | ealth-Sched | | PhD [address] | | | | uled | | [place], [place] | | | | | | [address] | | | | | | [phone] | | | | | | | | +--------+ + + + + | 01/06/ | Office | Plastic Surgery | Kuldip Harrell MD | | | 2020 | Visit | | [address] | | | | | | [place] | | | | | | [address] | | | | | | [phone] | | | | | | | | +--------+ + + + + documented as of this encounter Visit Diagnoses Not on filedocumented in this encounter"
--- OUTSIDE RECORDS SUMMARY | ~2019-11-17 | XMS | Encounter Summary ---
Demographics + + + | Address | [address] | | | [place] [address] | + + + | Home Phone | | + + + | Preferred Language | Unknown | + + + | Marital Status | | + + + | Shinto Affiliation | NRP | + + + [...] Team Providers + +------+ + | Care Assistant Store Director Name | Role | Phone | + +------+ + | Alisha Stovall PA-C | PCP | | + +------+ + Encounter Details +--------+ + + + + | Date | Type | Department | Care Team | Description | +--------+ + + + + | 08/11/ | Telephone | Digestive Health | Kenan Norton, | | | 2019 | | Center at [facility] [address] | MD [address] | | | | | [address] | [place], [place] | | | | | [facility] Health and | [address] | | | | | [place], [address] | [phone] | | | | | [place], [place] | | | | | | [address] | | | | | | [phone] | | | +--------+ + + + [...] Florencio Lockett, | | | 2019 | silviano-Sched | | PhD [address] | | | | uled | | [place], [place] | | | | | | [address] | | | | | | [phone] | | | | | | | | +--------+ + + + + | 12/01/ | Video/TeleH | Pain Management | Florencio Lockett, | | | 2019 | ealth-Sched | | PhD [address] | | | | uled | | [place], [place] | | | | | | [address] | | | | | | [phone] | | | | | | | | +--------+ + + + + | 01/06/ | Office | Plastic Surgery | Kuldip Harrell MD | | | 2020 | Visit | | [address] | | | | | | [place], [place] | | | | | | [address] | | | | | | [phone] | | | | | | | | +--------+ + + + + documented as of this encounter Visit Diagnoses Not on filedocumented in this encounter"
--- OUTSIDE RECORDS SUMMARY | ~2019-11-17 | XMS | Encounter Summary ---
Demographics + + + | Address | [address] | | | [place] [address] | + + + | Home Phone [...] Team Providers + +------+ + | Care Communications Senior Associate Name | Role | Phone | + [...] Description | +--------+--------+ + + + | 10/03/ | Refill | Outpatient Retail | Lucero Arias MD | Refill Request | | 2020 | | [facility] | [address] | | | | | [address] | [address], | | | | | [place], [place] | [place] [address] | | | | | [address] | [phone] | | | | | [phone] | | | +--------+--------+ + + + [...] [address] | | | | [address] | | [facility] [place] | | | | | | [address] | | | | | | [phone] | | | | | | | | +--------+ + + + + | 12/01/ | Video/TeleH | Pain Management | Florencio Lockett G, | | | 2019 | ealth-Sched | | PhD [address] | | | | uled | | [place], [place] | | | | | | [address] | | | | | | [phone] | | | | | | | | +--------+ + + + + | 01/06/ | Office | Plastic Surgery | Kuldip Harrell MD | | | 2019 | Visit | | [address] | | | | | | [place], [place] | | | | | | [address] | | | | | | [phone] | | | | | | | | +--------+ + + + + documented as of this encounter Visit Diagnoses Not on filedocumented in this encounter"
--- OUTSIDE RECORDS SUMMARY | ~2019-11-17 | XMS | Encounter Summary ---
Demographics + + + | Address | [address] | | | [place] [address] | + + + | Home Phone | | + + + | Preferred Language | Unknown | + + + | Marital Status | | + + + | Anabaptism Affiliation | NRP | + + + | Race | White | + + + | Ethnic Group | Not or | + + + Author + + + | Author | [facility] | + + + | Organization | [facility] | + + + | Address | Unknown | + + + | Phone | Unavailable | + + + Support + + +---------+ + | Name | Relationship | Address | Phone | + + +---------+ + | Jeovanny Hernández | ECON | Unknown | | + + +---------+ + Care Team Providers + +------+ + | Care Medical Assistant Dermatology Name | Role | Phone | + +------+ + | Alisha Stovall PA-C | PCP | | + +------+ + Reason for Visit + + + | Reason | Comments | + + + | Refill Request | | + + + | Refill Request | | + + + | Refill Request | | + + + Encounter Details +--------+ + + + + | Date | Type | Department | Care Team | Description | +--------+ + + + + | 11/12/ | Telephone | Digestive Health | Kenan Norton, | Refill Request; | | 2019 | | Center at [facility] [address] | MD [address] | Refill Request; | | | | [address] | [place], [place] | Refill Request | | | | for Health and | [address] | | | | | [facility] | [phone] | | | | | [place], [place] | | | | | | [address] | | | | | | [phone] | | | +--------+ + + + [...] | | | | [address] | | [place], [place] | | | | | | [address] | | | | | | [phone] | | | | | | | | +--------+ + + + + | 12/01/ | Video/TeleH | Pain Management | Florencio Lockett, | | | 2019 | ealth-Sched | | PhD [address] | | | | uled | | [place], [place] | | | | | | [address] | | | | | | [phone] | | | | | | | | +--------+ + + + + | 01/06/ | Office | Plastic Surgery | Kuldip Harrell MD | | | 2019 | Visit | | [address] | | | | | | [place], [place] | | | | | | [address] | | | | | | [phone] | | | | | | | | +--------+ + + + + documented as of this encounter Visit Diagnoses + + | Diagnosis | + + | Morbid obesity (HCC) Morbid obesity | + + documented in this encounter"
--- OUTSIDE RECORDS SUMMARY | ~2019-11-17 | XMS | Encounter Summary ---
Demographics + + + | Address | [address] | | | [place] [address] | + + + | Home Phone [...] + + + | Author | [facility] | + + + | Organization | [facility] | + + + | Address | Unknown | + + + | Phone | Unavailable | + + + Support + + +---------+ + | Name | Relationship | Address | Phone | + + +---------+ + | Jeovanny Hernández | ECON | Unknown | | + + +---------+ + Care Team Providers + +------+ + | Care Franchise Field Consultant Name | Role | Phone | + +------+ + | Alisha Stovall PA-C | PCP | | + +------+ + Encounter Details +--------+ + + + + | Date | Type | Department | Care Team | Description | +--------+ + + + + | 03/29/ | Documentati | [facility] Center at [facility] | Florencio Lockett G, | | | 2018 | on | [address] | PhD [address] | | | | | [facility] | [place], [place] | | | | | and Healing, | [address] | | | | | | [phone] | | | | | Floor [place], [place] | | | | | | [address] | | | | | | [phone] | | | +--------+ + + + [...] | | | | uled | | [place], [place] | | | | | | [address] | | | | | | [phone] | | | | | | | | +--------+ + + + + | 12/01/ | Video/TeleH | Pain Management | Florencio Lockett, | | | 2019 | ealth-Sched | | PhD [address] | | | | uled | | [place], [place] | | | | | | [address] | | | | | | [phone] | | | | | | | | +--------+ + + + + | 01/06/ | Office | Plastic Surgery | Kuldip Harrell MD | | | 2019 | Visit | | [address] | | | | | | [place] | | | | | | [address] | | | | | | [phone] | | | | | | | | +--------+ + + + + documented as of this encounter Visit Diagnoses Not on filedocumented in this encounter"
--- OUTSIDE RECORDS SUMMARY | ~2019-11-17 | XMS | Encounter Summary ---
Demographics + + + | Address | [address] | | | [place] [address] | + + + | Home Phone | | + + + | Preferred Language | Unknown | + + + | Marital Status | | + + + | Uatsdin Affiliation | NRP | + + + [...] Team Providers + +------+ + | Care Balloon Seller Name | Role | Phone | + +------+ + | Alisha Stovall PA-C | PCP | | + +------+ + Reason for Referral Consultation (Routine) +--------+--------+ + + + + | Status | Reason | Specialty | Diagnoses / | Referred By | Referred To | | | | | Procedures | Contact | Contact | +--------+--------+ + + + + | Closed | | Cardiology | Diagnoses | Petcu, | Barba, | | | | | Morbid | Aura, ACNP | Sarah Villafuerte, | | | | | obesity | [address] | SHANICE [address] | | | | | ([facility]) | Martin Shea | [address] | | | | | Abnormal ECG | Rd | [place], [place] | | | | | | [place], [place] | [address] | | | | | Hypertension | [address] | Phone: | | | | | , | Phone: | [phone] | | | | | unspecified | [phone] | Fax: | | | | | type | Fax: | [phone] | | | | | Procedures | [phone] | | | | | | CONSULT TO | | | | | | | CARDIOLOGY | | | +--------+--------+ + + + + Encounter Details +--------+ + + + + | Date | Type | Department | Care Team | Description | +--------+ + + + + | 11/13/ | Telephone | Digestive Health | Jody Watson ACNP | | | 2017 | | Center at [facility] [address] | [address] | | | | | [address] [facility] | Monse Hernandez [place], | | | | | for Health and | [place] [address] | | | | | [facility] [address] | [phone] | | | | | [place], [place] | | | | | | [address] | | | | | | [phone] | | | +--------+ + + + [...] | | | | uled | | [place], [place] | | | | | | [address] | | | | | | [phone] | | | | | | | | +--------+ + + + + | 12/01/ | Video/TeleH | Pain Management | Florencio Lockett, | | | 2019 | ealth-Sched | | PhD [address] | | | | uled | | [place], [place] | | | | | | [address] | | | | | | [phone] | | | | | | | | +--------+ + + + + | 01/06/ | Office | Plastic Surgery | Kuldip Harrell MD | | | 2019 | Visit | | [address] | | | | | | [place], [place] | | | | | | [address] | | | | | | [phone] | | | | | | | | +--------+ + + + + documented as of this encounter Visit Diagnoses + + | Diagnosis | + + | Morbid obesity (HCC) - Primary Morbid obesity | + + | Abnormal ECG Nonspecific abnormal electrocardiogram (ECG) (EKG) | + + | Hypertension, unspecified type | + + documented in this encounter"
--- OUTSIDE RECORDS SUMMARY | ~2019-11-17 | XMS | Encounter Summary ---
Demographics + + + | Address | [address] | | | [place] [address] | + + + | Home Phone [...] Team Providers + +------+ + | Care Body And Fender Mechanic Name | Role | Phone | [...] | | | | uljeancarlos | | [place], [place] | | | | | | [address] | | | | | | [phone] | | | | | | | | +--------+ + + + + | 12/01/ | Video/TeleH | Pain Management | Florencio Lockett, | | | 2019 | ealth-Sched | | PhD [address] | | | | uled | | [place], [place] | | | | | | [address] | | | | | | [phone] | | | | | | | | +--------+ + + + + | 01/06/ | Office | Plastic Surgery | Kuldip Harrell MD | | | 2019 | Visit | | [address] | | | | | | [place], [place] | | | | | | [address] | | | | | | [phone] | | | | | | | | +--------+ + + + + documented as of this encounter Visit Diagnoses Not on filedocumented in this encounter"
--- OUTSIDE RECORDS SUMMARY | ~2019-11-17 | XMS | Encounter Summary ---
Demographics + + + | Address | [address] | | | [place] [address] | + + + | Home Phone | | + + + | Preferred Language | Unknown | + + + | Marital Status | | + + + | Moravian Affiliation | NRP | + + + | Race | White | + + + | Ethnic Group | Not or | + + + Author + + + | Author | [facility] | + + + | Organization | [facility] | + + + | Address | Unknown | + + + | Phone | Unavailable | + + + Support + + +---------+ + | Name | Relationship | Address | Phone | + + +---------+ + | Jeovanny Hernández | ECON | Unknown | | + + +---------+ + Care Team Providers + +------+ + | Care Scientific Laboratory Supervisor Name | Role | Phone | + +------+ + | Alisha Stovall PA-C | PCP | | + +------+ + Encounter Details +--------+ + + + + | Date | Type | Department | Care Team | Description | +--------+ + + + + | 05/08/ | Abstract | Digestive Health | Clinic, Surgery | | | 2019 | | [place] [address] [address] | | | | | | [facility] | | | | | | for Health and | | | | | | Healing, Building [address] | | | | | | [place], [place] | | | | | | [address] | | | | | | [phone] | | | +--------+ + + + [...] | | | | uled | | [place], [place] | | | | | | [address] | | | | | | [phone] | | | | | | | | +--------+ + + + + | 12/01/ | Video/TeleH | Pain Management | Florencio Lockett, | | | 2019 | ealth-Sched | | PhD [address] | | | | uled | | [place], [place] | | | | | | [address] | | | | | | [phone] | | | | | | | | +--------+ + + + + | 01/06/ | Office | Plastic Surgery | Kuldip Harrell MD | | | 2019 | Visit | | [address] | | | | | | [place], [place] | | | | | | [address] | | | | | | [phone] | | | | | | | | +--------+ + + + + documented as of this encounter Visit Diagnoses Not on filedocumented in this encounter"
--- OUTSIDE RECORDS SUMMARY | ~2019-11-17 | XMS | Encounter Summary ---
Demographics + + + | Address | [address] | | | [place] [address] | + + + | Home Phone [...] + + + | Author | [facility] | + + + | Organization | [facility] | + + + | Address | Unknown | + + + | Phone | Unavailable | + + + Support + + +---------+ + | Name | Relationship | Address | Phone | + + +---------+ + | Jeovanny Hernández | ECON | Unknown | | + + +---------+ + Care Team Providers + +------+ + | Care Blasting Clay Miner Name | Role | Phone | + [...] Pharmacy | | | | | | [address] | | | | | | [address] [place], [place] | | | | | | [address] | | | | | | [phone] | | | +--------+ + + + [...] | | | | uled | | [place], [place] | | | | | | [address] | | | | | | [phone] | | | | | | | | +--------+ + + + + | 12/01/ | Video/TeleH | Pain Management | Florencio Lockett, | | | 2019 | ealth-Sched | | PhD [address] | | | | uled | | [place], [place] | | | | | | [address] | | | | | | [phone] | | | | | | | | +--------+ + + + + | 01/06/ | Office | Plastic Surgery | Kuldip Harrell MD | | | 2019 | Visit | | [address] | | | | | | [place], [place] | | | | | | [address] | | | | | | [phone] | | | | | | | | +--------+ + + + + documented as of this encounter Visit Diagnoses Not on filedocumented in this encounter"
--- OUTSIDE RECORDS SUMMARY | ~2019-11-17 | XMS | Encounter Summary ---
Demographics + + + | Address | [address] | | | [place] [address] | + + + | Home Phone | | + + + | Preferred Language | Unknown | + + + | Marital Status | | + + + | Mandaen Affiliation | NRP | + + + [...] Team Providers + +------+ + | Care Frame Hand Name | Role | Phone | [...] | +--------+ + + + + | 01/10/ | Hospital | Multi-Specialty | Julissa Rahman, | | | 2019 | Encounter | Procedural Unit | MD [address] | | | | | ([facility] at [facility] [address] | [place], [place] | | | | | [address] | [address] | | | | | Mailcode: [place] | [phone] | | | | | for Health and | | | | | | [facility] [address] | | | | | | [place], [place] | | | | | | [address] | | | | | | [phone] | | | +--------+ + + + [...] + + + | Blood Pressure | 106/67 | 01/10/2019 3:00 PM | | | | | PDT | | + + + + + | Pulse | 60 | 01/10/2019 3:00 PM | | | | | PDT | | + + + + + | Temperature | 36.6 C (97.9 F) | 01/10/2019 12:47 PM | | | | | PDT | | + + + + + | Respiratory Rate | 16 | 01/10/2019 3:00 PM | | | | | PDT | | + + + + + | Oxygen Saturation | 98% | 01/10/2019 3:00 PM | | | | | PDT [...] as of this encounter Discharge Instructions Instructions Martina Cummins RN - 01/10/2019Home Care Instructions after EGD (Upper Endoscop y) You may resume your normal diet and medications unless told otherwise. Medications The medications you received for your procedure can cause you to be forgetful and drowsy an d will take the remainder of the day to wear off. DO NOT drink alcohol, drive, operate heavy machinery, sign legal documents, or make major d ecisions until tomorrow. Common After Effects Mild abdominal pain, bloating, and gas. Sore throat. You may treat it with throat lozenges and/or gargle with warm salt water. You may bruise at your IV site. If you have pain, redness, or swelling at your IV site a pply a warm compress. Complications Call your GI doctor if you have: Abnormal pain or any new unexplained symptoms. Shortness of breath, chest or neck pain. Vomiting blood or rectal bleeding. Fever above 101.5 Redness, pain, or swelling at your IV site that is not relieved with warm compress. For any questions related to your procedure, call Monday- Monday 8:00- 4:30 Call the endoscopy department toll free ext. [phone] or After business hours or on weekends and holiday Hospital Acute Specialist toll free [phone] ext. [phone] and have the GI doctor air export operations agent paged. The provider who performed your procedure is: Dr. Rahman Results of your EGD: Normal post surgical anatomy. May resume post surgical diet. Follow up with Dr. Duff. Follow up Appointments with: Follow up with primary care provider as needed. Thank you for choosing [facility]! Your primary care provider or referring provider will receive copies of the procedure repor t and all the pathology reports with recommendations for treatment if needed. If Noted above that biopsies were taken or polyps removed we will receive the results in ap proximately 1 week. If you have not heard from us after 2 weeks please call for your results . documented in this encounter Medications at Time [...] documented as of this encounter Progress Notes Julissa Rahman MD - 01/10/2019 1:42 PM PDTFormatting of this note might be different fro m the original. PRE PROCEDURE NOTE: Subjective: Maria De Jesus presents today for EGD. I personally reviewed patient's past medical, surgical, family, social, sedation and endosc opy histories. Medications and allergies have been reviewed. I discussed the procedure in detail with the patient. PARQ held and all questions addressed. No new medical complaints today. Objective: Vital Signs: Last 24 hour min/max Temp: 36.6 C (97.9 F) Temp Min: 36.6 C (97.9 F) Max: 36.6 C (97.9 F) Pulse: 82 Pulse Min: 82 Max: 82 Resp: 16 Resp Min: 16 Max: 16 BP: 129/86 BP Min: 129/86 Max: 129/86 SpO2: 100 % SpO2 Min: 100 % Max: 100 % There is no height or weight on file to calculate BMI. Neuro: patient is Patient oriented X3. Mental status clear and intact Mallampati Score: II Neck negative Respiratory no wheezing Cardiac Regular. Abdomen: soft, nontender, no masses, no organomegaly Medications: Meds reviewed Allergies Allergen Reactions Ibuprofen Hives Benzonatate Rash Cigarette Smoke Airway Constriction Depakote [Divalproex Sodium] Suicidal Ideation Doxycycline Rash Percocet [Oxycodone-Acetaminophen] Nausea and Vomiting [place] Oil Hives and Nausea and Vomiting Seroquel [Quetiapine Fumarate] Suicidal Ideation See procedure note 01/10/19 Julissa Rahman MD, FACS [facility] Bariatric Surgery Dept of Surgery documented in this en counter Plan of Treatment +--------+ + + + + | Date | Type | Specialty | Care Team | Description | +--------+ + + + + | 11/17/ | Video/TeleH | Pain Management | Florencio Lockett, | | | 2019 | ealth-Sched | | PhD [address] | | | | uled | | [place], [place] | | | | | | [address] | | | | | | [phone] | | | | | | | | +--------+ + + + + | 12/01/ | Video/TeleH | Pain Management | Florencio Lockett, | | | 2019 | ealth-Sched | | PhD [address] | | | | uled | | [place], [place] | | | | | | [address] | | | | | | [phone] | | | | | | | | +--------+ + + + + | 01/06/ | Office | Plastic Surgery | Kuldip Harrell MD | | | 2019 | Visit | | [address] | | | | | | [place], [place] | | | | | | [address] | | | | | | [phone] | | | | | | | | +--------+ + + + + documented as of this encounter Procedures + +--------+ + + + | Procedure Name | Priori | Date/Time | Associated Diagnosis | Comments | | | ty | | | | + +--------+ + + + | EGD | Urgent | 01/10/2019 | S/P gastric bypass | Results for this | | | | 1:44 PM | | procedure are in the | | | | PDT | | results section. | + +--------+ + + + documented in this encounter Results EGD (01/10/2019 1:44 PM PDT) + + | Specimen | + + | | + + + + + | Narrative | Performed At | + + + | MRN: | [facility] | | [id number] Date: 01/10/2019Patient Name: Maria De Jesus Gonzalez #: | ENDOSCOPY | | [id number] of : 1990CSN: [id number] Type: | | | OutpatientRoom: Endo 3Procedure: Upper GI | | | endoscopyIndications: Dysphagia, h/o lap gastric bypass | | | with multiple food | | | intolerances.Providers: JULISSA RAHMAN MD (Doctor), | | | MARTINA CUMMINS RN (Nurse), GENECREST | | | CIARA (Pop Singer)Referring MD: RAFFY DUFF, | | | MDRequesting Provider: Medicines: Fentanyl 200 | | | micrograms IV, Midazolam 8 mg IVComplications: No immediate | | | complications. Estimated blood loss: None.Procedure: | | | Pre-Anesthesia Assessment: - Prior to | | | the procedure, a History and Physical was | | | performed, and patient medications and allergies were | | | reviewed. The patient is competent. The risks and | | | benefits of the procedure and the | | | sedation options and risks were | | | discussed with the patient. All questions | | | were answered and informed consent was obtained. Patient | | | identification and proposed procedure were | | | verified by the physician in the | | | endoscopy suite. Mental Status | | | Examination: alert and oriented. Airway Examination: | | | normal oropharyngeal airway and neck mobility. | | | Respiratory Examination: clear to | | | auscultation. CV Examination: normal. | | | ASA Grade Assessment: II - A patient | | | with mild systemic disease. After reviewing the | | | risks and benefits, the patient was deemed in | | | satisfactory condition to undergo the procedure. The | | | anesthesia plan was to use moderate | | | sedation / analgesia (conscious | | | sedation). Immediately prior to | | | administration of medications, the patient was | | | re-assessed for adequacy to receive sedatives. The heart | | | rate, respiratory rate, oxygen saturations, | | | blood pressure, adequacy of pulmonary | | | ventilation, and response to care were | | | monitored throughout the procedure. The | | | physical status of the patient was | | | re-assessed after the procedure. Prior | | | to the procedure, a History and Physical with | | | airway assessment was performed (see patient record), | | | and patient medications and allergies were | | | reviewed. The risks and benefits of the | | | procedure and the sedation options and | | | risks were discussed. All questions were | | | answered and informed consent was obtained. After | | | reviewing the risks and benefits, the patient was | | | deemed in satisfactory condition to | | | undergo the procedure. Immediately | | | prior to administration of medications, the | | | patient was re-assessed for adequacy to receive | | | sedatives. The heart rate, respiratory rate, oxygen | | | saturations, blood pressure, adequacy of | | | pulmonary ventilation, and response to | | | care were monitored throughout the | | | procedure. The physical status of the | | | patient was re-assessed after the procedure. | | | The Olympus GIF-H190 Gastroscope #[id number] was introduced | | | through the mouth, and advanced to the | | | afferent and efferent jejunal loops. | | | The upper GI endoscopy was accomplished | | | without difficulty. The patient tolerated | | | the procedure poorly due to the patient's anxiety.Estimated Blood | | | Loss: Estimated blood loss: none.Findings: The Z-line was | | | regular and was found 37 cm from the incisors. Evidence of a | | | Andreia-en-Y gastrojejunostomy was found. The gastrojejunal | | | anastomosis was characterized by healthy appearing mucosa. This was | | | traversed. The jdbgb-ex-hrnrjnp limb was characterized by | | | healthy appearing mucosa. The pyivjzzx-jp-pzdpgsj limb was not | | | examined as it could not be reached. The examined jejunum | | | was normal.Moderate Sedation: Moderate (conscious) sedation was | | | administered by the endoscopy nurse and supervised by the | | | endoscopist. The patient's oxygen saturation, heart rate, blood | | | pressure and response to care were monitored. Total physician | | | intraservice time was 12 minutes.Impression: - Z-line | | | regular, 37 cm from the incisors. - | | | Andreia-en-Y gastrojejunostomy with gastrojejunal | | | anastomosis characterized by healthy appearing mucosa. | | | - Normal examined jejunal andreia limb. | | | - No specimens collected. | | | - recommend anesthesia support for any future | | | endoscopyRecommendation: - Discharge patient to home (with | | | spouse).JULISSA RAHMAN MD01/10/2019 2:10:30 PMNumber of Addenda: 0Note | | | Initiated On: 01/10/2019 1:44 PM | | |Note Initiated On: 01/10/2019 1:44 PM | | + + + + +---------+ + + | Performing | Address | City/State/Zipcode | Phone Number | | Organization | | | | + +---------+ + + | [facility] | | | | + +---------+ + + documented in this encounter Visit Diagnoses + + | Diagnosis | + + | Morbid obesity (HCC) - Primary Morbid obesity | + + | Gastroesophageal reflux disease, esophagitis presence not specified | + + | S/P gastric bypass Bariatric surgery status | + + documented in this encounter Administered Medications + +--------+ +--------+------+------+ | Medication Order | MAR | Action | Dose | Rate | Site | | | Action | Date | | | | + +--------+ +--------+------+------+ | fentaNYL (SUBLIMAZE) injection | Given | 01/11/20 | 50 mcg | | | | intravenous, INTRAPROCEDURE PRN, | | 19 1:52 | | | | | Starting Mary 01/10/19 at 1352, | | PM PDT | | | | | Until Mary 01/10/19 at 1352 | | | | | | + +--------+ +--------+------+------+ +---+---+ | | | +---+---+ + +-------+ +--------+---+---+ | fentaNYL (SUBLIMAZE) injection | Given | 01/11/20 | 50 mcg | | | | intravenous, INTRAPROCEDURE PRN, | | 19 1:54 | | | | | Starting Mary 01/10/19 at 1354, | | PM PDT | | | | | Until Mary 01/10/19 at 1354 | | | | | | + +-------+ +--------+---+---+ +---+---+ | | | +---+---+ + +-------+ +--------+---+---+ | fentaNYL (SUBLIMAZE) injection | Given | 01/11/20 | 50 mcg | | | | intravenous, INTRAPROCEDURE PRN, | | 19 1:57 | | | | | Starting Mary 01/10/19 at 1357, | | PM PDT | | | | | Until Mary 01/10/19 at 1357 | | | | | | + +-------+ +--------+---+---+ +---+---+ | | | +---+---+ + +-------+ +--------+---+---+ | fentaNYL (SUBLIMAZE) injection | Given | 01/11/20 | 50 mcg | | | | intravenous, INTRAPROCEDURE PRN, | | 19 2:00 | | | | | Starting Mary 01/10/19 at 1400, | | PM PDT | | | | | Until Mary 01/10/19 at 1400 | | | | | | + +-------+ +--------+---+---+ + +---+ | | | + +---+ | lidocaine viscous (XYLOCAINE | | | VISCOUS) 2 % mucosal solution 15 | | | mL 15 mL, oral, INTRAPROCEDURE | | | PRN, Starting Mary 01/10/19 at | | | 1335, Until Mary 01/10/19 at 2127, | | | sore oropharynx | | + +---+ | | | + +---+ + +-------+ +------+---+---+ | midazolam (PF) (VERSED) | Given | 01/11/20 | 1 mg | | | | injection 1 mg 1 mg, | | 19 1:37 | | | | | intravenous, ONCE, 1 dose, Mary | | PM PDT | | | | | 01/10/19 at 1400 | | | | | | + +-------+ +------+---+---+ +---+---+ | | | +---+---+ + +-------+ +------+---+---+ | midazolam (PF) (VERSED) | Given | 01/11/20 | 2 mg | | | | injection INTRAPROCEDURE PRN, | | 19 1:52 | | | | | Starting Mary 01/10/19 at 1352, | | PM PDT | | | | | Until Mary 01/10/19 at 1352 | | | | | | + +-------+ +------+---+---+ +---+---+ | | | +---+---+ + +-------+ +------+---+---+ | midazolam (PF) (VERSED) | Given | 01/11/20 | 2 mg | | | | injection INTRAPROCEDURE PRN, | | 19 1:54 | | | | | Starting Mary 01/10/19 at 1354, | | PM PDT | | | | | Until Mary 01/10/19 at 1354 | | | | | | + +-------+ +------+---+---+ +---+---+ | | | +---+---+ + +-------+ +------+---+---+ | midazolam (PF) (VERSED) | Given | 01/11/20 | 2 mg | | | | injection INTRAPROCEDURE PRN, | | 19 1:57 | | | | | Starting Mary 01/10/19 at 1357, | | PM PDT | | | | | Until Mary 01/10/19 at 1357 | | | | | | + +-------+ +------+---+---+ +---+---+ | | | +---+---+ + +-------+ +------+---+---+ | midazolam (PF) (VERSED) | Given | 01/11/20 | 2 mg | | | | injection INTRAPROCEDURE PRN, | | 19 2:00 | | | | | Starting Mary 01/10/19 at 1400, | | PM PDT | | | | | Until Mary 01/10/19 at 1400 | | | | | | + +-------+ +------+---+---+ + +---+ | | | + +---+ | simethicone (MYLICON) | | | suspension 3.333 mg 3.333 mg | | | (rounded from 3.3333 mg = 1 | | | drop), oral, INTRAPROCEDURE PRN, | | | Starting Mary 01/10/19 at 1335, | | | Until Mary 01/10/19 at 2127, gas | | | bubbles in endoscope | | + +---+ | | | + +---+ + +---------+ + + +---+ | sodium chloride 0.9 % (NS) IV | New Bag | 01/11/20 | 10 mL/hr | 10 mL/hr | | | infusion 10 mL/hr, intravenous, | | 19 1:38 | | | | | CONTINUOUS, Starting Mary 01/10/19 | | PM PDT | | | | | at 1345, Until Mary 01/10/19 at | | | | | | | 2127 | | | | | | + +---------+ + + +---+ +---+---+ | | | +---+---+ documented in this encounter"
--- OUTSIDE RECORDS SUMMARY | ~2019-11-17 | XMS | Encounter Summary ---
Demographics + + + | Address | [address] | | | [place] [address] | + + + | Home Phone | | + + + | Preferred Language | Unknown | + + + | Marital Status | | + + + | Holiness Affiliation | Unknown | + + + [...] [place], | | | | | [place] [address] | | + + + + + Care Team Providers + +------+ + | Care Greenkeeper Name | Role | Phone | + +------+ + | Alisha Stovall | PCP | | | PA-C | | | + +------+ + Reason for Visit + +--------+ + | Reason | Onset | Comments | | | Date | | + +--------+ + | Medication Refill | 06/11/ | | | | 2020 | | + +--------+ + Encounter Details +--------+--------+ + + + | Date | Type | Department | Care Team | Description | +--------+--------+ + + + | 06/11/ | Refill | [facility] | Jace, | Medication Refill | | 2020 | | [facility] | Matt, SENIOR SALES REPRESENTATIVE [address] | | | | | CL[address] | [address] [facility], | | | | | [address] [place], | [place] [address] | | | | | [place] [address] | [phone] | | | | | [phone] | | | +--------+--------+ + + + [...] documented as of this encounter Miscellaneous Notes Addendum Note - Peter Livingston CC CMA - 06/11/2019 12:35 PM PST Addended by: Oksana LIVINGSTON on: 06/11/2019 12:35 PM Modules accepted: Orders elephone Enc celine - Mariposa Little RN - 06/11/2019 9:48 AM PSTLast filled Topamax 10/09/18 Last seen 02/28/19 Dr. Joel Next appt 06/25/19 NAREN Marrufo elephone En counter - Jacinto Dobson - 06/11/2019 8:16 AM PSTFax request from: [facility] [place] topiramate (TOPAMAX) 50 MG tablet Last fill date: 04/29/2019 8: 17 AM PSTdocumented in this encounter Plan of Treatment +--------+---------+ + + + | Date | Type | Specialty | Care Team | Description | +--------+---------+ + + + | 11/18/ | Office | Neurology | Shirley Murdock NP | | 2019 | Visit | | [address] [place] | | | | | | [place] | | | | | | [address] | | | | | | [phone] | | | | | | | | +--------+---------+ + + + | 12/01/ | Office | Cardiology | Nadege Chavez | | | 2020 | Visit | | [address] | | | | | | [address] | | | | | | [place] [address] | | | | | [phone] | | | | | | | [...]
--- OUTSIDE RECORDS SUMMARY | ~2019-11-17 | XMS | Encounter Summary ---
Demographics + + + | Address | [address] | | | [place] [address] | + + + | Home Phone [...] Team Providers + +------+ + | Care Fit Model Name | Role | Phone | + +------+ + | Alisha Stovall PA-C PCP | | + +------+ + Encounter Details +--------+--------+ + + + | Date | Type | Department | Care Team | Description | +--------+--------+ + + + | 05/17/ | Travel | | | | | [...] | | | | [facility] | | [place], [place] | | | | | | [address] | | | | | | [phone] | | | | | | | | +--------+ + + + + | 12/01/ | Video/TeleH | Pain Management | Florencio Lockett, | | | 2019 | ealth-Sched | | PhD [address] | | | | uled | | [place], [place] | | | | | | [address] | | | | | | [phone] | | | | | | | | +--------+ + + + + | 01/06/ | Office | Plastic Surgery | Kuldip Harrell MD | | | 2019 | Visit | | [address] | | | | | | [place], [place] | | | | | | [address] | | | | | | [phone] | | | | | | | | +--------+ + + + + documented as of this encounter Visit Diagnoses Not on filedocumented in this encounter"
--- OUTSIDE RECORDS SUMMARY | ~2019-11-17 | XMS | Encounter Summary ---
Demographics + + + | Address | [address] | | | [place] [address] | + + + | Home Phone | | + + + | Preferred Language | Unknown | + + + | Marital Status | | + + + | Buddhism Affiliation | NRP | + + + | Race | White | + + + | Ethnic Group | Not or | + + + Author + + + | Author | [facility] | + + + | Organization | [facility] | + + + | Address | Unknown | + + + | Phone | Unavailable | + + + Support + + +---------+ + | Name | Relationship | Address | Phone | + + +---------+ + | Jeovanny Hernández | ECON | Unknown | | + + +---------+ + Care Team Providers + +------+ + | Care Packager Machine Name | Role | Phone | + +------+ + | Alisha Stovall PA-C | PCP | | + +------+ + Encounter Details +--------+ + + + + | Date | Type | Department | Care Team | Description | +--------+ + + + + | 10/29/ | Transcribe | [facility] | Transcribe | | | 2019 | Orders | [facility] [address] | Encounter, Provider, | | | | | [address] [place] for | MD [address] | | | | | Health and Healing, | [place] [address] | | | | | [address] | | | | | | [place], [place] | | | | | | [address] | | | | | | [phone] | | | +--------+ + + + [...] | | | | uled | | [place], [place] | | | | | | [address] | | | | | | [phone] | | | | | | | | +--------+ + + + + | 12/01/ | Video/TeleH | Pain Management | Florencio Lockett, | | | 2019 | ealth-Sched | | PhD [address] | | | | uled | | [place], [place] | | | | | | [address] | | | | | | [phone] | | | | | | | | +--------+ + + + + | 01/06/ | Office | Plastic Surgery | Kuldip Harrell MD | | | 2019 | Visit | | [address] | | | | | | [place], [place] | | | | | | [address] | | | | | | [phone] | | | | | | | | +--------+ + + + + +------+ +--------+ + + | Name | Type | Priori | Associated Diagnoses | Order Schedule | | | | ty | | | +------+ +--------+ + + | EGD | Procedures | Urgent | History of | Expected: 2018 | | | | | Andreia-en-Y gastric | | | | | | bypass Dehydration | | | | | | Inadequate oral | | | | | | intake | | +------+ +--------+ + + documented as of this encounter Results EGD (01/10/2019 1:44 PM PDT) + + | Specimen | + + | | + + + + + | Narrative | Performed At | + + + | MRN: | [facility] | | [id number] Date: 01/10/2019Patient Name: Maria De Jesus Gonzalez #: | ENDOSCOPY | | [id number] of : 1990CSN: [id number] Type: | | | OutpatientRoom: Endo 3Procedure: Upper GI | | | endoscopyIndications: Dysphagia, h/o lap gastric bypass | | | with multiple food | | | intolerances.Providers: LINSDAY SALINAS MD (Doctor), | | | BROOKLYN [place] RN (Nurse), [employer] | | | CIARA (Director Index)Referring MD: RAFFY DUFF, | | | MDRequesting [...] | | | The Olympus GIF-[id number] Gastroscope #[id number] was introduced | | | through the [...] This was | | | traversed. The anfkt-vj-sttlfwb limb was characterized by | | | healthy appearing mucosa. The hgrdrazl-mk-vuirqkj limb was not | | | examined [...] patient to home (with | | | spouse).LINDSAY SALINAS MD01/10/2019 2:10:30 PMNumber of Addenda: 0Note | [...] Bariatric surgery status | + + | History of Andreia-en-Y gastric bypass Bariatric surgery status | + + | Dehydration | + + | Inadequate oral intake Other symptoms concerning nutrition, metabolism, and | | development | + + documented in this encounter"
--- OUTSIDE RECORDS SUMMARY | ~2019-11-17 | XMS | Encounter Summary ---
Demographics + + + | Address | [address] | | | [place] [address] | + + + | Home Phone [...] Team Providers + +------+ + | Care Sample Stitcher Name | Role | Phone | + +------+ + | Alisha Stovall PA-C | PCP | | + +------+ + Encounter Details +--------+ + + + + | Date | Type | Department | Care Team | Description | +--------+ + + + + | 08/06/ | Abstract | Digestive Health | Kenan Norton, | | | 2019 | | Center at [facility] [address] | MD [address] | | | | | [address] [place] | [facility] [place] | | | | | for Health and | [address] | | | | | [place], [address] | [phone] | | | | | [place], [place] | | | | | | [address] | | | | | | [phone] | | | +--------+ + + + [...] | | | | uled | | [place], [place] | | | | | | [address] | | | | | | [phone] | | | | | | | | +--------+ + + + + | 12/01/ | Video/TeleH | Pain Management | Florencio Lockett, | | | 2019 | ealth-Sched | | PhD [address] | | | | uled | | [place], [place] | | | | | | [address] | | | | | | [phone] | | | | | | | | +--------+ + + + + | 01/06/ | Office | Plastic Surgery | Kuldip Harrell MD | | | 2020 | Visit | | [address] | | | | | | [place], [place] | | | | | | [address] | | | | | | [phone] | | | | | | | | +--------+ + + + + documented as of this encounter Visit Diagnoses Not on filedocumented in this encounter"
--- OUTSIDE RECORDS SUMMARY | ~2019-11-17 | XMS | Encounter Summary ---
Demographics + + + | Address | [address] | | | [place] [address] | + + + | Home Phone | | + + + | Preferred Language | Unknown | + + + | Marital Status | | + + + | Adventism Affiliation | NRP | + + + [...] Team Providers + +------+ + | Care Hotel Desk Clerk Name | Role | Phone | + +------+ + | Alisha Stovall PA-C | PCP | | + +------+ + Encounter Details +--------+ + + + + | Date | Type | Department | Care Team | Description | +--------+ + + + + | 02/15/ | Transcribe | [facility] | Transcribe | | | 2019 | Orders | [facility] [address] | Encounter, Provider, | | | | | [address] [place] for | MD [address] | | | | | Health and Healing, | [place] [address] | | | | | [address] | | | | | | [place], [place] | | | | | | [address] | | | | | | [phone] | | | +--------+ + + + [...] | | | | uled | | [place], [place] | | | | | | [address] | | | | | | [phone] | | | | | | | | +--------+ + + + + | 12/01/ | Video/TeleH | Pain Management | Florencio Lockett, | | | 2019 | ealth-Sched | | PhD [address] | | | | uled | | [place], [place] | | | | | | [address] | | | | | | [phone] | | | | | | | | +--------+ + + + + | 01/06/ | Office | Plastic Surgery | Kuldip Harrell MD | | | 2020 | Visit | | [address] | | | | | | [place], [place] | | | | | | [address] | | | | | | [phone] | | | | | | | | +--------+ + + + + documented as of this encounter Results ESOPHAGEAL MANOMETRY (04/12/2019 2:51 PM PST) + + | Specimen | + + | | + + + +-- + | Narrative | P erformed At | + +-- + | MRN: | [facility] | | [id number] Date: 04/12/2019Patient Name: Maria De Jesus Gonzalez #: | [facility] | | [id number] of : 1990CSN: [id number] Type: | | | AmbulatoryRoom: 11Procedure: High [...]
--- OUTSIDE RECORDS SUMMARY | ~2019-11-17 | XMS | Encounter Summary ---
Demographics + + + | Address | [address] | | | [place] [address] | + + + | Home Phone | | + + + | Preferred Language | Unknown | + + + | Marital Status | | + + + | Methodist Affiliation | NRP | + + + | Race | White | + + + | Ethnic Group | Not or | + + + Author + + + | Author | [facility] | + + + | Organization | [facility] | + + + | Address | Unknown | + + + | Phone | Unavailable | + + + Support + + +---------+ + | Name | Relationship | Address | Phone | + + +---------+ + | Jeovanny Hernández | ECON | Unknown | | + + +---------+ + Care Team Providers + +------+ + | Care Graduate Student Name | Role | Phone | + [...] | | Center at [facility] [address] | [facility] [address] | | | | | [address] [place] | [place], [place] | | | | | for [facility] and | [address] | | | | | [facility] [address] | [phone] | | | | | [place], [place] | | | | | | [address] | | | | | | | [...] | | | | uled | | [place], [place] | | | | | | [address] | | | | | | [phone] | | | | | | | | +--------+ + + + + | 12/01/ | Video/TeleH | Pain Management | Florencio Lockett, | | | 2019 | ealth-Sched | | PhD [address] | | | | uled | | [place], [place] | | | | | | [address] | | | | | | [phone] | | | | | | | | +--------+ + + + + | 01/06/ | Office | Plastic Surgery | Kuldip Harrell MD | | | 2020 | Visit | | [address] | | | | | | [place], [place] | | | | | | [address] | | | | | | [phone] | | | | | | | | +--------+ + + + + documented as of this encounter Visit Diagnoses Not on filedocumented in this encounter"
--- OUTSIDE RECORDS SUMMARY | ~2019-11-17 | XMS | Encounter Summary ---
Demographics + + + | Address | [address] | | | [place] [address] | + + + | Home Phone [...] Team Providers + +------+ + | Care Emerging [employer] Director Name | Role | Phone | + +------+ + | Alisha Stovall PA-C | PCP | | + +------+ + Reason for Visit Physical Therapy (Routine) +--------+--------+ + + + [...] | | | obesity | [address] [facility] | [facility] | | | | | ([facility]) | [facility] | for Health | | | | | Procedures | Rd | and Healing, | | | | | PHYSICAL | [facility] [place] | Building [address], | | | | | THERAPY | [address] | 1st Floor | | | | | REFERRAL | Phone: | [place], [place] | | | | | | [phone] | [address] | | | | | | Fax: | Phone: | | | | | | [phone] | [phone] | | | | | | | Fax: | | | | | | | [phone] | +--------+--------+ + + + + Encounter Details +--------+---------+ + + + | Date | Type | Department | Care Team | Description | +--------+---------+ + + + | 10/13/ | Office | [facility] | Daphnieella, | Morbid obesity (HCC) | | 2018 | Visit | Therapy Services at | Shannan, PT [address] | (Primary Dx); | | | | [facility] | [facility] | Weakness | | | | [address] | Rd [facility] [place] | generalized; | | | | [place] [facility] | [address] | Decreased activity | | | | and Healing, | [phone] | | | | | Building | | | | | | Floor [place], [place] | | | | | | [address] | | | | | | [phone] | | | +--------+---------+ + + + [...] documented as of this encounter Progress Notes Shannan Villagran, PT - 10/13/2017 1:00 PM PDTFormatting of this note might be kym t from the original. Insurance: Payor: [facility] MEDICAID / Plan: [facility] [place] / Product Type: Medicaid / Non-Medicare [facility] PHYSICAL THERAPY EVALUATION No past medical history on file. No past surgical history on file. No current outpatient prescriptions on file. Previous physical therapy treatment or alternative treatments for this condition includes: none. Results of previous treatment: N/A. Concurrent medical treatment: Perch Machine Inspector, RN, MD. Patient has PT for neck and left shoul kala pain. SUBJECTIVE: 10/13/2017 History of Presenting Problems: Maria De Jesus is a 26 y.o. person referred to PT for prehabilitati on evaluation prior to Bariatric abdominal surgery. Reports very limited tolerance of walkin g/standing due to pain. Reports difficulty with ADLs and IADLs and increased fatigue. Christy barfield is in physical therapy for neck and left shoulder pain. Reports she does not currently hav e an exercise program, but is open to learning what she can do to prepare for surgery and "m ove better". Reports goals to walk for one hour, stand for > 1 hour, sleep full nights. Prior Level of Function: progressive weight gain over the past 3 years The patient is requesting the following family members or friends involved with rehabilita tion therapy: Activity limitations and participation restrictions: disturbed sleep, difficulty with ADLs and IADLs, unable to tolerate exercise and prolonged walking/standing Patient's Activity and participation goal(s) with therapy: walk for one hour, stand for > 1 hour, sleep full nights Condition Specific Evaluation: Including Body functions, Body structures and Impairments Pain: pain is a significant clinical problem Current functional Status: Pain Reported in location of bilateral knees (R>L), low back, and bottoms of feet Pain is a 5 on a scale of 0-10, at best 5/10, and at worst 10/10. The following activities aggravate the pain: standing, walking, exercise, squatting, bendin g. The pain is relieved by rest and medication. Patient's sleep is interrupted by the pain. Currently sleeps 5 hours per night and does not wake rested. Current PA: walks occasionally for exercise, limited by pain Perceived fitness: poor Willingness to routinely exercise (including perceived barriers to exercise): yes, within t olerance of pain Equipment at home: pulleys, small hand weights, therabands Home Set Up: apartment without elevator access, 2nd floor Living situation/environment is limiting function: stairs to access apartment on 2nd floor; Assistance for ADLs/IADLs: intermittent assist for IADLs Social support: Patient's current occupational status: does not work. 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 Anxieties or concerns about therapy: pain OBJECTIVE EXAM: Weight: 401lbs; BMI: 54.39 ROM: limited elevation at bilateral shoulders due to pain (In PT for shoulders) Limits due to excessive tissue: limited hip AROM due to abdominal soft tissue Strength Screen: Muscle Group Left 10/13/2017 Right 10/13/2017 Shoulder Elevation 4/5* 4/5* Shoulder Abduction 4/5* 4/5* Hip Flexion (L2-3) 4-/5 4/5 Knee Extension (L3-4) 4-/5 4+/5 Knee Flexion (L1-2) 4-/5 4+/5 Dorsiflexors (L4-5) 4/5 4+/5 Note 5/5=normal strength *= pain with motion BOLD= concerning Posture: forward head Outcome Measures: Exercise Capacity Outcome measure Interpretation 26 y.o. Score 10/13/2017 30 sec sit to stand Normal values; 28 y/o = 30 reps 9 reps, with use of UEs 6 min walk test 18-29 yo: female 2128' Significant change is ~ > 170 ft 1,128 feet with no assistive device Pre Walk Vitals 136/82 mmHG 82bpm Post Walk Vitals 132/82mmHG 84bpm TREATMENT TODAY: Evaluation, Therapeutic Exercise, education on benefits of aquatic exercis e and cardio Treatment: Established home program with handout as listed below: Treatment: Patient education on >150 minutes of PA a week. Broken into 10 minute sessions for a total of 30 minutes a day Patient education on using RPE scale Patient education on Abdominal precautions Patient education on Log roll technique Education on aquatic exercises Treatment: Pt instructed in global UE/LE strengthening program. Will need follow up appoin tment for continuation of education to complete comprehensive program. Exercise handout iss ued. Intervention Date* Comments Compliance 10/13/2017 Predicted: good Progressive walking program 10/13/2017 General light strengthening/stretching exercises 10/13/2017 Logroll instruction 10/13/2017 Abdominal precautions instruction 10/13/2017 * indicates date intervention started. see comments for details of compliance, modification s, deletions ASSESSMENT: Patient is a 26 y.o. female referred to PT for prehabilitation evaluation prior to Bariatric abdominal surgery. Patient exam findings include decreased available LE ROM du e to leg and abdominal soft tissue, decreased UE and LE strength, decreased activity toleran ce, and physical deconditioning. Pt walked 1,128 feet in 6 Minute Walk Test as compared to a ge and gender matched normative values (2,129 feet), indicating deficits in aerobic enduranc e. Best evidence practice recommends obese pt's with knee pain lose 5% of their wt doing non -wt bearing activities prior to doing wt bearing activities to avoid progress on OA. Symptom s are limiting patient with daily and functional activities including standing, walking, exe rcising, and performing ADLs and IADLs. Patient has been provided instruction on appropriat e exercise and pain control strategies to increase aerobic PA to prepare for major bariatric abdominal surgery. She has also been educated on aquatic exercises and benefits of exercise in the aquatic setting. Patient requires services that can be safely and effectively performed only by a qualified therapist to address the following problems and achieve the following goals: Goals: 12 wks Goal: Date Set Status Pt will be 100% independent in home exercise program 10/13/2017 Pt will participate in 30 minutes or aerobic activity, 5 days per week 10/13/2017 Pt will perform strength training 3 times per week 10/13/2017 Pt will show improvement in 6 minute walk test by at least 170 ft, representing clinical an d functional improvement in endurance 10/13/2017 Pt will report improvement in PFPS by at least 3 points in individual item or 2 points in a verage, indicating clinical improvement in function. 10/13/2017 Home exercise program including: Aerobic PA Strengthening exercises Stretching exercises Aquatic exercises G-Codes established 10/13/17 [id number] [place] MOBILITY CURRENT STATUS Impairment 60-79 % G8979 PQRI MOBILITY GOAL STATUS Impairment 1-19 % Justification: PSFS score, 6 min walk test, 30s sit to stand See topics above to identify problem areas and goals Personal factors/Comorbidities: Musculoskeletal , Posture, ROM, Gait/Locomotion, Sleep com plications, Cardiopulmonary, Edema and Height/Weight BMI Communication: No noted deficits, Psychosocial: No noted deficits, High 3+ Body structures & functions, Activity limitations, participation restrictions: Musculoskele thompson , Posture, ROM, Gait/Locomotion, Sleep complications, Cardiopulmonary, Edema and Height/ Weight BMI Work/school, Family home life, Community, Social, Recreational sport, Self care grooming and Sleeping Moderate - 3 or more Stability of condition: Pre-op status with uncertain recovery course Low- Stable Clinical decision making: Pre-op status with uncertain recovery course Low - Uncomplicated Complexity: Low - 87292 The patient requires services that can be safely and effectively performed only by a qualif ied therapist to address the aforementioned and highlighted problems and goals. Goals discussed and agreed upon with patient and/or family. Individual cultural and social needs addressed. Rehab Potential: Good, if Maria De Jesus carries through with home exercise program. This note is to serve as the discharge summary if the patient fails to attend further Physi uri Therapy appointments or contact the therapist regarding any change in their status. Shannan Villagran, PT [facility] 1ST FLOOR Scheduled Appointment time: 1:00 PM Treatment began: 1:00 PM Treatment ended: 1:45 PM Patient was seen for a total of 45 minutes of treatment time. 45 minutes was in direct cont act care as described above and on completed flow sheets. Treatment Interventions duration in minutes: Procedure:Physical Therapy Evaluation PLAN OF CARE (Established 10/13/2017 to be updated every 60 days): Treatment Plan Summary: see above, recommend follow up x1 visit and patient to continue see ing PT near her home for shoulder pain Procedure Codes: Re-evaluation 73847, Therapeutic Exercise 83211, Therapeutic Activities 9 9401, Gait Training 27951 and Self-care ADL 36234 Minutes per session: 45 Total number of visits: 1 Frequency: 1x follow up visit recommended in 2-3 months Duration: 3 months (must exceed or match Medicare service period request) Service period from: 10/13/2017 to: 10/13/2018 (Medicare must match duration or be no greate r than 90 days if proposed duration is greater than 3 months) Start of care: 10/13/2017 Referral information Authorizing Provider: JOE HILL [[id number]] Onset/Referral Date: 08/14/17 Primary/Referral Diagnosis: E66.01 Morbid obesity (HCC) R53.1 Weakness generalized R68.89 Decreased activity Next progress report 12/13/2017 Insurance: Payor: [employer] / Plan: [employer] [place] / Product Type: Medicaid / G-code:- code not needed. Number visits authorized: 1 Number visits used: 1 Outcome Measure 10/13/2017 Activity 1 (3 point increase is significant for any one activity): 1 (walk fo yashira hour ) Activity 2: 2 (stand for greater than one hour) Activity 3: 0 (sleep full night) . documented in th is encounter Plan of Treatment +--------+ + + + + | Date | Type | Specialty | Care Team | Description | +--------+ + + + + | 11/17/ | Video/TeleH | Pain Management | Florencio Lockett, | | | 2019 | ealth-Sched | | PhD [address] | | | | uled | | [place], [place] | | | | | | [address] | | | | | | [phone] | | | | | | | | +--------+ + + + + | 12/01/ | Video/TeleH | Pain Management | Florencio Lockett, | | | 2019 | ealth-Sched | | PhD [address] | | | | uled | | [place], [place] | | | | | | [address] | | | | | | [phone] | | | | | | | | +--------+ + + + + | 01/06/ | Office | Plastic Surgery | Kuldip Harrell MD | | | 2019 | Visit | | [address] | | | | | | [place], [place] | | | | | | [address] | | | | | | [phone] | | | | | | | | +--------+ + + + + + + +--------+ + + | Name | Type | Priori | Associated Diagnoses | Order Schedule | | | | ty | | | + + +--------+ + + | [place] MOBILITY CURRENT | Procedures | Routin | Morbid obesity | Ordered: 10/18/2017 | | STATUS | | e | ([facility]) Weakness | | | | | | generalized | | | | | | Decreased activity | | + + +--------+ + + | PQRI MOBILITY GOAL | Procedures | Routin | Morbid obesity | Ordered: 10/18/2017 | | STATUS | | e | ([facility]) Weakness | | | | | | generalized | | | | | | Decreased activity | | + + +--------+ + + documented as of this encounter Visit Diagnoses + + | Diagnosis | + + | Morbid obesity (HCC) - Primary Morbid obesity | + + | Weakness generalized Other malaise and fatigue | + + | Decreased activity Other general symptoms | + + documented in this encounter
--- OUTSIDE RECORDS SUMMARY | ~2019-11-17 | XMS | Encounter Summary ---
Demographics + + + | Address | [address] | | | [place] [address] | + + + | Home Phone [...] Team Providers + +------+ + | Care Pot Annealer Name | Role | Phone | + +------+ + | Alisha Stovall PA-C | PCP | | + +------+ + Reason for Visit + + + | Reason | Comments | + + + | Referral To Surgery | | | - General | | + + + Encounter Details +--------+ + + + + | Date | Type | Department | Care Team | Description | +--------+ + + + + | 12/12/ | Abstract | [facility] | Clinic, Surgery | Referral To Surgery | | 2017 | | [place] [address] [address] | | - General | | | | [address] [facility] | | | | | | for Health and | | | | | | Healing, [address] | | | | | | [place], [place] | | | | | | [address] | | | | | | [phone] | | | +--------+ + + + [...] | | | | uled | | [place], [place] | | | | | | [address] | | | | | | [phone] | | | | | | | | +--------+ + + + + | 12/01/ | Video/TeleH | Pain Management | Florencio Lockett, | | | 2019 | ealth-Sched | | PhD [address] | | | | uled | | [place], [place] | | | | | | [address] | | | | | | [phone] | | | | | | | | +--------+ + + + + | 01/06/ | Office | Plastic Surgery | Kuldip Harrell MD | | | 2020 | Visit | | [address] | | | | | | [place] | | | | | | [address] | | | | | | [phone] | | | | | | | | +--------+ + + + + documented as of this encounter Visit Diagnoses Not on filedocumented in this encounter"
--- OUTSIDE RECORDS SUMMARY | ~2019-11-17 | XMS | Encounter Summary ---
Demographics + + + | Address | [address] | | | [place] [address] | + + + | Home Phone | | + + + | Preferred Language | Unknown | + + + | Marital Status | | + + + | Pentecostalism Affiliation | NRP | + + + | Race | White | + + + | Ethnic Group | Not or | + + + Author + + + | Author | [facility] | + + + | Organization | [facility] | + + + | Address | Unknown | + + + | Phone | Unavailable | + + + Support + + +---------+ + | Name | Relationship | Address | Phone | + + +---------+ + | Jeovanny Hernández | ECON | Unknown | | + + +---------+ + Care Team Providers + +------+ + | Care Construction Lineman Name | Role | Phone | + +------+ + | Alisha Stovall PA-C | PCP | | + +------+ + Reason for Visit +--------+ + | Reason | Comments | +--------+ + | Other | External Orders/Auth for Echo, Nuc Med Stress Test | +--------+ + Encounter Details +--------+ + + + + | Date | Type | Department | Care Team | Description | +--------+ + + + + | 02/08/ | MyChart | Cardiology | Barba, Sarah | pre authorization | | 2018 | Encounter | Preventive at [facility] | SHANICE Villafuerte [address] | | | | | [address] | [address] [place], | | | | | [facility] | [place] [address] | | | | | and Healing, | [phone] | | | | | [address] | | | | | | [place], [place] | | | | | | [address] | | | | | | [phone] | | | +--------+ + + + [...] | | | | ray | | [place], [place] | | | | | | [address] | | | | | | [phone] | | | | | | | | +--------+ + + + + | 12/01/ | Video/TeleH | Pain Management | Florencio Lockett, | | | 2019 | ealth-Sched | | PhD [address] | | | | uled | | [place], [place] | | | | | | [address] | | | | | | [phone] | | | | | | | | +--------+ + + + + | 01/06/ | Office | Plastic Surgery | Kuldip Harrell MD | | | 2019 | Visit | | [address] | | | | | | [place], [place] | | | | | | [address] | | | | | | [phone] | | | | | | | | +--------+ + + + + documented as of this encounter Visit Diagnoses Not on filedocumented in this encounter"
--- OUTSIDE RECORDS SUMMARY | ~2019-11-17 | XMS | Encounter Summary ---
Demographics + + + | Address | [address] | | | [place] [address] | + + + | Home Phone | | + + + | Preferred Language | Unknown | + + + | Marital Status | | + + + | Muslim Affiliation | NRP | + + + | Race | White | + + + | Ethnic Group | Not or | + + + Author + + + | Author | [facility] | + + + | Organization | [facility] | + + + | Address | Unknown | + + + | Phone | Unavailable | + + + Support + + +---------+ + | Name | Relationship | Address | Phone | + + +---------+ + | Jeovanny Hernández | ECON | Unknown | | + + +---------+ + Care Team Providers + +------+ + | Care Cloth Desizing Range Tender Name | Role | Phone | + +------+ + | Alisha Stovall PA-C | PCP | | + +------+ + Reason for Visit + + + | Reason | Comments | + + + | New patient | | | consultation | | + + + Consultation (Routine) +--------+--------+ + + + + | Status | Reason | Specialty | Diagnoses / | Referred By | Referred To | | | | | Procedures | Contact | Contact | +--------+--------+ + + + + | Closed | | Surgery | Diagnoses | Kamlesh, | Aime General | | | | | Chronic | Ancelmo Easley MD | Surg [facility] | | | | | cholecystiti | [place] | [address] | | | | | s | SURGICAL | [address] [facility] | | | | | Procedures | [facility] | for Health | | | | | [place] | [address] | and Healing, | | | | | ESOPHAGEAL | AVE | [address] | | | | | MOTILITY | [place], | [place], [place] | | | | | STUDY | [place] [address] | [address] | | | | | W/INTERP AND | Phone: | Phone: | | | | | REPORT | [phone] | [phone] | | | | | | Fax: | Fax: | | | | | | [phone] | [phone] | +--------+--------+ + + + + Encounter Details +--------+---------+ + + + | Date | Type | Department | Care Team | Description | +--------+---------+ + + + | 02/20/ | Office | Digestive Health | Katlyn Wheeler, | Biliary colic | | 2018 | Visit | Center at [facility] [address] | MD [address] | (Primary Dx) | | | | [address] | [address] | | | | | for Health and | [place] | | | | | [place], [address] | [address] | | | | | [place], [place] | [phone] | | | | | [address] | (Fax) | | | | | [phone] | | | +--------+---------+ + + + [...] + + + | Blood Pressure | 141/75 | 02/20/2018 2:08 PM | | | | | PDT | | + + + + + | Pulse | 63 | 02/20/2018 2:08 PM | | | | | PDT | | + + + + + | Temperature | - | - | | + + + + + | Respiratory Rate | - | - | | + + + + + | Oxygen Saturation | 99% | 02/20/2018 2:08 PM | | | | | PDT | | + + + + + | Inhaled Oxygen | - | - | | | Concentration | | | | + + + + + | Weight | 174.2 kg (384 lb 1.6 | 02/20/2018 2:08 PM | | | | oz) | PDT | | + + + + + | Height | 180.3 cm (5' 11") | 02/20/2018 2:08 PM | | | | | PDT | | + + + + + | Body Mass Index | 53.57 | 02/20/2018 2:08 PM | | | | | PDT | | + + + + + documented in this encounter Progress Notes Katlyn Wheeler MD - 02/20/2018 2:00 PM PDTDiscussed with the bariatric surgeons. If she is a candidate for weight-loss surgery, they are happy to remove her gallbladder at the henri e of her bariatric procedure. arKatlyn glass MD - 02/20/2018 2:00 PM PDT GENERAL SURGERY CONSULTATION History and Physical Consultation Date: 02/20/2018 Consulting Attending: Katlyn Weheler MD Referring Physician: Ancelmo Whitlock MD REASON FOR CONSULT: Epigasric pain, biliary colic HPI: Maria De Jesus Anna is a 27 yo female with a history of morbid obesity, DMII on metformin, MEHUL p rescribed CPAP, HTN, migraines who is currently being evaluated for bariatric surgery. She i s referred for epigastric pain suspected secondary to bilary colic. She has had intermittent epigastric pain for 3-4 years. It is associated with nausea. Charlo oscar factors include eating and drinking. She is unsure if symptoms are worse with fatty/ gr easy food, although prior encounter with local surgeon indicated her symptoms are worse with fatty meals. The quality of the pain is stabbing and twisting and can last a few minutes t o up to 2 hours. Applying pressure to the RUQ seems to ease the pain. She is having symptoms daily. Antacids don't help. It is different than her GERD. (GERD radiates up her esophagus and is burning in quality). She had a recent HIDA scan that showed normal EF but symptoms were reproduced with administration of CCK. She was seen by local surgeon but given her BMI, she was referred to [facility] for consideration for cholecystectomy. She says she started her bariatric evaluation back in September and anticipates surgery in Dece db if there are no issues. She says she had an abnormal EKG and just recently completed st ress test ([facility]) the results of which are not yet known/available. She is leaning tow ards bypass rather than sleeve. History of pericarditis 3 years ago. No history of abdominal surgery. Denies fevers, chills. She has lost weight about 20 lb for her surgery thus far (405 in September, 384 now). PAST MEDICAL HISTORY: Past Medical History: Diagnosis Date Asthma GERD (gastroesophageal reflux disease) HTN (hypertension) 2017 LVH (left ventricular hypertrophy) Shortness of breath Sleep apnea Type 2 diabetes mellitus (HCC) - Polycystic Ovarian Syndrome (PCOS) - Chronic pain - Carditis - Bipolar - Anxiety/ Depression PAST SURGICAL HISTORY: Past Surgical History Procedure Laterality Date Knee surgery Left SOCIAL HISTORY: Social History Substance Use Topics Smoking status: Never Smoker Smokeless tobacco: Never Used Alcohol use No FAMILY HISTORY: No [place], stroke, DMII Maternal grandfather colon cancer 75 yo MEDICATIONS: Current Medication List Name Sig BECLOMETHASONE DIPROPIONATE 40 MCG/ACTUATION AEROSOL INHALER Inhale 1 puff two times daily. CHOLECALCIFEROL (VITAMIN D3) 2,000 UNIT CAPSULE Take 1 capsule by mouth once daily. CYANOCOBALAMIN (VIT B-12) 1,000 MCG/ML INJECTION SOLUTION Inject 1,000 mcg under the skin ( SUBC) every thirty days. ERGOCALCIFEROL (VITAMIN D2) 50,000 UNIT CAPSULE Take 1 capsule by mouth every seven days. F or 12 weeks Indications: Vitamin D Deficiency (High Dose Therapy) HYDROCODONE 7.5 MG-ACETAMINOPHEN 325 MG TABLET Take by mouth. METFORMIN 1,000 MG TABLET Take by mouth. MULTIVITAMIN ORAL Take by mouth. TRI-PREVIFEM (28) ORAL Take by mouth. PANTOPRAZOLE 20 MG TABLET,DELAYED RELEASE Take 1 tablet by mouth two times daily. Indicatio ns: gastroesophageal reflux disease PROPRANOLOL 40 MG TABLET Take by mouth. RANITIDINE 150 MG CAPSULE 1 capsule by mouth 1-2 times per day as needed for breakthrough r eflux symptoms RIBOFLAVIN (VITAMIN B2) 100 MG TABLET Take 100 mg by mouth once daily. TOPIRAMATE 25 MG TABLET Take 1 tab daily for a week, then increase as instructed to 2 tabs twice a day ALLERGIES: Allergies Allergen Reactions Ibuprofen Hives Benzonatate Rash Depakote [Divalproex Sodium] Suicidal Ideation Doxycycline Rash Percocet [Oxycodone-Acetaminophen] Nausea and Vomiting [place] Oil Hives and Nausea and Vomiting Seroquel [Quetiapine Fumarate] Suicidal Ideation ROS: Review of systems negative except as noted above in HPI PHYSICAL EXAM: Ht 1.803 m (5' 11"), Wt 174.2 kg (384 lb 1.6 oz), BP 141/75, Pulse 63, SpO2 99%, BMI 53.57 kg/(m^2). Facility age limit for growth percentiles is 18 years. General: Alert and oriented, comfortable, NAD. Nontoxic appearing HEENT: Normocephalic. EOM grossly intact. No scleral icterus Neck: Supple, no JVD appreciated Respiratory: CTA bilaterally. Normal inspiratory effort Chest: Tender to palpation over over lower ribs and bilateral clavicles. Cardiovascular: RRR, no m/r/g Abdomen: obese. Soft, NT, ND. No rebound or guarding. Negative Curtis's sign Skin: no rashes Extremities: Warm and well perfused, no pitting edema Psych: mood and affect appropriate LABS: IMAGING: ASSESSMENT: Maria De Jesus Anna is a 27 y.o. Female with morbid obesity, currently undergoing preoperative evaluation for bariatric surgery who is referred for biliary colic. Recommend gallbladder b e removed at the time of her weight-loss surgery to minimize exposure to general anesthesia and the inherent risks associated with multiple abdominal procedures. If it is determined th at she is not a candidate for bariatric surgery, we will plan for laparoscopic cholecystecto my assuming her recent cardiac work-up reveals acceptable surgical risk. RECOMMENDATIONS: 1. Recommend cholecystectomy at time of bariatric surgery. Will forward evaluation to Chip amezcua for their input. 2. Patient counseled on warning signs/symptoms of acute gallbladder disease for which she s hould seek immediate medical attention, including severe persistent abdominal pain, intracta ble nausea/vomiting, fevers/chills. She acknowledged understanding. Katlyn Wheeler MD [facility] General Surgery documented in this e ncounter Plan of Treatment +--------+ + + + + | Date | Type | Specialty | Care Team | Description | +--------+ + + + + | 11/17/ | Video/TeleH | Pain Management | Florencio Lockett, | | | 2019 | silvianoh-Sched | | PhD [address] | | | | uled | | [place], [place] | | | | | | [address] | | | | | | [phone] | | | | | | | | +--------+ + + + + | 12/01/ | Video/TeleH | Pain Management | Florencio Lockett, | | | 2019 | ealth-Sched | | PhD [address] | | | | uled | | [place], [place] | | | | | | [address] | | | | | | [phone] | | | | | | | | +--------+ + + + + | 01/06/ | Office | Plastic Surgery | Kuldip Harrell MD | | | 2019 | Visit | | [address] | | | | | | [place], [place] | | | | | | [address] | | | | | | [phone] | | | | | | | | +--------+ + + + + documented as of this encounter Visit Diagnoses + + | Diagnosis | + + | Biliary colic - Primary Calculus of gallbladder without mention of cholecystitis or | | obstruction | + + documented in this encounter
--- OUTSIDE RECORDS SUMMARY | ~2019-11-17 | XMS | Encounter Summary ---
Demographics + + + | Address | [address] | | | [place] [address] | + + + | Home Phone | | + + + | Preferred Language | Unknown | + + + | Marital Status | | + + + | Jew Affiliation | NRP | + + + | Race | White | + + + | Ethnic Group | Not or | + + + Author + + + | Author | [facility] | + + + | Organization | [facility] | + + + | Address | Unknown | + + + | Phone | Unavailable | + + + Support + + +---------+ + | Name | Relationship | Address | Phone | + + +---------+ + | Jeovanny Hernández | ECON | Unknown | | + + +---------+ + Care Team Providers + +------+ + | Care Neurosurgical Nurse Practitioner Name | Role | Phone | + +------+ + | Alisha Stovall PA-C | PCP | | + +------+ + Reason for Visit PROC - Dept/Practice Procedure (Routine) +--------+--------+ + [...] | | geal reflux | [facility] | [place] for | | | | | disease, | Rd | Health and | | | | | esophagitis | [facility] [place] | Healing, | | | | | presence not | [address] | [address] | | | | | specified | Phone: | [place], [place] | | | | | Procedures | [phone] | [address] | | | | | CONSULT TO | Fax: | Phone: | | | | | GI PROCEDURE | [phone] | [phone] | | | | | UNIT: | | Fax: | | | | | ESOPHAGEAL | | | | | | | MANOMETRY | | | | | | | CONSULT TO | | | | | | | GI PROCEDURE | | | | | | | UNIT: | | | | | | | ESOPHAGEAL | | | | | | | MANOMETRY W | | | | | | | [address] [place] | | | | | | | ESOPHAGEAL | | | | | | | MOTILITY | | | | | | | STUDY | | | | | | | W/INTERP AND | | | | | | | REPORT [place] | | | | | | | G-ESOPH | | | | | | | REFLX TST | | | | | | | W/ELECTROD | | | +--------+--------+ + + + + Encounter Details +--------+ + + + + | Date | Type | Department | Care Team | Description | +--------+ + + + + | 01/12/ | Hospital | [facility] | Nurse, Gip [address] | | | 2018 | Encounter | [facility] [address] | [facility] | | | | | [address] [facility] for | Road [place], [place] | | | | | Health and Healing, | [address] | | | | | [address] | | | | | | [place], [place] | | | | | | [address] | | | | | | [phone] | | | +--------+ + + + [...] Florencio Lockett, | | | 2020 | ealt-Sched | | PhD [address] | | | | uled | | [place], [place] | | | | | | [address] | | | | | | [phone] | | | | | | | | +--------+ + + + + | 12/01/ | Video/TeleH | Pain Management | Florencio Lockett, | | | 2019 | ealth-Sched | | PhD [address] | | | | uled | | [place], [place] | | | | | | [address] | | | | | | [phone] | | | | | | | | +--------+ + + + + | 01/06/ | Office | Plastic Surgery | Kuldip Harrell MD | | | 2019 | Visit | | [address] | | | | | | [place], [place] | | | | | | [address] | | | | | | [phone] | | | | | | | | +--------+ + + + + documented as of this encounter Procedures + +--------+ + + + | Procedure Name | Priori | Date/Time | Associated Diagnosis | Comments | | | ty | | | | + +--------+ + + + | PH RETURN | Routin | 01/11/2018 | Gastroesophageal | Results for this | | | e | 5:27 PM | reflux disease, | procedure are in the | | | | PDT | esophagitis presence | results section. | | | | | not specified | | + +--------+ + + + documented in this encounter Results PH RETURN (01/11/2018 5:27 PM PDT) + + | Specimen | + + | | + + + +- + | Narrative | Performed At | + +- + | MRN: | PEE | | [id number] Date: 01/12/2018Patient Name: Maria De Jesus Gonzalez #: | ENDOSCOPY | | [id number] of : [id number]: [id number] Type: | | | OutpatientRoom: Motility RoomProcedure: Ambulatory | | | esophageal pH and impedance monitoringIndications: | | | Heartburn, Suspected esophageal reflux, Follow-up of | | | esophageal refluxProviders: RUBEN STUBBS, | | | (Doctor), DONNELL DRAPER RN (Nurse)Referring MD: JOE | | | LIZ, ACNPRequesting Provider: Medicines: Lidocaine | | | sprayComplications: No immediate complications.Procedure: | | | After obtaining informed consent, the probe catheter was | | | inserted. Throughout the procedure, the | | | patient's blood pressure, pulse, and | | | oxygen saturations were monitored.The | | | esophageal pH study was accomplished | | | without difficulty. The patient tolerated the procedure | | | well.Estimated Blood Loss: Estimated blood | | | loss: none.Findings: A multi-channel impedance, multi-channel | | | esophageal pH catheter was introduced. The catheter was then | | | positioned so the proximal channel was 37 cm above the lower | | | esophageal sphincter (LES). Probe positioning was determined by | | | manometry. The patient was instructed to continue a normal | | | lifestyle during the monitoring period. Reflux medication(s) taken by | | | the patient during the study consisted of the following: proton | | | pump inhibitor. The total duration of the ambulatory pH | | | monitoring study was 24 hours (and 0 minutes). LOWER | | | ESOPHAGEAL ACID EXPOSURE: - Lower Esophageal Acid Exposure | | | Time(s) for pH < 4.0: Upright Time: 8.7% Recumbent Time: | | | 5.1% Total Time: 6.4% DISTAL IMPEDANCE: # Upright | | | Events: 27 total # Recumbent Events: 21 total Total # | | | Reflux Events: 48 total SYMPTOM CORRELATION: - HEARTBURN: | | | 3 total episodes for analysis, 2 acid events, 1 non-acid event. | | | Acid reflux episodes correlate. Indeterminate if non-acid reflux | | | episodes correlate. SYMPTOM CORRELATION: - THROAT | | | CLEARIN total episodes for analysis, 0 acid events, 2 | | | non-acid events. Acid reflux episodes do not correlate. Non-acid | | | reflux episodes do not correlate. SYMPTOM CORRELATION: | | | - BELCHIN total episodes for analysis, 1 acid event, 3 | | | non-acid events. Acid reflux episodes do not correlate. | | | Non-acid reflux episodes do not correlate.Impression: | | | - Abnormal acid reflux study. - | | | Esophageal acid exposure time is abnormal during | | | supine and upright periods. Number of reflux episodes is | | | normal. Symptom correlation is of limited | | | value given limited symptom | | | diary.Recommendation: - Return to referring physician.RUBEN | | | MD ENOC01/26/2018 1:08:58 PMThis report has been signed | | | electronically.Number of Addenda: 0Note Initiated On: 01/12/2018 5:27 | | | PM | | | episodes do not correlate. | | | SYMPTOM CORRELATION: | | | - BELCHIN total episodes for analysis, 1 acid event, 3 non-acid | | | events. Acid reflux episodes do not correlate. Non-acid reflux episodes | | | do not correlate. | | |Impression: - Abnormal acid reflux study. | | | - Esophageal acid exposure time is abnormal during | | | supine and upright periods. Number of reflux episodes is | | | normal. Symptom correlation is of limited value given | | | limited symptom diary. | | |Recommendation: - Return to referring physician. | | |RUBEN STUBBS MD | | |01/26/2018 1:08:58 PM | | |This report has been signed electronically. | | |Number of Addenda: 0 | | |Note Initiated On: 01/12/2018 5:27 PM | | + +- + + +---------+ + + | Performing [...]
--- OUTSIDE RECORDS SUMMARY | ~2019-11-17 | XMS | Encounter Summary ---
Demographics + + + | Address | [address] | | | [place] [address] | + + + | Home Phone [...] Team Providers + +------+ + | Care Ticket Taker [place] Name | Role | Phone | + +------+ + | Alisha Stovall PA-C | PCP | | + +------+ + Encounter Details +--------+ + + + + | Date | Type | Department | Care Team | Description | +--------+ + + + + | 11/16/ | MyChart | Cardiology General | | Referral to | | 2017 | Encounter | at [facility] [address] | | Cardiology | | | | [facility] | | | | | | Health and Healing, | | | | | | [facility] | | | | | | [place], [place] | | | | | | [address] | | | | | | [phone] | | | +--------+ + + + [...] | | | | uled | | [place], [place] | | | | | | [address] | | | | | | [phone] | | | | | | | | +--------+ + + + + | 12/01/ | Video/TeleH | Pain Management | Florencio Lockett, | | | 2019 | ealth-Sched | | PhD [address] | | | | uled | | [place], [place] | | | | | | [address] | | | | | | [phone] | | | | | | | | +--------+ + + + + | 01/06/ | Office | Plastic Surgery | Kuldip Harrell MD | | 2019 | Visit | | [address] | | | | | | [place], [place] | | | | | | [address] | | | | | | [phone] | | | | | | | | +--------+ + + + + documented as of this encounter Visit Diagnoses Not on filedocumented in this encounter"
--- OUTSIDE RECORDS SUMMARY | ~2019-11-17 | XMS | Encounter Summary ---
Demographics + + + | Address | [address] | | | [place] [address] | + + + | Home Phone [...] + + | Author | [facility] | + + + | Organization | [facility] | + + + | Address | Unknown | + + + | Phone | Unavailable | + + + Support + + +---------+ + | Name | Relationship | Address | Phone | + + +---------+ + | Jeovanny Hernández | ECON | Unknown | | + + +---------+ + Care Team Providers + +------+ + | Care Marketing Strategy Lead Name | Role | Phone | + +------+ + | Alisha Stovall PA-C | PCP | | + +------+ + Encounter Details +--------+--------+ + + + | Date | Type | Department | Care Team | Description | +--------+--------+ + + + | 10/04/ | Refill | Digestive Health | Kenan Norton, | | | 2019 | | Center at [facility] [address] | MD [address] | | | | | [address] | [facility] [place] | | | | | for Health and | [address] | | | | | Healing, [address] | [phone] | | | | | [place], [place] | | | | | | [address] | | | | | | [phone] | | | +--------+--------+ + + + [...] | | | | uled | | [place], [place] | | | | | | [address] | | | | | | [phone] | | | | | | | | +--------+ + + + + | 12/01/ | Video/TeleH | Pain Management | Florencio Lockett, | | | 2019 | ealth-Sched | | PhD [address] | | | | uled | | [place], [place] | | | | | | [address] | | | | | | [phone] | | | | | | | | +--------+ + + + + | 01/06/ | Office | Plastic Surgery | Kuldip Harrell MD | | | 2020 | Visit | | [address] | | | | | | [place] | | | | | | [address] | | | | | | [phone] | | | | | | | | +--------+ + + + + documented as of this encounter Visit Diagnoses Not on filedocumented in this encounter"
--- OUTSIDE RECORDS SUMMARY | ~2019-11-17 | XMS | Encounter Summary ---
Demographics + + + | Address | [address] | | | [place] [address] | + + + | Home Phone | | + + + | Preferred Language | Unknown | + + + | Marital Status | | + + + | Baptism Affiliation | NRP | + + + | Race | White | + + + | Ethnic Group | Not or | + + + Author + + + | Author | [facility] | + + + | Organization | [facility] | + + + | Address | Unknown | + + + | Phone | Unavailable | + + + Support + + +---------+ + | Name | Relationship | Address | Phone | + + +---------+ + | Jeovanny Hernández | ECON | Unknown | | + + +---------+ + Care Team Providers + +------+ + | Care Property Coordinator Name | Role | Phone | + [...] Description | +--------+---------+ + + + | 05/30/ | Surgery | [id number] | Kenan Norton, | LAPAROSCOPIC GASTRIC | | 2019 | | [address] | [address] | TUBE PLACEMENT, | | | | Rd [facility] | [place], [place] | DIAGNOSTIC | | | | Hospital Admitting | [address] | LAPAROSCOPY; | | | | Desk Located on the | [phone] | | | | | 9th floor | | | | | | [place], [place] | | | | | | [address] | | | +--------+---------+ + + + [...] + + + | Blood Pressure | 114/57 | 06/02/2019 8:36 PM | | | | | PST | | + + + + + | Pulse | 56 | 06/02/2019 8:36 PM | | | | | PST | | + + + + + | Temperature | 36.6 C (97.9 F) | 06/02/2019 8:36 PM | | | | | PST | | + + + + + | Respiratory Rate | 14 | 06/02/2019 8:36 PM | | | | | PST | | + + + + + | Oxygen Saturation | 99% | 06/02/2019 8:36 PM | | | | | PST | | + + + + + | Inhaled Oxygen | - | - | | | Concentration | | | | + + + + + | Weight | - | - | | + + + + + | Height | 180.3 cm (5' 11") | 05/30/2019 7:10 AM | | | | | PST [...] documented as of this encounter Discharge Summaries Lucero Arias MD - 06/02/2019 10:30 AM PSTFormatting of this note might be different from adryan vann. [facility]IENT DISCHARGE SUMMARY Author: IVONNE Yusuf-ACNP Attending Physician: Kenan Norton MD PCP: Alisha Monae PA-C Admission Date: 05/30/2019 Discharge Date: 02 Jun 2019 Diagnoses: Epigastric pain GERD Nausea and vomiting Acute post-operative pain Poor nutrition Acute urinary retention Procedures: 05/30/2019 1. Diagnostic laparoscopy 2. Closure of Cee's defect 3. Laparoscopic gastrostomy tube placement 4. Esophagogastroscopy Hospital Course: Maria De Jesus Anna is a 28 y.o. female with history of LRYGB and cholecystectomy on 09/24/2018, post-op course complicated by persistent nausea, occasional vomiting, poor po intake and mu ltiple food intolerances, dehydration requiring IVF infusions, as well as epigastric pain. I t was decided the best course of action was for patient to be admitted for ex lap and g tube placement to assist with nutrition. She was admitted to [facility] 05/30/2019 for the above list ed procedures. She tolerated the procedure well with no complications. She was kept [facility] for observation. Her diet was advanced to a stage 4 bariatric diet and had adequate PO in take during her hospital stay. Tube feeds will be used to supplement her nutrition as needed when not tolerating PO. She also was seen by the dietitian who provided nutritional tube fe ed recommendations. Tube feeds were initiated inhouse but will continue to advance to goal o n an outpatient basis. She was connected with a tube feed company to continue feeds and prov calvin education. Our nurses also provided education on g-tube management. The patient did struggle with post op pain control. We started multi-modal pain control as well as got our pain services involved in her care and administered a tap block in general r egion of g tube site. She was started on valium for muscle spasms which improved her pain. She developed acute urinary retention post-operatively requiring a olmos catheter. She was unable to void following olmos removal she the olmos catheter was re-inserted and she will p resent to clinic on 06/04 for removal of the catheter. On day of discharge, pain was well controlled on PO meds, she was ambulating without assist ance, tolerating tube feeds/diet appropriately. SHe will follow up in clinic with Dr. Norton in 2 weeks. Medications: Medication List START taking these medications acetaminophen 500 mg Tab Commonly known as: TYLENOL Take 2 tablets by mouth every six hours as needed for mild pain. diazePAM 5 mg/5 mL (1 mg/mL) Soln Commonly known as: VALIUM 2 mL by feeding tube route every six hours as needed. gabapentin 250 mg/5 mL Soln Commonly known as: NEURONTIN Take 12 mL by mouth every eight hours as needed (multi-modal pain control). glycerin (ADULT) Supp Unwrap and insert 1 suppository rectally once daily as needed. Remove ground support equipment fitter, insert 1 suppository into rectum and retain for about 15 minutes. HYDROmorphone 1 mg/mL Liqd Commonly known as: DILAUDID 2-4 mL by feeding tube route every four hours as needed. lidocaine 5 % Ptmd Commonly known as: LIDODERM Apply 1 patch to skin every twenty-four hours. Apply patch to most painful area; Patch may remain in place for up to 12 hours in any 24-hour period. Ok for OTC patches if not covered by insurance. Start taking on: June 03, 2019 magnesium hydroxide 400 mg/5 mL Susp Commonly known as: MILK OF MAGNESIA 30 mL by feeding tube route two times daily. mineral oil Enem Commonly known as: FLEET MINERAL OIL Insert 133 mL rectally once daily as needed. naloxone 0.4 mg/mL Soln Commonly known as: NARCAN Inject 1 mL into the vein (IV) as needed for suspected opioid overdose. ondansetron ODT 4 mg Tbdi Commonly known as: ZOFRAN ODT Dissolve 1 tablet on tongue and swallow every twelve hours as needed for nausea/vomiting. prochlorperazine 5 mg Tab Commonly known as: COMPAZINE Take 1-2 tablets by mouth every six hours as needed for nausea/vomiting. Max dose: 40 mg/da y scopolamine 1 mg over 3 days Pt3d Commonly known as: TRANSDERM-SCOP Apply 1 patch to skin every seventy-two hours. Start taking on: June 05, 2019 tamsulosin 0.4 mg Cap Commonly known as: FLOMAX Take 1 capsule by mouth once daily for 2 days. Start taking on: June 03, 2019 CONTINUE taking these medications albuterol 90 mcg/actuation Hfaa Commonly known as: PROVENTIL, VENTOLIN Inhale 2 puffs by mouth two times daily. cloNIDine HCl 0.1 mg Tab Commonly known as: CATAPRES Take 0.1 mg by mouth once daily. FLUoxetine 40 mg Cap Commonly known as: PROZAC Take 40 mg by mouth once daily. RVWN-IDLR-SMKIJ (PABA) ORAL Take 1 Dose by mouth once daily. hydrOXYzine 25 mg Tab Commonly known as: ATARAX Take 25 mg by mouth two times daily. LAMICTAL ORAL Take 1 tablet by mouth two times daily. MEDICATION HELP Take 1 tablet by mouth four times daily. Bariatric Fusion mirtazapine 15 mg Tab Commonly known as: REMERON Take 1 tablet by mouth once daily in the evening. mirtazapine at 15mg and titrate up to 30m g as tolerated after 2 weeks Indications: s/p gastric bypass pantoprazole 20 mg Tbec Commonly known as: PROTONIX Take 1 tablet by mouth two times daily. Indications: gastroesophageal reflux disease promethazine 25 mg Tab Commonly known as: PHENERGAN Take 25 mg by mouth as needed for nausea/vomiting. QVAR 40 mcg/actuation Aero Generic drug: beclomethasone Inhale 1 puff two times daily. Indications: Controller Medication for Asthma simethicone chew 80 mg Chew Commonly known as: MYLICON Chew and swallow 1 tablet four times daily as needed for gas/bloating. topiramate 50 mg Tab Commonly known as: TOPAMAX 50 mg two times daily. Indications: Migraine Prevention Diet Instructions Bariatric stage 4 diet as tolerated Tube feeds recs: Nutren 1.5 (or equivalent), initiate at 10 mL/hr, advance gradually to goal rate 40 ml/hr Activity Instructions Activity Instructions a. Do not do any strenuous exercise until your provider has given you permission to do so. b. Walking will be your main form of physical activity. It is important to move frequently throughout the day, increasing your activity level and walking often. It is important to sta rt slow, but increase your activity each day. c. Do not drive while on narcotic medications. d. Follow abdominal precautions. Additional Instructions Wound Care: Keep incision clean and dry. No dressings are needed. You may shower. Please pat incisional area dry. Do not rub the incisions; allow for crust to fall off on its own. No baths, hot t ubs or swimming for 2 weeks if laparoscopic and 4 weeks if open surgery. Dehydration: It is extremely important for you to stay hydrated. You should be taking in 64 ounces of fl uid daily. You should also be urinating at least four times a day. Please monitor and record your daily fluid intake, and report to us immediately if you are not urinating at least fou r times a day or are experiencing pain with urination. You are being sent home with a gastrostomy tube: Type: G-tube G-tube (Gastric tube): is a tube directly into the stomach. -A G-tube can be used for emptying or decompressing the stomach if it gets too full and is unable to digest contents. It can be used for tube feedings if you are unable to eat enough calories orally. -Flush the tube with 20-30ml water before and after tube feedings or any medications to hel p keep the tube from clogging. -Flush G-tube with 20-30ml water once a day if not in use to help keep from clogging. -Use tape or drain securing device to keep tube from tugging. -ok to shower with tube in place. Do not soak in water (bath or pool) while tube is in plac e. -if needed you can put gauze around the insertion site if you notice any leaking. If the le aking becomes significant please contact the general surgery clinic. -please inspect the insertion site every day after showering. Make sure the sutures that ho ld the tube in place are still intact and not getting too loose or falling out. If there is any redness, make sure it is not spreading or getting more painful. If you have any concerns about your tube please contact us: Excessive bleeding or drainage, or pus at the drain site; Fevers (greater than 101.5) or chills; Increased pain that is not relieved by pain medications; Persistent nausea, vomiting, or severe diarrhea. During normal business hours please call [facility] . For 'after hours' URGENT problems please call the [facility] single needle tufting machine operator at and ask fo r the "Red Surgery resident on-call". For chest pain, severe symptoms or difficulty breathing please call 911 or go to your local ER. Do not drive yourself to the ER if you are having chest pain. Nausea/Vomiting/Difficulty swallowing: Could be from not ingesting appropriate food/drink, eating too much or too fast. Do not dri nk with meals, leave at least 30 minutes between eating and drinking to decrease overfilling of the stomach. Take nausea medication provided to you if you feel nauseated. It is importa nt that you meet your goal of fluid intake (64 ounces/day) Constipation: It is very important to avoid constipation and straining while trying to have a bowel movem ent. It is common to experience constipation after your operation and when taking narcotics. Please use laxative medications such Polyethylene glycol (Miralax) or glycerin suppositorie s to assist you with having regular bowel movements. Please work towards having a bowel move ment every 1-2 days. A hot drink each morning will also help the sphincter to work in pushin g the stool forward. It is important to stay hydrated, about 45-60 fluid ounces daily, and t his will help your bowel function. Pain Management: It is expected that you will experience pain after your operation, and it is important to h ave you manage your pain to increase your activity, sleep and overall healing. You will have a prescription for pain relief. This should be taken every 4-6 hours per your instructions. You should decrease the amount of hydromorphone you take each day as tolerated. Your pain should slowly and steadily diminish [...] plan for tapering off of pain medication. Consu lt your pharmacist to construct a proper tapering schedule. Clinic staff is able to help you develop a tapering schedule as well. Please be aware that if you have chronic pain issues, or you require pain medication for an extended period of time, you will likely be given inst ructions to follow up with your PCP or a pain management provider. Refill Instructions: Your pain medications should be taken as needed, as prescribed by your healthcare provider. You should plan to taper down your dosing within the first 2-3 days postop. Refills are not available outside of clinic hours or on weekends or holidays. Narcotic pain medications req uire a written prescription and must be signed by a provider and mailed to you or picked up. If you need ongoing pain medication beyond the usual recovery period, you will be directed to follow up with your primary care provider (PCP) as this clinic does not provide ongoing c hronic pain management services. Learning About Urinary Catheter Care to Prevent Infection What is a urinary catheter? A urinary catheter is a flexible plastic tube used to drain urine from your bladder when yo u can't urinate on your own. The catheter allows urine to drain from the bladder into a bag. Two types of drainage bags may be used with a urinary catheter. A bedside bag is a large bag that you can hang on the side of your bed or on a chair. Yo u can use it overnight or anytime you will be sitting or lying down for a long time. A leg bag is a small bag that you can use during the day. It is usually attached to your thigh or calf and hidden under your clothes. Having a urinary catheter increases your risk of getting a urinary tract infection. Germs m ay get on the catheter and cause an infection in your bladder or kidneys. The longer you hav e a catheter, the more likely it is that you will get an infection. You can help prevent thi s problem with good hygiene and careful handling of your catheter and drainage bags. How can you help prevent infection? Take care to be clean Always wash your hands well before and after you handle your catheter. Clean the skin around the catheter twice a day using soap and water. Dry with a clean to wel afterward. You can shower with your catheter and drainage bag in place unless your docto r told you not to. When you clean around the catheter, check the surrounding skin for signs of infection. L ook for things like pus or irritated, swollen, red, or tender skin around the catheter. Be careful with your drainage bag Always keep the drainage bag below the level of your bladder. This will help keep urine from flowing back into your bladder. Check often to see that urine is flowing through the catheter into the drainage bag. Empty the drainage bag when it is half full. This will keep it from overflowing or backi ng up. When you empty the drainage bag, do not let the tubing or drain spout touch anything. Be careful with your catheter Do not unhook the catheter from the drain tube. That could let germs get into the tube. Make sure that the catheter tubing does not get twisted or kinked. Do not tug or pull on the catheter. And make sure that the drainage bag does not drag or pull on the catheter. Do not put powder or lotion on the skin around the catheter. Talk with your doctor about your options for sexual intercourse while wearing a catheter . How do you empty a urine drainage bag? If your doctor has asked you to keep a record, write down the amount of urine in the bag be fore you empty it. Wash your hands before and after you touch the bag. 1. Remove the drain spout from its sleeve at the bottom of the drainage bag. 2. Open the valve on the drain spout. Let the urine flow out into the toilet or a container . Be careful not to let the tubing or drain spout touch anything. 3. After you empty the bag, close the valve. Then put the drain spout back into its sleeve at the bottom of the collection bag. How do you add a bedside bag to a leg bag? Wash your hands before and after you handle the bags. 1. Empty the leg bag attached to the catheter. 2. Put a clean towel under the leg bag. 3. Use an alcohol wipe to clean the tip of the bedside bag. Then connect the bedside bag to the leg bag. How can you clean a bedside drainage bag? Many people clean their bedside bag in the morning if they switch to a leg bag. To clean a bedside drainage ba. Remove the bedside bag from the leg bag. 2. Fill the bag with 2 parts vinegar and 3 parts water. Let it stand for 20 minutes. 3. Empty the bag, and let it air dry. When should you call for help? Call your doctor now or seek immediate medical care if: You have symptoms of a urinary infection. These may include: ? Pain or burning when you urinate. ? A frequent need to urinate without being able to pass much urine. ? Pain in the flank, which is just below the rib cage and above the waist on either side of the back. ? Blood in your urine. ? A fever. Your urine smells bad. You see large blood clots in your urine. No urine or very little urine is flowing into the bag for 4 or more hours. Watch closely for changes in your health, and be sure to contact your doctor if: The area around the catheter becomes irritated, swollen, red, or tender, or there is pus draining from it. Urine is leaking from the place where the catheter enters your body. Follow-up care is a gillespie part of your treatment and safety. Be sure to make and go to all ap pointments, and call your doctor if you are having problems. It's also a good idea to know y our test results and keep a list of the medicines you take. Where can you learn more? To learn more about "Learning About Urinary Catheter Care to Prevent Infection", log into y our [employer] account at [email or web address]. You can enter U010 in the "[employer] search box. Not on [employer]? Review the [employer] section of your After Visit Summary for directions on ho w to sign up. Current as of: April 11, 2018 Content Version: [id number] [employer]. Care instructions adapted under license by [facility]. If you have questions about a medical condition or this instr uction, always ask your healthcare professional. [employer] disclaims any denise anty or liability for your use of this information. Vitals on discharge: Ht 1.803 m (5' 11"), BP 108/54, Pulse 51, Temperature 36.6 C (97.9 F), Temperature source Oral, RR 16, SpO2 99%, BMI 33.86 kg/(m^2). Facility age limit for g rowth percentiles is 18 years. Condition on discharge: Stable Physical Exam General: Well appearing, in no acute distress. HEENT: Normocephalic. Respiratory: Breathing comfortably on RA. Cardiovascular: Regular rate. Abdomen: Soft, tender to palpation of LLQ and around j-tube, non-distended. J-tube in place . Incisions well-approximated, c/d/i. : Olmos catheter in place with clear yellow urine. Extremities: Moving all 4 extremities. Neuro: Awake and alert. Grossly intact. Outstanding labs/studies: None Lucero Arias MD PhD [facility] General Surgery Red Surgery Pager # [phone] Associated attestation - Aysha Meyer MD - 06/02/2019 3:58 PM PSTI saw and evaluated the patient. I agree with the findings and the plan of care as documented in the resident s note. Aysha Meyer MD [facility] [address] [place] [address] documented in this encounter Discharge Instructions Discharge Instr - AVS First Page Lucero Arias MD - 06/02/2019 10:33 AM PSTWhen to Call the Doctor - If your [...] hours by calling the surgery office at [phone]. - After hours, weekends and holidays, you may call the hospital single needle tufting machine operator at [phone] an d have the biodiesel plant operations engineer Red Surgery Team paged.Electronically signed by Lucero Arias MD at 10:33 AM PST Discharge Instr - Activity Nellie Ybarra AGACNP - 05/30/2019 3:23 PM PSTActivity Instr uctions a. Do not do any strenuous exercise until your provider has given you permission to do so. b. Walking will be your main form of physical activity. It is important to move frequently throughout the day, increasing your activity level and walking often. It is important to sta rt slow, but increase your activity each day. c. Do not drive while on narcotic medications. d. Follow abdominal precautions.Electronically signed by JASON López at 3:25 PM PST Discharge Instr - Diet Lucero Arias MD - 05/30/2019 3:25 PM PSTBariatric stage 4 diet as t olerated Tube feeds recs: Nutren 1.5 (or equivalent), initiate at 10 mL/hr, advance gradually to goal rate 40 ml/hr Resume bariatric vitamins: -Complete MVI + iron x 2/day -Calcium Citrate + Vitamin D 500 mg TID (2h apart from MVI) -1000 units vitamin D3 daily -500 mcg vit B12 daily (or monthly injection) Discharge Instr - Diagnoses Lucero Arias MD - 05/30/2019 2:52 PM PSTEpigastric pain GERD Nausea and vomiting Acute post-operative pain Poor nutrition Acute urinary retention Discharge Instr - Procedures Nellie Ybarra AGACNP - 05/30/2019 2:53 PM PST05/30/2019 1. Diagnostic laparoscopy 2. Closure of Cee's defect 3. Laparoscopic gastrostomy tube placement 4. Esophagogastroscopy Discharge Instr - Hospital Course Lucero Arias MD - 05/30/2019 2:55 PM PSTMaria De Jesus Anna is a 28 y.o. female with history of LRYGB and cholecystectomy on 09/24/2018, post-op course c omplicated by persistent nausea, occasional vomiting, poor po intake and multiple food intol erances, dehydration requiring IVF infusions, as well as epigastric pain. It was decided the best course of action was for patient to be admitted for ex lap and g tube [facility] with nutrition. She was admitted to [facility] 05/30/2019 for the above listed procedures. morelia tolerated the procedure well with no complications. She was kept over night for observatio n. Her diet was advanced to a stage 4 bariatric diet and had adequate PO intake during her h ospital stay. Tube feeds will be used to supplement her nutrition as needed when not tolerat ing PO. She also was seen by the dietitian who provided nutritional tube feed recommendation s. Tube feeds were initiated inhouse but will continue to advance to goal on an outpatient b asis. She was connected with a tube feed company to continue feeds and provide education. Ou r nurses also provided education on g-tube management. The patient did struggle with post op pain control. We started multi-modal pain control as well as got our pain services involved in her care and administered a tap block in general r egion of g tube site. She was started on valium for muscle spasms which improved her pain. She developed acute urinary retention post-operatively requiring a olmos catheter. She was unable to void following olmos removal she the olmos catheter was re-inserted and she will p resent to clinic on 06/04 for removal of the catheter. On day of discharge, pain was well controlled on PO meds, she was ambulating without assist ance, tolerating tube feeds/diet appropriately. SHe will follow up in clinic with Dr. Norton in 2 weeks. Discharge Instr - Electronic Signature Lucero Arias MD - 06/02/2019 10:33 AM PSTAfter Visit Summary Signature Electronically signed by: Lucero Arias MD, 06/02/2019 at 10:33 AM Additional Instructions Lucero Arias MD - 05/30/2019 3:27 PM PSTWound Care: Keep incision clean and dry. No dressings are needed. You may shower. Please pat incisional area dry. Do not rub the incisions; allow for crust to fall off on its own. No baths, hot t ubs or swimming for 2 weeks if laparoscopic and 4 weeks if open surgery. Dehydration: It is extremely important for you to stay hydrated. You should be taking in 64 ounces of fl uid daily. You should also be urinating at least four times a day. Please monitor and record your daily fluid intake, and report to us immediately if you are not urinating at least fou r times a day or are experiencing pain with urination. You are being sent home with a gastrostomy tube: Type: G-tube G-tube (Gastric tube): is a tube directly into the stomach. -A G-tube can be used for emptying or decompressing the stomach if it gets too full and is unable to digest contents. It can be used for tube feedings if you are unable to eat enough calories orally. -Flush the tube with 20-30ml water before and after tube feedings or any medications to hel p keep the tube from clogging. -Flush G-tube with 20-30ml water once a day if not in use to help keep from clogging. -Use tape or drain securing device to keep tube from tugging. -ok to shower with tube in place. Do not soak in water (bath or pool) while tube is in plac e. -if needed you can put gauze around the insertion site if you notice any leaking. If the le aking becomes significant please contact the general surgery clinic. -please inspect the insertion site every day after showering. Make sure the sutures that ho ld the tube in place are still intact and not getting too loose or falling out. If there is any redness, make sure it is not spreading or getting more painful. If you have any concerns about your tube please contact us: Excessive bleeding or drainage, or pus at the drain site; Fevers (greater than 101.5) or chills; Increased pain that is not relieved by pain medications; Persistent nausea, vomiting, or severe diarrhea. During normal business hours please call [facility] . For 'after hours' URGENT problems please call the [facility] single needle tufting machine operator at and ask fo r the "Red Surgery resident on-call". For chest pain, severe symptoms or difficulty breathing please call 911 or go to your local ER. Do not drive yourself to the ER if you are having chest pain. Nausea/Vomiting/Difficulty swallowing: Could be from not ingesting appropriate food/drink, eating too much or too fast. Do not dri nk with meals, leave at least 30 minutes between eating and drinking to decrease overfilling of the stomach. Take nausea medication provided to you if you feel nauseated. It is importa nt that you meet your goal of fluid intake (64 ounces/day) Constipation: It is very important to avoid constipation and straining while trying to have a bowel movem ent. It is common to experience constipation after your operation and when taking narcotics. Please use laxative medications such Polyethylene glycol (Miralax) or glycerin suppositorie s to assist you with having regular bowel movements. Please work towards having a bowel move ment every 1-2 days. A hot drink each morning will also help the sphincter to work in pushin g the stool forward. It is important to stay hydrated, about 45-60 fluid ounces daily, and t his will help your bowel function. Pain Management: It is expected that you will experience pain after your operation, and it is important to h ave you manage your pain to increase your activity, sleep and overall healing. You will have a prescription for pain relief. This should be taken every 4-6 hours per your instructions. You should decrease the amount of hydromorphone you take each day as tolerated. Your pain should slowly and steadily diminish [...] plan for tapering off of pain medication. Consu lt your pharmacist to construct a proper tapering schedule. Clinic staff is able to help you develop a tapering schedule as well. Please be aware that if you have chronic pain issues, or you require pain medication for an extended period of time, you will likely be given inst ructions to follow up with your PCP or a pain management provider. Refill Instructions: Your pain medications should be taken as needed, as prescribed by your healthcare provider. You should plan to taper down your dosing within the first 2-3 days postop. Refills are not available outside of clinic hours or on weekends or holidays. Narcotic pain medications req uire a written prescription and must be signed by a provider and mailed to you or picked up. If you need ongoing pain medication beyond the usual recovery period, you will be directed to follow up with your primary care provider (PCP) as this clinic does not provide ongoing c hronic pain management services. Learning About Urinary Catheter Care to Prevent Infection What is a urinary catheter? A urinary catheter is a flexible plastic tube used to drain urine from your bladder when yo u can't urinate on your own. The catheter allows urine to drain from the bladder into a bag. Two types of drainage bags may be used with a urinary catheter. A bedside bag is a large bag that you can hang on the side of your bed or on a chair. You c an use it overnight or anytime you will be sitting or lying down for a long time. A leg bag is a small bag that you can use during the day. It is usually attached to your th igh or calf and hidden under your clothes. Having a urinary catheter increases your risk of getting a urinary tract infection. Germs m ay get on the catheter and cause an infection in your bladder or kidneys. The longer you hav e a catheter, the more likely it is that you will get an infection. You can help prevent thi s problem with good hygiene and careful handling of your catheter and drainage bags. How can you help prevent infection? Take care to be clean Always wash your hands well before and after you handle your catheter. Clean the skin around the catheter twice a day using soap and water. Dry with a clean towel afterward. You can shower with your catheter and drainage bag in place unless your doctor t old you not to. When you clean around the catheter, check the surrounding skin for signs of infection. Look for things like pus or irritated, swollen, red, or tender skin around the catheter. Be careful with your drainage bag Always keep the drainage bag below the level of your bladder. This will help keep urine fro m flowing back into your bladder. Check often to see that urine is flowing through the catheter into the drainage bag. Empty the drainage bag when it is half full. This will keep it from overflowing or backing up. When you empty the drainage bag, do not let the tubing or drain spout touch anything. Be careful with your catheter Do not unhook the catheter from the drain tube. That could let germs get into the tube. Make sure that the catheter tubing does not get twisted or kinked. Do not tug or pull on the catheter. And make sure that the drainage bag does not drag or pu ll on the catheter. Do not put powder or lotion on the skin around the catheter. Talk with your doctor about your options for sexual intercourse while wearing a catheter. How do you empty a urine drainage bag? If your doctor has asked you to keep a record, write down the amount of urine in the bag be fore you empty it. Wash your hands before and after you touch the bag. Remove the drain spout from its sleeve at the bottom of the drainage bag. Open the valve on the drain spout. Let the urine flow out into the toilet or a container. B e careful not to let the tubing or drain spout touch anything. After you empty the bag, close the valve. Then put the drain spout back into its sleeve at the bottom of the collection bag. How do you add a bedside bag to a leg bag? Wash your hands before and after you handle the bags. Empty the leg bag attached to the catheter. Put a clean towel under the leg bag. Use an alcohol wipe to clean the tip of the bedside bag. Then connect the bedside bag to th e leg bag. How can you clean a bedside drainage bag? Many people clean their bedside bag in the morning if they switch to a leg bag. To clean a bedside drainage bag: Remove the bedside bag from the leg bag. Fill the bag with 2 parts vinegar and 3 parts water. Let it stand for 20 minutes. Empty the bag, and let it air dry. When should you call for help? Call your doctor now or seek immediate medical care if: You have symptoms of a urinary infection. These may include: Pain or burning when you urinate. A frequent need to urinate without being able to pass much urine. Pain in the flank, which is just below the rib cage and above the waist on either side of t he back. Blood in your urine. A fever. Your urine smells bad. You see large blood clots in your urine. No urine or very little urine is flowing into the bag for 4 or more hours. Watch closely for changes in your health, and be sure to contact your doctor if: The area around the catheter becomes irritated, swollen, red, or tender, or there is pus dr cotton from it. Urine is leaking from the place where the catheter enters your body. Follow-up care is a gillespie part of your treatment and safety. Be sure to make and go to all ap pointments, and call your doctor if you are having problems. It's also a good idea to know y our test results and keep a list of the medicines you take. Where can you learn more? To learn more about "Learning About Urinary Catheter Care to Prevent Infection", log into y our [employer] account at [email or web address]. You can enter U010 in the "[employer] y" search box. Not on [employer]? Review the MyChart section of your After Visit Summary for directions on leonel huynh to sign up. Current as of: April 11, 2018 Content Version: [id number] [employer]. Care instructions adapted under license by [facility]. If you have questions about a medical condition or this instr uction, always ask your healthcare professional. [employer] disclaims any denise anty or liability for your use of this information. Marilee Gautam, NAREN - 06/02/2019Patient Education Materials: Feeding tube, gastrostomy tube, Urinary olmos catheter care Additional Instructions: See AVS for additional information. Gastrostomy tube care; Tube Fe edings please follow up with home health; urinary catheter care please make sure to complete proper hand hygiene. Discharge Nurse: MARILEE THOMAS RN Date: 06/02/2019 Discharge Time: 12:38 PM AttachmentsThe following attachments cannot be sent through Care Everywhere.Feeding Tube: G eneral Info (Gabonese)Tube Feeding: Home (Gabonese)PEG (Percutaneous Endoscopic Gastrostomy): Post-op (Gabonese)[facility]: Gastrostomy Tube Use and Care (Gabonese)Indwelling Urinary Catheter Ca re: General Info (Gabonese)documented in this encounter Medications at Time of Discharge + + + +---------+ + + | Medication | Sig | Dispensed | Refills | Start | End Date | | | | | | Date | | + + + +---------+ + + | acetaminophen 500 | Take 2 tablets by | | 0 | 06/02/19 | | | mg oral tablet | mouth every six | | | 20 | | | | hours as needed for | | | | | | | mild pain. | | | | | + + + +---------+ + + | albuterol 90 | Inhale 2 puffs by | | 0 | | | | mcg/actuation | mouth two times | | | | | | inhalation HFA | daily. | | | | | | aerosol inhaler | | | | | | + [...] + + + +---------+ + + | calcium-vitamin D | Take 1 tablet by | 30 | 1 | 06/02/19 | | | 500 mg(1,250mg) -200 | mouth three times | tablet | | 20 | | | unit oral tablet | daily with meals. | | | | | | | Take 2 hours apart | | | | | | | from multivitamin | | | | | + + + +---------+ + + | cyanocobalamin 500 | Take 1 tablet by | | 0 | 06/02/19 | | | mcg oral tablet | mouth once daily. | | | 20 | | + + + +---------+ + + | FLUoxetine 40 mg | Take 40 mg by mouth | | 0 | | | | oral capsule | once daily. | | | | | + + + +---------+ + + | glycerin (ADULT) | Unwrap and insert 1 | | 0 | 06/02/19 | | | rectal suppository | suppository rectally | | | 20 | | | | once daily as | | | | | | | needed. Remove foil | | | | | | | wrapper, insert 1 | | | | | | | suppository into | | | | | | | rectum and retain | | | | | | | for about 15 | | | | | | | minutes. | | | | | + + + +---------+ + + | lamotrigine | Take 1 tablet by | | 0 | | | | (LAMICTAL ORAL) | mouth two times | | | | | | | daily. | | | | | + + + +---------+ + + | lidocaine 5 % | Apply 1 patch to | 10 | 0 | 02/10/20 | | | topical adhesive | skin every 24 hours. | patch | | 20 | | | patch,medicated | Apply patch to most | | | | | | | painful area; [...] | insurance. | | | | | + + + +---------+ + + | MEDICATION HELP | Take 1 tablet by | | 0 | | | | | mouth four times | | | | | | | daily. Bariatric | | | | | | | Fusion | | | | | + + + +---------+ + + | mineral oil rectal | Insert 133 mL | 133 mL | 0 | 06/02/19 | | | enema | rectally once daily | | | 20 | | | | as needed | | | | | | | (constipation). | | | | | + + + +---------+ + + | Multivitamin with | Take 2 tablets by | 60 | 1 | 06/02/19 | | | Iron-Mineral oral | mouth once daily. | tablet | | 20 | | | tablet | | | | | | + + + +---------+ + + | | Take 1 Dose by mouth | | 0 | | | | mv,uri,iron,mn/folic | once daily. | | | | | | acid/chol | | | | | | | ([id number] | | | | | | | (PABA) ORAL) | | | | | | + + + +---------+ + + | naloxone (NARCAN) | Instill 1 spray in | 2 each | 0 | 06/02/19 | | | 4 mg/actuation nasal | nose as needed for | | | 20 | | | spray,non-aerosol | suspected opioid | | | | | | | overdose. May [...] call 911. | | | | | + + [...] + + + +---------+ + + | promethazine 25 mg | Take 25 mg by mouth | | 0 | | | | oral tablet | as needed for | | | | | | | nausea/vomiting. | | | | | + + [...] + + + +---------+ + + | tamsulosin 0.4 mg | Take 1 capsule by | 2 | 0 | 06/03/19 | | | oral capsule | mouth once daily for | capsule | | 20 | 0 | | | 2 days. | | | | | + + + +---------+ + + documented as of this encounter Progress Notes Sammi Ayala MD - 06/02/2019 8:50 PM PSTFormatting of this note might be different from adryan vann. INPATIENT ADULT PAIN SERVICE FOLLOW UP NOTE Date of Service: 06/02/2019 Author: Sammi Ayala MD Pain Service Attending Physician: Sammi Ayala MD Main Complaint: acute postoperative pain and chronic pain Interval History: Maria De Jesus Anna is a 28 y.o. female with a history significant for prio r gastric bypass and who presents following lap g-tube placement.. Interval events since last Adult Pain Service visit: No acute events overnight. Continues to complain of pain around G tube site. Diazepam helped with pain. Ms. Anna was last seen by APS yesterday. At that time, our recommendations were: 1. Consider utilizing lidocaine patch 2. Increase flexeril to 5-10 mg TID PRN for muscle spasm and tightness 3. Increase gabapentin to 600 mg TID 4. Avoid increasing opioids. Consider decreasing PO dilaudid to 2-4 mg instead of 2-6mg q 3 hrs PRN 4. Continue APAP 3000 mg/day 5. D/c Diazepam Ms. Anna has pain described as sharp in this area: left upper abdominal pain, without ra diation.. Specific activities that exacerbate Ms. Anna's pain include deep breathing and moving in bed. Ms. Anna is partially satisfied with current level of pain. Associated symptoms include: urinary retention. She also has drowsiness, patient attributin g to fatigue and not sedation Treatment for Ms. Anna current pain complaint includes the following: Opioids: po HM Other analgesics: Acetaminophen, gabapentin, flexeril Ms. Anna has noticed side effects which include: urinary retention. Pertinent review of Systems: General: Patient complains of negative and psychomotor agit ation. Other complaints: None Past Medical History: History of chronic or preoperative pain: no Prior to hospitalization: No significant chronic use of opioids at home None Current Medications: Current Facility-Administered Medications Medication Dose Route Frequency Last Rate beclomethasone (QVAR) 40 mcg/actuation inhaler 1 puff 1 puff inhalation BID cloNIDine HCl (CATAPRES) tablet 0.1 mg 0.1 mg oral DAILY dicyclomine liquid 20 mg 20 mg feeding tube TID FLUoxetine (PROZAC) capsule 40 mg 40 mg oral DAILY hydrocortisone 1 % ointment topical BID hydrOXYzine (ATARAX) tablet 25 mg 25 mg oral BID ketorolac (TORADOL) injection 15 mg 15 mg intravenous Q6H lamoTRIgine (LAMICTAL) tablet 25 mg 25 mg oral BID lidocaine (LIDODERM) 5 % patch 1 patch 1 patch transdermal Q24H lidocaine (LIDODERM) 5 % patch 1 patch 1 patch transdermal Q24H lidocaine (LIDODERM) 5 % patch 1 patch 1 patch transdermal Q24H lidocaine (XYLOCAINE URO-JET) 2 % jelly urethral ONCE magnesium hydroxide (MILK OF MAGNESIA) suspension 30 mL 30 mL feeding tube BID mirtazapine (REMERON) tablet 15 mg 15 mg oral QPM pantoprazole (PROTONIX) tablet 20 mg 20 mg oral BID probiotic yogurt (SHOSHANA'S YOGURT) oral BID scopolamine (TRANSDERM-SCOP) 1 mg over 3 days 1 patch 1 patch transdermal Q72H tamsulosin (FLOMAX) capsule 0.4 mg 0.4 mg oral DAILY thiamine tablet 100 mg 100 mg oral DAILY topiramate (TOPAMAX) tablet 50 mg 50 mg oral BID Current Facility-Administered Medications Medication Dose Route Frequency Last Rate acetaminophen (TYLENOL) tablet 1,000 mg 1,000 mg oral Q6H PRN albuterol (PROVENTIL, VENTOLIN) 90 mcg/actuation inhaler 2 puff 2 puff inhalation Q4H PRN diazePAM (VALIUM) liquid 2 mg 2 mg feeding tube Q6H PRN diphenhydrAMINE (BENADRYL) capsule 25 mg 25 mg oral Q6H PRN gabapentin (NEURONTIN) liquid 600 mg 600 mg oral Q8H PRN glycerin (ADULT) suppository 1 suppository 1 suppository rectal DAILY PRN HYDROmorphone (DILAUDID) liquid 2-4 mg 2-4 mg feeding tube Q3H PRN ondansetron (ZOFRAN) injection 4 mg 4 mg intravenous Q12H PRN ondansetron ODT (ZOFRAN ODT) tablet 4 mg 4 mg oral Q12H PRN prochlorperazine (COMPAZINE) tablet 5-10 mg 5-10 mg oral Q6H PRN simethicone chew (MYLICON) tablet 80 mg 80 mg oral QID PRN Current Facility-Administered Medications Medication Dose Route Frequency Last Rate The above medication list includes the following analgesics: Opioids: Hydromorphone PO, 24 mg/day Other analgesics: Ketorolac 45, gabapentin 300mg, lidoderm Other psychoactive medications: Benadryl, atarax, Lamictal, topiramate, mirtazepine Allergies: Allergies Allergen Reactions Ibuprofen Hives Benzonatate Rash Cigarette Smoke Airway Constriction Depakote [Divalproex Sodium] Suicidal Ideation Doxycycline Rash Percocet [Oxycodone-Acetaminophen] Nausea and Vomiting [place] Oil Hives and Nausea and Vomiting Seroquel [Quetiapine Fumarate] Suicidal Ideation Physical Exam: BP 108/56 (BP Location: Left upper arm, Patient Position: Lying on back) | Pulse 52 | Tem p 36.7 C (98.1 F) (Oral) | Resp 18 | Ht 1.803 m (5' 11") | SpO2 97% | BMI 33.86 kg/m | BSA 2.35 m Systolic (24hrs), Av , Min:108 , Max:117 Diastolic (24hrs), Av, Min:54, Max:58 No data recorded Temp Min: 36.2 C (97.2 F) Max: 36.5 C (97.7 F) Resp Min: 14 Max: 20 SpO2 Min: 94 % Max: 97 % General appearance: alert and cooperative Impression: Maria De Jesus Anna is a 28 y.o. female with a history of obesity s/p bariatric surgery now s/ p J-tube placement Diagnosis: 1. Acute post operative abdominal pain 2. Anxiety Recommendations: 1. Consider utilizing lidocaine patch 2. stop cyclobenzaprine as this was not effective 3. Increase gabapentin to 600 mg TID scheduled. 4. consider stopping dicyclomine as this may be worsening urinary retention. Sammi Ayala MD Mg Cooney MD - 06/02/2019 11:40 AM PSTFormatting of this note might be different from the [facility] DEPARTMENT OF SURGERY Red Surgery Admission Date: 05/30/2019 ( LOS: 0 days ) Attending Provider: Kenan Norton MD Interval History and Events: - No acute events overnight - Pain better controlled. Valium yesterday was more effective than flexeril. - Good PO. Nausea controlled. - No BM - Plan to DC today with olmos catheter in place. Fill and pull 06/04 in clinic. Follow-up [facility] Dr. Norton in 2 weeks. BP 108/54 (BP Location: Left upper arm, Patient Position: Lying on back) | Pulse 51 | Tem p 36.6 C (97.9 F) (Oral) | Resp 16 | Ht 1.803 m (5' 11") | SpO2 99% | BMI 33.86 kg/m | BSA 2.35 m General:Well appearing, in no acute distress. HEENT:Normocephalic. Respiratory:Breathing comfortably on RA. Cardiovascular:Regular rate. Abdomen:Soft, tender to palpation of LLQ and around j-tube, non-distended. J-tube in plac e. Incisions well-approximated, c/d/i. : Olmos catheter in place with clear yellow urine. Extremities:Moving all 4 extremities. Neuro:Awake and alert. Grossly intact. Data Chemistries: Last 72 Hours (or 3 results) - Refreshable Recent Labs 06/02/19 0354 NA 142 K 3.8 CL 110* BICARB 25 BUN 13 EGFRAFRICAN >60 CR 0.77 GLU 90 CA 8.6 MG 1.8 PO4 4.2 Assessment and Plan: Maria De Jesus Anna is a 28 y.o. F with a history of anxiety, asthma, DM2, GERD, HTN, MEHUL, and severe obesity s/p RYGB and cholecystectomy on 09/24/2018 c/b poor PO intake and multiple carolina d intolerances, and dehydration. Now s/p G-tube placement in gastric remnant, now with impro abdiel post-operative pain. Tolerating trickle TFs. Olmos catheter in place for urinary retenti on. PO intolerance s/p j-tube placement - Stage IV bariatric diet, TFs advanced to 30 mL/hr, protein supplements - Nutrition recommending goal rate of 40 mL/hr if required for 100% caloric needs. Water fl ushes of 150 mL 8x per day to meet hydration needs. Will likely use TFs as needed to supplem ent at home when unable to take PO. - Thiamine supplementation per nutrition recs, vitamins for DC - Pantoprazole 20 mg BID - Zofran, compazine for nausea prn - EKG with normal QTc - Simethicone prn - Shoshana's probiotic Acute post-operative pain - APS performed block, recs for multimodal pain control appreciated - Scheduled tylenol, gabapentin, lidocaine patches, PRN valium - Liquid HM prn Constipation - Dulcolax suppository and enemas, milk of mag BID Acute urinary retention - Flomax daily - DC with olmos Chronic: Anxiety - Continue bertha clonidine, fluoxetine, hydroxyzine prn, lamotrigine Asthma - Continue home albuterol prn Disposition: Continue acute care hospitalization. May DC home later today once tolerating T Fs at 30 mL/hr, ambulating, g-tube and olmos teaching complete. Lucero Arias MD PhD [facility] General Surgery Red Surgery Pager #[phone] Associated attestation - Aysha Meyer MD - 06/02/2019 4:21 PM PSTI saw and evaluated the patient. I agree with the findings and the plan of care as documented in the resident s note. Aysha Meyer MD [facility] [address] [place] [id number] Kelly Baker MD - 06/01/2019 2:43 PM PSTFormatting of this note might be differe nt from the original. INPATIENT ADULT PAIN SERVICE FOLLOW UP NOTE Date of Service: 06/01/2019 Author: Kelly Baker MD Pain Service Attending Physician: Sammi Ayala MD Main Complaint: acute postoperative pain and chronic pain Interval History: Maria De Jesus Anna is a 28 y.o. female with a history significant for prio r gastric bypass and who presents following lap g-tube placement.. Interval events since last Adult Pain Service visit: No acute events overnight. Continues to complain of pain around J tube site. Per nursing appears drowsy with PO dilaudid. Ms. Anna was last seen by APS yesterday. At that time, our recommendations were: 1. Subcostal tap performed 2. Consider flexeril for pain control 3. Would avoid iv fentanyl 4. Consider lidocaine infusion if pain continues to be an issue (APS will order) These recommendations were partially implemented. Ms. Anna has pain described as sharp in this area: left abdominalpain, without radiation .. Ms. Anna pain score at rest is 8/10. With activity, her pain score is 10/10. Specific activities that exacerbate Ms. Anna's pain include deep breathing and moving in bed. Ms. Anna is not satisfied with current level of pain. Ms. Anna first noticed her pain following surgery Lap J-tube. Her pain is improved by m edications. Associated symptoms include: urinary retention. She also has drowsiness, patient attributin g to fatigue and not sedation Treatment for Ms. Anna current pain complaint includes the following: Opioids: po HM Other analgesics: Acetaminophen, gabapentin, flexeril Ms. Anna has noticed side effects which include: urinary retention. Pertinent review of Systems: General: Patient complains of negative, fevers and psychomo tor agitation. Gastrointestinal: Patient complains of negative and constipation. Genitourinary: Patient complains of retention. Other complaints: None Past Medical History: History of chronic or preoperative pain: no Prior to hospitalization: No significant chronic use of opioids at home None Current Medications: Current Facility-Administered Medications Medication Dose Route Frequency Last Rate albuterol (PROVENTIL, VENTOLIN) 90 mcg/actuation inhaler 2 puff 2 puff inhalation BID cloNIDine HCl (CATAPRES) tablet 0.1 mg 0.1 mg oral DAILY dicyclomine liquid 20 mg 20 mg feeding tube TID FLUoxetine (PROZAC) capsule 40 mg 40 mg oral DAILY hydrocortisone 1 % ointment topical BID hydrOXYzine (ATARAX) tablet 25 mg 25 mg oral BID ketorolac (TORADOL) injection 15 mg 15 mg intravenous Q6H lactated ringers (LR) bolus 500 mL 500 mL intravenous ONCE lamoTRIgine (LAMICTAL) tablet 25 mg 25 mg oral BID lidocaine (LIDODERM) 5 % patch 1 patch 1 patch transdermal Q24H lidocaine (LIDODERM) 5 % patch 1 patch 1 patch transdermal Q24H lidocaine (LIDODERM) 5 % patch 1 patch 1 patch transdermal Q24H magnesium hydroxide (MILK OF MAGNESIA) suspension 15 mL 15 mL feeding tube BID mirtazapine (REMERON) tablet 15 mg 15 mg oral QPM pantoprazole (PROTONIX) tablet 20 mg 20 mg oral BID probiotic yogurt (SHOSHANA'S YOGURT) oral BID scopolamine (TRANSDERM-SCOP) 1 mg over 3 days 1 patch 1 patch transdermal Q72H tamsulosin (FLOMAX) capsule 0.4 mg 0.4 mg oral DAILY thiamine tablet 100 mg 100 mg oral DAILY topiramate (TOPAMAX) tablet 50 mg 50 mg oral BID Current Facility-Administered Medications Medication Dose Route Frequency Last Rate acetaminophen (TYLENOL) tablet 1,000 mg 1,000 mg oral Q6H PRN cyclobenzaprine (FLEXERIL) tablet 5-10 mg 5-10 mg oral Q8H PRN diazePAM (VALIUM) liquid 2 mg 2 mg oral Q6H PRN diphenhydrAMINE (BENADRYL) capsule 25 mg 25 mg oral Q6H PRN gabapentin (NEURONTIN) liquid 600 mg 600 mg oral Q8H PRN glycerin (ADULT) suppository 1 suppository 1 suppository rectal DAILY PRN HYDROmorphone (DILAUDID) liquid 2-6 mg 2-6 mg feeding tube Q3H PRN metoclopramide HCl (REGLAN) injection 10 mg 10 mg intravenous Q6H PRN ondansetron (ZOFRAN) injection 4 mg 4 mg intravenous Q12H PRN ondansetron ODT (ZOFRAN ODT) tablet 4 mg 4 mg oral Q12H PRN prochlorperazine (COMPAZINE) suppository 12.5-25 mg 12.5-25 mg rectal Q12H PRN simethicone chew (MYLICON) tablet 80 mg 80 mg oral QID PRN Current Facility-Administered Medications Medication Dose Route Frequency Last Rate The above medication list includes the following analgesics: Opioids: Hydromorphone PO, 26 mg/day Other analgesics: Ketorolac 45, gabapentin 300mg Other psychoactive medications: Benadryl, atarax, Lamictal, topiramate Allergies: Allergies Allergen Reactions Ibuprofen Hives Benzonatate Rash Cigarette Smoke Airway Constriction Depakote [Divalproex Sodium] Suicidal Ideation Doxycycline Rash Percocet [Oxycodone-Acetaminophen] Nausea and Vomiting [place] Oil Hives and Nausea and Vomiting Seroquel [Quetiapine Fumarate] Suicidal Ideation Physical Exam: BP 104/56 (BP Location: Right upper arm, Patient Position: Lying on back) | Pulse 61 | Te mp 36.5 C (97.7 F) (Temporal) | Resp 16 | Ht 1.803 m (5' 11") | SpO2 96% | BMI 33.86 kg/m | BSA 2.35 m Systolic (24hrs), Av , Min:95 , Max:110 Diastolic (24hrs), Av, Min:42, Max:65 No data recorded Temp Min: 36.2 C (97.2 F) Max: 36.5 C (97.7 F) Resp Min: 14 Max: 20 SpO2 Min: 94 % Max: 97 % General appearance: alert and cooperative Impression: Maria eD Jesus Anna is a 28 y.o. female with a history of obesity s/p bariatric surgery now s/ p J-tube placement Diagnosis: 1. Acute post operative abdominal pain 2. Anxiety Recommendations: 1. Consider utilizing lidocaine patch 2. Increase flexeril to 5-10 mg TID PRN for muscle spasm and tightness 3. Increase gabapentin to 600 mg TID 4. Avoid increasing opioids. Consider decreasing PO dilaudid to 2-4 mg instead of 2-6mg q 3 hrs PRN 4. Continue APAP 3000 mg/day 5. D/c Diazepam Kelly Baker MD Chronic Pain Fellow [facility] [id number] Associated attestation - Sammi Ayala MD - 06/03/2019 3:11 PM PSTI saw and evaluated Ms. Daisy Anna with Fellow Kelly Baker, who conducted the initial history and phys ical examination. I personally interviewed the patient and performed the pertinent parts o f the physical examination. I have reviewed the fellow s note and I agree with the plan o f care as documented. I do not have additional comments. Fredy Rush Priya, MD - 06/01/2019 10:58 AM PSTDEPARTMENT OF SURGERY Red Surgery Admission Date: 05/30/2019 ( LOS: 0 days ) Attending Provider: Kenan Norton MD Interval History and Events: - Continues to struggle with pain, although this is mildly improved. Has received fentanyl intermittently - s/p subcostal TAP block with minimal result - still taking in PO - +flatus, no BM - still retaining urine, flomax started yesterday BP 110/65 (BP Location: Right upper arm, Patient Position: Lying on back) | Pulse 61 | Te mp 36.5 C (97.7 F) (Temporal) | Resp 20 | Ht 1.803 m (5' 11") | SpO2 96% | BMI 33.86 kg/m | BSA 2.35 m General: In mild distress due to pain. HEENT: Normocephalic. Respiratory: Breathing comfortably on RA. Cardiovascular: Regular rate. Abdomen: Soft, tender to palpation of LUQ and around G-tube, non-distended. G-tube in place . Incisions with steri-strips, c/d/i. Extremities: Moving all 4 extremities. Neuro: Awake and alert. Grossly intact. Data No new labs. Assessment and Plan: Maria De Jesus Anna is a 28 y.o. F with a history of anxiety, asthma, DM2, GERD, HTN, MEHUL, and severe obesity s/p RYGB and cholecystectomy on 09/24/2018 c/b poor PO intake and multiple carolina d intolerances, and dehydration. Now s/p G-tube placement in gastric remnant, now with signi ficant post-operative pain and constipation. Trickle TFs held overnight for pain. PO intolerance s/p j-tube placement - Stage IV bariatric diet, TFs at 10 mL/hr, protein supplements - Nutrition recommending goal rate of 40 mL/hr if required for 100% caloric needs. Water fl ushes of 150 mL 8x per day to meet hydration needs. Will likely use TFs as needed to supplem ent at home when unable to take PO. - Thiamine supplementation per nutrition recs - Pantoprazole 20 mg BID - Zofran, reglan, compazine for nausea prn - Simethicone prn - Shoshana's probiotic Acute post-operative pain - APS performed block, recs for multimodal pain control appreciated - Dicyclomine TID for gastric spasms - Scheduled tylenol, toradol, gabapentin, lidocaine patches, PRN valium - Liquid HM prn - will plan for bedside tube study today Constipation - Dulcolax suppository and enemas, milk of mag BID Acute urinary retention - Flomax daily - bladder scan PRN Chronic: Anxiety - Continue bertha clonidine, fluoxetine, hydroxyzine prn, lamotrigine Asthma - Continue home albuterol prn Disposition: Continue acute care hospitalization. May DC home later today pending improved pain control. Rachel Ward MD MIS Fellow [id number] Lucero Ge MD - 05/31 12:28 PM PSTDEPARTMENT OF SURGERY Red Surgery Admission Date: 05/30/2019 ( LOS: 0 days ) Attending Provider: Kenan Norton MD Interval History and Events: - No acute events overnight - Struggled with pain control overnight - PO intake of 850 mL yesterday - TFs held this AM for acute abdominal pain radiating to the LLQ following TF flush. Endors es that her last BM was very small prior to surgery and no other BMs for > 1 week. - Olmos catheter placed overnight for acute urinary retention, removed this AM BP 120/65 (BP Location: Left upper arm, Patient Position: Lying on back) | Pulse 61 | Tem p 36.5 C (97.7 F) (Forehead) | Resp 15 | Ht 1.803 m (5' 11") | SpO2 100% | BMI 33.86 kg/m | BSA 2.35 m General: In mild distress due to pain. HEENT: Normocephalic. Respiratory: Breathing comfortably on RA. Cardiovascular: Regular rate. Abdomen: Soft, tender to palpation of LLQ and around j-tube, non-distended. J-tube in place . Incisions with steri-strips, c/d/i. Extremities: Moving all 4 extremities. Neuro: Awake and alert. Grossly intact. Data No new labs. Assessment and Plan: Maria De Jesus Anna is a 28 y.o. F with a history of anxiety, asthma, DM2, GERD, HTN, MEHUL, and severe obesity s/p RYGB and cholecystectomy on 09/24/2018 c/b poor PO intake and multiple carolina d intolerances, and dehydration. Now s/p j-tube placement and complaining of significant pos t-operative pain and constipation. Trickle TFs held overnight for pain. PO intolerance s/p j-tube placement - Stage IV bariatric diet, TFs at 10 mL/hr once pain under better control, protein suppleme nts - Nutrition recommending goal rate of 40 mL/hr if required for 100% caloric needs. Water fl ushes of 150 mL 8x per day to meet hydration needs. Will likely use TFs as needed to supplem ent at home when unable to take PO. - Thiamine supplementation per nutrition recs - Pantoprazole 20 mg BID - Zofran, reglan, compazine for nausea prn - Simethicone prn - Shoshana's probiotic Acute post-operative pain - APS consulted for block, appreciate assistance - Dicyclomine TID for gastric spasms - Scheduled tylenol, toradol, gabapentin, lidocaine patches - Liquid HM prn, IV HM prn Constipation - Dulcolax suppository today - Enema - Milk of mag BID Acute urinary retention Olmos removed this AM. - Flomax daily - FU trial of void Chronic: Anxiety - Continue bertha clonidine, fluoxetine, hydroxyzine prn, lamotrigine Asthma - Continue home albuterol prn Disposition: Continue acute care hospitalization. May DC home later today pending improved pain control. Lucero Arias MD PhD [facility] General Surgery Red Surgery Pager # [phone] Associated attestation - Kenan Norton MD - 06/02/2019 9:09 PM [facility] resident assisted with documenting this service. I saw the patient and reviewed and verified all information d ocumented by the resident, and made modifications to such information, when appropriate. Kenan Norton MD, MS Diabetes Nurse [facility] Bariatric Surgery documented in this encounter Plan of Treatment +--------+ + + + + | Date | Type | Specialty | Care Team | Description | +--------+ + + + + | 11/17/ | Video/TeleH | Pain Management | Florencio Lockett G, | | 2019 | ealth-Sched | | [address] | | | | uled | | [place], [place] | | | | | | [address] | | | | | | [phone] | | | | | | | | +--------+ + + + + | 12/01/ | Video/TeleH | Pain Management | Florencio Lockett G, | | | 2019 | ealth-Sched | | PhD [address] | | | | uled | | [place], [place] | | | | | | [address] | | | | | | [phone] | | | | | | | | +--------+ + + + + | 01/06/ | Office | Plastic Surgery | Kuldip Harrell MD | | | 2019 | Visit | | [address] | | | | | | [place], [place] | | | | | | [address] | | | | | | [phone] | | | | | | | | +--------+ + + + + documented as of this encounter Procedures + +--------+ + + + | Procedure Name | Priori | Date/Time | Associated Diagnosis | Comments | | | ty | | | | + +--------+ + + + | 12 LEAD ECG | Routin | 06/02/2019 | | Results for this | | | e | 8:56 AM | | procedure are in the | | | | PST | | results section. | + +--------+ + + + | RENAL FUNCTION SET | Routin | 06/02/2019 | | Results for this | | (NA,K,CL,CO2,BUN,CRE | e | 3:54 AM | | procedure are in the | | AT,GLUC,CA,PHOS,ALB | | PST | | results section. | | ) | | | | | + +--------+ + + + | MAGNESIUM, PLASMA | Routin | 06/02/2019 | | Results for this | | | e | 3:54 AM | | procedure are in the | | | | PST | | results section. | + +--------+ + + + | X-RAY PORTABLE ABD | Urgent | 06/01/2019 | | Results for this | | TUBE OR CATH EVAL W | | 1:25 PM | | procedure are in the | | CONTRAST | | PST | | results section. | + +--------+ + + + | 12 LEAD ECG | Routin | 05/30/2019 | | Results for this | | | e | 7:24 PM | | procedure are in the | | | | PST | | results section. | + +--------+ + + + | COMPLETE METABOLIC | Urgent | 05/30/2019 | | Results for this | | SET | | 11:00 AM | | procedure are in the | | (NA,K,CL,CO2,BUN,CRE | | PST | | results section. | | AT,GLUC,CA,AST,ALT,B | | | | | | LUIS ANGEL TOTAL,ALK | | | | | | PHOS,ALB,PROT TOTAL) | | | | | + +--------+ + + + | CAPILLARY BLOOD | Routin | 05/30/2019 | S/P gastric bypass | Results for this | | GLUCOSE (NO CHG), | e | 10:32 AM | | procedure are in the | | POC | | PST | | results section. | + +--------+ + + + | ESOPHAGOGASTRODUODEN | Electi | 05/30/2019 | Gastroesophageal | | | OSCOPY | ve | 7:36 AM | reflux disease with | | | | Surgic | PST | esophagitis | | | | al | | | | + +--------+ + + + | LAPAROSCOPIC | Electi | 05/30/2019 | Gastroesophageal | | | GASTROSTOMY TUBE | ve | 7:36 AM | reflux disease with | | | PLACEMENT | Surgic | PST | esophagitis | | | | al | | | | + +--------+ + + + | CAPILLARY BLOOD | Routin | 05/30/2019 | S/P gastric bypass | Results for this | | GLUCOSE (NO CHG), | e | 7:10 AM | | procedure are in the | | POC | | PST | | results section. | + +--------+ + + + | HCG URINE, POC | Urgent | 05/30/2019 | S/P gastric bypass | Results for this | | | | 6:39 AM | | procedure are in the | | | | PST | | results section. | + +--------+ + + + | INTRAPROCEDURE | Routin | 05/30/2019 | | Results for this | | IMAGING | e | 5:55 AM | | procedure are in the | | | | PST | | results section. | + +--------+ + + + | CARDIOLOGY | | 05/30/2019 | | Results for this | | | | 12:00 AM | | procedure are in the | | | | PST | | results section. | + +--------+ + + + documented in this encounter Results 12 LEAD ECG (06/02/2019 8:56 AM PST) + + + + + + | Component | Value | Ref Range | Performed | Pathologist | | | | | At | Signature | + + + + + + | VENTRICULAR | 47 | bpm | [facility] | | | RATE | | | OF | | | | | | CARDIOLOGY | | + + + + + + | ATRIAL RATE | 47 | ms | [facility] | | | | | | OF | | | | | | CARDIOLOGY | | + + + + + + | P-R | 155 | ms | [facility] | | | INTERVAL | | | OF | | | | | | CARDIOLOGY | | + + + + + + | P AXIS | 23 | deg | [facility] | | | | | | OF | | | | | | CARDIOLOGY | | + + + + + + | QRS | 100 | ms | [facility] | | | DURATION | | | OF | | | | | | CARDIOLOGY | | + + + + + + | QT | 484 | ms | [facility] | | | | | | OF | | | | | | CARDIOLOGY | | + + + + + + | QTC-ASHLEIGH | 430 | ms | [facility] | | | | | | OF | | | | | | CARDIOLOGY | | + + + + + + | R AXIS | -26 | deg | [facility] | | | | | | OF | | | | | | CARDIOLOGY | | + + + + + + | T AXIS | -7 | deg | [facility] | | | | | | OF | | | | | | CARDIOLOGY | | + + + + + + | ECG | Sinus bradycardia | | [facility] | | | IMPRESSION | | | OF | | | | | | CARDIOLOGY | | + + + + + + | ECG | Borderline T | | [facility] | | | IMPRESSION | abnormalities, diffuse | | OF | | | | leads- BORDERLINE ECG - | | CARDIOLOGY | | + + + + + + | ECG | Electronically signed | | [facility] | | | IMPRESSION | by: HALEY ALVARES | | OF | | | | 06-02-2019 14:56:56 | | CARDIOLOGY | | + + + + + + + + | Specimen | + + | | + + + + + | Narrative | Performed At | + + + | | | + + + + + + + + | Performing | Address | City/State/Zipcode | Phone Number | | Organization | | | | + + + + + | [facility] | [address] | [place], [place] | | | CARDIOLOGY | [facility] | [address] | | + + + + + MAGNESIUM, PLASMA (06/02/2019 3:54 AM PST) + +-------+ + + + | Component | Value | Ref Range | Performed | Pathologist | | | | | At | Signature | + +-------+ + + + | MAGNESIUM,P | 1.8 | 1.6 - 2.6 mg/dL | [facility] | | | LASMA | | | LABORATORY | | | [...] [facility] | [address] | [place] [address] | | | SERVICES, CORE | [address] | | | + + + + + RENAL FUNCTION SET (NA,K,CL,CO2,BUN,CREAT,GLUC,CA,PHOS,ALB ) (06/02/2019 3:54 AM PST) + +---------+ + + + | Component | Value | Ref Range | Performed | Pathologist | | | | | At | Signature | + +---------+ + + + | GLUCOSE, | 90 | 70 - 99 mg/dL | [facility] | | | PLASMA | | | LABORATORY | | | (LAB) | | | SERVICES, | | | | | | CORE | | + +---------+ + + + | BUN, PLASMA | 13 | 6 - 20 mg/dL | [facility] | | | (LAB) | | | LABORATORY | | | | | | SERVICES, | | | | | | CORE | | + +---------+ + + + | CREATININE | 0.77 | 0.60 - 1.10 | [facility] | | | PLASMA | | mg/dL | LABORATORY | | | (LAB) | | | SERVICES, | | | | | | CORE | | + +---------+ + + + | EGFR | >60 | >60 mL/min | [facility] | | | - | | | LABORATORY | | | [place] | | | SERVICES, | | | [...] +---------+ + + + | POTASSIUM, | 3.8 | 3.4 - 5.0 | [facility] | | | PLASMA | | mmol/L | LABORATORY | | | (LAB) | | | SERVICES, | | | | | | CORE | | + +---------+ + + + | CHLORIDE, | 110 (H) | 97 - 108 mmol/L | [...] +---------+ + + + | CALCIUM, | 8.6 | 8.6 - 10.2 | [facility] | | | PLASMA | | mg/dL | LABORATORY | | | (LAB) | | | SERVICES, | | | | | | CORE | | + +---------+ + + + | CALCIUM(ALB | 9.7 | 8.6 - 10.2 | [facility] | | | CORRECTED) | | mg/dL | LABORATORY | | | | | | SERVICES, | | | | | | CORE | | + +---------+ + + + | ALBUMIN, | 2.6 (L) | 3.5 - 4.7 g/dL | [facility] | | | PLASMA | | | LABORATORY | | | (LAB) | | | SERVICES, | | | | | | CORE | | + +---------+ + + + | PHOSPHORUS, | 4.2 | 2.4 - 4.7 mg/dL | [facility] | | | PLASMA [...] +---------+ + + + | ANION | 10 | 4 - 11 mmol/L | [facility] | | | GAP(ALB | | | LABORATORY | | | CORRECTED) | | | SERVICES, | | | | | | CORE | | + +---------+ + + + | BUN/CREATIN | 17 | 8 - 25 | [facility] | [...] MDRD equation recommended by the National | [facility] | | Kidney Disease Education Program. Estimated GFR Interpretive | LABORATORY | | Information: <60 mL/min/1.73 sq m Chronic Kidney | SERVICES, CORE | | Disease <15 mL/min/1.73 sq m Kidney Failure | | | Estimated GFR greater than 60 mL/min/1.73 sq m is of limited clinical | | | value. The MDRD equation is not valid in the following situations: | | | - Patients under 18 years [...] | + + + + + | [facility] | [address] | [place] [address] | | | SERVICES, CORE | [address] | | | + + + + + X-RAY PORTABLE ABD TUBE OR CATH EVAL W CONTRAST (06/01/2019 1:25 PM PST) + + | Specimen | + + | | + + + + + | Narrative | Performed At | + + + | EXAM: UT ABD TUBE OR CATH EVAL W CONTRAST. Contrast was | [facility] | | administered by the clinical service at the bedside. HISTORY: | RADIOLOGY VOICE | | bedside contrasted tube study COMPARISON: 05/03/2019 | RECOGNITION 2 | | FINDINGS/IMPRESSION: Catheter tubing overlies the left upper | | | quadrant. There is intraluminal opacification of stomach and the | | | duodenal sweep. No extraluminal contrast is identified. | | | Nonspecific, nonobstructive bowel gas pattern. Right upper | | | quadrant surgical clips. No acute osseous abnormalities. I | | | have personally reviewed the images and, if necessary, edited the | | | report. I agree with the report as now presented. Final | | | signature: Checo Perrin MD 06/01/2019 5:13 PM Preliminary: | | | Checo Perrin MD Dictation initiated: Checo Perrin MD | | | 06/01/2019 5:10 PM | | + + + + + | Procedure Note | + + | Service Account, Lisbeth Graf In Interface - 06/01/2019 5:14 PM PST EXAM: UT ABD TUBE | | OR CATH EVAL W CONTRAST. Contrast was administered by the clinical service at the | | bedside. HISTORY: bedside contrasted tube study COMPARISON: 05/03/2019 | | FINDINGS/IMPRESSION: Catheter tubing overlies the left upper quadrant. There is | | intraluminal opacification of stomach and the duodenal sweep. No extraluminal contrast | | is identified. Nonspecific, nonobstructive bowel gas pattern. Right upper quadrant | | surgical clips. No acute osseous abnormalities. I have personally reviewed the images | | and, if necessary, edited the report. I agree with the report as now presented. Final | | signature: Checo Perrin MD 06/01/2019 5:13 PM Preliminary: Checo Perrin MD | | Dictation initiated: Checo Perrin MD 06/01/2019 5:10 PM | |Catheter tubing overlies the left upper quadrant. There is intraluminal opacification of st omach and the duodenal sweep. | | | |No extraluminal contrast is identified. | | | |Nonspecific, nonobstructive bowel gas pattern. | | | |Right upper quadrant surgical clips. | | | |No acute osseous abnormalities. | | | |I have personally reviewed the images and, if necessary, edited the report. I agree with e report as now presented. | | | |Final signature: Checo Perrin MD 06/01/2019 5:13 PM | |Preliminary: Checo Perrin MD | |Dictation initiated: Checo Perrin MD 06/01/2019 5:10 PM | + + + +---------+ + + | Performing | Address | City/State/Zipcode | Phone Number | | Organization | | | | + +---------+ + + | [facility] | | | | | VOICE RECOGNITION 2 | | | | + +---------+ + + 12 LEAD ECG (05/30/2019 7:24 PM PST) + + + + + + | Component | Value | Ref Range | Performed | Pathologist | | | | | At | Signature | + + + + + + | VENTRICULAR | 56 | bpm | [facility] | | | RATE | | | OF | | | | | | CARDIOLOGY | | + + + + + + | ATRIAL RATE | 56 | ms | [facility] | | | | | | OF | | | | | | CARDIOLOGY | | + + + + + + | P-R | 165 | ms | [facility] | | | INTERVAL | | | OF | | | | | | CARDIOLOGY | | + + + + + + | P AXIS | 1 | deg | [facility] | | | | | | OF | | | | | | CARDIOLOGY | | + + + + + + | QRS | 104 | ms | [facility] | | | DURATION | | | OF | | | | | | CARDIOLOGY | | + + + + + + | QT | 459 | ms | [facility] | | | | | | OF | | | | | | CARDIOLOGY | | + + + + + + | QTC-BAZETT | 442 | ms | [facility] | | | | | | OF | | | | | | CARDIOLOGY | | + + + + + + | R AXIS | -17 | deg | [facility] | | | | | | OF | | | | | | CARDIOLOGY | | + + + + + + | T AXIS | 17 | deg | [facility] | | | | | | OF | | | | | | CARDIOLOGY | | + + + + + + | ECG | Sinus bradycardia- | | [facility] | | | IMPRESSION | OTHERWISE NORMAL ECG - | | OF | | | | | | CARDIOLOGY | | + + + + + + | ECG | Electronically signed | | [facility] | | | IMPRESSION | by: HALEY ALVARES | | OF | | | | 06-01-2019 10:00:07 | | CARDIOLOGY | | + + + + + + + + | Specimen | + + | | + + + + + | Narrative | Performed At | + + + | | | + + + + + + + + | Performing | Address | City/State/Zipcode | Phone Number | | Organization | | | | + + + + + | [facility] | [address] | [place], [place] | | | CARDIOLOGY | [address] | [address] | | + + + + + COMPLETE METABOLIC SET (NA,K,CL,CO2,BUN,CREAT,GLUC,CA,AST,ALT,BILI TOTAL,ALK PHOS,ALB,PROT TOTAL) (05/30/2019 11:00 AM PST) + +---------+ + + + | Component | Value | Ref Range | Performed | Pathologist | | | | | At | Signature | + +---------+ + + + | GLUCOSE, | 143 (H) | 70 - 99 mg/dL | [facility] [...] +---------+ + + + | CREATININE | 0.71 | 0.60 - 1.10 | [facility] | | | PLASMA | | mg/dL | LABORATORY | | | (LAB) | | | SERVICES, | | | | | | CORE | | + +---------+ + + + | EGFR | >60 | >60 mL/min | [facility] | | | - | | | LABORATORY | | | [place] | | | SERVICES, | | | [...] +---------+ + + + | POTASSIUM, | 3.9 | 3.4 - 5.0 | [facility] | | | PLASMA | | mmol/L | LABORATORY | | | (LAB) | | | SERVICES, | | | | | | CORE | | + +---------+ + + + | CHLORIDE, | 115 (H) | 97 - 108 mmol/L | [...] +---------+ + + + | CALCIUM, | 8.9 | 8.6 - 10.2 | [facility] | [...] +---------+ + + + | BILIRUBIN | 0.3 | 0.3 - 1.2 mg/dL | [facility] | | | TOTAL | | | LABORATORY | | | | | | SERVICES, | | | | | | CORE | | + +---------+ + + + | TOTAL | 6.4 | 6.4 - 8.2 g/dL | [facility] | | | PROTEIN, | | | LABORATORY | | | PLASMA | | | SERVICES, | | | (LAB) | | | CORE | | + +---------+ + + + | ALBUMIN, | 3.2 (L) | 3.5 - 4.7 g/dL | [facility] [...] +---------+ + + + | AST(SGOT) | 21 | <=41 U/L | [facility] | | | | | | LABORATORY | | | | | | SERVICES, | | | | | | CORE | | + +---------+ + + + | ALT (SGPT) | 31 | <=60 U/L | [facility] | | | | | | LABORATORY | | | | | | SERVICES, | | | | | | CORE | | + +---------+ + + + | ANION GAP | 5 | 4 - 11 mmol/L | [facility] | | | | | | LABORATORY | | | | | | SERVICES, | | | | | | CORE | | + +---------+ + + + | ANION | 7 | 4 - 11 mmol/L [...] +---------+ + + + | BUN/CREATIN | 13 | 8 - 25 | [facility] | | | INE RATIO | | | LABORATORY | | | | | | SERVICES, | | | | | | CORE | | + +---------+ + + + | GLOBULIN | 3.2 | 2.3 - 3.5 gm/dL | [facility] | | | LVL | | | LABORATORY | | | | | | SERVICES, | | | | | | CORE | | + +---------+ + + + | ALBUMIN/SEBASTIAN | 1.0 | 0.9 - 2.0 | [facility] | [...] MDRD equation recommended by the National | [facility] | | Kidney Disease Education Program. Estimated GFR Interpretive | LABORATORY | | Information: <60 mL/min/1.73 sq m Chronic Kidney | SERVICES, CORE | | Disease <15 mL/min/1.73 sq m Kidney Failure | | | Estimated GFR greater than 60 mL/min/1.73 sq m is of limited clinical | | | value. The MDRD equation is not valid in the following situations: | | | - Patients under 18 years [...] + + + + + | [facility] | [address] [facility] | [place] [address] | | | SERVICES, CORE | [address] | | | + + + + + CAPILLARY BLOOD GLUCOSE (NO CHG), POC (05/30/2019 10:32 AM PST) + +---------+ + + + | Component | Value | Ref Range | Performed | Pathologist | | | | | At | Signature | + +---------+ + + + | BLOOD | 134 (H) | 70 - 99 mg/dL | [facility] - | | | GLUCOSE, | | | [facility] | | | POC | | | [facility] | | | | | | OF CARE | | | | | | TESTS | | + +---------+ + + + + + | Specimen | + + | Blood | + + + + + + + | Performing | Address | City/State/Zipcode | Phone Number | | Organization | | | | + + + + + | [facility] | [phone] | [place], [place] | | | [facility] | [address] | [phone] | | | TESTS | | | | + + + + + CAPILLARY BLOOD GLUCOSE (NO CHG), POC (05/30/2019 7:10 AM PST) + +-------+ + + + | Component | Value | Ref Range | Performed | Pathologist | | | | | At | Signature | + +-------+ + + + | BLOOD | 80 | 70 - 99 mg/dL | [facility] - | | | GLUCOSE, | | | [place] | | | POC | | | [facility] | | | | | | OF CARE | | | | | | TESTS | | + +-------+ + + + + + | Specimen | + + | Blood | + + + + + + + | Performing | Address | City/State/Zipcode | Phone Number | | Organization | | | | + + + + + | [facility] | [address] | [place], [place] | | | [facility] | [address] | [phone] | | | TESTS | | | | + + + + + HCG URINE, POC (05/30/2019 6:39 AM PST) + + + + + + | Component | Value | Ref Range | Performed | Pathologist | | | | | At | Signature | + + + + + + | HCG URINE, | Negative | Negative | [facility] - | | | POC | | | [place] | | | | | | [facility] | | [...] + + + + + | [facility] | [phone] | [place], [place] | | | [facility] | [address] | [phone] | | | TESTS | | | | + + + + + INTRAPROCEDURE IMAGING (05/30/2019 5:55 AM PST) + + | Specimen | + [...] | | + +---------+ + + CARDIOLOGY (05/30/2019 12:00 AM PST) + + + | Narrative | Performed At | + + + | | | + + + documented in this encounter Visit Diagnoses + + | Diagnosis | + + | Gastroesophageal reflux disease with esophagitis | + + documented in this encounter Administered Medications + +--------+ + +------+------+ | Medication Order | MAR | Action | Dose | Rate | Site | | | Action | Date | | | | + +--------+ + +------+------+ | acetaminophen (TYLENOL) tablet | Given | 05/31/19 | 1,000 mg | | | | 1,000 mg 1,000 mg, oral, EVERY 8 | | 20 4:42 | | | | | HOURS, 3 doses, First dose on | | AM PST | | | | | Mary 05/30/19 at 1115, Last dose on | | | | | | | 05/31/19 at 0315 | | | | | | + +--------+ + +------+------+ +-------+ + +---+---+ | Given | 05/30/19 | 1,000 mg | | | | | 20 9:31 | | | | | | PM PST | | | | +-------+ + +---+---+ | Given | 05/30/19 | 1,000 mg | | | | | 20 1:34 | | | | | | PM PST | | | | +-------+ + +---+---+ +---+---+ | | | +---+---+ + +-------+ + +---+---+ | acetaminophen (TYLENOL) tablet | Given | 06/02/19 | 1,000 mg | | | | 1,000 mg 1,000 mg, oral, EVERY 6 | | 20 6:06 | | | | | HOURS NEEDED, Starting Fri | | PM PST | | | | | 05/31/19 at 1115, Until 06/03/19 | | | | | | | at 0556, mild pain, fever, | | | | | | | multimodal pain control | | | | | | + +-------+ + +---+---+ +-------+ + +---+---+ | Given | 06/02/19 | 1,000 mg | | | | | 20 9:14 | | | | | | AM PST | | | | +-------+ + +---+---+ | Given | 06/02/19 | 1,000 mg | | | | | 20 3:57 | | | | | | AM PST | | | | +-------+ + +---+---+ + +---+ | | | + +---+ | albuterol (PROVENTIL, VENTOLIN) | | | 90 mcg/actuation inhaler 2 puff | | | 2 puff, inhalation, EVERY 4 | | | HOURS NEEDED, Starting Sat | | | 06/01/19 at 2030, Until 06/03/19 | | | at 0556, dyspnea/SOB | | + +---+ | | | + +---+ + +-------+ +--------+---+---+ | beclomethasone (QVAR) 40 | Given | 06/02/19 | 1 puff | | | | mcg/actuation inhaler 1 puff 1 | | 20 8:44 | | | | | puff, inhalation, TWICE DAILY, | | PM PST | | | | | First dose on 06/01/19 at 2245, | | | | | | | Until Discontinued | | | | | | + +-------+ +--------+---+---+ +-------+ +--------+---+---+ | Given | 06/02/19 | 1 puff | | | | | 20 10:49 | | | | | | AM PST | | | | +-------+ +--------+---+---+ | Given | 06/01/19 | 1 puff | | | | | 20 10:37 | | | | | | PM PST | | | | +-------+ +--------+---+---+ +---+---+ | | | +---+---+ + +-------+ +-------+---+---+ | bisacodyL (DULCOLAX) | Given | 05/31/19 | 10 mg | | | | suppository 10 mg 10 mg, rectal, | | 20 11:18 | | | | | ONCE, 1 dose, Mon05/31/19 at 0800 | | AM PST | | | | + +-------+ +-------+---+---+ +---+---+ | | | +---+---+ + +-------+ +--------+---+---+ | cloNIDine HCl (CATAPRES) tablet | Given | 05/31/19 | 0.1 mg | | | | 0.1 mg 0.1 mg, oral, DAILY, | | 20 9:35 | | | | | First dose (after last | | PM PST | | | | | modification) on Mon05/31/19 at | | | | | | | 1530, Until Discontinued | | | | | | + +-------+ +--------+---+---+ +---+---+ | | | +---+---+ + +-------+ +------+---+---+ | cyclobenzaprine (FLEXERIL) | Given | 06/02/19 | 5 mg | | | | tablet 5-10 mg 5-10 mg, oral, | | 20 9:14 | | | | | EVERY 8 HOURS NEEDED, Starting | | AM PST | | | | | 06/01/19 at 1334, Until Sun | | | | | | | 06/02/19 at 1047, muscle spasms | | | | | | + +-------+ +------+---+---+ +-------+ +-------+---+---+ | Given | 06/02/19 | 5 mg | | | | | 20 4:14 | | | | | | AM PST | | | | +-------+ +-------+---+---+ | Given | 06/01/19 | 10 mg | | | | | 20 3:44 | | | | | | PM PST | | | | +-------+ +-------+---+---+ +---+---+ | | | +---+---+ + +-------+ +-------+---+---+ | diatrizoate meglumine-sodium | Given | 06/01/19 | 60 mL | | | | (SHIELAGRAFMARIA INES IVYGASTROBEN) | | 20 1:04 | | | | | 66-10 % oral solution 60 mL 60 | | PM PST | | | | | mL, oral, ONCE, 1 dose, Sat | | | | | | | 06/01/19 at 1030 | | | | | | + +-------+ +-------+---+---+ +---+---+ | | | +---+---+ + +-------+ +------+---+---+ | diazePAM (VALIUM) liquid 2 mg | Given | 06/01/19 | 2 mg | | | | 2 mg, oral, EVERY 6 HOURS | | 20 12:34 | | | | | NEEDED, Starting 06/01/19 at | | PM PST | | | | | 0958, Until 06/01/19 at 1451, | | | | | | | anxiety | | | | | | + +-------+ +------+---+---+ +---+---+ | | | +---+---+ + +-------+ +------+---+---+ | diazePAM (VALIUM) liquid 2 mg | Given | 06/02/19 | 2 mg | | | | 2 mg, feeding tube, EVERY 6 HOURS | | 20 8:42 | | | | | NEEDED, Starting 06/02/19 | | PM PST | | | | | at 1400, Until 06/03/19 at | | | | | | | 0556, muscle spasms | | | | | | + +-------+ +------+---+---+ +-------+ +------+---+---+ | Given | 06/02/19 | 2 mg | | | | | 20 1:15 | | | | | | PM PST | | | | +-------+ +------+---+---+ +---+---+ | | | +---+---+ + +-------+ +-------+---+---+ | dicyclomine liquid 20 mg 20 | Given | 06/01/19 | 20 mg | | | | mg, oral, THREE TIMES DAILY, | | 20 10:21 | | | | | First dose on Mon05/31/19 at 1015, | | AM PST | | | | | Until Discontinued | | | | | | + +-------+ +-------+---+---+ +-------+ +-------+---+---+ | Given | 05/31/19 | 20 mg | | | | | 20 9:34 | | | | | | PM PST | | | | +-------+ +-------+---+---+ | Given | 05/31/19 | 20 mg | | | | | 20 3:45 | | | | | | PM PST | | | | +-------+ +-------+---+---+ +---+---+ | | | +---+---+ + +-------+ +-------+---+---+ | dicyclomine liquid 20 mg 20 | Given | 06/02/19 | 20 mg | | | | mg, feeding tube, THREE TIMES | | 20 6:06 | | | | | DAILY, First dose (after last | | PM PST | | | | | modification) on 06/01/19 at | | | | | | | 1600, Until Discontinued | | | | | | + +-------+ +-------+---+---+ +-------+ +-------+---+---+ | Given | 06/02/19 | 20 mg | | | | | 20 9:15 | | | | | | AM PST | | | | +-------+ +-------+---+---+ | Given | 06/01/19 | 20 mg | | | | | 20 10:37 | | | | | | PM PST | | | | +-------+ +-------+---+---+ +---+---+ | | | +---+---+ + +-------+ +-------+---+---+ | diphenhydrAMINE (BENADRYL) | Given | 05/31/19 | 25 mg | | | | capsule 25 mg 25 mg, oral, EVERY | | 20 9:00 | | | | | 6 HOURS NEEDED, Starting Fri | | AM PST | | | | | 05/31/19 at 0635, Until 06/03/19 | | | | | | | at 0556, itching | | | | | | + +-------+ +-------+---+---+ +---+---+ | | | +---+---+ + +-------+ +-------+---+---------+ | enoxaparin (LOVENOX) injection | Given | 05/30/19 | 40 mg | | Abdomen | | 40 mg 40 mg, subcutaneous, | | 20 6:27 | | | | | PREPROCEDURE ONCE, 1 dose, | | AM PST | | | | | Starting Mary 05/30/19 at 0555, | | | | | | | Until Mary 05/30/19 at 0627 | | | | | | + +-------+ +-------+---+---------+ + +---+ | | | + +---+ | enoxaparin (LOVENOX) injection | | | 1 dose, Starting Mary 05/30/19 at | | | 0600, Until Mary 05/30/19 at 0627 | | + +---+ | | | + +---+ + +-------+ + +---+---+ | fentaNYL (SUBLIMAZE) injection | Given | 05/31/19 | 12.5 mcg | | | | 12.5 mcg 12.5 mcg, intravenous, | | 20 3:46 | | | | | ONCE, 1 dose, 05/31/19 at 1445 | | PM PST | | | | + +-------+ + +---+---+ +---+---+ | | | +---+---+ + +-------+ +--------+---+---+ | fentaNYL (SUBLIMAZE) injection | Given | 05/30/19 | 25 mcg | | | | 25 mcg 25 mcg, intravenous, | | 20 11:19 | | | | | POSTPROCEDURE PRN, 8 doses, | | AM PST | | | | | Starting Mary 05/30/19 at 0805, | | | | | | | Until Mary 05/30/19 at 1713, severe | | | | | | | pain while in Phase I Recovery | | | | | | + +-------+ +--------+---+---+ +-------+ +--------+---+---+ | Given | 05/30/19 | 25 mcg | | | | | 20 11:14 | | | | | | AM PST | | | | +-------+ +--------+---+---+ | Given | 05/30/19 | 25 mcg | | | | | 20 11:02 | | | | | | AM PST | | | | +-------+ +--------+---+---+ +---+---+ | | | +---+---+ + +-------+ +--------+---+---+ | fluconazole (DIFLUCAN) tablet | Given | 06/02/19 | 150 mg | | | | 150 mg 150 mg, oral, ONCE, 1 | | 20 8:41 | | | | | dose, [place] 06/02/19 at 2045 | | PM PST | | | | + +-------+ +--------+---+---+ +---+---+ | | | +---+---+ + +-------+ +-------+---+---+ | FLUoxetine (PROZAC) capsule 40 | Given | 06/02/19 | 40 mg | | | | mg 40 mg, oral, DAILY, First | | 20 9:13 | | | | | dose on [facility] 05/30/19 at 1715, Until | | AM PST | | | | | Discontinued | | | | | | + +-------+ +-------+---+---+ +-------+ +-------+---+---+ | Given | 06/01/19 | 40 mg | | | | | 20 10:11 | | | | | | AM PST | | | | +-------+ +-------+---+---+ | Given | 05/31/19 | 40 mg | | | | | 20 9:00 | | | | | | AM PST | | | | +-------+ +-------+---+---+ +---+---+ | | | +---+---+ + +-------+ +--------+---+---+ | gabapentin (NEURONTIN) liquid | Given | 05/31/19 | 300 mg | | | | 300 mg 300 mg, oral, EVERY 8 | | 20 7:09 | | | | | HOURS, 3 doses, First dose on Mary | | AM PST | | | | | 05/30/19 at 1500, Last dose on Fri | | | | | | | 05/31/19 at 0700 | | | | | | + +-------+ +--------+---+---+ +-------+ +--------+---+---+ | Given | 05/30/19 | 300 mg | | | | | 20 11:43 | | | | | | PM PST | | | | +-------+ +--------+---+---+ | Given | 05/30/19 | 300 mg | | | | | 20 3:18 | | | | | | PM PST | | | | +-------+ +--------+---+---+ +---+---+ | | | +---+---+ + +-------+ +--------+---+---+ | gabapentin (NEURONTIN) liquid | Given | 06/02/19 | 600 mg | | | | 600 mg 600 mg, oral, EVERY 8 | | 20 3:57 | | | | | HOURS NEEDED, Starting Sat | | AM PST | | | | | 06/01/19 at 1333, Until 06/03/19 | | | | | | | at 0556, multi-modal pain | | | | | | | control | | | | | | + +-------+ +--------+---+---+ +---+---+ | | | +---+---+ + +-------+ +---+---+---+ | hydrocortisone 1 % ointment | Given | 06/02/19 | | | | | topical, TWICE DAILY, First dose | | 20 10:49 | | | | | on Mon05/31/19 at 1415, Until | | AM PST | | | | | Discontinued | | | | | | + +-------+ +---+---+---+ +-------+ +---+---+---+ | Given | 06/01/19 | | | | | | 20 8:35 | | | | | | PM PST | | | | +-------+ +---+---+---+ | Given | 06/01/19 | | | | | | 20 10:13 | | | | | | AM PST | | | | +-------+ +---+---+---+ +---+---+ | | | +---+---+ + +-------+ +--------+---+---+ | HYDROmorphone (DILAUDID) | Given | 05/31/19 | 0.2 mg | | | | injection 0.2-0.4 mg 0.2-0.4 mg, | | 20 5:57 | | | | | intravenous, EVERY 2 HOURS | | AM PST | | | | | NEEDED, Starting Mon05/30/19 at | | | | | | | 1349, Until Mon05/31/19 at 0810, | | | | | | | severe pain | | | | | | + +-------+ +--------+---+---+ +-------+ +--------+---+---+ | Given | 05/31/19 | 0.2 mg | | | | | 20 4:57 | | | | | | AM PST | | | | +-------+ +--------+---+---+ | Given | 05/31/19 | 0.4 mg | | | | | 20 1:21 | | | | | | AM PST | | | | +-------+ +--------+---+---+ +---+---+ | | | +---+---+ + +-------+ +--------+---+---+ | HYDROmorphone (DILAUDID) | Given | 05/30/19 | 0.5 mg | | | | injection 0.2-0.5 mg 0.2-0.5 mg, | | 20 2:31 | | | | | intravenous, POSTPROCEDURE PRN, | | PM PST | | | | | Starting Mary 05/30/19 at 1241, | | | | | | | Until Mon05/31/19 at 0806, | | | | | | | moderate pain while in Phase I | | | | | | | Recovery, if unable to take PO | | | | | | + +-------+ +--------+---+---+ +-------+ +--------+---+---+ | Given | 05/30/19 | 0.5 mg | | | | | 20 1:35 | | | | | | PM PST | | | | +-------+ +--------+---+---+ | Given | 05/30/19 | 0.5 mg | | | | | 20 1:07 | | | | | | PM PST | | | | +-------+ +--------+---+---+ + +---+ | | | + +---+ | HYDROmorphone (DILAUDID) | | | injection 1 dose, Starting Mary | | | 05/30/19 at 1238, Until Mary 05/30/19 | | | at 1242 | | + +---+ | | | + +---+ + +-------+ +------+---+---+ | HYDROmorphone (DILAUDID) liquid | Given | 05/31/19 | 4 mg | | | | 2-4 mg 2-4 mg, oral, EVERY 4 | | 20 4:43 | | | | | HOURS NEEDED, Starting Mary | | AM PST | | | | | 05/30/19 at 1549, Until 2/7/20 | | | | | | | at 0801, moderate pain | | | | | | + +-------+ +------+---+---+ +-------+ +------+---+---+ | Given | 05/30/19 | 4 mg | | | | | 20 11:03 | | | | | | PM PST | | | | +-------+ +------+---+---+ | Given | 05/30/19 | 2 mg | | | | | 20 4:58 | | | | | | PM PST | | | | +-------+ +------+---+---+ +---+---+ | | | +---+---+ + +-------+ +------+---+---+ | HYDROmorphone (DILAUDID) liquid | Given | 06/02/19 | 4 mg | | | | 2-4 mg 2-4 mg, feeding tube, | | 20 8:50 | | | | | EVERY 3 HOURS NEEDED, Starting | | PM PST | | | | | 06/01/19 at 1450, Until Mon | | | | | | | 06/03/19 at 0556, moderate pain | | | | | | + +-------+ +------+---+---+ +-------+ +------+---+---+ | Given | 06/02/19 | 4 mg | | | | | 20 4:20 | | | | | | PM PST | | | | +-------+ +------+---+---+ | Given | 06/02/19 | 4 mg | | | | | 20 9:12 | | | | | | AM PST | | | | +-------+ +------+---+---+ +---+---+ | | | +---+---+ + +-------+ +------+---+---+ | HYDROmorphone (DILAUDID) liquid | Given | 05/31/19 | 4 mg | | | | 2-6 mg 2-6 mg, oral, EVERY 4 | | 20 9:00 | | | | | HOURS NEEDED, Starting Fri | | AM PST | | | | | 05/31/19 at 0759, Until 05/31/19 | | | | | | | at 1144, moderate pain | | | | | | + +-------+ +------+---+---+ +---+---+ | | | +---+---+ + +-------+ +------+---+---+ | HYDROmorphone (DILAUDID) liquid | Given | 06/01/19 | 4 mg | | | | 2-6 mg 2-6 mg, oral, EVERY 3 | | 20 10:04 | | | | | HOURS NEEDED, Starting Fri | | AM PST | | | | | 05/31/19 at 1145, Until 06/01/19 | | | | | | | at 1223, moderate pain | | | | | | + +-------+ +------+---+---+ +-------+ +------+---+---+ | Given | 06/01/19 | 2 mg | | | | | 20 9:08 | | | | | | AM PST | | | | +-------+ +------+---+---+ | Given | 06/01/19 | 6 mg | | | | | 20 4:20 | | | | | | AM PST | | | | +-------+ +------+---+---+ +---+---+ | | | +---+---+ + +-------+ +-------+---+---+ | hydrOXYzine (ATARAX) tablet 25 | Given | 06/02/19 | 25 mg | | | | mg 25 mg, oral, TWICE DAILY, | | 20 8:42 | | | | | First dose on Mary 05/30/19 at 2100, | | PM PST | | | | | Until Discontinued | | | | | | + +-------+ +-------+---+---+ +-------+ +-------+---+---+ | Given | 06/02/19 | 25 mg | | | | | 20 9:12 | | | | | | AM PST | | | | +-------+ +-------+---+---+ | Given | 06/01/19 | 25 mg | | | | | 20 8:34 | | | | | | PM PST | | | | +-------+ +-------+---+---+ +---+---+ | | | +---+---+ + +-------+ +------+---+---+ | ipratropium-albuterol (DUO-NEB) | Given | 05/30/19 | 3 mL | | | | nebulizer solution 3 mL 3 mL, | | 20 6:41 | | | | | inhalation, ONCE, 1 dose, Mary | | AM PST | | | | | 05/30/19 at 0630 | | | | | | + +-------+ +------+---+---+ + +---+ | | | + +---+ | ipratropium-albuterol (DUO-NEB) | | | nebulizer solution 1 dose, | | | Starting Mary 05/30/19 at 0600, | | | Until Mary 05/30/19 at 0641 | | + +---+ | | | + +---+ + +-------+ +-------+---+---+ | ketorolac (TORADOL) injection | Given | 06/02/19 | 15 mg | | | | 15 mg 15 mg, intravenous, EVERY | | 20 4:20 | | | | | 6 HOURS, First dose on Mon05/31/19 | | PM PST | | | | | at 0900, Until Discontinued | | | | | | + +-------+ +-------+---+---+ +-------+ +-------+---+---+ | Given | 06/02/19 | 15 mg | | | | | 20 9:18 | | | | | | AM PST | | | | +-------+ +-------+---+---+ | Given | 06/02/19 | 15 mg | | | | | 20 3:58 | | | | | | AM PST | | | | +-------+ +-------+---+---+ +---+---+ | | | +---+---+ + +---------+ + +---+---+ | lactated ringers (LR) bolus | New Bag | 05/30/19 | 1,000 mL | | | | 1,000 mL 1,000 mL, intravenous, | | 20 6:53 | | | | | ONCE, 1 dose, Mary 05/30/19 at 0700 | | AM PST | | | | + +---------+ + +---+---+ +---+---+ | | | +---+---+ + +---------+ + +---+---+ | lactated ringers (LR) bolus | New Bag | 05/31/19 | 1,000 mL | | | | 1,000 mL 1,000 mL, intravenous, | | 20 6:25 | | | | | ONCE, 1 dose, 05/31/19 at 1845 | | PM PST | | | | + +---------+ + +---+---+ +---+---+ | | | +---+---+ + +---------+ +--------+---+---+ | lactated ringers (LR) bolus 500 | New Bag | 06/01/19 | 500 mL | | | | mL 500 mL, intravenous, ONCE, 1 | | 20 3:00 | | | | | dose, 06/01/19 at 1500 | | PM PST | | | | + +---------+ +--------+---+---+ +---+---+ | | | +---+---+ + +---------+ + + +---+ | lactated ringers (LR) infusion | New Bag | 05/30/19 | 10 mL/hr | 10 mL/hr | | | 10 mL/hr, intravenous, PROCEDURE | | 20 6:53 | | | | | CONTINUOUS, Starting Mary 05/30/19 | | AM PST | | | | | at 0600, Until Mon05/30/19 at 1713 | | | | | | + +---------+ + + +---+ +---+---+ | | | +---+---+ + +---------+ +-------+-------+---+ | lactated ringers (LR) infusion | New Bag | 05/31/19 | 150 | 150 | | | 150 mL/hr, intravenous, | | 20 12:57 | mL/hr | mL/hr | | | CONTINUOUS, Starting Mary 05/30/19 | | AM PST | | | | | at 1115, Until Mon05/31/19 at 0649 | | | | | | + +---------+ +-------+-------+---+ + + +-------+-------+---+ | Rate/Dose Verify | 05/30/19 | 150 | 150 | | | | 20 11:45 | mL/hr | mL/hr | | | | PM PST | | | | + + +-------+-------+---+ | Rate/Dose Verify | 05/30/19 | 150 | 150 | | | | 20 7:46 | mL/hr | mL/hr | | | | PM PST | | | | + + +-------+-------+---+ +---+---+ | | | +---+---+ + +-------+ +-------+---+---+ | lamoTRIgine (LAMICTAL) tablet | Given | 06/02/19 | 25 mg | | | | 25 mg 25 mg, oral, TWICE DAILY, | | 20 8:41 | | | | | First dose on Mon05/31/19 at 0200, | | PM PST | | | | | Until Discontinued | | | | | | + +-------+ +-------+---+---+ +-------+ +-------+---+---+ | Given | 06/02/19 | 25 mg | | | | | 20 9:12 | | | | | | AM PST | | | | +-------+ +-------+---+---+ | Given | 06/01/19 | 25 mg | | | | | 20 8:34 | | | | | | PM PST | | | | +-------+ +-------+---+---+ +---+---+ | | | +---+---+ + + + +---------+---+---------+ | lidocaine (LIDODERM) 5 % patch | Applied | 06/02/19 | 1 patch | | Abdomen | | 1 patch 1 patch, transdermal, | Patch | 20 6:51 | | | | | EVERY 24 HOURS, First dose on Fri | | AM PST | | | | | 05/31/19 at 0615, Until | | | | | | | Discontinued | | | | | | + + + +---------+---+---------+ + + +---------+---+---------+ | Applied Patch | 06/01/19 | 1 patch | | Abdomen | | | 20 6:41 | | | | | | AM PST | | | | + + +---------+---+---------+ | Applied Patch | 05/31/19 | 1 patch | | Abdomen | | | 20 7:09 | | | | | | AM PST | | | | + + +---------+---+---------+ +---+---+ | | | +---+---+ + + + +---------+---+---------+ | lidocaine (LIDODERM) 5 % patch | Applied | 06/02/19 | 1 patch | | Abdomen | | 1 patch 1 patch, transdermal, | Patch | 20 9:12 | | | | | EVERY 24 HOURS, First dose on Mon | | AM PST | | | | | 05/31/19 at 0900, Until | | | | | | | Discontinued | | | | | | + + + +---------+---+---------+ + + +---------+---+---------+ | Applied Patch | 05/31/19 | 1 patch | | Abdomen | | | 20 9:02 | | | | | | AM PST | | | | + + +---------+---+---------+ +---+---+ | | | +---+---+ + + + +---------+---+---------+ | lidocaine (LIDODERM) 5 % patch | Applied | 06/02/19 | 1 patch | | Abdomen | | 1 patch 1 patch, transdermal, | Patch | 20 9:11 | | | | | EVERY 24 HOURS, First dose on Fri | | AM PST | | | | | 05/31/19 at 0900, Until | | | | | | | Discontinued | | | | | | + + + +---------+---+---------+ + + +---------+---+---------+ | Applied Patch | 06/01/19 | 1 patch | | Abdomen | | | 20 3:43 | | | | | | PM PST | | | | + + +---------+---+---------+ | Applied Patch | 05/31/19 | 1 patch | | Abdomen | | | 20 9:01 | | | | | | AM PST | | | | + + +---------+---+---------+ +---+---+ | | | +---+---+ + +-------+ +---+---+---+ | lidocaine (XYLOCAINE URO-JET) 2 | Given | 06/02/19 | | | | | % jelly urethral, ONCE, 1 dose, | | 20 8:50 | | | | | 06/02/19 at 2045 | | PM PST | | | | + +-------+ +---+---+---+ +---+---+ | | | +---+---+ + +-------+ +--------+---+---+ | magnesium chloride SR | Given | 06/02/19 | 128 mg | | | | (SLOW-MAG) tablet 128 mg 128 mg, | | 20 9:13 | | | | | oral, ONCE, 1 dose, 06/02/19 | | AM PST | | | | | at 0830 | | | | | | + +-------+ +--------+---+---+ +---+---+ | | | +---+---+ + +-------+ +-------+---+---+ | magnesium hydroxide (MILK OF | Given | 06/01/19 | 15 mL | | | | MAGNESIA) suspension 15 mL 15 | | 20 10:25 | | | | | mL, oral, TWICE DAILY, First dose | | AM PST | | | | | on Mon05/31/19 at 0900, Until | | | | | | | Discontinued | | | | | | + +-------+ +-------+---+---+ +-------+ +-------+---+---+ | Given | 05/31/19 | 15 mL | | | | | 20 10:37 | | | | | | PM PST | | | | +-------+ +-------+---+---+ | Given | 05/31/19 | 15 mL | | | | | 20 12:18 | | | | | | PM PST | | | | +-------+ +-------+---+---+ +---+---+ | | | +---+---+ + +-------+ +-------+---+---+ | magnesium hydroxide (MILK OF | Given | 06/01/19 | 15 mL | | | | MAGNESIA) suspension 15 mL 15 | | 20 8:34 | | | | | mL, feeding tube, TWICE DAILY, | | PM PST | | | | | First dose (after last | | | | | | | modification) on 06/01/19 at | | | | | | | 2100, Until Discontinued | | | | | | + +-------+ +-------+---+---+ +---+---+ | | | +---+---+ + +-------+ +-------+---+---+ | magnesium hydroxide (MILK OF | Given | 06/02/19 | 30 mL | | | | MAGNESIA) suspension 30 mL 30 | | 20 9:15 | | | | | mL, feeding tube, TWICE DAILY, | | AM PST | | | | | First dose (after last | | | | | | | modification) on 06/02/19 at | | | | | | | 0900, Until Discontinued | | | | | | + +-------+ +-------+---+---+ +---+---+ | | | +---+---+ + +-------+ +-------+---+---+ | metoclopramide HCl (REGLAN) | Given | 06/01/19 | 10 mg | | | | injection 10 mg 10 mg, | | 20 5:54 | | | | | intravenous, EVERY 6 HOURS | | PM PST | | | | | NEEDED, Starting Mary 05/30/19 at | | | | | | | 1713, Until 06/02/19 at 0713, | | | | | | | nausea/vomiting, if unable to | | | | | | | tolerate oral metoclopramide | | | | | | + +-------+ +-------+---+---+ +-------+ +-------+---+---+ | Given | 06/01/19 | 10 mg | | | | | 20 10:00 | | | | | | AM PST | | | | +-------+ +-------+---+---+ +---+---+ | | | +---+---+ + +-------+ +--------+---+---+ | mineral oil (FLEET MINERAL OIL) | Given | 05/31/19 | 133 mL | | | | rectal enema 133 mL 133 mL, | | 20 4:00 | | | | | rectal, ONCE, 1 dose, 05/31/19 | | PM PST | | | | | at 0900 | | | | | | + +-------+ +--------+---+---+ +---+---+ | | | +---+---+ + +-------+ +--------+---+---+ | mineral oil (FLEET MINERAL OIL) | Given | 06/02/19 | 133 mL | | | | rectal enema 133 mL 133 mL, | | 20 12:21 | | | | | rectal, ONCE, 1 dose, 06/02/19 | | PM PST | | | | | at 0745 | | | | | | + +-------+ +--------+---+---+ +---+---+ | | | +---+---+ + +-------+ +-------+---+---+ | mirtazapine (REMERON) tablet 15 | Given | 06/01/19 | 15 mg | | | | mg 15 mg, oral, EVERY EVENING, | | 20 8:34 | | | | | First dose on [facility] 05/30/19 at 2100, | | PM PST | | | | | Until Discontinued | | | | | | + +-------+ +-------+---+---+ +-------+ +-------+---+---+ | Given | 05/31/19 | 15 mg | | | | | 20 9:36 | | | | | | PM PST | | | | +-------+ +-------+---+---+ | Given | 05/30/19 | 15 mg | | | | | 20 11:05 | | | | | | PM PST | | | | +-------+ +-------+---+---+ +---+---+ | | | +---+---+ + +-------+ +-------+---+---+ | morphine (MSIR) liquid 15-30 mg | Given | 05/30/19 | 15 mg | | | | 15-30 mg, oral, EVERY 4 HOURS | | 20 12:07 | | | | | NEEDED, Starting Mary 05/30/19 at | | PM PST | | | | | 1120, Until Mary 05/30/19 at 1349, | | | | | | | moderate pain | | | | | | + +-------+ +-------+---+---+ +---+---+ | | | +---+---+ + +-------+ +------+---+---+ | morphine injection 1-3 mg 1-3 | Given | 05/30/19 | 2 mg | | | | mg, intravenous, EVERY 4 HOURS | | 20 11:56 | | | | | NEEDED, Starting Mary 05/30/19 at | | AM PST | | | | | 1116, Until Mary 05/30/19 at 1349, | | | | | | | severe pain | | | | | | + +-------+ +------+---+---+ +-------+ +------+---+---+ | Given | 05/30/19 | 1 mg | | | | | 20 11:36 | | | | | | AM PST | | | | +-------+ +------+---+---+ + +---+ | | | + +---+ | morphine injection 1 dose, | | | Starting Mary 05/30/19 at 1128, | | | Until Mary 05/30/19 at 1136 | | + +---+ | | | + +---+ + +-------+ +------+---+---+ | ondansetron (ZOFRAN) injection | Given | 05/30/19 | 4 mg | | | | 4 mg 4 mg, intravenous, ONCE, 1 | | 20 6:53 | | | | | dose, Mary 05/30/19 at 0700 | | AM PST | | | | + +-------+ +------+---+---+ +---+---+ | | | +---+---+ + +-------+ +------+---+---+ | ondansetron (ZOFRAN) injection | Given | 06/01/19 | 4 mg | | | | 4 mg 4 mg, intravenous, EVERY 12 | | 20 4:21 | | | | | HOURS NEEDED, Starting Mary | | PM PST | | | | | 05/30/19 at 1713, Until 06/03/19 | | | | | | | at 0556, n/v, if unable to take | | | | | | | oral form of medication | | | | | | + +-------+ +------+---+---+ +---+---+ | | | +---+---+ + +-------+ +------+---+---+ | ondansetron ODT (ZOFRAN ODT) | Given | 06/01/19 | 4 mg | | | | tablet 4 mg 4 mg, oral, EVERY 12 | | 20 5:22 | | | | | HOURS, 4 doses, First dose on | | AM PST | | | | | Mary 05/30/19 at 1715, Last dose on | | | | | | | 06/01/19 at 0515 | | | | | | + +-------+ +------+---+---+ +-------+ +------+---+---+ | Given | 05/31/19 | 4 mg | | | | | 20 4:57 | | | | | | PM PST | | | | +-------+ +------+---+---+ | Given | 05/31/19 | 4 mg | | | | | 20 4:43 | | | | | | AM PST | | | | +-------+ +------+---+---+ +---+---+ | | | +---+---+ + +-------+ +-------+---+---+ | pantoprazole (PROTONIX) tablet | Given | 06/02/19 | 20 mg | | | | 20 mg 20 mg, oral, TWICE DAILY, | | 20 8:43 | | | | | First dose on Mon05/30/19 at 2100, | | PM PST | | | | | Until Discontinued | | | | | | + +-------+ +-------+---+---+ +-------+ +-------+---+---+ | Given | 06/02/19 | 20 mg | | | | | 20 9:12 | | | | | | AM PST | | | | +-------+ +-------+---+---+ | Given | 06/01/19 | 20 mg | | | | | 20 8:34 | | | | | | PM PST | | | | +-------+ +-------+---+---+ +---+---+ | | | +---+---+ + +-------+ +--------+---+---+ | potassium chloride (KLOR-CON) | Given | 06/02/19 | 20 mEq | | | | packet 20 mEq 20 mEq, feeding | | 20 9:14 | | | | | tube, ONCE, 1 dose, 06/02/19 at | | AM PST | | | | | 0830 | | | | | | + +-------+ +--------+---+---+ +---+---+ | | | +---+---+ + + + +---+---+---+ | probiotic yogurt (SHOSHANA'S | Given - | 06/02/19 | | | | | YOGURT) oral, TWICE DAILY, First | Food | 20 8:47 | | | | | dose on Mon05/31/19 at 0900, | | PM PST | | | | | Until Discontinued | | | | | | + + + +---+---+---+ + + +---+---+---+ | Given - Food | 06/01/19 | | | | | | 20 8:35 | | | | | | PM PST | | | | + + +---+---+---+ +---+---+ | | | +---+---+ + +-------+ +------+---+---+ | prochlorperazine (COMPAZINE) | Given | 06/02/19 | 5 mg | | | | tablet 5-10 mg 5-10 mg, oral, | | 20 9:14 | | | | | EVERY 6 HOURS NEEDED, Starting | | AM PST | | | | | 06/01/19 at 1748, Until Mon | | | | | | | 06/03/19 at 0556, nausea/vomiting, | | | | | | | third line | | | | | | + +-------+ +------+---+---+ +---+---+ | | | +---+---+ + +-------+ +---------+---+---+ | promethazine (PHENERGAN) | Given | 05/30/19 | 12.5 mg | | | | injection 12.5 mg 12.5 mg, | | 20 3:21 | | | | | intravenous, POSTPROCEDURE PRN, 2 | | PM PST | | | | | doses, Starting Mary 05/30/19 at | | | | | | | 0805, Until Mary 05/30/19 at 1713, | | | | | | | nausea/vomiting, 1st line | | | | | | + +-------+ +---------+---+---+ +---+---+ | | | +---+---+ + +-------+ +-------+---+ + | ropivacaine (PF) (NAROPIN) | Given | 05/30/19 | 50 mL | | Surgical | | injection INTRAPROCEDURE PRN, | | 20 9:59 | | | Site | | Starting Mary 05/30/19 at 0959, | | AM PST | | | | | Until Mary 05/30/19 at 1024 | | | | | | + +-------+ +-------+---+ + +---+---+ | | | +---+---+ + + + +---------+---+ + | scopolamine (TRANSDERM-SCOP) 1 | Applied | 05/30/19 | 1 patch | | Right | | mg over 3 days 1 patch 1 patch, | Patch | 20 6:43 | | | Post | | transdermal, EVERY 72 HOURS, 1 | | AM PST | | | Auricula | | dose, First dose on Mary 05/30/19 at | | | | | r | | 0600 | | | | | | + + + +---------+---+ + +---+---+ | | | +---+---+ + + + +---------+---+------+ | scopolamine (TRANSDERM-SCOP) 1 | Applied | 06/02/19 | 1 patch | | Neck | | mg over 3 days 1 patch 1 patch, | Patch | 20 9:11 | | | | | transdermal, EVERY 72 HOURS, 1 | | AM PST | | | | | dose, First dose (after last | | | | | | | reorder) on 06/02/19 at 1015 | | | | | | + + + +---------+---+------+ + +---+ | | | + +---+ | scopolamine (TRANSDERM-SCOP) 1 | | | mg over 3 days 1 dose, Starting | | | Mary 05/30/19 at 0559, Until Sun | | | 06/02/19 at 0643 | | + +---+ | | | + +---+ + +-------+ +-------+---+---+ | simethicone chew (MYLICON) | Given | 05/31/19 | 80 mg | | | | tablet 80 mg 80 mg, oral, FOUR | | 20 9:00 | | | | | TIMES DAILY NEEDED, Starting | | AM PST | | | | | Mary 05/30/19 at 1258, Until Mon | | | | | | | 06/03/19 at 0556, bloating, | | | | | | | gas/bloating | | | | | | + +-------+ +-------+---+---+ +-------+ +-------+---+---+ | Given | 05/30/19 | 80 mg | | | | | 20 11:45 | | | | | | PM PST | | | | +-------+ +-------+---+---+ | Given | 05/30/19 | 80 mg | | | | | 20 5:51 | | | | | | PM PST | | | | +-------+ +-------+---+---+ +---+---+ | | | +---+---+ + +-------+ + +---+---+ | sodium phosphates (FLEET) 19-7 | Given | 06/02/19 | 1 Bottle | | | | gram/118 mL rectal enema 1 Bottle | | 20 6:19 | | | | | 1 Bottle, rectal, ONCE, 1 dose, | | PM PST | | | | | 06/02/19 at 1630 | | | | | | + +-------+ + +---+---+ +---+---+ | | | +---+---+ + +-------+ +--------+---+---+ | tamsulosin (FLOMAX) capsule 0.4 | Given | 06/02/19 | 0.4 mg | | | | mg 0.4 mg, oral, DAILY, First | | 20 9:14 | | | | | dose on Mon05/31/19 at 1415, Until | | AM PST | | | | | Discontinued | | | | | | + +-------+ +--------+---+---+ +-------+ +--------+---+---+ | Given | 06/01/19 | 0.4 mg | | | | | 20 10:10 | | | | | | AM PST | | | | +-------+ +--------+---+---+ | Given | 05/31/19 | 0.4 mg | | | | | 20 2:11 | | | | | | PM PST | | | | +-------+ +--------+---+---+ +---+---+ | | | +---+---+ + +-------+ +--------+---+---+ | thiamine tablet 100 mg 100 mg, | Given | 06/02/19 | 100 mg | | | | oral, DAILY, First dose on Mon | | 20 9:14 | | | | | 05/31/19 at 1445, Until | | AM PST | | | | | Discontinued | | | | | | + +-------+ +--------+---+---+ +-------+ +--------+---+---+ | Given | 06/01/19 | 100 mg | | | | | 20 10:10 | | | | | | AM PST | | | | +-------+ +--------+---+---+ | Given | 05/31/19 | 100 mg | | | | | 20 2:10 | | | | | | PM PST | | | | +-------+ +--------+---+---+ +---+---+ | | | +---+---+ + +-------+ +-------+---+---+ | topiramate (TOPAMAX) tablet 50 | Given | 06/02/19 | 50 mg | | | | mg 50 mg, oral, TWICE DAILY, | | 20 8:42 | | | | | First dose on Mon05/30/19 at 2100, | | PM PST | | | | | Until Discontinued | | | | | | + +-------+ +-------+---+---+ +-------+ +-------+---+---+ | Given | 06/02/19 | 50 mg | | | | | 20 9:15 | | | | | | AM PST | | | | +-------+ +-------+---+---+ | Given | 06/01/19 | 50 mg | | | | | 20 8:34 | | | | | | PM PST | | | | +-------+ +-------+---+---+ +---+---+ | | | +---+---+ documented in this encounter
--- OUTSIDE RECORDS SUMMARY | ~2019-11-17 | XMS | Encounter Summary ---
Demographics + + + | Address | [address] | | | [place] [address] | + + + | Home Phone | | + + + | Preferred Language | Unknown | + + + | Marital Status | | + + + | Evangelical Affiliation | NRP | + + + | Race | White | + + + | Ethnic Group | Not or | + + + Author + + + | Author | [facility] | + + + | Organization | [facility] | + + + | Address | Unknown | + + + | Phone | Unavailable | + + + Support + + +---------+ + | Name | Relationship | Address | Phone | + + +---------+ + | Jeovanny Hernández | ECON | Unknown | | + + +---------+ + Care Team Providers + +------+ + | Care Statistical Methods Teacher Name | Role | Phone | + [...] | | | | | [address] [facility] | M[place], | | | | | for Health and | [place] [address] | | | | | Healing, [address] | [phone] | | | | | [place], [place] | | | | | | [address] | | | | | | [phone] | | | +--------+ + + + [...] | | | uled | | [place], [place] | | | | | | [address] | | | | | | [phone] | | | | | | | | +--------+ + + + + | 12/01/ | Video/TeleH | Pain Management | Florencio Lockett, | | | 2019 | ealth-Sched | | PhD [address] | | | | uled | | [place], [place] | | | | | | [address] | | | | | | [phone] | | | | | | | | +--------+ + + + + | 01/06/ | Office | Plastic Surgery | Kuldip Harrell MD | | | 2020 | Visit | | [address] | | | | | | [place], [place] | | | | | | [address] | | | | | | [phone] | | | | | | | | +--------+ + + + + documented as of this encounter Visit Diagnoses Not on filedocumented in this encounter"
--- OUTSIDE RECORDS SUMMARY | ~2019-11-17 | XMS | Encounter Summary ---
Demographics + + + | Address | [address] | | | [place] [address] | + + + | Home Phone [...] + + + | Author | [facility] | + + + | Organization | [facility] | + + + | Address | Unknown | + + + | Phone | Unavailable | + + + Support + + +---------+ + | Name | Relationship | Address | Phone | + + +---------+ + | Jeovanny Hernández | ECON | Unknown | | + + +---------+ + Care Team Providers + +------+ + | Care Product Evangelist Name | Role | Phone | + [...] | 2019 | Encounter | Center at [facility] [address] | [address] | regarding [address] | | | | [address] | Monse Hernandez HOMER, | AG, [employer] | | | | for Health and | [place] [address] | | | | | Healing, [address] | [phone] | | | | | [place], [place] | | | | | | [address] | | | | | | [phone] | | | +--------+ + + + [...] | | | | uled | | [place], [place] | | | | | | [address] | | | | | | [phone] | | | | | | | | +--------+ + + + + | 12/01/ | Video/TeleH | Pain Management | Florencio Lockett, | | | 2019 | ealth-Sched | | PhD [address] | | | | uled | | [place], [place] | | | | | | [address] | | | | | | [phone] | | | | | | | | +--------+ + + + + | 01/06/ | Office | Plastic Surgery | Kuldip Harrell MD | | | 2020 | Visit | | [address] | | | | | | [place], [place] | | | | | | [address] | | | | | | [phone] | | | | | | | | +--------+ + + + + documented as of this encounter Visit Diagnoses Not on filedocumented in this encounter"
--- OUTSIDE RECORDS SUMMARY | ~2019-11-17 | XMS | Encounter Summary ---
Demographics + + + | Address | [address] | | | [place] [address] | + + + | Home Phone [...] Team Providers + +------+ + | Care Gutter Hanger Name | Role | Phone | + +------+ + | Alisha Stovall PA-C | PCP | | + +------+ + Encounter Details +--------+ + + + + | Date | Type | Department | Care Team | Description | +--------+ + + + + | 10/02/ | Telephone | Digestive Health | Harmony Billy, | | | 2019 | | [place] [address] | ,PhD [address] [facility] | | | | | [address] [facility] | | | | | [facility] and | [place], [place] | | | | | [place], [facility] [address] | [address] | | | | | [place], [place] | [phone] | | | | | [address] | | | | | | [phone] | | | +--------+ + + + [...] | | | | uled | | [place], [place] | | | | | | [address] | | | | | | [phone] | | | | | | | | +--------+ + + + + | 12/01/ | Video/TeleH | Pain Management | Florencio Lockett, | | | 2019 | ealth-Sched | | PhD [address] | | | | uled | | [place], [place] | | | | | | [address] | | | | | | [phone] | | | | | | | | +--------+ + + + + | 01/06/ | Office | Plastic Surgery | Kuldip Harrell MD | | | 2020 | Visit | | [address] | | | | | | [place] | | | | | | [address] | | | | | | [phone] | | | | | | | | +--------+ + + + + documented as of this encounter Visit Diagnoses Not on filedocumented in this encounter"
--- OUTSIDE RECORDS SUMMARY | ~2019-11-17 | XMS | Clinical Summary ---
Demographics + + + | Address | [address] | | | [place] [address] | + + + | Home Phone | | + + + | Preferred Language | Unknown | + + + | Marital Status | | + + + | Synagogue Affiliation | Unknown | + + + | Race | Unknown | + + + | Ethnic Group | Unknown | + + + Author + + + | Author | [facility] | | | and [place] | + + + | Organization | [facility] | | [...] [place], | | | | | [place] [address] | | + + + + + Care Team Providers + +------+ + | Care Clinical Care Manager Name | Role | Phone | [...] for Aimovig 70 mg/ml SC approved from [facility] from 08/28/19 to 11/28/19./Niru, | | [...] + + | 11/12/ | Telephone | Cardiology | Katheryn Hammonds DO | Other (rescheduling | | 2019 | | | | existing appt) | +--------+ + + + + | [...] | | 2019 | | | D, Bioinformatics Developer | APPT ) | +--------+ + + [...] | | 2019 | Visit | | [address] [place] [address] | | | | | | [place] | | | | | | [address] | | | | | | [phone] | | | | | | | | +--------+---------+ + + + | 12/01/ | Office | Cardiology | Nadege Chavez | | | 2020 | Visit | | [address] | | | | | | [address] | | | | | | [place] [address] | | | | | | [phone] | | | | | | | | +--------+---------+ + + + + + + + + | Health Maintenance | Due Date | Last | Comments | | | | Done | | + + + + + | Hepatitis C | | | | | Screening | 9 | | | + + + + + | Medication | | | | | Management | 9 | | | + + + + + | Vaccine: | | | | | Dtap/Tdap/Td (1 - | 8 | | | | Tdap) | | | | + + + + + | Statin Therapy | | | | | (optimal intensity) | 8 | | | + + + + + | Med Mgmt: Cr | | 09/02/19 | | | | 9 | 18 | | + + + + + | Med Mgmt: eGFR | | 09/02/19 | | | | 9 | 18 | | + + + + + | Cervical Cancer | | | | | Screening (Pap) | 9 | | | + + + + + | Vaccine: Influenza | | | | | (#1) | 0 | | | + + + + + Results Not on filefrom Last 3 [...] +--------+ +--------+ +---------+--------+ | | CHAMPV | [phone] | | [phone] | | Indemn | | | A | | 020-Pr | 7 | | ity | | | | | esent | | | | + +--------+ +--------+ +---------+--------+ | [employer]AN | MODA | [id number] | | [phone] | | Medica | | MEDICAID HMO | HEALTH | | 018-Pr | 1 | | id | | | MDCD | | esent | | | | | | [place]MO [place] | | | | | | + +--------+ +--------+ +---------+--------+ | [employer] | MODA | [id number] | 04/26/19 | [phone] | | Medica | | MEDICAID HMO | HEALTH | | 19-Pre | 1 | | id | | | MDCD | | sent | | | | | | [place]MO [place] | | | | | | + +--------+ +--------+ +---------+--------+ | [employer]AN | MODA | [id number] | 01/31/ | [phone] | | Medica | | MEDICAID HMO [...] | Self | [birth year] | [address] | | | al/Fam | | 1990 | [phone] | [place] | | | [place] | | | 9 (Home) | [address] | + +--------+ +--------+ + + | Maria De Jesus Hernández | Person | Self | [birth year] | [address] | | | al/Fam | | 1990 | [phone] | [place] | | | [place] | | | 9 (Home) | [address] | + +--------+ +--------+ + + | Maria De Jesus Hernández | Person | Self | [birth year] | | [address] | | | al/Fam | | 1990 | [phone] | [place] | | | [place] | | | 9 (Home) | [address] | + +--------+ +--------+ + + Advance Directives + + + + + | Type | Date Recorded | Patient | Explanation | | | | Belling Machine Operator | | + + + + + | Power of | | | | | Nurse Manager | | | | + + + + + | Advance | 09/01/2017 4:53 | | | | Directive | PM | | | + + + + +
--- OUTSIDE RECORDS SUMMARY | ~2019-11-17 | XMS | Encounter Summary ---
Demographics + + + | Address | [address] | | | [place] [address] | + + + | Home Phone [...] Team Providers + +------+ + | Care General Internist And Physician Leader Name | Role | Phone | + +------+ + | Alisha Stovall PA-C | PCP | | + +------+ + Reason for Visit +--------+ + | Reason | Comments | +--------+ + | Other | confirm UGI not EGD | +--------+ + Encounter Details +--------+ + + + + | Date | Type | Department | Care Team | Description | +--------+ + + + + | 05/03/ | Telephone | Digestive Health | Kenan Norton, | Other (confirm UGI | | 2019 | | Center at [facility] [address] | MD [address] | not EGD) | | | | [address] | [facility] [place] | | | | | for Health and | [address] | | | | | [facility] [address] | | | | | | [place], [place] | | | | | | [address] | | | | | | | [...] [address] | | | | ray | | [place], [place] | | | | | | [address] | | | | | | [phone] | | | | | | | | +--------+ + + + + | 12/01/ | Video/TeleH | Pain Management | Florencio Lockett, | | | 2019 | ealth-Sched | | PhD [address] | | | | uled | | [place], [place] | | | | | | [address] | | | | | | [phone] | | | | | | | | +--------+ + + + + | 01/06/ | Office | Plastic Surgery | Kuldip Harrell MD | | | 2019 | Visit | | [address] | | | | | | [place], [place] | | | | | | [address] | | | | | | [phone] | | | | | | | | +--------+ + + + + documented as of this encounter Visit Diagnoses Not on filedocumented in this encounter"
--- OUTSIDE RECORDS SUMMARY | ~2019-11-17 | XMS | Encounter Summary ---
Demographics + + + | Address | [address] | | | [place] [address] | + + + | Home Phone | | + + + | Preferred Language | Unknown | + + + | Marital Status | | + + + | Presybeterian Affiliation | NRP | + + + | Race | White | + + + | Ethnic Group | Not or | + + + Author + + + | Author | [facility] | + + + | Organization | [facility] | + + + | Address | Unknown | + + + | Phone | Unavailable | + + + Support + + +---------+ + | Name | Relationship | Address | Phone | + + +---------+ + | Jeovanny Hernández | ECON | Unknown | | + + +---------+ + Care Team Providers + +------+ + | Care Sausage Maker Name | Role | Phone | [...] | | 2018 | | Preventive at [facility] | [facility] [address] | order (Echo and [place] | | | | [address] | [address] [place], | stress test)) | | | | [facility] | [place] [address] | | | | | and Healing, | [phone] | | | | | [address] | | | | | | [place], [place] | | | | | | [address] | | | | | | [phone] | | | +--------+ + + + [...] Stress test Dx: R07.9, R60.0, Z01.810 CPT: 21796, 25975 Ordering Provider: Sarah Barba DOS: 02/14/2018 Location name: [facility] (Tax ID: [id number], ) Location address: [address] [place] [address] Location phone/fax: [phone] ph, fax Insurance Name: [facility] [place] ID Number: [id number] TEL: [phone] Notes: 02/12- [place] Approved, auth# [id number] vaild from 02/12/18- 05/13/18. Echo approved, auth# [id number], vaild from 02/12/18- 05/13/18. Faxed copies of both auths to [place] 02/08- S/w Audrey at [facility] who says NM test scheduled for 02/14 and Echo not s cheduled yet. She request chart notes, EKG info, and med list. (info faxed to Audrey) - Auth request for Echo and NM Stress test faxed to [facility]. Will follow up Mon documented in this encounter Plan of Treatment +--------+ + + + + | Date | Type | Specialty | Care Team | Description | +--------+ + + + + | 11/17/ | Video/TeleH | Pain Management | Florencio Lockett, | | | 2019 | ealth-Sched | | PhD [address] | | | | uled | | [place], [place] | | | | | | [address] | | | | | | [phone] | | | | | | | | +--------+ + + + + | 12/01/ | Video/TeleH | Pain Management | Florencio Lockett, | | | 2019 | ealth-Sched | | PhD [address] | | | | uled | | [place], [place] | | | | | | [address] | | | | | | [phone] | | | | | | | | +--------+ + + + + | 01/06/ | Office | Plastic Surgery | Kuldip Harrell MD | | | 2020 | Visit | | [address] | | | | | | [place], [place] | | | | | | [address] | | | | | | [phone] | | | | | | | | +--------+ + + + + documented as of this encounter Visit Diagnoses Not on filedocumented in this encounter"
--- OUTSIDE RECORDS SUMMARY | ~2019-11-17 | XMS | Encounter Summary ---
Demographics + + + | Address | [address] | | | [place] [address] | + + + | Home Phone | | + + + | Preferred Language | Unknown | + + + | Marital Status | | + + + | Hindu Affiliation | NRP | + + + [...] Team Providers + +------+ + | Care Site Leader Name | Role | Phone | + +------+ + | Alisha Stovall PA-C | PCP | | + +------+ + Encounter Details +--------+ + + + + | Date | Type | Department | Care Team | Description | +--------+ + + + + | 02/23/ | Abstract | Cardiology | Sarah Barba | | | 2018 | | Preventive at [facility] | [address] | | | | | [address] | [address] [place], | | | | | [place] [facility] | [place] [address] | | | | | and [place], | [phone] | | | | | [address] | | | | | | [place], [place] | | | | | | [address] | | | | | | [phone] | | | +--------+ + + + [...] | | | | uled | | [place], [place] | | | | | | [address] | | | | | | [phone] | | | | | | | | +--------+ + + + + | 12/01/ | Video/TeleH | Pain Management | Florencio Lockett, | | | 2019 | ealth-Sched | | PhD [address] | | | | uled | | [place], [place] | | | | | | [address] | | | | | | [phone] | | | | | | | | +--------+ + + + + | 01/06/ | Office | Plastic Surgery | Kuldip Harrell MD | | | 2019 | Visit | | [address] | | | | | | [place] | | | | | | [address] | | | | | | [phone] | | | | | | | | +--------+ + + + + documented as of this encounter Visit Diagnoses Not on filedocumented in this encounter"
--- OUTSIDE RECORDS SUMMARY | ~2019-11-17 | XMS | Encounter Summary ---
Demographics + + + | Address | [address] | | | [place] [address] | + + + | Home Phone [...] Team Providers + +------+ + | Care Shower Enclosure Installer Name | Role | Phone | + [...] Closed | | Gastroenterol | Diagnoses | Cierra, | Alessandra, | | | | ogy | | Kenan Santos MD | MD Casie | | | | | Gastroesopha | [address] | | | | | geal reflux | [address] | Martin Shea | | | | | disease, | [facility] [place], [place] | [place], | | | | | esophagitis | [address] | [place] | | | | | presence not | Phone: | [address] | | | | | specified | [phone] | Phone: | | | | | S/P gastric | Fax: | [phone] | | | | | bypass | [phone] | Fax: | | | | | Epigastric | | [phone] | | | | | pain | | | | | | | Decreased | | | | | | | oral intake | | | | | | | Inadequate | | | | | | | oral intake | | | | | | | Nausea | | | | | | | Procedures | | | | | | | CONSULT TO | | | | | | | GASTROENTERO | | | | | | | LOGY | | | +--------+--------+ + + + + PROC - Dept/Practice Procedure (Routine) +--------+--------+ + + + + | Status | Reason | Specialty | Diagnoses / | Referred By | Referred To | | | | | Procedures | Contact | Contact | +--------+--------+ + + + + | Closed | | Gastroenterol | Diagnoses | Radisson, | Gas Endo | | | | ogy | | Kenan Santos MD | [address] | | | | | Gastroesopha | [address] | | | | | geal reflux | [address] | [place] for | | | | | disease, | [place] | Health and | | | | | esophagitis | [address] | Healing, | | | | | presence not | Phone: | Building 2 | | | | | specified | | [place], [place] | | | | | S/P gastric | Fax: | [phone] | | | | | bypass | [phone] | Phone: | | | | | Epigastric | | [phone] | | | | | pain | | Fax: | | | | | Decreased | | [phone] | | | | | oral intake | | | | | | | Inadequate | | | | | | | oral intake | | | | | | | Nausea | | | | | | | Procedures | | | | | | | CONSULT TO | | | | | | | GI PROCEDURE | | | | | | | UNIT: | | | | | | | ESOPHAGEAL | | | | | | | MANOMETRY | | | +--------+--------+ + + + + Encounter Details +--------+ + + + + | Date | Type | Department | Care Team | Description | +--------+ + + + + | 02/04/ | MyChart | Digestive Health | Kenan Norton, | RE: next step | | 2019 | Encounter | Center at [facility] [address] | MD [address] | | | | | [address] [place] | [place], [place] | | | | | for Health and | [address] | | | | | Lali [facility] 2 | [phone] | | | | | [place], [place] | | | | | | [address] | | | | | | | [...] | | | | uljeancarlos | | [facility] [place] | | | | | | [address] | | | | | | [phone] | | | | | | | | +--------+ + + + + | 12/01/ | Video/TeleH | Pain Management | Florencio Lockett, | | | 2019 | ealth-Sched | | PhD [address] | | | | uled | | [place], [place] | | | | | | [address] | | | | | | [phone] | | | | | | | | +--------+ + + + + | 01/06/ | Office | Plastic Surgery | Kuldip Harrell MD | | | 2019 | Visit | | [address] | | | | | | [place], [place] | | | | | | [address] | | | | | | [phone] | | | | | | | | +--------+ + + + + documented as of this encounter Visit Diagnoses + + | Diagnosis | + + | Gastroesophageal reflux disease, esophagitis presence not specified - Primary | + + | S/P gastric bypass Bariatric surgery status | + + | Epigastric pain Abdominal pain, epigastric | + + | Decreased oral intake Other symptoms concerning nutrition, metabolism, and | | development | + + | Inadequate oral intake Other symptoms concerning nutrition, metabolism, and | | development | + + | Nausea Nausea alone | + + | Impaired intestinal absorption Unspecified intestinal malabsorption | + + documented in this encounter"
--- OUTSIDE RECORDS SUMMARY | ~2019-11-17 | XMS | Encounter Summary ---
Demographics + + + | Address | [address] | | | [place] [address] | + + + | Home Phone [...] Team Providers + +------+ + | Care Biological Science Technician Name | Role | Phone | [...] | 2019 | | Center at [facility] [address] | [address] | | | | | [address] [facility] | Monse Hernandez [place], | | | | | for Health and | [place] [address] | | | | | Lali, [facility] 2 | [phone] | | | | | [place], [place] | | | | | | [address] | | | | | | [phone] | | | +--------+ + + + [...] | | | | uled | | [place], [place] | | | | | | [address] | | | | | | [phone] | | | | | | | | +--------+ + + + + | 12/01/ | Video/TeleH | Pain Management | Florencio Lockett, | | | 2019 | ealth-Sched | | PhD [address] | | | | uled | | [place], [place] | | | | | | [address] | | | | | | [phone] | | | | | | | | +--------+ + + + + | 01/06/ | Office | Plastic Surgery | Kuldip Harrell MD | | | 2020 | Visit | | [address] | | | | | | [place], [place] | | | | | | [address] | | | | | | [phone] | | | | | | | | +--------+ + + + + documented as of this encounter Visit Diagnoses Not on filedocumented in this encounter"
--- OUTSIDE RECORDS SUMMARY | ~2019-11-17 | XMS | Encounter Summary ---
Demographics + + + | Address | [address] | | | [place] [address] | + + + | Home Phone | | + + + | Preferred Language | Unknown | + + + | Marital Status | | + + + | Gnosticist Affiliation | NRP | + + + | Race | White | + + + | Ethnic Group | Not or | + + + Author + + + | Author | [facility] | + + + | Organization | [facility] | + + + | Address | Unknown | + + + | Phone | Unavailable | + + + Support + + +---------+ + | Name | Relationship | Address | Phone | + + +---------+ + | Jeovanny Hernández | ECON | Unknown | | + + +---------+ + Care Team Providers + +------+ + | Care Academic Coach Name | Role | Phone | + [...] | | 2020 | | Center at [place] [address] | MD [address] | Request - Medication | | | | [address] [facility] | [place], [place] | ([facility]) | | | | for Health and | [address] | | | | | [facility] 2 | [phone] | | | | | [place], [place] | | | | | | [address] | | | | | | [phone] | | | +--------+ + + + [...] | | | | uljeancarlos | | [place], [place] | | | | | | [address] | | | | | | [phone] | | | | | | | | +--------+ + + + + | 12/01/ | Video/TeleH | Pain Management | Florencio Lockett, | | | 2019 | ealth-Sched | | PhD [address] | | | | uled | | [place], [place] | | | | | | [address] | | | | | | [phone] | | | | | | | | +--------+ + + + + | 01/06/ | Office | Plastic Surgery | Kuldip Harrell MD | | | 2019 | Visit | | [address] | | | | | | [place], [place] | | | | | | [address] | | | | | | [phone] | | | | | | | | +--------+ + + + + documented as of this encounter Visit Diagnoses Not on filedocumented in this encounter"
--- OUTSIDE RECORDS SUMMARY | ~2019-11-17 | XMS | Encounter Summary ---
Demographics + + + | Address | [address] | | | [place] [address] | + + + | Home Phone [...] Team Providers + +------+ + | Care Liquor Inspector Name | Role | Phone | + [...] | +--------+ + + + + | 10/30/ | Abstract | Digestive Health | Clinic, Surgery | Medical Records | | 2019 | | [address] [place] [address] [address] | | Review | | | | [address] [facility] | | | | | | for Health and | | | | | | Healing, [address] | | | | | | [place], [place] | | | | | | [address] | | | | | | [phone] | | | +--------+ + + + [...] | ealt-Sched | | PhD [address] | | | | ray | | [place], [place] | | | | | | [address] | | | | | | [phone] | | | | | | | | +--------+ + + + + | 12/01/ | Video/TeleH | Pain Management | Florencio Lockett G, | | | 2019 | ealth-Sched | | PhD [address] | | | | uled | | [place], [place] | | | | | | [address] | | | | | | [phone] | | | | | | | | +--------+ + + + + | 01/06/ | Office | Plastic Surgery | Kuldip Harrell MD | | | 2019 | Visit | | [address] | | | | | | [place], [place] | | | | | | [address] | | | | | | [phone] | | | | | | | | +--------+ + + + + documented as of this encounter Visit Diagnoses Not on filedocumented in this encounter"
--- OUTSIDE RECORDS SUMMARY | ~2019-11-17 | XMS | Encounter Summary ---
Demographics + + + | Address | [address] | | | [place] [address] | + + + | Home Phone | | + + + | Preferred Language | Unknown | + + + | Marital Status | | + + + | Gnosticism Affiliation | NRP | + + + [...] Team Providers + +------+ + | Care Traffic Control Technician Name | Role | Phone | + +------+ + | Alisha Stovall PA-C | PCP | | + +------+ + Encounter Details +--------+ + + + + | Date | Type | Department | Care Team | Description | +--------+ + + + + | 10/31/ | Telephone | Digestive Health | Kenan Norton, | | | 2019 | | Center at [facility] [address] | MD [address] | | | | | [address] [place] | [place], [place] | | | | | [facility] Health and | [address] | | | | | [address], [address] | [phone] | | | | | [place], [place] | | | | | | [address] | | | | | | [phone] | | | +--------+ + + + [...] | | | | uled | | [place], [place] | | | | | | [address] | | | | | | [phone] | | | | | | | | +--------+ + + + + | 12/01/ | Video/TeleH | Pain Management | Florencio Lockett, | | | 2019 | ealth-Sched | | PhD [address] | | | | uled | | [place], [place] | | | | | | [address] | | | | | | [phone] | | | | | | | | +--------+ + + + + | 01/06/ | Office | Plastic Surgery | Kuldip Harrell MD | | | 2020 | Visit | | [address] | | | | | | [place], [place] | | | | | | [address] | | | | | | [phone] | | | | | | | | +--------+ + + + + documented as of this encounter Visit Diagnoses Not on filedocumented in this encounter"
--- OUTSIDE RECORDS SUMMARY | ~2019-11-17 | XMS | Encounter Summary ---
Demographics + + + | Address | [address] | | | [place] [address] | + + + | Home Phone [...] Providers + +------+ + | Care Academic Computing Director Name | Role | Phone | + +------+ + | Alisha Stovall PA-C | PCP | | + +------+ + Encounter Details +--------+ + + + + | Date | Type | Department | Care Team | Description | +--------+ + + + + | 08/14/ | Abstract | Digestive Health | Clinic, Surgery | | | 2017 | | [address] [address] [address] | | | | | | [address] [facility] | | | | | | for Health and | | | | | | Healing, Building [address] | | | | | | [place], [place] | | | | | | [address] | | | | | | [phone] | | | +--------+ + + + [...] | | | | ray | | [place], [place] | | | | | | [address] | | | | | | [phone] | | | | | | | | +--------+ + + + + | 12/01/ | Video/TeleH | Pain Management | Florencio Lockett, | | | 2019 | ealth-Sched | | PhD [address] | | | | uled | | [facility] [place] | | | | | | [address] | | | | | | [phone] | | | | | | | | +--------+ + + + + | 01/06/ | Office | Plastic Surgery | Kuldip Harrell MD | | | 2019 | Visit | | [address] | | | | | | [place], [place] | | | | | | [address] | | | | | | [phone] | | | | | | | | +--------+ + + + + documented as of this encounter Visit Diagnoses Not on filedocumented in this encounter"
--- OUTSIDE RECORDS SUMMARY | ~2019-11-17 | XMS | Encounter Summary ---
Demographics + + + | Address | [address] | | | [place] [address] | + + + | Home Phone [...] Team Providers + +------+ + | Care Account Development Representative Name | Role | Phone | + +------+ + | Alisha Stovall PA-C | PCP | | + +------+ + Reason for Visit + + + | Reason | Comments | + + + | Refill Request | scopolamine | + + + Encounter Details +--------+--------+ + + + | Date | Type | Department | Care Team | Description | +--------+--------+ + + + | 08/26/ | Refill | Digestive Health | Kenan Norton, | Refill Request | | 2020 | | [place] [facility] [address] | [address] | (scopolamine) | | | | [address] [place] | [place], [place] | | | | | for Health and | [address] | | | | | [address]ali [facility] 2 | | | | | | [place], [place] | | | | | | [address] | | | | | | | [...] | | | | ray | | [facility] [place] | | | | | | [address] | | | | | | [phone] | | | | | | | | +--------+ + + + + | 12/01/ | Video/TeleH | Pain Management | Florencio Lockett, | | | 2019 | ealth-Sched | | PhD [address] | | | | uled | | [place], [place] | | | | | | [address] | | | | | | [phone] | | | | | | | | +--------+ + + + + | 01/06/ | Office | Plastic Surgery | Kuldip Harrell MD | | | 2019 | Visit | | [address] | | | | | | [place], [place] | | | | | | [address] | | | | | | [phone] | | | | | | | | +--------+ + + + + documented as of this encounter Visit Diagnoses Not on filedocumented in this encounter"
--- OUTSIDE RECORDS SUMMARY | ~2019-11-17 | XMS | Encounter Summary ---
Demographics + + + | Address | [address] | | | [place] [address] | + + + | Home Phone [...] Team Providers + +------+ + | Care Ammunition Storekeeper Name | Role | Phone | + [...] | Pain | Diagnoses | Petcu, | Server Manager Psych | | | | Management | Morbid | Aura, ACNP | [facility] [address] | | | | | obesity | [address] | | | | | ([facility]) | [facility] | [place] for | | | | | Diabetes | Rd | Health and | | | | | mellitus | [place], [place] | Healing, | | | | | treated with | [address] | Building | | | | | oral | Phone: | [address] Floor | | | | | medication | [phone] | [facility] [place] | | | | | (HCC) | Fax: | [address] | | | | | Hypertension | [phone] | Phone: | | | | | , | | [phone] | | | | | unspecified | | Fax: | | | | | type | | [phone] | | | | | Asthma, | [...] | [facility] | | | with SCAFFOLDER | | | Surg Chh2 | Chh2 [...] 2 | | | | | | [place], | [place], [place] | | | | | | [place] | [address] | | | | | | [address] | Phone: | | | | | | Phone: | | | | | | | | Fax: | | | | | | Fax: | [phone] | | | | | | [phone] | | +--------+ + + + + + Encounter Details +--------+---------+ + + + | Date | Type | Department | Care Team | Description | +--------+---------+ + + + | 11/10/ | Office | Digestive Health | Jody Watson ACNP | Morbid obesity (HCC) | | 2018 | Visit | Center at [facility] [address] | [address] | (Primary Dx); | | | | [facility] | [address] [place], | Diabetes mellitus | | | | for Health and | [place] [address] | treated with oral | | | | Healing, Building 2 | [phone] | medication ([facility]); | | | | [place], [place] | | Hypertension, | | | | [address] | | unspecified type; | | | | [phone] | | Asthma, unspecified | | | [...] Psychological Evaluation: Your referral is at [facility], the Pain Management Office w ill call you in the next week to schedule. + CPAP compliance: you will need to show CPAP compliance prior to surgery + Weight Management classes: 2 classes are required in addition to your private appointme nt with the wrapping machine tender. These classes will be scheduled apporoximately 1 month apart to allow time for you to put the teaching into action. Please call [phone] to schedule these classes after you have had your Dietitia n Appointment + Insurance requirements: your insurance requires : 6 month evaluation period Each insurance can have different requirements. Please CHECK with your insurance company to be sure you are meeting their requirements If you have any questions please call your insurance provider or call our main office jeff kim [phone] to have us help clarify. + Recommended [...] a healthy weight. + Sign up for [employer] so that we can communicate easily back [...] providers does not guarantee that the [facility] Bariatric Surger y program will deem you a surgical candidate. documented in this encounter Progress Notes Jody Watson ACNP - 11/10/2017 12:50 PM PDT BARIATRIC SURGERY INITIAL VISIT Provider: Jody Watson, MSN, AG-ACNP, CONDUCTOR ORCHESTRA Referring Provider: PCP Reason for Requested Consultation: [...] PCOS weight gain dx 2 years ago [place] syndrome Previous Weight Loss Attempts: Duration of obesity: 6 years. Onset of obesity at age 21 First diet attempts at age 21 Personally initiated diets: Programmatic diets: carolyn reema, weight watchers, slimfast, alkaline, weight solu tion Provider Monitored diet: phentermine but did not work Use of Redux or Phen/fen: no Transthoracic ECHO: n/a Jain or cultural reason you would refuse blood products? no All previous chart notes from PCP reviewed, previous tests and labs reviewed. Allergies: Allergies Allergen Reactions Ibuprofen Hives Benzonatate Rash Depakote [Divalproex Sodium] Suicidal Ideation Doxycycline Rash Percocet [Oxycodone-Acetaminophen] Nausea and Vomiting Braxton Oil Hives and Nausea and Vomiting Seroquel [...] iron) oral tablet, Take 1 tablet by [facility] three times daily., Disp: 270 tablet, Rfl: [...] edema. Positive hypertension. Denies hyperlipidemia. Denies CHF, [place], ischemic heart disease, DVT/PE, or pulmonary hypertension. [...] has been provided to Maria De Jesus Anna: #morbid obesity -bmi 54, weight loss recommendation [...] pericarditis -per pt report -does not see glass handler -ekg and cards consult due to CAD [...] Psychological Evaluation: Your referral is at [facility], the Pain Management Office w ill call you in the next week to schedule. + CPAP compliance: you will need to show CPAP compliance prior to surgery + Weight Management classes: 2 classes are required in addition to your private appointme nt with the wrapping machine tender. These classes will be scheduled apporoximately 1 month apart to allow time for you to put the teaching into action. Please call [phone] to schedule these classes after you have had your Dietitia n Appointment + Insurance requirements: your insurance requires : 6 month evaluation period Each insurance can have different requirements. Please CHECK with your insurance company to be sure you are meeting their requirements If you have any questions please call your insurance provider or call our main office jeff kim [phone] to have us help clarify. + Recommended [...] a healthy weight. + Sign up for [employer] so that we can communicate easily back [...] providers does not guarantee that the [facility] Bariatric Surger y program will deem you a surgical candidate. Jody Watson, MSN, AG-ACNP, CONDUCTOR ORCHESTRA Bariatric Surgery Nurse Practitioner [facility] | [address] | [place], [place] | [address] | I have spent 95 min with [...] Piyush Lockett, | | | 2019 | ealt-Sched | | PhD [address] | | | | uled | | [place], [place] | | | | | | [address] | | | | | | [phone] | | | | | | | | +--------+ + + + + | 12/01/ | Video/TeleH | Pain Management | Piyush Lockett, | | | 2019 | ealth-Sched | | PhD [address] | | | | uled | | [place], [place] | | | | | | [address] | | | | | | [phone] | | | | | | | | +--------+ + + + + | 01/06/ | Office | Plastic Surgery | Kuldip Harrell MD | | | 2020 | Visit | | [address] | | | | | | [place], [place] | | | | | | [address] | | | | | | [phone] | | | | | | | [...] | | e | 2:37 PM | ([facility]) Diabetes | procedure are in the | | | | PDT | mellitus treated | results section. | | | | | with oral medication | | | | | | ([facility]) | | | | | | Hypertension, [...] + + | [facility] | [address] [facility] | [place] [address] | | | SERVICES, CORE | PARK [...] + + + + + | [facility] | [address] | [place] [address] | | | SERVICES, CORE | PARK [...] and | 50 - 200 ng/mL | [facility] | | | | Female >18 years: [...] | + + + + + | [facility] | [address] | [place] [address] | | | ADONAY SMITH | SAMMI [...] [facility] | [address] | [place] [address] | | | SERVICES, CORE | SAMMI [...] + + + + + | [facility] | [address] | [place] [address] | | | SERVICES, CORE | SAMMI [...] | New Reference Range effective 17. | P[facility] | | | LABORATORY | | | SARAH, ADONAY | + + + + + + + + | Performing | Address | City/State/Zipcode | Phone Number | | Organization | | | | + + + + + | [facility] | [address] | [place] [address] | | | SARAH, ADONAY | SAMMI [...] + | [facility] | [address] | [place], [place] | | | CARDIOLOGY | [address] | [address] | | + + + + + [...]
--- OUTSIDE RECORDS SUMMARY | ~2019-11-17 | XMS | Encounter Summary ---
Demographics + + + | Address | [address] | | | [place] [address] | + + + | Home Phone [...] Team Providers + +------+ + | Care Truck Shop Mechanic Name | Role | Phone | + +------+ + | Alisha Stovall PA-C | PCP | | + +------+ + Encounter Details +--------+ + + + + | Date | Type | Department | Care Team | Description | +--------+ + + + + | 08/08/ | MyChart | Digestive Health | | labs | | 2020 | Encounter | Center at [facility] [address] | | | | | | [address] [facility] | | | | | | for Health and | | | | | | Healing, Building [address] | | | | | | [place], [place] | | | | | | [address] | | | | | | [phone] | | | +--------+ + + + [...] ealth-Sched | | PhD [address] | | | | uled | | [place], [place] | | | | | | [address] | | | | | | [phone] | | | | | | | | +--------+ + + + + | 12/01/ | Video/TeleH | Pain Management | Florencio Lockett, | | | 2019 | ealth-Sched | | PhD [address] | | | | uled | | [place], [place] | | | | | | [address] | | | | | | [phone] | | | | | | | | +--------+ + + + + | 01/06/ | Office | Plastic Surgery | Kuldip Harrell MD | | | 2020 | Visit | | [address] | | | | | | [place] | | | | | | [address] | | | | | | [phone] | | | | | | | | +--------+ + + + + documented as of this encounter Visit Diagnoses Not on filedocumented in this encounter"
--- OUTSIDE RECORDS SUMMARY | ~2019-11-17 | XMS | Encounter Summary ---
Demographics + + + | Address | [address] | | | [place] [address] | + + + | Home Phone | | + + + | Preferred Language | Unknown | + + + | Marital Status | | + + + | Confucianist Affiliation | NRP | + + + [...] Team Providers + +------+ + | Care Spring Floor Service Worker Name | Role | Phone | [...] | | | | [address] | | [place], [place] | | | | | | [address] | | | | | | [phone] | | | | | | | | +--------+ + + + + | 12/01/ | Video/TeleH | Pain Management | Florencio Lockett, | | | 2019 | ealth-Sched | | PhD [address] | | | | uled | | [place], [place] | | | | | | [address] | | | | | | [phone] | | | | | | | | +--------+ + + + + | 01/06/ | Office | Plastic Surgery | Kuldip Harrell MD | | | 2019 | Visit | | [address] | | | | | | [place], [place] | | | | | | [address] | | | | | | [phone] | | | | | | | | +--------+ + + + + documented as of this encounter Visit Diagnoses Not on filedocumented in this encounter"
--- OUTSIDE RECORDS SUMMARY | ~2019-11-17 | XMS | Encounter Summary ---
Demographics + + + | Address | [address] | | | [place] [address] | + + + | Home Phone [...] Team Providers + +------+ + | Care Manual Tester Name | Role | Phone | + [...] | | | | [address] | | [place], [place] | | | | | | [address] | | | | | | [phone] | | | | | | | | +--------+ + + + + | 12/01/ | Video/TeleH | Pain Management | Florencio Lockett, | | | 2019 | ealth-Sched | | PhD [address] | | | | uled | | [place], [place] | | | | | | [address] | | | | | | [phone] | | | | | | | | +--------+ + + + + | 01/06/ | Office | Plastic Surgery | Kuldip Harrell MD | | | 2019 | Visit | | [address] | | | | | | [place], [place] | | | | | | [address] | | | | | | [phone] | | | | | | | | +--------+ + + + + documented as of this encounter Visit Diagnoses Not on filedocumented in this encounter"
--- OUTSIDE RECORDS SUMMARY | ~2019-11-17 | XMS | Encounter Summary ---
Demographics + + + | Address | [address] | | | [place] [address] | + + + | Home Phone [...] Team Providers + +------+ + | Care Certified Breastfeeding Educator Name | Role | Phone | + +------+ + | Alisha Stovall PA-C | PCP | | + +------+ + Encounter Details +--------+ + + + + | Date | Type | Department | Care Team | Description | +--------+ + + + + | 08/14/ | Documentati | Digestive Health | Clinic, Surgery | | | 2018 | on | Center at [facility] [address] | | | | | | [address] [facility] | | | | | | for Health and | | | | | | Healing, [address] | | | | | | [place], [place] | | | | | | [address] | | | | | | [phone] | | | +--------+ + + + [...] | | | | ray | | [place], [place] | | | | | | [address] | | | | | | [phone] | | | | | | | | +--------+ + + + + | 12/01/ | Video/TeleH | Pain Management | Florencio Lockett G, | | | 2019 | ealth-Sched | | PhD [address] | | | | uled | | [place], [place] | | | | | | [address] | | | | | | [phone] | | | | | | | | +--------+ + + + + | 01/06/ | Office | Plastic Surgery | uKldip Harrell MD | | | 2019 | Visit | | [address] | | | | | | [place], [place] | | | | | | [address] | | | | | | [phone] | | | | | | | | +--------+ + + + + documented as of this encounter Visit Diagnoses Not on filedocumented in this encounter"
--- OUTSIDE RECORDS SUMMARY | ~2019-11-17 | XMS | Encounter Summary ---
Demographics + + + | Address | [address] | | | [place] [address] | + + + | Home Phone | | + + + | Preferred Language | Unknown | + + + | Marital Status | | + + + | Faith Affiliation | Unknown | + + + | Race | Unknown | + + + | Ethnic Group | Unknown | + + + Author + + + | Author | [facility] | | | and [place] | + + + | Organization | [facility] | | [...] [place], | | | | | [place] [address] | | + + + + + Care Team Providers + +------+ + | Care Extension Agent Name | Role | Phone | + [...] + + | 09/18/ | Office | [facility] | Katheryn Hammonds DO | Hypotension, | | 2020 | Visit | CARDIOLOGY JOHN PAUL | [address] | unspecified | | | | [address] [facility] | [place], [place] | hypotension type | | | | [address] | [id number] | (Primary Dx); | | | | [place] | | Dizziness | | | | [address] | | | | | | [phone] | | | +--------+---------+ + + + [...] Hammonds DO - 09/19/2019 10:00 AM PDT [facility] Cardiology Cardiology Follow Up Note Reason for [...] rafael ing well. She is followed at [facility]. She was getting IV infusions [...] been low recently. She followed up in [place] with her surgeon and there are plans [...] file Gets together: Not on file Attends confucianism service: Not on file Active member of [...] [place] | | | | | | [address] | | | | | | [phone] | | | | | | | | +--------+---------+ + + + | 12/01/ | Office | Cardiology | Nadege Chavez | | | 2019 | Visit | | [address] | | | | | | [address] | | | | | | [place] [address] | | | | | | [phone] | | | | | | | | +--------+---------+ + + + documented as of this encounter Visit Diagnoses + + | Diagnosis | + + | Hypotension, unspecified hypotension type - Primary | + + | Dizziness Dizziness and giddiness | + + documented in this encounter
--- OUTSIDE RECORDS SUMMARY | ~2019-11-17 | XMS | Encounter Summary ---
Demographics + + + | Address | [address] | | | [place] [address] | + + + | Home Phone | | + + + | Preferred Language | Unknown | + + + | Marital Status | | + + + | Mosque Affiliation | NRP | + + + | Race | White | + + + | Ethnic Group | Not or | + + + Author + + + | Author | [facility] | + + + | Organization | [facility] | + + + | Address | Unknown | + + + | Phone | Unavailable | + + + Support + + +---------+ + | Name | Relationship | Address | Phone | + + +---------+ + | Jeovanny Hernández | ECON | Unknown | | + + +---------+ + Care Team Providers + +------+ + | Care City Detective Name | Role | Phone | + [...] 09/04/ | Refill | Digestive Health | Campton, Kenan M, | Refill Request | | 2020 | | Center at [facility] [address] | MD [address] | (prochlorperazine ) | | | | [address] | [place], [place] | | | | | for Health and | [address] | | | | | [facility] [address] | | | | | | [place], [place] | | | | | | [address] | | | | | | | [...] | 2019 | ealth-Sched | | PhD [address] | | | | [place]os | | [place], [place] | | | | | | [address] | | | | | | [phone] | | | | | | | | +--------+ + + + + | 12/01/ | Video/TeleH | Pain Management | Florencio Lockett, | | | 2019 | ealth-Sched | | PhD [address] | | | | uled | | [place], [place] | | | | | | [address] | | | | | | [phone] | | | | | | | | +--------+ + + + + | 01/06/ | Office | Plastic Surgery | Kuldip Harrell MD | | | 2019 | Visit | | [address] | | | | | | [place], [place] | | | | | | [address] | | | | | | [phone] | | | | | | | | +--------+ + + + + documented as of this encounter Visit Diagnoses Not on filedocumented in this encounter"
--- OUTSIDE RECORDS SUMMARY | ~2019-11-17 | XMS | Encounter Summary ---
Demographics + + + | Address | [address] | | | [place] [address] | + + + | Home Phone [...] Team Providers + +------+ + | Care Youth Development Specialist Name | Role | Phone | [...] | | | | CONSULT TO | [place], [place] | Center for | | | | | SURGERY - | [address] | Health and | | | | | PLASTICS | Phone: | Healing, | | | | | | [phone] | Building 1, | | | | | | Fax: | 5th Floor | | | | | | [phone] | [place], [place] | | | | | | | [address] | | | | | | | Phone: | | | | | | | [phone] | + +--------+ + + + + [...] | [facility] | | | with METALIZER | | | Surg Chh2 | Chh2 [...] 2 | | | | | | [place], | [place], [place] | | | | | | [place] | [address] | | | | | | [address] | Phone: | | | | | | Phone: | [phone] | | | | | | | Fax: | | | | | | Fax: | [phone] | | | | | | [phone] | | + + + + + + + Encounter Details +--------+ + + + + | Date | Type | Department | Care Team | Description | +--------+ + + + + | 10/31/ | Video/TeleH | Digestive Health | Kenan Norton, | | | 2020 | ealth-[facility] | Center at [facility] [address] | MD [address] | | | | uljeancarlos | [address] | [facility] [place] | | | | | for Health and | [address] | | | | | Healing, [address] | | | | | | [place], [place] | | | | | | [address] | | | | | | | [...] virtually located at the distant site of [facility]. The patient stated they were located at the originating site of home and were in the state of [place] at the time of the virtual visit. The names of all additional persons participati ng in the virtual visit and their roles are: NA. I have spent a total of 20 minutes on this patient's care today. This time includes the vi rtual visit bxhe-wj-dfzm time with the patient as well as [...] regarding loose skin. Kenan Norton MD, MS Kennel Technician [facility] Bariatric Surgery Dept of Surgery documented in [...] | | | | uled | | [place], [place] | | | | | | [address] | | | | | | [phone] | | | | | | | | +--------+ + + + + | 12/01/ | Video/TeleH | Pain Management | Florencio Lockett, | | | 2019 | ealth-Sched | | PhD [address] | | | | uled | | [place], [place] | | | | | | [address] | | | | | | [phone] | | | | | | | | +--------+ + + + + | 01/06/ | Office | Plastic Surgery | Kuldip Harrell MD | | | 2019 | Visit | | [address] | | | | | | [place], [place] | | | | | | [address] | | | | | | [phone] | | | | | | | [...]
--- OUTSIDE RECORDS SUMMARY | ~2019-11-17 | XMS | Encounter Summary ---
Demographics + + + | Address | [address] | | | [place] [address] | + + + | Home Phone | | + + + | Preferred Language | Unknown | + + + | Marital Status | | + + + | Yazidi Affiliation | Unknown | + + + | Race | Unknown | + + + | Ethnic Group | Unknown | + + + Author + + + | Author | [facility] | | | and [place] | + + + | Organization | [facility] | | [...] [place], | | | | | [place] [address] | | + + + + + Care Team Providers + +------+ + | Care Fruit Sprayer Name | Role | Phone | + [...] + + | 09/01/ | Emergency | [facility] | Devan Farmer, | Abdominal wall | | 2018 | | MED CTR EMER[facility]Y | [id number] [address] | abscess (Primary Dx) | | | | CENTER [address] | [place] | | | | | [place] | [place] [address] | | | | | [address] | [phone] | | | | | [phone] | | | +--------+ + + + [...] might be different fro m the original. [facility] Emergency Department Encounter Note [address] [place] [address] PCP:No primary care provider on file. [phone] CHIEF COMPLAINT: Chief Complaint Patient presents with Skin Redness With Swelling ED Room: ED12/ED12 TRIAGE: ED Triage Notes, ED Triage Notes Anat Cowan, Guncotton Packer 09/01/2017 13:56 Cosign Required Pt reports going to urgent care last week for cellulitis. Pt reports going to ED in [facility] on where she had an ultrasound three [...] were reviewed along with EMS notes and [facility] record s if applicable. (See chart for [...] this chart may have been created with [employer] voice recognition software. Occasi onal wrong-word or sound-alike substitutions may have occurred due to the inherent to itations of voice recognition software. Please read the chart carefully and recognize, using context, where these substitutions have occurred Devan Farmer MD 09/01/17 8573 documented in this en counter Plan of Treatment +--------+---------+ + + + | Date | Type | Specialty | Care Team | Description | +--------+---------+ + + + | 11/18/ | Office | Neurology | Shirley Murdock NP | | | 2019 | Visit | | [address] [place] [address] | | | | | | [place] | | | | | | [address] | | | | | | [phone] | | | | | | | | +--------+---------+ + + + | 12/01/ | Office | Cardiology | Nadege Chavez | | | 2019 | Visit | | [address] | | | | | | [address] | | | | | | [place] [address] | | | | | | [phone] | | | | | | | [...] | + +--------+ + + + | NAKIA OATES, | STAT | 09/01/2017 | | Results [...] | Top Tube | | | [facility] | | | | | | MEDICAL [...] + | [facility] | [address] | [place] | [phone] | | [facility] | | [address] | | | - LABORATORY | | [...] ST. | [address] | [place] | [phone] | | [facility] | | [address] | | | - LABORATORY | | [...] | | B. anthracis | | [facility] | | | | | | MEDICAL | | | | | | CENTER - | | | | | | LABORATORY | | + + + + + + | Culture | 2+ Corynebacterium | | [facility] | | | | amycolatumComment: | | [facility] | | | | Consistent with skin | | MEDICAL | | | | adonis. | | CENTER - | | | | | | LABORATORY | | + + + + + + | Gram Stain | 1+ White Blood Cells | | [facility] | | | Result | | | [facility] | | | | | | MEDICAL | | | | | | CENTER - | | | | | | LABORATORY | | + + + + + + | Gram Stain | 1+ Epithelial cells | | [facility] | | | Result | | | [facility] | | | | | | MEDICAL | | | | | | CENTER - | | | | | | LABORATORY | | + + + + + + | Gram Stain | 1+ Gram positive cocci | | [facility] | | | Result | | | [facility] | | | | | | MEDICAL [...] | | [facility] | | | [facility] | | | - LABORATORY | + + + + + + + + | Performing | Address | City/State/Zipcode | Phone Number | | Organization | | | | + + + + + | [facility] | [address] | [place] | [phone] | | [facility] | | [address] | | | - LABORATORY | | [...] | | | | mmol/L | [facility] | | | | [...] | | | | | | [facility] | | | | | | MEDICAL | | | | | | CENTER - | | | | | | LABORATORY | | + + + + + + | CO2 | 22 (L) | 24 - 31 mmol/L | [facility] | | | | | | [facility] | | | | | | MEDICAL | | | | | | CENTER - | | | | | | LABORATORY | | + + + + + + | Anion Gap | 10 | 3 - 16 mmol/L | [facility] | | | | | | [facility] | | | | | | MEDICAL | | | | | | CENTER - | | | | | | LABORATORY | | + + + + + + | Glucose | 106 | 70 - 109 mg/dL | [facility] | | | | | | [facility] | | | [facility] | | MEDICAL | | | | | | CENTER - | | | | | | LABORATORY | | + + + + + + | BUN | 10 | 7 - 18 mg/dL | [facility] | | | | | | [facility] | | | | | | MEDICAL | | | | | | CENTER - | | | | | | LABORATORY | | + + + + + + | Creatinine | 0.76 | 0.60 - 1.30 | [facility] | | | | | mg/dL | [facility] | | | | | | MEDICAL | | | | | | CENTER - | | | | | | LABORATORY | | + + + + + + | eGFR if not | >60Comment: GLOMERULAR | >=60 | [facility] | | | | FILTRATION | mL/min/1.73m2 | [facility] | | | BR[place]EIAN | RATE,ESTIMATED | | MEDICAL | | | | mL/min/1.84z7Vqmm than | | CENTER - | | [...] | | | | mg/dL | [facility] | | | | | | MEDICAL | | | | | | CENTER - | | | | | | LABORATORY | | + + + + + + | BUN/Creatin | 13.2 | | [facility] | | | ine Ratio | | | [facility] | | | | | | MEDICAL [...] + | [facility] | [address] | [place] | [phone] | | [facility] | | [address] | | | - LABORATORY | | [...] | | | | mmol/L | [facility] | | | | | | [...] ST. | [address] | [place], [place] | [phone] | | [facility] | | [address] | | | - LABORATORY | | [...] | | Cells | | | [facility] | | | | | | MEDICAL | | | | | | CENTER - | | | | | | LABORATORY | | + + + + + + | Red Blood | 4.89 | 3.70 - 5.20 | [facility] | | | Cells | | M/uL | [facility] | | | | | | MEDICAL | | | | | | CENTER - | | | | | | LABORATORY | | + + + + + + | Hemoglobin | 12.5 | 11.5 - 16.0 | [facility] | | | | | g/dL | [facility] | | | | | | MEDICAL | | | | | | CENTER - | | | | | | LABORATORY | | + + + + + + | Hematocrit | 39.5 | 34.0 - 47.0 % | [facility] | | | | | | [facility] | | | | | | MEDICAL | | | | | | CENTER - | | | | | | LABORATORY | | + + + + + + | MCV | 80.7 (L) | 83.0 - 101.0 fL | [facility] | | | | | | [facility] | | | | | | MEDICAL | | | | | | CENTER - | | | | | | LABORATORY | | + + + + + + | MCH | 25.5 (L) | 28.0 - 35.0 pg | [facility] | | | | | | [facility] | | | | | | MEDICAL | | | | | | CENTER - | | | | | | LABORATORY | | + + + + + + | MCHC | 31.5 (L) | 32.0 - 36.0 | [facility] | | | | | g/dL | [facility] | | | | | | MEDICAL | | | | | | CENTER - | | | | | | LABORATORY | | + + + + + + | RDW-CV | 15.1 (H) | <15.0 % | [facility] | | | | | | [facility] | | | | | | MEDICAL | | | | | | CENTER - | | | | | | LABORATORY | | + + + + + + | Platelet | 280 | 140 - 440 K/uL | [facility] | | | Count | | | [facility] | | | | | | MEDICAL | | | | | | CENTER - | | | | | | LABORATORY | | + + + + + + | MPV | 8.8 | fL | [facility] | | | | | | [facility] | | | | | | MEDICAL | | | | | | CENTER - | | | | | | LABORATORY | | + + + + + + | % | 67.2 | 45.0 - 82.0 % | [facility] | | | Neutrophils | | | [facility] | | | | | | MEDICAL | | | | | | CENTER - | | | | | | LABORATORY | | + + + + + + | % | 25.2 | 20.0 - 45.0 % | [facility] | | | Lymphocytes | | | [facility] | | | | | | MEDICAL | | | | | | CENTER - | | | | | | LABORATORY | | + + + + + + | % Monocytes | 4.3 | 4.0 - 12.0 % | [facility] | | | | | | [facility] | | | | | | MEDICAL | | | | | | CENTER - | | | | | | LABORATORY | | + + + + + + | % | 1.9 | 0.0 - 5.0 % | [facility] | | | Eosinophils | | | [facility] | | | | | | MEDICAL | | | | | | CENTER - | | | | | | LABORATORY | | + + + + + + | % Basophils | 1.4 (H) | 0.0 - 1.0 % | [facility] | | | | | | [facility] | | | | | | MEDICAL | | | | | | CENTER - | | | | | | LABORATORY | | + + + + + + | Absolute | 7.20 | 1.80 - 8.50 | [facility] | | | Neutrophils | | K/uL | [facility] | | | | | | MEDICAL | | | | | | CENTER - | | | | | | LABORATORY | | + + + + + + | Absolute | 2.70 | 0.60 - 3.20 | [facility] | | | Lymphocytes | | K/uL | [facility] | | | | | | MEDICAL | | | | | | CENTER - | | | | | | LABORATORY | | + + + + + + | Absolute | 0.50 | 0.00 - 1.00 | [facility] | | | Monocytes | | K/uL | [facility] | | | | | | MEDICAL | | | | | | CENTER - | | | | | | LABORATORY | | + + + + + + | Absolute | 0.20 | 0.00 - 0.40 | [facility] | | | Eosinophils | | K/uL | [facility] | | | | | | MEDICAL | | | | | | CENTER - | | | | | | LABORATORY | | + + + + + + | Absolute | 0.20 (H) | 0.00 - 0.10 | [facility] | | | Basophils | | K/uL | [facility] | | | | | | MEDICAL [...] ST. | [address] | [place] | [phone] | | [facility] | | [address] | | | - LABORATORY | | [...]
--- OUTSIDE RECORDS SUMMARY | ~2019-11-17 | XMS | Encounter Summary ---
Demographics + + + | Address | [address] | | | [place] [address] | + + + | Home Phone [...] Team Providers + +------+ + | Care Box Fabricator Name | Role | Phone | + +------+ + | Alisha Stovall PA-C | PCP | | + +------+ + Encounter Details +--------+ + + + + | Date | Type | Department | Care Team | Description | +--------+ + + + + | 02/23/ | Abstract | Cardiology | Sarah Barba | | | 2018 | | Preventive at [facility] | [address] | | | | | [address] | [address] [place], | | | | | [facility] | [place] [address] | | | | | and [place], | [phone] | | | | | Building [address] | | | | | | [place], [place] | | | | | | [address] | | | | | | [phone] | | | +--------+ + + + [...] | | | | uled | | [place], [place] | | | | | | [address] | | | | | | [phone] | | | | | | | | +--------+ + + + + | 12/01/ | Video/TeleH | Pain Management | Florencio Lockett, | | | 2019 | ealth-Sched | | PhD [address] | | | | uled | | [place], [place] | | | | | | [address] | | | | | | [phone] | | | | | | | | +--------+ + + + + | 01/06/ | Office | Plastic Surgery | Kuldip Harrell MD | | | 2019 | Visit | | [address] | | | | | | [place] | | | | | | [address] | | | | | | [phone] | | | | | | | | +--------+ + + + + documented as of this encounter Visit Diagnoses Not on filedocumented in this encounter"
--- OUTSIDE RECORDS SUMMARY | ~2019-11-17 | XMS | Encounter Summary ---
Demographics + + + | Address | [address] | | | [place] [address] | + + + | Home Phone [...] Team Providers + +------+ + | Care [employer] School Social Science Teacher Name | Role | Phone | [...] | 2018 | Visit | Center at [facility] [address] | | (Primary Dx) | | | | [address] | | | | | | for Health and | | | | | | Healing, [address] | | | | | | [place], [place] | | | | | | [address] | | | | | | [phone] | | | +--------+---------+ + + + [...] of Class: 2:00/3:00 until 3:00/4:00 (60 minutes gogc-vz-ugws with patient) OBJECTIVE: Height: Ht Readings from [...] or sharing information. Yes Lisa Medina RD, [facility], [facility] Bariatrics [phone] documented in this enco unter Plan of Treatment +--------+ + + + + | Date | Type | Specialty | Care Team | Description | +--------+ + + + + | 11/17/ | Video/TeleH | Pain Management | Florencio Lockett, | | | 2019 | ealth-Sched | | PhD [address] | | | | uled | | [place], [place] | | | | | | [address] | | | | | | [phone] | | | | | | | | +--------+ + + + + | 12/01/ | Video/TeleH | Pain Management | Florencio Lockett, | | | 2019 | ealth-Sched | | PhD [address] | | | | uled | | [place], [place] | | | | | | [address] | | | | | | [phone] | | | | | | | | +--------+ + + + + | 01/06/ | Office | Plastic Surgery | Kuldip Harrell MD | | | 2020 | Visit | | [address] | | | | | | [place], [place] | | | | | | [address] | | | | | | [phone] | | | | | | | | +--------+ + + + + documented as of this encounter Visit Diagnoses + + | Diagnosis | + + | Morbid obesity (HCC) - Primary Morbid obesity | + + documented in this encounter
--- OUTSIDE RECORDS SUMMARY | ~2019-11-17 | XMS | Encounter Summary ---
Demographics + + + | Address | [address] | | | [place] [address] | + + + | Home Phone | | + + + | Preferred Language | Unknown | + + + | Marital Status | | + + + | Restoration Affiliation | Unknown | + + + [...] Anna | ECON | [address] | | | | | [place], | | | | | [place] [address] | | + + + + + Care Team Providers + +------+ + | Care Vendor Specialist Name | Role | Phone | [...] | | CONVERSION [address] | SHANICE Villafuerte [address] | | | | [address] | [place], | | | | | [place], [place] | [place] [address] | | | | | [address] | [phone] | | | | | [phone] | | | +--------+ + + + [...] | Visit | | [address] [place] | | | | | | [place] | | | | | | [address] | | | | | | [phone] | | | | | | | | +--------+---------+ + + + | 12/01/ | Office | Cardiology | Nadege Chavez | | | 2019 | Visit | | [address] | | | | | | [address] | | | | | | [place] [address] | | | | | | [phone] | | | | | | | [...] | A Edm[place]: 0.55 m/s MV Dec [place]: 3.60 m/s2 MV DecT: 218.00 ms | [...] TR Vmax: 2.04 m/s | | | Reports Analyst: JAKE Authenticated by: Brooke Campbell Report Date/Time: | | | 02-22-2018 20:34:39 | | + + + + + | Procedure Note | + + | Camilo, Rojelio Conversion - 12/13/2018 5:10 PM PDT Patient Name: Chan Anna of | | : 1990 Performing Physician: Brooke | | [place] INDICATIONS------ | | -----Chest pain, Edema, Bariatric [...] cmLVPWd: 0.99 cmLVOT Area: | | 4.04 [id number] Diam: 2.26 cm%FS: 29.98 %EF(Teich): 56.59 %ESV(Teich): [...] | Index (A-L): 17.34 ml/m2LAAs A2C: 19.05 do3HFFDD A-L A2C: 55.38 mlLALs A2C: 5.56 | | cmLAAs A4C: 13.87 co9URABX A-L A4C: 35.36 mlLALs A4C: 4.62 cmRAAs: 13.39 | | fj8GVWKQ A-L: 32.25 mlRAESV MOD: 31.42 mlRALs: 4.71 cmTAPSE: 2.73 cmAV maxPG: | | 7.37 mmHgAV meanP.91 mmHgAV Vmax: 1.35 m/Abe Vmean: 0.92 m/Abe VTI: 24.65 | | cmAVA Vmax: 3.79 cm2AVA (VTI): 4.08 uz9BZRY maxP.51 mmHgLVOT meanP.19 | | mmHgLVSI Dopp: 35.92 ml/m2LVSV Dopp: 100.60 mlLVOT Vmax: 1.27 m/sLVOT Vmean: | | 0.81 m/sLVOT VTI: 24.88 cmMV A Edm[place]: 0.55 m/sMV Dec [place]: 3.60 m/s2MV DecT: | | 218.00 msMV E Edm[place]: 0.78 m/sMV E/A Ratio: 1.40MV PHT: 63.22 msMVA By PHT: 3.47 | | nx1Gypvpq e': 0.08 m/sSeptal E/e': 8.76Lateral e': 0.11 m/sLateral E/e': | | 6.67RAP: 5 mmHgRVSP: 21.75 mmHgTR maxP.75 mmHgTR Vmax: 2.04 m/s | | Reports Analyst: GUIDOuthenticated by: Brooke Ellis Date/Time: 02-22-2018 20:34:39 [...] A [place]: 0.55 m/s | |MV Dec [place]: 3.60 m/s2 | |MV DecT: 218.00 ms [...] |TR Vmax: 2.04 m/s | | | |Reports Analyst: JAKE | |Authenticated by: Brooke Campbell | [...]
--- OUTSIDE RECORDS SUMMARY | ~2019-11-17 | XMS | Encounter Summary ---
Demographics + + + | Address | [address] | | | [place] [address] | + + + | Home Phone | | + + + | Preferred Language | Unknown | + + + | Marital Status | | + + + | Voodoo Affiliation | Unknown | + + + | Race | Unknown | + + + | Ethnic Group | Unknown | + + + Author + + + | Author | [facility] | | | and [place] | + + + | Organization | [facility] | | | [...] [place], | | | | | [place] [address] | | + + + + + Care Team Providers + +------+ + | Care Nuclear Fuels Research Engineer Name | Role | Phone | [...] and without | [address], [place] | [address] | | | | | status | [place], | Phone: | | | | | migrainosus | [place] [address] | [phone] | | | | | Procedures | Phone: | Fax: | | | | | MRI Brain w | [phone] | [phone] | | | | | wo Contrast | Fax: | | | | | | | [phone] | | +--------+--------+ + + + + [...] | | | migrainosus | [place], | [address] Phone: | | | | | | [place] | [phone] | | | | | | [address] | Fax: | | | | | | Phone: | [phone] | | | | | | [phone] | | | | | | | Fax: | | | | | | | [phone] | | +--------+ + + + + [...] | DR SILVANO PAINTER, | [place] [address] | migrainosus | | | | [place] [address] | [phone] | | | | | [phone] | | | +--------+---------+ + + + [...] You have the following tests/procedures ordered.h At [facility] Radiology : Brain MRI with and without contrast EEG routine Medication Instructions: Increase Topamax to 50 mg twice a day *Any questions, please call Dr. Joel's office at Patient advised of their right to have diagnostic testing, health care treatment, and/or se rvices at a facility other than [facility]. Preventing Migraine Headaches: Triggers Red [...] it happens. Date Last Reviewed: 08/22/2017 [employer] [address] [place] [address]. All righ ts reserved. This information is [...] Nonsteroidal anti-inflammatory drugs (such as ibuprofen, available caew-pal-tjlcplp) ? Beta-blockers ? Anticonvulsants ? Tricyclic antidepressants [...] you consume. Date Last Reviewed: 08/22/2017 [employer] [address] [place] [address]81. All righ ts reserved. This information is not intended as a substitute for professional medical care. Always follow your healthcare professional's instructions. documented in this encounter Progress Notes Caity Joel MD - 08/23/2018 11:00 AM PDT Patient: Maria De Jesus Anna Medical Record: [id number] Date of Services: 08/23/2018 Referring Doctor: Alisha Stovall PA-C Chief Complaint Patient presents with Migraine HISTORY OF PRESENT ILLNESS: The patient is a 27-year-old female who is referred to me because of migraine headaches. She has had headaches for several years. Until recently, she was under the care of a neuro logist at [facility]. However, after not showing up for a [...] (TRI-PREVIFEM PO) Take by mouth. nystatin (MYCOSTATIN) 388722 UNIT/GM powder ondansetron (ZOFRAN ODT) 4 mg [...] and oriented to time, place, and person. [facility] is fluent. Memory, attention, comprehension, and general [...] CEREBELLAR EXAMINATION: There is no dysmetria on xqsrsg-jl-ucuf test. IMPRESSION: 1. Intractable migraine without aura [...] [place] | | | | | | [address] | | | | | | [phone] | | | | | | | | +--------+---------+ + + + | 12/01/ | Office | Cardiology | Nadege Chavez | | | 2020 | Visit | | [address] | | | | | | [address] | | | | | | [place] [address] | | | | | | [phone] | | | | | | | | +--------+---------+ + + + documented as of this encounter Results EEG awake or drowsy routine (09/14/2018 3:10 PM PDT) + + + | Narrative | Performed At | + + + | Caity Joel MD 09/14/2018 15:11 Name:Maria De Jesus Villafuerte John | | [place] :1990 DATE OF SERVICE: 09/14/2018 | | [...]
--- OUTSIDE RECORDS SUMMARY | ~2019-11-17 | XMS | Encounter Summary ---
Demographics + + + | Address | [address] | | | [place] [address] | + + + | Home Phone [...] Author + + + | Author | [facility] | + + + | Organization | [facility] | + + + | Address | Unknown | + + + | Phone | Unavailable | + + + Support + + +---------+ + | Name | Relationship | Address | Phone | + + +---------+ + | Jeovanny Hernández | ECON | Unknown | | + + +---------+ + Care Team Providers + +------+ + | Care Framing Mill Operator Name | Role | Phone | + +------+ + | Alisha Stovall PA-C | PCP | | + +------+ + Encounter Details +--------+ + + + + | Date | Type | Department | Care Team | Description | +--------+ + + + + | 03/07/ | Abstract | Digestive Health | Clinic, Surgery | | | 2017 | | [place] [address] [address] | | | | | | [address] [facility] | | | | | | for Health and | | | | | | Healing, [address] | | | | | | [place], [place] | | | | | | [address] | | | | | | [phone] | | | +--------+ + + + [...] | | | | uled | | [place], [place] | | | | | | [address] | | | | | | [phone] | | | | | | | | +--------+ + + + + | 12/01/ | Video/TeleH | Pain Management | Florencio Lockett, | | | 2019 | ealth-Sched | | PhD [address] | | | | uled | | [place], [place] | | | | | | [address] | | | | | | [phone] | | | | | | | | +--------+ + + + + | 01/06/ | Office | Plastic Surgery | Kuldip Harrell MD | | | 2019 | Visit | | [address] | | | | | | [place], [place] | | | | | | [address] | | | | | | [phone] | | | | | | | | +--------+ + + + + documented as of this encounter Visit Diagnoses Not on filedocumented in this encounter"
--- OUTSIDE RECORDS SUMMARY | ~2019-11-17 | XMS | Encounter Summary ---
Demographics + + + | Address | [address] | | | [place] [address] | + + + | Home Phone [...] Team Providers + +------+ + | Care Temperature Control Inspector Name | Role | Phone | + +------+ + | Alisha Stovall PA-C | PCP | | + +------+ + Encounter Details +--------+ + + + + | Date | Type | Department | Care Team | Description | +--------+ + + + + | 07/26/ | MyChart | Digestive Health | Kenan Norton, | RE: feeding tube | | 2019 | Encounter | Center at [facility] [address] | MD [address] | | | | | [address] | [facility] [place] | | | | | for Health and | [address] | | | | | Healing, [address] | [phone] | | | | | [place], [place] | | | | | | [address] | | | | | | | [...] ealth-Sched | | PhD [address] | | | | uled | | [place], [place] | | | | | | [address] | | | | | | [phone] | | | | | | | | +--------+ + + + + | 12/01/ | Video/TeleH | Pain Management | Florencio Lockett, | | | 2019 | ealth-Sched | | PhD [address] | | | | uled | | [place], [place] | | | | | | [address] | | | | | | [phone] | | | | | | | | +--------+ + + + + | 01/06/ | Office | Plastic Surgery | Kuldip Harrell MD | | | 2020 | Visit | | [address] | | | | | | [place], [place] | | | | | | [address] | | | | | | [phone] | | | | | | | | +--------+ + + + + documented as of this encounter Visit Diagnoses Not on filedocumented in this encounter"
--- OUTSIDE RECORDS SUMMARY | ~2019-11-17 | XMS | Encounter Summary ---
Demographics + + + | Address | [address] | | | [place] [address] | + + + | Home Phone [...] Team Providers + +------+ + | Care Ceramic Capacitor Processor Name | Role | Phone | [...] | Encounter | Lab at [facility] [address] | SHANICE Vill[address]te [address] | | | | | [address] [facility] | [address] [facility] | | | | | Health and Healing, | [place] [address] | | | | | [place] [address] [facility] | [phone] | | | | | [place], [place] | | | | | | [address] | | | | | | [phone] | | | +--------+ + + + [...] | | | | uled | | [place], [place] | | | | | | [address] | | | | | | [phone] | | | | | | | | +--------+ + + + + | 12/01/ | Video/TeleH | Pain Management | Florencio Lockett G, | | | 2019 | ealth-Sched | | PhD [address] | | | | uled | | [place], [place] | | | | | | [address] | | | | | | [phone] | | | | | | | | +--------+ + + + + | 01/06/ | Office | Plastic Surgery | Kuldip Harrell MD | | | 2019 | Visit | | [address] | | | | | | [place], [place] | | | | | | [address] | | | | | | [phone] | | | | | | | [...] Note | + + | Service Account, NildaZafu Res In Interface - 02/06/2018 5:07 PM [...] the report as now presented. Final signature: John Benz | 02/06/2018 5:06 PM Preliminary: Ean Brand [...]
--- OUTSIDE RECORDS SUMMARY | ~2019-11-17 | XMS | Encounter Summary ---
Demographics + + + | Address | [address] | | | [place] [address] | + + + | Home Phone [...] Providers + +------+ + | Care Mri Technologist Name | Role | Phone | + +------+ + | Alisha Stovall PA-C | PCP | | + +------+ + Encounter Details +--------+ + + + + | Date | Type | Department | Care Team | Description | +--------+ + + + + | 09/24/ | Pharmacy | Outpatient Retail | | | | 2019 | Visit | [facility] | | | | | | [address] | | | | | | [address] [place], [place] | | | | | | [address] | | | | | | [phone] | | | +--------+ + + + [...] | | | uled | | [place], [place] | | | | | | [address] | | | | | | [phone] | | | | | | | | +--------+ + + + + | 12/01/ | Video/TeleH | Pain Management | Florencio Lockett, | | | 2019 | ealth-Sched | | PhD [address] | | | | uled | | [place], [place] | | | | | | [address] | | | | | | [phone] | | | | | | | | +--------+ + + + + | 01/06/ | Office | Plastic Surgery | Kuldip Harrell MD | | | 2019 | Visit | | [address] | | | | | | [place], [place] | | | | | | [address] | | | | | | [phone] | | | | | | | | +--------+ + + + + documented as of this encounter Visit Diagnoses Not on filedocumented in this encounter"
--- OUTSIDE RECORDS SUMMARY | ~2019-11-17 | XMS | Encounter Summary ---
Demographics + + + | Address | [address] | | | [place] [address] | + + + | Home Phone | | + + + | Preferred Language | Unknown | + + + | Marital Status | | + + + | Congregational Affiliation | NRP | + + + [...] Providers + +------+ + | Care Certified Coatings Inspector Name | Role | Phone | [...] | | 2018 | | Preventive at [facility] | | Review (gen | | | | [address] | | checklist) | | | | Center for Health | | | | | | and Healing, | | | | | | [address] | | | | | | [place], [place] | | | | | | [address] | | | | | | [phone] | | | +--------+ + + + [...] Available Comments Referring Provider notes Jody Watson [facility] - [facility] N/A Referral Last EKG (REPORT ONLY) Note: Tracings needed if being seen for abnormal ECG 11-10-17 [facility] - [facility] N/A Last Echo images and report - - - - Last Stress Test images and report - - - - Last Cardiac Catheterization images and report - - - - Last Holter or Event monitor report only - - - N/A Labs (BMP, Lipids, TSH, Hemoglobin A1C in last 6 months) 11-10-17 [facility] - 33[facility]ross N/A Last Device Check (schedule device check [...] | | | | uled | | [place], [place] | | | | | | [address] | | | | | | [phone] | | | | | | | | +--------+ + + + + | 12/01/ | Video/TeleH | Pain Management | Florencio Lockett, | | | 2019 | ealth-Sched | | PhD [address] | | | | uled | | [place], [place] | | | | | | [address] | | | | | | [phone] | | | | | | | | +--------+ + + + + | 01/06/ | Office | Plastic Surgery | Kuldip Harrell MD | | | 2019 | Visit | | [address] | | | | | | [place], [place] | | | | | | [address] | | | | | | [phone] | | | | | | | | +--------+ + + + + documented as of this encounter Visit Diagnoses Not on filedocumented in this encounter"
--- OUTSIDE RECORDS SUMMARY | ~2019-11-17 | XMS | Encounter Summary ---
Demographics + + + | Address | [address] | | | [place] [address] | + + + | Home Phone [...] Team Providers + +------+ + | Care Sales Recruiting Coordinator Name | Role | Phone | [...] | | | | | [place], | | | | | | [place] [address] | | | +--------+--------+ + + + [...] | | | | uled | | [place], [place] | | | | | | [address] | | | | | | [phone] | | | | | | | | +--------+ + + + + | 12/01/ | Video/TeleH | Pain Management | Florencio Lockett, | | | 2019 | ealth-Sched | | PhD [address] | | | | uled | | [place], [place] | | | | | | [address] | | | | | | [phone] | | | | | | | | +--------+ + + + + | 01/06/ | Office | Plastic Surgery | Kuldip Harrell MD | | | 2020 | Visit | | [address] | | | | | | [place], [place] | | | | | | [address] | | | | | | [phone] | | | | | | | | +--------+ + + + + documented as of this encounter Visit Diagnoses Not on filedocumented in this encounter"
--- OUTSIDE RECORDS SUMMARY | ~2019-11-17 | XMS | Encounter Summary ---
Demographics + + + | Address | [address] | | | [place] [address] | + + + | Home Phone | | + + + | Preferred Language | Unknown | + + + | Marital Status | | + + + | Baptist Affiliation | Unknown | + + + | Race | Unknown | + + + | Ethnic Group | Unknown | + + + Author + + + | Author | [facility] | | | and [place] | + + + | Organization | [facility] | | | and [...] [place], | | | | | [place] [address] | | + + + + + Care Team Providers + +------+ + | Care Hadoop Analyst Name | Role | Phone | [...] Provider Unknown | | | | | [place], [place] | | | | | | [address] | (Fax) | | | | | [phone] | | | +--------+ + + + [...] | | 2019 | Visit | | [address] [place] [address] | | | | | | [place] | | | | | | [address] | | | | | | [phone] | | | | | | | | +--------+---------+ + + + | 12/01/ | Office | Cardiology | Nadege Chavez | | | 2019 | Visit | | [address] | | | | | | [address] | | | | | | [place] [address] | | | | | | [phone] | | | | | | | [...]
--- OUTSIDE RECORDS SUMMARY | ~2019-11-17 | XMS | Encounter Summary ---
Demographics + + + | Address | [address] | | | [place] [address] | + + + | Home Phone [...] Providers + +------+ + | Care Marketing Professor Name | Role | Phone | [...] | | | | | Monse Hernandez [place], | | | | | | [place] [address] | | | +--------+--------+ + + + [...] | | | uled | | [place], [place] | | | | | | [address] | | | | | | [phone] | | | | | | | | +--------+ + + + + | 12/01/ | Video/TeleH | Pain Management | Florencio Lockett, | | | 2019 | ealth-Sched | | PhD [address] | | | | uled | | [place], [place] | | | | | | [address] | | | | | | [phone] | | | | | | | | +--------+ + + + + | 01/06/ | Office | Plastic Surgery | Kuldip Harrell MD | | | 2020 | Visit | | [address] | | | | | | [place], [place] | | | | | | [address] | | | | | | [phone] | | | | | | | | +--------+ + + + + documented as of this encounter Visit Diagnoses Not on filedocumented in this encounter"
--- OUTSIDE RECORDS SUMMARY | ~2019-11-17 | XMS | Encounter Summary ---
Demographics + + + | Address | [address] | | | [place] [address] | + + + | Home Phone | | + + + | Preferred Language | Unknown | + + + | Marital Status | | + + + | Caodaism Affiliation | NRP | + + + [...] Providers + +------+ + | Care Senior Business Objects Developer Name | Role | Phone | + +------+ + | Alisha Stovall PA-C | PCP | | + +------+ + Encounter Details +--------+ + + + + | Date | Type | Department | Care Team | Description | +--------+ + + + + | 11/29/ | Inside | [facility] | Joe Watson ACNP | | | 2018 | Referral | [facility] [address] | | | | Order | [facility] [address] [place], | | | | | Health and Healing, | [place] [address] | | | | | [address] | [phone] | | | | | [place], [place] | | | | | | [address] | | | | | | [phone] | | | +--------+ + + + [...] | | | | uled | | [place], [place] | | | | | | [address] | | | | | | [phone] | | | | | | | | +--------+ + + + + | 12/01/ | Video/TeleH | Pain Management | Florencio Lockett, | | | 2019 | ealth-Sched | | PhD [address] | | | | uled | | [place], [place] | | | | | | [address] | | | | | | [phone] | | | | | | | | +--------+ + + + + | 01/06/ | Office | Plastic Surgery | Kuldip Harrell MD | | | 2019 | Visit | | [address] | | | | | | [place], [place] | | | | | | [address] | | | | | | [phone] | | | | | | | | +--------+ + + + + documented as of this encounter Results PH RETURN (01/11/2018 5:27 PM PDT) + + | Specimen | + + | | + + + +- + | Narrative | Performed At | + +- + | MRN: | [facility] | | [id number] Date: 01/12/2018Patient Name: Maria De Jesus Gonzalez #: | ENDOSCOPY | | [id number] of : 1990CSN: [id number] Type: | | | OutpatientRoom: Motility RoomProcedure: Ambulatory | | | esophageal pH and impedance monitoringIndications: | | | Heartburn, Suspected esophageal reflux, Follow-up of | | | esophageal refluxProviders: RUBEN STUBBS, | | | (Doctor), DONNELL DRAPER RN (Nurse)Referring MD: JOE | | | PETCU, ACNPRequesting Provider: Medicines: Lidocaine | | | [...] | | | + +---------+ + + ESOPHAGEAL MANOMETRY (01/11/2018 3:15 PM PDT) + + | Specimen | + + | | + + + +- + | Narrative | Performed At | + +- + | MRN: | [facility] | | [id number] Date: 01/11/2018Patient Name: Maria De Jesus StroderOrder #: | ENDOSCOPY | | [id number] of : 1990CSN: [id number] Type: | | | OutpatientRoom: Motility RoomProcedure: Ambulatory | | | esophageal pH and impedance monitoringIndications: | | | Heartburn, Suspected esophageal reflux, Follow-up of | | | esophageal refluxProviders: RUBEN STUBBS, | | | (Doctor), DONNELL DRAPER RN (Nurse)Referring MD: JOE | | | PETCU, ACNPRequesting Provider: Medicines: Lidocaine | | | [...]
--- OUTSIDE RECORDS SUMMARY | ~2019-11-17 | XMS | Encounter Summary ---
Demographics + + + | Address | [address] | | | [place] [address] | + + + | Home Phone [...] Team Providers + +------+ + | Care Forging Machine Operator Name | Role | Phone [...] | | | | CONSULT TO | [place], [place] | [place], [place] | | | | | PAIN | [address] | [address] | | | | | MANAGEMENT | Phone: | Phone: | | | | | [place] | [phone] | [phone] | | | | | BIOFEEDBACK | Fax: | Fax: | | | | | TRAINING,[place] | [phone] | [phone] | | | | | MODALITY | | | + +---------+ + + + + Encounter Details +--------+ + + + + | Date | Type | Department | Care Team | Description | +--------+ + + + + | 10/07/ | Video/TeleH | [facility] | Florencio Lockett, | Follow-up visit | | 2020 | ealth-Sched | [address] | PhD [address] | | | | uled | Center for Health | [place], [place] | | | | | and Healing, | [address] | | | | | [facility] | [phone] | | | | | Floor [place], [place] | | | | | | [address] | | | | | | [phone] | | | +--------+ + + + [...] encounter Progress Notes Florencio Lockett, PhD - 10/08/2019 10:50 AM PDTThe visit took place via secure, synchronous a udio and video technology with the provider virtually located at the distant site of [facility]. The patient stated they were located at the originating site of [place] and were in the [facility] at the time of the virtual visit. The names of all additional persons participatin g in the virtual visit and their roles are: Maria De Jesus Hernández, patient, Ran Lockett, provider. I have spent a total of 75 minutes on this patient's care today. This time includes the vi rtual visit gmmw-wy-hrmt time with the patient as well as time spent reviewing patient recor ds, coordinating/communicating with care teams and documenting the patient visit. INDIVIDUAL THERAPY PROGRESS NOTE: BARIATRIC FOLLOW-UP (INCLUDING DIET AND EXERCISE COUNSELING) Name: Maria De Jesus Hernández : 1990 Medical Record: [id number] Chief Complaint: Morbid obesity Date of Service: 10/08/2019 Maria De Jesus Anna is a 28 y.o. female who had bariatric surgery in 2019. She has been havin g difficulties since surgery and at time she regrets having surgery. She reported feeling n ausea daily. She reported that she has lost more that 150 lbs but she still feels like she is 400 lbs and needs to eat a large portion of food and finish the food on her plate. She r eported ups and downs in her adherence to recommendations. She is in mental health counseli 2 times per week but does not feel like she has been able to address her eating issues in counseling. She reported that she eats 2-3 times per day and then often snacks into the ev ening. She reported eating quickly and she drinks with her meals. She reported feeling that she needs to eat as quickly as she can so she gets her portion of the food. She understand s that there is not a shortage of food but she still eats quickly. We reviewed recommendati ons for eating habits after surgery. We discussed eating every 2-4 hours, slowing her eatin g, chewing more completely and drinking from eating. We discussed the reason fo r each of these recommendations. She reported that often she gets distracted and forgets to eat and then she tends to overeat and eat too quickly. We discussed setting a schedule for eating and then to eat on time as a preventive measure to keep from overeating later. We d iscussed planning 20 minutes for eating and planning to chew each bite much longer, and not have a beverage at the table. We discussed self-talk and she reported a lot of negative nano f-talk. We discussed shifting to positive self-talk and positive affirmations which is some thing her local counselor has been urging her to do for mood management. We decided to sche dule ongoing follow-up visits. Maria De Jesus Hernández was alert and [...] mood, activity, adherence to recommendations. Ask about eating slowly, eating on schedule, chewing completely and drinking from eating. Ask about positive self-talk and affirmations. Discuss lifestyle balance, adaptation, self- identity, neuroplasticity. Continue cognitive-behavioral therapy. Florencio Lockett, PhD [facility] [address] Mailcode: [address] [address] documented in this en counter Plan of Treatment +--------+ + + + + | Date | Type | Specialty | Care Team | Description | +--------+ + + + + | 11/17/ | Video/TeleH | Pain Management | Florencio Lockett, | | | 2019 | ealth-Sched | | PhD [address] | | | | uled | | [place], [place] | | | | | | [address] | | | | | | [phone] | | | | | | | | +--------+ + + + + | 12/01/ | Video/TeleH | Pain Management | Florencio oLckett, | | 2019 | ealth-Sched | | PhD [address] | | | | uled | | [place], [place] | | | | | | [address] | | | | | | [phone] | | | | | | | | +--------+ + + + + | 01/06/ | Office | Plastic Surgery | Kuldip Harrell MD | | | 2020 | Visit | | [address] | | | | | | [place], [place] | | | | | | [address] | | | | | | [phone] | | | | | | | [...] oral medication (HCC) | + + | Sleep apnea, unspecified type | + + | S/P gastric bypass Bariatric surgery status | + + | Nausea with dry heaving Nausea alone | + + documented in this encounter"
--- OUTSIDE RECORDS SUMMARY | ~2019-11-17 | XMS | Encounter Summary ---
Demographics + + + | Address | [address] | | | [place] [address] | + + + | Home Phone [...] Team Providers + +------+ + | Care Transportation Security Officer Name | Role | Phone | + +------+ + | Alisha Stovall PA-C | PCP | | + +------+ + Encounter Details +--------+------+ + + + | Date | Type | Department | Care Team | Description | +--------+------+ + + + | 11/10/ | Lab | Laboratory at [facility] | | Morbid obesity | | 2017 | | [address] | | ([facility]); Diabetes | | | | [facility] | | mellitus treated | | | | and Healing, | | with oral medication | | | | [address] | | ([facility]); | | | | [place], [place] | | Hypertension, | | | | [address] | | unspecified type; | | | | [phone] | | Asthma, unspecified | | | [...] | | | | uled | | [place], [place] | | | | | | [address] | | | | | | [phone] | | | | | | | | +--------+ + + + + | 12/01/ | Video/TeleH | Pain Management | Florencio Lockett, | | | 2019 | ealth-Sched | | PhD [address] | | | | uled | | [place], [place] | | | | | | [address] | | | | | | [phone] | | | | | | | | +--------+ + + + + | 01/06/ | Office | Plastic Surgery | Kuldip Harrell MD | | | 2020 | Visit | | [address] | | | | | | [place], [place] | | | | | | [address] | | | | | | [phone] | | | | | | | [...] medication | | | | | | ([facility]) | | | | | | Hypertension, [...] | | e | 2:57 PM | ([facility]) Diabetes | procedure are in the | | | | PDT | mellitus treated | results section. | | | | | with oral medication | | | | | | ([facility]) | | | | | | Hypertension, [...] | | e | 2:57 PM | ([facility]) Diabetes | procedure are in the | | | | PDT | mellitus treated | results section. | | | | | with oral medication | | | | | | ([facility]) | | | | | | Hypertension, [...] | | e | 2:57 PM | ([facility]) Diabetes | procedure are in the | | | | PDT | mellitus treated | results section. | | | | | with oral medication | | | | | | ([facility]) | | | | | | Hypertension, [...] + + documented in this encounter Results IRON AND TIBC (11/10/2017 2:57 PM PDT) [...] [facility] | [address] | [place] [address] | | | SERVICES, CORE | SAMMI [...] [facility] | [address] | [place] [address] | | | SERVICES, CORE | PARK [...] [facility] | [address] | [place] [address] | | | SERVICES, CORE | PARK [...] + + | [facility] | [address] | [place] [address] | | | SERVICES, CORE | PARK [...] + + | New Reference Range effective 04-13-. | [facility] | | | LABORATORY | | | SERVICES, CORE | + + + + + + + + | Performing | Address | City/State/Zipcode | Phone Number | | Organization | | | | + + + + + | [facility] | [address] | [place] [address] | | | SERVICES, ADONAY | SAMMI [...]
--- OUTSIDE RECORDS SUMMARY | ~2019-11-17 | XMS | Encounter Summary ---
Demographics + + + | Address | [address] | | | [place] [address] | + + + | Home Phone [...] Team Providers + +------+ + | Care Fleet Mechanic Name | Role | Phone | + +------+ + | Alisha Stovall PA-C | PCP | | + +------+ + Encounter Details +--------+------+ + + + | Date | Type | Department | Care Team | Description | +--------+------+ + + + | 08/10/ | Lab | Laboratory at [facility] | | Preop testing | | 2019 | | [address] | | | | | | [place] [facility] | | | | | | and Healing, | | | | | | [address] | | | | | | [place], [place] | | | | | | [address] | | | | | | [phone] | | | +--------+------+ + + + [...] | | | | uled | | [place], [place] | | | | | | [address] | | | | | | [phone] | | | | | | | | +--------+ + + + + | 12/01/ | Video/TeleH | Pain Management | Florencio Lockett, | | | 2019 | ealth-Sched | | PhD [address] | | | | uled | | [place], [place] | | | | | | [address] | | | | | | [phone] | | | | | | | | +--------+ + + + + | 01/06/ | Office | Plastic Surgery | Kuldip Harrell MD | | | 2019 | Visit | | [address] | | | | | | [place], [place] | | | | | | [address] | | | | | | [phone] | | | | | | | [...] | + + + + + | [facility] | [address] | [place] [address] | | | SERVICES, CORE | PARK [...] | | | | | determined by [facility] | | | | | | Laboratories. See | | | | | | Compliance Statement B: | | | | | | [email or web address]/CSPerformed | | | | | | by [facility],[address] | | | | | | Francisca Riley [facility] | | | | | | [address] | | | | | | [phone].[employer]. | | | | | | comJosué MD, | | | | | | Lab. Director | | | | + + + + + + | COTININE | <2 | ng/mL | [facility] | | | | | | REG [...] [facility] | [address] | [place], [place] | | | [facility] | | [address] | | + + + + + documented in this encounter Visit Diagnoses + + | Diagnosis | + + | Preop testing Preoperative examination, unspecified | + + documented in this encounter"
--- OUTSIDE RECORDS SUMMARY | ~2019-11-17 | XMS | Encounter Summary ---
Demographics + + + | Address | [address] | | | [place] [address] | + + + | Home Phone [...] Team Providers + +------+ + | Care Benefits Specialist Recruiter Name | Role | Phone | + [...] Outside Records | | 2019 | | [place] at [facility] [address] | [address] | Received | | | | [address] [place] | [facility] [place] | | | | | for Health and | [address] | | | | | [facility] 2 | [phone] | | | | | [place], [place] | | | | | | [address] | | | | | | | [...] | | | | ray | | [facility] [place] | | | | | | [address] | | | | | | [phone] | | | | | | | | +--------+ + + + + | 12/01/ | Video/TeleH | Pain Management | Florencio Lockett, | | | 2019 | ealth-Sched | | PhD [address] | | | | uled | | [place], [place] | | | | | | [address] | | | | | | [phone] | | | | | | | | +--------+ + + + + | 01/06/ | Office | Plastic Surgery | Kuldip Harrell MD | | | 2019 | Visit | | [address] | | | | | | [place], [place] | | | | | | [address] | | | | | | [phone] | | | | | | | | +--------+ + + + + documented as of this encounter Visit Diagnoses Not on filedocumented in this encounter"
--- OUTSIDE RECORDS SUMMARY | ~2019-11-17 | XMS | Encounter Summary ---
Demographics + + + | Address | [address] | | | [place] [address] | + + + | Home Phone [...] Team Providers + +------+ + | Care Independent Consultant Name | Role | Phone | [...] | | 2019 | | Center at [facility] [address] | MD [address] | | | | | [address] | [place], [place] | | | | | for Health and | [address] | | | | | Healing, [address] | | | | | | [place], [place] | | | | | | [address] | | | | | | | [...] Florencio Lockett, | | | 2020 | ealth-[facility] | | PhD [address] | | | | uled | | [place], [place] | | | | | | [address] | | | | | | [phone] | | | | | | | | +--------+ + + + + | 08/10/ | Video/TeleH | Pain Management | Florencio Lockett G, | | | 2019 | ealth-Sched | | PhD [address] | | | | uled | | [place], [place] | | | | | | [address] | | | | | | [phone] | | | | | | | | +--------+ + + + + | 01/06/ | Office | Plastic Surgery | Kuldip Harrell MD | | | 2019 | Visit | | [address] | | | | | | [place], [place] | | | | | | [address] | | | | | | [phone] | | | | | | | | +--------+ + + + + documented as of this encounter Visit Diagnoses Not on filedocumented in this encounter"
--- OUTSIDE RECORDS SUMMARY | ~2019-11-17 | XMS | Encounter Summary ---
Demographics + + + | Address | [address] | | | [place] [address] | + + + | Home Phone [...] Team Providers + +------+ + | Care Glass Etcher Name | Role | Phone | + [...] | 2020 | Encounter | Center at [facility] [address] | | Visit. | | | | [facility] | | | | | | for Health and | | | | | | Healing, [address] | | | | | | [place], [place] | | | | | | [address] | | | | | | [phone] | | | +--------+ + + + [...] | | | | uled | | [place], [place] | | | | | | [address] | | | | | | [phone] | | | | | | | | +--------+ + + + + | 12/01/ | Video/TeleH | Pain Management | Florencio Lockett, | | | 2019 | ealth-Sched | | PhD [address] | | | | uled | | [place], [place] | | | | | | [address] | | | | | | [phone] | | | | | | | | +--------+ + + + + | 01/06/ | Office | Plastic Surgery | Kuldip Harrell MD | | | 2020 | Visit | | [address] | | | | | | [place] | | | | | | [address] | | | | | | [phone] | | | | | | | | +--------+ + + + + documented as of this encounter Visit Diagnoses Not on filedocumented in this encounter"
--- OUTSIDE RECORDS SUMMARY | ~2019-11-17 | XMS | Encounter Summary ---
Demographics + + + | Address | [address] | | | [place] [address] | + + + | Home Phone [...] Team Providers + +------+ + | Care Workplace Relations Adviser Name | Role | Phone | + [...] | | | | uljeancarlos | | [place], [place] | | | | | | [address] | | | | | | [phone] | | | | | | | | +--------+ + + + + | 12/01/ | Video/TeleH | Pain Management | Florencio Lockett, | | | 2019 | ealth-Sched | | PhD [address] | | | | uled | | [place], [place] | | | | | | [address] | | | | | | [phone] | | | | | | | | +--------+ + + + + | 01/06/ | Office | Plastic Surgery | Kuldip Harrell MD | | | 2019 | Visit | | [address] | | | | | | [place], [place] | | | | | | [address] | | | | | | [phone] | | | | | | | | +--------+ + + + + documented as of this encounter Visit Diagnoses Not on filedocumented in this encounter"
--- OUTSIDE RECORDS SUMMARY | ~2019-11-17 | XMS | Encounter Summary ---
Demographics + + + | Address | [address] | | | [place] [address] | + + + | Home Phone [...] Team Providers + +------+ + | Care Auto Porter Name | Role | Phone | + +------+ + | Alisha Stovall PA-C | PCP | | + +------+ + Encounter Details +--------+ + + + + | Date | Type | Department | Care Team | Description | +--------+ + + + + | 05/03/ | Hospital | Radiology/Imaging | Kenan Norton, | | | 2019 | Encounter | Lab at [facility] [address] | MD [address] | | | | | [address] [facility] for | [facility] [place] | | | | | Health and Healing, | [address] | | | | | [address] | [phone] | | | | | Floor [place], [place] | | | | | | [address] | | | | | | [phone] | | | +--------+ + + + [...] | | | | uled | | [place], [place] | | | | | | [address] | | | | | | [phone] | | | | | | | | +--------+ + + + + | 12/01/ | Video/TeleH | Pain Management | Florencio Lockett, | | | 2019 | ealth-Sched | | PhD [address] | | | | uled | | [place], [place] | | | | | | [address] | | | | | | [phone] | | | | | | | | +--------+ + + + + | 01/06/ | Office | Plastic Surgery | Kuldip Harrell MD | | | 2019 | Visit | | [address] | | | | | | [place], [place] | | | | | | [address] | | | | | | [phone] | | | | | | | | +--------+ + + + + documented as of this encounter Procedures + +--------+ + + + | Procedure Name | Priori | Date/Time | Associated Diagnosis | Comments | | | ty | | | | + +--------+ + + + | X-RAY UGI W SMALL | Routin | 05/03/2019 | S/P gastric bypass | Results for this | | BOWEL W MX SERIAL | e | 2:50 PM | | procedure are in the | | | | PST | | results section. | + +--------+ + + + documented in this encounter Results X-RAY UGI W SMALL [...] images. Fluoro Time: 60 sec FINDINGS: Initial medical concierge | | | radiograph demonstrates surgical sutures [...] Note | + + | Service Account, iSpy[employer] In Interface - 05/03/2019 5:32 PM PST [...] Time: 60 sec | | FINDINGS: Initial medical concierge radiograph demonstrates surgical sutures over the left [...]
--- OUTSIDE RECORDS SUMMARY | ~2019-11-17 | XMS | Encounter Summary ---
Demographics + + + | Address | [address] | | | [place] [address] | + + + | Home Phone [...] Team Providers + +------+ + | Care Core Shaper Top Name | Role | Phone | + +------+ + | Alisha Stovall PA-C | PCP | | + +------+ + Encounter Details +--------+ + + + + | Date | Type | Department | Care Team | Description | +--------+ + + + + | 10/06/ | Pharmacy | Outpatient Retail | | | | 2019 | Visit | [facility] | | | | | | [address] | | | | | | [place], [place] | | | | | | [address] | | | | | | [phone] | | | +--------+ + + + [...] | | | | uled | | [place], [place] | | | | | | [address] | | | | | | [phone] | | | | | | | | +--------+ + + + + | 12/01/ | Video/TeleH | Pain Management | Florencio Lockett, | | | 2019 | ealth-Sched | | PhD [address] | | | | uled | | [place], [place] | | | | | | [address] | | | | | | [phone] | | | | | | | | +--------+ + + + + | 01/06/ | Office | Plastic Surgery | Kuldip Harrell MD | | | 2019 | Visit | | [address] | | | | | | [place] | | | | | | [address] | | | | | | [phone] | | | | | | | | +--------+ + + + + documented as of this encounter Visit Diagnoses Not on filedocumented in this encounter"
--- OUTSIDE RECORDS SUMMARY | ~2019-11-17 | XMS | Encounter Summary ---
Demographics + + + | Address | [address] | | | [place] [address] | + + + | Home Phone [...] Team Providers + +------+ + | Care Turf Sales Person Name | Role | Phone | [...] Pharmacy | | | | | | [address] | | | | | | [place], [place] | | | | | | [address] | | | | | | [phone] | | | +--------+ + + + [...] | | | | uled | | [place], [place] | | | | | | [address] | | | | | | [phone] | | | | | | | | +--------+ + + + + | 12/01/ | Video/TeleH | Pain Management | Florencio Lockett, | | | 2019 | ealth-Sched | | PhD [address] | | | | uled | | [place], [place] | | | | | | [address] | | | | | | [phone] | | | | | | | | +--------+ + + + + | 01/06/ | Office | Plastic Surgery | Kuldip Harrell MD | | | 2019 | Visit | | [address] | | | | | | [place] | | | | | | [address] | | | | | | [phone] | | | | | | | | +--------+ + + + + documented as of this encounter Visit Diagnoses Not on filedocumented in this encounter"
--- OUTSIDE RECORDS SUMMARY | ~2019-11-17 | XMS | Encounter Summary ---
Demographics + + + | Address | [address] | | | [place] [address] | + + + | Home Phone [...] Team Providers + +------+ + | Care Chief Counsel Name | Role | Phone | + [...] | 2018 | Encounter | Preventive at [facility] | SHANICE Villafuerte [address] | | | | | [address] | [address] [place], | | | | | [place] for [facility] | [place] [address] | | | | | and Healing, | [phone] | | | | | [address] | | | | | | [place], [place] | | | | | | [address] | | | | | | [phone] | | | +--------+ + + + [...] | | | | uled | | [place], [place] | | | | | | [address] | | | | | | [phone] | | | | | | | | +--------+ + + + + | 12/01/ | Video/TeleH | Pain Management | Florencio Lockett, | | | 2019 | ealth-Sched | | PhD [address] | | | | uled | | [place], [place] | | | | | | [address] | | | | | | [phone] | | | | | | | | +--------+ + + + + | 01/06/ | Office | Plastic Surgery | Kuldip Harrell MD | | | 2020 | Visit | | [address] | | | | | | [place] | | | | | | [address] | | | | | | [phone] | | | | | | | | +--------+ + + + + documented as of this encounter Visit Diagnoses Not on filedocumented in this encounter"
--- OUTSIDE RECORDS SUMMARY | ~2019-11-17 | XMS | Encounter Summary ---
Demographics + + + | Address | [address] | | | [place] [address] | + + + | Home Phone [...] Team Providers + +------+ + | Care Lithographic Press Feeder Name | Role | Phone | + +------+ + | Alisha Stovall PA-C | PCP | | + +------+ + Reason for Visit + + + | Reason | Comments | + + + | Appointment | follow up visit with Cierra PANG | + + + Encounter Details +--------+ + + + + | Date | Type | Department | Care Team | Description | +--------+ + + + + | 04/15/ | Telephone | Digestive Health | Clinic, Surgery | Appointment (follow | | 2018 | | Center at [facility] 1987 | | up visit with Cierra | | | | [address] [facility] | | after UGI) | | | | for Health and | | | | | | [facility] 2 | | | | | | [place], [place] | | | | | | [address] | | | | | | [phone] | | | +--------+ + + + [...] | | | | ray | | [place], [place] | | | | | | [address] | | | | | | [phone] | | | | | | | | +--------+ + + + + | 12/01/ | Video/TeleH | Pain Management | Florencio Lockett, | | | 2019 | ealth-Sched | | PhD [address] | | | | uled | | [place], [place] | | | | | | [address] | | | | | | [phone] | | | | | | | | +--------+ + + + + | 01/06/ | Office | Plastic Surgery | Kuldip Harrell MD | | | 2019 | Visit | | [address] | | | | | | [place], [place] | | | | | | [address] | | | | | | [phone] | | | | | | | | +--------+ + + + + documented as of this encounter Visit Diagnoses Not on filedocumented in this encounter"
--- OUTSIDE RECORDS SUMMARY | ~2019-11-17 | XMS | Encounter Summary ---
Demographics + + + | Address | [address] | | | [place] [address] | + + + | Home Phone [...] Team Providers + +------+ + | Care Small Business Sales Representative Name | Role | Phone | [...] | | | Surg [facility] | [facility] [address] | | | | | | [address] | | | | | | Ave Center | Center for | | | | | | for Health | Health and | | | | | | and Healing, | Healing, | | | | | | Building 2 | [address] 2 | | | | | | [place], | [place], [place] | | | | | | [place] | [address] | | | | | | [address] | Phone: | | | | | | Phone: | [phone] | | | | | | [phone] | Fax: | | | | | | Fax: | [phone] | | | | | | [phone] | | +--------+--------+ + + + + [...] | | [address] | [place], [place] | obesity (HCC) | | | | for Health and | [address] | | | | | [facility] 2 | [phone] | | | | | [place], [place] | | | | | | [address] | | | | | | [phone] | | | +--------+---------+ + + + [...] of visit: 1:08 to 1:35 (27 minutes [id number] with patient) Surgery: Gastric Bypassand Cholecystectomy Date [...] multivitamin & mineral (with iron) supplement, 2/day -0042-5987 mg calcium citrate with vitamin D/day (take in divided doses, not within 2 hour s of multivitamin or iron supplement) -500 mcg/day sublingual B12 supplement (or monthly injections) Continued to reinforce importance of mindful eating. Continue to increase physical activity. Follow up in 3 mo. Katheryn Perdomo, MS, RDN, CSOWM, LD, CDE [facility] Bariatrics [phone] documented in this e ncounter Plan of Treatment +--------+ + + + + | Date | Type | Specialty | Care Team | Description | +--------+ + + + + | 11/17/ | Video/TeleH | Pain Management | Florencio Lockett, | | | 2019 | ealth-Sched | | PhD [address] | | | | uled | | [place], [place] | | | | | | [address] | | | | | | [phone] | | | | | | | | +--------+ + + + + | 12/01/ | Video/TeleH | Pain Management | Florencio Lockett, | | | 2019 | ealth-Sched | | PhD [address] | | | | uled | | [place], [place] | | | | | | [address] | | | | | | [phone] | | | | | | | | +--------+ + + + + | 01/06/ | Office | Plastic Surgery | Kuldip Harrell MD | | | 2019 | Visit | | [address] | | | | | | [place], [place] | | | | | | [address] | | | | | | [phone] | | | | | | | | +--------+ + + + + documented as of this encounter Procedures + +--------+ + + + | Procedure Name | Priori | Date/Time | Associated Diagnosis | Comments | | | ty | | | | + +--------+ + + + | ID MNT RE-ASSESSMNT | Routin | 12/21/2018 | S/P gastric bypass | | | X15MIN | e | 1:38 PM | Morbid obesity | | | | | PDT | ([facility]) | | + +--------+ + + + documented in this encounter Visit Diagnoses + + | Diagnosis | + + | S/P gastric bypass - Primary Bariatric surgery status | + + | Morbid obesity (HCC) Morbid obesity | + + documented in this encounter
--- OUTSIDE RECORDS SUMMARY | ~2019-11-17 | XMS | Encounter Summary ---
Demographics + + + | Address | [address] | | | [place] [address] | + + + | Home Phone [...] Team Providers + +------+ + | Care President & [employer] Name | Role | Phone | + +------+ + | Alisha Stovall PA-C | PCP | | + +------+ + Encounter Details +--------+ + + + + | Date | Type | Department | Care Team | Description | +--------+ + + + + | 09/11/ | Abstract | Digestive Health | Kenan Norton, | | | 2019 | | Center at [facility] [address] | MD [address] | | | | | [address] [place] | [facility] [place] | | | | | for Health and | [address] | | | | | [place], [address] | [phone] | | | | | [place], [place] | | | | | | [address] | | | | | | [phone] | | | +--------+ + + + [...] | | | | uled | | [place], [place] | | | | | | [address] | | | | | | [phone] | | | | | | | | +--------+ + + + + | 12/01/ | Video/TeleH | Pain Management | Florencio Lockett, | | | 2019 | ealth-Sched | | PhD [address] | | | | uled | | [place], [place] | | | | | | [address] | | | | | | [phone] | | | | | | | | +--------+ + + + + | 01/06/ | Office | Plastic Surgery | Kuldip Harrell MD | | | 2020 | Visit | | [address] | | | | | | [place], [place] | | | | | | [address] | | | | | | [phone] | | | | | | | | +--------+ + + + + documented as of this encounter Visit Diagnoses Not on filedocumented in this encounter"
--- OUTSIDE RECORDS SUMMARY | ~2019-11-17 | XMS | Encounter Summary ---
Demographics + + + | Address | [address] | | | [place] [address] | + + + | Home Phone [...] Providers + +------+ + | Care Frame Cleaner Name | Role | Phone | + +------+ + | Alisha Stovall PA-C | PCP | | + +------+ + Encounter Details +--------+ + + + + | Date | Type | Department | Care Team | Description | +--------+ + + + + | 09/01/ | Outside | UNKNOWN DEPARTMENT | Other, Faculty | | | 2017 | Records | [address] [facility] | [phone] | | | | | [address] | | | | | | [place], [place] | | | | | | [address] | | | +--------+ + + + [...] | Video/TeleH | Pain Management | Floerncio Lockett G, | | | 2020 | ealth-Jody | | PhD [address] | | | | ray | | [place], [place] | | | | | | [address] | | | | | | [phone] | | | | | | | | +--------+ + + + + | 12/01/ | Video/TeleH | Pain Management | Florencio Lockett G, | | | 2019 | ealth-Sched | | PhD [address] | | | | uled | | [place], [place] | | | | | | [address] | | | | | | [phone] | | | | | | | | +--------+ + + + + | 01/06/ | Office | Plastic Surgery | Kuldip Harrell MD | | | 2019 | Visit | | [address] | | | | | | [place], [place] | | | | | | [address] | | | | | | [phone] | | | | | | | | +--------+ + + + + documented as of this encounter Procedures + +--------+ + + + | Procedure Name | Priori | Date/Time | Associated Diagnosis | Comments | | | ty | | | | + +--------+ + + + | OUTSIDE RADIOLOGY - | | 09/01/2017 | | Results for this | | CT | | 12:00 AM | | procedure are in the | | | | PDT | | results section. | + +--------+ + + + documented in this encounter Results OUTSIDE RADIOLOGY - CT (09/01/2017 12:00 AM PDT) + + + | Narrative | Performed At | + + + | | | + + + documented in this encounter Visit Diagnoses Not on filedocumented in this encounter"
--- OUTSIDE RECORDS SUMMARY | ~2019-11-17 | XMS | Encounter Summary ---
Demographics + + + | Address | [address] | | | [place] [address] | + + + | Home Phone | | + + + | Preferred Language | Unknown | + + + | Marital Status | | + + + | Holiness Affiliation | NRP | + + + [...] Team Providers + +------+ + | Care Campaign Management Senior Manager Name | Role | Phone | + +------+ + | Alisha Stovall PA-C | PCP | | + +------+ + Reason for Visit + + + | Reason | Comments | + + + | Refill Request | simethicone | + + + Encounter Details +--------+--------+ + + + | Date | Type | Department | Care Team | Description | +--------+--------+ + + + | 09/11/ | Refill | Digestive Health | Kenan Norton, | Refill Request | | 2020 | | [place] at [facility] [address] | MD [address] | (simethicone ) | | | | [address] | [place], [place] | | | | | for Health and | [address] | | | | | [facility] 2 | | | | | | [place], [place] | | | | | | [address] | | | | | | | [...] | | | | uljeancarlos | | [facility] [place] | | | | | | [address] | | | | | | [phone] | | | | | | | | +--------+ + + + + | 12/01/ | Video/TeleH | Pain Management | Florencio Lockett, | | | 2019 | ealth-Sched | | PhD [address] | | | | uled | | [place], [place] | | | | | | [address] | | | | | | [phone] | | | | | | | | +--------+ + + + + | 01/06/ | Office | Plastic Surgery | Kuldip Harrell MD | | | 2019 | Visit | | [address] | | | | | | [place], [place] | | | | | | [address] | | | | | | [phone] | | | | | | | | +--------+ + + + + documented as of this encounter Visit Diagnoses + + | Diagnosis | + + | Morbid obesity (HCC) Morbid obesity | + + documented in this encounter"
--- OUTSIDE RECORDS SUMMARY | ~2019-11-17 | XMS | Encounter Summary ---
Demographics + + + | Address | [address] | | | [place] [address] | + + + | Home Phone | | + + + | Preferred Language | Unknown | + + + | Marital Status | | + + + | Adventism Affiliation | Unknown | + + + | Race | Unknown | + + + | Ethnic Group | Unknown | + + + Author + + + | Author | [facility] | | | and [place] | + + + | Organization | [facility] | | | [...] [place], | | | | | [place] [address] | | + + + + + Care Team Providers + +------+ + | Care Shirring Tender Name | Role | Phone | [...] | Results | | 2019 | | [facility] | MD [address] | | | | | CLIN[address] | [place] | | | | | [address], | [place] [address] | | | | | [place] [address] | [phone] | | | | | [phone] | | | +--------+ + + + [...] [place] | | | | | | [address] | | | | | | [phone] | | | | | | | | +--------+---------+ + + + | 12/01/ | Office | Cardiology | Nadege Chavez | | | 2019 | Visit | | [address] | | | | | | [address] | | | | | | [place] [address] | | | | | | [phone] | | | | | | | | +--------+---------+ + + + documented as of this encounter Visit Diagnoses Not on filedocumented in this encounter"
--- OUTSIDE RECORDS SUMMARY | ~2019-11-17 | XMS | Encounter Summary ---
Demographics + + + | Address | [address] | | | [place] [address] | + + + | Home Phone [...] Providers + +------+ + | Care Site Supervisor Name | Role | Phone | [...] | | [address] | [place], [place] | | | | | for Health and | [address] | | | | | Healing, Building 2 | | | | | | [place], [place] | | | | | | [address] | | | | | | | [...] | | | | ray | | [facility] [place] | | | | | | [address] | | | | | | [phone] | | | | | | | | +--------+ + + + + | 12/01/ | Video/TeleH | Pain Management | Florencio Lockett G, | | | 2019 | ealth-Sched | | PhD [address] | | | | uled | | [place], [place] | | | | | | [address] | | | | | | [phone] | | | | | | | | +--------+ + + + + | 01/06/ | Office | Plastic Surgery | Kuldip Harrell MD | | | 2019 | Visit | | [address] | | | | | | [place], [place] | | | | | | [address] | | | | | | [phone] | | | | | | | | +--------+ + + + + documented as of this encounter Visit Diagnoses Not on filedocumented in this encounter"
--- OUTSIDE RECORDS SUMMARY | ~2019-11-17 | XMS | Encounter Summary ---
Demographics + + + | Address | [address] | | | [place] [address] | + + + | Home Phone [...] Team Providers + +------+ + | Care Performance Solutions Specialist Name | Role | Phone [...] | | 2019 | | Center at [facility] [address] | MD [address] | | | | | [address] [place] | [place], [place] | | | | | [facility] Health and | [address] | | | | | a[address]li, Building [address] | [phone] | | | | | [place], [place] | | | | | | [address] | | | | | | [phone] | | | +--------+ + + + [...] | | | | uled | | [place], [place] | | | | | | [address] | | | | | | [phone] | | | | | | | | +--------+ + + + + | 12/01/ | Video/TeleH | Pain Management | Florencio Lockett, | | | 2019 | ealth-Sched | | PhD [address] | | | | uled | | [place], [place] | | | | | | [address] | | | | | | [phone] | | | | | | | | +--------+ + + + + | 01/06/ | Office | Plastic Surgery | Kuldip Harrell MD | | | 2020 | Visit | | [address] | | | | | | [place], [place] | | | | | | [address] | | | | | | [phone] | | | | | | | | +--------+ + + + + documented as of this encounter Visit Diagnoses Not on filedocumented in this encounter"
--- OUTSIDE RECORDS SUMMARY | ~2019-11-17 | XMS | Encounter Summary ---
Demographics + + + | Address | [address] | | | [place] [address] | + + + | Home Phone [...] Team Providers + +------+ + | Care Sleeve Wheel Maker Name | Role | Phone | [...] Pharmacy | | | | | | [address] | | | | | | [place], [place] | | | | | | [address] | | | | | | [phone] | | | +--------+ + + + [...] | | | | uled | | [place], [place] | | | | | | [address] | | | | | | [phone] | | | | | | | | +--------+ + + + + | 12/01/ | Video/TeleH | Pain Management | Florencio Lockett, | | | 2019 | ealth-Sched | | PhD [address] | | | | uled | | [place], [place] | | | | | | [address] | | | | | | [phone] | | | | | | | | +--------+ + + + + | 01/06/ | Office | Plastic Surgery | Kuldip Harrell MD | | | 2019 | Visit | | [address] | | | | | | [place] | | | | | | [address] | | | | | | [phone] | | | | | | | | +--------+ + + + + documented as of this encounter Visit Diagnoses Not on filedocumented in this encounter"
--- OUTSIDE RECORDS SUMMARY | ~2019-11-17 | XMS | Encounter Summary ---
Demographics + + + | Address | [address] | | | [place] [address] | + + + | Home Phone [...] Providers + +------+ + | Care Digital Specialist Name | Role | Phone | + +------+ + | Alisha Stovall PA-C | PCP | | + +------+ + Encounter Details +--------+ + + + + | Date | Type | Department | Care Team | Description | +--------+ + + + + | 10/03/ | Pharmacy | Outpatient Retail | | | | 2020 | Visit | Clinic Pharm[facility] | | | | | | [address] | | | | | | [place], [place] | | | | | | [address] | | | | | | [phone] | | | +--------+ + + + [...] | | | | uled | | [place], [place] | | | | | | [address] | | | | | | [phone] | | | | | | | | +--------+ + + + + | 12/01/ | Video/TeleH | Pain Management | Florencio Lockett, | | | 2019 | ealth-Sched | | PhD [address] | | | | uled | | [place], [place] | | | | | | [address] | | | | | | [phone] | | | | | | | | +--------+ + + + + | 01/06/ | Office | Plastic Surgery | Kuldip Harrell MD | | | 2019 | Visit | | [address] | | | | | | [place] | | | | | | [address] | | | | | | [phone] | | | | | | | | +--------+ + + + + documented as of this encounter Visit Diagnoses Not on filedocumented in this encounter"
--- OUTSIDE RECORDS SUMMARY | ~2019-11-17 | XMS | Encounter Summary ---
Demographics + + + | Address | [address] | | | [place] [address] | + + + | Home Phone [...] Team Providers + +------+ + | Care Control Valve Technician Name | Role | Phone | [...] | | | Surg Chh2 | Chh2 [address] | | | | | | [address] | | | | | | Ave Center | Center for | | | | | | for Health | Health and | | | | | | and Healing, | Healing, | | | | | | Building 2 | Building 2 | | | | | | [place], | [place], [place] | | | | | | [place] | [address] | | | | | | [address] | Phone: | | | | | | Phone: | [phone] | | | | | | [phone] | Fax: | | | | | | Fax: | [phone] | | | | | | [phone] | | +--------+--------+ + + + + Encounter Details +--------+---------+ + + + | Date | Type | Department | Care Team | Description | +--------+---------+ + + + | 10/13/ | Office | Digestive Health | Lisa Medina RD | Morbid obesity (HCC) | | 2018 | Visit | Center at [facility] [address] | [address] | (Primary Dx); | | | | [address] | [facility], | Diabetes mellitus | | | | for Health and | [place] [address] | treated with oral | | | | [facility] 2 | [phone] | medication (HCC) | | | | [place], [place] | | | | | | [address] | | | | | | [phone] | | | +--------+---------+ + + + [...] of Visit: 2:08 until 3:28 (80 minutes gffv-bv-jwio with patient) SUBJECTIVE: Pt comes in with her and support dog from [employer]. Patient viewed online seminar prior to visit. 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 Around current weight [...] mass index is 54.39 kg/m .. Seeing CAR SHIFTER next month, discussed 10% weight loss goal. [...] 2 pre-surgery classes. 4. Call or send Fos[employer] message to dietitian with any questions. Contact information was provided. Follow up with dietitian 1-2 weeks after surgery at first post-op visit. Lisa Medina RD, [facility] Bariatrics [phone] documented in this enco unter Plan of Treatment +--------+ + + + + | Date | Type | Specialty | Care Team | Description | +--------+ + + + + | 11/17/ | Video/TeleH | Pain Management | Florencio Lockett, | | | 2019 | ealth-Sched | | PhD [address] | | | | ray | | [place], [place] | | | | | | [address] | | | | | | [phone] | | | | | | | | +--------+ + + + + | 12/01/ | Video/TeleH | Pain Management | Florencio Lockett, | | | 2020 | ealth-Sched | | PhD [address] | | | | uled | | [place], [place] | | | | | | [address] | | | | | | [phone] | | | | | | | | +--------+ + + + + | 01/06/ | Office | Plastic Surgery | Kuldip Harrell MD | | | 2020 | Visit | | [address] | | | | | | [place], [place] | | | | | | [address] | | | | | | [phone] | | | | | | | | +--------+ + + + + documented as of this encounter Procedures + +--------+ + + + | Procedure Name | Priori | Date/Time | Associated Diagnosis | Comments | | | ty | | | | + +--------+ + + + | CT MNT INITIAL | Routin | 10/13/2017 | Morbid obesity | | | ASSESSMNT X15MIN | e | 4:12 PM | ([facility]) Diabetes | | | | | PDT | mellitus treated | | | | | | with oral medication | | | | | | ([facility]) | | + +--------+ + + + documented in this encounter Visit Diagnoses + + | Diagnosis | + + | Morbid obesity (HCC) - Primary Morbid obesity | + + | Diabetes mellitus treated with oral medication ([facility]) | + + documented in this encounter"
--- OUTSIDE RECORDS SUMMARY | ~2019-11-17 | XMS | Encounter Summary ---
Demographics + + + | Address | [address] | | | [place] [address] | + + + | Home Phone [...] Team Providers + +------+ + | Care Psychiatric Therapist Name | Role | Phone | [...] | [facility] | | | with TEST CENTER MANAGER | | | Surg Chh2 | Chh2 [address] | | | | | | [address] | | | | | | [address] [place] | Center for | | | | | | for Health | Health and | | | | | | and Healing, | Healing, | | | | | | Building 2 | Building 2 | | | | | | [place], | [place], [place] | | | | | | [place] | [address] | | | | | | [address] | Phone: | | | | | | Phone: | | | | | | | | Fax: | | | | | | Fax: | [phone] | | | | | | [phone] | | +--------+ + + + + + Encounter Details +--------+---------+ + + + | Date | Type | Department | Care Team | Description | +--------+---------+ + + + | 07/16/ | Office | Digestive Health | | Morbid obesity (HCC) | | 2019 | Visit | Center at [facility] [address] | | (Primary Dx) | | | | [address] [place] | | | | | | for Health and | | | | | | Healing, Building [address] | | | | | | [place], [place] | | | | | | [address] | | | | | | | [...] of Class: 1100 until 1200 (60 minutes qfru-rd-rqfq with patient) Teaching Methods: PowerPoint and verbal [...] a journal with fluid/protein d. Transportation 7. [facility] 8. Surgical [...] | | | uled | | [place], [place] | | | | | | [address] | | | | | | [phone] | | | | | | | | +--------+ + + + + | 12/01/ | Video/TeleH | Pain Management | Florencio Lockett, | | | 2019 | ealth-Sched | | PhD [address] | | | | uled | | [place], [place] | | | | | | [address] | | | | | | [phone] | | | | | | | | +--------+ + + + + | 01/06/ | Office | Plastic Surgery | Kuldip Harrell MD | | | 2019 | Visit | | [address] | | | | | | [place], [place] | | | | | | [address] | | | | | | [phone] | | | | | | | | +--------+ + + + + documented as of this encounter Visit Diagnoses + + | Diagnosis | + + | Morbid obesity (HCC) - Primary Morbid obesity | + + documented in this encounter"
--- OUTSIDE RECORDS SUMMARY | ~2019-11-17 | XMS | Encounter Summary ---
Demographics + + + | Address | [address] | | | [place] [address] | + + + | Home Phone [...] Team Providers + +------+ + | Care Shipping And Receiving Weigher Name | Role | Phone | + [...] Description | +--------+--------+ + + + | 10/27/ | Refill | Digestive Health | Kenan Norton, | Refill Request | | 2020 | | Center at [facility] [address] | MD [address] | | | | | [address] [place] | [place], [place] | | | | | for Health and | [address] | | | | | [facility] 2 | [phone] | | | | | [place], [place] | | | | | | [address] | | | | | | [phone] | | | +--------+--------+ + + + [...] | | | | ray | | [place], [place] | | | | | | [address] | | | | | | [phone] | | | | | | | | +--------+ + + + + | 12/01/ | Video/TeleH | Pain Management | Florencio Lockett, | | | 2019 | ealth-Sched | | PhD [address] | | | | uled | | [place], [place] | | | | | | [address] | | | | | | [phone] | | | | | | | | +--------+ + + + + | 01/06/ | Office | Plastic Surgery | Kuldip Harrell MD | | | 2019 | Visit | | [address] | | | | | | [place], [place] | | | | | | [address] | | | | | | [phone] | | | | | | | | +--------+ + + + + documented as of this encounter Visit Diagnoses Not on filedocumented in this encounter"
--- OUTSIDE RECORDS SUMMARY | ~2019-11-17 | XMS | Encounter Summary ---
Demographics + + + | Address | [address] | | | [place] [address] | + + + | Home Phone [...] Team Providers + +------+ + | Care Telesales Representative Name | Role | Phone | [...] | | [address] | [facility], [place] | gastrostomy tube (G | | | | for Health and | [address] | tube) placement, | | | | Healing, Building 2 | | follow-up exam; | | | | [facility] [place] | | Acute post-operative | | | | [address] | | pain; Nausea and | | [...] psychologist recommended by Dr. Lockett (Dr. Rodriguez [facility]) -- see PCP for ongoing management [...] Florencio Lockett, | | | 2019 | ealth-[facility] | | PhD [address] | | | | uled | | [place], [place] | | | | | | [address] | | | | | | [phone] | | | | | | | | +--------+ + + + + | 12/01/ | Video/TeleH | Pain Management | Florencio Lockett, | | | 2020 | ealth-Sched | | PhD [address] | | | | uled | | [place], [place] | | | | | | [address] | | | | | | [phone] | | | | | | | | +--------+ + + + + | 01/06/ | Office | Plastic Surgery | Kuldip Harrell MD | | | 2020 | Visit | | [address] | | | | | | [place], [place] | | | | | | [address] | | | | | | [phone] | | | | | | | [...]
--- OUTSIDE RECORDS SUMMARY | ~2019-11-17 | XMS | Encounter Summary ---
Demographics + + + | Address | [address] | | | [place] [address] | + + + | Home Phone [...] Providers + +------+ + | Care Business Manager Name | Role | Phone | [...] | | [address] | [facility] [place] | | | | | for Health and | [address] | | | | | Healing, Building [address] | [phone] | | | | | [place], [place] | | | | | | [address] | | | | | | | [...] | | | uled | | [place], [place] | | | | | | [address] | | | | | | [phone] | | | | | | | | +--------+ + + + + | 12/01/ | Video/TeleH | Pain Management | Florencio Lockett, | | | 2019 | ealth-Sched | | PhD [address] | | | | uled | | [place], [place] | | | | | | [address] | | | | | | [phone] | | | | | | | | +--------+ + + + + | 01/06/ | Office | Plastic Surgery | Kuldip Harrell MD | | | 2019 | Visit | | [address] | | | | | | [place], [place] | | | | | | [address] | | | | | | [phone] | | | | | | | [...]
--- OUTSIDE RECORDS SUMMARY | ~2019-11-17 | XMS | Encounter Summary ---
Demographics + + + | Address | [address] | | | [place] [address] | + + + | Home Phone | | + + + | Preferred Language | Unknown | + + + | Marital Status | | + + + | Episcopal Affiliation | Unknown | + + + [...] [place], | | | | | [place] [address] | | + + + + + Care Team Providers + +------+ + | Care Putty Patcher Name | Role | Phone | + [...] | [address], [place] | [place] [address] | migrainosus | | | | [address] | [phone] | | | | | [phone] | | | +--------+ + + + [...] 0 | 07/28/19 | | | (MYCOSTATIN) [id number] | | | | 19 | 9 [...] [place] | | | | | | [address] | | | | | | [phone] | | | | | | | | +--------+---------+ + + + | 12/01/ | Office | Cardiology | Nadege Chavez | | | 2019 | Visit | | [address] | | | | | | [address] | | | | | | [place] [address] | | | | | | [phone] | | | | | | | [...]
--- OUTSIDE RECORDS SUMMARY | ~2019-11-17 | XMS | Encounter Summary ---
Demographics + + + | Address | [address] | | | [place] [address] | + + + | Home Phone [...] Team Providers + +------+ + | Care Ve Teacher Name | Role | Phone | [...] Diagnoses | Cierra, | Jennie, | | | | ogy | S/P gastric | Kenan Santos MD | Cassidy Morton MD | | | | | bypass | [address] | | | | | Esophageal | [address] | Ave | | | | | dysmotility | [place], [place] | [place], [place] | | | | | Procedures | [address] | [address] | | | | | CONSULT TO | Phone: | Phone: | | | | | GASTROENTERO | [phone] | [phone] | | | | | LOGY | Fax: | Fax: | | | | | | [phone] | [phone] | +--------+--------+ + + + + Encounter Details +--------+--------+ + + + | Date | Type | Department | Care Team | Description | +--------+--------+ + + + | 05/10/ | Refill | Digestive Health | Kenan Norton, | | | 2019 | | Center at [facility] 3485 | MD [address] | | | | | [address] [facility] | [facility] [place] | | | | | [facility] Health and | [address] | | | | | Healing, Building 2 | [phone] | | | | | [place], [place] | | | | | | [address] | | | | | | [phone] | | | +--------+--------+ + + + [...] | | | | uled | | [place], [place] | | | | | | [address] | | | | | | [phone] | | | | | | | | +--------+ + + + + | 12/01/ | Video/TeleH | Pain Management | Florencio Lockett, | | | 2019 | ealth-Sched | | PhD [address] | | | | uled | | [place], [place] | | | | | | [address] | | | | | | [phone] | | | | | | | | +--------+ + + + + | 01/06/ | Office | Plastic Surgery | Kuldip Harrell MD | | | 2020 | Visit | | [address] | | | | | | [place], [place] | | | | | | [address] | | | | | | [phone] | | | | | | | | +--------+ + + + + documented as of this encounter Visit Diagnoses + + | Diagnosis | + + | S/P gastric bypass - Primary Bariatric surgery status | + + | Esophageal dysmotility Dyskinesia of esophagus | + + documented in this encounter"
--- OUTSIDE RECORDS SUMMARY | ~2019-11-17 | XMS | Encounter Summary ---
Demographics + + + | Address | [address] | | | [place] [address] | + + + | Home Phone | | + + + | Preferred Language | Unknown | + + + | Marital Status | | + + + | Jew Affiliation | Unknown | + + + | Race | Unknown | + + + | Ethnic Group | Unknown | + + + Author + + + | Author | [facility] | | | and [place] | + + + | Organization | [facility] | | [...] [place], | | | | | [place] [address] | | + + + + + Care Team Providers + +------+ + | Care Shearing Machine Operator Name | Role | Phone [...] + + | 07/07/ | Documentati | [employer] | Rosibel Peters, | Other (end of study) | | 2020 | on | CARDIOLOGY [place] | Technologist | | | | | [address] | | | | | | [place], [place] | | | | | | [address] | | | | | | [phone] | | | +--------+ + + + [...] | 2019 | Visit | | [address] [place] | | | | | | [place], [place] | | | | | | [address] | | | | | | [phone] | | | | | | | | +--------+---------+ + + + | 12/01/ | Office | Cardiology | Nadege Chavez | | | 2019 | Visit | | [address] | | | | | | [address] | | | | | | [place] [address] | | | | | | [phone] | | | | | | | | +--------+---------+ + + + documented as of this encounter Visit Diagnoses Not on filedocumented in this encounter"
--- OUTSIDE RECORDS SUMMARY | ~2019-11-17 | XMS | Encounter Summary ---
Demographics + + + | Address | [address] | | | [place] [address] | + + + | Home Phone [...] Team Providers + +------+ + | Care Fitness Manager Name | Role | Phone | [...] | [address] | [facility] [place] | | | | | for Health and | [address] | | | | | Healing, Building [address] | [phone] | | | | | [place], [place] | | | | | | [address] | | | | | | [phone] | | | +--------+ + + + [...] | | | | uled | | [place], [place] | | | | | | [address] | | | | | | [phone] | | | | | | | | +--------+ + + + + | 12/01/ | Video/TeleH | Pain Management | Florencio Lockett, | | | 2019 | ealth-Sched | | PhD [address] | | | | uled | | [place], [place] | | | | | | [address] | | | | | | [phone] | | | | | | | | +--------+ + + + + | 01/06/ | Office | Plastic Surgery | Kuldip Harrell MD | | | 2020 | Visit | | [address] | | | | | | [place], [place] | | | | | | [address] | | | | | | [phone] | | | | | | | | +--------+ + + + + documented as of this encounter Visit Diagnoses Not on filedocumented in this encounter"
--- OUTSIDE RECORDS SUMMARY | ~2019-11-17 | XMS | Encounter Summary ---
Demographics + + + | Address | [address] | | | [place] [address] | + + + | Home Phone [...] Team Providers + +------+ + | Care Pillowcase Cleaner Name | Role | Phone | [...] | 2018 | Visit | Center at [facility] [address] | | (Primary Dx) | | | | [address] | | | | | | for Health and | | | | | | Healing, [address] | | | | | | [place], [place] | | | | | | [address] | | | | | | [phone] | | | +--------+---------+ + + + [...] of Class: 2:00/3:00 until 3:00/4:00 (60 minutes [id number] with patient) OBJECTIVE: Height: Ht Readings from [...] information. Yes Lisa Medina RD, CNSC, LD [facility] Bariatrics [phone] documented in this enco unter Plan of Treatment +--------+ + + + + | Date | Type | Specialty | Care Team | Description | +--------+ + + + + | 11/17/ | Video/TeleH | Pain Management | Florencio Lockett, | | | 2019 | ealth-Sched | | PhD [address] | | | | uled | | [place], [place] | | | | | | [address] | | | | | | [phone] | | | | | | | | +--------+ + + + + | 12/01/ | Video/TeleH | Pain Management | Florencio Lockett, | | | 2019 | ealth-Sched | | PhD [address] | | | | uled | | [place], [place] | | | | | | [address] | | | | | | [phone] | | | | | | | | +--------+ + + + + | 01/06/ | Office | Plastic Surgery | Kuldip Harrell MD | | | 2019 | Visit | | [address] | | | | | | [place], [place] | | | | | | [address] | | | | | | [phone] | | | | | | | | +--------+ + + + + documented as of this encounter Visit Diagnoses + + | Diagnosis | + + | Morbid obesity (HCC) - Primary Morbid obesity | + + documented in this encounter"
--- OUTSIDE RECORDS SUMMARY | ~2019-11-17 | XMS | Encounter Summary ---
Demographics + + + | Address | [address] | | | [place] [address] | + + + | Home Phone [...] Team Providers + +------+ + | Care Field Director Name | Role | Phone | [...] 02/14/ | Documentati | [facility] at [facility] | Lab, Gi Procedure | Medical Records | | 2019 | on | [address] | | Review | | | | [address] [facility] | | | | | | Health and Healing, | | | | | | [address] | | | | | | [place], [place] | | | | | | [address] | | | | | | [phone] | | | +--------+ + + + [...] | | | | uljeancarlos | | [facility] [place] | | | | | | [address] | | | | | | [phone] | | | | | | | | +--------+ + + + + | 12/01/ | Video/TeleH | Pain Management | Florencio Lockett G, | | | 2019 | ealth-Sched | | PhD [address] | | | | uled | | [place], [place] | | | | | | [address] | | | | | | [phone] | | | | | | | | +--------+ + + + + | 01/06/ | Office | Plastic Surgery | Kuldip Harrell MD | | | 2019 | Visit | | [address] | | | | | | [place], [place] | | | | | | [address] | | | | | | [phone] | | | | | | | | +--------+ + + + + documented as of this encounter Visit Diagnoses Not on filedocumented in this encounter"
--- OUTSIDE RECORDS SUMMARY | ~2019-11-17 | XMS | Encounter Summary ---
Demographics + + + | Address | [address] | | | [place] [address] | + + + | Home Phone [...] Team Providers + +------+ + | Care Cutting Table Operator Name | Role | Phone | [...] | Center at [facility] [address] | MD [address] | | | | | [address] | [facility] [place] | | | | | for Health and | [address] | | | | | Healing, [address] | [phone] | | | | | [place], [place] | | | | | | [address] | | | | | | [phone] | | | +--------+ + + + [...] | | | | uled | | [place], [place] | | | | | | [address] | | | | | | [phone] | | | | | | | | +--------+ + + + + | 12/01/ | Video/TeleH | Pain Management | Florencio Lockett, | | | 2019 | ealth-Sched | | PhD [address] | | | | uled | | [place], [place] | | | | | | [address] | | | | | | [phone] | | | | | | | | +--------+ + + + + | 01/06/ | Office | Plastic Surgery | Kuldip Harrell MD | | | 2020 | Visit | | [address] | | | | | | [place], [place] | | | | | | [address] | | | | | | [phone] | | | | | | | | +--------+ + + + + documented as of this encounter Visit Diagnoses Not on filedocumented in this encounter"
--- OUTSIDE RECORDS SUMMARY | ~2019-11-17 | XMS | Encounter Summary ---
Demographics + + + | Address | [address] | | | [place] [address] | + + + | Home Phone [...] Team Providers + +------+ + | Care Toys Inspector Name | Role | Phone | [...] | | | | CONSULT TO | [place], [place] | [place], [place] | | | | | PAIN | [address] | [address] | | | | | MANAGEMENT | Phone: | Phone: | | | | | [place] | [phone] | [phone] | | | | | BIOFEEDBACK | Fax: | Fax: | | | | | TRAINING,[place] | [phone] | [phone] | | | | | MODALITY | | | + +---------+ + + + + Encounter Details +--------+ + + + + | Date | Type | Department | Care Team | Description | +--------+ + + + + | 05/15/ | Account Development Associate | Digestive Health | Kenan Norton, | S/P gastric bypass | | 2020 | | Center at [facility] [address] | MD [address] | (Primary Dx) | | | | [address] | [facility] [place] | | | | | for Health and | [address] | | | | | Healing, [address] | [phone] | | | | | [place], [place] | | | | | | [address] | | | | | | [phone] | | | +--------+ + + + [...] | | | | uled | | [place], [place] | | | | | | [address] | | | | | | [phone] | | | | | | | | +--------+ + + + + | 12/01/ | Video/TeleH | Pain Management | Florencio Lockett, | | | 2019 | ealth-Sched | | PhD [address] | | | | uled | | [place], [place] | | | | | | [address] | | | | | | [phone] | | | | | | | | +--------+ + + + + | 01/06/ | Office | Plastic Surgery | Kuldip Harrell MD | | | 2020 | Visit | | [address] | | | | | | [place], [place] | | | | | | [address] | | | | | | [phone] | | | | | | | | +--------+ + + + + documented as of this encounter Visit Diagnoses + + | Diagnosis | + + | S/P gastric bypass - Primary Bariatric surgery status | + + documented in this encounter"
--- OUTSIDE RECORDS SUMMARY | ~2019-11-17 | XMS | Encounter Summary ---
Demographics + + + | Address | [address] | | | [place] [address] | + + + | Home Phone [...] Team Providers + +------+ + | Care Stock Selector Name | Role | Phone | + [...] | | | | uljeancarlos | | [place], [place] | | | | | | [address] | | | | | | [phone] | | | | | | | | +--------+ + + + + | 12/01/ | Video/TeleH | Pain Management | Florencio Lockett, | | | 2019 | ealth-Sched | | PhD [address] | | | | uled | | [place], [place] | | | | | | [address] | | | | | | [phone] | | | | | | | | +--------+ + + + + | 01/06/ | Office | Plastic Surgery | Kuldip Harrell MD | | | 2019 | Visit | | [address] | | | | | | [place], [place] | | | | | | [address] | | | | | | [phone] | | | | | | | | +--------+ + + + + documented as of this encounter Visit Diagnoses Not on filedocumented in this encounter"
--- OUTSIDE RECORDS SUMMARY | ~2019-11-17 | XMS | Encounter Summary ---
Demographics + + + | Address | [address] | | | [place] [address] | + + + | Home Phone | | + + + | Preferred Language | Unknown | + + + | Marital Status | | + + + | Faith Affiliation | Unknown | + + + | Race | Unknown | + + + | Ethnic Group | Unknown | + + + Author + + + | Author | [facility] | | | and [place] | + + + | Organization | [facility] | | | [...] [place], | | | | | [place] [address] | | + + + + + Care Team Providers + +------+ + | Care Brim Shaper Name | Role | Phone | + +------+ + | Alisha Stovall | PCP | | | PA-C | | | + +------+ + Reason for Visit + + + | Reason | Comments | + + + | Migraine | | + + + Encounter Details +--------+---------+ + + + | Date | Type | Department | Care Team | Description | +--------+---------+ + + + | 08/20/ | Office | [facility] | Shirley Murdock NP | Intractable migraine | | 2020 | Visit | [facility] | [address] | without aura and | | | | CLINIC [address] | [place] | without status | | | | [address] [place], | [address] | migrainosus (Primary | | | | [place] [address] | [phone] | Dx); Gastric bypass | | | | [phone] | | status for obesity | +--------+---------+ + + + Social History [...] + + + | Blood Pressure | 110/80 | 08/21/2019 8:48 AM | | | | | PDT | | + + + + + | Pulse | 62 | 08/21/2019 8:48 AM | | | | | PDT | | + + + + + | Temperature | 35.9 C (96.6 F) | 08/21/2019 8:48 AM | | | | | PDT | | + + + + + | Respiratory Rate | 16 | 08/21/2019 8:48 AM | | | | | PDT | | + + + + + | Oxygen Saturation | 99% | 08/21/2019 8:48 AM | | | | | PDT | | + + + + + | Inhaled Oxygen | - | - | | | Concentration | | | | + + + + + | Weight | 103.9 kg (229 lb) | 08/21/2019 8:48 AM | | | | | PDT | | + + + + + | Height | 180.3 cm (5' 11") | 08/21/2019 8:48 AM | | | | | PDT | | + + + + + | Body Mass Index | 31.94 | 08/21/2019 8:48 AM | | | | | PDT | | + + + + + documented in this encounter Progress Notes Shirley Murdock NP - 08/21/2019 8:30 AM PDTFormatting of this note might be different from th e original. NEUROLOGY FOLLOW UP OFFICE VISIT Patient: Maria De Jesus [place]án[place] Medical Record: [id number] Date of Services: 08/21/2019 Referring Doctor: Alisha Stovall PA-C HISTORY Chief Complaint: Migraine headaches. History of Present Illness: Maria De Jesus [place]án[place] is a 28 y.o. patient presenting to our neurol ogy clinic today for follow up of migraines without aura. The patient is an established pat ient of Dr. Joel and new to myself. She was last seen in our office on 02/28/2019 at which time she had underwent gastric bypass surgery and was having difficulties with both eating and drinking. She reported her headac hes were triggered by her dietary issues. She was continued on Topamax and Tylenol (limited to 2 tabs due to a history of overuse). The patient had previously utilized Imitrex which caused an increase in migraines, she has also used Propranolol which was discontinued due to hypotension. Today, the patient reports she continues to have difficulties with both eating and drinking . She has had a feeding tube placed which has had complications and she is scheduled for a revision on 08/28/2019. She continues to experience migraine headaches, approximately one jovanni ry other day. They continue to affect the left side of her face and are accompanied by blur red vision, hearing loss, N/V, and photophobia. She is having difficulties with sleep. She has been started on Trazodone by her provide r. She has also been started on Lamotrigine. She has a once weekly telehealth therapy visi t with her provider. 09/14/2018 MRI of brain w/ and w/o contrast: IMPRESSION: 1. No acute intracranial process. 2. Mild cerebellar tonsillar ectopia. 3. Partial empty sella turcica. 4. Hyperostosis frontalis. 09/14/2018 EEG: No focal slow waves or epileptiform discharges seen. Encounter Problem List: Patient Active Problem List Diagnosis Intractable migraine without aura and without status migrainosus Past Surgical History: Procedure Laterality Date ANTERIOR CRUCIATE LIGAMENT REPAIR gastric bypass Allergies Allergen Reactions Nicotiana Tabacum Shortness Of Breath Depakote [Valproic Acid] Other (See Comments) Suicidal Fish Oil Hives and Nausea And Vomiting Ibuprofen Hives and Nausea And Vomiting Imitrex [Sumatriptan] Nausea And Vomiting Increased headaches Oxycodone-Acetaminophen Nausea And Vomiting Percocet [Oxycodone] Nausea And Vomiting Seroquel [Quetiapine] Other (See Comments) Rage Doxycycline Rash Tessalon [Benzonatate] Rash Current Outpatient Medications Medication Sig Dispense Refill acetaminophen (TYLENOL) 500 [...] mouth Daily as n eeded for Constipation. Multiple Vitamins-Minerals (MULTIVITAMIN ADULT PO) Take by mouth. naloxone (NARCAN) 0.4 mg/mL oral liquid Take 8 mg by mouth 4 times daily. ondansetron (ZOFRAN ODT) 4 mg disintegrating tablet Take 4 mg by mouth every 8 hours as needed for Nausea. pantoprazole (PROTONIX) 20 mg tablet Take 20 mg by mouth every morning (before breakfas t). prochlorperazine 5 mg tablet Take 5-10 mg [...] VENLAFAXINE HCL PO Take by mouth. No current facility-administered medications for this visit. Review of Symptoms: CONSTITUTIONAL: + weight loss, no fever, no chills, +weaknes, +fatigue. HEENT: Eyes: No visual loss, blurred vision, double vision or yellow sclerae. Ears, Nose, Throat: No hearing loss, sneezing, congestion, runny nose or sore throat. CARDIOVASCULAR: No chest pain, chest pressure or chest discomfort. No palpitations or edema . RESPIRATORY: No shortness of breath, cough or sputum. GASTROINTESTINAL: +nausea. GENITOURINARY: No burning on urination. NEUROLOGICAL: +headache, no dizziness, syncope, paralysis, ataxia, numbness or tingling in the extremities. No change in bowel or bladder control. MUSCULOSKELETAL: No muscle, back pain, joint pain or stiffness. PSYCH: +depression. EXAMINATION Examination: Vitals: 08/21/19 0848 BP: 110/80 Pulse: 62 Resp: 16 Temp: 35.9 C (96.6 F) PainSc: 2 PainLoc: Abdomen General Appearance: The patient is alert and in no acute distress. Mental status: The patient is alert, attentive, [...] bulk and tone are normal. Strength is 4/5 bilaterally. Sensory: Light touch intact. Coordination: Rapid alternating movements and fine finger movements are intact. There is no dysmetria on riluim-cq-qqwv. There are no abnormal or extraneous movements. Reflexes: Reflexes are 2+ at the knees. Ambulation/Gait/Stance: Posture is normal. Gait is steady with normal steps, base, arm swing, and turning. ASSESSMENT AND PLAN Clinical Impression: ICD-10-CM ICD-9-CM 1. Intractable migraine without aura and without status migrainosus G43.019 346.11 2. Gastric bypass status for obesity Z98.84 V45.86 Plan: The patient continues to experience a migraine headache 15 times per month (every other day ) lasting more than 4 hours per day. She is currently utilizing Topamax 50mg BID and Lamotr igine (prescribed by MH provider, dose unknown by patient). She has used Imitrex, Tylenol, and Propranolol in the past. She is allergic to Ibuprofen. She continues to have complicati ons after a gastric bypass surgery and is having a revision of her feeding tube next week. There is concern for malabsorption and we have placed an order for Aimovig 70mg SQ daily. W e have also discussed a trial of Botox injections, due to her distance from the office, Aimo vig would be more manageable for the patient. We will follow this patient closely with next in office follow-up in 3 months. More than 50% of this 30 minute visit was spent counseling the patient regarding continued management of migraine headaches. This note was transcribed using voice recognition software. There may be speech recognitio n errors which escaped detection during review.Electronically signed by Shirley Murdock NP at 2:08 PM PDTdocumented in this encounter Plan of Treatment +--------+---------+ + + + | Date | Type | Specialty | Care Team | Description | +--------+---------+ + + + | 11/18/ | Office | Neurology | Shirley Murdock NP | | 2019 | Visit | [address] | | | | | | [place] | | | | | | [address] | | | | | | [phone] | | | | | | | | +--------+---------+ + + + | 12/01/ | Office | Cardiology | Nadege Chavez | | | 2019 | Visit | | [address] | | | | | | [address] | | | | | | [place] [address] | | | | | | [phone] | | | | | | | | +--------+---------+ + + + documented as of this encounter Visit Diagnoses + + | Diagnosis | + + | Intractable migraine without aura and without status migrainosus - Primary Migraine | | without aura, with intractable migraine, so stated, without mention of status | | migrainosus | + + | Gastric bypass status for obesity Bariatric surgery status | + + documented in this encounter
--- OUTSIDE RECORDS SUMMARY | ~2019-11-17 | XMS | Encounter Summary ---
Demographics + + + | Address | [address] | | | [place] [address] | + + + | Home Phone [...] Team Providers + +------+ + | Care Director Cost Name | Role | Phone | + +------+ + | Alisha Stovall PA-C | PCP | | + +------+ + Encounter Details +--------+ + + + + | Date | Type | Department | Care Team | Description | +--------+ + + + + | 03/22/ | MyChart | Pain Center at [facility] | Florencio Lockett, | MyChart Message | | 2018 | Encounter | [address] | PhD [address] | | | | | Center for Health | [place], [place] | | | | | and Healing, | [address] | | | | | | [phone] | | | | | Floor [place], [place] | | | | | | [address] | | | | | | [phone] | | | +--------+ + + + [...] | | | | uled | | [place], [place] | | | | | | [address] | | | | | | [phone] | | | | | | | | +--------+ + + + + | 12/01/ | Video/TeleH | Pain Management | Florencio Lockett, | | | 2019 | ealth-Sched | | PhD [address] | | | | uled | | [place], [place] | | | | | | [address] | | | | | | [phone] | | | | | | | | +--------+ + + + + | 01/06/ | Office | Plastic Surgery | Kuldip Harrell MD | | | 2020 | Visit | | [address] | | | | | | [place] | | | | | | [address] | | | | | | [phone] | | | | | | | | +--------+ + + + + documented as of this encounter Visit Diagnoses Not on filedocumented in this encounter"
--- OUTSIDE RECORDS SUMMARY | ~2019-11-17 | XMS | Encounter Summary ---
Demographics + + + | Address | [address] | | | [place] [address] | + + + | Home Phone [...] Team Providers + +------+ + | Care Marble Mason Name | Role | Phone | + +------+ + | Alisha Stovall PA-C | PCP | | + +------+ + Encounter Details +--------+------+ + + + | Date | Type | Department | Care Team | Description | +--------+------+ + + + | 12/21/ | Lab | Laboratory at [facility] | | | | 2019 | | [address] | | | | | | [place] [facility] | | | | | | and Healing, | | | | | | Building [address] | | | | | | [place], [place] | | | | | | [address] | | | | | | [phone] | | | +--------+------+ + + + [...] | | | | uled | | [place], [place] | | | | | | [address] | | | | | | [phone] | | | | | | | | +--------+ + + + + | 12/01/ | Video/TeleH | Pain Management | Florencio Lockett, | | | 2019 | ealth-Sched | | PhD [address] | | | | uled | | [place], [place] | | | | | | [address] | | | | | | [phone] | | | | | | | | +--------+ + + + + | 01/06/ | Office | Plastic Surgery | Kuldip Harrell MD | | | 2020 | Visit | | [address] | | | | | | [place], [place] | | | | | | [address] | | | | | | [phone] | | | | | | | [...] | | | | PDT | obesity ([facility]) | results section. | | | | [...] | | | | PDT | obesity ([facility]) | results section. | | | | [...] | | | | PDT | obesity ([facility]) | results section. | | | | [...] | | | | PDT | obesity ([facility]) | results section. | | | | [...] | | | | PDT | obesity ([facility]) | results section. | | | | [...] | | | | PDT | obesity ([facility]) | results section. | | | | [...] | | | | PDT | obesity ([facility]) | results section. | | | | [...] | | | | PDT | obesity ([facility]) | results section. | | | | [...] | | | | PDT | obesity ([facility]) | results section. | | | | [...] | | | | PDT | obesity ([facility]) | results section. | | | | [...] | | | | PDT | obesity ([facility]) | results section. | | | | [...] | (NA,K,CL,CO2,BUN,CRE | | PDT | obesity (HCC) | results section. | | AT,GLUC,CA,AST,ALT,B | [...] REG UNIV | | | EIA | Laboratories,[facility] | | PTH - INTFC | | | | [place] [address] | | | | | | [phone]. | | | | | | Josué [...] [facility] | [address] | [place], [place] | | | UNIV PTH - INTFC | | [address] | | + + + + + [...] | + + + + + | [facility] | [address] | [place] [address] | | | SERVICES, [place] [facility] | | | | | HEALTH [...] | | >18years: Deficiency: <20 ng/mL | AD[facility] SMITH | | Insufficiency: 20-29 ng/mL | | | Optimum Level: 30-80 ng/mL High: | | | 81-150 ng/ml Toxic: >150 ng/mL | | + + + + + + + + | Performing | Address | City/State/Zipcode | Phone Number | | Organization | | | | + + + + + | [facility] | [address] | [place] [address] | | | ADONAY SMITH | [address] [...] | + + + + + | [facility] | [address] | [place] [address] | | | [facility], ADONAY | [address] | | | [...] | | | | | determined by [employer] | | | | | | Laboratories. See | | | | | | Compliance Statement B: | | | | | | [facility]/CSPerformed | | | | | | by [employer],[address] | | | | | | [address] [facility] | | | | | | [address] | | | | | | [phone].[facility]. | | | | | | [employer], Josué Lantigua MD, | | | | [...] [facility] | [address] | [place], [place] | | | UNIV PTH - INTFC | | [address] | | + + + + + [...] | | | | | determined by [employer] | | | | | | Laboratories. See | | | | | | Compliance Statement B: | | | | | | [employer]/CSPerformed | | | | | | by [employer],[address] | | | | | | [address] [facility],[place] | | | | | | [address] | | | | | | [phone].[facility]. | | | | | | Josué [...] | + + + + + | [facility] | [address] | [place], [place] | | | UNIV PTH - INTFC | | [address] | | + + + + + [...] | + + + + + | [facility] | [address] | [place] [address] | | | SERVICES, CORE | PARK [...] + + | [facility] | [address] | [place] [address] | | | SERVICES, CORE | PARK [...] | + + + + + | [facility] [employer] | [address] | [place] [address] | | | SERVICES, SPECIAL | [address] [...] | [facility] | | considered for monitoring mcfp glycemic control in patients with: | LABORATORY [...] + + | [facility] | [address] [facility] | [place] [address] | | | SERVICES, SPECIAL | PARK [...] + + | [facility] | [address] | [place] [address] | | | SERVICES, [facility] | [address] | | | + [...] SERVICES, | | | | | | [place] [facility] | | | | | | [...] | | | LABORATORY | | | [facility] | | | SERVICES, | | | [...] SERVICES, | | | | | | [place] [facility] | | | | | | [...] MDRD equation recommended by the National | [place] | | Kidney Disease Education Program. Estimated [...] | + + + + + | [facility] | [address] | [place] [address] | | | SERVICES, [facility] | | | | | HEALTH + HEALING | | | | + + + + + documented in this encounter Visit Diagnoses Not on filedocumented in this encounter"
--- OUTSIDE RECORDS SUMMARY | ~2019-11-17 | XMS | Encounter Summary ---
Demographics + + + | Address | [address] | | | [place] [address] | + + + | Home Phone [...] Providers + +------+ + | Care Assistant Manager Airside Operations Name | Role | Phone | + [...] | | [address] | [place], [place] | Nausea; Epigastric | | | | for Health and | [address] | pain; Aftercare | | | | Healing, Building 2 | [phone] | following surgery | | | | [place], [place] | | | | | | [address] | | | | | | [phone] | | | +--------+---------+ + + + [...] AM PDTPlease visit with our Re gistered Nursing Education Consultant (RD) for instructions about your Bariatric diet, assistance with calorie counts, tips and tricks for working with your diet restrictions, and recipes after bariatric surgery. Daily yogurt; even just 1 tablespoon twice a day will provide enough probiotics to optimize digestion. Try to use a high-quality, probiotic-dense yogurt (eg Shoshana's, [place], Lif eway Kefir, Client Renewal Specialist DarynKiwiTech Yakut Yogurt). Remember to chew your food well, [...] to the healing stomach. There are also medical terminologist complications of poor wound healing and gastric [...] months -- Continue routine follow up with WEBSITE OPTIMIZATION STRATEGIST and nutrition team -- see PCP for [...] Vitor Kern - 10/27/19 8:30 AM PDT [facility] Department of Surgery Division of Red Surgery Clinic Note- Follow-Up Author: Vitor Lyons MS3 Attending Physician: Kenan Norton MD 10/26/2018 Chief Complaint: Bariatric Follow-Up Subjective/Interval History: Maria De Jesus nAna is a 27 y.o. female patient who [...] continued she went to an ED in [facility] where she was worked up for dehydration [...] she has only been able to tolerate yoruba and drinkable y ogurts. She states it [...] months -- Continue routine follow up with WEBSITE OPTIMIZATION STRATEGIST and nutrition team -- see PCP for [...] above plan of care. Vitor Lyons, MS3 [facility] [address] Mailcode: [place] [address] documented in this encoun ter Plan of Treatment +--------+ + + + + | Date | Type | Specialty | Care Team | Description | +--------+ + + + + | 11/17/ | Video/TeleH | Pain Management | Florencio Lockett G, | | | 2019 | ealth-Sched | | PhD [address] | | | | uled | | [place], [place] | | | | | | [address] | | | | | | [phone] | | | | | | | | +--------+ + + + + | 12/01/ | Video/TeleH | Pain Management | Florencio Lockett G, | | | 2019 | ealth-Sched | | PhD [address] | | | | uled | | [place], [place] | | | | | | [address] | | | | | | [phone] | | | | | | | | +--------+ + + + + | 01/06/ | Office | Plastic Surgery | Kuldip Harrell MD | | | 2019 | Visit | | [address] | | | | | | [place], [place] | | | | | | [address] | | | | | | [phone] | | | | | | | [...] | + + + + + | [facility] | [address] | [place] [address] | | | SERVICES, ADONAY | SAMMI [...] INTERPRETIVE | 70 - 180 nmol/L | [facility] | | | WHOLE | INFORMATION: Vitamin [...] | | | | | determined by [facility] | | | | | | Laboratories. See | | | | | | Compliance Statement B: | | | | | | Calsys.Playroll/CSPerformed | | | | | | by Galenea,[address] | | | | | | Francisca Riley [facility],[place] | | | | | | [address] | | | | | | [phone].Calsys. | | | | | | com, [...] [facility] | [address] | [place], [place] | | | UNIV PTH - INTFC | | [address] | | + + + + + [...] | | | LABORATORY | | | LAO | | | SERVICES, | | | [...] | + + + + + | [facility] | [address] | [place] [address] | | | SERVICES, CORE | SAMMI [...]
--- OUTSIDE RECORDS SUMMARY | ~2019-11-17 | XMS | Encounter Summary ---
Demographics + + + | Address | [address] | | | [place] [address] | + + + | Home Phone [...] Team Providers + +------+ + | Care Hydro Plant Site Manager Name | Role | Phone | + +------+ + | Alisha Stovall PA-C | PCP | | + +------+ + Encounter Details +--------+ + + + + | Date | Type | Department | Care Team | Description | +--------+ + + + + | 06/20/ | [facility] | Digestive Health | Kenan Norton, | Preop testing | | 2019 | | Center at [facility] [address] | MD [address] | (Primary Dx) | | | | [address] | [place], [place] | | | | | for Health and | [address] | | | | | Healing, Building [address] | [phone] | | | | | [place], [place] | | | | | | [address] | | | | | | [phone] | | | +--------+ + + + [...] | | | | uled | | [place], [place] | | | | | | [address] | | | | | | [phone] | | | | | | | | +--------+ + + + + | 12/01/ | Video/TeleH | Pain Management | Florencio Lockett, | | | 2019 | ealth-Sched | | PhD [address] | | | | uled | | [place], [place] | | | | | | [address] | | | | | | [phone] | | | | | | | | +--------+ + + + + | 01/06/ | Office | Plastic Surgery | Kuldip Harrell MD | | | 2020 | Visit | | [address] | | | | | | [place], [place] | | | | | | [address] | | | | | | [phone] | | | | | | | | +--------+ + + + + documented as of this encounter Results DRUG SCREEN,URINE;W/CONFIRM (08/10/2018 11:59 [...] + + + + + | [facility] | [address] | [place] [address] | | | SERVICES, CORE | SAMMI [...] | | | | | determined by [facility] | | | | | | Laboratories. See | | | | | | Compliance Statement B: | | | | | | JAMF Software.com/CSPerformed | | | | | | by LocalSense,[address] | | | | | | [place] | | | | | | [address] | | | | | | [phone].Whistlelab. | | | | | | comJosué [...] [facility] | [address] | [place], [place] | | | UNIV PTH - INTFC | | [address] | | + + + + + documented in this encounter Visit Diagnoses + + | Diagnosis | + + | Preop testing - Primary Preoperative examination, unspecified | + + documented in this encounter"
--- OUTSIDE RECORDS SUMMARY | ~2019-11-17 | XMS | Encounter Summary ---
Demographics + + + | Address | [address] | | | [place] [address] | + + + | Home Phone [...] Team Providers + +------+ + | Care Multi Craft Maintenance Technician Name | Role | Phone | [...] | | | | ray | | [place], [place] | | | | | | [address] | | | | | | [phone] | | | | | | | | +--------+ + + + + | 12/01/ | Video/TeleH | Pain Management | Florencio Lockett G, | | | 2019 | ealth-Sched | | PhD [address] | | | | uled | | [place], [place] | | | | | | [address] | | | | | | [phone] | | | | | | | | +--------+ + + + + | 01/06/ | Office | Plastic Surgery | Kuldip Harrell MD | | | 2019 | Visit | | [address] | | | | | | [place], [place] | | | | | | [address] | | | | | | [phone] | | | | | | | | +--------+ + + + + documented as of this encounter Visit Diagnoses Not on filedocumented in this encounter"
--- OUTSIDE RECORDS SUMMARY | ~2019-11-17 | XMS | Encounter Summary ---
Demographics + + + | Address | [address] | | | [place] [address] | + + + | Home Phone | | + + + | Preferred Language | Unknown | + + + | Marital Status | | + + + | Taoist Affiliation | Unknown | + + + | Race | Unknown | + + + | Ethnic Group | Unknown | + + + Author + + + | Author | [facility] | | | and [place] | + + + | Organization | [facility] | | | [...] [place], | | | | | [place] [address] | | + + + + + Care Team Providers + +------+ + | Care Tissue Specialist Name | Role | Phone | [...] | | | | | Procedures | [place], [place] | [address] | | | | | AR XTRNL PT | [address] | [place] | | | | | ACTIVTD ECG | Phone: | [address] | | | | | DWNLD W/R&I | [phone] | Phone: | | | | | </30 DAYS | Fax: | [phone] | | | | | AR EXT | [phone] | Fax: | | | | | ECG,PT | | [phone] | | | | | DEMAND | | | | | | | EVENT, SYMPT | | | | | | | MEMORY | | | | | | | LOOP, RECORD | | | | | | | AR XTRNL | | | | | | [...] + + | 07/07/ | Clinical | [facility] | Katheryn Hammonds DO | Cardiac arrhythmia, | | 2019 | Support | CARDIOLOGY AARON | [address] | unspecified cardiac | | | | [address] | [address], [place] | arrhythmia type | | | | [address] [place] [address] | [address] | | | | | [place] | | | | | | [address] | | | | | | [phone] | | | +--------+ + + + [...] Luzmaria Obrien CMA - 07/08/2019 1:15 PM PDT day cardiac event monitor placed on patie [...] | | 2019 | Visit | | [address] [place] [address] | | | | | | [place] | | | | | | [address] | | | | | | [phone] | | | | | | | | +--------+---------+ + + + | 12/01/ | Office | Cardiology | Nadege Chavez | | 2019 | Visit | | [address] | | | | | | [address] | | | | | | [place] [address] | | | | | | [phone] | | | | | | | | +--------+---------+ + + + documented as of this encounter Visit Diagnoses + + | Diagnosis | + + | Cardiac arrhythmia, unspecified cardiac arrhythmia type | + + documented in this encounter"
--- OUTSIDE RECORDS SUMMARY | ~2019-11-17 | XMS | Encounter Summary ---
Demographics + + + | Address | [address] | | | [place] [address] | + + + | Home Phone [...] Team Providers + +------+ + | Care Feed Preparation Operator Name | Role | Phone | [...] Records | | 2020 | | Center [place] [address] [address] | | Review | | | | [address] [facility] | | | | | | for Health and | | | | | | Healing, Building [address] | | | | | | [place], [place] | | | | | | [address] | | | | | | [phone] | | | +--------+ + + + [...] | | | | ray | | [place], [place] | | | | | | [address] | | | | | | [phone] | | | | | | | | +--------+ + + + + | 12/01/ | Video/TeleH | Pain Management | Florencio Lockett G, | | | 2019 | ealth-Sched | | PhD [address] | | | | uled | | [place], [place] | | | | | | [address] | | | | | | [phone] | | | | | | | | +--------+ + + + + | 01/06/ | Office | Plastic Surgery | Kuldip Harrell MD | | | 2019 | Visit | | [address] | | | | | | [place], [place] | | | | | | [address] | | | | | | [phone] | | | | | | | | +--------+ + + + + documented as of this encounter Visit Diagnoses Not on filedocumented in this encounter"
--- OUTSIDE RECORDS SUMMARY | ~2019-11-17 | XMS | Encounter Summary ---
Demographics + + + | Address | [address] | | | [place] [address] | + + + | Home Phone | | + + + | Preferred Language | Unknown | + + + | Marital Status | | + + + | Episcopalian Affiliation | NRP | + + + [...] Team Providers + +------+ + | Care Food Broker Name | Role | Phone | + [...] | 2018 | Encounter | Center at [facility] [address] | [address] | | | | | [address] [facility] | [address]onse Hernandez [place], | | | | | for Health and | [place] [address] | | | | | [facility], Building 2 | [phone] | | | | | [place], [place] | | | | | | [address] | | | | | | [phone] | | | +--------+ + + + [...] | eah-Sched | | PhD [address] | | | | uled | | [place], [place] | | | | | | [address] | | | | | | [phone] | | | | | | | | +--------+ + + + + | 12/01/ | Video/TeleH | Pain Management | Florencio Lockett, | | | 2019 | ealth-Sched | | PhD [address] | | | | uled | | [place], [place] | | | | | | [address] | | | | | | [phone] | | | | | | | | +--------+ + + + + | 01/06/ | Office | Plastic Surgery | Kuldip Harrell MD | | | 2019 | Visit | | [address] | | | | | | [place] | | | | | | [address] | | | | | | [phone] | | | | | | | | +--------+ + + + + documented as of this encounter Visit Diagnoses Not on filedocumented in this encounter"
--- OUTSIDE RECORDS SUMMARY | ~2019-11-17 | XMS | Encounter Summary ---
Demographics + + + | Address | [address] | | | [place] [address] | + + + | Home Phone [...] Team Providers + +------+ + | Care Form Presser Name | Role | Phone | + [...] | | | | | 4th floor [place], | | | | | | [place] [address] | | | | | | [phone] | | | +--------+ + + + [...] | | | | ray | | [place], [place] | | | | | | [address] | | | | | | [phone] | | | | | | | | +--------+ + + + + | 12/01/ | Video/TeleH | Pain Management | Florencio Lockett, | | | 2019 | ealth-Sched | | PhD [address] | | | | uled | | [place], [place] | | | | | | [address] | | | | | | [phone] | | | | | | | | +--------+ + + + + | 01/06/ | Office | Plastic Surgery | Kuldip Harrell MD | | | 2019 | Visit | | [address] | | | | | | [place], [place] | | | | | | [address] | | | | | | [phone] | | | | | | | | +--------+ + + + + documented as of this encounter Visit Diagnoses Not on filedocumented in this encounter"
--- OUTSIDE RECORDS SUMMARY | ~2019-11-17 | XMS | Encounter Summary ---
Demographics + + + | Address | [address] | | | [place] [address] | + + + | Home Phone [...] Team Providers + +------+ + | Care Side Door Worker Name | Role | Phone | [...] | 2019 | | Center at [facility] [address] | [facility] [address] | | | | | [address] | [facility] [place] | | | | | for Health and | [address] | | | | | Healing, [address] | [phone] | | | | | [place], [place] | | | | | | [address] | | | | | | [phone] | | | +--------+ + + + [...] | | | | uled | | [place], [place] | | | | | | [address] | | | | | | [phone] | | | | | | | | +--------+ + + + + | 12/01/ | Video/TeleH | Pain Management | Florencio Lockett, | | | 2019 | ealth-Sched | | PhD [address] | | | | uled | | [place], [place] | | | | | | [address] | | | | | | [phone] | | | | | | | | +--------+ + + + + | 01/06/ | Office | Plastic Surgery | Kuldip Harrell MD | | | 2020 | Visit | | [address] | | | | | | [place], [place] | | | | | | [address] | | | | | | [phone] | | | | | | | | +--------+ + + + + documented as of this encounter Visit Diagnoses Not on filedocumented in this encounter"
--- OUTSIDE RECORDS SUMMARY | ~2019-11-17 | XMS | Encounter Summary ---
Demographics + + + | Address | [address] | | | [place] [address] | + + + | Home Phone [...] Team Providers + +------+ + | Care Paint Supervisor Name | Role | Phone | [...] | [address] | [place], [place] | | | | | for Health and | [address] | | | | | Healing, [address] | [phone] | | | | | [place], [place] | | | | | | [address] | | | | | | [phone] | | | +--------+ + + + [...] | | | | uled | | [place], [place] | | | | | | [address] | | | | | | [phone] | | | | | | | | +--------+ + + + + | 12/01/ | Video/TeleH | Pain Management | Florencio Lockett, | | | 2019 | ealth-Sched | | PhD [address] | | | | uled | | [place], [place] | | | | | | [address] | | | | | | [phone] | | | | | | | | +--------+ + + + + | 01/06/ | Office | Plastic Surgery | Kuldip Harrell MD | | | 2020 | Visit | | [address] | | | | | | [place], [place] | | | | | | [address] | | | | | | [phone] | | | | | | | | +--------+ + + + + documented as of this encounter Visit Diagnoses Not on filedocumented in this encounter"
--- OUTSIDE RECORDS SUMMARY | ~2019-11-17 | XMS | Encounter Summary ---
Demographics + + + | Address | [address] | | | [place] [address] | + + + | Home Phone [...] Team Providers + +------+ + | Care Plumbing Technician Name | Role | Phone | [...] 11/23/ | Documentati | [facility] | Lab, Gi Procedure | Medical Records | | 2018 | on | [place] [address] | | Review | | | | [address] [facility] for | | | | | | Health and Healing, | | | | | | Building [address] | | | | | | [place], [place] | | | | | | [address] | | | | | | [phone] | | | +--------+ + + + [...] | | | | uled | | [place], [place] | | | | | | [address] | | | | | | [phone] | | | | | | | | +--------+ + + + + | 12/01/ | Video/TeleH | Pain Management | Florencio Lockett, | | | 2019 | ealth-Sched | | PhD [address] | | | | uled | | [place], [place] | | | | | | [address] | | | | | | [phone] | | | | | | | | +--------+ + + + + | 01/06/ | Office | Plastic Surgery | Kuldip Harrell MD | | | 2020 | Visit | | [address] | | | | | | [place], [place] | | | | | | [address] | | | | | | [phone] | | | | | | | | +--------+ + + + + documented as of this encounter Visit Diagnoses Not on filedocumented in this encounter"
--- OUTSIDE RECORDS SUMMARY | ~2019-11-17 | XMS | Encounter Summary ---
Demographics + + + | Address | [address] | | | [place] [address] | + + + | Home Phone [...] Team Providers + +------+ + | Care Laundry Technician Name | Role | Phone | [...] | 2017 | Encounter | Center at [facility] [address] | [address] | RE: RE: results | | | | [address] [place] | M[place], | | | | | for Health and | [place] [address] | | | | | Healing, Building [address] | [phone] | | | | | [place], [place] | | | | | | [address] | | | | | | [phone] | | | +--------+ + + + [...] | | | | uled | | [place], [place] | | | | | | [address] | | | | | | [phone] | | | | | | | | +--------+ + + + + | 12/01/ | Video/TeleH | Pain Management | Florencio Lockett, | | | 2019 | ealth-Sched | | PhD [address] | | | | uled | | [place], [place] | | | | | | [address] | | | | | | [phone] | | | | | | | | +--------+ + + + + | 01/06/ | Office | Plastic Surgery | Kuldip Harrell MD | | | 2020 | Visit | | [address] | | | | | | [place] | | | | | | [address] | | | | | | [phone] | | | | | | | | +--------+ + + + + documented as of this encounter Visit Diagnoses Not on filedocumented in this encounter"
--- OUTSIDE RECORDS SUMMARY | ~2019-11-17 | XMS | Encounter Summary ---
Demographics + + + | Address | [address] | | | [place] [address] | + + + | Home Phone [...] Team Providers + +------+ + | Care Consultant Rn Name | Role | Phone | + [...] | Pain | Diagnoses | Petcu, | Payroll Supervisor Psych | | | | Management | Morbid | Aura, ACNP | [facility] [address] | | | | | obesity | [address] | | | | | (HCC) | [facility] | [facility] | | | | | Diabetes | Rd | Health and | | | | | mellitus | [facility] [place] | Healing, | | | | | treated with | [address] | Building | | | | | oral | Phone: | 1,15th Floor | | | | | medication | [phone] | [place], [place] | | | | | (HCC) | Fax: | [address] | | | | | Hypertension | [phone] | Phone: | | | | | , | | [phone] | | | | | unspecified | | Fax: | | | | | type | | [phone] | | | | | Asthma, | [...] 02/05/ | Office | Pain [facility] at [facility] | Florencio Lockett, | Morbid obesity with | | 2017 | Visit | [address] | PhD [address] | BMI of 50.0-59.9, | | | | Center for Health | [place], [place] | adult ([facility]) (Primary | | | | and Healing, | [address] | Dx); Generalized | | | | | [phone] | anxiety disorder; | | | | Floor [place], [place] | | Major depressive | | | | [address] | | disorder, recurrent, | | | | [phone] | | moderate ([facility]); | | | | | | Diabetes mellitus | | | | | | treated with oral | | | | | | medication ([facility]); | | | | | | Hypertension, [...] De Jesus Anna : 1990 Medical Record: [id number] Age:27 y.o. Weight: 400 lbs BMI: 54 Chief Complaint: Morbid obesity with BMI 50.0-59.9 Date of Service: 02/05/2018 Identifying Information: Maria De Jesus Anna is a 27 y.o. female who lives with her , daughter and step-son in [place], [place]. She was referred for psychological evaluation [...] school. 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 Fo r enjoyment the patient does family [...] basic material needs were met. She graduated [employer] school on time but described limited socialization [...] her consistency with following all of the web worker's recommend ations and she needs to review the material in the Bariatric Surgery Notebook. 4. She is urged to establish a clear routine for physical activity that she can begin now and continue after surgery. 5. She needs to follow-up with me via [email or web address] to report on her progress with the above rec ommendations. 6. She is urged to participate in a Bariatric Surgery Support Group. Total time I spent was approximately 50 minutes cgbr-np-iqcg with the patient and approxima tely 1 hour 50 minutes of djt-ocqr-eo-face testing, interpreting and synthesizing results. Florencio Lockett, PhD [facility] 15TH FLOOR [address] [facility] Mail Code: [address] [place] [address] documented in this en counter Plan of Treatment +--------+ + + + + | Date | Type | Specialty | Care Team | Description | +--------+ + + + + | 11/17/ | Video/TeleH | Pain Management | Florencio Lockett, | | | 2019 | ealth-Sched | | PhD [address] | | | | uled | | [place], [place] | | | | | | [address] | | | | | | [phone] | | | | | | | | +--------+ + + + + | 12/01/ | Video/TeleH | Pain Management | Florencio Lockett, | | | 2019 | ealth-Sched | | PhD [address] | | | | uled | | [place], [place] | | | | | | [address] | | | | | | [phone] | | | | | | | | +--------+ + + + + | 01/06/ | Office | Plastic Surgery | Kuldip Harrell MD | | | 2020 | Visit | | [address] | | | | | | [place], [place] | | | | | | [address] | | | | | | [phone] | | | | | | | [...]
--- OUTSIDE RECORDS SUMMARY | ~2019-11-17 | XMS | Encounter Summary ---
Demographics + + + | Address | [address] | | | [place] [address] | + + + | Home Phone [...] Team Providers + +------+ + | Care Slot Attendant Name | Role | Phone | + +------+ + | Alisha Stovall PA-C | PCP | | + +------+ + Encounter Details +--------+ + + + + | Date | Type | Department | Care Team | Description | +--------+ + + + + | 12/28/ | Telephone | Digestive Health | Kenan Norton, | | | 2019 | | [address] | [address] | | | | | Ave Mailcode: CH4S | [facility] [place] | | | | | [facility] | [address] | | | | | and [place], | [phone] | | | | | [facility] | | | | | | Floor [place], [place] | | | | | | [address] | | | | | | [phone] | | | +--------+ + + + [...] | | | | uled | | [place], [place] | | | | | | [address] | | | | | | [phone] | | | | | | | | +--------+ + + + + | 12/01/ | Video/TeleH | Pain Management | Florencio Lockett, | | | 2019 | ealth-Sched | | PhD [address] | | | | uled | | [place], [place] | | | | | | [address] | | | | | | [phone] | | | | | | | | +--------+ + + + + | 01/06/ | Office | Plastic Surgery | Kuldip Harrell MD | | | 2020 | Visit | | [address] | | | | | | [place] | | | | | | [address] | | | | | | [phone] | | | | | | | | +--------+ + + + + documented as of this encounter Visit Diagnoses Not on filedocumented in this encounter"
--- OUTSIDE RECORDS SUMMARY | ~2019-11-17 | XMS | Encounter Summary ---
Demographics + + + | Address | [address] | | | [place] [address] | + + + | Home Phone [...] Team Providers + +------+ + | Care Sound Technician Supervisor Name | Role | Phone | [...] | 2019 | | GEM Shea | [address] | [address]STR[address] BYPASS, | | | | Rd [facility] | [place], [place] | | | | | Hospital Admitting | [address] | | | | | Desk Located on the | [phone] | | | | | 9th floor | | | | | | [place], [place] | | | | | | [address] | | | +--------+---------+ + + + [...] Watson ACNP - 09/26/2018 10:36 AM PDT [facility] RED SURGERY INPATIENT DISCHARGE SUMMARY [...] or Kefir, [place] Yogurt, and Chioban i Turkish Yogurt are common brands with beneficial probiotics. [...] are available over the counter at most [facility] stores. Nausea/Vomiting/Difficulty Swallowing Nausea/Vomiting/Difficulty swallowing: Could be [...] hours per your instructions. Some medications, like [place]ro[place], have Tylenol in it. Make sure you [...] (PCP) as this clinic does not provide [facility] chronic pain management services. When [...] hours by calling the surgery office at [phone]. - After hours, weekends and holidays, you may call the hospital box closing machine operator at [phone] an d have the button station worker Red Surgery Team paged. Destination Home Condition [...] Phone Center 10/02/2018 1:30 PM Indu Pisano [facility] [phone] FOOD AND N UT 10/02/2018 2:20 PM Mehreen Bee [facility] [phone] [facility] 10/26/2018 8:30 AM Kenan Norton [facility] [phone] [facility] 10/26/2018 9:00 AM Lisa Medina [facility] [phone] FOOD AND NUT 12/21/2018 10:30 AM Pedro Sánchez [facility] [phone] FOOD AND N UT 12/21/2018 11:20 AM Jody Watson [facility] [phone] [facility] Discharging Physician: DIEGO Plascencia Attending Physician: Kenan Norton MD [facility] Red Surgery Pager# [phone] 10:37 AM 09/26/2018 documented in this enco [...] full liquid diet today - Seen by cell coverer yesterday - dc MIVF - Encourage ambulation, [...] screening protocols as defined by the [facility] bariatric program including medic al, psychiatric and [...] Doxycycline Rash Percocet [Oxycodone-Acetaminophen] Nausea and Vomiting Fillmore Oil Hives and Nausea and Vomiting Seroquel [Quetiapine Fumarate] Suicidal Ideation Social History Narrative Lexiscan Myocardial Perfusion Study ([facility]) 02/19/2018 (see media): CHEST 2 VIEWS [...] | | | | uled | | [place], [place] | | | | | | [address] | | | | | | [phone] | | | | | | | | +--------+ + + + + | 12/01/ | Video/TeleH | Pain Management | Florencio Lockett, | | | 2019 | [facility] | | PhD [address] | | | | uled | | [place], [place] | | | | | | [address] | | | | | | [phone] | | | | | | | | +--------+ + + + + | 01/06/ | Office | Plastic Surgery | Kuldip Harrell MD | | | 2019 | Visit | | [address] | | | | | | [place], [place] | | | | | | [address] | | | | | | [phone] | | | | | | | [...] DICKSON | [address] | [place], [place] | | | TUSHAR KING OF CARE | [address] | [address] | | | TESTS | | | [...] | 60 - 99 mg/dL | [facility] - | | | GLUCOSE, | | [...] FORMAN | [address] | [place], [place] | | | TUSHAR KING OF STACEY | [address] | [address] | | | TESTS | | | [...] MARQUAM | [address] | [place], [place] | | | TUSHAR KING OF CARE | [address] | [address] | | | TESTS | | | [...] + + + + | [facility] | [address] | [place], [place] | | | TUSHAR KING OF CARE | [address] | [address] | | | TESTS | | | [...] FORMAN | [address] | [place], [place] | | | T[place]AR KING OF [place] | [address] | [address] | | | TESTS | | | [...] MARQUAM | [address] | [place], [place] | | | CHRISTINE POINT OF CARE | [address] | [address] | | | TESTS | | | | + + + + + EGD (ESOPHAGOGASTRODUODENOSCOPY) (09/24/2018 3:01 PM PDT) + + + | Narrative | Performed At | + + + | Kenan Norton MD 09/24/2018 3:26 PM Date of Procedure: | | | 09/24/18 Primary Surgeon: Kenan Norton MD Co Surgeon or | | | optometrist assistant: Wendy Rawls MD; MIS Fellow Preoperative [...] | Anesthesia: General endotracheal anesthesia Staff: Codi ENGINE OILER: | | | Heather Zamorano Complications: none [...] limb and a | | | 60mm Kahite stapler with white load was fired to create a | | | qnnb-wn-lnjl jejunojejunostomy. The anastamosis was confirmed to | | | be widely patent and hemostatic. The common enterotomy was closed | | | by firing an Kahite 60mm stapler with white load across the [...] was | | | entered. The 60mm Kahite stapler with blue load was placed and | | | fired transversely to start gastric pouch formation. The Kahite | | | was then fired longitudinally towards the angle of His. Dissection | | | was performed retrogastric to connect posterior and anterior | | | dissection planes and ensure adequate fundus exclusion. Additional | | | fires of the Kahite stapler were performed with blue loads to [...] | | | gastric pouch to the norene limb. We had good alignment and no undue | | | tension. We then made an enterotomy on the anterior gastric pouch at | | | the medial aspect of the pouch and a corresponding enterotomy on | | | the small bowel. The 60mm Kahite stapler with blue load was then | [...] Kenan Norton MD, MS | | | Traffic Enumerator [facility] Bariatric Surgery | | + + + LAPAROSCOPIC CHOLECYSTECTOMY (09/24/2018 3:01 PM PDT) + + + | Narrative | Performed At | + + + | Kenan Norton MD 09/24/2018 3:26 PM Date of Procedure: | | | 09/24/18 Primary Surgeon: Kenan Norton MD Co Surgeon or | | | optometrist assistant: Wendy Rawls MD; MIS Fellow Preoperative [...] | Anesthesia: General endotracheal anesthesia Staff: Codi ENGINE OILER: | | | Heather Zamorano Complications: none [...] limb and a | | | 60mm Kahite stapler with white load was fired to create a | | | exut-mo-hsxj jejunojejunostomy. The anastamosis was confirmed to | | | be widely patent and hemostatic. The common enterotomy was closed | | | by firing an Kahite 60mm stapler with white load across the [...] was | | | entered. The 60mm Kahite stapler with blue load was placed and | | | fired transversely to start gastric pouch formation. The Kahite | | | was then fired longitudinally towards the angle of His. Dissection | | | was performed retrogastric to connect posterior and anterior | | | dissection planes and ensure adequate fundus exclusion. Additional | | | fires of the Kahite stapler were performed with blue loads to [...] | | the small bowel. The 60mm Kahite stapler with blue load was then | [...] Kenan Norton MD, MS | | | Traffic Enumerator [facility] Bariatric Surgery | | + + + LAPAROSCOPIC GASTRIC BYPASS AND NOREEN-EN-Y GASTROENTEROSTOMY WITH NOREEN LIMB 150 CM OR LESS ( 09/24/2018 3:01 PM PDT) + + + | Narrative | Performed At | + + + | Kenan Norton MD 09/24/2018 3:26 PM Date of Procedure: | | | 09/24/18 Primary Surgeon: Kenan Norton MD Co Surgeon or | | | optometrist assistant: Wendy Rawls MD; MIS Fellow Preoperative [...] | Anesthesia: General endotracheal anesthesia Staff: Codi ENGINE OILER: | | | Heather Zamorano Complications: none [...] limb and a | | | 60mm Kahite stapler with white load was fired to create a | | | orwj-aw-lnhg jejunojejunostomy. The anastamosis was confirmed to | | | be widely patent and hemostatic. The common enterotomy was closed | | | by firing an Kahite 60mm stapler with white load across the [...] was | | | entered. The 60mm Kahite stapler with blue load was placed and | | | fired transversely to start gastric pouch formation. The Kahite | | | was then fired longitudinally towards the angle of His. Dissection | | | was performed retrogastric to connect posterior and anterior | | | dissection planes and ensure adequate fundus exclusion. Additional | | | fires of the Kahite stapler were performed with blue loads to [...] | | the small bowel. The 60mm Kahite stapler with blue load was then | [...] | | of assistants at surgery in [facility] when qualified | | | residents are [...] Kenan Norton MD, MS | | | Traffic Enumerator [facility] Bariatric Surgery | | + + + [...] PATHOLOGY | Jane on | | | [facility] | | | 09/26/2018 at | | | [facility] | | | 12:10 PM | | | MD Jane, PhD | | | | | | | | | | | | PathologistPathology, | | | | | | [facility] | | | | | | University [...] number | | | | | | [id number].A. Abdominal, | | | | | | [...] and | | | | | | customer care representative sections | | | | | | from the fundus and body | | | | | | are submitted.A1, | | | | | | cystic duct margin en | | | | | | face, customer care representative | | | | | | [...] + + | Performing | Address | City/State/[facility] Cancer Centercode | Phone Number | | Organization | | | | + + + + + | [facility] | [address] | [place] [address] | | | PATHOLOGY | [address] [...] | 60 - 99 mg/dL | [facility] - | | | GLUCOSE, | | [...] FORMAN | [address] | [place], [place] | | | CHRISTINE POINT OF CARE | [address] | [address] | | | TESTS | | | [...] MARQUAM | [address] | [place], [place] | | | TUSHAR KING OF STACEY | [address] | [address] | | | TESTS | | | [...] | 1,000 mg 1,000 mg, oral, EVERY | | 8:48 | | | | | HOURS [...] | | | 6 HOURS NEEDED, Starting Mon | | AM [...] | | | Mon09/24/18 at 2358, Until Wed | | | 09/26/18 at 1947, CBG less than 70 | | | [...]
--- OUTSIDE RECORDS SUMMARY | ~2019-11-17 | XMS | Encounter Summary ---
Demographics + + + | Address | [address] | | | [place] [address] | + + + | Home Phone [...] Team Providers + +------+ + | Care Seating Captain Name | Role | Phone | + +------+ + | Alisha Stovall PA-C | PCP | | + +------+ + Encounter Details +--------+ + + + + | Date | Type | Department | Care Team | Description | +--------+ + + + + | 11/23/ | MyChart | Digestive Health | Jody Watson ACNP | RE: shanel | | 2018 | Encounter | [facility] at [facility] [address] | [address] | | | | | [address] [facility] | [address], | | | | | for Health and | [place] [address] | | | | | [facility], [facility] [address] | [phone] | | | | | [place], [place] | | | | | | [address] | | | | | | [phone] | | | +--------+ + + + [...] | | | | uled | | [place], [place] | | | | | | [address] | | | | | | [phone] | | | | | | | | +--------+ + + + + | 12/01/ | Video/TeleH | Pain Management | Florencio Lockett, | | | 2019 | ealth-Sched | | PhD [address] | | | | uled | | [place], [place] | | | | | | [address] | | | | | | [phone] | | | | | | | | +--------+ + + + + | 01/06/ | Office | Plastic Surgery | Kuldip Harrell MD | | | 2019 | Visit | | [address] | | | | | | [place], [place] | | | | | | [address] | | | | | | [phone] | | | | | | | | +--------+ + + + + documented as of this encounter Visit Diagnoses Not on filedocumented in this encounter"
--- OUTSIDE RECORDS SUMMARY | ~2019-11-17 | XMS | Encounter Summary ---
Demographics + + + | Address | [address] | | | [place] [address] | + + + | Home Phone | | + + + | Preferred Language | Unknown | + + + | Marital Status | | + + + | Rastafarian Affiliation | Unknown | + + + | Race | Unknown | + + + | Ethnic Group | Unknown | + + + Author + + + | Author | [facility] | | | and [place] | + + + | Organization | [facility] | | [...] [place], | | | | | [place] [address] | | + + + + + Care Team Providers + +------+ + | Care Catalogue And Special Products Manager Name | Role | Phone | [...] + + | 07/23/ | Telephone | [facility] | Katheryn Hammonds DO | Advice Only | | 2019 | | CARDIOLOGY [place] | [address] | ([employer] monitor | | | | [address] | [place], [place] | study) | | | | [place], [place] | [id number] | | | | | [address] | | | | | | [phone] | | | +--------+ + + + [...] Miscellaneous Notes Telephone Encounter - Nanette Carroll, Shellfish Dredge Operator - 07/24/2019 1:17 PM PDTReceived phone call from Gill @ [employer] to advise patient ended study early stating [...] [place] | | | | | | [address] | | | | | | [phone] | | | | | | | | +--------+---------+ + + + | 12/01/ | Office | Cardiology | Nadege Cahvez | | 2019 | Visit | | [address] | | | | | | [address] | | | | | | [place] [address] | | | | | | [phone] | | | | | | | | +--------+---------+ + + + documented as of this encounter Visit Diagnoses Not on filedocumented in this encounter
--- OUTSIDE RECORDS SUMMARY | ~2019-11-17 | XMS | Encounter Summary ---
Demographics + + + | Address | [address] | | | [place] [address] | + + + | Home Phone [...] Providers + +------+ + | Care Assistant Professor Of Biochemistry Name | Role | Phone | + [...] [place] | | | | | [facility] | [address] | | | | | Hospital Admitting | [place], [place] | | | | | Desk Located on the | [address] | | | | | 9th floor | [phone] | | | | | [place], [place] | | | | | | [address] | Heather Zamorano CRNA | | | | | | [address] | | | | | | [place], | | | | | | [place] [address] | | | | | | [phone] | | | | | | | [...] g; None; No; Positive; | Heather Zamorano, ARTIST COLOR SEPARATION | Brii Pulido RN | | IV [...] [address] | | | | ray | | [place], [place] | | | | | | [address] | | | | | | [phone] | | | | | | | | +--------+ + + + + | 12/01/ | Video/TeleH | Pain Management | Florencio Lockett G, | | | 2019 | ealth-Sched | | PhD [address] | | | | uled | | [place], [place] | | | | | | [address] | | | | | | [phone] | | | | | | | | +--------+ + + + + | 01/06/ | Office | Plastic Surgery | Kuldip Harrell MD | | | 2019 | Visit | | [address] | | | | | | [place], [place] | | | | | | [address] | | | | | | [phone] | | | | | | | [...] PM PDT | | | | | 6/3/19 at 1505, Until Mon09/24/18 | | | [...] | | | ONCE, 1 dose, Starting Mon09/24/18 | | PM PDT | | | | | at 1046, Until Mon09/24/18 at | | | | | [...] | +---+---+ + +-------+ +--------+---+---+ | glycopyrrolate (ROBBIJUUL) | Given | 09/25/19 | 0.4 mg [...] | | | | | CONTINUOUS, Starting 09/24/18 | anesthes | PM PDT | | [...] | | | 09/24/18 at 1219, Until Mon09/24/18 | | | | | [...] | | | 09/24/18 at 1445, Until 09/24/18 | | | | | [...] | | | 09/24/18 at 1219, Until Mon09/24/18 | | | | | | | at 1512 | | | | | | + +---------+ +--------+---+---+ +---+---+ | | | +---+---+ + +-------+ +-------+---+---+ | rocuronium (ZEMURON) injection | Given | 09/25/19 | 10 mg | | | | intravenous, INTRAPROCEDURE PRN, | | 19 2:02 | | | | | Starting Mon09/24/18 at 1239, | | PM PDT | [...]
--- OUTSIDE RECORDS SUMMARY | ~2019-11-17 | XMS | Encounter Summary ---
Demographics + + + | Address | [address] | | | [place] [address] | + + + | Home Phone | | + + + | Preferred Language | Unknown | + + + | Marital Status | | + + + | Tenriism Affiliation | Unknown | + + + | Race | Unknown | + + + | Ethnic Group | Unknown | + + + Author + + + | Author | [facility] | | | and [place] | + + + | Organization | [facility] | | | [...] [place], | | | | | [place] [address] | | + + + + + Care Team Providers + +------+ + | Care Elementary Classroom Teacher Name | Role | Phone | [...] and without | [address], [address] | [address] | | | | | status | [place], | Phone: | | | | | migrainosus | [place] [address] | [phone] | | | | | Procedures | Phone: | Fax: | | | | | MRI Brain w | [phone] | [phone] | | | | | wo Contrast | Fax: | | | | | | | [phone] | | +--------+--------+ + + + + [...] and without | [address], [address] | [address] | | | | | status | [place], | Phone: | | | | | migrainosus | [place] [address] | [phone] | | | | | Procedures | Phone: | Fax: | | | | | MRI Brain w | [phone] | [phone] | | | | | wo Contrast | Fax: | | | | | | | [phone] | | +--------+--------+ + + + + [...] | | [place], [place] | [place] [address] | migrainosus | | | | [address] | [phone] | | | | | [phone] | | | +--------+ + + + [...] 0 | 07/28/19 | | | (MYCOSTATIN) [id number] | | | | 19 | 9 [...] [place] | | | | | | [address] | | | | | | [phone] | | | | | | | | +--------+---------+ + + + | 12/01/ | Office | Cardiology | Kathy Nadege | | | 2020 | Visit | | [address] | | | | | | [address] | | | | | | [place] [address] | | | | | | [phone] | | | | | | | [...]
--- OUTSIDE RECORDS SUMMARY | ~2019-11-17 | XMS | Encounter Summary ---
Demographics + + + | Address | [address] | | | [place] [address] | + + + | Home Phone | | + + + | Preferred Language | Unknown | + + + | Marital Status | | + + + | Congregation Affiliation | Unknown | + + + | Race | Unknown | + + + | Ethnic Group | Unknown | + + + Author + + + | Author | [facility] | | | and [place] | + + + | Organization | [facility] | | [...] [place], | | | | | [place] [address] | | + + + + + Care Team Providers + +------+ + | Care Hoisting Machine Operator Name | Role | Phone | + +------+ + | Alisha Stovall | PCP | | | PA-C | | | + +------+ + Reason for Visit +--------+--------+ + | Reason | Onset | Comments | | | Date | | +--------+--------+ + | Other | 11/12/ | rescheduling existing appt | | | 2019 | | +--------+--------+ + Encounter Details +--------+ + + + + | Date | Type | Department | Care Team | Description | +--------+ + + + + | 11/12/ | Telephone | [facility] | Katheryn Hammonds DO | Other (rescheduling | | 2019 | | CARDIOLOGY [place] | [address] | existing appt) | | | | [address] | [place], [place] | | | | | [place], [place] | [address] | | | | | [address] | | | | | | [phone] | | | +--------+ + + + [...] this encounter Miscellaneous Notes Telephone Encounter - Reena Lee - 11/13/2019 3:39 PM PDTRescheduled patient appt from Dr Hammonds 11/25 to JENIFFER Chamorro in the [place] location 12/01. Patient toy modid that the medications that were prescribed at her last visit, still have not been receiv ed. Sending message to GINETTE to follow up with Maria De Jesus regarding this documented in this encounter Plan of Treatment +--------+---------+ + + + | Date | Type | Specialty | Care Team | Description | +--------+---------+ + + + | 11/18/ | Office | Neurology | Shirley Murdock NP | | 2019 | Visit | | [address] [place] [address] | | | | | | [place] | | | | | | [address] | | | | | | [phone] | | | | | | | | +--------+---------+ + + + | 12/01/ | Office | Cardiology | Nadege Chavez | | 2019 | Visit | | [address] | | | | | | [address] | | | | | | [place] [address] | | | | | | [phone] | | | | | | | | +--------+---------+ + + + documented as of this encounter Visit Diagnoses Not on filedocumented in this encounter"
--- OUTSIDE RECORDS SUMMARY | ~2019-11-17 | XMS | Encounter Summary ---
Demographics + + + | Address | [address] | | | [place] [address] | + + + | Home Phone [...] Team Providers + +------+ + | Care Windows Desktop Support Name | Role | Phone | + [...] | | [address] | [facility] [place] | | | | | for Health and | [address] | | | | | Healing, [address] | [phone] | | | | | [place], [place] | | | | | | [address] | | | | | | [phone] | | | +--------+ + + + [...] | | | | uled | | [place], [place] | | | | | | [address] | | | | | | [phone] | | | | | | | | +--------+ + + + + | 12/01/ | Video/TeleH | Pain Management | Florencio Lockett, | | | 2019 | ealth-Sched | | PhD [address] | | | | uled | | [place], [place] | | | | | | [address] | | | | | | [phone] | | | | | | | | +--------+ + + + + | 01/06/ | Office | Plastic Surgery | Kuldip Harrell MD | | | 2020 | Visit | | [address] | | | | | | [place], [place] | | | | | | [address] | | | | | | [phone] | | | | | | | | +--------+ + + + + documented as of this encounter Visit Diagnoses Not on filedocumented in this encounter"
--- OUTSIDE RECORDS SUMMARY | ~2019-11-17 | XMS | Encounter Summary ---
Demographics + + + | Address | [address] | | | [place] [address] | + + + | Home Phone [...] Team Providers + +------+ + | Care Home Teaching Grades 9 Thru 12 Teacher Name | Role | Phone | [...] | | | | cardiovascul | [address]AN[address] | | | | | | ar exam | [address] | | | | | | Chest pain, | [place], [place] | | | | | | unspecified | [address] | | | | | | type Pedal | Phone: | | | | | | edema | [phone] | | | | | | Procedures | Fax: | | | | | | TRANSTHORACI | [phone] | | | | | | C [...] obesity | [address] | PA-C [address] | | | | | ([facility]) | [address] | [address] | | | | | Abnormal ECG | Rd | [facility] [place] | | | | | | [facility] [place] | [address] | | | | | Hypertension | [address] | Phone: | | | | | , | Phone: | [phone] | | | | | unspecified | [phone] | Fax: | | | | | type | Fax: | [phone] | | | | | Procedures | [phone] | | | | | | CONSULT [...] | 2018 | Visit | Preventive at [facility] | SHANICE [address] | exam (Primary Dx); | | | | [address] | [address] [place], | Chest pain, | | | | Center for [facility] | [place] [address] | unspecified type; | | | | and Healing, | [phone] | Pedal edema | | | | [address] | | | | | | [place], [place] | | | | | | [address] | | | | | | [phone] | | | +--------+---------+ + + + [...] recent CV Tests: Lexiscan Myocardial Perfusion Study ([facility]) 02/19/2018 (see media): Echocardiogram ([facility]) 02/22/2018: CHEST 2 VIEWS 02/06/2018: HISTORY: [...] Reports anxiety - no medications but sees [email or web address] thertiffanie aliceat. . Heme/Lymphatic: Denies bleeding disorder, [...] calculator (one point for each "yes" answer) http://www.mdcalc.com/hhaheyi-ezffllw-gcry-eldhk-emq-uoxtfghml-risk/ A. Elevated risk surgery?: yes B. Ischemic [...] referring provider/surgeon DIEGO Plascencia CARDIOLOGY - PREVENTIVE [address] Mailcode: [id number] [facility] [place] [address] documented in t his encounter Plan of Treatment +--------+ + + + + | Date | Type | Specialty | Care Team | Description | +--------+ + + + + | 11/17/ | Video/TeleH | Pain Management | Florencio Lockett, | | | 2019 | ealth-Sched | | PhD [address] | | | | uled | | [place], [place] | | | | | | [address] | | | | | | [phone] | | | | | | | | +--------+ + + + + | 12/01/ | Video/TeleH | Pain Management | Florencio Lockett, | | | 2019 | ealth-Sched | | PhD [address] | | | | uled | | [place], [place] | | | | | | [address] | | | | | | [phone] | | | | | | | | +--------+ + + + + | 01/06/ | Office | Plastic Surgery | Kuldip Harrell MD | | | 2019 | Visit | | [address] | | | | | | [place], [place] | | | | | | [address] | | | | | | [phone] | | | | | | | [...] Note | + + | Service Account, [employer] Res In Interface - 02/06/2018 5:07 PM [...]
--- OUTSIDE RECORDS SUMMARY | ~2019-11-17 | XMS | Encounter Summary ---
Demographics + + + | Address | [address] | | | [place] [address] | + + + | Home Phone [...] Team Providers + +------+ + | Care Finisher Hand Name | Role | Phone | + +------+ + | Alisha Stovall PA-C | PCP | | + +------+ + Encounter Details +--------+ + + + + | Date | Type | Department | Care Team | Description | +--------+ + + + + | 06/23/ | Recovery Engineer | Digestive Health | Kenan Norton, | | | 2019 | | [facility] at [facility] [address] | MD [address] | | | | | [address] [place] | [facility] [place] | | | | | for Health and | [address] | | | | | Healing, Building [address] | [phone] | | | | | [place], [place] | | | | | | [address] | | | | | | [phone] | | | +--------+ + + + [...] | | | | uled | | [place], [place] | | | | | | [address] | | | | | | [phone] | | | | | | | | +--------+ + + + + | 12/01/ | Video/TeleH | Pain Management | Florencio Lockett, | | | 2019 | ealth-Sched | | PhD [address] | | | | uled | | [place], [place] | | | | | | [address] | | | | | | [phone] | | | | | | | | +--------+ + + + + | 01/06/ | Office | Plastic Surgery | Kuldip Harrell MD | | | 2020 | Visit | | [address] | | | | | | [place] | | | | | | [address] | | | | | | [phone] | | | | | | | | +--------+ + + + + documented as of this encounter Visit Diagnoses Not on filedocumented in this encounter"
--- OUTSIDE RECORDS SUMMARY | ~2019-11-17 | XMS | Encounter Summary ---
Demographics + + + | Address | [address] | | | [place] [address] | + + + | Home Phone [...] Team Providers + +------+ + | Care Patch Press Operator Name | Role | Phone [...] | | | | ray | | [place], [place] | | | | | | [address] | | | | | | [phone] | | | | | | | | +--------+ + + + + | 12/01/ | Video/TeleH | Pain Management | Florencio Lockett G, | | | 2019 | ealth-Sched | | PhD [address] | | | | uled | | [place], [place] | | | | | | [address] | | | | | | [phone] | | | | | | | | +--------+ + + + + | 01/06/ | Office | Plastic Surgery | Kuldip Harrell MD | | | 2019 | Visit | | [address] | | | | | | [place], [place] | | | | | | [address] | | | | | | [phone] | | | | | | | | +--------+ + + + + documented as of this encounter Visit Diagnoses Not on filedocumented in this encounter"
--- OUTSIDE RECORDS SUMMARY | ~2019-11-17 | XMS | Encounter Summary ---
Demographics + + + | Address | [address] | | | [place] [address] | + + + | Home Phone [...] Team Providers + +------+ + | Care Tug Hand Name | Role | Phone | [...] | 2019 | | Center at [facility] [address] | [facility] [address] | | | | | [address] [place] | [place], [place] | | | | | for [facility] and | [address] | | | | | [facility] 2 | [phone] | | | | | [place], [place] | | | | | | [address] | | | | | | | [...] | | | | uled | | [place], [place] | | | | | | [address] | | | | | | [phone] | | | | | | | | +--------+ + + + + | 12/01/ | Video/TeleH | Pain Management | Florencio Lockett, | | | 2019 | ealth-Sched | | PhD [address] | | | | uled | | [place], [place] | | | | | | [address] | | | | | | [phone] | | | | | | | | +--------+ + + + + | 01/06/ | Office | Plastic Surgery | Kuldip Harrell MD | | | 2020 | Visit | | [address] | | | | | | [place], [place] | | | | | | [address] | | | | | | [phone] | | | | | | | | +--------+ + + + + documented as of this encounter Visit Diagnoses Not on filedocumented in this encounter"
--- OUTSIDE RECORDS SUMMARY | ~2019-11-17 | XMS | Encounter Summary ---
Demographics + + + | Address | [address] | | | [place] [address] | + + + | Home Phone [...] Team Providers + +------+ + | Care Rough Carpenter Name | Role | Phone | + +------+ + | Alisha Stovall PA-C | PCP | | + +------+ + Encounter Details +--------+ + + + + | Date | Type | Department | Care Team | Description | +--------+ + + + + | 08/21/ | Abstract | Digestive Health | Clinic, Surgery | | | 2017 | | [place] [address] [address] | | | | | | [address] [facility] | | | | | | for Health and | | | | | | Healing, Building [address] | | | | | | [place], [place] | | | | | | [address] | | | | | | [phone] | | | +--------+ + + + [...] | | | | ray | | [place], [place] | | | | | | [address] | | | | | | [phone] | | | | | | | | +--------+ + + + + | 12/01/ | Video/TeleH | Pain Management | Florencio Lockett, | | | 2019 | ealth-Sched | | PhD [address] | | | | uled | | [facility] [place] | | | | | | [address] | | | | | | [phone] | | | | | | | | +--------+ + + + + | 01/06/ | Office | Plastic Surgery | Kuldip Harrell MD | | | 2019 | Visit | | [address] | | | | | | [place], [place] | | | | | | [address] | | | | | | [phone] | | | | | | | | +--------+ + + + + documented as of this encounter Visit Diagnoses Not on filedocumented in this encounter"
--- OUTSIDE RECORDS SUMMARY | ~2019-11-17 | XMS | Encounter Summary ---
Demographics + + + | Address | [address] | | | [place] [address] | + + + | Home Phone [...] | + + +---------+ + | Jeovanny eHrnández | ECON | Unknown | | + + +---------+ + Care Team Providers + +------+ + | Care Material Requirements Worker Name | Role | Phone | [...] | | [address] | [facility] [place] | | | | | for Health and | [address] | | | | | Healing, [address] | [phone] | | | | | [place], [place] | | | | | | [address] | | | | | | [phone] | | | +--------+ + + + [...] [place] | | | | | | [address] | | | | | | [phone] | | | | | | | | +--------+ + + + + | 12/01/ | Video/TeleH | Pain Management | Florencio Lockett, | | | 2019 | ealth-Sched | | PhD [address] | | | | uled | | [place], [place] | | | | | | [address] | | | | | | [phone] | | | | | | | | +--------+ + + + + | 09/15/ | Office | Plastic Surgery | Kuldip Harrell MD | | | 2019 | Visit | | [address] | | | | | | [place], [place] | | | | | | [address] | | | | | | [phone] | | | | | | | | +--------+ + + + + documented as of this encounter Visit Diagnoses Not on filedocumented in this encounter"
--- OUTSIDE RECORDS SUMMARY | ~2019-11-17 | XMS | Encounter Summary ---
Demographics + + + | Address | [address] | | | [place] [address] | + + + | Home Phone [...] Team Providers + +------+ + | Care District Fire Chief Name | Role | Phone | + +------+ + PCP | Unavailable | + +------+ + Encounter Details +--------+ + + + + | Date | Type | Department | Care Team | Description | +--------+ + + + + | 08/04/ | Abstract | Digestive Health | Clinic, Surgery | | | 2018 | | Center at [facility] [address] | | | | | | [facility] | | | | | | for Health and | | | | | | Healing, [address] | | | | | | [place], [place] | | | | | | [address] | | | | | | [phone] | | | +--------+ + + + [...] | | | | ray | | [place], [place] | | | | | | [address] | | | | | | [phone] | | | | | | | | +--------+ + + + + | 12/01/ | Video/TeleH | Pain Management | Florencio Lockett, | | | 2019 | ealth-Sched | | PhD [address] | | | | uled | | [place], [place] | | | | | | [address] | | | | | | [phone] | | | | | | | | +--------+ + + + + | 01/06/ | Office | Plastic Surgery | Kuldip Harrell MD | | | 2019 | Visit | | [address] | | | | | | [place], [place] | | | | | | [address] | | | | | | [phone] | | | | | | | | +--------+ + + + + documented as of this encounter Visit Diagnoses Not on filedocumented in this encounter"
--- OUTSIDE RECORDS SUMMARY | ~2019-11-17 | XMS | Encounter Summary ---
Demographics + + + | Address | [address] | | | [place] [address] | + + + | Home Phone [...] Team Providers + +------+ + | Care Furnace Unloader Name | Role | Phone | + [...] | | | | geal reflux | [facility] | [place] for | | | | | disease, | Rd | Health and | | | | | esophagitis | [facility] [place] | Healing, | | | | | presence not | [address] | [address] | | | | | specified | Phone: | [place], [place] | | | | | Procedures | [phone] | [address] | | | | | CONSULT TO | Fax: | Phone: | | | | | GI PROCEDURE | [phone] | [phone] | | | | | UNIT: | [...] | | | | 24 HR PH UT | | | | | | | ESOPHAGEAL | | | | | | | MOTILITY | | | | | | | STUDY | | | | | | | W/INTERP AND | | | | | | | REPORT UT | | | | | | | G-ESOPH | | | | | | | REFLX TST | | | | | | | W/ELECTROD | | | +--------+--------+ + + + + Encounter Details +--------+ + + + + | Date | Type | Department | Care Team | Description | +--------+ + + + + | 01/11/ | Hospital | [facility] | Nurse, Gip [address] | | | 2018 | Encounter | [facility] [address] | [facility] | | | | | [address] [facility] for | Road [place], [place] | | | | | Health and Healing, | [address] | | | | | [address] | | | | | | [place], [place] | | | | | | [address] | | | | | | [phone] | | | +--------+ + + + [...] | | | | uled | | [place], [place] | | | | | | [address] | | | | | | [phone] | | | | | | | | +--------+ + + + + | 12/01/ | Video/TeleH | Pain Management | Florencio Lockett, | | | 2019 | ealth-Sched | | PhD [address] | | | | uled | | [place], [place] | | | | | | [address] | | | | | | [phone] | | | | | | | | +--------+ + + + + | 01/06/ | Office | Plastic Surgery | Kuldip Harrell MD | | | 2019 | Visit | | [address] | | | | | | [place], [place] | | | | | | [address] | | | | | | [phone] | | | | | | | [...] + | MRN: | [facility] | | [id number] Date: 01/11/2018Patient Name: Maria De Jesus Gonzalez #: | ENDOSCOPY | | [id number] of : 1990CSN: [id number] Type: | | | OutpatientRoom: Motility RoomProcedure: [...]
--- OUTSIDE RECORDS SUMMARY | ~2019-11-17 | XMS | Encounter Summary ---
Demographics + + + | Address | [address] | | | [place] [address] | + + + | Home Phone [...] Team Providers + +------+ + | Care Indirect Sales Representative Name | Role | Phone [...] [place] | | | | | [facility] | [address] | | | | | Hospital Admitting | [place], [place] | | | | | Desk Located on the | [address] | | | | | 9th floor | [phone] | | | | | [place], [place] | | | | | | [address] | Manuel Adam | | | | | | [address] | | | | | | [place], | | | | | | [place] [address] | | +--------+ + + + + [...] | | | | uled | | [place], [place] | | | | | | [address] | | | | | | [phone] | | | | | | | | +--------+ + + + + | 12/01/ | Video/TeleH | Pain Management | Florencio Lockett, | | | 2019 | ealth-Sched | | PhD [address] | | | | uled | | [place], [place] | | | | | | [address] | | | | | | [phone] | | | | | | | | +--------+ + + + + | 01/06/ | Office | Plastic Surgery | Kuldip Harrell MD | | | 2019 | Visit | | [address] | | | | | | [place], [place] | | | | | | [address] | | | | | | [phone] | | | | | | | [...] n/v. Airway management | | | by MSHadley Adam. Gr I view with MAC 3. [...] 7:58 | | | | | Starting Mary 05/30/19 at 0758, | | AM PST | | | | | Until Mary 05/30/19 at 1032 | | | | | | + +--------+ + +------+------+ +---+---+ | | | +---+---+ + +-------+ +-------+---+---+ | dexamethasone (DECADRON) | Given | 05/30/19 | 10 mg | | | | injection INTRAPROCEDURE PRN, | | 20 7:51 | | | | | Starting Mary 05/30/19 at 0751, | | AM PST [...] | +---+---+ + +-------+ +--------+---+---+ | glycopyrrolate (LATAUL) | Given | 05/30/19 | 0.6 mg [...]
--- OUTSIDE RECORDS SUMMARY | ~2019-11-17 | XMS | Encounter Summary ---
Demographics + + + | Address | [address] | | | [place] [address] | + + + | Home Phone [...] Providers + +------+ + | Care Senior Manager Creative Services Name | Role | Phone | + [...] Refill Request | | 2020 | | [place] [facility] [address] | [address] | (mirtazapine) | | | | [address] | [place], [place] | | | | | for Health and | [address] | | | | | [facility] 2 | | | | | | [place], [place] | | | | | | [address] | | | | | | | [...] [place] | | | | | | [address] | | | | | | [phone] | | | | | | | | +--------+ + + + + | 12/01/ | Video/TeleH | Pain Management | Florencio Lockett, | | | 2019 | ealth-Sched | | PhD [address] | | | | uled | | [place], [place] | | | | | | [address] | | | | | | [phone] | | | | | | | | +--------+ + + + + | 01/06/ | Office | Plastic Surgery | Kuldip Harrell MD | | | 2019 | Visit | | [address] | | | | | | [place], [place] | | | | | | [address] | | | | | | [phone] | | | | | | | [...]
--- OUTSIDE RECORDS SUMMARY | ~2019-11-17 | XMS | Encounter Summary ---
Demographics + + + | Address | [address] | | | [place] [address] | + + + | Home Phone [...] Team Providers + +------+ + | Care Combiner Name | Role | Phone | + [...] Pending | | Surgery | Diagnoses | [place], | [place], | | Review | | | S/P gastric | Kenan Santos MD | Kenan Santos MD | | | | | bypass | [address] | | | | | Dehydration | [address] | Ave | | | | | Nausea and | [facility] [place] | [place], [place] | | | | | vomiting, | [address] | [address] | | | | | intractabili | Phone: | Phone: | | | | | ty of | | | | | | | vomiting not | Fax: | Fax: | | | | | specified, | [phone] | [phone] | | | | | unspecified | [...] | | | | | | | GEOGRAPHIC INFORMATION SYSTEM ANALYST | | | | | | | PA | | | | | | | LAP,GASTROST | | | | | | | SAIGE,W/O TUBE | | | | | | | CONSTR PA | | | | | | | UPPER GI | | | | | | | ENDOSCOPY,DI | | | | | | | AGNOSIS PA | | | | | | | PLACE PERCUT | | | | | | | GASTROSTOMY | | | | | | | TUBE PA | | | | | | | [...] | Bariatri Surg | | | with KITCHEN SUPERVISOR | | | Surg Chh2 | Chh2 [...] 2 | | | | | | [place], | [place], [place] | | | | | | [place] | [address] | | | | | | [address] | Phone: | | | | | | Phone: | | | | | | | | Fax: | | | | | | Fax: | [phone] | | | | | | [phone] | | +--------+ + + + + + Encounter Details +--------+---------+ + + + | Date | Type | Department | Care Team | Description | +--------+---------+ + + + | 05/17/ | Office | Digestive Health | Kenan Norton, | S/P gastric bypass | | 2020 | Visit | Center at [facility] [address] | MD [address] | (Primary Dx); | | | | [address] | [place], [place] | Dehydration; Nausea | | | | for Health and | [address] | and vomiting, | | | | Healing, Building 2 | [phone] | intractability of | | | | [place], [place] | | vomiting not | | | | [address] | | specified, | | | | [phone] | | unspecified vomiting | | | | | | type; Epigastric | | | | | | pain; Morbid obesity | | | | | | ([facility]); | | | | | | Malnutrition, | | | | | | unspecified type | | | | | | ([facility]) | +--------+---------+ + + + Social History [...] documented as of this encounter Progress Notes Knean Norton MD - 05/17/2019 11:45 AM PSTFormatting [...] Laparoscopic andreia-en-y gastric bypass with cholecystectomy 09/24/2018 [facility] Dr. Norton PHYSICAL EXAMINATION: BP 126/74 | [...] signed on 05/23/2019 at 9:30 AM Kenan Norton MD. Addendum: Severe, chronic constipation Pt with [...] | | | | uled | | [place], [place] | | | | | | [address] | | | | | | [phone] | | | | | | | | +--------+ + + + + | 12/01/ | Video/TeleH | Pain Management | Florencio Lockett, | | | 2019 | ealth-Sched | | PhD [address] | | | | uled | | [place], [place] | | | | | | [address] | | | | | | [phone] | | | | | | | | +--------+ + + + + | 01/06/ | Office | Plastic Surgery | Kuldip Harrell MD | | | 2019 | Visit | | [address] | | | | | | [place], [place] | | | | | | [address] | | | | | | [phone] | | | | | | | [...]
--- OUTSIDE RECORDS SUMMARY | ~2019-11-17 | XMS | Encounter Summary ---
Demographics + + + | Address | [address] | | | [place] [address] | + + + | Home Phone [...] Team Providers + +------+ + | Care Bottom Buffer Name | Role | Phone | + [...] + + | 05/30/ | Hospital | [facility] [address] | Kenan Norton, | | | 2019 - | Encounter | [address] | [address] | | | | | [place], [place] | [place], [place] | | | 06/02/ | | [address] | [address] | | | 2019 | | [phone] | [phone] | | | | | | | [...] note might be different from adryan vann. [facility] RED SURGERY INPATIENT DISCHARGE SUMMARY Author: IVONNE [...] assist with nutrition. She was admitted to [facility] 05/30/2019 for the above list ed procedures. She tolerated the procedure well with no complications. She was kept over [facility] for observation. Her diet was [...] Take 40 mg by mouth once daily. FYUL-TDZX-GJOVR (PABA) ORAL Take 1 Dose by mouth [...] 'after hours' URGENT problems please call the [facility] paper reclaiming machine operator at and ask bianca kim the [...] to Prevent Infection", log into y our [employer] account at [email or web address]. You can enter U010 in the "[employer] L[employer] y" search box. Not on [employer]? Review the [employer] section of your After Visit Summary for directions on ho w to sign up. Current as of: April 11, 2018 Content Version: [id number] [employer]. Care instructions adapted under license by [facility] [place]. If you have questions about a medical condition or this instr uction, always ask your healthcare professional. [employer] disclaims any denise anty or liability for [...] Outstanding labs/studies: None Lucero Arias MD PhD [facility] General Surgery Red Surgery Pager # [phone] Associated attestation - Aysha Meyer MD - 06/02/2019 3:58 PM PSTI saw and evaluated the patient. I agree with the findings and the plan of care as documented in the resident s note. Aysha Meyer MD [facility] [address] [place] [phone] documented in this encounter Discharge Instructions Discharge [...] hours by calling the surgery office at [phone]. - After hours, weekends and holidays, you may call the hospital paper reclaiming machine operator at [phone] an d have the production generalist Red Surgery Team paged.Electronically signed by Lucero [...] urinary retention Discharge Instr - Procedures Nellie bYarra AGACNP - 05/30/2019 2:53 PM PST05/30/2019 1. [...] ist with nutrition. She was admitted to [facility] 05/30/2019 for the above listed procedures. Sh [...] 'after hours' URGENT problems please call the [facility] paper reclaiming machine operator at and ask bianca kim the "Red Surgery resident on-call". For chest pain, severe symptoms or difficulty breathing please call [phone] or go to your local ER. Do [...] to Prevent Infection", log into y our [employer] account at [email or web address]. You can enter U010 in the "[employer]" search box. Not on [employer] Review the [employer] section of your After Visit Summary for directions on leonel w to sign up. Current as of: April 11, 2018 Content Version: [id number] [employer]. Care instructions adapted under license by [facility] [place]. If you have questions about a medical condition or this instr uction, always ask your healthcare professional. [employer] disclaims any denise anty or liability for [...] through Care Everywhere.Feeding Tube: G eneral Info (Nicaraguan)Tube Feeding: Home (Nicaraguan)PEG (Percutaneous Endoscopic Gastrostomy): Post-op (Nicaraguan)[facility]: Gastrostomy Tube Use and Care (Nicaraguan)Indwelling Urinary Catheter Ca re: General Info (Nicaraguan)documented in this encounter Medications at Time of [...] | | | | | | | (FWVC-PQNB-BZZPT | | | | | | | [...] Doxycycline Rash Percocet [Oxycodone-Acetaminophen] Nausea and Vomiting Midland Oil Hives and Nausea and Vomiting Seroquel [...] this [facility] might be different [facility] DEPART[facility] OF SURGERY Red Surgery Admission [...] Fill and pull 06/04 in clinic. Follow-up [facility] Dr. Norton in 2 weeks. BP [...] olmos teaching complete. Lucero Arias MD PhD [facility] General Surgery Red Surgery Pager #[phone] Associated attestation - Aysha Meyer MD - 06/02/2019 4:21 PM PSTI saw and evaluated the patient. I agree with the findings and the plan of care as documented in the resident s note. Aysha Meyer MD [facility] [address] [place] [address] Kelly Baker MD - 06/01/2019 2:43 PM [...] Doxycycline Rash Percocet [Oxycodone-Acetaminophen] Nausea and Vomiting Midland Oil Hives and Nausea and Vomiting Seroquel [...] Diazepam Kelly Baker MD Chronic Pain Fellow [facility] [id number] Associated attestation - Sammi Ayala MD - [...] pain control. Rachel Ward MD MIS Fellow [id number] Lucero Ge MD - 05/31 12:28 PM [...] improved pain control. Lucero Arias MD PhD [facility] General Surgery Red Surgery Pager # [phone] Associated attestation - Kenan Norton MD - 06/02/2019 9:09 PM PSTA resident assisted with documenting this service. I saw the patient and reviewed and verified all information d ocumented by the resident, and made modifications to such information, when appropriate. Kenan Norton MD, MS Program Coordinator [facility] Bariatric Surgery documented in this encounter Plan of Treatment +--------+ + + + + | Date | Type | Specialty | Care Team | Description | +--------+ + + + + | 11/17/ | Video/TeleH | Pain Management | Florencio Lockett, | | | 2019 | ealth-Sched | | PhD [address] | | | | uled | | [place], [place] | | | | | | [address] | | | | | | [phone] | | | | | | | | +--------+ + + + + | 12/01/ | Video/TeleH | Pain Management | Florencio Lockett, | | | 2019 | ealth-Sched | | PhD [address] | | | | uled | | [place], [place] | | | | | | [address] | | | | | | [phone] | | | | | | | | +--------+ + + + + | 01/06/ | Office | Plastic Surgery | Kuldip Harrell MD | | | 2019 | Visit | | [address] | | | | | | [place], [place] | | | | | | [address] | | | | | | [phone] | | | | | | | [...] | P[facility] DEPT OF | [address] | [place], [place] | | | CARDIOLOGY | [address] | [address] | | + + + + + [...] + | [facility] | [address] | [place] [address] | | | SERVICES, CORE | [address] [...] | | | LABORATORY | | | ETHIOPIAN | | | SERVICES, | | | [...] MDRD equation recommended by the National | [facility] | | Kidney Disease Education [...] | + + + + + | [facility] | [address] | [place] [address] | | | SERVICES, [facility] | [address] | | | + + + + + X-RAY PORTABLE ABD TUBE OR CATH EVAL W CONTRAST (06/01/2019 1:25 PM PST) + + | Specimen | + + | | + + + + + | Narrative | Performed At | + + + | EXAM: TN ABD TUBE OR CATH EVAL W CONTRAST. [...] Interface - 06/01/2019 5:14 PM PST EXAM: TN ABD TUBE | | OR CATH EVAL [...] + + + + + + | QTC-BACHASTITYTT | 442 | ms | [facility] [...] + | [facility] | [address] [facility] | [place], [place] | | | CARDIOLOGY | [address] | [address] | | + + + + + [...] | | | LABORATORY | | | ETHIOPIAN | | | SERVICES, | | | [...] MDRD equation recommended by the National | [facility] | | Kidney Disease Education [...] | + + + + + | [facility] | [address] | [place] [address] | | | ADONAY SMITH | [address] [...] (H) | 70 - 99 mg/dL | [facility] - | | | GLUCOSE, | | [...] LAURIAM | [address] | [place], [place] | | | CHRISTINE POINT OF CARE | [address] | [address] | | | TESTS | | | [...] DICKSON | [address] | [place], [place] | | | TUSHAR KING OF STACEY | [facility] | [address] | | | TESTS | | | [...] + + + + + | [facility] [place] [facility] | [address] | [place], [place] | | | [facility] | [address] | [address] | | | TESTS | | | [...] | 60 mL | | | | (ALO LAZCANO) | | 20 1:04 | | | [...] | | | | | dose on Mary 05/30/19 at 1715, Until | | AM [...] | | | | | | Until 05/31/19 at 0806, | | | | | [...] 1 dose, Starting Mary | | | 2/6/20 at 1238, Until Mary 05/30/19 | | [...] | | | | ONCE, 1 dose, [facility] 05/30/19 at 0700 | | AM PST | | | | + +---------+ + +---+---+ +---+---+ | | | +---+---+ + +---------+ + +---+---+ | lactated ringers (LR) bolus | New Bag | 05/31/19 | 1,000 mL | | | | 1,000 mL 1,000 mL, intravenous, | | 20 6:25 | | | | | ONCE, 1 dose, [facility] 05/31/19 at 1845 | | PM PST [...] | | | | | NEEDED, Starting [facility] 05/30/19 at | | | [...] injection 1 dose, | | | Starting [facility] 05/30/19 at 1128, | | | Until [facility] 05/30/19 at 1136 | | + +---+ | | | + +---+ + +-------+ +------+---+---+ | ondansetron (ZOFRAN) injection | Given | 05/30/19 | 4 mg | | | | 4 mg 4 mg, intravenous, ONCE, 1 | | 20 6:53 | | | | | dose, [facility] 05/30/19 at 0700 | | AM PST [...] | | | | | dose on 05/31/19 at 0900, | | PM PST | [...]
--- OUTSIDE RECORDS SUMMARY | ~2019-11-17 | XMS | Encounter Summary ---
Demographics + + + | Address | [address] | | | [place] [address] | + + + | Home Phone [...] Team Providers + +------+ + | Care Scuba Diving Instructor Name | Role | Phone | [...] | 2019 | Visit | Center at [facility] [address] | [address] | (Primary Dx); | | | | [address] [place] | Sammi Hernandez [place], | Anxiety; | | | | for Health and | [place] [address] | Dehydration; Morbid | | | | Healing, [address] | [phone] | obesity (HCC); | | | | [place], [place] | | Gastroesophageal | | | | [address] | | reflux disease, | | | | [phone] | | esophagitis presence | | | [...] from us today. States that strawberries and lithuanian yogurt and pitachioes and lunchables are the [...] Laparoscopic andreia-en-y gastric bypass with cholecystectomy 09/24/[address] [facility] [address] Norton Social History Socioeconomic History [...] file Gets together: Not on file Attends orthodoxy service: Not on file Active member of club or organization: Not on file Attends meetings of clubs or organizations: Not on file Relationship status: Not on file Other Topics Concern Not on file Social History Narrative Family History Allergies Allergies Allergen Reactions Ibuprofen Hives Benzonatate Rash Cigarette Smoke Airway Constriction Depakote [Divalproex Sodium] Suicidal Ideation Doxycycline Rash Percocet [Oxycodone-Acetaminophen] Nausea and Vomiting Woodbine Oil Hives and Nausea and Vomiting Seroquel [...] every seven days. For 12 w [facility] Indications: Vitamin D Deficiency (High Dose [...] gram oral recon soln, Drink at least 4883-4709 ml of t his prep by mouth [...] noted on report -EGD also scheduled with [facility] in December with Dr. Rahman--> think [...] directed # Gastric Ulcer Prevention -continue acid audit consultant (omeprazole) for first 3 months for prevention of ulcers and GERD. Then wean off over 2 wks. Advised to take this medication even if not experiencing symptoms . See your primary care provider for adjusting any other medications. Call if any abdominal pain, n/v/d or other issues. Pt agrees to plan and will call and/or send Nephera message if any issues. Start time 1120, end time 1320. I spent a total of 120 minutes face to face with this elliott ent. Over 50% of visit was in counseling. Extended visit: 90 mins Jody Watson, MSN, AG-ACNP, BUSINESS SUPPORT LIAISON Bariatric Surgery Nurse Practitioner [facility] | [address] | [place] | [address] | documented in this enco unter Plan of Treatment +--------+ + + + + | Date | Type | Specialty | Care Team | Description | +--------+ + + + + | 11/17/ | Video/TeleH | Pain Management | Florencio Lockett, | | | 2019 | ealth-Sched | | PhD [address] | | | | uled | | [place], [place] | | | | | | [address] | | | | | | [phone] | | | | | | | | +--------+ + + + + | 12/01/ | Video/TeleH | Pain Management | Florencio Lockett, | | | 2019 | ealth-Sched | | PhD [address] | | | | uled | | [place], [place] | | | | | | [address] | | | | | | [phone] | | | | | | | | +--------+ + + + + | 01/06/ | Office | Plastic Surgery | Kuldip Harrell MD | | 2019 | Visit | | [address] | | | | | | [place], [place] | | | | | | [address] | | | | | | [phone] | | | | | | | [...] | | | | PDT | obesity ([facility]) | results section. | | [...] | | | | PDT | obesity ([facility]) | results section. | | [...] | | | | PDT | obesity ([facility]) | results section. | | [...] | | | | PDT | obesity ([facility]) | results section. | | [...] | | | | PDT | obesity ([facility]) | results section. | | [...] | | | | PDT | obesity ([facility]) | results section. | | [...] | | | | PDT | obesity ([facility]) | results section. | | [...] | | | | PDT | obesity ([facility]) | results section. | | [...] | | | | PDT | obesity ([facility]) | results section. | | [...] REG UNIV | | | EIA | Laboratories,[facility] | | PTH - INTFC | | | | [place] [address] | | | | | | [phone].Total Immersionuplab. | | | | | | Josué [...] REG | [address] | [place], [place] | | | UNIV PTH - INTFC | | [address] | | + + + + + [...] + + | [facility] LABORATORY | [address] | [place] [address] | | | SERVICES, RULE FOR | | | | | HEALTH [...] LABORATORY | | | | | | [facility], | | | | | | [facility] | | | | | | HEALTH [...] [facility] | [address] | [place] [address] | | | SERVICES, RULE FOR | | | | | HEALTH [...] [facility] | [address] | [place] [address] | | | SERVICES, CORE | PARK [...] | + + + + + | [facility] | [address] | [place] [address] | | | SERVICES, CORE | [address] [...] (L)Comment: | 70 - 180 nmol/L | AR-ASSOC | | | WHOLE | INTERPRETIVE | [...] | | | | | determined by [facility] | | | | | | Laboratories. See | | | | | | Compliance Statement B: | | | | | | [employer]/CSPerformed | | | | | | by Exec,[address] | | | | | | [facility] | | | | | | [address] | | | | | | [phone].[employer]. | | | | | | com, [...] REG | [address] | [place], [place] | | | UNIV PTH - INTFC | | [address] | | + + + + + [...] | | | | | determined by [facility] | | | | | | Laboratories. See | | | | | | Compliance Statement B: | | | | | | [employer]/CSPerformed | | | | | | by Exec,[address] | | | | | | [facility] [place], [facility] | | | | | | [address] | | | | | | [phone].Zolvers. | | | | | | com, [...] REG | [address] | [place], [place] | | | UNIV PTH - INTFC | | [address] | | + + + + + [...] | + + + + + | [facility] | [address] | [place] [address] | | | SERVICES, CORE | SAMMI [...] | + + + + + | [facility] | [address] | [place] [address] | | | SERVICES, CORE | [address] [...] | + + + + + | [facility] | [address] | [place] [address] | | | SERVICES, SPECIAL | PARK [...] | [facility] | | considered for monitoring buttermilk drier operator glycemic control in patients with: | LABORATORY [...] | + + + + + | [facility] | [address] | [place] [address] | | | SERVICES, SPECIAL | PARK [...] [facility] | [address] | [place] [address] | | | SERVICES, [facility] | [address] | | [...] | | | LABORATORY | | | NEPALESE | | | SERVICES, | | | [...] MDRD equation recommended by the National | [facility] | | Kidney Disease Education Program. [...] [facility] | [address] | [place] [address] | | | [facility] | | | | | HEALTH [...]
--- OUTSIDE RECORDS SUMMARY | ~2019-11-17 | XMS | Encounter Summary ---
Demographics + + + | Address | [address] | | | [place] [address] | + + + | Home Phone [...] Team Providers + +------+ + | Care Head Up Operator Name | Role | Phone | [...] Bariatric Nutrition | | 2018 | | [place] [address] [address] | [address] | | | | | [facility] | [address] [place], | | | | | [facility] and | [place] [address] | | | | | [place] [address] | [phone] | | | | | [place], [place] | | | | | | [address] | | | | | | [phone] | | | +--------+ + + + [...] Lockett G, | | | 2020 | ealth-[facility] | | PhD [address] | | | | [place]arlos | | [facility] [place] | | | | | | [address] | | | | | | [phone] | | | | | | | | +--------+ + + + + | 12/01/ | Video/TeleH | Pain Management | Florencio Lockett, | | | 2019 | ealth-Sched | | PhD [address] | | | | uled | | [place], [place] | | | | | | [address] | | | | | | [phone] | | | | | | | | +--------+ + + + + | 01/06/ | Office | Plastic Surgery | Kuldip Harrell MD | | | 2019 | Visit | | [address] | | | | | | [place], [place] | | | | | | [address] | | | | | | [phone] | | | | | | | | +--------+ + + + + documented as of this encounter Visit Diagnoses Not on filedocumented in this encounter"
--- OUTSIDE RECORDS SUMMARY | ~2019-11-17 | XMS | Encounter Summary ---
Demographics + + + | Address | [address] | | | [place] [address] | + + + | Home Phone [...] Team Providers + +------+ + | Care Tax Accounting Assistant Name | Role | Phone | + +------+ + | Alisha Stovall PA-C | PCP | | + +------+ + Encounter Details +--------+ + + + + | Date | Type | Department | Care Team | Description | +--------+ + + + + | 08/15/ | Abstract | Digestive Health | Clinic, Surgery | | | 2017 | | [place] [address] [address] | | | | | | [address] [facility] | | | | | | for Health and | | | | | | Healing, [address] | | | | | | [place], [place] | | | | | | [address] | | | | | | [phone] | | | +--------+ + + + [...] | | | | ray | | [place], [place] | | | | | | [address] | | | | | | [phone] | | | | | | | | +--------+ + + + + | 12/01/ | Video/TeleH | Pain Management | Florencio Lockett, | | | 2019 | ealth-Sched | | PhD [address] | | | | uled | | [facility] [place] | | | | | | [address] | | | | | | [phone] | | | | | | | | +--------+ + + + + | 01/06/ | Office | Plastic Surgery | Kuldip Harrell MD | | | 2019 | Visit | | [address] | | | | | | [place], [place] | | | | | | [address] | | | | | | [phone] | | | | | | | | +--------+ + + + + documented as of this encounter Visit Diagnoses Not on filedocumented in this encounter"
--- OUTSIDE RECORDS SUMMARY | ~2019-11-17 | XMS | Encounter Summary ---
Demographics + + + | Address | [address] | | | [place] [address] | + + + | Home Phone [...] Providers + +------+ + | Care Engineering Technical Writer Name | Role | Phone | + +------+ + | Alisha Stovall PA-C | PCP | | + +------+ + Reason for Visit Consultation (Routine) +--------+--------+ + + + + [...] | | | | | dysmotility | [place], [place] | [place], [place] | | | | | Procedures | [address] | [address] | | | | | CONSULT TO | Phone: | Phone: | | | | | GASTRO[facility] | [phone] | [phone] | | | | | LOGY | Fax: | Fax: | | | | | | [phone] | [phone] | +--------+--------+ + + + + Encounter Details +--------+ + + + + | Date | Type | Department | Care Team | Description | +--------+ + + + + | 09/25/ | Video/TeleH | Digestive Health | Cassidy Schneider, | | | 2020 | ealth-Sched | Center at [facility] [address] | MD [address] | | | | ray | [address] [place] | [facility] [place] | | | | | for Health and | [address] | | | | | Healing, [address] | [phone] | | | | | [place], [place] | | | | | | [address] | | | | | | [phone] | | | +--------+ + + + [...] parker located at the distant site of [facility]. The patient stated they were located at the [facility] site of home and were in [...] This time includes the vi rtual visit [id number] time with the patient as well as [...] [place] | | | | | | [address] | | | | | | [phone] | | | | | | | | +--------+ + + + + | 12/01/ | Video/TeleH | Pain Management | Florencio Lockett, | | | 2019 | ealth-Sched | | PhD [address] | | | | uled | | [place], [place] | | | | | | [address] | | | | | | [phone] | | | | | | | | +--------+ + + + + | 01/06/ | Office | Plastic Surgery | Kuldip Harrell MD | | 2019 | Visit | | [address] | | | | | | [place], [place] | | | | | | [address] | | | | | | [phone] | | | | | | | | +--------+ + + + + documented as of this encounter Visit Diagnoses + + | Diagnosis | + + | Chronic idiopathic constipation - Primary Unspecified constipation | + + | Chronic nausea Nausea alone | + + documented in this encounter
--- OUTSIDE RECORDS SUMMARY | ~2019-11-17 | XMS | Encounter Summary ---
Demographics + + + | Address | [address] | | | [place] [address] | + + + | Home Phone [...] Team Providers + +------+ + | Care Foreign Car Mechanic Name | Role | Phone | [...] | | [address] | [facility] [place] | | | | | for Health and | [address] | | | | | Healing, [address] | | | | | | [place], [place] | | | | | | [address] | | | | | | | [...] Lockett G, | | | 2020 | ealth-[facility] | | PhD [address] | | | | [address] | | [place], [place] | | | | | | [address] | | | | | | [phone] | | | | | | | | +--------+ + + + + | 12/01/ | Video/TeleH | Pain Management | Florencio Lockett, | | | 2019 | ealth-Sched | | PhD [address] | | | | uled | | [place], [place] | | | | | | [address] | | | | | | [phone] | | | | | | | | +--------+ + + + + | 01/06/ | Office | Plastic Surgery | Kuldip Harrell MD | | | 2019 | Visit | | [address] | | | | | | [place], [place] | | | | | | [address] | | | | | | [phone] | | | | | | | | +--------+ + + + + documented as of this encounter Visit Diagnoses Not on filedocumented in this encounter"
--- OUTSIDE RECORDS SUMMARY | ~2019-11-17 | XMS | Encounter Summary ---
Demographics + + + | Address | [address] | | | [place] [address] | + + + | Home Phone [...] Team Providers + +------+ + | Care Stenocaptioner Name | Role | Phone | + [...] | | | | | dysmotility | [place], [place] | [place], [place] | | | | | Procedures | [address] | [address] | | | | | CONSULT TO | Phone: | Phone: | | | | | GASTROENTERO | [phone] | [phone] | | | | | LOGY | Fax: | Fax: | | | | | | [phone] | [phone] | +--------+--------+ + + + + Encounter Details +--------+ + + + + | Date | Type | Department | Care Team | Description | +--------+ + + + + | 11/13/ | Video/TeleH | Digestive Health | Cassidy Schneider, | | | 2019 | ealth-Sched | Center at [facility] [address] | MD [address] | | | | ray | [address] | [facility] [place] | | | | | for Health and | [address] | | | | | Healing, Building 2 | [phone] | | | | | [place], [place] | | | | | | [address] | | | | | | [phone] | | | +--------+ + + + [...] encounter Progress Notes Cassidy Schneider MD - 11/14/2019 2:00 PM PDTNo show for visit. Attempted to call x 2 wit h no answer. Left VM inviting pt to call back to reschedule documented in this encounter Plan of Treatment [...] [place] | | | | | | [address] | | | | | | [phone] | | | | | | | | +--------+ + + + + | 12/01/ | Video/TeleH | Pain Management | Florencio Lockett, | | 2019 | ealth-Sched | | PhD [address] | | | | uled | | [place], [place] | | | | | | [address] | | | | | | [phone] | | | | | | | | +--------+ + + + + | 01/06/ | Office | Plastic Surgery | Kuldip Harrell MD | | | 2020 | Visit | | [address] | | | | | | [place], [place] | | | | | | [address] | | | | | | [phone] | | | | | | | | +--------+ + + + + documented as of this encounter Visit Diagnoses + + | Diagnosis | + + | EE-NO SHOW - Primary | + + documented in this encounter"
--- OUTSIDE RECORDS SUMMARY | ~2019-11-17 | XMS | Encounter Summary ---
Demographics + + + | Address | [address] | | | [place] [address] | + + + | Home Phone [...] Team Providers + +------+ + | Care Chicken Hatchery Helper Name | Role | Phone | [...] | | 2020 | | Center at [facility] [address] | MD [address] | management) | | | | [address] | [place], [place] | | | | | for Health and | [address] | | | | | [facility] 2 | [phone] | | | | | [place], [place] | | | | | | [address] | | | | | | [phone] | | | +--------+ + + + [...] | | | | ray | | [place], [place] | | | | | | [address] | | | | | | [phone] | | | | | | | | +--------+ + + + + | 12/01/ | Video/TeleH | Pain Management | Florencio Lockett, | | | 2019 | ealth-Sched | | PhD [address] | | | | uled | | [place], [place] | | | | | | [address] | | | | | | [phone] | | | | | | | | +--------+ + + + + | 01/06/ | Office | Plastic Surgery | Kuldip Harrell MD | | | 2019 | Visit | | [address] | | | | | | [place], [place] | | | | | | [address] | | | | | | [phone] | | | | | | | [...]
--- OUTSIDE RECORDS SUMMARY | ~2019-11-17 | XMS | Encounter Summary ---
Demographics + + + | Address | [address] | | | [place] [address] | + + + | Home Phone | | + + + | Preferred Language | Unknown | + + + | Marital Status | | + + + | Sabianism Affiliation | Unknown | + + + [...] [place], | | | | | [place] [address] | | + + + + + Care Team Providers + +------+ + | Care Passenger Car Conductor Name | Role | Phone | + [...] | | Procedures | [address] | [place], [place] | | | | | Consult | Ave | [address] Phone: | | | | | | [place], | [phone] | | | | | | [place] | Fax: | | | | | | [address] | [phone] | | | | | | Phone: | | | | | | | [phone] | | | | | | | Fax: | | | | | | | [phone] | | + +--------+ + + + + Encounter Details +--------+---------+ + + + | Date | Type | Department | Care Team | Description | +--------+---------+ + + + | 06/20/ | Office | [facility] | Katheryn Hammonds DO | Cardiac arrhythmia, | | 2019 | Visit | CARDIOLOGY AARON | [address] | unspecified cardiac | | | | [address] | [place], [place] | arrhythmia type | | | | [address] | [address] | (Primary Dx); | | | | [place] | | Hypotension, | | | | [address] | | unspecified | | | | [phone] | | hypotension type | +--------+---------+ + [...] Villalpando DO - 06/20/2019 10:00 AM PST [facility] Cardiology Cardiology Consult Note Reason for Consultation: [...] rafael ing well. She is followed at [facility]. She was getting IV infusions multiple times [...] file Gets together: Not on file Attends episcopalian service: Not on file Active member of [...] | | 2019 | Visit | | [address] [place] [address] | | | | | | [place] | | | | | | [address] | | | | | | [phone] | | | | | | | | +--------+---------+ + + + | 12/01/ | Office | Cardiology | Nadege Chavez | | 2019 | Visit | | [address] | | | | | | [address] | | | | | | [place] [address] | | | | | | [phone] | | | | | | | [...] MD | | | | | | ([id number]) on 06/20/2019 | | | | | [...]
--- OUTSIDE RECORDS SUMMARY | ~2019-11-17 | XMS | Encounter Summary ---
Demographics + + + | Address | [address] | | | [place] [address] | + + + | Home Phone [...] Team Providers + +------+ + | Care Pizza Maker Name | Role | Phone | [...] | | | | | ([facility]) at [facility] [address] | [place], [place] | | | | | [address] | [address] | | | | | Mailcode: [place] | [phone] | | | | | [facility] and | | | | | | [address] | | | | | | [place], [place] | | | | | | [address] | | | | | | [phone] | | | +--------+ + + + [...] hours or on weekends and holiday Hospital Helminthologist toll free [phone] ext. [phone] and have the GI doctor cone cleaner paged. The GI Procedure Nurse who performed [...] | | | | uled | | [place], [place] | | | | | | [address] | | | | | | [phone] | | | | | | | | +--------+ + + + + | 12/01/ | Video/TeleH | Pain Management | Florencio Lockett, | | | 2019 | ealth-Sched | | PhD [address] | | | | uled | | [place], [place] | | | | | | [address] | | | | | | [phone] | | | | | | | | +--------+ + + + + | 01/06/ | Office | Plastic Surgery | Kuldip Harrell MD | | | 2019 | Visit | | [address] | | | | | | [place], [place] | | | | | | [address] | | | | | | [phone] | | | | | | | [...] + | MRN: | [facility] | | [id number] Date: 04/12/2019Patient Name: Maria De Jesus Gonzalez #: | E NDOSCOPY | | [id number] of : 1990CSN: [id number] Type: | | | [facility] Resolution | | | esophageal manometryIndications: Esophageal dysphagia, | | | Suspected esophageal reflux, For | | | therapy of esophageal refluxProviders: RUBEN STUBBS MD | | | (Doctor), ROBERTA GERMAN, RN (Nurse)Referring MD: KENAN Chavarria | | | OMEGA MDRequesting Provider: [...] PST | | | | | Starting Mon04/12/19 at 1403, | | | | | | | Until Mon04/12/19 at 1325 | | | | | [...]
--- OUTSIDE RECORDS SUMMARY | ~2019-11-17 | XMS | Encounter Summary ---
Demographics + + + | Address | [address] | | | [place] [address] | + + + | Home Phone [...] Providers + +------+ + | Care Health Safety Manager Name | Role | Phone | [...] | | 2018 | | Center at [facility] 34[address] | [address] | Received (GI notes) | | | | [address] [facility] | [address] [place], | | | | | for Health and | [place] [address] | | | | | [facility], [facility] 2 | [phone] | | | | | [place], [place] | | | | | | [address] | | | | | | [phone] | | | +--------+ + + + [...] | | | | uled | | [place], [place] | | | | | | [address] | | | | | | [phone] | | | | | | | | +--------+ + + + + | 12/01/ | Video/TeleH | Pain Management | Florencio Lockett, | | | 2019 | ealth-Sched | | PhD [address] | | | | uled | | [place], [place] | | | | | | [address] | | | | | | [phone] | | | | | | | | +--------+ + + + + | 01/06/ | Office | Plastic Surgery | Kuldip Harrell MD | | | 2020 | Visit | | [address] | | | | | | [place], [place] | | | | | | [address] | | | | | | [phone] | | | | | | | | +--------+ + + + + documented as of this encounter Visit Diagnoses Not on filedocumented in this encounter"
--- OUTSIDE RECORDS SUMMARY | ~2019-11-17 | XMS | Encounter Summary ---
Demographics + + + | Address | [address] | | | [place] [address] | + + + | Home Phone [...] Team Providers + +------+ + | Care Roll Mechanic Name | Role | Phone | [...] Pharmacy | | | | | | [address] | | | | | | Loop [place], [place] | | | | | | [address] | | | | | | [phone] | | | +--------+ + + + [...] | | | | uled | | [place], [place] | | | | | | [address] | | | | | | [phone] | | | | | | | | +--------+ + + + + | 12/01/ | Video/TeleH | Pain Management | Florencio Lockett, | | | 2019 | ealth-Sched | | PhD [address] | | | | uled | | [place], [place] | | | | | | [address] | | | | | | [phone] | | | | | | | | +--------+ + + + + | 01/06/ | Office | Plastic Surgery | Kuldip Harrell MD | | | 2019 | Visit | | [address] | | | | | | [place] | | | | | | [address] | | | | | | [phone] | | | | | | | | +--------+ + + + + documented as of this encounter Visit Diagnoses Not on filedocumented in this encounter"
--- OUTSIDE RECORDS SUMMARY | ~2019-11-17 | XMS | Encounter Summary ---
Demographics + + + | Address | [address] | | | [place] [address] | + + + | Home Phone | | + + + | Preferred Language | Unknown | + + + | Marital Status | | + + + | Restorationist Affiliation | Unknown | + + + | Race | Unknown | + + + | Ethnic Group | Unknown | + + + Author + + + | Author | [facility] | | | and [place] | + + + | Organization | [facility] | | | and [...] [place], | | | | | [place] [address] | | + + + + + Care Team Providers + +------+ + | Care Liquor Grinding Mill Operator Name | Role | Phone [...] | | HOSPITAL NEUROLOGY | [address] [facility] | | | | | CLINIC [address] | [place] | | | | | [address] [place], | [address] | | | | | [place] [address] | [phone] | | | | | [phone] | | | +--------+ + + + [...] this encounter Miscellaneous Notes Telephone Encounter - Abdulkadir Hough LPN - 08/28/2019 2:19 PM PDT05.06.20- PA for aim ovig via cover my meds were approved effective from 08/28/2019 through 11/28/2019. Called josé luis Pretty know e lephone Encounter - Abdulkadir Hough LPN - 08/28/2019 12:08 PM PDT05.06.20- PA started for aimovig via cover my meds will wait for approval or denile. Abdulkadir Hough LPN elephone EncounTaiwo Vora - 08/28/2019 11:05 AM PDTPt. Called stating they had an appt with Han carvajal and a shot was ordered at [facility] [place]. They havent gotten the RxElectronically si gned by Taiwo Coombs at 08/28/2019 11:08 AM PDTdocumented in this encounter Plan of Treatment +--------+---------+ + + + | Date | Type | Specialty | Care Team | Description | +--------+---------+ + + + | 11/18/ | Office | Neurology | Shirley Murdock NP | | | 2019 | Visit | | [address] | | | | | | [place] | | | | | | [address] | | | | | | [phone] | | | | | | | | +--------+---------+ + + + | 08/10/ | Office | Cardiology | Nadege Chavez | | | 2019 | Visit | | [address] | | | | | | [address] | | | | | | [place] [address] | | | | | | [phone] | | | | | | | | +--------+---------+ + + + documented as of this encounter Visit Diagnoses Not on filedocumented in this encounter"
--- OUTSIDE RECORDS SUMMARY | ~2019-11-17 | XMS | Encounter Summary ---
Demographics + + + | Address | [address] | | | [place] [address] | + + + | Home Phone [...] Team Providers + +------+ + | Care Roustabout Head Name | Role | Phone | + [...] | Post-discharge | | 2019 | | [place] at [facility] [address] | [address] | follow-up | | | | [address] | [place], [place] | | | | | for Health and | [address] | | | | | [facility] 2 | [phone] | | | | | [place], [place] | | | | | | [address] | | | | | | | [...] | | | | [address] | | [facility] [place] | | | | | | [address] | | | | | | [phone] | | | | | | | | +--------+ + + + + | 12/01/ | Video/TeleH | Pain Management | Florencio Lockett, | | | 2019 | ealth-Sched | | PhD [address] | | | | uled | | [place], [place] | | | | | | [address] | | | | | | [phone] | | | | | | | | +--------+ + + + + | 01/06/ | Office | Plastic Surgery | Kuldip Harrell MD | | | 2019 | Visit | | [address] | | | | | | [place], [place] | | | | | | [address] | | | | | | [phone] | | | | | | | | +--------+ + + + + documented as of this encounter Visit Diagnoses Not on filedocumented in this encounter"
--- OUTSIDE RECORDS SUMMARY | ~2019-11-17 | XMS | Encounter Summary ---
Demographics + + + | Address | [address] | | | [place] [address] | + + + | Home Phone [...] Team Providers + +------+ + | Care Machine Silver Stripper Name | Role | Phone | [...] | 01/10/ | Lab | Laboratory at [facility] | | No Show | | 2019 | | [address] | | | | | | [facility] | | | | | | and Healing, | | | | | | Building [address] | | | | | | [place], [place] | | | | | | [address] | | | | | | [phone] | | | +--------+------+ + + + [...] | | | | ray | | [place], [place] | | | | | | [address] | | | | | | [phone] | | | | | | | | +--------+ + + + + | 12/01/ | Video/TeleH | Pain Management | Florencio Lockett, | | | 2019 | ealth-Sched | | PhD [address] | | | | uled | | [place], [place] | | | | | | [address] | | | | | | [phone] | | | | | | | | +--------+ + + + + | 01/06/ | Office | Plastic Surgery | Kuldip Harrell MD | | | 2019 | Visit | | [address] | | | | | | [place], [place] | | | | | | [address] | | | | | | [phone] | | | | | | | | +--------+ + + + + documented as of this encounter Visit Diagnoses Not on filedocumented in this encounter"
--- OUTSIDE RECORDS SUMMARY | ~2019-11-17 | XMS | Encounter Summary ---
Demographics + + + | Address | [address] | | | [place] [address] | + + + | Home Phone [...] Team Providers + +------+ + | Care Merchandise Flow Team Member Name | Role | Phone | + [...] | | | | [place] | | [place], [place] | | | | | | [address] | | | | | | [phone] | | | | | | | | +--------+ + + + + | 12/01/ | Video/TeleH | Pain Management | Florencio Lockett, | | | 2019 | ealth-Sched | | PhD [address] | | | | uled | | [place], [place] | | | | | | [address] | | | | | | [phone] | | | | | | | | +--------+ + + + + | 01/06/ | Office | Plastic Surgery | Kuldip Harrell MD | | | 2019 | Visit | | [address] | | | | | | [place], [place] | | | | | | [address] | | | | | | [phone] | | | | | | | | +--------+ + + + + documented as of this encounter Visit Diagnoses Not on filedocumented in this encounter"
--- OUTSIDE RECORDS SUMMARY | ~2019-11-17 | XMS | Encounter Summary ---
Demographics + + + | Address | [address] | | | [place] [address] | + + + | Home Phone [...] Team Providers + +------+ + | Care Full Stack Developer Name | Role | Phone | + +------+ + | Alisha Stovall PA-C | PCP | | + +------+ + Encounter Details +--------+ + + + + | Date | Type | Department | Care Team | Description | +--------+ + + + + | 03/22/ | Abstract | Digestive Health | Clinic, Surgery | | | 2017 | | [place] [address] [address] | | | | | | [address] [facility] | | | | | | for Health and | | | | | | Healing, [address] | | | | | | [place], [place] | | | | | | [address] | | | | | | [phone] | | | +--------+ + + + [...] | | | | uled | | [place], [place] | | | | | | [address] | | | | | | [phone] | | | | | | | | +--------+ + + + + | 12/01/ | Video/TeleH | Pain Management | Florencio Lockett, | | | 2019 | ealth-Sched | | PhD [address] | | | | uled | | [place], [place] | | | | | | [address] | | | | | | [phone] | | | | | | | | +--------+ + + + + | 01/06/ | Office | Plastic Surgery | Kuldip Harrell MD | | | 2019 | Visit | | [address] | | | | | | [place], [place] | | | | | | [address] | | | | | | [phone] | | | | | | | | +--------+ + + + + documented as of this encounter Visit Diagnoses Not on filedocumented in this encounter"
--- OUTSIDE RECORDS SUMMARY | ~2019-11-17 | XMS | Encounter Summary ---
Demographics + + + | Address | [address] | | | [place] [address] | + + + | Home Phone | | + + + | Preferred Language | Unknown | + + + | Marital Status | | + + + | Episcopalian Affiliation | Unknown | + + + | Race | Unknown | + + + | Ethnic Group | Unknown | + + + Author + + + | Author | [facility] | | | and [place] | + + + | Organization | [facility] | | | [...] [place], | | | | | [place] [address] | | + + + + + Care Team Providers + +------+ + | Care Installment Dealer Name | Role | Phone | + +------+ + | Alisha Stovall | PCP | | | PA-C | | | + +------+ + Encounter Details +--------+ + + + + | Date | Type | Department | Care Team | Description | +--------+ + + + + | 06/20/ | Abstract | [facility] | Fern Love | | | 2019 | | CARDIOLOGY LASHAY Rod, Games Dealer | | | | | [address] | | | | | | [place] | | | | | | [address] | | | | | | [phone] | | | +--------+ + + + [...] [place] | | | | | | [address] | | | | | | [phone] | | | | | | | | +--------+---------+ + + + | 12/01/ | Office | Cardiology | Nadege Chavez | | | 2020 | Visit | | [address] | | | | | | [address] | | | | | | [place] [address] | | | | | | [phone] | | | | | | | | +--------+---------+ + + + documented as of this encounter Visit Diagnoses Not on filedocumented in this encounter"
--- OUTSIDE RECORDS SUMMARY | ~2019-11-17 | XMS | Encounter Summary ---
Demographics + + + | Address | [address] | | | [place] [address] | + + + | Home Phone [...] Team Providers + +------+ + | Care Systems Architecture Analyst Name | Role | Phone | [...] | 2019 | | Center at [facility] [address] | MD [address] | (01/10/2019) | | | | [address] | [place], [place] | | | | | for Health and | [address] | | | | | [facility], [facility] 2 | [phone] | | | | | [place], [place] | | | | | | [address] | | | | | | [phone] | | | +--------+ + + + [...] | | | | ray | | [place], [place] | | | | | | [address] | | | | | | [phone] | | | | | | | | +--------+ + + + + | 12/01/ | Video/TeleH | Pain Management | Florencio Lockett, | | | 2019 | ealth-Sched | | PhD [address] | | | | uled | | [place], [place] | | | | | | [address] | | | | | | [phone] | | | | | | | | +--------+ + + + + | 01/06/ | Office | Plastic Surgery | Kuldip Harrell MD | | | 2019 | Visit | | [address] | | | | | | [place], [place] | | | | | | [address] | | | | | | [phone] | | | | | | | | +--------+ + + + + documented as of this encounter Visit Diagnoses Not on filedocumented in this encounter"
--- OUTSIDE RECORDS SUMMARY | ~2019-11-17 | XMS | Encounter Summary ---
Demographics + + + | Address | [address] | | | [place] [address] | + + + | Home Phone [...] Providers + +------+ + | Care Inspector Radar And Electronics Name | Role | Phone | + +------+ + | Alisha Stovall PA-C | PCP | | + +------+ + Encounter Details +--------+ + + + + | Date | Type | Department | Care Team | Description | +--------+ + + + + | 06/06/ | Abstract | Digestive Health | Clinic, Surgery | | | 2019 | | [place] [address] [address] | | | | | | [address] [facility] | | | | | | for Health and | | | | | | Healing, [address] | | | | | | [place], [place] | | | | | | [address] | | | | | | [phone] | | | +--------+ + + + [...] | | | | uled | | [place], [place] | | | | | | [address] | | | | | | [phone] | | | | | | | | +--------+ + + + + | 12/01/ | Video/TeleH | Pain Management | Florencio Lockett, | | | 2019 | ealth-Sched | | PhD [address] | | | | uled | | [place], [place] | | | | | | [address] | | | | | | [phone] | | | | | | | | +--------+ + + + + | 01/06/ | Office | Plastic Surgery | Kuldip Harrell MD | | | 2019 | Visit | | [address] | | | | | | [place], [place] | | | | | | [address] | | | | | | [phone] | | | | | | | | +--------+ + + + + documented as of this encounter Visit Diagnoses Not on filedocumented in this encounter"
--- OUTSIDE RECORDS SUMMARY | ~2019-11-17 | XMS | Encounter Summary ---
Demographics + + + | Address | [address] | | | [place] [address] | + + + | Home Phone [...] Team Providers + +------+ + | Care Hot Room Attendant Name | Role | Phone | [...] at | | | | | | [facility] | | | | | | [address] | | | | | | [facility] | | | | | | and Healing, | | | | | | [address] | | | | | | [place], [place] | | | | | | [address] | | | | | | [phone] | | | +--------+ + + + [...] surgery recovery. Surgery check-in location: Admitting - [facility] Surgery Check in Time: you will receive a call 1-3 business days before your surgery confi rming your exact arrival/check-in time for your surgery day. We know that planning for surg silvia can be stressful and involve a lot of family/friend/transportation coordination as well as hotel arrangements. [facility] does not have access to [facility] in [facility], and we encourage you to contact your [...] TABLET MEDICATION HELP MIRTAZAPINE 15 MG TABLET SUTR-OGFM-CVSEO (PABA) ORAL PROMETHAZINE 25 MG TABLET SIMETHICONE [...] ch as Uber/Lyft), or public transportation. An Uber/Lyft/reach lift truck driver does not count as the responsible [...] it is after office hours, call the [facility] yarn polishing machine operator at [phone] and ask them to page him or h er. documented in this encounter Plan of Treatment +--------+ + + + + | Date | Type | Specialty | Care Team | Description | +--------+ + + + + | 11/17/ | Video/TeleH | Pain Management | Florencio Lockett, | | | 2019 | ealth-Sched | | PhD [address] | | | | uled | | [place], [place] | | | | | | [address] | | | | | | [phone] | | | | | | | | +--------+ + + + + | 12/01/ | Video/TeleH | Pain Management | Florencio Lockett, | | | 2019 | ealth-Sched | | PhD [address] | | | | uled | | [place], [place] | | | | | | [address] | | | | | | [phone] | | | | | | | | +--------+ + + + + | 01/06/ | Office | Plastic Surgery | Kuldip Harrell MD | | | 2019 | Visit | | [address] | | | | | | [place], [place] | | | | | | [address] | | | | | | [phone] | | | | | | | | +--------+ + + + + documented as of this encounter Visit Diagnoses Not on filedocumented in this encounter
--- OUTSIDE RECORDS SUMMARY | ~2019-11-17 | XMS | Encounter Summary ---
Demographics + + + | Address | [address] | | | [place] [address] | + + + | Home Phone [...] Team Providers + +------+ + | Care Offset Press Operator Name | Role | Phone [...] Records | | 2020 | | Center [place] [address] [address] | | Review | | | | [address] [facility] | | | | | | for Health and | | | | | | Healing, [address] | | | | | | [place], [place] | | | | | | [address] | | | | | | [phone] | | | +--------+ + + + [...] | | | | ray | | [place], [place] | | | | | | [address] | | | | | | [phone] | | | | | | | | +--------+ + + + + | 12/01/ | Video/TeleH | Pain Management | Florencio Lockett G, | | | 2019 | ealth-Sched | | PhD [address] | | | | uled | | [place], [place] | | | | | | [address] | | | | | | [phone] | | | | | | | | +--------+ + + + + | 01/06/ | Office | Plastic Surgery | Kuldip Harrell MD | | | 2019 | Visit | | [address] | | | | | | [place], [place] | | | | | | [address] | | | | | | [phone] | | | | | | | | +--------+ + + + + documented as of this encounter Visit Diagnoses Not on filedocumented in this encounter"
--- OUTSIDE RECORDS SUMMARY | ~2019-11-17 | XMS | Encounter Summary ---
Demographics + + + | Address | [address] | | | [place] [address] | + + + | Home Phone [...] Team Providers + +------+ + | Care Recreation Director Name | Role | Phone | [...] | | | | | bypass | [place], [place] | [facility] and | | | | | Dehydration | [address] | Healing, | | | | | Inadequate | Phone: | Building 2 | | | | | oral intake | [phone] | [place], [place] | | | | | Procedures | Fax: | [phone] | | | | | CONSULT TO | [phone] | Phone: | | | | | GI PROCEDURE | | [phone] | | | | | UNIT: EGD | | Fax: | | | | | MA UPPER GI | | [phone] | | | | | ENDOSCOPY,BI | [...] | | [address] | [place], [place] | | | | | [facility] and | [address] | | | | | Healing, [facility] 2 | | | | | | [place], [place] | | | | | | [address] | | | | | | | [...] Florencio Lockett, | | | 2019 | la [facility]-Sched | | PhD [address] | | | | uled | | [place], [place] | | | | | | [address] | | | | | | [phone] | | | | | | | | +--------+ + + + + | 12/01/ | Video/TeleH | Pain Management | Florencio Lockett, | | | 2019 | [facility] | | PhD [address] | | | | uled | | [place], [place] | | | | | | [address] | | | | | | [phone] | | | | | | | | +--------+ + + + + | 01/06/ | Office | Plastic Surgery | Kuldip Harrell MD | | | 2019 | Visit | | [address] | | | | | | [place], [place] | | | | | | [address] | | | | | | [phone] | | | | | | | [...]
--- OUTSIDE RECORDS SUMMARY | ~2019-11-17 | XMS | Encounter Summary ---
Demographics + + + | Address | [address] | | | [place] [address] | + + + | Home Phone | | + + + | Preferred Language | Unknown | + + + | Marital Status | | + + + | Mu-Ism Affiliation | Unknown | + + + | Race | Unknown | + + + | Ethnic Group | Unknown | + + + Author + + + | Author | [facility] | | | and [place] | + + + | Organization | [facility] | | | and [...] [place], | | | | | [place] [address] | | + + + + + Care Team Providers + +------+ + | Care Hoister Name | Role | Phone | + [...] + + | 09/17/ | Telephone | [facility] | Fern Love | Greg (SCREENED FOR | | 2019 | | CARDIOLOGY LASHAY Rod, Network Intelligence Analyst | APPT ) | | | | [address] | | | | | | [place], [place] | | | | | | [address] | | | | | | [phone] | | | +--------+ + + + [...] Miscellaneous Notes Telephone Encounter - Fern Love, Network Intelligence Analyst - 09/18/2019 3:50 PM Kim barfield has [...] in the car during your v isit. [facility] umented in this encounter Plan of [...] [place] | | | | | | [address] | | | | | | [phone] | | | | | | | | +--------+---------+ + + + | 12/01/ | Office | Cardiology | Nadege Chavez | | | 2020 | Visit | | [address] | | | | | | [address] | | | | | | [place] [address] | | | | | | [phone] | | | | | | | | +--------+---------+ + + + documented as of this encounter Visit Diagnoses Not on filedocumented in this encounter"
--- OUTSIDE RECORDS SUMMARY | ~2019-11-17 | XMS | Encounter Summary ---
Demographics + + + | Address | [address] | | | [place] [address] | + + + | Home Phone [...] Team Providers + +------+ + | Care Excavator Operator Name | Role | Phone | [...] | | | | | | [facility] | | | | | | Hospital Admitting | | | | | | Desk Located on the | | | | | | 9th floor | | | | | | [place], [place] | | | | | | [address] | | | +--------+ + + + [...] | | | | uled | | [place], [place] | | | | | | [address] | | | | | | [phone] | | | | | | | | +--------+ + + + + | 12/01/ | Video/TeleH | Pain Management | Florencio Lockett, | | | 2019 | ealth-Sched | | PhD [address] | | | | uled | | [place], [place] | | | | | | [address] | | | | | | [phone] | | | | | | | | +--------+ + + + + | 01/06/ | Office | Plastic Surgery | Kuldip Harrell MD | | | 2020 | Visit | | [address] | | | | | | [place] | | | | | | [address] | | | | | | [phone] | | | | | | | | +--------+ + + + + documented as of this encounter Visit Diagnoses Not on filedocumented in this encounter"
--- OUTSIDE RECORDS SUMMARY | ~2019-11-17 | XMS | Encounter Summary ---
Demographics + + + | Address | [address] | | | [place] [address] | + + + | Home Phone [...] Team Providers + +------+ + | Care Landscape And Yardwork Laborer Name | Role | Phone | + [...] | | 2020 | | Center at [facility] [address] | MD [address] | (prochlorperazine) | | | | [address] | [place], [place] | | | | | for Health and | [address] | | | | | [facility] 2 | | | | | | [place], [place] | | | | | | [address] | | | | | | | [...] | | | | uled | | [place], [place] | | | | | | [address] | | | | | | [phone] | | | | | | | | +--------+ + + + + | 12/01/ | Video/TeleH | Pain Management | Florencio Lockett G, | | | 2019 | [facility] | | PhD [address] | | | | uled | | [place], [place] | | | | | | [address] | | | | | | [phone] | | | | | | | | +--------+ + + + + | 01/06/ | Office | Plastic Surgery | Kuldip Harrell MD | | | 2019 | Visit | | [address] | | | | | | [place], [place] | | | | | | [address] | | | | | | [phone] | | | | | | | | +--------+ + + + + documented as of this encounter Visit Diagnoses Not on filedocumented in this encounter"
--- OUTSIDE RECORDS SUMMARY | ~2019-11-17 | XMS | Encounter Summary ---
Demographics + + + | Address | [address] | | | [place] [address] | + + + | Home Phone | | + + + | Preferred Language | Unknown | + + + | Marital Status | | + + + | Mandaen Affiliation | Unknown | + + + | Race | Unknown | + + + | Ethnic Group | Unknown | + + + Author + + + | Author | [facility] | | | and [place] | + + + | Organization | [facility] | | [...] [place], | | | | | [place] [address] | | + + + + + Care Team Providers + +------+ + | Care Catshovel Driver Name | Role | Phone | [...] | DR SILVAN[address] PAINTER, | [place] [address] | not intractable | | | | [place] [address] | [phone] | (Primary Dx) | | | | [phone] | | | +--------+---------+ + + + [...] Nonsteroidal anti-inflammatory drugs (such as ibuprofen, available vjdm-wzk-swpyhrr) ? Beta-blockers ? Anticonvulsants ? Tricyclic antidepressants [...] of caffeine you consume. Date Last Reviewed: 08/22/201719996128-9686 [employer]. [address] [place] [address], [place] [address]. All righ ts reserved. This information is not intended as a substitute for professional medical care. Always follow your healthcare professional's instructions. documented in this encounter Progress Notes Caity Joel MD - 02/28/2019 9:00 AM PST Patient: Maria De Jesus Anna Medical Record: [id number] Date of Services: 02/28/2019 Referring Doctor: Alisha [...] an appointment to see her surgeon at [facility] in [facility]. Eating and drinking even only small amounts [...] and oriented to time, place, and person. [facility] is fluent. Memory, attention, comprehension, and general [...] CEREBELLAR EXAMINATION: There is no dysmetria on pvlfcf-an-dkee test. IMPRESSION: 1. Migraine without aura and without status migrainosus, not intractable PLAN AND RECOMMENDATIONS: The patient's headaches have improved significantly on Topamax and we will keep her on her current dose. It appears that her headaches are triggered by her dietary issues and hopefully this will b e resolved in a few weeks. She will see her surgeon and a rnp at [facility] in [facility]. In the meantime, she will remain on [...] this 30 minute visit was spent on xszb-vq-gjwy with the patient, shannon peck on the problems of taking awum-xbm-oalrhta analgesics excessively. Thank you for the opportunity [...] | | 2019 | Visit | | [address] [place] [address] | | | | | | [place] | | | | | | [address] | | | | | | [phone] | | | | | | | | +--------+---------+ + + + | 12/01/ | Office | Cardiology | Nadege Chavez | | 2019 | Visit | | [address] | | | | | | [address] | | | | | | [facility] [place] [address] | | | | | | [phone] | | | | | | | [...]
--- OUTSIDE RECORDS SUMMARY | ~2019-11-17 | XMS | Encounter Summary ---
Demographics + + + | Address | [address] | | | [place] [address] | + + + | Home Phone [...] Providers + +------+ + | Care Pig Caster Name | Role | Phone | + [...] | [facility] | | | with INTERACTIVE MEDIA SPECIALIST | | | Surg Chh2 | Chh2 [...] 2 | | | | | | [place], | [place], [place] | | | | | | [place] | [address] | | | | | | [address] | Phone: | | | | | | Phone: | | | | | | | | Fax: | | | | | | Fax: | [phone] | | | | | | [phone] | | +--------+ + + + + [...] uled | [address] | [place], [place] | | | | | for Health and | [address] | | | | | [facility] 2 | [phone] | | | | | [place], [place] | | | | | | [address] | | | | | | | [...] 2 days ago with her surgeon in [facility] Dr. Whitlock. She report she is sore [...] andreia-en-y gastric bypass with cholecystectomy 09/24/2018 [facility] Dr. Norton PHYSICAL EXAMINATION: GENERAL: In [...] the supplies, she will contact he r supplier/baked goods stock clerk - Will call patient's pharmacy to see [...] irtually located at the distant site of [facility]. The patient stated they were located at the [facility] site [facility] [place] and were in the state of [place] at the time of the virtual visit. T he names of all persons participating in the virtual visit and their roles are: Maria De Jesus Hernández and Kenan Norton MD. I have spent a total of 30 minutes on this patient's care today. This time includes the vi rtual visit jefb-gm-zfcy time with the patient as well as [...] Lockett G, | | | 2019 | ealth-[facility] | | PhD [address] | | | | [place] | | [place], [place] | | | | | | [address] | | | | | | [phone] | | | | | | | | +--------+ + + + + | 12/01/ | Video/TeleH | Pain Management | Florencio Lockett G, | | | 2019 | ealth-Sched | | PhD [address] | | | | uled | | [place], [place] | | | | | | [address] | | | | | | [phone] | | | | | | | | +--------+ + + + + | 01/06/ | Office | Plastic Surgery | Kuldip Harrell MD | | | 2019 | Visit | | [address] | | | | | | [place], [place] | | | | | | [address] | | | | | | [phone] | | | | | | | [...]
--- OUTSIDE RECORDS SUMMARY | ~2019-11-17 | XMS | Encounter Summary ---
Demographics + + + | Address | [address] | | | [place] [address] | + + + | Home Phone [...] Team Providers + +------+ + | Care Bottling Equipment Sales Representative Name | Role | Phone [...] | | | | [place] | | [place], [place] | | | | | | [address] | | | | | | [phone] | | | | | | | | +--------+ + + + + | 12/01/ | Video/TeleH | Pain Management | Florencio Lockett, | | | 2019 | ealth-Sched | | PhD [address] | | | | uled | | [place], [place] | | | | | | [address] | | | | | | [phone] | | | | | | | | +--------+ + + + + | 01/06/ | Office | Plastic Surgery | Kuldip Harrell MD | | | 2019 | Visit | | [address] | | | | | | [place], [place] | | | | | | [address] | | | | | | [phone] | | | | | | | | +--------+ + + + + documented as of this encounter Visit Diagnoses Not on filedocumented in this encounter"
--- OUTSIDE RECORDS SUMMARY | ~2019-11-17 | XMS | Encounter Summary ---
Demographics + + + | Address | [address] | | | [place] [address] | + + + | Home Phone [...] Providers + +------+ + | Care Corporate Planner Name | Role | Phone | [...] Pharmacy | | | | | | [address] | | | | | | [place], [place] | | | | | | [address] | | | | | | [phone] | | | +--------+ + + + [...] | eah-Sched | | PhD [address] | | | | uled | | [place], [place] | | | | | | [address] | | | | | | [phone] | | | | | | | | +--------+ + + + + | 12/01/ | Video/TeleH | Pain Management | Florencio Lockett, | | | 2019 | ealth-Sched | | PhD [address] | | | | uled | | [place], [place] | | | | | | [address] | | | | | | [phone] | | | | | | | | +--------+ + + + + | 01/06/ | Office | Plastic Surgery | Kuldip Harrell MD | | | 2019 | Visit | | [address] | | | | | | [place] | | | | | | [address] | | | | | | [phone] | | | | | | | | +--------+ + + + + documented as of this encounter Visit Diagnoses Not on filedocumented in this encounter"
--- OUTSIDE RECORDS SUMMARY | ~2019-11-17 | XMS | Encounter Summary ---
Demographics + + + | Address | [address] | | | [place] [address] | + + + | Home Phone [...] Providers + +------+ + | Care Pump Servicer Helper Name | Role | Phone | [...] | | | Surg Chh2 | Chh2 [address] | | | | | | [address] | [address] | | | | | | Ave Center | Lane for | | | | | | for Health | Health and | | | | | | and Healing, | Healing, | | | | | | Building 2 | Building 2 | | | | | | [place], | [place], [place] | | | | | | [place] | [address] | | | | | | [address] | Phone: | | | | | | Phone: | [phone] | | | | | | [phone] | Fax: | | | | | | Fax: | [phone] | | | | | | [phone] | | +--------+--------+ + + + + Encounter Details +--------+---------+ + + + | Date | Type | Department | Care Team | Description | +--------+---------+ + + + | 10/02/ | Office | Digestive Health | Indu Pisano, | S/P gastric bypass | | 2019 | Visit | Center at [facility] [address] | [address] [facility] | (Primary Dx); | | | | [address] | [address] | Diabetes mellitus | | | | for Health and | [place], [place] | treated with oral | | | | [facility] 2 | [address] | medication (HCC) | | | | [place], [place] | | | | | | [address] | | | | | | [phone] | | | +--------+---------+ + + + [...] of visit: 1:31 to 2:05 (34 minutes deuk-lu-xzlt with patient) Surgery: Gastric Bypass and Cholecystectomy [...] multivitamin & mineral (with iron) supplement, 2/day -3025-0909 mg calcium citrate with vitamin D/day (take [...] Indu Pisano RD, LD Clinical Dietitian - [facility] Bariatrics [facility] [place] Email: [email or web address] Pager: [phone] docume nted in this encounter Plan of [...] [place] | | | | | | [address] | | | | | | [phone] | | | | | | | | +--------+ + + + + | 12/01/ | Video/TeleH | Pain Management | Florencio Lockett, | | | 2019 | ealth-Sched | | PhD [address] | | | | uled | | [place], [place] | | | | | | [address] | | | | | | [phone] | | | | | | | | +--------+ + + + + | 01/06/ | Office | Plastic Surgery | Kuldip Harrell MD | | 2019 | Visit | | [address] | | | | | | [place], [place] | | | | | | [address] | | | | | | [phone] | | | | | | | | +--------+ + + + + documented as of this encounter Procedures + +--------+ + + + | Procedure Name | Priori | Date/Time | Associated Diagnosis | Comments | | | ty | | | | + +--------+ + + + | FL MNT RE-ASSESSMNT | Routin | 10/02/2018 | S/P gastric bypass | | | X15MIN | e | 3:46 PM | Diabetes mellitus | | | | | PDT | treated with oral | | | | | | medication (HCC) | | + +--------+ + + + documented in this encounter Visit Diagnoses + + | Diagnosis | + + | S/P gastric bypass - Primary Bariatric surgery status | + + | Diabetes mellitus treated with oral medication (HCC) | + + documented in this encounter
--- OUTSIDE RECORDS SUMMARY | ~2019-11-17 | XMS | Encounter Summary ---
Demographics + + + | Address | [address] | | | [place] [address] | + + + | Home Phone [...] Team Providers + +------+ + | Care Surgery Assistant Name | Role | Phone | [...] | | | | [facility] [facility] | | | | | | [address] | | | | | | [facility] | | | | | | and Healing, | | | | | | Building [address] | | | | | | [place], [place] | | | | | | [address] | | | | | | [phone] | | | +--------+ + + + [...] | procedure documentation); 7; | Heather Zamorano, MILLINERY SALESPERSON | Heather Zamorano CRNA | | | Oral; Cuffed; 09/24/18; 1512 | | | +--------+ + + + | Periph | 09/24/18; 1350; Mines; Left; | 09/24/18 1350 by | 09/26/18 1241 by | | beckie | Hand; 20 g; None; No; Positive; | Heather A Jaun, MILLINERY SALESPERSON | Brii Pulido RN | | IV [...] your procedure. Surgery Check in Locations Admitting [facility], ninth floor [facility] Surgery Check in Time: Someone from your surgeon's office or [facility] will provide you with information regarding your [...] it is after office hours, call the [facility] button tufting machine operator at [phone] and ask them to page your doc [...] your procedure. Surgery Check in Locations Admitting [facility], [facility] Surgery Check in Time: Someone from your surgeon's office or [facility] will provide you with information regarding your [...] it is after office hours, call the [facility] button tufting machine operator at [phone] and ask them to page your doc [...] | | | | uled | | [place], [place] | | | | | | [address] | | | | | | [phone] | | | | | | | | +--------+ + + + + | 12/01/ | Video/TeleH | Pain Management | Florencio Lockett, | | | 2019 | ealth-Sched | | PhD [address] | | | | uled | | [place], [place] | | | | | | [address] | | | | | | [phone] | | | | | | | | +--------+ + + + + | 01/06/ | Office | Plastic Surgery | Kuldip Harrell MD | | 2019 | Visit | | [address] | | | | | | [place] | | | | | | [address] | | | | | | [phone] | | | | | | | | +--------+ + + + + documented as of this encounter Visit Diagnoses Not on filedocumented in this encounter"
--- OUTSIDE RECORDS SUMMARY | ~2019-11-17 | XMS | Encounter Summary ---
Demographics + + + | Address | [address] | | | [place] [address] | + + + | Home Phone [...] Team Providers + +------+ + | Care Compo Conveyor Operator Name | Role | Phone | [...] | | | | | | [facility] | | | | | | Hospital Admitting | | | | | | Desk Located on the | | | | | | 9th floor | | | | | | [place], [place] | | | | | | [address] | | | +--------+ + + + [...] | | | | uled | | [place], [place] | | | | | | [address] | | | | | | [phone] | | | | | | | | +--------+ + + + + | 12/01/ | Video/TeleH | Pain Management | Florencio Lockett, | | | 2019 | ealth-Sched | | PhD [address] | | | | uled | | [place], [place] | | | | | | [address] | | | | | | [phone] | | | | | | | | +--------+ + + + + | 01/06/ | Office | Plastic Surgery | Kuldip Harrell MD | | 2019 | Visit | | [address] | | | | | | [place], [place] | | | | | | [address] | | | | | | [phone] | | | | | | | | +--------+ + + + + documented as of this encounter Visit Diagnoses Not on filedocumented in this encounter"
--- OUTSIDE RECORDS SUMMARY | ~2019-11-17 | XMS | Encounter Summary ---
Demographics + + + | Address | [address] | | | [place] [address] | + + + | Home Phone [...] Providers + +------+ + | Care Core Maker Name | Role | Phone | + +------+ + | Alisha Stovall PA-C | PCP | | + +------+ + Encounter Details +--------+ + + + + | Date | Type | Department | Care Team | Description | +--------+ + + + + | 02/09/ | Abstract | Cardiology | Sarah Barba | | | 2018 | | Preventive at [facility] | SHANICE Villafuerte [address] | | | | | [address] | [address] [place], | | | | | [facility] | [place] [address] | | | | | and [place], | [phone] | | | | | Building [address] | | | | | | [place], [place] | | | | | | [address] | | | | | | [phone] | | | +--------+ + + + [...] | | | | uled | | [place], [place] | | | | | | [address] | | | | | | [phone] | | | | | | | | +--------+ + + + + | 12/01/ | Video/TeleH | Pain Management | Florencio Lockett, | | | 2019 | ealth-Sched | | PhD [address] | | | | uled | | [place], [place] | | | | | | [address] | | | | | | [phone] | | | | | | | | +--------+ + + + + | 01/06/ | Office | Plastic Surgery | Kuldip Harrell MD | | | 2019 | Visit | | [address] | | | | | | [place] | | | | | | [address] | | | | | | [phone] | | | | | | | | +--------+ + + + + documented as of this encounter Visit Diagnoses Not on filedocumented in this encounter"
--- OUTSIDE RECORDS SUMMARY | ~2019-11-17 | XMS | Encounter Summary ---
Demographics + + + | Address | [address] | | | [place] [address] | + + + | Home Phone [...] Team Providers + +------+ + | Care Hood Maker Name | Role | Phone | [...] 2019 | Visit | Center at [facility] | ACNP [address] | gastric bypass | | | | [address] | Ave [place], [place] | (Primary Dx); | | | | for Health and | [address] | History of | | | | [facility], [address] | | laparoscopic | | | | [facility] [place] | | cholecystectomy; | | | | [address] | | Vitamin D | | | [...] encounter Patient Instructions Patient Instructions Mehreen Koenig, [facility] - 10/02/2018 2:20 PM PDTHair [...] cium, dairy or acid reducers) Calcium citrate 1904-8177 mg per day with vitamin D 1000 [...] different f rom the original. BARIATRIC FOLLOW-UP Maira De Jesus Anna is a 27 y.o. patient who underwent a Andreia en y gastric bypass and latricia 09.24.2018. This is her first post op visit. She had a routine 2 day hospital stay post op. She is here with her and 2 grade school children. She met with the supervisory examiner prior to this appointment. ON 09.27.2018 She [...] Doxycycline Rash Percocet [Oxycodone-Acetaminophen] Nausea and Vomiting Bolton Oil Hives and Nausea and Vomiting Seroquel [...] Laparoscopic andreia-en-y gastric bypass with cholecystectomy 09/24/2018 [facility] Dr. Norton Social History Socioeconomic [...] file Gets together: Not on file Attends oriental orthodox service: Not on file Active member of [...] Or two. She met previously with the supervisory examiner. 4. Itching: I added vistaril, which will [...] visit: 22 minutes Mehreen Koenig DNP, ACNP, BRAKE LINING FINISHER Regional Sales Coordinator Bariatric Surgery [facility] documented in this encounter Plan of Treatment +--------+ + + + + | Date | Type | Specialty | Care Team | Description | +--------+ + + + + | 11/17/ | Video/TeleH | Pain Management | Florencio Lockett, | | | 2019 | ealth-Sched | | PhD [address] | | | | uled | | [place], [place] | | | | | | [address] | | | | | | [phone] | | | | | | | | +--------+ + + + + | 12/01/ | Video/TeleH | Pain Management | Florencio Lockett, | | | 2019 | ealth-Sched | | PhD [address] | | | | uled | | [place], [place] | | | | | | [address] | | | | | | [phone] | | | | | | | | +--------+ + + + + | 01/06/ | Office | Plastic Surgery | Kuldip Harrell MD | | 2019 | Visit | | [address] | | | | | | [place], [place] | | | | | | [address] | | | | | | [phone] | | | | | | | [...]
--- OUTSIDE RECORDS SUMMARY | ~2019-11-17 | XMS | Encounter Summary ---
Demographics + + + | Address | [address] | | | [place] [address] | + + + | Home Phone [...] + +------+ + | Care Small Business Banking Officer Name | Role | Phone | [...] | 2020 | Encounter | Center at [facility] [address] | | | | | | [facility] | | | | | | for Health and | | | | | | Healing, [address] | | | | | | [place], [place] | | | | | | [address] | | | | | | [phone] | | | +--------+ + + + [...] | | | | uled | | [place], [place] | | | | | | [address] | | | | | | [phone] | | | | | | | | +--------+ + + + + | 12/01/ | Video/TeleH | Pain Management | Florencio Lockett, | | | 2019 | ealth-Sched | | PhD [address] | | | | uled | | [place], [place] | | | | | | [address] | | | | | | [phone] | | | | | | | | +--------+ + + + + | 01/06/ | Office | Plastic Surgery | Kuldip Harrell MD | | | 2020 | Visit | | [address] | | | | | | [place] | | | | | | [address] | | | | | | [phone] | | | | | | | | +--------+ + + + + documented as of this encounter Visit Diagnoses Not on filedocumented in this encounter"
--- OUTSIDE RECORDS SUMMARY | ~2019-11-17 | XMS | Encounter Summary ---
Demographics + + + | Address | [address] | | | [place] [address] | + + + | Home Phone [...] Team Providers + +------+ + | Care Banana Ripening Room Supervisor Name | Role | Phone | + +------+ + | Alisha Stovall PA-C | PCP | | + +------+ + Encounter Details +--------+ + + + + | Date | Type | Department | Care Team | Description | +--------+ + + + + | 02/12/ | Abstract | Cardiology | Sarah Barba | | | 2018 | | Preventive at [facility] | SHANICE Villafuerte [address] | | | | | [address] | [address] [place], | | | | | [facility] | [place] [address] | | | | | and [place], | [phone] | | | | | Building [address] | | | | | | [place], [place] | | | | | | [address] | | | | | | [phone] | | | +--------+ + + + [...] | | | | uled | | [place], [place] | | | | | | [address] | | | | | | [phone] | | | | | | | | +--------+ + + + + | 12/01/ | Video/TeleH | Pain Management | Florencio Lockett, | | | 2019 | ealth-Sched | | PhD [address] | | | | uled | | [place], [place] | | | | | | [address] | | | | | | [phone] | | | | | | | | +--------+ + + + + | 01/06/ | Office | Plastic Surgery | Kuldip Harrell MD | | | 2019 | Visit | | [address] | | | | | | [place] | | | | | | [address] | | | | | | [phone] | | | | | | | | +--------+ + + + + documented as of this encounter Visit Diagnoses Not on filedocumented in this encounter"
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
--- OUTSIDE RECORDS SUMMARY | ~2019-11-17 | XMS | Encounter Summary ---
Demographics + + + | Address | [address] | | | [place] [address] | + + + | Home Phone [...] Team Providers + +------+ + | Care Pastrycook'S Assistant Name | Role | Phone | [...] | | [address] | [place], [place] | | | | | for Health and | [address] | | | | | Healing, [address] | [phone] | | | | | [place], [place] | | | | | | [address] | | | | | | | [...] | | | | uled | | [place], [place] | | | | | | [address] | | | | | | [phone] | | | | | | | | +--------+ + + + + | 12/01/ | Video/TeleH | Pain Management | Florencio Lockett, | | | 2019 | ealth-Sched | | PhD [address] | | | | uled | | [place], [place] | | | | | | [address] | | | | | | [phone] | | | | | | | | +--------+ + + + + | 01/06/ | Office | Plastic Surgery | Kuldip Harrell MD | | | 2020 | Visit | | [address] | | | | | | [place] | | | | | | [address] | | | | | | [phone] | | | | | | | | +--------+ + + + + documented as of this encounter Visit Diagnoses Not on filedocumented in this encounter"
--- OUTSIDE RECORDS SUMMARY | ~2019-11-17 | XMS | Encounter Summary ---
Demographics + + + | Address | [address] | | | [place] [address] | + + + | Home Phone [...] Team Providers + +------+ + | Care Baseball Winder Name | Role | Phone | [...] | Encounter | Center at [facility] [address] | | support group | | | | [address] [place] | | | | | | for Health and | | | | | | Healing, [address] | | | | | | [place], [place] | | | | | | [address] | | | | | | [phone] | | | +--------+ + + + [...] | | | | uled | | [place], [place] | | | | | | [address] | | | | | | [phone] | | | | | | | | +--------+ + + + + | 12/01/ | Video/TeleH | Pain Management | Florencio Lockett, | | | 2019 | ealth-Sched | | PhD [address] | | | | uled | | [place], [place] | | | | | | [address] | | | | | | [phone] | | | | | | | | +--------+ + + + + | 01/06/ | Office | Plastic Surgery | Kuldip Harrell MD | | | 2019 | Visit | | [address] | | | | | | [place], [place] | | | | | | [address] | | | | | | [phone] | | | | | | | | +--------+ + + + + documented as of this encounter Visit Diagnoses Not on filedocumented in this encounter"
--- OUTSIDE RECORDS SUMMARY | ~2019-11-17 | XMS | Encounter Summary ---
Demographics + + + | Address | [address] | | | [place] [address] | + + + | Home Phone [...] [place], | | | | | [place] [address] | | + + + + + Care Team Providers + +------+ + | Care Machining Manager Name | Role | Phone | [...] | Visit | HOSPITAL NEUROLOGY | Matt, SKIN FITTER [address] | without aura and | | | | CLINIC [address] | [address] [facility], | without status | | | | [address] [place], | [place] [address] | migrainosus | | | | [place] [address] | [phone] | | | | | [phone] | | | +--------+---------+ + + + [...] before each headache. Show this to your [facility] provider to help find the cause of [...] Difficulty talking or seeing Date Last Reviewed: 11/23/201519993636-4104 [employer]. [address] [place] [address], [place] [address]. All righ ts reserved. This information is [...] out of the light. Wear dark glasses, shank turner lights, and close the curtains. When outdoors, [...] changes dur ing menstruation. Date Last Reviewed: 03/24/201719990054-6662 [employer]. [address] [place] [address], [place] [address]. All righ ts reserved. This information is [...] headaches in a woman Date Last Reviewed: 04/24/201719992895-2605 [employer]. [address] [place] [address]. All [facility] ts reserved. This information is not intended as a substitute for professional medical care. Always follow your healthcare professional's instructions. documented in this encounter Progress Notes Matt Mccormick FNP - 10/09/2018 8:15 AM PDT Patient: Maria De Jesus Anna Medical Record: [id number] Date of Services: 10/09/2018 Referring Doctor: Alisha [...] are intact. There is no dysmetria on ipkkpe-xg-jcpl and nnsa-ngdk-mbky. There are no abnormal or extraneous movements. [...] least 30 minutes three times a w [place] will help reduce frequency or severity of [...] [place] | | | | | | [address] | | | | | | [phone] | | | | | | | | +--------+---------+ + + + | 12/01/ | Office | Cardiology | Kathy Nadege | | | 2020 | Visit | | [address] | | | | | | [address] | | | | | | [place] [address] | | | | | | [phone] | | | | | | | [...]
--- OUTSIDE RECORDS SUMMARY | ~2019-11-17 | XMS | Encounter Summary ---
[...] Providers + +------+ + | Care Product Steward Name | Role | Phone | + [...] | | | | [address] | | [place], [place] | | | | | | [address] | | | | | | [phone] | | | | | | | | +--------+ + + + + | 12/01/ | Video/TeleH | Pain Management | Florencio Lockett, | | | 2019 | ealth-Sched | | PhD [address] | | | | uled | | [place], [place] | | | | | | [address] | | | | | | [phone] | | | | | | | | +--------+ + + + + | 01/06/ | Office | Plastic Surgery | Kuldip Harrell MD | | | 2019 | Visit | | [address] | | | | | | [place], [place] | | | | | | [address] | | | | | | [phone] | | | | | | | | +--------+ + + + + documented as of this encounter Visit Diagnoses Not on filedocumented in this encounter"
--- OUTSIDE RECORDS SUMMARY | ~2019-11-17 | XMS | Encounter Summary ---
Demographics + + + | Address | [address] | | | [place] [address] | + + + | Home Phone [...] Team Providers + +------+ + | Care Infrastructure Design Engineer Name | Role | Phone | [...] | | | for Health and | [address] | | | | | Healing, [address] | [phone] | | | | | [place], [place] | | | | | | [address] | | | | | | | [...] | | | | uled | | [place], [place] | | | | | | [address] | | | | | | [phone] | | | | | | | | +--------+ + + + + | 12/01/ | Video/TeleH | Pain Management | Florencio Lockett, | | | 2019 | ealth-Sched | | PhD [address] | | | | uled | | [place], [place] | | | | | | [address] | | | | | | [phone] | | | | | | | | +--------+ + + + + | 01/06/ | Office | Plastic Surgery | Kuldip Harrell MD | | | 2020 | Visit | | [address] | | | | | | [place], [place] | | | | | | [address] | | | | | | [phone] | | | | | | | | +--------+ + + + + documented as of this encounter Visit Diagnoses Not on filedocumented in this encounter"
[~2019-11-17 17:51] MED LIST changes: +AUGMENTIN 875-1 EACH PO; +ZITHROMAX250 MG PO
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
[2019-11-17] MEDS ORDERED: ZOFRAN4 MG PO (19:02)
[2019-11-17] MEDS ORDERED: NORCO 10-325 T1 EACH PO (19:02)
== END 2019-11-17 19:11 | disposition home or self-care (01) ==
LOC: ED 17:51
DX: S80.12XA Contusion of left lower leg, initial encounter (principal); J45.909 Unspecified asthma, uncomplicated; K21.9 Gastro-esophageal reflux disease without esophagitis; F41.9 Anxiety disorder, unspecified; F32.9 Major depressive disorder, single episode, unspecified; Z88.1 Allergy status to other antibiotic agents; Z88.6 Allergy status to analgesic agent; Z88.8 Allergy status to other drugs, medicaments and biological substances; Z79.899 Other long term (current) drug therapy; V43.62XA Car passenger injured in collision with other type car in traffic accident, initial encounter
CPT/HCPCS: 73590; 99283-25

== ENCOUNTER 2020-03-30 15:30 | Emergency (ER) | payer OTHER ==
[~2020-03-30] VITALS: Ht 180.3 cm; Wt 103.4 kg
[~2020-03-30 15:30] MED LIST changes: +NORCO 10-325 T1 EACH PO
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
[2020-03-30] MEDS ORDERED: METRONIDAZOLE500 MG PO (15:48)
[2020-03-30] MEDS ORDERED: PREDNISONE20 MG PO (17:51)
[2020-03-30] MEDS ORDERED: NORCO 5-325 TA1 EACH PO (17:51)
--- NOTE | 2020-03-31 16:51 | EKG ---
[facility] [address] [facility] [place] [address] Signed Sinus bradycardia Cannot rule out Anterior infarct , age undetermined Abnormal ECG When compared with ECG of 09-NOV-2019 16:16, Vent. rate has decreased BY 28 BPM Confirmed by MARTIN TEMPLETON MD ([id number]) on 03/31/2020 4:51:44 PM Electronically Signed By: MARTIN TEMPLETON MD 03/31/20 165 PATIENT NAME: GAVI ALVA Electrocardiogram DATE OF : 86 PHYSICIAN: MARTIN TEMPLETON MD REPORT #: [id number] REPORT IS CONFIDENTIAL AND NOT TO BE RELEASED WITHOUT AUTHORIZATION
== END 2020-03-30 18:15 | disposition home or self-care (01) ==
LOC: ED 15:30
DX: M94.0 Chondrocostal junction syndrome [Tietze] (principal); K21.9 Gastro-esophageal reflux disease without esophagitis; J45.909 Unspecified asthma, uncomplicated; G43.909 Migraine, unspecified, not intractable, without status migrainosus; Z88.1 Allergy status to other antibiotic agents; Z88.8 Allergy status to other drugs, medicaments and biological substances; Z88.5 Allergy status to narcotic agent; Z79.899 Other long term (current) drug therapy
CPT/HCPCS: 71046; 80053; 83735; 84484; 85025; 93005; 93010; 99285-25

== ENCOUNTER 2020-07-29 04:03 | Emergency (ER) | payer OTHER ==
[~2020-07-29] VITALS: Ht 180.3 cm; Wt 111.0 kg
[~2020-07-29 04:03] MED LIST changes: +METRONIDAZOLE500 MG PO
--- OUTSIDE RECORDS SUMMARY | 2020-07-29 04:06 | XMS ---
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 TOTAL 6 NOTE: Visits indicate total known visits. ED/UCC VISIT TRACKING (12 MO.) 07/29/2020 04:04 [facility] [place] TYPE: Emergency COMPLAINT: - FEVER,ABDOMINAL PAIN 03/30/2020 15:30 [facility] [place] TYPE: Emergency COMPLAINT: - CHEST PAIN, SOB DIAGNOSES: - Unspecified asthma, uncomplicated - Allergy status to narcotic agent - Allergy status to narcotic agent - Gastro-esophageal reflux disease without esophagitis - Allergy status to other drugs, medicaments and biological substances - Chondrocostal junction syndrome [Tietze] - Allergy status to other drugs, medicaments and biological substances - Allergy status to other antibiotic agents - Other chest pain - Other adjunct faculty for medical terminology (current) drug therapy - Allergy status to other antibiotic agents - Migraine, unspecified, not intractable, without status migrainosus 11/17/2019 17:51 [facility] [place] TYPE: Emergency [...] status to other antibiotic agents - Other fdc (current) drug therapy - Anxiety disorder, unspecified - Pain in left lower leg - Allergy status to other drugs, medicaments and biological substances 11/09/2019 15:30 [facility] [place] TYPE: Emergency COMPLAINT: - FEVER, CHILLS, HEADACHE DIAGNOSES: - Gastro-esophageal reflux disease without esophagitis - Pneumonia, unspecified organism - Contact with and (suspected) exposure to other viral communicable diseases - Fever, unspecified - Allergy status to analgesic agent - Allergy status to other drugs, medicaments and biological substances - Unspecified asthma, uncomplicated - Other fdc (current) drug therapy - Migraine, unspecified, not intractable, without status migrainosus - Major depressive disorder, single episode, unspecified - Anxiety disorder, unspecified 11/06/2019 02:39 [facility] [place] TYPE: Emergency COMPLAINT: - HEADACHE DIAGNOSES: - Allergy status to narcotic agent - Allergy status to other antibiotic agents - Other adjunct faculty for medical terminology (current) drug therapy - Gastro-esophageal reflux disease [...] status to other antibiotic agents - Other fdc (current) drug therapy - Major depressive disorder, single episode, unspecified INPATIENT VISIT TRACKING (12 MO.) No inpatient visits to display in this time frame [email or web address]
[2020-07-29] MEDS ORDERED: GABAPENTIN300 MG PO (04:29)
[2020-07-29] MEDS ORDERED: AMITRIPTYLINE H50 MG PO (04:29)
[2020-07-29] MEDS ORDERED: DILAUDID2 MG PO (04:30)
[2020-07-29] MEDS ORDERED: TYLOPHEN500 MG PO (04:30)
[2020-07-29] MEDS ORDERED: CEPHALEXIN500 MG PO (06:28)
== END 2020-07-29 07:20 | disposition home or self-care (01) ==
LOC: ED 04:03
DX: T81.43XA Infection following a procedure, organ and space surgical site, initial encounter (principal); J45.909 Unspecified asthma, uncomplicated; K21.9 Gastro-esophageal reflux disease without esophagitis; G43.909 Migraine, unspecified, not intractable, without status migrainosus; Z88.1 Allergy status to other antibiotic agents; Z88.8 Allergy status to other drugs, medicaments and biological substances; Z91.048 Other nonmedicinal substance allergy status; Z79.899 Other long term (current) drug therapy
CPT/HCPCS: 80053; 81001; 83605; 85025; 96365; 96375; 99284-25; J0696; J1170; J7030

== ENCOUNTER 2020-08-30 01:17 | Emergency (ER) | payer OTHER ==
[~2020-08-30] VITALS: Ht 182.9 cm; Wt 104.3 kg
[~2020-08-30 01:17] MED LIST changes: +AMITRIPTYLINE H50 MG PO; +CEPHALEXIN500 MG PO; +DILAUDID2 MG PO; +GABAPENTIN300 MG PO; +TYLOPHEN500 MG PO
--- OUTSIDE RECORDS SUMMARY | 2020-08-30 01:20 | XMS ---
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 TOTAL 6 NOTE: Visits indicate total known visits. ED/UCC VISIT TRACKING (12 MO.) 08/30/2020 01:18 [facility] [place] TYPE: Emergency COMPLAINT: - SKIN INFECTION 07/29/2020 04:04 [facility] [place] TYPE: Emergency COMPLAINT: - FEVER,ABDOMINAL PAIN DIAGNOSES: - Other nonmedicinal substance allergy status - Allergy status to other antibiotic agents - Allergy status to other drugs, medicaments and biological substances - Other group home (current) drug therapy - Fever, unspecified - Unspecified asthma, uncomplicated - Infection following a procedure, organ and space surgical site, initial encounter - Gastro-esophageal reflux disease without esophagitis - Migraine, unspecified, not intractable, without status migrainosus 03/30/2020 15:30 [facility] [place] TYPE: Emergency [...] agents - Other chest pain - Other group home (current) drug therapy - Allergy status [...] status to other antibiotic agents - Other intermediate project manager (current) drug therapy - Anxiety disorder, unspecified - Pain in left lower leg - Allergy status to other drugs, medicaments and biological substances 11/09/2019 15:[address] [facility] [place] TYPE: Emergency COMPLAINT: - FEVER, CHILLS, HEADACHE DIAGNOSES: - Gastro-esophageal reflux disease without esophagitis - Pneumonia, unspecified organism - Contact with and (suspected) exposure to other viral communicable diseases - Fever, unspecified - Allergy status to analgesic agent - Allergy status to other drugs, medicaments and biological substances - Unspecified asthma, uncomplicated - Other intermediate project manager (current) drug therapy - Migraine, unspecified, not intractable, without status migrainosus - Major depressive disorder, single episode, unspecified - Anxiety disorder, unspecified 11/06/2019 02:39 [facility] [place] TYPE: Emergency COMPLAINT: - HEADACHE DIAGNOSES: - Allergy status to narcotic agent - Allergy status to other antibiotic agents - Other group home (current) drug therapy - Gastro-esophageal reflux disease without esophagitis - Headache - Allergy status to analgesic agent - Major depressive disorder, single episode, unspecified - Anxiety disorder, unspecified - Unspecified asthma, uncomplicated - Allergy status to other drugs, medicaments and biological substances INPATIENT VISIT TRACKING (12 MO.) No inpatient visits to display in this time frame [email or web address]
[2020-08-30] MEDS ORDERED: FOLIC ACID0.8 M1 PO (01:40)
[2020-08-30] MEDS ORDERED: CEPHALEXIN500 MG PO (02:03)
[2020-08-30] MEDS ORDERED: HYDROCODON-ACE1 EA10 PO (02:03)
== END 2020-08-30 02:17 | disposition home or self-care (01) ==
LOC: ED 01:17
DX: L76.82 Other postprocedural complications of skin and subcutaneous tissue (principal); J45.909 Unspecified asthma, uncomplicated; K21.9 Gastro-esophageal reflux disease without esophagitis; G43.909 Migraine, unspecified, not intractable, without status migrainosus; Z88.8 Allergy status to other drugs, medicaments and biological substances; Z88.1 Allergy status to other antibiotic agents
CPT/HCPCS: 99283

== ENCOUNTER 2021-03-11 12:21 | Emergency (ER) | payer OTHER ==
[~2021-03-11] VITALS: Ht 182.9 cm; Wt 104.3 kg
[~2021-03-11 12:21] MED LIST changes: +FOLIC ACID0.8 M1 PO; +HYDROCODON-ACE1 EA10 PO
[2021-03-11] MEDS ORDERED: VITAMIN B COMP1 EAC1 PO (13:22)
[2021-03-11] MEDS ORDERED: VITAMIN D325 MC2 PO (13:22)
[2021-03-11] MEDS ORDERED: MELATONIN10 M2 PO (13:22)
[2021-03-11] MEDS ORDERED: MULTIVITAMINS1 EAC8 PO (13:23)
[2021-03-11] MEDS ORDERED: PHENTERMINE H37.5 M1 PO (13:24)
== END 2021-03-11 14:45 | disposition home or self-care (01) ==
LOC: ED 12:21
DX: R20.9 Unspecified disturbances of skin sensation (principal); J45.909 Unspecified asthma, uncomplicated; K21.9 Gastro-esophageal reflux disease without esophagitis; Z88.1 Allergy status to other antibiotic agents; Z88.6 Allergy status to analgesic agent; Z88.8 Allergy status to other drugs, medicaments and biological substances; Z91.09 Other allergy status, other than to drugs and biological substances; Z79.899 Other long term (current) drug therapy
CPT/HCPCS: 80053; 84443; 85025; 99284

== ENCOUNTER 2021-06-18 11:53 | Emergency (ER) | payer OTHER ==
[~2021-06-18] VITALS: Ht 182.9 cm; Wt 104.3 kg
[~2021-06-18 11:53] MED LIST changes: +MELATONIN10 M2 PO; +MULTIVITAMINS1 EAC8 PO; +PHENTERMINE H37.5 M1 PO; +VITAMIN B COMP1 EAC1 PO; +VITAMIN D325 MC2 PO
--- OUTSIDE RECORDS SUMMARY | 2021-06-18 11:56 | XMS ---
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 TOTAL 4 NOTE: Visits indicate total known visits. ED/UCC VISIT TRACKING (12 MO.) 06/18/2021 11:54 [facility] [place] TYPE: Emergency COMPLAINT: - HEART ISSUE 03/11/2021 12:24 [facility] [place] TYPE: Emergency COMPLAINT: - BOTH LEGS NUMBNESS,L SIDE NUMBNESS DIAGNOSES: - Unspecified asthma, uncomplicated - Other half-way (current) drug therapy - Gastro-esophageal reflux disease without esophagitis - Allergy status to other antibiotic agents - Allergy status to other drugs, medicaments and biological substances - Unspecified disturbances of skin sensation - Anesthesia of skin - Other allergy status, other than to drugs and biological substances - Allergy status to analgesic agent 08/30/2020 01:18 [facility] [place] TYPE: Emergency COMPLAINT: - SKIN INFECTION DIAGNOSES: - Gastro-esophageal reflux disease without esophagitis - Migraine, unspecified, not intractable, without status migrainosus - Other postprocedural complications of skin and subcutaneous tissue - Allergy status to other drugs, medicaments and biological substances - Unspecified asthma, uncomplicated - Allergy status to other antibiotic agents 07/29/2020 04:04 [facility] [place] TYPE: Emergency COMPLAINT: - FEVER,ABDOMINAL PAIN DIAGNOSES: - Other nonmedicinal substance allergy status - Allergy status to other antibiotic agents - Allergy status to other drugs, medicaments and biological substances - Other half-way (current) drug therapy - Fever, unspecified - Unspecified asthma, uncomplicated - Infection following a procedure, organ and space surgical site, initial encounter - Gastro-esophageal reflux disease without esophagitis - Migraine, unspecified, not intractable, without status migrainosus INPATIENT VISIT TRACKING (12 MO.) No inpatient visits to display in this time frame [email or web address]
[2021-06-18] MEDS ORDERED: NEURONTIN300 MG PO (12:07)
--- NOTE | 2021-06-19 17:33 | EKG ---
[facility] [address] [facility] [place] [address] Signed Normal sinus rhythm Inferior infarct , age undetermined Abnormal ECG When compared with ECG of 30-MAR-2020 16:16, Vent. rate has increased BY 27 BPM Confirmed by JAHAIRA GR DO ([id number]) on 06/19/2021 5:32:55 PM Electronically Signed By: JAHAIRA GR DO 06/19/21 1733 PATIENT NAME: ARTIEGAVI Electrocardiogram DATE OF : 86 PHYSICIAN: JAHAIRA GR DO REPORT #: [id number] REPORT IS CONFIDENTIAL AND NOT TO BE RELEASED WITHOUT AUTHORIZATION
== END 2021-06-18 14:20 | disposition home or self-care (01) ==
LOC: ED 11:53
DX: R07.9 Chest pain, unspecified (principal); G43.909 Migraine, unspecified, not intractable, without status migrainosus; J45.909 Unspecified asthma, uncomplicated; K21.9 Gastro-esophageal reflux disease without esophagitis; Z79.899 Other long term (current) drug therapy; Z88.8 Allergy status to other drugs, medicaments and biological substances; Z88.1 Allergy status to other antibiotic agents; Z91.09 Other allergy status, other than to drugs and biological substances
CPT/HCPCS: 36415; 71046; 84484; 85025; 93005; 93010; 96374; 99285-25; A9270; J0780; J1885

== ENCOUNTER 2021-07-25 06:00 | Emergency (ER) | payer OTHER ==
[~2021-07-25] VITALS: Ht 182.9 cm; Wt 104.3 kg
[~2021-07-25 06:00] MED LIST changes: +NEURONTIN300 MG PO
--- OUTSIDE RECORDS SUMMARY | 2021-07-25 06:04 | XMS ---
PreManage Notification: GAVI ALVA Security Fishing Hand Events No recent Security Events currently on file CRITERIA MET - [facility] CARE PROVIDERS BHAVIN MCDANIEL Physician Rhinologist Current PHONE: [phone] LAKIA AGRAWAL Nurse Practitioner: Acute Care 06/17/2019-Current PHONE: [phone] Care Guidelines exist for the following facilities: Betty Overton ( 06/08/2020 ) [place] VISIT COUNT (12 MO.) [address] [facility] TOTAL 5 NOTE: Visits indicate total known visits. ED/UCC VISIT TRACKING (12 MO.) 07/25/2021 06:01 [facility] [place] TYPE: Emergency COMPLAINT: - NOSE BLEEDS, SORE THROAT 06/18/2021 11:54 [facility] [place] TYPE: Emergency COMPLAINT: - HEART ISSUE DIAGNOSES: - Migraine, unspecified, not intractable, without status migrainosus - Chest pain, unspecified - Other allergy status, other than to drugs and biological substances - Allergy status to other antibiotic agents - Gastro-esophageal reflux disease without esophagitis - Unspecified asthma, uncomplicated - Other assisted (current) drug therapy - Allergy status to other drugs, medicaments and biological substances 03/11/2021 12:24 [facility] [place] TYPE: Emergency COMPLAINT: - BOTH LEGS NUMBNESS,L SIDE NUMBNESS DIAGNOSES: - Unspecified asthma, uncomplicated - Other intermission coordinator (current) drug therapy - Gastro-esophageal reflux disease [...] drugs, medicaments and biological substances - Other intermission coordinator (current) drug therapy - Fever, unspecified - Unspecified asthma, uncomplicated - Infection following a procedure, organ and space surgical site, initial encounter - Gastro-esophageal reflux disease without esophagitis - Migraine, unspecified, not intractable, without status migrainosus INPATIENT VISIT TRACKING (12 MO.) No inpatient visits to display in this time frame [email or web address]
--- NOTE | 2021-07-25 08:03 | EKG ---
[facility] [address] [facility] [place], [place] [address] Signed Normal sinus rhythm Normal ECG No previous ECGs available Confirmed by RASHEL NGUYEN MD ([id number]) on 07/25/2021 8:03:02 AM Electronically Signed By: RASHEL NGUYEN MD 07/25/21 0803 PATIENT NAME: GAVI ALVA Electrocardiogram DATE OF : 86 PHYSICIAN: RASHEL NGUYEN MD REPORT #: [id number] REPORT IS CONFIDENTIAL AND NOT TO BE RELEASED WITHOUT AUTHORIZATION
== END 2021-07-25 09:20 | disposition home or self-care (01) ==
LOC: ED 06:00
DX: J02.9 Acute pharyngitis, unspecified (principal); R04.0 Epistaxis; J45.909 Unspecified asthma, uncomplicated; K21.9 Gastro-esophageal reflux disease without esophagitis; G43.909 Migraine, unspecified, not intractable, without status migrainosus; Z91.09 Other allergy status, other than to drugs and biological substances; Z88.1 Allergy status to other antibiotic agents; Z88.6 Allergy status to analgesic agent; Z88.8 Allergy status to other drugs, medicaments and biological substances; Z91.018 Allergy to other foods; Z79.899 Other long term (current) drug therapy
CPT/HCPCS: 36415; 70360; 71045; 85025; 87880; 93005; 93010; 99284-25; U0003